=== PATIENT | female | born 1955 | race Asian ===

== ENCOUNTER → 2024-04-26 | Outpatient (CLI) | payer MEDICARE, MEDICAID, SELFPAY ==
--- NOTE | 2024-04-26 14:00 | ECHO_ITS ---
Transthoracic Echo Report Ht (in): 57 Wt (lb): 200 Exam Location: Echo Lab Status: [employer] Compliance Director: Sunshine Garcia Indications: Procedure Performed: BP: / HR: Rhythm: Sinus Technical Quality: Fair MEASUREMENTS (Male / Female) Normal Values 2D ECHO LV Diastolic Diameter PLAX 4.5 cm 4.2 - 5.9 / 3.9 - 5.3 cm LV Systolic Diameter PLAX 3.2 cm IVS Diastolic Thickness 1.2 cm 0.6 - 1.0 / 0.6 - 0.9 cm LVPW Diastolic Thickness 1.2 cm 0.6 - 1.0 / 0.6 - 0.9 cm LV Relative Wall Thickness 0.5 LVOT Diameter 1.9 cm LA Volume Index 25.9 cm?/m? 16 - 28 cm?/m? Ascending Aorta Diameter 3.4 cm M-MODE Aortic Root Diameter MM 3.0 cm LA Systolic Diameter MM 3.6 cm LA Ao Ratio MM 1.2 AV Cusp Separation MM 2.1 cm DOPPLER AV Peak Velocity 183.7 cm/s AV Peak Gradient 13.5 mmHg AV Mean Gradient 7.3 mmHg AV Velocity Time Integral 32.7 cm AI Peak Velocity 349.0 cm/s AI Peak Gradient 48.7 mmHg AI Pressure Half Time 506.0 ms LVOT Peak Velocity 134.0 cm/s LVOT Peak Gradient 7.2 mmHg LVOT Velocity Time Integral 22.3 cm AV Area Cont Eq vti 1.9 cm? AV Area Cont Eq pk 2.1 cm? MV Peak Velocity 189.0 cm/s MV Peak Gradient 14.3 mmHg MV Mean Velocity 114.7 cm/s MV Mean Gradient 6.3 mmHg MV Area PHT 3.5 cm? MR Peak Velocity 458.0 cm/s MR Peak Gradient 83.9 mmHg Mitral E Point Velocity 107.0 cm/s Mitral A Point Velocity 152.0 cm/s Mitral E to A Ratio 0.7 LV E' Lateral Velocity 3.7 cm/s Mitral E to LV E' Lateral Ratio 28.9 LV E' Septal Velocity 4.6 cm/s Mitral E to LV E' Septal Ratio 23.4 TR Peak Velocity 222.5 cm/s TR Peak Gradient 19.8 mmHg FINDINGS Left Ventricle Normal left ventricular size, systolic function with no obvious regional wall motion abnormalities. Mild LVH. The ejection fraction is visually estimated at 60-65%. Right Ventricle The right ventricle is normal in size and systolic function. The estimated right ventricular systoli c pressure, 29mmHg. RAP 5. Left Atrium The left atrium is normal by two-dimensional, color flow and Doppler imaging with no structural abnormalities, no thrombus formation present. Right Atrium The right atrium is normal by two-dimensional imaging, color flow and Doppler imaging with no struct ural abnormalities, no thrombus formation present. Atrial Septum The interatrial septum appears normal with no evidence of a shunt. Aorta The aorta is normal by two-dimensional, color flow and Doppler interrogation. Mitral Valve The mitral valve is moderately MAC. Mild to moderate stenosis, mean gradient 8mmHg. There is mild mi tral valve regurgitation. Aortic Valve The aortic valve is trileaflet. Mild sclerosis without stenosis. There is mild aortic valve regurgit ation. Tricuspid Valve The tricuspid valve is normal by two-dimensional, color flow and Doppler interrogation. There is mil d tricuspid valve regurgitation. Pulmonic Valve There is no significant pulmonic valve regurgitation. Vessels The pulmonary artery appears normal. The inferior vena cava pulmonary and hepatic veins appear rehana l. Pericardium The pericardium is normal by two-dimensional imaging. There is no significant pericardial effusion. CONCLUSIONS Normal LV size and function. Mild LVH. Estimated EF 60-65% Normal RV size and function. Mild to moderate mitral valve stenosis, mean gradient 8mmHg. Moderate MAC. Mild AI, MR, TR. Mild AV sclerosis without stenosis. Bonifacio Bocanegra (Electronically Signed) Final Date: 30 April 2024 10:12
== END | disposition home or self-care (01) ==
LOC: SDIM 05-01 08:37
PROVIDERS: PCP Student in an Organized Health Care Education/Training Program; Referring Provider Student in an Organized Health Care Education/Training Program; Visit Provider Student in an Organized Health Care Education/Training Program
DX: I08.3 Combined rheumatic disorders of mitral, aortic and tricuspid valves (principal)
CPT/HCPCS: 93306

== ENCOUNTER 2024-05-13 04:23 | Inpatient (IN) | payer MEDICARE, MEDICAID, SELFPAY ==
--- NOTE | 2019-06-20 00:02 | XR_ITS ---
Examination: Video esophagram Modified barium swallow 73 spot fluoroscopic soft tissue films of the neck Exam date and time: June 20, 2024 1345 hours INDICATIONS: Coughing with eating, difficulty eating this month TECHNIQUE AND FINDINGS: Barium mixture is administered, thin barium, pudding, cracker barium Reduced oral control Premature transfer Pooling in the vallecular region No pharyngeal penetration or aspiration IMPRESSION: No pharyngeal penetration or aspiration Fluoroscopy 0.1 minute radiation dose 34.04 milligray, 73 spot fluoroscopic films soft tissue lateral of the neck [facility]
[2024-05-13] VITALS (20 sets, daily range): BP systolic 65–150; BP diastolic 38–97; PULSE 67–115; RESP 14–33; TEMP 36.1–37.2; O2SAT 90–100; BMI 33.4
--- NOTE | 2024-05-13 | XR_ITS ---
Examinations: MRI Brain without intravenous contrast. MRA brain without intravenous contrast. MRA carotids without intravenous contrast 3-D vascular reconstructions Date and time of exam: May 13, 2024 1341 hrs. Indication: Patient found unresponsive at 3:00 AM this morning Technique: Multiple axial and sagittal images of the brain have been obtained MRA brain carotid images without contrast obtained, including 3-D postprocessing, vascular maximum intensity projection images Findings: [place] is not enlarged. The optic chiasm and infundibular stalk are not remarkable. Prepontine and interpeduncular cisterns are not enlarged. No localized enlargement of the medulla or jaylin. Fourth ventricle and cerebellar tonsils normal in position. Subacute hemorrhage is not seen. Fourth ventricle is midline. Mass in the cerebellopontine angle region is not evident. 7th and 8th nerve complexes exhibits symmetry. Globes are symmetrical with no retro-orbital mass. Increased white matter signal prominent Diffusion-weighted images demonstrate subtle increased signal in the medulla, axial image 3 although no obvious signal deficit on the corresponding ADC map Mass-effect upon the ventricular system is not identified. MRA carotid images degraded by patient motion. MRA brain images significant stenoses P1 and P2 right posterior cerebral artery segments Impression: Negative for acute hemorrhage mass effect or midline shift Equivocal restricted diffusion brain stem medullary level, diffusion image 3, recommend neurology consultation and correlation with clinical findings Significant stenoses right P1 and P2 segments posterior cerebral artery
--- NOTE | 2024-05-13 04:29 | EKG_ITS ---
[facility] Test Date: 2024-05-13 Pat Name: SALEEM SIMON Department: Room: - Gender: Female [facility]: : 1955 Requested By: Arabella Urban Order Number: [id number] Reading MD: Arabella Urban Measurements Intervals [place] Rate: 102 P: 90 VT: 170 QRS: -29 QRSD: 90 T: 121 QT: 327 QTc: 427 Interpretive Statements SINUS TACHYCARDIA BORDERLINE LEFT AXIS DEVIATION [QRS AXIS < -20] LEFT VENTRICULAR HYPERTROPHY AND ST-T CHANGE [VOLTAGE CRITERIA PLUS ST/T ABNORMALITY] Compared to ECG 11/16/2023 15:12:38 Atrial flutter no longer present ST (T wave) deviation still present /store/S0/[id number].pdf
--- NOTE | 2024-05-13 05:10 | XR_ITS ---
Examination: AP chest single view Technique one AP portable upright chest single view Exam date and time: May 13, 2024 0535 hrs. Indications: Chest pain chills today Findings: Mild enlargement cardiac contour Mild vascular congestion. Suspicious for early pneumonia right base Impression: Suspicious for early pneumonia right base
--- NOTE | 2024-05-13 05:11 | EDNOTE_ITS ---
ED Syncope RME/HPI General Chief Complaint: General Adult/Misc Complain Stated Complaint: GENERAL WEAKNESS Time Seen by Provider: 05/13/24 05:09 Arrival date/time: 05/13/24 04:23 RME / HPI RME / HPI narrative: 69-year-old female patient found by her daughter on the ground to the side of her bed, unable to get up. Daughter called EMS. Son is at bedside. He states the patient has a history of ulcers Related Data Previous Rx's ?Medication ?Instructions ?Recorded amiodarone 200 mg tablet 200 mg PO BID 30 days #60 tabs 06/08/24 apixaban 5 mg tablet (Eliquis) 5 mg PO BID 30 days #60 tabs 06/08/24 dronabinol 5 mg capsule 5 mg PO BID 30 days #60 caps 06/08/24 fluconazole 200 mg tablet 400 mg (2 x 200 mg) PO QDAY 3 days 06/08/24 #6 tabs hydrocodone 5 mg-acetaminophen 325 1 tab PO Q8H PRN pain #14 tabs 06/08/24 mg tablet insulin glargine-yfgn 100 unit/mL 12 unit (0.12 mL) subcut QDAY #15 06/08/24 (3 mL) subcutaneous pen mL midodrine 5 mg tablet 5 mg PO TID 30 days #90 tabs 06/08/24 pantoprazole 40 mg tablet,delayed 40 mg PO BID #60 tabs 06/08/24 release (Protonix) pen needle, diabetic 29 gauge x #100 ea 06/08/24 1/2 (1st Tier Unifine Pentips) Allergies Allergy/AdvReac Type Severity Reaction Status Date / Time No Known Allergies Allergy Verified 05/28/24 22:16 ED Exam Narrative Physical exam: Gen: appears mildly somnolent and confused HEENT: NCAT, PERRL, EOMI CV: s1s1 RRR LUNGS: tachypnea, mild rhonci ABD: soft NT no guarding : deferred EXT: atraumatic, no edema SKIN: normal color, dry NEURO: CN II-XII grossly intact, no focal deficits Course Quality Measures none Orders Category Date Time Status Bedside COVID-19 Antigen Test NOW Care 05/13/24 06:32 Completed Bedside Influenza A&B Antigen Test NOW Care 05/13/24 06:32 Completed COVID-19 Screening Questionnaire NOW Care 05/13/24 10:[address] Screening NOW Care 05/13/24 05:[address] Screening NOW Care 05/13/24 06:31 Completed Pusher Runner NOW Care 05/13/24 05:10 Completed Decision to Admit X1 Care 05/13/24 10:14 Completed EKG (ED ONLY) *Do not use* NOW Care 05/13/24 04:29 Completed Saline [Insert IV] QSHIFT Care 05/13/24 06:30 Active Straight [In and Out Catheter] X1 Care 05/13/24 06:30 Completed Referral Speech Therapy Routine Cons 05/13/24 11:[address] abdomen pelvis w con Stat Exams 05/13/24 06:[address] angio chest Stat Exams 05/13/24 06:[address] cervical spine wo con Stat Exams 05/13/24 06:[address] facial bones wo con Stat Exams 05/13/24 06:[address] head/brain wo con Stat Exams 05/13/24 05:[address] lumbar spine wo con Stat Exams 05/13/24 06:[address] thoracic spine wo con Stat Exams 05/13/24 06:31 Completed EKG (ED Only) Stat Exams 05/13/24 04:29 Draft XR chest 1V portable Stat Exams 05/13/24 05:10 Completed ABG [Arterial Blood Gas] Stat Lab 05/13/24 08:29 Completed Amylase Stat Lab 05/13/24 06:42 Completed B-Type Natriuretic Peptide Stat Lab 05/13/24 05:15 Completed Blood Culture (Lab) Stat Lab 05/13/24 05:15 Completed CBC Stat Lab 05/13/24 05:15 Completed Comprehensive Metabolic Panel Stat Lab 05/13/24 05:15 Completed D-Dimer Stat Lab 05/13/24 06:42 Completed Lactate (Lactic Acid) Stat Lab 05/13/24 06:42 Completed Lactic Acid, 3 HR Stat Lab 05/13/24 10:26 Completed Lipase Stat Lab 05/13/24 05:15 Completed Lipase Stat Lab 05/13/24 06:42 Completed Magnesium Stat Lab 05/13/24 05:15 Completed Partial Thromboplastin Time Stat Lab 05/13/24 05:15 Completed Procalcitonin Stat Lab 05/13/24 05:15 Completed Prothrombin Time with INR Stat Lab 05/13/24 05:15 Completed RSV [Respiratory Syncytial Virus Ag] Stat Lab 05/13/24 08:48 Completed Troponin I Stat Lab 05/13/24 05:15 Completed Type and Screen Stat Lab 05/13/24 05:15 Completed Urinalysis Stat Lab 05/13/24 07:52 Completed Urine Culture Stat Lab 05/13/24 08:47 Completed Azithromycin Inj [Zithromax Inj] 500 mg Med 05/13/24 05:54 Discontinued Sodium Chloride 0.9% 250 ml [Ns] 250 ml IV X1 Insulin Regular Med 05/13/24 07:07 Discontinued 5 unit IV X1 ONE Sodium Chloride 0.9% 1000 ml [Ns] 1,000 ml Med 05/13/24 05:11 Discontinued IV 999 mls/hr cefTRIAXone [Rocephin] 1,000 mg Med 05/13/24 05:54 Discontinued Sodium Chloride 0.9% (P) [Ns 0.9% (P)] 50 ml IV X1 Vital Signs Vital signs: Vital Signs Temperature 97.3 F 05/13/24 04:35 Pulse Rate 104 H 05/13/24 04:35 Respiratory Rate 25 H 05/13/24 04:35 Blood Pressure 87/61 L 05/13/24 04:35 Pulse Oximetry (%) 92 L 05/13/24 04:35 Oxygen Delivery Method Nasal Cannula 05/13/24 04:35 Oxygen Flow Rate 5 05/13/24 04:35 Procedures -ED Phlebotomy Reason for Blood Draw by MD: RN/lab unable and MD to place line Obtained Bloods via: peripheral vein stick Additional Comments: Peripheral line 20g placed in left AC using ultrasound guidance. Tolerated well. No complications. Syncope Patient data External records reviewed:: [facility] previous records Clinical information provided by:: family Social determinants that could affect healthcare access:: none Patient has the following chronic illnesses:: HTN, CKD How is presenting disease/condition affected by chronic disease/condition?: uneffected by Evaluation data The following diagnostics were reviewed and interpreted by me:: lab results, radiology exam(s) and EKG tracing(s) Lab and/or radiology exams considered but not ordered:: none Interpretation Summary: as above Medications / Prescriptions Medications or Prescriptions considered but not ordered:: none Medication administrations:: Medication Administration History Acetaminophen (Acetaminophen 325 Mg Tablet) 650 mg PO Q6HR PRN PRN Reason: Fever >101 and pain 1-3 Stop: 07/09/24 14:10 Hydrocodone Bitart/Acetaminophen (Hydrocodone/Apap 5/325 Tablet) 1 tab PO Q4HR PRN PRN Reason: PAIN SCALE 4-10(Mod-Sev Stop: 06/14/24 14:10 Albuterol/Ipratropium (Albuterol/Ipratropium (Duoneb) Rt Jimena 3 Ml Nebu) 3 ml INH Q2HR PRN PRN Reason: SHORTNESS OF BREATH OR WHEEZE Stop: 06/26/24 18:07 Last Admin: 06/05/24 07:27 Dose: 3 ml Documented By: Admin: 06/05/24 04:32 Dose: 3 ml Documented By: Admin: 06/04/24 00:53 Dose: 3 ml Documented By: Admin: 06/04/24 00:52 Dose: 3 ml Documented By: Admin: 06/03/24 10:08 Dose: 3 ml Documented By: Admin: 06/01/24 21:43 Dose: 3 ml Documented By: Admin: 05/31/24 23:15 Dose: 3 ml Documented By: Admin: 05/31/24 02:02 Dose: 3 ml Documented By: Admin: 05/30/24 20:25 Dose: 3 ml Documented By: Admin: 05/29/24 21:09 Dose: 3 ml Documented By: Admin: 05/29/24 12:08 Dose: 3 ml Documented By: Admin: 05/28/24 09:40 Dose: 3 ml Documented By: OSWALDO Amiodarone HCl (Amiodarone Hcl 200 Mg Tablet) 200 mg PO BID ANGELICA Stop: 06/28/24 14:59 Last Admin: 06/09/24 08:47 Dose: 200 mg Documented By: Admin: 06/08/24 20:48 Dose: 200 mg Documented By: Admin: 06/08/24 11:48 Dose: Not Given Documented By: MICHEAL Non-Admin Reason: at dialysis Admin: 06/07/24 20:45 Dose: 200 mg Documented By: Admin: 06/07/24 09:37 Dose: 200 mg Documented By: Admin: 06/06/24 21:18 Dose: 200 mg Documented By: Admin: 06/06/24 11:54 Dose: 200 mg Documented By: Admin: 06/05/24 21:17 Dose: 200 mg Documented By: Admin: 06/05/24 09:22 Dose: 200 mg Documented By: Admin: 06/04/24 20:34 Dose: 200 mg Documented By: Admin: 06/04/24 09:15 Dose: 200 mg Documented By: Admin: 06/03/24 20:34 Dose: 200 mg Documented By: Admin: 06/03/24 08:59 Dose: Not Given Documented By: VRS Non-Admin Reason: NPO Admin: 06/02/24 20:23 Dose: 200 mg Documented By: Admin: 06/02/24 08:15 Dose: Not Given Documented By: MGD Non-Admin Reason: NPO Admin: 06/01/24 21:27 Dose: 200 mg Documented By: Admin: 06/01/24 12:41 Dose: 200 mg Documented By: Admin: 05/31/24 20:13 Dose: 200 mg Documented By: Admin: 05/31/24 08:49 Dose: 200 mg Documented By: Admin: 05/30/24 20:15 Dose: 200 mg Documented By: Admin: 05/30/24 07:56 Dose: 200 mg Documented By: Admin: 05/29/24 15:47 Dose: Not Given Documented By: DEMETRI Non-Admin Reason: Unable to Swallow Comments: pt lethargic Apixaban (Apixaban 2.5 Mg Tablet) 5 mg PO BID ANGELICA Stop: 07/07/24 08:59 Last Admin: 06/09/24 10:31 Dose: Not Given Documented By: MICHEAL Non-Admin Reason: Held for Procedure Admin: 06/08/24 20:48 Dose: 5 mg Documented By: Admin: 06/08/24 11:49 Dose: Not Given Documented By: MICHEAL Non-Admin Reason: at dialysis Admin: 06/07/24 20:46 Dose: 5 mg Documented By: Admin: 06/07/24 09:36 Dose: 5 mg Documented By: MYLES Benzocaine (Benzocaine/Menthol 1 Lozenge) 1 lozenge PO Q4HR PRN PRN Reason: Sore throat Stop: 06/30/24 11:52 Last Admin: 05/31/24 12:54 Dose: 1 lozenge Documented By: LAURY Dextrose (Dextrose 50%-Water Inj 50 Ml Syringe) 25 ml IV Q15MIN PRN PRN Reason: BG 50-70 responsive npo pt Stop: 06/23/24 15:42 Dextrose (Dextrose 50%-Water Inj 50 Ml Syringe) 50 ml IV Q15MIN PRN PRN Reason: BG <50 OR BG <70 & pt unresponsive Stop: 06/23/24 15:42 Dronabinol (Dronabinol 2.5 Mg Capsule) 5 mg PO BIDAC REPLACED BY [facility] Stop: 07/07/24 10:39 Last Admin: 06/09/24 07:54 Dose: 5 mg Documented By: Admin: 06/08/24 17:06 Dose: 5 mg Documented By: Admin: 06/08/24 11:45 Dose: Not Given Documented By: MICHEAL Non-Admin Reason: went to dialysis Admin: 06/07/24 17:00 Dose: Not Given Documented By: EDNA Non-Admin Reason: Not In Room Admin: 06/07/24 10:49 Dose: 5 mg Documented By: EDNA Fluconazole (Fluconazole 100 Mg Tablet) 200 mg PO QDAY REPLACED BY [facility] Stop: 06/15/24 08:59 Last Admin: 06/09/24 08:47 Dose: 200 mg Documented By: Admin: 06/08/24 12:35 Dose: 200 mg Documented By: MICHEAL Comments: given late,was at dialysis Furosemide (Furosemide Inj 10 Mg/Ml 4ml Vial) 40 mg IVP QDAY REPLACED BY [facility] Stop: 07/09/24 10:14 Last Admin: 06/09/24 11:33 Dose: 40 mg Documented By: MICHEAL Glucagon (Glucagon Inj 1 Mg Vial) 1 mg IM Q15MIN PRN PRN Reason: BG <70, and no IV access Guaifenesin (Guaifenesin Syrup 200 Mg/10 Ml Udc) 200 mg PO QID PRN; Protocol PRN Reason: COUGH OR CONGESTION Stop: 07/08/24 13:50 Last Admin: 06/09/24 05:36 Dose: 200 mg Documented By: Admin: 06/08/24 16:10 Dose: 200 mg Documented By: MICHEAL Heparin Sodium (Porcine) (Heparin Sod Inj 1000 Unit/Ml Vial 10 Ml) 3,500 unit INDWELLCAT PRN PRN PRN Reason: DIALYSIS Stop: 06/21/24 18:05 Last Admin: 06/08/24 12:07 Dose: 3,500 unit Documented By: YOSSI Co-signed By: CS Admin: 06/07/24 18:15 Dose: 3,500 unit Documented By: YOSSI(2) Co-signed By: NENA Albumin Human (Albuminar-25 Ivpb) 25 gm in 100 mls @ 100 mls/hr IV PRN PRN PRN Reason: DIALYSIS Last Admin: 06/08/24 09:04 Dose: 100 mls/hr Documented By: Infusion: 06/07/24 16:18 Dose: Infused Documented By: Admin: 06/07/24 15:18 Dose: 100 mls/hr Documented By: YOSSI(2) Insulin Glargine (Insulin Glargine (Lantus) 5 Unit/0.05 Ml (Per 5 Units)) 12 unit SC QDAY ANGELICA Stop: 06/24/24 08:59 Last Admin: 06/09/24 09:38 Dose: Not Given Documented By: MICHEAL Non-Admin Reason: NPO Admin: 06/08/24 11:48 Dose: Not Given Documented By: MICHEAL Non-Admin Reason: at dialysis Admin: 06/07/24 09:36 Dose: Not Given Documented By: MYLES Non-Admin Reason: Per Protocol Admin: 06/06/24 11:58 Dose: Not Given Documented By: EDNA Non-Admin Reason: low glucose Admin: 06/05/24 09:21 Dose: 12 unit Documented By: MELVI Co-signed By: MARKIE Admin: 06/04/24 09:16 Dose: 12 unit Documented By: SAMUEL Co-signed By: MICHEAL Admin: 06/03/24 09:02 Dose: Not Given Documented By: SAMUEL Non-Admin Reason: NPO Admin: 06/02/24 08:16 Dose: Not Given Documented By: ARIEL Non-Admin Reason: NPO Admin: 06/01/24 12:40 Dose: 12 unit Documented By: ARIEL Co-signed By: DEMETRI Admin: 05/31/24 08:49 Dose: 12 unit Documented By: LAURY Co-signed By: MARKIE Admin: 05/30/24 07:56 Dose: 12 unit Documented By: EDNA Co-signed By: ALLEN Admin: 05/29/24 11:43 Dose: Not Given Documented By: DEMETRI Non-Admin Reason: Held for Procedure Admin: 05/28/24 08:09 Dose: 12 unit Documented By: MALLORY Co-signed By: BRIAN Admin: 05/27/24 08:57 Dose: 12 unit Documented By: DEMETRI Co-signed By: RENNY Admin: 05/26/24 08:59 Dose: 12 unit Documented By: Co-signed By: EMILEE Admin: 05/25/24 11:40 Dose: 12 unit Documented By: HR Co-signed By: kristie Insulin Human Lispro (Insulin Lispro (Admelog) 1 Unit/0.01 Ml Unit) 0 unit SC Q6HR REPLACED BY [facility]; Protocol Stop: 06/23/24 17:59 Last Admin: 06/09/24 14:26 Dose: Not Given Documented By: JRR Non-Admin Reason: Medication Not Available Admin: 06/09/24 05:30 Dose: Not Given Documented By: RC Non-Admin Reason: Per Protocol Admin: 06/09/24 00:26 Dose: Not Given Documented By: RC Non-Admin Reason: Per Protocol Admin: 06/08/24 17:22 Dose: Not Given Documented By: JRR Non-Admin Reason: Per Protocol Admin: 06/08/24 12:29 Dose: Not Given Documented By: JRR Non-Admin Reason: Per Protocol Admin: 06/08/24 05:38 Dose: Not Given Documented By: RC Non-Admin Reason: Per Protocol Admin: 06/08/24 00:02 Dose: Not Given Documented By: RC Non-Admin Reason: Per Protocol Admin: 06/07/24 18:36 Dose: Not Given Documented By: WG Non-Admin Reason: Per Protocol Admin: 06/07/24 11:42 Dose: Not Given Documented By: WG Non-Admin Reason: Per Protocol Admin: 06/07/24 05:19 Dose: Not Given Documented By: WB Non-Admin Reason: Per Protocol Admin: 06/06/24 23:47 Dose: Not Given Documented By: WB Non-Admin Reason: Per Protocol Admin: 06/06/24 21:31 Dose: Not Given Documented By: WB Non-Admin Reason: not documented by day nurse. Admin: 06/06/24 11:57 Dose: Not Given Documented By: WG Non-Admin Reason: low glucose Admin: 06/06/24 05:20 Dose: Not Given Documented By: WB Non-Admin Reason: Per Protocol Admin: 06/05/24 23:56 Dose: Not Given Documented By: WB Non-Admin Reason: Per Protocol Admin: 06/05/24 17:18 Dose: Not Given Documented By: VT Non-Admin Reason: patient not eating Admin: 06/05/24 12:16 Dose: Not Given Documented By: VT Non-Admin Reason: patient no appetite Admin: 06/05/24 05:51 Dose: 2 unit Documented By: CMC Co-signed By: SATISH Admin: 06/04/24 23:29 Dose: Not Given Documented By: CCT Non-Admin Reason: Per Protocol Admin: 06/04/24 17:28 Dose: Not Given Documented By: VRS Non-Admin Reason: Per Protocol Admin: 06/04/24 12:14 Dose: 2 unit Documented By: VRS Co-signed By: ALLEN Admin: 06/04/24 05:44 Dose: 2 unit Documented By: SAMUEL(2) Co-signed By: SATISH Admin: 06/04/24 00:30 Dose: 2 unit Documented By: CP Co-signed By: TANNER Admin: 06/03/24 18:30 Dose: Not Given Documented By: VRS Non-Admin Reason: Per Protocol Admin: 06/03/24 12:12 Dose: 2 unit Documented By: MAGYS Co-signed By: ALLEN Admin: 06/03/24 05:55 Dose: Not Given Documented By: CASPER Non-Admin Reason: Per Protocol Comments: BS 117 Admin: 06/03/24 00:55 Dose: 2 unit Documented By: CASPER Co-signed By: AM Admin: 06/02/24 17:34 Dose: 2 unit Documented By: MGTereso Co-signed By: YENI(2) Admin: 06/02/24 13:53 Dose: Not Given Documented By: MGD Non-Admin Reason: REFUSED TO EAT Admin: 06/02/24 05:43 Dose: Not Given Documented By: WB Non-Admin Reason: Per Protocol Admin: 06/02/24 00:06 Dose: 2 unit Documented By: WB Co-signed By: SS Admin: 06/01/24 17:17 Dose: 2 unit Documented By: MGD Co-signed By: BALAJI Admin: 06/01/24 12:34 Dose: Not Given Documented By: MGD Non-Admin Reason: Per Protocol Admin: 06/01/24 05:22 Dose: 2 unit Documented By: WB Co-signed By: SHINE Admin: 06/01/24 00:26 Dose: Not Given Documented By: WB Non-Admin Reason: Per Protocol Admin: 05/31/24 18:07 Dose: Not Given Documented By: TC Non-Admin Reason: No insulin coverage required. Admin: 05/31/24 11:46 Dose: 2 unit Documented By: TC Co-signed By: SP Admin: 05/31/24 05:58 Dose: 2 unit Documented By: CMC Co-signed By: NL Admin: 05/30/24 23:25 Dose: 2 unit Documented By: DELVIN Co-signed By: TANNER Admin: 05/30/24 16:40 Dose: Not Given Documented By: WG Non-Admin Reason: Per Protocol Admin: 05/30/24 12:02 Dose: Not Given Documented By: WG Non-Admin Reason: poor po intake Admin: 05/30/24 06:30 Dose: Not Given Documented By: CCT Non-Admin Reason: Per Protocol Admin: 05/29/24 23:31 Dose: 2 unit Documented By: CCT Co-signed By: CASPER Admin: 05/29/24 17:22 Dose: Not Given Documented By: DA Non-Admin Reason: Per Protocol Admin: 05/29/24 11:42 Dose: Not Given Documented By: DA Non-Admin Reason: Per Protocol Admin: 05/29/24 06:24 Dose: Not Given Documented By: CTF Non-Admin Reason: Per Protocol Admin: 05/28/24 23:22 Dose: Not Given Documented By: CTF Non-Admin Reason: Per Protocol Admin: 05/28/24 17:17 Dose: Not Given Documented By: MALLORY Non-Admin Reason: Per Protocol Admin: 05/28/24 12:10 Dose: 2 unit Documented By: MALLORY Co-signed By: BF Admin: 05/28/24 05:27 Dose: 2 unit Documented By: PAM Co-signed By: AM Admin: 05/28/24 00:09 Dose: 2 unit Documented By: CG Co-signed By: JESSICA Admin: 05/27/24 18:36 Dose: 2 unit Documented By: MYLES Co-signed By: MICHEAL Admin: 05/27/24 11:45 Dose: 4 unit Documented By: DEMETRI Co-signed By: RENNY Admin: 05/27/24 05:31 Dose: 2 unit Documented By: GALI Co-signed By: BETHANY Admin: 05/26/24 23:53 Dose: 2 unit Documented By: GALI Co-signed By: BETHANY Admin: 05/26/24 17:51 Dose: 4 unit Documented By: Co-signed By: EMILEE Admin: 05/26/24 12:11 Dose: 4 unit Documented By: Co-signed By: KAITLYN Admin: 05/26/24 06:20 Dose: 2 unit Documented By: JAYCEE Co-signed By: RAMU Admin: 05/26/24 00:11 Dose: 4 unit Documented By: JAYCEE Co-signed By: CORBY Admin: 05/25/24 17:46 Dose: Not Given Documented By: Non-Admin Reason: Per Protocol Admin: 05/25/24 11:37 Dose: Not Given Documented By: Non-Admin Reason: Per Protocol Admin: 05/25/24 05:37 Dose: Not Given Documented By: JAYCEE Non-Admin Reason: Per Protocol Admin: 05/25/24 00:50 Dose: Not Given Documented By: JAYCEE Non-Admin Reason: Per Protocol Admin: 05/24/24 18:40 Dose: 4 unit Documented By: ARIEL Co-signed By: NOLBERTO Lidocaine (Lidocaine 5% 1 Patch) 1 patch TOP DAILY PRN PRN Reason: BACK PAIN Stop: 06/29/24 09:15 Last Admin: 06/01/24 19:01 Dose: 1 patch Documented By: ARIEL Midodrine (Midodrine 5 Mg Tablet) 10 mg PO BID REPLACED BY [facility] Stop: 07/07/24 20:59 Last Admin: 06/09/24 08:48 Dose: 10 mg Documented By: Admin: 06/08/24 20:48 Dose: 10 mg Documented By: Admin: 06/08/24 11:49 Dose: Not Given Documented By: MICHEAL Non-Admin Reason: at dialysis Admin: 06/07/24 20:42 Dose: 10 mg Documented By: SATISH Mirtazapine (Mirtazapine 15 Mg Tablet) 15 mg PO QDAY REPLACED BY [facility] Stop: 07/09/24 08:59 Last Admin: 06/09/24 08:48 Dose: 15 mg Documented By: MICHEAL Ondansetron HCl (Ondansetron Inj 2 Mg/Ml Inj 2 Ml) 4 mg IV Q6H PRN; Protocol PRN Reason: NAUSEA OR VOMITING Stop: 06/12/24 11:57 Last Admin: 05/14/24 12:31 Dose: 4 mg Documented By: Admin: 05/14/24 00:02 Dose: 4 mg Documented By: CORBY(2) Pantoprazole Sodium (Pantoprazole Inj 40 Mg Vial) 40 mg IVP BID ANGELICA Stop: 06/14/24 20:59 Last Admin: 06/09/24 08:47 Dose: 40 mg Documented By: Admin: 06/08/24 20:48 Dose: 40 mg Documented By: Admin: 06/08/24 11:49 Dose: Not Given Documented By: MICHEAL Non-Admin Reason: at dialysis Admin: 06/07/24 20:46 Dose: 40 mg Documented By: Admin: 06/07/24 09:37 Dose: 40 mg Documented By: Admin: 06/06/24 21:19 Dose: 40 mg Documented By: Admin: 06/06/24 11:53 Dose: 40 mg Documented By: Admin: 06/05/24 21:18 Dose: 40 mg Documented By: Admin: 06/05/24 09:21 Dose: 40 mg Documented By: Admin: 06/04/24 20:34 Dose: 40 mg Documented By: Admin: 06/04/24 09:15 Dose: 40 mg Documented By: Admin: 06/03/24 20:35 Dose: 40 mg Documented By: Admin: 06/03/24 08:58 Dose: 40 mg Documented By: Admin: 06/02/24 20:23 Dose: 40 mg Documented By: Admin: 06/02/24 08:22 Dose: 40 mg Documented By: Admin: 06/01/24 21:28 Dose: 40 mg Documented By: Admin: 06/01/24 12:42 Dose: 40 mg Documented By: Admin: 05/31/24 20:14 Dose: 40 mg Documented By: Admin: 05/31/24 08:50 Dose: 40 mg Documented By: Admin: 05/30/24 20:16 Dose: 40 mg Documented By: KADa Admin: 05/30/24 08:30 Dose: 40 mg Documented By: Admin: 05/29/24 20:25 Dose: 40 mg Documented By: Admin: 05/29/24 11:53 Dose: 40 mg Documented By: Admin: 05/28/24 22:00 Dose: 40 mg Documented By: Admin: 05/28/24 08:08 Dose: 40 mg Documented By: Admin: 05/27/24 21:17 Dose: 40 mg Documented By: Admin: 05/27/24 08:49 Dose: 40 mg Documented By: Admin: 05/26/24 20:08 Dose: 40 mg Documented By: Admin: 05/26/24 08:53 Dose: 40 mg Documented By: Admin: 05/25/24 21:03 Dose: 40 mg Documented By: Admin: 05/25/24 11:40 Dose: 40 mg Documented By: Admin: 05/24/24 21:32 Dose: 40 mg Documented By: Admin: 05/24/24 08:17 Dose: 40 mg Documented By: Admin: 05/23/24 20:11 Dose: 40 mg Documented By: Admin: 05/23/24 09:17 Dose: 40 mg Documented By: Admin: 05/22/24 20:08 Dose: 40 mg Documented By: Admin: 05/22/24 08:42 Dose: 40 mg Documented By: Admin: 05/21/24 20:48 Dose: 40 mg Documented By: Admin: 05/21/24 08:18 Dose: 40 mg Documented By: Admin: 05/20/24 21:04 Dose: 40 mg Documented By: Admin: 05/20/24 08:20 Dose: 40 mg Documented By: Admin: 05/19/24 20:45 Dose: 40 mg Documented By: Admin: 05/19/24 12:20 Dose: 40 mg Documented By: Comments: Med late due to Pt in HD Admin: 05/18/24 20:23 Dose: 40 mg Documented By: Admin: 05/18/24 08:11 Dose: 40 mg Documented By: Admin: 05/17/24 21:02 Dose: 40 mg Documented By: Admin: 05/17/24 08:22 Dose: 40 mg Documented By: Admin: 05/16/24 21:24 Dose: 40 mg Documented By: Admin: 05/16/24 08:06 Dose: 40 mg Documented By: Admin: 05/15/24 20:17 Dose: 40 mg Documented By: Pharmacy Consult (Pharmacy Renal Dose Adjustment 1 Ea) 1 each XX PRN PRN PRN Reason: CONSULT Stop: 06/15/24 10:26 Polyethylene Glycol (Polyethylene Glycol 17 Gm Packet) 17 gm PO BID ANGELICA Stop: 07/09/24 10:44 Sennosides (Senna Tablet) 1 tab PO QDAY ANGELICA; Protocol Stop: 07/09/24 10:44 Sodium Chloride (Sodium Chloride Rt Jimena 0.9% 3 Ml Nebu) 3 ml INH PRN PRN PRN Reason: SOLN Stop: 06/23/24 18:59 Timolol Maleate (Timolol Op Jimena 0.5% 5 Ml Btl) 1 drop BOTH EYES DAILY ANGELICA Stop: 06/27/24 18:14 Last Admin: 06/09/24 08:48 Dose: 1 drop Documented By: Admin: 06/08/24 12:36 Dose: 1 drop Documented By: MICHEAL Comments: given late,was at dialysis Admin: 06/07/24 09:49 Dose: 1 drop Documented By: Admin: 06/06/24 12:06 Dose: 1 drop Documented By: Admin: 06/05/24 09:22 Dose: 1 drop Documented By: Admin: 06/04/24 09:18 Dose: 1 drop Documented By: Admin: 06/03/24 08:42 Dose: 1 drop Documented By: SAMUEL Comments: BILAT EYES Admin: 06/02/24 08:23 Dose: 1 drop Documented By: Admin: 06/01/24 10:00 Dose: 1 drop Documented By: Admin: 05/31/24 08:50 Dose: 1 drop Documented By: Admin: 05/30/24 10:41 Dose: 1 drop Documented By: Admin: 05/29/24 12:42 Dose: 1 drop Documented By: Admin: 05/28/24 22:10 Dose: Not Given Documented By: CTF Non-Admin Reason: Medication Not Available Comments: received a dose tonight with own med eye drops bottle. Discontinued Medications Acetaminophen (Acetaminophen 325 Mg Tablet) 650 mg PO Q6H PRN PRN Reason: Fever >101.5 Stop: 06/12/24 11:57 Acetaminophen (Acetaminophen 325 Mg Tablet) 650 mg PO Q6H PRN PRN Reason: PAIN SCALE 1-3 (mild Stop: 06/12/24 11:57 Last Admin: 05/13/24 17:59 Dose: 650 mg Documented By: ALEKSANDRA Hydrocodone Bitart/Acetaminophen (Hydrocodone/Apap 5/325 Tablet) 1 tab PO X1 ONE Stop: 05/18/24 15:43 Last Admin: 05/18/24 15:57 Dose: 1 tab Documented By: NOLBERTO Hydrocodone Bitart/Acetaminophen (Hydrocodone/Apap 10/325 Tab) 1 tab PO Q4HR PRN PRN Reason: Pain 4-7 Stop: 05/23/24 18:01 Last Admin: 05/18/24 23:40 Dose: 1 tab Documented By: Admin: 05/18/24 19:35 Dose: 1 tab Documented By: GALI Hydrocodone Bitart/Acetaminophen (Hydrocodone/Apap 5/325 Tablet) 1 tab PO Q4HR PRN PRN Reason: PAIN SCALE 1-3 (mild Stop: 05/24/24 14:43 Last Admin: 05/20/24 04:27 Dose: 1 tab Documented By: Admin: 05/19/24 23:46 Dose: 1 tab Documented By: ALON Hydrocodone Bitart/Acetaminophen (Hydrocodone/Apap 5/325 Tablet) 1 tab PO Q6HR ANGELICA Stop: 06/08/24 11:59 Last Admin: 06/08/24 05:32 Dose: 1 tab Documented By: Admin: 06/07/24 23:59 Dose: 1 tab Documented By: Admin: 06/07/24 18:31 Dose: 1 tab Documented By: Admin: 06/07/24 11:34 Dose: 1 tab Documented By: Admin: 06/07/24 05:19 Dose: 1 tab Documented By: Admin: 06/06/24 23:47 Dose: 1 tab Documented By: Admin: 06/06/24 17:00 Dose: 1 tab Documented By: Admin: 06/06/24 12:04 Dose: Not Given Documented By: EDNA Non-Admin Reason: pt is lethargic at this time. Admin: 06/06/24 05:19 Dose: 1 tab Documented By: Admin: 06/05/24 23:56 Dose: Not Given Documented By: BETHANY Non-Admin Reason: Patient Asleep Comments: family states not give at present. patient resting, no signs of pain. Admin: 06/05/24 17:17 Dose: 1 tab Documented By: Admin: 06/05/24 12:17 Dose: 1 tab Documented By: Admin: 06/05/24 05:52 Dose: 1 tab Documented By: Admin: 06/04/24 23:33 Dose: 1 tab Documented By: Admin: 06/04/24 17:35 Dose: 1 tab Documented By: Admin: 06/04/24 12:15 Dose: 1 tab Documented By: Admin: 06/04/24 05:32 Dose: 1 tab Documented By: SAMUEL(2) Admin: 06/04/24 00:27 Dose: 1 tab Documented By: Admin: 06/03/24 18:38 Dose: 1 tab Documented By: Admin: 06/03/24 12:12 Dose: 1 tab Documented By: SAMUEL Hydrocodone Bitart/Acetaminophen (Hydrocodone/Apap 5/325 Tablet) 1 tab PO X1 ONE Stop: 06/08/24 11:49 Last Admin: 06/08/24 11:55 Dose: 1 tab Documented By: MM Hydrocodone Bitart/Acetaminophen (Hydrocodone/Apap 5/325 Tablet) 1 tab PO X1 ONE Stop: 06/09/24 05:40 Last Admin: 06/09/24 06:07 Dose: 1 tab Documented By: SATISH Albuterol/Ipratropium (Albuterol/Ipratropium (Duoneb) Rt Jimena 3 Ml Nebu) 3 ml INH Q6HRRT PRN PRN Reason: SOB or Wheeze Stop: 06/19/24 12:59 Last Admin: 05/24/24 18:55 Dose: 3 ml Documented By: Admin: 05/24/24 15:04 Dose: 3 ml Documented By: Admin: 05/24/24 08:41 Dose: 3 ml Documented By: Admin: 05/23/24 18:55 Dose: 3 ml Documented By: Admin: 05/22/24 22:35 Dose: 3 ml Documented By: Admin: 05/22/24 08:03 Dose: 3 ml Documented By: Admin: 05/21/24 18:55 Dose: 3 ml Documented By: Admin: 05/20/24 21:14 Dose: 3 ml Documented By: CORINNA Amiodarone HCl (Amiodarone Hcl 200 Mg Tablet) 200 mg PO BID ANGELICA Stop: 06/15/24 11:59 Last Admin: 05/19/24 20:44 Dose: 200 mg Documented By: Admin: 05/19/24 12:18 Dose: 200 mg Documented By: HR Comments: Given late, pt at HD. Admin: 05/18/24 20:24 Dose: 200 mg Documented By: Admin: 05/18/24 08:11 Dose: 200 mg Documented By: Admin: 05/17/24 21:02 Dose: 200 mg Documented By: Admin: 05/17/24 08:33 Dose: Not Given Documented By: AG Non-Admin Reason: HELD PER MD Admin: 05/16/24 21:23 Dose: 200 mg Documented By: Admin: 05/16/24 12:39 Dose: 200 mg Documented By: RENNY Azithromycin (Azithromycin 250 Mg Tablet) 500 mg PO QDAY REPLACED BY [facility] Stop: 05/21/24 08:59 Bumetanide (Bumetanide Inj 0.25 Mg/Ml Vial 4 Ml) 1 mg IVP X1 ONE Stop: 05/13/24 13:11 Last Admin: 05/13/24 15:00 Dose: 1 mg Documented By: CB Alteplase, Recombinant 4 mg/ (Sterile Water 4.4 ml) 0 mg INDWELLCAT X1 ONE Stop: 06/01/24 09:16 Last Admin: 06/01/24 11:23 Dose: 4 each Documented By: MM Dextrose (Dextrose 50%-Water Inj 50 Ml Syringe) 50 ml IV X1 ONE Stop: 05/19/24 08:33 Last Admin: 05/19/24 08:37 Dose: 50 ml Documented By: HR Dextrose (Dextrose 50%-Water Inj 50 Ml Syringe) Confirm Administered Dose 50 ml IV .STK-MED ONE Stop: 05/19/24 08:28 Last Admin: 05/19/24 08:37 Dose: Not Given Documented By: HR Non-Admin Reason: Override Medication Dextrose (Dextrose 50%-Water Inj 50 Ml Syringe) 25 ml IV Q15MIN PRN PRN Reason: BG 50-70 responsive npo pt Stop: 06/22/24 12:13 Dextrose (Dextrose 50%-Water Inj 50 Ml Syringe) 50 ml IV Q15MIN PRN PRN Reason: BG <50 OR BG <70 & pt unresponsive Stop: 06/22/24 12:13 Diphenhydramine HCl (Diphenhydramine Inj 50 Mg/Ml Vial) 12.5 mg IVP X1 ONE Stop: 05/28/24 03:35 Last Admin: 05/28/24 03:43 Dose: 12.5 mg Documented By: CG Epoetin Chang (Epoetin Chang-Epbx Inj 10,000 Unit/Ml Vial (Esrd)) 10,000 unit SC X1 ONE Stop: 05/22/24 09:01 Last Admin: 05/22/24 08:36 Dose: 10,000 unit Documented By: MM(2) Epoetin Chang (Epoetin Chang-Epbx Inj 10,000 Unit/Ml Vial (Esrd)) 10,000 unit SC X1 ONE Stop: 05/29/24 18:01 Epoetin Chang (Epoetin Chang-Epbx Inj 10,000 Unit/Ml Vial (Esrd)) 10,000 unit SC X1 ONE Stop: 05/29/24 11:16 Last Admin: 05/29/24 11:24 Dose: 10,000 unit Documented By: YOSSI(2) Epoetin Chang (Epoetin Chang-Epbx Inj 10,000 Unit/Ml Vial (Non-Esrd)) 10,000 unit SC X1 ONE Stop: 06/01/24 07:35 Last Admin: 06/01/24 11:22 Dose: 10,000 unit Documented By: YOSSI Epoetin Chang (Epoetin Chang-Epbx Inj 10,000 Unit/Ml Vial (Esrd)) 10,000 unit SC X1 ONE Stop: 06/03/24 12:01 Last Admin: 06/03/24 12:49 Dose: 10,000 unit Documented By: SAMUEL Epoetin Chang (Epoetin Chang-Epbx Inj 10,000 Unit/Ml Vial (Esrd)) 10,000 unit SC X1 ONE Stop: 06/08/24 08:48 Last Admin: 06/08/24 11:19 Dose: 10,000 unit Documented By: YOSSI Fentanyl (Fentanyl 25 Mcg Transdermal Patch) 25 mcg TOP X1 ONE; Protocol Stop: 05/26/24 13:21 Last Admin: 05/26/24 13:55 Dose: 25 mcg Documented By: HR Fentanyl Citrate (Fentanyl Cit Inj 50 Mcg/Ml Amp 2ml) Confirm Administered Dose 100 mcg .ROUTE .STK-MED ONE Stop: 05/15/24 07:29 Fentanyl Citrate (Fentanyl Cit Inj 50 Mcg/Ml Amp 2ml) 25 mcg IVP X1 ONE Stop: 05/16/24 11:16 Last Admin: 05/16/24 11:18 Dose: 25 mcg Documented By: RENNY Fentanyl Citrate (Fentanyl Cit Inj 50 Mcg/Ml Amp 2ml) Confirm Administered Dose 100 mcg .ROUTE .STK-MED ONE Stop: 05/16/24 11:11 Last Admin: 05/16/24 11:38 Dose: Not Given Documented By: RENNY Non-Admin Reason: Override Medication Fentanyl Citrate (Fentanyl Cit Inj 50 Mcg/Ml Amp 2ml) 50 mcg IVP X1 ONE Stop: 05/16/24 11:52 Last Admin: 05/16/24 12:04 Dose: Not Given Documented By: RENNY Non-Admin Reason: Cancelled by Provider Fentanyl Citrate (Fentanyl Cit Inj 50 Mcg/Ml Amp 2ml) Confirm Administered Dose 100 mcg .ROUTE .STK-MED ONE Stop: 05/16/24 11:49 Last Admin: 05/16/24 12:04 Dose: Not Given Documented By: RENNY Non-Admin Reason: Cancelled by Provider Fentanyl Citrate (Fentanyl Cit Inj 50 Mcg/Ml Amp 2ml) Confirm Administered Dose 100 mcg .ROUTE .STK-MED ONE Stop: 05/25/24 14:13 Last Admin: 05/25/24 15:30 Dose: Not Given Documented By: ONOFRE Non-Admin Reason: Duplicate Medication on eMAR Fentanyl Citrate (Fentanyl Cit Inj 50 Mcg/Ml Amp 2ml) 50 mcg IVP Q2M PRN PRN Reason: PAIN Stop: 05/25/24 16:40 Last Admin: 05/25/24 14:40 Dose: 50 mcg Documented By: EC Fentanyl Citrate (Fentanyl Cit Inj 50 Mcg/Ml Amp 2ml) 25 mcg IVP Q2HR PRN PRN Reason: Pain 7-10 Stop: 05/31/24 13:59 Last Admin: 05/28/24 08:07 Dose: 25 mcg Documented By: Admin: 05/27/24 21:48 Dose: 25 mcg Documented By: Admin: 05/27/24 09:46 Dose: 25 mcg Documented By: Admin: 05/27/24 07:20 Dose: 25 mcg Documented By: Admin: 05/27/24 00:27 Dose: 25 mcg Documented By: Admin: 05/26/24 21:50 Dose: 25 mcg Documented By: Admin: 05/26/24 18:35 Dose: 25 mcg Documented By: HR Fentanyl Citrate (Fentanyl Cit Inj 50 Mcg/Ml Amp 2ml) 30 mcg IVP Q2HR PRN PRN Reason: Pain 7-10 Stop: 06/05/24 11:53 Last Admin: 06/02/24 21:38 Dose: 30 mcg Documented By: Admin: 06/02/24 08:22 Dose: 30 mcg Documented By: Admin: 06/02/24 04:48 Dose: 30 mcg Documented By: Admin: 06/01/24 14:41 Dose: 30 mcg Documented By: Admin: 06/01/24 05:31 Dose: 30 mcg Documented By: Admin: 06/01/24 03:27 Dose: 30 mcg Documented By: Admin: 05/31/24 22:05 Dose: 30 mcg Documented By: Admin: 05/31/24 09:42 Dose: 30 mcg Documented By: Admin: 05/31/24 04:34 Dose: 30 mcg Documented By: Admin: 05/31/24 01:57 Dose: 30 mcg Documented By: KADa Admin: 05/30/24 20:16 Dose: 30 mcg Documented By: Admin: 05/30/24 16:31 Dose: 30 mcg Documented By: Admin: 05/30/24 14:36 Dose: 30 mcg Documented By: MM(2) Admin: 05/30/24 10:37 Dose: 30 mcg Documented By: Admin: 05/30/24 04:16 Dose: 30 mcg Documented By: Admin: 05/29/24 23:19 Dose: 30 mcg Documented By: Admin: 05/28/24 11:12 Dose: 30 mcg Documented By: [facility] Fentanyl Citrate (Fentanyl Cit Inj 50 Mcg/Ml Amp 2ml) Confirm Administered Dose 100 mcg .ROUTE .STK-MED ONE Stop: 06/02/24 09:42 Last Admin: 06/02/24 12:30 Dose: Not Given Documented By: EC Non-Admin Reason: Duplicate Medication on eMAR Fentanyl Citrate (Fentanyl Cit Inj 50 Mcg/Ml Amp 2ml) 25 mcg IVP Q2M PRN PRN Reason: PAIN Stop: 06/02/24 13:57 Last Admin: 06/02/24 11:57 Dose: 25 mcg Documented By: EC Fentanyl Citrate (Fentanyl Cit Inj 50 Mcg/Ml Amp 2ml) 40 mcg IVP Q2HR PRN PRN Reason: Pain 7-10 Stop: 06/05/24 11:53 Last Admin: 06/03/24 06:28 Dose: 40 mcg Documented By: Admin: 06/03/24 04:11 Dose: 40 mcg Documented By: Admin: 06/03/24 01:38 Dose: 40 mcg Documented By: Admin: 06/02/24 23:38 Dose: 40 mcg Documented By: CASPER Fentanyl Citrate (Fentanyl Cit Inj 50 Mcg/Ml Amp 2ml) 25 mcg IVP Q6H PRN PRN Reason: Pain 7-10 Stop: 06/07/24 23:21 Last Admin: 06/04/24 16:00 Dose: 25 mcg Documented By: Admin: 06/04/24 03:07 Dose: 25 mcg Documented By: Admin: 06/03/24 20:33 Dose: 25 mcg Documented By: Admin: 06/03/24 12:57 Dose: 25 mcg Documented By: VRS Fentanyl Citrate (Fentanyl Cit Inj 50 Mcg/Ml Amp 2ml) Confirm Administered Dose 200 mcg .ROUTE .STK-MED ONE Stop: 06/09/24 13:19 Fluconazole (Fluconazole 100 Mg Tablet) 400 mg PO QDAY ANGELICA Stop: 06/09/24 08:59 Last Admin: 06/07/24 09:36 Dose: 400 mg Documented By: Admin: 06/06/24 11:54 Dose: 400 mg Documented By: EDNA Comments: Patient was in dialysis Admin: 06/05/24 09:22 Dose: 400 mg Documented By: Admin: 06/04/24 09:16 Dose: 400 mg Documented By: Admin: 06/03/24 08:59 Dose: Not Given Documented By: VRS Non-Admin Reason: NPO Admin: 06/02/24 08:15 Dose: Not Given Documented By: MGD Non-Admin Reason: NPO Flumazenil (Flumazenil Inj 0.1 Mg/Ml Vial 10 Ml) Confirm Administered Dose 1 mg .ROUTE .STK-MED ONE Stop: 06/02/24 09:42 Last Admin: 06/02/24 12:30 Dose: Not Given Documented By: EC Non-Admin Reason: Duplicate Medication on eMAR Furosemide (Furosemide Inj 10 Mg/Ml 4ml Vial) 40 mg IVP X1 ONE Stop: 05/15/24 04:56 Last Admin: 05/15/24 07:20 Dose: Not Given Documented By: CORBY(2) Non-Admin Reason: Discontinued Comments: Per MD to discontinue medication, will not administer lasix. Glucagon (Glucagon Inj 1 Mg Vial) 1 mg IM Q15MIN PRN PRN Reason: BG <70, and no IV access Heparin Sodium (Beef Lung) (Heparin Sod Lock Syr 100 Unit/Ml) Confirm Administered Dose 500 unit .ROUTE .STK-MED ONE Stop: 05/22/24 14:15 Last Admin: 05/22/24 15:09 Dose: Not Given Documented By: CU Non-Admin Reason: Override Medication Heparin Sodium (Beef Lung) (Heparin Sod Lock Syr 100 Unit/Ml) 500 unit STFIELD X1 ONE Stop: 05/22/24 14:27 Last Admin: 05/22/24 14:27 Dose: 500 unit Documented By: CU Comments: to sterile field Heparin Sodium (Beef Lung) (Heparin Sod Lock Syr 100 Unit/Ml) Confirm Administered Dose 1,000 unit .ROUTE .STK-MED ONE Stop: 06/02/24 11:41 Last Admin: 06/02/24 12:30 Dose: Not Given Documented By: EC Non-Admin Reason: Duplicate Medication on eMAR Heparin Sodium (Beef Lung) (Heparin Sod Lock Syr 100 Unit/Ml) 500 unit INTRACATH X1 ONE Stop: 06/02/24 11:31 Last Admin: 06/02/24 11:30 Dose: 500 unit Documented By: EC Comments: placed on sterile field Heparin Sodium (Beef Lung) (Heparin Sod Lock Syr 100 Unit/Ml) Confirm Administered Dose 500 unit .ROUTE .STK-MED ONE Stop: 06/09/24 13:50 Heparin Sodium (Porcine) (Heparin Sod Inj 5000 Unit/Ml Vial) 5,000 unit SC Q8HR ANGELICA Stop: 05/27/24 13:59 Last Admin: 05/13/24 21:12 Dose: 5,000 unit Documented By: CORBY(2) Co-signed By: IRAJ Admin: 05/13/24 15:01 Dose: 5,000 unit Documented By: ALEKSANDRA Co-signed By: JALEN Heparin Sodium (Porcine) (Heparin Sod Inj 5000 Unit/Ml Vial) 5,000 unit SC Q8HR ANGELICA Stop: 05/30/24 13:59 Last Admin: 05/23/24 05:49 Dose: 5,000 unit Documented By: ALON Co-signed By: GALI Admin: 05/22/24 22:08 Dose: 5,000 unit Documented By: ALON Co-signed By: GALI Admin: 05/21/24 21:31 Dose: 5,000 unit Documented By: Co-signed By: JAYCEE Admin: 05/21/24 15:16 Dose: 5,000 unit Documented By: MICHEAL Co-signed By: SY Admin: 05/21/24 05:00 Dose: 5,000 unit Documented By: Co-signed By: KELLY Admin: 05/20/24 21:05 Dose: 5,000 unit Documented By: Co-signed By: KELLY Admin: 05/20/24 14:55 Dose: 5,000 unit Documented By: EMILEE Co-signed By: KISHOR Admin: 05/20/24 06:17 Dose: 5,000 unit Documented By: ALON Co-signed By: Admin: 05/19/24 21:31 Dose: 5,000 unit Documented By: ALON Co-signed By: SHINE Admin: 05/19/24 15:16 Dose: 5,000 unit Documented By: Co-signed By: KELLY Admin: 05/19/24 05:01 Dose: 5,000 unit Documented By: GALI Co-signed By: CORBY Admin: 05/18/24 21:12 Dose: 5,000 unit Documented By: GALI Co-signed By: CORBY Admin: 05/18/24 14:38 Dose: 5,000 unit Documented By: GE Co-signed By: ER Admin: 05/18/24 05:02 Dose: 5,000 unit Documented By: GALI Co-signed By: RAMU Admin: 05/17/24 21:02 Dose: 5,000 unit Documented By: GALI Co-signed By: RAMU Admin: 05/17/24 14:42 Dose: Not Given Documented By: AG Non-Admin Reason: Held for Dialysis Admin: 05/17/24 05:46 Dose: 5,000 unit Documented By: RILEY Co-signed By: RAMU Admin: 05/16/24 21:24 Dose: 5,000 unit Documented By: KISHOR Co-signed By: JAYCEE Admin: 05/16/24 13:47 Dose: 5,000 unit Documented By: RENNY Co-signed By: SY Comments: Clarified With MD Ewing about Hgb, Ok to give Heparin Sodium (Porcine) (Heparin Sod Inj 1000 Unit/Ml Vial 10 Ml) 2,500 unit INDWELLCAT PRN PRN PRN Reason: DIALYSIS Stop: 05/31/24 15:51 Last Admin: 05/30/24 16:24 Dose: 2,500 unit Documented By: YOSSI(2) Co-signed By: WG Admin: 05/29/24 11:35 Dose: 2,500 unit Documented By: MM(2) Co-signed By: MYLES Admin: 05/26/24 18:33 Dose: 2,500 unit Documented By: MM(2) Co-signed By: SY Admin: 05/25/24 12:17 Dose: 2,500 unit Documented By: ED Co-signed By: HR Admin: 05/23/24 11:17 Dose: 2,500 unit Documented By: YOSSI Co-signed By: MICHEAL Admin: 05/22/24 11:46 Dose: 2,500 unit Documented By: MM(2) Co-signed By: RENNY Admin: 05/21/24 13:33 Dose: 2,500 unit Documented By: IZZY Co-signed By: MICHEAL Admin: 05/19/24 11:16 Dose: 2,500 unit Documented By: ED Co-signed By: MR Admin: 05/18/24 11:05 Dose: 2,500 unit Documented By: YOSSI Co-signed By: YOSSI(2) Admin: 05/17/24 17:03 Dose: 2,500 unit Documented By: YOSSI Co-signed By: MICHEAL Heparin Sodium (Porcine) (Heparin Sod Inj 5000 Unit/Ml Vial) 2,000 unit IV X1 ONE; Protocol Stop: 05/23/24 18:13 Last Admin: 05/23/24 20:08 Dose: 2,000 unit Documented By: ALON Co-signed By: RH Heparin Sodium (Porcine) (Heparin Sod Inj 5000 Unit/Ml Vial) 2,000 unit IVP X1 ONE Stop: 05/24/24 17:33 Last Admin: 05/24/24 17:41 Dose: 2,000 unit Documented By: ARIEL Co-signed By: AG Heparin Sodium (Porcine) (Heparin Sod Inj 5000 Unit/Ml Vial) 2,400 unit 30 unit/kg (2400 unit) IV X1 ONE; Protocol Stop: 05/30/24 15:26 Last Admin: 05/30/24 16:37 Dose: 2,400 unit Documented By: WG Co-signed By: ALLEN Heparin Sodium (Porcine) (Heparin Sod Inj 1000 Unit/Ml Vial) Confirm Administered Dose 4,000 unit .ROUTE .STK-MED ONE Stop: 06/02/24 11:40 Last Admin: 06/02/24 12:30 Dose: Not Given Documented By: EC Non-Admin Reason: Duplicate Medication on eMAR Heparin Sodium (Porcine) (Heparin Sod Inj 5000 Unit/Ml Vial 10 Ml) 5,000 unit INTRACATH X1 ONE Stop: 06/02/24 11:31 Last Admin: 06/02/24 12:50 Dose: 3,500 unit Documented By: EC Co-signed By: HILARY Comments: 1.8mls in Blue port 1.7mls in Red port Heparin Sodium (Porcine) (Heparin Sod Inj 1000 Unit/Ml Vial 10 Ml) 3,500 unit INDWELLCAT X1 PRN PRN Reason: DIALYSIS Stop: 06/17/24 15:23 Last Admin: 06/06/24 11:13 Dose: 3,500 unit Documented By: MM Co-signed By: LH Admin: 06/03/24 17:59 Dose: 3,500 unit Documented By: ED Co-signed By: JALEEL Heparin Sodium (Porcine) (Heparin Sod Inj 1000 Unit/Ml Vial) Confirm Administered Dose 4,000 unit .ROUTE .STK-MED ONE Stop: 06/09/24 13:50 Hydromorphone HCl (Hydromorphone Inj 2 Mg/Ml Vial) 0.25 mg IVP X1 ONE Stop: 05/14/24 12:46 Last Admin: 05/14/24 13:41 Dose: 0.25 mg Documented By: FABBY Hydromorphone HCl (Hydromorphone Inj 2 Mg/Ml Vial) 0.5 mg IVP Q6HR PRN PRN Reason: PAIN SCALE 7-10 (Severe Stop: 05/19/24 15:34 Last Admin: 05/18/24 14:53 Dose: 0.5 mg Documented By: Admin: 05/15/24 05:10 Dose: 0.5 mg Documented By: CMN(2) Admin: 05/14/24 23:16 Dose: 0.5 mg Documented By: CORBY(2) Admin: 05/14/24 16:00 Dose: 0.5 mg Documented By: FABBY Hydromorphone HCl (Hydromorphone Inj 2 Mg/Ml Vial) 1 mg IVP Q6H PRN PRN Reason: pain 8-10 Stop: 05/23/24 18:01 Last Admin: 05/19/24 02:38 Dose: 1 mg Documented By: Admin: 05/18/24 18:20 Dose: 1 mg Documented By: NOLBERTO Hydromorphone HCl (Hydromorphone Inj 2 Mg/Ml Vial) 0.25 mg IVP Q4HR PRN PRN Reason: PAIN SCALE 4-6 (Moderate Stop: 05/24/24 14:37 Last Admin: 05/19/24 22:11 Dose: 0.25 mg Documented By: ALON Hydromorphone HCl (Hydromorphone Inj 2 Mg/Ml Vial) 0.5 mg IVP Q6H PRN PRN Reason: PAIN SCALE 7-10 (Severe Stop: 05/24/24 14:37 Last Admin: 05/20/24 22:59 Dose: 0.5 mg Documented By: Admin: 05/20/24 02:03 Dose: 0.5 mg Documented By: Admin: 05/19/24 16:57 Dose: 0.5 mg Documented By: DEMETRI Hydromorphone HCl (Hydromorphone Inj 2 Mg/Ml Vial) 0.25 mg IVP Q6H PRN PRN Reason: PAIN SCALE 4-10(Mod-Sev Stop: 05/24/24 14:37 Hydromorphone HCl (Hydromorphone Inj 2 Mg/Ml Vial) 0.25 mg IVP Q6H PRN PRN Reason: PAIN SCALE 4-6 (Moderate Stop: 05/24/24 14:37 Last Admin: 05/24/24 10:37 Dose: 0.25 mg Documented By: ARIEL Hydromorphone HCl (Hydromorphone Inj 2 Mg/Ml Vial) 1 mg IVP Q6H PRN PRN Reason: Pain 4-10 Stop: 05/29/24 15:31 Hydromorphone HCl (Hydromorphone Inj 2 Mg/Ml Vial) 0.25 mg IVP Q6H PRN PRN Reason: Pain 4-10 Stop: 05/29/24 15:31 Last Admin: 05/25/24 18:15 Dose: 0.25 mg Documented By: Admin: 05/25/24 08:04 Dose: 0.25 mg Documented By: HR Hydromorphone HCl (Hydromorphone Inj 2 Mg/Ml Vial) 0.25 mg IVP X1 ONE Stop: 05/27/24 22:37 Last Admin: 05/27/24 22:44 Dose: 0.25 mg Documented By: PAM Hydroxyzine HCl (Hydroxyzine Hcl 25 Mg Tablet) 25 mg PO X1 ONE Stop: 05/15/24 05:38 Last Admin: 05/15/24 06:01 Dose: 25 mg Documented By: CORBY(2) Sodium Chloride (Ns) 1,000 mls @ 999 mls/hr IV .Q1H1M ONE Stop: 05/13/24 06:11 Last Infusion: 05/13/24 06:20 Dose: Infused Documented By: Admin: 05/13/24 05:19 Dose: 999 mls/hr Documented By: Ceftriaxone Sodium 1,000 mg/ (Sodium Chloride) 50 mls @ 100 mls/hr IV X1 ONE Stop: 05/13/24 06:23 Last Infusion: 05/13/24 07:05 Dose: Infused Documented By: Admin: 05/13/24 06:30 Dose: 100 mls/hr Documented By: BELA Azithromycin 500 mg/ Sodium (Chloride) 250 mls @ 250 mls/hr IV X1 ONE Stop: 05/13/24 06:53 Last Infusion: 05/13/24 07:35 Dose: Infused Documented By: Admin: 05/13/24 06:29 Dose: 250 mls/hr Documented By: BELA Ceftriaxone Sodium/Dextrose (Rocephin/D5w 1gm Iv Premix) 50 mls @ 100 mls/hr IV QDAY REPLACED BY [facility] Stop: 05/20/24 12:03 Last Admin: 05/13/24 12:20 Dose: Not Given Documented By: CASSIE Non-Admin Reason: Cancelled by Provider Azithromycin 500 mg/ Sodium (Chloride) 250 mls @ 250 mls/hr IV QDAY ANGELICA Stop: 05/20/24 12:03 Last Admin: 05/13/24 12:20 Dose: Not Given Documented By: CASSIE Non-Admin Reason: Cancelled by Provider Ceftriaxone Sodium/Dextrose (Rocephin/D5w 1gm Iv Premix) 50 mls @ 100 mls/hr IV QDAY ANGELICA Stop: 05/21/24 08:59 Sodium Chloride (Ns) 1,000 mls @ 999 mls/hr IV .Q1H1M ONE Stop: 05/13/24 13:47 Last Infusion: 05/13/24 13:55 Dose: Infused Documented By: Admin: 05/13/24 12:56 Dose: 999 mls/hr Documented By: CASSIE Ceftriaxone Sodium/Dextrose (Rocephin/D5w 1gm Iv Premix) 50 mls @ 100 mls/hr IV QDAY ANGELICA Stop: 05/21/24 08:59 Last Admin: 05/14/24 08:37 Dose: 100 mls/hr Documented By: FABBY Azithromycin 500 mg/ Sodium (Chloride) 250 mls @ 250 mls/hr IV QDAY ANGELICA; Protocol Stop: 05/21/24 08:59 Last Infusion: 05/20/24 10:03 Dose: Infused Documented By: Admin: 05/20/24 08:35 Dose: 250 mls/hr Documented By: Infusion: 05/19/24 13:19 Dose: Infused Documented By: Admin: 05/19/24 12:19 Dose: 250 mls/hr Documented By: Infusion: 05/18/24 09:12 Dose: Infused Documented By: Admin: 05/18/24 08:12 Dose: 250 mls/hr Documented By: Infusion: 05/17/24 09:34 Dose: Infused Documented By: Admin: 05/17/24 08:22 Dose: 250 mls/hr Documented By: Infusion: 05/16/24 21:50 Dose: Infused Documented By: Admin: 05/16/24 08:24 Dose: 250 mls/hr Documented By: Infusion: 05/15/24 14:09 Dose: Infused Documented By: Admin: 05/15/24 13:09 Dose: 250 mls/hr Documented By: kristie Infusion: 05/14/24 11:04 Dose: Infused Documented By: kristie Admin: 05/14/24 10:04 Dose: 250 mls/hr Documented By: FABBY Azithromycin 500 mg/ Sodium (Chloride) 250 mls @ 250 mls/hr IV X1 ONE; Protocol Stop: 05/13/24 14:14 Pantoprazole Sodium (Protonix/Ns 80mg Iv Premix) 80 mg in 100 mls @ 10 mls/hr IV Q10H REPLACED BY [facility] Stop: 05/17/24 06:03 Last Admin: 05/15/24 20:22 Dose: 10 mls/hr Documented By: Infusion: 05/15/24 15:42 Dose: Infused Documented By: Admin: 05/15/24 05:42 Dose: 10 mls/hr Documented By: CORBY(2) Infusion: 05/15/24 03:11 Dose: Infused Documented By: CORBY(2) Admin: 05/14/24 17:11 Dose: 10 mls/hr Documented By: Infusion: 05/14/24 17:11 Dose: Infused Documented By: Admin: 05/14/24 08:37 Dose: 10 mls/hr Documented By: FABBY Potassium Chloride (Kcl Ivpb) 10 meq in 100 mls @ 100 mls/hr IV Q1H REPLACED BY [facility] Stop: 05/14/24 12:46 Last Admin: 05/14/24 11:48 Dose: Not Given Documented By: ALEKSANDRA Non-Admin Reason: Cancelled by Provider Admin: 05/14/24 11:47 Dose: Not Given Documented By: ALEKSANDRA Non-Admin Reason: Cancelled by Provider Admin: 05/14/24 11:47 Dose: Not Given Documented By: ALEKSANDRA Non-Admin Reason: Cancelled by Provider Sodium Chloride (Ns) 500 mls @ 999 mls/hr IV .Q31M ONE Stop: 05/15/24 00:57 Last Infusion: 05/15/24 12:00 Dose: Infused Documented By: kristie Admin: 05/15/24 00:33 Dose: 999 mls/hr Documented By: CORBY(2) Sodium Chloride (Ns) 500 mls @ 999 mls/hr IV .Q31M ONE Stop: 05/15/24 01:49 Last Admin: 05/15/24 01:32 Dose: 999 mls/hr Documented By: CORBY(2) Albumin Human (Albuminar-25 Ivpb) 12.5 gm in 50 mls @ 50 mls/hr IV X1 ONE Stop: 05/15/24 05:56 Last Admin: 05/17/24 02:10 Dose: Not Given Documented By: RILEY Non-Admin Reason: Discontinued Albumin Human (Albuminar-25 Ivpb) 25 gm in 100 mls @ 100 mls/hr IV X1 ONE Stop: 05/15/24 05:59 Last Admin: 05/15/24 07:27 Dose: 100 mls/hr Documented By: CORBY(2) Piperacillin/Tazobactam/Dextrose (Zosyn) 50 mls @ 12.5 mls/hr IV Q8HR ANGELICA; Protocol Stop: 05/22/24 05:59 Last Infusion: 05/16/24 21:00 Dose: Infused Documented By: Admin: 05/16/24 13:46 Dose: 12.5 mls/hr Documented By: Infusion: 05/16/24 09:00 Dose: Infused Documented By: Admin: 05/16/24 05:00 Dose: 12.5 mls/hr Documented By: Infusion: 05/16/24 01:33 Dose: Infused Documented By: Admin: 05/15/24 21:33 Dose: 12.5 mls/hr Documented By: Infusion: 05/15/24 19:47 Dose: Infused Documented By: Admin: 05/15/24 15:47 Dose: 12.5 mls/hr Documented By: kristie Infusion: 05/15/24 10:49 Dose: Infused Documented By: kristie Admin: 05/15/24 06:49 Dose: 12.5 mls/hr Documented By: CORBY(2) Sodium Chloride (Ns) 500 mls @ 999 mls/hr IV .Q31M ONE Stop: 05/15/24 08:12 Last Admin: 05/15/24 07:43 Dose: 999 mls/hr Documented By: CORBY(2) Sodium Chloride (Ns) 1,000 mls @ 999 mls/hr IV .Q1H1M ONE Stop: 05/15/24 08:53 Last Admin: 05/15/24 15:50 Dose: Not Given Documented By: kristie Non-Admin Reason: not given per MS. taken to OR Lactated Ringer's (Lactated Ringers) 1,000 mls @ 999 mls/hr IV .Q1H1M ONE Stop: 05/15/24 11:22 Last Infusion: 05/15/24 11:37 Dose: Infused Documented By: kristie Admin: 05/15/24 10:33 Dose: 999 mls/hr Documented By: kristie Propofol (Diprivan Ivpb) 1,000 mg in 100 mls @ 2.466 mls/hr IV .Q24H PRN; Protocol PRN Reason: PER PROTOCOL Stop: 06/14/24 10:27 Last Titration: 05/18/24 12:00 Dose: 0 mcg/kg/min, 0 mls/hr Documented By: Titration: 05/18/24 11:00 Dose: 5 mcg/kg/min, 2.466 mls/hr Documented By: Titration: 05/18/24 10:00 Dose: 5 mcg/kg/min, 2.466 mls/hr Documented By: Titration: 05/18/24 09:00 Dose: 5 mcg/kg/min, 2.466 mls/hr Documented By: Titration: 05/18/24 08:00 Dose: 5 mcg/kg/min, 2.466 mls/hr Documented By: Titration: 05/18/24 07:30 Dose: 0 mcg/kg/min, 0 mls/hr Documented By: Titration: 05/18/24 07:00 Dose: 5 mcg/kg/min, 2.466 mls/hr Documented By: Titration: 05/18/24 06:00 Dose: 5 mcg/kg/min, 2.466 mls/hr Documented By: SloaneP Admin: 05/18/24 05:00 Dose: 5 mcg/kg/min, 2.466 mls/hr Documented By: GALI Co-signed By: CLT Titration: 05/18/24 05:00 Dose: Infused Documented By: GALI Co-signed By: CLT Titration: 05/18/24 04:00 Dose: 5 mcg/kg/min, 2.466 mls/hr Documented By: Titration: 05/18/24 03:00 Dose: 5 mcg/kg/min, 2.466 mls/hr Documented By: Titration: 05/18/24 02:00 Dose: 5 mcg/kg/min, 2.466 mls/hr Documented By: Titration: 05/18/24 01:00 Dose: 5 mcg/kg/min, 2.466 mls/hr Documented By: Titration: 05/18/24 00:00 Dose: 5 mcg/kg/min, 2.466 mls/hr Documented By: Titration: 05/17/24 23:00 Dose: 5 mcg/kg/min, 2.466 mls/hr Documented By: Titration: 05/17/24 22:00 Dose: 5 mcg/kg/min, 2.466 mls/hr Documented By: Titration: 05/17/24 21:00 Dose: 5 mcg/kg/min, 2.466 mls/hr Documented By: Titration: 05/17/24 20:00 Dose: 5 mcg/kg/min, 2.466 mls/hr Documented By: Titration: 05/17/24 19:00 Dose: 5 mcg/kg/min, 2.466 mls/hr Documented By: Titration: 05/17/24 18:00 Dose: 5 mcg/kg/min, 2.466 mls/hr Documented By: Titration: 05/17/24 17:00 Dose: 5 mcg/kg/min, 2.466 mls/hr Documented By: Titration: 05/17/24 16:00 Dose: 5 mcg/kg/min, 2.466 mls/hr Documented By: Titration: 05/17/24 15:00 Dose: 5 mcg/kg/min, 2.466 mls/hr Documented By: Titration: 05/17/24 14:00 Dose: 5 mcg/kg/min, 2.466 mls/hr Documented By: Titration: 05/17/24 13:00 Dose: 5 mcg/kg/min, 2.466 mls/hr Documented By: Titration: 05/17/24 12:00 Dose: 5 mcg/kg/min, 2.466 mls/hr Documented By: Titration: 05/17/24 11:00 Dose: 5 mcg/kg/min, 2.466 mls/hr Documented By: Titration: 05/17/24 10:31 Dose: 5 mcg/kg/min, 2.466 mls/hr Documented By: Titration: 05/17/24 10:00 Dose: 10 mcg/kg/min, 4.931 mls/hr Documented By: Titration: 05/17/24 09:00 Dose: 10 mcg/kg/min, 4.931 mls/hr Documented By: Titration: 05/17/24 08:00 Dose: 10 mcg/kg/min, 4.931 mls/hr Documented By: Titration: 05/17/24 07:32 Dose: 10 mcg/kg/min, 4.931 mls/hr Documented By: Titration: 05/17/24 07:00 Dose: 15 mcg/kg/min, 7.397 mls/hr Documented By: Titration: 05/17/24 06:00 Dose: 15 mcg/kg/min, 7.397 mls/hr Documented By: Titration: 05/17/24 05:47 Dose: 15 mcg/kg/min, 7.397 mls/hr Documented By: Titration: 05/17/24 05:30 Dose: 10 mcg/kg/min, 4.931 mls/hr Documented By: Titration: 05/17/24 05:00 Dose: 5 mcg/kg/min, 2.466 mls/hr Documented By: Titration: 05/17/24 04:00 Dose: 5 mcg/kg/min, 2.466 mls/hr Documented By: Admin: 05/17/24 03:01 Dose: 5 mcg/kg/min, 2.466 mls/hr Documented By: AT Co-signed By: CLT Titration: 05/17/24 03:01 Dose: Infused Documented By: AT Co-signed By: CLT Titration: 05/16/24 10:27 Dose: 0 mcg/kg/min, 0 mls/hr Documented By: Titration: 05/16/24 10:00 Dose: 10 mcg/kg/min, 4.931 mls/hr Documented By: Titration: 05/16/24 09:00 Dose: 10 mcg/kg/min, 4.931 mls/hr Documented By: Titration: 05/16/24 08:00 Dose: 10 mcg/kg/min, 4.931 mls/hr Documented By: Titration: 05/16/24 07:00 Dose: 10 mcg/kg/min, 4.931 mls/hr Documented By: Admin: 05/16/24 06:13 Dose: 10 mcg/kg/min, 4.931 mls/hr Documented By: Co-signed By: CLT Titration: 05/16/24 06:13 Dose: Infused Documented By: Co-signed By: CLT Titration: 05/16/24 06:00 Dose: 15 mcg/kg/min, 7.397 mls/hr Documented By: Titration: 05/16/24 05:00 Dose: 15 mcg/kg/min, 7.397 mls/hr Documented By: Titration: 05/16/24 04:00 Dose: 15 mcg/kg/min, 7.397 mls/hr Documented By: Titration: 05/16/24 03:00 Dose: 15 mcg/kg/min, 7.397 mls/hr Documented By: Titration: 05/16/24 02:00 Dose: 15 mcg/kg/min, 7.397 mls/hr Documented By: Titration: 05/16/24 01:00 Dose: 15 mcg/kg/min, 7.397 mls/hr Documented By: Titration: 05/16/24 00:00 Dose: 15 mcg/kg/min, 7.397 mls/hr Documented By: Titration: 05/15/24 23:30 Dose: 15 mcg/kg/min, 7.397 mls/hr Documented By: Titration: 05/15/24 23:00 Dose: 10 mcg/kg/min, 4.931 mls/hr Documented By: Titration: 05/15/24 22:00 Dose: 10 mcg/kg/min, 4.931 mls/hr Documented By: Titration: 05/15/24 21:00 Dose: 10 mcg/kg/min, 4.931 mls/hr Documented By: Titration: 05/15/24 20:00 Dose: 10 mcg/kg/min, 4.931 mls/hr Documented By: Titration: 05/15/24 19:00 Dose: 10 mcg/kg/min, 4.931 mls/hr Documented By: Titration: 05/15/24 18:35 Dose: 10 mcg/kg/min, 4.931 mls/hr Documented By: kristie Titration: 05/15/24 18:30 Dose: 5 mcg/kg/min, 2.466 mls/hr Documented By: kristie Titration: 05/15/24 17:30 Dose: 0 mcg/kg/min, 0 mls/hr Documented By: kristie Titration: 05/15/24 17:00 Dose: 5 mcg/kg/min, 2.466 mls/hr Documented By: kristie Admin: 05/15/24 16:43 Dose: 5 mcg/kg/min, 2.466 mls/hr Documented By: kristie Co-signed By: AG Fentanyl Citrate (Sublimaze Inj 2,500 Mcg/250 Ml Bag) 2,500 mcg in 250 mls @ 2.5 mls/hr IV .Q24H PRN; Protocol PRN Reason: PER PROTOCOL Stop: 05/20/24 10:27 Last Titration: 05/18/24 12:29 Dose: 0 mcg/hr, 0 mls/hr Documented By: Titration: 05/18/24 12:00 Dose: 25 mcg/hr, 2.5 mls/hr Documented By: Titration: 05/18/24 11:00 Dose: 25 mcg/hr, 2.5 mls/hr Documented By: Titration: 05/18/24 10:00 Dose: 25 mcg/hr, 2.5 mls/hr Documented By: Titration: 05/18/24 09:00 Dose: 25 mcg/hr, 2.5 mls/hr Documented By: Titration: 05/18/24 08:00 Dose: 25 mcg/hr, 2.5 mls/hr Documented By: Titration: 05/18/24 07:00 Dose: 25 mcg/hr, 2.5 mls/hr Documented By: Titration: 05/18/24 06:00 Dose: 25 mcg/hr, 2.5 mls/hr Documented By: Titration: 05/18/24 05:00 Dose: 25 mcg/hr, 2.5 mls/hr Documented By: Titration: 05/18/24 04:00 Dose: 25 mcg/hr, 2.5 mls/hr Documented By: Titration: 05/18/24 03:00 Dose: 25 mcg/hr, 2.5 mls/hr Documented By: Titration: 05/18/24 02:00 Dose: 25 mcg/hr, 2.5 mls/hr Documented By: Titration: 05/18/24 01:00 Dose: 25 mcg/hr, 2.5 mls/hr Documented By: Titration: 05/18/24 00:00 Dose: 25 mcg/hr, 2.5 mls/hr Documented By: Titration: 05/17/24 23:00 Dose: 25 mcg/hr, 2.5 mls/hr Documented By: Titration: 05/17/24 22:00 Dose: 25 mcg/hr, 2.5 mls/hr Documented By: Titration: 05/17/24 21:00 Dose: 25 mcg/hr, 2.5 mls/hr Documented By: Titration: 05/17/24 20:00 Dose: 25 mcg/hr, 2.5 mls/hr Documented By: Titration: 05/17/24 19:00 Dose: 25 mcg/hr, 2.5 mls/hr Documented By: Titration: 05/17/24 18:00 Dose: 25 mcg/hr, 2.5 mls/hr Documented By: Titration: 05/17/24 17:00 Dose: 25 mcg/hr, 2.5 mls/hr Documented By: Titration: 05/17/24 16:00 Dose: 25 mcg/hr, 2.5 mls/hr Documented By: Titration: 05/17/24 15:00 Dose: 25 mcg/hr, 2.5 mls/hr Documented By: Titration: 05/17/24 14:00 Dose: 25 mcg/hr, 2.5 mls/hr Documented By: Titration: 05/17/24 13:00 Dose: 25 mcg/hr, 2.5 mls/hr Documented By: Titration: 05/17/24 12:00 Dose: 25 mcg/hr, 2.5 mls/hr Documented By: Titration: 05/17/24 11:06 Dose: 25 mcg/hr, 2.5 mls/hr Documented By: Titration: 05/17/24 11:00 Dose: 75 mcg/hr, 7.5 mls/hr Documented By: Titration: 05/17/24 10:31 Dose: 75 mcg/hr, 7.5 mls/hr Documented By: Titration: 05/17/24 10:00 Dose: 125 mcg/hr, 12.5 mls/hr Documented By: Titration: 05/17/24 09:34 Dose: 125 mcg/hr, 12.5 mls/hr Documented By: Titration: 05/17/24 09:00 Dose: 175 mcg/hr, 17.5 mls/hr Documented By: Titration: 05/17/24 08:21 Dose: 175 mcg/hr, 17.5 mls/hr Documented By: Titration: 05/17/24 08:00 Dose: 225 mcg/hr, 22.5 mls/hr Documented By: Titration: 05/17/24 07:32 Dose: 225 mcg/hr, 22.5 mls/hr Documented By: Titration: 05/17/24 07:00 Dose: 275 mcg/hr, 27.5 mls/hr Documented By: Titration: 05/17/24 06:00 Dose: 275 mcg/hr, 27.5 mls/hr Documented By: Titration: 05/17/24 05:00 Dose: 275 mcg/hr, 27.5 mls/hr Documented By: Admin: 05/17/24 04:23 Dose: 275 mcg/hr, 27.5 mls/hr Documented By: CLT Co-signed By: JAYCEE Titration: 05/17/24 04:23 Dose: Infused Documented By: CLT Co-signed By: JAYCEE Titration: 05/17/24 04:00 Dose: 275 mcg/hr, 27.5 mls/hr Documented By: CLT Co-signed By: JAYCEE Titration: 05/17/24 03:00 Dose: 275 mcg/hr, 27.5 mls/hr Documented By: Titration: 05/17/24 02:36 Dose: 275 mcg/hr, 27.5 mls/hr Documented By: Titration: 05/17/24 02:00 Dose: 225 mcg/hr, 22.5 mls/hr Documented By: Titration: 05/17/24 01:00 Dose: 225 mcg/hr, 22.5 mls/hr Documented By: Titration: 05/17/24 00:00 Dose: 225 mcg/hr, 22.5 mls/hr Documented By: Titration: 05/16/24 23:00 Dose: 225 mcg/hr, 22.5 mls/hr Documented By: Titration: 05/16/24 22:00 Dose: 225 mcg/hr, 22.5 mls/hr Documented By: Titration: 05/16/24 21:00 Dose: 225 mcg/hr, 22.5 mls/hr Documented By: Titration: 05/16/24 20:00 Dose: 225 mcg/hr, 22.5 mls/hr Documented By: Titration: 05/16/24 19:00 Dose: 225 mcg/hr, 22.5 mls/hr Documented By: Admin: 05/16/24 18:00 Dose: 225 mcg/hr, 22.5 mls/hr Documented By: KR Co-signed By: JRR Titration: 05/16/24 18:00 Dose: Infused Documented By: RENNY Co-signed By: JRR Titration: 05/16/24 17:00 Dose: 225 mcg/hr, 22.5 mls/hr Documented By: Titration: 05/16/24 16:00 Dose: 225 mcg/hr, 22.5 mls/hr Documented By: Titration: 05/16/24 15:00 Dose: 225 mcg/hr, 22.5 mls/hr Documented By: Titration: 05/16/24 14:00 Dose: 225 mcg/hr, 22.5 mls/hr Documented By: Titration: 05/16/24 13:00 Dose: 125 mcg/hr, 12.5 mls/hr Documented By: Titration: 05/16/24 12:00 Dose: 75 mcg/hr, 7.5 mls/hr Documented By: Titration: 05/16/24 11:18 Dose: 25 mcg/hr, 2.5 mls/hr Documented By: Titration: 05/16/24 11:00 Dose: 75 mcg/hr, 7.5 mls/hr Documented By: Titration: 05/16/24 10:00 Dose: 75 mcg/hr, 7.5 mls/hr Documented By: Titration: 05/16/24 09:00 Dose: 75 mcg/hr, 7.5 mls/hr Documented By: Titration: 05/16/24 08:00 Dose: 75 mcg/hr, 7.5 mls/hr Documented By: Titration: 05/16/24 07:00 Dose: 75 mcg/hr, 7.5 mls/hr Documented By: Titration: 05/16/24 06:00 Dose: 75 mcg/hr, 7.5 mls/hr Documented By: Titration: 05/16/24 05:00 Dose: 75 mcg/hr, 7.5 mls/hr Documented By: Titration: 05/16/24 04:00 Dose: 75 mcg/hr, 7.5 mls/hr Documented By: Titration: 05/16/24 03:00 Dose: 75 mcg/hr, 7.5 mls/hr Documented By: Titration: 05/16/24 02:00 Dose: 75 mcg/hr, 7.5 mls/hr Documented By: Titration: 05/16/24 01:00 Dose: 75 mcg/hr, 7.5 mls/hr Documented By: Titration: 05/16/24 00:00 Dose: 75 mcg/hr, 7.5 mls/hr Documented By: Titration: 05/15/24 23:00 Dose: 75 mcg/hr, 7.5 mls/hr Documented By: Titration: 05/15/24 22:00 Dose: 75 mcg/hr, 7.5 mls/hr Documented By: Titration: 05/15/24 21:00 Dose: 75 mcg/hr, 7.5 mls/hr Documented By: Titration: 05/15/24 20:20 Dose: 75 mcg/hr, 7.5 mls/hr Documented By: Titration: 05/15/24 20:00 Dose: 25 mcg/hr, 2.5 mls/hr Documented By: Titration: 05/15/24 19:00 Dose: 25 mcg/hr, 2.5 mls/hr Documented By: Titration: 05/15/24 18:26 Dose: 25 mcg/hr, 2.5 mls/hr Documented By: kristie Titration: 05/15/24 18:00 Dose: 0 mcg/hr, 0 mls/hr Documented By: kristie Titration: 05/15/24 17:30 Dose: 25 mcg/hr, 2.5 mls/hr Documented By: kristie Titration: 05/15/24 17:00 Dose: 75 mcg/hr, 7.5 mls/hr Documented By: kristie Titration: 05/15/24 16:59 Dose: 75 mcg/hr, 7.5 mls/hr Documented By: kristie Admin: 05/15/24 16:43 Dose: 25 mcg/hr, 2.5 mls/hr Documented By: kristie Co-signed By: EMILEE Norepinephrine Bitartrate (Levophed In Ns 16mg/250ml) 16 mg in 250 mls @ 3.853 mls/hr IV .Q24H PRN; Protocol PRN Reason: PER protocol Stop: 06/14/24 10:28 Last Titration: 05/18/24 06:00 Dose: 0 mcg/kg/min, 0 mls/hr Documented By: Titration: 05/18/24 05:00 Dose: 0.01 mcg/kg/min, 0.771 mls/hr Documented By: Titration: 05/18/24 04:00 Dose: 0.03 mcg/kg/min, 2.312 mls/hr Documented By: Titration: 05/18/24 03:00 Dose: 0.03 mcg/kg/min, 2.312 mls/hr Documented By: Titration: 05/18/24 02:30 Dose: 0.03 mcg/kg/min, 2.312 mls/hr Documented By: Titration: 05/18/24 02:00 Dose: 0.05 mcg/kg/min, 3.853 mls/hr Documented By: Titration: 05/18/24 01:45 Dose: 0.07 mcg/kg/min, 5.394 mls/hr Documented By: Admin: 05/18/24 01:40 Dose: 0.05 mcg/kg/min, 3.853 mls/hr Documented By: Titration: 05/18/24 01:40 Dose: Infused Documented By: Titration: 05/17/24 21:00 Dose: 0 mcg/kg/min, 0 mls/hr Documented By: Titration: 05/17/24 20:00 Dose: 0.02 mcg/kg/min, 1.541 mls/hr Documented By: Titration: 05/17/24 19:00 Dose: 0.02 mcg/kg/min, 1.541 mls/hr Documented By: Titration: 05/17/24 18:00 Dose: 0.02 mcg/kg/min, 1.541 mls/hr Documented By: Titration: 05/17/24 17:25 Dose: 0.02 mcg/kg/min, 1.541 mls/hr Documented By: Titration: 05/17/24 17:00 Dose: 0.04 mcg/kg/min, 3.082 mls/hr Documented By: Titration: 05/17/24 16:00 Dose: 0.04 mcg/kg/min, 3.082 mls/hr Documented By: Titration: 05/17/24 15:00 Dose: 0.04 mcg/kg/min, 3.082 mls/hr Documented By: Titration: 05/17/24 14:00 Dose: 0.04 mcg/kg/min, 3.082 mls/hr Documented By: Titration: 05/17/24 13:58 Dose: 0.04 mcg/kg/min, 3.082 mls/hr Documented By: Titration: 05/17/24 13:00 Dose: 0.06 mcg/kg/min, 4.623 mls/hr Documented By: Titration: 05/17/24 12:00 Dose: 0.06 mcg/kg/min, 4.623 mls/hr Documented By: Titration: 05/17/24 11:18 Dose: 0.06 mcg/kg/min, 4.623 mls/hr Documented By: Titration: 05/17/24 11:00 Dose: 0.08 mcg/kg/min, 6.164 mls/hr Documented By: Titration: 05/17/24 10:00 Dose: 0.08 mcg/kg/min, 6.164 mls/hr Documented By: Titration: 05/17/24 09:00 Dose: 0.08 mcg/kg/min, 6.164 mls/hr Documented By: Titration: 05/17/24 08:00 Dose: 0.08 mcg/kg/min, 6.164 mls/hr Documented By: Titration: 05/17/24 07:00 Dose: 0.06 mcg/kg/min, 4.623 mls/hr Documented By: Titration: 05/17/24 06:23 Dose: 0.06 mcg/kg/min, 4.623 mls/hr Documented By: Titration: 05/17/24 06:00 Dose: 0.08 mcg/kg/min, 6.164 mls/hr Documented By: Titration: 05/17/24 05:30 Dose: 0.08 mcg/kg/min, 6.164 mls/hr Documented By: Titration: 05/17/24 05:00 Dose: 0.1 mcg/kg/min, 7.705 mls/hr Documented By: Titration: 05/17/24 04:00 Dose: 0.1 mcg/kg/min, 7.705 mls/hr Documented By: Titration: 05/17/24 03:26 Dose: 0.1 mcg/kg/min, 7.705 mls/hr Documented By: Titration: 05/17/24 03:00 Dose: 0.08 mcg/kg/min, 6.164 mls/hr Documented By: Titration: 05/17/24 02:56 Dose: 0.08 mcg/kg/min, 6.164 mls/hr Documented By: Titration: 05/17/24 02:36 Dose: 0.1 mcg/kg/min, 7.705 mls/hr Documented By: Titration: 05/17/24 02:00 Dose: 0.12 mcg/kg/min, 9.246 mls/hr Documented By: Titration: 05/17/24 01:52 Dose: 0.12 mcg/kg/min, 9.246 mls/hr Documented By: Titration: 05/17/24 01:00 Dose: 0.14 mcg/kg/min, 10.788 mls/hr Documented By: Titration: 05/17/24 00:00 Dose: 0.14 mcg/kg/min, 10.788 mls/hr Documented By: Titration: 05/16/24 23:30 Dose: 0.14 mcg/kg/min, 10.788 mls/hr Documented By: Titration: 05/16/24 23:00 Dose: 0.16 mcg/kg/min, 12.329 mls/hr Documented By: Titration: 05/16/24 22:00 Dose: 0.18 mcg/kg/min, 13.87 mls/hr Documented By: Titration: 05/16/24 21:24 Dose: 0.18 mcg/kg/min, 13.87 mls/hr Documented By: Titration: 05/16/24 21:00 Dose: 0.2 mcg/kg/min, 15.411 mls/hr Documented By: Titration: 05/16/24 20:20 Dose: 0.2 mcg/kg/min, 15.411 mls/hr Documented By: Titration: 05/16/24 20:00 Dose: 0.22 mcg/kg/min, 16.952 mls/hr Documented By: Titration: 05/16/24 19:40 Dose: 0.22 mcg/kg/min, 16.952 mls/hr Documented By: Titration: 05/16/24 19:00 Dose: 0.24 mcg/kg/min, 18.493 mls/hr Documented By: Admin: 05/16/24 18:00 Dose: 0.26 mcg/kg/min, 20.034 mls/hr Documented By: Titration: 05/16/24 17:00 Dose: Infused Documented By: Titration: 05/16/24 16:00 Dose: Infused Documented By: Titration: 05/16/24 15:00 Dose: 0.28 mcg/kg/min, 21.575 mls/hr Documented By: Titration: 05/16/24 14:00 Dose: 0.3 mcg/kg/min, 23.116 mls/hr Documented By: Titration: 05/16/24 13:00 Dose: 0.3 mcg/kg/min, 23.116 mls/hr Documented By: Titration: 05/16/24 12:00 Dose: 0.3 mcg/kg/min, 23.116 mls/hr Documented By: Titration: 05/16/24 11:31 Dose: 0.3 mcg/kg/min, 23.116 mls/hr Documented By: Titration: 05/16/24 11:16 Dose: 0.24 mcg/kg/min, 18.493 mls/hr Documented By: Titration: 05/16/24 11:00 Dose: 0.16 mcg/kg/min, 12.329 mls/hr Documented By: Titration: 05/16/24 10:15 Dose: 0.16 mcg/kg/min, 12.329 mls/hr Documented By: Titration: 05/16/24 10:00 Dose: 0.18 mcg/kg/min, 13.87 mls/hr Documented By: Titration: 05/16/24 09:00 Dose: 0.18 mcg/kg/min, 13.87 mls/hr Documented By: Titration: 05/16/24 08:30 Dose: 0.18 mcg/kg/min, 13.87 mls/hr Documented By: Titration: 05/16/24 08:00 Dose: 0.16 mcg/kg/min, 12.329 mls/hr Documented By: Titration: 05/16/24 07:45 Dose: 0.18 mcg/kg/min, 13.87 mls/hr Documented By: Titration: 05/16/24 07:15 Dose: 0.2 mcg/kg/min, 15.411 mls/hr Documented By: Titration: 05/16/24 07:00 Dose: 0.22 mcg/kg/min, 16.952 mls/hr Documented By: Titration: 05/16/24 06:00 Dose: 0.22 mcg/kg/min, 16.952 mls/hr Documented By: Titration: 05/16/24 05:00 Dose: 0.24 mcg/kg/min, 18.493 mls/hr Documented By: Titration: 05/16/24 04:48 Dose: 0.24 mcg/kg/min, 18.493 mls/hr Documented By: Titration: 05/16/24 04:36 Dose: 0.26 mcg/kg/min, 20.034 mls/hr Documented By: Titration: 05/16/24 04:21 Dose: 0.28 mcg/kg/min, 21.575 mls/hr Documented By: Titration: 05/16/24 04:00 Dose: 0.3 mcg/kg/min, 23.116 mls/hr Documented By: Titration: 05/16/24 03:20 Dose: 0.3 mcg/kg/min, 23.116 mls/hr Documented By: Titration: 05/16/24 03:00 Dose: 0.32 mcg/kg/min, 24.657 mls/hr Documented By: Admin: 05/16/24 02:42 Dose: 0.32 mcg/kg/min, 24.657 mls/hr Documented By: Titration: 05/16/24 02:42 Dose: Infused Documented By: Titration: 05/16/24 02:00 Dose: 0.32 mcg/kg/min, 24.657 mls/hr Documented By: Titration: 05/16/24 01:00 Dose: 0.3 mcg/kg/min, 23.116 mls/hr Documented By: Titration: 05/16/24 00:00 Dose: 0.3 mcg/kg/min, 23.116 mls/hr Documented By: Titration: 05/15/24 23:00 Dose: 0.3 mcg/kg/min, 23.116 mls/hr Documented By: Titration: 05/15/24 22:00 Dose: 0.3 mcg/kg/min, 23.116 mls/hr Documented By: Titration: 05/15/24 21:00 Dose: 0.3 mcg/kg/min, 23.116 mls/hr Documented By: Titration: 05/15/24 20:00 Dose: 0.3 mcg/kg/min, 23.116 mls/hr Documented By: Titration: 05/15/24 19:30 Dose: 0.3 mcg/kg/min, 23.116 mls/hr Documented By: Titration: 05/15/24 19:00 Dose: 0.28 mcg/kg/min, 21.575 mls/hr Documented By: Titration: 05/15/24 18:26 Dose: 0.28 mcg/kg/min, 21.575 mls/hr Documented By: kristie Titration: 05/15/24 18:07 Dose: 0.3 mcg/kg/min, 23.116 mls/hr Documented By: kristie Titration: 05/15/24 18:06 Dose: 0.25 mcg/kg/min, 19.264 mls/hr Documented By: kristie Titration: 05/15/24 18:00 Dose: 0.21 mcg/kg/min, 16.181 mls/hr Documented By: kristie Titration: 05/15/24 17:55 Dose: 0.21 mcg/kg/min, 16.181 mls/hr Documented By: kristie Titration: 05/15/24 17:45 Dose: 0.19 mcg/kg/min, 14.64 mls/hr Documented By: kristie Titration: 05/15/24 17:40 Dose: 0.17 mcg/kg/min, 13.099 mls/hr Documented By: kristie Titration: 05/15/24 17:30 Dose: 0.15 mcg/kg/min, 11.558 mls/hr Documented By: kristie Titration: 05/15/24 17:12 Dose: 0.13 mcg/kg/min, 10.017 mls/hr Documented By: kristie Titration: 05/15/24 17:00 Dose: 0.11 mcg/kg/min, 8.476 mls/hr Documented By: kristie Titration: 05/15/24 16:52 Dose: 0.11 mcg/kg/min, 8.476 mls/hr Documented By: kristie Titration: 05/15/24 16:17 Dose: 0.09 mcg/kg/min, 6.935 mls/hr Documented By: kristie Titration: 05/15/24 16:00 Dose: 0.07 mcg/kg/min, 5.394 mls/hr Documented By: kristie Titration: 05/15/24 15:00 Dose: 0.07 mcg/kg/min, 5.394 mls/hr Documented By: kristie Titration: 05/15/24 14:15 Dose: 0.07 mcg/kg/min, 5.394 mls/hr Documented By: kristie Titration: 05/15/24 14:00 Dose: 0.05 mcg/kg/min, 3.853 mls/hr Documented By: kristie Titration: 05/15/24 13:00 Dose: 0.03 mcg/kg/min, 2.312 mls/hr Documented By: kristie Titration: 05/15/24 12:51 Dose: 0.03 mcg/kg/min, 2.312 mls/hr Documented By: kristie Titration: 05/15/24 12:00 Dose: 0.05 mcg/kg/min, 3.853 mls/hr Documented By: kristie Titration: 05/15/24 11:32 Dose: 0.07 mcg/kg/min, 5.394 mls/hr Documented By: kristie Admin: 05/15/24 11:09 Dose: 0.05 mcg/kg/min, 3.853 mls/hr Documented By: kristie Vasopressin/Sodium Chloride (Vasostrict/Ns Ivpb) 20 unit in 100 mls @ 9 mls/hr IV .Q11H7M PRN; Protocol PRN Reason: PER PROTOCOL Stop: 06/14/24 17:55 Last Titration: 05/17/24 22:30 Dose: 0 unit/min, 0 mls/hr Documented By: Titration: 05/17/24 22:00 Dose: 0.01 unit/min, 3 mls/hr Documented By: Titration: 05/17/24 21:30 Dose: 0.02 unit/min, 6 mls/hr Documented By: Admin: 05/17/24 14:59 Dose: 0.03 unit/min, 9 mls/hr Documented By: Titration: 05/17/24 14:52 Dose: Infused Documented By: Admin: 05/17/24 03:45 Dose: 0.03 unit/min, 9 mls/hr Documented By: Titration: 05/17/24 03:45 Dose: Infused Documented By: Admin: 05/16/24 16:05 Dose: 0.03 unit/min, 9 mls/hr Documented By: Titration: 05/16/24 13:43 Dose: Infused Documented By: Admin: 05/16/24 02:36 Dose: 0.03 unit/min, 9 mls/hr Documented By: Titration: 05/16/24 02:36 Dose: Infused Documented By: Admin: 05/15/24 18:10 Dose: 0.03 unit/min, 9 mls/hr Documented By: kristie Vasopressin/Sodium Chloride (Vasostrict/Ns Ivpb) Confirm Administered Dose 20 unit in 100 mls @ ud IV .STK-MED ONE Stop: 05/15/24 18:04 Last Admin: 05/15/24 18:22 Dose: Not Given Documented By: kristie Non-Admin Reason: Duplicate Medication on eMAR Magnesium Sulfate (Magnesium Sulfate Ivpb) 2 gm in 50 mls @ 25 mls/hr IV X1 ONE Stop: 05/16/24 13:25 Last Infusion: 05/16/24 21:50 Dose: Infused Documented By: Admin: 05/16/24 12:17 Dose: 25 mls/hr Documented By: RENNY Amiodarone HCl/Dextrose (Nexterone Ivpb) 150 mg in 100 mls @ 600 mls/hr IV .Q10M ONE Stop: 05/16/24 11:37 Last Infusion: 05/17/24 07:32 Dose: Infused Documented By: Admin: 05/16/24 11:35 Dose: 600 mls/hr Documented By: RENNY Amiodarone HCl/Dextrose (Nexterone Ivpb) 360 mg in 200 mls @ 33.333 mls/hr IV .Q6H ONE Stop: 05/16/24 17:26 Last Infusion: 05/16/24 21:50 Dose: Infused Documented By: Admin: 05/16/24 11:44 Dose: 33.333 mls/hr Documented By: RENNY Amiodarone HCl/Dextrose (Nexterone Ivpb) 360 mg in 200 mls @ 16.667 mls/hr IV .Q12H ANGELICA Stop: 05/17/24 17:25 Last Infusion: 05/17/24 18:05 Dose: Infused Documented By: Admin: 05/17/24 05:47 Dose: 16.667 mls/hr Documented By: Infusion: 05/17/24 05:47 Dose: Infused Documented By: Admin: 05/16/24 17:47 Dose: 16.667 mls/hr Documented By: RENNY Amiodarone HCl/Dextrose (Nexterone Ivpb) Confirm Administered Dose 150 mg in 100 mls @ ud IV .STK-MED ONE Stop: 05/16/24 11:27 Last Admin: 05/16/24 11:39 Dose: Not Given Documented By: RENNY Non-Admin Reason: Override Medication Piperacillin Sod/Tazobactam (Sod 4.5 gm/ Sodium Chloride) 100 mls @ 200 mls/hr IV Q12HR ANGELICA Stop: 05/23/24 21:59 Last Admin: 05/18/24 19:18 Dose: Not Given Documented By: GALI Non-Admin Reason: Discontinued Infusion: 05/17/24 21:35 Dose: Infused Documented By: Admin: 05/17/24 21:03 Dose: 200 mls/hr Documented By: Infusion: 05/17/24 09:07 Dose: Infused Documented By: Admin: 05/17/24 08:23 Dose: 200 mls/hr Documented By: Infusion: 05/17/24 07:00 Dose: Infused Documented By: Admin: 05/16/24 21:24 Dose: 200 mls/hr Documented By: AT Albumin Human (Albuminar-25 Ivpb) 25 gm in 100 mls @ 100 mls/min IV PRN PRN PRN Reason: DIALYSIS Stop: 05/20/24 15:51 Last Infusion: 05/20/24 08:50 Dose: Infused Documented By: Admin: 05/19/24 09:18 Dose: 100 mls/min Documented By: Infusion: 05/19/24 08:49 Dose: Infused Documented By: Admin: 05/19/24 08:48 Dose: 100 mls/min Documented By: ED Piperacillin Sod/Tazobactam (Sod 4.5 gm/ Sodium Chloride) 100 mls @ 200 mls/hr IV Q12HR ANGELICA Stop: 05/25/24 14:14 Piperacillin Sod/Tazobactam (Sod 4.5 gm/ Sodium Chloride) 100 mls @ 200 mls/hr IV Q12HR ANGELICA Stop: 05/25/24 14:29 Last Infusion: 05/20/24 10:03 Dose: Infused Documented By: Admin: 05/20/24 08:20 Dose: 200 mls/hr Documented By: Infusion: 05/19/24 21:15 Dose: Infused Documented By: Admin: 05/19/24 20:45 Dose: 200 mls/hr Documented By: Infusion: 05/19/24 12:49 Dose: Infused Documented By: Admin: 05/19/24 12:19 Dose: 200 mls/hr Documented By: Infusion: 05/18/24 20:53 Dose: Infused Documented By: Admin: 05/18/24 20:23 Dose: 200 mls/hr Documented By: Infusion: 05/18/24 15:08 Dose: Infused Documented By: Admin: 05/18/24 14:38 Dose: 200 mls/hr Documented By: NOLBERTO Norepinephrine/Dextrose (Levophed In D5w 8mg/250ml) 8 mg in 250 mls @ 7.866 mls/hr IV .Q24H PRN; Protocol PRN Reason: PER PROTOCOL Stop: 06/18/24 09:31 Last Titration: 05/20/24 09:00 Dose: Infused Documented By: Titration: 05/19/24 13:02 Dose: 0.01 mcg/kg/min, 1.573 mls/hr Documented By: Titration: 05/19/24 12:48 Dose: 0.03 mcg/kg/min, 4.719 mls/hr Documented By: Titration: 05/19/24 11:46 Dose: 0.05 mcg/kg/min, 7.866 mls/hr Documented By: Titration: 05/19/24 10:16 Dose: 0.07 mcg/kg/min, 11.012 mls/hr Documented By: Admin: 05/19/24 09:35 Dose: 0.05 mcg/kg/min, 7.866 mls/hr Documented By: HR Norepinephrine/Dextrose (Levophed In D5w 8mg/250ml) Confirm Administered Dose 8 mg in 250 mls @ ud IV .STK-MED ONE Stop: 05/19/24 09:27 Last Admin: 05/19/24 12:20 Dose: Not Given Documented By: HR Non-Admin Reason: Override Medication Acetaminophen (Ofirmev Inj) 1,000 mg in 100 mls @ 250 mls/hr IV Q6HR REPLACED BY [facility] Stop: 05/20/24 12:23 Last Admin: 05/19/24 15:15 Dose: Not Given Documented By: MR Non-Admin Reason: Discontinued Amiodarone HCl/Dextrose (Nexterone Ivpb) 150 mg in 100 mls @ 600 mls/hr IV .Q10M ONE Stop: 05/20/24 05:46 Last Infusion: 05/20/24 07:04 Dose: Infused Documented By: Admin: 05/20/24 05:40 Dose: 600 mls/hr Documented By: ALON Amiodarone HCl/Dextrose (Nexterone Ivpb) 360 mg in 200 mls @ 33.333 mls/hr IV .Q6H ONE Stop: 05/20/24 11:36 Last Admin: 05/20/24 07:04 Dose: Not Given Documented By: AG Non-Admin Reason: Discontinued Amiodarone HCl/Dextrose (Nexterone Ivpb) 360 mg in 200 mls @ 16.667 mls/hr IV .Q12H ANGELICA Stop: 05/21/24 05:36 Last Admin: 05/20/24 07:04 Dose: Not Given Documented By: EMILEE Non-Admin Reason: Discontinued Sodium Chloride (Ns) 1,000 mls @ 999 mls/hr IV .Q1H1M ONE Stop: 05/20/24 06:38 Last Infusion: 05/20/24 06:28 Dose: 0 mls/hr Documented By: Admin: 05/20/24 06:13 Dose: 999 mls/hr Documented By: ALON Amiodarone HCl/Dextrose (Nexterone Ivpb) Confirm Administered Dose 150 mg in 100 mls @ ud IV .STK-MED ONE Stop: 05/20/24 05:34 Last Admin: 05/20/24 06:28 Dose: Not Given Documented By: ALON Non-Admin Reason: Duplicate Medication on eMAR Amiodarone HCl/Dextrose (Nexterone Ivpb) 360 mg in 200 mls @ 33.333 mls/hr IV .Q6H ONE Stop: 05/20/24 11:59 Last Infusion: 05/20/24 11:57 Dose: Infused Documented By: Infusion: 05/20/24 11:50 Dose: 33.333 mls/hr Documented By: Admin: 05/20/24 05:50 Dose: 33.333 mls/hr Documented By: ALON Norepinephrine/Dextrose (Levophed In D5w 8mg/250ml) Confirm Administered Dose 8 mg in 250 mls @ ud IV .STK-MED ONE Stop: 05/20/24 05:51 Last Admin: 05/20/24 06:35 Dose: Not Given Documented By: Non-Admin Reason: stock med Amiodarone HCl/Dextrose (Nexterone Ivpb) 360 mg in 200 mls @ 16.667 mls/hr IV .Q12H ANGELICA Stop: 05/21/24 11:59 Last Admin: 05/21/24 00:09 Dose: 16.667 mls/hr Documented By: Infusion: 05/21/24 00:02 Dose: Infused Documented By: Admin: 05/20/24 12:02 Dose: 16.667 mls/hr Documented By: EMILEE Norepinephrine/Dextrose (Levophed In D5w 8mg/250ml) 8 mg in 250 mls @ 33.586 mls/hr IV .Q7H27M PRN; Protocol PRN Reason: PER PROTOCOL Stop: 06/19/24 06:33 Last Titration: 05/20/24 08:35 Dose: 0 mcg/kg/min, 0 mls/hr Documented By: Admin: 05/20/24 06:15 Dose: 0.03 mcg/kg/min, 20.151 mls/hr Documented By: Norepinephrine/Dextrose (Levophed In D5w 8mg/250ml) 8 mg in 250 mls @ 7.35 mls/hr IV .Q24H PRN; Protocol PRN Reason: PER PROTOCOL Stop: 06/19/24 06:55 Last Titration: 05/20/24 18:00 Dose: 0.07 mcg/kg/min, 10.29 mls/hr Documented By: Titration: 05/20/24 17:00 Dose: 0.07 mcg/kg/min, 10.29 mls/hr Documented By: Titration: 05/20/24 16:00 Dose: 0.07 mcg/kg/min, 10.29 mls/hr Documented By: Titration: 05/20/24 15:39 Dose: 0.05 mcg/kg/min, 7.35 mls/hr Documented By: Titration: 05/20/24 15:00 Dose: 0.03 mcg/kg/min, 4.41 mls/hr Documented By: Titration: 05/20/24 14:00 Dose: 0.03 mcg/kg/min, 4.41 mls/hr Documented By: Titration: 05/20/24 13:00 Dose: 0.03 mcg/kg/min, 4.41 mls/hr Documented By: Titration: 05/20/24 12:00 Dose: 0.03 mcg/kg/min, 4.41 mls/hr Documented By: Titration: 05/20/24 11:00 Dose: 0.03 mcg/kg/min, 4.41 mls/hr Documented By: Titration: 05/20/24 10:00 Dose: 0.05 mcg/kg/min, 7.35 mls/hr Documented By: Titration: 05/20/24 09:00 Dose: 0.05 mcg/kg/min, 7.35 mls/hr Documented By: Titration: 05/20/24 08:00 Dose: 0.05 mcg/kg/min, 7.35 mls/hr Documented By: Titration: 05/20/24 07:00 Dose: 0.05 mcg/kg/min, 7.35 mls/hr Documented By: Titration: 05/20/24 06:45 Dose: 0.05 mcg/kg/min, 7.35 mls/hr Documented By: Admin: 05/20/24 06:15 Dose: 0.03 mcg/kg/min, 4.41 mls/hr Documented By: Piperacillin/Tazobactam/Dextrose (Zosyn) 50 mls @ 12.5 mls/hr IV Q8HR ANGELICA Stop: 05/27/24 13:59 Last Admin: 05/25/24 09:39 Dose: Not Given Documented By: HR Non-Admin Reason: Discontinued Admin: 05/21/24 05:00 Dose: 12.5 mls/hr Documented By: Infusion: 05/21/24 01:04 Dose: Infused Documented By: Admin: 05/20/24 21:04 Dose: 12.5 mls/hr Documented By: Infusion: 05/20/24 19:03 Dose: Infused Documented By: Admin: 05/20/24 14:55 Dose: 12.5 mls/hr Documented By: EMILEE Fluconazole (Diflucan/Ns Ivpb) 100 mls @ 100 mls/hr IV QDAY@1400 ANGELICA Stop: 06/03/24 13:59 Last Admin: 05/28/24 14:05 Dose: 100 mls/hr Documented By: Infusion: 05/27/24 15:20 Dose: Infused Documented By: Admin: 05/27/24 14:20 Dose: 100 mls/hr Documented By: Infusion: 05/26/24 14:55 Dose: Infused Documented By: Admin: 05/26/24 13:55 Dose: 100 mls/hr Documented By: Infusion: 05/25/24 17:15 Dose: Infused Documented By: Admin: 05/25/24 16:15 Dose: 100 mls/hr Documented By: Infusion: 05/24/24 15:04 Dose: Infused Documented By: Admin: 05/24/24 14:04 Dose: 100 mls/hr Documented By: Infusion: 05/23/24 14:39 Dose: Infused Documented By: Admin: 05/23/24 13:39 Dose: 100 mls/hr Documented By: Infusion: 05/22/24 16:12 Dose: Infused Documented By: Admin: 05/22/24 15:12 Dose: 100 mls/hr Documented By: Infusion: 05/21/24 16:16 Dose: Infused Documented By: Admin: 05/21/24 15:16 Dose: 100 mls/hr Documented By: MICHEAL Fluconazole (Diflucan/Ns Ivpb) 400 mg in 200 mls @ 100 mls/hr IV X1 ONE Stop: 05/20/24 17:44 Last Infusion: 05/20/24 18:14 Dose: Infused Documented By: Admin: 05/20/24 16:07 Dose: 100 mls/hr Documented By: EMILEE Norepinephrine/Dextrose (Levophed In D5w 8mg/250ml) 8 mg in 250 mls @ 7.35 mls/hr IV .Q24H PRN; Protocol PRN Reason: PER PROTOCOL Stop: 06/19/24 06:55 Last Titration: 05/24/24 12:39 Dose: 0 mcg/kg/min, 0 mls/hr Documented By: Titration: 05/24/24 12:32 Dose: 0.01 mcg/kg/min, 1.47 mls/hr Documented By: Titration: 05/24/24 12:18 Dose: 0.03 mcg/kg/min, 4.41 mls/hr Documented By: Titration: 05/24/24 11:49 Dose: 0.05 mcg/kg/min, 7.35 mls/hr Documented By: Titration: 05/24/24 11:22 Dose: 0.07 mcg/kg/min, 10.29 mls/hr Documented By: Titration: 05/24/24 10:51 Dose: 0.05 mcg/kg/min, 7.35 mls/hr Documented By: Titration: 05/23/24 20:26 Dose: 0 mcg/kg/min, 0 mls/hr Documented By: Titration: 05/23/24 20:00 Dose: 0.01 mcg/kg/min, 1.47 mls/hr Documented By: Titration: 05/23/24 19:00 Dose: 0.03 mcg/kg/min, 4.41 mls/hr Documented By: Titration: 05/23/24 18:56 Dose: 0.03 mcg/kg/min, 4.41 mls/hr Documented By: Titration: 05/23/24 18:00 Dose: 0.03 mcg/kg/min, 4.41 mls/hr Documented By: Titration: 05/23/24 17:00 Dose: 0.03 mcg/kg/min, 4.41 mls/hr Documented By: Titration: 05/23/24 16:00 Dose: 0.03 mcg/kg/min, 4.41 mls/hr Documented By: Titration: 05/23/24 15:00 Dose: 0.03 mcg/kg/min, 4.41 mls/hr Documented By: Titration: 05/23/24 14:00 Dose: 0.03 mcg/kg/min, 4.41 mls/hr Documented By: Titration: 05/23/24 13:49 Dose: 0.03 mcg/kg/min, 4.41 mls/hr Documented By: Titration: 05/23/24 13:23 Dose: 0.05 mcg/kg/min, 7.35 mls/hr Documented By: Titration: 05/23/24 13:00 Dose: 0.07 mcg/kg/min, 10.29 mls/hr Documented By: Titration: 05/23/24 12:53 Dose: 0.07 mcg/kg/min, 10.29 mls/hr Documented By: Titration: 05/23/24 12:00 Dose: 0.09 mcg/kg/min, 13.23 mls/hr Documented By: Titration: 05/23/24 11:00 Dose: 0.09 mcg/kg/min, 13.23 mls/hr Documented By: Titration: 05/23/24 10:37 Dose: 0.09 mcg/kg/min, 13.23 mls/hr Documented By: Titration: 05/23/24 10:34 Dose: 0.09 mcg/kg/min, 13.23 mls/hr Documented By: Titration: 05/23/24 10:00 Dose: 0.07 mcg/kg/min, 10.29 mls/hr Documented By: Titration: 05/23/24 09:56 Dose: 0.07 mcg/kg/min, 10.29 mls/hr Documented By: Titration: 05/23/24 09:16 Dose: 0.07 mcg/kg/min, 10.29 mls/hr Documented By: Titration: 05/23/24 09:00 Dose: 0.05 mcg/kg/min, 7.35 mls/hr Documented By: Admin: 05/23/24 08:10 Dose: 0.05 mcg/kg/min, 7.35 mls/hr Documented By: Titration: 05/23/24 08:10 Dose: Infused Documented By: Titration: 05/22/24 13:24 Dose: 0 mcg/kg/min, 0 mls/hr Documented By: Titration: 05/22/24 13:12 Dose: 0.01 mcg/kg/min, 1.47 mls/hr Documented By: Titration: 05/22/24 12:31 Dose: 0.03 mcg/kg/min, 4.41 mls/hr Documented By: Titration: 05/22/24 12:00 Dose: 0.05 mcg/kg/min, 7.35 mls/hr Documented By: Titration: 05/22/24 11:00 Dose: 0.05 mcg/kg/min, 7.35 mls/hr Documented By: Titration: 05/22/24 10:00 Dose: 0.05 mcg/kg/min, 7.35 mls/hr Documented By: Titration: 05/22/24 09:47 Dose: 0.05 mcg/kg/min, 7.35 mls/hr Documented By: Titration: 05/22/24 09:00 Dose: 0.05 mcg/kg/min, 7.35 mls/hr Documented By: Admin: 05/22/24 08:58 Dose: 0.05 mcg/kg/min, 7.35 mls/hr Documented By: Titration: 05/22/24 08:58 Dose: Infused Documented By: Titration: 05/20/24 20:15 Dose: 0 mcg/kg/min, 0 mls/hr Documented By: Titration: 05/20/24 20:00 Dose: 0.01 mcg/kg/min, 1.47 mls/hr Documented By: Titration: 05/20/24 19:31 Dose: 0.01 mcg/kg/min, 1.47 mls/hr Documented By: Titration: 05/20/24 19:19 Dose: 0.03 mcg/kg/min, 4.41 mls/hr Documented By: Admin: 05/20/24 19:00 Dose: 0.05 mcg/kg/min, 7.35 mls/hr Documented By: Albumin Human (Albuminar-25 Ivpb) 25 gm in 100 mls @ 100 mls/min IV PRN PRN PRN Reason: DIALYSIS Last Admin: 05/25/24 09:23 Dose: 100 mls/min Documented By: Infusion: 05/23/24 08:53 Dose: Infused Documented By: Admin: 05/23/24 08:52 Dose: 100 mls/min Documented By: Infusion: 05/22/24 08:33 Dose: Infused Documented By: Admin: 05/22/24 08:32 Dose: 100 mls/min Documented By: MM(2) Piperacillin/Tazobactam/Dextrose (Zosyn) 50 mls @ 12.5 mls/hr IV Q12HR ANGELICA Stop: 05/27/24 13:59 Last Admin: 05/25/24 10:52 Dose: Not Given Documented By: HR Non-Admin Reason: Discontinued Admin: 05/24/24 21:32 Dose: 12.5 mls/hr Documented By: Infusion: 05/24/24 12:17 Dose: Infused Documented By: Admin: 05/24/24 08:17 Dose: 12.5 mls/hr Documented By: Infusion: 05/24/24 00:12 Dose: Infused Documented By: Admin: 05/23/24 20:12 Dose: 12.5 mls/hr Documented By: Infusion: 05/23/24 16:32 Dose: Infused Documented By: Admin: 05/23/24 12:32 Dose: 12.5 mls/hr Documented By: JRStephanie Infusion: 05/23/24 00:09 Dose: Infused Documented By: Admin: 05/22/24 20:09 Dose: 12.5 mls/hr Documented By: Infusion: 05/22/24 16:14 Dose: Infused Documented By: Admin: 05/22/24 12:14 Dose: 12.5 mls/hr Documented By: MGTereso Infusion: 05/22/24 00:50 Dose: Infused Documented By: Admin: 05/21/24 20:48 Dose: 12.5 mls/hr Documented By: Dextrose (D10w 1000 Ml) 1,000 mls @ 25 mls/hr IV .Q24H ANGELICA Stop: 05/22/24 12:59 Last Admin: 05/21/24 15:31 Dose: 25 mls/hr Documented By: MICHEAL Amiodarone HCl/Dextrose (Nexterone Ivpb) 360 mg in 200 mls @ 16.667 mls/hr IV .Q12H ANGELICA Stop: 05/22/24 16:14 Last Admin: 05/22/24 04:14 Dose: 16.667 mls/hr Documented By: Infusion: 05/22/24 04:14 Dose: Infused Documented By: Admin: 05/21/24 16:30 Dose: 16.667 mls/hr Documented By: MICHEAL Amiodarone HCl/Dextrose (Nexterone Ivpb) 150 mg in 100 mls @ 600 mls/hr IV .Q10M ONE Stop: 05/22/24 09:09 Last Admin: 05/22/24 09:47 Dose: 600 mls/hr Documented By: ARIEL Fat Emulsion-[place] Oil/Soybean Oil (Clinopid 20% Iv) 500 mls @ 32 mls/hr IV MoWeFr ANGELICA Stop: 06/21/24 17:59 Last Infusion: 05/24/24 20:00 Dose: 0 mls/hr Documented By: Admin: 05/24/24 18:27 Dose: 32 mls/hr Documented By: Infusion: 05/23/24 09:33 Dose: Infused Documented By: Admin: 05/22/24 17:55 Dose: 32 mls/hr Documented By: MGTereso Thiamine HCl 100 mg/ Amino (Acids) 1,001 mls @ 30 mls/hr IV X1 ONE Stop: 05/23/24 17:59 Last Admin: 05/22/24 15:05 Dose: 30 mls/hr Documented By: MGD Acetaminophen (Ofirmev Inj) 1,000 mg in 100 mls @ 250 mls/hr IV Q6H ANGELICA Stop: 05/23/24 11:39 Last Admin: 05/23/24 10:46 Dose: 250 mls/hr Documented By: Infusion: 05/23/24 06:13 Dose: Infused Documented By: Admin: 05/23/24 05:49 Dose: 250 mls/hr Documented By: Infusion: 05/22/24 22:44 Dose: Infused Documented By: Admin: 05/22/24 22:20 Dose: 250 mls/hr Documented By: Infusion: 05/22/24 18:00 Dose: Infused Documented By: Admin: 05/22/24 17:36 Dose: 250 mls/hr Documented By: MGD Amiodarone HCl/Dextrose (Nexterone Ivpb) 360 mg in 200 mls @ 16.667 mls/hr IV .Q12H ANGELICA Stop: 05/23/24 17:35 Last Admin: 05/23/24 07:00 Dose: 16.667 mls/hr Documented By: Infusion: 05/23/24 05:48 Dose: Infused Documented By: Admin: 05/22/24 17:48 Dose: 16.667 mls/hr Documented By: MGD Thiamine HCl 100 mg/ Potassium (Chloride 20 meq/ Amino Acids) 2,011 mls @ 50 mls/hr IV QDAY@1800 ANGELICA Stop: 05/24/24 17:59 Last Infusion: 05/24/24 20:00 Dose: 0 mls/hr Documented By: Admin: 05/23/24 18:37 Dose: 50 mls/hr Documented By: MICHEAL Heparin Sodium/Dextrose (Heparin In D5w Ivpb) 25,000 unit in 250 mls @ 10.212 mls/hr IV .Q24H ANGELICA; Protocol Stop: 06/06/24 18:14 Last Titration: 06/02/24 00:00 Dose: 0 units/kg/hr, 0 mls/hr Documented By: BETHANY Co-signed By: Titration: 06/01/24 23:00 Dose: 12 units/kg/hr, 10.212 mls/hr Documented By: WB Co-signed By: SA Admin: 06/01/24 21:27 Dose: 12 units/kg/hr, 10.212 mls/hr Documented By: WB Co-signed By: SS Titration: 06/01/24 21:27 Dose: Infused Documented By: WB Co-signed By: SS Titration: 06/01/24 15:56 Dose: 12 units/kg/hr, 10.212 mls/hr Documented By: MGD Co-signed By: BR Titration: 06/01/24 07:36 Dose: 12 units/kg/hr, 10.212 mls/hr Documented By: MGD Co-signed By: BALAJI Titration: 06/01/24 07:34 Dose: 12 units/kg/hr, 10.212 mls/hr Documented By: MGD Co-signed By: BALAJI Admin: 05/31/24 19:56 Dose: 12 units/kg/hr, 10.212 mls/hr Documented By: WB Co-signed By: (2) Titration: 05/31/24 19:56 Dose: Infused Documented By: WB Co-signed By: SA(2) Titration: 05/31/24 13:26 Dose: 12 units/kg/hr, 10.212 mls/hr Documented By: TC Co-signed By: AG Titration: 05/31/24 06:35 Dose: 12 units/kg/hr, 10.212 mls/hr Documented By: CMC Co-signed By: NL Titration: 05/30/24 23:58 Dose: 12 units/kg/hr, 10.212 mls/hr Documented By: DELVIN Co-signed By: NL Admin: 05/30/24 16:39 Dose: 11.99 units/kg/hr, 10.2 mls/hr Documented By: EDNA Co-signed By: BM Titration: 05/30/24 16:39 Dose: Infused Documented By: EDNA Co-signed By: BM Titration: 05/28/24 18:28 Dose: 0 units/kg/hr, 0 mls/hr Documented By: MALLORY Co-signed By: MGD Admin: 05/28/24 08:30 Dose: 12 units/kg/hr, 10.212 mls/hr Documented By: SLNaa Co-signed By: MGD Titration: 05/28/24 03:36 Dose: Infused Documented By: SLH Co-signed By: MGD Titration: 05/27/24 07:44 Dose: 12 units/kg/hr, 10.212 mls/hr Documented By: DEMETRI Co-signed By: MGD Admin: 05/27/24 03:07 Dose: 12 units/kg/hr, 10.212 mls/hr Documented By: GALI Co-signed By: GG Titration: 05/27/24 03:07 Dose: Infused Documented By: ZP Co-signed By: GG Titration: 05/26/24 08:00 Dose: 12 units/kg/hr, 10.212 mls/hr Documented By: HR Co-signed By: AG Admin: 05/26/24 02:10 Dose: 12 units/kg/hr, 10.212 mls/hr Documented By: JAYCEE Co-signed By: CMN Titration: 05/25/24 23:34 Dose: Infused Documented By: JAYCEE Co-signed By: CMN Titration: 05/25/24 17:30 Dose: 12 units/kg/hr, 10.212 mls/hr Documented By: HR Co-signed By: kristie Titration: 05/25/24 12:00 Dose: 0 units/kg/hr, 0 mls/hr Documented By: HR Co-signed By: GE Titration: 05/25/24 08:00 Dose: 12 units/kg/hr, 10.212 mls/hr Documented By: HR Co-signed By: GE Titration: 05/25/24 00:40 Dose: 12 units/kg/hr, 10.212 mls/hr Documented By: JAYCEE Co-signed By: AD Admin: 05/24/24 18:35 Dose: 14 units/kg/hr, 11.914 mls/hr Documented By: MGD Co-signed By: AG Titration: 05/24/24 18:35 Dose: Infused Documented By: MGD Co-signed By: AG Titration: 05/24/24 17:34 Dose: 14 units/kg/hr, 11.914 mls/hr Documented By: MGD Co-signed By: kristie Titration: 05/24/24 09:43 Dose: 12 units/kg/hr, 10.212 mls/hr Documented By: MGD Co-signed By: AG Admin: 05/23/24 20:11 Dose: 12 units/kg/hr, 10.212 mls/hr Documented By: ALON Co-signed By: RH Amiodarone HCl/Dextrose (Nexterone Ivpb) 360 mg in 200 mls @ 33.333 mls/hr IV .Q6H ONE Stop: 05/24/24 16:20 Last Admin: 05/24/24 10:41 Dose: 33.333 mls/hr Documented By: MGD Amiodarone HCl/Dextrose (Nexterone Ivpb) 360 mg in 200 mls @ 16.667 mls/hr IV .Q12H ANGELICA Stop: 05/25/24 16:19 Amiodarone HCl/Dextrose (Nexterone Ivpb) 150 mg in 100 mls @ 600 mls/hr IV .Q10M ONE Stop: 05/24/24 11:01 Last Admin: 05/24/24 11:00 Dose: 600 mls/hr Documented By: MGD Phenylephrine HCl 40 mg/ (Sodium Chloride) 100 mls @ 6.128 mls/hr IV .Q28M69N PRN; Protocol PRN Reason: Per Sepsis Protocol Stop: 06/23/24 10:52 Last Titration: 05/27/24 05:00 Dose: 0 mcg/kg/min, 0 mls/hr Documented By: Titration: 05/27/24 04:00 Dose: 0.05 mcg/kg/min, 0.613 mls/hr Documented By: Titration: 05/27/24 03:00 Dose: 0.05 mcg/kg/min, 0.613 mls/hr Documented By: Titration: 05/27/24 02:00 Dose: 0.05 mcg/kg/min, 0.613 mls/hr Documented By: Titration: 05/27/24 01:00 Dose: 0.05 mcg/kg/min, 0.613 mls/hr Documented By: Titration: 05/27/24 00:00 Dose: 0.05 mcg/kg/min, 0.613 mls/hr Documented By: Titration: 05/26/24 23:15 Dose: 0.1 mcg/kg/min, 1.226 mls/hr Documented By: Titration: 05/26/24 23:00 Dose: 0.15 mcg/kg/min, 1.838 mls/hr Documented By: Titration: 05/26/24 22:00 Dose: 0.15 mcg/kg/min, 1.838 mls/hr Documented By: Titration: 05/26/24 21:00 Dose: 0.15 mcg/kg/min, 1.838 mls/hr Documented By: Titration: 05/26/24 20:00 Dose: 0.15 mcg/kg/min, 1.838 mls/hr Documented By: Titration: 05/26/24 19:00 Dose: 0.15 mcg/kg/min, 1.838 mls/hr Documented By: Titration: 05/26/24 18:34 Dose: 0.15 mcg/kg/min, 1.838 mls/hr Documented By: Titration: 05/26/24 18:00 Dose: 0.2 mcg/kg/min, 2.451 mls/hr Documented By: Titration: 05/26/24 17:00 Dose: 0.2 mcg/kg/min, 2.451 mls/hr Documented By: Titration: 05/26/24 16:00 Dose: 0.2 mcg/kg/min, 2.451 mls/hr Documented By: Titration: 05/26/24 15:48 Dose: 0.2 mcg/kg/min, 2.451 mls/hr Documented By: Titration: 05/26/24 15:00 Dose: 0.15 mcg/kg/min, 1.838 mls/hr Documented By: Titration: 05/26/24 14:00 Dose: 0.15 mcg/kg/min, 1.838 mls/hr Documented By: Titration: 05/26/24 13:00 Dose: 0.15 mcg/kg/min, 1.838 mls/hr Documented By: Titration: 05/26/24 12:32 Dose: 0.15 mcg/kg/min, 1.838 mls/hr Documented By: Titration: 05/26/24 12:00 Dose: 0.2 mcg/kg/min, 2.451 mls/hr Documented By: Titration: 05/26/24 11:13 Dose: 0.2 mcg/kg/min, 2.451 mls/hr Documented By: Titration: 05/26/24 11:00 Dose: 0.25 mcg/kg/min, 3.064 mls/hr Documented By: Titration: 05/26/24 10:00 Dose: 0.25 mcg/kg/min, 3.064 mls/hr Documented By: Titration: 05/26/24 09:46 Dose: 0.3 mcg/kg/min, 3.677 mls/hr Documented By: Admin: 05/26/24 09:31 Dose: 0.35 mcg/kg/min, 4.289 mls/hr Documented By: Titration: 05/26/24 09:31 Dose: Infused Documented By: Titration: 05/26/24 09:17 Dose: 0.4 mcg/kg/min, 4.902 mls/hr Documented By: Titration: 05/26/24 09:00 Dose: 0.45 mcg/kg/min, 5.515 mls/hr Documented By: Titration: 05/26/24 08:00 Dose: 0.45 mcg/kg/min, 5.515 mls/hr Documented By: Titration: 05/26/24 07:00 Dose: 0.45 mcg/kg/min, 5.515 mls/hr Documented By: Titration: 05/26/24 06:00 Dose: 0.45 mcg/kg/min, 5.515 mls/hr Documented By: Titration: 05/26/24 05:00 Dose: 0.45 mcg/kg/min, 5.515 mls/hr Documented By: Titration: 05/26/24 04:00 Dose: 0.45 mcg/kg/min, 5.515 mls/hr Documented By: Titration: 05/26/24 03:00 Dose: 0.45 mcg/kg/min, 5.515 mls/hr Documented By: Titration: 05/26/24 02:00 Dose: 0.45 mcg/kg/min, 5.515 mls/hr Documented By: Titration: 05/26/24 01:00 Dose: 0.45 mcg/kg/min, 5.515 mls/hr Documented By: Titration: 05/26/24 00:00 Dose: 0.45 mcg/kg/min, 5.515 mls/hr Documented By: Titration: 05/25/24 23:00 Dose: 0.45 mcg/kg/min, 5.515 mls/hr Documented By: Titration: 05/25/24 22:00 Dose: 0.45 mcg/kg/min, 5.515 mls/hr Documented By: Titration: 05/25/24 21:35 Dose: 0.45 mcg/kg/min, 5.515 mls/hr Documented By: Titration: 05/25/24 21:00 Dose: 0.4 mcg/kg/min, 4.902 mls/hr Documented By: Titration: 05/25/24 20:00 Dose: 0.4 mcg/kg/min, 4.902 mls/hr Documented By: Titration: 05/25/24 19:00 Dose: 0.4 mcg/kg/min, 4.902 mls/hr Documented By: Titration: 05/25/24 18:17 Dose: 0.4 mcg/kg/min, 4.902 mls/hr Documented By: Titration: 05/25/24 18:00 Dose: 0.45 mcg/kg/min, 5.515 mls/hr Documented By: Titration: 05/25/24 17:50 Dose: 0.45 mcg/kg/min, 5.515 mls/hr Documented By: Titration: 05/25/24 17:00 Dose: 0.5 mcg/kg/min, 6.128 mls/hr Documented By: Admin: 05/25/24 16:45 Dose: 0.5 mcg/kg/min, 6.128 mls/hr Documented By: Titration: 05/25/24 16:15 Dose: Infused Documented By: Titration: 05/25/24 16:00 Dose: Infused Documented By: Titration: 05/25/24 15:00 Dose: 0.55 mcg/kg/min, 6.74 mls/hr Documented By: Titration: 05/25/24 14:00 Dose: 0.55 mcg/kg/min, 6.74 mls/hr Documented By: Titration: 05/25/24 13:30 Dose: 0.55 mcg/kg/min, 6.74 mls/hr Documented By: Titration: 05/25/24 13:00 Dose: 0.6 mcg/kg/min, 7.353 mls/hr Documented By: Titration: 05/25/24 12:00 Dose: 0.65 mcg/kg/min, 7.966 mls/hr Documented By: Titration: 05/25/24 11:00 Dose: 0.65 mcg/kg/min, 7.966 mls/hr Documented By: Titration: 05/25/24 10:32 Dose: 0.65 mcg/kg/min, 7.966 mls/hr Documented By: Titration: 05/25/24 10:18 Dose: 0.6 mcg/kg/min, 7.353 mls/hr Documented By: Titration: 05/25/24 10:00 Dose: 0.55 mcg/kg/min, 6.74 mls/hr Documented By: Titration: 05/25/24 09:40 Dose: 0.55 mcg/kg/min, 6.74 mls/hr Documented By: Titration: 05/25/24 09:00 Dose: 0.5 mcg/kg/min, 6.128 mls/hr Documented By: Titration: 05/25/24 08:00 Dose: 0.45 mcg/kg/min, 5.515 mls/hr Documented By: Titration: 05/25/24 07:56 Dose: 0.45 mcg/kg/min, 5.515 mls/hr Documented By: Titration: 05/25/24 07:00 Dose: 0.5 mcg/kg/min, 6.128 mls/hr Documented By: Titration: 05/25/24 06:00 Dose: 0.5 mcg/kg/min, 6.128 mls/hr Documented By: Titration: 05/25/24 05:00 Dose: 0.5 mcg/kg/min, 6.128 mls/hr Documented By: Titration: 05/25/24 04:00 Dose: 0.5 mcg/kg/min, 6.128 mls/hr Documented By: Titration: 05/25/24 03:00 Dose: 0.5 mcg/kg/min, 6.128 mls/hr Documented By: Titration: 05/25/24 02:00 Dose: 0.5 mcg/kg/min, 6.128 mls/hr Documented By: Titration: 05/25/24 01:00 Dose: 0.5 mcg/kg/min, 6.128 mls/hr Documented By: Admin: 05/25/24 00:05 Dose: 0.5 mcg/kg/min, 6.128 mls/hr Documented By: Titration: 05/25/24 00:05 Dose: Infused Documented By: Titration: 05/25/24 00:00 Dose: 0.5 mcg/kg/min, 6.128 mls/hr Documented By: Titration: 05/24/24 23:00 Dose: 0.5 mcg/kg/min, 6.128 mls/hr Documented By: Titration: 05/24/24 22:00 Dose: 0.5 mcg/kg/min, 6.128 mls/hr Documented By: Titration: 05/24/24 21:00 Dose: 0.5 mcg/kg/min, 6.128 mls/hr Documented By: Titration: 05/24/24 20:00 Dose: 0.5 mcg/kg/min, 6.128 mls/hr Documented By: Titration: 05/24/24 19:37 Dose: 0.5 mcg/kg/min, 6.128 mls/hr Documented By: Titration: 05/24/24 19:00 Dose: 0.5 mcg/kg/min, 6.128 mls/hr Documented By: Titration: 05/24/24 18:35 Dose: 0.5 mcg/kg/min, 6.128 mls/hr Documented By: Titration: 05/24/24 18:35 Dose: 0.5 mcg/kg/min, 6.128 mls/hr Documented By: Titration: 05/24/24 18:27 Dose: 0.5 mcg/kg/min, 6.128 mls/hr Documented By: Titration: 05/24/24 18:22 Dose: 0.5 mcg/kg/min, 6.128 mls/hr Documented By: Titration: 05/24/24 18:00 Dose: 0.5 mcg/kg/min, 6.128 mls/hr Documented By: Titration: 05/24/24 17:34 Dose: 0.5 mcg/kg/min, 6.128 mls/hr Documented By: Titration: 05/24/24 17:00 Dose: 0.5 mcg/kg/min, 6.128 mls/hr Documented By: Titration: 05/24/24 16:38 Dose: 0.5 mcg/kg/min, 6.128 mls/hr Documented By: Titration: 05/24/24 16:00 Dose: 0.5 mcg/kg/min, 6.128 mls/hr Documented By: Titration: 05/24/24 15:00 Dose: 0.5 mcg/kg/min, 6.128 mls/hr Documented By: Titration: 05/24/24 14:01 Dose: 0.5 mcg/kg/min, 6.128 mls/hr Documented By: Titration: 05/24/24 13:00 Dose: 0.5 mcg/kg/min, 6.128 mls/hr Documented By: Titration: 05/24/24 12:39 Dose: 0.5 mcg/kg/min, 6.128 mls/hr Documented By: Titration: 05/24/24 12:32 Dose: 0.5 mcg/kg/min, 6.128 mls/hr Documented By: Titration: 05/24/24 12:27 Dose: 0.5 mcg/kg/min, 6.128 mls/hr Documented By: Titration: 05/24/24 12:18 Dose: 0.5 mcg/kg/min, 6.128 mls/hr Documented By: Titration: 05/24/24 12:00 Dose: 0.5 mcg/kg/min, 6.128 mls/hr Documented By: Admin: 05/24/24 11:21 Dose: 0.5 mcg/kg/min, 6.128 mls/hr Documented By: MGD Potassium Chloride (Kcl Ivpb) 20 meq in 100 mls @ 50 mls/hr IV X1 ONE Stop: 05/24/24 12:55 Last Admin: 05/24/24 12:27 Dose: 50 mls/hr Documented By: MGD Amiodarone HCl/Dextrose (Nexterone Ivpb) 360 mg in 200 mls @ 16.667 mls/hr IV .Q12H ANGELICA Stop: 05/28/24 13:31 Last Admin: 05/28/24 03:00 Dose: 16.667 mls/hr Documented By: Infusion: 05/28/24 02:15 Dose: Infused Documented By: Admin: 05/27/24 14:15 Dose: 16.667 mls/hr Documented By: Infusion: 05/27/24 14:05 Dose: Infused Documented By: Admin: 05/27/24 02:05 Dose: 16.667 mls/hr Documented By: Infusion: 05/27/24 02:05 Dose: Infused Documented By: Admin: 05/26/24 15:08 Dose: 16.667 mls/hr Documented By: Infusion: 05/26/24 15:08 Dose: Infused Documented By: Admin: 05/26/24 03:48 Dose: 16.667 mls/hr Documented By: Infusion: 05/26/24 03:48 Dose: Infused Documented By: Admin: 05/25/24 16:09 Dose: 16.667 mls/hr Documented By: Infusion: 05/25/24 16:09 Dose: Infused Documented By: Admin: 05/25/24 05:12 Dose: 16.667 mls/hr Documented By: Infusion: 05/25/24 04:38 Dose: Infused Documented By: Admin: 05/24/24 16:38 Dose: 16.667 mls/hr Documented By: MGD Thiamine HCl 100 mg/ Amino (Acids) 2,001 mls @ 50 mls/hr IV QDAY@1800 ANGELICA Stop: 06/23/24 17:59 Last Admin: 05/24/24 18:22 Dose: 50 mls/hr Documented By: MGD Albumin Human (Albuminar-25 Ivpb) 25 gm in 100 mls @ 100 mls/min IV PRN PRN PRN Reason: DIALYSIS Last Admin: 06/06/24 08:22 Dose: 100 mls/min Documented By: Infusion: 05/30/24 19:13 Dose: Infused Documented By: Admin: 05/30/24 13:25 Dose: 100 mls/min Documented By: MM(2) Infusion: 05/29/24 08:47 Dose: Infused Documented By: MM(2) Admin: 05/29/24 08:46 Dose: 100 mls/min Documented By: MM(2) Infusion: 05/26/24 15:33 Dose: Infused Documented By: MM(2) Admin: 05/26/24 15:32 Dose: 100 mls/min Documented By: MM(2) Meropenem 500 mg/ Sodium (Chloride) 50 mls @ 100 mls/hr IV QDAY ANGELICA Stop: 06/01/24 10:59 Last Infusion: 05/27/24 09:19 Dose: Infused Documented By: Admin: 05/27/24 08:49 Dose: 100 mls/hr Documented By: Infusion: 05/26/24 09:33 Dose: Infused Documented By: Admin: 05/26/24 09:03 Dose: 100 mls/hr Documented By: Infusion: 05/25/24 13:15 Dose: Infused Documented By: Admin: 05/25/24 12:45 Dose: 100 mls/hr Documented By: GE Amino Acids (Clinimix 5/20) 1,000 mls @ 40 mls/hr IV QDAY@1800 ANGELICA Stop: 05/26/24 17:59 Last Admin: 05/25/24 17:51 Dose: 40 mls/hr Documented By: HR Fat Emulsion-[place] Oil/Soybean Oil (Clinopid 20% Iv) 500 mls @ 32 mls/hr IV T uSa@1800 ANGELICA Stop: 06/26/24 17:59 Last Admin: 06/03/24 18:38 Dose: 32 mls/hr Documented By: Infusion: 05/31/24 08:58 Dose: Infused Documented By: Admin: 05/30/24 17:20 Dose: 32 mls/hr Documented By: Infusion: 05/28/24 18:04 Dose: Infused Documented By: [facility] Admin: 05/27/24 18:43 Dose: 32 mls/hr Documented By: LW Sodium Chloride (Ns) 100 mls @ 20 mls/hr IV .Q5H ANGELICA Stop: 05/25/24 19:34 Last Admin: 05/25/24 14:35 Dose: 20 mls/hr Documented By: EC Acetaminophen (Ofirmev Inj) 1,000 mg in 100 mls @ 250 mls/hr IV Q6HR PRN PRN Reason: abdominal pain Stop: 05/26/24 12:23 Last Admin: 05/26/24 04:20 Dose: 250 mls/hr Documented By: Infusion: 05/25/24 22:33 Dose: Infused Documented By: Admin: 05/25/24 22:09 Dose: 250 mls/hr Documented By: CHAMPION Potassium Chloride (Kcl Ivpb) 10 meq in 100 mls @ 100 mls/hr IV Q1H ANGELICA Stop: 05/26/24 11:08 Last Admin: 05/26/24 11:10 Dose: Not Given Documented By: HR Non-Admin Reason: Discontinued Admin: 05/26/24 11:10 Dose: Not Given Documented By: HR Non-Admin Reason: Discontinued Potassium Chloride (Kcl Ivpb) 20 meq in 100 mls @ 50 mls/hr IV X1 ONE Stop: 05/26/24 10:13 Last Infusion: 05/26/24 11:10 Dose: Infused Documented By: Admin: 05/26/24 08:53 Dose: 50 mls/hr Documented By: HR Potassium Chloride (Kcl Ivpb) 20 meq in 100 mls @ 50 mls/hr IV Q2H ANGELICA Stop: 05/26/24 14:13 Last Admin: 05/26/24 11:12 Dose: 50 mls/hr Documented By: HR Amino Acids (Clinimix 5/20) 1,000 mls @ 40 mls/hr IV QDAY@1800 ANGELICA Stop: 05/27/24 17:59 Amino Acids (Clinimix 5/20) 2,000 mls @ 40 mls/hr IV QDAY@1800 ANGELICA Stop: 05/27/24 17:59 Last Admin: 05/26/24 18:35 Dose: 40 mls/hr Documented By: HR Acetaminophen (Ofirmev Inj) 1,000 mg in 100 mls @ 250 mls/hr IV Q6HR PRN PRN Reason: abdominal pain Stop: 05/27/24 06:23 Potassium Chloride (Kcl Ivpb) 10 meq in 100 mls @ 100 mls/hr IV Q1H ANGELICA Stop: 05/27/24 11:15 Last Infusion: 05/27/24 11:42 Dose: Infused Documented By: Admin: 05/27/24 10:42 Dose: 100 mls/hr Documented By: Infusion: 05/27/24 10:40 Dose: Infused Documented By: Admin: 05/27/24 09:40 Dose: 100 mls/hr Documented By: Infusion: 05/27/24 09:40 Dose: Infused Documented By: Admin: 05/27/24 08:48 Dose: 100 mls/hr Documented By: Infusion: 05/27/24 08:25 Dose: Infused Documented By: Admin: 05/27/24 07:25 Dose: 100 mls/hr Documented By: DEMETRI Magnesium Sulfate 1 gm/ Sodium (Chloride 30 meq/ Amino Acids) 2,009.5 mls @ 40.01 mls/hr IV QDAY@1800 ANGELICA Stop: 05/28/24 17:59 Last Admin: 05/27/24 18:15 Dose: 40.01 mls/hr Documented By: MYLES Cefepime HCl 1 gm/ Sodium (Chloride) 50 mls @ 100 mls/hr IV X1 ONE Stop: 05/27/24 11:28 Last Infusion: 05/27/24 11:47 Dose: Infused Documented By: Admin: 05/27/24 11:17 Dose: 100 mls/hr Documented By: DEMETRI Metronidazole (Flagyl 500 Mg Iv) 500 mg in 100 mls @ 100 mls/hr IV BID ANGELICA Stop: 06/03/24 11:14 Last Admin: 05/28/24 08:08 Dose: 100 mls/hr Documented By: Infusion: 05/27/24 22:18 Dose: Infused Documented By: [facility] Admin: 05/27/24 21:18 Dose: 100 mls/hr Documented By: Infusion: 05/27/24 12:42 Dose: Infused Documented By: Admin: 05/27/24 11:42 Dose: 100 mls/hr Documented By: DEMETRI Potassium Chloride (Kcl Ivpb) 20 meq in 100 mls @ 50 mls/hr IV Q2H ANGELICA Stop: 05/27/24 19:59 Potassium Chloride (Kcl Ivpb) 20 meq in 100 mls @ 50 mls/hr IV Q2H ANGEILCA Stop: 05/27/24 16:43 Last Infusion: 05/27/24 16:57 Dose: Infused Documented By: Admin: 05/27/24 14:57 Dose: 50 mls/hr Documented By: Infusion: 05/27/24 14:52 Dose: Infused Documented By: Admin: 05/27/24 12:52 Dose: 50 mls/hr Documented By: DEMETRI Magnesium Sulfate 1 gm/ Sodium (Chloride 120 meq/ Amino Acids) 2,032 mls @ 20 mls/hr IV QDAY@1800 ANGELICA Stop: 05/29/24 17:59 Last Infusion: 05/29/24 17:44 Dose: 0 mls/hr Documented By: Admin: 05/28/24 18:21 Dose: 20 mls/hr Documented By: MALLORY Meropenem 500 mg/ Sodium (Chloride) 50 mls @ 100 mls/hr IV QDAY ANGELICA Stop: 06/04/24 10:44 Last Admin: 05/28/24 11:09 Dose: 100 mls/hr Documented By: MALLORY Comments: 500mg given Amino Acids (Clinimix 10/17) 2,000 mls @ 20 mls/hr IV QDAY@1800 ANGELICA Stop: 05/30/24 17:59 Last Admin: 05/29/24 17:41 Dose: 20 mls/hr Documented By: DEMETRI Potassium Chloride 20 meq/Sodium Acetate 20 meq/ Amino Acids 2,020 mls @ 20 mls/hr IV QDAY@1800 ANGELICA Stop: 05/31/24 17:59 Last Admin: 05/30/24 18:02 Dose: 20 mls/hr Documented By: EDNA Sodium Acetate 20 meq/Magnesium Sulfate 2 gm/ Amino Acids 2,014 mls @ 20 mls/hr IV QDAY@1800 ANGELICA Stop: 06/01/24 17:59 Last Admin: 05/31/24 18:18 Dose: 20 mls/hr Documented By: LAURY Sodium Chloride 20 meq/Potassium Chloride 20 meq/Magnesium Sulfate 1 gm/ Amino Acids 2,017 mls @ 20 mls/hr IV QDAY@1800 ANGELICA Stop: 06/02/24 17:59 Last Admin: 06/01/24 18:06 Dose: 20 mls/hr Documented By: ARIEL Fluconazole (Diflucan/Ns Ivpb) 200 mg in 100 mls @ 100 mls/hr IV QDAY@2100 ANGELICA Stop: 06/08/24 20:27 Last Admin: 06/01/24 21:29 Dose: 100 mls/hr Documented By: BETHANY Sodium Chloride 20 meq/Potassium Chloride 30 meq/Magnesium Sulfate 1 gm/ Amino Acids 2,022 mls @ 20 mls/hr IV QDAY@1800 ANGELICA Stop: 06/03/24 17:59 Last Admin: 06/02/24 17:44 Dose: 20 mls/hr Documented By: MGD Heparin Sodium/Dextrose (Heparin In D5w Ivpb) 25,000 unit in 250 mls @ 9.384 mls/hr IV .Q24H REPLACED BY [facility]; Protocol Stop: 06/06/24 18:14 Last Titration: 06/06/24 18:18 Dose: 0 units/kg/hr, 0 mls/hr Documented By: EDNA Co-signed By: BERKLEY Admin: 06/06/24 16:47 Dose: 12 units/kg/hr, 9.384 mls/hr Documented By: EDNA Co-signed By: MYLES Comments: refilled empty bag, continuous drip Titration: 06/06/24 10:43 Dose: Infused Documented By: EDNA Co-signed By: MYLES Titration: 06/06/24 07:16 Dose: 12 units/kg/hr, 9.384 mls/hr Documented By: EDNA Co-signed By: BETHANY Admin: 06/05/24 23:55 Dose: Not Given Documented By: BETHANY Non-Admin Reason: Wrong Time Admin: 06/05/24 08:04 Dose: 12 units/kg/hr, 9.384 mls/hr Documented By: VT Co-signed By: BERKLEY Titration: 06/05/24 04:17 Dose: Infused Documented By: VT Co-signed By: BERKLEY Titration: 06/04/24 06:42 Dose: 12 units/kg/hr, 9.384 mls/hr Documented By: CP Co-signed By: SATISH Admin: 06/04/24 01:38 Dose: 12 units/kg/hr, 9.384 mls/hr Documented By: CP Co-signed By: CMC Titration: 06/03/24 22:36 Dose: Infused Documented By: CP Co-signed By: CMC Titration: 06/03/24 16:39 Dose: 12 units/kg/hr, 9.384 mls/hr Documented By: SAMUEL Co-signed By: MICHEAL Titration: 06/03/24 09:50 Dose: 12 units/kg/hr, 9.384 mls/hr Documented By: VRS Co-signed By: MICHEAL Admin: 06/02/24 19:37 Dose: 12 units/kg/hr, 9.384 mls/hr Documented By: CASPER Co-signed By: KECIA Sodium Chloride 20 meq/ Amino (Acids) 2,005 mls @ 19.832 mls/hr IV QDAY@1800 ANGELICA Stop: 06/04/24 17:59 Last Admin: 06/03/24 18:38 Dose: 19.832 mls/hr Documented By: VRS Sodium Chloride 20 meq/Potassium Acetate 20 meq/Amino Acids 2,015 mls @ 19.931 mls/hr IV QDAY@1800 ANGELICA Stop: 06/05/24 17:59 Sodium Chloride 20 meq/Potassium Chloride 20 meq/Amino Acids 2,015 mls @ 19.931 mls/hr IV QDAY@1800 REPLACED BY [facility] Stop: 06/05/24 17:59 Last Admin: 06/04/24 17:35 Dose: 19.931 mls/hr Documented By: SAMUEL Magnesium Sulfate (Magnesium Sulfate Ivpb) 4 gm in 50 mls @ 12.5 mls/hr IV X1 ONE Stop: 06/05/24 19:26 Last Admin: 06/05/24 16:26 Dose: 12.5 mls/hr Documented By: VT Insulin Glargine (Insulin Glargine (Lantus) 5 Unit/0.05 Ml (Per 5 Units)) 8 unit SC QDAY REPLACED BY [facility] Stop: 06/23/24 13:29 Last Admin: 05/24/24 14:05 Dose: 8 unit Documented By: MGTereso Co-signed By: EMILEE Insulin Human Regular (Insulin Hum Regular 1 Unit/0.01 Ml (Per Unit)) 5 unit IV X1 ONE Stop: 05/13/24 07:08 Last Admin: 05/13/24 09:42 Dose: Not Given Documented By: GM Non-Admin Reason: Contraindicated Insulin Human Regular (Insulin Hum Regular 1 Unit/0.01 Ml (Per Unit)) 0 unit SC ACHS REPLACED BY [facility]; Protocol Stop: 06/22/24 16:59 Insulin Human Regular (Insulin Hum Regular 1 Unit/0.01 Ml (Per Unit)) 0 unit SC Q6H REPLACED BY [facility]; Protocol Stop: 06/22/24 12:29 Last Admin: 05/24/24 12:50 Dose: 6 unit Documented By: MGTereso Co-signed By: GE Admin: 05/24/24 06:12 Dose: 4 unit Documented By: ALON Co-signed By: CORBY Admin: 05/24/24 01:15 Dose: 4 unit Documented By: ALON Co-signed By: CORBY(3) Admin: 05/23/24 18:50 Dose: 4 unit Documented By: MICHEAL Co-signed By: ALON Admin: 05/23/24 12:33 Dose: 4 unit Documented By: MICHEAL Co-signed By: KAITLYN Levalbuterol HCl (Levalbuterol Rt 1.25 Mg/0.5 Ml Nebu) 5 mg INH X1 ONE Stop: 05/24/24 19:01 Last Admin: 05/24/24 19:17 Dose: 5 mg Documented By: CAMI Lidocaine (Lidocaine 5% 1 Patch) 1 patch TOP X1 ONE Stop: 05/14/24 03:21 Last Admin: 05/14/24 03:28 Dose: 1 patch Documented By: CORBY(2) Lidocaine (Lidocaine 5% 1 Patch) 1 patch TOP X1 ONE Stop: 05/26/24 00:20 Last Admin: 05/26/24 02:52 Dose: 1 patch Documented By: JAYCEE Lidocaine HCl (Lidocaine Inj Pf 1% 30 Ml Vial) Confirm Administered Dose 30 ml .ROUTE .STK-MED ONE Stop: 05/22/24 14:15 Last Admin: 05/22/24 15:09 Dose: Not Given Documented By: CU Non-Admin Reason: Override Medication Lidocaine HCl (Lidocaine Inj Pf 1% 30 Ml Vial) 4 ml INFL X1 ONE Stop: 05/22/24 14:27 Last Admin: 05/22/24 14:27 Dose: 4 ml Documented By: TYESHA Comments: to sterile field administered by dr nguyen Lidocaine HCl (Lidocaine Inj Pf 1% 30 Ml Vial) Confirm Administered Dose 30 ml .ROUTE .STK-MED ONE Stop: 05/25/24 14:14 Last Admin: 05/25/24 15:30 Dose: Not Given Documented By: EC Non-Admin Reason: Duplicate Medication on eMAR Lidocaine HCl (Lidocaine Inj Pf 1% 5 Ml Vial) 30 ml INFL X1 PRN PRN Reason: LOCAL ANESTHESIA Stop: 05/25/24 17:24 Last Admin: 05/25/24 14:55 Dose: 30 ml Documented By: EC Comments: placed on sterile field Lidocaine HCl (Lidocaine Inj Pf 1% 30 Ml Vial) Confirm Administered Dose 30 ml .ROUTE .STK-MED ONE Stop: 06/02/24 11:05 Last Admin: 06/02/24 12:30 Dose: Not Given Documented By: EC Non-Admin Reason: Duplicate Medication on eMAR Lidocaine HCl (Lidocaine Inj Pf 1% 30 Ml Vial) Confirm Administered Dose 30 ml .ROUTE .STK-MED ONE Stop: 06/02/24 11:41 Last Admin: 06/02/24 12:30 Dose: Not Given Documented By: EC Non-Admin Reason: Duplicate Medication on eMAR Lidocaine HCl (Lidocaine Inj Pf 1% 5 Ml Vial) 20 ml IM X1 PRN PRN Reason: LOCAL ANESTHESIA Lidocaine HCl (Lidocaine Inj Pf 1% 5 Ml Vial) 20 ml INFL X1 PRN PRN Reason: LOCAL ANESTHESIA Stop: 06/02/24 14:33 Lidocaine HCl (Lidocaine Inj Pf 1% 5 Ml Vial) 20 ml INFL X1 PRN PRN Reason: LOCAL ANESTHESIA Stop: 06/02/24 12:25 Last Admin: 06/02/24 11:30 Dose: 20 ml Documented By: EC Lidocaine HCl (Lidocaine Inj Pf 1% 30 Ml Vial) 20 ml INFL X1 PRN PRN Reason: LOCAL ANESTHESIA Stop: 06/02/24 14:42 Last Admin: 06/02/24 10:30 Dose: 20 ml Documented By: EC Lidocaine HCl (Lidocaine Inj Pf 1% 30 Ml Vial) Confirm Administered Dose 30 ml .ROUTE .STK-MED ONE Stop: 06/09/24 13:19 Lorazepam (Lorazepam 2 Mg/Ml Vial) 0.5 mg IVP X1 ONE Stop: 05/23/24 02:52 Last Admin: 05/23/24 03:01 Dose: 0.5 mg Documented By: GG Lorazepam (Lorazepam 2 Mg/Ml Vial) 0.5 mg IVP X1 ONE Stop: 05/23/24 22:16 Last Admin: 05/23/24 22:23 Dose: 0.5 mg Documented By: GG Lorazepam (Lorazepam 2 Mg/Ml Vial) 0.25 mg IVP X1 ONE Stop: 05/28/24 22:31 Last Admin: 05/28/24 23:14 Dose: 0.25 mg Documented By: CTF Methylene Blue (Methylene Blue Inj 0.5% 5 Mg/Ml Vial 10ml) Confirm Administered Dose 50 mg .ROUTE .STK-MED ONE Stop: 05/15/24 09:01 Metoprolol Succinate (Metoprolol Succinate Xl 25 Mg Tabcr) 100 mg PO X1 ONE Stop: 06/08/24 21:01 Last Admin: 06/08/24 20:51 Dose: 100 mg Documented By: SATISH Metronidazole (Metronidazole 250 Mg Tablet) 500 mg PO BID REPLACED BY [facility] Stop: 06/03/24 10:59 Last Admin: 05/27/24 11:12 Dose: Not Given Documented By: DA Non-Admin Reason: Discontinued Midazolam HCl (Midazolam Inj 1 Mg/Ml Vial 2 Ml) Confirm Administered Dose 2 mg .ROUTE .STK-MED ONE Stop: 06/02/24 09:41 Last Admin: 06/02/24 12:30 Dose: Not Given Documented By: EC Non-Admin Reason: Duplicate Medication on eMAR Midodrine (Midodrine 5 Mg Tablet) 10 mg PO TID REPLACED BY [facility] Stop: 06/29/24 07:24 Last Admin: 05/30/24 07:59 Dose: 10 mg Documented By: EDNA Midodrine (Midodrine 5 Mg Tablet) 10 mg PO QID REPLACED BY [facility] Stop: 06/29/24 11:59 Last Admin: 06/01/24 17:16 Dose: Not Given Documented By: MGD Non-Admin Reason: Vital Signs Admin: 06/01/24 12:42 Dose: 10 mg Documented By: Admin: 06/01/24 05:23 Dose: Not Given Documented By: WB Non-Admin Reason: Vital Signs Admin: 05/31/24 20:14 Dose: Not Given Documented By: WB Non-Admin Reason: Other, see note Comments: BP high Admin: 05/31/24 18:06 Dose: Not Given Documented By: TC Non-Admin Reason: Other, see note Admin: 05/31/24 11:44 Dose: Not Given Documented By: TC Non-Admin Reason: Held, SBP >130 Admin: 05/31/24 05:58 Dose: 10 mg Documented By: Admin: 05/30/24 20:15 Dose: 10 mg Documented By: Admin: 05/30/24 17:08 Dose: 10 mg Documented By: Admin: 05/30/24 12:01 Dose: 10 mg Documented By: EDNA Midodrine (Midodrine 5 Mg Tablet) 10 mg PO QID REPLACED BY [facility] Stop: 06/29/24 11:59 Last Admin: 06/07/24 05:19 Dose: Not Given Documented By: WB Non-Admin Reason: Per Protocol Admin: 06/06/24 21:18 Dose: Not Given Documented By: WB Non-Admin Reason: Per Protocol Admin: 06/06/24 16:58 Dose: Not Given Documented By: WG Non-Admin Reason: vitals Admin: 06/06/24 12:08 Dose: 10 mg Documented By: Admin: 06/06/24 05:20 Dose: Not Given Documented By: WB Non-Admin Reason: Per Protocol Admin: 06/05/24 21:18 Dose: Not Given Documented By: WB Non-Admin Reason: Per Protocol Admin: 06/05/24 16:27 Dose: 10 mg Documented By: Admin: 06/05/24 12:17 Dose: 10 mg Documented By: Admin: 06/05/24 05:52 Dose: Not Given Documented By: CMC Non-Admin Reason: Per Protocol Admin: 06/04/24 20:29 Dose: Not Given Documented By: CCT Non-Admin Reason: Per Protocol Admin: 06/04/24 17:35 Dose: 10 mg Documented By: Admin: 06/04/24 12:10 Dose: Not Given Documented By: VRS Non-Admin Reason: Vital Signs Admin: 06/04/24 05:29 Dose: Not Given Documented By: VRS(2) Non-Admin Reason: not appropriate Admin: 06/03/24 20:34 Dose: Not Given Documented By: CP Non-Admin Reason: Held per parameters. Admin: 06/03/24 18:25 Dose: Not Given Documented By: VRS Non-Admin Reason: Vital Signs Admin: 06/03/24 12:17 Dose: Not Given Documented By: VRS Non-Admin Reason: Vital Signs Admin: 06/03/24 05:32 Dose: Not Given Documented By: MA Non-Admin Reason: Per Protocol Admin: 06/02/24 20:21 Dose: Not Given Documented By: MA Non-Admin Reason: Per Protocol Admin: 06/02/24 17:33 Dose: Not Given Documented By: MGD Non-Admin Reason: HOLD Admin: 06/02/24 13:49 Dose: Not Given Documented By: MGD Non-Admin Reason: Vital Signs Admin: 06/02/24 05:43 Dose: 10 mg Documented By: Admin: 06/01/24 21:26 Dose: 10 mg Documented By: BETHANY Mirtazapine (Mirtazapine 15 Mg Tablet) 15 mg PO QDAY REPLACED BY [facility] Stop: 07/06/24 14:29 Last Admin: 06/07/24 09:36 Dose: 15 mg Documented By: Admin: 06/06/24 14:30 Dose: 15 mg Documented By: EDNA Naloxone HCl (Naloxone Inj 0.4 Mg/Ml Vial) Confirm Administered Dose 0.4 mg .ROUTE .STK-MED ONE Stop: 05/25/24 14:13 Last Admin: 05/25/24 15:30 Dose: Not Given Documented By: EC Non-Admin Reason: Duplicate Medication on eMAR Naloxone HCl (Naloxone Inj 0.4 Mg/Ml Vial) Confirm Administered Dose 0.4 mg .ROUTE .STK-MED ONE Stop: 06/02/24 09:42 Last Admin: 06/02/24 12:30 Dose: Not Given Documented By: EC Non-Admin Reason: Duplicate Medication on eMAR Naloxone HCl (Naloxone Inj 0.4 Mg/Ml Vial) Confirm Administered Dose 0.4 mg .ROUTE .STK-MED ONE Stop: 06/09/24 13:19 Ondansetron HCl (Ondansetron Inj 2 Mg/Ml Inj 2 Ml) Confirm Administered Dose 4 mg .ROUTE .STK-MED ONE Stop: 05/25/24 14:13 Last Admin: 05/25/24 15:30 Dose: Not Given Documented By: EC Non-Admin Reason: Duplicate Medication on eMAR Ondansetron HCl (Ondansetron Inj 2 Mg/Ml Inj 2 Ml) Confirm Administered Dose 4 mg .ROUTE .STK-MED ONE Stop: 06/02/24 09:42 Last Admin: 06/02/24 12:30 Dose: Not Given Documented By: EC Non-Admin Reason: Duplicate Medication on eMAR Ondansetron HCl (Ondansetron Inj 2 Mg/Ml Inj 2 Ml) Confirm Administered Dose 4 mg .ROUTE .STK-MED ONE Stop: 06/09/24 13:20 Pantoprazole Sodium (Pantoprazole Inj 40 Mg Vial) 40 mg IVP Q12HR REPLACED BY [facility] Stop: 06/12/24 20:59 Pantoprazole Sodium (Pantoprazole 40 Mg Tablet) 40 mg PO QDAY REPLACED BY [facility] Stop: 06/13/24 08:59 Pantoprazole Sodium (Pantoprazole Inj 40 Mg Vial) 80 mg IV X1 ONE Stop: 05/14/24 08:03 Last Admin: 05/14/24 08:37 Dose: 80 mg Documented By: KD Phenylephrine HCl (Phenylephrine Inj In Ns 100 Mcg/Ml 10 Ml Syringe) Confirm Administered Dose 1,000 mcg .ROUTE .STK-MED ONE Stop: 05/15/24 08:22 Phenylephrine HCl (Phenylephrine Inj 10 Mg/Ml Vial) Confirm Administered Dose 10 mg .ROUTE .STK-MED ONE Stop: 05/15/24 08:28 Potassium Chloride (Potassium Chloride 20 Meq Tabcr) 40 meq PO X1 ONE Stop: 05/14/24 11:40 Last Admin: 05/14/24 12:18 Dose: 40 meq Documented By: KD Potassium Chloride (Potassium Chloride 10% 20 Meq/15 Ml Udc) 40 meq GT X1 ONE Stop: 05/18/24 07:20 Last Admin: 05/18/24 19:18 Dose: Not Given Documented By: ZP Non-Admin Reason: Discontinued Potassium Chloride (Potassium Chloride 10% 20 Meq/15 Ml Udc) 40 meq NG X1 ONE Stop: 05/18/24 07:20 Last Admin: 05/18/24 08:11 Dose: 40 meq Documented By: GE Potassium Chloride (Potassium Chloride 10% 20 Meq/15 Ml Udc) 40 meq GT X1 ONE Stop: 05/26/24 07:09 Last Admin: 05/26/24 11:09 Dose: Not Given Documented By: HR Non-Admin Reason: Discontinued Potassium Chloride (Potassium Chloride 10% 20 Meq/15 Ml Udc) 40 meq PO X1 ONE Stop: 05/31/24 07:26 Last Admin: 05/31/24 08:48 Dose: 40 meq Documented By: TC Potassium Phos/Sodium Phos (Naph,[facility] 1 Packet (1.5 Gm)) 1 packet PO X1 ONE Stop: 05/31/24 09:10 Last Admin: 05/31/24 09:36 Dose: 1 packet Documented By: TC Propofol (Propofol Inj 10 Mg/Ml Vial 20 Ml) Confirm Administered Dose 200 mg IV .STK-MED ONE Stop: 05/15/24 07:29 Rocuronium [place] (Rocuronium Inj 10 Mg/Ml Vial 10 Ml) Confirm Administered Dose 100 mg .ROUTE .STK-MED ONE Stop: 05/15/24 07:29 Sennosides (Senna Tablet) 1 tab PO QDAY PRN; Protocol PRN Reason: constipation Stop: 06/12/24 11:57 Sodium Bicarbonate (Sodium Bicarb Inj 8.4% 1 Meq/Ml Vial 50 Ml) 50 meq IV X1 ONE Stop: 05/16/24 16:01 Last Admin: 05/16/24 16:45 Dose: Not Given Documented By: RENNY Non-Admin Reason: Cancelled by Provider Sodium Bicarbonate (Sodium Bicarb Inj 8.4% Syr 50 Ml Syringe) 50 ml IV X1 ONE Stop: 05/16/24 16:23 Last Admin: 05/16/24 16:32 Dose: 50 ml Documented By: RENNY Sucralfate (Sucralfate Susp 1 Gm/10 Ml Udc) 1 gm PO QID ANGELICA Stop: 06/12/24 16:59 Last Admin: 05/15/24 13:40 Dose: Not Given Documented By: kristie Non-Admin Reason: Cancelled by Provider Comments: hold per MD Robles due to post op. Admin: 05/15/24 06:49 Dose: Not Given Documented By: CORBY(2) Non-Admin Reason: Patient Refused Admin: 05/14/24 20:24 Dose: 1 gm Documented By: CORBY(2) Admin: 05/14/24 16:44 Dose: 1 gm Documented By: Admin: 05/14/24 11:28 Dose: 1 gm Documented By: Admin: 05/14/24 05:23 Dose: Not Given Documented By: CORBY(2) Non-Admin Reason: NPO Admin: 05/13/24 21:12 Dose: 1 gm Documented By: CORBY(2) Admin: 05/13/24 17:59 Dose: 1 gm Documented By: ALEKSANDRA Tuberculin PPD (Tuberculin Ppd Inj 5 Unit/0.1 Ml Dose) 5 unit ID X1 ONE Stop: 05/28/24 18:24 Last Admin: 05/28/24 19:51 Dose: 5 unit Documented By: CTF Tuberculin PPD (Tuberculin Ppd Inj 5 Unit/0.1 Ml Dose) 5 unit ID X1 ONE Stop: 05/31/24 10:42 Last Admin: 05/31/24 11:59 Dose: Not Given Documented By: LAURY Non-Admin Reason: Duplicate Medication on eMAR per ED date Consultations Consultation(s) initiated? (list below): No Diagnosis Syncope Differential Diagnosis: syncope due to orthostatic hypotension, vasovagal syncope, subarachnoid hemorrhage, dehydration and other (sepsis) Most likely diagnosis given after review of the tests above:: sepsis Admission Indicated Admission indicated?: indicated Admission Request Was there a request for admission?: Yes Admission Attestation Admission request attestation: Discussed case with [] from Hospitalist service regarding admission. Discussed patients ED course, exam findings, labs, and radiology results. The Hospitalist [agrees,declines] to accept the patient for admission. Disposition Plan Disposition Plan: Admit Discharge Plan Plan Patient Disposition: Admit Acute Care w/in Hospital Problem List Clinical Impression: AMS (altered mental status), Sepsis, Acute respiratory failure with hypoxia, Pneumonia, Elevated troponin, Elevated brain natriuretic peptide (BNP) level
[2024-05-13] MEDS: SODIUM CHLORIDE 0.9% 1000 ML 1,000 ML 999 ML IV ×2 (05:19→12:56)
--- NOTE | 2024-05-13 05:53 | XR_ITS ---
Examination: CT brain head without contrast. 2-D sagittal coronal reconstructions Date and time of exam:May 13, 2024 0705 hrs. Comparison April 21, 2014 Indications: Altered mental status beginning 3 days ago, patient fell with injury to the head, head pain CTDI: vol (mGy):51.5 DLP: (mGycm):1010 Technique: Multiple CT axial sections of the brain have been obtained, 5 mm slice thickness. Contrast has not been administered. 2-D sagittal, coronal reconstructions have been obtained Low dose protocols were performed. One or more of the following dose reduction techniques were used; automated exposure control, adjustment of the mA and/or KV according to patient size, use of iterative reconstruction technique. Findings: No significant ventricular enlargement. 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 No mass effect or midline shift Basal cisterns are not remarkable. Fourth ventricle is midline. Cranial vault intact. Impression: Negative for acute hemorrhage, mass effect or midline shift As clinically warranted, brain MRI follow-up would best assess for acute ischemic change
--- NOTE | 2024-05-13 06:06 | PC.NURSE ---
upon arrival, pt received aaliyah care and new brief
--- NOTE | 2024-05-13 06:10 | PC.NURSE ---
when asked, pt states generalized abd pain (8) on 0-10. Appears distended., Pt does feel like abd is distended. pt color still pale. pt feels better laying supine.
[2024-05-13 06:27] LABS: Basophils # (Auto) 0.1 Thou/mm3 (0.0-0.2); Basophils % (Auto) 0 % (0-2.5); Eosinophils % (Auto) 0 % (0-10); Hematocrit 25.6 % (36.0-46.0); Immature Granulocytes % (Auto) 5 % (0-0); Immature Granulocytes Auto 1.19 Thou/mm3 (0.00-0.00); Lymphocytes # (Auto) 3.2 Thou/mm3 (1.0-4.8); Lymphocytes % (Auto) 13 % (10-50); Mean Corpuscular HGB Conc 31.3 g/dl (31.0-37.0); Mean Corpuscular Hemoglobin 26.4 pg (25.0-35.0); Mean Corpuscular Volume 85 fL (80-100); Monocytes % (Auto) 4 % (0-12); Neutrophils # (Auto) 18.8 Thou/mm3 (1.8-7.7); Neutrophils % (Auto) 78 % (37-80); Nucleated Red Blood Cell # 0.18 Thou/mm3 (0.00-0.00); Nucleated Red Blood Cell % 1 /100 WBC (0); Platelet Count 334 Thou/mm3 (140-440); RDW Standard Deviation 44.9 fL (36.4-46.3); Red Blood Count 3.03 Miln/mm3 (4.00-5.20); White Blood Count 24.3 Thou/mm3 (3.6-11.0)
[2024-05-13] MEDS: AZITHROMYCIN INJ 500 MG in SODIUM CHLORIDE 0.9% 250 ML 250 ML 250 MG IV (06:29)
[2024-05-13] MEDS: cefTRIAXone 1,000 MG in SODIUM CHLORIDE 0.9% (P) 50 ML 100 MG IV (06:30)
--- NOTE | 2024-05-13 06:31 | XR_ITS ---
Examination: CT thoracic spine, without contrast. 2-D sagittal reconstructions. 2-D coronal reconstructions. 3-D reconstructions. Date and time of exam:May 13, 2024 0711 hrs. Indications: Patient fell 3 days ago with injury to the upper back, upper back pain CTDI: vol (mGy):42.1 DLP: (mGycm):1535 Technique: Multiple 1.25 mm axial sections of the thoracic spine without intravenous contrast have been obtained. 2-D sagittal and coronal reconstructions have been obtained. 3-D reconstructions have been obtained. Low dose protocols were performed. One or more of the following dose reduction techniques were used; automated exposure control, adjustment of the mA and/or KV according to patient size, use of iterative reconstruction technique. Findings: Moderate osteopenia Thoracic dextroscoliosis 15 degrees No thoracic vertebral body compression fracture Mild to moderate thoracic spondylosis Thoracic pedicles laminated transverse and posterior spinous processes intact Mild to moderate thoracic spondylosis Impression: No acute thoracic fracture
--- NOTE | 2024-05-13 06:31 | XR_ITS ---
Examination: CT abdomen with intravenous contrast CT pelvis with intravenous contrast 2-D coronal reconstructions 2-D sagittal reconstructions Date and time of exam:May 13, 2024 0717 hrs. Comparison November 16, 2023 Indications: Sepsis, abdominal pain, generalized weakness, patient fell today. CTDI: vol (mGy) 23.7 DLP: (mGycm) 1121 Technique: Multiple axial sections of the abdomen and pelvis have been obtained. 64 slice high-resolution scanner used. 3 mm axial sections have been obtained, post intravenous injection 100 cc Isovue-370 2-D sagittal, coronal reconstructions obtained. Low dose protocols were performed. One or more of the following dose reduction techniques were used; automated exposure control, adjustment of the mA and/or KV according to patient size, use of iterative reconstruction technique. Findings: Liver is mildly irregular in contour No focal liver splenic or renal laceration, no perinephric hematoma No gallstones No pancreatic mass Abdominal aortic calcification no aneurysmal dilatation Abdominal aorta intact, no free blood in the abdomen 5.7 cm left renal cyst Negative for pneumoperitoneum Normal appendix No bowel obstruction No diverticulitis Urinary bladder intact Advanced degenerative disc disease L3-L4 Grade 1 anterolisthesis L4 on L5 Sacral segments and bones of the pelvis including acetabular regions anterior rami intact Hips appear intact Impression: Suspect primary hepatocellular disease No abdominal parenchymal laceration, no perinephric hematoma Abdominal aorta intact, no free blood in the abdomen or pelvis Normal appendix No abdominal or pelvic abscess Colonic diverticulosis, no diverticulitis
--- NOTE | 2024-05-13 06:31 | XR_ITS ---
Examination: CT maxillofacial, without intravenous contrast. 2-D sagittal reconstructions. 3-D reconstructions. Date and time of exam:May 13, 2024 0705 hrs. Indications: Ground-level fall 3 days ago with injury to the face, facial pain CTDI: vol (mGy):34.7 DLP: (mGycm):615 Technique: Multiple axial images of maxillofacial region, 3.0 mm slice thickness. 2-D sagittal and coronal reconstructions. 3-D reconstructions. Low dose protocols were performed. One or more of the following dose reduction techniques were used; automated exposure control, adjustment of the mA and/or KV according to patient size, use of iterative reconstruction technique. Findings: Frontal bone frontal sinuses intact Orbital rims intact No nasal bone fracture No depression zygomatic arches Pterygoid plates maxilla and the mandible intact The optic globes exhibit symmetry with no retro-orbital hematoma. The right mandibular condyle is translated anteriorly but not dislocated, sagittal image 99, clinical correlation advised Impression: No acute facial fracture
--- NOTE | 2024-05-13 06:31 | XR_ITS ---
Examination: CTA chest with intravenous contrast 2-D reconstructions 3-D reconstructions, vascular Date and time of exam: May 13, 2024 0717 hrs. Indications: Patient fell 3 days ago, sepsis today, shortness of breath chest pain CTDI: vol (mGy) 15.6 DLP: (mGycm) 508 Technique: Multiple axial sections of the thorax have been obtained. 3 mm slice thickness, from below the hemidiaphragms to above the apices of the lungs. Mediastinal and lung density settings have been obtained. 2-D sagittal and coronal reconstructions. 3-D angiographic renderings, 3-D volume renderings, 3D post processing, vascular maximum intensity projections obtained. Contrast administered is 100 cc Isovue-370 intravenous. Low dose protocols were performed. One or more of the following dose reduction techniques were used; automated exposure control, adjustment of the mA and/or KV according to patient size, use of iterative reconstruction technique. Findings: Aneurysmal dilatation ascending thoracic aorta, AP dimension 4.3 cm Enlarged right and left main pulmonary artery segments, no pulmonary artery emboli Mild enlargement left atrium left ventricle Moderate vascular congestion No pneumothorax No hemothorax Sternum thoracic vertebral bodies intact Rib detail is obscured partly by significant patient motion Impression: Mild aneurysmal dilatation ascending thoracic aorta, AP dimension 4.3 cm Pulmonary artery hypertension, negative for pulmonary artery emboli Moderate vascular congestion No pneumothorax or hemothorax No pneumonia or pulmonary contusion
--- NOTE | 2024-05-13 06:31 | XR_ITS ---
Examination: CT lumbar spine, without contrast. 2-D sagittal reconstructions. 2-D coronal reconstructions. 3-D reconstructions. Date and time of exam:May 13, 2024 0711 hrs. Indications: Ground-level fall with injury to the lower back region days ago, lower back pain CTDI: vol (mGy): 38 DLP: (mGycm):1107 Technique: Multiple 1.25 mm axial sections of the lumbar spine without intravenous contrast have been obtained. 2-D sagittal and coronal reconstructions have been obtained. 3-D reconstructions have been obtained. Low dose protocols were performed. One or more of the following dose reduction techniques were used; automated exposure control, adjustment of the mA and/or KV according to patient size, use of iterative reconstruction technique. Findings: Grade 1 anterolisthesis L4 on L3 and L5 Advanced degenerative disc disease L3-L4 No lumbar vertebral body compression fracture Lumbar pedicles, laminae transverse and posterior spinous processes intact L4-L5 severe acquired spinal stenosis, secondary to the grade 1 anterolisthesis L4 on L5 as well as facet arthropathy and thickening of ligamentum flavum circumferentially narrowing the thecal sac, axial image 80 including significant bilateral L4 ganglionic compression Impression: No acute lumbar fracture Severe acquired spinal stenosis L4-L5
--- NOTE | 2024-05-13 06:31 | XR_ITS ---
Examination: CT cervical spine without contrast 2-D sagittal reconstructions 2-D coronal reconstructions 3-D reconstructions. Exam date and time:May 13, 2024 at 0705 hrs. Indications: Ground-level fall 3 days ago with injury to the neck, neck pain CTDI:vol (mGy) 15.9 DLP: (mGycm) 320 Technique: Multiple 2 mm axial sections of the cervical spine have been obtained. The coronal and sagittal reconstructions have been obtained. 3-D reconstructions have been obtained. Low dose protocols were performed. One or more of the following dose reduction techniques were used; automated exposure control, adjustment of the mA and/or KV according to patient size, use of iterative reconstruction technique. Findings: Axial sections demonstrate intact base of the skull. C1 exhibit satisfactory relationship to the odontoid. No acute cervical vertebral body fracture seen. Alignment posterior spinous processes satisfactory. 3 mm radiolucency in the C3 vertebral body, axial image 47 sagittal image 60 Impression: No acute cervical fracture. 3 mm radiolucency in the C3 vertebral body as above, recommend 3 month follow-up PA lateral cervical spine plain films follow-up
[2024-05-13 06:38] LABS: INR 1.2 (0.9-1.3); Partial Thromboplastin Time 20.4 Seconds (22.0-36.0); Prothrombin Time 12.5 Seconds (9.0-12.2)
[2024-05-13 06:44] LABS: B-Type Natriuretic Peptide 304 pg/mL (0-100)
--- NOTE | 2024-05-13 06:45 | PC.NURSE ---
0643, called sepsis alert per CLARE hernandez.
[2024-05-13 06:51] LABS: Alanine Aminotransferase 16 U/L (10-49); Albumin, Serum 3.2 gm/dL (3.4-4.8); Albumin/Globulin Ratio 1.4 (1.2-2.2); Alkaline Phosphatase 71 U/L (46-116); Anion Gap 12 (7-16); Aspartate Amino Transferase 16 U/L (0-34); BUN/Creatinine Ratio 72 Ratio (12-20); Bilirubin,Total 0.2 mg/dL (0.3-1.2); Blood Urea Nitrogen 93 mg/dL (9-23); Calcium 8.8 mg/dL (8.3-10.6); Calcium (Corrected) 9.4 mg/dL (8.5-10.1); Carbon Dioxide 19.6 mMol/L (20.0-31.0); Chloride 108 mMol/L (98-107); Creatinine (Component) 1.3 mg/dL (0.6-1.3); Globulin 2.3 gm/dL (2.3-3.5); Glucose 259 mg/dL (74-106); Lipase 47 U/L (12-53); Osmolality,Calculated 317 (275-295); Procalcitonin 0.19 ng/ml (0.0-0.49); Sodium 140 mMol/L (136-145); Total Protein 5.5 gm/dL (5.7-8.2); eGFR 45 See Note
[2024-05-13 06:56] LABS: Lactate (Lactic Acid) 2.2 mMol/L (0.4-2.0)
--- NOTE | 2024-05-13 07:31 | PC.NURSE ---
accompanied pt to DT. pt tolerated and is stable. pt now returned to ER report given to Day RN
[2024-05-13 07:32] LABS: Amylase 84 U/L (30-118); Lipase 47 U/L (12-53)
[2024-05-13 07:33] LABS: D-Dimer < 250 ng/mL (<600)
[2024-05-13 08:34] LABS: Base Excess -5 (-3-3); HCO3 19 mEq/L (20-26); Inspired Oxygen, FIO2 21 %; O2 Saturation 96 % (91-98); PCO2 31 mmHg (32.0-48.0); PO2 78 mmHg (83-108); pH, Arterial 7.39 (7.35-7.45)
[2024-05-13 08:37] LABS: Allen Test Performed/OK; Puncture Site Left Radial
[2024-05-13 09:39] LABS: Collection Type, Urine Clean Catch
[2024-05-13 09:53] LABS: Reflex Lactate? Y
[2024-05-13 09:58] LABS: Bacteria,Urine Rare; Bilirubin,Urine Negative (Negative); Blood,Urine Negative (Negative); Clarity,Urine Clear (Clear/Hazy); Color,Urine Lt-Yellow (Lt Yel-Yel); Glucose, Urine Negative (Negative); Hyaline Casts,Urine < 1 /hpf (0-1); Ketones,Urine Negative (Negative); Leukocyte Esterase,Urine Negative (Negative); Nitrite,Urine Negative (Negative); Protein,Urine Negative (Neg - Trace); RBC,Urine 1 /hpf (0-3); Specific Gravity,Urine 1.028 (1.001-1.035); Squamous Epithelial Cell,Urine < 1 /hpf (0-5); Urobilinogen,Urine Negative mg/dL (0.0-1.0); WBC,Urine 3 /hpf (0-5)
[2024-05-13 10:12] LABS: Respiratory Syncytial Virus Ag Negative (Negative)
[2024-05-13 10:49] LABS: Lactic Acid, 3 HR 1.7 mMol/L (0.4-2.0)
--- NOTE | 2024-05-13 11:25 | PC.NURSE ---
Dr. Quiñonez made aware at this time that pt failed Nurse's Swallow Screen; per Dr. Quiñonez, keep pt NPO for now; will put in order for Swallow/Speech pathologist. Dr. Bedoya also at bedside at this time and made aware. Per Dr. Bedoya, I will put the order in for speech pathologist to come see pt.
--- NOTE | 2024-05-13 12:06 | ESHP_ITS ---
<Statement entered by Michel See MD - 05/30/24 14:21> I reviewed above note and agree with findings and plans. I have also personally examined the patient with medicine team and went over assessment and plan with medical team including hospital intern and resident physician. Documentation for date of: 05/13/24 HPI History of Present Illness Chief complaint: altered mental status History of present illness: 69-year-old female with past medical history of prediabetes, CKD stage III A, hypertension, history of ulcers who was brought to the ED after being found unconscious on the floor. According to the son, patient daughter found the patient at 3 AM passed out on the floor and unresponsive. Family is unaware along the patient was on the floor. 2 days ago patient started to develop abdominal pain and weakness all over her body associated with some diarrhea and shortness of breath. Patient's abdominal pain comes and goes from right side to left side of the abdomen. Patient denies fevers, chills, headache, blurry vision, chest pain, nausea, vomiting. Patient will be admitted for sepsis secondary to pneumonia and altered mental status. ED course: Vitals significant for hypotension 87/61, tachycardia 104 bpm, tachypnea respiratory rate of 25, oxygen saturation 92% on 5 L nasal cannula. Labs significant for WBCs 24.3, bicarb 19.6, glucose 259, lactic acid 2.2, BNP 304, troponin 0.09. EKG showed sinus tachycardia, chest x-ray showed early right-sided pneumonia, head CT was negative, CT abdomen pelvis shows Suspect primary hepatocellular disease, No abdominal parenchymal laceration, no perinephric hematoma, Abdominal aorta intact, no free blood in the abdomen or pelvis, Normal appendix, No abdominal or pelvic abscess, Colonic diverticulosis, no diverticulitis, cervical spine CT showed No acute cervical fracture. 3 mm radiolucency in the C3 vertebral body as above, recommend 3 month follow-up. PA lateral cervical spine plain films follow-up, chest CTA showed Mild aneurysmal dilatation ascending thoracic aorta, AP dimension 4.3 cm, Pulmonary artery hypertension, negative for pulmonary artery emboli, Moderate vascular congestion, No pneumothorax or hemothorax, No pneumonia or pulmonary contusion, face CT showed no acute fracture, lumbar spine CT showed No acute lumbar fracture Severe acquired spinal stenosis L4-L5, thoracic CT negative. In the ED did give 1 L normal saline, ceftriaxone, azithromycin, PMHx: Prediabetes, CKD history IIIA, hypertension, history of ulcers SX Hx: None Social Hx: None FHx: Unknown Review of Systems Review of Systems Narrative Review of Systems: Narrative ROS GENERAL: Denies fevers/chills or diaphoresis. HEENT: Denies headache or visual/hearing changes. Denies nasal discharge. NEURO: Positive weakness CARDIO: Denies chest pain or palpitations. PULM: Positive SOB GI: Positive abdominal pain, denies N/V/C/D/reflux/gas, bright red blood per rectum or melena. Reports having BMs. URO: Denies burning/itching/pain/urinary changes. MSK/EXT/SKIN: Denies joint/skeletal/muscle pain, issues/changes in upper or lower extremities, itchiness, or superficial pain. PSYCH: Cooperative, pleasant mood & affect. The rest of the review of systems is otherwise negative. Exam Vital Signs Temp Pulse Resp BP Pulse Ox O2 Del Method O2 Flow Rate 98.9 F 112 H 24 H 128/70 99 Room Air 5 05/13/24 11:29 05/13/24 11:29 05/13/24 11:29 05/13/24 11:29 05/13/24 11:29 05/13/24 11:29 05/13/24 06:03 Narrative Exam Physical Exam GENERAL: NAD, AAO X3, pale, obese, generalized weakness HEENT: Moist mucosa. Eyes open, symmetrical, & clear CARDIO: No chest pain on palpation. Heart RRR, murmur heard on LUSB and mitral area PULM: States no shortness of breath. Lungs decreased lung sounds on the right GI: Abdomen soft, nondistended, pain on palpation from right to left. BSx4 SKIN/MSK/EXT: Bilateral lower extremity edema +1, no pain on palpation. Pedal pulses present B/L Neuro: AAO X3, no focal neurodeficits, able to move all 4 extremities Results: Labs 05/14/24 07:13 05/13/24 05:15 Labs: Short CBC 05/13/24 Range/Units 05:15 WBC 24.3 H (3.6-11.0) Thou/mm3 Hgb 8.0 L (12.0-16.0) g/dL Hct 25.6 L (36.0-46.0) % Plt Count 334 (140-440) Thou/mm3 BMP 05/13/24 05:15 Sodium 140 Potassium 4.0 Chloride 108 H Carbon Dioxide 19.6 L BUN 93 H Creatinine 1.3 Glucose 259 H Calcium 8.8 Cardiac Enzymes 05/13/24 Range/Units 05:15 Troponin I 0.090 H* (0.0-0.045) ng/mL Liver Function 05/13/24 Range/Units 05:15 Total Bilirubin 0.2 L (0.3-1.2) mg/dL AST 16 (0-34) U/L ALT 16 (10-49) U/L Alkaline Phosphatase 71 (46-116) U/L Albumin 3.2 L (3.4-4.8) gm/dL Urine 05/13/24 Range/Units 07:52 Urine Color Lt-Yellow (Lt Yel-Yel) Urine Clarity Clear (Clear/Hazy) Urine pH 5.0 (5.0-7.0) Ur Specific Hendricks 1.028 (1.001-1.035) Urine Protein Negative (Neg - Trace) Urine Glucose (UA) Negative (Negative) ABG Interpretation ABG results: 05/13/24 08:29 ABG pH 7.39 ABG pCO2 31 L ABG pO2 78 L ABG HCO3 19 L ABG O2 Saturation 96 ABG Base Excess -5 L Quality Measures Quality Measures VTE prophylaxis Advance care planning discussed with:: patient and child Medications Home Medications and Allergies Home Medications ?Medication ?Instructions ?Recorded ?Confirmed ?Type amlodipine 10 mg tablet 10 mg PO QDAY 11/16/23 05/13/24 History atorvastatin 80 mg tablet 80 mg PO QPM 11/16/23 05/13/24 History ergocalciferol (vitamin D2) 1,250 1,250 mcg PO QWEEK 11/16/23 05/13/24 History mcg (50,000 unit) capsule (Vitamin D2) glipizide 2.5 mg tablet 2.5 mg PO QDAY 11/16/23 05/13/24 History sitagliptin phosphate 100 mg 100 mg PO QDAY 11/16/23 05/13/24 History tablet (Januvia) folic acid 1 mg tablet 1 mg PO QDAY 05/13/24 05/13/24 History Allergies Allergy/AdvReac Type Severity Reaction Status Date / Time No Known Allergies Allergy Verified 11/19/23 18:02 Visit Medications Acetaminophen (Acetaminophen 325 Mg Tablet) 650 mg PO Q6H PRN PRN Reason: Fever >101.5 Stop: 06/12/24 11:57 Acetaminophen (Acetaminophen 325 Mg Tablet) 650 mg PO Q6H PRN PRN Reason: PAIN SCALE 1-3 (mild Stop: 06/12/24 11:57 Heparin Sodium (Porcine) (Heparin Sod Inj 5000 Unit/Ml Vial) 5,000 unit SC Q8HR ANGELICA Stop: 05/27/24 13:59 Ceftriaxone Sodium/Dextrose (Rocephin/D5w 1gm Iv Premix) 50 mls @ 100 mls/hr IV QDAY ANGELICA Stop: 05/20/24 12:03 Azithromycin 500 mg/ Sodium (Chloride) 250 mls @ 250 mls/hr IV QDAY ANGELICA Stop: 05/20/24 12:03 Ondansetron HCl (Ondansetron Inj 2 Mg/Ml Inj 2 Ml) 4 mg IV Q6H PRN; Protocol PRN Reason: NAUSEA OR VOMITING Stop: 06/12/24 11:57 Pantoprazole Sodium (Pantoprazole Inj 40 Mg Vial) 40 mg IVP Q12HR ANGELICA Stop: 06/12/24 20:59 Sennosides (Senna Tablet) 1 tab PO QDAY PRN; Protocol PRN Reason: constipation Stop: 06/12/24 11:57 Discontinued Medications Sodium Chloride (Ns) 1,000 mls @ 999 mls/hr IV .Q1H1M ONE Stop: 05/13/24 06:11 Last Infusion: 05/13/24 06:20 Dose: Infused Ceftriaxone Sodium 1,000 mg/ (Sodium Chloride) 50 mls @ 100 mls/hr IV X1 ONE Stop: 05/13/24 06:23 Last Infusion: 05/13/24 07:05 Dose: Infused Azithromycin 500 mg/ Sodium (Chloride) 250 mls @ 250 mls/hr IV X1 ONE Stop: 05/13/24 06:53 Last Infusion: 05/13/24 07:35 Dose: Infused Insulin Human Regular (Insulin Hum Regular 1 Unit/0.01 Ml (Per Unit)) 5 unit IV X1 ONE Stop: 05/13/24 07:08 Last Admin: 05/13/24 09:42 Dose: Not Given Assessment & Plan Plan 69-year-old female with past medical history of CKD stage III, prediabetes, hypertension who was found unconscious in her room. As well as diarrhea and shortness of breath. Admitted for sepsis secondary to pneumonia and acute metabolic encephalopathy. #Sepsis secondary to pneumonia On admission patient was found SIRS 4/4 tachycardic, tachypneic, WBCs 24.3, lactic acid of 2.2, with organ dysfunction namely altered mental status and right base pneumonia on chest x-ray Chest CTA does not show pneumonia In the ED was given 1 L NS, azithromycin and ceftriaxone Patient with shortness of breath and bilateral lower extremity edema, will hold on fluids at this time Lactic acid normalized -On ceftriaxone 1 g daily -On azithromycin 500mg q day -Blood cultures pending -Urine culture pending #Acute hypoxic respiratory failure secondary to #Acute decompensated heart failure #HFpEF 60-65% On admission patient tachycardic, tachypneic and hypoxic Chest x-ray with vascular congestion, and physical exam patient has bilateral lower extremity pitting edema Patient is currently short of breath while on 5 L nasal cannula, tachypneic BNP 304 Echo 03/2024 showed Normal LV size and function. Mild LVH. Estimated EF 60-65% Normal RV size and function. Mild to moderate mitral valve stenosis, mean gradient 8mmHg. Moderate MAC. Mild AI, MR, TR. Mild AV sclerosis without stenosis. -Bumex 1mg IV qday x1 -strict I&Os -daily weights -fluid restriction 1500ml #Acute metabolic encephalopathy #Recent fall #? Syncope #Generalized weakness Patient was found unconscious in his a.m. nonresponsive Head CT was negative EKG showed sinus tachycardia Patient failed bedside swallow eval -Brain MRI ordered -Orthostatic vitals ordered -speech eval pending -monitor telemetry #Troponinemia likely secondary to sepsis vs CHF elevated at 0.09 - no need to trend troponins #CKD stage III A Patient with bilateral lower extremity edema Creatinine 1.3, GFR of 45 #Normocytic anemia patient on admission with Hg of 8, MCV 95 - iron panel ordered - type and screen ordered #Hypertension will hold off BP meds at this time #Hx of ulcers on PPI prophylaxis Case discussed with my senior Dr. Quiñonez PGY-[address] Esa Soria MD PGY-1 Disposition: Tele Fluids: None Feeding: NPO, pending swallow eval Thrombo prophylaxis: Heparin Gastric Ulcer prophylaxis: Pantoprazole CODE STATUS: Full code Senior resident attestation: Patient evaluated and examined at the bedside, plan of care discussed with rest of the team including my attending physician, except as noted. 69-year-old female past medical history of peptic ulcer disease, prediabetes, CKD and hypertension brought into the ER after he was found unresponsive on the floor, accompanied by her son. At the time of evaluation patient was alert and oriented x 3, but feeling weak, reported generalized weakness, able to move all 4 extremities unable to turn herself in the bed, but overall power is decreased. #Sepsis, secondary to pneumonia: Met sepsis criteria, continue IV antibiotics, follow microbiology results #Altered mental status: Acute toxic encephalopathy likely secondary to sepsis and pneumonia, altered mental status now resolved. #Stroke rule out: CT imaging of the head did not show any acute hemorrhage, MRI brain shows equivocal restricted diffusion brainstem midodrine level recommend neurology consultation, significant stenosis P1 P2 segment of LAG SCREWER. Neurology consult ordered. #Acute CHF rule out: Noted 2+ pitting edema bilaterally, also complaining of shortness of breath while laying down, was very uncomfortable when patient was laying flat during our evaluation. Dunbar better on propping up, patient has a past medical history of CKD also could be a cause of fluid overload, get an echocardiogram to rule out CHF, BNP elevated #CKD stage III: #Acute anemia, concern for GI bleed, acute drop in hemoglobin, Hb 6.4, 1 PRBC ordered by night team, repeat Hb 7.1, #Peptic ulcer disease: Protonix loading dose 80 mg and followed by Protonix drip for GI bleed, get GI consult placed. Khang PGY2
--- NOTE | 2024-05-13 12:40 | PC.NURSE ---
Dr. Quiñonez at bedside and made aware that RN only able to perform supine and sitting VS for orthostatics VS but unable to perform standing VS due to pt's weakness and being unable to stand at this time. Per Dr. Quiñonez, that is ok.
--- NOTE | 2024-05-13 13:10 | PD.EDADDENDU ---
Emergency Room Addendum Addendum Narrative: I took over the care from Dr. Fernandez at 6 AM on 05/13/2024, see her notes for complete H&P. I reviewed all diagnostic test results. My interpretation of the EKG is sinus rhythm with nonspecific ST?T changes. My interpretation of the chest x-ray is infiltrates. My review of the CT reports is pneumonia. Blood tests and urine tests WBC 24.3, negative D-dimer, GLU 259, troponin 0.090, LA 2.2, and BNP 304. At this point, diagnoses include: AMS, sepsis, pneumonia, acute respiratory failure with hypoxia, elevated troponin, and elevated BNP. Treatment here included IV fluid and Rocephin and Zithromax and oxygen. Significant improvement not noted. I discussed the case with our hospitalist. About the presentation and exam and diagnostics and treatments here. And need of further care in the hospital. Will accept the patient. Ishan Ivey MD
[2024-05-13 14:14] LABS: Iron 105 mcg/dL (50-170); Percent Iron Saturation 32 % (20-55); Total Iron Binding Capacity 319 mcg/dL (250-425); Unsaturated Iron Binding 214 (225-295)
[2024-05-13] MEDS: BUMETANIDE INJ 0.25 MG/ML VIAL 4 ML 1 MG IVP (15:00)
[2024-05-13] MEDS: HEPARIN SOD INJ 5000 UNIT/ML VIAL SC ×2 (15:01→21:12)
[2024-05-13 16:33] LABS: Troponin I 0.189 ng/mL (0.0-0.045)
[2024-05-13] MEDS: SUCRALFATE SUSP 1 GM/10 ML UDC PO ×2 (17:59→21:12)
[2024-05-13] MEDS: ACETAMINOPHEN 325 MG TABLET 650 MG PO (17:59)
[2024-05-13 22:17] LABS: Troponin I 0.239 ng/mL (0.0-0.045)
[2024-05-13 23:34] LABS: OBS Card Lot # 22002; OBS Developer Lot # 23002; OBS Performed By martc6; OBS QC OK? Yes; Occult Blood, Stool Positive (Negative)
[2024-05-14] VITALS (10 sets, daily range): BP systolic 95–123; BP diastolic 52–79; PULSE 56–114; RESP 14–20; TEMP 36.2–36.9; O2SAT 91–100; BMI 37.8
[2024-05-14] MEDS: ONDANSETRON INJ 2 MG/ML INJ 2 ML 4 MG IV ×2 (00:02→12:31)
--- NOTE | 2024-05-14 00:35 | PC.NURSE ---
Dr. Coker in to see patient, ordered h/h and will monitor, if emesis continues will place NGT.
[2024-05-14 00:48] LABS: Hematocrit 20.7 % (36.0-46.0)
[2024-05-14 00:52] LABS: Hemoglobin 6.4 g/dL (12.0-16.0)
[2024-05-14] MEDS: LIDOCAINE 5% 1 PATCH TOP (03:28)
[2024-05-14 04:20] LABS: Troponin I 0.186 ng/mL (0.0-0.045)
[2024-05-14 08:01] LABS: Basophils % (Auto) 0 % (0-2.5); Eosinophils # (Auto) 0.1 Thou/mm3 (0.0-0.5); Eosinophils % (Auto) 0 % (0-10); Hematocrit 22.7 % (36.0-46.0); Immature Granulocytes % (Auto) 1 % (0-0); Immature Granulocytes Auto 0.19 Thou/mm3 (0.00-0.00); Lymphocytes # (Auto) 2.7 Thou/mm3 (1.0-4.8); Lymphocytes % (Auto) 18 % (10-50); Mean Corpuscular HGB Conc 32.2 g/dl (31.0-37.0); Mean Corpuscular Hemoglobin 27.2 pg (25.0-35.0); Mean Corpuscular Volume 85 fL (80-100); Monocytes # (Auto) 0.7 Thou/mm3 (0.0-0.8); Monocytes % (Auto) 5 % (0-12); Neutrophils # (Auto) 11.2 Thou/mm3 (1.8-7.7); Neutrophils % (Auto) 75 % (37-80); Nucleated Red Blood Cell # 0.11 Thou/mm3 (0.00-0.00); Nucleated Red Blood Cell % 1 /100 WBC (0); Platelet Count 217 Thou/mm3 (140-440); RDW Standard Deviation 45.3 fL (36.4-46.3); Red Blood Count 2.68 Miln/mm3 (4.00-5.20); White Blood Count 14.9 Thou/mm3 (3.6-11.0)
[2024-05-14 08:03] LABS: Hemoglobin 7.3 g/dL (12.0-16.0)
[2024-05-14 08:31] LABS: Alanine Aminotransferase 12 U/L (10-49); Albumin, Serum 2.8 gm/dL (3.4-4.8); Albumin/Globulin Ratio 1.4 (1.2-2.2); Alkaline Phosphatase 51 U/L (46-116); Anion Gap 10 (7-16); Aspartate Amino Transferase 10 U/L (0-34); BUN/Creatinine Ratio 54 Ratio (12-20); Bilirubin,Total 0.3 mg/dL (0.3-1.2); Blood Urea Nitrogen 43 mg/dL (9-23); Calcium 8.2 mg/dL (8.3-10.6); Calcium (Corrected) 9.2 mg/dL (8.5-10.1); Carbon Dioxide 21.4 mMol/L (20.0-31.0); Chloride 115 mMol/L (98-107); Creatinine (Component) 0.8 mg/dL (0.6-1.3); Glucose 173 mg/dL (74-106); Magnesium 1.9 mg/dL (1.6-2.6); Osmolality,Calculated 305 (275-295); Phosphorous 3.3 mg/dL (2.4-5.1); Potassium 3.3 mMol/L (3.4-5.1); Sodium 146 mMol/L (136-145); Thyroid Stimulating Hormone 0.92 uIU/mL (0.55-4.78); Total Protein 4.8 gm/dL (5.7-8.2); eGFR > 60 See Note
[2024-05-14] MEDS: PANTOPRAZOLE INJ 40 MG VIAL 80 MG IV (08:37)
[2024-05-14] MEDS: PANTOPRAZOLE/NS 80MG IV PREMIX 80 MG/100 ML BAG 10 MG IV ×2 (08:37→17:11)
[2024-05-14] MEDS: cefTRIAXone/D5w 1gm IV premix 50 ML IV (08:37)
[2024-05-14 08:48] LABS: Glucose Estimated Average 146 mg/dL (80-131); Hemoglobin A1C 6.7 % Hgb (4.8-6.0)
--- NOTE | 2024-05-14 09:30 | PC.SS ---
SS attempted to meet with pt at bs to discuss DC planning, pt was resting. Will attempt at a later time.
[2024-05-14] MEDS: AZITHROMYCIN INJ 500 MG in SODIUM CHLORIDE 0.9% 250 ML 250 ML 250 MG IV (10:04)
[2024-05-14] MEDS: SUCRALFATE SUSP 1 GM/10 ML UDC PO ×3 (11:28→20:24)
--- NOTE | 2024-05-14 11:46 | ESCONSULT_ITS ---
HPI Data of Consult Requesting Physician: Michel See MD Admitting Provider: Michel See MD Attending Provider: Michel See MD Primary Care Provider: Gagan Catherine Consult Narrative Reason for consult: Elevated troponins History of present illness: 69 y/o female with PMH of essential hypertension, gastric ulcers, hyperlipidemia, and DM2 was admitted to the hospital on 05/13/2024 due to acute encephalopathy likely secondary to sepsis secondary to CAP. In ED patient came in after being found unconscious on the floor at home by daughter. Initially was tachypneic, tachycardic, hypotensive, afebrile and hypoxic. Initial labs showed WBC 24.3, Hgb 8 (downtrended to 6.4 requiring 1 PRBC), Na 140, K+ 4, chloride 108, bicarb 19.6, BUN 93, Cr 1.3, glucose 259, lactic acid 2.2, troponins 0.09 (uptrended to 0.239 and downtrended), BNP 304, UA positive for bacteria, and fecal occult blood positive. 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 EKG showed sinus tachycardia with left ventricle hypertrophy with strain pattern. Echo from 04/26/2024 had the follwoing findings: Normal LV size and function. Mild LVH. Estimated EF 60-65% Normal RV size and function. Mild to moderate mitral valve stenosis, mean gradient 8mmHg. Moderate MAC. Mild AI, MR, TR. Mild AV sclerosis without stenosis During my assessment patient was drowsy, but able to answer AO questions and was AOx2 (not to time). She did not complaint of any chest pain or palpitations. Patient was able to localize her pain which was in the lower back. Per daughter at bedside patient has been having black stools since prior to admission. On chart review patient has had elevated troponins from previous admissions with most recent on 11/17/2023 of 0.097 and prior to this on 12/28/2021 was 0.065. EKG on this admission showed LVH with strain pattern and sinus tachycardia which is similiar to prior EKG on 11/22/2023. Patient does not seem fluid overloaded and is not complaining of any cardiac symptom at this time. Cardiology was consulted due to elevated troponins. PMH: essential hypertension, gastric ulcers, hyperlipidemia, and DM2 Social: Denies smoking, alcohol, or drugs cc:: cc: Michel See MD Review of Systems Review of Systems Narrative Review of Systems: Constitutional: Denies sweats, Denies weight loss/gain, Denies fever, Denies chills. HEENT: Denies hearing loss, Denies ear pain, Denies postnasal drip, Denies double vision, Denies blurry vision. Respiratory: Denies shortness of breath, Denies cough, Denies wheezing. Cardiovascular: Denies chest pain, Denies palpitations, Admits sudden loss of consciousness. GI: Denies blood in stool, Admits black stools, Denies constipation, Denies abdominal pain, Denies difficulty swallowing, Denies nausea or vomit. : Denies urinary incontinence, Denies pain while urinating, Denies increased urinary frequency. MSK: Admits joint pain, Denies joint swelling, Denies numbness. Skin: Denies rash, Denies itching, Denies easy bruising. Neuro: Denies headaches, Denies dizziness, Denies seizures. Past Medical History Past Medical History Comments PMH COMMENT: PMH: essential hypertension, gastric ulcers, hyperlipidemia, and DM2 Social: Denies smoking, alcohol, or drugs Exam Vital Signs Temp Pulse Resp BP Pulse Ox O2 Del Method O2 Flow Rate 97.1 F 56 L 19 121/54 L 100 Room Air 1 05/14/24 08:00 05/14/24 08:00 05/14/24 08:00 05/14/24 08:00 05/14/24 08:00 05/14/24 08:00 05/14/24 04:50 Narrative Exam General: A/O x2 (not to time), no acute distress, obese Eyes: PERRL, EOMI. Anicteric, vision grossly intact. Ears: No ear pain, no ear discharge, Hearing grossly intact. Nose: No nasal discharge. Mouth/Throat: Dry mucous membranes, no redness, no lesions. Neck: Short neck , non-tender, no cervical lymphadenopathy. Lungs: Clear FERNANDO to auscultation and percussion, No accessory muscle use. Cardio: Normal S1/S2, regular rhythm, systolic murmurs, no JVD Abdomen: Soft, non-tender, no palpable masses, peristalsis present, no guarding or rebound. Extremities: Symmetrical, no significant deformities, trace peripheral edema , non-tender, peripheral pulses presents. Skin: No rashes, no lesions, warm to touch. Neuro: No focal neurological deficits. motor and sensory intact Psych: Cooperative, appropriate mood and effect. Results Labs 05/14/24 15:55 05/14/24 07:13 Labs: Short CBC 05/13/24 05/14/24 Range/Units 21:10 07:13 WBC 14.9 H D (3.6-11.0) Thou/mm3 Hgb 6.4 L* 7.3 L (12.0-16.0) g/dL Hct 20.7 L* 22.7 L (36.0-46.0) % Plt Count 217 D (140-440) Thou/mm3 BMP 05/14/24 07:13 Sodium 146 H Potassium 3.3 L D Chloride 115 H Carbon Dioxide 21.4 BUN 43 H Creatinine 0.8 D Glucose 173 H D Calcium 8.2 L Cardiac Enzymes 05/13/24 05/13/24 05/14/24 Range/Units 15:37 21:10 03:00 Troponin I 0.189 H* 0.239 H* 0.186 H* (0.0-0.045) ng/mL Liver Function 05/14/24 Range/Units 07:13 Total Bilirubin 0.3 (0.3-1.2) mg/dL AST 10 (0-34) U/L ALT 12 (10-49) U/L Alkaline Phosphatase 51 D (46-116) U/L Albumin 2.8 L (3.4-4.8) gm/dL ABG Interpretation ABG results: 05/13/24 08:29 ABG pH 7.39 ABG pCO2 31 L ABG pO2 78 L ABG HCO3 19 L ABG O2 Saturation 96 ABG Base Excess -5 L Quality Measures Quality Measures VTE prophylaxis Advance care planning discussed with:: patient and child Medications Home Medications and Allergies Home Medications ?Medication ?Instructions ?Recorded ?Confirmed ?Type amlodipine 10 mg tablet 10 mg PO QDAY 11/16/23 05/13/24 History atorvastatin 80 mg tablet 80 mg PO QPM 11/16/23 05/13/24 History ergocalciferol (vitamin D2) 1,250 1,250 mcg PO QWEEK 11/16/23 05/13/24 History mcg (50,000 unit) capsule (Vitamin D2) glipizide 2.5 mg tablet 2.5 mg PO QDAY 11/16/23 05/13/24 History sitagliptin phosphate 100 mg 100 mg PO QDAY 11/16/23 05/13/24 History tablet (Januvia) folic acid 1 mg tablet 1 mg PO QDAY 05/13/24 05/13/24 History Allergies Allergy/AdvReac Type Severity Reaction Status Date / Time No Known Allergies Allergy Verified 11/19/23 18:02 Visit Medications Acetaminophen (Acetaminophen 325 Mg Tablet) 650 mg PO Q6H PRN PRN Reason: Fever >101.5 Stop: 06/12/24 11:57 Acetaminophen (Acetaminophen 325 Mg Tablet) 650 mg PO Q6H PRN PRN Reason: PAIN SCALE 1-3 (mild Stop: 06/12/24 11:57 Last Admin: 05/13/24 17:59 Dose: 650 mg Ceftriaxone Sodium/Dextrose (Rocephin/D5w 1gm Iv Premix) 50 mls @ 100 mls/hr IV QDAY [facility] Stop: 05/21/24 08:59 Last Admin: 05/14/24 08:37 Dose: 100 mls/hr Azithromycin 500 mg/ Sodium (Chloride) 250 mls @ 250 mls/hr IV QDAY [facility]; Protocol Stop: 05/21/24 08:59 Last Admin: 05/14/24 10:04 Dose: 250 mls/hr Pantoprazole Sodium (Protonix/Ns 80mg Iv Premix) 80 mg in 100 mls @ 10 mls/hr IV Q10H [facility] Stop: 05/17/24 06:03 Last Admin: 05/14/24 08:37 Dose: 10 mls/hr Ondansetron HCl (Ondansetron Inj 2 Mg/Ml Inj 2 Ml) 4 mg IV Q6H PRN; Protocol PRN Reason: NAUSEA OR VOMITING Stop: 06/12/24 11:57 Last Admin: 05/14/24 00:02 Dose: 4 mg Sennosides (Senna Tablet) 1 tab PO QDAY PRN; Protocol PRN Reason: constipation Stop: 06/12/24 11:57 Sucralfate (Sucralfate Susp 1 Gm/10 Ml Udc) 1 gm PO QID ANGELICA Stop: 06/12/24 16:59 Last Admin: 05/14/24 11:28 Dose: 1 gm Discontinued Medications Azithromycin (Azithromycin 250 Mg Tablet) 500 mg PO QDAY ANGELICA Stop: 05/21/24 08:59 Bumetanide (Bumetanide Inj 0.25 Mg/Ml Vial 4 Ml) 1 mg IVP X1 ONE Stop: 05/13/24 13:11 Last Admin: 05/13/24 15:00 Dose: 1 mg Heparin Sodium (Porcine) (Heparin Sod Inj 5000 Unit/Ml Vial) 5,000 unit SC Q8HR ANGELICA Stop: 05/27/24 13:59 Last Admin: 05/13/24 21:12 Dose: 5,000 unit Sodium Chloride (Ns) 1,000 mls @ 999 mls/hr IV .Q1H1M ONE Stop: 05/13/24 06:11 Last Infusion: 05/13/24 06:20 Dose: Infused Ceftriaxone Sodium 1,000 mg/ (Sodium Chloride) 50 mls @ 100 mls/hr IV X1 ONE Stop: 05/13/24 06:23 Last Infusion: 05/13/24 07:05 Dose: Infused Azithromycin 500 mg/ Sodium (Chloride) 250 mls @ 250 mls/hr IV X1 ONE Stop: 05/13/24 06:53 Last Infusion: 05/13/24 07:35 Dose: Infused Ceftriaxone Sodium/Dextrose (Rocephin/D5w 1gm Iv Premix) 50 mls @ 100 mls/hr IV QDAY [facility] Stop: 05/20/24 12:03 Last Admin: 05/13/24 12:20 Dose: Not Given Azithromycin 500 mg/ Sodium (Chloride) 250 mls @ 250 mls/hr IV QDAY [facility] Stop: 05/20/24 12:03 Last Admin: 05/13/24 12:20 Dose: Not Given Ceftriaxone Sodium/Dextrose (Rocephin/D5w 1gm Iv Premix) 50 mls @ 100 mls/hr IV QDAY ANGELICA Stop: 05/21/24 08:59 Sodium Chloride (Ns) 1,000 mls @ 999 mls/hr IV .Q1H1M ONE Stop: 05/13/24 13:47 Last Infusion: 05/13/24 13:55 Dose: Infused Azithromycin 500 mg/ Sodium (Chloride) 250 mls @ 250 mls/hr IV X1 ONE; Protocol Stop: 05/13/24 14:14 Potassium Chloride (Kcl Ivpb) 10 meq in 100 mls @ 100 mls/hr IV Q1H ANGELICA Stop: 05/14/24 12:46 Insulin Human Regular (Insulin Hum Regular 1 Unit/0.01 Ml (Per Unit)) 5 unit IV X1 ONE Stop: 05/13/24 07:08 Last Admin: 05/13/24 09:42 Dose: Not Given Lidocaine (Lidocaine 5% 1 Patch) 1 patch TOP X1 ONE Stop: 05/14/24 03:21 Last Admin: 05/14/24 03:28 Dose: 1 patch Pantoprazole Sodium (Pantoprazole Inj 40 Mg Vial) 40 mg IVP Q12HR ANGELICA Stop: 06/12/24 20:59 Pantoprazole Sodium (Pantoprazole 40 Mg Tablet) 40 mg PO QDAY ANGELICA Stop: 06/13/24 08:59 Pantoprazole Sodium (Pantoprazole Inj 40 Mg Vial) 80 mg IV X1 ONE Stop: 05/14/24 08:03 Last Admin: 05/14/24 08:37 Dose: 80 mg Potassium Chloride (Potassium Chloride 20 Meq Tabcr) 40 meq PO X1 ONE Stop: 05/14/24 11:40 Assessment & Plan Plan 69 y/o female with PMH of essential hypertension, gastric ulcers, hyperlipidemia, and DM2 was admitted to the hospital on 05/13/2024 due to acute encephalopathy likely secondary to sepsis secondary to CAP. 1. NSTEMI Type II -Patient has had elevated troponins from previous admissions with most recent on 11/17/2023 of 0.097 and prior to this on 12/28/2021 was 0.065 -On this admission intial troponins 0.09, uptrended to 0.239 and downtrended. -NSTEMI type II most likley in the setting of sepsis as patient has no chest pain. -EKG on this admission showed LVH with strain pattern and sinus tachycardia which is similiar to prior EKG on 11/22/2023 -CLARY ACS score of 115 points, 7% probability of Plan: -No heparin drip at this time given the sevre anemia and possible GI bleed -No need for further troponins -Recommend to place patient on high intensity statin and aspirin if GI is okay with starting aspirin and there are no other contraindications. 2. Acute decompensated heart failure (EF 60-65%) 3.Essential Hypertension -Patient has some SOB, trace edema and initial BNP was 309 -CXR did show some vascular congestion -Echo from 04/26/2024 had the following findings: Normal LV size and function. Mild LVH. Estimated EF 60-65% Normal RV size and function. Mild to moderate mitral valve stenosis, mean gradient 8mmHg. Moderate MAC. Mild AI, MR, TR. Mild AV sclerosis without stenosis Plan: -No need for new echo -Hold diuresis in the setting of sepsis and soft BP -Strict CACHORRO's -Fluid restrictions -Low sodium diet -Daily weights -Recommend to potassium and magnessium above 4 and 2 respectively to avoid any arrhythmias. 4. Severe anemia - mosly sec to acute blood loss anemia 4. Sepsis 2/2 community aciquired pneumonia 5. Community acquired pneumonia 6.Acute Encephalopathy -Continue current management as per primary care team 7. Hx Gastric ulcers 8. Acute blood loss anemia 9. GI bleed -Patient received 1 PRBC -Continue current management as per primary care team 10.DM2 11. Hyperlipidemia -Continue current management as per primary care team Continue rest of management as per primary team. We are grateful to be able to participate in Mrs. Castellanos's care. Thank you for the consult Plan of care discussed with attending [place], Dr. Susan Spears MD PGY-1 Attending Provider Attestation/Addendum I have personally seen and examined the patient separately on the above date of service and discussed the plan of care with the resident. I reviewed the resident Dr. Merino consultation progress note and agree with the resident findings and plan in the note above and have also edited the documentation to reflect my findings and plan. 63-year-old female with a past medical history of morbid obesity, presented hypertension, hyperlipidemia, type 2 diabetes mellitus, history of Significant history of GI bleed few months ago as per the daughter presenting for further evaluation of patient was found unconscious on the at home by the daughter. Cardiology was consulted for further evaluation of elevated troponins. Patient troponin peaked at 0.239. Nontender. NT proBNP on admission was 304. Patient EKG showed normal sinus rhythm with LVH with strain pattern but no other acute ST-T changes history of ischemia. Patient did have an echocardiogram on April 26, 2024 recently which showed normal LV and RV function with an EF of 60 to 65%. Mild LVH and mild to moderate mitral stenosis, moderate MAC mild AI MR and TR and mild aortic valve sclerosis without stenosis. A chest CT was done which showed ascending thoracic aneurysm at 4.3 with pulmonary hypertension along with moderate vascular congestion. Patient had núñez CT including abdominal pelvis CT along with a lumbar spine CT which showed spinal stenosis. Patient encephalopathy and a brain MRI/MRA showed equivocal history today for perfuse GEN and brainstem medical elevators and significant stenosis of right P1 and P2 segments of the posterior cerebral artery. Chest x-ray shows questionable pneumonia at the right base. Labs showed patient's hemoglobin was as low as 6.4 and BUN was 93 and creatinine was 1.3 rest of the labs were close to the normal range. 1. Elevated troponins-NSTEMI type II in the setting of supply/demand mismatch with severe anemia as well as questionable sepsis from community-acquired pneumonia. As noted clinical EKG without any acute ST-T changes and only showed elevated strain pattern. Echo also notable with normal RV function but grade 1 diastolic dysfunction. Recommend no heparin drip in view of possible GI bleed globin 6.2 and BUN of 90 and upper GI bleed while the creatinine is one 1.3. Recommend no heparin drip at the present point of time because of the patient's history of gastric ulcers and now has severe anemia. 2. Severe acute anemia with hemoglobin of 6.2 requiring transfusions History of gastric ulcers Patient does have a history of gastric ulcer and recommend GI consult for further evaluation is a BUN of 93 and creatinine was 1.3 on admission which is mostly secondary to possible upper GI bleed. Transfuse as needed and keep the hemoglobin between 8 and 9. 3. Diastolic congestive heart failure: Patient does not appear to be volume overloaded and is actually well and depleted secondary to GI bleed. Strict improvement, daily weights and no need of any Lasix or diuresis at the present point even though there is some edema along with some vascular congestion on the x-ray.. Continue to monitor renal function closely. Strict input output, daily 4. Valvular heart disease: On examination patient does have almost both in the aortic as well as in the mitral area and keep taking subjectively of mitral and aortic valve disease. Echo only showed mild to moderate mitral valve stenosis with a mean gradient of 8 mmHg along with aortic valve sclerosis. Patient also has moderate to severe MAC. Recommend to follow-up with cardiology regularly as outpatient. Management of rest of the medical conditions as per primary team and other consultants. Thank you for the consult and allowing me to participate in the care of the patient. Cardiology will continue to follow. Jalen Davis M.D. Interventional Cardiology Jalen Davis M.D. Interventional Cardiology
[2024-05-14] MEDS: POTASSIUM CHLORIDE 20 mEq TABCR 40 MEQ PO (12:18)
[2024-05-14] MEDS: HYDROmorphone INJ 2 MG/ML VIAL 0.25 MG IVP (13:41)
--- NOTE | 2024-05-14 13:52 | ESPR_ITS ---
<Statement entered by Michel See MD - 05/30/24 14:21> I reviewed above note and agree with findings and plans. I have also personally examined the patient with medicine team and went over assessment and plan with medical team including consultants intern and resident physician. Documentation for date of: 05/14/24 Subjective Subjective Interval history: Patient examined at bedside today. Overnight events included an episode of hematemesis and bloody stool. Patient reports she is having abdominal pain at this time. Also reports she is also having some back pain that has been going on for some time. Family present at bedside. No complaints this time Exam Vital Signs Temp Pulse Resp BP Pulse Ox O2 Del Method O2 Flow Rate 97.6 F 95 19 112/52 L 91 L Room Air 1 05/14/24 12:05/14/24 12:05/14/24 12:05/14/24 12:05/14/24 12:05/14/24 12:05/14/24 04:50 Narrative Exam General: AAOx3, NAD, pleasant obese female, does not speak fluent indonesian HEENT: Dry mucous membranes, pale conjunctiva, EOMI, PERRLA, Cardiovascular: S1, S2, murmur appreciated, radial pulses +2 bilat, RRR Pulmonary: CTAB bilat no cough, no wheezing GI: No tenderness to light or deep palpitation, no guarding, rigidity, rebound tenderness or distension Extremities: No presence of trace or pitting edema in lower extremities bilaterally, dorsalis pedis pulses +2 bilaterally Back: Paraspinal tenderness bilat in mid thoracic spine Neuro: AAOx3, no focal motor or sensory deficits in the UE or LE bilat Psych: Cooperative. Objective Labs 05/15/24 05:27 05/15/24 05:27 Labs: Laboratory Results - last 24 hr 05/13/24 05/13/24 05/13/24 05:15 06:42 15:37 WBC RBC Hgb Hct MCV MCH MCHC RDW Std Deviation Plt Count Neut % (Auto) Lymph % (Auto) [place] % (Auto) Eos % (Auto) Baso % (Auto) Neut # (Auto) Lymph # (Auto) [place] # (Auto) Eos # (Auto) Baso # (Auto) Immature Gran # (Auto) Absolute Nucleated RBC Immature Gran % Nucleated RBC % Sodium Potassium Chloride Carbon Dioxide Anion Gap BUN Creatinine Estim Creat Clear Calc eGFR BUN/Creatinine Ratio Glucose Estimated Ave Glu mg/dL Hemoglobin A1c Calculated Osmolality Calcium Corrected Calcium Phosphorus Magnesium Iron 105 TIBC 319 Iron Saturation 32 Unsat Iron Binding 214 L Total Bilirubin AST ALT Alkaline Phosphatase Troponin I 0.189 H* Total Protein Albumin Globulin Albumin/Globulin Ratio TSH Stool Occult Blood Blood Type O Positive Antibody Screen NEGATIVE Crossmatch See Detail Blood Bank Wristband ID Yes 05/13/24 05/13/24 05/14/24 21:10 23:34 03:00 WBC RBC Hgb 6.4 L* Hct 20.7 L* MCV MCH MCHC RDW Std Deviation Plt Count Neut % (Auto) Lymph % (Auto) [place] % (Auto) Eos % (Auto) Baso % (Auto) Neut # (Auto) Lymph # (Auto) [place] # (Auto) Eos # (Auto) Baso # (Auto) Immature Gran # (Auto) Absolute Nucleated RBC Immature Gran % Nucleated RBC % Sodium Potassium Chloride Carbon Dioxide Anion Gap BUN Creatinine Estim Creat Clear Calc eGFR BUN/Creatinine Ratio Glucose Estimated Ave Glu mg/dL Hemoglobin A1c Calculated Osmolality Calcium Corrected Calcium Phosphorus Magnesium Iron TIBC Iron Saturation Unsat Iron Binding Total Bilirubin AST ALT Alkaline Phosphatase Troponin I 0.239 H* 0.186 H* Total Protein Albumin Globulin Albumin/Globulin Ratio TSH Stool Occult Blood Positive A Blood Type Antibody Screen Crossmatch Blood Bank Wristband ID 05/14/24 07:13 WBC 14.9 H D RBC 2.68 L Hgb 7.3 L Hct 22.7 L MCV 85 MCH 27.2 MCHC 32.2 RDW Std Deviation 45.3 Plt Count 217 D Neut % (Auto) 75 Lymph % (Auto) 18 [place] % (Auto) 5 Eos % (Auto) 0 Baso % (Auto) 0 Neut # (Auto) 11.2 H Lymph # (Auto) 2.7 [place] # (Auto) 0.7 Eos # (Auto) 0.1 Baso # (Auto) 0.0 Immature Gran # (Auto) 0.19 H Absolute Nucleated RBC 0.11 H Immature Gran % 1 H Nucleated RBC % 1 H Sodium 146 H Potassium 3.3 L D Chloride 115 H Carbon Dioxide 21.4 Anion Gap 10 BUN 43 H Creatinine 0.8 D Estim Creat Clear Calc 61.0 eGFR > 60 BUN/Creatinine Ratio 54 H Glucose [address] Glu mg/dL 146 H Hemoglobin A1c 6.7 H Calculated Osmolality 305 H Calcium 8.2 L Corrected Calcium 9.2 Phosphorus 3.3 Magnesium 1.9 Iron TIBC Iron Saturation Unsat Iron Binding Total Bilirubin 0.3 AST 10 ALT 12 Alkaline Phosphatase 51 D Troponin I Total Protein 4.8 L Albumin 2.8 L Globulin 2.0 L Albumin/Globulin Ratio 1.4 TSH 0.92 Stool Occult Blood Blood Type Antibody Screen Crossmatch Blood Bank Wristband ID ABG Interpretation ABG results: 05/13/24 08:29 ABG pH 7.39 ABG pCO2 31 L ABG pO2 78 L ABG HCO3 19 L ABG O2 Saturation 96 ABG Base Excess -5 L Quality Measures Quality Measures VTE prophylaxis Advance care planning discussed with:: patient Assessment & Plan Assessment Current Active Medications: Generic Name Dose Route Start Last Admin Trade Name Freq PRN Reason Stop Dose Admin Acetaminophen 650 mg 05/13/24 11:58 Acetaminophen 325 Mg Tablet PO 06/12/24 11:57 Q6H PRN Fever >101.5 Acetaminophen 650 mg 05/13/24 11:58 05/13/24 17:59 Acetaminophen 325 Mg Tablet PO 06/12/24 11:57 650 mg Q6H PRN Administration PAIN SCALE 1-3 (mild Ceftriaxone Sodium/Dextrose 50 mls @ 100 mls/hr 05/14/24 09:00 05/14/24 08:37 Rocephin/D5w 1gm Iv Premix IV 05/21/24 08:59 100 mls/hr QDAY ANGELICA Administration Azithromycin 500 mg/ Sodium 250 mls @ 250 mls/hr 05/14/24 09:00 05/14/24 10:04 Chloride IV 05/21/24 08:59 250 mls/hr QDAY ANGELICA Administration Protocol Pantoprazole Sodium 80 mg in 100 mls @ 10 mls/hr 05/14/24 08:04 05/14/24 08:37 Protonix/Ns 80mg Iv Premix IV 05/17/24 06:03 10 mls/hr Q10H ANGELICA Administration Ondansetron HCl 4 mg 05/13/24 11:58 05/14/24 12:31 Ondansetron Inj 2 Mg/Ml Inj 2 Ml IV 06/12/24 11:57 4 mg Q6H PRN Administration NAUSEA OR VOMITING Protocol Sennosides 1 tab 05/13/24 11:58 Senna Tablet PO 06/12/24 11:57 QDAY PRN constipation Protocol Sucralfate 1 gm 05/13/24 17:00 05/14/24 11:28 Sucralfate Susp 1 Gm/10 Ml Udc PO 06/12/24 16:59 1 gm QID ANGELICA Administration Plan Assessment 69-year-old female with past medical history of CKD stage III, prediabetes, hypertension who was found unconscious in her room. As well as diarrhea and shortness of breath. Admitted for sepsis secondary to pneumonia and acute metabolic encephalopathy. #GI bleed #Symptomatic anemia #Acute blood loss anemia #History of peptic ulcer disease Likely upper GI bleed, related to peptic ulcer disease Patient had 1 episode of hematemesis and blood in stool last night Patient was FOBT positive Patient has had previous EGD which showed ulcers Hemoglobin overnight was ~6.7 Status post 1 PRBC, repeat H&H shows hemoglobin of 7.3 Patient has blood pressure that is holding for now, we will hold off on fluids at this time since patient does have CKD and heart failure Plan: ?GI consulted, appreciate recs ?H&H at 1600 ?Transfusion protocol below 7 hemoglobin ?Protonix loading dose, Protonix drip ?Carafate suspension 4 times daily ?Trend CBC #Sepsis secondary to pneumonia, improving On admission patient was found SIRS 4/4 tachycardic, tachypneic, WBCs 24.3, lactic acid of 2.2, with organ dysfunction namely altered mental status and right base pneumonia on chest x-ray Chest CTA does not show pneumonia In the ED was given 1 L NS, azithromycin and ceftriaxone Patient with shortness of breath and bilateral lower extremity edema, will hold on fluids at this time Lactic acid normalized, will not trend anymore Have to limit fluids due to patient's renal and heart disease Day 2 antibiotics Blood cultures no growth after 1 day Plan: -On ceftriaxone 1 g daily -On azithromycin 500mg q day -Follow-up urine culture #Acute hypoxic respiratory failure secondary to #Acute decompensated heart failure #HFpEF 60-65% On admission patient tachycardic, tachypneic and hypoxic Chest x-ray with vascular congestion, and physical exam patient has bilateral lower extremity pitting edema Patient is currently short of breath while on 5 L nasal cannula, tachypneic BNP 304 Echo 03/2024 showed Normal LV size and function. Mild LVH. Estimated EF 60-65% Normal RV size and function. Mild to moderate mitral valve stenosis, mean gradient 8mmHg. Moderate MAC. Mild AI, MR, TR. Mild AV sclerosis without stenosis. Bumex 1 mg status post yesterday Will not diurese at this time due to patient having GI bleed and soft blood pressure Plan: -strict I&Os -daily weights -fluid restriction 1500ml #Acute metabolic encephalopathy #Recent fall #? Syncope #Generalized weakness Patient was found unconscious in his a.m. nonresponsive Head CT was negative EKG showed sinus tachycardia Patient failed bedside swallow eval Brain MRI with MRA shows significant stenoses in posterior cerebral artery Patient does have significant spinal stenosis at L4-L5 Scans show no acute fractures Encephalopathy could be related to symptomatic anemia Plan: ?Neurology consulted, appreciate recs -Brain MRI ordered -Orthostatic vitals ordered -speech eval pending -monitor telemetry #Troponinemia, resolved #NSTEMI, type II related to demand ischemia, resolved Likely secondary to sepsis and GI bleed Peaked at 0.239 Plan: ?Will not trend troponins at this #CKD stage III A Patient with bilateral lower extremity edema Creatinine 1.3, GFR of 45 Plan: ?Avoid nephrotoxic agents ?Renally dose medicines #hx of Hypertension Plan: -Will hold off BP meds at this time due to blood pressure being soft #Health Maintenance Disposition: Telemetry DVT prophylaxis: Heparin subcu GI prophylaxis: Protonix Diet: N.p.o., pending swallow eval CODE STATUS: Full Patient seen and care discussed with my senior resident, Dr. Quiñonez , and my attending physician, Dr. Esa Mathews, PGY-1 Senior resident attestation: Patient evaluated and examined at the bedside, plan of care discussed with rest of the team including my attending physician, except as noted. 69-year-old female past medical history of peptic ulcer disease, prediabetes, CKD and hypertension brought into the ER after he was found unresponsive on the floor, accompanied by her son. At the time of evaluation patient was alert and oriented x 3, but feeling weak, reported generalized weakness, able to move all 4 extremities unable to turn herself in the bed, but overall power is decreased. #Sepsis, secondary to pneumonia: Met sepsis criteria, continue IV antibiotics, follow microbiology results #Altered mental status: Acute toxic encephalopathy likely secondary to sepsis and pneumonia, altered mental status now resolved. #Stroke rule out: CT imaging of the head did not show any acute hemorrhage, MRI brain shows equivocal restricted diffusion brainstem midodrine level recommend neurology consultation, significant stenosis P1 P2 segment of SASH FINISHER. Neurology consult ordered. #Acute CHF rule out: Noted 2+ pitting edema bilaterally, also complaining of shortness of breath while laying down, was very uncomfortable when patient was laying flat during our evaluation. [place] better on propping up, patient has a past medical history of CKD also could be a cause of fluid overload, get an echocardiogram to rule out CHF, BNP elevated #CKD stage III: #Acute anemia, concern for GI bleed, acute drop in hemoglobin, Hb 6.4, 1 PRBC ordered by night team, repeat Hb 7.1, #Peptic ulcer disease: Protonix loading dose 80 mg and followed by Protonix drip for GI bleed, get GI consult placed. On physical exam this a.m., abdomen is tender in the epigastrium, but soft and nondistended. Gastroenterology was consulted, plan for EGD tomorrow morning. Quresh PGY2
--- NOTE | 2024-05-14 15:17 | PD.IMCONS ---
HPI Data of Consult Requesting Physician: Michel See MD Primary Care Provider: Gagan Catherine Consult Narrative Reason for consult: H/H 6.4/20.7 History of present illness: 69 years old female admitted to the hospital after she was found on the floor by her daughter She has a history of gastric ulcers on an endoscopy done on 11/17/2023 Showing gastric ulcers 1 ulcer was 1 cm segment was 3 cm no visible blood vessel she did very well conservatively Failure presenting hemoglobin hematocrit of 8.0 and 25.6 and a right base pneumonia with sepsis hypotension Patient does have a history of CKD stage III essential hypertension cc:: cc: Michel See MD Review of Systems Review of Systems ROS Unobtainable: unobtainable due to medical condition Past Medical History Surgical History OTHER SURGICAL HX: As in the history of present illness Meds Home Medications and Allergies Home Medications ?Medication ?Instructions ?Recorded ?Confirmed ?Type amlodipine 10 mg tablet 10 mg PO QDAY 11/16/23 05/13/24 History atorvastatin 80 mg tablet 80 mg PO QPM 11/16/23 05/13/24 History ergocalciferol (vitamin D2) 1,250 1,250 mcg PO QWEEK 11/16/23 05/13/24 History mcg (50,000 unit) capsule (Vitamin D2) glipizide 2.5 mg tablet 2.5 mg PO QDAY 11/16/23 05/13/24 History sitagliptin phosphate 100 mg 100 mg PO QDAY 11/16/23 05/13/24 History tablet (Januvia) folic acid 1 mg tablet 1 mg PO QDAY 05/13/24 05/13/24 History Allergies Allergy/AdvReac Type Severity Reaction Status Date / Time No Known Allergies Allergy Verified 11/19/23 18:02 Exam Vital Signs Temp Pulse Resp BP Pulse Ox O2 Del Method O2 Flow Rate 97.6 F 95 19 112/52 L 91 L Room Air 1 05/14/24 12:00 05/14/24 12:00 05/14/24 12:00 05/14/24 12:00 05/14/24 12:00 05/14/24 12:00 05/14/24 04:50 Constitutional Comments: Chronically ill-appearing Routine Respiratory Exam Comments: Scattered rhonchi Routine Abdominal Exam Comments: Soft nontender Results Labs 05/14/24 07:13 05/14/24 07:13 Labs: Short CBC 05/13/24 05/14/24 Range/Units 21:10 07:13 WBC 14.9 H D (3.6-11.0) Thou/mm3 Hgb 6.4 L* 7.3 L (12.0-16.0) g/dL Hct 20.7 L* 22.7 L (36.0-46.0) % Plt Count 217 D (140-440) Thou/mm3 BMP 05/14/24 07:13 Sodium 146 H Potassium 3.3 L D Chloride 115 H Carbon Dioxide 21.4 BUN 43 H Creatinine 0.8 D Glucose 173 H D Calcium 8.2 L Cardiac Enzymes 05/13/24 05/13/24 05/14/24 Range/Units 15:37 21:10 03:00 Troponin I 0.189 H* 0.239 H* 0.186 H* (0.0-0.045) ng/mL Liver Function 05/14/24 Range/Units 07:13 Total Bilirubin 0.3 (0.3-1.2) mg/dL AST 10 (0-34) U/L ALT 12 (10-49) U/L Alkaline Phosphatase 51 D (46-116) U/L Albumin 2.8 L (3.4-4.8) gm/dL ABG Interpretation ABG results: 05/13/24 08:29 ABG pH 7.39 ABG pCO2 31 L ABG pO2 78 L ABG HCO3 19 L ABG O2 Saturation 96 ABG Base Excess -5 L Assessment and Plan Additional Assessment & Plan Additional Plan: # Acute posthemorrhagic anemia most likely due to the bleeding gastric ulcer Clear liquid diet IV Protonix N.p.o. midnight tonight for a upper endoscopy tomorrow consent will be obtained Serial CBC And transfuse as necessary for hemoglobin of below 7.0 # Altered mental status hepatic/metabolic encephalopathy # Right basilar pneumonia # Acute hypoxic respiratory failure # Hypertension # CKD stage III Thank you very much for the opportunity to participate in the care of this patient
--- NOTE | 2024-05-14 15:58 | PC.SS ---
Rounding: Pending echo, cardio reccs, GI for EGD
[2024-05-14] MEDS: HYDROmorphone INJ 2 MG/ML VIAL 0.5 MG IVP ×2 (16:00→23:16)
[2024-05-14 16:18] LABS: Hematocrit 25.4 % (36.0-46.0)
[2024-05-14 16:24] LABS: Hemoglobin 8.2 g/dL (12.0-16.0)
--- NOTE | 2024-05-14 20:44 | PD.VCONSULT1 ---
Telemedicine visit statement This visit was conducted with the use of interactive audio and video telecommunications system that permits real time communication between the patient and the provider. Patient's verbal consent for virtual visit was obtained on 05/14/24 at 2044. Meds Home Medications and Allergies Home Medications ?Medication ?Instructions ?Recorded ?Confirmed ?Type amlodipine 10 mg tablet 10 mg PO QDAY 11/16/23 05/13/24 History atorvastatin 80 mg tablet 80 mg PO QPM 11/16/23 05/13/24 History ergocalciferol (vitamin D2) 1,250 1,250 mcg PO QWEEK 11/16/23 05/13/24 History mcg (50,000 unit) capsule (Vitamin D2) glipizide 2.5 mg tablet 2.5 mg PO QDAY 11/16/23 05/13/24 History sitagliptin phosphate 100 mg 100 mg PO QDAY 11/16/23 05/13/24 History tablet (Januvia) folic acid 1 mg tablet 1 mg PO QDAY 05/13/24 05/13/24 History Allergies Allergy/AdvReac Type Severity Reaction Status Date / Time No Known Allergies Allergy Verified 11/19/23 18:02 Virtual exam Vital Signs Temp Pulse Resp BP Pulse Ox O2 Del Method O2 Flow Rate 97.3 F 114 H 14 99/70 96 Nasal Cannula 1 05/14/24 20:00 05/14/24 20:00 05/14/24 20:00 05/14/24 20:00 05/14/24 20:00 05/14/24 20:00 05/14/24 20:00 Results Labs 05/14/24 15:55 05/14/24 07:13 Labs: Short CBC 05/13/24 05/14/24 05/14/24 Range/Units 21:10 07:13 15:55 WBC 14.9 H D (3.6-11.0) Thou/mm3 Hgb 6.4 L* 7.3 L 8.2 L (12.0-16.0) g/dL Hct 20.7 L* 22.7 L 25.4 L (36.0-46.0) % Plt Count 217 D (140-440) Thou/mm3 BMP 05/14/24 07:13 Sodium 146 H Potassium 3.3 L D Chloride 115 H Carbon Dioxide 21.4 BUN 43 H Creatinine 0.8 D Glucose 173 H D Calcium 8.2 L Cardiac Enzymes 05/13/24 05/14/24 Range/Units 21:10 03:00 Troponin I 0.239 H* 0.186 H* (0.0-0.045) ng/mL Liver Function 05/14/24 Range/Units 07:13 Total Bilirubin 0.3 (0.3-1.2) mg/dL AST 10 (0-34) U/L ALT 12 (10-49) U/L Alkaline Phosphatase 51 D (46-116) U/L Albumin 2.8 L (3.4-4.8) gm/dL ABG Interpretation ABG results: 05/13/24 08:29 ABG pH 7.39 ABG pCO2 31 L ABG pO2 78 L ABG HCO3 19 L ABG O2 Saturation 96 ABG Base Excess -5 L
[2024-05-15] VITALS (72 sets, daily range): BP systolic 63–124; BP diastolic 35–85; PULSE 90–125; RESP 13–31; TEMP 35.7–36.8; O2SAT 89–100; BMI 37.8
--- NOTE | 2024-05-15 00:23 | PC.NURSE ---
Called [facility] regarding patient's bp 85/63, HR 112, ordered 500mls NS bolus, rechecked bp after bolus and continue to be low, MD ordered a second 500mls NS bolus, at 0122 rechecked bp 73/58, HR 119, MD ordered stat h/h and 1 unit PRBC.
[2024-05-15] MEDS: SODIUM CHLORIDE 0.9% 500 ML 500 ML 999 ML IV ×3 (00:33→07:43)
[2024-05-15 02:24] LABS: Hematocrit 23.6 % (36.0-46.0)
[2024-05-15 02:26] LABS: Hemoglobin 7.5 g/dL (12.0-16.0)
--- NOTE | 2024-05-15 04:53 | PC.NURSE ---
MANAGER NEWS called patient was receiving 1unit prbc, started at 0435, 15mins in and patient started c/o chest pain, abdominal pain, diaphoretic, and more shortness of breath. Stopped the blood transfusion and doctored stat labs, ekg, CTA abdomen chest.
--- NOTE | 2024-05-15 04:55 | XR_ITS ---
Examination: AP chest single view Technique one AP portable semiupright chest single view Exam date and time: May 15, 2024 0503 hrs. Comparison May 13, 2024 Indications: Chest pain shortness of breath today. Findings: Early heart failure Mild to moderate enlargement cardiac contour Prominent vascular congestion with early perihilar edema Prominent thoracic dextroscoliosis Impression: Early heart failure
--- NOTE | 2024-05-15 04:58 | EKG_ITS ---
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
[2024-05-15] MEDS: HYDROmorphone INJ 2 MG/ML VIAL 0.5 MG IVP (05:10)
--- NOTE | 2024-05-15 05:20 | XR_ITS ---
Examination: CTA chest, with intravenous contrast. CTA abdomen, with intravenous contrast. CTA pelvis, with intravenous contrast. 2-D sagittal and coronal reconstructions. 3-D reconstructions. Date and time of exam: May 15, 2024 at 0623 hrs. Indications: Chest pain abdominal pain sepsis today, clinical diagnosis pulmonary embolus mesenteric ischemia CTDI vol (mgy) 40.44 DLP (MGycm) 1295 Technique: Multiple CTA images, 2.0 mm slice thickness, obtained chest, abdomen, pelvis, with the high-resolution 64 slice scanner. 100 cc are 670 is administered intravenously. Sagittal and coronal 2-D reconstructions are obtained. 3-D reconstructions, angiographic images are obtained. 3-D postprocessing, including vascular maximum intensity projections. Low dose protocols were performed. One or more of the following dose reduction techniques were used; automated exposure control, adjustment of the mA and/or KV according to patient size, use of iterative reconstruction technique. Findings: AP dimension ascending thoracic aorta 4 cm No thoracic or dissection No pulmonary artery emboli Mild to moderate enlargement cardiac contour with prominent vascular congestion and early septal edema in the lung art with small bilateral pleural effusions Cirrhosis, liver irregular in contour with mild ascites Pneumoperitoneum, with air droplets adjacent to the wall of the stomach and duodenum Spleen is not enlarged Hyperdense gallbladder No pancreatic or adrenal mass No hydronephrosis Lower pole 5.5 cm left renal cyst Colonic diverticulosis Urinary bladder contracted around a Guajardo catheter Atrophic anteverted uterus Advanced degenerative disc disease L3-L4 with prominent osteopenia Impression: Negative for pulmonary artery emboli Mild heart failure Cirrhosis Mild ascites Pneumoperitoneum, multiple air droplets adjacent to and within the wall of the stomach, favor gastric perforation,. Recommend surgical consultation
[2024-05-15 05:42] LABS: Basophils # (Auto) 0.1 Thou/mm3 (0.0-0.2); Basophils % (Auto) 0 % (0-2.5); Eosinophils % (Auto) 0 % (0-10); Hematocrit 26.2 % (36.0-46.0); Immature Granulocytes % (Auto) 1 % (0-0); Immature Granulocytes Auto 0.33 Thou/mm3 (0.00-0.00); Lymphocytes # (Auto) 1.9 Thou/mm3 (1.0-4.8); Lymphocytes % (Auto) 6 % (10-50); Mean Corpuscular HGB Conc 31.3 g/dl (31.0-37.0); Mean Corpuscular Hemoglobin 27.4 pg (25.0-35.0); Mean Corpuscular Volume 88 fL (80-100); Monocytes # (Auto) 0.7 Thou/mm3 (0.0-0.8); Monocytes % (Auto) 2 % (0-12); Neutrophils # (Auto) 28.5 Thou/mm3 (1.8-7.7); Neutrophils % (Auto) 90 % (37-80); Nucleated Red Blood Cell # 0.26 Thou/mm3 (0.00-0.00); Nucleated Red Blood Cell % 1 /100 WBC (0); Platelet Count 245 Thou/mm3 (140-440); RDW Standard Deviation 49.2 fL (36.4-46.3); Red Blood Count 2.99 Miln/mm3 (4.00-5.20); White Blood Count 31.5 Thou/mm3 (3.6-11.0)
[2024-05-15] MEDS: PANTOPRAZOLE/NS 80MG IV PREMIX 80 MG/100 ML BAG 10 MG IV ×2 (05:42→20:22)
[2024-05-15 05:43] LABS: Hemoglobin 8.2 g/dL (12.0-16.0)
[2024-05-15] MEDS: hydrOXYzine HCL 25 MG TABLET PO (06:01)
[2024-05-15 06:06] LABS: Alanine Aminotransferase 11 U/L (10-49); Albumin, Serum 2.9 gm/dL (3.4-4.8); Albumin/Globulin Ratio 1.3 (1.2-2.2); Alkaline Phosphatase 49 U/L (46-116); Anion Gap 11 (7-16); Aspartate Amino Transferase 17 U/L (0-34); BUN/Creatinine Ratio 20 Ratio (12-20); Bilirubin,Total 0.8 mg/dL (0.3-1.2); Blood Urea Nitrogen 49 mg/dL (9-23); Calcium 8.6 mg/dL (8.3-10.6); Calcium (Corrected) 9.5 mg/dL (8.5-10.1); Carbon Dioxide 16.3 mMol/L (20.0-31.0); Chloride 116 mMol/L (98-107); Creatinine (Component) 2.4 mg/dL (0.6-1.3); Estimated Creatinine Clearance 20.3 mL/min (>60); Globulin 2.2 gm/dL (2.3-3.5); Glucose 176 mg/dL (74-106); Magnesium 1.7 mg/dL (1.6-2.6); Osmolality,Calculated 301 (275-295); Phosphorous 4.6 mg/dL (2.4-5.1); Potassium 4.9 mMol/L (3.4-5.1); Sodium 143 mMol/L (136-145); Total Protein 5.1 gm/dL (5.7-8.2); eGFR 21 See Note
[2024-05-15 06:11] LABS: Troponin I 0.402 ng/mL (0.0-0.045)
--- NOTE | 2024-05-15 06:13 | PD.RESEVENT ---
Documentation for date of: 05/15/24 Event Note Event Note: Around 5 AM on 05/15 rapid response called for patient in 359 for acute and worsening chest pain. Patient's vitals were trended throughout the rapid and fluctuated; blood pressure readings on arms showed MAPs consistently within the 70s and MAPs of right leg in the 80s, heart rate was elevated at around 110s, respiratory rate was in the high 20s and SpO2 ranged in the mid 90s on 1 L nasal cannula. Patient's airway, breathing, circulation were assessed and the patient was able to protect her airway and respond to questions. On palpation, patient's epigastric and right upper quadrant were extremely tender but the abdomen was not tense. Patient was in severe pain and had diaphoresis secondary to the pain. Stat labs including troponin, BNP, EKG and chest x-ray were ordered. Patient did appear volume overloaded with +1 pitting edema bilateral lower extremities and chest x-ray showing some vascular congestion. This is likely secondary to x2 500 cc bolus along with transfusion which were completed throughout the night due to patient having soft blood pressure and suspicion for ongoing GI bleed. Troponin is slightly elevated at 0.4 and we will continue to trend. There is suspicion for possible perforated peptic ulcer vs. mesenteric ischemia secondary to GI bleed. Decision was made to acquire a CT angiogram of chest/abdomen and pelvis. Miguel Ángel Coker, PGY-1
--- NOTE | 2024-05-15 06:15 | PC.NURSE ---
Transferred patient to CT, arrived back to floor at 0630.
[2024-05-15] MEDS: PIPER/TAZO 3.375 GM 50 ML IV ×3 (06:49→21:33)
[2024-05-15] MEDS: ALBUMIN HUMAN 25% IVPB 25 GM/100 ML BTL IV (07:27)
--- NOTE | 2024-05-15 07:30 | ESCONSULT_ITS ---
HPI Consult details History of present illness: 69F with HTN, CKDIII, pre DM and known gastric ulcers who was admitted 05/13 after being found down at home. Pt was admitted for encephalopathy and pneumonia, developed anemia for which EGD was planned today however this am had an ACCESS CONTROL OFFICER for tachycardia, hypotension and acute pain; she underwent CT AP showing pneumoperitoneum with air droplets adjacent to the stomach PMH: HTN, CKDIII, preDM, known gastric ulcers on EGD 10/2023 PSHx: None Meds: No antiplt or anticoagulation Allergies: NKDA Review of Systems Review of Systems ROS Unobtainable: unobtainable due to mental status Meds Home Medications and Allergies Home Medications ?Medication ?Instructions ?Recorded ?Confirmed ?Type amlodipine 10 mg tablet 10 mg PO QDAY 11/16/23 05/13/24 History atorvastatin 80 mg tablet 80 mg PO QPM 11/16/23 05/13/24 History ergocalciferol (vitamin D2) 1,250 1,250 mcg PO QWEEK 11/16/23 05/13/24 History mcg (50,000 unit) capsule (Vitamin D2) glipizide 2.5 mg tablet 2.5 mg PO QDAY 11/16/23 05/13/24 History sitagliptin phosphate 100 mg 100 mg PO QDAY 11/16/23 05/13/24 History tablet (Januvia) folic acid 1 mg tablet 1 mg PO QDAY 05/13/24 05/13/24 History Allergies Allergy/AdvReac Type Severity Reaction Status Date / Time No Known Allergies Allergy Verified 11/19/23 18:02 Exam Vital Signs Temp Pulse Resp BP Pulse Ox O2 Del Method O2 Flow Rate 98 F 105 H 20 98/66 98 Nasal Cannula 1 05/15/24 04:50 05/15/24 04:50 05/15/24 04:50 05/15/24 04:50 05/15/24 04:50 05/15/24 04:00 05/15/24 04:50 Constitutional Constitutional: mild distress Routine Respiratory Exam Respiratory: Present no resp distress Routine Abdominal Exam Abdominal: Present tenderness, distended and firm Results Results: Laboratory Laboratory results: results reviewed Results: Imaging Chest x-ray: image reviewed CT scan - abdomen: report reviewed and image reviewed Assessment & Plan Plan 69F with HTN, CKDIII, pre DM and known gastric ulcers who was admitted 05/13 after being found down at home, who developed pneumoperitoneum this am concerning for gastric perforation. I attempted to speak to pt using a [employer] director of online merchandising but due to her condition she is not fully oriented; I spoke to her three children, one in person and two on the phone and explained risks/benefits of laparotomy and gastric repair. Using ACS NSQIP risk calculator I informed that pt has a 44% risk of serious complication, 54% risk of any complication and approximately 25% risk of . I also explained that she will likely need to remain intubated after surgery and will require intensive care. All questions were answered and family provided consent to proceed OR emergently for laparotomy, repair of gastric perforation
[2024-05-15 08:04] LABS: B-Type Natriuretic Peptide 1110 pg/mL (0-100)
--- NOTE | 2024-05-15 09:22 | PC.NURSE ---
RN gave report to SUPERVISOR SHOP @ 9:22 am 05/15/24
--- NOTE | 2024-05-15 09:52 | ESOP_ITS ---
Date of Procedure 05/15/24 Pre Op Diagnosis Perforated gastric ulcer Post Op Diagnosis Same Procedure Exploratory laparotomy, repair of perforated gastric ulcer Findings 5 x 5 mm perforation at the anterior distal body of the stomach, with clean edges, no palpable mass Procedure Description After discussion of risks and benefits with patient's family, patient was brought to the operating room emergently, SCDs were placed and general anesthesia was induced. She was prepped and draped in usual sterile fashion. After timeout an upper midline incision was made with a #10 blade and the tissues were dissected with electrocautery. When the peritoneum was reached it was elevated with tonsil clamps and incised with Metzenbaum scissors. Upon entering the abdomen there was thick seropurulent fluid which was irrigated. Exposure was obtained with a Mercer retractor and an NG was placed by anesthesia which was palpated in the body of the stomach. Inspection of the stomach revealed a 5 x 5 mm perforation at the anterior distal body, which had clean edges. The perforation was first closed primarily, with interrupted 3-0 silk sutures. At this point I asked the anesthesiologist to instill methylene blue via the NG to assess for any other sites of perforation and to assess this repair. He instilled 40 cc of methylene blue followed by saline and the abdomen was thoroughly inspected. There were no signs of extravasation of methylene blue in any quadrant. I then performed an omental patch of the repair using a tongue of omentum that has been with an Enseal device. The omental patch was sutured over the perforation using interrupted 3-0 silk sutures. Again the abdomen was irrigated and there were no signs of bleeding and no methylene blue identified. A 15 Serbian BALAJI was placed adjacent to the stomach exiting the abdomen at the left periumbilical region. It was sutured using a 2- 0 nylon. Midline incision was closed with 0 PDS and the wound was irrigated. The skin was closed with aixa and covered with Telfa, gauze and Tegaderm. Given patient's overall critical illness she will be brought to ICU remaining intubated Pathology / specimen None Estimated Blood Loss 25 Surgeon Emily Santana MD Surgical Staff Operation Date: 05/15/24 15:15 Case Staff HAT BLOCK BENCH HAND: Lonnie Rodrigues RNsales representative girls' apparel: Corinne Costa
[2024-05-15] MEDS: RINGERS LACTATED 1000 ML 1,000 ML 999 ML IV (10:33)
[2024-05-15] MEDS: Norepinephrine/NS 16mg/250ml 16 MG/250 ML BAG 3.853 MG IV (11:09)
--- NOTE | 2024-05-15 11:13 | ESPR_ITS ---
Documentation for date of: 05/15/24 Subjective Subjective Interval history: Patient seen in the ICU this morning. Overnight patient had a rapid response called due to chest pain and troponins were ordered which showed increased to 0.494 at this time a chest/abdomen/pelvis CT a was also ordered which showed pneumoperitoneum and general surgery was consulted. General surgery did an ex lap and patient was found to have a perforated gastric ulcer. Patient remained intubated postop in the ICU postsurgery. Anemia mostly secondary to the gastric ulcer bleeding and perforation which he did with acute kidney injury Patient's BNP today was also 1110 compared to 304 from admission. Will need some diuresis when blood pressure stable Recommend no further troponins as elevated troponins most likely secondary to sepsis from type II NSTEMI. Exam Vital Signs Temp Pulse Resp BP Pulse Ox O2 Del Method O2 Flow Rate 98.0 F 112 H 17 91/49 L 96 Nasal Cannula 1 05/15/24 08:00 05/15/24 11:09 05/15/24 08:00 05/15/24 11:09 05/15/24 10:31 05/15/24 08:00 05/15/24 08:00 FiO2 70 05/15/24 10:31 Narrative Exam General: Sedated and intubated Eyes: Pupils reactive to light Ears: No visible ear discharge Nose: No visible nasal discharge Mouth/Throat: Dry mucous membranes, no redness, no lesions. Neck: Short neck , non-tender, no cervical lymphadenopathy. Lungs: Mechanically ventilated, bronchial breath sounds Cardio: Normal S1/S2, regular rhythm, systolic murmurs, no JVD Abdomen: Soft, non-tender, no palpable masses, peristalsis present, no guarding or rebound. Surgical scar covered with clean dressing. Extremities: Symmetrical, no significant deformities, trace peripheral edema , non-tender, peripheral pulses presents. Skin: No rashes, no lesions, warm to touch. Neuro: Patient is currently sedated Objective Labs 05/16/24 00:40 05/15/24 05:27 Labs: Laboratory Results - last 24 hr 05/13/24 05/14/24 05/15/24 05:15 15:55 02:01 WBC RBC Hgb 8.2 L 7.5 L Hct 25.4 L 23.6 L MCV MCH MCHC RDW Std Deviation Plt Count Neut % (Auto) Lymph % (Auto) Swisher % (Auto) Eos % (Auto) Baso % (Auto) Neut # (Auto) Lymph # (Auto) Swisher # (Auto) Eos # (Auto) Baso # (Auto) Immature Gran # (Auto) Absolute Nucleated RBC Immature Gran % Nucleated RBC % Sodium Potassium Chloride Carbon Dioxide Anion Gap BUN Creatinine Estim Creat Clear Calc eGFR BUN/Creatinine Ratio Glucose Calculated Osmolality Calcium Corrected Calcium Phosphorus Magnesium Total Bilirubin AST ALT Alkaline Phosphatase Troponin I B-Natriuretic Peptide Total Protein Albumin Globulin Albumin/Globulin Ratio Blood Type O Positive Antibody Screen NEGATIVE Crossmatch See Detail Blood Bank Wristband ID Yes 05/15/24 05:27 WBC 31.5 H D RBC 2.99 L Hgb 8.2 L Hct 26.2 L MCV 88 MCH 27.4 MCHC 31.3 RDW Std Deviation 49.2 H Plt Count 245 Neut % (Auto) 90 H Lymph % (Auto) 6 L Swisher % (Auto) 2 Eos % (Auto) 0 Baso % (Auto) 0 Neut # (Auto) 28.5 H Lymph # (Auto) 1.9 Swisher # (Auto) 0.7 Eos # (Auto) 0.0 Baso # (Auto) 0.1 Immature Gran # (Auto) 0.33 H Absolute Nucleated RBC 0.26 H Immature Gran % 1 H Nucleated RBC % 1 H Sodium 143 Potassium 4.9 D Chloride 116 H Carbon Dioxide 16.3 L Anion Gap 11 BUN 49 H Creatinine 2.4 H D Estim Creat Clear Calc 20.3 L eGFR 21 L BUN/Creatinine Ratio 20 Glucose 176 H Calculated Osmolality 301 H Calcium 8.6 Corrected Calcium 9.5 Phosphorus 4.6 Magnesium 1.7 Total Bilirubin 0.8 D AST 17 ALT 11 Alkaline Phosphatase 49 Troponin I 0.402 H* D B-Natriuretic Peptide 1110 H* Total Protein 5.1 L Albumin 2.9 L Globulin 2.2 L Albumin/Globulin Ratio 1.3 Blood Type Antibody Screen Crossmatch Blood Bank Wristband ID ABG Interpretation ABG results: 05/13/24 08:29 ABG pH 7.39 ABG pCO2 31 L ABG pO2 78 L ABG HCO3 19 L ABG O2 Saturation 96 ABG Base Excess -5 L Quality Measures Quality Measures VTE prophylaxis Advance care planning discussed with:: patient Assessment & Plan Assessment Current Active Medications: Generic Name Dose Route Start Last Admin Trade Name Freq PRN Reason Stop Dose Admin Hydromorphone HCl 0.5 mg 12/15/24 15:35 05/15/24 05:10 Hydromorphone Inj 2 Mg/Ml Vial IVP 05/19/24 15:34 0.5 mg Q6HR PRN Administration PAIN SCALE 7-10 (Severe Azithromycin 500 mg/ Sodium 250 mls @ 250 mls/hr 05/14/24 09:00 05/14/24 10:04 Chloride IV 05/21/24 08:59 250 mls/hr QDAY ANGELICA Administration Protocol Pantoprazole Sodium 80 mg in 100 mls @ 10 mls/hr 05/14/24 08:04 05/15/24 05:42 Protonix/Ns 80mg Iv Premix IV 05/17/24 06:03 10 mls/hr Q10H ANGELICA Administration Piperacillin/Tazobactam/Dextrose 50 mls @ 12.5 mls/hr 05/15/24 06:00 05/15/24 06:49 Zosyn IV 05/22/24 05:59 12.5 mls/hr Q8HR ANGELICA Administration Protocol Lactated Ringer's 1,000 mls @ 999 mls/hr 05/15/24 10:22 05/15/24 10:33 Lactated Ringers IV 05/15/24 11:22 999 mls/hr .Q1H1M ONE Administration Propofol 1,000 mg in 100 mls @ 2.466 mls/hr 05/15/24 10:28 Diprivan Ivpb IV 06/14/24 10:27 .Q24H PRN PER PROTOCOL Protocol 5 MCG/KG/MIN Fentanyl Citrate 2,500 mcg in 250 mls @ 2.5 mls/hr 05/15/24 10:28 Sublimaze Inj 2,500 Mcg/250 Ml Bag IV 05/20/24 10:27 .Q24H PRN PER PROTOCOL Protocol 25 MCG/HR Norepinephrine Bitartrate 16 mg in 250 mls @ 3.853 mls/hr 05/15/24 10:29 05/15/24 11:09 Levophed In Ns 16mg/250ml IV 06/14/24 10:28 0.05 mcg/kg/min .Q24H PRN 3.853 mls/hr PER protocol Administration Protocol 0.05 MCG/KG/MIN Ondansetron HCl 4 mg 05/13/24 11:58 05/14/24 12:31 Ondansetron Inj 2 Mg/Ml Inj 2 Ml IV 06/12/24 11:57 4 mg Q6H PRN Administration NAUSEA OR VOMITING Protocol Sucralfate 1 gm 05/13/24 17:00 05/15/24 06:49 Sucralfate Susp 1 Gm/10 Ml Udc PO 06/12/24 16:59 Not Given QID ANGELICA Plan 69 y/o female with PMH of essential hypertension, gastric ulcers, hyperlipidemia, and DM2 was admitted to the hospital on 05/13/2024 due to acute encephalopathy likely secondary to sepsis secondary to CAP. 1. NSTEMI Type II -Patient has had elevated troponins from previous admissions with most recent on 11/17/2023 of 0.097 and prior to this on 12/28/2021 was 0.065 -On this admission intial troponins 0.09, uptrended to 0.239 and downtrended. -NSTEMI type II most likley in the setting of sepsis as patient has no chest pain. -EKG on this admission showed LVH with strain pattern and sinus tachycardia which is similiar to prior EKG on 11/22/2023 -CLARY ACS score of 115 points, 7% probability of Plan: -No heparin drip at this time given the severe anemia and perforated gastric ulcer -No need for further troponins -Recommend to place patient on high intensity statin and aspirin if GI and general surgery are okay with starting aspirin and there are no other contraindications Overnight patient had a rapid response called due to chest pain and troponins were ordered which showed increased to 0.494 at this time a chest/abdomen/pelvis CT a was also ordered which showed pneumoperitoneum and general surgery was consulted. General surgery did an ex lap and patient was found to have a perforated gastric ulcer. Patient remained intubated postop in the ICU postsurgery. Anemia mostly secondary to the gastric ulcer bleeding and perforation which he did with acute kidney injury Patient's BNP today was also 1110 compared to 304 from admission. Will need some diuresis when blood pressure stable Recommend no further troponins as elevated troponins most likely secondary to sepsis from type II NSTEMI. 2. Acute decompensated heart failure (EF 60-65%) 3.Essential Hypertension -Patient has some SOB, trace edema and initial BNP was 309 -CXR did show some vascular congestion -Echo from 04/26/2024 had the following findings: Normal LV size and function. Mild LVH. Estimated EF 60-65% Normal RV size and function. Mild to moderate mitral valve stenosis, mean gradient 8mmHg. Moderate MAC. Mild AI, MR, TR. Mild AV sclerosis without stenosis Plan: -No need for new echo as patient does not appear volume overloaded -Hold diuresis in the setting of sepsis and soft BP -Strict CACHORRO's -Fluid restrictions -Low sodium diet -Daily weights -Recommend to potassium and magnessium above 4 and 2 respectively to avoid any arrhythmias. 4. Sepsis 2/2 perforated gastric ulcer 5. Community acquired pneumonia 6.Acute Encephalopathy 7. perforated gastric ulcer 8. Acute blood loss anemia 9. GI bleed -Continue current management as per primary care team 10.DM2 11. Hyperlipidemia -Continue current management as per primary care team Continue rest of management as per primary team. We are grateful to be able to participate in Mrs. Castellanos's care. Thank you for the consult Plan of care discussed with attending Engineer Technical Staff, Dr. Susan Spears MD PGY-1 There is a high probability of sudden, clinically significant or life threatening deterioration in the patient condition which required the highest level of physician preparedness to intervene urgently. I have personally spent 35 minutes of critical care time, exclusive of time spent on any procedures, in evaluation and management of this critically ill patient. Attending Provider Attestation/Addendum I have personally seen and examined the patient separately on the above date of service and discussed the plan of care with the resident. I reviewed the resident Dr. Merino consultation progress note and agree with the resident findings and plan in the note above and have also edited the documentation to reflect my findings and plan. Jalen Davis M.D. Interventional Cardiology
[2024-05-15 11:42] LABS: Troponin I 0.494 ng/mL (0.0-0.045)
--- NOTE | 2024-05-15 12:01 | ESPR_ITS ---
Documentation for date of: 05/15/24 Subjective Subjective Interval history: Rapid response called this morningfor acute and worsening chest pain, patient's epigastric and right upper quadrant were tender, CT abdomen showed pnuemoperitoneum likely perforated ulcer, patient went emergently to [facility]. Now intubated and sedated in ICU. Neurology was consulted yesterday due to acute encephalopathy. Exam Vital Signs Temp Pulse Resp BP Pulse Ox O2 Del Method O2 Flow Rate 96.3 F L 112 H 16 92/60 97 Mechanical Ventilation 1 05/15/24 11:15 05/15/24 11:15 05/15/24 11:15 05/15/24 11:15 05/15/24 11:15 05/15/24 11:15 05/15/24 08:00 FiO2 70 05/15/24 11:20 Routine Respiratory Exam Comments: Mechanically ventilated with assist-control Routine Abdominal Exam Comments: No bowel sounds Objective Labs 05/16/24 06:03 05/16/24 12:19 Labs: Laboratory Results - last 24 hr 05/13/24 05/14/24 05/15/24 05:15 15:55 02:01 WBC RBC Hgb 8.2 L 7.5 L Hct 25.4 L 23.6 L MCV MCH MCHC RDW Std Deviation Plt Count Neut % (Auto) Lymph % (Auto) Sierra % (Auto) Eos % (Auto) Baso % (Auto) Neut # (Auto) Lymph # (Auto) [place] # (Auto) Eos # (Auto) Baso # (Auto) Immature Gran # (Auto) Absolute Nucleated RBC Immature Gran % Nucleated RBC % Sodium Potassium Chloride Carbon Dioxide Anion Gap BUN Creatinine Estim Creat Clear Calc eGFR BUN/Creatinine Ratio Glucose Calculated Osmolality Calcium Corrected Calcium Phosphorus Magnesium Total Bilirubin AST ALT Alkaline Phosphatase Troponin I B-Natriuretic Peptide Total Protein Albumin Globulin Albumin/Globulin Ratio Blood Type O Positive Antibody Screen NEGATIVE Crossmatch See Detail Blood Bank Wristband ID Yes 05/15/24 05/15/24 05:27 10:45 WBC 31.5 H D RBC 2.99 L Hgb 8.2 L Hct 26.2 L MCV 88 MCH 27.4 MCHC 31.3 RDW Std Deviation 49.2 H Plt Count 245 Neut % (Auto) 90 H Lymph % (Auto) 6 L Sierra % (Auto) 2 Eos % (Auto) 0 Baso % (Auto) 0 Neut # (Auto) 28.5 H Lymph # (Auto) 1.9 Sierra # (Auto) 0.7 Eos # (Auto) 0.0 Baso # (Auto) 0.1 Immature Gran # (Auto) 0.33 H Absolute Nucleated RBC 0.26 H Immature Gran % 1 H Nucleated RBC % 1 H Sodium 143 Potassium 4.9 D Chloride 116 H Carbon Dioxide 16.3 L Anion Gap 11 BUN 49 H Creatinine 2.4 H D Estim Creat Clear Calc 20.3 L eGFR 21 L BUN/Creatinine Ratio 20 Glucose 176 H Calculated Osmolality 301 H Calcium 8.6 Corrected Calcium 9.5 Phosphorus 4.6 Magnesium 1.7 Total Bilirubin 0.8 D AST 17 ALT 11 Alkaline Phosphatase 49 Troponin I 0.402 H* D 0.494 H* B-Natriuretic Peptide 1110 H* Total Protein 5.1 L Albumin 2.9 L Globulin 2.2 L Albumin/Globulin Ratio 1.3 Blood Type Antibody Screen Crossmatch Blood Bank Wristband ID ABG Interpretation ABG results: 05/13/24 08:29 ABG pH 7.39 ABG pCO2 31 L ABG pO2 78 L ABG HCO3 19 L ABG O2 Saturation 96 ABG Base Excess -5 L Quality Measures Quality Measures VTE prophylaxis Advance care planning discussed with:: patient Assessment & Plan Assessment Current Active Medications: Generic Name Dose Route Start Last Admin Trade Name Freq PRN Reason Stop Dose Admin Hydromorphone HCl 0.5 mg 05/14/24 15:35 05/15/24 05:10 Hydromorphone Inj 2 Mg/Ml Vial IVP 05/19/24 15:34 0.5 mg Q6HR PRN Administration PAIN SCALE 7-10 (Severe Azithromycin 500 mg/ Sodium 250 mls @ 250 mls/hr 05/14/24 09:00 05/14/24 10:04 Chloride IV 05/21/24 08:59 250 mls/hr QDAY ANGELICA Administration Protocol Pantoprazole Sodium 80 mg in 100 mls @ 10 mls/hr 05/14/24 08:04 05/15/24 05:42 Protonix/Ns 80mg Iv Premix IV 05/17/24 06:03 10 mls/hr Q10H ANGELICA Administration Piperacillin/Tazobactam/Dextrose 50 mls @ 12.5 mls/hr 05/15/24 06:00 05/15/24 06:49 Zosyn IV 05/22/24 05:59 12.5 mls/hr Q8HR ANGELICA Administration Protocol Propofol 1,000 mg in 100 mls @ 2.466 mls/hr 05/15/24 10:28 Diprivan Ivpb IV 06/14/24 10:27 .Q24H PRN PER PROTOCOL Protocol 5 MCG/KG/MIN Fentanyl Citrate 2,500 mcg in 250 mls @ 2.5 mls/hr 05/15/24 10:28 Sublimaze Inj 2,500 Mcg/250 Ml Bag IV 05/20/24 10:27 .Q24H PRN PER PROTOCOL Protocol 25 MCG/HR Norepinephrine Bitartrate 16 mg in 250 mls @ 3.853 mls/hr 05/15/24 10:29 05/15/24 11:32 Levophed In Ns 16mg/250ml IV 06/14/24 10:28 0.07 mcg/kg/min .Q24H PRN 5.394 mls/hr PER protocol Titration Protocol 0.05 MCG/KG/MIN Ondansetron HCl 4 mg 05/13/24 11:58 05/14/24 12:31 Ondansetron Inj 2 Mg/Ml Inj 2 Ml IV 06/12/24 11:57 4 mg Q6H PRN Administration NAUSEA OR VOMITING Protocol Sucralfate 1 gm 05/13/24 17:00 05/15/24 06:49 Sucralfate Susp 1 Gm/10 Ml Udc PO 06/12/24 16:59 Not Given QID ANGELICA Plan 69-year-old female with past medical history of CKD stage III, prediabetes, hypertension who was found unconscious in her room. As well as diarrhea and shortness of breath. Admitted for sepsis secondary to pneumonia and acute metabolic encephalopathy #Acute metabolic encephalopathy #Generalized weakness -Patient was found to be nonresponsive at home -Intitial Head CT was negative -Patient failed bedside swallow eval -Brain MRI with MRA shows significant stenoses in posterior cerebral artery -Encephalopathy most likely related to acute critical illness, we will re- evaluate once off sedation Patient's care discussed with attending physician, Dr Talisha Sidhu MD PGY3 Attending Provider Attestation/Addendum I personally have seen and examined the patient at the bedside and I agree with resident's findings, assessment and plan of care. Continue with the current management, if encephalopathy does not improve, will order EEG for prognosis
--- NOTE | 2024-05-15 12:04 | ESPR_ITS ---
<Statement entered by Michel See MD - 05/30/24 14:21> I reviewed above note and agree with findings and plans. I have also personally examined the patient with medicine team and went over assessment and plan with medical team including internet sales representative and resident physician. Documentation for date of: 05/15/24 Subjective Subjective Interval history: Senior resident attestation: Patient evaluated and examined at the bedside, plan of care discussed with rest of the team including my attending physician, except as noted. Patient had rapid responses overnight due to epigastric pain, chest x-ray and CTA was ordered. On evaluation this a.m., patient was found to be drowsy, as well as tense tender abdomen, rigidity in the epigastrium, chest x-ray showed elevation of hemidiaphragm, CT abdomen showed pneumoperitoneum, concern for perforated viscus, general surgeon Dr. Silva was consulted for emergency laparotomy and possible repair of perforated gastric ulcer. Patient was given IV fluid boluses, IV albumin 1 PRBC was ordered, ICU team was consulted, patient was taken to the OR emergently, and then transferred to ICU for postop care. Patient was pending an EGD this a.m. and was on Protonix drip for peptic ulcer and possible GI bleed, Dr. Christianson was updated of the new events, agreed with the plan. Quresh pgy 2 Exam Vital Signs Temp Pulse Resp BP Pulse Ox O2 Del Method O2 Flow Rate 96.3 F L 112 H 16 92/60 97 Mechanical Ventilation 1 05/15/24 11:15 05/15/24 11:15 05/15/24 11:15 05/15/24 11:15 05/15/24 11:15 05/15/24 11:15 05/15/24 08:00 FiO2 70 05/15/24 11:20 Narrative Exam General: Patient is found to be somnolent, arousable on verbal stimuli, in moderate distress HEENT: Dry mucous membranes, pale conjunctiva, EOMI, PERRLA, Cardiovascular: S1, S2, systolic murmur appreciated, radial pulses +2 bilat, RRR Pulmonary: CTAB bilat no cough, no wheezing GI: Noted tense and tender abdomen more in the epigastrium. Bowel sounds not audible. Rebound tenderness positive. Extremities: No presence of trace or pitting edema in lower extremities bilaterally, dorsalis pedis pulses +2 bilaterally Back: Paraspinal tenderness bilat in mid thoracic spine Neuro: Unable to completely assess and patient is not cooperative and acute distress due to pain Psych: Cooperative. Objective Labs 05/15/24 12:26 05/15/24 05:27 Labs: Laboratory Results - last 24 hr 05/13/24 05/14/24 05/15/24 05:15 15:55 02:01 WBC RBC Hgb 8.2 L 7.5 L Hct 25.4 L 23.6 L MCV MCH MCHC RDW Std Deviation Plt Count Neut % (Auto) Lymph % (Auto) [place] % (Auto) Eos % (Auto) Baso % (Auto) Neut # (Auto) Lymph # (Auto) [place] # (Auto) Eos # (Auto) Baso # (Auto) Immature Gran # (Auto) Absolute Nucleated RBC Immature Gran % Nucleated RBC % Sodium Potassium Chloride Carbon Dioxide Anion Gap BUN Creatinine Estim Creat Clear Calc eGFR BUN/Creatinine Ratio Glucose Calculated Osmolality Calcium Corrected Calcium Phosphorus Magnesium Total Bilirubin AST ALT Alkaline Phosphatase Troponin I B-Natriuretic Peptide Total Protein Albumin Globulin Albumin/Globulin Ratio Blood Type O Positive Antibody Screen NEGATIVE Crossmatch See Detail Blood Bank Wristband ID Yes 05/15/24 05/15/24 05:27 10:45 WBC 31.5 H D RBC 2.99 L Hgb 8.2 L Hct 26.2 L MCV 88 MCH 27.4 MCHC 31.3 RDW Std Deviation 49.2 H Plt Count 245 Neut % (Auto) 90 H Lymph % (Auto) 6 L [place] % (Auto) 2 Eos % (Auto) 0 Baso % (Auto) 0 Neut # (Auto) 28.5 H Lymph # (Auto) 1.9 [place] # (Auto) 0.7 Eos # (Auto) 0.0 Baso # (Auto) 0.1 Immature Gran # (Auto) 0.33 H Absolute Nucleated RBC 0.26 H Immature Gran % 1 H Nucleated RBC % 1 H Sodium 143 Potassium 4.9 D Chloride 116 H Carbon Dioxide 16.3 L Anion Gap 11 BUN 49 H Creatinine 2.4 H D Estim Creat Clear Calc 20.3 L eGFR 21 L BUN/Creatinine Ratio 20 Glucose 176 H Calculated Osmolality 301 H Calcium 8.6 Corrected Calcium 9.5 Phosphorus 4.6 Magnesium 1.7 Total Bilirubin 0.8 D AST 17 ALT 11 Alkaline Phosphatase 49 Troponin I 0.402 H* D 0.494 H* B-Natriuretic Peptide 1110 H* Total Protein 5.1 L Albumin 2.9 L Globulin 2.2 L Albumin/Globulin Ratio 1.3 Blood Type Antibody Screen Crossmatch Blood Bank Wristband ID ABG Interpretation ABG results: 05/13/24 08:29 ABG pH 7.39 ABG pCO2 31 L ABG pO2 78 L ABG HCO3 19 L ABG O2 Saturation 96 ABG Base Excess -5 L Quality Measures Quality Measures VTE prophylaxis Advance care planning discussed with:: patient Assessment & Plan Assessment Current Active Medications: Generic Name Dose Route Start Last Admin Trade Name Freq PRN Reason Stop Dose Admin Hydromorphone HCl 0.5 mg 05/14/24 15:35 05/15/24 05:10 Hydromorphone Inj 2 Mg/Ml Vial IVP 05/19/24 15:34 0.5 mg Q6HR PRN Administration PAIN SCALE 7-10 (Severe Azithromycin 500 mg/ Sodium 250 mls @ 250 mls/hr 05/14/24 09:00 05/14/24 10:04 Chloride IV 05/21/24 08:59 250 mls/hr QDAY ANGELICA Administration Protocol Pantoprazole Sodium 80 mg in 100 mls @ 10 mls/hr 05/14/24 08:04 05/15/24 05:42 Protonix/Ns 80mg Iv Premix IV 05/17/24 06:03 10 mls/hr Q10H ANGELICA Administration Piperacillin/Tazobactam/Dextrose 50 mls @ 12.5 mls/hr 05/15/24 06:00 05/15/24 06:49 Zosyn IV 05/22/24 05:59 12.5 mls/hr Q8HR ANGELICA Administration Protocol Propofol 1,000 mg in 100 mls @ 2.466 mls/hr 05/15/24 10:28 Diprivan Ivpb IV 06/14/24 10:27 .Q24H PRN PER PROTOCOL Protocol 5 MCG/KG/MIN Fentanyl Citrate 2,500 mcg in 250 mls @ 2.5 mls/hr 05/15/24 10:28 Sublimaze Inj 2,500 Mcg/250 Ml Bag IV 05/20/24 10:27 .Q24H PRN PER PROTOCOL Protocol 25 MCG/HR Norepinephrine Bitartrate 16 mg in 250 mls @ 3.853 mls/hr 05/15/24 10:29 05/15/24 11:32 Levophed In Ns 16mg/250ml IV 06/14/24 10:28 0.07 mcg/kg/min .Q24H PRN 5.394 mls/hr PER protocol Titration Protocol 0.05 MCG/KG/MIN Ondansetron HCl 4 mg 05/13/24 11:58 05/14/24 12:31 Ondansetron Inj 2 Mg/Ml Inj 2 Ml IV 06/12/24 11:57 4 mg Q6H PRN Administration NAUSEA OR VOMITING Protocol Sucralfate 1 gm 05/13/24 17:00 05/15/24 06:49 Sucralfate Susp 1 Gm/10 Ml Udc PO 06/12/24 16:59 Not Given QID ANGELICA Plan Assessment 69-year-old female past medical history of peptic ulcer disease, prediabetes, CKD and hypertension brought into the ER after he was found unresponsive on the floor, accompanied by her son. At the time of evaluation patient was alert and oriented x 3, but feeling weak, reported generalized weakness, able to move all 4 extremities unable to turn herself in the bed, but overall power is decreased. #Pneumoperitoneum #Peritonitis secondary to perforated gastric ulcer Patient had rapid responses overnight due to epigastric pain, chest x-ray and CTA was ordered. On evaluation this a.m., patient was found to be drowsy, as well as tense tender abdomen, rigidity in the epigastrium, chest x-ray showed elevation of hemidiaphragm, CT abdomen showed pneumoperitoneum, concern for perforated viscus, general surgeon Dr. Silva was consulted for emergency laparotomy and possible repair of perforated gastric ulcer. ?Patient was given IV fluid boluses, IV albumin 1 PRBC was ordered, ICU team was consulted, patient was taken to the OR emergently, and then transferred to ICU for postop care. ?Antibiotic coverage was broadened to Zosyn to cover for anaerobic and enteric pathogens. #Sepsis, secondary to pneumonia: ?Met sepsis criteria, continue IV antibiotics, follow microbiology results #Altered mental status: ?Acute toxic encephalopathy likely secondary to sepsis and pneumonia, altered mental status now resolved. #Stroke rule out: ?CT imaging of the head did not show any acute hemorrhage, MRI brain shows equivocal restricted diffusion brainstem midodrine level recommend neurology consultation, significant stenosis P1 P2 segment of [employer]. Neurology consult ordered. #Acute CHF rule out: ?Noted 2+ pitting edema bilaterally, also complaining of shortness of breath while laying down, was very uncomfortable when patient was laying flat during our evaluation. War better on propping up, patient has a past medical history of CKD also could be a cause of fluid overload, get an echocardiogram to rule out CHF, BNP elevated #CKD stage III: ?Currently stable, continue home #Acute anemia, ?Concern for GI bleed, acute drop in hemoglobin, Hb 6.4, 1 PRBC ordered by night team, repeat Hb 7.1, ?In the setting of gastric perforation, 1 PRBC ordered on 05/15 #Peptic ulcer disease: ?Protonix loading dose 80 mg and followed by Protonix drip for GI bleed, get GI consult placed. On physical exam this a.m., abdomen is tender in the epigastrium, but soft and nondistended. Gastroenterology was consulted, plan for EGD tomorrow morning. Plan of care discussed with my attending, Dr. Esa Quiñonez PGY2
--- NOTE | 2024-05-15 12:34 | PC.SS ---
Follow up note: Pt is on IV antibiotic and IV fluids. Pt will be going to ICU.
[2024-05-15 12:50] LABS: Hematocrit 23.8 % (36.0-46.0)
[2024-05-15] MEDS: AZITHROMYCIN INJ 500 MG in SODIUM CHLORIDE 0.9% 250 ML 250 ML 250 MG IV (13:09)
--- NOTE | 2024-05-15 13:11 | PC.PT ---
Patient will be dc from PT services secondary to patient is transferred to ICU.
[2024-05-15 13:32] LABS: Hemoglobin 7.2 g/dL (12.0-16.0)
[2024-05-15 15:37] LABS: Base Excess -12 (-3-3); HCO3 18 mEq/L (20-26); Inspired Oxygen, FIO2 50 %; PCO2 63 mmHg (32.0-48.0)
[2024-05-15 15:41] LABS: Allen Test Performed/OK; O2 Saturation 59 % (91-98); PO2 38 mmHg (83-108); Puncture Site Right Radial; pH, Arterial 7.05 (7.35-7.45)
[2024-05-15 16:17] LABS: Base Excess -11 (-3-3); HCO3 16 mEq/L (20-26); Inspired Oxygen, FIO2 40 %; O2 Saturation 96 % (91-98); PCO2 45 mmHg (32.0-48.0); PO2 84 mmHg (83-108)
[2024-05-15 16:19] LABS: pH, Arterial 7.17 (7.35-7.45)
[2024-05-15 16:20] LABS: Allen Test Performed/OK; Puncture Site Right Radial
[2024-05-15 16:29] LABS: Lactate (Lactic Acid) 4.2 mMol/L (0.4-2.0)
[2024-05-15] MEDS: PROPOFOL 1,000 MG IVPB 1,000 MG/100 ML VIAL 2.466 MG IV (16:43)
[2024-05-15] MEDS: fentaNYL 2,500 MCG/250 ML BAG 2,500 MCG/250 ML BAG IV (16:43)
--- NOTE | 2024-05-15 17:04 | XR_ITS ---
Examination: AP chest single view Technique one AP portable supine chest single view Exam date and time: May 15, 2024 1724 hrs. Comparison May 15, 2024 0503 hrs. Indications: Hypoxic respiratory failure postintubation post central line placement Findings: [id number] heart failure Mild to moderate enlargement cardiac contour with prominent vascular congestion and perihilar basilar edema Endotracheal tube tip 3.4 cm above celeste Orogastric tube in the stomach, the tip is below the level of the film Right internal jugular central line tip right atrium no pneumothorax Impression: [id number] heart failure
--- NOTE | 2024-05-15 17:40 | PD.IMPROG ---
Documentation for date of: 05/15/24 Subjective Subjective Interval history: Patient status post repair of the gastric perforation with suturing as well as placement of a omental patch It was a clean perforation Patient currently mechanically ventilated acidotic Exam Vital Signs Temp Pulse Resp BP Pulse Ox O2 Del Method O2 Flow Rate 97 F 115 H 16 86/60 L 97 Mechanical Ventilation 1 05/15/24 15:00 05/15/24 15:44 05/15/24 15:00 05/15/24 15:44 05/15/24 15:44 05/15/24 14:50 05/15/24 08:00 FiO2 40 05/15/24 16:22 Routine Respiratory Exam Comments: Mechanically ventilated Routine Abdominal Exam Comments: No bowel sounds Objective Labs 05/15/24 12:26 05/15/24 05:27 Labs: Laboratory Results - last 24 hr 05/13/24 05/15/24 05/15/24 05:15 02:01 05:27 WBC 31.5 H D RBC 2.99 L Hgb 7.5 L 8.2 L Hct 23.6 L 26.2 L MCV 88 MCH 27.4 MCHC 31.3 RDW Std Deviation 49.2 H Plt Count 245 Neut % (Auto) 90 H Lymph % (Auto) 6 L [place] % (Auto) 2 Eos % (Auto) 0 Baso % (Auto) 0 Neut # (Auto) 28.5 H Lymph # (Auto) 1.9 [place] # (Auto) 0.7 Eos # (Auto) 0.0 Baso # (Auto) 0.1 Immature Gran # (Auto) 0.33 H Absolute Nucleated RBC 0.26 H Immature Gran % 1 H Nucleated RBC % 1 H Puncture Site ABG pH ABG pCO2 ABG pO2 ABG HCO3 ABG O2 Saturation ABG Base Excess FiO2 Sodium 143 Potassium 4.9 D Chloride 116 H Carbon Dioxide 16.3 L Anion Gap 11 BUN 49 H Creatinine 2.4 H D Estim Creat Clear Calc 20.3 L eGFR 21 L BUN/Creatinine Ratio 20 Glucose 176 H Calculated Osmolality 301 H Lactic Acid Calcium 8.6 Corrected Calcium 9.5 Phosphorus 4.6 Magnesium 1.7 Total Bilirubin 0.8 D AST 17 ALT 11 Alkaline Phosphatase 49 Troponin I 0.402 H* D B-Natriuretic Peptide 1110 H* Total Protein 5.1 L Albumin 2.9 L Globulin 2.2 L Albumin/Globulin Ratio 1.3 Blood Type O Positive Antibody Screen NEGATIVE Crossmatch See Detail Blood Bank Wristband ID Yes 05/15/24 05/15/24 05/15/24 10:45 12:26 15:28 WBC RBC Hgb 7.2 L Hct 23.8 L MCV MCH MCHC RDW Std Deviation Plt Count Neut % (Auto) Lymph % (Auto) [place] % (Auto) Eos % (Auto) Baso % (Auto) Neut # (Auto) Lymph # (Auto) [place] # (Auto) Eos # (Auto) Baso # (Auto) Immature Gran # (Auto) Absolute Nucleated RBC Immature Gran % Nucleated RBC % Puncture Site Right Radial ABG pH 7.05 L* D ABG pCO2 63 H D ABG pO2 38 L* D ABG HCO3 18 L ABG O2 Saturation 59 L ABG Base Excess -12 L FiO2 50 Sodium Potassium Chloride Carbon Dioxide Anion Gap BUN Creatinine Estim Creat Clear Calc eGFR BUN/Creatinine Ratio Glucose Calculated Osmolality Lactic Acid Calcium Corrected Calcium Phosphorus Magnesium Total Bilirubin AST ALT Alkaline Phosphatase Troponin I 0.494 H* B-Natriuretic Peptide Total Protein Albumin Globulin Albumin/Globulin Ratio Blood Type Antibody Screen Crossmatch Blood Bank Wristband ID 05/15/24 05/15/24 16:03 16:19 WBC RBC Hgb Hct MCV MCH MCHC RDW Std Deviation Plt Count Neut % (Auto) Lymph % (Auto) [place] % (Auto) Eos % (Auto) Baso % (Auto) Neut # (Auto) Lymph # (Auto) [place] # (Auto) Eos # (Auto) Baso # (Auto) Immature Gran # (Auto) Absolute Nucleated RBC Immature Gran % Nucleated RBC % Puncture Site Right Radial ABG pH 7.17 L* D ABG pCO2 45 D ABG pO2 84 D ABG HCO3 16 L ABG O2 Saturation 96 ABG Base Excess -11 L FiO2 40 Sodium Potassium Chloride Carbon Dioxide Anion Gap BUN Creatinine Estim Creat Clear Calc eGFR BUN/Creatinine Ratio Glucose Calculated Osmolality Lactic Acid 4.2 H* Calcium Corrected Calcium Phosphorus Magnesium Total Bilirubin AST ALT Alkaline Phosphatase Troponin I B-Natriuretic Peptide Total Protein Albumin Globulin Albumin/Globulin Ratio Blood Type Antibody Screen Crossmatch Blood Bank Wristband ID Impressions Impression: # Status post repair of the gastric perforation with suturing as well as omental patch # Endotracheal intubation and mechanically ventilated # Metabolic acidosis ABG Interpretation ABG results: 05/13/24 05/15/24 05/15/24 08:29 15:28 16:03 ABG pH 7.39 7.05 L* D 7.17 L* D ABG pCO2 31 L 63 H D 45 D ABG pO2 78 L 38 L* D 84 D ABG HCO3 19 L 18 L 16 L ABG O2 Saturation 96 59 L 96 ABG Base Excess -5 L -12 L -11 L Assessment & Plan A&P Narrative # Acute posthemorrhagic anemia most likely due to the bleeding gastric ulcer Clear liquid diet IV Protonix N.p.o. midnight tonight for a upper endoscopy tomorrow consent will be obtained Serial CBC And transfuse as necessary for hemoglobin of below 7.0 # Altered mental status hepatic/metabolic encephalopathy # Right basilar pneumonia # Acute hypoxic respiratory failure # Hypertension # CKD stage III Thank you very much for the opportunity to participate in the care of this patient Time Spent With Patient Time: Total time spent is greater than 50% in coordination of care (as documented) at patient's floor/unit and/or counseling patient:
[2024-05-15] MEDS: VASOPRESSIN IN NS IVPB 20 UNIT/100 ML BAG 9 UNIT IV (18:10)
--- NOTE | 2024-05-15 18:40 | PD.RESPRO ---
Documentation for date of: 05/15/24 Subjective Subjective Interval history: On 05/15 rapid response was called for severe chest pain however patient maintained a MAP above 65 and vital signs were stable except mildly tachycardic. During the rapid checks x-ray showed vascular congestion and patient appeared to be volume overloaded with 1+ pitting edema bilaterally on lower extremities. Patient underwent CT of the abdomen and pelvis showing pneumoperitoneum and general surgery was consulted. This morning patient underwent ex lap surgery for perforated gastric ulcer. Patient remained intubated postop and is upgraded to the ICU. In the ICU Pt. was unable to wake up from sedation, and became hypotensive with MAP <65 Pt. is started on Levophed and continued to maintain MAP below 65 and pt. required vassopressin. Exam Vital Signs Temp Pulse Resp BP Pulse Ox O2 Del Method O2 Flow Rate 97 F 115 H 16 86/60 L 97 Mechanical Ventilation 1 05/15/24 15:00 05/15/24 15:44 05/15/24 15:00 05/15/24 15:44 05/15/24 15:44 05/15/24 14:50 05/15/24 08:00 FiO2 40 05/15/24 16:22 Objective Labs 05/15/24 18:19 05/15/24 05:27 Labs: Laboratory Results - last 24 hr 05/13/24 05/15/24 05/15/24 05:15 02:01 05:27 WBC 31.5 H D RBC 2.99 L Hgb 7.5 L 8.2 L Hct 23.6 L 26.2 L MCV 88 MCH 27.4 MCHC 31.3 RDW Std Deviation 49.2 H Plt Count 245 Neut % (Auto) 90 H Lymph % (Auto) 6 L [place] % (Auto) 2 Eos % (Auto) 0 Baso % (Auto) 0 Neut # (Auto) 28.5 H Lymph # (Auto) 1.9 [place] # (Auto) 0.7 Eos # (Auto) 0.0 Baso # (Auto) 0.1 Immature Gran # (Auto) 0.33 H Absolute Nucleated RBC 0.26 H Immature Gran % 1 H Nucleated RBC % 1 H Puncture Site ABG pH ABG pCO2 ABG pO2 ABG HCO3 ABG O2 Saturation ABG Base Excess FiO2 Sodium 143 Potassium 4.9 D Chloride 116 H Carbon Dioxide 16.3 L Anion Gap 11 BUN 49 H Creatinine 2.4 H D Estim Creat Clear Calc 20.3 L eGFR 21 L BUN/Creatinine Ratio 20 Glucose 176 H Calculated Osmolality 301 H Lactic Acid Calcium 8.6 Corrected Calcium 9.5 Phosphorus 4.6 Magnesium 1.7 Total Bilirubin 0.8 D AST 17 ALT 11 Alkaline Phosphatase 49 Troponin I 0.402 H* D B-Natriuretic Peptide 1110 H* Total Protein 5.1 L Albumin 2.9 L Globulin 2.2 L Albumin/Globulin Ratio 1.3 Blood Type O Positive Antibody Screen NEGATIVE Crossmatch See Detail Blood Bank Wristband ID Yes 05/15/24 05/15/24 05/15/24 10:45 12:26 15:28 WBC RBC Hgb 7.2 L Hct 23.8 L MCV MCH MCHC RDW Std Deviation Plt Count Neut % (Auto) Lymph % (Auto) [place] % (Auto) Eos % (Auto) Baso % (Auto) Neut # (Auto) Lymph # (Auto) [place] # (Auto) Eos # (Auto) Baso # (Auto) Immature Gran # (Auto) Absolute Nucleated RBC Immature Gran % Nucleated RBC % Puncture Site Right Radial ABG pH 7.05 L* D ABG pCO2 63 H D ABG pO2 38 L* D ABG HCO3 18 L ABG O2 Saturation 59 L ABG Base Excess -12 L FiO2 50 Sodium Potassium Chloride Carbon Dioxide Anion Gap BUN Creatinine Estim Creat Clear Calc eGFR BUN/Creatinine Ratio Glucose Calculated Osmolality Lactic Acid Calcium Corrected Calcium Phosphorus Magnesium Total Bilirubin AST ALT Alkaline Phosphatase Troponin I 0.494 H* B-Natriuretic Peptide Total Protein Albumin Globulin Albumin/Globulin Ratio Blood Type Antibody Screen Crossmatch Blood Bank Wristband ID 05/15/24 05/15/24 16:03 16:19 WBC RBC Hgb Hct MCV MCH MCHC RDW Std Deviation Plt Count Neut % (Auto) Lymph % (Auto) [place] % (Auto) Eos % (Auto) Baso % (Auto) Neut # (Auto) Lymph # (Auto) [place] # (Auto) Eos # (Auto) Baso # (Auto) Immature Gran # (Auto) Absolute Nucleated RBC Immature Gran % Nucleated RBC % Puncture Site Right Radial ABG pH 7.17 L* D ABG pCO2 45 D ABG pO2 84 D ABG HCO3 16 L ABG O2 Saturation 96 ABG Base Excess -11 L FiO2 40 Sodium Potassium Chloride Carbon Dioxide Anion Gap BUN Creatinine Estim Creat Clear Calc eGFR BUN/Creatinine Ratio Glucose Calculated Osmolality Lactic Acid 4.2 H* Calcium Corrected Calcium Phosphorus Magnesium Total Bilirubin AST ALT Alkaline Phosphatase Troponin I B-Natriuretic Peptide Total Protein Albumin Globulin Albumin/Globulin Ratio Blood Type Antibody Screen Crossmatch Blood Bank Wristband ID ABG Interpretation ABG results: 05/13/24 05/15/24 05/15/24 08:29 15:28 16:03 ABG pH 7.39 7.05 L* D 7.17 L* D ABG pCO2 31 L 63 H D 45 D ABG pO2 78 L 38 L* D 84 D ABG HCO3 19 L 18 L 16 L ABG O2 Saturation 96 59 L 96 ABG Base Excess -5 L -12 L -11 L Quality Measures Quality Measures VTE prophylaxis Assessment & Plan Assessment Current Active Medications: Generic Name Dose Route Start Last Admin Trade Name Freq PRN Reason Stop Dose Admin Hydromorphone HCl 0.5 mg 05/14/24 15:35 05/15/24 05:10 Hydromorphone Inj 2 Mg/Ml Vial IVP 05/19/24 15:34 0.5 mg Q6HR PRN Administration PAIN SCALE 7-10 (Severe Azithromycin 500 mg/ Sodium 250 mls @ 250 mls/hr 05/14/24 09:00 05/15/24 13:09 Chloride IV 05/21/24 08:59 250 mls/hr QDAY ANGELICA Administration Protocol Piperacillin/Tazobactam/Dextrose 50 mls @ 12.5 mls/hr 05/15/24 06:00 05/15/24 15:47 Zosyn IV 05/22/24 05:59 12.5 mls/hr Q8HR ANGELICA Administration Protocol Propofol 1,000 mg in 100 mls @ 2.466 mls/hr 05/15/24 10:28 05/15/24 18:35 Diprivan Ivpb IV 06/14/24 10:27 10 mcg/kg/min .Q24H PRN 4.931 mls/hr PER PROTOCOL Titration Protocol 5 MCG/KG/MIN Fentanyl Citrate 2,500 mcg in 250 mls @ 2.5 mls/hr 05/15/24 10:28 05/15/24 16:59 Sublimaze Inj 2,500 Mcg/250 Ml Bag IV 05/20/24 10:27 75 mcg/hr .Q24H PRN 7.5 mls/hr PER PROTOCOL Titration Protocol 25 MCG/HR Norepinephrine Bitartrate 16 mg in 250 mls @ 3.853 mls/hr 05/15/24 10:29 05/15/24 17:12 Levophed In Ns 16mg/250ml IV 06/14/24 10:28 0.13 mcg/kg/min .Q24H PRN 10.017 mls/hr PER protocol Titration Protocol 0.05 MCG/KG/MIN Vasopressin/Sodium Chloride 20 unit in 100 mls @ 9 mls/hr 05/15/24 17:56 05/15/24 18:10 Vasostrict/Ns Ivpb IV 06/14/24 17:55 0.03 unit/min .Q11H7M PRN 9 mls/hr PER PROTOCOL Administration Protocol 0.03 UNIT/MIN Ondansetron HCl 4 mg 05/13/24 11:58 05/14/24 12:31 Ondansetron Inj 2 Mg/Ml Inj 2 Ml IV 06/12/24 11:57 4 mg Q6H PRN Administration NAUSEA OR VOMITING Protocol Pantoprazole Sodium 40 mg 05/15/24 21:00 Pantoprazole Inj 40 Mg Vial IVP 06/14/24 20:59 BID ANGELICA Sucralfate 1 gm 05/13/24 17:00 05/15/24 13:40 Sucralfate Susp 1 Gm/10 Ml Udc PO 06/12/24 16:59 Not Given QID ANGELICA Plan Mr. Castellanos is a 69-year-old female with past medical history significant for hypertension, CKD stage III, and history of gastric ulcers who presented to the ED on 05/13/2024 after she was found unconscious on the floor. Per chart reviewing prior to this unconsciousness patient was having abdominal pain and generalized weakness with diarrhea and shortness of breath for 2 days. Patient was admitted to the hospital for treatment and management of sepsis secondary to pneumonia. Patient was given 1 L normal saline and started on ceftriaxone and azithromycin. patient underwent ex lap surgery for perforated gastric ulcer. Patient remained intubated postop and is upgraded to the ICU.
[2024-05-15 19:16] LABS: Hematocrit 22.6 % (36.0-46.0)
[2024-05-15 19:24] LABS: Reflex Lactate? Y
--- NOTE | 2024-05-15 19:26 | ESOP_ITS ---
<Statement entered by Sinan Robles MD - 05/16/24 11:37> I was present for the critical and donnelly portions of the procedure and was immediately available to provide assistance. Procedures Procedure Date / Time 05/15/24 1700 Procedural Time Out Time out performed: Yes Central Line Placement Right IJ: Indication(s): shock Informed consent obtained: obtained from surrogate decision maker Time out done, and the following verified: correct patient, side and site, procedure, patient position and implants and/or equipment Patient placed on monitor/pulse ox: Yes Hand Hygiene: scrub, soap & water and alcohol-based hand rub Max Sterile Barrier Techniques used: cap, mask, sterile gown, sterile gloves, sterile full body drape and other Central line prep: Povidone-Iodine 1%, Chlorhexidine scrub and sterile drapes applied Local anesthesia used: lidocaine 1% Amount of anesthesia used (mL): 2 Ultrasound used for placement: Yes Sterile Technique if Ultrasound used, including sterile gel: yes Central line lumen inserted: triple Post procedure: sutured in place, good blood return, all ports aspirated, flushed, capped and sterile dressing applied Post procedure x-ray: tip of catheter in good position and no pneumothorax seen Patient tolerated procedure: well and no complications EBL(ml): 3 Complications: none Procedure comment: The patient's management plan was discussed with my attending physician MD Sameer Lara MD, PGY2
[2024-05-15] MEDS: PANTOPRAZOLE INJ 40 MG VIAL IVP (20:17)
[2024-05-15 20:23] LABS: Lactic Acid, 3 HR 3.4 mMol/L (0.4-2.0)
--- NOTE | 2024-05-15 21:30 | ESCONSULT_ITS ---
<Statement entered by Sinan Robles MD - 05/16/24 11:46> TOTAL CC TIME:45 MIN I saw and evaluated the patient. I reviewed the resident?s note and agree with findings and plan as documented in the resident?s note. Upon my evaluation, this patient had a high probability of imminent or life- threatening deterioration due to septic shock which required my direct attention, intervention, and personal management. This time is exclusive of time spent on procedures, which are documented separately if performed. Gastric ulcer perforation with pneumoperitoneum and septic shock. Status post primary repair Patient received 1 L of IV fluids in the operating room and an additional 1 L bolus of LR was given when she arrived in the intensive care unit. Subsequent POCUS exam identified normal caliber IVC without evidence of volume depletion. Patient is acidemic and mechanical ventilation was adjusted to compensate for this. Trend lactic acids Continue Zosyn HPI Data of Consult Requesting Physician: Michel See MD Admitting Provider: Michel See MD Attending Provider: Michel See MD Primary Care Provider: Gagan Catherine Consult Narrative History of present illness: Ms. Castellanos is a 69-year-old female with past medical history significant for hypertension, diabetes, CKD stage III, and history of gastric ulcers who presented to the ED on 05/13/2024 after she was found unconscious on the floor.Patient was admitted to the hospital for treatment and management of sepsis secondary to pneumonia. On 05/15 rapid response was called for severe chest pain however patient maintained a MAP above 65 and vital signs were stable except mildly tachycardic. During the rapid checks x-ray showed vascular congestion and patient appeared to be volume overloaded with 1+ pitting edema bilaterally on lower extremities. Patient underwent CT of the abdomen and pelvis showing pneumoperitoneum and general surgery was consulted. This morning patient underwent ex lap surgery for perforated gastric ulcer. Patient remained intubated postop and is upgraded to the ICU. In the ICU Pt. was unable to wake up from sedation, and became hypotensive with MAP <65 Pt. is started on Levophed and continued to maintain MAP below 65 and pt. required vassopressin. cc:: cc: Michel See MD Review of Systems Review of Systems Systems Reviewed: All systems reviewed, normal except as documented Exam Vital Signs Temp Pulse Resp BP Pulse Ox O2 Del Method O2 Flow Rate 97.3 F 106 H 26 H 100/55 L 99 Mechanical Ventilation 1 05/15/24 20:00 05/15/24 20:30 05/15/24 20:30 05/15/24 20:30 05/15/24 20:30 05/15/24 20:00 05/15/24 08:00 FiO2 35 05/15/24 20:00 Narrative Exam GENERAL: sedated and on michanical ventilation NEURO: unable to obtain due to patient being intubated and on mechanical ventilation HEENT: Atraumatic, Normocephalic. mucous membranes moist. HEART: Normal Heart Sounds LUNGS: Clear to auscultation with no wheezing or crackles. ABDOMEN: surgical scar is clean SKIN: No Rash or ecchymoses EXTREMITIES: non pitting edema in upper and lower extremities, no tenderness, pedal pulses palpated Results Labs 05/16/24 06:03 05/15/24 05:27 Labs: Short CBC 05/15/24 05/15/24 05/15/24 Range/Units 02:01 05:27 12:26 WBC 31.5 H D (3.6-11.0) Thou/mm3 Hgb 7.5 L 8.2 L 7.2 L (12.0-16.0) g/dL Hct 23.6 L 26.2 L 23.8 L (36.0-46.0) % Plt Count 245 (140-440) Thou/mm3 05/15/24 Range/Units 18:19 WBC (3.6-11.0) Thou/mm3 Hgb 7.0 L (12.0-16.0) g/dL Hct 22.6 L (36.0-46.0) % Plt Count (140-440) Thou/mm3 [facility] 05/15/24 05:27 Sodium 143 Potassium 4.9 D Chloride 116 H Carbon Dioxide 16.3 L BUN 49 H Creatinine 2.4 H D Glucose 176 H Calcium 8.6 Cardiac Enzymes 05/15/24 05/15/24 Range/Units 05:27 10:45 Troponin I 0.402 H* D 0.494 H* (0.0-0.045) ng/mL Liver Function 05/15/24 Range/Units 05:27 Total Bilirubin 0.8 D (0.3-1.2) mg/dL AST 17 (0-34) U/L ALT 11 (10-49) U/L Alkaline Phosphatase 49 (46-116) U/L Albumin 2.9 L (3.4-4.8) gm/dL ABG Interpretation ABG results: 05/13/24 05/15/24 05/15/24 08:29 15:28 16:03 ABG pH 7.39 7.05 L* D 7.17 L* D ABG pCO2 31 L 63 H D 45 D ABG pO2 78 L 38 L* D 84 D ABG HCO3 19 L 18 L 16 L ABG O2 Saturation 96 59 L 96 ABG Base Excess -5 L -12 L -11 L Quality Measures Quality Measures VTE prophylaxis Advance care planning discussed with:: spouse Medications Home Medications and Allergies Home Medications ?Medication ?Instructions ?Recorded ?Confirmed ?Type amlodipine 10 mg tablet 10 mg PO QDAY 11/16/23 05/13/24 History atorvastatin 80 mg tablet 80 mg PO QPM 11/16/23 05/13/24 History ergocalciferol (vitamin D2) 1,250 1,250 mcg PO QWEEK 11/16/23 05/13/24 History mcg (50,000 unit) capsule (Vitamin D2) glipizide 2.5 mg tablet 2.5 mg PO QDAY 11/16/23 05/13/24 History sitagliptin phosphate 100 mg 100 mg PO QDAY 11/16/23 05/13/24 History tablet (Januvia) folic acid 1 mg tablet 1 mg PO QDAY 05/13/24 05/13/24 History Allergies Allergy/AdvReac Type Severity Reaction Status Date / Time No Known Allergies Allergy Verified 11/19/23 18:02 Visit Medications Hydromorphone HCl (Hydromorphone Inj 2 Mg/Ml Vial) 0.5 mg IVP Q6HR PRN PRN Reason: PAIN SCALE 7-10 (Severe Stop: 05/19/24 15:34 Last Admin: 05/15/24 05:10 Dose: 0.5 mg Azithromycin 500 mg/ Sodium (Chloride) 250 mls @ 250 mls/hr IV QDAY ANGELICA; Protocol Stop: 05/21/24 08:59 Last Admin: 05/15/24 13:09 Dose: 250 mls/hr Piperacillin/Tazobactam/Dextrose (Zosyn) 50 mls @ 12.5 mls/hr IV Q8HR ANGELICA; Protocol Stop: 05/22/24 05:59 Last Admin: 05/15/24 15:47 Dose: 12.5 mls/hr Propofol (Diprivan Ivpb) 1,000 mg in 100 mls @ 2.466 mls/hr IV .Q24H PRN; Protocol PRN Reason: PER PROTOCOL Stop: 06/14/24 10:27 Last Titration: 05/15/24 20:00 Dose: 10 mcg/kg/min, 4.931 mls/hr Fentanyl Citrate (Sublimaze Inj 2,500 Mcg/250 Ml Bag) 2,500 mcg in 250 mls @ 2.5 mls/hr IV .Q24H PRN; Protocol PRN Reason: PER PROTOCOL Stop: 05/20/24 10:27 Last Titration: 05/15/24 20:20 Dose: 75 mcg/hr, 7.5 mls/hr Norepinephrine Bitartrate (Levophed In Ns 16mg/250ml) 16 mg in 250 mls @ 3.853 mls/hr IV .Q24H PRN; Protocol PRN Reason: PER protocol Stop: 06/14/24 10:28 Last Titration: 05/15/24 20:00 Dose: 0.3 mcg/kg/min, 23.116 mls/hr Vasopressin/Sodium Chloride (Vasostrict/Ns Ivpb) 20 unit in 100 mls @ 9 mls/hr IV .Q11H7M PRN; Protocol PRN Reason: PER PROTOCOL Stop: 06/14/24 17:55 Last Admin: 05/15/24 18:10 Dose: 0.03 unit/min, 9 mls/hr Ondansetron HCl (Ondansetron Inj 2 Mg/Ml Inj 2 Ml) 4 mg IV Q6H PRN; Protocol PRN Reason: NAUSEA OR VOMITING Stop: 06/12/24 11:57 Last Admin: 05/14/24 12:31 Dose: 4 mg Pantoprazole Sodium (Pantoprazole Inj 40 Mg Vial) 40 mg IVP BID [facility] Stop: 06/14/24 20:59 Last Admin: 05/15/24 20:17 Dose: 40 mg Discontinued Medications Acetaminophen (Acetaminophen 325 Mg Tablet) 650 mg PO Q6H PRN PRN Reason: Fever >101.5 Stop: 06/12/24 11:57 Acetaminophen (Acetaminophen 325 Mg Tablet) 650 mg PO Q6H PRN PRN Reason: PAIN SCALE 1-3 (mild Stop: 06/12/24 11:57 Last Admin: 05/13/24 17:59 Dose: 650 mg Azithromycin (Azithromycin 250 Mg Tablet) 500 mg PO QDAY [facility] Stop: 05/21/24 08:59 Bumetanide (Bumetanide Inj 0.25 Mg/Ml Vial 4 Ml) 1 mg IVP X1 ONE Stop: 05/13/24 13:11 Last Admin: 05/13/24 15:00 Dose: 1 mg Furosemide (Furosemide Inj 10 Mg/Ml 4ml Vial) 40 mg IVP X1 ONE Stop: 05/15/24 04:56 Last Admin: 05/15/24 07:20 Dose: Not Given Heparin Sodium (Porcine) (Heparin Sod Inj 5000 Unit/Ml Vial) 5,000 unit SC Q8HR [facility] Stop: 05/27/24 13:59 Last Admin: 05/13/24 21:12 Dose: 5,000 unit Hydromorphone HCl (Hydromorphone Inj 2 Mg/Ml Vial) 0.25 mg IVP X1 ONE Stop: 05/14/24 12:46 Last Admin: 05/14/24 13:41 Dose: 0.25 mg Hydroxyzine HCl (Hydroxyzine Hcl 25 Mg Tablet) 25 mg PO X1 ONE Stop: 05/15/24 05:38 Last Admin: 05/15/24 06:01 Dose: 25 mg Sodium Chloride (Ns) 1,000 mls @ 999 mls/hr IV .Q1H1M ONE Stop: 05/13/24 06:11 Last Infusion: 05/13/24 06:20 Dose: Infused Ceftriaxone Sodium 1,000 mg/ (Sodium Chloride) 50 mls @ 100 mls/hr IV X1 ONE Stop: 05/13/24 06:23 Last Infusion: 05/13/24 07:05 Dose: Infused Azithromycin 500 mg/ Sodium (Chloride) 250 mls @ 250 mls/hr IV X1 ONE Stop: 05/13/24 06:53 Last Infusion: 05/13/24 07:35 Dose: Infused Ceftriaxone Sodium/Dextrose (Rocephin/D5w 1gm Iv Premix) 50 mls @ 100 mls/hr IV QDAY ANGELICA Stop: 05/20/24 12:03 Last Admin: 05/13/24 12:20 Dose: Not Given Azithromycin 500 mg/ Sodium (Chloride) 250 mls @ 250 mls/hr IV QDAY ANGELICA Stop: 05/20/24 12:03 Last Admin: 05/13/24 12:20 Dose: Not Given Ceftriaxone Sodium/Dextrose (Rocephin/D5w 1gm Iv Premix) 50 mls @ 100 mls/hr IV QDAY ANGELICA Stop: 05/21/24 08:59 Sodium Chloride (Ns) 1,000 mls @ 999 mls/hr IV .Q1H1M ONE Stop: 05/13/24 13:47 Last Infusion: 05/13/24 13:55 Dose: Infused Ceftriaxone Sodium/Dextrose (Rocephin/D5w 1gm Iv Premix) 50 mls @ 100 mls/hr IV QDAY ANGELICA Stop: 05/21/24 08:59 Last Admin: 05/14/24 08:37 Dose: 100 mls/hr Azithromycin 500 mg/ Sodium (Chloride) 250 mls @ 250 mls/hr IV X1 ONE; Protocol Stop: 05/13/24 14:14 Pantoprazole Sodium (Protonix/Ns 80mg Iv Premix) 80 mg in 100 mls @ 10 mls/hr IV Q10H ANGELICA Stop: 05/17/24 06:03 Last Admin: 05/15/24 20:22 Dose: 10 mls/hr Potassium Chloride (Kcl Ivpb) 10 meq in 100 mls @ 100 mls/hr IV Q1H ANGELICA Stop: 05/14/24 12:46 Last Admin: 05/14/24 11:48 Dose: Not Given Sodium Chloride (Ns) 500 mls @ 999 mls/hr IV .Q31M ONE Stop: 05/15/24 00:57 Last Infusion: 05/15/24 12:00 Dose: Infused Sodium Chloride (Ns) 500 mls @ 999 mls/hr IV .Q31M ONE Stop: 05/15/24 01:49 Last Admin: 05/15/24 01:32 Dose: 999 mls/hr Albumin Human (Albuminar-25 Ivpb) 12.5 gm in 50 mls @ 50 mls/hr IV X1 ONE Stop: 05/15/24 05:56 Albumin Human (Albuminar-25 Ivpb) 25 gm in 100 mls @ 100 mls/hr IV X1 ONE Stop: 05/15/24 05:59 Last Admin: 05/15/24 07:27 Dose: 100 mls/hr Sodium Chloride (Ns) 500 mls @ 999 mls/hr IV .Q31M ONE Stop: 05/15/24 08:12 Last Admin: 05/15/24 07:43 Dose: 999 mls/hr Sodium Chloride (Ns) 1,000 mls @ 999 mls/hr IV .Q1H1M ONE Stop: 05/15/24 08:53 Last Admin: 05/15/24 15:50 Dose: Not Given Lactated Ringer's (Lactated Ringers) 1,000 mls @ 999 mls/hr IV .Q1H1M ONE Stop: 05/15/24 11:22 Last Infusion: 05/15/24 11:37 Dose: Infused Insulin Human Regular (Insulin Hum Regular 1 Unit/0.01 Ml (Per Unit)) 5 unit IV X1 ONE Stop: 05/13/24 07:08 Last Admin: 05/13/24 09:42 Dose: Not Given Lidocaine (Lidocaine 5% 1 Patch) 1 patch TOP X1 ONE Stop: 05/14/24 03:21 Last Admin: 05/14/24 03:28 Dose: 1 patch Pantoprazole Sodium (Pantoprazole Inj 40 Mg Vial) 40 mg IVP Q12HR [facility] Stop: 06/12/24 20:59 Pantoprazole Sodium (Pantoprazole 40 Mg Tablet) 40 mg PO QDAY ANGELICA Stop: 06/13/24 08:59 Pantoprazole Sodium (Pantoprazole Inj 40 Mg Vial) 80 mg IV X1 ONE Stop: 05/14/24 08:03 Last Admin: 05/14/24 08:37 Dose: 80 mg Potassium Chloride (Potassium Chloride 20 Meq Tabcr) 40 meq PO X1 ONE Stop: 05/14/24 11:40 Last Admin: 05/14/24 12:18 Dose: 40 meq Sennosides (Senna Tablet) 1 tab PO QDAY PRN; Protocol PRN Reason: constipation Stop: 06/12/24 11:57 Sucralfate (Sucralfate Susp 1 Gm/10 Ml Udc) 1 gm PO QID ANGELICA Stop: 06/12/24 16:59 Last Admin: 05/15/24 13:40 Dose: Not Given Assessment & Plan Plan Ms. Castellanos is a 69-year-old female with past medical history significant for hypertension, diabetes, CKD stage III, and history of gastric ulcers who presented to the ED on 05/13/2024 after she was found unconscious on the floor. Per chart reviewing prior to this unconsciousness patient was having abdominal pain and generalized weakness with diarrhea and shortness of breath for 2 days. Patient was admitted to the hospital for treatment and management of sepsis secondary to pneumonia. Patient was given 1 L normal saline and started on ceftriaxone and azithromycin. patient underwent ex lap surgery for perforated gastric ulcer. Patient remained intubated postop and is upgraded to the ICU. Neuro: #Acute Encephaopathy - Likely multifactorial 2/2 to infectious plus metabolic - Now on sedation with propofol and fentanyl - Brain MRI with MRA shows significant stenoses in posterior cerebral artery - Plan: sedation vacation in am and non pharm measures to prevent delirium Cardiovasc: #distributive shock DDx: more likely Septic shock vs. hemorrhagic shock vs hypovolemic -S/P aggressive fluid resuscitation, continue to monitor and will give additional fluids as needed - Plan: start levophed and vasopression to maintain MAP >65, wean as tolerated. Albumin ordered. Continue iv antibiotics and additional fluids as needed #Acute decompensated HF -Pt presented with SOB and 1+ edema in LE -CXR showed some vascular congestion and Echo from 04/16 show EF 60-65% and mild to moderate mitral valve stenosis and moderate MAC -elevated BNP from 304 --> 1110 -holding guideline directed medical therapy due to shock, will resume when able #Elevated Troponin most likely secondary to demand ischemia in setting of shock Plan: Troponin increased to 0.494 and continue to monitor until down-trend. #Hyperlipidemia -Plan: Hold home atorvastatin as patient is npo. Will reinstate as tolerated #Primary Hypertension -Plan: Hole home norvasc in setting of shock Pulm: #Acute Hypoxic Respiratory failure - 2/2 to pneumoperitoneum +/- CHF +/- sedation - CXR: [id number] heart failure -ABG: pH 7.17, pC02 45, p02 84, HCO3 16 - Plan: intubated 05/15/24 on volume control. repeat cxr and abg in am. Spontaneous breathing trail tomorrow Renal: #Acute Kidney Injury - 2/2 secondary to prerenal azootemia in setting of septic - Baseline Cr appears to be 0.7 - Renally dose medications and avoid nephrotoxic agents - Plan: Cr increased to 2.4, s/p aggressive fluid resuscitation. Guajardo catheter in place and monitor urine output closely. repeat renal panel in am #Metabolic acidosis #Lactic Acidosis - likely 2/2 to Type A lactic acidosis from shock. -Continue pressors and fluids, f/u repeat lactic acid GI: #Pneumoperitoneum #Peritonitis secondary to perforated gastric ulcer Patient found to have tender abdomen, rigidity in the epigastrium, chest x-ray showed elevation of hemidiaphragm, CT abdomen showed pneumoperitoneum, concern for perforated viscus, general surgeon Dr. Silva was consulted for emergency laparotomy and possible repair of perforated gastric ulcer. ?Patient was given IV fluid boluses, IV albumin 1 PRBC was ordered ?Antibiotic coverage was broadened to Zosyn to cover for anaerobic and enteric pathogens. - Plan: s/p Exploratory laparotomy & repair of perforated gastric ulcer - 05/15. -Surgery following and on pain management with fentanyl gtt. #Acute Upper GI bleed - most likely secondary to perforated gastric ulcer - Plan: Continue iv Protonix. -GI consulted with plans for upper endoscopy. -Hold chemical anticoagulation #GI ppx - pantoprazole #Diet - NPO Endo: #Diabetes Mellitus type II - A1C 6.7 % - Hold home glipizide and januvia - Plan: Continue to monitor blood sugars, patient currently NPO and will hold starting sliding scale as blood sugars are well controlled Heme/Onc: #Acute anemia, ?Concern for GI bleed, acute drop in hemoglobin, ?In the setting of gastric perforation, 1 PRBC ordered on 05/15 - Plan: Continue to monitor H & H. transfuse for hemoglobin less than 7. Infxs: #Septic Shock - most likely secondary to GI source from perforated gastric ulcer - S/P sepsis fluid resuscitation - Evidence of end organ damage with encephalopathy and ADILSON - 05/13/24 blood cultures preliminarly show no growth at 48 hours - Plan: Severe leukocytosis present. Continue IV Zosyn, follow-up final culture results and repeat hematology panel in am (Skin:) #Pressure Ulcer Prevention Disposition: ICU for AHRF & septic shock requiring mechanical ventilation and pressor support DVT Prophylaxis: Hold chemical anticoagulation in setting of possible GI bleed GI Prophylaxis: Pantoprozol-40 IV Diet: NPO Lines: central line R. IJ Code status: Full Assessment and plan discussed with attending physician Dr. Travis Rivera (PGY-1)- Internal medicine resident
[2024-05-16] VITALS (112 sets, daily range): BP systolic 65–159; BP diastolic 35–89; PULSE 65–161; RESP 17–34; TEMP 36.2–37.2; O2SAT 92–99; BMI 37.0; BMI 37.2
[2024-05-16 01:00] LABS: Lactate (Lactic Acid) 1.9 mMol/L (0.4-2.0)
[2024-05-16 01:03] LABS: Hematocrit 21.3 % (36.0-46.0); Hemoglobin 6.7 g/dL (12.0-16.0)
[2024-05-16] MEDS: VASOPRESSIN IN NS IVPB 20 UNIT/100 ML BAG 9 UNIT IV ×2 (02:36→16:05)
[2024-05-16] MEDS: Norepinephrine/NS 16mg/250ml 16 MG/250 ML BAG 24.657 MG IV (02:42)
[2024-05-16 04:59] LABS: Base Excess -10 (-3-3); HCO3 16 mEq/L (20-26); Inspired Oxygen, FIO2 35 %; O2 Saturation 98 % (91-98); PCO2 34 mmHg (32.0-48.0); PO2 96 mmHg (83-108); pH, Arterial 7.28 (7.35-7.45)
[2024-05-16] MEDS: PIPER/TAZO 3.375 GM 50 ML IV ×2 (05:00→13:46)
[2024-05-16 05:09] LABS: Allen Test Performed/OK; Puncture Site Left Radial
[2024-05-16] MEDS: PROPOFOL 1,000 MG IVPB 1,000 MG/100 ML VIAL 4.931 MG IV (06:13)
[2024-05-16 06:23] LABS: Lactate (Lactic Acid) 1.6 mMol/L (0.4-2.0)
[2024-05-16 06:33] LABS: Basophils # (Auto) 0.1 Thou/mm3 (0.0-0.2); Basophils % (Auto) 0 % (0-2.5); Eosinophils # (Auto) 0.3 Thou/mm3 (0.0-0.5); Eosinophils % (Auto) 1 % (0-10); Hematocrit 24.9 % (36.0-46.0); Immature Granulocytes % (Auto) 2 % (0-0); Immature Granulocytes Auto 0.63 Thou/mm3 (0.00-0.00); Lymphocytes # (Auto) 1.3 Thou/mm3 (1.0-4.8); Lymphocytes % (Auto) 4 % (10-50); Mean Corpuscular HGB Conc 32.1 g/dl (31.0-37.0); Mean Corpuscular Hemoglobin 27.9 pg (25.0-35.0); Mean Corpuscular Volume 87 fL (80-100); Monocytes % (Auto) 3 % (0-12); Neutrophils # (Auto) 31.5 Thou/mm3 (1.8-7.7); Neutrophils % (Auto) 91 % (37-80); Nucleated Red Blood Cell # 0.89 Thou/mm3 (0.00-0.00); Nucleated Red Blood Cell % 3 /100 WBC (0); Platelet Count 252 Thou/mm3 (140-440); RDW Standard Deviation 47.8 fL (36.4-46.3); Red Blood Count 2.87 Miln/mm3 (4.00-5.20)
[2024-05-16 06:34] LABS: White Blood Count 34.7 Thou/mm3 (3.6-11.0)
[2024-05-16 07:30] LABS: Alanine Aminotransferase 121 U/L (10-49); Albumin, Serum 2.9 gm/dL (3.4-4.8); Albumin/Globulin Ratio 1.5 (1.2-2.2); Alkaline Phosphatase 61 U/L (46-116); Anion Gap 11 (7-16); Aspartate Amino Transferase 170 U/L (0-34); BUN/Creatinine Ratio 20 Ratio (12-20); Bilirubin,Total 1.2 mg/dL (0.3-1.2); Blood Urea Nitrogen 55 mg/dL (9-23); Calcium 8.8 mg/dL (8.3-10.6); Calcium (Corrected) 9.7 mg/dL (8.5-10.1); Carbon Dioxide 16.3 mMol/L (20.0-31.0); Chloride 115 mMol/L (98-107); Creatinine (Component) 2.8 mg/dL (0.6-1.3); Estimated Creatinine Clearance 17.2 mL/min (>60); Glucose 164 mg/dL (74-106); Magnesium 1.9 mg/dL (1.6-2.6); Osmolality,Calculated 302 (275-295); Phosphorous 5.2 mg/dL (2.4-5.1); Potassium 4.7 mMol/L (3.4-5.1); Sodium 142 mMol/L (136-145); Total Protein 4.9 gm/dL (5.7-8.2); eGFR 18 See Note
[2024-05-16] MEDS: PANTOPRAZOLE INJ 40 MG VIAL IVP ×2 (08:06→21:24)
[2024-05-16] MEDS: AZITHROMYCIN INJ 500 MG in SODIUM CHLORIDE 0.9% 250 ML 250 ML 250 MG IV (08:24)
--- NOTE | 2024-05-16 09:44 | ESPR_ITS ---
Documentation for date of: 05/16/24 Subjective Subjective Brief History: 69F with HTN, CKDIII, pre DM and known gastric ulcers who was admitted 05/13 after being found down at home. Pt was admitted for encephalopathy and pneumonia, developed anemia for which EGD was planned today however this am had an [employer] for tachycardia, hypotension and acute pain; she underwent CT AP showing pneumoperitoneum with air droplets adjacent to the stomach PMH: HTN, CKDIII, preDM, known gastric ulcers on EGD 10/2023 PSHx: None Meds: No antiplt or anticoagulation Allergies: NKDA Narrative: Requiring levophed and vasopressin, Tmax 99, NG had 25cc overnight, BALAJI 40cc since surgery, WBC in 34 from 31 Exam Vital Signs Temp Pulse Resp BP Pulse Ox O2 Del Method O2 Flow Rate 98.7 F 88 26 H 98/45 L 97 Mechanical Ventilation 1 05/16/24 07:00 05/16/24 08:30 05/16/24 08:30 05/16/24 08:30 05/16/24 08:30 05/16/24 04:01 05/15/24 08:00 FiO2 35 05/16/24 06:41 Constitutional Constitutional: no acute distress Routine Respiratory Exam Respiratory: Present no resp distress and patient mechanically ventilated Routine Abdominal Exam Abdominal: Present soft, distended, wound (midline wound with dressing c/d/i) and drain (BALAJI with serosanguinous output) Results Results: Laboratory Laboratory results: results reviewed Assessment & Plan Plan 69F with HTN, CKDIII, pre DM and known gastric ulcers who was admitted 05/13 after being found down at home, who developed pneumoperitoneum 05/15 now s/p emergent ex lap, repair of gastric perforation, remaining critically ill NG to LIS Monitor BALAJI output Wean pressor support as tolerated Continue abx Procedures Procedures Exploratory laparotomy, repair of perforated gastric ulcer
--- NOTE | 2024-05-16 10:01 | ESPR_ITS ---
Documentation for date of: 05/16/24 Subjective Subjective Interval history: Patient seen in the ICU this morning. No overnight events. Patient continues to be mechanically ventilated and sedated Patient continues to be on pressor support Patient in this afternoon developed A-Fib with RVR with ST depressions in anterolateral leads which are mostly rate related ST depressions Echo ordered to rule out post operative MO and to evaluate for any new regional wall motion abnormalities and to reevaluate bradycardia contraction Recommend to start Amio drip and Amio 200mg P.O. BID. No heparin drip as patient has perforated ulcer. No further troponins recommended. Potassium 4.7 magnesium 1.9, recommend to replete potassium and magnesium to keep above 4 and 2 respectively to avoid any further arrhythmias. Exam Vital Signs Temp Pulse Resp BP Pulse Ox O2 Del Method O2 Flow Rate 98.7 F 88 26 H 98/45 L 97 Mechanical Ventilation 1 05/16/24 07:00 05/16/24 08:30 05/16/24 08:30 05/16/24 08:30 05/16/24 08:30 05/16/24 04:01 05/15/24 08:00 FiO2 35 05/16/24 06:41 Narrative Exam General: Sedated and intubated Eyes: Pupils reactive to light Ears: No visible ear discharge Nose: No visible nasal discharge Mouth/Throat: Dry mucous membranes, no redness, no lesions. Neck: Short neck , non-tender, no cervical lymphadenopathy. Lungs: Mechanically ventilated, bronchial breath sounds Cardio: Normal S1/S2, regular rhythm, systolic murmurs, no JVD Abdomen: Soft, non-tender, no palpable masses, peristalsis present, no guarding or rebound. Surgical scar covered with clean dressing. Extremities: Symmetrical, no significant deformities, trace peripheral edema , non-tender, peripheral pulses presents. Skin: No rashes, no lesions, warm to touch. Neuro: Patient is currently sedated Objective Labs 05/16/24 06:03 05/16/24 12:19 Labs: Laboratory Results - last 24 hr 05/13/24 05/15/24 05/15/24 05:15 10:45 12:26 WBC RBC Hgb 7.2 L Hct 23.8 L MCV MCH MCHC RDW Std Deviation Plt Count Neut % (Auto) Lymph % (Auto) [place] % (Auto) Eos % (Auto) Baso % (Auto) Neut # (Auto) Lymph # (Auto) [place] # (Auto) Eos # (Auto) Baso # (Auto) Immature Gran # (Auto) Absolute Nucleated RBC Immature Gran % Nucleated RBC % Puncture Site ABG pH ABG pCO2 ABG pO2 ABG HCO3 ABG O2 Saturation ABG Base Excess FiO2 Sodium Potassium Chloride Carbon Dioxide Anion Gap BUN Creatinine Estim Creat Clear Calc eGFR BUN/Creatinine Ratio Glucose Calculated Osmolality Lactic Acid Calcium Corrected Calcium Phosphorus Magnesium Total Bilirubin AST ALT Alkaline Phosphatase Troponin I 0.494 H* Total Protein Albumin Globulin Albumin/Globulin Ratio Blood Type O Positive Antibody Screen NEGATIVE Crossmatch See Detail Blood Bank Wristband ID Yes 05/15/24 05/15/24 05/15/24 15:28 16:03 16:19 WBC RBC Hgb Hct MCV MCH MCHC RDW Std Deviation Plt Count Neut % (Auto) Lymph % (Auto) [place] % (Auto) Eos % (Auto) Baso % (Auto) Neut # (Auto) Lymph # (Auto) [place] # (Auto) Eos # (Auto) Baso # (Auto) Immature Gran # (Auto) Absolute Nucleated RBC Immature Gran % Nucleated RBC % Puncture Site Right Radial Right Radial ABG pH 7.05 L* D 7.17 L* D ABG pCO2 63 H D 45 D ABG pO2 38 L* D 84 D ABG HCO3 18 L 16 L ABG O2 Saturation 59 L 96 ABG Base Excess -12 L -11 L FiO2 50 40 Sodium Potassium Chloride Carbon Dioxide Anion Gap BUN Creatinine Estim Creat Clear Calc eGFR BUN/Creatinine Ratio Glucose Calculated Osmolality Lactic Acid 4.2 H* Calcium Corrected Calcium Phosphorus Magnesium Total Bilirubin AST ALT Alkaline Phosphatase Troponin I Total Protein Albumin Globulin Albumin/Globulin Ratio Blood Type Antibody Screen Crossmatch Blood Bank Wristband ID 05/15/24 05/15/24 05/16/24 18:19 20:02 00:40 WBC RBC Hgb 7.0 L 6.7 L* Hct 22.6 L 21.3 L* MCV MCH MCHC RDW Std Deviation Plt Count Neut % (Auto) Lymph % (Auto) [place] % (Auto) Eos % (Auto) Baso % (Auto) Neut # (Auto) Lymph # (Auto) [place] # (Auto) Eos # (Auto) Baso # (Auto) Immature Gran # (Auto) Absolute Nucleated RBC Immature Gran % Nucleated RBC % Puncture Site ABG pH ABG pCO2 ABG pO2 ABG HCO3 ABG O2 Saturation ABG Base Excess FiO2 Sodium Potassium Chloride Carbon Dioxide Anion Gap BUN Creatinine Estim Creat Clear Calc eGFR BUN/Creatinine Ratio Glucose Calculated Osmolality Lactic Acid 3.4 H 1.9 Calcium Corrected Calcium Phosphorus Magnesium Total Bilirubin AST ALT Alkaline Phosphatase Troponin I Total Protein Albumin Globulin Albumin/Globulin Ratio Blood Type Antibody Screen Crossmatch Blood Bank Wristband ID 05/16/24 05/16/24 05/16/24 01:21 04:38 06:03 WBC 34.7 H RBC 2.87 L Hgb 8.0 L Hct 24.9 L MCV 87 MCH 27.9 MCHC 32.1 RDW Std Deviation 47.8 H Plt Count 252 Neut % (Auto) 91 H Lymph % (Auto) 4 L [place] % (Auto) 3 Eos % (Auto) 1 Baso % (Auto) 0 Neut # (Auto) 31.5 H Lymph # (Auto) 1.3 [place] # (Auto) 1.0 H Eos # (Auto) 0.3 Baso # (Auto) 0.1 Immature Gran # (Auto) 0.63 H Absolute Nucleated RBC 0.89 H Immature Gran % 2 H Nucleated RBC % 3 H Puncture Site Left Radial ABG pH 7.28 L D ABG pCO2 34 D ABG pO2 96 ABG HCO3 16 L ABG O2 Saturation 98 ABG Base Excess -10 L FiO2 35 Sodium 142 Potassium 4.7 Chloride 115 H Carbon Dioxide 16.3 L Anion Gap 11 BUN 55 H Creatinine 2.8 H Estim Creat Clear Calc 17.2 L eGFR 18 L BUN/Creatinine Ratio 20 Glucose 164 H Calculated Osmolality 302 H Lactic Acid 1.6 Calcium 8.8 Corrected Calcium 9.7 Phosphorus 5.2 H Magnesium 1.9 Total Bilirubin 1.2 AST 170 H ALT 121 H Alkaline Phosphatase 61 D Troponin I Total Protein 4.9 L Albumin 2.9 L Globulin 2.0 L Albumin/Globulin Ratio 1.5 Blood Type O Positive Antibody Screen NEGATIVE Crossmatch See Detail Blood Bank Wristband ID Yes ABG Interpretation ABG results: 05/13/24 05/15/24 05/15/24 08:29 15:28 16:03 ABG pH 7.39 7.05 L* D 7.17 L* D ABG pCO2 31 L 63 H D 45 D ABG pO2 78 L 38 L* D 84 D ABG HCO3 19 L 18 L 16 L ABG O2 Saturation 96 59 L 96 ABG Base Excess -5 L -12 L -11 L 05/16/24 04:38 ABG pH 7.28 L D ABG pCO2 34 D ABG pO2 96 ABG HCO3 16 L ABG O2 Saturation 98 ABG Base Excess -10 L Quality Measures Quality Measures VTE prophylaxis Advance care planning discussed with:: patient Assessment & Plan Assessment Current Active Medications: Generic Name Dose Route Start Last Admin Trade Name Freq PRN Reason Stop Dose Admin Hydromorphone HCl 0.5 mg 05/14/24 15:35 05/15/24 05:10 Hydromorphone Inj 2 Mg/Ml Vial IVP 05/19/24 15:34 0.5 mg Q6HR PRN Administration PAIN SCALE 7-10 (Severe Azithromycin 500 mg/ Sodium 250 mls @ 250 mls/hr 05/14/24 09:00 05/16/24 08:24 Chloride IV 05/21/24 08:59 250 mls/hr QDAY NAGELICA Administration Protocol Piperacillin/Tazobactam/Dextrose 50 mls @ 12.5 mls/hr 05/15/24 06:00 05/16/24 05:00 Zosyn IV 05/22/24 05:59 12.5 mls/hr Q8HR ANGELICA Administration Protocol Propofol 1,000 mg in 100 mls @ 2.466 mls/hr 05/15/24 10:28 05/16/24 09:00 Diprivan Ivpb IV 06/14/24 10:27 10 mcg/kg/min .Q24H PRN 4.931 mls/hr PER PROTOCOL Titration Protocol 5 MCG/KG/MIN Fentanyl Citrate 2,500 mcg in 250 mls @ 2.5 mls/hr 05/15/24 10:28 05/16/24 09:00 Sublimaze Inj 2,500 Mcg/250 Ml Bag IV 05/20/24 10:27 75 mcg/hr .Q24H PRN 7.5 mls/hr PER PROTOCOL Titration Protocol 25 MCG/HR Norepinephrine Bitartrate 16 mg in 250 mls @ 3.853 mls/hr 05/15/24 10:29 05/16/24 09:00 Levophed In Ns 16mg/250ml IV 06/14/24 10:28 0.18 mcg/kg/min .Q24H PRN 13.87 mls/hr PER protocol Titration Protocol 0.05 MCG/KG/MIN Vasopressin/Sodium Chloride 20 unit in 100 mls @ 9 mls/hr 05/15/24 17:56 05/16/24 02:36 Vasostrict/Ns Ivpb IV 06/14/24 17:55 0.03 unit/min .Q11H7M PRN 9 mls/hr PER PROTOCOL Administration Protocol 0.03 UNIT/MIN Ondansetron HCl 4 mg 05/13/24 11:58 05/14/24 12:31 Ondansetron Inj 2 Mg/Ml Inj 2 Ml IV 06/12/24 11:57 4 mg Q6H PRN Administration NAUSEA OR VOMITING Protocol Pantoprazole Sodium 40 mg 05/15/24 21:00 05/16/24 08:06 Pantoprazole Inj 40 Mg Vial IVP 06/14/24 20:59 40 mg BID ANGELICA Administration Plan 69 y/o female with PMH of essential hypertension, gastric ulcers, hyperlipidemia, and DM2 was admitted to the hospital on 05/13/2024 due to acute encephalopathy likely secondary to sepsis secondary to CAP. 1. NSTEMI Type II 2. A-Fib with RVR, New onset -Patient has had elevated troponins from previous admissions with most recent on 11/17/2023 of 0.097 and prior to this on 12/28/2021 was 0.065 -On this admission intial troponins 0.09, uptrended to 0.239 and downtrended. -NSTEMI type II most likley in the setting of sepsis as patient has no chest pain. -EKG on this admission showed LVH with strain pattern and sinus tachycardia which is similiar to prior EKG on 11/22/2023 -CLARY ACS score of 115 points, 7% probability of -Patient in this afternoon developed A-Fib with RVR with ST depressions in anterolateral leads which are mostly rate related ST depressions -Echo ordered to rule out post operative MO and to evaluate for any new regional wall motion abnormalities and to reevaluate bradycardia contraction Plan: -No heparin drip at this time given the severe anemia and perforated gastric ulcer -Recommend to start Amio drip and Amio 200mg P.O. BID. -No anticoagulation given perforated ulcer -Recommend to place patient on high intensity statin and aspirin if GI and general surgery are okay with starting aspirin and there are no other contraindications -Recommend no further troponins as elevated troponins most likely secondary to sepsis from type II NSTEMI. -Patient will need further ischemic evaluation which can be done when she is more stable and can be pursued as outpatient 3. Acute decompensated heart failure (EF 60-65%) 4.Essential Hypertension -Patient has some SOB, trace edema and initial BNP was 309 -CXR did show some vascular congestion -Echo from 04/26/2024 had the following findings: Normal LV size and function. Mild LVH. Estimated EF 60-65% Normal RV size and function. Mild to moderate mitral valve stenosis, mean gradient 8mmHg. Moderate MAC. Mild AI, MR, TR. Mild AV sclerosis without stenosis Plan: -Hold diuresis in the setting of sepsis and soft BP, but if BP stabilizes will need diuresis -Strict CACHORRO's -Fluid restrictions -Low sodium diet -Daily weights -Recommend to potassium and magnessium above 4 and 2 respectively to avoid any arrhythmias. 5. Sepsis 2/2 perforated gastric ulcer 6. Community acquired pneumonia 7.Acute Encephalopathy 8. perforated gastric ulcer 9. Acute blood loss anemia 10. GI bleed -Continue current management as per primary care team 11.DM2 12. Hyperlipidemia -Continue current management as per primary care team Continue rest of management as per primary team. We are grateful to be able to participate in Mrs. Castellanos's care. Thank you for the consult Plan of care discussed with attending Hand Binder Stripper, Dr. Susan Spears MD PGY-1 There is a high probability of sudden, clinically significant or life threatening deterioration in the patient condition which required the highest level of physician preparedness to intervene urgently. I have personally spent 35 minutes of critical care time, exclusive of time spent on any procedures, in evaluation and management of this critically ill patient. Attending Provider Attestation/Addendum I have personally seen and examined the patient separately on the above date of service and discussed the plan of care with the resident. I reviewed the resident Dr. Merino consultation progress note and agree with the resident findings and plan in the note above and have also edited the documentation to reflect my findings and plan. Jalen Davis M.D. Interventional Cardiology
--- NOTE | 2024-05-16 10:30 | ESPR_ITS ---
Documentation for date of: 05/16/24 Subjective Subjective Interval history: Patient examined bedside this morning, she is still intubated and mechanically ventilated on pressor support and sedation Exam Vital Signs Temp Pulse Resp BP Pulse Ox O2 Del Method O2 Flow Rate 98.7 F 83 26 H 93/58 L 98 Mechanical Ventilation 1 05/16/24 07:00 05/16/24 10:00 05/16/24 10:00 05/16/24 10:00 05/16/24 10:00 05/16/24 04:01 05/15/24 08:00 FiO2 35 05/16/24 06:41 Narrative Exam General: intubated and MV HEENT: Dry mucous membranes, pale conjunctiva, EOMI, PERRLA, Cardiovascular: S1, S2, systolic murmur appreciated, radial pulses +2 bilat, RRR Pulmonary: CTAB bilat no cough, no wheezing GI: Present soft, distended, wound (midline wound with dressing c/d/i) and drain (BALAJI with serosanguinous output) Extremities: No presence of trace or pitting edema in lower extremities bilaterally, dorsalis pedis pulses +2 bilaterally Neuro: intubated and MV Objective Labs 05/16/24 06:03 05/16/24 12:19 Labs: Laboratory Results - last 24 hr 05/13/24 05/15/24 05/15/24 05:15 10:45 12:26 WBC RBC Hgb 7.2 L Hct 23.8 L MCV MCH MCHC RDW Std Deviation Plt Count Neut % (Auto) Lymph % (Auto) [place] % (Auto) Eos % (Auto) Baso % (Auto) Neut # (Auto) Lymph # (Auto) [place] # (Auto) Eos # (Auto) Baso # (Auto) Immature Gran # (Auto) Absolute Nucleated RBC Immature Gran % Nucleated RBC % Puncture Site ABG pH ABG pCO2 ABG pO2 ABG HCO3 ABG O2 Saturation ABG Base Excess FiO2 Sodium Potassium Chloride Carbon Dioxide Anion Gap BUN Creatinine Estim Creat Clear Calc eGFR BUN/Creatinine Ratio Glucose Calculated Osmolality Lactic Acid Calcium Corrected Calcium Phosphorus Magnesium Total Bilirubin AST ALT Alkaline Phosphatase Troponin I 0.494 H* Total Protein Albumin Globulin Albumin/Globulin Ratio Blood Type O Positive Antibody Screen NEGATIVE Crossmatch See Detail Blood Bank Wristband ID Yes 05/15/24 05/15/24 05/15/24 15:28 16:03 16:19 WBC RBC Hgb Hct MCV MCH MCHC RDW Std Deviation Plt Count Neut % (Auto) Lymph % (Auto) [place] % (Auto) Eos % (Auto) Baso % (Auto) Neut # (Auto) Lymph # (Auto) [place] # (Auto) Eos # (Auto) Baso # (Auto) Immature Gran # (Auto) Absolute Nucleated RBC Immature Gran % Nucleated RBC % Puncture Site Right Radial Right Radial ABG pH 7.05 L* D 7.17 L* D ABG pCO2 63 H D 45 D ABG pO2 38 L* D 84 D ABG HCO3 18 L 16 L ABG O2 Saturation 59 L 96 ABG Base Excess -12 L -11 L FiO2 50 40 Sodium Potassium Chloride Carbon Dioxide Anion Gap BUN Creatinine Estim Creat Clear Calc eGFR BUN/Creatinine Ratio Glucose Calculated Osmolality Lactic Acid 4.2 H* Calcium Corrected Calcium Phosphorus Magnesium Total Bilirubin AST ALT Alkaline Phosphatase Troponin I Total Protein Albumin Globulin Albumin/Globulin Ratio Blood Type Antibody Screen [place] Blood Bank Wristband ID 05/15/24 05/15/24 05/16/24 18:19 20:02 00:40 WBC RBC Hgb 7.0 L 6.7 L* Hct 22.6 L 21.3 L* MCV MCH MCHC RDW Std Deviation Plt Count Neut % (Auto) Lymph % (Auto) [place] % (Auto) Eos % (Auto) Baso % (Auto) Neut # (Auto) Lymph # (Auto) [place] # (Auto) Eos # (Auto) Baso # (Auto) Immature Gran # (Auto) Absolute Nucleated RBC Immature Gran % Nucleated RBC % Puncture Site ABG pH ABG pCO2 ABG pO2 ABG HCO3 ABG O2 Saturation ABG Base Excess FiO2 Sodium Potassium Chloride Carbon Dioxide Anion Gap BUN Creatinine Estim Creat Clear Calc eGFR BUN/Creatinine Ratio Glucose Calculated Osmolality Lactic Acid 3.4 H 1.9 Calcium Corrected Calcium Phosphorus Magnesium Total Bilirubin AST ALT Alkaline Phosphatase Troponin I Total Protein Albumin Globulin Albumin/Globulin Ratio Blood Type Antibody Screen Crossmatch Blood Bank Wristband ID 05/16/24 05/16/24 05/16/24 01:21 04:38 06:03 WBC 34.7 H RBC 2.87 L Hgb 8.0 L Hct 24.9 L MCV 87 MCH 27.9 MCHC 32.1 RDW Std Deviation 47.8 H Plt Count 252 Neut % (Auto) 91 H Lymph % (Auto) 4 L [place] % (Auto) 3 Eos % (Auto) 1 Baso % (Auto) 0 Neut # (Auto) 31.5 H Lymph # (Auto) 1.3 [place] # (Auto) 1.0 H Eos # (Auto) 0.3 Baso # (Auto) 0.1 Immature Gran # (Auto) 0.63 H Absolute Nucleated RBC 0.89 H Immature Gran % 2 H Nucleated RBC % 3 H Puncture Site Left Radial ABG pH 7.28 L D ABG pCO2 34 D ABG pO2 96 ABG HCO3 16 L ABG O2 Saturation 98 ABG Base Excess -10 L FiO2 35 Sodium 142 Potassium 4.7 Chloride 115 H Carbon Dioxide 16.3 L Anion Gap 11 BUN 55 H Creatinine 2.8 H Estim Creat Clear Calc 17.2 L eGFR 18 L BUN/Creatinine Ratio 20 Glucose 164 H Calculated Osmolality 302 H Lactic Acid 1.6 Calcium 8.8 Corrected Calcium 9.7 Phosphorus 5.2 H Magnesium 1.9 Total Bilirubin 1.2 AST 170 H ALT 121 H Alkaline Phosphatase 61 D Troponin I Total Protein 4.9 L Albumin 2.9 L Globulin 2.0 L Albumin/Globulin Ratio 1.5 Blood Type O Positive Antibody Screen NEGATIVE Crossmatch See Detail Blood Bank Wristband ID Yes ABG Interpretation ABG results: 05/13/24 05/15/24 05/15/24 08:29 15:28 16:03 ABG pH 7.39 7.05 L* D 7.17 L* D ABG pCO2 31 L 63 H D 45 D ABG pO2 78 L 38 L* D 84 D ABG HCO3 19 L 18 L 16 L ABG O2 Saturation 96 59 L 96 ABG Base Excess -5 L -12 L -11 L 05/16/24 04:38 ABG pH 7.28 L D ABG pCO2 34 D ABG pO2 96 ABG HCO3 16 L ABG O2 Saturation 98 ABG Base Excess -10 L Quality Measures Quality Measures VTE prophylaxis Advance care planning discussed with:: patient Assessment & Plan Assessment Current Active Medications: Generic Name Dose Route Start Last Admin Trade Name Freq PRN Reason Stop Dose Admin Hydromorphone HCl 0.5 mg 05/14/24 15:35 05/15/24 05:10 Hydromorphone Inj 2 Mg/Ml Vial IVP 05/19/24 15:34 0.5 mg Q6HR PRN Administration PAIN SCALE 7-10 (Severe Azithromycin 500 mg/ Sodium 250 mls @ 250 mls/hr 05/14/24 09:00 05/16/24 08:24 Chloride IV 05/21/24 08:59 250 mls/hr QDAY ANGELICA Administration Protocol Piperacillin/Tazobactam/Dextrose 50 mls @ 12.5 mls/hr 05/15/24 06:00 05/16/24 05:00 Zosyn IV 05/22/24 05:59 12.5 mls/hr Q8HR ANGELICA Administration Protocol Propofol 1,000 mg in 100 mls @ 2.466 mls/hr 05/15/24 10:28 05/16/24 09:00 Diprivan Ivpb IV 06/14/24 10:27 10 mcg/kg/min .Q24H PRN 4.931 mls/hr PER PROTOCOL Titration Protocol 5 MCG/KG/MIN Fentanyl Citrate 2,500 mcg in 250 mls @ 2.5 mls/hr 05/15/24 10:28 05/16/24 09:00 Sublimaze Inj 2,500 Mcg/250 Ml Bag IV 05/20/24 10:27 75 mcg/hr .Q24H PRN 7.5 mls/hr PER PROTOCOL Titration Protocol 25 MCG/HR Norepinephrine Bitartrate 16 mg in 250 mls @ 3.853 mls/hr 05/15/24 10:29 05/16/24 09:00 Levophed In Ns 16mg/250ml IV 06/14/24 10:28 0.18 mcg/kg/min .Q24H PRN 13.87 mls/hr PER protocol Titration Protocol 0.05 MCG/KG/MIN Vasopressin/Sodium Chloride 20 unit in 100 mls @ 9 mls/hr 05/15/24 17:56 05/16/24 02:36 Vasostrict/Ns Ivpb IV 06/14/24 17:55 0.03 unit/min .Q11H7M PRN 9 mls/hr PER PROTOCOL Administration Protocol 0.03 UNIT/MIN Ondansetron HCl 4 mg 05/13/24 11:58 05/14/24 12:31 Ondansetron Inj 2 Mg/Ml Inj 2 Ml IV 06/12/24 11:57 4 mg Q6H PRN Administration NAUSEA OR VOMITING Protocol Pantoprazole Sodium 40 mg 05/15/24 21:00 05/16/24 08:06 Pantoprazole Inj 40 Mg Vial IVP 06/14/24 20:59 40 mg BID ANGELICA Administration Pharmacy Consult 1 each 05/16/24 10:27 Pharmacy Renal Dose Adjustment 1 Ea XX 06/15/24 10:26 PRN PRN CONSULT Plan 69-year-old female with past medical history of CKD stage III, prediabetes, hypertension who was found unconscious in her room. As well as diarrhea and shortness of breath. Admitted for sepsis secondary to pneumonia and acute metabolic encephalopathy #Acute metabolic encephalopathy- currently Intubated and MV #Generalized weakness -Patient was found to be nonresponsive at home -Intitial Head CT was negative -Patient failed bedside swallow eval -Brain MRI with MRA shows significant stenoses in posterior cerebral artery -Encephalopathy most likely related to acute critical illness, we will re- evaluate once off sedation Patient's care discussed with attending physician, Dr Talisha Taylor MD PGY3 Attending Provider Attestation/Addendum I independently reviewed the patient chart and I agree with resident's findings, assessment and plan of care. Will continue with the current management as per primary team, will consider doing EEG if there is no improvement in mental status.
[2024-05-16 10:48] LABS: Band Neutrophils (Manual) 32 % (0-6); Lymphocytes (Manual) 2 % (20-44); Metamyelocytes (Manual) 1 % (0-0); Monocytes (Manual) 1 % (2-9); Neutrophils (Manual) 64 % (50-70)
[2024-05-16 10:59] LABS: Path Review Blood Smear Sent to Pathologist
--- NOTE | 2024-05-16 11:16 | EKG_ITS ---
[facility] Test Date: 2024-05-16 Pat Name: SALEEM SIMON Department: Room: S259A Gender: Female Head Of Advertising: VINCENZO : 1955 Requested By: Karol Rivera Order Number: [id number] Reading MD: Karol Rivera Measurements Intervals [place] Rate: 145 P: [place]: QRS: -34 QRSD: 90 T: 129 QT: 282 QTc: 438 Interpretive Statements ATRIAL FIBRILLATION WITH RAPID VENTRICULAR RESPONSE MARKED LEFT AXIS DEVIATION PATTERN CONSISTENT WITH PULMONARY DISEASE ST DEVIATION AND MODERATE T-WAVE ABNORMALITY, CONSIDER LATERAL ISCHEMIA Compared to ECG 05/15/2024 05:01:27 Possible ischemia now present Sinus tachycardia no longer present T-wave abnormality still present /[id number]/[id number]
[2024-05-16] MEDS: fentaNYL CIT INJ 50 mCg/ML AMP 2ML 25 MCG IVP (11:18)
--- NOTE | 2024-05-16 11:27 | ECHO_ITS ---
Transthoracic Echo Report Ht (in): 58 Wt (lb): 177 Exam Location: Echo Lab Status: Inpatient Electrical Continuity Inspector: Debby Metzger Indications: Procedure Performed: BP: 80 / 94 HR: 113 Technical Quality: Technically difficult study MEASUREMENTS (Male / Female) Normal Values 2D ECHO LV Diastolic Diameter PLAX 4.0 cm 4.2 - 5.9 / 3.9 - 5.3 cm LV Systolic Diameter PLAX 2.9 cm IVS Diastolic Thickness 1.5 cm 0.6 - 1.0 / 0.6 - 0.9 cm LVPW Diastolic Thickness 1.3 cm 0.6 - 1.0 / 0.6 - 0.9 cm LV Relative Wall Thickness 0.7 LVOT Diameter 1.7 cm Ascending Aorta Diameter 3.4 cm M-MODE Aortic Root Diameter MM 2.2 cm LA Systolic Diameter MM 3.3 cm LA Ao Ratio MM 1.5 AV Cusp Separation MM 1.6 cm DOPPLER AV Peak Velocity 154.0 cm/s AV Peak Gradient 9.5 mmHg AV Mean Gradient 5.0 mmHg AV Velocity Time Integral 33.8 cm LVOT Peak Velocity 140.0 cm/s LVOT Peak Gradient 7.8 mmHg LVOT Velocity Time Integral 25.2 cm LVOT Cardiac Index 3480.8 cm?/min?m? AV Area Cont Eq vti 1.7 cm? AV Area Cont Eq pk 2.1 cm? MV Peak Velocity 142.0 cm/s MV Peak Gradient 8.1 mmHg MV Mean Velocity 92.6 cm/s MV Mean Gradient 4.0 mmHg MV Area PHT 2.0 cm? Mitral E Point Velocity 103.0 cm/s Mitral A Point Velocity 130.0 cm/s Mitral E to A Ratio 0.8 LV E' Lateral Velocity 3.5 cm/s Mitral E to LV E' Lateral Ratio 29.6 LV E' Septal Velocity 4.9 cm/s Mitral E to LV E' Septal Ratio 21.0 TR Peak Velocity 237.0 cm/s TR Peak Gradient 22.5 mmHg PV Peak Velocity 100.0 cm/s PV Peak Gradient 4.0 mmHg FINDINGS Left Ventricle Normal left ventricular size, wall thickness, systolic function with no obvious regional wall motion abnormalities. Normal left ventricular diastolic filling pattern for age. The ejection fraction is v isually estimated at 55-60%. Right Ventricle The right ventricle not well visualized. Left Atrium The left atrium is normal by two-dimensional, color flow and Doppler imaging with no structural abnormalities, no thrombus formation present. Right Atrium The right atrium is normal by two-dimensional imaging, color flow and Doppler imaging with no struct ural abnormalities, no thrombus formation present. Atrial Septum The interatrial septum appears normal with no evidence of a shunt. Aorta The aorta is normal by two-dimensional, color flow and Doppler interrogation. Mitral Valve The mitral valve is normal by two-dimensional, color flow and Doppler interrogation. There is no sig nificant mitral valve regurgitation, stenosis or prolapse. Aortic Valve The aortic valve is trileaflet and normal by two-dimensional, color flow and Doppler interrogation. There is no significant aortic valve regurgitation. Tricuspid Valve The tricuspid valve is normal by two-dimensional, color flow and Doppler interrogation. There is no significant tricuspid valve regurgitation. Pulmonic Valve The pulmonic valve is not well visualized. There is no significant pulmonic valve regurgitation. Vessels The pulmonary artery appears normal. The inferior vena cava pulmonary and hepatic veins appear rehana l. Pericardium The pericardium is normal by two-dimensional imaging. There is no significant pericardial effusion. CONCLUSIONS Indication: A Fib Normal LV size and function with an estimated EF of 55 to 60%. Mild LVH. Stage I diastolic dysfunc tion. RV not visualized appears to have normal size and function. 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 Mild AV Sclerosis without stenosis. Jalen Davis (Electronically Signed) Final Date: 16 May 2024 21:09
[2024-05-16] MEDS: AMIODARONE 150 MG IVPB 150 MG/100 ML BAG 600 MG IV (11:35)
[2024-05-16] MEDS: AMIODARONE 360 MG IVPB 360 MG/200 ML BAG 33.333 MG IV (11:44)
--- NOTE | 2024-05-16 12:04 | ESPR_ITS ---
<Statement entered by Sinan Robles MD - 05/17/24 08:46> TOTAL CC TIME: 45 MIN I saw and evaluated the patient. I reviewed the resident?s note and agree with findings and plan as documented in the resident?s note. Upon my evaluation, this patient had a high probability of imminent or life- threatening deterioration due to septic shock which required my direct attention, intervention, and personal management. This time is exclusive of time spent on procedures, which are documented separately if performed. Septic shock due to gastric ulcer perforation requiring vasopressin and Levophed. Fluid status is appropriately resuscitated but patient remains vasodilated. A-fib RVR improved with amiodarone Echocardiogram ordered Wean sedation and trial pressure support ventilation as tolerated Documentation for date of: 05/16/24 Subjective Subjective Interval history: 05/16: Late in the evening, pt's MAP was dropping below 60 and required vasopressin in addition to levophed. Patient had a trial of pressure support which she did not tolerate and was overworking the vent therefore changed the setting back to assist-control. Patient sedation medication today, she became agitated and restless therefore increased the fentanyl to RASS goal of -3 and DC'd the propofol. Later in the afternoon patient had a new onset of A-fib and was started on amiodarone drip, ordered EKG, and echo. Exam Vital Signs Temp Pulse Resp BP Pulse Ox O2 Del Method O2 Flow Rate 98.7 F 125 H 26 H 116/56 L 95 Mechanical Ventilation 1 05/16/24 07:00 05/16/24 11:44 05/16/24 10:00 05/16/24 11:44 05/16/24 10:55 05/16/24 04:01 05/15/24 08:00 FiO2 35 05/16/24 10:55 Narrative Exam GENERAL: sedated and on michanical ventilation NEURO: unable to obtain due to patient being intubated and on mechanical ventilation HEENT: Atraumatic, Normocephalic. mucous membranes moist. HEART: Normal Heart Sounds LUNGS: Clear to auscultation with no wheezing or crackles. ABDOMEN: surgical scar is clean with BALAJI drain in place with minimal output SKIN: No Rash or ecchymoses EXTREMITIES: non pitting edema in upper and lower extremities, pedal pulses palpated Objective Labs 05/16/24 06:03 05/16/24 12:19 Labs: Laboratory Results - last 24 hr 05/13/24 05/15/24 05/15/24 05:15 12:26 15:28 WBC RBC Hgb 7.2 L Hct 23.8 L MCV MCH MCHC RDW Std Deviation Plt Count Neut % (Auto) Lymph % (Auto) Barber % (Auto) Eos % (Auto) Baso % (Auto) Neut # (Auto) Lymph # (Auto) Barber # (Auto) Eos # (Auto) Baso # (Auto) Immature Gran # (Auto) Absolute Nucleated RBC Immature Gran % Neutrophils % (Manual) Monocytes % (Manual) Metamyelocytes % Nucleated RBC % Band Neutrophils Lymphocytes (Manual) Differential Comment Smear Path Review Puncture Site Right Radial ABG pH 7.05 L* D ABG pCO2 63 H D ABG pO2 38 L* D ABG HCO3 18 L ABG O2 Saturation 59 L ABG Base Excess -12 L FiO2 50 Sodium Potassium Chloride Carbon Dioxide Anion Gap BUN Creatinine Estim Creat Clear Calc eGFR BUN/Creatinine Ratio Glucose Calculated Osmolality Lactic Acid Calcium Corrected Calcium Phosphorus Magnesium Total Bilirubin AST ALT Alkaline Phosphatase Total Protein Albumin Globulin Albumin/Globulin Ratio Blood Type O Positive Antibody Screen NEGATIVE Crossmatch See Detail Blood Bank Wristband ID Yes 05/15/24 05/15/24 05/15/24 16:03 16:19 18:19 WBC RBC Hgb 7.0 L Hct 22.6 L MCV MCH MCHC RDW Std Deviation Plt Count Neut % (Auto) Lymph % (Auto) Barber % (Auto) Eos % (Auto) Baso % (Auto) Neut # (Auto) Lymph # (Auto) Barber # (Auto) Eos # (Auto) Baso # (Auto) Immature Gran # (Auto) Absolute Nucleated RBC Immature Gran % Neutrophils % (Manual) Monocytes % (Manual) Metamyelocytes % Nucleated RBC % Band Neutrophils Lymphocytes (Manual) Differential Comment Smear Path Review Puncture Site Right Radial ABG pH 7.17 L* D ABG pCO2 45 D ABG pO2 84 D ABG HCO3 16 L ABG O2 Saturation 96 ABG Base Excess -11 L FiO2 40 Sodium Potassium Chloride Carbon Dioxide Anion Gap BUN Creatinine Estim Creat Clear Calc eGFR BUN/Creatinine Ratio Glucose Calculated Osmolality Lactic Acid 4.2 H* Calcium Corrected Calcium Phosphorus Magnesium Total Bilirubin AST ALT Alkaline Phosphatase Total Protein Albumin Globulin Albumin/Globulin Ratio Blood Type Antibody Screen Crossmatch Blood Bank Wristband ID 05/15/24 05/16/24 05/16/24 20:02 00:40 01:21 WBC RBC Hgb 6.7 L* Hct 21.3 L* MCV MCH MCHC RDW Std Deviation Plt Count Neut % (Auto) Lymph % (Auto) Barber % (Auto) Eos % (Auto) Baso % (Auto) Neut # (Auto) Lymph # (Auto) Barber # (Auto) Eos # (Auto) Baso # (Auto) Immature Gran # (Auto) Absolute Nucleated RBC Immature Gran % Neutrophils % (Manual) Monocytes % (Manual) Metamyelocytes % Nucleated RBC % Band Neutrophils Lymphocytes (Manual) Differential Comment Smear Path Review Puncture Site ABG pH ABG pCO2 ABG pO2 ABG HCO3 ABG O2 Saturation ABG Base Excess FiO2 Sodium Potassium Chloride Carbon Dioxide Anion Gap BUN Creatinine Estim Creat Clear Calc eGFR BUN/Creatinine Ratio Glucose Calculated Osmolality Lactic Acid 3.4 H 1.9 Calcium Corrected Calcium Phosphorus Magnesium Total Bilirubin AST ALT Alkaline Phosphatase Total Protein Albumin Globulin Albumin/Globulin Ratio Blood Type O Positive Antibody Screen NEGATIVE Crossmatch See Detail Blood Bank Wristband ID Yes 05/16/24 05/16/24 04:38 06:03 WBC 34.7 H RBC 2.87 L Hgb 8.0 L Hct 24.9 L MCV 87 MCH 27.9 MCHC 32.1 RDW Std Deviation 47.8 H Plt Count 252 Neut % (Auto) 91 H Lymph % (Auto) 4 L Barber % (Auto) 3 Eos % (Auto) 1 Baso % (Auto) 0 Neut # (Auto) 31.5 H Lymph # (Auto) 1.3 Barber # (Auto) 1.0 H Eos # (Auto) 0.3 Baso # (Auto) 0.1 Immature Gran # (Auto) 0.63 H Absolute Nucleated RBC 0.89 H Immature Gran % 2 H Neutrophils % (Manual) 64 Monocytes % (Manual) 1 L Metamyelocytes % 1 H Nucleated RBC % 3 H Band Neutrophils 32 H Lymphocytes (Manual) 2 L Differential Comment Smear Path Review Sent to Pathologist Puncture Site Left Radial ABG pH 7.28 L D ABG pCO2 34 D ABG pO2 96 ABG HCO3 16 L ABG O2 Saturation 98 ABG Base Excess -10 L FiO2 35 Sodium 142 Potassium 4.7 Chloride 115 H Carbon Dioxide 16.3 L Anion Gap 11 BUN 55 H Creatinine 2.8 H Estim Creat Clear Calc 17.2 L eGFR 18 L BUN/Creatinine Ratio 20 Glucose 164 H Calculated Osmolality 302 H Lactic Acid 1.6 Calcium 8.8 Corrected Calcium 9.7 Phosphorus 5.2 H Magnesium 1.9 Total Bilirubin 1.2 AST 170 H ALT 121 H Alkaline Phosphatase 61 D Total Protein 4.9 L Albumin 2.9 L Globulin 2.0 L Albumin/Globulin Ratio 1.5 Blood Type Antibody Screen Crossmatch Blood Bank Wristband ID ABG Interpretation ABG results: 05/13/24 05/15/24 05/15/24 08:29 15:28 16:03 ABG pH 7.39 7.05 L* D 7.17 L* D ABG pCO2 31 L 63 H D 45 D ABG pO2 78 L 38 L* D 84 D ABG HCO3 19 L 18 L 16 L ABG O2 Saturation 96 59 L 96 ABG Base Excess -5 L -12 L -11 L 05/16/24 04:38 ABG pH 7.28 L D ABG pCO2 34 D ABG pO2 96 ABG HCO3 16 L ABG O2 Saturation 98 ABG Base Excess -10 L Quality Measures Quality Measures VTE prophylaxis Advance care planning discussed with:: spouse and child Assessment & Plan Assessment Current Active Medications: Generic Name Dose Route Start Last Admin Trade Name Freq PRN Reason Stop Dose Admin Amiodarone HCl 200 mg 05/16/24 12:00 Amiodarone Hcl 200 Mg Tablet PO 06/15/24 11:59 BID ANGELICA Hydromorphone HCl 0.5 mg 05/14/24 15:35 05/15/24 05:10 Hydromorphone Inj 2 Mg/Ml Vial IVP 05/19/24 15:34 0.5 mg Q6HR PRN Administration PAIN SCALE 7-10 (Severe Azithromycin 500 mg/ Sodium 250 mls @ 250 mls/hr 05/14/24 09:00 05/16/24 08:24 Chloride IV 05/21/24 08:59 250 mls/hr QDAY ANGELICA Administration Protocol Piperacillin/Tazobactam/Dextrose 50 mls @ 12.5 mls/hr 05/15/24 06:00 05/16/24 05:00 Zosyn IV 05/22/24 05:59 12.5 mls/hr Q8HR ANGELICA Administration Protocol Propofol 1,000 mg in 100 mls @ 2.466 mls/hr 05/15/24 10:28 05/16/24 09:00 Diprivan Ivpb IV 06/14/24 10:27 10 mcg/kg/min .Q24H PRN 4.931 mls/hr PER PROTOCOL Titration Protocol 5 MCG/KG/MIN Fentanyl Citrate 2,500 mcg in 250 mls @ 2.5 mls/hr 05/15/24 10:28 05/16/24 09:00 Sublimaze Inj 2,500 Mcg/250 Ml Bag IV 05/20/24 10:27 75 mcg/hr .Q24H PRN 7.5 mls/hr PER PROTOCOL Titration Protocol 25 MCG/HR Norepinephrine Bitartrate 16 mg in 250 mls @ 3.853 mls/hr 05/15/24 10:29 05/16/24 09:00 Levophed In Ns 16mg/250ml IV 06/14/24 10:28 0.18 mcg/kg/min .Q24H PRN 13.87 mls/hr PER protocol Titration Protocol 0.05 MCG/KG/MIN Vasopressin/Sodium Chloride 20 unit in 100 mls @ 9 mls/hr 05/15/24 17:56 05/16/24 02:36 Vasostrict/Ns Ivpb IV 06/14/24 17:55 0.03 unit/min .Q11H7M PRN 9 mls/hr PER PROTOCOL Administration Protocol 0.03 UNIT/MIN Magnesium Sulfate 2 gm in 50 mls @ 25 mls/hr 05/16/24 11:26 Magnesium Sulfate Ivpb IV 05/16/24 13:25 X1 ONE Amiodarone HCl/Dextrose 360 mg in 200 mls @ 33.333 mls/hr 05/16/24 11:27 05/16/24 11:44 Nexterone Ivpb IV 05/16/24 17:26 33.333 mls/hr .Q6H ONE Administration Amiodarone HCl/Dextrose 360 mg in 200 mls @ 16.667 mls/hr 05/16/24 17:26 Nexterone Ivpb IV 05/17/24 17:25 .Q12H ANGELICA Ondansetron HCl 4 mg 05/13/24 11:58 05/14/24 12:31 Ondansetron Inj 2 Mg/Ml Inj 2 Ml IV 06/12/24 11:57 4 mg Q6H PRN Administration NAUSEA OR VOMITING Protocol Pantoprazole Sodium 40 mg 05/15/24 21:00 05/16/24 08:06 Pantoprazole Inj 40 Mg Vial IVP 06/14/24 20:59 40 mg BID ANGELICA Administration Pharmacy Consult 1 each 05/16/24 10:27 Pharmacy Renal Dose Adjustment 1 Ea XX 06/15/24 10:26 PRN PRN CONSULT Plan Ms. Castellanos is a 69-year-old female with past medical history significant for hypertension, diabetes, CKD stage III, and history of gastric ulcers who presented to the ED on 05/13/2024 after she was found unconscious on the floor. Per chart reviewing prior to this unconsciousness patient was having abdominal pain and generalized weakness with diarrhea and shortness of breath for 2 days. Patient was admitted to the hospital for treatment and management of sepsis secondary to pneumonia. Patient was given 1 L normal saline and started on ceftriaxone and azithromycin. patient underwent ex lap surgery for perforated gastric ulcer. Patient remained intubated postop and is upgraded to the ICU. Neuro: #Acute Encephaopathy - Likely multifactorial 2/2 to infectious plus metabolic - Now on sedation with fentanyl - Brain MRI with MRA shows significant stenosis in posterior cerebral artery - Plan: sedation vacation in am and non pharm measures to prevent delirium Cardiovasc: #shock DDx: more likely Septic shock vs. hemorrhagic shock likely contributed by sedation -S/P aggressive fluid resuscitation, continue to monitor and will give additional fluids as needed -Plan: start levophed (05/15) and vasopression (05/15)to maintain MAP >65, wean as tolerated. -Status post 1 unit PRBC given 05/15/2024 for hemoglobin below 7 -Continue iv antibiotics and additional fluids as needed and treat underlying cause # New onset A-fib -Likely secondary to shock in the setting of abdominal surgery -EKG findings consistent with A-fib -Echo ordered-pending -Amiodarone drip started, additional p.o. amiodarone ordered -Cardiology consulted #Acute decompensated HF -Pt presented with SOB and 1+ edema in LE -CXR showed some vascular congestion and Echo from 04/16 show EF 60-65% and mild to moderate mitral valve stenosis and moderate MAC -elevated BNP from 304 --> 1110 -holding guideline directed medical therapy due to shock, will resume when able #Elevated Troponin most likely secondary to demand ischemia in setting of shock Plan: Troponin increased to 0.494 and continue to monitor until down-trend. #Hyperlipidemia -Plan: Hold home atorvastatin as patient is npo. Will reinstate as tolerated #Primary Hypertension -Plan: Hole home norvasc in setting of shock Pulm: #Acute Hypoxic Respiratory failure - 2/2 to pneumoperitoneum +/- CHF +/- sedation - CXR: [id number] heart failure -ABG: pH 7.28, CO2 34, O2 96, HCO3 16 - Plan: intubated 05/15/24 on volume control - Spontaneous breathing trail tomorrow, spontaneous breathing trial failed today as patient became agitated when sedation's were lowered Renal: #Acute tubular necrosis - 2/2 secondary to prerenal azootemia in setting of septic - Baseline Cr appears to be 0.7 --> 2.8 - Renally dose medications and avoid nephrotoxic agents - Plan: Cr increased to 2.8 and GFR 18 s/p aggressive fluid resuscitation. Guajardo catheter in place and monitor urine output closely. -repeat labs in am -Consulted nephrology for possible dialysis tomorrow #Metabolic acidosis? #Lactic Acidosis - likely 2/2 to Type A lactic acidosis from shock. -Continue pressors and fluids, f/u repeat lactic acid GI: #Pneumoperitoneum #Peritonitis secondary to perforated gastric ulcer Patient found to have tender abdomen, rigidity in the epigastrium, chest x-ray showed elevation of hemidiaphragm, CT abdomen showed pneumoperitoneum, concern for perforated viscus, general surgeon Dr. Silva was consulted for emergency laparotomy and possible repair of perforated gastric ulcer. ?Patient was given IV fluid boluses, IV albumin 1 PRBC was ordered ?Antibiotic coverage was broadened to Zosyn to cover for anaerobic and enteric pathogens. - Plan: s/p Exploratory laparotomy & repair of perforated gastric ulcer - 05/15. -Surgery following and on pain management with fentanyl gtt. #Acute Upper GI bleed - most likely secondary to perforated gastric ulcer - Plan: Continue iv Protonix. -GI consulted with plans for upper endoscopy -Hold chemical anticoagulation #GI ppx - pantoprazole #Diet - NPO Endo: #Diabetes Mellitus type II - A1C 6.7 % - Hold home glipizide and januvia - Plan: Continue to monitor blood sugars, patient currently NPO and will hold starting sliding scale as blood sugars are well controlled Heme/Onc: #Acute anemia, ?Concern for GI bleed, acute drop in hemoglobin, ?In the setting of gastric perforation, 1 PRBC ordered on 05/15 - Plan: Continue to monitor H & H. transfuse for hemoglobin less than 7. Infxs: #Septic Shock - most likely secondary to GI source from perforated gastric ulcer - S/P sepsis fluid resuscitation - Evidence of end organ damage with encephalopathy and ADILSON - 05/13/24 blood cultures preliminarly show no growth at 48 hours - Plan: Severe leukocytosis present. Continue IV Zosyn, follow-up final culture results and repeat hematology panel in am (Skin:) #Pressure Ulcer Prevention Disposition: ICU for AHRF & septic shock requiring mechanical ventilation and pressor support DVT Prophylaxis: Hold chemical anticoagulation in setting of possible GI bleed GI Prophylaxis: Pantoprozol-40 IV Diet: NPO Lines: central line R. IJ Code status: Full Assessment and plan discussed with attending physician Dr. Travis Rivera (PGY-1)- Internal medicine resident
[2024-05-16] MEDS: Magnesium Sulfate 2 GM Ivpb 2 GM/50 ML BAG IV (12:17)
--- NOTE | 2024-05-16 12:38 | PC.SS ---
DIAL BRUSHER conducted bedside contact with the patient. Present at patient?s bedside was Roberto amato Cha . Patient admitted to ICU and currently intubated. Patient resides at home with sonRoberto Cha. Patient utilizes a walker to assist with ambulation. Patient does not utilize home oxygen. Patient requires assistance with completion of ADL?s. Patient is aligned with [facility]. Patient?s medical surrogate decision maker is Roberto amato Cha. Patient?s PCP is Dr. Dowd, [facility]. Dr. Cardenas is the patient?s director telehealth. Patient does not participate with dialysis. Patient?s slide maker is Chris Pickett. Patient does not participated with dialysis. Patient is pre-diabetic. Patient utilizes [facility] for medication services. Patient?s family requesting following forms of DME upon discharge home: wheelchair and bedside commode. If patient requires home oxygen referral will be submitted. No preferred vendor identified. If SNF is recommended at the time of discharge, no preference identified. Patient does possess transport coverage via [employer]. No further intervention required at this time, social insurance analyst will be available to address any further concerns. Next of Kin: Roberto Castellanos D/C Plan: Pending
[2024-05-16] MEDS: AMIODARONE HCL 200 MG TABLET PO ×2 (12:39→21:23)
[2024-05-16 12:54] LABS: Albumin, Serum 2.8 gm/dL (3.4-4.8); Anion Gap 12 (7-16); BUN/Creatinine Ratio 20 Ratio (12-20); Blood Urea Nitrogen 60 mg/dL (9-23); Calcium 8.6 mg/dL (8.3-10.6); Calcium (Corrected) 9.6 mg/dL (8.5-10.1); Carbon Dioxide 17.1 mMol/L (20.0-31.0); Chloride 115 mMol/L (98-107); Estimated Creatinine Clearance 16.1 mL/min (>60); Glucose 182 mg/dL (74-106); Osmolality,Calculated 308 (275-295); Phosphorous 5.3 mg/dL (2.4-5.1); Potassium 4.6 mMol/L (3.4-5.1); Sodium 144 mMol/L (136-145); eGFR 16 See Note
--- NOTE | 2024-05-16 13:05 | ESCONSULT_ITS ---
HPI Data of Consult Patient: new to practice Consult date: 05/16/24 Requesting Physician: Michel See MD Admitting Provider: Michel See MD Attending Provider: Michel See MD Primary Care Provider: Gagan Catherine Consult Narrative Reason for consult: ADILSON History of present illness: Mr. Castellanos is a [id number] with past medical history of prediabetes, CKD, hypertension, history of ulcers who was admitted to [facility] for sepsis secondary to pneumonia and acute metabolic encephalopathy. Patient was BIBA to the ED after being found unconscious on the floor. According to the son on admission patient's daughter found the patient at 3 AM passed out on the floor and unresponsive. Family is unaware along the patient was on the floor. 2 days ago patient started to develop abdominal pain and weakness all over her body associated with some diarrhea and shortness of breath. Patient's abdominal pain comes and goes from right side to left side of the abdomen. ED course patient was hypertensive tachycardic tachypneic and was saturating 92% on 5 L nasal cannula ED labs significant for WBCs 24.3, bicarb 19.6, glucose 259, lactic acid 2.2, BNP 304, troponin 0.09. 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, colonic diverticulosis, Cervical spine CT showed 3 mm radiolucency in C3 vertebral body Chest CTA showed mild aneurysmal dilatation ascending thoracic aorta AP dimension 4.3 cm and pulmonary artery hypertension with moderate vascular congestion Face CT shows no acute facial fracture, Lumbar spine CT shows no acute lumbar fracture severe acquired spinal stenosis L4-L5, Thoracic spine CT showed no acute fracture Brain MRI with MRA showed equally focal restricted diffusion brainstem medullary level significant stenosis of right P1 P2 segment posterior cerebral artery Postadmission, cardiology was consulted on admission because of elevated troponins, suspicion of NSTEMI type II, patient has acute decompensated heart failure per cardiology evaluation, neurology consulted because of patient's acute metabolic encephalopathy and GI was consulted for suspicion of GI bleed. Eventually on 05/15 rapid response was called for worsening chest pain, patient's map was consistently in 70s, was tachycardic tachypneic. CT angiogram showed pneumoperitoneum multiple air droplets adjacent to and within wall of stomach with suspicion of gastric perforation. General surgery was consulted for emergency surgery and patient had exploratory laparotomy with repair of perforated gastric ulcer with an omental patch. Patient was upgraded to ICU postop for further management patient currently on Levophed and vasopressor due to distributive shock, currently sedated and intubated on mechanical ventilation. Nephrology consulted due to concern of ADILSON. 05/16/24: Patient seen at bedside, patient's daughter present at bedside labs reviewed patient's creatinine 3.0, GFR 16 and BUN 60. Patient's baseline GFR more than 60, does report history of chronic kidney disease. Patient's urine output yesterday 820 mL, there is suspicion of acute kidney injury due to patient's underlying distributive shock versus hypovolemic shock, will continue to monitor patient's urine output and renal panel in a.m., plan of care discussed with patient's family at bedside they want to proceed with dialysis if needed. Will continue to monitor patient. cc:: cc: Michel See MD Review of Systems Review of Systems ROS Unobtainable: unobtainable due to mental status and unobtainable due to medical condition Past Medical History Past Medical History NEUROLOGIC: Negative Seizures CARDIAC: Positive Cardiac Disorders, Hypercholesterolemia and Hypertension; Negative Congestive Heart Failure RESPIRATORY: Negative Respiratory Disorders, Chronic Obstructive Pulmonary Disease (COPD) or Asthma GASTROINTESTINAL: Positive Ulcer GENITOURINARY: Positive Renal Disease ENDOCRINE: Positive Diabetes Mellitus Type 2; Negative Diabetes Mellitus Type 1 HEMATOLOGIC: Negative Sickle Cell Disease OTHER HISTORY: Negative Blood Transfusions, Blood Transfusion Reaction, Anesthesia Reactions or Cancer Surgical History OTHER SURGICAL HX: As in the history of present illness Social History SMOKING STATUS: Never smoker SUBSTANCE USE: does not use Past Medical History Comments PMH COMMENT: PMH: essential hypertension, gastric ulcers, hyperlipidemia, and DM2 Social: Denies smoking, alcohol, or drugs Exam Vital Signs Temp Pulse Resp BP Pulse Ox O2 Del Method O2 Flow Rate 98.2 F 109 H 26 H 104/59 L 96 Mechanical Ventilation 1 05/16/24 12:01 05/16/24 12:39 05/16/24 12:16 05/16/24 12:39 05/16/24 12:16 05/16/24 04:01 05/15/24 08:00 FiO2 35 05/16/24 12:00 Narrative Exam General: Sedated and intubated Eyes: Pupils reactive to light Ears: No visible ear discharge Nose: No visible nasal discharge Mouth/Throat: Dry mucous membranes, no redness, no lesions. Neck: Short neck , non-tender, no cervical lymphadenopathy. Lungs: Mechanically ventilated, bronchial breath sounds Cardio: Normal S1/S2, regular rhythm, systolic murmurs, no JVD Abdomen: Soft, non-tender, no palpable masses, peristalsis present, no guarding or rebound. Surgical scar covered with clean dressing. Extremities: Symmetrical, no significant deformities, trace peripheral edema , non-tender, peripheral pulses presents. Skin: No rashes, no lesions, warm to touch. Neuro: Patient is currently sedated Results Labs 05/16/24 06:03 05/16/24 12:19 Labs: Short CBC 05/15/24 05/15/24 05/16/24 Range/Units 12:26 18:19 00:40 WBC (3.6-11.0) Thou/mm3 Hgb 7.2 L 7.0 L 6.7 L* (12.0-16.0) g/dL Hct 23.8 L 22.6 L 21.3 L* (36.0-46.0) % Plt Count (140-440) Thou/mm3 05/16/24 Range/Units 06:03 WBC 34.7 H (3.6-11.0) Thou/mm3 Hgb 8.0 L (12.0-16.0) g/dL Hct 24.9 L (36.0-46.0) % Plt Count 252 (140-440) Thou/mm3 [facility] 05/16/24 05/16/24 06:03 12:19 Sodium 142 144 Potassium 4.7 4.6 Chloride 115 H 115 H Carbon Dioxide 16.3 L 17.1 L BUN 55 H 60 H Creatinine 2.8 H 3.0 H Glucose 164 H 182 H Calcium 8.8 8.6 Liver Function 05/16/24 05/16/24 Range/Units 06:03 12:19 Total Bilirubin 1.2 (0.3-1.2) mg/dL AST 170 H (0-34) U/L ALT 121 H (10-49) U/L Alkaline Phosphatase 61 D (46-116) U/L Albumin 2.9 L 2.8 L (3.4-4.8) gm/dL ABG Interpretation ABG results: 05/13/24 05/15/24 05/15/24 08:29 15:28 16:03 ABG pH 7.39 7.05 L* D 7.17 L* D ABG pCO2 31 L 63 H D 45 D ABG pO2 78 L 38 L* D 84 D ABG HCO3 19 L 18 L 16 L ABG O2 Saturation 96 59 L 96 ABG Base Excess -5 L -12 L -11 L 05/16/24 04:38 ABG pH 7.28 L D ABG pCO2 34 D ABG pO2 96 ABG HCO3 16 L ABG O2 Saturation 98 ABG Base Excess -10 L Quality Measures Quality Measures VTE prophylaxis Advance care planning discussed with:: patient Medications Home Medications and Allergies Home Medications ?Medication ?Instructions ?Recorded ?Confirmed ?Type amlodipine 10 mg tablet 10 mg PO QDAY 11/16/23 05/13/24 History atorvastatin 80 mg tablet 80 mg PO QPM 11/16/23 05/13/24 History ergocalciferol (vitamin D2) 1,250 1,250 mcg PO QWEEK 11/16/23 05/13/24 History mcg (50,000 unit) capsule (Vitamin D2) glipizide 2.5 mg tablet 2.5 mg PO QDAY 11/16/23 05/13/24 History sitagliptin phosphate 100 mg 100 mg PO QDAY 11/16/23 05/13/24 History tablet (Januvia) folic acid 1 mg tablet 1 mg PO QDAY 05/13/24 05/13/24 History Allergies Allergy/AdvReac Type Severity Reaction Status Date / Time No Known Allergies Allergy Verified 11/19/23 18:02 Visit Medications Amiodarone HCl (Amiodarone Hcl 200 Mg Tablet) 200 mg PO BID ANGELICA Stop: 06/15/24 11:59 Last Admin: 05/16/24 12:39 Dose: 200 mg Heparin Sodium (Porcine) (Heparin Sod Inj 5000 Unit/Ml Vial) 5,000 unit SC Q8HR ANGELICA Stop: 05/30/24 13:59 Hydromorphone HCl (Hydromorphone Inj 2 Mg/Ml Vial) 0.5 mg IVP Q6HR PRN PRN Reason: PAIN SCALE 7-10 (Severe Stop: 05/19/24 15:34 Last Admin: 05/15/24 05:10 Dose: 0.5 mg Azithromycin 500 mg/ Sodium (Chloride) 250 mls @ 250 mls/hr IV QDAY ANGELICA; Protocol Stop: 05/21/24 08:59 Last Admin: 05/16/24 08:24 Dose: 250 mls/hr Piperacillin/Tazobactam/Dextrose (Zosyn) 50 mls @ 12.5 mls/hr IV Q8HR ANGELICA; Protocol Stop: 05/22/24 05:59 Last Admin: 05/16/24 05:00 Dose: 12.5 mls/hr Propofol (Diprivan Ivpb) 1,000 mg in 100 mls @ 2.466 mls/hr IV .Q24H PRN; Protocol PRN Reason: PER PROTOCOL Stop: 06/14/24 10:27 Last Titration: 05/16/24 10:27 Dose: 0 mcg/kg/min, 0 mls/hr Fentanyl Citrate (Sublimaze Inj 2,500 Mcg/250 Ml Bag) 2,500 mcg in 250 mls @ 2.5 mls/hr IV .Q24H PRN; Protocol PRN Reason: PER PROTOCOL Stop: 05/20/24 10:27 Last Titration: 05/16/24 11:18 Dose: 25 mcg/hr, 2.5 mls/hr Norepinephrine Bitartrate (Levophed In Ns 16mg/250ml) 16 mg in 250 mls @ 3.853 mls/hr IV .Q24H PRN; Protocol PRN Reason: PER protocol Stop: 06/14/24 10:28 Last Titration: 05/16/24 12:00 Dose: 0.3 mcg/kg/min, 23.116 mls/hr Vasopressin/Sodium Chloride (Vasostrict/Ns Ivpb) 20 unit in 100 mls @ 9 mls/hr IV .Q11H7M PRN; Protocol PRN Reason: PER PROTOCOL Stop: 06/14/24 17:55 Last Admin: 05/16/24 02:36 Dose: 0.03 unit/min, 9 mls/hr Magnesium Sulfate (Magnesium Sulfate Ivpb) 2 gm in 50 mls @ 25 mls/hr IV X1 ONE Stop: 05/16/24 13:25 Last Admin: 05/16/24 12:17 Dose: 25 mls/hr Amiodarone HCl/Dextrose (Nexterone Ivpb) 360 mg in 200 mls @ 33.333 mls/hr IV .Q6H ONE Stop: 05/16/24 17:26 Last Admin: 05/16/24 11:44 Dose: 33.333 mls/hr Amiodarone HCl/Dextrose (Nexterone Ivpb) 360 mg in 200 mls @ 16.667 mls/hr IV .Q12H [facility] Stop: 05/17/24 17:25 Ondansetron HCl (Ondansetron Inj 2 Mg/Ml Inj 2 Ml) 4 mg IV Q6H PRN; Protocol PRN Reason: NAUSEA OR VOMITING Stop: 06/12/24 11:57 Last Admin: 05/14/24 12:31 Dose: 4 mg Pantoprazole Sodium (Pantoprazole Inj 40 Mg Vial) 40 mg IVP BID [facility] Stop: 06/14/24 20:59 Last Admin: 05/16/24 08:06 Dose: 40 mg Pharmacy Consult (Pharmacy Renal Dose Adjustment 1 Ea) 1 each XX PRN PRN PRN Reason: CONSULT Stop: 06/15/24 10:26 Discontinued Medications Acetaminophen (Acetaminophen 325 Mg Tablet) 650 mg PO Q6H PRN PRN Reason: Fever >101.5 Stop: 06/12/24 11:57 Acetaminophen (Acetaminophen 325 Mg Tablet) 650 mg PO Q6H PRN PRN Reason: PAIN SCALE 1-3 (mild Stop: 06/12/24 11:57 Last Admin: 05/13/24 17:59 Dose: 650 mg Azithromycin (Azithromycin 250 Mg Tablet) 500 mg PO QDAY [facility] Stop: 05/21/24 08:59 Bumetanide (Bumetanide Inj 0.25 Mg/Ml Vial 4 Ml) 1 mg IVP X1 ONE Stop: 05/13/24 13:11 Last Admin: 05/13/24 15:00 Dose: 1 mg Fentanyl Citrate (Fentanyl Cit Inj 50 Mcg/Ml Amp 2ml) 25 mcg IVP X1 ONE Stop: 05/16/24 11:16 Last Admin: 05/16/24 11:18 Dose: 25 mcg Fentanyl Citrate (Fentanyl Cit Inj 50 Mcg/Ml Amp 2ml) 50 mcg IVP X1 ONE Stop: 05/16/24 11:52 Last Admin: 05/16/24 12:04 Dose: Not Given Furosemide (Furosemide Inj 10 Mg/Ml 4ml Vial) 40 mg IVP X1 ONE Stop: 05/15/24 04:56 Last Admin: 05/15/24 07:20 Dose: Not Given Heparin Sodium (Porcine) (Heparin Sod Inj 5000 Unit/Ml Vial) 5,000 unit SC Q8HR ANGELICA Stop: 05/27/24 13:59 Last Admin: 05/13/24 21:12 Dose: 5,000 unit Hydromorphone HCl (Hydromorphone Inj 2 Mg/Ml Vial) 0.25 mg IVP X1 ONE Stop: 05/14/24 12:46 Last Admin: 05/14/24 13:41 Dose: 0.25 mg Hydroxyzine HCl (Hydroxyzine Hcl 25 Mg Tablet) 25 mg PO X1 ONE Stop: 05/15/24 05:38 Last Admin: 05/15/24 06:01 Dose: 25 mg Sodium Chloride (Ns) 1,000 mls @ 999 mls/hr IV .Q1H1M ONE Stop: 05/13/24 06:11 Last Infusion: 05/13/24 06:20 Dose: Infused Ceftriaxone Sodium 1,000 mg/ (Sodium Chloride) 50 mls @ 100 mls/hr IV X1 ONE Stop: 05/13/24 06:23 Last Infusion: 05/13/24 07:05 Dose: Infused Azithromycin 500 mg/ Sodium (Chloride) 250 mls @ 250 mls/hr IV X1 ONE Stop: 05/13/24 06:53 Last Infusion: 05/13/24 07:35 Dose: Infused Ceftriaxone Sodium/Dextrose (Rocephin/D5w 1gm Iv Premix) 50 mls @ 100 mls/hr IV QDAY ANGELICA Stop: 05/20/24 12:03 Last Admin: 05/13/24 12:20 Dose: Not Given Azithromycin 500 mg/ Sodium (Chloride) 250 mls @ 250 mls/hr IV QDAY ANGELICA Stop: 05/20/24 12:03 Last Admin: 05/13/24 12:20 Dose: Not Given Ceftriaxone Sodium/Dextrose (Rocephin/D5w 1gm Iv Premix) 50 mls @ 100 mls/hr IV QDAY ANGELICA Stop: 05/21/24 08:59 Sodium Chloride (Ns) 1,000 mls @ 999 mls/hr IV .Q1H1M ONE Stop: 05/13/24 13:47 Last Infusion: 05/13/24 13:55 Dose: Infused Ceftriaxone Sodium/Dextrose (Rocephin/D5w 1gm Iv Premix) 50 mls @ 100 mls/hr IV QDAY ANGELICA Stop: 05/21/24 08:59 Last Admin: 05/14/24 08:37 Dose: 100 mls/hr Azithromycin 500 mg/ Sodium (Chloride) 250 mls @ 250 mls/hr IV X1 ONE; Protocol Stop: 05/13/24 14:14 Pantoprazole Sodium (Protonix/Ns 80mg Iv Premix) 80 mg in 100 mls @ 10 mls/hr IV Q10H ANGELICA Stop: 05/17/24 06:03 Last Admin: 05/15/24 20:22 Dose: 10 mls/hr Potassium Chloride (Kcl Ivpb) 10 meq in 100 mls @ 100 mls/hr IV Q1H [facility] Stop: 05/14/24 12:46 Last Admin: 05/14/24 11:48 Dose: Not Given Sodium Chloride (Ns) 500 mls @ 999 mls/hr IV .Q31M ONE Stop: 05/15/24 00:57 Last Infusion: 05/15/24 12:00 Dose: Infused Sodium Chloride (Ns) 500 mls @ 999 mls/hr IV .Q31M ONE Stop: 05/15/24 01:49 Last Admin: 05/15/24 01:32 Dose: 999 mls/hr Albumin Human (Albuminar-25 Ivpb) 12.5 gm in 50 mls @ 50 mls/hr IV X1 ONE Stop: 05/15/24 05:56 Albumin Human (Albuminar-25 Ivpb) 25 gm in 100 mls @ 100 mls/hr IV X1 ONE Stop: 05/15/24 05:59 Last Admin: 05/15/24 07:27 Dose: 100 mls/hr Sodium Chloride (Ns) 500 mls @ 999 mls/hr IV .Q31M ONE Stop: 05/15/24 08:12 Last Admin: 05/15/24 07:43 Dose: 999 mls/hr Sodium Chloride (Ns) 1,000 mls @ 999 mls/hr IV .Q1H1M ONE Stop: 05/15/24 08:53 Last Admin: 05/15/24 15:50 Dose: Not Given Lactated Ringer's (Lactated Ringers) 1,000 mls @ 999 mls/hr IV .Q1H1M ONE Stop: 05/15/24 11:22 Last Infusion: 05/15/24 11:37 Dose: Infused Amiodarone HCl/Dextrose (Nexterone Ivpb) 150 mg in 100 mls @ 600 mls/hr IV .Q10M ONE Stop: 05/16/24 11:37 Last Admin: 05/16/24 11:35 Dose: 600 mls/hr Insulin Human Regular (Insulin Hum Regular 1 Unit/0.01 Ml (Per Unit)) 5 unit IV X1 ONE Stop: 05/13/24 07:08 Last Admin: 05/13/24 09:42 Dose: Not Given Lidocaine (Lidocaine 5% 1 Patch) 1 patch TOP X1 ONE Stop: 05/14/24 03:21 Last Admin: 05/14/24 03:28 Dose: 1 patch Pantoprazole Sodium (Pantoprazole Inj 40 Mg Vial) 40 mg IVP Q12HR ANGELICA Stop: 06/12/24 20:59 Pantoprazole Sodium (Pantoprazole 40 Mg Tablet) 40 mg PO QDAY ANGELICA Stop: 06/13/24 08:59 Pantoprazole Sodium (Pantoprazole Inj 40 Mg Vial) 80 mg IV X1 ONE Stop: 05/14/24 08:03 Last Admin: 05/14/24 08:37 Dose: 80 mg Potassium Chloride (Potassium Chloride 20 Meq Tabcr) 40 meq PO X1 ONE Stop: 05/14/24 11:40 Last Admin: 05/14/24 12:18 Dose: 40 meq Sennosides (Senna Tablet) 1 tab PO QDAY PRN; Protocol PRN Reason: constipation Stop: 06/12/24 11:57 Sucralfate (Sucralfate Susp 1 Gm/10 Ml Udc) 1 gm PO QID ANGELICA Stop: 06/12/24 16:59 Last Admin: 05/15/24 13:40 Dose: Not Given Assessment & Plan Plan Summary: Mr. Castellanos is a [id number] with past medical history of prediabetes, CKD, hypertension, history of ulcers who was admitted to [facility] for sepsis secondary to pneumonia and acute metabolic encephalopathy. Patient is currently sedated intubated in ICU status post exploratory laparotomy with repair of perforated gastric ulcer with an omental patch. Nephrology consulted for acute kidney injury. #Acute kidney injury Patient does report history of chronic kidney disease secondary to hypertension, baseline GFR noted to be more than 60, patient presented with GFR 45, improved initially to more than 60. Patient did have ADILSON on 05/15 with creatinine 2.4 since then creatinine worsened to 3.0 and nephrology was consulted. BUN 60, creatinine 3.0, GFR 16 today, patient's urine output 820 mL. Patient is currently on vasopressors maintaining MAP of more than 60. Plan: Monitor urine output closely Monitor renal panel in a.m. Follow UA and urine sodium If renal function continues to decline will consider dialysis Family at bedside informed of care plan, agrees with dialysis intervention if needed Renally dose medications Avoid nephrotoxic agents #Metabolic acidosis #Lactic Acidosis pH 7.28, bicarb 16, in setting of shock -Patient was given 1 amp of bicarb -Monitor bicarb in a.m. #Acute Encephalopathy #Distributive shock #Acute decompensated HF #Elevated Troponin #Hyperlipidemia #Primary Hypertension #Acute Hypoxic Respiratory failure #Pneumoperitoneum #Peritonitis secondary to perforated gastric ulcer #Acute Upper GI bleed #Diabetes Mellitus type II #Acute anemia Management as per primary team. Case discussed with Attending Dr. August. Geovani Mahmood PGY1 Attending Provider Attestation/Addendum Patient seen and examined with resident physician Dr. Mahmood. Note reviewed, agree with findings and recommendations. Patient currently seen in ICU. Family at bedside. Currently on the ventilator. Patient with sepsis, peritonitis secondary to perforated gastric ulcer which was repaired. Currently on pressors. Urine output trending down. BUN and creatinine are significantly elevated. Suspect patient going towards ATN. Will monitor closely urine output and azotemia. Family requesting all aggressive measures including dialysis if indicated. No need for emergency dialysis. 1 amp of bicarbonate given. If no improvement in azotemia/decreasing urine output-will plan for renal replacement therapy in the next [address] Robles for allowing me to participate in the care of Ms. Castellanos
--- NOTE | 2024-05-16 13:05 | CHAP ---
09:30 AM Visited by spiritual care volunteer Provided prayer for Patient.
[2024-05-16] MEDS: HEPARIN SOD INJ 5000 UNIT/ML VIAL SC ×2 (13:47→21:24)
--- NOTE | 2024-05-16 15:18 | PC.DIETICIAN ---
Nutrition prescription If EN is indicated, consider: Vital 1.2 at 20 ml/hr via NG tube by pump. Advance 10 ml every 8 hrs to goal rate of 50 ml/hr x 24 hrs. If no IV fluids, water flushes of 25 ml/hr (or per MD).
--- NOTE | 2024-05-16 15:24 | PC.NURSE ---
Late entry: @1107 Pt went into A.fib RVR with heart rate 167. MD Robles made aware. EKG ordered. Amiodarone drip started
[2024-05-16] MEDS: Sodium Bicarb Inj 8.4% SYR 50 ML SYRINGE IV (16:32)
[2024-05-16] MEDS: AMIODARONE 360 MG IVPB 360 MG/200 ML BAG 16.667 MG IV (17:47)
[2024-05-16] MEDS: Norepinephrine/NS 16mg/250ml 16 MG/250 ML BAG 20.034 MG IV (18:00)
[2024-05-16] MEDS: fentaNYL 2,500 MCG/250 ML BAG 2,500 MCG/250 ML BAG 22.5 MCG IV (18:00)
[2024-05-16 21:16] LABS: Collection Type, Urine Catheter; Squamous Epithelial Cell,Urine 0 /hpf (0-5)
--- NOTE | 2024-05-16 21:16 | ESPR_ITS ---
Documentation for date of: 05/16/24 Subjective Subjective Interval history: Complicated postoperative course with renal failure and new onset atrial fibrillation on amiodarone drip Hypotension requiring Levophed and vasopressin Ventilatory dependent Worsening renal function with a BUN/creatinine of sixteen 3.8 Exam Vital Signs Temp Pulse Resp BP Pulse Ox O2 Del Method O2 Flow Rate 98.4 F 67 26 H 125/56 L 98 Mechanical Ventilation 1 05/16/24 16:00 05/16/24 18:39 05/16/24 18:00 05/16/24 18:39 05/16/24 18:39 05/16/24 04:01 05/15/24 08:00 FiO2 35 05/16/24 18:39 Routine Respiratory Exam Comments: Mechanically ventilated with assist-control Routine Abdominal Exam Comments: No bowel sounds Objective Labs 05/16/24 06:03 05/16/24 12:19 Labs: Laboratory Results - last 24 hr 05/13/24 05/16/24 05/16/24 05:15 00:40 01:21 WBC RBC Hgb 6.7 L* Hct 21.3 L* MCV MCH MCHC RDW Std Deviation Plt Count Neut % (Auto) Lymph % (Auto) [place] % (Auto) Eos % (Auto) Baso % (Auto) Neut # (Auto) Lymph # (Auto) [place] # (Auto) Eos # (Auto) Baso # (Auto) Immature Gran # (Auto) Absolute Nucleated RBC Immature Gran % Neutrophils % (Manual) Monocytes % (Manual) Metamyelocytes % Nucleated RBC % Band Neutrophils Lymphocytes (Manual) Differential Comment Smear Path Review Puncture Site ABG pH ABG pCO2 ABG pO2 ABG HCO3 ABG O2 Saturation ABG Base Excess FiO2 Sodium Potassium Chloride Carbon Dioxide Anion Gap BUN Creatinine Estim Creat Clear Calc eGFR BUN/Creatinine Ratio Glucose Calculated Osmolality Lactic Acid 1.9 Calcium Corrected Calcium Phosphorus Magnesium Total Bilirubin AST ALT Alkaline Phosphatase Total Protein Albumin Globulin Albumin/Globulin Ratio Blood Type O Positive O Positive Antibody Screen NEGATIVE NEGATIVE Crossmatch See Detail See Detail Blood Bank Wristband ID Yes Yes 05/16/24 05/16/24 05/16/24 04:38 06:03 12:19 WBC 34.7 H RBC 2.87 L Hgb 8.0 L Hct 24.9 L MCV 87 MCH 27.9 MCHC 32.1 RDW Std Deviation 47.8 H Plt Count 252 Neut % (Auto) 91 H Lymph % (Auto) 4 L [place] % (Auto) 3 Eos % (Auto) 1 Baso % (Auto) 0 Neut # (Auto) 31.5 H Lymph # (Auto) 1.3 [place] # (Auto) 1.0 H Eos # (Auto) 0.3 Baso # (Auto) 0.1 Immature Gran # (Auto) 0.63 H Absolute Nucleated RBC 0.89 H Immature Gran % 2 H Neutrophils % (Manual) 64 Monocytes % (Manual) 1 L Metamyelocytes % 1 H Nucleated RBC % 3 H Band Neutrophils 32 H Lymphocytes (Manual) 2 L Differential Comment Smear Path Review Sent to Pathologist Puncture Site Left Radial ABG pH 7.28 L D ABG pCO2 34 D ABG pO2 96 ABG HCO3 16 L ABG O2 Saturation 98 ABG Base Excess -10 L FiO2 35 Sodium 142 144 Potassium 4.7 4.6 Chloride 115 H 115 H Carbon Dioxide 16.3 L 17.1 L Anion Gap 11 12 BUN 55 H 60 H Creatinine 2.8 H 3.0 H Estim Creat Clear Calc 17.2 L 16.1 L eGFR 18 L 16 L BUN/Creatinine Ratio 20 20 Glucose 164 H 182 H Calculated Osmolality 302 H 308 H Lactic Acid 1.6 Calcium 8.8 8.6 Corrected Calcium 9.7 9.6 Phosphorus 5.2 H 5.3 H Magnesium 1.9 2.0 Total Bilirubin 1.2 AST 170 H ALT 121 H Alkaline Phosphatase 61 D Total Protein 4.9 L Albumin 2.9 L 2.8 L Globulin 2.0 L Albumin/Globulin Ratio 1.5 Blood Type Antibody Screen Crossmatch Blood Bank Wristband ID Impressions Impression: # Status post exploratory laparotomy for perforated gastric ulcer requiring suturing and omentoplasty # Hypotension on pressor support # Worsening renal function # New onset atrial fibrillation patient on amiodarone drip Continue current management Prognosis very guarded ABG Interpretation ABG results: 05/13/24 05/15/24 05/15/24 08:29 15:28 16:03 ABG pH 7.39 7.05 L* D 7.17 L* D ABG pCO2 31 L 63 H D 45 D ABG pO2 78 L 38 L* D 84 D ABG HCO3 19 L 18 L 16 L ABG O2 Saturation 96 59 L 96 ABG Base Excess -5 L -12 L -11 L 12/17/24 04:38 ABG pH 7.28 L D ABG pCO2 34 D ABG pO2 96 ABG HCO3 16 L ABG O2 Saturation 98 ABG Base Excess -10 L Assessment & Plan A&P Narrative # Acute posthemorrhagic anemia most likely due to the bleeding gastric ulcer Clear liquid diet IV Protonix N.p.o. midnight tonight for a upper endoscopy tomorrow consent will be obtained Serial CBC And transfuse as necessary for hemoglobin of below 7.0 # Altered mental status hepatic/metabolic encephalopathy # Right basilar pneumonia # Acute hypoxic respiratory failure # Hypertension # CKD stage III Thank you very much for the opportunity to participate in the care of this patient Time Spent With Patient Time: Total time spent is greater than 50% in coordination of care (as documented) at patient's floor/unit and/or counseling patient:
[2024-05-16] MEDS: PIPER/TAZO INJ 4.5 GM in SODIUM CHLORIDE 0.9% (P) 100 ML IV (21:24)
[2024-05-16 21:35] LABS: Bacteria,Urine Rare; Bilirubin,Urine Negative (Negative); Blood,Urine Trace (Negative); Budding Yeast,Urine Present; Clarity,Urine Turbid (Clear/Hazy); Color,Urine Yellow (Lt Yel-Yel); Glucose, Urine Negative (Negative); Ketones,Urine Negative (Negative); Leukocyte Esterase,Urine Negative (Negative); Nitrite,Urine Negative (Negative); PH,Urine 5.5 (5.0-7.0); Protein,Urine 1+ (Neg - Trace); RBC,Urine 37 /hpf (0-3); Specific Gravity,Urine 1.048 (1.001-1.035); Uric Acid Crystals,Urine 4+; Urobilinogen,Urine Negative mg/dL (0.0-1.0); WBC,Urine 9 /hpf (0-5)
[2024-05-16 21:52] LABS: Creatinine,Random Urine 117 mg/dL (30-125); Sodium,Urine Random < 10.0 mMol/L (20.0-110.0)
[2024-05-17] VITALS (113 sets, daily range): BP systolic 84–156; BP diastolic 41–81; PULSE 59–91; RESP 19–34; TEMP 36.6–38.3; O2SAT 90–100
[2024-05-17] MEDS: PROPOFOL 1,000 MG IVPB 1,000 MG/100 ML VIAL 2.466 MG IV (03:01)
[2024-05-17] MEDS: VASOPRESSIN IN NS IVPB 20 UNIT/100 ML BAG 9 UNIT IV ×2 (03:45→14:59)
[2024-05-17] MEDS: fentaNYL 2,500 MCG/250 ML BAG 2,500 MCG/250 ML BAG 27.5 MCG IV (04:23)
[2024-05-17 04:24] LABS: Base Excess -8 (-3-3); HCO3 17 mEq/L (20-26); Inspired Oxygen, FIO2 30 %; O2 Saturation 97 % (91-98); PCO2 28 mmHg (32.0-48.0); PO2 85 mmHg (83-108); pH, Arterial 7.38 (7.35-7.45)
[2024-05-17 04:30] LABS: Allen Test Performed/OK; Puncture Site Right Radial
[2024-05-17] MEDS: HEPARIN SOD INJ 5000 UNIT/ML VIAL SC ×2 (05:46→21:02)
[2024-05-17] MEDS: AMIODARONE 360 MG IVPB 360 MG/200 ML BAG 16.667 MG IV (05:47)
[2024-05-17 06:06] LABS: Basophils # (Auto) 0.1 Thou/mm3 (0.0-0.2); Basophils % (Auto) 0 % (0-2.5); Eosinophils % (Auto) 0 % (0-10); Hematocrit 23.7 % (36.0-46.0); Immature Granulocytes % (Auto) 2 % (0-0); Immature Granulocytes Auto 0.38 Thou/mm3 (0.00-0.00); Lymphocytes # (Auto) 1.1 Thou/mm3 (1.0-4.8); Lymphocytes % (Auto) 4 % (10-50); Mean Corpuscular HGB Conc 33.3 g/dl (31.0-37.0); Mean Corpuscular Hemoglobin 27.5 pg (25.0-35.0); Mean Corpuscular Volume 83 fL (80-100); Monocytes # (Auto) 0.9 Thou/mm3 (0.0-0.8); Monocytes % (Auto) 3 % (0-12); Neutrophils # (Auto) 22.7 Thou/mm3 (1.8-7.7); Neutrophils % (Auto) 91 % (37-80); Nucleated Red Blood Cell # 0.39 Thou/mm3 (0.00-0.00); Nucleated Red Blood Cell % 2 /100 WBC (0); Platelet Count 206 Thou/mm3 (140-440); Red Blood Count 2.87 Miln/mm3 (4.00-5.20)
[2024-05-17 06:13] LABS: Hemoglobin 7.9 g/dL (12.0-16.0); White Blood Count 25.1 Thou/mm3 (3.6-11.0)
[2024-05-17 06:35] LABS: Alanine Aminotransferase 142 U/L (10-49); Albumin, Serum 2.7 gm/dL (3.4-4.8); Albumin/Globulin Ratio 1.3 (1.2-2.2); Alkaline Phosphatase 66 U/L (46-116); Anion Gap 13 (7-16); Aspartate Amino Transferase 140 U/L (0-34); BUN/Creatinine Ratio 22 Ratio (12-20); Bilirubin,Total 0.7 mg/dL (0.3-1.2); Blood Urea Nitrogen 76 mg/dL (9-23); Calcium 8.5 mg/dL (8.3-10.6); Calcium (Corrected) 9.5 mg/dL (8.5-10.1); Carbon Dioxide 18.3 mMol/L (20.0-31.0); Chloride 114 mMol/L (98-107); Creatinine (Component) 3.5 mg/dL (0.6-1.3); Globulin 2.1 gm/dL (2.3-3.5); Glucose 187 mg/dL (74-106); Magnesium 2.6 mg/dL (1.6-2.6); Osmolality,Calculated 316 (275-295); Phosphorous 4.9 mg/dL (2.4-5.1); Potassium 4.1 mMol/L (3.4-5.1); Sodium 145 mMol/L (136-145); Total Protein 4.8 gm/dL (5.7-8.2); eGFR 14 See Note
[2024-05-17] MEDS: AZITHROMYCIN INJ 500 MG in SODIUM CHLORIDE 0.9% 250 ML 250 ML 250 MG IV (08:22)
[2024-05-17] MEDS: PANTOPRAZOLE INJ 40 MG VIAL IVP ×2 (08:22→21:02)
[2024-05-17] MEDS: PIPER/TAZO INJ 4.5 GM in SODIUM CHLORIDE 0.9% (P) 100 ML IV ×2 (08:23→21:03)
--- NOTE | 2024-05-17 10:42 | CHAP ---
Patient unconscious, but family present. We prayed at the foot of her bed. The family expressed their thanks to me.
--- NOTE | 2024-05-17 10:46 | PD.SURPROG ---
Documentation for date of: 05/17/24 Subjective Subjective Brief History: 69F with HTN, CKDIII, pre DM and known gastric ulcers who was admitted 05/13 after being found down at home. Pt was admitted for encephalopathy and pneumonia, developed anemia for which EGD was planned today however this am had an [employer] TECH[employer]IC[employer]ER for tachycardia, hypotension and acute pain; she underwent CT AP showing pneumoperitoneum with air droplets adjacent to the stomach PMH: HTN, CKDIII, preDM, known gastric ulcers on EGD 10/2023 PSHx: None Meds: No antiplt or anticoagulation Allergies: NKDA Narrative: No fever overnight, remains on low-dose pressor support while on WC 25 from 34 sedation,, BALAJI with 20 cc overnight, no BM as of yet, plan for dialysis today Exam Vital Signs Temp Pulse Resp BP Pulse Ox O2 Del Method O2 Flow Rate 98.9 F 59 L 26 H 94/58 L 99 Mechanical Ventilation 1 05/17/24 08:00 05/17/24 10:17 05/17/24 09:00 05/17/24 10:17 05/17/24 10:17 05/17/24 09:00 05/15/24 08:00 FiO2 30 05/17/24 10:17 Constitutional Constitutional: no acute distress Routine Respiratory Exam Respiratory: Present patient mechanically ventilated Routine Abdominal Exam Abdominal: Present soft, distended (Mild distention), wound (Midline wound with aixa intact, no erythema or drainage) and drain (Left upper quadrant drain with serosanguineous drainage); Absent tenderness Results Results: Laboratory Laboratory results: results reviewed Assessment & Plan Plan 69F with HTN, CKDIII, pre DM and known gastric ulcers who was admitted 05/13 after being found down at home, who developed pneumoperitoneum 05/15 now s/p emergent ex lap, repair of gastric perforation, remaining critically ill NG to LIS Monitor BALAJI output Wean pressor support as tolerated Continue abx Procedures Procedures Exploratory laparotomy, repair of perforated gastric ulcer
--- NOTE | 2024-05-17 11:34 | PC.RT ---
PER DR MAYO PATIENT WAS FIRST PUT ON SBT @1045 PS 05/07 THEN INCREASED TO 12/01 THEN INCREASED ONCE MORE TO 14/03. PATIENT FAILED SBT.
--- NOTE | 2024-05-17 11:39 | PC.RT ---
PER DR MAYO PATIENT WAS PUT ON SBT @1050 ON PS 05/04 & PATIENT FAILED.
--- NOTE | 2024-05-17 12:36 | XR_ITS ---
Examination: AP chest single view Technique one AP portable semiupright chest single view Exam date and time: May 17, 2024 1255 hours Comparison May 15, 2024 INDICATIONS: Hypoxic respiratory failure, postintubation, post central line and dialysis catheter placement FINDINGS: Mild enlargement cardiac contour Prominent vascular congestion Bibasilar edema and/or pneumonia Endotracheal tube tip 3.2 cm above celeste Orogastric tube in the stomach, the tip is below the level film Left internal jugular temporary dialysis catheter tip SVC Right internal jugular central line tip SVC No pneumothorax IMPRESSION: [id number] heart failure Bibasilar edema and/or pneumonia, clinical correlation advised Endotracheal tube, left temporary dialysis catheter in right internal jugular central line satisfactory position
--- NOTE | 2024-05-17 12:47 | PD.INTPROC ---
Procedures Procedure Date / Time 05/17/24 1247 Central Line Placement Left IJ: Indication(s): other (HEMODIALYSIS FOR ATN) Informed consent obtained: obtained from surrogate decision maker (SON - risks / benefits and alternatives discussed. he agreed and consented ) Time out done, and the following verified: correct patient, side and site, procedure, patient position and implants and/or equipment Patient placed on monitor/pulse ox: Yes Hand Hygiene: alcohol-based hand rub Max Sterile Barrier Techniques used: cap, mask, sterile gown, sterile gloves and sterile full body drape Central line prep: Chlorhexidine scrub Local anesthesia used: lidocaine 1% Amount of anesthesia used (mL): 5 Ultrasound used for placement: Yes Sterile Technique if Ultrasound used, including sterile gel: yes Central line lumen inserted: triple Post procedure: sutured in place, good blood return, all ports aspirated, flushed, capped and sterile dressing applied Post procedure x-ray: other (ORDERED AND PENDING) Patient tolerated procedure: well and no complications EBL(ml): 5 Complications: none
--- NOTE | 2024-05-17 13:35 | ESOP_ITS ---
<Statement entered by Sinan Robles MD - 05/18/24 14:18> I was present for the critical and donnelly portions of the procedure and was immediately available to provide assistance. Procedures Procedure Date / Time 05/17/24 1335 Central Line Placement Left IJ: Indication(s): other (Hemodialysis) Informed consent obtained: other (Pt's son) Time out done, and the following verified: correct patient, side and site, procedure, patient position and implants and/or equipment Patient placed on monitor/pulse ox: Yes Hand Hygiene: scrub and alcohol-based hand rub Max Sterile Barrier Techniques used: cap, mask, sterile gown, sterile gloves and sterile full body drape Central line prep: Chlorhexidine scrub Local anesthesia used: lidocaine 1% Amount of anesthesia used (mL): 5 Ultrasound used for placement: Yes Sterile Technique if Ultrasound used, including sterile gel: yes Central line lumen inserted: triple Post procedure: sutured in place, good blood return, all ports aspirated, flushed, capped and sterile dressing applied Post procedure x-ray: tip of catheter in good position Patient tolerated procedure: well and no complications EBL(ml): 5 Complications: none
--- NOTE | 2024-05-17 13:41 | ESPR_ITS ---
<Statement entered by Sinan Robles MD - 05/18/24 15:42> TOTAL CC TIME: 45 MIN I saw and evaluated the patient. I reviewed the resident?s note and agree with findings and plan as documented in the resident?s note. Upon my evaluation, this patient had a high probability of imminent or life- threatening deterioration due to septic shock which required my direct attention, intervention, and personal management. This time is exclusive of time spent on procedures, which are documented separately if performed. Vasopressor doses are slowly being weaned patient remains encephalopathic despite sedation weaning, continue to monitor and continue to wean sedation further as tolerated. Transition to pressure support ventilation when able to tolerate. Multiple attempts were made throughout the day and the patient persistently develops recurrent apneas due to sedation. Documentation for date of: 05/17/24 Subjective Subjective Interval history: 05/16: Late in the evening, pt's MAP was dropping below 60 and required vasopressin in addition to levophed. Patient had a trial of pressure support which she did not tolerate and was overworking the vent therefore changed the setting back to assist-control. Patient sedation medication today, she became agitated and restless therefore increased the fentanyl to RASS goal of -3 and DC'd the propofol. Later in the afternoon patient had a new onset of A-fib and was started on amiodarone drip, ordered EKG, and echo. 05/17: No acute overnight events. Patient had no urinary output through the night and decreased urine output during the day. Patient continues to be on vasopressin and Levophed to maintain MAP above 65. She is currently sedated on fentanyl and propofol. Today patient got a catheter for hemodialysis as patient requires a session today with creatinine of 3.4 and GFR 14. Patient's kidney function continues to decline. Patient also failed spontaneous breathing trial so we will continue intubation today and will retry tomorrow. Echo findings are consistent with ejection fraction of 55 to 60% . Patient is transition from amiodarone drip to p.o. amiodarone. Exam Vital Signs Temp Pulse Resp BP Pulse Ox O2 Del Method O2 Flow Rate 98.4 F 68 26 H 128/55 L 90 L Mechanical Ventilation 1 05/17/24 12:00 05/17/24 12:31 05/17/24 12:05/17/24 12:05/17/24 12:05/17/24 12:00 05/15/24 08:00 FiO2 30 05/17/24 12:00 Narrative Exam GENERAL: sedated and on michanical ventilation NEURO: unable to obtain due to patient being intubated and on mechanical ventilation HEENT: Atraumatic, Normocephalic. mucous membranes moist. HEART: Normal Heart Sounds LUNGS: Clear to auscultation with no wheezing or crackles. ABDOMEN: surgical scar is clean with BALAJI drain in place with minimal output SKIN: No Rash or ecchymoses EXTREMITIES: non pitting edema in upper and lower extremities, pedal pulses palpated Objective Labs 05/17/24 05:41 05/17/24 05:41 Labs: Laboratory Results - last 24 hr 05/16/24 05/17/24 05/17/24 20:49 04:03 05:41 WBC 25.1 H D RBC 2.87 L Hgb 7.9 L Hct 23.7 L MCV 83 MCH 27.5 MCHC 33.3 RDW Std Deviation 47.0 H Plt Count 206 D Neut % (Auto) 91 H Lymph % (Auto) 4 L [place] % (Auto) 3 Eos % (Auto) 0 Baso % (Auto) 0 Neut # (Auto) 22.7 H Lymph # (Auto) 1.1 [place] # (Auto) 0.9 H Eos # (Auto) 0.0 Baso # (Auto) 0.1 Immature Gran # (Auto) 0.38 H Absolute Nucleated RBC 0.39 H Immature Gran % 2 H Nucleated RBC % 2 H Puncture Site Right Radial ABG pH 7.38 D ABG pCO2 28 L ABG pO2 85 ABG HCO3 17 L ABG O2 Saturation 97 ABG Base Excess -8 L FiO2 30 Sodium 145 Potassium 4.1 D Chloride 114 H Carbon Dioxide 18.3 L Anion Gap 13 BUN 76 H Creatinine 3.5 H D Estim Creat Clear Calc 14.0 L eGFR 14 L* BUN/Creatinine Ratio 22 H Glucose 187 H Calculated Osmolality 316 H Calcium 8.5 Corrected Calcium 9.5 Phosphorus 4.9 Magnesium 2.6 Total Bilirubin 0.7 D AST 140 H ALT 142 H Alkaline Phosphatase 66 Total Protein 4.8 L Albumin 2.7 L Globulin 2.1 L Albumin/Globulin Ratio 1.3 Ur Collection Type Catheter Urine Color Yellow Urine Clarity Turbid A Urine pH 5.5 Ur Specific [place] 1.048 H Urine Protein 1+ A Urine Glucose (UA) Negative Urine Ketones Negative Urine Blood Trace Urine Nitrite Negative Urine Bilirubin Negative Urine Urobilinogen (Auto) Negative Ur Leukocyte Esterase Negative Urine RBC 37 H Urine WBC 9 H Ur Squamous Epith Cells 0 Uric Acid Crystals 4+ A Urine Bacteria Rare Urine Yeast (Budding) Present A Ur Random Creatinine 117 Ur Random Sodium < 10.0 L ABG Interpretation ABG results: 05/13/24 05/15/24 05/15/24 08:29 15:28 16:03 ABG pH 7.39 7.05 L* D 7.17 L* D ABG pCO2 31 L 63 H D 45 D ABG pO2 78 L 38 L* D 84 D ABG HCO3 19 L 18 L 16 L ABG O2 Saturation 96 59 L 96 ABG Base Excess -5 L -12 L -11 L 05/16/24 05/17/24 04:38 04:03 ABG pH 7.28 L D 7.38 D ABG pCO2 34 D 28 L ABG pO2 96 85 ABG HCO3 16 L 17 L ABG O2 Saturation 98 97 ABG Base Excess -10 L -8 L Quality Measures Quality Measures VTE prophylaxis Advance care planning discussed with:: child Assessment & Plan Assessment Current Active Medications: Generic Name Dose Route Start Last Admin Trade Name Freq PRN Reason Stop Dose Admin Amiodarone HCl 200 mg 05/16/24 12:00 05/17/24 08:33 Amiodarone Hcl 200 Mg Tablet PO 06/15/24 11:59 Not Given BID ANGELICA Heparin Sodium (Porcine) 5,000 unit 05/16/24 14:00 05/17/24 05:46 Heparin Sod Inj 5000 Unit/Ml Vial SC 05/30/24 13:59 5,000 unit Q8HR ANGELICA Administration Hydromorphone HCl 0.5 mg 05/14/24 15:35 05/15/24 05:10 Hydromorphone Inj 2 Mg/Ml Vial IVP 05/19/24 15:34 0.5 mg Q6HR PRN Administration PAIN SCALE 7-10 (Severe Azithromycin 500 mg/ Sodium 250 mls @ 250 mls/hr 05/14/24 09:00 05/17/24 09:34 Chloride IV 05/21/24 08:59 Infused QDAY [facility] Infusion Protocol Propofol 1,000 mg in 100 mls @ 2.466 mls/hr 05/15/24 10:28 05/17/24 11:00 Diprivan Ivpb IV 06/14/24 10:27 5 mcg/kg/min .Q24H PRN 2.466 mls/hr PER PROTOCOL Titration Protocol 5 MCG/KG/MIN Fentanyl Citrate 2,500 mcg in 250 mls @ 2.5 mls/hr 05/15/24 10:28 05/17/24 11:06 Sublimaze Inj 2,500 Mcg/250 Ml Bag IV 05/20/24 10:27 25 mcg/hr .Q24H PRN 2.5 mls/hr PER PROTOCOL Titration Protocol 25 MCG/HR Norepinephrine Bitartrate 16 mg in 250 mls @ 3.853 mls/hr 05/15/24 10:29 05/17/24 11:18 Levophed In Ns 16mg/250ml IV 06/14/24 10:28 0.06 mcg/kg/min .Q24H PRN 4.623 mls/hr PER protocol Titration Protocol 0.05 MCG/KG/MIN Vasopressin/Sodium Chloride 20 unit in 100 mls @ 9 mls/hr 05/15/24 17:56 05/17/24 03:45 Vasostrict/Ns Ivpb IV 06/14/24 17:55 0.03 unit/min .Q11H7M PRN 9 mls/hr PER PROTOCOL Administration Protocol 0.03 UNIT/MIN Amiodarone HCl/Dextrose 360 mg in 200 mls @ 16.667 mls/hr 05/16/24 17:26 05/17/24 05:47 Nexterone Ivpb IV 05/17/24 17:25 16.667 mls/hr .Q12H ANGELICA Administration Piperacillin Sod/Tazobactam 100 mls @ 200 mls/hr 05/16/24 22:00 05/17/24 09:07 Sod 4.5 gm/ Sodium Chloride IV 05/23/24 21:59 Infused Q12HR ANGELICA Infusion Ondansetron HCl 4 mg 05/13/24 11:58 05/14/24 12:31 Ondansetron Inj 2 Mg/Ml Inj 2 Ml IV 06/12/24 11:57 4 mg Q6H PRN Administration NAUSEA OR VOMITING Protocol Pantoprazole Sodium 40 mg 05/15/24 21:00 05/17/24 08:22 Pantoprazole Inj 40 Mg Vial IVP 06/14/24 20:59 40 mg BID ANGELICA Administration Pharmacy Consult 1 each 05/16/24 10:27 Pharmacy Renal Dose Adjustment 1 Ea XX 06/15/24 10:26 PRN PRN CONSULT Plan Ms. Castellanos is a 69-year-old female with past medical history significant for hypertension, diabetes, CKD stage III, and history of gastric ulcers who presented to the ED on 05/13/2024 after she was found unconscious on the floor. Per chart reviewing prior to this unconsciousness patient was having abdominal pain and generalized weakness with diarrhea and shortness of breath for 2 days. Patient was admitted to the hospital for treatment and management of sepsis secondary to pneumonia. Patient was given 1 L normal saline and started on ceftriaxone and azithromycin. patient underwent ex lap surgery for perforated gastric ulcer. Patient remained intubated postop and is upgraded to the ICU. Neuro: #Acute Encephaopathy - Likely multifactorial 2/2 to infectious plus metabolic - Now on sedation with fentanyl - Brain MRI with MRA shows significant stenosis in posterior cerebral artery - Plan: sedation vacation in am and non pharm measures to prevent delirium Cardiovasc: #shock DDx: more likely Septic shock due to vasodilation -S/P aggressive fluid resuscitation, continue to monitor and will give additional fluids as needed -Plan: start levophed (05/15) and vasopression (05/15)to maintain MAP >65, wean as tolerated. -Status post 1 unit PRBC given 05/15/2024 for hemoglobin below 7 -Continue iv antibiotics and additional fluids as needed and treat underlying cause # New onset A-fib -Likely secondary to shock in the setting of abdominal surgery -EKG findings consistent with A-fib -Amiodarone drip started, additional p.o. amiodarone ordered -Cardiology consulted #Acute exacerbation of HFpEF- resolved #Hx. of CHF -echo 05/16 -estimated EF of 55 to 60%, stage I diastolic dysfunction noted, Moderate to severe posterior MAC -Pt presented with SOB and 2+ edema in LE -elevated BNP from 304 --> 1110 -holding guideline directed medical therapy due to shock, will resume when able #Elevated Troponin most likely secondary to demand ischemia in setting of shock Plan: Troponin increased to 0.494 and continue to monitor until down-trend. #Hyperlipidemia -Plan: Hold home atorvastatin as patient is npo. Will reinstate as tolerated #Primary Hypertension -Plan: Hold home amlodipine in setting of shock Pulm: #Acute Hypoxic Respiratory failure -2/2 to pulmonary edema in the setting of volume overload 2/2 ATN due to shock leading to oligoanuria -Further complicated by bilateral lung atelectasis in the setting of recent abdominal surgery and sedatives use -Patient is intubated and on mechanical ventilation (05/15): AC RR26 PEEP5 TV 350 FiO2 30 - Spontaneous breathing trail tomorrow, spontaneous breathing trial failed today as patient became agitated when sedation's were lowered Renal: #Acute tubular necrosis - 2/2 secondary to prerenal azootemia in setting of septic - Baseline Cr appears to be 0.7 - Renally dose medications and avoid nephrotoxic agents - Plan: Cr increased to 3.5 and GFR 114 --patient will be getting dialysis today - Guajardo catheter in place and monitor urine output closely. -repeat labs in am -Nephrology following GI: #Pneumoperitoneum #Peritonitis secondary to perforated gastric ulcer Patient found to have tender abdomen, rigidity in the epigastrium, chest x-ray showed elevation of hemidiaphragm, CT abdomen showed pneumoperitoneum, concern for perforated viscus, general surgeon Dr. Silva was consulted for emergency laparotomy and possible repair of perforated gastric ulcer. ?Patient was given IV fluid boluses, IV albumin 1 PRBC was ordered ?Antibiotic coverage was broadened to Zosyn to cover for anaerobic and enteric pathogens. - Plan: s/p Exploratory laparotomy & repair of perforated gastric ulcer - 05/15. -Surgery following and on pain management with fentanyl gtt. #Acute Upper GI bleed - stable - most likely secondary to perforated gastric ulcer - Plan: Continue iv Protonix. -GI consulted with plans for upper endoscopy -Hold chemical anticoagulation #GI ppx - pantoprazole #Diet -trickle feeds through NG tube Endo: #Diabetes Mellitus type II - A1C 6.7 % - Hold home glipizide and januvia - Plan: Continue to monitor blood sugars -Blood glucose is above 180 we will start the patient on medium insulin sliding scale Heme/Onc: #Acute anemia, ?Concern for GI bleed, acute drop in hemoglobin, ?In the setting of gastric perforation, 1 pRBC ordered on 05/15 - Plan: Continue to monitor H & H. transfuse for hemoglobin less than 7. Infxs: #Septic Shock - most likely secondary to GI source from perforated gastric ulcer - S/P sepsis fluid resuscitation - Evidence of end organ damage with encephalopathy and ADILSON - 05/13/24 blood cultures preliminarly show no growth at 48 hours - Plan: Severe leukocytosis present. Continue IV Zosyn, follow-up final culture results and repeat hematology panel in am (Skin:) #Pressure Ulcer Prevention Disposition: ICU for AHRF & septic shock requiring mechanical ventilation and pressor support DVT Prophylaxis: Hold chemical anticoagulation in setting of possible GI bleed GI Prophylaxis: Pantoprozol-40 IV Diet: Trickle feeds through NG tube Lines: central line R. IJ, left IJ for dialysis Code status: Full Assessment and plan discussed with attending physician Dr. Travis Rivera (PGY-1)- Internal medicine resident
--- NOTE | 2024-05-17 14:23 | ESPR_ITS ---
Documentation for date of: 05/17/24 Subjective Subjective Interval history: Mr. Castellanos is a [id number] with past medical history of prediabetes, CKD, hypertension, history of ulcers who was admitted to [facility] for sepsis secondary to pneumonia and acute metabolic encephalopathy. Patient was BIBA to the ED after being found unconscious on the floor. According to the son on admission patient's daughter found the patient at 3 AM passed out on the floor and unresponsive. Family is unaware along the patient was on the floor. 2 days ago patient started to develop abdominal pain and weakness all over her body associated with some diarrhea and shortness of breath. Patient's abdominal pain comes and goes from right side to left side of the abdomen. ED course patient was hypertensive tachycardic tachypneic and was saturating 92% on 5 L nasal cannula ED labs significant for WBCs 24.3, bicarb 19.6, glucose 259, lactic acid 2.2, BNP 304, troponin 0.09. 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, colonic diverticulosis, Cervical spine CT showed 3 mm radiolucency in C3 vertebral body Chest CTA showed mild aneurysmal dilatation ascending thoracic aorta AP dimension 4.3 cm and pulmonary artery hypertension with moderate vascular congestion Face CT shows no acute facial fracture, Lumbar spine CT shows no acute lumbar fracture severe acquired spinal stenosis L4-L5, Thoracic spine CT showed no acute fracture Brain MRI with MRA showed equally focal restricted diffusion brainstem medullary level significant stenosis of right P1 P2 segment posterior cerebral artery Postadmission, cardiology was consulted on admission because of elevated troponins, suspicion of NSTEMI type II, patient has acute decompensated heart failure per cardiology evaluation, neurology consulted because of patient's acute metabolic encephalopathy and GI was consulted for suspicion of GI bleed. Eventually on 05/15 rapid response was called for worsening chest pain, patient's map was consistently in 70s, was tachycardic tachypneic. CT angiogram showed pneumoperitoneum multiple air droplets adjacent to and within wall of stomach with suspicion of gastric perforation. General surgery was consulted for emergency surgery and patient had exploratory laparotomy with repair of perforated gastric ulcer with an omental patch. Patient was upgraded to ICU postop for further management patient currently on Levophed and vasopressor due to distributive shock, currently sedated and intubated on mechanical ventilation. Nephrology consulted due to concern of ADILSON. 05/16/24: Patient seen at bedside, patient's daughter present at bedside labs reviewed patient's creatinine 3.0, GFR 16 and BUN 60. Patient's baseline GFR more than 60, does report history of chronic kidney disease. Patient's urine output yesterday 820 mL, there is suspicion of acute kidney injury due to patient's underlying distributive shock versus hypovolemic shock, will continue to monitor patient's urine output and renal panel in a.m., plan of care discussed with patient's family at bedside they want to proceed with dialysis if needed. Will continue to monitor patient. 05/17/24: Patient seen at bedside, patient continues to remain sedated and is on pressors currently, patient's BUN 76, creatinine 3.5, GFR 14. Renal function has continued to decline, patient has minimal urine output only 320 mL in the last 24 hours, patient will be started on dialysis treatment today, will start dialysis post catheter placement. Will monitor labs in a.m., will continue to monitor patient. Exam Vital Signs Temp Pulse Resp BP Pulse Ox O2 Del Method O2 Flow Rate 98.6 F 67 26 H 130/67 95 Mechanical Ventilation 1 05/17/24 13:43 05/17/24 13:46 05/17/24 13:46 05/17/24 13:46 05/17/24 13:46 05/17/24 13:00 05/15/24 08:00 FiO2 30 05/17/24 13:43 Narrative Exam General: Sedated and intubated Eyes: Pupils reactive to light Ears: No visible ear discharge Nose: No visible nasal discharge Mouth/Throat: Dry mucous membranes, no redness, no lesions. Neck: Short neck , non-tender, no cervical lymphadenopathy. Lungs: Mechanically ventilated, bronchial breath sounds Cardio: Normal S1/S2, regular rhythm, systolic murmurs, no JVD Abdomen: Soft, non-tender, no palpable masses, peristalsis present, no guarding or rebound. Surgical scar covered with clean dressing. Extremities: Symmetrical, no significant deformities, 2+ peripheral edema , non- tender, peripheral pulses presents. Skin: No rashes, no lesions, warm to touch. Neuro: Patient is currently sedated Objective Labs 05/19/24 05:27 05/19/24 05:27 Labs: Laboratory Results - last 24 hr 05/16/24 05/17/24 05/17/24 20:49 04:03 05:41 WBC 25.1 H D RBC 2.87 L Hgb 7.9 L Hct 23.7 L MCV 83 MCH 27.5 MCHC 33.3 RDW Std Deviation 47.0 H Plt Count 206 D Neut % (Auto) 91 H Lymph % (Auto) 4 L [place] % (Auto) 3 Eos % (Auto) 0 Baso % (Auto) 0 Neut # (Auto) 22.7 H Lymph # (Auto) 1.1 [place] # (Auto) 0.9 H Eos # (Auto) 0.0 Baso # (Auto) 0.1 Immature Gran # (Auto) 0.38 H Absolute Nucleated RBC 0.39 H Immature Gran % 2 H Nucleated RBC % 2 H Puncture Site Right Radial ABG pH 7.38 D ABG pCO2 28 L ABG pO2 85 ABG HCO3 17 L ABG O2 Saturation 97 ABG Base Excess -8 L FiO2 30 Sodium 145 Potassium 4.1 D Chloride 114 H Carbon Dioxide 18.3 L Anion Gap 13 BUN 76 H Creatinine 3.5 H D Estim Creat Clear Calc 14.0 L eGFR 14 L* BUN/Creatinine Ratio 22 H Glucose 187 H Calculated Osmolality 316 H Calcium 8.5 Corrected Calcium 9.5 Phosphorus 4.9 Magnesium 2.6 Total Bilirubin 0.7 D AST 140 H ALT 142 H Alkaline Phosphatase 66 Total Protein 4.8 L Albumin 2.7 L Globulin 2.1 L Albumin/Globulin Ratio 1.3 Ur Collection Type Catheter Urine Color Yellow Urine Clarity Turbid A Urine pH 5.5 Ur Specific [place] 1.048 H Urine Protein 1+ A Urine Glucose (UA) Negative Urine Ketones Negative Urine Blood Trace Urine Nitrite Negative Urine Bilirubin Negative Urine Urobilinogen (Auto) Negative Ur Leukocyte Esterase Negative Urine RBC 37 H Urine WBC 9 H Ur Squamous Epith Cells 0 Uric Acid Crystals 4+ A Urine Bacteria Rare Urine Yeast (Budding) Present A Ur Random Creatinine 117 Ur Random Sodium < 10.0 L ABG Interpretation ABG results: 05/13/24 05/15/24 05/15/24 08:29 15:28 16:03 ABG pH 7.39 7.05 L* D 7.17 L* D ABG pCO2 31 L 63 H D 45 D ABG pO2 78 L 38 L* D 84 D ABG HCO3 19 L 18 L 16 L ABG O2 Saturation 96 59 L 96 ABG Base Excess -5 L -12 L -11 L 05/16/24 05/17/24 04:38 04:03 ABG pH 7.28 L D 7.38 D ABG pCO2 34 D 28 L ABG pO2 96 85 ABG HCO3 16 L 17 L ABG O2 Saturation 98 97 ABG Base Excess -10 L -8 L Quality Measures Quality Measures VTE prophylaxis Advance care planning discussed with:: patient Assessment & Plan Assessment Current Active Medications: Generic Name Dose Route Start Last Admin Trade Name Freq PRN Reason Stop Dose Admin Amiodarone HCl 200 mg 05/16/24 12:00 05/17/24 08:33 Amiodarone Hcl 200 Mg Tablet PO 06/15/24 11:59 Not Given BID [facility] Heparin Sodium (Porcine) 5,000 unit 05/16/24 14:00 05/17/24 05:46 Heparin Sod Inj 5000 Unit/Ml Vial SC 05/30/24 13:59 5,000 unit Q8HR ANGELICA Administration Hydromorphone HCl 0.5 mg 05/14/24 15:35 05/15/24 05:10 Hydromorphone Inj 2 Mg/Ml Vial IVP 05/19/24 15:34 0.5 mg Q6HR PRN Administration PAIN SCALE 7-10 (Severe Azithromycin 500 mg/ Sodium 250 mls @ 250 mls/hr 05/14/24 09:00 05/17/24 09:34 Chloride IV 05/21/24 08:59 Infused QDAY ANGELICA Infusion Protocol Propofol 1,000 mg in 100 mls @ 2.466 mls/hr 05/15/24 10:28 05/17/24 14:00 Diprivan Ivpb IV 06/14/24 10:27 5 mcg/kg/min .Q24H PRN 2.466 mls/hr PER PROTOCOL Titration Protocol 5 MCG/KG/MIN Fentanyl Citrate 2,500 mcg in 250 mls @ 2.5 mls/hr 05/15/24 10:28 05/17/24 14:00 Sublimaze Inj 2,500 Mcg/250 Ml Bag IV 05/20/24 10:27 25 mcg/hr .Q24H PRN 2.5 mls/hr PER PROTOCOL Titration Protocol 25 MCG/HR Norepinephrine Bitartrate 16 mg in 250 mls @ 3.853 mls/hr 05/15/24 10:29 05/17/24 14:00 Levophed In Ns 16mg/250ml IV 06/14/24 10:28 0.04 mcg/kg/min .Q24H PRN 3.082 mls/hr PER protocol Titration Protocol 0.05 MCG/KG/MIN Vasopressin/Sodium Chloride 20 unit in 100 mls @ 9 mls/hr 05/15/24 17:56 05/17/24 03:45 Vasostrict/Ns Ivpb IV 06/14/24 17:55 0.03 unit/min .Q11H7M PRN 9 mls/hr PER PROTOCOL Administration Protocol 0.03 UNIT/MIN Amiodarone HCl/Dextrose 360 mg in 200 mls @ 16.667 mls/hr 05/16/24 17:26 05/17/24 05:47 Nexterone Ivpb IV 05/17/24 17:25 16.667 mls/hr .Q12H ANGELICA Administration Piperacillin Sod/Tazobactam 100 mls @ 200 mls/hr 05/16/24 22:00 05/17/24 09:07 Sod 4.5 gm/ Sodium Chloride IV 05/23/24 21:59 Infused Q12HR ANGELICA Infusion Ondansetron HCl 4 mg 05/13/24 11:58 05/14/24 12:31 Ondansetron Inj 2 Mg/Ml Inj 2 Ml IV 06/12/24 11:57 4 mg Q6H PRN Administration NAUSEA OR VOMITING Protocol Pantoprazole Sodium 40 mg 05/15/24 21:00 05/17/24 08:22 Pantoprazole Inj 40 Mg Vial IVP 06/14/24 20:59 40 mg BID ANGELICA Administration Pharmacy Consult 1 each 05/16/24 10:27 Pharmacy Renal Dose Adjustment 1 Ea XX 06/15/24 10:26 PRN PRN CONSULT Plan Summary: Mr. Castellanos is a [id number] with past medical history of prediabetes, CKD, hypertension, history of ulcers who was admitted to [facility] for sepsis secondary to pneumonia and acute metabolic encephalopathy. Patient is currently sedated intubated in ICU status post exploratory laparotomy with repair of perforated gastric ulcer with an omental patch. Nephrology consulted for acute kidney injury. #Acute kidney injury #Acute Tubular Necrosis 2/2 shock Patient does report history of chronic kidney disease secondary to hypertension, baseline GFR noted to be more than 60, patient presented with GFR 45, improved initially to more than 60. Patient did have ADILSON on 05/15 with creatinine 2.4 since then creatinine worsened to 3.0 and nephrology was consulted. BUN 60, creatinine 3.0, GFR 16 today, patient's urine output 820 mL. Patient is currently on vasopressors maintaining MAP of more than 60. Urine analysis significant for protein 1+, specific gravity 1.048, RBC 37, WBC 9, uric acid crystals 4+, yeast present, urine random sodium less than 10. FENa 0.2 etiology prerenal. Family at bedside informed of care plan, agrees with dialysis intervention if needed Plan: -Will start patient on dialysis post catheter placement -Renally dose medications -Avoid nephrotoxic agents #Metabolic acidosis #Lactic Acidosis 05/16-pH 7.28, bicarb 16, in setting of shock 05/17-pH 7.38, bicarb 17 -Hemodialysis treatment today #Acute Encephalopathy #Distributive shock #Acute decompensated HF #Elevated Troponin #Hyperlipidemia #Primary Hypertension #Acute Hypoxic Respiratory failure #Pneumoperitoneum #Peritonitis secondary to perforated gastric ulcer #Acute Upper GI bleed #Diabetes Mellitus type II #Acute anemia Management as per primary team. Case discussed with Attending Dr. August. Geovani Mahmood PGY1 Attending Provider Attestation/Addendum Patient seen and examined with resident physician Dr. Mahmood. Note reviewed, agree with findings and recommendations. Patient currently seen in ICU. Family at bedside. Currently on the ventilator. Patient with sepsis, peritonitis secondary to perforated gastric ulcer which was repaired. Currently on pressors. Urine output trending down. BUN and creatinine are significantly elevated. Suspect patient going towards ATN. Will monitor closely urine output and azotemia. Family requesting all aggressive measures including dialysis if indicated. No need for emergency dialysis. 1 amp of bicarbonate given. If no improvement in azotemia/decreasing urine output-will plan for renal replacement therapy in the next 24 hours. 05/17 patient remains in ICU on ventilator. Urine output very minimal. Azotemia worsened. Decided to proceed with dialysis. Vas-Cath placed by ICU team Ordered dialysis. Patient currently on pressors Hemodialysis for 2.5 hours, blood flow 200, 2K, ultrafiltration 0 L, Epogen 6000, no heparin ordered. Plan of care discussed with the dialysis nurse. Please see dialysis flowsheet for further details. Plan of care discussed with ICU team. Thank you Dr. Robles for allowing me to participate in the care of Ms. Castellanos
--- NOTE | 2024-05-17 15:02 | PC.SS ---
Update: Patient receiving dialysis session today. Patient's 1st session. Cardiology consulting.
[2024-05-17] MEDS: HEPARIN SOD INJ 1000 UNIT/ML VIAL 10 ML 2500 UNIT INDWELLCAT (17:03)
--- NOTE | 2024-05-17 17:09 | PC.RT ---
PER DR MAYO PATIENT PUT BACK ON SBT @1515 PS 01/02 FIO@30%, PATIENT PASSED SBT AND EXTUBATED @1530
--- NOTE | 2024-05-17 17:54 | PD.RESPRO ---
Documentation for date of: 05/17/24 Exam Vital Signs Temp Pulse Resp BP Pulse Ox O2 Del Method O2 Flow Rate 97.9 F 70 26 H 131/61 H 97 Mechanical Ventilation 1 05/17/24 16:22 05/17/24 17:15 05/17/24 17:15 05/17/24 17:15 05/17/24 17:15 05/17/24 17:00 05/15/24 08:00 FiO2 30 05/17/24 17:00 Objective Labs 05/17/24 05:41 05/17/24 05:41 Labs: Laboratory Results - last 24 hr 05/16/24 05/17/24 05/17/24 20:49 04:03 05:41 WBC 25.1 H D RBC 2.87 L Hgb 7.9 L Hct 23.7 L MCV 83 MCH 27.5 MCHC 33.3 RDW Std Deviation 47.0 H Plt Count 206 D Neut % (Auto) 91 H Lymph % (Auto) 4 L [place] % (Auto) 3 Eos % (Auto) 0 Baso % (Auto) 0 Neut # (Auto) 22.7 H Lymph # (Auto) 1.1 [place] # (Auto) 0.9 H Eos # (Auto) 0.0 Baso # (Auto) 0.1 Immature Gran # (Auto) 0.38 H Absolute Nucleated RBC 0.39 H Immature Gran % 2 H Nucleated RBC % 2 H Puncture Site Right Radial ABG pH 7.38 D ABG pCO2 28 L ABG pO2 85 ABG HCO3 17 L ABG O2 Saturation 97 ABG Base Excess -8 L FiO2 30 Sodium 145 Potassium 4.1 D Chloride 114 H Carbon Dioxide 18.3 L Anion Gap 13 BUN 76 H Creatinine 3.5 H D Estim Creat Clear Calc 14.0 L eGFR 14 L* BUN/Creatinine Ratio 22 H Glucose 187 H Calculated Osmolality 316 H Calcium 8.5 Corrected Calcium 9.5 Phosphorus 4.9 Magnesium 2.6 Total Bilirubin 0.7 D AST 140 H ALT 142 H Alkaline Phosphatase 66 Total Protein 4.8 L Albumin 2.7 L Globulin 2.1 L Albumin/Globulin Ratio 1.3 Ur Collection Type Catheter Urine Color Yellow Urine Clarity Turbid A Urine pH 5.5 Ur Specific [place] 1.048 H Urine Protein 1+ A Urine Glucose (UA) Negative Urine Ketones Negative Urine Blood Trace Urine Nitrite Negative Urine Bilirubin Negative Urine Urobilinogen (Auto) Negative Ur Leukocyte Esterase Negative Urine RBC 37 H Urine WBC 9 H Ur Squamous Epith Cells 0 Uric Acid Crystals 4+ A Urine Bacteria Rare Urine Yeast (Budding) Present A Ur Random Creatinine 117 Ur Random Sodium < 10.0 L ABG Interpretation ABG results: 05/13/24 05/15/24 05/15/24 08:29 15:28 16:03 ABG pH 7.39 7.05 L* D 7.17 L* D ABG pCO2 31 L 63 H D 45 D ABG pO2 78 L 38 L* D 84 D ABG HCO3 19 L 18 L 16 L ABG O2 Saturation 96 59 L 96 ABG Base Excess -5 L -12 L -11 L 05/16/24 05/17/24 04:38 04:03 ABG pH 7.28 L D 7.38 D ABG pCO2 34 D 28 L ABG pO2 96 85 ABG HCO3 16 L 17 L ABG O2 Saturation 98 97 ABG Base Excess -10 L -8 L Quality Measures Quality Measures VTE prophylaxis Assessment & Plan Assessment Current Active Medications: Generic Name Dose Route Start Last Admin Trade Name Freq PRN Reason Stop Dose Admin Amiodarone HCl 200 mg 05/16/24 12:00 05/17/24 08:33 Amiodarone Hcl 200 Mg Tablet PO 06/15/24 11:59 Not Given BID [facility] Heparin Sodium (Porcine) 5,000 unit 05/16/24 14:00 05/17/24 14:42 Heparin Sod Inj 5000 Unit/Ml Vial SC 05/30/24 13:59 Not Given Q8HR [facility] Heparin Sodium (Porcine) 2,500 unit 05/17/24 15:52 05/17/24 17:03 Heparin Sod Inj 1000 Unit/Ml Vial 10 Ml INDWELLCAT 05/31/24 15:51 2,500 unit PRN PRN Administration DIALYSIS Hydromorphone HCl 0.5 mg 05/14/24 15:35 05/15/24 05:10 Hydromorphone Inj 2 Mg/Ml Vial IVP 05/19/24 15:34 0.5 mg Q6HR PRN Administration PAIN SCALE 7-10 (Severe Azithromycin 500 mg/ Sodium 250 mls @ 250 mls/hr 05/14/24 09:00 05/17/24 09:34 Chloride IV 05/21/24 08:59 Infused QDAY ANGELICA Infusion Protocol Propofol 1,000 mg in 100 mls @ 2.466 mls/hr 05/15/24 10:28 05/17/24 17:00 Diprivan Ivpb IV 06/14/24 10:27 5 mcg/kg/min .Q24H PRN 2.466 mls/hr PER PROTOCOL Titration Protocol 5 MCG/KG/MIN Fentanyl Citrate 2,500 mcg in 250 mls @ 2.5 mls/hr 05/15/24 10:28 05/17/24 17:00 Sublimaze Inj 2,500 Mcg/250 Ml Bag IV 05/20/24 10:27 25 mcg/hr .Q24H PRN 2.5 mls/hr PER PROTOCOL Titration Protocol 25 MCG/HR Norepinephrine Bitartrate 16 mg in 250 mls @ 3.853 mls/hr 05/15/24 10:29 05/17/24 17:25 Levophed In Ns 16mg/250ml IV 06/14/24 10:28 0.02 mcg/kg/min .Q24H PRN 1.541 mls/hr PER protocol Titration Protocol 0.05 MCG/KG/MIN Vasopressin/Sodium Chloride 20 unit in 100 mls @ 9 mls/hr 05/15/24 17:56 05/17/24 14:59 Vasostrict/Ns Ivpb IV 06/14/24 17:55 0.03 unit/min .Q11H7M PRN 9 mls/hr PER PROTOCOL Administration Protocol 0.03 UNIT/MIN Piperacillin Sod/Tazobactam 100 mls @ 200 mls/hr 05/16/24 22:00 05/17/24 09:07 Sod 4.5 gm/ Sodium Chloride IV 05/23/24 21:59 Infused Q12HR ANGELICA Infusion Albumin Human 25 gm in 100 mls @ 100 mls/min 05/17/24 15:52 Albuminar-25 Ivpb IV 05/20/24 15:51 PRN PRN DIALYSIS Ondansetron HCl 4 mg 05/13/24 11:58 05/14/24 12:31 Ondansetron Inj 2 Mg/Ml Inj 2 Ml IV 06/12/24 11:57 4 mg Q6H PRN Administration NAUSEA OR VOMITING Protocol Pantoprazole Sodium 40 mg 05/15/24 21:00 05/17/24 08:22 Pantoprazole Inj 40 Mg Vial IVP 06/14/24 20:59 40 mg BID ANGELICA Administration Pharmacy Consult 1 each 05/16/24 10:27 Pharmacy Renal Dose Adjustment 1 Ea XX 06/15/24 10:26 PRN PRN CONSULT
--- NOTE | 2024-05-17 20:25 | PD.IMPROG ---
Documentation for date of: 05/17/24 Subjective Subjective Interval history: Patient seen in the ICU this morning. No overnight events. Patient continues to be mechanically ventilated and sedated Patient continues to be on pressor support Patient was in atrial fibrillation on 1217 noted on WANG [address] depressions in anterolateral leads which are mostly rate related ST depressions. Echo ordered to rule out postoperative AR and showed no regional wall motion abnormalities and EF is 55 to 60% again and see detailed echo report below. Patient now converted to normal sinus rhythm after the amiodarone drip and patient is already started on amiodarone 200 mg p.o. twice daily. Recommend to check EKG to document the normal sinus rhythm and also to check the QTc as the patient is on amiodarone. No heparin drip as patient has perforated ulcer. Discussed with GI and surgery went to start anticoagulation with heparin drip initially and then later on Eliquis 5 mg twice daily No further troponins recommended. Mild troponin elevation is mostly secondary to NSTEMI type II in the setting of supply/demand mismatch. Patient will need further ischemic evaluation but can be done as outpatient when she improves from the present medical conditions recommend to replete potassium and magnesium to keep above 4 and 2 respectively to avoid any further arrhythmias. Normal LV size and function with an estimated EF of 55 to 60%. Mild LVH. Stage I diastolic dysfunction. RV not visualized appears to have normal size and function. 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 Mild AV Sclerosis without stenosis. Exam Vital Signs Temp Pulse Resp BP Pulse Ox O2 Del Method O2 Flow Rate 98.8 F 70 23 H 126/73 97 Mechanical Ventilation 1 05/17/24 19:00 05/17/24 20:15 05/17/24 20:15 05/17/24 20:15 05/17/24 20:15 05/17/24 18:01 05/15/24 08:00 FiO2 30 05/17/24 18:01 Narrative Exam General: Sedated and intubated Eyes: Pupils reactive to light Ears: No visible ear discharge Nose: No visible nasal discharge Mouth/Throat: Dry mucous membranes, no redness, no lesions. Neck: Short neck , non-tender, no cervical lymphadenopathy. Lungs: Mechanically ventilated, bronchial breath sounds Cardio: Normal S1/S2, regular rhythm, systolic murmurs, no JVD Abdomen: Soft, non-tender, no palpable masses, peristalsis present, no guarding or rebound. Surgical scar covered with clean dressing. Extremities: Symmetrical, no significant deformities, trace peripheral edema , non-tender, peripheral pulses presents. Skin: No rashes, no lesions, warm to touch. Neuro: Patient is currently sedated Objective Labs 05/18/24 05:25 05/18/24 05:25 Labs: Laboratory Results - last 24 hr 05/16/24 05/17/24 05/17/24 20:49 04:03 05:41 WBC 25.1 H D RBC 2.87 L Hgb 7.9 L Hct 23.7 L MCV 83 MCH 27.5 MCHC 33.3 RDW Std Deviation 47.0 H Plt Count 206 D Neut % (Auto) 91 H Lymph % (Auto) 4 L [place] % (Auto) 3 Eos % (Auto) 0 Baso % (Auto) 0 Neut # (Auto) 22.7 H Lymph # (Auto) 1.1 [place] # (Auto) 0.9 H Eos # (Auto) 0.0 Baso # (Auto) 0.1 Immature Gran # (Auto) 0.38 H Absolute Nucleated RBC 0.39 H Immature Gran % 2 H Nucleated RBC % 2 H Puncture Site Right Radial ABG pH 7.38 D ABG pCO2 28 L ABG pO2 85 ABG HCO3 17 L ABG O2 Saturation 97 ABG Base Excess -8 L FiO2 30 Sodium 145 Potassium 4.1 D Chloride 114 H Carbon Dioxide 18.3 L Anion Gap 13 BUN 76 H Creatinine 3.5 H D Estim Creat Clear Calc 14.0 L eGFR 14 L* BUN/Creatinine Ratio 22 H Glucose 187 H Calculated Osmolality 316 H Calcium 8.5 Corrected Calcium 9.5 Phosphorus 4.9 Magnesium 2.6 Total Bilirubin 0.7 D AST 140 H ALT 142 H Alkaline Phosphatase 66 Total Protein 4.8 L Albumin 2.7 L Globulin 2.1 L Albumin/Globulin Ratio 1.3 Ur Collection Type Catheter Urine Color Yellow Urine Clarity Turbid A Urine pH 5.5 Ur Specific [place] 1.048 H Urine Protein 1+ A Urine Glucose (UA) Negative Urine Ketones Negative Urine Blood Trace Urine Nitrite Negative Urine Bilirubin Negative Urine Urobilinogen (Auto) Negative Ur Leukocyte Esterase Negative Urine RBC 37 H Urine WBC 9 H Ur Squamous Epith Cells 0 Uric Acid Crystals 4+ A Urine Bacteria Rare Urine Yeast (Budding) Present A Ur Random Creatinine 117 Ur Random Sodium < 10.0 L ABG Interpretation ABG results: 05/13/24 05/15/24 05/15/24 08:29 15:28 16:03 ABG pH 7.39 7.05 L* D 7.17 L* D ABG pCO2 31 L 63 H D 45 D ABG pO2 78 L 38 L* D 84 D ABG HCO3 19 L 18 L 16 L ABG O2 Saturation 96 59 L 96 ABG Base Excess -5 L -12 L -11 L 05/16/24 05/17/24 04:38 04:03 ABG pH 7.28 L D 7.38 D ABG pCO2 34 D 28 L ABG pO2 96 85 ABG HCO3 16 L 17 L ABG O2 Saturation 98 97 ABG Base Excess -10 L -8 L Assessment & Plan A&P Narrative 69 y/o female with PMH of essential hypertension, gastric ulcers, hyperlipidemia, and DM2 was admitted to the hospital on 05/13/2024 due to acute encephalopathy likely secondary to sepsis secondary to CAP. 1. NSTEMI Type II 2. A-Fib with RVR, New onset -Patient has had elevated troponins from previous admissions with most recent on 11/17/2023 of 0.097 and prior to this on 12/28/2021 was 0.065 -On this admission intial troponins 0.09, uptrended to 0.239 and downtrended. -NSTEMI type II most likley in the setting of sepsis as patient has no chest pain. -EKG on this admission showed LVH with strain pattern and sinus tachycardia which is similiar to prior EKG on 11/22/2023 -CLARY ACS score of 115 points, 7% probability of -Patient in this afternoon developed A-Fib with RVR with ST depressions in anterolateral leads which are mostly rate related ST depressions -Echo ordered to rule out post operative AR and to evaluate for any new regional wall motion abnormalities and to reevaluate bradycardia contraction Plan: -No heparin drip at this time given the severe anemia and perforated gastric ulcer -Recommend to start Amio drip and Amio 200mg P.O. BID. -No anticoagulation given perforated ulcer -Recommend to place patient on high intensity statin and aspirin if GI and general surgery are okay with starting aspirin and there are no other contraindications -Recommend no further troponins as elevated troponins most likely secondary to sepsis from type II NSTEMI. -Patient will need further ischemic evaluation which can be done when she is more stable and can be pursued as outpatient 05/18/2024: Patient continues to be mechanically ventilated and sedated Patient continues to be on pressor support Patient was in atrial fibrillation on 1217 noted on WANG [address] depressions in anterolateral leads which are mostly rate related ST depressions. Echo ordered to rule out postoperative AR and showed no regional wall motion abnormalities and EF is 55 to 60% again and see detailed echo report below. Patient now converted to normal sinus rhythm after the amiodarone drip and patient is already started on amiodarone 200 mg p.o. twice daily. Recommend to check EKG to document the normal sinus rhythm and also to check the QTc as the patient is on amiodarone. No heparin drip as patient has perforated ulcer. Discussed with GI and surgery went to start anticoagulation with heparin drip initially and then later on Eliquis 5 mg twice daily No further troponins recommended. Mild troponin elevation is mostly secondary to NSTEMI type II in the setting of supply/demand mismatch. Patient will need further ischemic evaluation but can be done as outpatient when she improves from the present medical conditions recommend to replete potassium and magnesium to keep above 4 and 2 respectively to avoid any further arrhythmias. Normal LV size and function with an estimated EF of 55 to 60%. Mild LVH. Stage I diastolic dysfunction. RV not visualized appears to have normal size and function. 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 Mild AV Sclerosis without stenosis. 3. Acute decompensated heart failure (EF 60-65%) 4.Essential Hypertension -Patient has some SOB, trace edema and initial BNP was 309 -CXR did show some vascular congestion -Echo from 04/26/2024 had the following findings: Normal LV size and function. Mild LVH. Estimated EF 60-65% Normal RV size and function. Mild to moderate mitral valve stenosis, mean gradient 8mmHg. Moderate MAC. Mild AI, MR, TR. Mild AV sclerosis without stenosis Plan: -Hold diuresis in the setting of sepsis and soft BP, but if BP stabilizes will need diuresis -Strict CACHORRO's -Fluid restrictions -Low sodium diet -Daily weights -Recommend to potassium and magnessium above 4 and 2 respectively to avoid any arrhythmias. 5. Sepsis 2/2 perforated gastric ulcer 6. Community acquired pneumonia 7.Acute Encephalopathy 8. perforated gastric ulcer 9. Acute blood loss anemia 10. GI bleed -Continue current management as per primary care team 11.DM2 12. Hyperlipidemia -Continue current management as per primary care team Management of rest of the medical conditions as per primary team and other consultants. Thank you for the consult and allowing me to participate in the care of the patient. Cardiology will continue to follow. Jalen Davis M.D. Interventional Cardiology Time Spent With Patient Time: Total time spent is greater than 50% in coordination of care (as documented) at patient's floor/unit and/or counseling patient:
[2024-05-17] MEDS: AMIODARONE HCL 200 MG TABLET PO (21:02)
[2024-05-18] VITALS (107 sets, daily range): BP systolic 83–154; BP diastolic 43–102; PULSE 76–102; RESP 9–32; TEMP 36.1–37.5; O2SAT 89–99; BMI 39.4
[2024-05-18] MEDS: Norepinephrine/NS 16mg/250ml 16 MG/250 ML BAG 3.853 MG IV (01:40)
[2024-05-18 04:29] LABS: Base Excess 0 (-3-3); HCO3 23 mEq/L (20-26); Inspired Oxygen, FIO2 21 %; O2 Saturation 94 % (91-98); PCO2 30 mmHg (32.0-48.0); PO2 66 mmHg (83-108); pH, Arterial 7.49 (7.35-7.45)
[2024-05-18 04:33] LABS: Allen Test Performed/OK; Puncture Site Right Radial
[2024-05-18] MEDS: PROPOFOL 1,000 MG IVPB 1,000 MG/100 ML VIAL 2.466 MG IV (05:00)
[2024-05-18] MEDS: HEPARIN SOD INJ 5000 UNIT/ML VIAL SC ×3 (05:02→21:12)
[2024-05-18 05:42] LABS: Basophils % (Auto) 0 % (0-2.5); Eosinophils # (Auto) 0.1 Thou/mm3 (0.0-0.5); Eosinophils % (Auto) 1 % (0-10); Immature Granulocytes % (Auto) 1 % (0-0); Immature Granulocytes Auto 0.22 Thou/mm3 (0.00-0.00); Lymphocytes % (Auto) 5 % (10-50); Mean Corpuscular Hemoglobin 27.1 pg (25.0-35.0); Mean Corpuscular Volume 82 fL (80-100); Monocytes # (Auto) 0.7 Thou/mm3 (0.0-0.8); Monocytes % (Auto) 3 % (0-12); Neutrophils # (Auto) 17.9 Thou/mm3 (1.8-7.7); Neutrophils % (Auto) 90 % (37-80); Nucleated Red Blood Cell # 0.27 Thou/mm3 (0.00-0.00); Nucleated Red Blood Cell % 1 /100 WBC (0); Platelet Count 196 Thou/mm3 (140-440); RDW Standard Deviation 46.5 fL (36.4-46.3); White Blood Count 19.9 Thou/mm3 (3.6-11.0)
[2024-05-18 05:49] LABS: Hemoglobin 6.5 g/dL (12.0-16.0)
[2024-05-18 05:50] LABS: Hematocrit 19.7 % (36.0-46.0)
[2024-05-18 06:48] LABS: Alanine Aminotransferase 139 U/L (10-49); Albumin, Serum 2.5 gm/dL (3.4-4.8); Albumin/Globulin Ratio 1.1 (1.2-2.2); Alkaline Phosphatase 78 U/L (46-116); Anion Gap 10 (7-16); Aspartate Amino Transferase 116 U/L (0-34); BUN/Creatinine Ratio 18 Ratio (12-20); Bilirubin,Total 0.9 mg/dL (0.3-1.2); Blood Urea Nitrogen 50 mg/dL (9-23); Calcium 8.5 mg/dL (8.3-10.6); Calcium (Corrected) 9.7 mg/dL (8.5-10.1); Carbon Dioxide 24.8 mMol/L (20.0-31.0); Chloride 109 mMol/L (98-107); Creatinine (Component) 2.8 mg/dL (0.6-1.3); Estimated Creatinine Clearance 17.9 mL/min (>60); Globulin 2.2 gm/dL (2.3-3.5); Glucose 118 mg/dL (74-106); Magnesium 2.3 mg/dL (1.6-2.6); Osmolality,Calculated 301 (275-295); Phosphorous 3.2 mg/dL (2.4-5.1); Potassium 3.1 mMol/L (3.4-5.1); Sodium 144 mMol/L (136-145); Total Protein 4.7 gm/dL (5.7-8.2); eGFR 18 See Note
[2024-05-18] MEDS: POTASSIUM CHLORIDE 10% 20 MEQ/15 ML UDC 40 MEQ NG (08:11)
[2024-05-18] MEDS: PANTOPRAZOLE INJ 40 MG VIAL IVP ×2 (08:11→20:23)
[2024-05-18] MEDS: AMIODARONE HCL 200 MG TABLET PO ×2 (08:11→20:24)
[2024-05-18] MEDS: AZITHROMYCIN INJ 500 MG in SODIUM CHLORIDE 0.9% 250 ML 250 ML 250 MG IV (08:12)
--- NOTE | 2024-05-18 08:33 | PC.NURSE ---
1st unit PRBC started by ICU, taken over by dialysis. PRBC infusing without incident.
--- NOTE | 2024-05-18 08:33 | PD.RESPRO ---
Documentation for date of: 05/18/24 Subjective Subjective Interval history: patient was examined bedside this morning , she is still Intubated and mechanically ventillated , receving dialysis Exam Vital Signs Temp Pulse Resp BP Pulse Ox O2 Del Method O2 Flow Rate 99.3 F 92 22 H 123/57 L 96 Mechanical Ventilation 1 05/18/24 08:07 05/18/24 08:30 05/18/24 08:07 05/18/24 08:30 05/18/24 08:07 05/17/24 18:01 05/15/24 08:00 FiO2 35 05/18/24 08:07 Narrative Exam General: intubated and MV HEENT: Dry mucous membranes, pale conjunctiva, EOMI, PERRLA, Cardiovascular: S1, S2, systolic murmur appreciated, radial pulses +2 bilat, RRR Pulmonary: CTAB bilat no cough, no wheezing GI: Present soft, distended, wound (midline wound with dressing c/d/i) and drain (BALAJI with serosanguinous output) Extremities: No presence of trace or pitting edema in lower extremities bilaterally, dorsalis pedis pulses +2 bilaterally Neuro: intubated and MV Objective Labs 05/20/24 04:34 05/20/24 04:34 Labs: Laboratory Results - last 24 hr 05/16/24 05/18/24 05/18/24 01:21 04:20 05:25 WBC 19.9 H D RBC 2.40 L Hgb 6.5 L* Hct 19.7 L* MCV 82 MCH 27.1 MCHC 33.0 RDW Std Deviation 46.5 H Plt Count 196 Neut % (Auto) 90 H Lymph % (Auto) 5 L [place] % (Auto) 3 Eos % (Auto) 1 Baso % (Auto) 0 Neut # (Auto) 17.9 H Lymph # (Auto) 1.0 [place] # (Auto) 0.7 Eos # (Auto) 0.1 Baso # (Auto) 0.0 Immature Gran # (Auto) 0.22 H Absolute Nucleated RBC 0.27 H Immature Gran % 1 H Nucleated RBC % 1 H Puncture Site Right Radial ABG pH 7.49 H D ABG pCO2 30 L ABG pO2 66 L ABG HCO3 23 ABG O2 Saturation 94 ABG Base Excess 0 FiO2 21 Sodium 144 Potassium 3.1 L D Chloride 109 H Carbon Dioxide 24.8 Anion Gap 10 BUN 50 H Creatinine 2.8 H D Estim Creat Clear Calc 17.9 L eGFR 18 L BUN/Creatinine Ratio 18 Glucose 118 H D Calculated Osmolality 301 H Calcium 8.5 Corrected Calcium 9.7 Phosphorus 3.2 Magnesium 2.3 Total Bilirubin 0.9 AST 116 H ALT 139 H Alkaline Phosphatase 78 Total Protein 4.7 L Albumin 2.5 L Globulin 2.2 L Albumin/Globulin Ratio 1.1 L Blood Type O Positive Antibody Screen NEGATIVE Blood Bank Wristband ID Yes Crossmatch See Detail ABG Interpretation ABG results: 05/13/24 05/15/24 05/15/24 08:29 15:28 16:03 ABG pH 7.39 7.05 L* D 7.17 L* D ABG pCO2 31 L 63 H D 45 D ABG pO2 78 L 38 L* D 84 D ABG HCO3 19 L 18 L 16 L ABG O2 Saturation 96 59 L 96 ABG Base Excess -5 L -12 L -11 L 05/16/24 05/17/24 05/18/24 04:38 04:03 04:20 ABG pH 7.28 L D 7.38 D 7.49 H D ABG pCO2 34 D 28 L 30 L ABG pO2 96 85 66 L ABG HCO3 16 L 17 L 23 ABG O2 Saturation 98 97 94 ABG Base Excess -10 L -8 L 0 Quality Measures Quality Measures VTE prophylaxis Advance care planning discussed with:: patient Assessment & Plan Assessment Current Active Medications: Generic Name Dose Route Start Last Admin Trade Name Freq PRN Reason Stop Dose Admin Amiodarone HCl 200 mg 05/16/24 12:00 05/18/24 08:11 Amiodarone Hcl 200 Mg Tablet PO 06/15/24 11:59 200 mg BID ANGELICA Administration Heparin Sodium (Porcine) 5,000 unit 05/16/24 14:00 05/18/24 05:02 Heparin Sod Inj 5000 Unit/Ml Vial SC 05/30/24 13:59 5,000 unit Q8HR ANGELICA Administration Heparin Sodium (Porcine) 2,500 unit 05/17/24 15:52 05/17/24 17:03 Heparin Sod Inj 1000 Unit/Ml Vial 10 Ml INDWELLCAT 05/31/24 15:51 2,500 unit PRN PRN Administration DIALYSIS Hydromorphone HCl 0.5 mg 05/14/24 15:35 05/15/24 05:10 Hydromorphone Inj 2 Mg/Ml Vial IVP 05/19/24 15:34 0.5 mg Q6HR PRN Administration PAIN SCALE 7-10 (Severe Azithromycin 500 mg/ Sodium 250 mls @ 250 mls/hr 05/14/24 09:00 05/18/24 08:12 Chloride IV 05/21/24 08:59 250 mls/hr QDAY ANGELICA Administration Protocol Propofol 1,000 mg in 100 mls @ 2.466 mls/hr 05/15/24 10:28 05/18/24 06:00 Diprivan Ivpb IV 06/14/24 10:27 5 mcg/kg/min .Q24H PRN 2.466 mls/hr PER PROTOCOL Titration Protocol 5 MCG/KG/MIN Fentanyl Citrate 2,500 mcg in 250 mls @ 2.5 mls/hr 05/15/24 10:28 05/18/24 06:00 Sublimaze Inj 2,500 Mcg/250 Ml Bag IV 05/20/24 10:27 25 mcg/hr .Q24H PRN 2.5 mls/hr PER PROTOCOL Titration Protocol 25 MCG/HR Norepinephrine Bitartrate 16 mg in 250 mls @ 3.853 mls/hr 05/15/24 10:29 05/18/24 06:00 Levophed In Ns 16mg/250ml IV 06/14/24 10:28 0 mcg/kg/min .Q24H PRN 0 mls/hr PER protocol Titration Protocol 0.05 MCG/KG/MIN Vasopressin/Sodium Chloride 20 unit in 100 mls @ 9 mls/hr 05/15/24 17:56 05/17/24 22:30 Vasostrict/Ns Ivpb IV 06/14/24 17:55 0 unit/min .Q11H7M PRN 0 mls/hr PER PROTOCOL Titration Protocol 0.03 UNIT/MIN Piperacillin Sod/Tazobactam 100 mls @ 200 mls/hr 05/16/24 22:00 05/17/24 21:35 Sod 4.5 gm/ Sodium Chloride IV 05/23/24 21:59 Infused Q12HR ANGELICA Infusion Albumin Human 25 gm in 100 mls @ 100 mls/min 05/17/24 15:52 Albuminar-25 Ivpb IV 05/20/24 15:51 PRN PRN DIALYSIS Ondansetron HCl 4 mg 05/13/24 11:58 05/14/24 12:31 Ondansetron Inj 2 Mg/Ml Inj 2 Ml IV 06/12/24 11:57 4 mg Q6H PRN Administration NAUSEA OR VOMITING Protocol Pantoprazole Sodium 40 mg 05/15/24 21:00 05/18/24 08:11 Pantoprazole Inj 40 Mg Vial IVP 06/14/24 20:59 40 mg BID ANGELICA Administration Pharmacy Consult 1 each 05/16/24 10:27 Pharmacy Renal Dose Adjustment 1 Ea XX 06/15/24 10:26 PRN PRN CONSULT Plan 69-year-old female with past medical history of CKD stage III, prediabetes, hypertension who was found unconscious in her room. As well as diarrhea and shortness of breath. Admitted for sepsis secondary to pneumonia and acute metabolic encephalopathy #Acute metabolic encephalopathy- currently Intubated and MV #Generalized weakness -Patient was found to be nonresponsive at home -Intitial Head CT was negative -Patient failed bedside swallow eval -Brain MRI with MRA shows significant stenoses in posterior cerebral artery -Encephalopathy most likely related to acute critical illness, we will re-evaluate once off sedation,currently on propofol -Will continue with the current management as per primary team, will consider doing EEG if there is no improvement in mental status. Patient's care discussed with attending physician, Dr Talisha Taylor MD PGY3 Attending Provider Attestation/Addendum I personally have seen and examined the patient at the bedside and agree with resident findings, assessment and plan of care. Continue with the current management, her condition is critical and her prognosis is Guarded.
--- NOTE | 2024-05-18 08:48 | PC.NURSE ---
1st unit PRBC finished. Waiting for second unit.
[2024-05-18 08:56] LABS: Hepatitis A Antibody IgM Non Reactive (Non React); Hepatitis B Core Antibody IgM Non Reactive (Non React); Hepatitis B Surface Ab NonReact(Not Immune) (Immune); Hepatitis B Surface Antigen Non Reactive (Non React); Hepatitis C Antibody Non Reactive (Non React)
--- NOTE | 2024-05-18 09:23 | PC.NURSE ---
2nd unit PRBC started.
--- NOTE | 2024-05-18 09:45 | PD.RESPRO ---
Documentation for date of: 05/18/24 Subjective Subjective Interval history: Patient seen in the ICU this morning. No overnight events. Patient continues to be mechanically ventilated. Patient has been sinus rhythm over night Patient was placed on hemodialysis due to declining kidney function. Recommend to continue Amio 200mg P.O. BID. No heparin drip as patient has perforated ulcer. No further troponins recommended. Potassium 3.1 magnesium 2.3, recommend to replete potassium and magnesium to keep above 4 and 2 respectively to avoid any further arrhythmias. Echo on 05/16/2024 showed the following findings: Normal LV size and function with an estimated EF of 55 to 60%. Mild LVH. Stage I diastolic dysfunction. RV not visualized appears to have normal size and function. 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 Mild AV Sclerosis without stenosis. Exam Vital Signs Temp Pulse Resp BP Pulse Ox O2 Del Method O2 Flow Rate 97.7 F 85 20 91/54 L 98 Mechanical Ventilation 1 05/18/24 09:31 05/18/24 09:31 05/18/24 09:31 05/18/24 09:31 05/18/24 09:31 05/18/24 08:00 05/15/24 08:00 FiO2 35 05/18/24 08:07 Narrative Exam General: intubated Eyes: Pupils reactive to light Ears: No visible ear discharge Nose: No visible nasal discharge Mouth/Throat: Dry mucous membranes, no redness, no lesions. Neck: Short neck , non-tender, no cervical lymphadenopathy. Lungs: Mechanically ventilated, bronchial breath sounds Cardio: Normal S1/S2, regular rhythm, systolic murmurs, no JVD Abdomen: Soft, non-tender, no palpable masses, peristalsis present, no guarding or rebound. Surgical scar covered with clean dressing. Extremities: Symmetrical, no significant deformities, trace peripheral edema , non-tender, peripheral pulses presents. Skin: No rashes, no lesions, warm to touch. Neuro: Patient is currently sedated Objective Labs 05/18/24 19:59 05/18/24 05:25 Labs: Laboratory Results - last 24 hr 05/16/24 05/18/24 05/18/24 01:21 04:20 05:25 WBC 19.9 H D RBC 2.40 L Hgb 6.5 L* Hct 19.7 L* MCV 82 MCH 27.1 MCHC 33.0 RDW Std Deviation 46.5 H Plt Count 196 Neut % (Auto) 90 H Lymph % (Auto) 5 L [place] % (Auto) 3 Eos % (Auto) 1 Baso % (Auto) 0 Neut # (Auto) 17.9 H Lymph # (Auto) 1.0 [place] # (Auto) 0.7 Eos # (Auto) 0.1 Baso # (Auto) 0.0 Immature Gran # (Auto) 0.22 H Absolute Nucleated RBC 0.27 H Immature Gran % 1 H Nucleated RBC % 1 H Puncture Site Right Radial ABG pH 7.49 H D ABG pCO2 30 L ABG pO2 66 L ABG HCO3 23 ABG O2 Saturation 94 ABG Base Excess 0 FiO2 21 Sodium 144 Potassium 3.1 L D Chloride 109 H Carbon Dioxide 24.8 Anion Gap 10 BUN 50 H Creatinine 2.8 H D Estim Creat Clear Calc 17.9 L eGFR 18 L BUN/Creatinine Ratio 18 Glucose 118 H D Calculated Osmolality 301 H Calcium 8.5 Corrected Calcium 9.7 Phosphorus 3.2 Magnesium 2.3 Total Bilirubin 0.9 AST 116 H ALT 139 H Alkaline Phosphatase 78 Total Protein 4.7 L Albumin 2.5 L Globulin 2.2 L Albumin/Globulin Ratio 1.1 L Hepatitis A IgM Ab Non Reactive Hep Bs Antigen Non Reactive Hep Bs Antibody NonReact(Not Immune) L Hep B Core IgM Ab Non Reactive Hepatitis C Antibody Non Reactive Blood Type O Positive Antibody Screen NEGATIVE Crossmatch See Detail Blood Bank Wristband ID Yes ABG Interpretation ABG results: 05/13/24 05/15/24 05/15/24 08:29 15:28 16:03 ABG pH 7.39 7.05 L* D 7.17 L* D ABG pCO2 31 L 63 H D 45 D ABG pO2 78 L 38 L* D 84 D ABG HCO3 19 L 18 L 16 L ABG O2 Saturation 96 59 L 96 ABG Base Excess -5 L -12 L -11 L 05/16/24 05/17/24 05/18/24 04:38 04:03 04:20 ABG pH 7.28 L D 7.38 D 7.49 H D ABG pCO2 34 D 28 L 30 L ABG pO2 96 85 66 L ABG HCO3 16 L 17 L 23 ABG O2 Saturation 98 97 94 ABG Base Excess -10 L -8 L 0 Quality Measures Quality Measures VTE prophylaxis Advance care planning discussed with:: patient Assessment & Plan Assessment Current Active Medications: Generic Name Dose Route Start Last Admin Trade Name Freq PRN Reason Stop Dose Admin Amiodarone HCl 200 mg 05/16/24 12:00 05/18/24 08:11 Amiodarone Hcl 200 Mg Tablet PO 06/15/24 11:59 200 mg BID ANGELICA Administration Heparin Sodium (Porcine) 5,000 unit 05/16/24 14:00 05/18/24 05:02 Heparin Sod Inj 5000 Unit/Ml Vial SC 05/30/24 13:59 5,000 unit Q8HR ANGELICA Administration Heparin Sodium (Porcine) 2,500 unit 05/17/24 15:52 05/17/24 17:03 Heparin Sod Inj 1000 Unit/Ml Vial 10 Ml INDWELLCAT 05/31/24 15:51 2,500 unit PRN PRN Administration DIALYSIS Hydromorphone HCl 0.5 mg 05/14/24 15:35 05/15/24 05:10 Hydromorphone Inj 2 Mg/Ml Vial IVP 05/19/24 15:34 0.5 mg Q6HR PRN Administration PAIN SCALE 7-10 (Severe Azithromycin 500 mg/ Sodium 250 mls @ 250 mls/hr 05/14/24 09:00 05/18/24 08:12 Chloride IV 05/21/24 08:59 250 mls/hr QDAY ANGELICA Administration Protocol Propofol 1,000 mg in 100 mls @ 2.466 mls/hr 05/15/24 10:28 05/18/24 06:00 Diprivan Ivpb IV 06/14/24 10:27 5 mcg/kg/min .Q24H PRN 2.466 mls/hr PER PROTOCOL Titration Protocol 5 MCG/KG/MIN Fentanyl Citrate 2,500 mcg in 250 mls @ 2.5 mls/hr 05/15/24 10:28 05/18/24 06:00 Sublimaze Inj 2,500 Mcg/250 Ml Bag IV 05/20/24 10:27 25 mcg/hr .Q24H PRN 2.5 mls/hr PER PROTOCOL Titration Protocol 25 MCG/HR Norepinephrine Bitartrate 16 mg in 250 mls @ 3.853 mls/hr 05/15/24 10:29 05/18/24 06:00 Levophed In Ns 16mg/250ml IV 06/14/24 10:28 0 mcg/kg/min .Q24H PRN 0 mls/hr PER protocol Titration Protocol 0.05 MCG/KG/MIN Vasopressin/Sodium Chloride 20 unit in 100 mls @ 9 mls/hr 05/15/24 17:56 05/17/24 22:30 Vasostrict/Ns Ivpb IV 06/14/24 17:55 0 unit/min .Q11H7M PRN 0 mls/hr PER PROTOCOL Titration Protocol 0.03 UNIT/MIN Piperacillin Sod/Tazobactam 100 mls @ 200 mls/hr 05/16/24 22:00 05/17/24 21:35 Sod 4.5 gm/ Sodium Chloride IV 05/23/24 21:59 Infused Q12HR ANGELICA Infusion Albumin Human 25 gm in 100 mls @ 100 mls/min 05/17/24 15:52 Albuminar-25 Ivpb IV 05/20/24 15:51 PRN PRN DIALYSIS Ondansetron HCl 4 mg 05/13/24 11:58 05/14/24 12:31 Ondansetron Inj 2 Mg/Ml Inj 2 Ml IV 06/12/24 11:57 4 mg Q6H PRN Administration NAUSEA OR VOMITING Protocol Pantoprazole Sodium 40 mg 05/15/24 21:00 05/18/24 08:11 Pantoprazole Inj 40 Mg Vial IVP 06/14/24 20:59 40 mg BID ANGELICA Administration Pharmacy Consult 1 each 05/16/24 10:27 Pharmacy Renal Dose Adjustment 1 Ea XX 06/15/24 10:26 PRN PRN CONSULT Plan 69 y/o female with PMH of essential hypertension, gastric ulcers, hyperlipidemia, and DM2 was admitted to the hospital on 05/13/2024 due to acute encephalopathy likely secondary to sepsis secondary to CAP. 1. NSTEMI Type II 2. A-Fib with RVR, New onset -Patient has had elevated troponins from previous admissions with most recent on 11/17/2023 of 0.097 and prior to this on 12/28/2021 was 0.065 -On this admission intial troponins 0.09, uptrended to 0.239 and downtrended. -NSTEMI type II most likley in the setting of sepsis as patient has no chest pain. -EKG on this admission showed LVH with strain pattern and sinus tachycardia which is similiar to prior EKG on 11/22/2023 -CLARY ACS score of 115 points, 7% probability of -Patient in this afternoon developed A-Fib with RVR with ST depressions in anterolateral leads which are mostly rate related ST depressions -Echo on 05/16/2024 showed the following findings: Normal LV size and function with an estimated EF of 55 to 60%. Mild LVH. Stage I diastolic dysfunction. RV not visualized appears to have normal size and function. 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 Mild AV Sclerosis without stenosis. Plan: -No heparin drip at this time given the severe anemia and perforated gastric ulcer -Recommend to continue Amio 200mg P.O. BID. -No anticoagulation given perforated ulcer -Recommend to place patient on high intensity statin and aspirin if GI and general surgery are okay with starting aspirin and there are no other contraindications -Recommend no further troponins as elevated troponins most likely secondary to sepsis from type II NSTEMI. -Patient will need further ischemic evaluation which can be done when she is more stable and can be pursued as outpatient 3. Acute decompensated heart failure (EF 55-60%) 4.Essential Hypertension -Patient has some SOB, trace edema and initial BNP was 309 -CXR did show some vascular congestion -Echo from 04/26/2024 had the following findings: Normal LV size and function. Mild LVH. Estimated EF 60-65% Normal RV size and function. Mild to moderate mitral valve stenosis, mean gradient 8mmHg. Moderate MAC. Mild AI, MR, TR. Mild AV sclerosis without stenosis -Echo on 05/16/2024 showed the following findings: Normal LV size and function with an estimated EF of 55 to 60%. Mild LVH. Stage I diastolic dysfunction. RV not visualized appears to have normal size and function. 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 Mild AV Sclerosis without stenosis. Plan: -Hold diuresis in the setting of sepsis and soft BP, but if BP stabilizes will need diuresis -Strict CACHORRO's -Fluid restrictions -Low sodium diet -Daily weights -Recommend to potassium and magnessium above 4 and 2 respectively to avoid any arrhythmias. 5. Sepsis 2/2 perforated gastric ulcer 6. Community acquired pneumonia 7.Acute Encephalopathy 8. perforated gastric ulcer 9. Acute blood loss anemia 10. GI bleed -Continue current management as per primary care team 11.DM2 12. Hyperlipidemia -Continue current management as per primary care team Continue rest of management as per primary team. We are grateful to be able to participate in Mrs. Castellanos's care. Thank you for the consult Plan of care discussed with attending Bulldozer Engineer, Dr. Susan Spears MD PGY-1 Attending Provider Attestation/Addendum I have personally seen and examined the patient separately on the above date of service and discussed the plan of care with the resident. I reviewed the resident Dr. Merino consultation progress note and agree with the resident findings and plan in the note above and have also edited the documentation to reflect my findings and plan. Jalen Davis M.D. Interventional Cardiology
[2024-05-18] MEDS: HEPARIN SOD INJ 1000 UNIT/ML VIAL 10 ML 2500 UNIT INDWELLCAT (11:05)
--- NOTE | 2024-05-18 13:36 | PD.RESPRO ---
Documentation for date of: 05/18/24 Subjective Subjective Interval history: Mr. Castellanos is a [id number] with past medical history of prediabetes, CKD, hypertension, history of ulcers who was admitted to [facility] for sepsis secondary to pneumonia and acute metabolic encephalopathy. Patient was BIBA to the ED after being found unconscious on the floor. According to the son on admission patient's daughter found the patient at 3 AM passed out on the floor and unresponsive. Family is unaware along the patient was on the floor. 2 days ago patient started to develop abdominal pain and weakness all over her body associated with some diarrhea and shortness of breath. Patient's abdominal pain comes and goes from right side to left side of the abdomen. ED course patient was hypertensive tachycardic tachypneic and was saturating 92% on 5 L nasal cannula ED labs significant for WBCs 24.3, bicarb 19.6, glucose 259, lactic acid 2.2, BNP 304, troponin 0.09. 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, colonic diverticulosis, Cervical spine CT showed 3 mm radiolucency in C3 vertebral body Chest CTA showed mild aneurysmal dilatation ascending thoracic aorta AP dimension 4.3 cm and pulmonary artery hypertension with moderate vascular congestion Face CT shows no acute facial fracture, Lumbar spine CT shows no acute lumbar fracture severe acquired spinal stenosis L4-L5, Thoracic spine CT showed no acute fracture Brain MRI with MRA showed equally focal restricted diffusion brainstem medullary level significant stenosis of right P1 P2 segment posterior cerebral artery Postadmission, cardiology was consulted on admission because of elevated troponins, suspicion of NSTEMI type II, patient has acute decompensated heart failure per cardiology evaluation, neurology consulted because of patient's acute metabolic encephalopathy and GI was consulted for suspicion of GI bleed. Eventually on 05/15 rapid response was called for worsening chest pain, patient's map was consistently in 70s, was tachycardic tachypneic. CT angiogram showed pneumoperitoneum multiple air droplets adjacent to and within wall of stomach with suspicion of gastric perforation. General surgery was consulted for emergency surgery and patient had exploratory laparotomy with repair of perforated gastric ulcer with an omental patch. Patient was upgraded to ICU postop for further management patient currently on Levophed and vasopressor due to distributive shock, currently sedated and intubated on mechanical ventilation. Nephrology consulted due to concern of ADILOSN. 05/16/24: Patient seen at bedside, patient's daughter present at bedside labs reviewed patient's creatinine 3.0, GFR 16 and BUN 60. Patient's baseline GFR more than 60, does report history of chronic kidney disease. Patient's urine output yesterday 820 mL, there is suspicion of acute kidney injury due to patient's underlying distributive shock versus hypovolemic shock, will continue to monitor patient's urine output and renal panel in a.m., plan of care discussed with patient's family at bedside they want to proceed with dialysis if needed. Will continue to monitor patient. 05/17/24: Patient seen at bedside, patient continues to remain sedated and is on pressors currently, patient's BUN 76, creatinine 3.5, GFR 14. Renal function has continued to decline, patient has minimal urine output only 320 mL in the last 24 hours, patient will be started on dialysis treatment today, will start dialysis post catheter placement. Will monitor labs in a.m., will continue to monitor patient. 05/18/24: Patient seen at bedside, continues to remain sedated and is on pressors currently, patient's hemoglobin was 6.5 in AM, plan to give 2 units of PRBC with dialysis today. Patient did receive hemodialysis yesterday for 2 hours 31 minutes. Today patient will receive another dialysis treatment, patient's urine output continues to remain low, about 200 cc in the last 24 hours, will continue to monitor renal function. Exam Vital Signs Temp Pulse Resp BP Pulse Ox O2 Del Method O2 Flow Rate 98.1 F 92 17 135/70 H 97 Mechanical Ventilation 1 05/18/24 10:17 05/18/24 11:41 05/18/24 10:17 05/18/24 11:41 05/18/24 11:41 05/18/24 08:00 05/15/24 08:00 FiO2 35 05/18/24 11:41 Narrative Exam General: Sedated and intubated Eyes: Pupils reactive to light Ears: No visible ear discharge Nose: No visible nasal discharge Mouth/Throat: Dry mucous membranes, no redness, no lesions. Neck: Short neck , non-tender, no cervical lymphadenopathy. Lungs: Mechanically ventilated, bronchial breath sounds Cardio: Normal S1/S2, regular rhythm, systolic murmurs, no JVD Abdomen: Soft, non-tender, no palpable masses, peristalsis present, no guarding or rebound. Surgical scar covered with clean dressing. Extremities: Symmetrical, no significant deformities, 2+ peripheral edema , non-tender, peripheral pulses presents. Skin: No rashes, no lesions, warm to touch. Neuro: Patient is currently sedated Objective Labs 05/19/24 05:27 05/19/24 05:27 Labs: Laboratory Results - last 24 hr 05/16/24 05/18/24 05/18/24 01:21 04:20 05:25 WBC 19.9 H D RBC 2.40 L Hgb 6.5 L* Hct 19.7 L* MCV 82 MCH 27.1 MCHC 33.0 RDW Std Deviation 46.5 H Plt Count 196 Neut % (Auto) 90 H Lymph % (Auto) 5 L [place] % (Auto) 3 Eos % (Auto) 1 Baso % (Auto) 0 Neut # (Auto) 17.9 H Lymph # (Auto) 1.0 [place] # (Auto) 0.7 Eos # (Auto) 0.1 Baso # (Auto) 0.0 Immature Gran # (Auto) 0.22 H Absolute Nucleated RBC 0.27 H Immature Gran % 1 H Nucleated RBC % 1 H Puncture Site Right Radial ABG pH 7.49 H D ABG pCO2 30 L ABG pO2 66 L ABG HCO3 23 ABG O2 Saturation 94 ABG Base Excess 0 FiO2 21 Sodium 144 Potassium 3.1 L D Chloride 109 H Carbon Dioxide 24.8 Anion Gap 10 BUN 50 H Creatinine 2.8 H D Estim Creat Clear Calc 17.9 L eGFR 18 L BUN/Creatinine Ratio 18 Glucose 118 H D Calculated Osmolality 301 H Calcium 8.5 Corrected Calcium 9.7 Phosphorus 3.2 Magnesium 2.3 Total Bilirubin 0.9 AST 116 H ALT 139 H Alkaline Phosphatase 78 Total Protein 4.7 L Albumin 2.5 L Globulin 2.2 L Albumin/Globulin Ratio 1.1 L Hepatitis A IgM Ab Non Reactive Hep Bs Antigen Non Reactive Hep Bs Antibody NonReact(Not Immune) L Hep B Core IgM Ab Non Reactive Hepatitis C Antibody Non Reactive Blood Type O Positive Antibody Screen NEGATIVE Crossmatch See Detail Blood Bank Wristband ID Yes ABG Interpretation ABG results: 05/13/24 05/15/24 05/15/24 08:29 15:28 16:03 ABG pH 7.39 7.05 L* D 7.17 L* D ABG pCO2 31 L 63 H D 45 D ABG pO2 78 L 38 L* D 84 D ABG HCO3 19 L 18 L 16 L ABG O2 Saturation 96 59 L 96 ABG Base Excess -5 L -12 L -11 L 05/16/24 05/17/24 05/18/24 04:38 04:03 04:20 ABG pH 7.28 L D 7.38 D 7.49 H D ABG pCO2 34 D 28 L 30 L ABG pO2 96 85 66 L ABG HCO3 16 L 17 L 23 ABG O2 Saturation 98 97 94 ABG Base Excess -10 L -8 L 0 Quality Measures Quality Measures VTE prophylaxis Advance care planning discussed with:: patient and child Assessment & Plan Assessment Current Active Medications: Generic Name Dose Route Start Last Admin Trade Name Freq PRN Reason Stop Dose Admin Amiodarone HCl 200 mg 05/16/24 12:00 05/18/24 08:11 Amiodarone Hcl 200 Mg Tablet PO 06/15/24 11:59 200 mg BID ANGELICA Administration Heparin Sodium (Porcine) 5,000 unit 05/16/24 14:00 05/18/24 05:02 Heparin Sod Inj 5000 Unit/Ml Vial SC 05/30/24 13:59 5,000 unit Q8HR ANGELICA Administration Heparin Sodium (Porcine) 2,500 unit 05/17/24 15:52 05/18/24 11:05 Heparin Sod Inj 1000 Unit/Ml Vial 10 Ml INDWELLCAT 05/31/24 15:51 2,500 unit PRN PRN Administration DIALYSIS Hydromorphone HCl 0.5 mg 05/14/24 15:35 05/15/24 05:10 Hydromorphone Inj 2 Mg/Ml Vial IVP 05/19/24 15:34 0.5 mg Q6HR PRN Administration PAIN SCALE 7-10 (Severe Azithromycin 500 mg/ Sodium 250 mls @ 250 mls/hr 05/14/24 09:00 05/18/24 08:12 Chloride IV 05/21/24 08:59 250 mls/hr QDAY ANGELICA Administration Protocol Propofol 1,000 mg in 100 mls @ 2.466 mls/hr 05/15/24 10:28 05/18/24 10:00 Diprivan Ivpb IV 06/14/24 10:27 5 mcg/kg/min .Q24H PRN 2.466 mls/hr PER PROTOCOL Titration Protocol 5 MCG/KG/MIN Fentanyl Citrate 2,500 mcg in 250 mls @ 2.5 mls/hr 05/15/24 10:28 05/18/24 10:00 Sublimaze Inj 2,500 Mcg/250 Ml Bag IV 05/20/24 10:27 25 mcg/hr .Q24H PRN 2.5 mls/hr PER PROTOCOL Titration Protocol 25 MCG/HR Norepinephrine Bitartrate 16 mg in 250 mls @ 3.853 mls/hr 05/15/24 10:29 05/18/24 06:00 Levophed In Ns 16mg/250ml IV 06/14/24 10:28 0 mcg/kg/min .Q24H PRN 0 mls/hr PER protocol Titration Protocol 0.05 MCG/KG/MIN Vasopressin/Sodium Chloride 20 unit in 100 mls @ 9 mls/hr 05/15/24 17:56 05/17/24 22:30 Vasostrict/Ns Ivpb IV 06/14/24 17:55 0 unit/min .Q11H7M PRN 0 mls/hr PER PROTOCOL Titration Protocol 0.03 UNIT/MIN Piperacillin Sod/Tazobactam 100 mls @ 200 mls/hr 05/16/24 22:00 05/17/24 21:35 Sod 4.5 gm/ Sodium Chloride IV 05/23/24 21:59 Infused Q12HR ANGELICA Infusion Albumin Human 25 gm in 100 mls @ 100 mls/min 05/17/24 15:52 Albuminar-25 Ivpb IV 05/20/24 15:51 PRN PRN DIALYSIS Ondansetron HCl 4 mg 05/13/24 11:58 05/14/24 12:31 Ondansetron Inj 2 Mg/Ml Inj 2 Ml IV 06/12/24 11:57 4 mg Q6H PRN Administration NAUSEA OR VOMITING Protocol Pantoprazole Sodium 40 mg 05/15/24 21:00 05/18/24 08:11 Pantoprazole Inj 40 Mg Vial IVP 06/14/24 20:59 40 mg BID ANGELICA Administration Pharmacy Consult 1 each 05/16/24 10:27 Pharmacy Renal Dose Adjustment 1 Ea XX 01/16/25 10:26 PRN PRN CONSULT Plan Summary: Mr. Castellanos is a [id number] with past medical history of prediabetes, CKD, hypertension, history of ulcers who was admitted to [facility] for sepsis secondary to pneumonia and acute metabolic encephalopathy. Patient is currently sedated intubated in ICU status post exploratory laparotomy with repair of perforated gastric ulcer with an omental patch. Nephrology consulted for acute kidney injury. #Acute kidney injury #Acute Tubular Necrosis 2/2 shock Patient does report history of chronic kidney disease secondary to hypertension, baseline GFR noted to be more than 60, patient presented with GFR 45, improved initially to more than 60. Patient did have ADILSON on 05/15 with creatinine 2.4 since then creatinine worsened to 3.0 and nephrology was consulted. Urine analysis significant for protein 1+, specific gravity 1.048, RBC 37, WBC 9, uric acid crystals 4+, yeast present, urine random sodium less than 10. FENa 0.2 etiology prerenal. Patient had temporary Vas-Cath placed yesterday, received 2-hour 30 minutes of dialysis treatment. Patient's urine output continues to remain low, produced about 200 cc in the last 24 hours. Plan: -Patient will receive hemodialysis treatment today -Renally dose medications -Avoid nephrotoxic agents -Monitor urine output, strict I&O's -Follow renal panel in a.m. Plan discussed with ICU team. #Metabolic acidosis, resolved #Lactic Acidosis #Acute Encephalopathy #Distributive shock #Acute decompensated HF #Elevated Troponin #Hyperlipidemia #Primary Hypertension #Acute Hypoxic Respiratory failure #Pneumoperitoneum #Peritonitis secondary to perforated gastric ulcer #Acute Upper GI bleed #Diabetes Mellitus type II #Acute anemia Management as per primary team. Case discussed with Attending Dr. August. Geovani Mahmood PGY1 Attending Provider Attestation/Addendum Patient seen and examined with resident physician Dr. Mahmood. Note reviewed, agree with findings and recommendations. Patient currently seen in ICU. Family at bedside. Currently on the ventilator. Patient with sepsis, peritonitis secondary to perforated gastric ulcer which was repaired. Currently on pressors. Urine output trending down. BUN and creatinine are significantly elevated. Suspect patient going towards ATN. Will monitor closely urine output and azotemia. Family requesting all aggressive measures including dialysis if indicated. No need for emergency dialysis. 1 amp of bicarbonate given. If no improvement in azotemia/decreasing urine output-will plan for renal replacement therapy in the next 24 hours. 05/18/2024 patient remains in ICU on ventilator. Urine output very minimal. Azotemia worsened. Decided to proceed with dialysis. Vas-Cath placed by ICU patient received a shot course of dialysis yesterday. Unfortunately catheter got clotted and could not return the blood. Hemoglobin stable. tPA was instilled overnight. Patient currently on pressors Hemodialysis for 2.5 hours, blood flow 200, 2K, ultrafiltration 1 L, Epogen 6000, no heparin ordered. Plan of care discussed with the dialysis nurse. Please see dialysis flowsheet for further details. Plan of care discussed with ICU team. Thank you Dr. Robles for allowing me to participate in the care of Ms. Castellanos
--- NOTE | 2024-05-18 13:57 | CHAP ---
09:30 AM Visited by spiritual care volunteer Provided prayer for Patient.
[2024-05-18] MEDS: PIPER/TAZO INJ 4.5 GM in SODIUM CHLORIDE 0.9% (P) 100 ML IV ×2 (14:38→20:23)
[2024-05-18] MEDS: HYDROmorphone INJ 2 MG/ML VIAL 0.5 MG IVP (14:53)
--- NOTE | 2024-05-18 15:03 | ESPR_ITS ---
Documentation for date of: 05/18/24 Subjective Subjective Brief History: 69F with HTN, CKDIII, pre DM and known gastric ulcers who was admitted 05/13 after being found down at home. Pt was admitted for encephalopathy and pneumonia, developed anemia for which EGD was planned today however this am had an HOME THEATER SPECIALIST for tachycardia, hypotension and acute pain; she underwent CT AP showing pneumoperitoneum with air droplets adjacent to the stomach PMH: HTN, CKDIII, preDM, known gastric ulcers on EGD 10/2023 PSHx: None Meds: No antiplt or anticoagulation Allergies: NKDA Narrative: Pressor support weaned, underwent HD and extubated today, had BM containing tarry black stool overnight. BALAJI 40cc/24h serosanguinous, WBC downtrending, Hgb 6 received 2u PRBC Exam Vital Signs Temp Pulse Resp BP Pulse Ox O2 Del Method O2 Flow Rate 98.1 F 92 17 135/70 H 97 Mechanical Ventilation 1 05/18/24 10:17 05/18/24 11:41 05/18/24 10:17 05/18/24 11:41 05/18/24 11:41 05/18/24 08:00 05/15/24 08:00 FiO2 35 05/18/24 11:41 Constitutional Constitutional: no acute distress Routine Respiratory Exam Respiratory: Present no resp distress Routine Abdominal Exam Abdominal: Present soft and drain (BALAJI serosanguinous output); Absent tenderness or distended Results Results: Laboratory Laboratory results: results reviewed Assessment & Plan Plan 69F with HTN, CKDIII, pre DM and known gastric ulcers who was admitted 05/13 after being found down at home, who developed pneumoperitoneum 05/15 now s/p emergent ex lap, repair of gastric perforation, gradually improving Advance tube feeds as tolerated Monitor BALAJI output Will follow up Procedures Procedures Exploratory laparotomy, repair of perforated gastric ulcer
--- NOTE | 2024-05-18 15:25 | PC.SS ---
Update: Patient extubated today. Patient received dialysis today. Dr. August neurology epilepsy physician. Decision pending if patient will require outpatient dialysis.
[2024-05-18] MEDS: HYDROcodone/APAP 5/325 TABLET 1 TAB PO (15:57)
--- NOTE | 2024-05-18 18:00 | ESPR_ITS ---
Documentation for date of: 05/18/24 Subjective Subjective Interval history: On amiodarone at the moment Exam Vital Signs Temp Pulse Resp BP Pulse Ox O2 Del Method O2 Flow Rate 97.2 F 85 21 H 125/63 97 Nasal Cannula 4 05/18/24 16:00 05/18/24 16:00 05/18/24 16:00 05/18/24 16:00 05/18/24 16:00 05/18/24 16:00 05/18/24 16:00 FiO2 35 05/18/24 12:00 Constitutional Comments: Chronically ill-appearing Routine Abdominal Exam Comments: Tender hypoactive bowel sounds Objective Labs 05/18/24 05:25 05/18/24 05:25 Labs: Laboratory Results - last 24 hr 05/16/24 05/18/24 05/18/24 01:21 04:20 05:25 WBC 19.9 H D RBC 2.40 L Hgb 6.5 L* Hct 19.7 L* MCV 82 MCH 27.1 MCHC 33.0 RDW Std Deviation 46.5 H Plt Count 196 Neut % (Auto) 90 H Lymph % (Auto) 5 L [place] % (Auto) 3 Eos % (Auto) 1 Baso % (Auto) 0 Neut # (Auto) 17.9 H Lymph # (Auto) 1.0 [place] # (Auto) 0.7 Eos # (Auto) 0.1 Baso # (Auto) 0.0 Immature Gran # (Auto) 0.22 H Absolute Nucleated RBC 0.27 H Immature Gran % 1 H Nucleated RBC % 1 H Puncture Site Right Radial ABG pH 7.49 H D ABG pCO2 30 L ABG pO2 66 L ABG HCO3 23 ABG O2 Saturation 94 ABG Base Excess 0 FiO2 21 Sodium 144 Potassium 3.1 L D Chloride 109 H Carbon Dioxide 24.8 Anion Gap 10 BUN 50 H Creatinine 2.8 H D Estim Creat Clear Calc 17.9 L eGFR 18 L BUN/Creatinine Ratio 18 Glucose 118 H D Calculated Osmolality 301 H Calcium 8.5 Corrected Calcium 9.7 Phosphorus 3.2 Magnesium 2.3 Total Bilirubin 0.9 AST 116 H ALT 139 H Alkaline Phosphatase 78 Total Protein 4.7 L Albumin 2.5 L Globulin 2.2 L Albumin/Globulin Ratio 1.1 L Hepatitis A IgM Ab Non Reactive Hep Bs Antigen Non Reactive Hep Bs Antibody NonReact(Not Immune) L Hep B Core IgM Ab Non Reactive Hepatitis C Antibody Non Reactive Blood Type O Positive Antibody Screen NEGATIVE Crossmatch See Detail Blood Bank Wristband ID Yes Impressions Impression: # Status post exploratory laparotomy and repair of the perforated gastric ulcer with omental patch Continue postoperative care ABG Interpretation ABG results: 05/13/24 05/15/24 05/15/24 08:29 15:28 16:03 ABG pH 7.39 7.05 L* D 7.17 L* D ABG pCO2 31 L 63 H D 45 D ABG pO2 78 L 38 L* D 84 D ABG HCO3 19 L 18 L 16 L ABG O2 Saturation 96 59 L 96 ABG Base Excess -5 L -12 L -11 L 05/16/24 05/17/24 05/18/24 04:38 04:03 04:20 ABG pH 7.28 L D 7.38 D 7.49 H D ABG pCO2 34 D 28 L 30 L ABG pO2 96 85 66 L ABG HCO3 16 L 17 L 23 ABG O2 Saturation 98 97 94 ABG Base Excess -10 L -8 L 0 Assessment & Plan A&P Narrative 69 y/o female with PMH of essential hypertension, gastric ulcers, hyperlipidemia, and DM2 was admitted to the hospital on 05/13/2024 due to acute encephalopathy likely secondary to sepsis secondary to CAP. 1. NSTEMI Type II 2. A-Fib with RVR, New onset -Patient has had elevated troponins from previous admissions with most recent on 11/17/2023 of 0.097 and prior to this on 12/28/2021 was 0.065 -On this admission intial troponins 0.09, uptrended to 0.239 and downtrended. -NSTEMI type II most likley in the setting of sepsis as patient has no chest pain. -EKG on this admission showed LVH with strain pattern and sinus tachycardia which is similiar to prior EKG on 11/22/2023 -CLARY ACS score of 115 points, 7% probability of -Patient in this afternoon developed A-Fib with RVR with ST depressions in anterolateral leads which are mostly rate related ST depressions -Echo ordered to rule out post operative CA and to evaluate for any new regional wall motion abnormalities and to reevaluate bradycardia contraction Plan: -No heparin drip at this time given the severe anemia and perforated gastric ulcer -Recommend to start Amio drip and Amio 200mg P.O. BID. -No anticoagulation given perforated ulcer -Recommend to place patient on high intensity statin and aspirin if GI and general surgery are okay with starting aspirin and there are no other contraindications -Recommend no further troponins as elevated troponins most likely secondary to sepsis from type II NSTEMI. -Patient will need further ischemic evaluation which can be done when she is more stable and can be pursued as outpatient 05/18/2024: Patient continues to be mechanically ventilated and sedated Patient continues to be on pressor support Patient was in atrial fibrillation on 121 noted on WANG [address] depressions in anterolateral leads which are mostly rate related ST depressions. Echo ordered to rule out postoperative CA and showed no regional wall motion abnormalities and EF is 55 to 60% again and see detailed echo report below. Patient now converted to normal sinus rhythm after the amiodarone drip and patient is already started on amiodarone 200 mg p.o. twice daily. Recommend to check EKG to document the normal sinus rhythm and also to check the QTc as the patient is on amiodarone. No heparin drip as patient has perforated ulcer. Discussed with GI and surgery went to start anticoagulation with heparin drip initially and then later on Eliquis 5 mg twice daily No further troponins recommended. Mild troponin elevation is mostly secondary to NSTEMI type II in the setting of supply/demand mismatch. Patient will need further ischemic evaluation but can be done as outpatient when she improves from the present medical conditions recommend to replete potassium and magnesium to keep above 4 and 2 respectively to avoid any further arrhythmias. Normal LV size and function with an estimated EF of 55 to 60%. Mild LVH. Stage I diastolic dysfunction. RV not visualized appears to have normal size and function. 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 Mild AV Sclerosis without stenosis. 3. Acute decompensated heart failure (EF 60-65%) 4.Essential Hypertension -Patient has some SOB, trace edema and initial BNP was 309 -CXR did show some vascular congestion -Echo from 04/26/2024 had the following findings: Normal LV size and function. Mild LVH. Estimated EF 60-65% Normal RV size and function. Mild to moderate mitral valve stenosis, mean gradient 8mmHg. Moderate MAC. Mild AI, MR, TR. Mild AV sclerosis without stenosis Plan: -Hold diuresis in the setting of sepsis and soft BP, but if BP stabilizes will need diuresis -Strict CACHORRO's -Fluid restrictions -Low sodium diet -Daily weights -Recommend to potassium and magnessium above 4 and 2 respectively to avoid any arrhythmias. 5. Sepsis 2/2 perforated gastric ulcer 6. Community acquired pneumonia 7.Acute Encephalopathy 8. perforated gastric ulcer 9. Acute blood loss anemia 10. GI bleed -Continue current management as per primary care team 11.DM2 12. Hyperlipidemia -Continue current management as per primary care team Management of rest of the medical conditions as per primary team and other consultants. Thank you for the consult and allowing me to participate in the care of the patient. Cardiology will continue to follow. Jalen Davis M.D. Interventional Cardiology Time Spent With Patient Time: Total time spent is greater than 50% in coordination of care (as documented) at patient's floor/unit and/or counseling patient:
--- NOTE | 2024-05-18 18:06 | ESPR_ITS ---
<Statement entered by Sinan Robles MD - 05/19/24 13:51> TOTAL TIME: 45MINUTES ON DIRECT MEDICAL CARE, MANAGEMENT - COORDINATION AND COUNSELING > 50% OF TOTAL TIME I saw and evaluated the patient. I reviewed the resident?s note and agree with findings and plan as documented in the resident?s note. Remains extubated, remains off of pressors. Able to follow some questions when family is at bedside speaking with patient Surgery has seen the patient and recommended a trial of trickle feeding if able to tolerate Remains on Zosyn Keep in ICU for now Documentation for date of: 05/18/24 Subjective Subjective Interval history: 05/16: Late in the evening, pt's MAP was dropping below 60 and required vasopressin in addition to levophed. Patient had a trial of pressure support which she did not tolerate and was overworking the vent therefore changed the setting back to assist-control. Patient sedation medication today, she became agitated and restless therefore increased the fentanyl to RASS goal of -3 and DC'd the propofol. Later in the afternoon patient had a new onset of A-fib and was started on amiodarone drip, ordered EKG, and echo. 05/17: No acute overnight events. Patient had no urinary output through the night and decreased urine output during the day. Patient continues to be on vasopressin and Levophed to maintain MAP above 65. She is currently sedated on fentanyl and propofol. Today patient got a catheter for hemodialysis as patient requires a session today with creatinine of 3.4 and GFR 14. Patient's kidney function continues to decline. Patient also failed spontaneous breathing trial so we will continue intubation today and will retry tomorrow. Echo findings are consistent with ejection fraction of 55 to 60% . Patient is transition from amiodarone drip to p.o. amiodarone. 05/18: Overnight patient hemoglobin dropped below 7 and received 2 units of PRBC. Patient is seen and examined at bedside patient continues to have 0 to 10 mL/h urinary output. Patient also had a black tarry bowel movement. Patient underwent HD fluid removal only and removed 2.1 L. Patient is also extubated today. She is doing better, breathing comfortably but complains of abdominal pain which is expected as she is status post abdominal surgery. ABGs are stable. Exam Vital Signs Temp Pulse Resp BP Pulse Ox O2 Del Method O2 Flow Rate 97.2 F 90 21 H 127/61 96 Nasal Cannula 4 05/18/24 16:00 05/18/24 18:00 05/18/24 18:00 05/18/24 18:00 05/18/24 18:00 05/18/24 16:00 05/18/24 16:00 FiO2 35 05/18/24 12:00 Narrative Exam GENERAL: sedated and on michanical ventilation NEURO: unable to obtain due to patient being intubated and on mechanical ventilation HEENT: Atraumatic, Normocephalic. mucous membranes moist, left IJ HEART: Normal Heart Sounds LUNGS: Clear to auscultation with no wheezing or crackles. ABDOMEN: surgical scar is clean with BALAJI drain in place with minimal output SKIN: No Rash or ecchymoses EXTREMITIES: non pitting edema in upper and lower extremities, pedal pulses palpated Objective Labs 05/18/24 05:25 05/18/24 05:25 Labs: Laboratory Results - last 24 hr 05/16/24 05/18/24 05/18/24 01:21 04:20 05:25 WBC 19.9 H D RBC 2.40 L Hgb 6.5 L* Hct 19.7 L* MCV 82 MCH 27.1 MCHC 33.0 RDW Std Deviation 46.5 H Plt Count 196 Neut % (Auto) 90 H Lymph % (Auto) 5 L [place] % (Auto) 3 Eos % (Auto) 1 Baso % (Auto) 0 Neut # (Auto) 17.9 H Lymph # (Auto) 1.0 [place] # (Auto) 0.7 Eos # (Auto) 0.1 Baso # (Auto) 0.0 Immature Gran # (Auto) 0.22 H Absolute Nucleated RBC 0.27 H Immature Gran % 1 H Nucleated RBC % 1 H Puncture Site Right Radial ABG pH 7.49 H D ABG pCO2 30 L ABG pO2 66 L ABG HCO3 23 ABG O2 Saturation 94 ABG Base Excess 0 FiO2 21 Sodium 144 Potassium 3.1 L D Chloride 109 H Carbon Dioxide 24.8 Anion Gap 10 BUN 50 H Creatinine 2.8 H D Estim Creat Clear Calc 17.9 L eGFR 18 L BUN/Creatinine Ratio 18 Glucose 118 H D Calculated Osmolality 301 H Calcium 8.5 Corrected Calcium 9.7 Phosphorus 3.2 Magnesium 2.3 Total Bilirubin 0.9 AST 116 H ALT 139 H Alkaline Phosphatase 78 Total Protein 4.7 L Albumin 2.5 L Globulin 2.2 L Albumin/Globulin Ratio 1.1 L Hepatitis A IgM Ab Non Reactive Hep Bs Antigen Non Reactive Hep Bs Antibody NonReact(Not Immune) L Hep B Core IgM Ab Non Reactive Hepatitis C Antibody Non Reactive Blood Type O Positive Antibody Screen NEGATIVE Crossmatch See Detail Blood Bank Wristband ID Yes ABG Interpretation ABG results: 05/13/24 05/15/24 05/15/24 08:29 15:28 16:03 ABG pH 7.39 7.05 L* D 7.17 L* D ABG pCO2 31 L 63 H D 45 D ABG pO2 78 L 38 L* D 84 D ABG HCO3 19 L 18 L 16 L ABG O2 Saturation 96 59 L 96 ABG Base Excess -5 L -12 L -11 L 05/16/24 05/17/24 05/18/24 04:38 04:03 04:20 ABG pH 7.28 L D 7.38 D 7.49 H D ABG pCO2 34 D 28 L 30 L ABG pO2 96 85 66 L ABG HCO3 16 L 17 L 23 ABG O2 Saturation 98 97 94 ABG Base Excess -10 L -8 L 0 Quality Measures Quality Measures VTE prophylaxis Advance care planning discussed with:: child Assessment & Plan Assessment Current Active Medications: Generic Name Dose Route Start Last Admin Trade Name Freq PRN Reason Stop Dose Admin Hydrocodone Bitart/Acetaminophen 1 tab 05/18/24 18:02 Hydrocodone/Apap 10/325 Tab PO 05/23/24 18:01 Q4HR PRN Pain 4-7 Amiodarone HCl 200 mg 05/16/24 12:00 05/18/24 08:11 Amiodarone Hcl 200 Mg Tablet PO 06/15/24 11:59 200 mg BID ANGELICA Administration Heparin Sodium (Porcine) 5,000 unit 05/16/24 14:00 05/18/24 14:38 Heparin Sod Inj 5000 Unit/Ml Vial SC 05/30/24 13:59 5,000 unit Q8HR ANGELICA Administration Heparin Sodium (Porcine) 2,500 unit 05/17/24 15:52 05/18/24 11:05 Heparin Sod Inj 1000 Unit/Ml Vial 10 Ml INDWELLCAT 05/31/24 15:51 2,500 unit PRN PRN Administration DIALYSIS Hydromorphone HCl 0.5 mg 05/14/24 15:35 05/18/24 14:53 Hydromorphone Inj 2 Mg/Ml Vial IVP 05/19/24 15:34 0.5 mg Q6HR PRN Administration PAIN SCALE 7-10 (Severe Hydromorphone HCl 1 mg 05/18/24 18:02 Hydromorphone Inj 2 Mg/Ml Vial IVP 05/23/24 18:01 Q6H PRN Pain 7-10 Azithromycin 500 mg/ Sodium 250 mls @ 250 mls/hr 05/14/24 09:00 05/18/24 08:12 Chloride IV 05/21/24 08:59 250 mls/hr QDAY ANGELICA Administration Protocol Propofol 1,000 mg in 100 mls @ 2.466 mls/hr 05/15/24 10:28 05/18/24 12:00 Diprivan Ivpb IV 06/14/24 10:27 0 mcg/kg/min .Q24H PRN 0 mls/hr PER PROTOCOL Titration Protocol 5 MCG/KG/MIN Fentanyl Citrate 2,500 mcg in 250 mls @ 2.5 mls/hr 05/15/24 10:28 05/18/24 12:29 Sublimaze Inj 2,500 Mcg/250 Ml Bag IV 05/20/24 10:27 0 mcg/hr .Q24H PRN 0 mls/hr PER PROTOCOL Titration Protocol 25 MCG/HR Norepinephrine Bitartrate 16 mg in 250 mls @ 3.853 mls/hr 05/15/24 10:29 05/18/24 06:00 Levophed In Ns 16mg/250ml IV 06/14/24 10:28 0 mcg/kg/min .Q24H PRN 0 mls/hr PER protocol Titration Protocol 0.05 MCG/KG/MIN Vasopressin/Sodium Chloride 20 unit in 100 mls @ 9 mls/hr 05/15/24 17:56 05/17/24 22:30 Vasostrict/Ns Ivpb IV 06/14/24 17:55 0 unit/min .Q11H7M PRN 0 mls/hr PER PROTOCOL Titration Protocol 0.03 UNIT/MIN Albumin Human 25 gm in 100 mls @ 100 mls/min 05/17/24 15:52 Albuminar-25 Ivpb IV 05/20/24 15:51 PRN PRN DIALYSIS Piperacillin Sod/Tazobactam 100 mls @ 200 mls/hr 05/18/24 14:30 05/18/24 14:38 Sod 4.5 gm/ Sodium Chloride IV 05/25/24 14:29 200 mls/hr Q12HR ANGELICA Administration Ondansetron HCl 4 mg 05/13/24 11:58 05/14/24 12:31 Ondansetron Inj 2 Mg/Ml Inj 2 Ml IV 06/12/24 11:57 4 mg Q6H PRN Administration NAUSEA OR VOMITING Protocol Pantoprazole Sodium 40 mg 05/15/24 21:00 05/18/24 08:11 Pantoprazole Inj 40 Mg Vial IVP 06/14/24 20:59 40 mg BID ANGELICA Administration Pharmacy Consult 1 each 05/16/24 10:27 Pharmacy Renal Dose Adjustment 1 Ea XX 06/15/24 10:26 PRN PRN CONSULT Plan Ms. Castellanos is a 69-year-old female with past medical history significant for hypertension, diabetes, CKD stage III, and history of gastric ulcers who presented to the ED on 05/13/2024 after she was found unconscious on the floor. Per chart reviewing prior to this unconsciousness patient was having abdominal pain and generalized weakness with diarrhea and shortness of breath for 2 days. Patient was admitted to the hospital for treatment and management of sepsis secondary to pneumonia. Patient was given 1 L normal saline and started on ceftriaxone and azithromycin. patient underwent ex lap surgery for perforated gastric ulcer. Patient remained intubated postop and is upgraded to the ICU. Neuro: #stable -Patient is alert oriented and follows commands Cardiovasc: #shock -resolved DDx: more likely Septic shock due to vasodilation -S/P aggressive fluid resuscitation, continue to monitor and will give additional fluids as needed -Plan: start levophed (05/15) and vasopression (05/15)to maintain MAP >65, wean as tolerated. -Status post 1 unit PRBC given 05/15/2024 for hemoglobin below 7 -Continue iv antibiotics and additional fluids as needed and treat underlying cause -Patient is off of all pressor supports 05/18 # New onset A-fib -Likely secondary to shock in the setting of abdominal surgery -EKG findings consistent with A-fib -Amiodarone 200 twice daily -Cardiology consulted #Acute exacerbation of HFpEF- resolved #Hx. of CHF -echo 05/16 -estimated EF of 55 to 60%, stage I diastolic dysfunction noted, Moderate to severe posterior MAC -Pt presented with SOB and 2+ edema in LE -elevated BNP from 304 --> 1110 -holding guideline directed medical therapy due to shock, will resume when able #Hyperlipidemia -Plan: Hold home atorvastatin as patient is npo. Will reinstate as tolerated #Primary Hypertension -Plan: Hold home amlodipine in setting of shock Pulm: #Acute Hypoxic Respiratory failure -2/2 to pulmonary edema in the setting of volume overload 2/2 ATN due to shock leading to oligoanuria -Further complicated by bilateral lung atelectasis in the setting of recent abdominal surgery and sedatives use -Patient is intubated and on mechanical ventilation (05/15): AC RR26 PEEP5 TV 350 FiO2 30 - Spontaneous breathing trail tomorrow, spontaneous breathing trial failed today as patient became agitated when sedation's were lowered Renal: #Acute tubular necrosis - 2/2 septic shock - Baseline Cr appears to be 0.7 - Renally dose medications and avoid nephrotoxic agents - Plan: Patient underwent HD fluid removal only and removed 2.1 L - Guajardo catheter in place and monitor urine output closely. -repeat labs in am -Nephrology following GI: #Pneumoperitoneum #Peritonitis secondary to perforated gastric ulcer Patient found to have tender abdomen, rigidity in the epigastrium, chest x-ray showed elevation of hemidiaphragm, CT abdomen showed pneumoperitoneum, concern for perforated viscus, general surgeon Dr. Silva was consulted for emergency laparotomy and possible repair of perforated gastric ulcer. ?Patient was given IV fluid boluses, IV albumin 1 PRBC was ordered ?Antibiotic coverage was broadened to Zosyn to cover for anaerobic and enteric pathogens. - Plan: s/p Exploratory laparotomy & repair of perforated gastric ulcer - 05/15. -Surgery following and on pain management with Dilaudid and oxycodone as needed #Acute Upper GI bleed - stable - most likely secondary to perforated gastric ulcer -Patient had a single episode of black tarry stool today-likely setting of recent abdominal surgery - Plan: Continue iv Protonix. -Hold chemical anticoagulation -Will monitor for alarm signs of active bleeding with melena or hematochezia #GI ppx - pantoprazole #Diet -trickle feeds through NG tube Endo: #Diabetes Mellitus type II - A1C 6.7 % - Hold home glipizide and januvia - Plan: Continue to monitor blood sugars -Blood glucose is above 180 we will start the patient on medium insulin sliding scale Heme/Onc: #Acute anemia, ?Concern for GI bleed, acute drop in hemoglobin, ?In the setting of gastric perforation, patient received 2 units of PRBC 05/18 - Plan: Continue to monitor H & H. transfuse for hemoglobin less than 7. Infxs: # Leukocytosis -WBC 19.9 - most likely secondary to GI source from perforated gastric ulcer - 05/13/24 blood cultures preliminarly show no growth at 48 hours - Plan: Severe leukocytosis present. Continue IV Zosyn, follow-up final culture results and repeat hematology panel in am (Skin:) #Pressure Ulcer Prevention Disposition: ICU for AHRF & septic shock -on 05/18 patient is off of pressor support and extubated DVT Prophylaxis: Hold chemical anticoagulation in setting of possible GI bleed GI Prophylaxis: Pantoprozol-40 IV Diet: Trickle feeds through NG tube Lines: central line left IJ for dialysis Code status: Full Assessment and plan discussed with attending physician Dr. Travis Rivera (PGY-1)- Internal medicine resident
[2024-05-18] MEDS: HYDROmorphone INJ 2 MG/ML VIAL 1 MG IVP (18:20)
[2024-05-18] MEDS: HYDROcodone/APAP 10/325 TAB PO ×2 (19:35→23:40)
[2024-05-18 20:17] LABS: Hematocrit 33.4 % (36.0-46.0); Hemoglobin 11.3 g/dL (12.0-16.0)
[2024-05-19] VITALS (57 sets, daily range): BP systolic 74–163; BP diastolic 40–84; PULSE 85–102; RESP 8–21; TEMP 36.4–36.7; O2SAT 91–98; BMI 38.6
[2024-05-19] MEDS: HYDROmorphone INJ 2 MG/ML VIAL 1 MG IVP (02:38)
[2024-05-19] MEDS: HEPARIN SOD INJ 5000 UNIT/ML VIAL SC ×3 (05:01→21:31)
[2024-05-19 05:55] LABS: Basophils # (Auto) 0.1 Thou/mm3 (0.0-0.2); Basophils % (Auto) 1 % (0-2.5); Eosinophils % (Auto) 0 % (0-10); Hemoglobin 12.2 g/dL (12.0-16.0); Immature Granulocytes % (Auto) 1 % (0-0); Immature Granulocytes Auto 0.19 Thou/mm3 (0.00-0.00); Lymphocytes # (Auto) 0.6 Thou/mm3 (1.0-4.8); Lymphocytes % (Auto) 4 % (10-50); Mean Corpuscular Hemoglobin 28.2 pg (25.0-35.0); Mean Corpuscular Volume 86 fL (80-100); Monocytes # (Auto) 0.6 Thou/mm3 (0.0-0.8); Monocytes % (Auto) 4 % (0-12); Neutrophils # (Auto) 14.5 Thou/mm3 (1.8-7.7); Neutrophils % (Auto) 91 % (37-80); Nucleated Red Blood Cell # 0.86 Thou/mm3 (0.00-0.00); Nucleated Red Blood Cell % 5 /100 WBC (0); Platelet Count 237 Thou/mm3 (140-440); RDW Standard Deviation 49.7 fL (36.4-46.3); Red Blood Count 4.32 Miln/mm3 (4.00-5.20)
[2024-05-19 06:30] LABS: Alanine Aminotransferase 138 U/L (10-49); Albumin, Serum 3.1 gm/dL (3.4-4.8); Albumin/Globulin Ratio 1.1 (1.2-2.2); Alkaline Phosphatase 102 U/L (46-116); Anion Gap 12 (7-16); Aspartate Amino Transferase 88 U/L (0-34); BUN/Creatinine Ratio 16 Ratio (12-20); Bilirubin,Total 1.4 mg/dL (0.3-1.2); Blood Urea Nitrogen 59 mg/dL (9-23); Calcium 8.8 mg/dL (8.3-10.6); Calcium (Corrected) 9.5 mg/dL (8.5-10.1); Carbon Dioxide 22.5 mMol/L (20.0-31.0); Chloride 109 mMol/L (98-107); Creatinine (Component) 3.8 mg/dL (0.6-1.3); Globulin 2.7 gm/dL (2.3-3.5); Glucose 69 mg/dL (74-106); Magnesium 2.4 mg/dL (1.6-2.6); Osmolality,Calculated 299 (275-295); Phosphorous 6.2 mg/dL (2.4-5.1); Potassium 5.1 mMol/L (3.4-5.1); Sodium 143 mMol/L (136-145); Total Protein 5.8 gm/dL (5.7-8.2); eGFR 12 See Note
--- NOTE | 2024-05-19 08:25 | ESPR_ITS ---
Documentation for date of: 05/19/24 Subjective Subjective Brief History: 69F with HTN, CKDIII, pre DM and known gastric ulcers who was admitted 05/13 after being found down at home. Pt was admitted for encephalopathy and pneumonia, developed anemia for which EGD was planned today however this am had an OPERATIONS VICE PRESIDENT for tachycardia, hypotension and acute pain; she underwent CT AP showing pneumoperitoneum with air droplets adjacent to the stomach PMH: HTN, CKDIII, preDM, known gastric ulcers on EGD 10/2023 PSHx: None Meds: No antiplt or anticoagulation Allergies: NKDA Narrative: Hemoglobin 12 today from 6.5 after 2 units PRBC, no acute changes, BALAJI 13 cc past 24 hours, WBC downtrending Exam Vital Signs Temp Pulse Resp BP Pulse Ox O2 Del Method O2 Flow Rate 97.5 F 102 H 10 L 112/55 L 95 Humidified Nasal Cannula 3 05/19/24 08:13 05/19/24 08:13 05/19/24 08:13 05/19/24 08:13 05/19/24 08:13 05/19/24 07:00 05/19/24 08:13 FiO2 35 05/19/24 08:13 Constitutional Constitutional: no acute distress Routine Respiratory Exam Respiratory: Present no resp distress Routine Abdominal Exam Abdominal: Present soft, wound (Midline wound with aixa intact, no erythema, no fluctuance or drainage) and drain (BALAJI with serosanguineous output); Absent tenderness or distended Results Results: Laboratory Laboratory results: results reviewed Assessment & Plan Plan 69F with HTN, CKDIII, pre DM and known gastric ulcers who was admitted 05/13 after being found down at home, who developed pneumoperitoneum 05/15 now s/p emergent ex lap, repair of gastric perforation, gradually improving Advance tube feeds as tolerated, when safe patient may undergo speech and swallow and initiate p.o. diet accordingly Will leave BALAJI in place until patient is taking in a full diet Procedures Procedures Exploratory laparotomy, repair of perforated gastric ulcer
[2024-05-19] MEDS: DEXTROSE 50%-WATER INJ 50 ML SYRINGE IV (08:37)
[2024-05-19] MEDS: ALBUMIN HUMAN 25% IVPB 25 GM/100 ML BTL IV ×2 (08:48→09:18)
--- NOTE | 2024-05-19 09:04 | PC.NURSE ---
On dialysis at this time. BP trending down. UF off until BP is stable. Albumin 25 gms iv started for low bp support. Will monitor.
[2024-05-19 09:28] LABS: Base Excess, Venous -2 (-3-3); O2 Saturation, Venous 75 % (96-97); PCO2, Venous 50 mmHg (36-56); PO2, Venous 39 mmHg (15-58); pH, Venous 7.31 (7.33-7.66)
--- NOTE | 2024-05-19 09:32 | PC.SS ---
Update: Patient participating with dialysis today.
--- NOTE | 2024-05-19 09:32 | PC.NURSE ---
BP remains low 87/50, HR 92. UF on, UFR at 490. 2nd albumin infusing for low bp support. Ebony SPARKS aware, about to start levo for low bp. Will cont. to monitor
[2024-05-19] MEDS: Norepinephrine/D5W 8mg/250ml 8 MG/250 ML BAG 7.866 MG IV (09:35)
--- NOTE | 2024-05-19 09:47 | PC.NURSE ---
BP better. UFR increased to 990ml/hr. Levo infusing at .05 mcg/kg/min. Pt resting comfortably. Will monitor
--- NOTE | 2024-05-19 10:27 | CHAP ---
Patient was sleping. Said a silent prayer by the door.
--- NOTE | 2024-05-19 11:03 | ESPR_ITS ---
Documentation for date of: 05/19/24 Subjective Subjective Interval history: Patient evaluated Patient has been downgraded to telemetry from ICU Extubated Hemoglobin hematocrit is 12.0 and 37.0 no signs of any active bleeding passing flatus . Positive bowel sounds on abdominal examination Exam Vital Signs Temp Pulse Resp BP Pulse Ox O2 Del Method O2 Flow Rate 97.5 F 85 10 L 96/48 L 95 Humidified Nasal Cannula 3 05/19/24 08:13 05/19/24 10:45 05/19/24 08:13 05/19/24 10:45 05/19/24 08:13 05/19/24 07:00 05/19/24 08:13 FiO2 35 05/19/24 08:13 Objective Labs 05/19/24 05:27 05/19/24 05:27 Labs: Laboratory Results - last 24 hr 05/18/24 05/19/24 05/19/24 19:59 05:27 09:05 WBC 16.0 H RBC 4.32 Hgb 11.3 L D 12.2 Hct 33.4 L D 37.0 MCV 86 MCH 28.2 MCHC 33.0 RDW Std Deviation 49.7 H Plt Count 237 D Neut % (Auto) 91 H Lymph % (Auto) 4 L [place] % (Auto) 4 Eos % (Auto) 0 Baso % (Auto) 1 Neut # (Auto) 14.5 H Lymph # (Auto) 0.6 L [place] # (Auto) 0.6 Eos # (Auto) 0.0 Baso # (Auto) 0.1 Immature Gran # (Auto) 0.19 H Absolute Nucleated RBC 0.86 H Immature Gran % 1 H Nucleated RBC % 5 H VBG pH 7.31 L VBG pCO2 50 VBG pO2 39 VBG O2 Sat (Nirmala) 75 L VBG Base Excess -2 Sodium 143 Potassium 5.1 D Chloride 109 H Carbon Dioxide 22.5 Anion Gap 12 BUN 59 H Creatinine 3.8 H D Estim Creat Clear Calc 13.0 L eGFR 12 L* BUN/Creatinine Ratio 16 Glucose 69 L Calculated Osmolality 299 H Calcium 8.8 Corrected Calcium 9.5 Phosphorus 6.2 H Magnesium 2.4 Total Bilirubin 1.4 H D AST 88 H ALT 138 H Alkaline Phosphatase 102 D Total Protein 5.8 Albumin 3.1 L D Globulin 2.7 Albumin/Globulin Ratio 1.1 L Impressions Impression: # Status post exploratory laparotomy for perforated gastric ulcer Continue postoperative course and follow CBC continue IV Protonix ABG Interpretation ABG results: 05/13/24 05/15/24 05/15/24 08:29 15:28 16:03 ABG pH 7.39 7.05 L* D 7.17 L* D ABG pCO2 31 L 63 H D 45 D ABG pO2 78 L 38 L* D 84 D ABG HCO3 19 L 18 L 16 L ABG O2 Saturation 96 59 L 96 ABG Base Excess -5 L -12 L -11 L VBG pH VBG pCO2 VBG pO2 VBG Base Excess 05/16/24 05/17/24 05/18/24 04:38 04:03 04:20 ABG pH 7.28 L D 7.38 D 7.49 H D ABG pCO2 34 D 28 L 30 L ABG pO2 96 85 66 L ABG HCO3 16 L 17 L 23 ABG O2 Saturation 98 97 94 ABG Base Excess -10 L -8 L 0 VBG pH VBG pCO2 VBG pO2 VBG Base Excess 05/19/24 09:05 ABG pH ABG pCO2 ABG pO2 ABG HCO3 ABG O2 Saturation ABG Base Excess VBG pH 7.31 L VBG pCO2 50 VBG pO2 39 VBG Base Excess -2 Assessment & Plan A&P Narrative 69 y/o female with PMH of essential hypertension, gastric ulcers, hyperlipidemia, and DM2 was admitted to the hospital on 05/13/2024 due to acute encephalopathy likely secondary to sepsis secondary to CAP. 1. NSTEMI Type II 2. A-Fib with RVR, New onset -Patient has had elevated troponins from previous admissions with most recent on 11/17/2023 of 0.097 and prior to this on 12/28/2021 was 0.065 -On this admission intial troponins 0.09, uptrended to 0.239 and downtrended. -NSTEMI type II most likley in the setting of sepsis as patient has no chest pain. -EKG on this admission showed LVH with strain pattern and sinus tachycardia which is similiar to prior EKG on 11/22/2023 -CLARY ACS score of 115 points, 7% probability of -Patient in this afternoon developed A-Fib with RVR with ST depressions in anterolateral leads which are mostly rate related ST depressions -Echo ordered to rule out post operative WV and to evaluate for any new regional wall motion abnormalities and to reevaluate bradycardia contraction Plan: -No heparin drip at this time given the severe anemia and perforated gastric ulcer -Recommend to start Amio drip and Amio 200mg P.O. BID. -No anticoagulation given perforated ulcer -Recommend to place patient on high intensity statin and aspirin if GI and general surgery are okay with starting aspirin and there are no other contraindications -Recommend no further troponins as elevated troponins most likely secondary to sepsis from type II NSTEMI. -Patient will need further ischemic evaluation which can be done when she is more stable and can be pursued as outpatient 05/18/2024: Patient continues to be mechanically ventilated and sedated Patient continues to be on pressor support Patient was in atrial fibrillation on 1217 noted on WANG [address] depressions in anterolateral leads which are mostly rate related ST depressions. Echo ordered to rule out postoperative WV and showed no regional wall motion abnormalities and EF is 55 to 60% again and see detailed echo report below. Patient now converted to normal sinus rhythm after the amiodarone drip and patient is already started on amiodarone 200 mg p.o. twice daily. Recommend to check EKG to document the normal sinus rhythm and also to check the QTc as the patient is on amiodarone. No heparin drip as patient has perforated ulcer. Discussed with GI and surgery went to start anticoagulation with heparin drip initially and then later on Eliquis 5 mg twice daily No further troponins recommended. Mild troponin elevation is mostly secondary to NSTEMI type II in the setting of supply/demand mismatch. Patient will need further ischemic evaluation but can be done as outpatient when she improves from the present medical conditions recommend to replete potassium and magnesium to keep above 4 and 2 respectively to avoid any further arrhythmias. Normal LV size and function with an estimated EF of 55 to 60%. Mild LVH. Stage I diastolic dysfunction. RV not visualized appears to have normal size and function. 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 Mild AV Sclerosis without stenosis. 3. Acute decompensated heart failure (EF 60-65%) 4.Essential Hypertension -Patient has some SOB, trace edema and initial BNP was 309 -CXR did show some vascular congestion -Echo from 04/26/2024 had the following findings: Normal LV size and function. Mild LVH. Estimated EF 60-65% Normal RV size and function. Mild to moderate mitral valve stenosis, mean gradient 8mmHg. Moderate MAC. Mild AI, MR, TR. Mild AV sclerosis without stenosis Plan: -Hold diuresis in the setting of sepsis and soft BP, but if BP stabilizes will need diuresis -Strict CACHORRO's -Fluid restrictions -Low sodium diet -Daily weights -Recommend to potassium and magnessium above 4 and 2 respectively to avoid any arrhythmias. 5. Sepsis 2/2 perforated gastric ulcer 6. Community acquired pneumonia 7.Acute Encephalopathy 8. perforated gastric ulcer 9. Acute blood loss anemia 10. GI bleed -Continue current management as per primary care team 11.DM2 12. Hyperlipidemia -Continue current management as per primary care team Management of rest of the medical conditions as per primary team and other consultants. Thank you for the consult and allowing me to participate in the care of the patient. Cardiology will continue to follow. Jalen Davis M.D. Interventional Cardiology Time Spent With Patient Time: Total time spent is greater than 50% in coordination of care (as documented) at patient's floor/unit and/or counseling patient:
[2024-05-19] MEDS: HEPARIN SOD INJ 1000 UNIT/ML VIAL 10 ML 2500 UNIT INDWELLCAT (11:16)
--- NOTE | 2024-05-19 11:38 | ESPR_ITS ---
Documentation for date of: 05/19/24 Subjective Subjective Interval history: Patient seen in the ICU this morning. No overnight events. Patient has been sinus rhythm over night. Patient was extubated yesterday, awake but today she did not respond well to any questions. Patient was getting hemodialysis Recommend to continue Amio 200mg P.O. BID. Potassium 5.1 magnesium 2.4, recommend to replete potassium and magnesium to keep above 4 and 2 respectively to avoid any further arrhythmias. Echo on 05/16/2024 showed the following findings: Normal LV size and function with an estimated EF of 55 to 60%. Mild LVH. Stage I diastolic dysfunction. RV not visualized appears to have normal size and function. 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 Mild AV Sclerosis without stenosis. Exam Vital Signs Temp Pulse Resp BP Pulse Ox O2 Del Method O2 Flow Rate 97.9 F 93 12 111/60 97 Humidified Nasal Cannula 3 05/19/24 11:09 05/19/24 11:30 05/19/24 11:09 05/19/24 11:30 05/19/24 11:09 05/19/24 07:00 05/19/24 11:09 FiO2 35 05/19/24 11:09 Narrative Exam General: Off sedation and mechanical ventilation. Eyes: Pupils reactive to light, Ears: No visible ear discharge Nose: No visible nasal discharge Mouth/Throat: Dry mucous membranes, no redness, no lesions. Neck: Short neck , non-tender, no cervical lymphadenopathy. Lungs: Clear bilateral Cardio: Normal S1/S2, regular rhythm, systolic murmurs, no JVD Abdomen: Soft, non-tender, no palpable masses, peristalsis present, no guarding or rebound. Surgical scar covered with clean dressing. Extremities: Symmetrical, no significant deformities, trace peripheral edema , non-tender, peripheral pulses presents. Skin: No rashes, no lesions, warm to touch. Neuro: Unable to respond to questions. Objective Labs 05/19/24 05:27 05/19/24 05:27 Labs: Laboratory Results - last 24 hr 05/18/24 05/19/24 05/19/24 19:59 05:27 09:05 WBC 16.0 H RBC 4.32 Hgb 11.3 L D 12.2 Hct 33.4 L D 37.0 MCV 86 MCH 28.2 MCHC 33.0 RDW Std Deviation 49.7 H Plt Count 237 D Neut % (Auto) 91 H Lymph % (Auto) 4 L [place] % (Auto) 4 Eos % (Auto) 0 Baso % (Auto) 1 Neut # (Auto) 14.5 H Lymph # (Auto) 0.6 L [place] # (Auto) 0.6 Eos # (Auto) 0.0 Baso # (Auto) 0.1 Immature Gran # (Auto) 0.19 H Absolute Nucleated RBC 0.86 H Immature Gran % 1 H Nucleated RBC % 5 H VBG pH 7.31 L VBG pCO2 50 VBG pO2 39 VBG O2 Sat (Nirmala) 75 L VBG Base Excess -2 Sodium 143 Potassium 5.1 D Chloride 109 H Carbon Dioxide 22.5 Anion Gap 12 BUN 59 H Creatinine 3.8 H D Estim Creat Clear Calc 13.0 L eGFR 12 L* BUN/Creatinine Ratio 16 Glucose 69 L Calculated Osmolality 299 H Calcium 8.8 Corrected Calcium 9.5 Phosphorus 6.2 H Magnesium 2.4 Total Bilirubin 1.4 H D AST 88 H ALT 138 H Alkaline Phosphatase 102 D Total Protein 5.8 Albumin 3.1 L D Globulin 2.7 Albumin/Globulin Ratio 1.1 L ABG Interpretation ABG results: 05/13/24 05/15/24 05/15/24 08:29 15:28 16:03 ABG pH 7.39 7.05 L* D 7.17 L* D ABG pCO2 31 L 63 H D 45 D ABG pO2 78 L 38 L* D 84 D ABG HCO3 19 L 18 L 16 L ABG O2 Saturation 96 59 L 96 ABG Base Excess -5 L -12 L -11 L VBG pH VBG pCO2 VBG pO2 VBG Base Excess 05/16/24 05/17/24 05/18/24 04:38 04:03 04:20 ABG pH 7.28 L D 7.38 D 7.49 H D ABG pCO2 34 D 28 L 30 L ABG pO2 96 85 66 L ABG HCO3 16 L 17 L 23 ABG O2 Saturation 98 97 94 ABG Base Excess -10 L -8 L 0 VBG pH VBG pCO2 VBG pO2 VBG Base Excess 05/19/24 09:05 ABG pH ABG pCO2 ABG pO2 ABG HCO3 ABG O2 Saturation ABG Base Excess VBG pH 7.31 L VBG pCO2 50 VBG pO2 39 VBG Base Excess -2 Quality Measures Quality Measures VTE prophylaxis Advance care planning discussed with:: patient Assessment & Plan Assessment Current Active Medications: Generic Name Dose Route Start Last Admin Trade Name Freq PRN Reason Stop Dose Admin Hydrocodone Bitart/Acetaminophen 1 tab 05/18/24 18:02 05/18/24 23:40 Hydrocodone/Apap 10/325 Tab PO 05/23/24 18:01 1 tab Q4HR PRN Administration Pain 4-7 Amiodarone HCl 200 mg 05/16/24 12:00 05/18/24 20:24 Amiodarone Hcl 200 Mg Tablet PO 06/15/24 11:59 200 mg BID ANGELICA Administration Heparin Sodium (Porcine) 5,000 unit 05/16/24 14:00 05/19/24 05:01 Heparin Sod Inj 5000 Unit/Ml Vial SC 05/30/24 13:59 5,000 unit Q8HR ANGELICA Administration Heparin Sodium (Porcine) 2,500 unit 05/17/24 15:52 05/19/24 11:16 Heparin Sod Inj 1000 Unit/Ml Vial 10 Ml INDWELLCAT 05/31/24 15:51 2,500 unit PRN PRN Administration DIALYSIS Hydromorphone HCl 0.5 mg 05/14/24 15:35 05/18/24 14:53 Hydromorphone Inj 2 Mg/Ml Vial IVP 05/19/24 15:34 0.5 mg Q6HR PRN Administration PAIN SCALE 7-10 (Severe Azithromycin 500 mg/ Sodium 250 mls @ 250 mls/hr 05/14/24 09:00 05/18/24 08:12 Chloride IV 05/21/24 08:59 250 mls/hr QDAY ANGELICA Administration Protocol Fentanyl Citrate 2,500 mcg in 250 mls @ 2.5 mls/hr 05/15/24 10:28 05/18/24 12:29 Sublimaze Inj 2,500 Mcg/250 Ml Bag IV 05/20/24 10:27 0 mcg/hr .Q24H PRN 0 mls/hr PER PROTOCOL Titration Protocol 25 MCG/HR Albumin Human 25 gm in 100 mls @ 100 mls/min 05/17/24 15:52 05/19/24 09:18 Albuminar-25 Ivpb IV 05/20/24 15:51 100 mls/min PRN PRN Administration DIALYSIS Piperacillin Sod/Tazobactam 100 mls @ 200 mls/hr 05/18/24 14:30 05/18/24 20:23 Sod 4.5 gm/ Sodium Chloride IV 05/25/24 14:29 200 mls/hr Q12HR ANGELICA Administration Norepinephrine/Dextrose 8 mg in 250 mls @ 7.866 mls/hr 05/19/24 09:32 Levophed In D5w 8mg/250ml IV 06/18/24 09:31 .Q24H PRN PER PROTOCOL Protocol 0.05 MCG/KG/MIN Ondansetron HCl 4 mg 05/13/24 11:58 05/14/24 12:31 Ondansetron Inj 2 Mg/Ml Inj 2 Ml IV 06/12/24 11:57 4 mg Q6H PRN Administration NAUSEA OR VOMITING Protocol Pantoprazole Sodium 40 mg 05/15/24 21:00 05/18/24 20:23 Pantoprazole Inj 40 Mg Vial IVP 06/14/24 20:59 40 mg BID ANGELICA Administration Pharmacy Consult 1 each 05/16/24 10:27 Pharmacy Renal Dose Adjustment 1 Ea XX 06/15/24 10:26 PRN PRN CONSULT Plan 69 y/o female with PMH of essential hypertension, gastric ulcers, hyperlipidemia, and DM2 was admitted to the hospital on 05/13/2024 due to acute encephalopathy likely secondary to sepsis secondary to CAP. 1. NSTEMI Type II 2. A-Fib with RVR, New onset -Patient has had elevated troponins from previous admissions with most recent on 11/17/2023 of 0.097 and prior to this on 12/28/2021 was 0.065 -On this admission intial troponins 0.09, uptrended to 0.239 and downtrended. -NSTEMI type II most likley in the setting of sepsis as patient has no chest pain. -EKG on this admission showed LVH with strain pattern and sinus tachycardia which is similiar to prior EKG on 11/22/2023 -CLARY ACS score of 115 points, 7% probability of -Patient in this afternoon developed A-Fib with RVR with ST depressions in anterolateral leads which are mostly rate related ST depressions -Echo on 05/16/2024 showed the following findings: Normal LV size and function with an estimated EF of 55 to 60%. Mild LVH. Stage I diastolic dysfunction. RV not visualized appears to have normal size and function. 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 Mild AV Sclerosis without stenosis. Plan: -No heparin drip at this time given the severe anemia and perforated gastric ulcer -Recommend to continue Amio 200mg P.O. BID. -No anticoagulation given perforated ulcer -Recommend to place patient on high intensity statin and aspirin if GI and general surgery are okay with starting aspirin and there are no other contraindications -Recommend no further troponins as elevated troponins most likely secondary to sepsis from type II NSTEMI. -Patient will need further ischemic evaluation which can be done when she is more stable and can be pursued as outpatient 3. Acute decompensated heart failure (EF 55-60%) 4.Essential Hypertension -Patient has some SOB, trace edema and initial BNP was 309 -CXR did show some vascular congestion -Echo from 04/26/2024 had the following findings: Normal LV size and function. Mild LVH. Estimated EF 60-65% Normal RV size and function. Mild to moderate mitral valve stenosis, mean gradient 8mmHg. Moderate MAC. Mild AI, MR, TR. Mild AV sclerosis without stenosis -Echo on 05/16/2024 showed the following findings: Normal LV size and function with an estimated EF of 55 to 60%. Mild LVH. Stage I diastolic dysfunction. RV not visualized appears to have normal size and function. 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 Mild AV Sclerosis without stenosis. Plan: -Hold diuresis in the setting of sepsis and soft BP, but if BP stabilizes will need diuresis -Strict CACHORRO's -Fluid restrictions -Low sodium diet -Daily weights -Recommend to potassium and magnessium above 4 and 2 respectively to avoid any arrhythmias. 5. Sepsis 2/2 perforated gastric ulcer 6. Community acquired pneumonia 7.Acute Encephalopathy 8. perforated gastric ulcer 9. Acute blood loss anemia 10. GI bleed -Continue current management as per primary care team 11.DM2 12. Hyperlipidemia -Continue current management as per primary care team Continue rest of management as per primary team. We are grateful to be able to participate in Mrs. Castellanos's care. Thank you for the consult Plan of care discussed with attending Fraud Prevention Analyst, Dr. Susan Spears MD PGY-1 Attending Provider Attestation/Addendum I have personally seen and examined the patient separately on the above date of service and discussed the plan of care with the resident. I reviewed the resident Dr. Merino consultation progress note and agree with the resident findings and plan in the note above and have also edited the documentation to reflect my findings and plan. Jalen Davis M.D. Interventional Cardiology
--- NOTE | 2024-05-19 11:42 | PC.NURSE ---
3rd dialysis completed for 3 hrs. Able to removed 1500 ml of fluid net. Post tx VS BP 127/60, HR 95, Temp 97.9. Pt awake, respiration even and unlabored, sating at 95% on O2 at 3L/min via NC. Report given to Dayami SPARKS
[2024-05-19] MEDS: AMIODARONE HCL 200 MG TABLET PO ×2 (12:18→20:44)
[2024-05-19] MEDS: PIPER/TAZO INJ 4.5 GM in SODIUM CHLORIDE 0.9% (P) 100 ML IV ×2 (12:19→20:45)
[2024-05-19] MEDS: AZITHROMYCIN INJ 500 MG in SODIUM CHLORIDE 0.9% 250 ML 250 ML 250 MG IV (12:19)
[2024-05-19] MEDS: PANTOPRAZOLE INJ 40 MG VIAL IVP ×2 (12:20→20:45)
--- NOTE | 2024-05-19 13:06 | PC.SS ---
Update: Patient completed 3rd session of dialysis today. Bedside nurse informed of need for TB test. Dr. August is the logistics assistant following.
--- NOTE | 2024-05-19 14:03 | PCS.ST ---
New Swallow Eval order received s/p extubation. Pt is not able to actively participate in PO trials at this time. ST will follow up in AM.
--- NOTE | 2024-05-19 14:29 | PD.RESPRO ---
Documentation for date of: 05/19/24 Subjective Subjective Interval history: Mr. Castellanos is a [id number] with past medical history of prediabetes, CKD, hypertension, history of ulcers who was admitted to [facility] for sepsis secondary to pneumonia and acute metabolic encephalopathy. Patient was BIBA to the ED after being found unconscious on the floor. According to the son on admission patient's daughter found the patient at 3 AM passed out on the floor and unresponsive. Family is unaware along the patient was on the floor. 2 days ago patient started to develop abdominal pain and weakness all over her body associated with some diarrhea and shortness of breath. Patient's abdominal pain comes and goes from right side to left side of the abdomen. ED course patient was hypertensive tachycardic tachypneic and was saturating 92% on 5 L nasal cannula ED labs significant for WBCs 24.3, bicarb 19.6, glucose 259, lactic acid 2.2, BNP 304, troponin 0.09. 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, colonic diverticulosis, Cervical spine CT showed 3 mm radiolucency in C3 vertebral body Chest CTA showed mild aneurysmal dilatation ascending thoracic aorta AP dimension 4.3 cm and pulmonary artery hypertension with moderate vascular congestion Face CT shows no acute facial fracture, Lumbar spine CT shows no acute lumbar fracture severe acquired spinal stenosis L4-L5, Thoracic spine CT showed no acute fracture Brain MRI with MRA showed equally focal restricted diffusion brainstem medullary level significant stenosis of right P1 P2 segment posterior cerebral artery Postadmission, cardiology was consulted on admission because of elevated troponins, suspicion of NSTEMI type II, patient has acute decompensated heart failure per cardiology evaluation, neurology consulted because of patient's acute metabolic encephalopathy and GI was consulted for suspicion of GI bleed. Eventually on 05/15 rapid response was called for worsening chest pain, patient's map was consistently in 70s, was tachycardic tachypneic. CT angiogram showed pneumoperitoneum multiple air droplets adjacent to and within wall of stomach with suspicion of gastric perforation. General surgery was consulted for emergency surgery and patient had exploratory laparotomy with repair of perforated gastric ulcer with an omental patch. Patient was upgraded to ICU postop for further management patient currently on Levophed and vasopressor due to distributive shock, currently sedated and intubated on mechanical ventilation. Nephrology consulted due to concern of ADILSON. 05/16/24: Patient seen at bedside, patient's daughter present at bedside labs reviewed patient's creatinine 3.0, GFR 16 and BUN 60. Patient's baseline GFR more than 60, does report history of chronic kidney disease. Patient's urine output yesterday 820 mL, there is suspicion of acute kidney injury due to patient's underlying distributive shock versus hypovolemic shock, will continue to monitor patient's urine output and renal panel in a.m., plan of care discussed with patient's family at bedside they want to proceed with dialysis if needed. Will continue to monitor patient. 05/17/24: Patient seen at bedside, patient continues to remain sedated and is on pressors currently, patient's BUN 76, creatinine 3.5, GFR 14. Renal function has continued to decline, patient has minimal urine output only 320 mL in the last 24 hours, patient will be started on dialysis treatment today, will start dialysis post catheter placement. Will monitor labs in a.m., will continue to monitor patient. 05/18/24: Patient seen at bedside, continues to remain sedated and is on pressors currently, patient's hemoglobin was 6.5 in AM, plan to give 2 units of PRBC with dialysis today. Patient did receive hemodialysis yesterday for 2 hours 31 minutes. Today patient will receive another dialysis treatment, patient's urine output continues to remain low, about 200 cc in the last 24 hours, will continue to monitor renal function. 05/19/24: Patient seen at bedside, continues to was extubated yesterday, seen at bedside currently unresponsive. Patient is scheduled for hemodialysis today with goal to remove 2 L fluid, had hemodialysis yesterday and about 3.2 L fluid was removed. Patient's urine output continues to remain low, produced about 100 cc worth of urine in the last 24 hours, renal function shows a creatinine 3.8, BUN 59, EGFR 12, will monitor urine output and renal function. Exam Vital Signs Temp Pulse Resp BP Pulse Ox O2 Del Method O2 Flow Rate 97.9 F 92 13 88/57 L 95 Humidified Nasal Cannula 3 05/19/24 11:30 05/19/24 12:18 05/19/24 11:30 05/19/24 12:18 05/19/24 11:30 05/19/24 07:00 05/19/24 11:30 FiO2 35 05/19/24 11:30 Narrative Exam General: Off sedation, unresponsive, eyes open Eyes: Pupils reactive to light Ears: No visible ear discharge Nose: No visible nasal discharge Mouth/Throat: Dry mucous membranes, no redness, no lesions. Neck: Short neck , non-tender, no cervical lymphadenopathy. Catheter noted. Lungs: Clear bilateral Cardio: Normal S1/S2, regular rhythm, systolic murmurs, no JVD Abdomen: Soft, non-tender, no palpable masses, peristalsis present, no guarding or rebound. Surgical scar covered with clean dressing. Extremities: Symmetrical, no significant deformities, trace peripheral edema , non-tender, peripheral pulses presents. Skin: No rashes, no lesions, warm to touch. Neuro: Unable to respond to questions. Eyes open. Objective Labs 05/19/24 05:27 05/19/24 05:27 Labs: Laboratory Results - last 24 hr 05/18/24 05/19/24 05/19/24 19:59 05:27 09:05 WBC 16.0 H RBC 4.32 Hgb 11.3 L D 12.2 Hct 33.4 L D 37.0 MCV 86 MCH 28.2 MCHC 33.0 RDW Std Deviation 49.7 H Plt Count 237 D Neut % (Auto) 91 H Lymph % (Auto) 4 L Navarro % (Auto) 4 Eos % (Auto) 0 Baso % (Auto) 1 Neut # (Auto) 14.5 H Lymph # (Auto) 0.6 L Navarro # (Auto) 0.6 Eos # (Auto) 0.0 Baso # (Auto) 0.1 Immature Gran # (Auto) 0.19 H Absolute Nucleated RBC 0.86 H Immature Gran % 1 H Nucleated RBC % 5 H VBG pH 7.31 L VBG pCO2 50 VBG pO2 39 VBG O2 Sat (Nirmala) 75 L VBG Base Excess -2 Sodium 143 Potassium 5.1 D Chloride 109 H Carbon Dioxide 22.5 Anion Gap 12 BUN 59 H Creatinine 3.8 H D Estim Creat Clear Calc 13.0 L eGFR 12 L* BUN/Creatinine Ratio 16 Glucose 69 L Calculated Osmolality 299 H Calcium 8.8 Corrected Calcium 9.5 Phosphorus 6.2 H Magnesium 2.4 Total Bilirubin 1.4 H D AST 88 H ALT 138 H Alkaline Phosphatase 102 D Total Protein 5.8 Albumin 3.1 L D Globulin 2.7 Albumin/Globulin Ratio 1.1 L ABG Interpretation ABG results: 05/13/24 05/15/24 05/15/24 08:29 15:28 16:03 ABG pH 7.39 7.05 L* D 7.17 L* D ABG pCO2 31 L 63 H D 45 D ABG pO2 78 L 38 L* D 84 D ABG HCO3 19 L 18 L 16 L ABG O2 Saturation 96 59 L 96 ABG Base Excess -5 L -12 L -11 L VBG pH VBG pCO2 VBG pO2 VBG Base Excess 05/16/24 05/17/24 05/18/24 04:38 04:03 04:20 ABG pH 7.28 L D 7.38 D 7.49 H D ABG pCO2 34 D 28 L 30 L ABG pO2 96 85 66 L ABG HCO3 16 L 17 L 23 ABG O2 Saturation 98 97 94 ABG Base Excess -10 L -8 L 0 VBG pH VBG pCO2 VBG pO2 VBG Base Excess 05/19/24 09:05 ABG pH ABG pCO2 ABG pO2 ABG HCO3 ABG O2 Saturation ABG Base Excess VBG pH 7.31 L VBG pCO2 50 VBG pO2 39 VBG Base Excess -2 Quality Measures Quality Measures VTE prophylaxis Advance care planning discussed with:: patient and child Assessment & Plan Assessment Current Active Medications: Generic Name Dose Route Start Last Admin Trade Name Freq PRN Reason Stop Dose Admin Hydrocodone Bitart/Acetaminophen 1 tab 05/18/24 18:02 05/18/24 23:40 Hydrocodone/Apap 10/325 Tab PO 05/23/24 18:01 1 tab Q4HR PRN Administration Pain 4-7 Amiodarone HCl 200 mg 05/16/24 12:00 05/19/24 12:18 Amiodarone Hcl 200 Mg Tablet PO 06/15/24 11:59 200 mg BID ANGELICA Administration Heparin Sodium (Porcine) 5,000 unit 05/16/24 14:00 05/19/24 05:01 Heparin Sod Inj 5000 Unit/Ml Vial SC 05/30/24 13:59 5,000 unit Q8HR ANGELICA Administration Heparin Sodium (Porcine) 2,500 unit 05/17/24 15:52 05/19/24 11:16 Heparin Sod Inj 1000 Unit/Ml Vial 10 Ml INDWELLCAT 05/31/24 15:51 2,500 unit PRN PRN Administration DIALYSIS Hydromorphone HCl 0.5 mg 05/14/24 15:35 05/18/24 14:53 Hydromorphone Inj 2 Mg/Ml Vial IVP 05/19/24 15:34 0.5 mg Q6HR PRN Administration PAIN SCALE 7-10 (Severe Azithromycin 500 mg/ Sodium 250 mls @ 250 mls/hr 05/14/24 09:00 05/19/24 12:19 Chloride IV 05/21/24 08:59 250 mls/hr QDAY ANGELICA Administration Protocol Fentanyl Citrate 2,500 mcg in 250 mls @ 2.5 mls/hr 05/15/24 10:28 05/18/24 12:29 Sublimaze Inj 2,500 Mcg/250 Ml Bag IV 05/20/24 10:27 0 mcg/hr .Q24H PRN 0 mls/hr PER PROTOCOL Titration Protocol 25 MCG/HR Albumin Human 25 gm in 100 mls @ 100 mls/min 05/17/24 15:52 05/19/24 09:18 Albuminar-25 Ivpb IV 05/20/24 15:51 100 mls/min PRN PRN Administration DIALYSIS Piperacillin Sod/Tazobactam 100 mls @ 200 mls/hr 05/18/24 14:30 05/19/24 12:19 Sod 4.5 gm/ Sodium Chloride IV 05/25/24 14:29 200 mls/hr Q12HR ANGELICA Administration Norepinephrine/Dextrose 8 mg in 250 mls @ 7.866 mls/hr 05/19/24 09:32 05/19/24 13:02 Levophed In D5w 8mg/250ml IV 06/18/24 09:31 0.01 mcg/kg/min .Q24H PRN 1.573 mls/hr PER PROTOCOL Titration Protocol 0.05 MCG/KG/MIN Ondansetron HCl 4 mg 05/13/24 11:58 05/14/24 12:31 Ondansetron Inj 2 Mg/Ml Inj 2 Ml IV 06/12/24 11:57 4 mg Q6H PRN Administration NAUSEA OR VOMITING Protocol Pantoprazole Sodium 40 mg 05/15/24 21:00 05/19/24 12:20 Pantoprazole Inj 40 Mg Vial IVP 06/14/24 20:59 40 mg BID ANGELICA Administration Pharmacy Consult 1 each 05/16/24 10:27 Pharmacy Renal Dose Adjustment 1 Ea XX 06/15/24 10:26 PRN PRN CONSULT Plan Summary: Mr. Castellanos is a [id number] with past medical history of prediabetes, CKD, hypertension, history of ulcers who was admitted to [facility] for sepsis secondary to pneumonia and acute metabolic encephalopathy. Patient is currently sedated intubated in ICU status post exploratory laparotomy with repair of perforated gastric ulcer with an omental patch. Nephrology consulted for acute kidney injury. #Acute kidney injury #Acute Tubular Necrosis 2/2 shock Patient does report history of chronic kidney disease secondary to hypertension, baseline GFR noted to be more than 60, patient presented with GFR 45, improved initially to more than 60. Patient did have ADILSON on 05/15 with creatinine 2.4 since then creatinine worsened to 3.0 and nephrology was consulted. Urine analysis significant for protein 1+, specific gravity 1.048, RBC 37, WBC 9, uric acid crystals 4+, yeast present, urine random sodium less than 10. FENa 0.2 etiology prerenal. Patient had temporary Vas-Cath placed yesterday, received 2-hour 30 minutes of dialysis treatment, patient had 3.2 L removed yesterday. Patient's urine output continues to remain low, produced about 100 cc in the last 24 hours. Patient will receive another hemodialysis treatment today with goal to remove 2 L fluid. Plan: -Patient will receive hemodialysis treatment today with goal to remove 2 L fluid today -Renally dose medications -Avoid nephrotoxic agents -Monitor urine output, strict I&O's -Follow renal panel in a.m. Plan discussed with ICU team. #Metabolic acidosis, resolved #Lactic Acidosis #Acute Encephalopathy #Distributive shock #Acute decompensated HF #Elevated Troponin #Hyperlipidemia #Primary Hypertension #Acute Hypoxic Respiratory failure #Pneumoperitoneum #Peritonitis secondary to perforated gastric ulcer #Acute Upper GI bleed #Diabetes Mellitus type II #Acute anemia Management as per primary team. Case discussed with Attending Dr. August. Geovani Mahmood PGY1 Attending Provider Attestation/Addendum Patient seen and examined with resident physician Dr. Mahmood. Note reviewed, agree with findings and recommendations. Patient currently seen in ICU. Family at bedside. Currently on the ventilator. Patient with sepsis, peritonitis secondary to perforated gastric ulcer which was repaired. Currently on pressors. Urine output trending down. BUN and creatinine are significantly elevated. Suspect patient going towards ATN. Will monitor closely urine output and azotemia. Family requesting all aggressive measures including dialysis if indicated. No need for emergency dialysis. 1 amp of bicarbonate given. If no improvement in azotemia/decreasing urine output-will plan for renal replacement therapy in the next 24 hours. 05/19/2024 patient remains in ICU on ventilator. Urine output very minimal. Azotemia persists. Critical care time spent more than 35 minutes regarding plan of care and disease management Vas-Cath placed by ICU team. Noted to have significant edema. Patient currently off pressors Hemodialysis for 3 hours, blood flow 200, 2K, ultrafiltration 1 L, Epogen 6000, no heparin ordered. Plan of care discussed with the dialysis nurse. Please see dialysis flowsheet for further details. Plan of care discussed with ICU team.
--- NOTE | 2024-05-19 15:03 | ESPR_ITS ---
<Statement entered by Sinan Robles MD - 05/20/24 20:58> TOTAL TIME: 45MINUTES ON DIRECT MEDICAL CARE, MANAGEMENT - COORDINATION AND COUNSELING > 50% OF TOTAL TIME I saw and evaluated the patient. I reviewed the resident?s note and agree with findings and plan as documented in the resident?s note. remains extubated received diluadid overnight and this morning RR was 8-10 - pH was acceptable and narcotics stopped will readjust dosing - keeping in mind pt has ESRD remains on abx encephalopathy improving Documentation for date of: 05/19/24 Subjective Subjective Interval history: 05/16: Late in the evening, pt's MAP was dropping below 60 and required vasopressin in addition to levophed. Patient had a trial of pressure support which she did not tolerate and was overworking the vent therefore changed the setting back to assist-control. Patient sedation medication today, she became agitated and restless therefore increased the fentanyl to RASS goal of -3 and DC'd the propofol. Later in the afternoon patient had a new onset of A-fib and was started on amiodarone drip, ordered EKG, and echo. 05/17: No acute overnight events. Patient had no urinary output through the night and decreased urine output during the day. Patient continues to be on vasopressin and Levophed to maintain MAP above 65. She is currently sedated on fentanyl and propofol. Today patient got a catheter for hemodialysis as patient requires a session today with creatinine of 3.4 and GFR 14. Patient's kidney function continues to decline. Patient also failed spontaneous breathing trial so we will continue intubation today and will retry tomorrow. Echo findings are consistent with ejection fraction of 55 to 60% . Patient is transition from amiodarone drip to p.o. amiodarone. 05/18: Overnight patient hemoglobin dropped below 7 and received 2 units of PRBC. Patient is seen and examined at bedside patient continues to have 0 to 10 mL/h urinary output. Patient also had a black tarry bowel movement. Patient underwent HD fluid removal only and removed 2.1 L. Patient is also extubated today. She is doing better, breathing comfortably but complains of abdominal pain which is expected as she is status post abdominal surgery. ABGs are stable. 05/18: no acute overnight events. Pt continues to complain of abdominal pain and minimal urinary output pt. has another episode of black smeared bowel movement but Hgb is stable therefore will continue to monitor daily CBC. Pt is very sensitive to Dilaudid and morphine and causes her to have a decreased respiratory drive with respirations around 9 and 10. Will have to resort to another type of pain management possibly either Huger or IV Tylenol. Will try 0.25 Dilaudid. Patient underwent HD fluid removal and was able to tolerate removing only 1.5 L and patient became hypotensive and Levophed drip was started for a few hours and DC'd the Levophed at 2 PM. Exam Vital Signs Temp Pulse Resp BP Pulse Ox O2 Del Method O2 Flow Rate 97.9 F 92 13 88/57 L 95 Humidified Nasal Cannula 3 05/19/24 11:30 05/19/24 12:18 05/19/24 11:30 05/19/24 12:18 05/19/24 11:30 05/19/24 07:00 05/19/24 11:30 FiO2 35 05/19/24 11:30 Narrative Exam GENERAL: sedated and on michanical ventilation NEURO: unable to obtain due to patient being intubated and on mechanical ventilation HEENT: Atraumatic, Normocephalic. mucous membranes moist, left IJ HEART: Normal Heart Sounds LUNGS: Clear to auscultation with no wheezing or crackles. ABDOMEN: surgical scar is clean with BALAJI drain in place with minimal output SKIN: No Rash or ecchymoses EXTREMITIES: non pitting edema in upper and lower extremities, pedal pulses palpated Objective Labs 05/19/24 05:27 05/19/24 05:27 Labs: Laboratory Results - last 24 hr 05/18/24 05/19/24 05/19/24 19:59 05:27 09:05 WBC 16.0 H RBC 4.32 Hgb 11.3 L D 12.2 Hct 33.4 L D 37.0 MCV 86 MCH 28.2 MCHC 33.0 RDW Std Deviation 49.7 H Plt Count 237 D Neut % (Auto) 91 H Lymph % (Auto) 4 L Evangeline % (Auto) 4 Eos % (Auto) 0 Baso % (Auto) 1 Neut # (Auto) 14.5 H Lymph # (Auto) 0.6 L Evangeline # (Auto) 0.6 Eos # (Auto) 0.0 Baso # (Auto) 0.1 Immature Gran # (Auto) 0.19 H Absolute Nucleated RBC 0.86 H Immature Gran % 1 H Nucleated RBC % 5 H VBG pH 7.31 L VBG pCO2 50 VBG pO2 39 VBG O2 Sat (Nirmala) 75 L VBG Base Excess -2 Sodium 143 Potassium 5.1 D Chloride 109 H Carbon Dioxide 22.5 Anion Gap 12 BUN 59 H Creatinine 3.8 H D Estim Creat Clear Calc 13.0 L eGFR 12 L* BUN/Creatinine Ratio 16 Glucose 69 L Calculated Osmolality 299 H Calcium 8.8 Corrected Calcium 9.5 Phosphorus 6.2 H Magnesium 2.4 Total Bilirubin 1.4 H D AST 88 H ALT 138 H Alkaline Phosphatase 102 D Total Protein 5.8 Albumin 3.1 L D Globulin 2.7 Albumin/Globulin Ratio 1.1 L ABG Interpretation ABG results: 05/13/24 05/15/24 05/15/24 08:29 15:28 16:03 ABG pH 7.39 7.05 L* D 7.17 L* D ABG pCO2 31 L 63 H D 45 D ABG pO2 78 L 38 L* D 84 D ABG HCO3 19 L 18 L 16 L ABG O2 Saturation 96 59 L 96 ABG Base Excess -5 L -12 L -11 L VBG pH VBG pCO2 VBG pO2 VBG Base Excess 05/16/24 05/17/24 05/18/24 04:38 04:03 04:20 ABG pH 7.28 L D 7.38 D 7.49 H D ABG pCO2 34 D 28 L 30 L ABG pO2 96 85 66 L ABG HCO3 16 L 17 L 23 ABG O2 Saturation 98 97 94 ABG Base Excess -10 L -8 L 0 VBG pH VBG pCO2 VBG pO2 VBG Base Excess 05/19/24 09:05 ABG pH ABG pCO2 ABG pO2 ABG HCO3 ABG O2 Saturation ABG Base Excess VBG pH 7.31 L VBG pCO2 50 VBG pO2 39 VBG Base Excess -2 Quality Measures Quality Measures VTE prophylaxis Advance care planning discussed with:: child Assessment & Plan Assessment Current Active Medications: Generic Name Dose Route Start Last Admin Trade Name Freq PRN Reason Stop Dose Admin Hydrocodone Bitart/Acetaminophen 1 tab 05/19/24 14:44 Hydrocodone/Apap 5/325 Tablet PO 05/24/24 14:43 Q4HR PRN PAIN SCALE 1-3 (mild Amiodarone HCl 200 mg 05/16/24 12:00 05/19/24 12:18 Amiodarone Hcl 200 Mg Tablet PO 06/15/24 11:59 200 mg BID ANGELICA Administration Heparin Sodium (Porcine) 5,000 unit 05/16/24 14:00 05/19/24 05:01 Heparin Sod Inj 5000 Unit/Ml Vial SC 05/30/24 13:59 5,000 unit Q8HR ANGELICA Administration Heparin Sodium (Porcine) 2,500 unit 05/17/24 15:52 05/19/24 11:16 Heparin Sod Inj 1000 Unit/Ml Vial 10 Ml INDWELLCAT 05/31/24 15:51 2,500 unit PRN PRN Administration DIALYSIS Hydromorphone HCl 0.25 mg 05/19/24 14:38 Hydromorphone Inj 2 Mg/Ml Vial IVP 05/24/24 14:37 Q4HR PRN PAIN SCALE 4-6 (Moderate Hydromorphone HCl 0.5 mg 05/19/24 14:38 Hydromorphone Inj 2 Mg/Ml Vial IVP 05/24/24 14:37 Q6H PRN PAIN SCALE 7-10 (Severe Azithromycin 500 mg/ Sodium 250 mls @ 250 mls/hr 05/14/24 09:00 05/19/24 12:19 Chloride IV 05/21/24 08:59 250 mls/hr QDAY ANGELICA Administration Protocol Albumin Human 25 gm in 100 mls @ 100 mls/min 05/17/24 15:52 05/19/24 09:18 Albuminar-25 Ivpb IV 05/20/24 15:51 100 mls/min PRN PRN Administration DIALYSIS Piperacillin Sod/Tazobactam 100 mls @ 200 mls/hr 05/18/24 14:30 05/19/24 12:19 Sod 4.5 gm/ Sodium Chloride IV 05/25/24 14:29 200 mls/hr Q12HR ANGELICA Administration Ondansetron HCl 4 mg 05/13/24 11:58 05/14/24 12:31 Ondansetron Inj 2 Mg/Ml Inj 2 Ml IV 06/12/24 11:57 4 mg Q6H PRN Administration NAUSEA OR VOMITING Protocol Pantoprazole Sodium 40 mg 05/15/24 21:00 05/19/24 12:20 Pantoprazole Inj 40 Mg Vial IVP 06/14/24 20:59 40 mg BID ANGELICA Administration Pharmacy Consult 1 each 05/16/24 10:27 Pharmacy Renal Dose Adjustment 1 Ea XX 06/15/24 10:26 PRN PRN CONSULT Plan Ms. Castellanos is a 69-year-old female with past medical history significant for hypertension, diabetes, CKD stage III, and history of gastric ulcers who presented to the ED on 05/13/2024 after she was found unconscious on the floor. Per chart reviewing prior to this unconsciousness patient was having abdominal pain and generalized weakness with diarrhea and shortness of breath for 2 days. Patient was admitted to the hospital for treatment and management of sepsis secondary to pneumonia. Patient was given 1 L normal saline and started on ceftriaxone and azithromycin. patient underwent ex lap surgery for perforated gastric ulcer. Patient remained intubated postop and is upgraded to the ICU. Neuro: # Acute encephalopath-resolved -Likely multifactorial secondary to sepsis versus metabolic versus neurologic versus medication -This morning patient was not looking at the examiner patient recently has recovered from septic shock and high BUN, patient received Dilaudid overnight which decreased her respiratory drive and less responsive. -Later in the afternoon patient is more responsive and is able to follow commands however she is moaning in pain. Cardiovasc: #shock -resolved DDx: more likely Septic shock due to vasodilation -S/P aggressive fluid resuscitation, continue to monitor and will give additional fluids as needed -Plan: start levophed (05/15) and vasopression (05/15)to maintain MAP >65, wean as tolerated. -Status post 1 unit PRBC given 05/15/2024 for hemoglobin below 7 -Continue iv antibiotics and additional fluids as needed and treat underlying cause -Patient is off of all pressor supports 05/18. -During HD fluid removal pt became hypotensive and levophed was started for a few hours and off by 2 pm # New onset A-fib -Likely secondary to shock in the setting of abdominal surgery -EKG findings consistent with A-fib -Amiodarone 200 twice daily -Cardiology consulted #Acute exacerbation of HFpEF- resolved #Hx. of CHF -echo 05/16 -estimated EF of 55 to 60%, stage I diastolic dysfunction noted, Moderate to severe posterior MAC -Pt presented with SOB and 2+ edema in LE -elevated BNP from 304 --> 1110 -holding guideline directed medical therapy due to shock, will resume when able #Hyperlipidemia -Plan: Hold home atorvastatin as patient is npo. Will reinstate as tolerated #Primary Hypertension -Plan: Hold home amlodipine in setting of shock Pulm: #Acute Hypoxic Respiratory failure -resolved -2/2 to pulmonary edema in the setting of volume overload 2/2 ATN due to shock leading to oligoanuria -Further complicated by bilateral lung atelectasis in the setting of recent abdominal surgery and sedatives use -Patient is intubated and on mechanical ventilation (05/15) and extubated 05/18/2024 Renal: #Acute tubular necrosis - 2/2 septic shock - Baseline Cr appears to be 0.7 - Renally dose medications and avoid nephrotoxic agents - Plan: Patient underwent HD fluid removal and removed 2.1 L on 05/18 and 1.5 L on 05/19 - Guajardo catheter in place and monitor urine output closely. -repeat labs in am -Nephrology following GI: #Pneumoperitoneum #Peritonitis secondary to perforated gastric ulcer Patient found to have tender abdomen, rigidity in the epigastrium, chest x-ray showed elevation of hemidiaphragm, CT abdomen showed pneumoperitoneum, concern for perforated viscus, general surgeon Dr. Silva was consulted for emergency laparotomy and possible repair of perforated gastric ulcer. ?Patient was given IV fluid boluses, IV albumin 1 PRBC was ordered ?Antibiotic coverage was broadened to Zosyn to cover for anaerobic and enteric pathogens. - Plan: s/p Exploratory laparotomy & repair of perforated gastric ulcer - 05/15. -Surgery following and on pain management with Dilaudid 0.25 (hold if RR <14) and oxycodone as needed #Acute Upper GI bleed - stable - most likely secondary to perforated gastric ulcer -Patient had a single episode of black tarry stool today-likely setting of recent abdominal surgery - Plan: Continue iv Protonix. -Hold chemical anticoagulation -Will monitor for alarm signs of active bleeding with melena or hematochezia #GI ppx - pantoprazole #Diet -trickle feeds through NG tube Endo: #hypoglycemia -today Pt. had an episode of hypoglycemia finger stick glucose readings in the low 60's -Pt received D50 x1 #Diabetes Mellitus type II - A1C 6.7 % - Hold home glipizide and januvia - Plan: Continue to monitor blood sugars -Blood glucose is above 180 we will start the patient on medium insulin sliding scale Heme/Onc: #Acute anemia- resolved -Hgb 12.2, Hct 37.0 ?patient received 2 units of PRBC 05/18 due to acutely drop in Hgb below 7. No signs of active bleeding. Pt. had 2 episodes of black stool, due to recent abdominal surgery this maybe normal finding. Will continue to monitor for continous episodes and acutely drop in Hgb. -Plan: Continue to monitor H & H. transfuse for hemoglobin less than 7. Infxs: # Leukocytosis -WBC 16.0 - most likely secondary to GI source from perforated gastric ulcer -blood and urine cultures from 05/13- no growth - Plan: -Severe leukocytosis present. -Continue IV Zosyn, (Skin:) #Pressure Ulcer Prevention Disposition: ICU for AHRF & septic shock -on 05/18 patient is off of pressor support and extubated DVT Prophylaxis: Hold chemical anticoagulation in setting of possible GI bleed GI Prophylaxis: Pantoprozol-40 IV Diet: Trickle feeds through NG tube Lines: central line left IJ for dialysis Code status: Full Assessment and plan discussed with attending physician Dr. Travis Rivera (PGY-1)- Internal medicine resident
--- NOTE | 2024-05-19 15:40 | PD.RESEVENT ---
Documentation for date of: 05/19/24 Event Note Event Note: Ms. Castellanos is a 69-year-old female with past medical history significant for hypertension, diabetes, CKD stage III, and history of gastric ulcers who presented to the ED on 05/13/2024 after she was found unconscious on the floor. Per chart reviewing prior to this unconsciousness patient was having abdominal pain and generalized weakness with diarrhea and shortness of breath for 2 days. Patient was admitted to the hospital for treatment and management of sepsis secondary to pneumonia. Patient was given 1 L normal saline and started on ceftriaxone and azithromycin. patient underwent ex lap surgery for perforated gastric ulcer. Patient remained intubated postop and is upgraded to the ICU. Patient was extubated and weaned off pressors. While in the ICU, vascular catheter was placed and patient has received dialysis as tolerated. Dr. Silva from general surgery and Dr. August, nephrology are following. Patient is mildly hypotensive 113/45 otherwise vital signs are stable. We will assume care starting tomorrow 05/20/2024 at 0700. The patient's plan was discussed with attending Dr. Curry and senior resident Khang Barlow, DO PGY1 Internal Medicine
--- NOTE | 2024-05-19 15:52 | PC.SS ---
Patient has been downgraded to Tele on 05-19-24.
[2024-05-19] MEDS: HYDROmorphone INJ 2 MG/ML VIAL 0.5 MG IVP (16:57)
[2024-05-19] MEDS: HYDROmorphone INJ 2 MG/ML VIAL 0.25 MG IVP (22:11)
[2024-05-19] MEDS: HYDROcodone/APAP 5/325 TABLET 1 TAB PO (23:46)
[2024-05-20] VITALS (71 sets, daily range): BP systolic 69–151; BP diastolic 45–84; PULSE 71–156; RESP 9–32; TEMP 36–37; O2SAT 94–99; BMI 165.0; BMI 36.1
[2024-05-20] MEDS: HYDROmorphone INJ 2 MG/ML VIAL 0.5 MG IVP ×2 (02:03→22:59)
[2024-05-20] MEDS: HYDROcodone/APAP 5/325 TABLET 1 TAB PO (04:27)
--- NOTE | 2024-05-20 05:38 | XR_ITS ---
Examination: Abdomen AP single view Technique: AP portable supine abdomen, single view Exam date and time: May 20, 2024 0550 hrs. Indications: Hypotension rapid response today. Findings: Mild colonic ileus No small bowel obstruction No free air. Orogastric tube distal stomach Moderate osteopenia Impression: Mild colonic ileus
--- NOTE | 2024-05-20 05:38 | XR_ITS ---
Examination: AP chest single view Technique one AP portable upright chest single view Exam date and time: May 20, 2024 0553 hrs. Comparison May 17, 2024 Indications: Rapid response hypertension today. Findings: Mild CHF Moderate enlargement cardiac contour Prominent vascular congestion with early perihilar edema Left internal jugular temporary dialysis catheter tip right atrium No pneumothorax Impression: Mild CHF
[2024-05-20] MEDS: AMIODARONE 150 MG IVPB 150 MG/100 ML BAG 600 MG IV (05:40)
--- NOTE | 2024-05-20 05:45 | XR_ITS ---
Examination: CT brain head without contrast. 2-D sagittal coronal reconstructions Date and time of exam:May 20, 2024 1435 hrs. Indications: Acute encephalopathy today Comparison: May 13, 2024 CTDI: vol (mGy):51 DLP: (mGycm):1039 Technique: Multiple CT axial sections of the brain have been obtained, 5 mm slice thickness. Contrast has not been administered. 2-D sagittal, coronal reconstructions have been obtained Low dose protocols were performed. One or more of the following dose reduction techniques were used; automated exposure control, adjustment of the mA and/or KV according to patient size, use of iterative reconstruction technique. Findings: No significant ventricular enlargement. 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 No mass effect or midline shift Basal cisterns are not remarkable. Fourth ventricle is midline. Cranial vault intact. 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
[2024-05-20 05:47] LABS: Basophils % (Auto) 0 % (0-2.5); Eosinophils # (Auto) 0.1 Thou/mm3 (0.0-0.5); Eosinophils % (Auto) 1 % (0-10); Hematocrit 30.7 % (36.0-46.0); Hemoglobin 10.1 g/dL (12.0-16.0); Immature Granulocytes % (Auto) 1 % (0-0); Immature Granulocytes Auto 0.24 Thou/mm3 (0.00-0.00); Lymphocytes % (Auto) 5 % (10-50); Mean Corpuscular HGB Conc 32.9 g/dl (31.0-37.0); Mean Corpuscular Hemoglobin 28.1 pg (25.0-35.0); Mean Corpuscular Volume 86 fL (80-100); Monocytes # (Auto) 0.7 Thou/mm3 (0.0-0.8); Monocytes % (Auto) 4 % (0-12); Neutrophils # (Auto) 17.9 Thou/mm3 (1.8-7.7); Neutrophils % (Auto) 90 % (37-80); Nucleated Red Blood Cell # 0.41 Thou/mm3 (0.00-0.00); Nucleated Red Blood Cell % 2 /100 WBC (0); Platelet Count 270 Thou/mm3 (140-440); RDW Standard Deviation 50.6 fL (36.4-46.3); Red Blood Count 3.59 Miln/mm3 (4.00-5.20)
[2024-05-20] MEDS: AMIODARONE 360 MG IVPB 360 MG/200 ML BAG 33.333 MG IV (05:50)
[2024-05-20] MEDS: SODIUM CHLORIDE 0.9% 1000 ML 1,000 ML 999 ML IV (06:13)
[2024-05-20 06:14] LABS: Base Excess -3 (-3-3); HCO3 24 mEq/L (20-26); Inspired Oxygen, FIO2 21 %; O2 Saturation 91 % (91-98); PCO2 49 mmHg (32.0-48.0); PO2 63 mmHg (83-108)
[2024-05-20] MEDS: Norepinephrine/D5W 8mg/250ml 8 MG/250 ML BAG 4.41 MG IV (06:15)
[2024-05-20] MEDS: Norepinephrine/D5W 8mg/250ml 8 MG/250 ML BAG 20.151 MG IV (06:15)
[2024-05-20 06:16] LABS: Allen Test Not Performed; Inspired O2, VO2 Liters 3 L/min; Puncture Site Right Radial
[2024-05-20 06:17] LABS: Lactate (Lactic Acid) 1.3 mMol/L (0.4-2.0)
[2024-05-20] MEDS: HEPARIN SOD INJ 5000 UNIT/ML VIAL SC ×3 (06:17→21:05)
--- NOTE | 2024-05-20 06:20 | EVENTNT_ITS ---
Documentation for date of: 05/20/24 Event Note Event Note: Rapid response called sometime around 5:30 AM on 05/20 for patient initially in room 267 for blood pressure with a MAP in the low 50s with a heart rate in the 160s. Patient's airway breathing and circulation were assessed; moreover, patient remaining vitals were stable but she was not responsive to questioning. We started the patient on Amio drip, order chest x-ray and KUB, EKG, lactate, troponin and started initially 1 L normal saline bolus with an ABG. Patient's heart rate improved and 97 once amnio drip was started and MAP improved to 64 but did not go any higher, patient was satting 91 on 3 L with a respiratory rate in the the high 20s. Decision was made to upgrade the patient to ICU as the maps were not increasing rapidly and the patient appeared to be in distress, diaphoretic and agonal breathing. Decision was made to also order a CT without contrast of the head and brain was patient was stabilized. Patient was upgraded to room 255 in the ICU and started on Levophed drip and MAP improved in the 90s; at that time, decision was made to decrease 1 L to 500 cc bolus. Will sign out to morning team to follow-up on the orders during the rapid; however, chest x- ray and KUB initial assessment showed no acute process. Miguel Ángel Coker, PGY-1 Face to face evaluation was performed by me. I have personally seen and examined the patient. I discussed the assessment and plan with the entire medicine team. I reviewed available medical records, imaging studies, laboratory results. I agree with the above subjective data, objective findings, assessment and plan except as corrected by me or noted below Patient hypotensive, tachycardic tachycardic and diaphoretic. Stat imaging studies and labs ordered including KUB chest x-ray EKG. Normal saline bolus to improve hypotension, might need to start Levophed Transfer patient to ICU for close monitoring and impending suspected septic shock Once she is stable CT head without contrast to be done, consider MRI as well for encephalopathy to rule out stroke if labs show lower hemoglobin hold subcu heparin as well
[2024-05-20 06:33] LABS: Alanine Aminotransferase 81 U/L (10-49); Albumin, Serum 3.6 gm/dL (3.4-4.8); Albumin/Globulin Ratio 1.5 (1.2-2.2); Alkaline Phosphatase 80 U/L (46-116); Anion Gap 13 (7-16); Aspartate Amino Transferase 47 U/L (0-34); BUN/Creatinine Ratio 11 Ratio (12-20); Bilirubin,Total 1.5 mg/dL (0.3-1.2); Blood Urea Nitrogen 41 mg/dL (9-23); Calcium 9.2 mg/dL (8.3-10.6); Calcium (Corrected) 9.5 mg/dL (8.5-10.1); Carbon Dioxide 25.4 mMol/L (20.0-31.0); Chloride 104 mMol/L (98-107); Creatinine (Component) 3.6 mg/dL (0.6-1.3); Estimated Creatinine Clearance 39.6 mL/min (>60); Globulin 2.4 gm/dL (2.3-3.5); Glucose 110 mg/dL (74-106); Magnesium 2.4 mg/dL (1.6-2.6); Osmolality,Calculated 294 (275-295); Phosphorous 4.9 mg/dL (2.4-5.1); Potassium 4.1 mMol/L (3.4-5.1); Sodium 142 mMol/L (136-145); eGFR 13 See Note
[2024-05-20 07:12] LABS: Troponin I 0.192 ng/mL (0.0-0.045)
[2024-05-20] MEDS: PIPER/TAZO INJ 4.5 GM in SODIUM CHLORIDE 0.9% (P) 100 ML IV (08:20)
[2024-05-20] MEDS: PANTOPRAZOLE INJ 40 MG VIAL IVP ×2 (08:20→21:04)
[2024-05-20] MEDS: AZITHROMYCIN INJ 500 MG in SODIUM CHLORIDE 0.9% 250 ML 250 ML 250 MG IV (08:35)
--- NOTE | 2024-05-20 09:40 | ESPR_ITS ---
Documentation for date of: 05/20/24 Subjective Subjective Interval history: Mr. Castellanos is a [id number] with past medical history of prediabetes, CKD, hypertension, history of ulcers who was admitted to [facility] for sepsis secondary to pneumonia and acute metabolic encephalopathy. Patient was BIBA to the ED after being found unconscious on the floor. According to the son on admission patient's daughter found the patient at 3 AM passed out on the floor and unresponsive. Family is unaware along the patient was on the floor. 2 days ago patient started to develop abdominal pain and weakness all over her body associated with some diarrhea and shortness of breath. Patient's abdominal pain comes and goes from right side to left side of the abdomen. ED course patient was hypertensive tachycardic tachypneic and was saturating 92% on 5 L nasal cannula ED labs significant for WBCs 24.3, bicarb 19.6, glucose 259, lactic acid 2.2, BNP 304, troponin 0.09. 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, colonic diverticulosis, Cervical spine CT showed 3 mm radiolucency in C3 vertebral body Chest CTA showed mild aneurysmal dilatation ascending thoracic aorta AP dimension 4.3 cm and pulmonary artery hypertension with moderate vascular congestion Face CT shows no acute facial fracture, Lumbar spine CT shows no acute lumbar fracture severe acquired spinal stenosis L4-L5, Thoracic spine CT showed no acute fracture Brain MRI with MRA showed equally focal restricted diffusion brainstem medullary level significant stenosis of right P1 P2 segment posterior cerebral artery Postadmission, cardiology was consulted on admission because of elevated troponins, suspicion of NSTEMI type II, patient has acute decompensated heart failure per cardiology evaluation, neurology consulted because of patient's acute metabolic encephalopathy and GI was consulted for suspicion of GI bleed. Eventually on 05/15 rapid response was called for worsening chest pain, patient's map was consistently in 70s, was tachycardic tachypneic. CT angiogram showed pneumoperitoneum multiple air droplets adjacent to and within wall of stomach with suspicion of gastric perforation. General surgery was consulted for emergency surgery and patient had exploratory laparotomy with repair of perforated gastric ulcer with an omental patch. Patient was upgraded to ICU postop for further management patient currently on Levophed and vasopressor due to distributive shock, currently sedated and intubated on mechanical ventilation. Nephrology consulted due to concern of ADILSON. 05/16/24: Patient seen at bedside, patient's daughter present at bedside labs reviewed patient's creatinine 3.0, GFR 16 and BUN 60. Patient's baseline GFR more than 60, does report history of chronic kidney disease. Patient's urine output yesterday 820 mL, there is suspicion of acute kidney injury due to patient's underlying distributive shock versus hypovolemic shock, will continue to monitor patient's urine output and renal panel in a.m., plan of care discussed with patient's family at bedside they want to proceed with dialysis if needed. Will continue to monitor patient. 05/17/24: Patient seen at bedside, patient continues to remain sedated and is on pressors currently, patient's BUN 76, creatinine 3.5, GFR 14. Renal function has continued to decline, patient has minimal urine output only 320 mL in the last 24 hours, patient will be started on dialysis treatment today, will start dialysis post catheter placement. Will monitor labs in a.m., will continue to monitor patient. 05/18/24: Patient seen at bedside, continues to remain sedated and is on pressors currently, patient's hemoglobin was 6.5 in AM, plan to give 2 units of PRBC with dialysis today. Patient did receive hemodialysis yesterday for 2 hours 31 minutes. Today patient will receive another dialysis treatment, patient's urine output continues to remain low, about 200 cc in the last 24 hours, will continue to monitor renal function. 05/19/24: Patient seen at bedside, continues to was extubated yesterday, seen at bedside currently unresponsive. Patient is scheduled for hemodialysis today with goal to remove 2 L fluid, had hemodialysis yesterday and about 3.2 L fluid was removed. Patient's urine output continues to remain low, produced about 100 cc worth of urine in the last 24 hours, renal function shows a creatinine 3.8, BUN 59, EGFR 12, will monitor urine output and renal function. 05/20/24: Patient seen at bedside, was downgraded to floors yesterday, was hypotensive overnight, was upgraded to ICU, currently on pressors, agonal breathing noted, will hold dialysis today, patient did receive dialysis yesterday, had about 1.5 L fluid removed. Patient's urine output continues to remain low. Will continue to monitor patient closely. Exam Vital Signs Temp Pulse Resp BP Pulse Ox O2 Del Method O2 Flow Rate 98.6 F 88 25 H 122/74 97 Nasal Cannula 3 05/20/24 08:00 05/20/24 09:30 05/20/24 09:30 05/20/24 09:30 05/20/24 09:30 05/20/24 09:00 05/20/24 09:00 FiO2 35 05/19/24 11:30 Narrative Exam General: Off sedation, unresponsive, eyes open Eyes: Pupils reactive to light Ears: No visible ear discharge Nose: No visible nasal discharge Mouth/Throat: Dry mucous membranes, no redness, no lesions. Neck: Short neck , non-tender, no cervical lymphadenopathy. Catheter noted. Lungs: Clear bilateral Cardio: Normal S1/S2, regular rhythm, systolic murmurs, no JVD Abdomen: Soft, non-tender, no palpable masses, peristalsis present, no guarding or rebound. Surgical scar covered with clean dressing. BALAJI drain with serosanguineous fluid. Extremities: Symmetrical, no significant deformities, trace peripheral edema , non-tender, peripheral pulses presents. Skin: No rashes, no lesions, warm to touch. Neuro: Unable to respond to questions. Eyes open. Objective Labs 05/20/24 04:34 05/20/24 04:34 Labs: Laboratory Results - last 24 hr 05/20/24 05/20/24 05/20/24 04:34 06:05 06:25 WBC 20.0 H RBC 3.59 L Hgb 10.1 L D Hct 30.7 L MCV 86 MCH 28.1 MCHC 32.9 RDW Std Deviation 50.6 H Plt Count 270 D Neut % (Auto) 90 H Lymph % (Auto) 5 L [place] % (Auto) 4 Eos % (Auto) 1 Baso % (Auto) 0 Neut # (Auto) 17.9 H Lymph # (Auto) 1.0 [place] # (Auto) 0.7 Eos # (Auto) 0.1 Baso # (Auto) 0.0 Immature Gran # (Auto) 0.24 H Absolute Nucleated RBC 0.41 H Immature Gran % 1 H Nucleated RBC % 2 H Puncture Site Right Radial ABG pH 7.30 L D ABG pCO2 49 H D ABG pO2 63 L ABG HCO3 24 ABG O2 Saturation 91 ABG Base Excess -3 Oxygen Liter Flow 3 FiO2 21 Sodium 142 Potassium 4.1 D Chloride 104 Carbon Dioxide 25.4 Anion Gap 13 BUN 41 H Creatinine 3.6 H Estim Creat Clear Calc 39.6 L eGFR 13 L* BUN/Creatinine Ratio 11 L Glucose 110 H D Calculated Osmolality 294 Lactic Acid 1.3 Calcium 9.2 Corrected Calcium 9.5 Phosphorus 4.9 Magnesium 2.4 Total Bilirubin 1.5 H AST 47 H ALT 81 H Alkaline Phosphatase 80 D Troponin I 0.192 H* Total Protein 6.0 Albumin 3.6 D Globulin 2.4 Albumin/Globulin Ratio 1.5 ABG Interpretation ABG results: 05/13/24 05/15/24 05/15/24 08:29 15:28 16:03 ABG pH 7.39 7.05 L* D 7.17 L* D ABG pCO2 31 L 63 H D 45 D ABG pO2 78 L 38 L* D 84 D ABG HCO3 19 L 18 L 16 L ABG O2 Saturation 96 59 L 96 ABG Base Excess -5 L -12 L -11 L VBG pH VBG pCO2 VBG pO2 VBG Base Excess 05/16/24 05/17/24 05/18/24 04:38 04:03 04:20 ABG pH 7.28 L D 7.38 D 7.49 H D ABG pCO2 34 D 28 L 30 L ABG pO2 96 85 66 L ABG HCO3 16 L 17 L 23 ABG O2 Saturation 98 97 94 ABG Base Excess -10 L -8 L 0 VBG pH VBG pCO2 VBG pO2 VBG Base Excess 05/19/24 05/20/24 09:05 06:05 ABG pH 7.30 L D ABG pCO2 49 H D ABG pO2 63 L ABG HCO3 24 ABG O2 Saturation 91 ABG Base Excess -3 VBG pH 7.31 L VBG pCO2 50 VBG pO2 39 VBG Base Excess -2 Quality Measures Quality Measures VTE prophylaxis Advance care planning discussed with:: patient Assessment & Plan Assessment Current Active Medications: Generic Name Dose Route Start Last Admin Trade Name Freq PRN Reason Stop Dose Admin Hydrocodone Bitart/Acetaminophen 1 tab 05/19/24 14:44 05/20/24 04:27 Hydrocodone/Apap 5/325 Tablet PO 05/24/24 14:43 1 tab Q4HR PRN Administration PAIN SCALE 1-3 (mild Albuterol/Ipratropium 3 ml 05/20/24 09:23 Albuterol/Ipratropium (Duoneb) Rt Jimena 3 Ml Nebu INH 06/19/24 12:59 Q6HRRT PRN SOB or Wheeze Amiodarone HCl 200 mg 05/16/24 12:00 05/19/24 20:44 Amiodarone Hcl 200 Mg Tablet PO 06/15/24 11:59 200 mg BID ANGELICA Administration Heparin Sodium (Porcine) 5,000 unit 05/16/24 14:00 05/20/24 06:17 Heparin Sod Inj 5000 Unit/Ml Vial SC 05/30/24 13:59 5,000 unit Q8HR ANGELICA Administration Heparin Sodium (Porcine) 2,500 unit 05/17/24 15:52 05/19/24 11:16 Heparin Sod Inj 1000 Unit/Ml Vial 10 Ml INDWELLCAT 05/31/24 15:51 2,500 unit PRN PRN Administration DIALYSIS Hydromorphone HCl 0.25 mg 05/19/24 14:38 05/19/24 22:11 Hydromorphone Inj 2 Mg/Ml Vial IVP 05/24/24 14:37 0.25 mg Q4HR PRN Administration PAIN SCALE 4-6 (Moderate Hydromorphone HCl 0.5 mg 05/19/24 14:38 05/20/24 02:03 Hydromorphone Inj 2 Mg/Ml Vial IVP 05/24/24 14:37 0.5 mg Q6H PRN Administration PAIN SCALE 7-10 (Severe Azithromycin 500 mg/ Sodium 250 mls @ 250 mls/hr 05/14/24 09:00 05/20/24 08:35 Chloride IV 05/21/24 08:59 250 mls/hr QDAY ANGELICA Administration Protocol Albumin Human 25 gm in 100 mls @ 100 mls/min 05/17/24 15:52 05/20/24 08:50 Albuminar-25 Ivpb IV 05/20/24 15:51 Infused PRN PRN Infusion DIALYSIS Amiodarone HCl/Dextrose 360 mg in 200 mls @ 33.333 mls/hr 05/20/24 06:00 05/20/24 05:50 Nexterone Ivpb IV 05/20/24 11:59 33.333 mls/hr .Q6H ONE Administration Amiodarone HCl/Dextrose 360 mg in 200 mls @ 16.667 mls/hr 05/20/24 12:00 Nexterone Ivpb IV 05/21/24 11:59 .Q12H ANGELICA Norepinephrine/Dextrose 8 mg in 250 mls @ 7.35 mls/hr 05/20/24 06:56 05/20/24 09:00 Levophed In D5w 8mg/250ml IV 06/19/24 06:55 0.05 mcg/kg/min .Q24H PRN 7.35 mls/hr PER PROTOCOL Titration Protocol 0.05 MCG/KG/MIN Piperacillin/Tazobactam/Dextrose 50 mls @ 12.5 mls/hr 05/20/24 14:00 Zosyn IV 05/27/24 13:59 Q8HR ANGELICA Ondansetron HCl 4 mg 05/13/24 11:58 05/14/24 12:31 Ondansetron Inj 2 Mg/Ml Inj 2 Ml IV 06/12/24 11:57 4 mg Q6H PRN Administration NAUSEA OR VOMITING Protocol Pantoprazole Sodium 40 mg 05/15/24 21:00 05/20/24 08:20 Pantoprazole Inj 40 Mg Vial IVP 06/14/24 20:59 40 mg BID ANGELICA Administration Pharmacy Consult 1 each 05/16/24 10:27 Pharmacy Renal Dose Adjustment 1 Ea XX 06/15/24 10:26 PRN PRN CONSULT Plan Summary: Mr. Castellanos is a [id number] with past medical history of prediabetes, CKD, hypertension, history of ulcers who was admitted to [facility] for sepsis secondary to pneumonia and acute metabolic encephalopathy. Patient is currently sedated intubated in ICU status post exploratory laparotomy with repair of perforated gastric ulcer with an omental patch. Nephrology consulted for acute kidney injury. #Acute kidney injury #Acute Tubular Necrosis 2/2 shock Patient does report history of chronic kidney disease secondary to hypertension, baseline GFR noted to be more than 60, patient presented with GFR 45, improved initially to more than 60. Patient did have ADILSON on 05/15 with creatinine 2.4 since then creatinine worsened to 3.0 and nephrology was consulted. Urine analysis significant for protein 1+, specific gravity 1.048, RBC 37, WBC 9, uric acid crystals 4+, yeast present, urine random sodium less than 10. FENa 0.2 etiology prerenal. Patient had temporary Vas-Cath placed yesterday, received 2-hour 30 minutes of dialysis treatment, patient had 3.2 L removed yesterday. Patient's urine output continues to remain low, produced about 100 cc in the last 24 hours. Patient received dialysis treatment yesterday with 1.5 L fluid removed Plan: -Patient received hemodialysis treatment yesterday, had about 1.5 L fluid removed -Will hold off on dialysis treatment today -Renally dose medications -Avoid nephrotoxic agents -Monitor urine output, strict I&O's -Follow renal panel in a.m. Plan discussed with ICU team. #Metabolic acidosis, resolved #Lactic Acidosis #Acute Encephalopathy #Distributive shock #Acute decompensated HF #Elevated Troponin #Hyperlipidemia #Primary Hypertension #Acute Hypoxic Respiratory failure #Pneumoperitoneum #Peritonitis secondary to perforated gastric ulcer #Acute Upper GI bleed #Diabetes Mellitus type II #Acute anemia Management as per primary team. Case discussed with Attending Dr. August. Geovani Mahmood PGY1 Attending Provider Attestation/Addendum Patient seen and examined with resident physician Dr. Mahmood. Note reviewed, agree with findings and recommendations. Patient currently seen in ICU. Family at bedside. Currently on the ventilator. Patient with sepsis, peritonitis secondary to perforated gastric ulcer which was repaired. Currently on pressors. Urine output trending down. BUN and creatinine are significantly elevated. Suspect patient going towards ATN. Will monitor closely urine output and azotemia. Family requesting all aggressive measures including dialysis if indicated. No need for emergency dialysis. 1 amp of bicarbonate given. If no improvement in azotemia/decreasing urine output-will plan for renal replacement therapy in the next 24 hours. 05/20/2024 patient was brought back to ICU for hypotension and A-fib with RVR. Currently on amiodarone drip and pressors. Blood pressure on the lower side. Did receive 2 dialysis treatments. Will hold dialysis today and reeval tomorrow. Plan of care discussed with ICU team.
[2024-05-20 09:46] LABS: Troponin I 0.172 ng/mL (0.0-0.045)
--- NOTE | 2024-05-20 10:51 | PD.RESPRO ---
Documentation for date of: 05/20/24 Subjective Subjective Interval history: Patient seen in the ICU this morning. No overnight events. Patient has been sinus rhythm over night with some episodes of A-fib and then back to Sinus rhythm. Patient had a rapid response called last evening due to hypotension. Recommend to continue Amio drip as well as amiodarone 200 mg BID. Potassium 4.1 magnesium 2.4, recommend to replete potassium and magnesium to keep above 4 and 2 respectively to avoid any further arrhythmias. Echo on 05/16/2024 showed the following findings: Normal LV size and function with an estimated EF of 55 to 60%. Mild LVH. Stage I diastolic dysfunction. RV not visualized appears to have normal size and function. 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 Mild AV Sclerosis without stenosis. Exam Vital Signs Temp Pulse Resp BP Pulse Ox O2 Del Method O2 Flow Rate 98.6 F 86 20 126/59 L 97 Nasal Cannula 3 05/20/24 08:00 05/20/24 10:45 05/20/24 10:45 05/20/24 10:45 05/20/24 10:45 05/20/24 10:00 05/20/24 10:00 FiO2 35 05/19/24 11:30 Narrative Exam General: Off sedation and mechanical ventilation. Eyes: Pupils reactive to light, Ears: No visible ear discharge Nose: No visible nasal discharge Mouth/Throat: Dry mucous membranes, no redness, no lesions. Neck: Short neck , non-tender, no cervical lymphadenopathy. Lungs: Agonal breathing Cardio: Normal S1/S2, regular rhythm, systolic murmurs, no JVD Abdomen: Soft, non-tender, no palpable masses, peristalsis present, no guarding or rebound. Surgical scar covered with clean dressing. Extremities: Symmetrical, no significant deformities, trace peripheral edema , non-tender, peripheral pulses presents. Skin: No rashes, no lesions, warm to touch. Neuro: Unable to respond to questions. Objective Labs 05/21/24 04:45 05/21/24 04:45 Labs: Laboratory Results - last 24 hr 05/20/24 05/20/24 05/20/24 04:34 06:05 06:25 WBC 20.0 H RBC 3.59 L Hgb 10.1 L D Hct 30.7 L MCV 86 MCH 28.1 MCHC 32.9 RDW Std Deviation 50.6 H Plt Count 270 D Neut % (Auto) 90 H Lymph % (Auto) [address] [place] % (Auto) 4 Eos % (Auto) 1 Baso % (Auto) 0 Neut # (Auto) 17.9 H Lymph # (Auto) 1.0 [place] # (Auto) 0.7 Eos # (Auto) 0.1 Baso # (Auto) 0.0 Immature Gran # (Auto) 0.24 H Absolute Nucleated RBC 0.41 H Immature Gran % 1 H Nucleated RBC % 2 H Puncture Site Right Radial ABG pH 7.30 L D ABG pCO2 49 H D ABG pO2 63 L ABG HCO3 24 ABG O2 Saturation 91 ABG Base Excess -3 Oxygen Liter Flow 3 FiO2 21 Sodium 142 Potassium 4.1 D Chloride 104 Carbon Dioxide 25.4 Anion Gap 13 BUN 41 H Creatinine 3.6 H Estim Creat Clear Calc 39.6 L eGFR 13 L* BUN/Creatinine Ratio 11 L Glucose 110 H D Calculated Osmolality 294 Lactic Acid 1.3 Calcium 9.2 Corrected Calcium 9.5 Phosphorus 4.9 Magnesium 2.4 Total Bilirubin 1.5 H AST 47 H ALT 81 H Alkaline Phosphatase 80 D Troponin I 0.192 H* Total Protein 6.0 Albumin 3.6 D Globulin 2.4 Albumin/Globulin Ratio 1.5 05/20/24 09:05 WBC RBC Hgb Hct MCV MCH MCHC RDW Std Deviation Plt Count Neut % (Auto) Lymph % (Auto) [place] % (Auto) Eos % (Auto) Baso % (Auto) Neut # (Auto) Lymph # (Auto) [place] # (Auto) Eos # (Auto) Baso # (Auto) Immature Gran # (Auto) Absolute Nucleated RBC Immature Gran % Nucleated RBC % Puncture Site ABG pH ABG pCO2 ABG pO2 ABG HCO3 ABG O2 Saturation ABG Base Excess Oxygen Liter Flow FiO2 Sodium Potassium Chloride Carbon Dioxide Anion Gap BUN Creatinine Estim Creat Clear Calc eGFR BUN/Creatinine Ratio Glucose Calculated Osmolality Lactic Acid Calcium Corrected Calcium Phosphorus Magnesium Total Bilirubin AST ALT Alkaline Phosphatase Troponin I 0.172 H* Total Protein Albumin Globulin Albumin/Globulin Ratio ABG Interpretation ABG results: 05/13/24 05/15/24 05/15/24 08:29 15:28 16:03 ABG pH 7.39 7.05 L* D 7.17 L* D ABG pCO2 31 L 63 H D 45 D ABG pO2 78 L 38 L* D 84 D ABG HCO3 19 L 18 L 16 L ABG O2 Saturation 96 59 L 96 ABG Base Excess -5 L -12 L -11 L VBG pH VBG pCO2 VBG pO2 VBG Base Excess 05/16/24 05/17/24 05/18/24 04:38 04:03 04:20 ABG pH 7.28 L D 7.38 D 7.49 H D ABG pCO2 34 D 28 L 30 L ABG pO2 96 85 66 L ABG HCO3 16 L 17 L 23 ABG O2 Saturation 98 97 94 ABG Base Excess -10 L -8 L 0 VBG pH VBG pCO2 VBG pO2 VBG Base Excess 05/19/24 05/20/24 09:05 06:05 ABG pH 7.30 L D ABG pCO2 49 H D ABG pO2 63 L ABG HCO3 24 ABG O2 Saturation 91 ABG Base Excess -3 VBG pH 7.31 L VBG pCO2 50 VBG pO2 39 VBG Base Excess -2 Quality Measures Quality Measures VTE prophylaxis Advance care planning discussed with:: patient Assessment & Plan Assessment Current Active Medications: Generic Name Dose Route Start Last Admin Trade Name Freq PRN Reason Stop Dose Admin Hydrocodone Bitart/Acetaminophen 1 tab 05/19/24 14:44 05/20/24 04:27 Hydrocodone/Apap 5/325 Tablet PO 05/24/24 14:43 1 tab Q4HR PRN Administration PAIN SCALE 1-3 (mild Albuterol/Ipratropium 3 ml 05/20/24 09:23 Albuterol/Ipratropium (Duoneb) Rt Jimena 3 Ml Nebu INH 06/19/24 12:59 Q6HRRT PRN SOB or Wheeze Amiodarone HCl 200 mg 05/16/24 12:00 05/19/24 20:44 Amiodarone Hcl 200 Mg Tablet PO 06/15/24 11:59 200 mg BID ANGELICA Administration Heparin Sodium (Porcine) 5,000 unit 05/16/24 14:00 05/20/24 06:17 Heparin Sod Inj 5000 Unit/Ml Vial SC 05/30/24 13:59 5,000 unit Q8HR ANGELICA Administration Heparin Sodium (Porcine) 2,500 unit 05/17/24 15:52 05/19/24 11:16 Heparin Sod Inj 1000 Unit/Ml Vial 10 Ml INDWELLCAT 05/31/24 15:51 2,500 unit PRN PRN Administration DIALYSIS Hydromorphone HCl 0.25 mg 05/19/24 14:38 05/19/24 22:11 Hydromorphone Inj 2 Mg/Ml Vial IVP 05/24/24 14:37 0.25 mg Q4HR PRN Administration PAIN SCALE 4-6 (Moderate Hydromorphone HCl 0.5 mg 05/19/24 14:38 05/20/24 02:03 Hydromorphone Inj 2 Mg/Ml Vial IVP 05/24/24 14:37 0.5 mg Q6H PRN Administration PAIN SCALE 7-10 (Severe Azithromycin 500 mg/ Sodium 250 mls @ 250 mls/hr 05/14/24 09:00 05/20/24 10:03 Chloride IV 05/21/24 08:59 Infused QDAY ANGELICA Infusion Protocol Albumin Human 25 gm in 100 mls @ 100 mls/min 05/17/24 15:52 05/20/24 08:50 Albuminar-25 Ivpb IV 05/20/24 15:51 Infused PRN PRN Infusion DIALYSIS Amiodarone HCl/Dextrose 360 mg in 200 mls @ 33.333 mls/hr 05/20/24 06:00 05/20/24 05:50 Nexterone Ivpb IV 05/20/24 11:59 33.333 mls/hr .Q6H ONE Administration Amiodarone HCl/Dextrose 360 mg in 200 mls @ 16.667 mls/hr 05/20/24 12:00 Nexterone Ivpb IV 05/21/24 11:59 .Q12H ANGELICA Norepinephrine/Dextrose 8 mg in 250 mls @ 7.35 mls/hr 05/20/24 06:56 05/20/24 10:00 Levophed In D5w 8mg/250ml IV 06/19/24 06:55 0.05 mcg/kg/min .Q24H PRN 7.35 mls/hr PER PROTOCOL Titration Protocol 0.05 MCG/KG/MIN Piperacillin/Tazobactam/Dextrose 50 mls @ 12.5 mls/hr 05/20/24 14:00 Zosyn IV 05/27/24 13:59 Q8HR ANGELICA Ondansetron HCl 4 mg 12/14/24 11:58 05/14/24 12:31 Ondansetron Inj 2 Mg/Ml Inj 2 Ml IV 06/12/24 11:57 4 mg Q6H PRN Administration NAUSEA OR VOMITING Protocol Pantoprazole Sodium 40 mg 05/15/24 21:00 05/20/24 08:20 Pantoprazole Inj 40 Mg Vial IVP 06/14/24 20:59 40 mg BID ANGELICA Administration Pharmacy Consult 1 each 05/16/24 10:27 Pharmacy Renal Dose Adjustment 1 Ea XX 06/15/24 10:26 PRN PRN CONSULT Plan 69 y/o female with PMH of essential hypertension, gastric ulcers, hyperlipidemia, and DM2 was admitted to the hospital on 05/13/2024 due to acute encephalopathy likely secondary to sepsis secondary to CAP. 1. NSTEMI Type II 2. A-Fib with RVR, New onset -Patient has had elevated troponins from previous admissions with most recent on 11/17/2023 of 0.097 and prior to this on 12/28/2021 was 0.065 -On this admission intial troponins 0.09, uptrended to 0.239 and downtrended. -NSTEMI type II most likley in the setting of sepsis as patient has no chest pain. -EKG on this admission showed LVH with strain pattern and sinus tachycardia which is similiar to prior EKG on 11/22/2023 -CLARY ACS score of 115 points, 7% probability of -Patient in this afternoon developed A-Fib with RVR with ST depressions in anterolateral leads which are mostly rate related ST depressions -Echo on 05/16/2024 showed the following findings: Normal LV size and function with an estimated EF of 55 to 60%. Mild LVH. Stage I diastolic dysfunction. RV not visualized appears to have normal size and function. 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 Mild AV Sclerosis without stenosis. Plan: -No heparin drip at this time given the severe anemia and perforated gastric ulcer -Recommend to continue Amio 200mg P.O. BID. -No anticoagulation given perforated ulcer -Recommend to place patient on high intensity statin and aspirin if GI and general surgery are okay with starting aspirin and there are no other contraindications -Recommend no further troponins as elevated troponins most likely secondary to sepsis from type II NSTEMI. -Patient will need further ischemic evaluation which can be done when she is more stable and can be pursued as outpatient 3. Acute decompensated heart failure (EF 55-60%) 4.Essential Hypertension -Patient has some SOB, trace edema and initial BNP was 309 -CXR did show some vascular congestion -Echo from 04/26/2024 had the following findings: Normal LV size and function. Mild LVH. Estimated EF 60-65% Normal RV size and function. Mild to moderate mitral valve stenosis, mean gradient 8mmHg. Moderate MAC. Mild AI, MR, TR. Mild AV sclerosis without stenosis -Echo on 05/16/2024 showed the following findings: Normal LV size and function with an estimated EF of 55 to 60%. Mild LVH. Stage I diastolic dysfunction. RV not visualized appears to have normal size and function. 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 Mild AV Sclerosis without stenosis. Plan: -Hold diuresis in the setting of sepsis and soft BP, but if BP stabilizes will need diuresis -Strict CACHORRO's -Fluid restrictions -Low sodium diet -Daily weights -Recommend to potassium and magnessium above 4 and 2 respectively to avoid any arrhythmias. 5. Sepsis 2/2 perforated gastric ulcer 6. Community acquired pneumonia 7.Acute Encephalopathy 8. perforated gastric ulcer 9. Acute blood loss anemia 10. GI bleed -Continue current management as per primary care team 11.DM2 12. Hyperlipidemia -Continue current management as per primary care team Continue rest of management as per primary team. We are grateful to be able to participate in Mrs. Castellanos's care. Thank you for the consult Plan of care discussed with attending Biology Intern, Dr. Susan Spears MD PGY-1 Attending Provider Attestation/Addendum I have personally seen and examined the patient separately on the above date of service and discussed the plan of care with the resident. I reviewed the resident Dr. Merino consultation progress note and agree with the resident findings and plan in the note above and have also edited the documentation to reflect my findings and plan. Jalen Davis M.D. Interventional Cardiology
[2024-05-20] MEDS: AMIODARONE 360 MG IVPB 360 MG/200 ML BAG 16.667 MG IV (12:02)
[2024-05-20 12:38] LABS: Troponin I 0.172 ng/mL (0.0-0.045)
--- NOTE | 2024-05-20 12:45 | ESPR_ITS ---
Documentation for date of: 05/20/24 Subjective Subjective Interval history: Patient evaluated Slight drop in hemoglobin hematocrit to 10.1 and 30.7 because of the improving renal function which is BUN at the moment 41 and creatinine 3.6 No signs of any active bleeding Exam Vital Signs Temp Pulse Resp BP Pulse Ox O2 Del Method O2 Flow Rate 97.7 F 84 13 112/55 L 97 Nasal Cannula 3 05/20/24 12:00 05/20/24 12:30 05/20/24 12:30 05/20/24 12:30 05/20/24 12:30 05/20/24 12:00 05/20/24 12:00 FiO2 35 05/19/24 11:30 Objective Labs 05/20/24 04:34 05/20/24 04:34 Labs: Laboratory Results - last 24 hr 05/20/24 05/20/24 05/20/24 04:34 06:05 06:25 WBC 20.0 H RBC 3.59 L Hgb 10.1 L D Hct 30.7 L MCV 86 MCH 28.1 MCHC 32.9 RDW Std Deviation 50.6 H Plt Count 270 D Neut % (Auto) 90 H Lymph % (Auto) 5 L [place] % (Auto) 4 Eos % (Auto) 1 Baso % (Auto) 0 Neut # (Auto) 17.9 H Lymph # (Auto) 1.0 [place] # (Auto) 0.7 Eos # (Auto) 0.1 Baso # (Auto) 0.0 Immature Gran # (Auto) 0.24 H Absolute Nucleated RBC 0.41 H Immature Gran % 1 H Nucleated RBC % 2 H Puncture Site Right Radial ABG pH 7.30 L D ABG pCO2 49 H D ABG pO2 63 L ABG HCO3 24 ABG O2 Saturation 91 ABG Base Excess -3 Oxygen Liter Flow 3 FiO2 21 Sodium 142 Potassium 4.1 D Chloride 104 Carbon Dioxide 25.4 Anion Gap 13 BUN 41 H Creatinine 3.6 H Estim Creat Clear Calc 39.6 L eGFR 13 L* BUN/Creatinine Ratio 11 L Glucose 110 H D Calculated Osmolality 294 Lactic Acid 1.3 Calcium 9.2 Corrected Calcium 9.5 Phosphorus 4.9 Magnesium 2.4 Total Bilirubin 1.5 H AST 47 H ALT 81 H Alkaline Phosphatase 80 D Troponin I 0.192 H* Total Protein 6.0 Albumin 3.6 D Globulin 2.4 Albumin/Globulin Ratio 1.5 05/20/24 05/20/24 09:05 12:05 WBC RBC Hgb Hct MCV MCH MCHC RDW Std Deviation Plt Count Neut % (Auto) Lymph % (Auto) [place] % (Auto) Eos % (Auto) Baso % (Auto) Neut # (Auto) Lymph # (Auto) [place] # (Auto) Eos # (Auto) Baso # (Auto) Immature Gran # (Auto) Absolute Nucleated RBC Immature Gran % Nucleated RBC % Puncture Site ABG pH ABG pCO2 ABG pO2 ABG HCO3 ABG O2 Saturation ABG Base Excess Oxygen Liter Flow FiO2 Sodium Potassium Chloride Carbon Dioxide Anion Gap BUN Creatinine Estim Creat Clear Calc eGFR BUN/Creatinine Ratio Glucose Calculated Osmolality Lactic Acid Calcium Corrected Calcium Phosphorus Magnesium Total Bilirubin AST ALT Alkaline Phosphatase Troponin I 0.172 H* 0.172 H* Total Protein Albumin Globulin Albumin/Globulin Ratio Impressions Impression: # Perforated gastric ulcer status post exploratory laparotomy omental patch and suturing of the ulcer Continue to monitor CBC ABG Interpretation ABG results: 05/13/24 05/15/24 05/15/24 08:29 15:28 16:03 ABG pH 7.39 7.05 L* D 7.17 L* D ABG pCO2 31 L 63 H D 45 D ABG pO2 78 L 38 L* D 84 D ABG HCO3 19 L 18 L 16 L ABG O2 Saturation 96 59 L 96 ABG Base Excess -5 L -12 L -11 L VBG pH VBG pCO2 VBG pO2 VBG Base Excess 05/16/24 05/17/24 05/18/24 04:38 04:03 04:20 ABG pH 7.28 L D 7.38 D 7.49 H D ABG pCO2 34 D 28 L 30 L ABG pO2 96 85 66 L ABG HCO3 16 L 17 L 23 ABG O2 Saturation 98 97 94 ABG Base Excess -10 L -8 L 0 VBG pH VBG pCO2 VBG pO2 VBG Base Excess 05/19/24 05/20/24 09:05 06:05 ABG pH 7.30 L D ABG pCO2 49 H D ABG pO2 63 L ABG HCO3 24 ABG O2 Saturation 91 ABG Base Excess -3 VBG pH 7.31 L VBG pCO2 50 VBG pO2 39 VBG Base Excess -2 Assessment & Plan A&P Narrative 69 y/o female with PMH of essential hypertension, gastric ulcers, hyperlipidemia, and DM2 was admitted to the hospital on 05/13/2024 due to acute encephalopathy likely secondary to sepsis secondary to CAP. 1. NSTEMI Type II 2. A-Fib with RVR, New onset -Patient has had elevated troponins from previous admissions with most recent on 11/17/2023 of 0.097 and prior to this on 12/28/2021 was 0.065 -On this admission intial troponins 0.09, uptrended to 0.239 and downtrended. -NSTEMI type II most likley in the setting of sepsis as patient has no chest pain. -EKG on this admission showed LVH with strain pattern and sinus tachycardia which is similiar to prior EKG on 11/22/2023 -CLARY ACS score of 115 points, 7% probability of -Patient in this afternoon developed A-Fib with RVR with ST depressions in anterolateral leads which are mostly rate related ST depressions -Echo ordered to rule out post operative NC and to evaluate for any new regional wall motion abnormalities and to reevaluate bradycardia contraction Plan: -No heparin drip at this time given the severe anemia and perforated gastric ulcer -Recommend to start Amio drip and Amio 200mg P.O. BID. -No anticoagulation given perforated ulcer -Recommend to place patient on high intensity statin and aspirin if GI and general surgery are okay with starting aspirin and there are no other contraindications -Recommend no further troponins as elevated troponins most likely secondary to sepsis from type II NSTEMI. -Patient will need further ischemic evaluation which can be done when she is more stable and can be pursued as outpatient 05/18/2024: Patient continues to be mechanically ventilated and sedated Patient continues to be on pressor support Patient was in atrial fibrillation on 1217 noted on WANG [address] depressions in anterolateral leads which are mostly rate related ST depressions. Echo ordered to rule out postoperative NC and showed no regional wall motion abnormalities and EF is 55 to 60% again and see detailed echo report below. Patient now converted to normal sinus rhythm after the amiodarone drip and patient is already started on amiodarone 200 mg p.o. twice daily. Recommend to check EKG to document the normal sinus rhythm and also to check the QTc as the patient is on amiodarone. No heparin drip as patient has perforated ulcer. Discussed with GI and surgery went to start anticoagulation with heparin drip initially and then later on Eliquis 5 mg twice daily No further troponins recommended. Mild troponin elevation is mostly secondary to NSTEMI type II in the setting of supply/demand mismatch. Patient will need further ischemic evaluation but can be done as outpatient when she improves from the present medical conditions recommend to replete potassium and magnesium to keep above 4 and 2 respectively to avoid any further arrhythmias. Normal LV size and function with an estimated EF of 55 to 60%. Mild LVH. Stage I diastolic dysfunction. RV not visualized appears to have normal size and function. 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 Mild AV Sclerosis without stenosis. 3. Acute decompensated heart failure (EF 60-65%) 4.Essential Hypertension -Patient has some SOB, trace edema and initial BNP was 309 -CXR did show some vascular congestion -Echo from 04/26/2024 had the following findings: Normal LV size and function. Mild LVH. Estimated EF 60-65% Normal RV size and function. Mild to moderate mitral valve stenosis, mean gradient 8mmHg. Moderate MAC. Mild AI, MR, TR. Mild AV sclerosis without stenosis Plan: -Hold diuresis in the setting of sepsis and soft BP, but if BP stabilizes will need diuresis -Strict CACHORRO's -Fluid restrictions -Low sodium diet -Daily weights -Recommend to potassium and magnessium above 4 and 2 respectively to avoid any arrhythmias. 5. Sepsis 2/2 perforated gastric ulcer 6. Community acquired pneumonia 7.Acute Encephalopathy 8. perforated gastric ulcer 9. Acute blood loss anemia 10. GI bleed -Continue current management as per primary care team 11.DM2 12. Hyperlipidemia -Continue current management as per primary care team Management of rest of the medical conditions as per primary team and other consultants. Thank you for the consult and allowing me to participate in the care of the patient. Cardiology will continue to follow. Jalen Davis M.D. Interventional Cardiology Time Spent With Patient Time: Total time spent is greater than 50% in coordination of care (as documented) at patient's floor/unit and/or counseling patient:
--- NOTE | 2024-05-20 12:46 | PCS.ST ---
Family at bedside. SAFETY RISK LEAD attempted swallow eval; however, pt not following commands. SAFETY RISK LEAD will return tomorrow to re-eval pt.
--- NOTE | 2024-05-20 13:00 | PC.NURSE ---
NOTIFIED DR BIGGS PATIENTS BALAJI DRAIN NOTED TO HAVE PURULENT FLUID, WHEN DRAINED FLUID SMELT LIKE TUBE FEEDINGS, PER DR BIGGS HOLD TUBE FEEDINGS AND STAT CT SCAN WILL BE ORDERED.
--- NOTE | 2024-05-20 14:18 | XR_ITS ---
Examination: CT abdomen and pelvis without contrast. Coronal 3-D reconstructions. Sagittal 2-D reconstructions. Date and time of exam:May 20, 2024 1437 hrs. Indications: Sepsis today Comparison: May 13, 2024 CTDI: vol (mGy): 25.6 DLP: (mGycm): 1244 Technique: Axial images of the abdomen have been obtained, 3 mm slice thickness Intravenous contrast material has not been administered. Low dose protocols were performed. One or more of the following dose reduction techniques were used; automated exposure control, adjustment of the mA and/or KV according to patient size, use of iterative reconstruction technique. Findings: Mild to moderate enlargement cardiac contour Significant bibasilar pneumonia Small bilateral pleural effusions Pneumoperitoneum Liver is irregular in contour Hyperdense gallbladder Orogastric tube projects in the stomach Ventricular peritoneal shunt tube There is mild free fluid adjacent to the stomach and anterior to the pancreas in 78 Orogastric tube in the duodenum No hydronephrosis 5 cm left renal cyst Mild free fluid in the abdomen Bowel obstruction Mild free fluid in the pelvis Contracted urinary bladder Impression: Significant bibasilar pneumonia Pneumoperitoneum,, noted on the May 15, 2024 exam, which may be arising from gastric perforation, clinical advised
--- NOTE | 2024-05-20 14:31 | PC.NURSE ---
PATIENT TAKEN TO CT AT THIS TIME.
[2024-05-20] MEDS: PIPER/TAZO 3.375 GM 50 ML IV ×2 (14:55→21:04)
--- NOTE | 2024-05-20 15:04 | PC.NURSE ---
PATIENT BACK FROM CT
[2024-05-20] MEDS: FLUCONAZOLE/NS 400 MG IVPB 400 MG/200 ML BAG 100 MG IV (16:07)
[2024-05-20 16:50] LABS: Troponin I 0.162 ng/mL (0.0-0.045)
--- NOTE | 2024-05-20 17:47 | PD.RESPRO ---
Documentation for date of: 05/20/24 Subjective Subjective Interval history: 05/17: No acute overnight events. Patient had no urinary output through the night and decreased urine output during the day. Patient continues to be on vasopressin and Levophed to maintain MAP above 65. She is currently sedated on fentanyl and propofol. Today patient got a catheter for hemodialysis as patient requires a session today with creatinine of 3.4 and GFR 14. Patient's kidney function continues to decline. Patient also failed spontaneous breathing trial so we will continue intubation today and will retry tomorrow. Echo findings are consistent with ejection fraction of 55 to 60% . Patient is transition from amiodarone drip to p.o. amiodarone. 05/18: Overnight patient hemoglobin dropped below 7 and received 2 units of PRBC. Patient is seen and examined at bedside patient continues to have 0 to 10 mL/h urinary output. Patient also had a black tarry bowel movement. Patient underwent HD fluid removal only and removed 2.1 L. Patient is also extubated today. She is doing better, breathing comfortably but complains of abdominal pain which is expected as she is status post abdominal surgery. ABGs are stable. 05/18: no acute overnight events. Pt continues to complain of abdominal pain and minimal urinary output pt. has another episode of black smeared bowel movement but Hgb is stable therefore will continue to monitor daily CBC. Pt is very sensitive to Dilaudid and morphine and causes her to have a decreased respiratory drive with respirations around 9 and 10. Will have to resort to another type of pain management possibly either [place] or IV Tylenol. Will try 0.25 Dilaudid. Patient underwent HD fluid removal and was able to tolerate removing only 1.5 L and patient became hypotensive and Levophed drip was started for a few hours and DC'd the Levophed at 2 PM. 05/20/2024: The patient was examined at the bedside this morning. She was awake, occasionally moaning in pain. Overnight, the patient was upgraded back to ICU as her MAP dropped less than 65 and was in A-fib with RVR. The patient was started on amiodarone drip, and sepsis workup was done. The patient continues to saturate 96 to 97% on 3 L NC with FiO2 35%. White count trended up to 20.0, hemoglobin 10.1. Physical exam was significant for severe abdominal tenderness, and firm to hard on palpation, and CT abdomen/pelvis was ordered that revealed Pneumoperitoneum, orogastric tube in the stomach, mild free fluid adjacent to the stomach and anterior to the pancreas. GI surgeon Dr. Hernandez was made aware of the situation, and she recommended stopping tube feed and starting slow intermittent suctioning via NG tube. She was also started on Diflucan 400 Mg IV daily for GI perforation prophylaxis. CT head done this morning was significant for family members were updated regarding her recent condition. 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 The patient will be started on aspirin and atorvastatin once he is able to tolerate p.o. diet. The family members were made aware of her situation. Exam Vital Signs Temp Pulse Resp BP Pulse Ox O2 Del Method O2 Flow Rate 97.8 F 80 20 141/65 H 97 Nasal Cannula 3 05/20/24 16:00 05/20/24 17:45 05/20/24 17:45 05/20/24 17:45 05/20/24 17:45 05/20/24 17:00 05/20/24 17:00 FiO2 35 05/19/24 11:30 Narrative Exam GENERAL: awake, occasionally moaning in pain NEURO: unable to obtain due to patient severe weakness HEENT: Atraumatic, Normocephalic. mucous membranes moist, left IJ HEART: Normal Heart Sounds LUNGS: Clear to auscultation with no wheezing or crackles. ABDOMEN: surgical scar is clean with BALAJI drain in place with minimal output and possible abdominal content, Firm to hard on palpation SKIN: No Rash or ecchymoses EXTREMITIES: non pitting edema in upper and lower extremities, pedal pulses palpated Objective Labs 05/29/24 05:45 05/29/24 05:45 Labs: Laboratory Results - last 24 hr 05/20/24 05/20/24 05/20/24 04:34 06:05 06:25 WBC 20.0 H RBC 3.59 L Hgb 10.1 L D Hct 30.7 L MCV 86 MCH 28.1 MCHC 32.9 RDW Std Deviation 50.6 H Plt Count 270 D Neut % (Auto) 90 H Lymph % (Auto) 5 L [place] % (Auto) 4 Eos % (Auto) 1 Baso % (Auto) 0 Neut # (Auto) 17.9 H Lymph # (Auto) 1.0 [place] # (Auto) 0.7 Eos # (Auto) 0.1 Baso # (Auto) 0.0 Immature Gran # (Auto) 0.24 H Absolute Nucleated RBC 0.41 H Immature Gran % 1 H Nucleated RBC % 2 H Puncture Site Right Radial ABG pH 7.30 L D ABG pCO2 49 H D ABG pO2 63 L ABG HCO3 24 ABG O2 Saturation 91 ABG Base Excess -3 Oxygen Liter Flow 3 FiO2 21 Sodium 142 Potassium 4.1 D Chloride 104 Carbon Dioxide 25.4 Anion Gap 13 BUN 41 H Creatinine 3.6 H Estim Creat Clear Calc 39.6 L eGFR 13 L* BUN/Creatinine Ratio 11 L Glucose 110 H D Calculated Osmolality 294 Lactic Acid 1.3 Calcium 9.2 Corrected Calcium 9.5 Phosphorus 4.9 Magnesium 2.4 Total Bilirubin 1.5 H AST 47 H ALT 81 H Alkaline Phosphatase 80 D Troponin I 0.192 H* Total Protein 6.0 Albumin 3.6 D Globulin 2.4 Albumin/Globulin Ratio 1.5 05/20/24 05/20/24 05/20/24 09:05 12:05 16:02 WBC RBC Hgb Hct MCV MCH MCHC RDW Std Deviation Plt Count Neut % (Auto) Lymph % (Auto) [place] % (Auto) Eos % (Auto) Baso % (Auto) Neut # (Auto) Lymph # (Auto) [place] # (Auto) Eos # (Auto) Baso # (Auto) Immature Gran # (Auto) Absolute Nucleated RBC Immature Gran % Nucleated RBC % Puncture Site ABG pH ABG pCO2 ABG pO2 ABG HCO3 ABG O2 Saturation ABG Base Excess Oxygen Liter Flow FiO2 Sodium Potassium Chloride Carbon Dioxide Anion Gap BUN Creatinine Estim Creat Clear Calc eGFR BUN/Creatinine Ratio Glucose Calculated Osmolality Lactic Acid Calcium Corrected Calcium Phosphorus Magnesium Total Bilirubin AST ALT Alkaline Phosphatase Troponin I 0.172 H* 0.172 H* 0.162 H* Total Protein Albumin Globulin Albumin/Globulin Ratio ABG Interpretation ABG results: 05/13/24 05/15/24 05/15/24 08:29 15:28 16:03 ABG pH 7.39 7.05 L* D 7.17 L* D ABG pCO2 31 L 63 H D 45 D ABG pO2 78 L 38 L* D 84 D ABG HCO3 19 L 18 L 16 L ABG O2 Saturation 96 59 L 96 ABG Base Excess -5 L -12 L -11 L VBG pH VBG pCO2 VBG pO2 VBG Base Excess 05/16/24 05/17/24 05/18/24 04:38 04:03 04:20 ABG pH 7.28 L D 7.38 D 7.49 H D ABG pCO2 34 D 28 L 30 L ABG pO2 96 85 66 L ABG HCO3 16 L 17 L 23 ABG O2 Saturation 98 97 94 ABG Base Excess -10 L -8 L 0 VBG pH VBG pCO2 VBG pO2 VBG Base Excess 05/19/24 05/20/24 09:05 06:05 ABG pH 7.30 L D ABG pCO2 49 H D ABG pO2 63 L ABG HCO3 24 ABG O2 Saturation 91 ABG Base Excess -3 VBG pH 7.31 L VBG pCO2 50 VBG pO2 39 VBG Base Excess -2 Quality Measures Quality Measures VTE prophylaxis Advance care planning discussed with:: child Assessment & Plan Assessment Current Active Medications: Generic Name Dose Route Start Last Admin Trade Name Freq PRN Reason Stop Dose Admin Albuterol/Ipratropium 3 ml 05/20/24 09:23 Albuterol/Ipratropium (Duoneb) Rt Jimena 3 Ml Nebu INH 06/19/24 12:59 Q6HRRT PRN SOB or Wheeze Amiodarone HCl 200 mg 05/16/24 12:00 05/19/24 20:44 Amiodarone Hcl 200 Mg Tablet PO 06/15/24 11:59 200 mg BID ANGELICA Administration Heparin Sodium (Porcine) 5,000 unit 05/16/24 14:00 05/20/24 14:55 Heparin Sod Inj 5000 Unit/Ml Vial SC 05/30/24 13:59 5,000 unit Q8HR ANGELICA Administration Heparin Sodium (Porcine) 2,500 unit 05/17/24 15:52 05/19/24 11:16 Heparin Sod Inj 1000 Unit/Ml Vial 10 Ml INDWELLCAT 05/31/24 15:51 2,500 unit PRN PRN Administration DIALYSIS Hydromorphone HCl 0.25 mg 05/19/24 14:38 05/19/24 22:11 Hydromorphone Inj 2 Mg/Ml Vial IVP 05/24/24 14:37 0.25 mg Q4HR PRN Administration PAIN SCALE 4-6 (Moderate Hydromorphone HCl 0.5 mg 05/19/24 14:38 05/20/24 02:03 Hydromorphone Inj 2 Mg/Ml Vial IVP 05/24/24 14:37 0.5 mg Q6H PRN Administration PAIN SCALE 7-10 (Severe Azithromycin 500 mg/ Sodium 250 mls @ 250 mls/hr 05/14/24 09:00 05/20/24 10:03 Chloride IV 05/21/24 08:59 Infused QDAY ANGELICA Infusion Protocol Amiodarone HCl/Dextrose 360 mg in 200 mls @ 16.667 mls/hr 05/20/24 12:00 05/20/24 12:02 Nexterone Ivpb IV 05/21/24 11:59 16.667 mls/hr .Q12H ANGELICA Administration Piperacillin/Tazobactam/Dextrose 50 mls @ 12.5 mls/hr 05/20/24 14:00 05/20/24 14:55 Zosyn IV 05/27/24 13:59 12.5 mls/hr Q8HR ANGELICA Administration Fluconazole 100 mls @ 100 mls/hr 05/21/24 14:00 Diflucan/Ns Ivpb IV 05/28/24 13:59 QDAY@1400 ANGELICA Norepinephrine/Dextrose 8 mg in 250 mls @ 7.35 mls/hr 05/20/24 15:40 Levophed In D5w 8mg/250ml IV 06/19/24 06:55 .Q24H PRN PER PROTOCOL Protocol 0.05 MCG/KG/MIN Ondansetron HCl 4 mg 05/13/24 11:58 05/14/24 12:31 Ondansetron Inj 2 Mg/Ml Inj 2 Ml IV 06/12/24 11:57 4 mg Q6H PRN Administration NAUSEA OR VOMITING Protocol Pantoprazole Sodium 40 mg 05/15/24 21:00 05/20/24 08:20 Pantoprazole Inj 40 Mg Vial IVP 06/14/24 20:59 40 mg BID ANGELICA Administration Pharmacy Consult 1 each 05/16/24 10:27 Pharmacy Renal Dose Adjustment 1 Ea XX 06/15/24 10:26 PRN PRN CONSULT Plan Ms. Castellanos is a 69-year-old female with past medical history significant for hypertension, diabetes, CKD stage III, and history of gastric ulcers who presented to the ED on 05/13/2024 after she was found unconscious on the floor. Per chart reviewing prior to this unconsciousness patient was having abdominal pain and generalized weakness with diarrhea and shortness of breath for 2 days. Patient was admitted to the hospital for treatment and management of sepsis secondary to pneumonia. Patient was given 1 L normal saline and started on ceftriaxone and azithromycin. patient underwent ex lap surgery for perforated gastric ulcer. Patient remained intubated postop and is upgraded to the ICU. 05/20/2024: The patient was examined at the bedside this morning. She was awake, occasionally moaning in pain. Overnight, the patient was upgraded back to ICU as her MAP dropped less than 65 and was in A-fib with RVR. The patient was started on amiodarone drip, and sepsis workup was done. The patient continues to saturate 96 to 97% on 3 L NC with FiO2 35%. White count trended up to 20.0, hemoglobin 10.1. Physical exam was significant for severe abdominal tenderness, and firm to hard on palpation, and CT abdomen/pelvis was ordered that revealed Pneumoperitoneum, orogastric tube in the stomach, mild free fluid adjacent to the stomach and anterior to the pancreas. GI surgeon Dr. Hernandez was made aware of the situation, and she recommended stopping tube feed and starting slow intermittent suctioning via NG tube. She was also started on Diflucan 400 Mg IV daily for GI perforation prophylaxis. CT head done this morning was significant for family members were updated regarding her recent condition. 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 The patient will be started on aspirin and atorvastatin once he is able to tolerate p.o. diet. The family members were made aware of her situation. Neuro: # Acute encephalopath-improving -Likely multifactorial secondary to sepsis versus metabolic versus neurologic versus medication -This morning patient was not looking at the examiner patient recently has recovered from septic shock and high BUN, patient received Dilaudid overnight which decreased her respiratory drive and less responsive. -Patient is responsive and is able to follow commands however she is moaning in pain. Cardiovasc: #shock DDx: more likely cardiogenic 2/2 afib with RVR, complicated by s/p laparotomy state -S/P aggressive fluid resuscitation, continue to monitor and will give additional fluids as needed -On levophed and vasopression to maintain MAP >65, wean as tolerated. -Status post 1 unit PRBC given 05/15/2024 for hemoglobin below 7 -Continue iv antibiotics and additional fluids as needed and treat underlying cause -Treat underlying cause # New onset A-fib -Likely secondary to shock in the setting of abdominal surgery -EKG findings consistent with A-fib -Was on Amiodarone 200 twice daily for new onset Afib, but as she was in AFib with RVR, started on amio drip -Cardiology consulted #Acute exacerbation of HFpEF #Hx. of CHF -echo 05/16 -estimated EF of 55 to 60%, stage I diastolic dysfunction noted, Moderate to severe posterior MAC -Pt presented with SOB and 2+ edema in LE -elevated BNP from 304 --> 1110 -HD in the setting of anuria -holding guideline directed medical therapy due to shock, will resume when able #Hyperlipidemia -Plan: Hold home atorvastatin as patient is npo. Will reinstate as tolerated #Primary Hypertension -Plan: Hold home amlodipine in setting of shock Pulm: #Acute Hypoxic Respiratory failure -2/2 to pulmonary edema in the setting of volume overload 2/2 ATN due to shock leading to oligoanuria -Further complicated by bilateral lung atelectasis in the setting of recent abdominal surgery and sedatives use -Patient was intubated and on mechanical ventilation (05/15) and extubated 05/18/2024, currently saturating 95-97 % on 2-3 L NC GI: #Pneumoperitoneum #Peritonitis secondary to perforated gastric ulcer Patient found to have tender abdomen, rigidity in the epigastrium, chest x-ray showed elevation of hemidiaphragm, CT abdomen showed pneumoperitoneum, concern for perforated viscus, general surgeon Dr. Santana was consulted for emergency laparotomy and possible repair of perforated gastric ulcer. Repeat CT abd/pel on 05/20 revealed Pneumoperitoneum, orogastric tube in the stomach, mild free fluid adjacent to the stomach and anterior to the pancreas. ?Patient was given IV fluid boluses, IV albumin 1 PRBC was ordered ?Antibiotic coverage was broadened to Zosyn to cover for anaerobic and enteric pathogens. - Plan: s/p Exploratory laparotomy & repair of perforated gastric ulcer - 05/15. -Surgery following and on pain management with Dilaudid (hold if RR <15) -GI surgeon Dr. Hernandez was made aware of the situation, and she recommended stopping tube feed and starting slow intermittent suctioning via NG tube. -She was also started on Diflucan 400 Mg IV daily for GI perforation prophylaxis. #Acute Upper GI bleed - stable - most likely secondary to perforated gastric ulcer -Patient had a single episode of black tarry stool today-likely setting of recent abdominal surgery - Plan: Continue iv Protonix. -Hold chemical anticoagulation -Will monitor for alarm signs of active bleeding with melena or hematochezia #GI ppx - pantoprazole #Diet -trickle feeds through NG tube Renal: #Acute tubular necrosis - 2/2 septic shock - Baseline Cr appears to be 0.7 - Renally dose medications and avoid nephrotoxic agents - Plan: Patient underwent HD fluid removal and removed 2.1 L on 05/18 and 1.5 L on 05/19, We will call Dr. August and request for HD after giving albumin on 05/21 - Guajardo catheter in place and monitor urine output closely. -repeat labs in am -Nephrology following Endo: #hypoglycemia, resolved #Diabetes Mellitus type II - A1C 6.7 % - Hold home glipizide and januvia - Plan: Continue to monitor blood sugars -Blood glucose is above 180 we will start the patient on medium insulin sliding scale Heme/Onc: #Acute blood loss anemia 2/2 perforated ulcer- S/P surgical repair -Hb stable ?patient received 2 units of PRBC 05/18 due to acutely drop in Hgb below 7. No signs of active bleeding. Pt. had 2 episodes of black stool, due to recent abdominal surgery this maybe normal finding. Will continue to monitor for continous episodes and acutely drop in Hgb. -Plan: Continue to monitor H & H. transfuse for hemoglobin less than 7. #Leucocytosis: Likely 2/2 bacterial peritonitis -On IV zosyn -On IV Diflucan 400mg IV daily for fungal GI prophylaxis ID -On zosyn for bacterial peritonitis (Skin:) #Pressure Ulcer Prevention Disposition: ICU for AHRF & cardiogenic shock DVT Prophylaxis: Hold chemical anticoagulation in setting of possible GI bleed GI Prophylaxis: Pantoprozol-40 IV Diet: Trickle feeds through NG tube Lines: central line left IJ for dialysis Code status: Full The patient's management plan was discussed with my attending physician MD Sameer Moulton MD, PGY2 Attending Provider Attestation/Addendum Patient seen and examined with above resident, show she MD Nilo. Patient was transferred out of the ICU yesterday stable condition but returned with A-fib with RVR and associated hypotension. Suspected evolving sepsis likely in the setting of intra-abdominal process. Patient notably status post recent [place] patch for peptic ulcer disease with perforation. Drain remains in place. CT of the abdomen/pelvis was done which showed expected pneumoperitoneum and mild free fluid adjacent to stomach and pancreas. Visual inspection of output from BALAJI drain shows suggestion of leaking of tube feeding. This was promptly stopped after discussion with general surgery. Patient was also started on Diflucan along with adequate intraperitoneal coverage. Patient also underwent imaging with suggestion of left cerebellar infarct though this is likely not the etiology of her acute encephalopathy which remains most likely in the setting of both her renal failure as well as underlying severe sepsis. Patient remains on intermittent hemodialysis but will hold off at this time given her instability we will need to reconsider next 24 to 48 hours. Patient's family updated at bedside by myself and nursing staff. Dr. Santana did also update them from a surgical perspective. Total critical care time: I personally spent 40 minutes for review of physiologic parameters, directing plan of care throughout the day, coordination of care with other specialties, and counseling patient's family at bedside. This is exclusive of time spent teaching housestaff or performing any separate billable procedures. Patient continues to require critical care services for septic shock and atrial fibrillation with rapid ventricular response in the setting of perforation of gastric ulcer with intra-abdominal sepsis. Patient continues to be at high risk for increased morbidity and imminent mortality requiring ongoing aggressive care.
[2024-05-20 18:31] LABS: Troponin I 0.159 ng/mL (0.0-0.045)
[2024-05-20] MEDS: Norepinephrine/D5W 8mg/250ml 8 MG/250 ML BAG 7.35 MG IV (19:00)
[2024-05-20] MEDS: ALBUTEROL/IPRATROPIUM (Duoneb) RT SOL 3 ML NEBU INH (21:14)
--- NOTE | 2024-05-20 21:24 | PD.NEUROPROG ---
Documentation for date of: 05/20/24 Subjective Subjective Interval history: Patient was seen in ICU today with her family at the bedside. She was transferred from telemetry to ICU new onset atrial fibrillation with RVR and hypotension needing pressors Exam - Neurology Vital Signs Temp Pulse Resp BP Pulse Ox O2 Del Method O2 Flow Rate 96.8 F 81 21 H 130/64 96 Nasal Cannula 3 05/20/24 20:00 05/20/24 21:00 05/20/24 21:00 05/20/24 21:00 05/20/24 21:00 05/20/24 18:00 05/20/24 19:22 FiO2 35 05/19/24 11:30 Narrative Exam GENERAL APPEARANCE: Well-developed, obese built female in no acute distress. HEENT: Normocephalic, atraumatic, extraocular movements intact. Pupils: Equal reacting to light NECK: Supple, no JVD or bruits. CARDIOVASULAR: Heart: S1, S2 heard, regular without S3-S4 or murmur no rubs or gallops. LUNGS/CHEST: Clear to auscultation bilaterally. No rails, rhonchi, or wheezing. Normal inspection. ABDOMEN: Soft, nontender, with normal bowel sounds. No pulsatile masses. No rebound, rigidity, or guarding. Normal inspection and palpation. EXTREMITIES: Significant edema in both upper and lower extremities. SKIN: Warm and dry without rashes. Normal inspection. MUSCULOSKELETAL: No cervical, thoracic, lumbar or midline bony tenderness. Normal inspection. NEURO: Alert, awake, follows commands inconsistently. Brainstem function: Intact. no signs of meningeal irritation noted. PSYCHIATRIC: Limited Objective Labs 05/20/24 04:34 05/20/24 04:34 Labs: Laboratory Results - last 24 hr 05/20/24 05/20/24 05/20/24 04:34 06:05 06:25 WBC 20.0 H RBC 3.59 L Hgb 10.1 L D Hct 30.7 L MCV 86 MCH 28.1 MCHC 32.9 RDW Std Deviation 50.6 H Plt Count 270 D Neut % (Auto) 90 H Lymph % (Auto) 5 L [place] % (Auto) 4 Eos % (Auto) 1 Baso % (Auto) 0 Neut # (Auto) 17.9 H Lymph # (Auto) 1.0 [place] # (Auto) 0.7 Eos # (Auto) 0.1 Baso # (Auto) 0.0 Immature Gran # (Auto) 0.24 H Absolute Nucleated RBC 0.41 H Immature Gran % 1 H Nucleated RBC % 2 H Puncture Site Right Radial ABG pH 7.30 L D ABG pCO2 49 H D ABG pO2 63 L ABG HCO3 24 ABG O2 Saturation 91 ABG Base Excess -3 Oxygen Liter Flow 3 FiO2 21 Sodium 142 Potassium 4.1 D Chloride 104 Carbon Dioxide 25.4 Anion Gap 13 BUN 41 H Creatinine 3.6 H Estim Creat Clear Calc 39.6 L eGFR 13 L* BUN/Creatinine Ratio 11 L Glucose 110 H D Calculated Osmolality 294 Lactic Acid 1.3 Calcium 9.2 Corrected Calcium 9.5 Phosphorus 4.9 Magnesium 2.4 Total Bilirubin 1.5 H AST 47 H ALT 81 H Alkaline Phosphatase 80 D Troponin I 0.192 H* Total Protein 6.0 Albumin 3.6 D Globulin 2.4 Albumin/Globulin Ratio 1.5 05/20/24 05/20/24 05/20/24 09:05 12:05 16:02 WBC RBC Hgb Hct MCV MCH MCHC RDW Std Deviation Plt Count Neut % (Auto) Lymph % (Auto) [place] % (Auto) Eos % (Auto) Baso % (Auto) Neut # (Auto) Lymph # (Auto) [place] # (Auto) Eos # (Auto) Baso # (Auto) Immature Gran # (Auto) Absolute Nucleated RBC Immature Gran % Nucleated RBC % Puncture Site ABG pH ABG pCO2 ABG pO2 ABG HCO3 ABG O2 Saturation ABG Base Excess Oxygen Liter Flow FiO2 Sodium Potassium Chloride Carbon Dioxide Anion Gap BUN Creatinine Estim Creat Clear Calc eGFR BUN/Creatinine Ratio Glucose Calculated Osmolality Lactic Acid Calcium Corrected Calcium Phosphorus Magnesium Total Bilirubin AST ALT Alkaline Phosphatase Troponin I 0.172 H* 0.172 H* 0.162 H* Total Protein Albumin Globulin Albumin/Globulin Ratio 05/20/24 18:01 WBC RBC Hgb Hct MCV MCH MCHC RDW Std Deviation Plt Count Neut % (Auto) Lymph % (Auto) [place] % (Auto) Eos % (Auto) Baso % (Auto) Neut # (Auto) Lymph # (Auto) [place] # (Auto) Eos # (Auto) Baso # (Auto) Immature Gran # (Auto) Absolute Nucleated RBC Immature Gran % Nucleated RBC % Puncture Site ABG pH ABG pCO2 ABG pO2 ABG HCO3 ABG O2 Saturation ABG Base Excess Oxygen Liter Flow FiO2 Sodium Potassium Chloride Carbon Dioxide Anion Gap BUN Creatinine Estim Creat Clear Calc eGFR BUN/Creatinine Ratio Glucose Calculated Osmolality Lactic Acid Calcium Corrected Calcium Phosphorus Magnesium Total Bilirubin AST ALT Alkaline Phosphatase Troponin I 0.159 H* Total Protein Albumin Globulin Albumin/Globulin Ratio ABG Interpretation ABG results: 05/13/24 05/15/24 05/15/24 08:29 15:28 16:03 ABG pH 7.39 7.05 L* D 7.17 L* D ABG pCO2 31 L 63 H D 45 D ABG pO2 78 L 38 L* D 84 D ABG HCO3 19 L 18 L 16 L ABG O2 Saturation 96 59 L 96 ABG Base Excess -5 L -12 L -11 L VBG pH VBG pCO2 VBG pO2 VBG Base Excess 05/16/24 05/17/24 05/18/24 04:38 04:03 04:20 ABG pH 7.28 L D 7.38 D 7.49 H D ABG pCO2 34 D 28 L 30 L ABG pO2 96 85 66 L ABG HCO3 16 L 17 L 23 ABG O2 Saturation 98 97 94 ABG Base Excess -10 L -8 L 0 VBG pH VBG pCO2 VBG pO2 VBG Base Excess 05/19/24 05/20/24 09:05 06:05 ABG pH 7.30 L D ABG pCO2 49 H D ABG pO2 63 L ABG HCO3 24 ABG O2 Saturation 91 ABG Base Excess -3 VBG pH 7.31 L VBG pCO2 50 VBG pO2 39 VBG Base Excess -2 Assessment & Plan Additional Assessment & Plan Additional Plan: 69-year-old female with past medical history of CKD stage III, prediabetes, hypertension who was found unconscious in her room. As well as diarrhea and shortness of breath. Admitted for sepsis secondary to pneumonia and acute metabolic encephalopathy #Acute metabolic encephalopathy- currently in ICU being closely monitored. #Generalized weakness -Patient was found to be nonresponsive at home -Intitial Head CT was negative -Patient failed bedside swallow eval -Brain MRI with MRA shows significant stenoses in posterior cerebral artery, no acute infarction noted -Will continue with the current management as per primary team, will consider doing EEG if there is no improvement in mental status. Continue with the passive range of motion exercises prevent contracture.
[2024-05-20 21:34] LABS: Troponin I 0.155 ng/mL (0.0-0.045)
[2024-05-21] VITALS (75 sets, daily range): BP systolic 104–170; BP diastolic 52–95; PULSE 72–86; RESP 14–36; TEMP 35.8–36.8; O2SAT 86–99; BMI 34.2
[2024-05-21] MEDS: AMIODARONE 360 MG IVPB 360 MG/200 ML BAG 16.667 MG IV ×2 (00:09→16:30)
[2024-05-21] MEDS: PIPER/TAZO 3.375 GM 50 ML IV ×2 (05:00→20:48)
[2024-05-21] MEDS: HEPARIN SOD INJ 5000 UNIT/ML VIAL SC ×3 (05:00→21:31)
[2024-05-21 06:54] LABS: Alanine Aminotransferase 51 U/L (10-49); Albumin, Serum 3.1 gm/dL (3.4-4.8); Albumin/Globulin Ratio 1.2 (1.2-2.2); Alkaline Phosphatase 92 U/L (46-116); Anion Gap 13 (7-16); Aspartate Amino Transferase 26 U/L (0-34); BUN/Creatinine Ratio 11 Ratio (12-20); Bilirubin,Total 0.9 mg/dL (0.3-1.2); Blood Urea Nitrogen 49 mg/dL (9-23); Calcium 8.8 mg/dL (8.3-10.6); Calcium (Corrected) 9.5 mg/dL (8.5-10.1); Carbon Dioxide 22.9 mMol/L (20.0-31.0); Chloride 106 mMol/L (98-107); Cholesterol 80 mg/dL (132-200); Creatinine (Component) 4.6 mg/dL (0.6-1.3); Globulin 2.5 gm/dL (2.3-3.5); Glucose 78 mg/dL (74-106); HDL Cholesterol < 10 mg/dL (40-60); LDL Cholesterol,Calculated 26 mg/dL (0-130); Magnesium 2.5 mg/dL (1.6-2.6); Osmolality,Calculated 295 (275-295); Phosphorous 5.6 mg/dL (2.4-5.1); Potassium 4.3 mMol/L (3.4-5.1); Sodium 142 mMol/L (136-145); Thyroid Stimulating Hormone 2.09 uIU/mL (0.55-4.78); Total Protein 5.6 gm/dL (5.7-8.2); Triglycerides 218 mg/dL (30-150); eGFR 10 See Note
[2024-05-21 07:02] LABS: Basophils # (Auto) 0.1 Thou/mm3 (0.0-0.2); Basophils % (Auto) 1 % (0-2.5); Eosinophils # (Auto) 0.2 Thou/mm3 (0.0-0.5); Eosinophils % (Auto) 1 % (0-10); Hematocrit 28.3 % (36.0-46.0); Hemoglobin 9.2 g/dL (12.0-16.0); Immature Granulocytes % (Auto) 1 % (0-0); Lymphocytes % (Auto) 4 % (10-50); Mean Corpuscular HGB Conc 32.5 g/dl (31.0-37.0); Mean Corpuscular Hemoglobin 28.1 pg (25.0-35.0); Mean Corpuscular Volume 87 fL (80-100); Monocytes # (Auto) 0.7 Thou/mm3 (0.0-0.8); Monocytes % (Auto) 3 % (0-12); Neutrophils # (Auto) 21.2 Thou/mm3 (1.8-7.7); Neutrophils % (Auto) 90 % (37-80); Nucleated Red Blood Cell # 0.25 Thou/mm3 (0.00-0.00); Nucleated Red Blood Cell % 1 /100 WBC (0); Platelet Count 312 Thou/mm3 (140-440); Red Blood Count 3.27 Miln/mm3 (4.00-5.20); White Blood Count 23.4 Thou/mm3 (3.6-11.0)
[2024-05-21 07:34] LABS: Glucose Estimated Average 134 mg/dL (80-131); Hemoglobin A1C 6.3 % Hgb (4.8-6.0)
[2024-05-21] MEDS: PANTOPRAZOLE INJ 40 MG VIAL IVP ×2 (08:18→20:48)
--- NOTE | 2024-05-21 08:57 | ESPR_ITS ---
<Statement entered by Jalen Davis MD - 05/21/24 22:25> I have personally seen and examined the patient separately on the above date of service and discussed the plan of care with the resident. I reviewed the resident Dr. Merino consultation progress note and agree with the resident findings and plan in the note above and have also edited the documentation to reflect my findings and plan. 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 Patient started on amiodarone bolus and drip and now continues to be in sinus rhythm at the present point of time. Recommend to repeat ECG. Check QTc daily and since the patient is on amiodarone. Patient should be on amiodarone 200 mg twice daily initially and then after 1 month can be changed to amiodarone 200 mg once daily if the QTc is normal. No beta-christian for now and the patient was hypotensive. Patient was not started on any anticoagulation as mentioned above with esophageal perforation and recent surgery. Now given the 16mm acute infarct noted on the CT, recommended the primary team to discuss with both surgery and neurology if okay for anticoagulation as the patient will need to be on anticoagulation given paroxysmal atrial fibrillation. Patient was also hypotensive overnight was not started on Levophed drip and all antihypertensives discontinued and recommend to continue to titrate down the Levophed to keep the MAP greater than 65 mmHg. Jalen Davis M.D. Interventional Cardiology Documentation for date of: 05/21/24 Subjective Subjective Interval history: Patient seen in the ICU this morning. No overnight events. Telemtry monitor showed patient was sinus rhythm overnight. Patient more alert and awake today. Recommend to continue Amio drip as well as amiodarone 200 mg BID. Continue vasopressor support as necessary. Potassium 4.3 magnesium 2.5, recommend to replete potassium and magnesium to keep above 4 and 2 respectively to avoid any further arrhythmias. Head CT done yesterday showed a 16mm infarct in left cerebellar hemisphere which could be acute Given patient has A-fib, will need to be on anticoagulation but will need the okay from both neurology and general surgery to start Eliquis. Echo on 05/16/2024 showed the following findings: Normal LV size and function with an estimated EF of 55 to 60%. Mild LVH. Stage I diastolic dysfunction. RV not visualized appears to have normal size and function. 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 Mild AV Sclerosis without stenosis. Exam Vital Signs Temp Pulse Resp BP Pulse Ox O2 Del Method O2 Flow Rate 97.0 F 78 19 122/62 97 Nasal Cannula 2 05/21/24 04:00 05/21/24 06:17 05/21/24 06:17 05/21/24 06:00 05/21/24 06:17 05/21/24 04:00 05/21/24 06:17 FiO2 35 05/19/24 11:30 Narrative Exam General: more alert and awake today Eyes: Pupils reactive to light, Ears: No visible ear discharge Nose: No visible nasal discharge Mouth/Throat: Dry mucous membranes, no redness, no lesions. Neck: Short neck , non-tender, no cervical lymphadenopathy. Lungs: Clear FERNANDO Cardio: Normal S1/S2, regular rhythm, systolic murmurs, no JVD Abdomen: Soft, non-tender, no palpable masses, peristalsis present, no guarding or rebound. Surgical scar covered with clean dressing. Extremities: Symmetrical, no significant deformities, trace peripheral edema , non-tender, peripheral pulses presents. Skin: No rashes, no lesions, warm to touch. Neuro: Unable to respond to questions. Objective Labs 05/21/24 04:45 05/21/24 04:45 Labs: Laboratory Results - last 24 hr 05/20/24 05/20/24 05/20/24 09:05 12:05 16:02 WBC RBC Hgb Hct MCV MCH MCHC RDW Std Deviation Plt Count Neut % (Auto) Lymph % (Auto) [place] % (Auto) Eos % (Auto) Baso % (Auto) Neut # (Auto) Lymph # (Auto) [place] # (Auto) Eos # (Auto) Baso # (Auto) Immature Gran # (Auto) Absolute Nucleated RBC Immature Gran % Nucleated RBC % Sodium Potassium Chloride Carbon Dioxide Anion Gap BUN Creatinine Estim Creat Clear Calc eGFR BUN/Creatinine Ratio Glucose Estimated Ave Glu mg/dL Hemoglobin A1c Calculated Osmolality Calcium Corrected Calcium Phosphorus Magnesium Total Bilirubin AST ALT Alkaline Phosphatase Troponin I 0.172 H* 0.172 H* 0.162 H* Total Protein Albumin Globulin Albumin/Globulin Ratio Triglycerides Cholesterol LDL Cholesterol, Calc HDL Cholesterol Cholesterol/HDL Ratio TSH 05/20/24 05/20/24 05/21/24 18:01 21:07 04:45 WBC 23.4 H RBC 3.27 L Hgb 9.2 L Hct 28.3 L MCV 87 MCH 28.1 MCHC 32.5 RDW Std Deviation 53.0 H Plt Count 312 D Neut % (Auto) 90 H Lymph % (Auto) 4 L [place] % (Auto) 3 Eos % (Auto) 1 Baso % (Auto) 1 Neut # (Auto) 21.2 H Lymph # (Auto) 1.0 [place] # (Auto) 0.7 Eos # (Auto) 0.2 Baso # (Auto) 0.1 Immature Gran # (Auto) 0.30 H Absolute Nucleated RBC 0.25 H Immature Gran % 1 H Nucleated RBC % 1 H Sodium 142 Potassium 4.3 Chloride 106 Carbon Dioxide 22.9 Anion Gap 13 BUN 49 H Creatinine 4.6 H* D Estim Creat Clear Calc 10.0 L eGFR 10 L* BUN/Creatinine Ratio 11 L Glucose [address] Glu mg/dL 134 H Hemoglobin A1c 6.3 H Calculated Osmolality 295 Calcium 8.8 Corrected Calcium 9.5 Phosphorus 5.6 H Magnesium 2.5 Total Bilirubin 0.9 D AST 26 ALT 51 H Alkaline Phosphatase 92 Troponin I 0.159 H* 0.155 H* Total Protein 5.6 L Albumin 3.1 L D Globulin 2.5 Albumin/Globulin Ratio 1.2 Triglycerides 218 H Cholesterol 80 L LDL Cholesterol, Calc 26 HDL Cholesterol < 10 L Cholesterol/HDL Ratio 8.0 H TSH 2.09 ABG Interpretation ABG results: 05/13/24 05/15/24 05/15/24 08:29 15:28 16:03 ABG pH 7.39 7.05 L* D 7.17 L* D ABG pCO2 31 L 63 H D 45 D ABG pO2 78 L 38 L* D 84 D ABG HCO3 19 L 18 L 16 L ABG O2 Saturation 96 59 L 96 ABG Base Excess -5 L -12 L -11 L VBG pH VBG pCO2 VBG pO2 VBG Base Excess 05/16/24 05/17/24 05/18/24 04:38 04:03 04:20 ABG pH 7.28 L D 7.38 D 7.49 H D ABG pCO2 34 D 28 L 30 L ABG pO2 96 85 66 L ABG HCO3 16 L 17 L 23 ABG O2 Saturation 98 97 94 ABG Base Excess -10 L -8 L 0 VBG pH VBG pCO2 VBG pO2 VBG Base Excess 05/19/24 05/20/24 09:05 06:05 ABG pH 7.30 L D ABG pCO2 49 H D ABG pO2 63 L ABG HCO3 24 ABG O2 Saturation 91 ABG Base Excess -3 VBG pH 7.31 L VBG pCO2 50 VBG pO2 39 VBG Base Excess -2 Quality Measures Quality Measures VTE prophylaxis Advance care planning discussed with:: patient Assessment & Plan Assessment Current Active Medications: Generic Name Dose Route Start Last Admin Trade Name Freq PRN Reason Stop Dose Admin Albuterol/Ipratropium 3 ml 05/20/24 09:23 05/20/24 21:14 Albuterol/Ipratropium (Duoneb) Rt Jimena 3 Ml Nebu INH 06/19/24 12:59 3 ml Q6HRRT PRN Administration SOB or Wheeze Amiodarone HCl 200 mg 05/16/24 12:00 05/19/24 20:44 Amiodarone Hcl 200 Mg Tablet PO 06/15/24 11:59 200 mg BID ANGELICA Administration Heparin Sodium (Porcine) 5,000 unit 05/16/24 14:00 05/21/24 05:00 Heparin Sod Inj 5000 Unit/Ml Vial SC 05/30/24 13:59 5,000 unit Q8HR ANGELICA Administration Heparin Sodium (Porcine) 2,500 unit 05/17/24 15:52 05/19/24 11:16 Heparin Sod Inj 1000 Unit/Ml Vial 10 Ml INDWELLCAT 05/31/24 15:51 2,500 unit PRN PRN Administration DIALYSIS Hydromorphone HCl 0.25 mg 05/19/24 14:38 05/19/24 22:11 Hydromorphone Inj 2 Mg/Ml Vial IVP 05/24/24 14:37 0.25 mg Q4HR PRN Administration PAIN SCALE 4-6 (Moderate Hydromorphone HCl 0.5 mg 05/19/24 14:38 05/20/24 22:59 Hydromorphone Inj 2 Mg/Ml Vial IVP 05/24/24 14:37 0.5 mg Q6H PRN Administration PAIN SCALE 7-10 (Severe Azithromycin 500 mg/ Sodium 250 mls @ 250 mls/hr 05/14/24 09:00 05/20/24 10:03 Chloride IV 05/21/24 08:59 Infused QDAY ANGELICA Infusion Protocol Amiodarone HCl/Dextrose 360 mg in 200 mls @ 16.667 mls/hr 05/20/24 12:00 05/21/24 00:09 Nexterone Ivpb IV 05/21/24 11:59 16.667 mls/hr .Q12H ANGELICA Administration Piperacillin/Tazobactam/Dextrose 50 mls @ 12.5 mls/hr 05/20/24 14:00 05/21/24 05:00 Zosyn IV 05/27/24 13:59 12.5 mls/hr Q8HR ANGELICA Administration Fluconazole 100 mls @ 100 mls/hr 05/21/24 14:00 Diflucan/Ns Ivpb IV 05/28/24 13:59 QDAY@1400 ANGELICA Norepinephrine/Dextrose 8 mg in 250 mls @ 7.35 mls/hr 05/20/24 15:40 05/20/24 20:15 Levophed In D5w 8mg/250ml IV 06/19/24 06:55 0 mcg/kg/min .Q24H PRN 0 mls/hr PER PROTOCOL Titration Protocol 0.05 MCG/KG/MIN Ondansetron HCl 4 mg 05/13/24 11:58 05/14/24 12:31 Ondansetron Inj 2 Mg/Ml Inj 2 Ml IV 06/12/24 11:57 4 mg Q6H PRN Administration NAUSEA OR VOMITING Protocol Pantoprazole Sodium 40 mg 05/15/24 21:00 05/21/24 08:18 Pantoprazole Inj 40 Mg Vial IVP 06/14/24 20:59 40 mg BID ANGELICA Administration Pharmacy Consult 1 each 05/16/24 10:27 Pharmacy Renal Dose Adjustment 1 Ea XX 06/15/24 10:26 PRN PRN CONSULT Plan 69 y/o female with PMH of essential hypertension, gastric ulcers, hyperlipidemia, and DM2 was admitted to the hospital on 05/13/2024 due to acute encephalopathy likely secondary to sepsis secondary to CAP. 1. NSTEMI Type II 2. A-Fib with RVR, New onset -Patient has had elevated troponins from previous admissions with most recent on 11/17/2023 of 0.097 and prior to this on 12/28/2021 was 0.065 -On this admission intial troponins 0.09, uptrended to 0.239 and downtrended. -NSTEMI type II most likley in the setting of sepsis as patient has no chest pain. -EKG on this admission showed LVH with strain pattern and sinus tachycardia which is similiar to prior EKG on 11/22/2023 -CLARY ACS score of 115 points, 7% probability of -Patient in this afternoon developed A-Fib with RVR with ST depressions in anterolateral leads which are mostly rate related ST depressions -Echo on 05/16/2024 showed the following findings: Normal LV size and function with an estimated EF of 55 to 60%. Mild LVH. Stage I diastolic dysfunction. RV not visualized appears to have normal size and function. 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 Mild AV Sclerosis without stenosis. Plan: -No heparin drip at this time given the severe anemia and perforated gastric ulcer -Recommend to continue Amio 200mg P.O. BID and Amio drip. -Given patient has A-fib, will need to be on anticoagulation but will need the okay from both neurology and general surgery to start Eliquis. -Recommend to place patient on high intensity statin and aspirin if GI and general surgery are okay with starting aspirin and there are no other contraindications -Recommend no further troponins as elevated troponins most likely secondary to sepsis from type II NSTEMI. -Patient will need further ischemic evaluation which can be done when she is more stable and can be pursued as outpatient 3. Acute decompensated heart failure (EF 55-60%) 4.Essential Hypertension -Patient has some SOB, trace edema and initial BNP was 309 -CXR did show some vascular congestion -Echo from 04/26/2024 had the following findings: Normal LV size and function. Mild LVH. Estimated EF 60-65% Normal RV size and function. Mild to moderate mitral valve stenosis, mean gradient 8mmHg. Moderate MAC. Mild AI, MR, TR. Mild AV sclerosis without stenosis -Echo on 05/16/2024 showed the following findings: Normal LV size and function with an estimated EF of 55 to 60%. Mild LVH. Stage I diastolic dysfunction. RV not visualized appears to have normal size and function. 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 Mild AV Sclerosis without stenosis. Plan: -Hold diuresis in the setting of sepsis and soft BP, but if BP stabilizes will need diuresis -Strict CACHORRO's -Fluid restrictions -Low sodium diet -Daily weights -Recommend to potassium and magnessium above 4 and 2 respectively to avoid any arrhythmias. 5. Sepsis 2/2 perforated gastric ulcer 6. Community acquired pneumonia 7.Acute Encephalopathy 8. perforated gastric ulcer 9. Acute blood loss anemia 10. GI bleed -Continue current management as per primary care team 11.DM2 12. Hyperlipidemia -Continue current management as per primary care team Continue rest of management as per primary team. We are grateful to be able to participate in Mrs. Castellanos's care. Thank you for the consult Plan of care discussed with attending Tubing Machine Operator, Dr. Susan Spears MD PGY-1
--- NOTE | 2024-05-21 10:59 | PD.RESPRO ---
Documentation for date of: 05/21/24 Subjective Subjective Interval history: Mr. Castellanos is a [id number] with past medical history of prediabetes, CKD, hypertension, history of ulcers who was admitted to [facility] for sepsis secondary to pneumonia and acute metabolic encephalopathy. Patient was BIBA to the ED after being found unconscious on the floor. According to the son on admission patient's daughter found the patient at 3 AM passed out on the floor and unresponsive. Family is unaware along the patient was on the floor. 2 days ago patient started to develop abdominal pain and weakness all over her body associated with some diarrhea and shortness of breath. Patient's abdominal pain comes and goes from right side to left side of the abdomen. ED course patient was hypertensive tachycardic tachypneic and was saturating 92% on 5 L nasal cannula ED labs significant for WBCs 24.3, bicarb 19.6, glucose 259, lactic acid 2.2, BNP 304, troponin 0.09. 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, colonic diverticulosis, Cervical spine CT showed 3 mm radiolucency in C3 vertebral body Chest CTA showed mild aneurysmal dilatation ascending thoracic aorta AP dimension 4.3 cm and pulmonary artery hypertension with moderate vascular congestion Face CT shows no acute facial fracture, Lumbar spine CT shows no acute lumbar fracture severe acquired spinal stenosis L4-L5, Thoracic spine CT showed no acute fracture Brain MRI with MRA showed equally focal restricted diffusion brainstem medullary level significant stenosis of right P1 P2 segment posterior cerebral artery Postadmission, cardiology was consulted on admission because of elevated troponins, suspicion of NSTEMI type II, patient has acute decompensated heart failure per cardiology evaluation, neurology consulted because of patient's acute metabolic encephalopathy and GI was consulted for suspicion of GI bleed. Eventually on 05/15 rapid response was called for worsening chest pain, patient's map was consistently in 70s, was tachycardic tachypneic. CT angiogram showed pneumoperitoneum multiple air droplets adjacent to and within wall of stomach with suspicion of gastric perforation. General surgery was consulted for emergency surgery and patient had exploratory laparotomy with repair of perforated gastric ulcer with an omental patch. Patient was upgraded to ICU postop for further management patient currently on Levophed and vasopressor due to distributive shock, currently sedated and intubated on mechanical ventilation. Nephrology consulted due to concern of ADILSON. 05/16/24: Patient seen at bedside, patient's daughter present at bedside labs reviewed patient's creatinine 3.0, GFR 16 and BUN 60. Patient's baseline GFR more than 60, does report history of chronic kidney disease. Patient's urine output yesterday 820 mL, there is suspicion of acute kidney injury due to patient's underlying distributive shock versus hypovolemic shock, will continue to monitor patient's urine output and renal panel in a.m., plan of care discussed with patient's family at bedside they want to proceed with dialysis if needed. Will continue to monitor patient. 05/17/24: Patient seen at bedside, patient continues to remain sedated and is on pressors currently, patient's BUN 76, creatinine 3.5, GFR 14. Renal function has continued to decline, patient has minimal urine output only 320 mL in the last 24 hours, patient will be started on dialysis treatment today, will start dialysis post catheter placement. Will monitor labs in a.m., will continue to monitor patient. 05/18/24: Patient seen at bedside, continues to remain sedated and is on pressors currently, patient's hemoglobin was 6.5 in AM, plan to give 2 units of PRBC with dialysis today. Patient did receive hemodialysis yesterday for 2 hours 31 minutes. Today patient will receive another dialysis treatment, patient's urine output continues to remain low, about 200 cc in the last 24 hours, will continue to monitor renal function. 05/19/24: Patient seen at bedside, continues to was extubated yesterday, seen at bedside currently unresponsive. Patient is scheduled for hemodialysis today with goal to remove 2 L fluid, had hemodialysis yesterday and about 3.2 L fluid was removed. Patient's urine output continues to remain low, produced about 100 cc worth of urine in the last 24 hours, renal function shows a creatinine 3.8, BUN 59, EGFR 12, will monitor urine output and renal function. 05/20/24: Patient seen at bedside, was downgraded to floors yesterday, was hypotensive overnight, was upgraded to ICU, currently on pressors, agonal breathing noted, will hold dialysis today, patient did receive dialysis yesterday, had about 1.5 L fluid removed. Patient's urine output continues to remain low. Will continue to monitor patient closely. 05/20/24: Patient seen at bedside in the ICU. Saturates well on 2 L NC, blood pressure 134/80, off pressors. Tries to follow commands. On examination has extensive anasarca. Urine output 210 mL. Patient will receive dialysis today with goal to remove 2 L of fluid. Will continue to monitor patient closely. Labs showed sodium 142, potassium 4.3, BUN 49, creatinine 4.6, EGFR 10. Exam Vital Signs Temp Pulse Resp BP Pulse Ox O2 Del Method O2 Flow Rate 98.2 F 77 19 134/80 H 97 Nasal Cannula 2 05/21/24 10:42 05/21/24 10:53 05/21/24 10:42 05/21/24 10:53 05/21/24 10:42 05/21/24 04:00 05/21/24 10:42 FiO2 35 05/21/24 10:42 Narrative Exam Physical Exam General: Awake and in no acute distress. Moderately obtunded. GCS 11. HEENT: Normocephalic, atraumatic, mucous membranes moist. Heart: Regular rate and rhythm, no murmurs. Lungs: Clear to auscultation with no wheezing or crackles. Abdomen: Soft, nondistended, nontender, positive bowel sounds. ?No guarding or rebound tenderness. Neurologic: Alert and oriented x3, no gross neurological deficit, and patient able to move all 4 extremities. Extremities: Lower and upper extremities edema. Anasarca. Skin: No rash or ecchymoses. Objective Labs 05/23/24 05:39 05/23/24 05:39 Labs: Laboratory Results - last 24 hr 05/20/24 05/20/24 05/20/24 12:05 16:02 18:01 WBC RBC Hgb Hct MCV MCH MCHC RDW Std Deviation Plt Count Neut % (Auto) Lymph % (Auto) [place] % (Auto) Eos % (Auto) Baso % (Auto) Neut # (Auto) Lymph # (Auto) [place] # (Auto) Eos # (Auto) Baso # (Auto) Immature Gran # (Auto) Absolute Nucleated RBC Immature Gran % Nucleated RBC % Sodium Potassium Chloride Carbon Dioxide Anion Gap BUN Creatinine Estim Creat Clear Calc eGFR BUN/Creatinine Ratio Glucose Estimated Ave Glu mg/dL Hemoglobin A1c Calculated Osmolality Calcium Corrected Calcium Phosphorus Magnesium Total Bilirubin AST ALT Alkaline Phosphatase Troponin I 0.172 H* 0.162 H* 0.159 H* Total Protein Albumin Globulin Albumin/Globulin Ratio Triglycerides Cholesterol LDL Cholesterol, Calc HDL Cholesterol Cholesterol/HDL Ratio TSH 05/20/24 05/21/24 21:07 04:45 WBC 23.4 H RBC 3.27 L Hgb 9.2 L Hct 28.3 L MCV 87 MCH 28.1 MCHC 32.5 RDW Std Deviation 53.0 H Plt Count 312 D Neut % (Auto) 90 H Lymph % (Auto) 4 L [place] % (Auto) 3 Eos % (Auto) 1 Baso % (Auto) 1 Neut # (Auto) 21.2 H Lymph # (Auto) 1.0 [place] # (Auto) 0.7 Eos # (Auto) 0.2 Baso # (Auto) 0.1 Immature Gran # (Auto) 0.30 H Absolute Nucleated RBC 0.25 H Immature Gran % 1 H Nucleated RBC % 1 H Sodium 142 Potassium 4.3 Chloride 106 Carbon Dioxide 22.9 Anion Gap 13 BUN 49 H Creatinine 4.6 H* D Estim Creat Clear Calc 10.0 L eGFR 10 L* BUN/Creatinine Ratio 11 L Glucose [address] Glu mg/dL 134 H Hemoglobin A1c 6.3 H Calculated Osmolality 295 Calcium 8.8 Corrected Calcium 9.5 Phosphorus 5.6 H Magnesium 2.5 Total Bilirubin 0.9 D AST 26 ALT 51 H Alkaline Phosphatase 92 Troponin I 0.155 H* Total Protein 5.6 L Albumin 3.1 L D Globulin 2.5 Albumin/Globulin Ratio 1.2 Triglycerides 218 H Cholesterol 80 L LDL Cholesterol, Calc 26 HDL Cholesterol < 10 L Cholesterol/HDL Ratio 8.0 H TSH 2.09 ABG Interpretation ABG results: 05/13/24 05/15/24 05/15/24 08:29 15:28 16:03 ABG pH 7.39 7.05 L* D 7.17 L* D ABG pCO2 31 L 63 H D 45 D ABG pO2 78 L 38 L* D 84 D ABG HCO3 19 L 18 L 16 L ABG O2 Saturation 96 59 L 96 ABG Base Excess -5 L -12 L -11 L VBG pH VBG pCO2 VBG pO2 VBG Base Excess 05/16/24 05/17/24 05/18/24 04:38 04:03 04:20 ABG pH 7.28 L D 7.38 D 7.49 H D ABG pCO2 34 D 28 L 30 L ABG pO2 96 85 66 L ABG HCO3 16 L 17 L 23 ABG O2 Saturation 98 97 94 ABG Base Excess -10 L -8 L 0 VBG pH VBG pCO2 VBG pO2 VBG Base Excess 05/19/24 05/20/24 09:05 06:05 ABG pH 7.30 L D ABG pCO2 49 H D ABG pO2 63 L ABG HCO3 24 ABG O2 Saturation 91 ABG Base Excess -3 VBG pH 7.31 L VBG pCO2 50 VBG pO2 39 VBG Base Excess -2 Quality Measures Quality Measures VTE prophylaxis Advance care planning discussed with:: other Assessment & Plan Assessment Current Active Medications: Generic Name Dose Route Start Last Admin Trade Name Freq PRN Reason Stop Dose Admin Albuterol/Ipratropium 3 ml 05/20/24 09:23 05/20/24 21:14 Albuterol/Ipratropium (Duoneb) Rt Jimena 3 Ml Nebu INH 06/19/24 12:59 3 ml Q6HRRT PRN Administration SOB or Wheeze Amiodarone HCl 200 mg 05/16/24 12:00 05/19/24 20:44 Amiodarone Hcl 200 Mg Tablet PO 06/15/24 11:59 200 mg BID ANGELICA Administration Heparin Sodium (Porcine) 5,000 unit 05/16/24 14:00 05/21/24 05:00 Heparin Sod Inj 5000 Unit/Ml Vial SC 05/30/24 13:59 5,000 unit Q8HR ANGELICA Administration Heparin Sodium (Porcine) 2,500 unit 05/17/24 15:52 05/19/24 11:16 Heparin Sod Inj 1000 Unit/Ml Vial 10 Ml INDWELLCAT 05/31/24 15:51 2,500 unit PRN PRN Administration DIALYSIS Hydromorphone HCl 0.25 mg 05/19/24 14:38 05/19/24 22:11 Hydromorphone Inj 2 Mg/Ml Vial IVP 05/24/24 14:37 0.25 mg Q4HR PRN Administration PAIN SCALE 4-6 (Moderate Hydromorphone HCl 0.5 mg 05/19/24 14:38 05/20/24 22:59 Hydromorphone Inj 2 Mg/Ml Vial IVP 05/24/24 14:37 0.5 mg Q6H PRN Administration PAIN SCALE 7-10 (Severe Amiodarone HCl/Dextrose 360 mg in 200 mls @ 16.667 mls/hr 05/20/24 12:00 05/21/24 00:09 Nexterone Ivpb IV 05/21/24 11:59 16.667 mls/hr .Q12H ANGELICA Administration Piperacillin/Tazobactam/Dextrose 50 mls @ 12.5 mls/hr 05/20/24 14:00 05/21/24 05:00 Zosyn IV 05/27/24 13:59 12.5 mls/hr Q8HR ANGELICA Administration Fluconazole 100 mls @ 100 mls/hr 05/21/24 14:00 Diflucan/Ns Ivpb IV 05/28/24 13:59 QDAY@1400 ANGELICA Norepinephrine/Dextrose 8 mg in 250 mls @ 7.35 mls/hr 05/20/24 15:40 05/20/24 20:15 Levophed In D5w 8mg/250ml IV 06/19/24 06:55 0 mcg/kg/min .Q24H PRN 0 mls/hr PER PROTOCOL Titration Protocol 0.05 MCG/KG/MIN Albumin Human 25 gm in 100 mls @ 100 mls/min 05/21/24 10:08 Albuminar-25 Ivpb IV PRN PRN DIALYSIS Ondansetron HCl 4 mg 05/13/24 11:58 05/14/24 12:31 Ondansetron Inj 2 Mg/Ml Inj 2 Ml IV 06/12/24 11:57 4 mg Q6H PRN Administration NAUSEA OR VOMITING Protocol Pantoprazole Sodium 40 mg 05/15/24 21:00 05/21/24 08:18 Pantoprazole Inj 40 Mg Vial IVP 06/14/24 20:59 40 mg BID ANGELICA Administration Pharmacy Consult 1 each 05/16/24 10:27 Pharmacy Renal Dose Adjustment 1 Ea XX 06/15/24 10:26 PRN PRN CONSULT Plan Summary: Mr. Castellanos is a [id number] with past medical history of prediabetes, CKD, hypertension, history of ulcers who was admitted to [facility] for sepsis secondary to pneumonia and acute metabolic encephalopathy. Patient is currently sedated intubated in ICU status post exploratory laparotomy with repair of perforated gastric ulcer with an omental patch. Nephrology consulted for acute kidney injury. #Acute kidney injury #Acute Tubular Necrosis 2/2 shock #Anasarca Patient does report history of chronic kidney disease secondary to hypertension, baseline GFR noted to be more than 60, patient presented with GFR 45, improved initially to more than 60. Patient did have ADILSON on 05/15 with creatinine 2.4 since then creatinine worsened to 3.0 and nephrology was consulted. Urine analysis significant for protein 1+, specific gravity 1.048, RBC 37, WBC 9, uric acid crystals 4+, yeast present, urine random sodium less than 10. FENa 0.2 etiology prerenal. Patient had temporary Vas-Cath placed yesterday, received 2-hour 30 minutes of dialysis treatment, patient had 3.2 L removed yesterday. Patient's urine output continues to remain low, produced about 100 cc in the last 24 hours. Patient received dialysis treatment yesterday with 1.5 L fluid removed Plan: -Dialysis treatment today, goal 2L of fluid to be removed -Renally dose medications -Avoid nephrotoxic agents -Monitor urine output, strict I&O's -Follow renal panel in a.m. Plan discussed with ICU team. #Metabolic acidosis, resolved #Lactic Acidosis #Acute Encephalopathy #Acute ischemic stroke #Distributive shock #Acute decompensated HF #Elevated Troponin #Hyperlipidemia #Primary Hypertension #Acute Hypoxic Respiratory failure #Pneumoperitoneum #Peritonitis secondary to perforated gastric ulcer #Acute Upper GI bleed #Diabetes Mellitus type II #Acute anemia Management as per primary team. Plan of care discussed with attending Dr. August. Altagracia Kim MD, PGY 1. Attending Provider Attestation/Addendum Patient seen and examined with resident physician Dr. Frias. Note reviewed, agree with findings and recommendations. Patient currently seen on dialysis. Currently in ICU. Significant fluid overload noted. Patient might be started on TPN. Hemodialysis for 3 hours, 2K, ultrafiltration 2-3 L, Epogen 6000, no heparin ordered. Plan of care discussed with the dialysis nurse. Please see dialysis flowsheet for further details.
--- NOTE | 2024-05-21 13:02 | ESPR_ITS ---
Documentation for date of: 05/21/24 Subjective Subjective Brief History: 69F with HTN, CKDIII, pre DM and known gastric ulcers who was admitted 05/13 after being found down at home. Pt was admitted for encephalopathy and pneumonia, developed anemia for which EGD was planned today however this am had an [employer] for tachycardia, hypotension and acute pain; she underwent CT AP showing pneumoperitoneum with air droplets adjacent to the stomach PMH: HTN, CKDIII, preDM, known gastric ulcers on EGD 10/2023 PSHx: None Meds: No antiplt or anticoagulation Allergies: NKDA Narrative: Yesterday developed BALAJI drainage which appeared similar to tube feeds, it was 210cc in the previous 24 hours and pt again developed afib prompting return to ICU. CT AP showed pneumoperitoneum and minimal free fluid. She has remained afeb rile, has had 0cc BALAJI output so far today and her NG is to LIS with minimal output. She had a BM this morning which was large volume and did not contain blood or tarry material Exam Vital Signs Temp Pulse Resp BP Pulse Ox O2 Del Method O2 Flow Rate 97.8 F 75 17 123/66 98 Nasal Cannula 2 05/21/24 12:00 05/21/24 12:45 05/21/24 12:45 05/21/24 12:45 05/21/24 12:45 05/21/24 04:00 05/21/24 10:42 FiO2 35 05/21/24 10:42 Constitutional Constitutional: no acute distress Routine Respiratory Exam Respiratory: Present no resp distress Routine Abdominal Exam Abdominal: Present soft, distended (mild distention), wound (midline wound with aixa intact) and drain (BALAJI with scant thick output); Absent tenderness Results Results: Laboratory Laboratory results: results reviewed Results: Imaging CT scan - abdomen: report reviewed and image reviewed Assessment & Plan Plan 69F with HTN, CKDIII, pre DM and known gastric ulcers who was admitted 05/13 after being found down at home, who developed pneumoperitoneum 05/15 now s/p emergent ex lap, repair of gastric perforation, gradually recovering. Yesterday repeat CT showed pneumoperitoneum which could be post surgical, could represent a recurrence of perforation however to repeat laparotomy now would confer greater risk than benefit in the setting of a likely frozen abdomen with dense adhesions. Pt should continue to be managed conservatively with bowel rest and antibiotics Continue NG to LIS and strict NPO for now Strict I&O of BALAJI Continue abx Procedures Procedures Exploratory laparotomy, repair of perforated gastric ulcer
[2024-05-21] MEDS: HEPARIN SOD INJ 1000 UNIT/ML VIAL 10 ML 2500 UNIT INDWELLCAT (13:33)
--- NOTE | 2024-05-21 14:09 | PC.NURSE ---
Dialysis completed for 3 hrs, tolerated well. Able to removed 2000 ml of fluid net. Pt awake. Respiration even and unlabored, sating at 98% on O2 at 2L/min via nc. Post tx BP 134/67, HR 78, Temp 97.5. Report given to Susi SPARKS.
--- NOTE | 2024-05-21 15:04 | PD.RESPRO ---
Documentation for date of: 05/21/24 Subjective Subjective Interval history: 05/16: Late in the evening, pt's MAP was dropping below 60 and required vasopressin in addition to levophed. Patient had a trial of pressure support which she did not tolerate and was overworking the vent therefore changed the setting back to assist-control. Patient sedation medication today, she became agitated and restless therefore increased the fentanyl to RASS goal of -3 and DC'd the propofol. Later in the afternoon patient had a new onset of A-fib and was started on amiodarone drip, ordered EKG, and echo. 05/17: No acute overnight events. Patient had no urinary output through the night and decreased urine output during the day. Patient continues to be on vasopressin and Levophed to maintain MAP above 65. She is currently sedated on fentanyl and propofol. Today patient got a catheter for hemodialysis as patient requires a session today with creatinine of 3.4 and GFR 14. Patient's kidney function continues to decline. Patient also failed spontaneous breathing trial so we will continue intubation today and will retry tomorrow. Echo findings are consistent with ejection fraction of 55 to 60% . Patient is transition from amiodarone drip to p.o. amiodarone. 05/18: Overnight patient hemoglobin dropped below 7 and received 2 units of PRBC. Patient is seen and examined at bedside patient continues to have 0 to 10 mL/h urinary output. Patient also had a black tarry bowel movement. Patient underwent HD fluid removal only and removed 2.1 L. Patient is also extubated today. She is doing better, breathing comfortably but complains of abdominal pain which is expected as she is status post abdominal surgery. ABGs are stable. 05/19: no acute overnight events. Pt continues to complain of abdominal pain and minimal urinary output pt. has another episode of black smeared bowel movement but Hgb is stable therefore will continue to monitor daily CBC. Pt is very sensitive to Dilaudid and morphine and causes her to have a decreased respiratory drive with respirations around 9 and 10. Will have to resort to another type of pain management possibly either [place] or IV Tylenol. Will try 0.25 Dilaudid. Patient underwent HD fluid removal and was able to tolerate removing only 1.5 L and patient became hypotensive and Levophed drip was started for a few hours and DC'd the Levophed at 2 PM. 05/21: No acute overnight events patient is saturating on 3 L of oxygen via nasal cannula. patient is unable to follow commands she is able to track the examiners voice. Patient underwent HD fluid removal and removed 2 L of fluid. Patient is more alert when family is around. Patient is placed on intermittent suctioning and stopped tube feedings due to bowel rest will start TPN tomorrow although patient is fluid overloaded and will have to undergo HD fluid removal tomorrow again. Will order IR to place a PICC line specifically for TPN as well as amiodarone drip since patient cannot take p.o. amiodarone due to bowel rest. Still unable to assess neurological function as patient's mentation seems withdrawn. Exam Vital Signs Temp Pulse Resp BP Pulse Ox O2 Del Method O2 Flow Rate 97.5 F 78 18 134/67 H 98 Nasal Cannula 2 05/21/24 14:02 05/21/24 14:02 05/21/24 14:02 05/21/24 14:02 05/21/24 14:02 05/21/24 04:00 05/21/24 14:02 FiO2 35 05/21/24 14:02 Narrative Exam GENERAL: Patient is awake, alert but is unable to follow commands NEURO: unable to assess because patient is unable to follow commands HEENT: Atraumatic, Normocephalic. mucous membranes moist, left IJ HEART: Normal Heart Sounds LUNGS: Clear to auscultation with no wheezing or crackles. ABDOMEN: surgical scar is clean with BALAJI drain in place with minimal output SKIN: No Rash or ecchymoses EXTREMITIES: 2+ pitting edema in upper and lower extremities, pedal pulses palpated Objective Labs 06/01/24 05:05 06/01/24 05:05 Labs: Laboratory Results - last 24 hr 05/20/24 05/20/24 05/20/24 16:02 18:01 21:07 WBC RBC Hgb Hct MCV MCH MCHC RDW Std Deviation Plt Count Neut % (Auto) Lymph % (Auto) [place] % (Auto) Eos % (Auto) Baso % (Auto) Neut # (Auto) Lymph # (Auto) [place] # (Auto) Eos # (Auto) Baso # (Auto) Immature Gran # (Auto) Absolute Nucleated RBC Immature Gran % Nucleated RBC % Sodium Potassium Chloride Carbon Dioxide Anion Gap BUN Creatinine Estim Creat Clear Calc eGFR BUN/Creatinine Ratio Glucose Estimated Ave Glu mg/dL Hemoglobin A1c Calculated Osmolality Calcium Corrected Calcium Phosphorus Magnesium Total Bilirubin AST ALT Alkaline Phosphatase Troponin I 0.162 H* 0.159 H* 0.155 H* Total Protein Albumin Globulin Albumin/Globulin Ratio Triglycerides Cholesterol LDL Cholesterol, Calc HDL Cholesterol Cholesterol/HDL Ratio TSH 05/21/24 04:45 WBC 23.4 H RBC 3.27 L Hgb 9.2 L Hct 28.3 L MCV 87 MCH 28.1 MCHC 32.5 RDW Std Deviation 53.0 H Plt Count 312 D Neut % (Auto) 90 H Lymph % (Auto) 4 L [place] % (Auto) 3 Eos % (Auto) 1 Baso % (Auto) 1 Neut # (Auto) 21.2 H Lymph # (Auto) 1.0 [place] # (Auto) 0.7 Eos # (Auto) 0.2 Baso # (Auto) 0.1 Immature Gran # (Auto) 0.30 H Absolute Nucleated RBC 0.25 H Immature Gran % 1 H Nucleated RBC % 1 H Sodium 142 Potassium 4.3 Chloride 106 Carbon Dioxide 22.9 Anion Gap 13 BUN 49 H Creatinine 4.6 H* D Estim Creat Clear Calc 10.0 L eGFR 10 L* BUN/Creatinine Ratio 11 L Glucose [address] Glu mg/dL 134 H Hemoglobin A1c 6.3 H Calculated Osmolality 295 Calcium 8.8 Corrected Calcium 9.5 Phosphorus 5.6 H Magnesium 2.5 Total Bilirubin 0.9 D AST 26 ALT 51 H Alkaline Phosphatase 92 Troponin I Total Protein 5.6 L Albumin 3.1 L D Globulin 2.5 Albumin/Globulin Ratio 1.2 Triglycerides 218 H Cholesterol 80 L LDL Cholesterol, Calc 26 HDL Cholesterol < 10 L Cholesterol/HDL Ratio 8.0 H TSH 2.09 ABG Interpretation ABG results: 05/13/24 05/15/24 05/15/24 08:29 15:28 16:03 ABG pH 7.39 7.05 L* D 7.17 L* D ABG pCO2 31 L 63 H D 45 D ABG pO2 78 L 38 L* D 84 D ABG HCO3 19 L 18 L 16 L ABG O2 Saturation 96 59 L 96 ABG Base Excess -5 L -12 L -11 L VBG pH VBG pCO2 VBG pO2 VBG Base Excess 12/05/17/24 05/18/24 04:38 04:03 04:20 ABG pH 7.28 L D 7.38 D 7.49 H D ABG pCO2 34 D 28 L 30 L ABG pO2 96 85 66 L ABG HCO3 16 L 17 L 23 ABG O2 Saturation 98 97 94 ABG Base Excess -10 L -8 L 0 VBG pH VBG pCO2 VBG pO2 VBG Base Excess 05/19/24 05/20/24 09:05 06:05 ABG pH 7.30 L D ABG pCO2 49 H D ABG pO2 63 L ABG HCO3 24 ABG O2 Saturation 91 ABG Base Excess -3 VBG pH 7.31 L VBG pCO2 50 VBG pO2 39 VBG Base Excess -2 Quality Measures Quality Measures VTE prophylaxis Advance care planning discussed with:: child Assessment & Plan Assessment Current Active Medications: Generic Name Dose Route Start Last Admin Trade Name Freq PRN Reason Stop Dose Admin Albuterol/Ipratropium 3 ml 05/20/24 09:23 05/20/24 21:14 Albuterol/Ipratropium (Duoneb) Rt Jimena 3 Ml Nebu INH 06/19/24 12:59 3 ml Q6HRRT PRN Administration SOB or Wheeze Amiodarone HCl 200 mg 05/16/24 12:00 05/19/24 20:44 Amiodarone Hcl 200 Mg Tablet PO 06/15/24 11:59 200 mg BID ANGELICA Administration Heparin Sodium (Porcine) 5,000 unit 05/16/24 14:00 05/21/24 05:00 Heparin Sod Inj 5000 Unit/Ml Vial SC 05/30/24 13:59 5,000 unit Q8HR ANGELICA Administration Heparin Sodium (Porcine) 2,500 unit 05/17/24 15:52 05/21/24 13:33 Heparin Sod Inj 1000 Unit/Ml Vial 10 Ml INDWELLCAT 05/31/24 15:51 2,500 unit PRN PRN Administration DIALYSIS Hydromorphone HCl 0.25 mg 05/19/24 14:38 05/19/24 22:11 Hydromorphone Inj 2 Mg/Ml Vial IVP 05/24/24 14:37 0.25 mg Q4HR PRN Administration PAIN SCALE 4-6 (Moderate Hydromorphone HCl 0.5 mg 05/19/24 14:38 05/20/24 22:59 Hydromorphone Inj 2 Mg/Ml Vial IVP 05/24/24 14:37 0.5 mg Q6H PRN Administration PAIN SCALE 7-10 (Severe Fluconazole 100 mls @ 100 mls/hr 05/21/24 14:00 Diflucan/Ns Ivpb IV 05/28/24 13:59 QDAY@1400 ANGELICA Norepinephrine/Dextrose 8 mg in 250 mls @ 7.35 mls/hr 05/20/24 15:40 05/20/24 20:15 Levophed In D5w 8mg/250ml IV 06/19/24 06:55 0 mcg/kg/min .Q24H PRN 0 mls/hr PER PROTOCOL Titration Protocol 0.05 MCG/KG/MIN Albumin Human 25 gm in 100 mls @ 100 mls/min 05/21/24 10:08 Albuminar-25 Ivpb IV PRN PRN DIALYSIS Piperacillin/Tazobactam/Dextrose 50 mls @ 12.5 mls/hr 05/21/24 21:00 Zosyn IV 05/27/24 13:59 Q12HR AGNELICA Ondansetron HCl 4 mg 05/13/24 11:58 05/14/24 12:31 Ondansetron Inj 2 Mg/Ml Inj 2 Ml IV 06/12/24 11:57 4 mg Q6H PRN Administration NAUSEA OR VOMITING Protocol Pantoprazole Sodium 40 mg 05/15/24 21:00 05/21/24 08:18 Pantoprazole Inj 40 Mg Vial IVP 06/14/24 20:59 40 mg BID ANGELICA Administration Pharmacy Consult 1 each 05/16/24 10:27 Pharmacy Renal Dose Adjustment 1 Ea XX 06/15/24 10:26 PRN PRN CONSULT Plan Ms. Castellanos is a 69-year-old female with past medical history significant for hypertension, diabetes, CKD stage III, and history of gastric ulcers who presented to the ED on 05/13/2024 after she was found unconscious on the floor. Per chart reviewing prior to this unconsciousness patient was having abdominal pain and generalized weakness with diarrhea and shortness of breath for 2 days. Patient was admitted to the hospital for treatment and management of sepsis secondary to pneumonia. Patient was given 1 L normal saline and started on ceftriaxone and azithromycin. patient underwent ex lap surgery for perforated gastric ulcer. Patient remained intubated postop and is upgraded to the ICU. Neuro: # Acute encephalopathy-improving -Likely multifactorial secondary to sepsis versus metabolic versus neurologic versus medication -This morning patient was not looking at the examiner patient recently has recovered from septic shock and high BUN, patient received Dilaudid overnight which decreased her respiratory drive and less responsive. -Patient is less responsive and is unable to follow commands however she is tracking the examiner with her eyes Cardiovasc: #shock - resolved DDx: more likely cardiogenic 2/2 afib with RVR, complicated by s/p laparotomy state -S/P aggressive fluid resuscitation, continue to monitor and will give additional fluids as needed -On levophed and vasopression to maintain MAP >65, wean as tolerated. -Status post 1 unit PRBC given 05/15/2024 for hemoglobin below 7 -Continue iv antibiotics and additional fluids as needed and treat underlying cause -Treat underlying cause # New onset A-fib with RVR -Likely secondary to shock in the setting of abdominal surgery -EKG findings consistent with A-fib -Was on Amiodarone 200 twice daily for new onset Afib, but as she was in AFib with RVR, started on amio drip -Cardiology consulted #Acute exacerbation of HFpEF #Hx. of CHF -echo 05/16 -estimated EF of 55 to 60%, stage I diastolic dysfunction noted, Moderate to severe posterior MAC -Pt presented with SOB and 2+ edema in LE -elevated BNP from 304 --> 1110 -HD in the setting of anuria -holding guideline directed medical therapy due to shock, will resume when able -HD dialysis removing 2 L fluid done today #Hyperlipidemia -Plan: Hold home atorvastatin as patient is npo. Will reinstate as tolerated #Primary Hypertension -Plan: Hold home amlodipine in setting of shock Pulm: #Acute Hypoxic Respiratory failure likely multifactorial -2/2 to pulmonary edema in the setting of volume overload 2/2 ATN due to shock leading to oligoanuria versus bibasilar pneumonia -Further complicated by bilateral lung atelectasis in the setting of recent abdominal surgery and sedatives use -Patient was intubated and on mechanical ventilation (05/15) and extubated 05/18/2024, currently saturating 95-97 % on 2-3 L NC GI: #Pneumoperitoneum #Peritonitis secondary to perforated gastric ulcer Patient found to have tender abdomen, rigidity in the epigastrium, chest x-ray showed elevation of hemidiaphragm, CT abdomen showed pneumoperitoneum, concern for perforated viscus, general surgeon Dr. Santana was consulted for emergency laparotomy and possible repair of perforated gastric ulcer. Repeat CT abd/pel on 05/20 revealed Pneumoperitoneum, orogastric tube in the stomach, mild free fluid adjacent to the stomach and anterior to the pancreas. ?Patient was given IV fluid boluses, IV albumin 1 PRBC was ordered ?Antibiotic coverage was broadened to Zosyn to cover for anaerobic and enteric pathogens. - Plan: s/p Exploratory laparotomy & repair of perforated gastric ulcer - 05/15. -Surgery following and on pain management with Dilaudid (hold if RR <15) -GI surgeon Dr. Hernandez was made aware of the situation, and she recommended stopping tube feed and starting slow intermittent suctioning via NG tube. -She was also started on Diflucan 400 Mg IV daily for fungal prophylaxis. #Acute Upper GI bleed - stable - most likely secondary to perforated gastric ulcer -Patient had a single episode of black tarry stool today-likely setting of recent abdominal surgery - Plan: Continue iv Protonix. -Hold chemical anticoagulation -Will monitor for alarm signs of active bleeding with melena or hematochezia #GI ppx - pantoprazole #Diet -hold all tube feedings due to bowel rest. Will start TPN 05/22/24 Renal: #Acute tubular necrosis - 2/2 septic shock - Baseline Cr appears to be 0.7 - Renally dose medications and avoid nephrotoxic agents - Plan: Patient underwent HD fluid removal and removed 2.1 L on 05/18 and 1.5 L on 05/19, 2L fluid removed 05/[address] August and request for HD - Guajardo catheter in place and monitor urine output closely. -repeat labs in am -Nephrology following Endo: #hypoglycemia, resolved #Diabetes Mellitus type II - A1C 6.3 % , BG 78 - Hold home glipizide and januvia - Plan: Continue to monitor blood sugars -Blood glucose is above 180 we will start the patient on medium insulin sliding scale Heme/Onc: #Acute blood loss anemia 2/2 perforated ulcer- S/P surgical repair -Hgb stable 9.2 Hct 28.3 ?patient received 2 units of PRBC 05/18 due to acutely drop in Hgb below 7. No signs of active bleeding. -Plan: Continue to monitor daily CBC. transfuse for hemoglobin less than 7. #Leucocytosis: Likely 2/2 bacterial peritonitis -On IV zosyn -On IV Diflucan 400mg IV daily for fungal prophylaxis ID -On zosyn for bacterial peritonitis (Skin:) #Pressure Ulcer Prevention Disposition: ICU for AHRF & cardiogenic shock DVT Prophylaxis: Hold chemical anticoagulation in setting of possible GI bleed GI Prophylaxis: Pantoprozol-40 IV Diet: Trickle feeds through NG tube Lines: central line left IJ for dialysis Code status: Full Assessment and plan discussed with my attending physician Dr. Shantal Rivera ([id number])- Internal medicine resident Attending Provider Attestation/Addendum Patient seen and examined with above resident, Karol Rivera MD. I agree with the findings, assessment, and plan of care as documented except for any differences below. Patient's mentation continues to be waxing and waning with issues overnight including with oxygenation. Suspect component of fluid overload in the setting of her renal failure as well as malnutrition. Patient made NPO given suspicion for leak from [place] patch. Patient unable to be transition to p.o. amiodarone and will continue on IV drip for rate control and unlikely to achieve rhythm control in the setting of underlying precipitant from intra-abdominal sepsis. Patient remains on appropriate antibiotic coverage with addition of fluconazole. Complete course of 14 days. Discussed with surgery and we will plan for TPN, will place PICC line dedicated for this use. Will need to coordinate with nephrology for ongoing hemodialysis and ultrafiltration to avoid excessive fluid overload given she has renal failure with no urine output. Patient will remain in ICU if she continues to have intermittent needs for vasopressors and rapidly changing oxygen requirements throughout the day. Patient's family was updated on plan of care at bedside and remain very appreciative of all care given. Total critical care time: I personally spent 40 minutes for review of physiologic parameters, directing plan of care throughout the day, coordination of care with other subspecialists, and counseling patient and family at bedside. This is exclusive of time spent teaching housestaff or performing separate billable procedures. Patient continues to require critical care services for intra-abdominal sepsis status post perforation of gastric ulcer complicated by intraperitoneal leak with atrial fibrillation with RVR and acute renal failure requiring hemodialysis. Patient remains at high risk for further morbidity and mortality requiring close monitoring only available intensive care unit.
--- NOTE | 2024-05-21 15:11 | PD.IMPROG ---
Documentation for date of: 05/21/24 Subjective Subjective Interval history: On 3 L nasal cannula Mental status not very clear On bowel rest Exam Vital Signs Temp Pulse Resp BP Pulse Ox O2 Del Method O2 Flow Rate 97.5 F 78 18 134/67 H 98 Nasal Cannula 2 05/21/24 14:02 05/21/24 14:02 05/21/24 14:02 05/21/24 14:02 05/21/24 14:02 05/21/24 04:00 05/21/24 14:02 FiO2 35 05/21/24 14:02 Objective Labs 05/22/24 05:45 05/22/24 05:45 Labs: Laboratory Results - last 24 hr 05/20/24 05/20/24 05/20/24 16:02 18:01 21:07 WBC RBC Hgb Hct MCV MCH MCHC RDW Std Deviation Plt Count Neut % (Auto) Lymph % (Auto) [place] % (Auto) Eos % (Auto) Baso % (Auto) Neut # (Auto) Lymph # (Auto) [place] # (Auto) Eos # (Auto) Baso # (Auto) Immature Gran # (Auto) Absolute Nucleated RBC Immature Gran % Nucleated RBC % Sodium Potassium Chloride Carbon Dioxide Anion Gap BUN Creatinine Estim Creat Clear Calc eGFR BUN/Creatinine Ratio Glucose Estimated Ave Glu mg/dL Hemoglobin A1c Calculated Osmolality Calcium Corrected Calcium Phosphorus Magnesium Total Bilirubin AST ALT Alkaline Phosphatase Troponin I 0.162 H* 0.159 H* 0.155 H* Total Protein Albumin Globulin Albumin/Globulin Ratio Triglycerides Cholesterol LDL Cholesterol, Calc HDL Cholesterol Cholesterol/HDL Ratio TSH 05/21/24 04:45 WBC 23.4 H RBC 3.27 L Hgb 9.2 L Hct 28.3 L MCV 87 MCH 28.1 MCHC 32.5 RDW Std Deviation 53.0 H Plt Count 312 D Neut % (Auto) 90 H Lymph % (Auto) 4 L Gooding % (Auto) 3 Eos % (Auto) 1 Baso % (Auto) 1 Neut # (Auto) 21.2 H Lymph # (Auto) 1.0 Gooding # (Auto) 0.7 Eos # (Auto) 0.2 Baso # (Auto) 0.1 Immature Gran # (Auto) 0.30 H Absolute Nucleated RBC 0.25 H Immature Gran % 1 H Nucleated RBC % 1 H Sodium 142 Potassium 4.3 Chloride 106 Carbon Dioxide 22.9 Anion Gap 13 BUN 49 H Creatinine 4.6 H* D Estim Creat Clear Calc 10.0 L eGFR 10 L* BUN/Creatinine Ratio 11 L Glucose [address] Glu mg/dL 134 H Hemoglobin A1c 6.3 H Calculated Osmolality 295 Calcium 8.8 Corrected Calcium 9.5 Phosphorus 5.6 H Magnesium 2.5 Total Bilirubin 0.9 D AST 26 ALT 51 H Alkaline Phosphatase 92 Troponin I Total Protein 5.6 L Albumin 3.1 L D Globulin 2.5 Albumin/Globulin Ratio 1.2 Triglycerides 218 H Cholesterol 80 L LDL Cholesterol, Calc 26 HDL Cholesterol < 10 L Cholesterol/HDL Ratio 8.0 H TSH 2.09 Impressions Impression: # Perforated gastric ulcer status post exploratory laparotomy with omental patch and suturing of the ulcer # Renal failure requiring hemodialysis ABG Interpretation ABG results: 05/13/24 05/15/24 05/15/24 08:29 15:28 16:03 ABG pH 7.39 7.05 L* D 7.17 L* D ABG pCO2 31 L 63 H D 45 D ABG pO2 78 L 38 L* D 84 D ABG HCO3 19 L 18 L 16 L ABG O2 Saturation 96 59 L 96 ABG Base Excess -5 L -12 L -11 L VBG pH VBG pCO2 VBG pO2 VBG Base Excess 05/16/24 05/17/24 05/18/24 04:38 04:03 04:20 ABG pH 7.28 L D 7.38 D 7.49 H D ABG pCO2 34 D 28 L 30 L ABG pO2 96 85 66 L ABG HCO3 16 L 17 L 23 ABG O2 Saturation 98 97 94 ABG Base Excess -10 L -8 L 0 VBG pH VBG pCO2 VBG pO2 VBG Base Excess 05/19/24 05/20/24 09:05 06:05 ABG pH 7.30 L D ABG pCO2 49 H D ABG pO2 63 L ABG HCO3 24 ABG O2 Saturation 91 ABG Base Excess -3 VBG pH 7.31 L VBG pCO2 50 VBG pO2 39 VBG Base Excess -2 Assessment & Plan A&P Narrative 69 y/o female with PMH of essential hypertension, gastric ulcers, hyperlipidemia, and DM2 was admitted to the hospital on 05/13/2024 due to acute encephalopathy likely secondary to sepsis secondary to CAP. 1. NSTEMI Type II 2. A-Fib with RVR, New onset -Patient has had elevated troponins from previous admissions with most recent on 11/17/2023 of 0.097 and prior to this on 12/28/2021 was 0.065 -On this admission intial troponins 0.09, uptrended to 0.239 and downtrended. -NSTEMI type II most likley in the setting of sepsis as patient has no chest pain. -EKG on this admission showed LVH with strain pattern and sinus tachycardia which is similiar to prior EKG on 11/22/2023 -CLARY ACS score of 115 points, 7% probability of -Patient in this afternoon developed A-Fib with RVR with ST depressions in anterolateral leads which are mostly rate related ST depressions -Echo ordered to rule out post operative MS and to evaluate for any new regional wall motion abnormalities and to reevaluate bradycardia contraction Plan: -No heparin drip at this time given the severe anemia and perforated gastric ulcer -Recommend to start Amio drip and Amio 200mg P.O. BID. -No anticoagulation given perforated ulcer -Recommend to place patient on high intensity statin and aspirin if GI and general surgery are okay with starting aspirin and there are no other contraindications -Recommend no further troponins as elevated troponins most likely secondary to sepsis from type II NSTEMI. -Patient will need further ischemic evaluation which can be done when she is more stable and can be pursued as outpatient 05/18/2024: Patient continues to be mechanically ventilated and sedated Patient continues to be on pressor support Patient was in atrial fibrillation on 1217 noted on WANG [address] depressions in anterolateral leads which are mostly rate related ST depressions. Echo ordered to rule out postoperative MS and showed no regional wall motion abnormalities and EF is 55 to 60% again and see detailed echo report below. Patient now converted to normal sinus rhythm after the amiodarone drip and patient is already started on amiodarone 200 mg p.o. twice daily. Recommend to check EKG to document the normal sinus rhythm and also to check the QTc as the patient is on amiodarone. No heparin drip as patient has perforated ulcer. Discussed with GI and surgery went to start anticoagulation with heparin drip initially and then later on Eliquis 5 mg twice daily No further troponins recommended. Mild troponin elevation is mostly secondary to NSTEMI type II in the setting of supply/demand mismatch. Patient will need further ischemic evaluation but can be done as outpatient when she improves from the present medical conditions recommend to replete potassium and magnesium to keep above 4 and 2 respectively to avoid any further arrhythmias. Normal LV size and function with an estimated EF of 55 to 60%. Mild LVH. Stage I diastolic dysfunction. RV not visualized appears to have normal size and function. 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 Mild AV Sclerosis without stenosis. 3. Acute decompensated heart failure (EF 60-65%) 4.Essential Hypertension -Patient has some SOB, trace edema and initial BNP was 309 -CXR did show some vascular congestion -Echo from 04/26/2024 had the following findings: Normal LV size and function. Mild LVH. Estimated EF 60-65% Normal RV size and function. Mild to moderate mitral valve stenosis, mean gradient 8mmHg. Moderate MAC. Mild AI, MR, TR. Mild AV sclerosis without stenosis Plan: -Hold diuresis in the setting of sepsis and soft BP, but if BP stabilizes will need diuresis -Strict CACHORRO's -Fluid restrictions -Low sodium diet -Daily weights -Recommend to potassium and magnessium above 4 and 2 respectively to avoid any arrhythmias. 5. Sepsis 2/2 perforated gastric ulcer 6. Community acquired pneumonia 7.Acute Encephalopathy 8. perforated gastric ulcer 9. Acute blood loss anemia 10. GI bleed -Continue current management as per primary care team 11.DM2 12. Hyperlipidemia -Continue current management as per primary care team Management of rest of the medical conditions as per primary team and other consultants. Thank you for the consult and allowing me to participate in the care of the patient. Cardiology will continue to follow. Jalen Davis M.D. Interventional Cardiology Time Spent With Patient Time: Total time spent is greater than 50% in coordination of care (as documented) at patient's floor/unit and/or counseling patient:
[2024-05-21] MEDS: FLUCONAZOLE/NS 200 MG IVPB 100 ML 100 MG IV (15:16)
[2024-05-21] MEDS: DEXTROSE 10%-WATER 1000 ML 1,000 ML 25 ML IV (15:31)
[2024-05-21] MEDS: ALBUTEROL/IPRATROPIUM (Duoneb) RT SOL 3 ML NEBU INH (18:55)
--- NOTE | 2024-05-21 22:18 | XR_ITS ---
Examination: AP chest single view Technique one AP portable semiupright chest single view Exam date and time: May 21, 2024 10:39 PM Comparison May 20, 2024 Indications: Shortness of breath today, CVA history Findings: Mild CHF Mild enlargement cardiac contour Prominent vascular congestion with perihilar edema Left internal jugular dialysis catheter satisfactory position Orogastric tube in the stomach, the tip is below the level of the film Impression: Mild CHF
--- NOTE | 2024-05-21 22:19 | EKG_ITS ---
[facility] Test Date: 2024-05-21 Pat Name: SALEEM SIMON Department: Room: S255A Gender: Female Adolescent Coordinator: CORINNA : 1955 Requested By: Iraida Marin Order Number: [id number] Reading MD: Iraida Marin Measurements Intervals [place] Rate: 81 P: 80 VA: 192 QRS: -30 QRSD: 97 T: 124 QT: 362 QTc: 422 Interpretive Statements SINUS RHYTHM BORDERLINE LEFT AXIS DEVIATION ST DEVIATION AND MODERATE T-WAVE ABNORMALITY, CONSIDER LATERAL ISCHEMIA Compared to ECG 05/16/2024 11:22:21 Atrial fibrillation no longer present T-wave abnormality still present Possible ischemia still present /store/S0/[id number]/[id number].pdf
[2024-05-21 22:46] LABS: Base Excess 2 (-3-3); HCO3 27 mEq/L (20-26); O2 Saturation 93 % (91-98); PCO2 42 mmHg (32.0-48.0); PO2 63 mmHg (83-108); pH, Arterial 7.41 (7.35-7.45)
[2024-05-21 22:48] LABS: Allen Test Performed/OK; Inspired O2, VO2 Liters 15 L/min; Puncture Site Right Radial
--- NOTE | 2024-05-21 22:54 | XR_ITS ---
Examination: CT brain head without contrast. 2-D sagittal coronal reconstructions Date and time of exam:May 22, 2024 12:00 AM Comparison May 20, 2024 Indications: Acute encephalopathy May 20, 2024 CTDI: vol (mGy):50.90 DLP: (mGycm):1 Technique: Multiple CT axial sections of the brain have been obtained, 5 mm slice thickness. Contrast has not been administered. 2-D sagittal, coronal reconstructions have been obtained Low dose protocols were performed. One or more of the following dose reduction techniques were used; automated exposure control, adjustment of the mA and/or KV according to patient size, use of iterative reconstruction technique. Findings: No significant ventricular enlargement. Again noted left cerebellar infarct which may be acute. Old appearing bilateral basal ganglia infarcts but clinical correlation advised Intra-axial or extra-axial hemorrhage density is not seen. No mass effect or midline shift Basal cisterns are not remarkable. Fourth ventricle is midline. Cranial vault intact. Impression: Again noted left cerebellar infarct which may be acute No interval acute hemorrhage, mass effect or midline shift
[2024-05-21 23:15] LABS: D-Dimer > 3820 ng/mL (<600)
[2024-05-21 23:20] LABS: Alanine Aminotransferase 42 U/L (10-49); Albumin/Globulin Ratio 1.1 (1.2-2.2); Alkaline Phosphatase 114 U/L (46-116); Anion Gap 13 (7-16); Aspartate Amino Transferase 30 U/L (0-34); BUN/Creatinine Ratio 9 Ratio (12-20); Bilirubin,Total 0.8 mg/dL (0.3-1.2); Blood Urea Nitrogen 31 mg/dL (9-23); Calcium 9.1 mg/dL (8.3-10.6); Calcium (Corrected) 9.9 mg/dL (8.5-10.1); Carbon Dioxide 25.2 mMol/L (20.0-31.0); Chloride 104 mMol/L (98-107); Creatinine (Component) 3.4 mg/dL (0.6-1.3); Estimated Creatinine Clearance 13.6 mL/min (>60); Globulin 2.8 gm/dL (2.3-3.5); Glucose 112 mg/dL (74-106); Magnesium 2.3 mg/dL (1.6-2.6); Osmolality,Calculated 290 (275-295); Phosphorous 4.4 mg/dL (2.4-5.1); Potassium 3.8 mMol/L (3.4-5.1); Sodium 142 mMol/L (136-145); Total Protein 5.8 gm/dL (5.7-8.2); eGFR 14 See Note
[2024-05-21 23:44] LABS: Troponin I 0.105 ng/mL (0.0-0.045)
[2024-05-22] VITALS (97 sets, daily range): BP systolic 80–162; BP diastolic 52–119; PULSE 71–143; RESP 18–29; TEMP 36–36.9; O2SAT 92–99; BMI 35.7; BMI 35.9
--- NOTE | 2024-05-22 00:04 | PC.RT ---
RN geovany called RT ([email or web address]) to bedside, pt desaturated to 86% on 2L NC W no improvement on 6L NC. Oxymask placed on pt at 15L spo2 slowly increased ABG, CXR done.
[2024-05-22 01:06] LABS: Lactate (Lactic Acid) 1.2 mMol/L (0.4-2.0)
[2024-05-22] MEDS: AMIODARONE 360 MG IVPB 360 MG/200 ML BAG 16.667 MG IV ×2 (04:14→17:48)
[2024-05-22 06:13] LABS: Basophils # (Auto) 0.1 Thou/mm3 (0.0-0.2); Basophils % (Auto) 0 % (0-2.5); Eosinophils # (Auto) 0.2 Thou/mm3 (0.0-0.5); Eosinophils % (Auto) 1 % (0-10); Hematocrit 28.7 % (36.0-46.0); Hemoglobin 9.6 g/dL (12.0-16.0); Immature Granulocytes % (Auto) 1 % (0-0); Immature Granulocytes Auto 0.24 Thou/mm3 (0.00-0.00); Lymphocytes # (Auto) 1.1 Thou/mm3 (1.0-4.8); Lymphocytes % (Auto) 5 % (10-50); Mean Corpuscular HGB Conc 33.4 g/dl (31.0-37.0); Mean Corpuscular Hemoglobin 27.9 pg (25.0-35.0); Mean Corpuscular Volume 83 fL (80-100); Monocytes % (Auto) 4 % (0-12); Neutrophils # (Auto) 20.3 Thou/mm3 (1.8-7.7); Neutrophils % (Auto) 89 % (37-80); Nucleated Red Blood Cell # 0.18 Thou/mm3 (0.00-0.00); Nucleated Red Blood Cell % 1 /100 WBC (0); Platelet Count 338 Thou/mm3 (140-440); Red Blood Count 3.44 Miln/mm3 (4.00-5.20); White Blood Count 22.9 Thou/mm3 (3.6-11.0)
[2024-05-22 06:29] LABS: Alanine Aminotransferase 39 U/L (10-49); Albumin/Globulin Ratio 1.1 (1.2-2.2); Alkaline Phosphatase 110 U/L (46-116); Anion Gap 15 (7-16); Aspartate Amino Transferase 24 U/L (0-34); BUN/Creatinine Ratio 9 Ratio (12-20); Bilirubin,Total 0.8 mg/dL (0.3-1.2); Blood Urea Nitrogen 35 mg/dL (9-23); Calcium 9.2 mg/dL (8.3-10.6); Carbon Dioxide 24.3 mMol/L (20.0-31.0); Chloride 103 mMol/L (98-107); Creatinine (Component) 3.8 mg/dL (0.6-1.3); Estimated Creatinine Clearance 12.4 mL/min (>60); Globulin 2.8 gm/dL (2.3-3.5); Glucose 126 mg/dL (74-106); Magnesium 2.4 mg/dL (1.6-2.6); Osmolality,Calculated 293 (275-295); Phosphorous 4.5 mg/dL (2.4-5.1); Potassium 3.8 mMol/L (3.4-5.1); Sodium 142 mMol/L (136-145); Total Protein 5.8 gm/dL (5.7-8.2); eGFR 12 See Note
[2024-05-22 06:35] LABS: Ammonia < 10 uMol/L (11-32)
--- NOTE | 2024-05-22 07:00 | XR_ITS ---
Examination: Ultrasound-guided needle placement right basilic vein. Dual-lumen central line placement (PICC line). Fluoroscopy AP chest, portable, single view Exam date and time:May 22, 2024 1400 hours INDICATIONS: Need for intravenous TPN A timeout was completed verifying correct patient, procedure, site, positioning Informed consent provided Technique: The patient's site was prepped and draped in sterile fashion. Maximum Sterile Barrier Technique used including cap, mask, sterile gown, sterile gloves, and sterile full body drape. If ultrasound technique used: sterile gel and sterile probe covers. Hand Hygiene performed using proper scrub, soap and water, or alcohol-based hand rub. Site right portable apparatus utilized to confirm patency of the right basilic vein Utilizing ultrasonographic guidance successful 21-gauge needle puncture into the right basilic vein Ultrasound images recorded and stored. 5 cc 1% lidocaine administered for local anesthetic. Successful micropuncture with a 21-gauge needle is performed. 0.18 wire guide is then introduced into the SVC under fluoroscopic guidance. Dual-lumen catheter dilator is then introduced, followed by the catheter in the SVC and proper position under fluoroscopic guidance. Successful aspiration of blood and flushing with heparinized saline is then performed in the 2 venous limbs. The catheter sutured in place. Findings: Under fluoroscopy, the tip of the catheter is in good position in the vena cava. Portable chest x-ray, post line placement is ordered. Estimated blood loss 3 cc The patient tolerated the procedure well and was in stable and satisfactory condition at completion of the procedure Impression: Successful ultrasound-guided needle placement right basilic vein Successful placement of dual lumen central line, percutaneous Fluoroscopy 0.1 minute radiation dose 1.74 milligray 1 spot fluoroscopic chest film. AP chest completion procedure demonstrates satisfactory position central line. May use central line.
[2024-05-22] MEDS: ALBUTEROL/IPRATROPIUM (Duoneb) RT SOL 3 ML NEBU INH ×2 (08:03→22:35)
--- NOTE | 2024-05-22 08:31 | PC.NURSE ---
Addendum entered by Timur Leo RN 05/22/24 08:38: BFR TO 250 D/T CONT'D. TACHYCARDIA, WILL CONT. TO MONITOR Original Note: BP LOW, UF OFF, WILL ADMIN PRN ALBUMIN, PT RECLINED WILL CONT. TO MONITOR
[2024-05-22] MEDS: ALBUMIN HUMAN 25% IVPB 25 GM/100 ML BTL IV (08:32)
[2024-05-22] MEDS: EPOETIN ALFA-EPBX INJ 10,000 UNIT/ML VIAL (ESRD) 10000 UNIT SC (08:36)
--- NOTE | 2024-05-22 08:39 | PC.NURSE ---
BP TRENDING UP, PT REMAINS W/O DISTRESS NOTED. UF GOAL LOWERED TO 2L AND TURNED BACK ON TOLERATED, WILL CONT. TO MONITOR
[2024-05-22] MEDS: PANTOPRAZOLE INJ 40 MG VIAL IVP ×2 (08:42→20:08)
--- NOTE | 2024-05-22 08:45 | PC.NURSE ---
Report received for from Sarah SPARKS for scheduled picc line insertion in IR, patient having dialysis now, will plan on doing picc line procedure when done with dialysis
--- NOTE | 2024-05-22 08:56 | PC.NURSE ---
BP TRENDING DOWN, PT REMAINS W/O DISTRESS NOTED, BEDSIDE NURSE FIONA NOTIFIED W/ ORDER FROM ICU MD TO START PRN BP MEDS AT THIS TIME, WILL CONT. TO MONITOR
[2024-05-22] MEDS: Norepinephrine/D5W 8mg/250ml 8 MG/250 ML BAG 7.35 MG IV (08:58)
--- NOTE | 2024-05-22 09:46 | PC.NURSE ---
PT TOLERATING TX , UF GOAL INCREASED TO 2.1L TOLERATED WILL MONITOR
[2024-05-22] MEDS: AMIODARONE 150 MG IVPB 150 MG/100 ML BAG 600 MG IV (09:47)
--- NOTE | 2024-05-22 09:47 | PC.NURSE ---
Addendum entered by Timur Leo RN 05/22/24 09:48: UF GOAL TO 2.5L TOLERATED GABBY MONITOR Original Note: PT TOLERATING TX, UF GOAL INCREASED TO 2.3L TOLERATED WILL MONITOR
--- NOTE | 2024-05-22 10:42 | PC.DIETICIAN ---
Nutrition prescription (CPN) D20% AA5% at 30 ml/hr (do not advance) with 500 ml 20% lipid 3 times a week (Mon-Wed-Fri). Will consider advancing tomorrow to goal of 50 ml/hr if pt remains stable without significant electrolytes/blood glucose disturbances. At goal: 1200 ml volume, 60 g AA, 240 g dextrose, 1485 total calories, NPC 1245. GIR=2.1 / LIR=0.6
--- NOTE | 2024-05-22 10:48 | PD.NEPHPROG ---
Documentation for date of: 05/22/24 Subjective Subjective Interval history: Interval history: Mr. Castellanos is a [id number] with past medical history of prediabetes, CKD, hypertension, history of ulcers who was admitted to [facility] for sepsis secondary to pneumonia and acute metabolic encephalopathy. Patient was BIBA to the ED after being found unconscious on the floor. According to the son on admission patient's daughter found the patient at 3 AM passed out on the floor and unresponsive. Family is unaware along the patient was on the floor. 2 days ago patient started to develop abdominal pain and weakness all over her body associated with some diarrhea and shortness of breath. Patient's abdominal pain comes and goes from right side to left side of the abdomen. ED course patient was hypertensive tachycardic tachypneic and was saturating 92% on 5 L nasal cannula ED labs significant for WBCs 24.3, bicarb 19.6, glucose 259, lactic acid 2.2, BNP 304, troponin 0.09. 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, colonic diverticulosis, Cervical spine CT showed 3 mm radiolucency in C3 vertebral body Chest CTA showed mild aneurysmal dilatation ascending thoracic aorta AP dimension 4.3 cm and pulmonary artery hypertension with moderate vascular congestion Face CT shows no acute facial fracture, Lumbar spine CT shows no acute lumbar fracture severe acquired spinal stenosis L4-L5, Thoracic spine CT showed no acute fracture Brain MRI with MRA showed equally focal restricted diffusion brainstem medullary level significant stenosis of right P1 P2 segment posterior cerebral artery Postadmission, cardiology was consulted on admission because of elevated troponins, suspicion of NSTEMI type II, patient has acute decompensated heart failure per cardiology evaluation, neurology consulted because of patient's acute metabolic encephalopathy and GI was consulted for suspicion of GI bleed. Eventually on 05/15 rapid response was called for worsening chest pain, patient's map was consistently in 70s, was tachycardic tachypneic. CT angiogram showed pneumoperitoneum multiple air droplets adjacent to and within wall of stomach with suspicion of gastric perforation. General surgery was consulted for emergency surgery and patient had exploratory laparotomy with repair of perforated gastric ulcer with an omental patch. Patient was upgraded to ICU postop for further management patient currently on Levophed and vasopressor due to distributive shock, currently sedated and intubated on mechanical ventilation. Nephrology consulted due to concern of ADILSON. 05/16/24: Patient seen at bedside, patient's daughter present at bedside labs reviewed patient's creatinine 3.0, GFR 16 and BUN 60. Patient's baseline GFR more than 60, does report history of chronic kidney disease. Patient's urine output yesterday 820 mL, there is suspicion of acute kidney injury due to patient's underlying distributive shock versus hypovolemic shock, will continue to monitor patient's urine output and renal panel in a.m., plan of care discussed with patient's family at bedside they want to proceed with dialysis if needed. Will continue to monitor patient. 05/17/24: Patient seen at bedside, patient continues to remain sedated and is on pressors currently, patient's BUN 76, creatinine 3.5, GFR 14. Renal function has continued to decline, patient has minimal urine output only 320 mL in the last 24 hours, patient will be started on dialysis treatment today, will start dialysis post catheter placement. Will monitor labs in a.m., will continue to monitor patient. 05/18/24: Patient seen at bedside, continues to remain sedated and is on pressors currently, patient's hemoglobin was 6.5 in AM, plan to give 2 units of PRBC with dialysis today. Patient did receive hemodialysis yesterday for 2 hours 31 minutes. Today patient will receive another dialysis treatment, patient's urine output continues to remain low, about 200 cc in the last 24 hours, will continue to monitor renal function. 05/19/24: Patient seen at bedside, continues to was extubated yesterday, seen at bedside currently unresponsive. Patient is scheduled for hemodialysis today with goal to remove 2 L fluid, had hemodialysis yesterday and about 3.2 L fluid was removed. Patient's urine output continues to remain low, produced about 100 cc worth of urine in the last 24 hours, renal function shows a creatinine 3.8, BUN 59, EGFR 12, will monitor urine output and renal function. 05/20/24: Patient seen at bedside, was downgraded to floors yesterday, was hypotensive overnight, was upgraded to ICU, currently on pressors, agonal breathing noted, will hold dialysis today, patient did receive dialysis yesterday, had about 1.5 L fluid removed. Patient's urine output continues to remain low. Will continue to monitor patient closely. 05/20/24: Patient seen at bedside in the ICU. Saturates well on 2 L NC, blood pressure 134/80, off pressors. Tries to follow commands. On examination has extensive anasarca. Urine output 210 mL. Patient will receive dialysis today with goal to remove 2 L of fluid. Will continue to monitor patient closely. Labs showed sodium 142, potassium 4.3, BUN 49, creatinine 4.6, EGFR 10. Review of Systems Review of Systems ROS Unobtainable: unobtainable due to mental status and unobtainable due to medical condition Exam Vital Signs Temp Pulse Resp BP Pulse Ox O2 Del Method O2 Flow Rate 36.1 C 114 H 18 117/64 97 Nasal Cannula 4 05/22/24 07:56 05/22/24 10:45 05/22/24 10:30 05/22/24 10:45 05/22/24 10:30 05/22/24 04:01 05/22/24 08:05 FiO2 35 05/21/24 14:02 Narrative Exam Physical Exam General: Awake and in no acute distress. Moderately obtunded. GCS 11. HEENT: Normocephalic, atraumatic, mucous membranes moist. Heart: Regular rate and rhythm, no murmurs. Lungs: Clear to auscultation with no wheezing or crackles. Abdomen: Soft, nondistended, nontender, positive bowel sounds. ?No guarding or rebound tenderness. Neurologic: Alert and oriented x3, no gross neurological deficit, and patient able to move all 4 extremities. Extremities: Lower and upper extremities edema. Anasarca. Skin: No rash or ecchymoses. Objective Labs 05/23/24 05:39 05/23/24 05:39 Labs: Laboratory Results - last 24 hr 05/21/24 05/21/24 05/22/24 22:35 22:45 00:43 WBC RBC Hgb Hct MCV MCH MCHC RDW Std Deviation Plt Count Neut % (Auto) Lymph % (Auto) [place] % (Auto) Eos % (Auto) Baso % (Auto) Neut # (Auto) Lymph # (Auto) [place] # (Auto) Eos # (Auto) Baso # (Auto) Immature Gran # (Auto) Absolute Nucleated RBC Immature Gran % Nucleated RBC % D-Dimer > 3820 H Puncture Site Right Radial ABG pH 7.41 D ABG pCO2 42 ABG pO2 63 L ABG HCO3 27 H ABG O2 Saturation 93 ABG Base Excess 2 Oxygen Liter Flow 15 Sodium 142 Potassium 3.8 D Chloride 104 Carbon Dioxide 25.2 Anion Gap 13 BUN 31 H Creatinine 3.4 H D Estim Creat Clear Calc 13.6 L eGFR 14 L* BUN/Creatinine Ratio 9 L Glucose 112 H Calculated Osmolality 290 Lactic Acid 1.2 Calcium 9.1 Corrected Calcium 9.9 Phosphorus 4.4 Magnesium 2.3 Total Bilirubin 0.8 AST 30 ALT 42 Alkaline Phosphatase 114 D Ammonia Troponin I 0.105 H* Total Protein 5.8 Albumin 3.0 L Globulin 2.8 Albumin/Globulin Ratio 1.1 L 05/22/24 05:45 WBC 22.9 H RBC 3.44 L Hgb 9.6 L Hct 28.7 L MCV 83 MCH 27.9 MCHC 33.4 RDW Std Deviation 51.0 H Plt Count 338 Neut % (Auto) 89 H Lymph % (Auto) 5 L [place] % (Auto) 4 Eos % (Auto) 1 Baso % (Auto) 0 Neut # (Auto) 20.3 H Lymph # (Auto) 1.1 [place] # (Auto) 1.0 H Eos # (Auto) 0.2 Baso # (Auto) 0.1 Immature Gran # (Auto) 0.24 H Absolute Nucleated RBC 0.18 H Immature Gran % 1 H Nucleated RBC % 1 H D-Dimer Puncture Site ABG pH ABG pCO2 ABG pO2 ABG HCO3 ABG O2 Saturation ABG Base Excess Oxygen Liter Flow Sodium 142 Potassium 3.8 Chloride 103 Carbon Dioxide 24.3 Anion Gap 15 BUN 35 H Creatinine 3.8 H Estim Creat Clear Calc 12.4 L eGFR 12 L* BUN/Creatinine Ratio 9 L Glucose 126 H Calculated Osmolality 293 Lactic Acid Calcium 9.2 Corrected Calcium 10.0 Phosphorus 4.5 Magnesium 2.4 Total Bilirubin 0.8 AST 24 ALT 39 Alkaline Phosphatase 110 Ammonia < 10 L Troponin I Total Protein 5.8 Albumin 3.0 L Globulin 2.8 Albumin/Globulin Ratio 1.1 L ABG Interpretation ABG results: 05/13/24 05/15/24 05/15/24 08:29 15:28 16:03 ABG pH 7.39 7.05 L* D 7.17 L* D ABG pCO2 31 L 63 H D 45 D ABG pO2 78 L 38 L* D 84 D ABG HCO3 19 L 18 L 16 L ABG O2 Saturation 96 59 L 96 ABG Base Excess -5 L -12 L -11 L VBG pH VBG pCO2 VBG pO2 VBG Base Excess 05/16/24 05/17/24 05/18/24 04:38 04:03 04:20 ABG pH 7.28 L D 7.38 D 7.49 H D ABG pCO2 34 D 28 L 30 L ABG pO2 96 85 66 L ABG HCO3 16 L 17 L 23 ABG O2 Saturation 98 97 94 ABG Base Excess -10 L -8 L 0 VBG pH VBG pCO2 VBG pO2 VBG Base Excess 05/19/24 05/20/24 05/21/24 09:05 06:05 22:35 ABG pH 7.30 L D 7.41 D ABG pCO2 49 H D 42 ABG pO2 63 L 63 L ABG HCO3 24 27 H ABG O2 Saturation 91 93 ABG Base Excess -3 2 VBG pH 7.31 L VBG pCO2 50 VBG pO2 39 VBG Base Excess -2 Assessment & Plan Additional Assessment & Plan Additional Plan: Mr. Castellanos is a [id number] with past medical history of prediabetes, CKD, hypertension, history of ulcers who was admitted to [facility] for sepsis secondary to pneumonia and acute metabolic encephalopathy. Patient is currently sedated intubated in ICU status post exploratory laparotomy with repair of perforated gastric ulcer with an omental patch. Nephrology consulted for acute kidney injury. #Acute kidney injury #Acute Tubular Necrosis 2/2 shock #Anasarca Patient currently seems to be in ATN probably ischemic from fluctuations in blood pressure and underlying shock- started her on dialysis.. Patient currently seen on dialysis. Tolerating dialysis without any problems. Hemodialysis for 3 hours, 2K, ultrafiltration 2-3 L, Epogen 6000, no heparin ordered. Plan of care discussed with the dialysis nurse. Please see dialysis flowsheet for further details. Patient was started on TPN with significant fluid overload-will do sequential ultrafiltration in a.m. -Renally dose medications -Avoid nephrotoxic agents -Monitor urine output, strict I&O's -Follow renal panel in a.m. Plan discussed with ICU team//Dr. Murguia. #Metabolic acidosis, resolved #Lactic Acidosis #Acute Encephalopathy #Acute ischemic stroke #Distributive shock #Acute decompensated HF #Elevated Troponin #Hyperlipidemia #Primary Hypertension #Acute Hypoxic Respiratory failure #Pneumoperitoneum #Peritonitis secondary to perforated gastric ulcer #Acute Upper GI bleed #Diabetes Mellitus type II #Acute anemia Management as per ICU team. Quality - progress note Quality Measures Quality Measures: VTE prophylaxis Reason for Continued Stay Reason for Continued Stay: further monitoring
--- NOTE | 2024-05-22 11:01 | PC.NURSE ---
bp trending down, bedside nurse notified. Pt remains w/o distress notied will cont. to monitor
--- NOTE | 2024-05-22 11:25 | PCS.ST ---
pt receiving dialysis tx. TEXTILE BAG SEWER will return later today for swallow eval. Per RN., pt is following commands now.
[2024-05-22] MEDS: HEPARIN SOD INJ 1000 UNIT/ML VIAL 10 ML 2500 UNIT INDWELLCAT (11:46)
[2024-05-22] MEDS: PIPER/TAZO 3.375 GM 50 ML IV ×2 (12:14→20:09)
--- NOTE | 2024-05-22 13:37 | PCS.ST ---
pt transferred for picc line procedure. IT ACCOUNT MANAGER will return for swallow eval
[2024-05-22] MEDS: LIDOCAINE INJ PF 1% 30 ML VIAL 4 ML INFL (14:27)
[2024-05-22] MEDS: HEPARIN SOD LOCK SYR 100 UNIT/ML 500 UNIT STFIELD (14:27)
--- NOTE | 2024-05-22 14:52 | PD.RESPRO ---
Documentation for date of: 05/22/24 Subjective Subjective Interval history: 05/18: Overnight patient hemoglobin dropped below 7 and received 2 units of PRBC. Patient is seen and examined at bedside patient continues to have 0 to 10 mL/h urinary output. Patient also had a black tarry bowel movement. Patient underwent HD fluid removal only and removed 2.1 L. Patient is also extubated today. She is doing better, breathing comfortably but complains of abdominal pain which is expected as she is status post abdominal surgery. ABGs are stable. 05/19: no acute overnight events. Pt continues to complain of abdominal pain and minimal urinary output pt. has another episode of black smeared bowel movement but Hgb is stable therefore will continue to monitor daily CBC. Pt is very sensitive to Dilaudid and morphine and causes her to have a decreased respiratory drive with respirations around 9 and 10. Will have to resort to another type of pain management possibly either [place] or IV Tylenol. Will try 0.25 Dilaudid. Patient underwent HD fluid removal and was able to tolerate removing only 1.5 L and patient became hypotensive and Levophed drip was started for a few hours and DC'd the Levophed at 2 PM. 05/21: No acute overnight events patient is saturating on 3 L of oxygen via nasal cannula. patient is unable to follow commands she is able to track the examiners voice. Patient underwent HD fluid removal and removed 2 L of fluid. Patient is more alert when family is around. Patient is placed on intermittent suctioning and stopped tube feedings due to bowel rest will start TPN tomorrow although patient is fluid overloaded and will have to undergo HD fluid removal tomorrow again. Will order IR to place a PICC line specifically for TPN as well as amiodarone drip since patient cannot take p.o. amiodarone due to bowel rest. Still unable to assess neurological function as patient's mentation seems withdrawn. 05/22: Overnight patient was saturating in the low 80s requiring 15 L of oxygen via oxyme mask and then patient improved and continued the rest of the night with 4 L of oxygen via nasal cannula. Patient is seen and examined this morning patient is alert awake and follows commands patient still continues to have weakness in lower extremities. patient still has no urine production and 1 big bowel movement with that melena. Patient received dialysis this morning removing 2.5 L of fluid and during dialysis patient was in A-fib with RVR and amiodarone bolus of 150 was given along with continued amiodarone drip. Patient will be continued to have bowel rest for at least a week therefore nothing through the gut should be given including meds. Patient complained of abdominal pain and IV Tylenol was given which she states it helped. Patient also got a PICC line today for TPN of 1200. BALAJI tube had 50 mL of purulent output through the night and none during the day. Patient's edema is significantly improving. Exam Vital Signs Temp Pulse Resp BP Pulse Ox O2 Del Method O2 Flow Rate 98.5 F 127 H 24 H 106/75 96 Nasal Cannula 4 05/22/24 12:00 05/22/24 14:30 05/22/24 14:30 05/22/24 14:30 05/22/24 14:30 05/22/24 14:30 05/22/24 14:30 FiO2 35 05/21/24 14:02 Narrative Exam GENERAL: Patient is awake, alert but is unable to follow commands NEURO: unable to assess because patient is unable to follow commands HEENT: Atraumatic, Normocephalic. mucous membranes moist, left IJ HEART: Normal Heart Sounds LUNGS: Clear to auscultation with no wheezing or crackles. ABDOMEN: surgical scar is clean with BALAJI drain in place with minimal output SKIN: No Rash or ecchymoses EXTREMITIES: 2+ pitting edema in upper and lower extremities, pedal pulses palpated Objective Labs 06/02/24 04:44 06/02/24 04:44 Labs: Laboratory Results - last 24 hr 05/21/24 05/21/24 05/22/24 22:35 22:45 00:43 WBC RBC Hgb Hct MCV MCH MCHC RDW Std Deviation Plt Count Neut % (Auto) Lymph % (Auto) [place] % (Auto) Eos % (Auto) Baso % (Auto) Neut # (Auto) Lymph # (Auto) [place] # (Auto) Eos # (Auto) Baso # (Auto) Immature Gran # (Auto) Absolute Nucleated RBC Immature Gran % Nucleated RBC % D-Dimer > 3820 H Puncture Site Right Radial ABG pH 7.41 D ABG pCO2 42 ABG pO2 63 L ABG HCO3 27 H ABG O2 Saturation 93 ABG Base Excess 2 Oxygen Liter Flow 15 Sodium 142 Potassium 3.8 D Chloride 104 Carbon Dioxide 25.2 Anion Gap 13 BUN 31 H Creatinine 3.4 H D Estim Creat Clear Calc 13.6 L eGFR 14 L* BUN/Creatinine Ratio 9 L Glucose 112 H Calculated Osmolality 290 Lactic Acid 1.2 Calcium 9.1 Corrected Calcium 9.9 Phosphorus 4.4 Magnesium 2.3 Total Bilirubin 0.8 AST 30 ALT 42 Alkaline Phosphatase 114 D Ammonia Troponin I 0.105 H* Total Protein 5.8 Albumin 3.0 L Globulin 2.8 Albumin/Globulin Ratio 1.1 L 05/22/24 05:45 WBC 22.9 H RBC 3.44 L Hgb 9.6 L Hct 28.7 L MCV 83 MCH 27.9 MCHC 33.4 RDW Std Deviation 51.0 H Plt Count 338 Neut % (Auto) 89 H Lymph % (Auto) 5 L [place] % (Auto) 4 Eos % (Auto) 1 Baso % (Auto) 0 Neut # (Auto) 20.3 H Lymph # (Auto) 1.1 [place] # (Auto) 1.0 H Eos # (Auto) 0.2 Baso # (Auto) 0.1 Immature Gran # (Auto) 0.24 H Absolute Nucleated RBC 0.18 H Immature Gran % 1 H Nucleated RBC % 1 H D-Dimer Puncture Site ABG pH ABG pCO2 ABG pO2 ABG HCO3 ABG O2 Saturation ABG Base Excess Oxygen Liter Flow Sodium 142 Potassium 3.8 Chloride 103 Carbon Dioxide 24.3 Anion Gap 15 BUN 35 H Creatinine 3.8 H Estim Creat Clear Calc 12.4 L eGFR 12 L* BUN/Creatinine Ratio 9 L Glucose 126 H Calculated Osmolality 293 Lactic Acid Calcium 9.2 Corrected Calcium 10.0 Phosphorus 4.5 Magnesium 2.4 Total Bilirubin 0.8 AST 24 ALT 39 Alkaline Phosphatase 110 Ammonia < 10 L Troponin I Total Protein 5.8 Albumin 3.0 L Globulin 2.8 Albumin/Globulin Ratio 1.1 L ABG Interpretation ABG results: 05/13/24 05/15/24 05/15/24 08:29 15:28 16:03 ABG pH 7.39 7.05 L* D 7.17 L* D ABG pCO2 31 L 63 H D 45 D ABG pO2 78 L 38 L* D 84 D ABG HCO3 19 L 18 L 16 L ABG O2 Saturation 96 59 L 96 ABG Base Excess -5 L -12 L -11 L VBG pH VBG pCO2 VBG pO2 VBG Base Excess 05/16/24 05/17/24 05/18/24 04:38 04:03 04:20 ABG pH 7.28 L D 7.38 D 7.49 H D ABG pCO2 34 D 28 L 30 L ABG pO2 96 85 66 L ABG HCO3 16 L 17 L 23 ABG O2 Saturation 98 97 94 ABG Base Excess -10 L -8 L 0 VBG pH VBG pCO2 VBG pO2 VBG Base Excess 05/19/24 05/20/24 05/21/24 09:05 06:05 22:35 ABG pH 7.30 L D 7.41 D ABG pCO2 49 H D 42 ABG pO2 63 L 63 L ABG HCO3 24 27 H ABG O2 Saturation 91 93 ABG Base Excess -3 2 VBG pH 7.31 L VBG pCO2 50 VBG pO2 39 VBG Base Excess -2 Quality Measures Quality Measures VTE prophylaxis Advance care planning discussed with:: child Assessment & Plan Assessment Current Active Medications: Generic Name Dose Route Start Last Admin Trade Name Freq PRN Reason Stop Dose Admin Albuterol/Ipratropium 3 ml 05/20/24 09:23 05/22/24 08:03 Albuterol/Ipratropium (Duoneb) Rt Jimena 3 Ml Nebu INH 06/19/24 12:59 3 ml Q6HRRT PRN Administration SOB or Wheeze Heparin Sodium (Porcine) 5,000 unit 05/16/24 14:00 05/21/24 21:31 Heparin Sod Inj 5000 Unit/Ml Vial SC 05/30/24 13:59 5,000 unit Q8HR ANGELICA Administration Heparin Sodium (Porcine) 2,500 unit 05/17/24 15:52 05/22/24 11:46 Heparin Sod Inj 1000 Unit/Ml Vial 10 Ml INDWELLCAT 05/31/24 15:51 2,500 unit PRN PRN Administration DIALYSIS Hydromorphone HCl 0.25 mg 05/19/24 14:38 05/19/24 22:11 Hydromorphone Inj 2 Mg/Ml Vial IVP 05/24/24 14:37 0.25 mg Q4HR PRN Administration PAIN SCALE 4-6 (Moderate Hydromorphone HCl 0.5 mg 05/19/24 14:38 05/20/24 22:59 Hydromorphone Inj 2 Mg/Ml Vial IVP 05/24/24 14:37 0.5 mg Q6H PRN Administration PAIN SCALE 7-10 (Severe Fluconazole 100 mls @ 100 mls/hr 05/21/24 14:00 05/21/24 15:16 Diflucan/Ns Ivpb IV 05/28/24 13:59 100 mls/hr QDAY@1400 ANGELICA Administration Norepinephrine/Dextrose 8 mg in 250 mls @ 7.35 mls/hr 05/20/24 15:40 05/22/24 13:24 Levophed In D5w 8mg/250ml IV 06/19/24 06:55 0 mcg/kg/min .Q24H PRN 0 mls/hr PER PROTOCOL Titration Protocol 0.05 MCG/KG/MIN Albumin Human 25 gm in 100 mls @ 100 mls/min 05/21/24 10:08 05/22/24 08:32 Albuminar-25 Ivpb IV 100 mls/min PRN PRN Administration DIALYSIS Piperacillin/Tazobactam/Dextrose 50 mls @ 12.5 mls/hr 05/21/24 21:00 05/22/24 12:14 Zosyn IV 05/27/24 13:59 12.5 mls/hr Q12HR ANGELICA Administration Amiodarone HCl/Dextrose 360 mg in 200 mls @ 16.667 mls/hr 05/21/24 16:15 05/22/24 04:14 Nexterone Ivpb IV 05/22/24 16:14 16.667 mls/hr .Q12H ANGELICA Administration Fat Emulsion-[place] Oil/Soybean Oil 500 mls @ 32 mls/hr 05/22/24 18:00 Clinopid 20% Iv IV 06/21/24 17:59 MoWeFr ANGELICA Thiamine HCl 100 mg/ Amino 1,001 mls @ 30 mls/hr 05/22/24 13:00 Acids IV 05/23/24 22:21 X1 ONE Ondansetron HCl 4 mg 05/13/24 11:58 05/14/24 12:31 Ondansetron Inj 2 Mg/Ml Inj 2 Ml IV 06/12/24 11:57 4 mg Q6H PRN Administration NAUSEA OR VOMITING Protocol Pantoprazole Sodium 40 mg 05/15/24 21:00 12/23/24 08:42 Pantoprazole Inj 40 Mg Vial IVP 06/14/24 20:59 40 mg BID ANGELICA Administration Pharmacy Consult 1 each 05/16/24 10:27 Pharmacy Renal Dose Adjustment 1 Ea XX 06/15/24 10:26 PRN PRN CONSULT Plan Ms. Castellanos is a 69-year-old female with past medical history significant for hypertension, diabetes, CKD stage III, and history of gastric ulcers who presented to the ED on 05/13/2024 after she was found unconscious on the floor. Per chart reviewing prior to this unconsciousness patient was having abdominal pain and generalized weakness with diarrhea and shortness of breath for 2 days. Patient was admitted to the hospital for treatment and management of sepsis secondary to pneumonia. Patient was given 1 L normal saline and started on ceftriaxone and azithromycin. patient underwent ex lap surgery for perforated gastric ulcer. Patient remained intubated postop and is upgraded to the ICU. Neuro: # Acute encephalopathy-improving -Likely multifactorial secondary to sepsis versus metabolic versus neurologic versus medication -Patient is awake and alert and follows some commands. Patient is able to respond to yes or no questions verbally Cardiovasc: #shock - resolved DDx: more likely cardiogenic 2/2 afib with RVR, complicated by s/p laparotomy state -S/P aggressive fluid resuscitation, continue to monitor and will give additional fluids as needed -On levophed and vasopression to maintain MAP >65, wean as tolerated. -Status post 1 unit PRBC given 05/15/2024 for hemoglobin below 7 -Continue iv antibiotics and additional fluids as needed and treat underlying cause -Treat underlying cause # New onset A-fib with RVR -Likely secondary to shock in the setting of abdominal surgery -EKG findings consistent with A-fib -Was on Amiodarone 200 twice daily for new onset Afib, but as she was in AFib with RVR, started on amio drip -Cardiology consulted #Acute exacerbation of HFpEF #Hx. of CHF -echo 05/16 -estimated EF of 55 to 60%, stage I diastolic dysfunction noted, Moderate to severe posterior MAC -Pt presented with SOB and 2+ edema in LE -elevated BNP from 304 --> 1110 -HD in the setting of anuria -holding guideline directed medical therapy due to shock, will resume when able -HD dialysis removing 2 L fluid done today #Hyperlipidemia -Plan: Hold home atorvastatin as patient is npo. Will reinstate as tolerated #Primary Hypertension -Plan: Hold home amlodipine in setting of shock Pulm: #Acute Hypoxic Respiratory failure likely multifactorial -2/2 to pulmonary edema in the setting of volume overload 2/2 ATN due to shock leading to oligoanuria versus bibasilar pneumonia -Further complicated by bilateral lung atelectasis in the setting of recent abdominal surgery and sedatives use -Patient was intubated and on mechanical ventilation (05/15) and extubated 05/18/2024, currently saturating 95-97 % on 2-3 L NC GI: #Pneumoperitoneum #Peritonitis secondary to perforated gastric ulcer Patient found to have tender abdomen, rigidity in the epigastrium, chest x-ray showed elevation of hemidiaphragm, CT abdomen showed pneumoperitoneum, concern for perforated viscus, general surgeon Dr. Santana was consulted for emergency laparotomy and possible repair of perforated gastric ulcer. Repeat CT abd/pel on 05/20 revealed Pneumoperitoneum, orogastric tube in the stomach, mild free fluid adjacent to the stomach and anterior to the pancreas. ?Patient was given IV fluid boluses, IV albumin 1 PRBC was ordered ?Antibiotic coverage was broadened to Zosyn to cover for anaerobic and enteric pathogens. - Plan: s/p Exploratory laparotomy & repair of perforated gastric ulcer - 05/15. -Surgery following and on pain management with Dilaudid (hold if RR <15) -GI surgeon Dr. Hernandez was made aware of the situation, and she recommended stopping tube feed and starting slow intermittent suctioning via NG tube. -She was also started on Diflucan 400 Mg IV daily for fungal prophylaxis. #Acute Upper GI bleed - stable - most likely secondary to perforated gastric ulcer -Patient had a single episode of black tarry stool today-likely setting of recent abdominal surgery - Plan: Continue iv Protonix. -Hold chemical anticoagulation -Will monitor for alarm signs of active bleeding with melena or hematochezia #GI ppx - pantoprazole #Diet -hold all tube feedings due to bowel rest. Will start TPN 1200 cc/Qday (started 05/22/24) Renal: #Acute tubular necrosis #Anuria - 2/2 septic shock -Patient has 0 urine production - Baseline Cr appears to be 0.7 - Plan: Patient underwent HD fluid removal and removed 2.1 L on 05/18 and 1.5 L on 05/19, 2L fluid removed 05/21, 2.5 L fluid removed on 05/22 - Guajardo catheter in place and monitor urine output closely. - Renally dose medications and avoid nephrotoxic agents -repeat labs in am -Nephrology following Endo: #hypoglycemia, resolved #Diabetes Mellitus type II - A1C 6.3 % , BG 78 - Hold home glipizide and januvia - Plan: Continue to monitor blood sugars -Blood glucose is above 180 we will start the patient on medium insulin sliding scale Heme/Onc: #Acute blood loss anemia 2/2 perforated ulcer- S/P surgical repair -Hgb stable 9.6 Hct 28.7 ?patient received 2 units of PRBC 05/18 due to acutely drop in Hgb below 7. No signs of active bleeding. -Plan: Continue to monitor daily CBC. transfuse for hemoglobin less than 7. #Leucocytosi-downtrending Likely 2/2 bacterial peritonitis -On IV zosyn -On IV Diflucan 400mg IV daily for fungal prophylaxis ID -On zosyn for bacterial peritonitis (Skin:) #Pressure Ulcer Prevention Disposition: ICU for AHRF & cardiogenic shock DVT Prophylaxis: Hold chemical anticoagulation in setting of recent abdominal surgery, will ask Dr. Silva when to resume GI Prophylaxis: Pantoprozol-40 IV Diet: Nothing p.o. due to bowel rest Lines: central line left IJ for dialysis, right PICC line Code status: Full Assessment and plan discussed with my attending physician Dr. Shantal Rivera (PGY-1)- Internal medicine resident Attending Provider Attestation/Addendum Patient seen and examined with above resident, Karol Rivera MD. I agree with the findings, assessment, and plan of care as documented except for any differences below. Patient with recurrent hypoxia overnight, may have component of OHS/obstructive sleep apnea but likely related to ongoing acute pathology from intraperitoneal sepsis. She continues to have A-fib with RVR requiring additional bolus of amiodarone continue drip today after fluid removal during dialysis. Intermittent requirements for vasopressor support have been coming and going in the consider transition to phenylephrine alternatively to Levophed as Levophed is likely playing a role in her tachyarrhythmia. Patient given IV Tylenol for pain control remained afebrile. Given concern for leak, the GI tract remains in disuse. Will plan for TPN via new PICC line today. BALAJI drain continues to have purulent output but volume is reduced. Patient continues to be significantly volume overloaded with plan for large-volume TPN infusion every 24 hours, we have discussed this with dietitian as well as nephrology to ensure both avoidance of refeeding syndrome as well as worsening volume overload in the setting of her CHF and acute renal failure. Patient remains on appropriate antibiotic coverage with addition of fluconazole. Patient and family updated at bedside. Total critical care time: I personally spent 25 minutes for review of physiologic parameters, directing plan of care throughout the day, coordination of care with other specialties, and counseling patient/family at bedside. This is exclusive of time spent teaching housestaff or performing any separate billable procedures. Patient continues to require critical care services for acute hypoxic respiratory failure and septic versus cardiogenic shock with atrial fibrillation with rapid ventricular response patient remains at risk for increased morbidity and mortality warranting ongoing management and care only available in the ICU setting.
[2024-05-22] MEDS: AMINO ACID IV (15:05)
[2024-05-22] MEDS: THIAMINE IV (15:05)
[2024-05-22] MEDS: [UNRECOGNIZED DRUG - OTHER] IV (15:05)
--- NOTE | 2024-05-22 15:08 | PD.IMPROG ---
Documentation for date of: 05/22/24 Subjective Subjective Interval history: Patient seen in the ICU this morning. No overnight events. Telemtry monitor showed patient was sinus rhythm overnight. Patient more alert and awake today. Recommend to continue Amio drip as well as amiodarone 200 mg BID. Continue vasopressor support as necessary. Replete potassium and magnesium to keep above 4 and 2 respectively to avoid any further arrhythmias. Head CT done yesterday showed a 16mm infarct in left cerebellar hemisphere which could be acute Given patient has A-fib, will need to be on anticoagulation but will need the okay from both neurology and general surgery to start Eliquis. Nephrology following for hemodialysis. Echo on 05/16/2024 showed the following findings: Normal LV size and function with an estimated EF of 55 to 60%. Mild LVH. Stage I diastolic dysfunction. RV not visualized appears to have normal size and function. 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 Mild AV Sclerosis without stenosis. Exam Vital Signs Temp Pulse Resp BP Pulse Ox O2 Del Method O2 Flow Rate 98.5 F 129 H 26 H 117/81 96 Nasal Cannula 4 05/22/24 12:00 05/22/24 14:35 05/22/24 14:35 05/22/24 14:35 05/22/24 14:35 05/22/24 14:35 05/22/24 14:35 FiO2 35 05/21/24 14:02 Narrative Exam General: more alert and awake today Eyes: Pupils reactive to light, Ears: No visible ear discharge Nose: No visible nasal discharge Mouth/Throat: Dry mucous membranes, no redness, no lesions. Neck: Short neck , non-tender, no cervical lymphadenopathy. Lungs: Clear FERNANDO Cardio: Normal S1/S2, regular rhythm, systolic murmurs, no JVD Abdomen: Soft, non-tender, no palpable masses, peristalsis present, no guarding or rebound. Surgical scar covered with clean dressing. Extremities: Symmetrical, no significant deformities, trace peripheral edema , non-tender, peripheral pulses presents. Skin: No rashes, no lesions, warm to touch. Neuro: Unable to respond to questions. Objective Labs 05/23/24 05:39 05/23/24 05:39 Labs: Laboratory Results - last 24 hr 05/21/24 05/21/24 05/22/24 22:35 22:45 00:43 WBC RBC Hgb Hct MCV MCH MCHC RDW Std Deviation Plt Count Neut % (Auto) Lymph % (Auto) [place] % (Auto) Eos % (Auto) Baso % (Auto) Neut # (Auto) Lymph # (Auto) [place] # (Auto) Eos # (Auto) Baso # (Auto) Immature Gran # (Auto) Absolute Nucleated RBC Immature Gran % Nucleated RBC % D-Dimer > 3820 H Puncture Site Right Radial ABG pH 7.41 D ABG pCO2 42 ABG pO2 63 L ABG HCO3 27 H ABG O2 Saturation 93 ABG Base Excess 2 Oxygen Liter Flow 15 Sodium 142 Potassium 3.8 D Chloride 104 Carbon Dioxide 25.2 Anion Gap 13 BUN 31 H Creatinine 3.4 H D Estim Creat Clear Calc 13.6 L eGFR 14 L* BUN/Creatinine Ratio 9 L Glucose 112 H Calculated Osmolality 290 Lactic Acid 1.2 Calcium 9.1 Corrected Calcium 9.9 Phosphorus 4.4 Magnesium 2.3 Total Bilirubin 0.8 AST 30 ALT 42 Alkaline Phosphatase 114 D Ammonia Troponin I 0.105 H* Total Protein 5.8 Albumin 3.0 L Globulin 2.8 Albumin/Globulin Ratio 1.1 L 05/22/24 05:45 WBC 22.9 H RBC 3.44 L Hgb 9.6 L Hct 28.7 L MCV 83 MCH 27.9 MCHC 33.4 RDW Std Deviation 51.0 H Plt Count 338 Neut % (Auto) 89 H Lymph % (Auto) 5 L [place] % (Auto) 4 Eos % (Auto) 1 Baso % (Auto) 0 Neut # (Auto) 20.3 H Lymph # (Auto) 1.1 [place] # (Auto) 1.0 H Eos # (Auto) 0.2 Baso # (Auto) 0.1 Immature Gran # (Auto) 0.24 H Absolute Nucleated RBC 0.18 H Immature Gran % 1 H Nucleated RBC % 1 H D-Dimer Puncture Site ABG pH ABG pCO2 ABG pO2 ABG HCO3 ABG O2 Saturation ABG Base Excess Oxygen Liter Flow Sodium 142 Potassium 3.8 Chloride 103 Carbon Dioxide 24.3 Anion Gap 15 BUN 35 H Creatinine 3.8 H Estim Creat Clear Calc 12.4 L eGFR 12 L* BUN/Creatinine Ratio 9 L Glucose 126 H Calculated Osmolality 293 Lactic Acid Calcium 9.2 Corrected Calcium 10.0 Phosphorus 4.5 Magnesium 2.4 Total Bilirubin 0.8 AST 24 ALT 39 Alkaline Phosphatase 110 Ammonia < 10 L Troponin I Total Protein 5.8 Albumin 3.0 L Globulin 2.8 Albumin/Globulin Ratio 1.1 L ABG Interpretation ABG results: 05/13/24 05/15/24 05/15/24 08:29 15:28 16:03 ABG pH 7.39 7.05 L* D 7.17 L* D ABG pCO2 31 L 63 H D 45 D ABG pO2 78 L 38 L* D 84 D ABG HCO3 19 L 18 L 16 L ABG O2 Saturation 96 59 L 96 ABG Base Excess -5 L -12 L -11 L VBG pH VBG pCO2 VBG pO2 VBG Base Excess 05/16/24 05/17/24 05/18/24 04:38 04:03 04:20 ABG pH 7.28 L D 7.38 D 7.49 H D ABG pCO2 34 D 28 L 30 L ABG pO2 96 85 66 L ABG HCO3 16 L 17 L 23 ABG O2 Saturation 98 97 94 ABG Base Excess -10 L -8 L 0 VBG pH VBG pCO2 VBG pO2 VBG Base Excess 05/19/24 05/20/24 05/21/24 09:05 06:05 22:35 ABG pH 7.30 L D 7.41 D ABG pCO2 49 H D 42 ABG pO2 63 L 63 L ABG HCO3 24 27 H ABG O2 Saturation 91 93 ABG Base Excess -3 2 VBG pH 7.31 L VBG pCO2 50 VBG pO2 39 VBG Base Excess -2 Assessment & Plan A&P Narrative 69 y/o female with PMH of essential hypertension, gastric ulcers, hyperlipidemia, and DM2 was admitted to the hospital on 05/13/2024 due to acute encephalopathy likely secondary to sepsis secondary to CAP. 1. NSTEMI Type II 2. A-Fib with RVR, New onset -Patient has had elevated troponins from previous admissions with most recent on 11/17/2023 of 0.097 and prior to this on 12/28/2021 was 0.065 -On this admission intial troponins 0.09, uptrended to 0.239 and downtrended. -NSTEMI type II most likley in the setting of sepsis as patient has no chest pain. -EKG on this admission showed LVH with strain pattern and sinus tachycardia which is similiar to prior EKG on 11/22/2023 -CLARY ACS score of 115 points, 7% probability of -Patient in this afternoon developed A-Fib with RVR with ST depressions in anterolateral leads which are mostly rate related ST depressions -Echo ordered to rule out post operative [place] and to evaluate for any new regional wall motion abnormalities and to reevaluate bradycardia contraction Plan: -No heparin drip at this time given the severe anemia and perforated gastric ulcer -Recommend to start Amio drip and Amio 200mg P.O. BID. -No anticoagulation given perforated ulcer -Recommend to place patient on high intensity statin and aspirin if GI and general surgery are okay with starting aspirin and there are no other contraindications -Recommend no further troponins as elevated troponins most likely secondary to sepsis from type II NSTEMI. -Patient will need further ischemic evaluation which can be done when she is more stable and can be pursued as outpatient 05/22/2024 Telemtry monitor showed patient was sinus rhythm overnight. Patient more alert and awake today. Recommend to continue Amio drip as well as amiodarone 200 mg BID. Continue vasopressor support as necessary. Replete potassium and magnesium to keep above 4 and 2 respectively to avoid any further arrhythmias. Head CT done yesterday showed a 16mm infarct in left cerebellar hemisphere which could be acute Given patient has A-fib, will need to be on anticoagulation but will need the okay from both neurology and general surgery to start Eliquis. Nephrology following for hemodialysis. Normal LV size and function with an estimated EF of 55 to 60%. Mild LVH. Stage I diastolic dysfunction. RV not visualized appears to have normal size and function. 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 Mild AV Sclerosis without stenosis. 3. Acute decompensated heart failure (EF 60-65%) 4.Essential Hypertension -Patient has some SOB, trace edema and initial BNP was 309 -CXR did show some vascular congestion -Echo from 04/26/2024 had the following findings: Normal LV size and function. Mild LVH. Estimated EF 60-65% Normal RV size and function. Mild to moderate mitral valve stenosis, mean gradient 8mmHg. Moderate MAC. Mild AI, MR, TR. Mild AV sclerosis without stenosis Plan: -Hold diuresis in the setting of sepsis and soft BP, but if BP stabilizes will need diuresis -Strict CACHORRO's -Fluid restrictions -Low sodium diet -Daily weights -Recommend to potassium and magnessium above 4 and 2 respectively to avoid any arrhythmias. 5. Sepsis 2/2 perforated gastric ulcer 6. Community acquired pneumonia 7.Acute Encephalopathy 8. perforated gastric ulcer 9. Acute blood loss anemia 10. GI bleed 11.DM2 12. Hyperlipidemia Management of rest of the medical conditions as per primary team and other consultants. Thank you for the consult and allowing me to participate in the care of the patient. Cardiology will continue to follow. Jalen Davis M.D. Interventional Cardiology Time Spent With Patient Time: Total time spent is greater than 50% in coordination of care (as documented) at patient's floor/unit and/or counseling patient:
[2024-05-22] MEDS: FLUCONAZOLE/NS 200 MG IVPB 100 ML 100 MG IV (15:12)
--- NOTE | 2024-05-22 15:12 | PC.NURSE ---
1440 patient had picc line insertion to right arm, dermabond and dressing applied, report given to Sarah SPARKS,patient transferred to ICU room 255. May use picc line per
--- NOTE | 2024-05-22 15:43 | PC.SS ---
Update: PICC line has been obtained. Patient participated with dialysis today. Dr. August architecture internship.
[2024-05-22] MEDS: ACETAMINOPHEN IVPB 1,000 MG/100 ML VIAL 250 MG IV ×2 (17:36→22:20)
[2024-05-22] MEDS: FAT EMUL/OLIVE/SOY/PHOS 20% IV 500 ML 32 ML IV (17:55)
--- NOTE | 2024-05-22 19:30 | ESPR_ITS ---
Documentation for date of: 05/22/24 Subjective Subjective Interval history: Patient evaluated On 3 L nasal cannula Internal medicine team thinking about a PICC line for IV amiodarone as well as TPN as patient is on bowel rest Exam Vital Signs Temp Pulse Resp BP Pulse Ox O2 Del Method O2 Flow Rate 97.6 F 109 H 29 H 118/82 96 Nasal Cannula 3 05/22/24 16:01 05/22/24 19:00 05/22/24 19:00 05/22/24 19:00 05/22/24 19:00 05/22/24 14:35 05/22/24 18:30 FiO2 35 05/21/24 14:02 Objective Labs 05/22/24 05:45 05/22/24 05:45 Labs: Laboratory Results - last 24 hr 05/21/24 05/21/24 05/22/24 22:35 22:45 00:43 WBC RBC Hgb Hct MCV MCH MCHC RDW Std Deviation Plt Count Neut % (Auto) Lymph % (Auto) [place] % (Auto) Eos % (Auto) Baso % (Auto) Neut # (Auto) Lymph # (Auto) [place] # (Auto) Eos # (Auto) Baso # (Auto) Immature Gran # (Auto) Absolute Nucleated RBC Immature Gran % Nucleated RBC % D-Dimer > 3820 H Puncture Site Right Radial ABG pH 7.41 D ABG pCO2 42 ABG pO2 63 L ABG HCO3 27 H ABG O2 Saturation 93 ABG Base Excess 2 Oxygen Liter Flow 15 Sodium 142 Potassium 3.8 D Chloride 104 Carbon Dioxide 25.2 Anion Gap 13 BUN 31 H Creatinine 3.4 H D Estim Creat Clear Calc 13.6 L eGFR 14 L* BUN/Creatinine Ratio 9 L Glucose 112 H Calculated Osmolality 290 Lactic Acid 1.2 Calcium 9.1 Corrected Calcium 9.9 Phosphorus 4.4 Magnesium 2.3 Total Bilirubin 0.8 AST 30 ALT 42 Alkaline Phosphatase 114 D Ammonia Troponin I 0.105 H* Total Protein 5.8 Albumin 3.0 L Globulin 2.8 Albumin/Globulin Ratio 1.1 L 05/22/24 05:45 WBC 22.9 H RBC 3.44 L Hgb 9.6 L Hct 28.7 L MCV 83 MCH 27.9 MCHC 33.4 RDW Std Deviation 51.0 H Plt Count 338 Neut % (Auto) 89 H Lymph % (Auto) 5 L [place] % (Auto) 4 Eos % (Auto) 1 Baso % (Auto) 0 Neut # (Auto) 20.3 H Lymph # (Auto) 1.1 [place] # (Auto) 1.0 H Eos # (Auto) 0.2 Baso # (Auto) 0.1 Immature Gran # (Auto) 0.24 H Absolute Nucleated RBC 0.18 H Immature Gran % 1 H Nucleated RBC % 1 H D-Dimer Puncture Site ABG pH ABG pCO2 ABG pO2 ABG HCO3 ABG O2 Saturation ABG Base Excess Oxygen Liter Flow Sodium 142 Potassium 3.8 Chloride 103 Carbon Dioxide 24.3 Anion Gap 15 BUN 35 H Creatinine 3.8 H Estim Creat Clear Calc 12.4 L eGFR 12 L* BUN/Creatinine Ratio 9 L Glucose 126 H Calculated Osmolality 293 Lactic Acid Calcium 9.2 Corrected Calcium 10.0 Phosphorus 4.5 Magnesium 2.4 Total Bilirubin 0.8 AST 24 ALT 39 Alkaline Phosphatase 110 Ammonia < 10 L Troponin I Total Protein 5.8 Albumin 3.0 L Globulin 2.8 Albumin/Globulin Ratio 1.1 L Impressions Impression: # Pneumoperitoneum due to perforated gastric ulcer requiring surgical exploration and omental patch and suturing of the ulcer # Renal failure on hemodialysis ABG Interpretation ABG results: 05/13/24 05/15/24 05/15/24 08:29 15:28 16:03 ABG pH 7.39 7.05 L* D 7.17 L* D ABG pCO2 31 L 63 H D 45 D ABG pO2 78 L 38 L* D 84 D ABG HCO3 19 L 18 L 16 L ABG O2 Saturation 96 59 L 96 ABG Base Excess -5 L -12 L -11 L VBG pH VBG pCO2 VBG pO2 VBG Base Excess 05/16/24 05/17/24 05/18/24 04:38 04:03 04:20 ABG pH 7.28 L D 7.38 D 7.49 H D ABG pCO2 34 D 28 L 30 L ABG pO2 96 85 66 L ABG HCO3 16 L 17 L 23 ABG O2 Saturation 98 97 94 ABG Base Excess -10 L -8 L 0 VBG pH VBG pCO2 VBG pO2 VBG Base Excess 05/19/24 05/20/24 05/21/24 09:05 06:05 22:35 ABG pH 7.30 L D 7.41 D ABG pCO2 49 H D 42 ABG pO2 63 L 63 L ABG HCO3 24 27 H ABG O2 Saturation 91 93 ABG Base Excess -3 2 VBG pH 7.31 L VBG pCO2 50 VBG pO2 39 VBG Base Excess -2 Assessment & Plan A&P Narrative 69 y/o female with PMH of essential hypertension, gastric ulcers, hyperlipidemia, and DM2 was admitted to the hospital on 05/13/2024 due to acute encephalopathy likely secondary to sepsis secondary to CAP. 1. NSTEMI Type II 2. A-Fib with RVR, New onset -Patient has had elevated troponins from previous admissions with most recent on 11/17/2023 of 0.097 and prior to this on 12/28/2021 was 0.065 -On this admission intial troponins 0.09, uptrended to 0.239 and downtrended. -NSTEMI type II most likley in the setting of sepsis as patient has no chest pain. -EKG on this admission showed LVH with strain pattern and sinus tachycardia which is similiar to prior EKG on 11/22/2023 -CLARY ACS score of 115 points, 7% probability of -Patient in this afternoon developed A-Fib with RVR with ST depressions in anterolateral leads which are mostly rate related ST depressions -Echo ordered to rule out post operative [place] and to evaluate for any new regional wall motion abnormalities and to reevaluate bradycardia contraction Plan: -No heparin drip at this time given the severe anemia and perforated gastric ulcer -Recommend to start Amio drip and Amio 200mg P.O. BID. -No anticoagulation given perforated ulcer -Recommend to place patient on high intensity statin and aspirin if GI and general surgery are okay with starting aspirin and there are no other contraindications -Recommend no further troponins as elevated troponins most likely secondary to sepsis from type II NSTEMI. -Patient will need further ischemic evaluation which can be done when she is more stable and can be pursued as outpatient 05/18/2024: Patient continues to be mechanically ventilated and sedated Patient continues to be on pressor support Patient was in atrial fibrillation on 1217 noted on WANG [address] depressions in anterolateral leads which are mostly rate related ST depressions. Echo ordered to rule out postoperative [place] and showed no regional wall motion abnormalities and EF is 55 to 60% again and see detailed echo report below. Patient now converted to normal sinus rhythm after the amiodarone drip and patient is already started on amiodarone 200 mg p.o. twice daily. Recommend to check EKG to document the normal sinus rhythm and also to check the QTc as the patient is on amiodarone. No heparin drip as patient has perforated ulcer. Discussed with GI and surgery went to start anticoagulation with heparin drip initially and then later on Eliquis 5 mg twice daily No further troponins recommended. Mild troponin elevation is mostly secondary to NSTEMI type II in the setting of supply/demand mismatch. Patient will need further ischemic evaluation but can be done as outpatient when she improves from the present medical conditions recommend to replete potassium and magnesium to keep above 4 and 2 respectively to avoid any further arrhythmias. Normal LV size and function with an estimated EF of 55 to 60%. Mild LVH. Stage I diastolic dysfunction. RV not visualized appears to have normal size and function. 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 Mild AV Sclerosis without stenosis. 3. Acute decompensated heart failure (EF 60-65%) 4.Essential Hypertension -Patient has some SOB, trace edema and initial BNP was 309 -CXR did show some vascular congestion -Echo from 04/26/2024 had the following findings: Normal LV size and function. Mild LVH. Estimated EF 60-65% Normal RV size and function. Mild to moderate mitral valve stenosis, mean gradient 8mmHg. Moderate MAC. Mild AI, MR, TR. Mild AV sclerosis without stenosis Plan: -Hold diuresis in the setting of sepsis and soft BP, but if BP stabilizes will need diuresis -Strict CACHORRO's -Fluid restrictions -Low sodium diet -Daily weights -Recommend to potassium and magnessium above 4 and 2 respectively to avoid any arrhythmias. 5. Sepsis 2/2 perforated gastric ulcer 6. Community acquired pneumonia 7.Acute Encephalopathy 8. perforated gastric ulcer 9. Acute blood loss anemia 10. GI bleed 11.DM2 12. Hyperlipidemia Management of rest of the medical conditions as per primary team and other consultants. Thank you for the consult and allowing me to participate in the care of the patient. Cardiology will continue to follow. Jalen Davis M.D. Interventional Cardiology Time Spent With Patient Time: Total time spent is greater than 50% in coordination of care (as documented) at patient's floor/unit and/or counseling patient:
[2024-05-22] MEDS: HEPARIN SOD INJ 5000 UNIT/ML VIAL SC (22:08)
--- NOTE | 2024-05-22 23:21 | ESPR_ITS ---
Documentation for date of: 05/22/24 Subjective Subjective Interval history: Patient was seen in ICU today with her family at the bedside. She is off of pressors, making significant improvement in her mental status and response to commands. Exam - Neurology Vital Signs Temp Pulse Resp BP Pulse Ox O2 Del Method O2 Flow Rate 96.8 F 106 H 19 85/56 L 97 Nasal Cannula 3 05/22/24 20:00 05/22/24 23:01 05/22/24 23:01 05/22/24 23:01 05/22/24 23:01 05/22/24 14:35 05/22/24 22:36 FiO2 35 05/21/24 14:02 Narrative Exam GENERAL APPEARANCE: Well-developed, obese built female in some distress secondary to position/hypoxemia HEENT: Normocephalic, atraumatic, extraocular movements intact. Pupils: Equal reacting to light NECK: Supple, no JVD or bruits. CARDIOVASULAR: Heart: S1, S2 heard, irregular without S3-S4 or murmur no rubs or gallops. LUNGS/CHEST: Clear to auscultation bilaterally. No rails, rhonchi, or wheezing. Normal inspection. ABDOMEN: Soft, nontender, with normal bowel sounds. No pulsatile masses. No rebound, rigidity, or guarding. Normal inspection and palpation. EXTREMITIES: Significant edema in both upper and lower extremities. SKIN: Warm and dry without rashes. Normal inspection. MUSCULOSKELETAL: No cervical, thoracic, lumbar or midline bony tenderness. Normal inspection. NEURO: Alert, awake, follows commands consistently. Brainstem function: Intact. Moves all 4 extremities but significantly weak all over, no signs of meningeal irritation noted. PSYCHIATRIC: Limited Objective Labs 05/23/24 05:39 05/22/24 05:45 Labs: Laboratory Results - last 24 hr 05/21/24 05/22/24 05/22/24 22:45 00:43 05:45 WBC 22.9 H RBC 3.44 L Hgb 9.6 L Hct 28.7 L MCV 83 MCH 27.9 MCHC 33.4 RDW Std Deviation 51.0 H Plt Count 338 Neut % (Auto) 89 H Lymph % (Auto) 5 L [place] % (Auto) 4 Eos % (Auto) 1 Baso % (Auto) 0 Neut # (Auto) 20.3 H Lymph # (Auto) 1.1 [place] # (Auto) 1.0 H Eos # (Auto) 0.2 Baso # (Auto) 0.1 Immature Gran # (Auto) 0.24 H Absolute Nucleated RBC 0.18 H Immature Gran % 1 H Nucleated RBC % 1 H Sodium 142 142 Potassium 3.8 D 3.8 Chloride 104 103 Carbon Dioxide 25.2 24.3 Anion Gap 13 15 BUN 31 H 35 H Creatinine 3.4 H D 3.8 H Estim Creat Clear Calc 13.6 L 12.4 L eGFR 14 L* 12 L* BUN/Creatinine Ratio 9 L 9 L Glucose 112 H 126 H Calculated Osmolality 290 293 Lactic Acid 1.2 Calcium 9.1 9.2 Corrected Calcium 9.9 10.0 Phosphorus 4.4 4.5 Magnesium 2.3 2.4 Total Bilirubin 0.8 0.8 AST 30 24 ALT 42 39 Alkaline Phosphatase 114 D 110 Ammonia < 10 L Troponin I 0.105 H* Total Protein 5.8 5.8 Albumin 3.0 L 3.0 L Globulin 2.8 2.8 Albumin/Globulin Ratio 1.1 L 1.1 L ABG Interpretation ABG results: 05/13/24 05/15/24 05/15/24 08:29 15:28 16:03 ABG pH 7.39 7.05 L* D 7.17 L* D ABG pCO2 31 L 63 H D 45 D ABG pO2 78 L 38 L* D 84 D ABG HCO3 19 L 18 L 16 L ABG O2 Saturation 96 59 L 96 ABG Base Excess -5 L -12 L -11 L VBG pH VBG pCO2 VBG pO2 VBG Base Excess 05/16/24 05/17/24 05/18/24 04:38 04:03 04:20 ABG pH 7.28 L D 7.38 D 7.49 H D ABG pCO2 34 D 28 L 30 L ABG pO2 96 85 66 L ABG HCO3 16 L 17 L 23 ABG O2 Saturation 98 97 94 ABG Base Excess -10 L -8 L 0 VBG pH VBG pCO2 VBG pO2 VBG Base Excess 05/19/24 05/20/24 05/21/24 09:05 06:05 22:35 ABG pH 7.30 L D 7.41 D ABG pCO2 49 H D 42 ABG pO2 63 L 63 L ABG HCO3 24 27 H ABG O2 Saturation 91 93 ABG Base Excess -3 2 VBG pH 7.31 L VBG pCO2 50 VBG pO2 39 VBG Base Excess -2 Assessment & Plan Additional Assessment & Plan Additional Plan: 69-year-old female with past medical history of CKD stage III, prediabetes, hypertension who was found unconscious in her room. As well as diarrhea and shortness of breath. Admitted for sepsis secondary to pneumonia and acute metabolic encephalopathy #Acute metabolic encephalopathy- currently in ICU being closely monitored. #Generalized weakness -Patient was found to be nonresponsive at home -Intitial Head CT was negative -Patient failed bedside swallow eval -Brain MRI with MRA shows significant stenoses in posterior cerebral artery, no acute infarction noted -Will continue with the current management as per primary team, will hold off on doing EEG as there is significant improvement in mental status. Continue with the passive range of motion exercises prevent contracture, attempt physical therapy as she is more awake
[2024-05-23] VITALS (113 sets, daily range): BP systolic 76–157; BP diastolic 36–107; PULSE 87–131; RESP 17–51; TEMP 36–36.7; O2SAT 91–100
[2024-05-23] MEDS: LORazepam 2 MG/ML VIAL 0.5 MG IVP ×2 (03:01→22:23)
[2024-05-23] MEDS: HEPARIN SOD INJ 5000 UNIT/ML VIAL SC (05:49)
[2024-05-23] MEDS: ACETAMINOPHEN IVPB 1,000 MG/100 ML VIAL 250 MG IV ×2 (05:49→10:46)
[2024-05-23 06:14] LABS: Basophils # (Auto) 0.1 Thou/mm3 (0.0-0.2); Basophils % (Auto) 0 % (0-2.5); Eosinophils # (Auto) 0.2 Thou/mm3 (0.0-0.5); Eosinophils % (Auto) 1 % (0-10); Hematocrit 29.9 % (36.0-46.0); Hemoglobin 10.4 g/dL (12.0-16.0); Immature Granulocytes % (Auto) 2 % (0-0); Immature Granulocytes Auto 0.28 Thou/mm3 (0.00-0.00); Lymphocytes # (Auto) 0.9 Thou/mm3 (1.0-4.8); Lymphocytes % (Auto) 6 % (10-50); Mean Corpuscular HGB Conc 34.8 g/dl (31.0-37.0); Mean Corpuscular Hemoglobin 28.7 pg (25.0-35.0); Mean Corpuscular Volume 82 fL (80-100); Monocytes # (Auto) 0.8 Thou/mm3 (0.0-0.8); Monocytes % (Auto) 5 % (0-12); Neutrophils # (Auto) 14.4 Thou/mm3 (1.8-7.7); Neutrophils % (Auto) 87 % (37-80); Nucleated Red Blood Cell # 0.27 Thou/mm3 (0.00-0.00); Nucleated Red Blood Cell % 2 /100 WBC (0); Platelet Count 400 Thou/mm3 (140-440); RDW Standard Deviation 51.8 fL (36.4-46.3); Red Blood Count 3.63 Miln/mm3 (4.00-5.20); White Blood Count 16.6 Thou/mm3 (3.6-11.0)
[2024-05-23 06:50] LABS: Alanine Aminotransferase 30 U/L (10-49); Albumin, Serum 3.5 gm/dL (3.4-4.8); Albumin/Globulin Ratio 1.2 (1.2-2.2); Alkaline Phosphatase 113 U/L (46-116); Anion Gap 16 (7-16); Aspartate Amino Transferase 20 U/L (0-34); BUN/Creatinine Ratio 10 Ratio (12-20); Bilirubin,Total 0.7 mg/dL (0.3-1.2); Blood Urea Nitrogen 45 mg/dL (9-23); Calcium 9.1 mg/dL (8.3-10.6); Calcium (Corrected) 9.5 mg/dL (8.5-10.1); Chloride 97 mMol/L (98-107); Creatinine (Component) 4.7 mg/dL (0.6-1.3); Estimated Creatinine Clearance 10.3 mL/min (>60); Globulin 2.9 gm/dL (2.3-3.5); Glucose 232 mg/dL (74-106); Magnesium 2.3 mg/dL (1.6-2.6); Osmolality,Calculated 290 (275-295); Phosphorous 3.8 mg/dL (2.4-5.1); Potassium 3.1 mMol/L (3.4-5.1); Sodium 136 mMol/L (136-145); Total Protein 6.4 gm/dL (5.7-8.2); eGFR 10 See Note
[2024-05-23] MEDS: AMIODARONE 360 MG IVPB 360 MG/200 ML BAG 16.667 MG IV (07:00)
--- NOTE | 2024-05-23 08:00 | ESPR_ITS ---
Documentation for date of: 05/23/24 Subjective Subjective Interval history: Interval history: Mr. Castellanos is a [id number] with past medical history of prediabetes, CKD, hypertension, history of ulcers who was admitted to [facility] (Formerly [facility]) for sepsis secondary to pneumonia and acute metabolic encephalopathy. Patient was BIBA to the ED after being found unconscious on the floor. According to the son on admission patient's daughter found the patient at 3 AM passed out on the floor and unresponsive. Family is unaware along the patient was on the floor. 2 days ago patient started to develop abdominal pain and weakness all over her body associated with some diarrhea and shortness of breath. Patient's abdominal pain comes and goes from right side to left side of the abdomen. ED course patient was hypertensive tachycardic tachypneic and was saturating 92% on 5 L nasal cannula ED labs significant for WBCs 24.3, bicarb 19.6, glucose 259, lactic acid 2.2, BNP 304, troponin 0.09. 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, colonic diverticulosis, Cervical spine CT showed 3 mm radiolucency in C3 vertebral body Chest CTA showed mild aneurysmal dilatation ascending thoracic aorta AP dimension 4.3 cm and pulmonary artery hypertension with moderate vascular congestion Face CT shows no acute facial fracture, Lumbar spine CT shows no acute lumbar fracture severe acquired spinal stenosis L4-L5, Thoracic spine CT showed no acute fracture Brain MRI with MRA showed equally focal restricted diffusion brainstem medullary level significant stenosis of right P1 P2 segment posterior cerebral artery Postadmission, cardiology was consulted on admission because of elevated troponins, suspicion of NSTEMI type II, patient has acute decompensated heart failure per cardiology evaluation, neurology consulted because of patient's acute metabolic encephalopathy and GI was consulted for suspicion of GI bleed. Eventually on 05/15 rapid response was called for worsening chest pain, patient's map was consistently in 70s, was tachycardic tachypneic. CT angiogram showed pneumoperitoneum multiple air droplets adjacent to and within wall of stomach with suspicion of gastric perforation. General surgery was consulted for emergency surgery and patient had exploratory laparotomy with repair of perforated gastric ulcer with an omental patch. Patient was upgraded to ICU postop for further management patient currently on Levophed and vasopressor due to distributive shock, currently sedated and intubated on mechanical ventilation. Nephrology consulted due to concern of ADILSON. 05/16/24: Patient seen at bedside, patient's daughter present at bedside labs reviewed patient's creatinine 3.0, GFR 16 and BUN 60. Patient's baseline GFR more than 60, does report history of chronic kidney disease. Patient's urine output yesterday 820 mL, there is suspicion of acute kidney injury due to patient's underlying distributive shock versus hypovolemic shock, will continue to monitor patient's urine output and renal panel in a.m., plan of care discussed with patient's family at bedside they want to proceed with dialysis if needed. Will continue to monitor patient. 05/20/24: Patient seen at bedside, was downgraded to floors yesterday, was hypotensive overnight, was upgraded to ICU, currently on pressors, agonal breathing noted, will hold dialysis today, patient did receive dialysis yesterday, had about 1.5 L fluid removed. Patient's urine output continues to remain low. Will continue to monitor patient closely. 05/22/24: Patient seen at bedside in the ICU. Saturates well on 2 L NC, blood pressure 134/80, off pressors. Tries to follow commands. On examination has extensive anasarca. Urine output 210 mL. Patient will receive dialysis today with goal to remove 2 L of fluid. Will continue to monitor patient closely. Labs showed sodium 142, potassium 4.3, BUN 49, creatinine 4.6, EGFR 10. 05/23/2024 patient currently seen in ICU. On dialysis. More alert and awake. Family at bedside. Urine output still very minimal. Currently on TPN. Spoke to Dr. Murguia. Ultrafiltration 2 L in progress. Review of Systems Review of Systems Narrative Review of Systems: Limited due to her mental status although more alert and awake today Exam Vital Signs Temp Pulse Resp BP Pulse Ox O2 Del Method O2 Flow Rate 36.0 C 101 H 18 102/63 99 Nasal Cannula 2 05/23/24 07:34 05/23/24 07:34 05/23/24 07:34 05/23/24 07:34 05/23/24 07:34 05/22/24 14:35 05/23/24 07:34 FiO2 35 05/21/24 14:02 Narrative Exam Physical Exam General: Awake and in no acute distress. Currently on dialysis HEENT: Normocephalic, atraumatic, mucous membranes moist. Heart: Regular rate and rhythm, no murmurs. Lungs: Clear to auscultation with no wheezing or crackles. Abdomen: Soft, nondistended, nontender, positive bowel sounds. ?No guarding or rebound tenderness. drain ++ Neurologic: Alert and oriented x3, no gross neurological deficit, and patient able to move all 4 extremities. Extremities: Lower and upper extremities edema. Anasarca- better Objective Labs 05/24/24 02:54 05/23/24 05:39 Labs: Laboratory Results - last 24 hr 05/23/24 05:39 WBC 16.6 H D RBC 3.63 L Hgb 10.4 L Hct 29.9 L MCV 82 MCH 28.7 MCHC 34.8 RDW Std Deviation 51.8 H Plt Count 400 D Neut % (Auto) 87 H Lymph % (Auto) 6 L [place] % (Auto) 5 Eos % (Auto) 1 Baso % (Auto) 0 Neut # (Auto) 14.4 H Lymph # (Auto) 0.9 L [place] # (Auto) 0.8 Eos # (Auto) 0.2 Baso # (Auto) 0.1 Immature Gran # (Auto) 0.28 H Absolute Nucleated RBC 0.27 H Immature Gran % 2 H Nucleated RBC % 2 H Sodium 136 Potassium 3.1 L D Chloride 97 L Carbon Dioxide 23.0 Anion Gap 16 BUN 45 H Creatinine 4.7 H* D Estim Creat Clear Calc 10.3 L eGFR 10 L* BUN/Creatinine Ratio 10 L Glucose 232 H D Calculated Osmolality 290 Calcium 9.1 Corrected Calcium 9.5 Phosphorus 3.8 Magnesium 2.3 Total Bilirubin 0.7 AST 20 ALT 30 Alkaline Phosphatase 113 Total Protein 6.4 Albumin 3.5 D Globulin 2.9 Albumin/Globulin Ratio 1.2 ABG Interpretation ABG results: 05/13/24 05/15/24 05/15/24 08:29 15:28 16:03 ABG pH 7.39 7.05 L* D 7.17 L* D ABG pCO2 31 L 63 H D 45 D ABG pO2 78 L 38 L* D 84 D ABG HCO3 19 L 18 L 16 L ABG O2 Saturation 96 59 L 96 ABG Base Excess -5 L -12 L -11 L VBG pH VBG pCO2 VBG pO2 VBG Base Excess 05/16/24 05/17/24 05/18/24 04:38 04:03 04:20 ABG pH 7.28 L D 7.38 D 7.49 H D ABG pCO2 34 D 28 L 30 L ABG pO2 96 85 66 L ABG HCO3 16 L 17 L 23 ABG O2 Saturation 98 97 94 ABG Base Excess -10 L -8 L 0 VBG pH VBG pCO2 VBG pO2 VBG Base Excess 05/19/24 05/20/24 05/21/24 09:05 06:05 22:35 ABG pH 7.30 L D 7.41 D ABG pCO2 49 H D 42 ABG pO2 63 L 63 L ABG HCO3 24 27 H ABG O2 Saturation 91 93 ABG Base Excess -3 2 VBG pH 7.31 L VBG pCO2 50 VBG pO2 39 VBG Base Excess -2 Assessment & Plan Additional Assessment & Plan Additional Plan: Mr. Castellanos is a [id number] with past medical history of prediabetes, CKD, hypertension, history of ulcers who was admitted to [facility] (Former[facility]) for sepsis secondary to pneumonia and acute metabolic encephalopathy. Patient is currently sedated intubated in ICU status post exploratory laparotomy with repair of perforated gastric ulcer with an omental patch. Nephrology consulted for acute kidney injury. #Acute kidney injury #Acute Tubular Necrosis 2/2 shock #Anasarca Patient currently seems to be in ATN probably ischemic from fluctuations in blood pressure and underlying shock- started her on dialysis.. Patient currently seen on dialysis. Tolerating dialysis without any problems. Hemodialysis for 3 hours, 2K, ultrafiltration 2-3 L, Epogen 6000, no heparin ordered. Plan of care discussed with the dialysis nurse. Please see dialysis flowsheet for further details. Patient was started on TPN with significant fluid overload-next dialysis scheduled for . -Renally dose medications -Avoid nephrotoxic agents -Monitor urine output, strict I&O's -Follow renal panel in a.m. Plan discussed with ICU team//Dr. Murguia. #Metabolic acidosis, resolved #Lactic Acidosis #Acute Encephalopathy #Acute ischemic stroke #Distributive shock #Acute decompensated HF #Elevated Troponin #Hyperlipidemia #Primary Hypertension #Acute Hypoxic Respiratory failure #Pneumoperitoneum #Peritonitis secondary to perforated gastric ulcer #Acute Upper GI bleed #Diabetes Mellitus type II #Acute anemia Management as per ICU team.
[2024-05-23] MEDS: Norepinephrine/D5W 8mg/250ml 8 MG/250 ML BAG 7.35 MG IV (08:10)
--- NOTE | 2024-05-23 08:38 | PC.NURSE ---
Addendum entered by Anne Wray RN 05/23/24 08:41: O2 sat dropped to 87, oxymask put on pt and O2 increased to 15 L min/mask, Sat at 95%. Original Note: Dr August wanted to do regular HD on pt., so pt now on regular HD.
--- NOTE | 2024-05-23 08:50 | PC.NURSE ---
BP dropped, albumin 25% given IVP. Goal decreased to 2 L.
[2024-05-23] MEDS: ALBUMIN HUMAN 25% IVPB 25 GM/100 ML BTL IV (08:52)
--- NOTE | 2024-05-23 09:10 | PD.IMPROG ---
Documentation for date of: 05/23/24 Subjective Subjective Interval history: Patient seen and examined at the bedside today. No major overnight events She continues to be short of breath and is on oxygen via Ventimask. Nephrology on board and continuing dialysis and removing additional 2.5 L of fluid today. Speech therapy also following the patient to evaluate her swallowing Telemtry monitor showed patient was sinus rhythm overnight. Patient more alert and awake today. Recommend to continue Amio drip as well as amiodarone 200 mg BID. Continue vasopressor support as necessary. Replete potassium and magnesium to keep above 4 and 2 respectively to avoid any further arrhythmias. Head CT done yesterday showed a 16mm infarct in left cerebellar hemisphere which could be acute Given patient has A-fib, will need to be on anticoagulation but will need the okay from both neurology and general surgery to start Eliquis. Exam Vital Signs Temp Pulse Resp BP Pulse Ox O2 Del Method O2 Flow Rate 96.8 F 95 18 91/52 L 99 Nasal Cannula 2 05/23/24 07:34 05/23/24 09:00 05/23/24 07:34 05/23/24 09:00 05/23/24 07:34 05/22/24 14:35 05/23/24 07:34 FiO2 35 05/21/24 14:02 Narrative Exam General: more alert and awake today Eyes: Pupils reactive to light, Ears: No visible ear discharge Nose: No visible nasal discharge Mouth/Throat: Dry mucous membranes, no redness, no lesions. Neck: Short neck , non-tender, no cervical lymphadenopathy. Lungs: Clear FERNANDO Cardio: Normal S1/S2, regular rhythm, systolic murmurs, no JVD Abdomen: Soft, non-tender, no palpable masses, peristalsis present, no guarding or rebound. Surgical scar covered with clean dressing. Extremities: Symmetrical, no significant deformities, trace peripheral edema , non-tender, peripheral pulses presents. Skin: No rashes, no lesions, warm to touch. Neuro: Unable to respond to questions. Objective Labs 05/23/24 05:39 05/23/24 05:39 Labs: Laboratory Results - last 24 hr 05/23/24 05:39 WBC 16.6 H D RBC 3.63 L Hgb 10.4 L Hct 29.9 L MCV 82 MCH 28.7 MCHC 34.8 RDW Std Deviation 51.8 H Plt Count 400 D Neut % (Auto) 87 H Lymph % (Auto) 6 L [place] % (Auto) 5 Eos % (Auto) 1 Baso % (Auto) 0 Neut # (Auto) 14.4 H Lymph # (Auto) 0.9 L [place] # (Auto) 0.8 Eos # (Auto) 0.2 Baso # (Auto) 0.1 Immature Gran # (Auto) 0.28 H Absolute Nucleated RBC 0.27 H Immature Gran % 2 H Nucleated RBC % 2 H Sodium 136 Potassium 3.1 L D Chloride 97 L Carbon Dioxide 23.0 Anion Gap 16 BUN 45 H Creatinine 4.7 H* D Estim Creat Clear Calc 10.3 L eGFR 10 L* BUN/Creatinine Ratio 10 L Glucose 232 H D Calculated Osmolality 290 Calcium 9.1 Corrected Calcium 9.5 Phosphorus 3.8 Magnesium 2.3 Total Bilirubin 0.7 AST 20 ALT 30 Alkaline Phosphatase 113 Total Protein 6.4 Albumin 3.5 D Globulin 2.9 Albumin/Globulin Ratio 1.2 ABG Interpretation ABG results: 05/13/24 05/15/24 05/15/24 08:29 15:28 16:03 ABG pH 7.39 7.05 L* D 7.17 L* D ABG pCO2 31 L 63 H D 45 D ABG pO2 78 L 38 L* D 84 D ABG HCO3 19 L 18 L 16 L ABG O2 Saturation 96 59 L 96 ABG Base Excess -5 L -12 L -11 L VBG pH VBG pCO2 VBG pO2 VBG Base Excess 05/16/24 05/17/24 05/18/24 04:38 04:03 04:20 ABG pH 7.28 L D 7.38 D 7.49 H D ABG pCO2 34 D 28 L 30 L ABG pO2 96 85 66 L ABG HCO3 16 L 17 L 23 ABG O2 Saturation 98 97 94 ABG Base Excess -10 L -8 L 0 VBG pH VBG pCO2 VBG pO2 VBG Base Excess 05/19/24 05/20/24 05/21/24 09:05 06:05 22:35 ABG pH 7.30 L D 7.41 D ABG pCO2 49 H D 42 ABG pO2 63 L 63 L ABG HCO3 24 27 H ABG O2 Saturation 91 93 ABG Base Excess -3 2 VBG pH 7.31 L VBG pCO2 50 VBG pO2 39 VBG Base Excess -2 Assessment & Plan A&P Narrative 69 y/o female with PMH of essential hypertension, gastric ulcers, hyperlipidemia, and DM2 was admitted to the hospital on 05/13/2024 due to acute encephalopathy likely secondary to sepsis secondary to CAP. 1. NSTEMI Type II 2. A-Fib with RVR, New onset -Patient has had elevated troponins from previous admissions with most recent on 11/17/2023 of 0.097 and prior to this on 12/28/2021 was 0.065 -On this admission intial troponins 0.09, uptrended to 0.239 and downtrended. -NSTEMI type II most likley in the setting of sepsis as patient has no chest pain. -EKG on this admission showed LVH with strain pattern and sinus tachycardia which is similiar to prior EKG on 11/22/2023 -CLARY ACS score of 115 points, 7% probability of -Patient in this afternoon developed A-Fib with RVR with ST depressions in anterolateral leads which are mostly rate related ST depressions -Echo ordered to rule out post operative CT and to evaluate for any new regional wall motion abnormalities and to reevaluate bradycardia contraction Plan: -No heparin drip at this time given the severe anemia and perforated gastric ulcer -Recommend to start Amio drip and Amio 200mg P.O. BID. -No anticoagulation given perforated ulcer -Recommend to place patient on high intensity statin and aspirin if GI and general surgery are okay with starting aspirin and there are no other contraindications -Recommend no further troponins as elevated troponins most likely secondary to sepsis from type II NSTEMI. -Patient will need further ischemic evaluation which can be done when she is more stable and can be pursued as outpatient 05/22/2024 Telemtry monitor showed patient was sinus rhythm overnight. Patient more alert and awake today. Recommend to continue Amio drip as well as amiodarone 200 mg BID. Continue vasopressor support as necessary. Replete potassium and magnesium to keep above 4 and 2 respectively to avoid any further arrhythmias. Head CT done yesterday showed a 16mm infarct in left cerebellar hemisphere which could be acute Given patient has A-fib, will need to be on anticoagulation but will need the okay from both neurology and general surgery to start Eliquis. Nephrology following for hemodialysis. Normal LV size and function with an estimated EF of 55 to 60%. Mild LVH. Stage I diastolic dysfunction. RV not visualized appears to have normal size and function. 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 Mild AV Sclerosis without stenosis. 3. Acute decompensated heart failure (EF 60-65%) 4.Essential Hypertension -Patient has some SOB, trace edema and initial BNP was 309 -CXR did show some vascular congestion -Echo from 04/26/2024 had the following findings: Normal LV size and function. Mild LVH. Estimated EF 60-65% Normal RV size and function. Mild to moderate mitral valve stenosis, mean gradient 8mmHg. Moderate MAC. Mild AI, MR, TR. Mild AV sclerosis without stenosis Plan: -Hold diuresis in the setting of sepsis and soft BP, but if BP stabilizes will need diuresis -Strict CACHORRO's -Fluid restrictions -Low sodium diet -Daily weights -Recommend to potassium and magnessium above 4 and 2 respectively to avoid any arrhythmias. 5. Sepsis 2/2 perforated gastric ulcer 6. Community acquired pneumonia 7.Acute Encephalopathy 8. perforated gastric ulcer 9. Acute blood loss anemia 10. GI bleed 11.DM2 12. Hyperlipidemia Management of rest of the medical conditions as per primary team and other consultants. Thank you for the consult and allowing me to participate in the care of the patient. Cardiology will continue to follow. Jalen Davis M.D. Interventional Cardiology Time Spent With Patient Time: Total time spent is greater than 50% in coordination of care (as documented) at patient's floor/unit and/or counseling patient:
--- NOTE | 2024-05-23 09:16 | PC.NURSE ---
CLARE Moody increased the Levophed.
[2024-05-23] MEDS: PANTOPRAZOLE INJ 40 MG VIAL IVP ×2 (09:17→20:11)
--- NOTE | 2024-05-23 09:22 | PCS.ST ---
pt receiving dialysis tx. GENERAL PRACTITIONER will return later today for swallow eval. Per RN, pt is following commands now. Mentation has improved
--- NOTE | 2024-05-23 10:22 | PC.NURSE ---
BP low, ask ICU to increase Levophed.
--- NOTE | 2024-05-23 10:33 | PC.NURSE ---
Susi SPARKS icreasing levophed.
[2024-05-23 11:13] LABS: INR 1.3 (0.9-1.3); Partial Thromboplastin Time 56.5 Seconds (22.0-36.0); Prothrombin Time 13.5 Seconds (9.0-12.2)
[2024-05-23] MEDS: HEPARIN SOD INJ 1000 UNIT/ML VIAL 10 ML 2500 UNIT INDWELLCAT (11:17)
[2024-05-23] MEDS: PIPER/TAZO 3.375 GM 50 ML IV ×2 (12:32→20:12)
[2024-05-23] MEDS: INSULIN HUM REGULAR 1 UNIT/0.01 ML (PER UNIT) SC ×2 (12:33→18:50)
[2024-05-23] MEDS: FLUCONAZOLE/NS 200 MG IVPB 100 ML 100 MG IV (13:39)
--- NOTE | 2024-05-23 13:41 | PD.IMPROG ---
Documentation for date of: 05/23/24 Subjective Subjective Interval history: Patient evaluated WBC count down to 16.6 Hemoglobin hematocrit 10.4 and 29.9 Exam Vital Signs Temp Pulse Resp BP Pulse Ox O2 Del Method O2 Flow Rate 97.1 F 100 20 90/64 99 Nasal Cannula 3 05/23/24 12:00 05/23/24 12:00 05/23/24 12:00 05/23/24 12:00 05/23/24 12:00 05/22/24 14:35 05/23/24 12:00 FiO2 35 05/21/24 14:02 Objective Labs 05/23/24 05:39 05/23/24 05:39 Labs: Laboratory Results - last 24 hr 05/23/24 05/23/24 05:39 09:48 WBC 16.6 H D RBC 3.63 L Hgb 10.4 L Hct 29.9 L MCV 82 MCH 28.7 MCHC 34.8 RDW Std Deviation 51.8 H Plt Count 400 D Neut % (Auto) 87 H Lymph % (Auto) 6 L [place] % (Auto) 5 Eos % (Auto) 1 Baso % (Auto) 0 Neut # (Auto) 14.4 H Lymph # (Auto) 0.9 L [place] # (Auto) 0.8 Eos # (Auto) 0.2 Baso # (Auto) 0.1 Immature Gran # (Auto) 0.28 H Absolute Nucleated RBC 0.27 H Immature Gran % 2 H Nucleated RBC % 2 H PT 13.5 H INR 1.3 APTT 56.5 H D Sodium 136 Potassium 3.1 L D Chloride 97 L Carbon Dioxide 23.0 Anion Gap 16 BUN 45 H Creatinine 4.7 H* D Estim Creat Clear Calc 10.3 L eGFR 10 L* BUN/Creatinine Ratio 10 L Glucose 232 H D Calculated Osmolality 290 Calcium 9.1 Corrected Calcium 9.5 Phosphorus 3.8 Magnesium 2.3 Total Bilirubin 0.7 AST 20 ALT 30 Alkaline Phosphatase 113 Total Protein 6.4 Albumin 3.5 D Globulin 2.9 Albumin/Globulin Ratio 1.2 Impressions Impression: # Status post exploratory brought me for perforated gastric ulcer pneumoperitoneum requiring omental patch # Improving leukocytosis # Stable hemoglobin hematocrit Continue current management ABG Interpretation ABG results: 05/13/24 05/15/24 05/15/24 08:29 15:28 16:03 ABG pH 7.39 7.05 L* D 7.17 L* D ABG pCO2 31 L 63 H D 45 D ABG pO2 78 L 38 L* D 84 D ABG HCO3 19 L 18 L 16 L ABG O2 Saturation 96 59 L 96 ABG Base Excess -5 L -12 L -11 L VBG pH VBG pCO2 VBG pO2 VBG Base Excess 05/16/24 05/17/24 05/18/24 04:38 04:03 04:20 ABG pH 7.28 L D 7.38 D 7.49 H D ABG pCO2 34 D 28 L 30 L ABG pO2 96 85 66 L ABG HCO3 16 L 17 L 23 ABG O2 Saturation 98 97 94 ABG Base Excess -10 L -8 L 0 VBG pH VBG pCO2 VBG pO2 VBG Base Excess 05/19/24 05/20/24 05/21/24 09:05 06:05 22:35 ABG pH 7.30 L D 7.41 D ABG pCO2 49 H D 42 ABG pO2 63 L 63 L ABG HCO3 24 27 H ABG O2 Saturation 91 93 ABG Base Excess -3 2 VBG pH 7.31 L VBG pCO2 50 VBG pO2 39 VBG Base Excess -2 Assessment & Plan A&P Narrative 69 y/o female with PMH of essential hypertension, gastric ulcers, hyperlipidemia, and DM2 was admitted to the hospital on 05/13/2024 due to acute encephalopathy likely secondary to sepsis secondary to CAP. 1. NSTEMI Type II 2. A-Fib with RVR, New onset -Patient has had elevated troponins from previous admissions with most recent on 11/17/2023 of 0.097 and prior to this on 12/28/2021 was 0.065 -On this admission intial troponins 0.09, uptrended to 0.239 and downtrended. -NSTEMI type II most likley in the setting of sepsis as patient has no chest pain. -EKG on this admission showed LVH with strain pattern and sinus tachycardia which is similiar to prior EKG on 11/22/2023 -CLARY ACS score of 115 points, 7% probability of -Patient in this afternoon developed A-Fib with RVR with ST depressions in anterolateral leads which are mostly rate related ST depressions -Echo ordered to rule out post operative SD and to evaluate for any new regional wall motion abnormalities and to reevaluate bradycardia contraction Plan: -No heparin drip at this time given the severe anemia and perforated gastric ulcer -Recommend to start Amio drip and Amio 200mg P.O. BID. -No anticoagulation given perforated ulcer -Recommend to place patient on high intensity statin and aspirin if GI and general surgery are okay with starting aspirin and there are no other contraindications -Recommend no further troponins as elevated troponins most likely secondary to sepsis from type II NSTEMI. -Patient will need further ischemic evaluation which can be done when she is more stable and can be pursued as outpatient 05/22/2024 Telemtry monitor showed patient was sinus rhythm overnight. Patient more alert and awake today. Recommend to continue Amio drip as well as amiodarone 200 mg BID. Continue vasopressor support as necessary. Replete potassium and magnesium to keep above 4 and 2 respectively to avoid any further arrhythmias. Head CT done yesterday showed a 16mm infarct in left cerebellar hemisphere which could be acute Given patient has A-fib, will need to be on anticoagulation but will need the okay from both neurology and general surgery to start Eliquis. Nephrology following for hemodialysis. Normal LV size and function with an estimated EF of 55 to 60%. Mild LVH. Stage I diastolic dysfunction. RV not visualized appears to have normal size and function. 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 Mild AV Sclerosis without stenosis. 3. Acute decompensated heart failure (EF 60-65%) 4.Essential Hypertension -Patient has some SOB, trace edema and initial BNP was 309 -CXR did show some vascular congestion -Echo from 04/26/2024 had the following findings: Normal LV size and function. Mild LVH. Estimated EF 60-65% Normal RV size and function. Mild to moderate mitral valve stenosis, mean gradient 8mmHg. Moderate MAC. Mild AI, MR, TR. Mild AV sclerosis without stenosis Plan: -Hold diuresis in the setting of sepsis and soft BP, but if BP stabilizes will need diuresis -Strict CACHORRO's -Fluid restrictions -Low sodium diet -Daily weights -Recommend to potassium and magnessium above 4 and 2 respectively to avoid any arrhythmias. 5. Sepsis 2/2 perforated gastric ulcer 6. Community acquired pneumonia 7.Acute Encephalopathy 8. perforated gastric ulcer 9. Acute blood loss anemia 10. GI bleed 11.DM2 12. Hyperlipidemia Management of rest of the medical conditions as per primary team and other consultants. Thank you for the consult and allowing me to participate in the care of the patient. Cardiology will continue to follow. Jalen Davis M.D. Interventional Cardiology Time Spent With Patient Time: Total time spent is greater than 50% in coordination of care (as documented) at patient's floor/unit and/or counseling patient:
--- NOTE | 2024-05-23 14:00 | CHAP ---
09:30 AM Visited by spiritual care volunteer Provided prayer for Patient.
--- NOTE | 2024-05-23 15:17 | PCS.ST ---
pt seen for swallow eval. DRAFTSPERSON recommends D1/THIN. Small sips from spoon only! 1:1 feeder. NO STRAW. discontinue feeding if increase of WOB. see report for additional details
--- NOTE | 2024-05-23 18:03 | PD.RESPRO ---
Documentation for date of: 05/23/24 Subjective Subjective Interval history: 05/18: Overnight patient hemoglobin dropped below 7 and received 2 units of PRBC. Patient is seen and examined at bedside patient continues to have 0 to 10 mL/h urinary output. Patient also had a black tarry bowel movement. Patient underwent HD fluid removal only and removed 2.1 L. Patient is also extubated today. She is doing better, breathing comfortably but complains of abdominal pain which is expected as she is status post abdominal surgery. ABGs are stable. 05/19: no acute overnight events. Pt continues to complain of abdominal pain and minimal urinary output pt. has another episode of black smeared bowel movement but Hgb is stable therefore will continue to monitor daily CBC. Pt is very sensitive to Dilaudid and morphine and causes her to have a decreased respiratory drive with respirations around 9 and 10. Will have to resort to another type of pain management possibly either [place] or IV Tylenol. Will try 0.25 Dilaudid. Patient underwent HD fluid removal and was able to tolerate removing only 1.5 L and patient became hypotensive and Levophed drip was started for a few hours and DC'd the Levophed at 2 PM. 05/21: No acute overnight events patient is saturating on 3 L of oxygen via nasal cannula. patient is unable to follow commands she is able to track the examiners voice. Patient underwent HD fluid removal and removed 2 L of fluid. Patient is more alert when family is around. Patient is placed on intermittent suctioning and stopped tube feedings due to bowel rest will start TPN tomorrow although patient is fluid overloaded and will have to undergo HD fluid removal tomorrow again. Will order IR to place a PICC line specifically for TPN as well as amiodarone drip since patient cannot take p.o. amiodarone due to bowel rest. Still unable to assess neurological function as patient's mentation seems withdrawn. 05/22: Overnight patient was saturating in the low 80s requiring 15 L of oxygen via oxyme mask and then patient improved and continued the rest of the night with 4 L of oxygen via nasal cannula. Patient is seen and examined this morning patient is alert awake and follows commands patient still continues to have weakness in lower extremities. patient still has no urine production and 1 big bowel movement with that melena. Patient received dialysis this morning removing 2.5 L of fluid and during dialysis patient was in A-fib with RVR and amiodarone bolus of 150 was given along with continued amiodarone drip. Patient will be continued to have bowel rest for at least a week therefore nothing through the gut should be given including meds. Patient complained of abdominal pain and IV Tylenol was given which she states it helped. Patient also got a PICC line today for TPN of 1200. BALAJI tube had 50 mL of purulent output through the night and none during the day. Patient's edema is significantly improving. 05/23: overnight pt. had no urine output, remained afebrile and BALAJI drainage had 5 mL of greenish thick output. NG tube had 300 cc of output. Patient is saturating well on 3L of oxygen via nasal. Patient underwent HD for fluid removal dialysis this morning and removed 3 L of fluid. Patient is alert, awake, follows commands and can answer yes or no questions. Patient denies any pain and did not receive any Tylenol overnight or during the day today. Per surgery's recommendation Dr. Silva was okay with starting anticoagulation for A-fib therefore patient was started on heparin drip. Leukocytosis is downtrending CBC is stable and potassium is repleted. Exam Vital Signs Temp Pulse Resp BP Pulse Ox O2 Del Method O2 Flow Rate 97.1 F 101 H 24 H 125/70 98 Nasal Cannula 3 05/23/24 12:00 05/23/24 16:00 05/23/24 16:00 05/23/24 16:00 05/23/24 16:00 05/22/24 14:35 05/23/24 13:00 FiO2 35 05/21/24 14:02 Narrative Exam GENERAL: Patient is awake, alert but is unable to follow commands NEURO: unable to assess because patient is unable to follow commands HEENT: Atraumatic, Normocephalic. mucous membranes moist, left IJ HEART: Normal Heart Sounds LUNGS: Clear to auscultation with no wheezing or crackles. ABDOMEN: surgical scar is clean with BALAJI drain in place with minimal output SKIN: No Rash or ecchymoses EXTREMITIES: 2+ pitting edema in upper and lower extremities, pedal pulses palpated Objective Labs 06/02/24 04:44 06/02/24 04:44 Labs: Laboratory Results - last 24 hr 05/23/24 05/23/24 05:39 09:48 WBC 16.6 H D RBC 3.63 L Hgb 10.4 L Hct 29.9 L MCV 82 MCH 28.7 MCHC 34.8 RDW Std Deviation 51.8 H Plt Count 400 D Neut % (Auto) 87 H Lymph % (Auto) 6 L [place] % (Auto) 5 Eos % (Auto) 1 Baso % (Auto) 0 Neut # (Auto) 14.4 H Lymph # (Auto) 0.9 L [place] # (Auto) 0.8 Eos # (Auto) 0.2 Baso # (Auto) 0.1 Immature Gran # (Auto) 0.28 H Absolute Nucleated RBC 0.27 H Immature Gran % 2 H Nucleated RBC % 2 H PT 13.5 H INR 1.3 APTT 56.5 H D Sodium 136 Potassium 3.1 L D Chloride 97 L Carbon Dioxide 23.0 Anion Gap 16 BUN 45 H Creatinine 4.7 H* D Estim Creat Clear Calc 10.3 L eGFR 10 L* BUN/Creatinine Ratio 10 L Glucose 232 H D Calculated Osmolality 290 Calcium 9.1 Corrected Calcium 9.5 Phosphorus 3.8 Magnesium 2.3 Total Bilirubin 0.7 AST 20 ALT 30 Alkaline Phosphatase 113 Total Protein 6.4 Albumin 3.5 D Globulin 2.9 Albumin/Globulin Ratio 1.2 ABG Interpretation ABG results: 05/13/24 05/15/24 05/15/24 08:29 15:28 16:03 ABG pH 7.39 7.05 L* D 7.17 L* D ABG pCO2 31 L 63 H D 45 D ABG pO2 78 L 38 L* D 84 D ABG HCO3 19 L 18 L 16 L ABG O2 Saturation 96 59 L 96 ABG Base Excess -5 L -12 L -11 L VBG pH VBG pCO2 VBG pO2 VBG Base Excess 05/16/24 05/17/24 05/18/24 04:38 04:03 04:20 ABG pH 7.28 L D 7.38 D 7.49 H D ABG pCO2 34 D 28 L 30 L ABG pO2 96 85 66 L ABG HCO3 16 L 17 L 23 ABG O2 Saturation 98 97 94 ABG Base Excess -10 L -8 L 0 VBG pH VBG pCO2 VBG pO2 VBG Base Excess 05/19/24 05/20/24 05/21/24 09:05 06:05 22:35 ABG pH 7.30 L D 7.41 D ABG pCO2 49 H D 42 ABG pO2 63 L 63 L ABG HCO3 24 27 H ABG O2 Saturation 91 93 ABG Base Excess -3 2 VBG pH 7.31 L VBG pCO2 50 VBG pO2 39 VBG Base Excess -2 Quality Measures Quality Measures VTE prophylaxis Advance care planning discussed with:: child Assessment & Plan Assessment Current Active Medications: Generic Name Dose Route Start Last Admin Trade Name Freq PRN Reason Stop Dose Admin Albuterol/Ipratropium 3 ml 05/20/24 09:23 05/22/24 22:35 Albuterol/Ipratropium (Duoneb) Rt Jimena 3 Ml Nebu INH 06/19/24 12:59 3 ml Q6HRRT PRN Administration SOB or Wheeze Dextrose 25 ml 05/23/24 12:14 Dextrose 50%-Water Inj 50 Ml Syringe IV 06/22/24 12:13 Q15MIN PRN BG 50-70 responsive npo pt Dextrose 50 ml 05/23/24 12:14 Dextrose 50%-Water Inj 50 Ml Syringe IV 06/22/24 12:13 Q15MIN PRN BG <50 OR BG <70 & pt unresponsive Glucagon 1 mg 05/23/24 12:14 Glucagon Inj 1 Mg Vial IM Q15MIN PRN BG <70, and no IV access Heparin Sodium (Porcine) 2,500 unit 05/17/24 15:52 05/23/24 11:17 Heparin Sod Inj 1000 Unit/Ml Vial 10 Ml INDWELLCAT 05/31/24 15:51 2,500 unit PRN PRN Administration DIALYSIS Hydromorphone HCl 0.25 mg 05/19/24 14:38 05/19/24 22:11 Hydromorphone Inj 2 Mg/Ml Vial IVP 05/24/24 14:37 0.25 mg Q4HR PRN Administration PAIN SCALE 4-6 (Moderate Hydromorphone HCl 0.5 mg 05/19/24 14:38 05/20/24 22:59 Hydromorphone Inj 2 Mg/Ml Vial IVP 05/24/24 14:37 0.5 mg Q6H PRN Administration PAIN SCALE 7-10 (Severe Fluconazole 100 mls @ 100 mls/hr 05/21/24 14:00 05/23/24 13:39 Diflucan/Ns Ivpb IV 05/28/24 13:59 100 mls/hr QDAY@1400 ANGELICA Administration Norepinephrine/Dextrose 8 mg in 250 mls @ 7.35 mls/hr 05/20/24 15:40 05/23/24 13:49 Levophed In D5w 8mg/250ml IV 06/19/24 06:55 0.03 mcg/kg/min .Q24H PRN 4.41 mls/hr PER PROTOCOL Titration Protocol 0.05 MCG/KG/MIN Albumin Human 25 gm in 100 mls @ 100 mls/min 05/21/24 10:08 05/23/24 08:52 Albuminar-25 Ivpb IV 100 mls/min PRN PRN Administration DIALYSIS Piperacillin/Tazobactam/Dextrose 50 mls @ 12.5 mls/hr 05/21/24 21:00 05/23/24 12:32 Zosyn IV 05/27/24 13:59 12.5 mls/hr Q12HR ANGELICA Administration Fat Emulsion-Hoffman Oil/Soybean Oil 500 mls @ 32 mls/hr 05/22/24 18:00 05/22/24 17:55 Clinopid 20% Iv IV 06/21/24 17:59 32 mls/hr MoWeFr ANGELICA Administration Thiamine HCl 100 mg/ Potassium 2,011 mls @ 50 mls/hr 05/23/24 18:00 Chloride 20 meq/ Amino Acids IV 05/24/24 17:59 QDAY@1800 ANGELICA Insulin Human Regular 0 unit 05/23/24 12:30 05/23/24 12:33 Insulin Hum Regular 1 Unit/0.01 Ml (Per Unit) SC 06/22/24 12:29 4 unit Q6H ANGELICA Administration Protocol Ondansetron HCl 4 mg 05/13/24 11:58 05/14/24 12:31 Ondansetron Inj 2 Mg/Ml Inj 2 Ml IV 06/12/24 11:57 4 mg Q6H PRN Administration NAUSEA OR VOMITING Protocol Pantoprazole Sodium 40 mg 05/15/24 21:00 05/23/24 09:17 Pantoprazole Inj 40 Mg Vial IVP 06/14/24 20:59 40 mg BID ANGELICA Administration Pharmacy Consult 1 each 05/16/24 10:27 Pharmacy Renal Dose Adjustment 1 Ea XX 06/15/24 10:26 PRN PRN CONSULT Plan Ms. Castellanos is a 69-year-old female with past medical history significant for hypertension, diabetes, CKD stage III, and history of gastric ulcers who presented to the ED on 05/13/2024 after she was found unconscious on the floor. Per chart reviewing prior to this unconsciousness patient was having abdominal pain and generalized weakness with diarrhea and shortness of breath for 2 days. Patient was admitted to the hospital for treatment and management of sepsis secondary to pneumonia. Patient was given 1 L normal saline and started on ceftriaxone and azithromycin. patient underwent ex lap surgery for perforated gastric ulcer. Patient remained intubated postop and is upgraded to the ICU. Neuro: # Acute encephalopathy-improving -Likely multifactorial secondary to sepsis versus metabolic versus neurologic versus medication -Patient is awake and alert and follows some commands. Patient is able to respond to yes or no questions verbally Cardiovasc: #shock - resolved DDx: more likely cardiogenic 2/2 afib with RVR, complicated by s/p laparotomy state -S/P aggressive fluid resuscitation, continue to monitor and will give additional fluids as needed -On levophed and vasopression to maintain MAP >65, wean as tolerated. -Status post 1 unit PRBC given 05/15/2024 for hemoglobin below 7 -Continue iv antibiotics and additional fluids as needed and treat underlying cause -Treat underlying cause # New onset A-fib with RVR -Likely secondary to shock in the setting of abdominal surgery -EKG findings consistent with A-fib -Was on Amiodarone 200 twice daily for new onset Afib, but as she was in AFib with RVR, started on amio drip -Heparin drip started (05/23) for anticoagulation -Cardiology consulted #Acute exacerbation of HFpEF #Hx. of CHF -echo 05/16 -estimated EF of 55 to 60%, stage I diastolic dysfunction noted, Moderate to severe posterior MAC -Pt presented with SOB and 2+ edema in LE -elevated BNP from 304 --> 1110 -HD in the setting of anuria -holding guideline directed medical therapy due to shock, will resume when able -HD dialysis removing 3L fluid done today #Hyperlipidemia -Plan: Hold home atorvastatin as patient is npo. Will reinstate as tolerated #Primary Hypertension -Plan: Hold home amlodipine in setting of shock Pulm: #Acute Hypoxic Respiratory failure likely multifactorial -2/2 to pulmonary edema in the setting of volume overload 2/2 ATN due to shock leading to oligoanuria versus bibasilar pneumonia -Further complicated by bilateral lung atelectasis in the setting of recent abdominal surgery and sedatives use -Patient was intubated and on mechanical ventilation (05/15) and extubated 05/18/2024, currently saturating 95-97 % on 2-3 L NC GI: #Pneumoperitoneum #Peritonitis secondary to perforated gastric ulcer Patient found to have tender abdomen, rigidity in the epigastrium, chest x-ray showed elevation of hemidiaphragm, CT abdomen showed pneumoperitoneum, concern for perforated viscus, general surgeon Dr. Santana was consulted for emergency laparotomy and possible repair of perforated gastric ulcer. Repeat CT abd/pel on 05/20 revealed Pneumoperitoneum, orogastric tube in the stomach, mild free fluid adjacent to the stomach and anterior to the pancreas. ?Patient was given IV fluid boluses, IV albumin 1 PRBC was ordered ?Antibiotic coverage was broadened to Zosyn to cover for anaerobic and enteric pathogens. - Plan: s/p Exploratory laparotomy & repair of perforated gastric ulcer - 05/15. -Surgery following and on pain management with Dilaudid (hold if RR <15) -GI surgeon Dr. Hernandez was made aware of the situation, and she recommended stopping tube feed and starting slow intermittent suctioning via NG tube. -She was also started on Diflucan 400 Mg IV daily for fungal prophylaxis. #Acute Upper GI bleed - stable - most likely secondary to perforated gastric ulcer -Patient had a single episode of black tarry stool today-likely setting of recent abdominal surgery - Plan: Continue iv Protonix. -Will monitor for alarm signs of active bleeding with melena or hematochezia #GI ppx - pantoprazole #Diet -hold all tube feedings due to bowel rest. Will start TPN 1200 cc/Qday (started 05/22/24) Renal: #Acute tubular necrosis #Anuria - 2/2 septic shock -Patient has 0 urine production - Baseline Cr appears to be 0.7 - Plan: Patient underwent HD fluid removal and removed 2.1 L on 05/18 and 1.5 L on 05/19, 2L fluid removed 05/21, 2.5 L fluid removed on 05/22 , 3L fluid removed on 05/23 - Guajardo catheter in place and monitor urine output closely. - Renally dose medications and avoid nephrotoxic agents -repeat labs in am -Nephrology following Endo: #hypoglycemia, resolved #Diabetes Mellitus type II - A1C 6.3 % , BG 232 - Hold home glipizide and januvia - Plan: Continue to monitor blood sugars -insulin sliding scale ordered Heme/Onc: #Acute blood loss anemia- stable - 2/2 perforated ulcer- S/P surgical repair -Hgb stable 10.4 Hct 29.9 ?patient received 2 units of PRBC 05/18 due to acutely drop in Hgb below 7. No signs of active bleeding. -Plan: Continue to monitor daily CBC. transfuse for hemoglobin less than 7. #Leucocytosi-downtrending Likely 2/2 bacterial peritonitis -On IV zosyn -On IV Diflucan 400mg IV daily for fungal prophylaxis ID -On zosyn for bacterial peritonitis (Skin:) #Pressure Ulcer Prevention Disposition: ICU for AHRF & cardiogenic shock DVT Prophylaxis: Heparin drip for coagulation for A-fib GI Prophylaxis: Pantoprozol-40 IV Diet: Nothing p.o. due to bowel rest Lines: central line left IJ for dialysis, right PICC line Code status: Full Assessment and plan discussed with my attending physician Dr. Shantal Rivera (PGY-1)- Internal medicine resident Attending Provider Attestation/Addendum Patient seen and examined with above resident, Karol Rivera MD. I agree with the findings, assessment, and plan of care as documented except for any differences below. Patient continues to have significant abdominal discomfort and fluctuating oxygen requirement. Additionally remains in A-fib with requirement for amiodarone for rate control. Will not discontinue this until intra-abdominal process continues to show improvement. Patient remains on appropriate broad-spectrum antibiotics and antifungals for coverage for peritonitis from upper GI source. GI tract is getting complete bowel rest after concern for leak from site of surgical intervention. Patient receiving ultrafiltration down to ensure avoidance of additional fluid overload from ongoing TPN. Mentation continues to be stable though she is not back to her baseline and continues to appear in distress. BALAJI drain output remains limited but although I still remain concerned for possible development of intra-abdominal abscess and will consider imaging if she fails to show improvement in the next 24 to 48 hours. Will clarify ability to resume anticoagulation with heparin drip with surgery today. Patient and family updated on plan of care at bedside. Total critical care time: I personally spent 35 minutes for review of physiologic parameters, directing plan of care throughout the day, coordination of care with other specialists, and counseling patient's family at bedside. This is exclusive of time spent teaching housestaff or performing any separate billable procedures. Patient continues to require critical care services for intra-abdominal sepsis from gastric perforation status post [place] patch, course complicated by atrial fibrillation with RVR and acute renal failure with volume overload requiring ultrafiltration/hemodialysis while on TPN. Patient remains at high risk for further morbidity and mortality warranting ongoing management and care only available in the intensive care unit.
[2024-05-23] MEDS: THIAMINE IV (18:37)
[2024-05-23] MEDS: POT CHL ADDITIVE IV (18:37)
[2024-05-23] MEDS: AMINO ACID IV (18:37)
[2024-05-23] MEDS: [UNRECOGNIZED DRUG - OTHER] IV (18:37)
[2024-05-23] MEDS: ALBUTEROL/IPRATROPIUM (Duoneb) RT SOL 3 ML NEBU INH (18:55)
[2024-05-23] MEDS: HEPARIN SOD INJ 5000 UNIT/ML VIAL 2000 UNIT IV (20:08)
[2024-05-23] MEDS: Heparin/D5w 25K 250 ML Ivpb 25,000 UNIT/250 ML BAG 10.212 UNIT IV (20:11)
--- NOTE | 2024-05-23 23:59 | VVPN_ITS ---
Telemedicine visit statement This visit was conducted with the use of interactive audio and video telecommunications system that permits real time communication between the patient and the provider. Patient's verbal consent for virtual visit was obtained on 05/23/24 at 2359. Documentation for date of: 05/23/24 Virtual exam Vital Signs Temp Pulse Resp BP Pulse Ox O2 Del Method O2 Flow Rate 98.1 F 111 H 34 H 100/62 97 Nasal Cannula 3 05/23/24 20:00 05/23/24 23:30 05/23/24 23:30 05/23/24 23:30 05/23/24 23:30 05/22/24 14:35 05/23/24 18:55 FiO2 35 05/21/24 14:02 Objective Labs 05/23/24 05:39 05/23/24 05:39 Labs: Laboratory Results - last 24 hr 05/23/24 05/23/24 05:39 09:48 WBC 16.6 H D RBC 3.63 L Hgb 10.4 L Hct 29.9 L MCV 82 MCH 28.7 MCHC 34.8 RDW Std Deviation 51.8 H Plt Count 400 D Neut % (Auto) 87 H Lymph % (Auto) 6 L [place] % (Auto) 5 Eos % (Auto) 1 Baso % (Auto) 0 Neut # (Auto) 14.4 H Lymph # (Auto) 0.9 L [place] # (Auto) 0.8 Eos # (Auto) 0.2 Baso # (Auto) 0.1 Immature Gran # (Auto) 0.28 H Absolute Nucleated RBC 0.27 H Immature Gran % 2 H Nucleated RBC % 2 H PT 13.5 H INR 1.3 APTT 56.5 H D Sodium 136 Potassium 3.1 L D Chloride 97 L Carbon Dioxide 23.0 Anion Gap 16 BUN 45 H Creatinine 4.7 H* D Estim Creat Clear Calc 10.3 L eGFR 10 L* BUN/Creatinine Ratio 10 L Glucose 232 H D Calculated Osmolality 290 Calcium 9.1 Corrected Calcium 9.5 Phosphorus 3.8 Magnesium 2.3 Total Bilirubin 0.7 AST 20 ALT 30 Alkaline Phosphatase 113 Total Protein 6.4 Albumin 3.5 D Globulin 2.9 Albumin/Globulin Ratio 1.2 ABG Interpretation ABG results: 05/13/24 05/15/24 05/15/24 08:29 15:28 16:03 ABG pH 7.39 7.05 L* D 7.17 L* D ABG pCO2 31 L 63 H D 45 D ABG pO2 78 L 38 L* D 84 D ABG HCO3 19 L 18 L 16 L ABG O2 Saturation 96 59 L 96 ABG Base Excess -5 L -12 L -11 L VBG pH VBG pCO2 VBG pO2 VBG Base Excess 05/16/24 05/17/24 05/18/24 04:38 04:03 04:20 ABG pH 7.28 L D 7.38 D 7.49 H D ABG pCO2 34 D 28 L 30 L ABG pO2 96 85 66 L ABG HCO3 16 L 17 L 23 ABG O2 Saturation 98 97 94 ABG Base Excess -10 L -8 L 0 VBG pH VBG pCO2 VBG pO2 VBG Base Excess 05/19/24 05/20/24 05/21/24 09:05 06:05 22:35 ABG pH 7.30 L D 7.41 D ABG pCO2 49 H D 42 ABG pO2 63 L 63 L ABG HCO3 24 27 H ABG O2 Saturation 91 93 ABG Base Excess -3 2 VBG pH 7.31 L VBG pCO2 50 VBG pO2 39 VBG Base Excess -2
[2024-05-24] VITALS (107 sets, daily range): BP systolic 60–153; BP diastolic 45–106; PULSE 92–140; RESP 16–46; TEMP 36.4–37.3; O2SAT 91–99
[2024-05-24] MEDS: INSULIN HUM REGULAR 1 UNIT/0.01 ML (PER UNIT) SC ×3 (01:15→12:50)
[2024-05-24 03:42] LABS: Partial Thromboplastin Time 53.2 Seconds (22.0-36.0)
[2024-05-24 07:13] LABS: Basophils # (Auto) 0.1 Thou/mm3 (0.0-0.2); Basophils % (Auto) 1 % (0-2.5); Eosinophils # (Auto) 0.2 Thou/mm3 (0.0-0.5); Eosinophils % (Auto) 1 % (0-10); Hematocrit 30.7 % (36.0-46.0); Hemoglobin 10.5 g/dL (12.0-16.0); Immature Granulocytes % (Auto) 3 % (0-0); Immature Granulocytes Auto 0.45 Thou/mm3 (0.00-0.00); Lymphocytes # (Auto) 1.2 Thou/mm3 (1.0-4.8); Lymphocytes % (Auto) 7 % (10-50); Mean Corpuscular HGB Conc 34.2 g/dl (31.0-37.0); Mean Corpuscular Volume 82 fL (80-100); Monocytes # (Auto) 0.8 Thou/mm3 (0.0-0.8); Monocytes % (Auto) 5 % (0-12); Neutrophils # (Auto) 13.9 Thou/mm3 (1.8-7.7); Neutrophils % (Auto) 84 % (37-80); Nucleated Red Blood Cell # 0.18 Thou/mm3 (0.00-0.00); Nucleated Red Blood Cell % 1 /100 WBC (0); Platelet Count 425 Thou/mm3 (140-440); RDW Standard Deviation 51.4 fL (36.4-46.3); Red Blood Count 3.75 Miln/mm3 (4.00-5.20); White Blood Count 16.5 Thou/mm3 (3.6-11.0)
[2024-05-24] MEDS: PIPER/TAZO 3.375 GM 50 ML IV ×2 (08:17→21:32)
[2024-05-24] MEDS: PANTOPRAZOLE INJ 40 MG VIAL IVP ×2 (08:17→21:32)
[2024-05-24] MEDS: ALBUTEROL/IPRATROPIUM (Duoneb) RT SOL 3 ML NEBU INH ×3 (08:41→18:55)
--- NOTE | 2024-05-24 08:44 | PD.NEPHPROG ---
Documentation for date of: 05/24/24 Subjective Subjective Interval history: Interval history: Mr. Castellanos is a [id number] with past medical history of prediabetes, CKD, hypertension, history of ulcers who was admitted to [facility] for sepsis secondary to pneumonia and acute metabolic encephalopathy. Patient was BIBA to the ED after being found unconscious on the floor. According to the son on admission patient's daughter found the patient at 3 AM passed out on the floor and unresponsive. Family is unaware along the patient was on the floor. 2 days ago patient started to develop abdominal pain and weakness all over her body associated with some diarrhea and shortness of breath. Patient's abdominal pain comes and goes from right side to left side of the abdomen. ED course patient was hypertensive tachycardic tachypneic and was saturating 92% on 5 L nasal cannula ED labs significant for WBCs 24.3, bicarb 19.6, glucose 259, lactic acid 2.2, BNP 304, troponin 0.09. 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, colonic diverticulosis, Cervical spine CT showed 3 mm radiolucency in C3 vertebral body Chest CTA showed mild aneurysmal dilatation ascending thoracic aorta AP dimension 4.3 cm and pulmonary artery hypertension with moderate vascular congestion Face CT shows no acute facial fracture, Lumbar spine CT shows no acute lumbar fracture severe acquired spinal stenosis L4-L5, Thoracic spine CT showed no acute fracture Brain MRI with MRA showed equally focal restricted diffusion brainstem medullary level significant stenosis of right P1 P2 segment posterior cerebral artery Postadmission, cardiology was consulted on admission because of elevated troponins, suspicion of NSTEMI type II, patient has acute decompensated heart failure per cardiology evaluation, neurology consulted because of patient's acute metabolic encephalopathy and GI was consulted for suspicion of GI bleed. Eventually on 05/15 rapid response was called for worsening chest pain, patient's map was consistently in 70s, was tachycardic tachypneic. CT angiogram showed pneumoperitoneum multiple air droplets adjacent to and within wall of stomach with suspicion of gastric perforation. General surgery was consulted for emergency surgery and patient had exploratory laparotomy with repair of perforated gastric ulcer with an omental patch. Patient was upgraded to ICU postop for further management patient currently on Levophed and vasopressor due to distributive shock, currently sedated and intubated on mechanical ventilation. Nephrology consulted due to concern of ADILSON. 05/16/24: Patient seen at bedside, patient's daughter present at bedside labs reviewed patient's creatinine 3.0, GFR 16 and BUN 60. Patient's baseline GFR more than 60, does report history of chronic kidney disease. Patient's urine output yesterday 820 mL, there is suspicion of acute kidney injury due to patient's underlying distributive shock versus hypovolemic shock, will continue to monitor patient's urine output and renal panel in a.m., plan of care discussed with patient's family at bedside they want to proceed with dialysis if needed. Will continue to monitor patient. 05/20/24: Patient seen at bedside, was downgraded to floors yesterday, was hypotensive overnight, was upgraded to ICU, currently on pressors, agonal breathing noted, will hold dialysis today, patient did receive dialysis yesterday, had about 1.5 L fluid removed. Patient's urine output continues to remain low. Will continue to monitor patient closely. 05/22/24: Patient seen at bedside in the ICU. Saturates well on 2 L NC, blood pressure 134/80, off pressors. Tries to follow commands. On examination has extensive anasarca. Urine output 210 mL. Patient will receive dialysis today with goal to remove 2 L of fluid. Will continue to monitor patient closely. Labs showed sodium 142, potassium 4.3, BUN 49, creatinine 4.6, EGFR 10. 05/23/2024 patient currently seen in ICU. On dialysis. More alert and awake. Family at bedside. Urine output still very minimal. Currently on TPN. Spoke to Dr. Murguia. Ultrafiltration 2 L in progress. 05/24/2024 patient currently seen in ICU. Remains on TPN. On nasal cannula. Urine output still low. Did receive 3 days in a row dialysis. I am going to hold dialysis today. Will reeval tomorrow. Still with edema. Review of Systems Review of Systems ROS Unobtainable: unobtainable due to medical condition and due to endotracheal tube Exam Vital Signs Temp Pulse Resp BP Pulse Ox O2 Del Method O2 Flow Rate 36.7 C 120 H 25 H 115/72 94 L Nasal Cannula 2 05/24/24 04:01 05/24/24 07:15 05/24/24 07:15 05/24/24 07:15 05/24/24 07:15 05/22/24 14:35 05/24/24 06:39 FiO2 35 05/21/24 14:02 Narrative Exam Physical Exam General: Awake and in no acute distress. HEENT: Normocephalic, atraumatic, mucous membranes moist. Heart: Regular rate and rhythm, no murmurs. Lungs: Clear to auscultation with no wheezing or crackles. Abdomen: Soft, nondistended, nontender, positive bowel sounds. ?No guarding or rebound tenderness. drain ++ Neurologic: Alert and oriented x3, no gross neurological deficit, and patient able to move all 4 extremities. Extremities: Lower and upper extremities edema. Anasarca- better Objective Labs 05/25/24 06:58 05/25/24 06:58 Labs: Laboratory Results - last 24 hr 05/23/24 05/24/24 09:48 02:54 WBC 16.5 H RBC 3.75 L Hgb 10.5 L Hct 30.7 L MCV 82 MCH 28.0 MCHC 34.2 RDW Std Deviation 51.4 H Plt Count 425 Neut % (Auto) 84 H Lymph % (Auto) 7 L [place] % (Auto) 5 Eos % (Auto) 1 Baso % (Auto) 1 Neut # (Auto) 13.9 H Lymph # (Auto) 1.2 [place] # (Auto) 0.8 Eos # (Auto) 0.2 Baso # (Auto) 0.1 Immature Gran # (Auto) 0.45 H Absolute Nucleated RBC 0.18 H Immature Gran % 3 H Nucleated RBC % 1 H PT 13.5 H INR 1.3 APTT 56.5 H D 53.2 H ABG Interpretation ABG results: 05/13/24 05/15/24 05/15/24 08:29 15:28 16:03 ABG pH 7.39 7.05 L* D 7.17 L* D ABG pCO2 31 L 63 H D 45 D ABG pO2 78 L 38 L* D 84 D ABG HCO3 19 L 18 L 16 L ABG O2 Saturation 96 59 L 96 ABG Base Excess -5 L -12 L -11 L VBG pH VBG pCO2 VBG pO2 VBG Base Excess 05/16/24 05/17/24 05/18/24 04:38 04:03 04:20 ABG pH 7.28 L D 7.38 D 7.49 H D ABG pCO2 34 D 28 L 30 L ABG pO2 96 85 66 L ABG HCO3 16 L 17 L 23 ABG O2 Saturation 98 97 94 ABG Base Excess -10 L -8 L 0 VBG pH VBG pCO2 VBG pO2 VBG Base Excess 05/19/24 05/20/24 05/21/24 09:05 06:05 22:35 ABG pH 7.30 L D 7.41 D ABG pCO2 49 H D 42 ABG pO2 63 L 63 L ABG HCO3 24 27 H ABG O2 Saturation 91 93 ABG Base Excess -3 2 VBG pH 7.31 L VBG pCO2 50 VBG pO2 39 VBG Base Excess -2 Assessment & Plan Additional Assessment & Plan Additional Plan: Mr. Castellanos is a [id number] with past medical history of prediabetes, CKD, hypertension, history of ulcers who was admitted to [facility] for sepsis secondary to pneumonia and acute metabolic encephalopathy. Patient is currently sedated intubated in ICU status post exploratory laparotomy with repair of perforated gastric ulcer with an omental patch. Nephrology consulted for acute kidney injury. #Acute kidney injury #Acute Tubular Necrosis 2/2 shock #Anasarca Patient currently seems to be in ATN probably ischemic from fluctuations in blood pressure and underlying shock- started her on dialysis.. Patient was started on TPN with significant fluid overload-next dialysis scheduled for am -Renally dose medications -Avoid nephrotoxic agents -Monitor urine output, strict I&O's -Follow renal panel in a.m. Plan discussed with ICU team//Dr. Murguia. #Metabolic acidosis, resolved #Lactic Acidosis #Acute Encephalopathy #Acute ischemic stroke #Distributive shock #Acute decompensated HF #Elevated Troponin #Hyperlipidemia #Primary Hypertension #Acute Hypoxic Respiratory failure #Pneumoperitoneum #Peritonitis secondary to perforated gastric ulcer #Acute Upper GI bleed #Diabetes Mellitus type II #Acute anemia Management as per ICU team.
[2024-05-24 09:31] LABS: Alanine Aminotransferase 23 U/L (10-49); Albumin, Serum 3.4 gm/dL (3.4-4.8); Albumin/Globulin Ratio 1.1 (1.2-2.2); Alkaline Phosphatase 114 U/L (46-116); Anion Gap 15 (7-16); Aspartate Amino Transferase 24 U/L (0-34); BUN/Creatinine Ratio 10 Ratio (12-20); Bilirubin,Total 0.6 mg/dL (0.3-1.2); Blood Urea Nitrogen 42 mg/dL (9-23); Calcium (Corrected) 9.5 mg/dL (8.5-10.1); Chloride 98 mMol/L (98-107); Creatinine (Component) 4.2 mg/dL (0.6-1.3); Estimated Creatinine Clearance 11.3 mL/min (>60); Globulin 3.2 gm/dL (2.3-3.5); Glucose 177 mg/dL (74-106); Osmolality,Calculated 282 (275-295); Potassium 3.1 mMol/L (3.4-5.1); Sodium 134 mMol/L (136-145); Total Protein 6.6 gm/dL (5.7-8.2); eGFR 11 See Note
[2024-05-24 09:40] LABS: Partial Thromboplastin Time 60.2 Seconds (22.0-36.0)
[2024-05-24] MEDS: HYDROmorphone INJ 2 MG/ML VIAL 0.25 MG IVP (10:37)
[2024-05-24] MEDS: AMIODARONE 360 MG IVPB 360 MG/200 ML BAG 33.333 MG IV (10:41)
[2024-05-24] MEDS: AMIODARONE 150 MG IVPB 150 MG/100 ML BAG 600 MG IV (11:00)
[2024-05-24] MEDS: PHENYLEPHRINE HCL 40 MG in SODIUM CHLORIDE 0.9% 96 ML 6.128 MG IV (11:21)
[2024-05-24] MEDS: POTASSIUM CHL 20 mEq IVPB 20 MEQ/100 ML BAG 50 MEQ IV (12:27)
--- NOTE | 2024-05-24 13:20 | PC.SS ---
Update: Patient on 1L oxygen. Patient receiving pressor support. NG tube feedings in place. Dialysis planned for tomorrow.
--- NOTE | 2024-05-24 14:02 | ESPR_ITS ---
Documentation for date of: 05/24/24 Subjective Subjective Interval history: Patient evaluated More alert On TPN NGT in place for bowel rest WBC count stable at 16.5 Hemoglobin hematocrit 10.5 and 30.7 Exam Vital Signs Temp Pulse Resp BP Pulse Ox O2 Del Method O2 Flow Rate 98.6 F 113 H 21 H 83/45 L 93 L Nasal Cannula 2 05/24/24 08:01 05/24/24 11:21 05/24/24 11:00 05/24/24 11:21 05/24/24 11:00 05/22/24 14:35 05/24/24 08:51 FiO2 35 05/21/24 14:02 Constitutional Comments: Chronically ill-appearing Routine Respiratory Exam Comments: Decreased breath sounds at the bases Routine Abdominal Exam Comments: Soft not distended Objective Labs 05/24/24 02:54 05/24/24 08:28 Labs: Laboratory Results - last 24 hr 05/24/24 05/24/24 02:54 08:28 WBC 16.5 H RBC 3.75 L Hgb 10.5 L Hct 30.7 L MCV 82 MCH 28.0 MCHC 34.2 RDW Std Deviation 51.4 H Plt Count 425 Neut % (Auto) 84 H Lymph % (Auto) 7 L [place] % (Auto) 5 Eos % (Auto) 1 Baso % (Auto) 1 Neut # (Auto) 13.9 H Lymph # (Auto) 1.2 [place] # (Auto) 0.8 Eos # (Auto) 0.2 Baso # (Auto) 0.1 Immature Gran # (Auto) 0.45 H Absolute Nucleated RBC 0.18 H Immature Gran % 3 H Nucleated RBC % 1 H APTT 53.2 H 60.2 H Sodium 134 L Potassium 3.1 L Chloride 98 Carbon Dioxide 21.0 Anion Gap 15 BUN 42 H Creatinine 4.2 H* D Estim Creat Clear Calc 11.3 L eGFR 11 L* BUN/Creatinine Ratio 10 L Glucose 177 H D Calculated Osmolality 282 Calcium 9.0 Corrected Calcium 9.5 Total Bilirubin 0.6 AST 24 ALT 23 Alkaline Phosphatase 114 Total Protein 6.6 Albumin 3.4 Globulin 3.2 Albumin/Globulin Ratio 1.1 L Impressions Impression: # Perforated gastric ulcer requiring surgical intervention # Renal failure on hemodialysis Continue current management ABG Interpretation ABG results: 05/13/24 05/15/24 05/15/24 08:29 15:28 16:03 ABG pH 7.39 7.05 L* D 7.17 L* D ABG pCO2 31 L 63 H D 45 D ABG pO2 78 L 38 L* D 84 D ABG HCO3 19 L 18 L 16 L ABG O2 Saturation 96 59 L 96 ABG Base Excess -5 L -12 L -11 L VBG pH VBG pCO2 VBG pO2 VBG Base Excess 05/16/24 05/17/24 05/18/24 04:38 04:03 04:20 ABG pH 7.28 L D 7.38 D 7.49 H D ABG pCO2 34 D 28 L 30 L ABG pO2 96 85 66 L ABG HCO3 16 L 17 L 23 ABG O2 Saturation 98 97 94 ABG Base Excess -10 L -8 L 0 VBG pH VBG pCO2 VBG pO2 VBG Base Excess 05/19/24 05/20/24 05/21/24 09:05 06:05 22:35 ABG pH 7.30 L D 7.41 D ABG pCO2 49 H D 42 ABG pO2 63 L 63 L ABG HCO3 24 27 H ABG O2 Saturation 91 93 ABG Base Excess -3 2 VBG pH 7.31 L VBG pCO2 50 VBG pO2 39 VBG Base Excess -2 Assessment & Plan A&P Narrative 69 y/o female with PMH of essential hypertension, gastric ulcers, hyperlipidemia, and DM2 was admitted to the hospital on 05/13/2024 due to acute encephalopathy likely secondary to sepsis secondary to CAP. 1. NSTEMI Type II 2. A-Fib with RVR, New onset -Patient has had elevated troponins from previous admissions with most recent on 11/17/2023 of 0.097 and prior to this on 12/28/2021 was 0.065 -On this admission intial troponins 0.09, uptrended to 0.239 and downtrended. -NSTEMI type II most likley in the setting of sepsis as patient has no chest pain. -EKG on this admission showed LVH with strain pattern and sinus tachycardia which is similiar to prior EKG on 11/22/2023 -CLARY ACS score of 115 points, 7% probability of -Patient in this afternoon developed A-Fib with RVR with ST depressions in anterolateral leads which are mostly rate related ST depressions -Echo ordered to rule out post operative WA and to evaluate for any new regional wall motion abnormalities and to reevaluate bradycardia contraction Plan: -No heparin drip at this time given the severe anemia and perforated gastric ulcer -Recommend to start Amio drip and Amio 200mg P.O. BID. -No anticoagulation given perforated ulcer -Recommend to place patient on high intensity statin and aspirin if GI and general surgery are okay with starting aspirin and there are no other contraindications -Recommend no further troponins as elevated troponins most likely secondary to sepsis from type II NSTEMI. -Patient will need further ischemic evaluation which can be done when she is more stable and can be pursued as outpatient 05/22/2024 Telemtry monitor showed patient was sinus rhythm overnight. Patient more alert and awake today. Recommend to continue Amio drip as well as amiodarone 200 mg BID. Continue vasopressor support as necessary. Replete potassium and magnesium to keep above 4 and 2 respectively to avoid any further arrhythmias. Head CT done yesterday showed a 16mm infarct in left cerebellar hemisphere which could be acute Given patient has A-fib, will need to be on anticoagulation but will need the okay from both neurology and general surgery to start Eliquis. Nephrology following for hemodialysis. Normal LV size and function with an estimated EF of 55 to 60%. Mild LVH. Stage I diastolic dysfunction. RV not visualized appears to have normal size and function. 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 Mild AV Sclerosis without stenosis. 3. Acute decompensated heart failure (EF 60-65%) 4.Essential Hypertension -Patient has some SOB, trace edema and initial BNP was 309 -CXR did show some vascular congestion -Echo from 04/26/2024 had the following findings: Normal LV size and function. Mild LVH. Estimated EF 60-65% Normal RV size and function. Mild to moderate mitral valve stenosis, mean gradient 8mmHg. Moderate MAC. Mild AI, MR, TR. Mild AV sclerosis without stenosis Plan: -Hold diuresis in the setting of sepsis and soft BP, but if BP stabilizes will need diuresis -Strict CACHORRO's -Fluid restrictions -Low sodium diet -Daily weights -Recommend to potassium and magnessium above 4 and 2 respectively to avoid any arrhythmias. 5. Sepsis 2/2 perforated gastric ulcer 6. Community acquired pneumonia 7.Acute Encephalopathy 8. perforated gastric ulcer 9. Acute blood loss anemia 10. GI bleed 11.DM2 12. Hyperlipidemia Management of rest of the medical conditions as per primary team and other consultants. Thank you for the consult and allowing me to participate in the care of the patient. Cardiology will continue to follow. Jalen Davis M.D. Interventional Cardiology Time Spent With Patient Time: Total time spent is greater than 50% in coordination of care (as documented) at patient's floor/unit and/or counseling patient:
[2024-05-24] MEDS: FLUCONAZOLE/NS 200 MG IVPB 100 ML 100 MG IV (14:04)
[2024-05-24] MEDS: INSULIN GLARGINE (Lantus) 5 UNIT/0.05 ML (PER 5 UNITS) 8 UNIT SC (14:05)
[2024-05-24 14:24] LABS: Anion Gap 15 (7-16); BUN/Creatinine Ratio 10 Ratio (12-20); Blood Urea Nitrogen 44 mg/dL (9-23); Calcium 8.9 mg/dL (8.3-10.6); Carbon Dioxide 20.4 mMol/L (20.0-31.0); Chloride 96 mMol/L (98-107); Creatinine (Component) 4.4 mg/dL (0.6-1.3); Estimated Creatinine Clearance 10.8 mL/min (>60); Glucose 270 mg/dL (74-106); Osmolality,Calculated 283 (275-295); Phosphorous 3.4 mg/dL (2.4-5.1); Potassium 3.8 mMol/L (3.4-5.1); Sodium 131 mMol/L (136-145); eGFR 10 See Note
[2024-05-24 16:01] LABS: Partial Thromboplastin Time 44.6 Seconds (22.0-36.0)
[2024-05-24] MEDS: AMIODARONE 360 MG IVPB 360 MG/200 ML BAG 16.667 MG IV (16:38)
--- NOTE | 2024-05-24 16:44 | XR_ITS ---
Examination: AP chest single view Technique one AP portable semiupright chest single view Exam date and time: May 24, 2024 1715 hrs. Comparison May 21, 2024 Indications: Sepsis Of cough nonresponsive ICU patient Findings: Mild enlargement left ventricle No pneumonia left base obscuring detail left hemidiaphragm Pneumonia right upper lobe Left internal jugular temporary dialysis catheter tip right atrium Dual lumen right arm PICC line tip at junction right subclavian vein and superior vena cava Impression: Significant pneumonia left base and right upper lobe
[2024-05-24] MEDS: HEPARIN SOD INJ 5000 UNIT/ML VIAL 2000 UNIT IVP (17:41)
[2024-05-24] MEDS: [UNRECOGNIZED DRUG - OTHER] IV (18:22)
[2024-05-24] MEDS: AMINO ACID IV (18:22)
[2024-05-24] MEDS: THIAMINE IV (18:22)
[2024-05-24] MEDS: FAT EMUL/OLIVE/SOY/PHOS 20% IV 500 ML 32 ML IV (18:27)
--- NOTE | 2024-05-24 18:30 | ESPR_ITS ---
Documentation for date of: 05/24/24 Subjective Subjective Interval history: 05/18: Overnight patient hemoglobin dropped below 7 and received 2 units of PRBC. Patient is seen and examined at bedside patient continues to have 0 to 10 mL/h urinary output. Patient also had a black tarry bowel movement. Patient underwent HD fluid removal only and removed 2.1 L. Patient is also extubated today. She is doing better, breathing comfortably but complains of abdominal pain which is expected as she is status post abdominal surgery. ABGs are stable. 05/19: no acute overnight events. Pt continues to complain of abdominal pain and minimal urinary output pt. has another episode of black smeared bowel movement but Hgb is stable therefore will continue to monitor daily CBC. Pt is very sensitive to Dilaudid and morphine and causes her to have a decreased respiratory drive with respirations around 9 and 10. Will have to resort to another type of pain management possibly either [place] or IV Tylenol. Will try 0.25 Dilaudid. Patient underwent HD fluid removal and was able to tolerate removing only 1.5 L and patient became hypotensive and Levophed drip was started for a few hours and DC'd the Levophed at 2 PM. 05/21: No acute overnight events patient is saturating on 3 L of oxygen via nasal cannula. patient is unable to follow commands she is able to track the examiners voice. Patient underwent HD fluid removal and removed 2 L of fluid. Patient is more alert when family is around. Patient is placed on intermittent suctioning and stopped tube feedings due to bowel rest will start TPN tomorrow although patient is fluid overloaded and will have to undergo HD fluid removal tomorrow again. Will order IR to place a PICC line specifically for TPN as well as amiodarone drip since patient cannot take p.o. amiodarone due to bowel rest. Still unable to assess neurological function as patient's mentation seems withdrawn. 05/22: Overnight patient was saturating in the low 80s requiring 15 L of oxygen via oxyme mask and then patient improved and continued the rest of the night with 4 L of oxygen via nasal cannula. Patient is seen and examined this morning patient is alert awake and follows commands patient still continues to have weakness in lower extremities. patient still has no urine production and 1 big bowel movement with that melena. Patient received dialysis this morning removing 2.5 L of fluid and during dialysis patient was in A-fib with RVR and amiodarone bolus of 150 was given along with continued amiodarone drip. Patient will be continued to have bowel rest for at least a week therefore nothing through the gut should be given including meds. Patient complained of abdominal pain and IV Tylenol was given which she states it helped. Patient also got a PICC line today for TPN of 1200. BALAJI tube had 50 mL of purulent output through the night and none during the day. Patient's edema is significantly improving. 05/23: overnight pt. had no urine output, remained afebrile and BALAJI drainage had 5 mL of greenish thick output. NG tube had 300 cc of output. Patient is saturating well on 3L of oxygen via nasal. Patient underwent HD for fluid removal dialysis this morning and removed 3 L of fluid. Patient is alert, awake, follows commands and can answer yes or no questions. Patient denies any pain and did not receive any Tylenol overnight or during the day today. Per surgery's recommendation Dr. Silva was okay with starting anticoagulation for A- fib therefore patient was started on heparin drip. Leukocytosis is downtrending CBC is stable and potassium is repleted. 05/24: no overnight events. Pt has no urine output, 1 bowel movement without melena or hematochezia, BALAJI drain has 15ml og greenish thick output and NG has 150cc output on LIS. Pt. remained afebrile and denies pain. Pt is seen and examine at bedside. The edema is has resolved. Pt did not have dialysis today but will have a session tomorrow. Pt is on continued amiodarone drip and anticoagulated with heparin drip. Pt. was off of amio drip overnight therefor this morning bolus amio with phenylephrine was given. Pts. electrolytes are closely monitored and repleted to maintain potassium above 4 and magnesium above 2. If pt. has continued leukocytes, will consider CT scan tomorrow to check of abscess that may need to be drained before the weekend. Exam Vital Signs Temp Pulse Resp BP Pulse Ox O2 Del Method O2 Flow Rate 98.2 F 110 H 20 124/61 97 Nasal Cannula 2 05/24/24 16:01 05/24/24 17:45 05/24/24 17:45 05/24/24 17:45 05/24/24 17:45 05/22/24 14:35 05/24/24 15:05 FiO2 35 05/21/24 14:02 Narrative Exam GENERAL: Patient is awake, alert and follows commands NEURO: unable to assess because patient is unable to follow commands HEENT: Atraumatic, Normocephalic. mucous membranes moist, left IJ HEART: Normal Heart Sounds LUNGS: Clear to auscultation with no wheezing or crackles. ABDOMEN: surgical scar is clean with BALAJI drain in place with minimal output SKIN: No Rash or ecchymoses EXTREMITIES: tace non pitting edema in upper and lower extremities, pedal pulses palpated Objective Labs 06/08/24 06:00 06/07/24 08:25 Labs: Laboratory Results - last 24 hr 05/24/24 05/24/24 05/24/24 02:54 08:28 13:47 WBC 16.5 H RBC 3.75 L Hgb 10.5 L Hct 30.7 L MCV 82 MCH 28.0 MCHC 34.2 RDW Std Deviation 51.4 H Plt Count 425 Neut % (Auto) 84 H Lymph % (Auto) 7 L [place] % (Auto) 5 Eos % (Auto) 1 Baso % (Auto) 1 Neut # (Auto) 13.9 H Lymph # (Auto) 1.2 [place] # (Auto) 0.8 Eos # (Auto) 0.2 Baso # (Auto) 0.1 Immature Gran # (Auto) 0.45 H Absolute Nucleated RBC 0.18 H Immature Gran % 3 H Nucleated RBC % 1 H APTT 53.2 H 60.2 H Sodium 134 L 131 L Potassium 3.1 L 3.8 D Chloride 98 96 L Carbon Dioxide 21.0 20.4 Anion Gap 15 15 BUN 42 H 44 H Creatinine 4.2 H* D 4.4 H* Estim Creat Clear Calc 11.3 L 10.8 L eGFR 11 L* 10 L* BUN/Creatinine Ratio 10 L 10 L Glucose 177 H D 270 H D Calculated Osmolality 282 283 Calcium 9.0 8.9 Corrected Calcium 9.5 Phosphorus 3.4 Magnesium 2.0 Total Bilirubin 0.6 AST 24 ALT 23 Alkaline Phosphatase 114 Total Protein 6.6 Albumin 3.4 Globulin 3.2 Albumin/Globulin Ratio 1.1 L 05/24/24 15:37 WBC RBC Hgb Hct MCV MCH MCHC RDW Std Deviation Plt Count Neut % (Auto) Lymph % (Auto) [place] % (Auto) Eos % (Auto) Baso % (Auto) Neut # (Auto) Lymph # (Auto) [place] # (Auto) Eos # (Auto) Baso # (Auto) Immature Gran # (Auto) Absolute Nucleated RBC Immature Gran % Nucleated RBC % APTT 44.6 H D Sodium Potassium Chloride Carbon Dioxide Anion Gap BUN Creatinine Estim Creat Clear Calc eGFR BUN/Creatinine Ratio Glucose Calculated Osmolality Calcium Corrected Calcium Phosphorus Magnesium Total Bilirubin AST ALT Alkaline Phosphatase Total Protein Albumin Globulin Albumin/Globulin Ratio ABG Interpretation ABG results: 05/13/24 05/15/24 05/15/24 08:29 15:28 16:03 ABG pH 7.39 7.05 L* D 7.17 L* D ABG pCO2 31 L 63 H D 45 D ABG pO2 78 L 38 L* D 84 D ABG HCO3 19 L 18 L 16 L ABG O2 Saturation 96 59 L 96 ABG Base Excess -5 L -12 L -11 L VBG pH VBG pCO2 VBG pO2 VBG Base Excess 05/16/24 05/17/24 05/18/24 04:38 04:03 04:20 ABG pH 7.28 L D 7.38 D 7.49 H D ABG pCO2 34 D 28 L 30 L ABG pO2 96 85 66 L ABG HCO3 16 L 17 L 23 ABG O2 Saturation 98 97 94 ABG Base Excess -10 L -8 L 0 VBG pH VBG pCO2 VBG pO2 VBG Base Excess 05/19/24 05/20/24 05/21/24 09:05 06:05 22:35 ABG pH 7.30 L D 7.41 D ABG pCO2 49 H D 42 ABG pO2 63 L 63 L ABG HCO3 24 27 H ABG O2 Saturation 91 93 ABG Base Excess -3 2 VBG pH 7.31 L VBG pCO2 50 VBG pO2 39 VBG Base Excess -2 Quality Measures Quality Measures VTE prophylaxis Advance care planning discussed with:: child Assessment & Plan Assessment Current Active Medications: Generic Name Dose Route Start Last Admin Trade Name Freq PRN Reason Stop Dose Admin Albuterol/Ipratropium 3 ml 05/20/24 09:23 05/24/24 15:04 Albuterol/Ipratropium (Duoneb) Rt Jimena 3 Ml Nebu INH 06/19/24 12:59 3 ml Q6HRRT PRN Administration SOB or Wheeze Dextrose 25 ml 05/24/24 15:43 Dextrose 50%-Water Inj 50 Ml Syringe IV 06/23/24 15:42 Q15MIN PRN BG 50-70 responsive npo pt Dextrose 50 ml 05/24/24 15:43 Dextrose 50%-Water Inj 50 Ml Syringe IV 06/23/24 15:42 Q15MIN PRN BG <50 OR BG <70 & pt unresponsive Glucagon 1 mg 05/24/24 15:43 Glucagon Inj 1 Mg Vial IM Q15MIN PRN BG <70, and no IV access Heparin Sodium (Porcine) 2,500 unit 05/17/24 15:52 05/23/24 11:17 Heparin Sod Inj 1000 Unit/Ml Vial 10 Ml INDWELLCAT 05/31/24 15:51 2,500 unit PRN PRN Administration DIALYSIS Hydromorphone HCl 0.25 mg 05/24/24 15:40 Hydromorphone Inj 2 Mg/Ml Vial IVP 05/29/24 15:31 Q6H PRN Pain 4-10 Fluconazole 100 mls @ 100 mls/hr 05/21/24 14:00 05/24/24 14:04 Diflucan/Ns Ivpb IV 05/28/24 13:59 100 mls/hr QDAY@1400 ANGELICA Administration Norepinephrine/Dextrose 8 mg in 250 mls @ 7.35 mls/hr 05/20/24 15:40 05/24/24 12:39 Levophed In D5w 8mg/250ml IV 06/19/24 06:55 0 mcg/kg/min .Q24H PRN 0 mls/hr PER PROTOCOL Titration Protocol 0.05 MCG/KG/MIN Albumin Human 25 gm in 100 mls @ 100 mls/min 05/21/24 10:08 05/23/24 08:52 Albuminar-25 Ivpb IV 100 mls/min PRN PRN Administration DIALYSIS Piperacillin/Tazobactam/Dextrose 50 mls @ 12.5 mls/hr 05/21/24 21:00 05/24/24 08:17 Zosyn IV 05/27/24 13:59 12.5 mls/hr Q12HR ANGELICA Administration Fat Emulsion-[place] Oil/Soybean Oil 500 mls @ 32 mls/hr 05/22/24 18:00 05/24/24 18:27 Clinopid 20% Iv IV 06/21/24 17:59 32 mls/hr MoWeFr ANGELICA Administration Heparin Sodium/Dextrose 25,000 unit in 250 mls @ 10.212 mls/hr 05/23/24 18:15 05/24/24 17:34 Heparin In D5w Ivpb IV 06/06/24 18:14 14 units/kg/hr .Q24H ANGELICA 11.914 mls/hr Titration Protocol 12 UNITS/KG/HR Phenylephrine HCl 40 mg/ 100 mls @ 6.128 mls/hr 05/24/24 10:53 05/24/24 14:01 Sodium Chloride IV 06/23/24 10:52 0.5 mcg/kg/min .[id number] PRN 6.128 mls/hr Per Sepsis Protocol Titration Protocol 0.5 MCG/KG/MIN Amiodarone HCl/Dextrose 360 mg in 200 mls @ 16.667 mls/hr 05/24/24 13:32 05/24/24 16:38 Nexterone Ivpb IV 05/28/24 13:31 16.667 mls/hr .Q12H ANGELICA Administration Thiamine HCl 100 mg/ Amino 2,001 mls @ 50 mls/hr 05/24/24 18:00 05/24/24 18:22 Acids IV 05/25/24 17:59 50 mls/hr QDAY@1800 ANGELICA Administration Insulin Glargine 12 unit 05/25/24 09:00 Insulin Glargine (Lantus) 5 Unit/0.05 Ml (Per 5 Units) SC 06/24/24 08:59 QDAY ANGELICA Insulin Human Lispro 0 unit 05/24/24 18:00 Insulin Lispro (Admelog) 1 Unit/0.01 Ml Unit SC 06/23/24 17:59 Q6HR ANGELICA Protocol Ondansetron HCl 4 mg 05/13/24 11:58 05/14/24 12:31 Ondansetron Inj 2 Mg/Ml Inj 2 Ml IV 06/12/24 11:57 4 mg Q6H PRN Administration NAUSEA OR VOMITING Protocol Pantoprazole Sodium 40 mg 05/15/24 21:00 05/24/24 08:17 Pantoprazole Inj 40 Mg Vial IVP 06/14/24 20:59 40 mg BID ANGELICA Administration Pharmacy Consult 1 each 05/16/24 10:27 Pharmacy Renal Dose Adjustment 1 Ea XX 06/15/24 10:26 PRN PRN CONSULT Plan Ms. Castellanos is a 69-year-old female with past medical history significant for hypertension, diabetes, CKD stage III, and history of gastric ulcers who presented to the ED on 05/13/2024 after she was found unconscious on the floor. Per chart reviewing prior to this unconsciousness patient was having abdominal pain and generalized weakness with diarrhea and shortness of breath for 2 days. Patient was admitted to the hospital for treatment and management of sepsis secondary to pneumonia. Patient was given 1 L normal saline and started on ceftriaxone and azithromycin. patient underwent ex lap surgery for perforated gastric ulcer. Patient remained intubated postop and is upgraded to the ICU. Neuro: # Acute encephalopathy-improved -Likely multifactorial secondary to sepsis versus metabolic versus neurologic versus medication -Patient is awake and alert and follows commands. Patient is able to respond to yes or no questions verbally Cardiovasc: #shock - resolved DDx: more likely cardiogenic 2/2 afib with RVR, complicated by s/p laparotomy state -S/P aggressive fluid resuscitation, continue to monitor and will give additional fluids as needed -On levophed and vasopression to maintain MAP >65, wean as tolerated. -Status post 1 unit PRBC given 05/15/2024 for hemoglobin below 7 -Continue iv antibiotics and additional fluids as needed and treat underlying cause -Treat underlying cause # New onset A-fib with RVR -Likely secondary to shock in the setting of abdominal surgery -EKG findings consistent with A-fib -Was on Amiodarone 200 twice daily for new onset Afib, but as she was in AFib with RVR, started on amio drip (will continue amio drip while bowel rest) -Heparin drip started (05/23) for anticoagulation -Cardiology consulted #Acute exacerbation of HFpEF #Hx. of CHF -echo 05/16 -estimated EF of 55 to 60%, stage I diastolic dysfunction noted, Moderate to severe posterior MAC -Pt presented with SOB and 2+ edema in LE -elevated BNP from 304 --> 1110 -HD in the setting of anuria -holding guideline directed medical therapy due to shock, will resume when able #Hyperlipidemia -Plan: Hold home atorvastatin as patient is npo. Will reinstate as tolerated #Primary Hypertension -Plan: Hold home amlodipine in setting of shock Pulm: #Acute Hypoxic Respiratory failure likely multifactorial -2/2 to pulmonary edema in the setting of volume overload 2/2 ATN due to shock leading to oligoanuria versus bibasilar pneumonia -Further complicated by bilateral lung atelectasis in the setting of recent abdominal surgery and sedatives use -Patient was intubated and on mechanical ventilation (05/15) and extubated 05/18/2024, currently saturating 95-97 % on 2-3 L NC GI: #Pneumoperitoneum #Peritonitis secondary to perforated gastric ulcer Patient found to have tender abdomen, rigidity in the epigastrium, chest x-ray showed elevation of hemidiaphragm, CT abdomen showed pneumoperitoneum, concern for perforated viscus, general surgeon Dr. Santana was consulted for emergency laparotomy and possible repair of perforated gastric ulcer. Repeat CT abd/pel on 05/20 revealed Pneumoperitoneum, orogastric tube in the stomach, mild free fluid adjacent to the stomach and anterior to the pancreas. ?Patient was given IV fluid boluses, IV albumin 1 PRBC was ordered ?Antibiotic coverage was broadened to Zosyn to cover for anaerobic and enteric pathogens. - Plan: s/p Exploratory laparotomy & repair of perforated gastric ulcer - 05/15. -Surgery following and on pain management with Dilaudid (hold if RR <15) -GI surgeon Dr. Hernandez was made aware of the situation, and she recommended stopping tube feed and starting slow intermittent suctioning via NG tube. -She was also started on Diflucan 400 Mg IV daily for fungal prophylaxis. #Acute Upper GI bleed - stable - most likely secondary to perforated gastric ulcer -Patient had a single episode of black tarry stool today-likely setting of recent abdominal surgery - Plan: Continue iv Protonix. -Will monitor for alarm signs of active bleeding with melena or hematochezia #GI ppx - pantoprazole #Diet -hold all tube feedings due to bowel rest. Will start TPN 1200 cc/Qday (started 05/22/24) Renal: #Acute tubular necrosis #Anuria - 2/2 septic shock -Patient has 0 urine production - Baseline Cr appears to be 0.7 - Plan: Patient underwent HD fluid removal and removed 2.1 L on 05/18 and 1.5 L on 05/19, 2L fluid removed 05/21, 2.5 L fluid removed on 05/22 , 3L fluid removed on 05/23 - Guajardo catheter in place and monitor urine output closely. - Renally dose medications and avoid nephrotoxic agents -repeat labs in am -Nephrology following Endo: #hypoglycemia, resolved #Diabetes Mellitus type II - A1C 6.3 % , BG 232 - Hold home glipizide and januvia - Plan: Continue to monitor blood sugars -insulin sliding scale ordered with lantus 12 units Heme/Onc: #Acute blood loss anemia- stable - 2/2 perforated ulcer- S/P surgical repair -Hgb stable 10.4 Hct 29.9 ?patient received 2 units of PRBC 05/18 due to acutely drop in Hgb below 7. No signs of active bleeding. -Plan: Continue to monitor daily CBC. transfuse for hemoglobin less than 7. #Leucocytosi-downtrending Likely 2/2 bacterial peritonitis -On IV zosyn -On IV Diflucan 400mg IV daily for fungal prophylaxis -will consider repeat CT scan to check for abcess before the weekend ID -On zosyn for bacterial peritonitis (Skin:) #Pressure Ulcer Prevention Disposition: ICU for AHRF & cardiogenic shock DVT Prophylaxis: Heparin drip for coagulation for A-fib GI Prophylaxis: Pantoprozol-40 IV Diet: Nothing p.o. due to bowel rest Lines: central line left IJ for dialysis, right PICC line Code status: Full Assessment and plan discussed with my attending physician Dr. Shantal Rivera (PGY-1)- Internal medicine resident Attending Provider Attestation/Addendum Patient seen and examined with above resident, Karol Rivera MD. I agree with the findings, assessment, and plan of care as documented except for any differences below. Patient with continued slow improvement though she remains in A-fib as well as septic shock requiring phenylephrine. Patient underwent hemodialysis since yesterday and will take a break today, peripheral edema continues to slowly improve. She continues to have output but minimal from BALAJI drain. NG tube remains on low intermittent suction with minimal output. Bowel rest is ongoing. She remains afebrile but with elevated WBC. Given constellation of cardiac and vascular dysfunction as well as noted output from BALAJI drain suggestive of leak, I have high suspicion of inadequate source control. Will plan for CT scan tomorrow after additional round of antibiotics and removal of confounding agent of fluid removal during hemodialysis today. Should an abscess be present, patient will require drain placement prior to IR services available. Patient and family updated at bedside on plan of care and remained agreeable. Total critical care time: I personally spent 40 minutes for review of physiologic parameters, directing plan of care throughout the day, coordination of care with other specialties, and counseling patient/her family extensively at bedside. This is exclusive of time spent teaching housestaff or performing any separate billable procedures. Patient continues to require critical care services for septic shock secondary to intra-abdominal sepsis from gastric perforation. Patient remains at risk for further morbidity and mortality warranting ongoing management and care will be available in the intensive care unit.
[2024-05-24] MEDS: Heparin/D5w 25K 250 ML Ivpb 25,000 UNIT/250 ML BAG 11.914 UNIT IV (18:35)
[2024-05-24] MEDS: INSULIN LISPRO (AdmeLOG) 1 UNIT/0.01 ML UNIT SC (18:40)
[2024-05-24] MEDS: LEVALBUTEROL RT 1.25 MG/0.5 ML NEBU 5 MG INH (19:17)
--- NOTE | 2024-05-24 22:43 | ESPR_ITS ---
Documentation for date of: 05/24/24 Subjective Subjective Interval history: Patient was seen in ICU today with her family at the bedside. She is off of pressors, making significant improvement in her mental status and response to commands. Exam - Neurology Vital Signs Temp Pulse Resp BP Pulse Ox O2 Del Method O2 Flow Rate 98.2 F 117 H 22 H 111/75 99 Nasal Cannula 4 05/24/24 16:01 05/24/24 19:30 05/24/24 19:30 05/24/24 19:30 05/24/24 19:30 05/22/24 14:35 05/24/24 19:22 FiO2 35 05/21/24 14:02 Objective Labs 05/24/24 02:54 05/24/24 13:47 Labs: Laboratory Results - last 24 hr 05/24/24 05/24/24 05/24/24 02:54 08:28 13:47 WBC 16.5 H RBC 3.75 L Hgb 10.5 L Hct 30.7 L MCV 82 MCH 28.0 MCHC 34.2 RDW Std Deviation 51.4 H Plt Count 425 Neut % (Auto) 84 H Lymph % (Auto) 7 L [place] % (Auto) 5 Eos % (Auto) 1 Baso % (Auto) 1 Neut # (Auto) 13.9 H Lymph # (Auto) 1.2 [place] # (Auto) 0.8 Eos # (Auto) 0.2 Baso # (Auto) 0.1 Immature Gran # (Auto) 0.45 H Absolute Nucleated RBC 0.18 H Immature Gran % 3 H Nucleated RBC % 1 H APTT 53.2 H 60.2 H Sodium 134 L 131 L Potassium 3.1 L 3.8 D Chloride 98 96 L Carbon Dioxide 21.0 20.4 Anion Gap 15 15 BUN 42 H 44 H Creatinine 4.2 H* D 4.4 H* Estim Creat Clear Calc 11.3 L 10.8 L eGFR 11 L* 10 L* BUN/Creatinine Ratio 10 L 10 L Glucose 177 H D 270 H D Calculated Osmolality 282 283 Calcium 9.0 8.9 Corrected Calcium 9.5 Phosphorus 3.4 Magnesium 2.0 Total Bilirubin 0.6 AST 24 ALT 23 Alkaline Phosphatase 114 Total Protein 6.6 Albumin 3.4 Globulin 3.2 Albumin/Globulin Ratio 1.1 L 05/24/24 15:37 WBC RBC Hgb Hct MCV MCH MCHC RDW Std Deviation Plt Count Neut % (Auto) Lymph % (Auto) [place] % (Auto) Eos % (Auto) Baso % (Auto) Neut # (Auto) Lymph # (Auto) [place] # (Auto) Eos # (Auto) Baso # (Auto) Immature Gran # (Auto) Absolute Nucleated RBC Immature Gran % Nucleated RBC % APTT 44.6 H D Sodium Potassium Chloride Carbon Dioxide Anion Gap BUN Creatinine Estim Creat Clear Calc eGFR BUN/Creatinine Ratio Glucose Calculated Osmolality Calcium Corrected Calcium Phosphorus Magnesium Total Bilirubin AST ALT Alkaline Phosphatase Total Protein Albumin Globulin Albumin/Globulin Ratio ABG Interpretation ABG results: 05/13/24 05/15/24 05/15/24 08:29 15:28 16:03 ABG pH 7.39 7.05 L* D 7.17 L* D ABG pCO2 31 L 63 H D 45 D ABG pO2 78 L 38 L* D 84 D ABG HCO3 19 L 18 L 16 L ABG O2 Saturation 96 59 L 96 ABG Base Excess -5 L -12 L -11 L VBG pH VBG pCO2 VBG pO2 VBG Base Excess 05/16/24 05/17/24 05/18/24 04:38 04:03 04:20 ABG pH 7.28 L D 7.38 D 7.49 H D ABG pCO2 34 D 28 L 30 L ABG pO2 96 85 66 L ABG HCO3 16 L 17 L 23 ABG O2 Saturation 98 97 94 ABG Base Excess -10 L -8 L 0 VBG pH VBG pCO2 VBG pO2 VBG Base Excess 05/19/24 05/20/24 05/21/24 09:05 06:05 22:35 ABG pH 7.30 L D 7.41 D ABG pCO2 49 H D 42 ABG pO2 63 L 63 L ABG HCO3 24 27 H ABG O2 Saturation 91 93 ABG Base Excess -3 2 VBG pH 7.31 L VBG pCO2 50 VBG pO2 39 VBG Base Excess -2 Assessment & Plan Additional Assessment & Plan Additional Plan: 69-year-old female with past medical history of CKD stage III, prediabetes, hypertension who was found unconscious in her room. As well as diarrhea and shortness of breath. Admitted for sepsis secondary to pneumonia and acute metabolic encephalopathy #Acute metabolic encephalopathy- currently in ICU being closely monitored. #Generalized weakness -Patient was found to be nonresponsive at home -Intitial Head CT was negative -Patient failed bedside swallow eval -Brain MRI with MRA shows significant stenoses in posterior cerebral artery, no acute infarction noted -Will continue with the current management as per primary team, will hold off on doing EEG as there is significant improvement in mental status. Continue with the passive range of motion exercises prevent contracture, attempt physical therapy as she is more awake
[2024-05-25] VITALS (115 sets, daily range): BP systolic 70–159; BP diastolic 40–129; PULSE 87–145; RESP 13–43; TEMP 36.6–37.5; O2SAT 91–100; BMI 38.2
[2024-05-25] MEDS: PHENYLEPHRINE HCL 40 MG in SODIUM CHLORIDE 0.9% 96 ML 6.128 MG IV ×2 (00:05→16:45)
[2024-05-25] MEDS: AMIODARONE 360 MG IVPB 360 MG/200 ML BAG 16.667 MG IV ×2 (05:12→16:09)
--- NOTE | 2024-05-25 07:00 | XR_ITS ---
Examination: CT abdomen and pelvis without contrast. Coronal 3-D reconstructions. Sagittal 2-D reconstructions. Date and time of exam:May 25, 2024 0832 hours Comparison May 20, 2024 INDICATIONS: Abdominal pain, history pneumoperitoneum on CT study May 20, 2024 CTDI: vol (mGy): 12.5 DLP: (mGycm): 722 Technique: Axial images of the abdomen have been obtained, 3 mm slice thickness Intravenous contrast material has not been administered. Low dose protocols were performed. One or more of the following dose reduction techniques were used; automated exposure control, adjustment of the mA and/or KV according to patient size, use of iterative reconstruction technique. Findings: Significant left base pneumonia Fatty liver Orogastric tube in stomach Minimal pneumoperitoneum Hyperdense gallbladder Left anterior abdomen tube Loculated fluid collections posterior to the stomach 5 cm, 6 cm consider pancreatic pseudocysts No hydronephrosis 5 cm lower pole left renal cyst Mild ascites No pelvic mass Contracted urinary bladder IMPRESSION: Loculated fluid collections posterior to the stomach, 5 cm, 6 cm consider pancreatic pseudocyst Mild ascites Minimal pneumoperitoneum Left base pneumonia
[2024-05-25 07:43] LABS: INR 1.3 (0.9-1.3); Partial Thromboplastin Time 57.2 Seconds (22.0-36.0); Prothrombin Time 13.8 Seconds (9.0-12.2)
[2024-05-25 07:45] LABS: Alanine Aminotransferase 20 U/L (10-49); Albumin, Serum 3.4 gm/dL (3.4-4.8); Alkaline Phosphatase 142 U/L (46-116); Anion Gap 18 (7-16); Aspartate Amino Transferase 32 U/L (0-34); BUN/Creatinine Ratio 11 Ratio (12-20); Bilirubin,Total 0.5 mg/dL (0.3-1.2); Blood Urea Nitrogen 56 mg/dL (9-23); Calcium (Corrected) 10.5 mg/dL (8.5-10.1); Chloride 95 mMol/L (98-107); Estimated Creatinine Clearance 9.5 mL/min (>60); Globulin 3.4 gm/dL (2.3-3.5); Glucose 105 mg/dL (74-106); Osmolality,Calculated 280 (275-295); Potassium 4.5 mMol/L (3.4-5.1); Sodium 132 mMol/L (136-145); Total Protein 6.8 gm/dL (5.7-8.2); eGFR 9 See Note
[2024-05-25] MEDS: HYDROmorphone INJ 2 MG/ML VIAL 0.25 MG IVP ×2 (08:04→18:15)
[2024-05-25 09:00] LABS: Basophils # (Auto) 0.1 Thou/mm3 (0.0-0.2); Basophils % (Auto) 1 % (0-2.5); Eosinophils # (Auto) 0.2 Thou/mm3 (0.0-0.5); Eosinophils % (Auto) 1 % (0-10); Hematocrit 30.9 % (36.0-46.0); Hemoglobin 10.7 g/dL (12.0-16.0); Immature Granulocytes % (Auto) 6 % (0-0); Immature Granulocytes Auto 1.29 Thou/mm3 (0.00-0.00); Lymphocytes # (Auto) 2.2 Thou/mm3 (1.0-4.8); Lymphocytes % (Auto) 10 % (10-50); Mean Corpuscular HGB Conc 34.6 g/dl (31.0-37.0); Mean Corpuscular Hemoglobin 27.6 pg (25.0-35.0); Mean Corpuscular Volume 80 fL (80-100); Monocytes # (Auto) 1.1 Thou/mm3 (0.0-0.8); Monocytes % (Auto) 5 % (0-12); Neutrophils # (Auto) 17.6 Thou/mm3 (1.8-7.7); Neutrophils % (Auto) 78 % (37-80); Nucleated Red Blood Cell # 0.25 Thou/mm3 (0.00-0.00); Nucleated Red Blood Cell % 1 /100 WBC (0); Platelet Count 568 Thou/mm3 (140-440); RDW Standard Deviation 50.6 fL (36.4-46.3); Red Blood Count 3.87 Miln/mm3 (4.00-5.20); White Blood Count 22.5 Thou/mm3 (3.6-11.0)
[2024-05-25 09:04] LABS: Phosphorous 4.5 mg/dL (2.4-5.1)
[2024-05-25] MEDS: ALBUMIN HUMAN 25% IVPB 25 GM/100 ML BTL IV (09:23)
--- NOTE | 2024-05-25 09:32 | PC.NURSE ---
On dialysis. BP low 78/43, HR 126. UF off, albumin started for low BP support. Will ask RN to start levo. Will monitor
--- NOTE | 2024-05-25 10:38 | PC.SS ---
Update: Patient participating with dialysis today.
--- NOTE | 2024-05-25 11:29 | XR_ITS ---
Examination: CT-guided percutaneous placement abscess drainage catheter fluid collection posterior to the stomach CT abdomen without intravenous contrast Date and time of procedure: May 25, 2024 1417 hours INDICATIONS: Bilobed cystic mass posterior to the stomach on CT abdomen pelvis May 25, 2024 0832 hours Informed consent provided. A timeout was completed verifying correct patient, procedure, site and positioning. Technique: Axial 3 mm sections were obtained for localization of the cystic mass posterior to the stomach Appropriate area is marked. The patient's site was prepped and draped in sterile fashion Maximal sterile barrier technique utilized, including hand hygiene Local anesthesia was obtained with 1% lidocaine. Low dose protocols were performed. One or more of the following dose reduction techniques were used; automated exposure control, adjustment of the mA and/or KV according to patient size, use of iterative reconstruction technique. Utilizing CT fluoroscopic guidance 5 Panamanian catheter placed in the cystic mass posterior to the stomach 0.35 wire guide placed through the 5 Panamanian catheter followed by dilator is then an 8 Panamanian abscess drainage catheter in position under fluoroscopic guidance, drainage of 100 cc of fluid Estimated blood loss 3 cc Patient appears in stable condition during this procedure. At completion of the procedure, the patient is in satisfactory condition. Complete culture and sensitivity report to follow Impression: Successful CT-guided percutaneous placement drainage catheter in cystic mass retroareolar gastric, 100 cc turbid fluid in the drainage bag at completion of the procedure, fluid still draining through the catheter
--- NOTE | 2024-05-25 11:39 | ESPR_ITS ---
Documentation for date of: 05/25/24 Subjective Subjective Interval history: 05/18: Overnight patient hemoglobin dropped below 7 and received 2 units of PRBC. Patient is seen and examined at bedside patient continues to have 0 to 10 mL/h urinary output. Patient also had a black tarry bowel movement. Patient underwent HD fluid removal only and removed 2.1 L. Patient is also extubated today. She is doing better, breathing comfortably but complains of abdominal pain which is expected as she is status post abdominal surgery. ABGs are stable. 05/19: no acute overnight events. Pt continues to complain of abdominal pain and minimal urinary output pt. has another episode of black smeared bowel movement but Hgb is stable therefore will continue to monitor daily CBC. Pt is very sensitive to Dilaudid and morphine and causes her to have a decreased respiratory drive with respirations around 9 and 10. Will have to resort to another type of pain management possibly either [place] or IV Tylenol. Will try 0.25 Dilaudid. Patient underwent HD fluid removal and was able to tolerate removing only 1.5 L and patient became hypotensive and Levophed drip was started for a few hours and DC'd the Levophed at 2 PM. 05/21: No acute overnight events patient is saturating on 3 L of oxygen via nasal cannula. patient is unable to follow commands she is able to track the examiners voice. Patient underwent HD fluid removal and removed 2 L of fluid. Patient is more alert when family is around. Patient is placed on intermittent suctioning and stopped tube feedings due to bowel rest will start TPN tomorrow although patient is fluid overloaded and will have to undergo HD fluid removal tomorrow again. Will order IR to place a PICC line specifically for TPN as well as amiodarone drip since patient cannot take p.o. amiodarone due to bowel rest. Still unable to assess neurological function as patient's mentation seems withdrawn. 05/22: Overnight patient was saturating in the low 80s requiring 15 L of oxygen via oxyme mask and then patient improved and continued the rest of the night with 4 L of oxygen via nasal cannula. Patient is seen and examined this morning patient is alert awake and follows commands patient still continues to have weakness in lower extremities. patient still has no urine production and 1 big bowel movement with that melena. Patient received dialysis this morning removing 2.5 L of fluid and during dialysis patient was in A-fib with RVR and amiodarone bolus of 150 was given along with continued amiodarone drip. Patient will be continued to have bowel rest for at least a week therefore nothing through the gut should be given including meds. Patient complained of abdominal pain and IV Tylenol was given which she states it helped. Patient also got a PICC line today for TPN of 1200. BALAJI tube had 50 mL of purulent output through the night and none during the day. Patient's edema is significantly improving. 05/23: overnight pt. had no urine output, remained afebrile and BALAJI drainage had 5 mL of greenish thick output. NG tube had 300 cc of output. Patient is saturating well on 3L of oxygen via nasal. Patient underwent HD for fluid removal dialysis this morning and removed 3 L of fluid. Patient is alert, awake, follows commands and can answer yes or no questions. Patient denies any pain and did not receive any Tylenol overnight or during the day today. Per surgery's recommendation Dr. Silva was okay with starting anticoagulation for A- fib therefore patient was started on heparin drip. Leukocytosis is downtrending CBC is stable and potassium is repleted. 05/24: no overnight events. Pt has no urine output, 1 bowel movement without melena or hematochezia, BALAJI drain has 15ml og greenish thick output and NG has 150cc output on LIS. Pt. remained afebrile and denies pain. Pt is seen and examine at bedside. The edema is has resolved. Pt did not have dialysis today but will have a session tomorrow. Pt is on continued amiodarone drip and anticoagulated with heparin drip. Pt. was off of amio drip overnight therefor this morning bolus amio with phenylephrine was given. Pts. electrolytes are closely monitored and repleted to maintain potassium above 4 and magnesium above 2. If pt. has continued leukocytes, will consider CT scan tomorrow to check of abscess that may need to be drained before the weekend. 05/25: overnight patient had no urine output, and had 1 bowel movement without melena or hematochezia, TPN was also held overnight due to patient was very volume overloaded and in respiratory distress. BALAJI drain had less than 5 mL greenish output. Patient is having dialysis today goal is to remove 2 to 3 L of fluid. Patient continues to require pressor support during dialysis as her blood pressure drops. patient was very tachypneic and tachycardic throughout the evening and overnight and remained tachypneic and tachycardic this morning, patient also had a low-grade fever. Decision was made to repeat CT scan of the abdomen, which found Loculated fluid collections posterior to the stomach, IR was consulted and percutaneous drainage was placed and approximately 150 cc of pus was removed. Will continue to monitor the drainage. Exam Vital Signs Temp Pulse Resp BP Pulse Ox O2 Del Method O2 Flow Rate 98.5 F 119 H 29 H 105/49 L 99 Oxy Mask 4 05/25/24 09:08 05/25/24 11:30 05/25/24 10:16 05/25/24 11:30 05/25/24 10:16 05/25/24 10:00 05/25/24 10:00 FiO2 35 05/25/24 09:08 Narrative Exam GENERAL: Patient is awake, alert and follows commands NEURO: No neurological deficits noted HEENT: Atraumatic, Normocephalic. mucous membranes moist, left IJ HEART: Normal Heart Sounds LUNGS: Clear to auscultation with no wheezing or crackles. ABDOMEN: surgical scar is clean with BALAJI drain in place with minimal output , percutaneous drain catheter palced SKIN: No Rash or ecchymoses EXTREMITIES: trace non pitting edema in upper and lower extremities, pedal pulses palpated Objective Labs 06/08/24 06:00 06/08/24 06:00 Labs: Laboratory Results - last 24 hr 05/24/24 05/24/24 05/24/24 13:47 15:37 23:15 WBC RBC Hgb Hct MCV MCH MCHC RDW Std Deviation Plt Count Neut % (Auto) Lymph % (Auto) Colbert % (Auto) Eos % (Auto) Baso % (Auto) Neut # (Auto) Lymph # (Auto) Colbert # (Auto) Eos # (Auto) Baso # (Auto) Immature Gran # (Auto) Absolute Nucleated RBC Immature Gran % Nucleated RBC % PT INR APTT 44.6 H D 98.0 H D Sodium 131 L Potassium 3.8 D Chloride 96 L Carbon Dioxide 20.4 Anion Gap 15 BUN 44 H Creatinine 4.4 H* Estim Creat Clear Calc 10.8 L eGFR 10 L* BUN/Creatinine Ratio 10 L Glucose 270 H D Calculated Osmolality 283 Calcium 8.9 Corrected Calcium Phosphorus 3.4 Magnesium 2.0 Total Bilirubin AST ALT Alkaline Phosphatase Total Protein Albumin Globulin Albumin/Globulin Ratio 05/25/24 06:58 WBC 22.5 H D RBC 3.87 L Hgb 10.7 L Hct 30.9 L MCV 80 MCH 27.6 MCHC 34.6 RDW Std Deviation 50.6 H Plt Count 568 H D Neut % (Auto) 78 Lymph % (Auto) 10 Colbert % (Auto) 5 Eos % (Auto) 1 Baso % (Auto) 1 Neut # (Auto) 17.6 H Lymph # (Auto) 2.2 Colbert # (Auto) 1.1 H Eos # (Auto) 0.2 Baso # (Auto) 0.1 Immature Gran # (Auto) 1.29 H Absolute Nucleated RBC 0.25 H Immature Gran % 6 H Nucleated RBC % 1 H PT 13.8 H INR 1.3 APTT 57.2 H D Sodium 132 L Potassium 4.5 D Chloride 95 L Carbon Dioxide 19.0 L Anion Gap 18 H BUN 56 H Creatinine 5.0 H* D Estim Creat Clear Calc 9.5 L eGFR 9 L* BUN/Creatinine Ratio 11 L Glucose 105 D Calculated Osmolality 280 Calcium 10.0 Corrected Calcium 10.5 H Phosphorus 4.5 Magnesium 2.0 Total Bilirubin 0.5 AST 32 ALT 20 Alkaline Phosphatase 142 H D Total Protein 6.8 Albumin 3.4 Globulin 3.4 Albumin/Globulin Ratio 1.0 L ABG Interpretation ABG results: 05/13/24 05/15/24 05/15/24 08:29 15:28 16:03 ABG pH 7.39 7.05 L* D 7.17 L* D ABG pCO2 31 L 63 H D 45 D ABG pO2 78 L 38 L* D 84 D ABG HCO3 19 L 18 L 16 L ABG O2 Saturation 96 59 L 96 ABG Base Excess -5 L -12 L -11 L VBG pH VBG pCO2 VBG pO2 VBG Base Excess 05/16/24 05/17/24 05/18/24 04:38 04:03 04:20 ABG pH 7.28 L D 7.38 D 7.49 H D ABG pCO2 34 D 28 L 30 L ABG pO2 96 85 66 L ABG HCO3 16 L 17 L 23 ABG O2 Saturation 98 97 94 ABG Base Excess -10 L -8 L 0 VBG pH VBG pCO2 VBG pO2 VBG Base Excess 05/19/24 05/20/24 05/21/24 09:05 06:05 22:35 ABG pH 7.30 L D 7.41 D ABG pCO2 49 H D 42 ABG pO2 63 L 63 L ABG HCO3 24 27 H ABG O2 Saturation 91 93 ABG Base Excess -3 2 VBG pH 7.31 L VBG pCO2 50 VBG pO2 39 VBG Base Excess -2 Quality Measures Quality Measures VTE prophylaxis Advance care planning discussed with:: child Assessment & Plan Assessment Current Active Medications: Generic Name Dose Route Start Last Admin Trade Name Freq PRN Reason Stop Dose Admin Albuterol/Ipratropium 3 ml 05/20/24 09:23 05/24/24 18:55 Albuterol/Ipratropium (Duoneb) Rt Jimena 3 Ml Nebu INH 06/19/24 12:59 3 ml Q6HRRT PRN Administration SOB or Wheeze Dextrose 25 ml 05/24/24 15:43 Dextrose 50%-Water Inj 50 Ml Syringe IV 06/23/24 15:42 Q15MIN PRN BG 50-70 responsive npo pt Dextrose 50 ml 05/24/24 15:43 Dextrose 50%-Water Inj 50 Ml Syringe IV 06/23/24 15:42 Q15MIN PRN BG <50 OR BG <70 & pt unresponsive Glucagon 1 mg 05/24/24 15:43 Glucagon Inj 1 Mg Vial IM Q15MIN PRN BG <70, and no IV access Heparin Sodium (Porcine) 2,500 unit 05/17/24 15:52 05/23/24 11:17 Heparin Sod Inj 1000 Unit/Ml Vial 10 Ml INDWELLCAT 05/31/24 15:51 2,500 unit PRN PRN Administration DIALYSIS Hydromorphone HCl 0.25 mg 05/24/24 15:40 05/25/24 08:04 Hydromorphone Inj 2 Mg/Ml Vial IVP 05/29/24 15:31 0.25 mg Q6H PRN Administration Pain 4-10 Fluconazole 100 mls @ 100 mls/hr 05/21/24 14:00 05/24/24 14:04 Diflucan/Ns Ivpb IV 05/28/24 13:59 100 mls/hr QDAY@1400 ANGELICA Administration Norepinephrine/Dextrose 8 mg in 250 mls @ 7.35 mls/hr 05/20/24 15:40 05/24/24 12:39 Levophed In D5w 8mg/250ml IV 06/19/24 06:55 0 mcg/kg/min .Q24H PRN 0 mls/hr PER PROTOCOL Titration Protocol 0.05 MCG/KG/MIN Fat Emulsion-[place] Oil/Soybean Oil 500 mls @ 32 mls/hr 05/22/24 18:00 05/24/24 20:00 Clinopid 20% Iv IV 06/21/24 17:59 0 mls/hr MoWeFr ANGELICA Infusion Heparin Sodium/Dextrose 25,000 unit in 250 mls @ 10.212 mls/hr 05/23/24 18:15 05/25/24 08:00 Heparin In D5w Ivpb IV 06/06/24 18:14 12 units/kg/hr .Q24H ANGELICA 10.212 mls/hr Titration Protocol 12 UNITS/KG/HR Phenylephrine HCl 40 mg/ 100 mls @ 6.128 mls/hr 05/24/24 10:53 05/25/24 10:32 Sodium Chloride IV 06/23/24 10:52 0.65 mcg/kg/min .[id number] PRN 7.966 mls/hr Per Sepsis Protocol Titration Protocol 0.5 MCG/KG/MIN Amiodarone HCl/Dextrose 360 mg in 200 mls @ 16.667 mls/hr 05/24/24 13:32 05/25/24 05:12 Nexterone Ivpb IV 05/28/24 13:31 16.667 mls/hr .Q12H ANGELICA Administration Thiamine HCl 100 mg/ Amino 2,001 mls @ 50 mls/hr 05/24/24 18:00 05/24/24 18:22 Acids IV 06/23/24 17:59 50 mls/hr QDAY@1800 ANGELICA Administration Albumin Human 25 gm in 100 mls @ 100 mls/min 05/25/24 10:07 Albuminar-25 Ivpb IV PRN PRN DIALYSIS Meropenem 500 mg/ Sodium 50 mls @ 100 mls/hr 05/25/24 11:00 Chloride IV 06/01/24 10:59 QDAY ANGELICA Insulin Glargine 12 unit 05/25/24 09:00 Insulin Glargine (Lantus) 5 Unit/0.05 Ml (Per 5 Units) SC 06/24/24 08:59 QDAY [facility] Insulin Human Lispro 0 unit 05/24/24 18:00 05/25/24 11:37 Insulin Lispro (Admelog) 1 Unit/0.01 Ml Unit SC 06/23/24 17:59 Not Given Q6HR [facility] Protocol Ondansetron HCl 4 mg 05/13/24 11:58 05/14/24 12:31 Ondansetron Inj 2 Mg/Ml Inj 2 Ml IV 06/12/24 11:57 4 mg Q6H PRN Administration NAUSEA OR VOMITING Protocol Pantoprazole Sodium 40 mg 05/15/24 21:00 05/24/24 21:32 Pantoprazole Inj 40 Mg Vial IVP 06/14/24 20:59 40 mg BID ANGELICA Administration Pharmacy Consult 1 each 05/16/24 10:27 Pharmacy Renal Dose Adjustment 1 Ea XX 06/15/24 10:26 PRN PRN CONSULT Sodium Chloride 3 ml 05/24/24 19:00 Sodium Chloride Rt Jimena 0.9% 3 Ml Nebu INH 06/23/24 18:59 PRN PRN SOLN Plan Ms. Castellanos is a 69-year-old female with past medical history significant for hypertension, diabetes, CKD stage III, and history of gastric ulcers who presented to the ED on 05/13/2024 after she was found unconscious on the floor. Per chart reviewing prior to this unconsciousness patient was having abdominal pain and generalized weakness with diarrhea and shortness of breath for 2 days. Patient was admitted to the hospital for treatment and management of sepsis secondary to pneumonia. Patient was given 1 L normal saline and started on ceftriaxone and azithromycin. patient underwent ex lap surgery for perforated gastric ulcer. Patient remained intubated postop and is upgraded to the ICU. Neuro: # Acute encephalopathy-improved -Likely multifactorial secondary to sepsis versus metabolic versus neurologic versus medication -Patient is awake and alert and follows commands. Patient is able to respond to yes or no questions verbally Cardiovasc: #shock - resolved DDx: more likely cardiogenic 2/2 afib with RVR, complicated by s/p laparotomy state -S/P aggressive fluid resuscitation, continue to monitor and will give additional fluids as needed -On levophed and vasopression to maintain MAP >65, wean as tolerated. -Status post 1 unit PRBC given 05/15/2024 for hemoglobin below 7 -Continue iv antibiotics and additional fluids as needed and treat underlying cause -Treat underlying cause # New onset A-fib with RVR -Likely secondary to shock in the setting of abdominal surgery -EKG findings consistent with A-fib -Was on Amiodarone 200 twice daily for new onset Afib, but as she was in AFib with RVR, started on amio drip (will continue amio drip while bowel rest) -Heparin drip started (05/23) for anticoagulation -Cardiology consulted #Acute exacerbation of HFpEF #Hx. of CHF -echo 05/16 -estimated EF of 55 to 60%, stage I diastolic dysfunction noted, Moderate to severe posterior MAC -Pt presented with SOB and 2+ edema in LE -elevated BNP from 304 --> 1110 -HD in the setting of anuria -holding guideline directed medical therapy due to shock, will resume when able #Hyperlipidemia -Plan: Hold home atorvastatin as patient is npo. Will reinstate as tolerated #Primary Hypertension -Plan: Hold home amlodipine in setting of shock Pulm: #Acute Hypoxic Respiratory failure likely multifactorial -2/2 to pulmonary edema in the setting of volume overload 2/2 ATN due to shock leading to oligoanuria versus bibasilar pneumonia -Further complicated by bilateral lung atelectasis in the setting of recent abdominal surgery and sedatives use -Patient was intubated and on mechanical ventilation (05/15) and extubated 05/18/2024, currently saturating 95-97 % on 2-3 L NC GI: #Pneumoperitoneum #Peritonitis secondary to perforated gastric ulcer Patient found to have tender abdomen, rigidity in the epigastrium, chest x-ray showed elevation of hemidiaphragm, CT abdomen showed pneumoperitoneum, concern for perforated viscus, general surgeon Dr. Santana was consulted for emergency laparotomy and possible repair of perforated gastric ulcer. Repeat CT abd/pel on 05/20 revealed Pneumoperitoneum, orogastric tube in the stomach, mild free fluid adjacent to the stomach and anterior to the pancreas. ?Patient was given IV fluid boluses, IV albumin 1 PRBC was ordered ?Antibiotic coverage was broadened to Zosyn to cover for anaerobic and enteric pathogens. - Plan: s/p Exploratory laparotomy & repair of perforated gastric ulcer - 05/15. -Surgery following and on pain management with Dilaudid (hold if RR <15) -GI surgeon Dr. Hernandez was made aware of the situation, and she recommended stopping tube feed and starting slow intermittent suctioning via NG tube. -She was also started on Diflucan 400 Mg IV daily for fungal prophylaxis. #Acute Upper GI bleed - stable - most likely secondary to perforated gastric ulcer -Patient had a single episode of black tarry stool today-likely setting of recent abdominal surgery - Plan: Continue iv Protonix. -Will monitor for alarm signs of active bleeding with melena or hematochezia #GI ppx - pantoprazole #Diet -hold all tube feedings due to bowel rest. Will start TPN 1200 cc/Qday (started 05/22/24) Renal: #Acute tubular necrosis #Anuria - 2/2 septic shock -Patient has 0 urine production - Baseline Cr appears to be 0.7 - Plan: Patient underwent HD fluid removal and removed 2.1 L on 05/18 and 1.5 L on 05/19, 2L fluid removed 05/21, 2.5 L fluid removed on 05/22 , 3L fluid removed on 05/23 - Guajardo catheter in place and monitor urine output closely. - Renally dose medications and avoid nephrotoxic agents -repeat labs in am -Nephrology following Endo: #hypoglycemia, resolved #Diabetes Mellitus type II - A1C 6.3 % , BG 232 - Hold home glipizide and januvia - Plan: Continue to monitor blood sugars -insulin sliding scale ordered with lantus 12 units Heme/Onc: #Acute blood loss anemia- stable - 2/2 perforated ulcer- S/P surgical repair -Hgb stable 10.7 Hct 30.9 ?patient received 2 units of PRBC 05/18 due to acutely drop in Hgb below 7. No signs of active bleeding. -Plan: Continue to monitor daily CBC. transfuse for hemoglobin less than 7. # Abscess #Leucocytosis -CT scan shows -Loculated 5-6cm fluid collection posterior to the stomach -On IV zosyn -On IV Diflucan 400mg IV daily for fungal prophylaxis -Percutaneous drain catheter in place-150 cc of pus ID -On zosyn for bacterial peritonitis (Skin:) #Pressure Ulcer Prevention Disposition: ICU for AHRF & cardiogenic shock DVT Prophylaxis: Heparin drip for coagulation for A-fib GI Prophylaxis: Pantoprozol-40 IV Diet: Nothing p.o. due to bowel rest Lines: central line left IJ for dialysis, right PICC line, percutaneous drain catheter in place Code status: Full Assessment and plan discussed with my attending physician Dr. Shantal Rivera (PGY-1)- Internal medicine resident Attending Provider Attestation/Addendum Patient seen and examined with above resident, Karol Rivera MD. I agree with the findings, assessment, and plan of care as documented except for any differences below. Patient having return of bowel function and remains on bowel rest with only TPN for nutrition. Patient had minimal greenish output from BALAJI drain her overall status continues to show atrial fibrillation with RVR and higher pressor requirements despite withholding dialysis. Patient increasingly tachypneic and tachycardic suggesting further evolving sepsis and lack of source control. CT scan was done this morning showing loculated fluid collection posterior to the stomach. We promptly did reach out to IR to avoid inability to get adequate percutaneous drain placement and time to avoid worsening of her respiratory status or other precipitants of multiorgan failure. Appreciate IR promptly. Continue with large volume of pus immediately out and prompt improvement in her hemodynamics. Patient remains on broad-spectrum antibiotics with transition from Zosyn to meropenem given potential delay in placement of tube and prevention of translocation of bacteria as well as presence of Pseudomonas likely septated fluid collection intra-abdominal. Patient and family updated on plan of care throughout the day and appreciative of prompt recognition and preventative catheter placement prior to upcoming holiday weekend. Total critical care time: I personally spent 40 minutes for review of physiologic parameters, directing plan of care throughout the day, coordination of care with other specialists, and counseling patient and her family extensively at bedside. This is exclusive of time spent teaching housestaff or performing any separate billable procedures. Patient remains at high risk for further morbidity and mortality warranting ongoing monitoring and close care only available in the intensive care unit. She is requiring critical care services for septic shock secondary to intra-abdominal abscess post gastric perforation with Ramsey patch.
[2024-05-25] MEDS: INSULIN GLARGINE (Lantus) 5 UNIT/0.05 ML (PER 5 UNITS) 12 UNIT SC (11:40)
[2024-05-25] MEDS: PANTOPRAZOLE INJ 40 MG VIAL IVP ×2 (11:40→21:03)
[2024-05-25] MEDS: HEPARIN SOD INJ 1000 UNIT/ML VIAL 10 ML 2500 UNIT INDWELLCAT (12:17)
--- NOTE | 2024-05-25 12:34 | PD.NEPHPROG ---
Documentation for date of: 05/25/24 Subjective Subjective Interval history: Interval history: Mr. Castellanos is a [id number] with past medical history of prediabetes, CKD, hypertension, history of ulcers who was admitted to [facility] for sepsis secondary to pneumonia and acute metabolic encephalopathy. Patient was BIBA to the ED after being found unconscious on the floor. According to the son on admission patient's daughter found the patient at 3 AM passed out on the floor and unresponsive. Family is unaware along the patient was on the floor. 2 days ago patient started to develop abdominal pain and weakness all over her body associated with some diarrhea and shortness of breath. Patient's abdominal pain comes and goes from right side to left side of the abdomen. ED course patient was hypertensive tachycardic tachypneic and was saturating 92% on 5 L nasal cannula ED labs significant for WBCs 24.3, bicarb 19.6, glucose 259, lactic acid 2.2, BNP 304, troponin 0.09. 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, colonic diverticulosis, Cervical spine CT showed 3 mm radiolucency in C3 vertebral body Chest CTA showed mild aneurysmal dilatation ascending thoracic aorta AP dimension 4.3 cm and pulmonary artery hypertension with moderate vascular congestion Face CT shows no acute facial fracture, Lumbar spine CT shows no acute lumbar fracture severe acquired spinal stenosis L4-L5, Thoracic spine CT showed no acute fracture Brain MRI with MRA showed equally focal restricted diffusion brainstem medullary level significant stenosis of right P1 P2 segment posterior cerebral artery Postadmission, cardiology was consulted on admission because of elevated troponins, suspicion of NSTEMI type II, patient has acute decompensated heart failure per cardiology evaluation, neurology consulted because of patient's acute metabolic encephalopathy and GI was consulted for suspicion of GI bleed. Eventually on 05/15 rapid response was called for worsening chest pain, patient's map was consistently in 70s, was tachycardic tachypneic. CT angiogram showed pneumoperitoneum multiple air droplets adjacent to and within wall of stomach with suspicion of gastric perforation. General surgery was consulted for emergency surgery and patient had exploratory laparotomy with repair of perforated gastric ulcer with an omental patch. Patient was upgraded to ICU postop for further management patient currently on Levophed and vasopressor due to distributive shock, currently sedated and intubated on mechanical ventilation. Nephrology consulted due to concern of ADILSON. 05/16/24: Patient seen at bedside, patient's daughter present at bedside labs reviewed patient's creatinine 3.0, GFR 16 and BUN 60. Patient's baseline GFR more than 60, does report history of chronic kidney disease. Patient's urine output yesterday 820 mL, there is suspicion of acute kidney injury due to patient's underlying distributive shock versus hypovolemic shock, will continue to monitor patient's urine output and renal panel in a.m., plan of care discussed with patient's family at bedside they want to proceed with dialysis if needed. Will continue to monitor patient. 05/20/24: Patient seen at bedside, was downgraded to floors yesterday, was hypotensive overnight, was upgraded to ICU, currently on pressors, agonal breathing noted, will hold dialysis today, patient did receive dialysis yesterday, had about 1.5 L fluid removed. Patient's urine output continues to remain low. Will continue to monitor patient closely. 05/22/24: Patient seen at bedside in the ICU. Saturates well on 2 L NC, blood pressure 134/80, off pressors. Tries to follow commands. On examination has extensive anasarca. Urine output 210 mL. Patient will receive dialysis today with goal to remove 2 L of fluid. Will continue to monitor patient closely. Labs showed sodium 142, potassium 4.3, BUN 49, creatinine 4.6, EGFR 10. 05/25/2024 patient currently seen in ICU. On dialysis. More alert and awake. Family at bedside. Urine output still very minimal. Currently on TPN. Spoke to Dr. Murguia. Ultrafiltration 2 L in progress. Edema tad better. On low-dose pressors. Review of Systems Review of Systems ROS Unobtainable: unobtainable due to mental status and unobtainable due to medical condition Exam Vital Signs Temp Pulse Resp BP Pulse Ox O2 Del Method O2 Flow Rate 36.6 C 107 H 24 H 87/58 L 98 Nasal Cannula 4 05/25/24 16:01 05/25/24 17:00 05/25/24 17:00 05/25/24 17:00 05/25/24 17:00 05/25/24 17:00 05/25/24 17:00 FiO2 35 05/25/24 12:31 Narrative Exam Physical Exam General: Awake and in no acute distress. Currently on dialysis HEENT: Normocephalic, atraumatic, mucous membranes moist. Heart: Regular rate and rhythm, no murmurs. Lungs: Clear to auscultation with no wheezing or crackles. Abdomen: Soft, nondistended, nontender, positive bowel sounds. ?No guarding or rebound tenderness. drain ++ Neurologic: Patient awake, no gross neurological deficit, and patient able to move all 4 extremities. Extremities: Lower and upper extremities edema. Anasarca- better Objective Labs 05/25/24 06:58 05/25/24 06:58 Labs: Laboratory Results - last 24 hr 05/24/24 05/25/24 23:15 06:58 WBC 22.5 H D RBC 3.87 L Hgb 10.7 L Hct 30.9 L MCV 80 MCH 27.6 MCHC 34.6 RDW Std Deviation 50.6 H Plt Count 568 H D Neut % (Auto) 78 Lymph % (Auto) 10 [place] % (Auto) 5 Eos % (Auto) 1 Baso % (Auto) 1 Neut # (Auto) 17.6 H Lymph # (Auto) 2.2 [place] # (Auto) 1.1 H Eos # (Auto) 0.2 Baso # (Auto) 0.1 Immature Gran # (Auto) 1.29 H Absolute Nucleated RBC 0.25 H Immature Gran % 6 H Nucleated RBC % 1 H PT 13.8 H INR 1.3 APTT 98.0 H D 57.2 H D Sodium 132 L Potassium 4.5 D Chloride 95 L Carbon Dioxide 19.0 L Anion Gap 18 H BUN 56 H Creatinine 5.0 H* D Estim Creat Clear Calc 9.5 L eGFR 9 L* BUN/Creatinine Ratio 11 L Glucose 105 D Calculated Osmolality 280 Calcium 10.0 Corrected Calcium 10.5 H Phosphorus 4.5 Magnesium 2.0 Total Bilirubin 0.5 AST 32 ALT 20 Alkaline Phosphatase 142 H D Total Protein 6.8 Albumin 3.4 Globulin 3.4 Albumin/Globulin Ratio 1.0 L ABG Interpretation ABG results: 05/13/24 05/15/24 05/15/24 08:29 15:28 16:03 ABG pH 7.39 7.05 L* D 7.17 L* D ABG pCO2 31 L 63 H D 45 D ABG pO2 78 L 38 L* D 84 D ABG HCO3 19 L 18 L 16 L ABG O2 Saturation 96 59 L 96 ABG Base Excess -5 L -12 L -11 L VBG pH VBG pCO2 VBG pO2 VBG Base Excess 05/16/24 05/17/24 05/18/24 04:38 04:03 04:20 ABG pH 7.28 L D 7.38 D 7.49 H D ABG pCO2 34 D 28 L 30 L ABG pO2 96 85 66 L ABG HCO3 16 L 17 L 23 ABG O2 Saturation 98 97 94 ABG Base Excess -10 L -8 L 0 VBG pH VBG pCO2 VBG pO2 VBG Base Excess 05/19/24 05/20/24 05/21/24 09:05 06:05 22:35 ABG pH 7.30 L D 7.41 D ABG pCO2 49 H D 42 ABG pO2 63 L 63 L ABG HCO3 24 27 H ABG O2 Saturation 91 93 ABG Base Excess -3 2 VBG pH 7.31 L VBG pCO2 50 VBG pO2 39 VBG Base Excess -2 Assessment & Plan Additional Assessment & Plan Additional Plan: Mr. Castellanos is a [id number] with past medical history of prediabetes, CKD, hypertension, history of ulcers who was admitted to [facility] for sepsis secondary to pneumonia and acute metabolic encephalopathy. Patient is currently sedated intubated in ICU status post exploratory laparotomy with repair of perforated gastric ulcer with an omental patch. Nephrology consulted for acute kidney injury. #Acute kidney injury #Acute Tubular Necrosis 2/2 shock #Anasarca Patient currently seems to be in ATN probably ischemic from fluctuations in blood pressure and underlying shock- started her on dialysis. Patient currently seen on dialysis. Tolerating dialysis without any problems. Hemodialysis for 3 hours, 2K, ultrafiltration 2-3 L, Epogen 6000, no heparin ordered. Plan of care discussed with the dialysis nurse. Please see dialysis flowsheet for further details. Patient was started on TPN with significant fluid overload-next dialysis scheduled for am -Renally dose medications -Avoid nephrotoxic agents -Monitor urine output, strict I&O's -Follow renal panel in a.m. Plan discussed with ICU team//Dr. Murguia. #Metabolic acidosis, resolved #Lactic Acidosis #Acute Encephalopathy #Acute ischemic stroke #Distributive shock #Acute decompensated HF #Elevated Troponin #Hyperlipidemia #Primary Hypertension #Acute Hypoxic Respiratory failure #Pneumoperitoneum #Peritonitis secondary to perforated gastric ulcer #Acute Upper GI bleed #Diabetes Mellitus type II #Acute anemia Management as per ICU team.
[2024-05-25] MEDS: MEROPENEM INJ 500 MG in SODIUM CHLORIDE 0.9% (P) 50 ML 100 MG IV (12:45)
--- NOTE | 2024-05-25 13:00 | PC.NURSE ---
notified angela nova of placing procedure on hold for tomorrow morning per md nguyen order due to aPTT and PT values elevated. recommends holding heparin drip and am coag labs.
[2024-05-25] MEDS: fentaNYL CIT INJ 50 mCg/ML AMP 2ML IVP (14:40)
[2024-05-25] MEDS: LIDOCAINE INJ PF 1% 5 ML VIAL 30 ML INFL (14:55)
[2024-05-25] MEDS: FLUCONAZOLE/NS 200 MG IVPB 100 ML 100 MG IV (16:15)
--- NOTE | 2024-05-25 16:54 | PD.IMPROG ---
Documentation for date of: 05/25/24 Subjective Subjective Interval history: Remains in the ICU Currently on hemodialysis with a BUN/creatinine of 56 and 5.0 Elevation of the WBC count to 22.5 with a hemoglobin hematocrit at 10.7 and 30.9 and a platelet count of 568,000 Exam Vital Signs Temp Pulse Resp BP Pulse Ox O2 Del Method O2 Flow Rate 97.8 F 115 H 24 H 85/72 L 98 Nasal Cannula 4 05/25/24 16:01 05/25/24 16:45 05/25/24 16:45 05/25/24 16:45 05/25/24 16:45 05/25/24 16:31 05/25/24 16:31 FiO2 35 05/25/24 12:31 Routine Respiratory Exam Comments: Basal Rales Objective Labs 05/25/24 06:58 05/25/24 06:58 Labs: Laboratory Results - last 24 hr 05/24/24 05/25/24 23:15 06:58 WBC 22.5 H D RBC 3.87 L Hgb 10.7 L Hct 30.9 L MCV 80 MCH 27.6 MCHC 34.6 RDW Std Deviation 50.6 H Plt Count 568 H D Neut % (Auto) 78 Lymph % (Auto) 10 [place] % (Auto) 5 Eos % (Auto) 1 Baso % (Auto) 1 Neut # (Auto) 17.6 H Lymph # (Auto) 2.2 [place] # (Auto) 1.1 H Eos # (Auto) 0.2 Baso # (Auto) 0.1 Immature Gran # (Auto) 1.29 H Absolute Nucleated RBC 0.25 H Immature Gran % 6 H Nucleated RBC % 1 H PT 13.8 H INR 1.3 APTT 98.0 H D 57.2 H D Sodium 132 L Potassium 4.5 D Chloride 95 L Carbon Dioxide 19.0 L Anion Gap 18 H BUN 56 H Creatinine 5.0 H* D Estim Creat Clear Calc 9.5 L eGFR 9 L* BUN/Creatinine Ratio 11 L Glucose 105 D Calculated Osmolality 280 Calcium 10.0 Corrected Calcium 10.5 H Phosphorus 4.5 Magnesium 2.0 Total Bilirubin 0.5 AST 32 ALT 20 Alkaline Phosphatase 142 H D Total Protein 6.8 Albumin 3.4 Globulin 3.4 Albumin/Globulin Ratio 1.0 L Impressions Impression: # Status post exploratory laparotomy for perforated gastric ulcer with omental patch and suturing the perforation # Renal failure on hemodialysis Continue current management ABG Interpretation ABG results: 05/13/24 05/15/24 05/15/24 08:29 15:28 16:03 ABG pH 7.39 7.05 L* D 7.17 L* D ABG pCO2 31 L 63 H D 45 D ABG pO2 78 L 38 L* D 84 D ABG HCO3 19 L 18 L 16 L ABG O2 Saturation 96 59 L 96 ABG Base Excess -5 L -12 L -11 L VBG pH VBG pCO2 VBG pO2 VBG Base Excess 05/16/24 05/17/24 05/18/24 04:38 04:03 04:20 ABG pH 7.28 L D 7.38 D 7.49 H D ABG pCO2 34 D 28 L 30 L ABG pO2 96 85 66 L ABG HCO3 16 L 17 L 23 ABG O2 Saturation 98 97 94 ABG Base Excess -10 L -8 L 0 VBG pH VBG pCO2 VBG pO2 VBG Base Excess 05/19/24 05/20/24 05/21/24 09:05 06:05 22:35 ABG pH 7.30 L D 7.41 D ABG pCO2 49 H D 42 ABG pO2 63 L 63 L ABG HCO3 24 27 H ABG O2 Saturation 91 93 ABG Base Excess -3 2 VBG pH 7.31 L VBG pCO2 50 VBG pO2 39 VBG Base Excess -2 Assessment & Plan A&P Narrative 69 y/o female with PMH of essential hypertension, gastric ulcers, hyperlipidemia, and DM2 was admitted to the hospital on 05/13/2024 due to acute encephalopathy likely secondary to sepsis secondary to CAP. 1. NSTEMI Type II 2. A-Fib with RVR, New onset -Patient has had elevated troponins from previous admissions with most recent on 11/17/2023 of 0.097 and prior to this on 12/28/2021 was 0.065 -On this admission intial troponins 0.09, uptrended to 0.239 and downtrended. -NSTEMI type II most likley in the setting of sepsis as patient has no chest pain. -EKG on this admission showed LVH with strain pattern and sinus tachycardia which is similiar to prior EKG on 11/22/2023 -CLARY ACS score of 115 points, 7% probability of -Patient in this afternoon developed A-Fib with RVR with ST depressions in anterolateral leads which are mostly rate related ST depressions -Echo ordered to rule out post operative VT and to evaluate for any new regional wall motion abnormalities and to reevaluate bradycardia contraction Plan: -No heparin drip at this time given the severe anemia and perforated gastric ulcer -Recommend to start Amio drip and Amio 200mg P.O. BID. -No anticoagulation given perforated ulcer -Recommend to place patient on high intensity statin and aspirin if GI and general surgery are okay with starting aspirin and there are no other contraindications -Recommend no further troponins as elevated troponins most likely secondary to sepsis from type II NSTEMI. -Patient will need further ischemic evaluation which can be done when she is more stable and can be pursued as outpatient 05/22/2024 Telemtry monitor showed patient was sinus rhythm overnight. Patient more alert and awake today. Recommend to continue Amio drip as well as amiodarone 200 mg BID. Continue vasopressor support as necessary. Replete potassium and magnesium to keep above 4 and 2 respectively to avoid any further arrhythmias. Head CT done yesterday showed a 16mm infarct in left cerebellar hemisphere which could be acute Given patient has A-fib, will need to be on anticoagulation but will need the okay from both neurology and general surgery to start Eliquis. Nephrology following for hemodialysis. Normal LV size and function with an estimated EF of 55 to 60%. Mild LVH. Stage I diastolic dysfunction. RV not visualized appears to have normal size and function. 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 Mild AV Sclerosis without stenosis. 3. Acute decompensated heart failure (EF 60-65%) 4.Essential Hypertension -Patient has some SOB, trace edema and initial BNP was 309 -CXR did show some vascular congestion -Echo from 04/26/2024 had the following findings: Normal LV size and function. Mild LVH. Estimated EF 60-65% Normal RV size and function. Mild to moderate mitral valve stenosis, mean gradient 8mmHg. Moderate MAC. Mild AI, MR, TR. Mild AV sclerosis without stenosis Plan: -Hold diuresis in the setting of sepsis and soft BP, but if BP stabilizes will need diuresis -Strict CACHORRO's -Fluid restrictions -Low sodium diet -Daily weights -Recommend to potassium and magnessium above 4 and 2 respectively to avoid any arrhythmias. 5. Sepsis 2/2 perforated gastric ulcer 6. Community acquired pneumonia 7.Acute Encephalopathy 8. perforated gastric ulcer 9. Acute blood loss anemia 10. GI bleed 11.DM2 12. Hyperlipidemia Management of rest of the medical conditions as per primary team and other consultants. Thank you for the consult and allowing me to participate in the care of the patient. Cardiology will continue to follow. Jalen Davis M.D. Interventional Cardiology Time Spent With Patient Time: Total time spent is greater than 50% in coordination of care (as documented) at patient's floor/unit and/or counseling patient:
[2024-05-25] MEDS: AMINO ACID IV (17:51)
[2024-05-25] MEDS: [UNRECOGNIZED DRUG - OTHER] IV (17:51)
[2024-05-25] MEDS: ACETAMINOPHEN IVPB 1,000 MG/100 ML VIAL 250 MG IV (22:09)
[2024-05-26] VITALS (118 sets, daily range): BP systolic 77–161; BP diastolic 46–102; PULSE 67–105; RESP 14–33; TEMP 36.2–36.7; O2SAT 87–100
[2024-05-26] MEDS: INSULIN LISPRO (AdmeLOG) 1 UNIT/0.01 ML UNIT SC ×5 (00:11→23:53)
[2024-05-26] MEDS: Heparin/D5w 25K 250 ML Ivpb 25,000 UNIT/250 ML BAG 10.212 UNIT IV (02:10)
[2024-05-26] MEDS: LIDOCAINE 5% 1 PATCH TOP (02:52)
[2024-05-26] MEDS: AMIODARONE 360 MG IVPB 360 MG/200 ML BAG 16.667 MG IV ×2 (03:48→15:08)
[2024-05-26] MEDS: ACETAMINOPHEN IVPB 1,000 MG/100 ML VIAL 250 MG IV (04:20)
[2024-05-26 04:38] LABS: Base Excess 0 (-3-3); HCO3 25 mEq/L (20-26); Inspired Oxygen, FIO2 21 %; O2 Saturation 97 % (91-98); PCO2 42 mmHg (32.0-48.0); PO2 81 mmHg (83-108); pH, Arterial 7.38 (7.35-7.45)
[2024-05-26 04:41] LABS: Allen Test Not Performed; Puncture Site Left Radial
[2024-05-26 04:42] LABS: Inspired O2, VO2 Liters 5 L/min
[2024-05-26 06:40] LABS: Alanine Aminotransferase 14 U/L (10-49); Albumin, Serum 3.5 gm/dL (3.4-4.8); Albumin/Globulin Ratio 1.1 (1.2-2.2); Alkaline Phosphatase 129 U/L (46-116); Anion Gap 14 (7-16); Aspartate Amino Transferase 15 U/L (0-34); BUN/Creatinine Ratio 10 Ratio (12-20); Bilirubin,Total 0.5 mg/dL (0.3-1.2); Blood Urea Nitrogen 40 mg/dL (9-23); Calcium 9.3 mg/dL (8.3-10.6); Calcium (Corrected) 9.7 mg/dL (8.5-10.1); Carbon Dioxide 23.9 mMol/L (20.0-31.0); Chloride 95 mMol/L (98-107); Creatinine (Component) 4.2 mg/dL (0.6-1.3); Estimated Creatinine Clearance 11.4 mL/min (>60); Globulin 3.2 gm/dL (2.3-3.5); Glucose 179 mg/dL (74-106); Osmolality,Calculated 280 (275-295); Sodium 133 mMol/L (136-145); Total Protein 6.7 gm/dL (5.7-8.2); eGFR 11 See Note
[2024-05-26 06:42] LABS: Partial Thromboplastin Time 62.9 Seconds (22.0-36.0)
[2024-05-26 06:44] LABS: Potassium 2.7 mMol/L (3.4-5.1)
[2024-05-26 07:23] LABS: Basophils # (Auto) 0.1 Thou/mm3 (0.0-0.2); Basophils % (Auto) 1 % (0-2.5); Eosinophils # (Auto) 0.2 Thou/mm3 (0.0-0.5); Eosinophils % (Auto) 1 % (0-10); Hematocrit 28.3 % (36.0-46.0); Hemoglobin 9.6 g/dL (12.0-16.0); Immature Granulocytes % (Auto) 6 % (0-0); Immature Granulocytes Auto 1.07 Thou/mm3 (0.00-0.00); Lymphocytes # (Auto) 1.5 Thou/mm3 (1.0-4.8); Lymphocytes % (Auto) 8 % (10-50); Mean Corpuscular HGB Conc 33.9 g/dl (31.0-37.0); Mean Corpuscular Hemoglobin 27.3 pg (25.0-35.0); Mean Corpuscular Volume 80 fL (80-100); Monocytes # (Auto) 0.8 Thou/mm3 (0.0-0.8); Monocytes % (Auto) 4 % (0-12); Neutrophils # (Auto) 14.8 Thou/mm3 (1.8-7.7); Neutrophils % (Auto) 81 % (37-80); Nucleated Red Blood Cell # 0.19 Thou/mm3 (0.00-0.00); Nucleated Red Blood Cell % 1 /100 WBC (0); Platelet Count 549 Thou/mm3 (140-440); RDW Standard Deviation 50.4 fL (36.4-46.3); Red Blood Count 3.52 Miln/mm3 (4.00-5.20); White Blood Count 18.3 Thou/mm3 (3.6-11.0)
--- NOTE | 2024-05-26 08:11 | ESPR_ITS ---
Documentation for date of: 05/26/24 Subjective Subjective Interval history: Ms. Castellanos is a [id number] with past medical history of prediabetes, CKD, hypertension, history of ulcers who was admitted to [facility] for sepsis secondary to pneumonia and acute metabolic encephalopathy. Patient was BIBA to the ED after being found unconscious on the floor. According to the son on admission patient's daughter found the patient at 3 AM passed out on the floor and unresponsive. Family is unaware along the patient was on the floor. 2 days ago patient started to develop abdominal pain and weakness all over her body associated with some diarrhea and shortness of breath. Patient's abdominal pain comes and goes from right side to left side of the abdomen. ED course patient was hypertensive tachycardic tachypneic and was saturating 92% on 5 L nasal cannula ED labs significant for WBCs 24.3, bicarb 19.6, glucose 259, lactic acid 2.2, BNP 304, troponin 0.09. 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, colonic diverticulosis, Cervical spine CT showed 3 mm radiolucency in C3 vertebral body Chest CTA showed mild aneurysmal dilatation ascending thoracic aorta AP dimension 4.3 cm and pulmonary artery hypertension with moderate vascular congestion Face CT shows no acute facial fracture, Lumbar spine CT shows no acute lumbar fracture severe acquired spinal stenosis L4-L5, Thoracic spine CT showed no acute fracture Brain MRI with MRA showed equally focal restricted diffusion brainstem medullary level significant stenosis of right P1 P2 segment posterior cerebral artery Postadmission, cardiology was consulted on admission because of elevated troponins, suspicion of NSTEMI type II, patient has acute decompensated heart failure per cardiology evaluation, neurology consulted because of patient's acute metabolic encephalopathy and GI was consulted for suspicion of GI bleed. Eventually on 05/15 rapid response was called for worsening chest pain, patient's map was consistently in 70s, was tachycardic tachypneic. CT angiogram showed pneumoperitoneum multiple air droplets adjacent to and within wall of stomach with suspicion of gastric perforation. General surgery was consulted for emergency surgery and patient had exploratory laparotomy with repair of perforated gastric ulcer with an omental patch. Patient was upgraded to ICU postop for further management patient currently on Levophed and vasopressor due to distributive shock, currently sedated and intubated on mechanical ventilation. Nephrology consulted due to concern of ADILSON. 05/16/24: Patient seen at bedside, patient's daughter present at bedside labs reviewed patient's creatinine 3.0, GFR 16 and BUN 60. Patient's baseline GFR more than 60, does report history of chronic kidney disease. Patient's urine output yesterday 820 mL, there is suspicion of acute kidney injury due to patient's underlying distributive shock versus hypovolemic shock, will continue to monitor patient's urine output and renal panel in a.m., plan of care discussed with patient's family at bedside they want to proceed with dialysis if needed. Will continue to monitor patient. 05/20/24: Patient seen at bedside, was downgraded to floors yesterday, was hypotensive overnight, was upgraded to ICU, currently on pressors, agonal breathing noted, will hold dialysis today, patient did receive dialysis yesterday, had about 1.5 L fluid removed. Patient's urine output continues to remain low. Will continue to monitor patient closely. 05/22/24: Patient seen at bedside in the ICU. Saturates well on 2 L NC, blood pressure 134/80, off pressors. Tries to follow commands. On examination has extensive anasarca. Urine output 210 mL. Patient will receive dialysis today with goal to remove 2 L of fluid. Will continue to monitor patient closely. Labs showed sodium 142, potassium 4.3, BUN 49, creatinine 4.6, EGFR 10. 05/25/2024 Patient currently seen in ICU. On dialysis. More alert and awake. Family at bedside. Urine output still very minimal. Currently on TPN. Spoke to Dr. Murguia. Ultrafiltration 2 L in progress. Edema tad better. On low-dose pressors. 05/26/2024: Patient seen in ICU status post percutaneous drainage by IR, patient continues to need vasopressors during dialysis, patient did receive hemodialysis treatment yesterday, patient has no urine output, scheduled for another hemodialysis session today with goal to remove 2 to 3 L. Will continue to monitor patient. Exam Vital Signs Temp Pulse Resp BP Pulse Ox O2 Del Method O2 Flow Rate 97.8 F 85 22 H 136/57 H 100 Oxy Mask 2 05/26/24 04:00 05/26/24 06:58 05/26/24 06:58 05/26/24 06:30 05/26/24 06:58 05/26/24 04:00 05/26/24 06:58 FiO2 35 05/25/24 12:31 Narrative Exam Physical Exam General: Awake and in no acute distress. HEENT: Normocephalic, atraumatic, mucous membranes moist. Heart: Regular rate and rhythm, no murmurs. Lungs: Clear to auscultation with no wheezing or crackles. Abdomen: Soft, nondistended, nontender, positive bowel sounds. ?No guarding or rebound tenderness. drain ++ Neurologic: Patient awake, no gross neurological deficit, and patient able to move all 4 extremities. Extremities: Lower and upper extremities edema. Anasarca- better Objective Labs 05/28/24 05:13 05/28/24 16:37 Labs: Laboratory Results - last 24 hr 05/25/24 05/26/24 05/26/24 06:58 04:17 05:30 WBC 22.5 H D 18.3 H RBC 3.87 L 3.52 L Hgb 10.7 L 9.6 L Hct 30.9 L 28.3 L MCV 80 80 MCH 27.6 27.3 MCHC 34.6 33.9 RDW Std Deviation 50.6 H 50.4 H Plt Count 568 H D 549 H Neut % (Auto) 78 81 H Lymph % (Auto) 10 8 L [place] % (Auto) 5 4 Eos % (Auto) 1 1 Baso % (Auto) 1 1 Neut # (Auto) 17.6 H 14.8 H Lymph # (Auto) 2.2 1.5 [place] # (Auto) 1.1 H 0.8 Eos # (Auto) 0.2 0.2 Baso # (Auto) 0.1 0.1 Immature Gran # (Auto) 1.29 H 1.07 H Absolute Nucleated RBC 0.25 H 0.19 H Immature Gran % 6 H 6 H Nucleated RBC % 1 H 1 H APTT 62.9 H Puncture Site Left Radial ABG pH 7.38 ABG pCO2 42 ABG pO2 81 L ABG HCO3 25 ABG O2 Saturation 97 ABG Base Excess 0 Oxygen Liter Flow 5 FiO2 21 Sodium 133 L Potassium 2.7 L* D Chloride 95 L Carbon Dioxide 23.9 Anion Gap 14 BUN 40 H Creatinine 4.2 H* D Estim Creat Clear Calc 11.4 L eGFR 11 L* BUN/Creatinine Ratio 10 L Glucose 179 H D Calculated Osmolality 280 Calcium 9.3 Corrected Calcium 9.7 Phosphorus 4.5 Magnesium 2.0 Total Bilirubin 0.5 AST 15 ALT 14 Alkaline Phosphatase 129 H Total Protein 6.7 Albumin 3.5 Globulin 3.2 Albumin/Globulin Ratio 1.1 L ABG Interpretation ABG results: 05/13/24 05/15/24 05/15/24 08:29 15:28 16:03 ABG pH 7.39 7.05 L* D 7.17 L* D ABG pCO2 31 L 63 H D 45 D ABG pO2 78 L 38 L* D 84 D ABG HCO3 19 L 18 L 16 L ABG O2 Saturation 96 59 L 96 ABG Base Excess -5 L -12 L -11 L VBG pH VBG pCO2 VBG pO2 VBG Base Excess 05/16/24 05/17/24 05/18/24 04:38 04:03 04:20 ABG pH 7.28 L D 7.38 D 7.49 H D ABG pCO2 34 D 28 L 30 L ABG pO2 96 85 66 L ABG HCO3 16 L 17 L 23 ABG O2 Saturation 98 97 94 ABG Base Excess -10 L -8 L 0 VBG pH VBG pCO2 VBG pO2 VBG Base Excess 05/19/24 05/20/24 05/21/24 09:05 06:05 22:35 ABG pH 7.30 L D 7.41 D ABG pCO2 49 H D 42 ABG pO2 63 L 63 L ABG HCO3 24 27 H ABG O2 Saturation 91 93 ABG Base Excess -3 2 VBG pH 7.31 L VBG pCO2 50 VBG pO2 39 VBG Base Excess -2 05/26/24 04:17 ABG pH 7.38 ABG pCO2 42 ABG pO2 81 L ABG HCO3 25 ABG O2 Saturation 97 ABG Base Excess 0 VBG pH VBG pCO2 VBG pO2 VBG Base Excess Quality Measures Quality Measures VTE prophylaxis Advance care planning discussed with:: patient Assessment & Plan Assessment Current Active Medications: Generic Name Dose Route Start Last Admin Trade Name Freq PRN Reason Stop Dose Admin Albuterol/Ipratropium 3 ml 05/20/24 09:23 05/24/24 18:55 Albuterol/Ipratropium (Duoneb) Rt Jimena 3 Ml Nebu INH 06/19/24 12:59 3 ml Q6HRRT PRN Administration SOB or Wheeze Dextrose 25 ml 05/24/24 15:43 Dextrose 50%-Water Inj 50 Ml Syringe IV 06/23/24 15:42 Q15MIN PRN BG 50-70 responsive npo pt Dextrose 50 ml 05/24/24 15:43 Dextrose 50%-Water Inj 50 Ml Syringe IV 06/23/24 15:42 Q15MIN PRN BG <50 OR BG <70 & pt unresponsive Glucagon 1 mg 05/24/24 15:43 Glucagon Inj 1 Mg Vial IM Q15MIN PRN BG <70, and no IV access Heparin Sodium (Porcine) 2,500 unit 05/17/24 15:52 05/25/24 12:17 Heparin Sod Inj 1000 Unit/Ml Vial 10 Ml INDWELLCAT 05/31/24 15:51 2,500 unit PRN PRN Administration DIALYSIS Hydromorphone HCl 0.25 mg 05/24/24 15:40 05/25/24 18:15 Hydromorphone Inj 2 Mg/Ml Vial IVP 05/29/24 15:31 0.25 mg Q6H PRN Administration Pain 4-10 Fluconazole 100 mls @ 100 mls/hr 05/21/24 14:00 05/25/24 16:15 Diflucan/Ns Ivpb IV 05/28/24 13:59 100 mls/hr QDAY@1400 ANGELICA Administration Norepinephrine/Dextrose 8 mg in 250 mls @ 7.35 mls/hr 05/20/24 15:40 05/24/24 12:39 Levophed In D5w 8mg/250ml IV 06/19/24 06:55 0 mcg/kg/min .Q24H PRN 0 mls/hr PER PROTOCOL Titration Protocol 0.05 MCG/KG/MIN Heparin Sodium/Dextrose 25,000 unit in 250 mls @ 10.212 mls/hr 05/23/24 18:15 05/26/24 02:10 Heparin In D5w Ivpb IV 06/06/24 18:14 12 units/kg/hr .Q24H ANGELICA 10.212 mls/hr Administration Protocol 12 UNITS/KG/HR Phenylephrine HCl 40 mg/ 100 mls @ 6.128 mls/hr 05/24/24 10:53 05/26/24 06:00 Sodium Chloride IV 06/23/24 10:52 0.45 mcg/kg/min .[id number] PRN 5.515 mls/hr Per Sepsis Protocol Titration Protocol 0.5 MCG/KG/MIN Amiodarone HCl/Dextrose 360 mg in 200 mls @ 16.667 mls/hr 05/24/24 13:32 05/26/24 03:48 Nexterone Ivpb IV 05/28/24 13:31 16.667 mls/hr .Q12H ANGELICA Administration Albumin Human 25 gm in 100 mls @ 100 mls/min 05/25/24 10:07 Albuminar-25 Ivpb IV PRN PRN DIALYSIS Meropenem 500 mg/ Sodium 50 mls @ 100 mls/hr 05/25/24 11:00 05/25/24 12:45 Chloride IV 06/01/24 10:59 100 mls/hr QDAY ANGELICA Administration Amino Acids 1,000 mls @ 40 mls/hr 05/25/24 18:00 05/25/24 17:51 Clinimix 5/20 IV 05/26/24 17:59 40 mls/hr QDAY@1800 ANGELICA Administration Fat Emulsion-[place] Oil/Soybean Oil 500 mls @ 32 mls/hr 05/27/24 18:00 Clinopid 20% Iv IV 06/26/24 17:59 TuSa@1800 ANGELICA Acetaminophen 1,000 mg in 100 mls @ 250 mls/hr 05/25/24 19:25 05/26/24 04:20 Ofirmev Inj IV 05/26/24 12:23 250 mls/hr Q6HR PRN Administration abdominal pain Potassium Chloride 10 meq in 100 mls @ 100 mls/hr 05/26/24 07:09 Kcl Ivpb IV 05/26/24 11:08 Q1H ANGELICA Insulin Glargine 12 unit 05/25/24 09:00 05/25/24 11:40 Insulin Glargine (Lantus) 5 Unit/0.05 Ml (Per 5 Units) SC 06/24/24 08:59 12 unit QDAY ANGELICA Administration Insulin Human Lispro 0 unit 05/24/24 18:00 05/26/24 06:20 Insulin Lispro (Admelog) 1 Unit/0.01 Ml Unit SC 06/23/24 17:59 2 unit Q6HR ANGELICA Administration Protocol Ondansetron HCl 4 mg 05/13/24 11:58 05/14/24 12:31 Ondansetron Inj 2 Mg/Ml Inj 2 Ml IV 06/12/24 11:57 4 mg Q6H PRN Administration NAUSEA OR VOMITING Protocol Pantoprazole Sodium 40 mg 05/15/24 21:00 05/25/24 21:03 Pantoprazole Inj 40 Mg Vial IVP 06/14/24 20:59 40 mg BID ANGELICA Administration Pharmacy Consult 1 each 05/16/24 10:27 Pharmacy Renal Dose Adjustment 1 Ea XX 06/15/24 10:26 PRN PRN CONSULT Sodium Chloride 3 ml 05/24/24 19:00 Sodium Chloride Rt Jimena 0.9% 3 Ml Nebu INH 06/23/24 18:59 PRN PRN SOLN Plan Summary: Ms. Castellanos is a 81-[id number]-[id number] with past medical history of prediabetes, CKD, hypertension, history of ulcers who was admitted to [facility] for sepsis secondary to pneumonia and acute metabolic encephalopathy. Patient is currently sedated intubated in ICU status post exploratory laparotomy with repair of perforated gastric ulcer with an omental patch. Nephrology consulted for acute kidney injury. #Acute kidney injury #Acute Tubular Necrosis 2/2 shock #Anasarca Patient currently seems to be in ATN probably ischemic from fluctuations in blood pressure and underlying shock- started her on dialysis. Patient currently seen on dialysis. Tolerating dialysis without any problems. Received dialysis treatment yesterday, requires increased pressor support during dialysis. Hemodialysis for 3 hours, 2K, ultrafiltration 2-3 L, Epogen 6000, no heparin ordered. Plan of care discussed with the dialysis nurse. Please see dialysis flowsheet for further details. Patient was started on TPN with significant fluid overload-next dialysis scheduled for am -Renally dose medications -Avoid nephrotoxic agents -Monitor urine output, strict I&O's -Follow renal panel in a.m. Plan discussed with ICU team//Dr. Murguia. #Metabolic acidosis, resolved #Lactic Acidosis #Acute Encephalopathy #Acute ischemic stroke #Distributive shock #Acute decompensated HF #Elevated Troponin #Hyperlipidemia #Primary Hypertension #Acute Hypoxic Respiratory failure #Pneumoperitoneum #Peritonitis secondary to perforated gastric ulcer #Acute Upper GI bleed #Diabetes Mellitus type II #Acute anemia Management as per ICU team. Case discussed with Attending Dr. August. Geovani Mahmood PGY1 Attending Provider Attestation/Addendum Patient seen and examined with resident physician Dr. Mahmood. Note reviewed, agree with findings and recommendations. Patient on dialysis. Tolerating dialysis without any problems. Sequential ultrafiltration for 3 hours. UF 2-3 L, Epogen 6000, no heparin ordered. Plan of care discussed with the dialysis nurse. Please see dialysis flowsheet for further details. Will plan for additional dialysis tomorrow if needed. Plan of care discussed with Dr. Murguia.
[2024-05-26] MEDS: POTASSIUM CHL 20 mEq IVPB 20 MEQ/100 ML BAG 50 MEQ IV ×2 (08:53→11:12)
[2024-05-26] MEDS: PANTOPRAZOLE INJ 40 MG VIAL IVP ×2 (08:53→20:08)
[2024-05-26] MEDS: INSULIN GLARGINE (Lantus) 5 UNIT/0.05 ML (PER 5 UNITS) 12 UNIT SC (08:59)
[2024-05-26] MEDS: MEROPENEM INJ 500 MG in SODIUM CHLORIDE 0.9% (P) 50 ML 100 MG IV (09:03)
[2024-05-26] MEDS: PHENYLEPHRINE HCL 40 MG in SODIUM CHLORIDE 0.9% 96 ML 4.289 MG IV (09:31)
--- NOTE | 2024-05-26 09:54 | CHAP ---
Patient and family expressed gratitude for visit and prayer.
--- NOTE | 2024-05-26 11:50 | PD.IDPROG ---
Subjective Subjective Interval history: here since 05/13. on merrem for 24h. possibly due to wbc as no new pos micro. pt in icu. Exam Vital Signs Temp Pulse Resp BP Pulse Ox O2 Del Method O2 Flow Rate 98.0 F 80 15 133/73 H 100 Nasal Cannula 4 05/26/24 08:00 05/26/24 09:31 05/26/24 09:00 05/26/24 09:31 05/26/24 09:00 05/26/24 09:00 05/26/24 09:00 FiO2 35 05/25/24 12:31 Narrative Exam not on vent. old rt ij site ok. line out abd benign. has new drain in collection noted with neg gram stain. Objective - Internal Medicine Labs 05/26/24 05:30 05/26/24 05:30 Labs: Laboratory Results - last 24 hr 05/26/24 05/26/24 04:17 05:30 WBC 18.3 H RBC 3.52 L Hgb 9.6 L Hct 28.3 L MCV 80 MCH 27.3 MCHC 33.9 RDW Std Deviation 50.4 H Plt Count 549 H Neut % (Auto) 81 H Lymph % (Auto) 8 L [place] % (Auto) 4 Eos % (Auto) 1 Baso % (Auto) 1 Neut # (Auto) 14.8 H Lymph # (Auto) 1.5 [place] # (Auto) 0.8 Eos # (Auto) 0.2 Baso # (Auto) 0.1 Immature Gran # (Auto) 1.07 H Absolute Nucleated RBC 0.19 H Immature Gran % 6 H Nucleated RBC % 1 H APTT 62.9 H Puncture Site Left Radial ABG pH 7.38 ABG pCO2 42 ABG pO2 81 L ABG HCO3 25 ABG O2 Saturation 97 ABG Base Excess 0 Oxygen Liter Flow 5 FiO2 21 Sodium 133 L Potassium 2.7 L* D Chloride 95 L Carbon Dioxide 23.9 Anion Gap 14 BUN 40 H Creatinine 4.2 H* D Estim Creat Clear Calc 11.4 L eGFR 11 L* BUN/Creatinine Ratio 10 L Glucose 179 H D Calculated Osmolality 280 Calcium 9.3 Corrected Calcium 9.7 Total Bilirubin 0.5 AST 15 ALT 14 Alkaline Phosphatase 129 H Total Protein 6.7 Albumin 3.5 Globulin 3.2 Albumin/Globulin Ratio 1.1 L ABG Interpretation ABG results: 12/05/15/24 05/15/24 08:29 15:28 16:03 ABG pH 7.39 7.05 L* D 7.17 L* D ABG pCO2 31 L 63 H D 45 D ABG pO2 78 L 38 L* D 84 D ABG HCO3 19 L 18 L 16 L ABG O2 Saturation 96 59 L 96 ABG Base Excess -5 L -12 L -11 L VBG pH VBG pCO2 VBG pO2 VBG Base Excess 05/16/24 05/17/24 05/18/24 04:38 04:03 04:20 ABG pH 7.28 L D 7.38 D 7.49 H D ABG pCO2 34 D 28 L 30 L ABG pO2 96 85 66 L ABG HCO3 16 L 17 L 23 ABG O2 Saturation 98 97 94 ABG Base Excess -10 L -8 L 0 VBG pH VBG pCO2 VBG pO2 VBG Base Excess 05/19/24 05/20/24 05/21/24 09:05 06:05 22:35 ABG pH 7.30 L D 7.41 D ABG pCO2 49 H D 42 ABG pO2 63 L 63 L ABG HCO3 24 27 H ABG O2 Saturation 91 93 ABG Base Excess -3 2 VBG pH 7.31 L VBG pCO2 50 VBG pO2 39 VBG Base Excess -2 05/26/24 04:17 ABG pH 7.38 ABG pCO2 42 ABG pO2 81 L ABG HCO3 25 ABG O2 Saturation 97 ABG Base Excess 0 VBG pH VBG pCO2 VBG pO2 VBG Base Excess Assessment & Plan A&P Narrative here since 05/13. so on rx a long time now. usual rx for most things is 7d. will leave on merrem thru weekend but unless collection in abd grows a likely pathogen, may look at cessation on Wednesday Time Spent With Patient Time: Total time spent is greater than 50% in coordination of care (as documented) at patient's floor/unit and/or counseling patient:
--- NOTE | 2024-05-26 11:57 | ESPR_ITS ---
Subjective Subjective Interval history: seen. limited interaction. recenly extubated per staff Exam Vital Signs Temp Pulse Resp BP Pulse Ox O2 Del Method O2 Flow Rate 98.0 F 80 15 133/73 H 100 Nasal Cannula 4 05/26/24 08:00 05/26/24 09:31 05/26/24 09:00 05/26/24 09:31 05/26/24 09:00 05/26/24 09:00 05/26/24 09:00 FiO2 35 05/25/24 12:31 Narrative Exam somnolent. abd benign though Objective - Internal Medicine Labs 05/26/24 05:30 05/26/24 05:30 Labs: Laboratory Results - last 24 hr 05/26/24 05/26/24 04:17 05:30 WBC 18.3 H RBC 3.52 L Hgb 9.6 L Hct 28.3 L MCV 80 MCH 27.3 MCHC 33.9 RDW Std Deviation 50.4 H Plt Count 549 H Neut % (Auto) 81 H Lymph % (Auto) 8 L [place] % (Auto) 4 Eos % (Auto) 1 Baso % (Auto) 1 Neut # (Auto) 14.8 H Lymph # (Auto) 1.5 [place] # (Auto) 0.8 Eos # (Auto) 0.2 Baso # (Auto) 0.1 Immature Gran # (Auto) 1.07 H Absolute Nucleated RBC 0.19 H Immature Gran % 6 H Nucleated RBC % 1 H APTT 62.9 H Puncture Site Left Radial ABG pH 7.38 ABG pCO2 42 ABG pO2 81 L ABG HCO3 25 ABG O2 Saturation 97 ABG Base Excess 0 Oxygen Liter Flow 5 FiO2 21 Sodium 133 L Potassium 2.7 L* D Chloride 95 L Carbon Dioxide 23.9 Anion Gap 14 BUN 40 H Creatinine 4.2 H* D Estim Creat Clear Calc 11.4 L eGFR 11 L* BUN/Creatinine Ratio 10 L Glucose 179 H D Calculated Osmolality 280 Calcium 9.3 Corrected Calcium 9.7 Total Bilirubin 0.5 AST 15 ALT 14 Alkaline Phosphatase 129 H Total Protein 6.7 Albumin 3.5 Globulin 3.2 Albumin/Globulin Ratio 1.1 L ABG Interpretation ABG results: 05/13/24 05/15/24 05/15/24 08:29 15:28 16:03 ABG pH 7.39 7.05 L* D 7.17 L* D ABG pCO2 31 L 63 H D 45 D ABG pO2 78 L 38 L* D 84 D ABG HCO3 19 L 18 L 16 L ABG O2 Saturation 96 59 L 96 ABG Base Excess -5 L -12 L -11 L VBG pH VBG pCO2 VBG pO2 VBG Base Excess 05/16/24 05/17/24 05/18/24 04:38 04:03 04:20 ABG pH 7.28 L D 7.38 D 7.49 H D ABG pCO2 34 D 28 L 30 L ABG pO2 96 85 66 L ABG HCO3 16 L 17 L 23 ABG O2 Saturation 98 97 94 ABG Base Excess -10 L -8 L 0 VBG pH VBG pCO2 VBG pO2 VBG Base Excess 05/19/24 05/20/24 05/21/24 09:05 06:05 22:35 ABG pH 7.30 L D 7.41 D ABG pCO2 49 H D 42 ABG pO2 63 L 63 L ABG HCO3 24 27 H ABG O2 Saturation 91 93 ABG Base Excess -3 2 VBG pH 7.31 L VBG pCO2 50 VBG pO2 39 VBG Base Excess -2 05/26/24 04:17 ABG pH 7.38 ABG pCO2 42 ABG pO2 81 L ABG HCO3 25 ABG O2 Saturation 97 ABG Base Excess 0 VBG pH VBG pCO2 VBG pO2 VBG Base Excess Assessment & Plan A&P Narrative here since 05/13. so on rx a long time now. usual rx for most things is 7d. will leave on merrem thru weekend but unless collection in [facility] grows a likely pathogen, may look at cessation on Wednesday Time Spent With Patient Time: Total time spent is greater than 50% in coordination of care (as documented) at patient's floor/unit and/or counseling patient:
[2024-05-26] MEDS: FLUCONAZOLE/NS 200 MG IVPB 100 ML 100 MG IV (13:55)
[2024-05-26] MEDS: fentaNYL 25 mCg TRANSDERMAL PATCH TOP (13:55)
--- NOTE | 2024-05-26 15:17 | ESCONSULT_ITS ---
RE: SALEEM SIMON : 1955 DATE OF CONSULTATION: 05/26/2024 REFERRING PHYSICIAN: Michel See MD and ICU REASON FOR CONSULTATION: positive culture . HISTORY OF PRESENT ILLNESS: The patient is unfortunately a 69-year-old woman. She is in ICU and was on a ventilator for a while and is off now and seems to be doing better. She recently had abdominal drain placed where purulent material was removed from the abdomen, but was negative Gram stain. She was changed from Zosyn to Merrem per ICU, but cultures have been negative. There are no other cultures are noted. something was removed from the right neck. I do not know how the date on that one. Her abdomen is benign. Extremities are unremarkable. Neurologic exam was unremarkable. The patient is not very interactive though and so this limits the ability to get any new history. PAST MEDICAL HISTORY: As noted. She is noted to have borderline diabetes, acute kidney injury, chronic kidney disease, hypertension, and is noted to be diabetic with an A1c of 6.3 on arrival. She has hypertension and some other problems as well. SURGICAL HISTORY: As noted. She has had some procedures since admission. ALLERGIES: NONE NOTED. IMMUNIZATIONS: Unavailable. FAMILY HISTORY: Noncontributory. SOCIAL HISTORY: Noncontributory. PHYSICAL EXAMINATION: generally benign but hx limited. ASSESSMENT: 1. Abdominal abscess. 2. History of gastric ulcers. 3. Acute kidney injury on chronic kidney disease. 4. Diabetes, A1c 6.3. 5. Hypertension. 6. Other problems as noted. RECOMMENDATIONS: I am going to leave her on IV Merrem and IV fluconazole for now. I will probably check back on her Wednesday. I may stop both on Wednesday unless something has grown from the culture. Gram stain looks to be pretty nonspecific and suggested more of a fluid collection that may account for the white count by itself. DT: 12:01:24 TT: 13:56:00 Ref: [id number] - TID: [id number] MTDD
--- NOTE | 2024-05-26 15:28 | PC.SS ---
Update: Patient participating with dialysis today.
--- NOTE | 2024-05-26 15:31 | PC.NURSE ---
bp trending down will admin PRN Albumin per MD orders and cont. to monitor
[2024-05-26] MEDS: ALBUMIN HUMAN 25% IVPB 25 GM/100 ML BTL IV (15:32)
--- NOTE | 2024-05-26 15:41 | ESCONSULT_ITS ---
<Statement entered by Lonnie Horn MD - 05/28/24 17:23> pt seen with resident. all findings confirmed HPI Data of Consult Requesting Physician: Alexsander Murguia MD Admitting Provider: Michel See MD Attending Provider: Alexsander Murguia MD Primary Care Provider: Gagan Catherine Consult Narrative Reason for consult: Abdominal abscess, on merem History of present illness: Patient is a 69-year-old female with history of hypertension, diabetes, CKD stage III, and gastric ulcers who presented to the ED after being found unconscious on the floor, was admitted for management of sepsis secondary to pneumonia, was started on azithromycin and Rocephin antibiotics at the time. During hospital course, rapid response was called for worsening chest pain, CT angiogram was completed revealing pneumoperitoneum with multiple air droplets adjacent to it within wall of stomach, raising suspicion for gastric perforation. General surgery was consulted and completed exploratory laparotomy with repair of perforated gastric ulcer, postoperatively patient was maintained on mechanical ventilation and upgrade to the ICU where patient required vasopressor support for distributive/septic shock. Additionally, patient was started on IV zosyn at this time. On 05/25, abdominal/pelvis CT was completed revealing loculated fluid collections posterior to the stomach, 5 cm, 6 cm raising suspicion for pancreatic pseudocyst. That same day, CT guided percutaneous placement drainage catheter into the cystic mass retroareolar gastric region was completed, with 100 cc turbid fluid in drainage bag at completion of the procedure. Given concerns of abdominal abscess and fluid collection, patient was started on Merrem and infectious disease was consulted at that time. Past medical history: As noted above Family history: Noncontributory Social history: Noncontributory Vaccination history: Unavailable cc:: cc: Alexsander Murguia MD Exam Vital Signs Temp Pulse Resp BP Pulse Ox O2 Del Method O2 Flow Rate 97.6 F 85 18 95/60 98 Nasal Cannula 2 05/26/24 14:48 05/26/24 15:38 05/26/24 14:48 05/26/24 15:38 05/26/24 14:48 05/26/24 09:00 05/26/24 14:48 FiO2 35 05/25/24 12:31 Narrative Exam General: Awake and alert, not answering questions however HEENT: Atraumatic/normocephalic, TRELL Heart: RRR, S1 and S2 without clicks or murmurs Lungs: Clear on auscultation bilaterally, no difficulty breathing Abdomen: Soft, nontender. Skin: Intact, no cyanosis or edema noted Neuro: No focal neurological deficits noted on appearance however cranial nerves not individually tested Results Labs 05/26/24 05:30 05/26/24 05:30 Labs: Short CBC 05/26/24 Range/Units 05:30 WBC 18.3 H (3.6-11.0) Thou/mm3 Hgb 9.6 L (12.0-16.0) g/dL Hct 28.3 L (36.0-46.0) % Plt Count 549 H (140-440) Thou/mm3 BMP 05/26/24 05:30 Sodium 133 L Potassium 2.7 L* D Chloride 95 L Carbon Dioxide 23.9 BUN 40 H Creatinine 4.2 H* D Glucose 179 H D Calcium 9.3 Liver Function 05/26/24 Range/Units 05:30 Total Bilirubin 0.5 (0.3-1.2) mg/dL AST 15 (0-34) U/L ALT 14 (10-49) U/L Alkaline Phosphatase 129 H (46-116) U/L Albumin 3.5 (3.4-4.8) gm/dL ABG Interpretation ABG results: 05/13/24 05/15/24 05/15/24 08:29 15:28 16:03 ABG pH 7.39 7.05 L* D 7.17 L* D ABG pCO2 31 L 63 H D 45 D ABG pO2 78 L 38 L* D 84 D ABG HCO3 19 L 18 L 16 L ABG O2 Saturation 96 59 L 96 ABG Base Excess -5 L -12 L -11 L VBG pH VBG pCO2 VBG pO2 VBG Base Excess 05/16/24 05/17/24 05/18/24 04:38 04:03 04:20 ABG pH 7.28 L D 7.38 D 7.49 H D ABG pCO2 34 D 28 L 30 L ABG pO2 96 85 66 L ABG HCO3 16 L 17 L 23 ABG O2 Saturation 98 97 94 ABG Base Excess -10 L -8 L 0 VBG pH VBG pCO2 VBG pO2 VBG Base Excess 05/19/24 05/20/2405/21/24 09:05 06:05 22:35 ABG pH 7.30 L D 7.41 D ABG pCO2 49 H D 42 ABG pO2 63 L 63 L ABG HCO3 24 27 H ABG O2 Saturation 91 93 ABG Base Excess -3 2 VBG pH 7.31 L VBG pCO2 50 VBG pO2 39 VBG Base Excess -2 05/26/24 04:17 ABG pH 7.38 ABG pCO2 42 ABG pO2 81 L ABG HCO3 25 ABG O2 Saturation 97 ABG Base Excess 0 VBG pH VBG pCO2 VBG pO2 VBG Base Excess Quality Measures Quality Measures VTE prophylaxis (Heparin) Advance care planning discussed with:: other Medications Home Medications and Allergies Home Medications ?Medication ?Instructions ?Recorded ?Confirmed ?Type amlodipine 10 mg tablet 10 mg PO QDAY 11/16/23 05/13/24 History atorvastatin 80 mg tablet 80 mg PO QPM 11/16/23 05/13/24 History ergocalciferol (vitamin D2) 1,250 1,250 mcg PO QWEEK 11/16/23 05/13/24 History mcg (50,000 unit) capsule (Vitamin D2) glipizide 2.5 mg tablet 2.5 mg PO QDAY 11/16/23 05/13/24 History sitagliptin phosphate 100 mg 100 mg PO QDAY 11/16/23 05/13/24 History tablet (Januvia) folic acid 1 mg tablet 1 mg PO QDAY 05/13/24 05/13/24 History Allergies Allergy/AdvReac Type Severity Reaction Status Date / Time No Known Allergies Allergy Verified 11/19/23 18:02 Visit Medications Albuterol/Ipratropium (Albuterol/Ipratropium (Duoneb) Rt Jimena 3 Ml Nebu) 3 ml INH Q6HRRT PRN PRN Reason: SOB or Wheeze Stop: 06/19/24 12:59 Last Admin: 05/24/24 18:55 Dose: 3 ml Dextrose (Dextrose 50%-Water Inj 50 Ml Syringe) 25 ml IV Q15MIN PRN PRN Reason: BG 50-70 responsive npo pt Stop: 06/23/24 15:42 Dextrose (Dextrose 50%-Water Inj 50 Ml Syringe) 50 ml IV Q15MIN PRN PRN Reason: BG <50 OR BG <70 & pt unresponsive Stop: 06/23/24 15:42 Fentanyl Citrate (Fentanyl Cit Inj 50 Mcg/Ml Amp 2ml) 25 mcg IVP Q2HR PRN PRN Reason: Pain 7-10 Stop: 05/31/24 13:59 Glucagon (Glucagon Inj 1 Mg Vial) 1 mg IM Q15MIN PRN PRN Reason: BG <70, and no IV access Heparin Sodium (Porcine) (Heparin Sod Inj 1000 Unit/Ml Vial 10 Ml) 2,500 unit INDWELLCAT PRN PRN PRN Reason: DIALYSIS Stop: 05/31/24 15:51 Last Admin: 05/25/24 12:17 Dose: 2,500 unit Hydromorphone HCl (Hydromorphone Inj 2 Mg/Ml Vial) 0.25 mg IVP Q6H PRN PRN Reason: Pain 4-10 Stop: 05/29/24 15:31 Last Admin: 05/25/24 18:15 Dose: 0.25 mg Fluconazole (Diflucan/Ns Ivpb) 100 mls @ 100 mls/hr IV QDAY@1400 ANGELICA Stop: 05/28/24 13:59 Last Admin: 05/26/24 13:55 Dose: 100 mls/hr Norepinephrine/Dextrose (Levophed In D5w 8mg/250ml) 8 mg in 250 mls @ 7.35 mls/hr IV .Q24H PRN; Protocol PRN Reason: PER PROTOCOL Stop: 06/19/24 06:55 Last Titration: 05/24/24 12:39 Dose: 0 mcg/kg/min, 0 mls/hr Heparin Sodium/Dextrose (Heparin In D5w Ivpb) 25,000 unit in 250 mls @ 10.212 mls/hr IV .Q24H ANGELICA; Protocol Stop: 06/06/24 18:14 Last Admin: 05/26/24 02:10 Dose: 12 units/kg/hr, 10.212 mls/hr Phenylephrine HCl 40 mg/ (Sodium Chloride) 100 mls @ 6.128 mls/hr IV .[id number] PRN; Protocol PRN Reason: Per Sepsis Protocol Stop: 06/23/24 10:52 Last Titration: 05/26/24 12:32 Dose: 0.15 mcg/kg/min, 1.838 mls/hr Amiodarone HCl/Dextrose (Nexterone Ivpb) 360 mg in 200 mls @ 16.667 mls/hr IV .Q12H [facility] Stop: 05/28/24 13:31 Last Admin: 05/26/24 15:08 Dose: 16.667 mls/hr Albumin Human (Albuminar-25 Ivpb) 25 gm in 100 mls @ 100 mls/min IV PRN PRN PRN Reason: DIALYSIS Last Admin: 05/26/24 15:32 Dose: 100 mls/min Meropenem 500 mg/ Sodium (Chloride) 50 mls @ 100 mls/hr IV QDAY [facility] Stop: 06/01/24 10:59 Last Admin: 05/26/24 09:03 Dose: 100 mls/hr Amino Acids (Clinimix 5/20) 1,000 mls @ 40 mls/hr IV QDAY@1800 ANGELICA Stop: 05/26/24 17:59 Last Admin: 05/25/24 17:51 Dose: 40 mls/hr Fat Emulsion-[place] Oil/Soybean Oil (Clinopid 20% Iv) 500 mls @ 32 mls/hr IV TuSa@1800 ANGELICA Stop: 06/26/24 17:59 Amino Acids (Clinimix 5/20) 2,000 mls @ 40 mls/hr IV QDAY@1800 ANGELICA Stop: 05/27/24 17:59 Acetaminophen (Ofirmev Inj) 1,000 mg in 100 mls @ 250 mls/hr IV Q6HR PRN PRN Reason: abdominal pain Stop: 05/27/24 06:23 Insulin Glargine (Insulin Glargine (Lantus) 5 Unit/0.05 Ml (Per 5 Units)) 12 unit SC QDAY [facility] Stop: 06/24/24 08:59 Last Admin: 05/26/24 08:59 Dose: 12 unit Insulin Human Lispro (Insulin Lispro (Admelog) 1 Unit/0.01 Ml Unit) 0 unit SC Q6HR [facility]; Protocol Stop: 06/23/24 17:59 Last Admin: 05/26/24 12:11 Dose: 4 unit Ondansetron HCl (Ondansetron Inj 2 Mg/Ml Inj 2 Ml) 4 mg IV Q6H PRN; Protocol PRN Reason: NAUSEA OR VOMITING Stop: 06/12/24 11:57 Last Admin: 05/14/24 12:31 Dose: 4 mg Pantoprazole Sodium (Pantoprazole Inj 40 Mg Vial) 40 mg IVP BID ANGELICA Stop: 06/14/24 20:59 Last Admin: 05/26/24 08:53 Dose: 40 mg Pharmacy Consult (Pharmacy Renal Dose Adjustment 1 Ea) 1 each XX PRN PRN PRN Reason: CONSULT Stop: 06/15/24 10:26 Sodium Chloride (Sodium Chloride Rt Jimena 0.9% 3 Ml Nebu) 3 ml INH PRN PRN PRN Reason: SOLN Stop: 06/23/24 18:59 Discontinued Medications Acetaminophen (Acetaminophen 325 Mg Tablet) 650 mg PO Q6H PRN PRN Reason: Fever >101.5 Stop: 06/12/24 11:57 Acetaminophen (Acetaminophen 325 Mg Tablet) 650 mg PO Q6H PRN PRN Reason: PAIN SCALE 1-3 (mild Stop: 06/12/24 11:57 Last Admin: 05/13/24 17:59 Dose: 650 mg Hydrocodone Bitart/Acetaminophen (Hydrocodone/Apap 5/325 Tablet) 1 tab PO X1 ONE Stop: 05/18/24 15:43 Last Admin: 05/18/24 15:57 Dose: 1 tab Hydrocodone Bitart/Acetaminophen (Hydrocodone/Apap 10/325 Tab) 1 tab PO Q4HR PRN PRN Reason: Pain 4-7 Stop: 05/23/24 18:01 Last Admin: 05/18/24 23:40 Dose: 1 tab Hydrocodone Bitart/Acetaminophen (Hydrocodone/Apap 5/325 Tablet) 1 tab PO Q4HR PRN PRN Reason: PAIN SCALE 1-3 (mild Stop: 05/24/24 14:43 Last Admin: 05/20/24 04:27 Dose: 1 tab Amiodarone HCl (Amiodarone Hcl 200 Mg Tablet) 200 mg PO BID [facility] Stop: 06/15/24 11:59 Last Admin: 05/19/24 20:44 Dose: 200 mg Azithromycin (Azithromycin 250 Mg Tablet) 500 mg PO QDAY [facility] Stop: 05/21/24 08:59 Bumetanide (Bumetanide Inj 0.25 Mg/Ml Vial 4 Ml) 1 mg IVP X1 ONE Stop: 05/13/24 13:11 Last Admin: 05/13/24 15:00 Dose: 1 mg Dextrose (Dextrose 50%-Water Inj 50 Ml Syringe) 50 ml IV X1 ONE Stop: 05/19/24 08:33 Last Admin: 05/19/24 08:37 Dose: 50 ml Dextrose (Dextrose 50%-Water Inj 50 Ml Syringe) 25 ml IV Q15MIN PRN PRN Reason: BG 50-70 responsive npo pt Stop: 06/22/24 12:13 Dextrose (Dextrose 50%-Water Inj 50 Ml Syringe) 50 ml IV Q15MIN PRN PRN Reason: BG <50 OR BG <70 & pt unresponsive Stop: 06/22/24 12:13 Epoetin Chang (Epoetin Chang-Epbx Inj 10,000 Unit/Ml Vial (Esrd)) 10,000 unit SC X1 ONE Stop: 05/22/24 09:01 Last Admin: 05/22/24 08:36 Dose: 10,000 unit Fentanyl (Fentanyl 25 Mcg Transdermal Patch) 25 mcg TOP X1 ONE; Protocol Stop: 05/26/24 13:21 Last Admin: 05/26/24 13:55 Dose: 25 mcg Fentanyl Citrate (Fentanyl Cit Inj 50 Mcg/Ml Amp 2ml) 25 mcg IVP X1 ONE Stop: 05/16/24 11:16 Last Admin: 05/16/24 11:18 Dose: 25 mcg Fentanyl Citrate (Fentanyl Cit Inj 50 Mcg/Ml Amp 2ml) 50 mcg IVP X1 ONE Stop: 05/16/24 11:52 Last Admin: 05/16/24 12:04 Dose: Not Given Fentanyl Citrate (Fentanyl Cit Inj 50 Mcg/Ml Amp 2ml) 50 mcg IVP Q2M PRN PRN Reason: PAIN Stop: 05/25/24 16:40 Last Admin: 05/25/24 14:40 Dose: 50 mcg Furosemide (Furosemide Inj 10 Mg/Ml 4ml Vial) 40 mg IVP X1 ONE Stop: 05/15/24 04:56 Last Admin: 05/15/24 07:20 Dose: Not Given Glucagon (Glucagon Inj 1 Mg Vial) 1 mg IM Q15MIN PRN PRN Reason: BG <70, and no IV access Heparin Sodium (Beef Lung) (Heparin Sod Lock Syr 100 Unit/Ml) 500 unit STFIELD X1 ONE Stop: 05/22/24 14:27 Last Admin: 05/22/24 14:27 Dose: 500 unit Heparin Sodium (Porcine) (Heparin Sod Inj 5000 Unit/Ml Vial) 5,000 unit SC Q8HR ANGELICA Stop: 05/27/24 13:59 Last Admin: 05/13/24 21:12 Dose: 5,000 unit Heparin Sodium (Porcine) (Heparin Sod Inj 5000 Unit/Ml Vial) 5,000 unit SC Q8HR ANGELICA Stop: 05/30/24 13:59 Last Admin: 05/23/24 05:49 Dose: 5,000 unit Heparin Sodium (Porcine) (Heparin Sod Inj 5000 Unit/Ml Vial) 2,000 unit IV X1 ONE; Protocol Stop: 05/23/24 18:13 Last Admin: 05/23/24 20:08 Dose: 2,000 unit Heparin Sodium (Porcine) (Heparin Sod Inj 5000 Unit/Ml Vial) 2,000 unit IVP X1 ONE Stop: 05/24/24 17:33 Last Admin: 05/24/24 17:41 Dose: 2,000 unit Hydromorphone HCl (Hydromorphone Inj 2 Mg/Ml Vial) 0.25 mg IVP X1 ONE Stop: 05/14/24 12:46 Last Admin: 05/14/24 13:41 Dose: 0.25 mg Hydromorphone HCl (Hydromorphone Inj 2 Mg/Ml Vial) 0.5 mg IVP Q6HR PRN PRN Reason: PAIN SCALE 7-10 (Severe Stop: 05/19/24 15:34 Last Admin: 05/18/24 14:53 Dose: 0.5 mg Hydromorphone HCl (Hydromorphone Inj 2 Mg/Ml Vial) 1 mg IVP Q6H PRN PRN Reason: pain 8-10 Stop: 05/23/24 18:01 Last Admin: 05/19/24 02:38 Dose: 1 mg Hydromorphone HCl (Hydromorphone Inj 2 Mg/Ml Vial) 0.25 mg IVP Q4HR PRN PRN Reason: PAIN SCALE 4-6 (Moderate Stop: 05/24/24 14:37 Last Admin: 05/19/24 22:11 Dose: 0.25 mg Hydromorphone HCl (Hydromorphone Inj 2 Mg/Ml Vial) 0.5 mg IVP Q6H PRN PRN Reason: PAIN SCALE 7-10 (Severe Stop: 05/24/24 14:37 Last Admin: 05/20/24 22:59 Dose: 0.5 mg Hydromorphone HCl (Hydromorphone Inj 2 Mg/Ml Vial) 0.25 mg IVP Q6H PRN PRN Reason: PAIN SCALE 4-10(Mod-Sev Stop: 05/24/24 14:37 Hydromorphone HCl (Hydromorphone Inj 2 Mg/Ml Vial) 0.25 mg IVP Q6H PRN PRN Reason: PAIN SCALE 4-6 (Moderate Stop: 05/24/24 14:37 Last Admin: 05/24/24 10:37 Dose: 0.25 mg Hydromorphone HCl (Hydromorphone Inj 2 Mg/Ml Vial) 1 mg IVP Q6H PRN PRN Reason: Pain 4-10 Stop: 05/29/24 15:31 Hydroxyzine HCl (Hydroxyzine Hcl 25 Mg Tablet) 25 mg PO X1 ONE Stop: 05/15/24 05:38 Last Admin: 05/15/24 06:01 Dose: 25 mg Sodium Chloride (Ns) 1,000 mls @ 999 mls/hr IV .Q1H1M ONE Stop: 05/13/24 06:11 Last Infusion: 05/13/24 06:20 Dose: Infused Ceftriaxone Sodium 1,000 mg/ (Sodium Chloride) 50 mls @ 100 mls/hr IV X1 ONE Stop: 05/13/24 06:23 Last Infusion: 05/13/24 07:05 Dose: Infused Azithromycin 500 mg/ Sodium (Chloride) 250 mls @ 250 mls/hr IV X1 ONE Stop: 05/13/24 06:53 Last Infusion: 05/13/24 07:35 Dose: Infused Ceftriaxone Sodium/Dextrose (Rocephin/D5w 1gm Iv Premix) 50 mls @ 100 mls/hr IV QDAY [facility] Stop: 05/20/24 12:03 Last Admin: 05/13/24 12:20 Dose: Not Given Azithromycin 500 mg/ Sodium (Chloride) 250 mls @ 250 mls/hr IV QDAY [facility] Stop: 05/20/24 12:03 Last Admin: 05/13/24 12:20 Dose: Not Given Ceftriaxone Sodium/Dextrose (Rocephin/D5w 1gm Iv Premix) 50 mls @ 100 mls/hr IV QDAY [facility] Stop: 05/21/24 08:59 Sodium Chloride (Ns) 1,000 mls @ 999 mls/hr IV .Q1H1M ONE Stop: 05/13/24 13:47 Last Infusion: 05/13/24 13:55 Dose: Infused Ceftriaxone Sodium/Dextrose (Rocephin/D5w 1gm Iv Premix) 50 mls @ 100 mls/hr IV QDAY ANGELICA Stop: 05/21/24 08:59 Last Admin: 05/14/24 08:37 Dose: 100 mls/hr Azithromycin 500 mg/ Sodium (Chloride) 250 mls @ 250 mls/hr IV QDAY ANGELICA; Protocol Stop: 05/21/24 08:59 Last Infusion: 05/20/24 10:03 Dose: Infused Azithromycin 500 mg/ Sodium (Chloride) 250 mls @ 250 mls/hr IV X1 ONE; Protocol Stop: 05/13/24 14:14 Pantoprazole Sodium (Protonix/Ns 80mg Iv Premix) 80 mg in 100 mls @ 10 mls/hr IV Q10H ANGELICA Stop: 05/17/24 06:03 Last Admin: 05/15/24 20:22 Dose: 10 mls/hr Potassium Chloride (Kcl Ivpb) 10 meq in 100 mls @ 100 mls/hr IV Q1H ANGELICA Stop: 05/14/24 12:46 Last Admin: 05/14/24 11:48 Dose: Not Given Sodium Chloride (Ns) 500 mls @ 999 mls/hr IV .Q31M ONE Stop: 05/15/24 00:57 Last Infusion: 05/15/24 12:00 Dose: Infused Sodium Chloride (Ns) 500 mls @ 999 mls/hr IV .Q31M ONE Stop: 05/15/24 01:49 Last Admin: 05/15/24 01:32 Dose: 999 mls/hr Albumin Human (Albuminar-25 Ivpb) 12.5 gm in 50 mls @ 50 mls/hr IV X1 ONE Stop: 05/15/24 05:56 Last Admin: 05/17/24 02:10 Dose: Not Given Albumin Human (Albuminar-25 Ivpb) 25 gm in 100 mls @ 100 mls/hr IV X1 ONE Stop: 05/15/24 05:59 Last Admin: 05/15/24 07:27 Dose: 100 mls/hr Piperacillin/Tazobactam/Dextrose (Zosyn) 50 mls @ 12.5 mls/hr IV Q8HR ANGELICA; Protocol Stop: 05/22/24 05:59 Last Infusion: 05/16/24 21:00 Dose: Infused Sodium Chloride (Ns) 500 mls @ 999 mls/hr IV .Q31M ONE Stop: 05/15/24 08:12 Last Admin: 05/15/24 07:43 Dose: 999 mls/hr Sodium Chloride (Ns) 1,000 mls @ 999 mls/hr IV .Q1H1M ONE Stop: 05/15/24 08:53 Last Admin: 05/15/24 15:50 Dose: Not Given Lactated Ringer's (Lactated Ringers) 1,000 mls @ 999 mls/hr IV .Q1H1M ONE Stop: 05/15/24 11:22 Last Infusion: 05/15/24 11:37 Dose: Infused Propofol (Diprivan Ivpb) 1,000 mg in 100 mls @ 2.466 mls/hr IV .Q24H PRN; Protocol PRN Reason: PER PROTOCOL Stop: 06/14/24 10:27 Last Titration: 05/18/24 12:00 Dose: 0 mcg/kg/min, 0 mls/hr Fentanyl Citrate (Sublimaze Inj 2,500 Mcg/250 Ml Bag) 2,500 mcg in 250 mls @ 2.5 mls/hr IV .Q24H PRN; Protocol PRN Reason: PER PROTOCOL Stop: 05/20/24 10:27 Last Titration: 05/18/24 12:29 Dose: 0 mcg/hr, 0 mls/hr Norepinephrine Bitartrate (Levophed In Ns 16mg/250ml) 16 mg in 250 mls @ 3.853 mls/hr IV .Q24H PRN; Protocol PRN Reason: PER protocol Stop: 06/14/24 10:28 Last Titration: 05/18/24 06:00 Dose: 0 mcg/kg/min, 0 mls/hr Vasopressin/Sodium Chloride (Vasostrict/Ns Ivpb) 20 unit in 100 mls @ 9 mls/hr IV .Q11H7M PRN; Protocol PRN Reason: PER PROTOCOL Stop: 06/14/24 17:55 Last Titration: 05/17/24 22:30 Dose: 0 unit/min, 0 mls/hr Magnesium Sulfate (Magnesium Sulfate Ivpb) 2 gm in 50 mls @ 25 mls/hr IV X1 ONE Stop: 05/16/24 13:25 Last Infusion: 05/16/24 21:50 Dose: Infused Amiodarone HCl/Dextrose (Nexterone Ivpb) 150 mg in 100 mls @ 600 mls/hr IV .Q10M ONE Stop: 05/16/24 11:37 Last Infusion: 05/17/24 07:32 Dose: Infused Amiodarone HCl/Dextrose (Nexterone Ivpb) 360 mg in 200 mls @ 33.333 mls/hr IV .Q6H ONE Stop: 05/16/24 17:26 Last Infusion: 05/16/24 21:50 Dose: Infused Amiodarone HCl/Dextrose (Nexterone Ivpb) 360 mg in 200 mls @ 16.667 mls/hr IV .Q12H [facility] Stop: 05/17/24 17:25 Last Infusion: 05/17/24 18:05 Dose: Infused Piperacillin Sod/Tazobactam (Sod 4.5 gm/ Sodium Chloride) 100 mls @ 200 mls/hr IV Q12HR [facility] Stop: 05/23/24 21:59 Last Admin: 05/18/24 19:18 Dose: Not Given Albumin Human (Albuminar-25 Ivpb) 25 gm in 100 mls @ 100 mls/min IV PRN PRN PRN Reason: DIALYSIS Stop: 05/20/24 15:51 Last Infusion: 05/20/24 08:50 Dose: Infused Piperacillin Sod/Tazobactam (Sod 4.5 gm/ Sodium Chloride) 100 mls @ 200 mls/hr IV Q12HR ANGELICA Stop: 05/25/24 14:14 Piperacillin Sod/Tazobactam (Sod 4.5 gm/ Sodium Chloride) 100 mls @ 200 mls/hr IV Q12HR ANGELICA Stop: 05/25/24 14:29 Last Infusion: 05/20/24 10:03 Dose: Infused Norepinephrine/Dextrose (Levophed In D5w 8mg/250ml) 8 mg in 250 mls @ 7.866 mls/hr IV .Q24H PRN; Protocol PRN Reason: PER PROTOCOL Stop: 06/18/24 09:31 Last Titration: 05/20/24 09:00 Dose: Infused Acetaminophen (Ofirmev Inj) 1,000 mg in 100 mls @ 250 mls/hr IV Q6HR ANGELICA Stop: 05/20/24 12:23 Last Admin: 05/19/24 15:15 Dose: Not Given Amiodarone HCl/Dextrose (Nexterone Ivpb) 150 mg in 100 mls @ 600 mls/hr IV .Q10M ONE Stop: 05/20/24 05:46 Last Infusion: 05/20/24 07:04 Dose: Infused Amiodarone HCl/Dextrose (Nexterone Ivpb) 360 mg in 200 mls @ 33.333 mls/hr IV .Q6H ONE Stop: 05/20/24 11:36 Last Admin: 05/20/24 07:04 Dose: Not Given Amiodarone HCl/Dextrose (Nexterone Ivpb) 360 mg in 200 mls @ 16.667 mls/hr IV .Q12H ANGELICA Stop: 05/21/24 05:36 Last Admin: 05/20/24 07:04 Dose: Not Given Sodium Chloride (Ns) 1,000 mls @ 999 mls/hr IV .Q1H1M ONE Stop: 05/20/24 06:38 Last Infusion: 05/20/24 06:28 Dose: 0 mls/hr Amiodarone HCl/Dextrose (Nexterone Ivpb) 360 mg in 200 mls @ 33.333 mls/hr IV .Q6H ONE Stop: 05/20/24 11:59 Last Infusion: 05/20/24 11:57 Dose: Infused Amiodarone HCl/Dextrose (Nexterone Ivpb) 360 mg in 200 mls @ 16.667 mls/hr IV .Q12H ANGELICA Stop: 05/21/24 11:59 Last Admin: 05/21/24 00:09 Dose: 16.667 mls/hr Norepinephrine/Dextrose (Levophed In D5w 8mg/250ml) 8 mg in 250 mls @ 33.586 mls/hr IV .Q7H27M PRN; Protocol PRN Reason: PER PROTOCOL Stop: 06/19/24 06:33 Last Titration: 05/20/24 08:35 Dose: 0 mcg/kg/min, 0 mls/hr Norepinephrine/Dextrose (Levophed In D5w 8mg/250ml) 8 mg in 250 mls @ 7.35 mls/hr IV .Q24H PRN; Protocol PRN Reason: PER PROTOCOL Stop: 06/19/24 06:55 Last Titration: 05/20/24 18:00 Dose: 0.07 mcg/kg/min, 10.29 mls/hr Piperacillin/Tazobactam/Dextrose (Zosyn) 50 mls @ 12.5 mls/hr IV Q8HR ANGELICA Stop: 05/27/24 13:59 Last Admin: 05/25/24 09:39 Dose: Not Given Fluconazole (Diflucan/Ns Ivpb) 400 mg in 200 mls @ 100 mls/hr IV X1 ONE Stop: 05/20/24 17:44 Last Infusion: 05/20/24 18:14 Dose: Infused Albumin Human (Albuminar-25 Ivpb) 25 gm in 100 mls @ 100 mls/min IV PRN PRN PRN Reason: DIALYSIS Last Admin: 05/25/24 09:23 Dose: 100 mls/min Piperacillin/Tazobactam/Dextrose (Zosyn) 50 mls @ 12.5 mls/hr IV Q12HR ANGELICA Stop: 05/27/24 13:59 Last Admin: 05/25/24 10:52 Dose: Not Given Dextrose (D10w 1000 Ml) 1,000 mls @ 25 mls/hr IV .Q24H ANGELICA Stop: 05/22/24 12:59 Last Admin: 05/21/24 15:31 Dose: 25 mls/hr Amiodarone HCl/Dextrose (Nexterone Ivpb) 360 mg in 200 mls @ 16.667 mls/hr IV .Q12H ANGELICA Stop: 05/22/24 16:14 Last Admin: 05/22/24 04:14 Dose: 16.667 mls/hr Amiodarone HCl/Dextrose (Nexterone Ivpb) 150 mg in 100 mls @ 600 mls/hr IV .Q10M ONE Stop: 05/22/24 09:09 Last Admin: 05/22/24 09:47 Dose: 600 mls/hr Fat Emulsion-[place] Oil/Soybean Oil (Clinopid 20% Iv) 500 mls @ 32 mls/hr IV MoWeFr ANGELICA Stop: 06/21/24 17:59 Last Infusion: 05/24/24 20:00 Dose: 0 mls/hr Thiamine HCl 100 mg/ Amino (Acids) 1,001 mls @ 30 mls/hr IV X1 ONE Stop: 05/23/24 17:59 Last Admin: 05/22/24 15:05 Dose: 30 mls/hr Acetaminophen (Ofirmev Inj) 1,000 mg in 100 mls @ 250 mls/hr IV Q6H [facility]GELICA Stop: 05/23/24 11:39 Last Admin: 05/23/24 10:46 Dose: 250 mls/hr Amiodarone HCl/Dextrose (Nexterone Ivpb) 360 mg in 200 mls @ 16.667 mls/hr IV .Q12H [facility] Stop: 05/23/24 17:35 Last Admin: 05/23/24 07:00 Dose: 16.667 mls/hr Thiamine HCl 100 mg/ Potassium (Chloride 20 meq/ Amino Acids) 2,011 mls @ 50 mls/hr IV QDAY@1800 [facility]ICA Stop: 05/24/24 17:59 Last Infusion: 05/24/24 20:00 Dose: 0 mls/hr Amiodarone HCl/Dextrose (Nexterone Ivpb) 360 mg in 200 mls @ 33.333 mls/hr IV .Q6H ONE Stop: 05/24/24 16:20 Last Admin: 05/24/24 10:41 Dose: 33.333 mls/hr Amiodarone HCl/Dextrose (Nexterone Ivpb) 360 mg in 200 mls @ 16.667 mls/hr IV .Q12H [facility] Stop: 05/25/24 16:19 Amiodarone HCl/Dextrose (Nexterone Ivpb) 150 mg in 100 mls @ 600 mls/hr IV .Q10M ONE Stop: 05/24/24 11:01 Last Admin: 05/24/24 11:00 Dose: 600 mls/hr Potassium Chloride (Kcl Ivpb) 20 meq in 100 mls @ 50 mls/hr IV X1 ONE Stop: 05/24/24 12:55 Last Admin: 05/24/24 12:27 Dose: 50 mls/hr Thiamine HCl 100 mg/ Amino (Acids) 2,001 mls @ 50 mls/hr IV QDAY@1800 [facility] Stop: 06/23/24 17:59 Last Admin: 05/24/24 18:22 Dose: 50 mls/hr Sodium Chloride (Ns) 100 mls @ 20 mls/hr IV .Q5H [facility] Stop: 05/25/24 19:34 Last Admin: 05/25/24 14:35 Dose: 20 mls/hr Acetaminophen (Ofirmev Inj) 1,000 mg in 100 mls @ 250 mls/hr IV Q6HR PRN PRN Reason: abdominal pain Stop: 05/26/24 12:23 Last Admin: 05/26/24 04:20 Dose: 250 mls/hr Potassium Chloride (Kcl Ivpb) 10 meq in 100 mls @ 100 mls/hr IV Q1H [facility] Stop: 05/26/24 11:08 Last Admin: 05/26/24 11:10 Dose: Not Given Potassium Chloride (Kcl Ivpb) 20 meq in 100 mls @ 50 mls/hr IV X1 ONE Stop: 05/26/24 10:13 Last Infusion: 05/26/24 11:10 Dose: Infused Potassium Chloride (Kcl Ivpb) 20 meq in 100 mls @ 50 mls/hr IV Q2H [facility] Stop: 05/26/24 14:13 Last Admin: 05/26/24 11:12 Dose: 50 mls/hr Amino Acids (Clinimix 5/20) 1,000 mls @ 40 mls/hr IV QDAY@1800 [facility] Stop: 05/27/24 17:59 Insulin Glargine (Insulin Glargine (Lantus) 5 Unit/0.05 Ml (Per 5 Units)) 8 unit SC QDAY [facility] Stop: 06/23/24 13:29 Last Admin: 05/24/24 14:05 Dose: 8 unit Insulin Human Regular (Insulin Hum Regular 1 Unit/0.01 Ml (Per Unit)) 5 unit IV X1 ONE Stop: 05/13/24 07:08 Last Admin: 05/13/24 09:42 Dose: Not Given Insulin Human Regular (Insulin Hum Regular 1 Unit/0.01 Ml (Per Unit)) 0 unit SC ACHS [facility]; Protocol Stop: 06/22/24 16:59 Insulin Human Regular (Insulin Hum Regular 1 Unit/0.01 Ml (Per Unit)) 0 unit SC Q6H [facility]; Protocol Stop: 06/22/24 12:29 Last Admin: 05/24/24 12:50 Dose: 6 unit Levalbuterol HCl (Levalbuterol Rt 1.25 Mg/0.5 Ml Nebu) 5 mg INH X1 ONE Stop: 05/24/24 19:01 Last Admin: 05/24/24 19:17 Dose: 5 mg Lidocaine (Lidocaine 5% 1 Patch) 1 patch TOP X1 ONE Stop: 05/14/24 03:21 Last Admin: 05/14/24 03:28 Dose: 1 patch Lidocaine (Lidocaine 5% 1 Patch) 1 patch TOP X1 ONE Stop: 05/26/24 00:20 Last Admin: 05/26/24 02:52 Dose: 1 patch Lidocaine HCl (Lidocaine Inj Pf 1% 30 Ml Vial) 4 ml INFL X1 ONE Stop: 05/22/24 14:27 Last Admin: 05/22/24 14:27 Dose: 4 ml Lidocaine HCl (Lidocaine Inj Pf 1% 5 Ml Vial) 30 ml INFL X1 PRN PRN Reason: LOCAL ANESTHESIA Stop: 05/25/24 17:24 Last Admin: 05/25/24 14:55 Dose: 30 ml Lorazepam (Lorazepam 2 Mg/Ml Vial) 0.5 mg IVP X1 ONE Stop: 05/23/24 02:52 Last Admin: 05/23/24 03:01 Dose: 0.5 mg Lorazepam (Lorazepam 2 Mg/Ml Vial) 0.5 mg IVP X1 ONE Stop: 05/23/24 22:16 Last Admin: 05/23/24 22:23 Dose: 0.5 mg Pantoprazole Sodium (Pantoprazole Inj 40 Mg Vial) 40 mg IVP Q12HR [facility] Stop: 06/12/24 20:59 Pantoprazole Sodium (Pantoprazole 40 Mg Tablet) 40 mg PO QDAY [facility] Stop: 06/13/24 08:59 Pantoprazole Sodium (Pantoprazole Inj 40 Mg Vial) 80 mg IV X1 ONE Stop: 05/14/24 08:03 Last Admin: 05/14/24 08:37 Dose: 80 mg Potassium Chloride (Potassium Chloride 20 Meq Tabcr) 40 meq PO X1 ONE Stop: 05/14/24 11:40 Last Admin: 05/14/24 12:18 Dose: 40 meq Potassium Chloride (Potassium Chloride 10% 20 Meq/15 Ml Udc) 40 meq GT X1 ONE Stop: 05/18/24 07:20 Last Admin: 05/18/24 19:18 Dose: Not Given Potassium Chloride (Potassium Chloride 10% 20 Meq/15 Ml Udc) 40 meq NG X1 ONE Stop: 05/18/24 07:20 Last Admin: 05/18/24 08:11 Dose: 40 meq Potassium Chloride (Potassium Chloride 10% 20 Meq/15 Ml Udc) 40 meq GT X1 ONE Stop: 05/26/24 07:09 Last Admin: 05/26/24 11:09 Dose: Not Given Sennosides (Senna Tablet) 1 tab PO QDAY PRN; Protocol PRN Reason: constipation Stop: 06/12/24 11:57 Sodium Bicarbonate (Sodium Bicarb Inj 8.4% 1 Meq/Ml Vial 50 Ml) 50 meq IV X1 ONE Stop: 05/16/24 16:01 Last Admin: 05/16/24 16:45 Dose: Not Given Sodium Bicarbonate (Sodium Bicarb Inj 8.4% Syr 50 Ml Syringe) 50 ml IV X1 ONE Stop: 05/16/24 16:23 Last Admin: 05/16/24 16:32 Dose: 50 ml Sucralfate (Sucralfate Susp 1 Gm/10 Ml Udc) 1 gm PO QID ANGELICA Stop: 06/12/24 16:59 Last Admin: 05/15/24 13:40 Dose: Not Given Assessment & Plan Plan Patient is a 69-year-old female with history of hypertension, diabetes, CKD stage III, and gastric ulcers who presented to the ED after being found unconscious on the floor, was admitted for management of sepsis secondary to pneumonia, was started on azithromycin and Rocephin antibiotics at the time. During hospital course, rapid response was called for worsening chest pain, CT angiogram was completed revealing pneumoperitoneum with multiple air droplets adjacent to it within wall of stomach, raising suspicion for gastric perforation. General surgery was consulted and completed exploratory laparotomy with repair of perforated gastric ulcer, postoperatively patient was maintained on mechanical ventilation and upgrade to the ICU where patient required vasopressor support for distributive/septic shock. Additionally, patient was started on IV zosyn at this time. On 05/25, abdominal/pelvis CT was completed revealing loculated fluid collections posterior to the stomach, 5 cm, 6 cm raising suspicion for pancreatic pseudocyst. That same day, CT guided percutaneous placement drainage catheter into the cystic mass retroareolar gastric region was completed, with 100 cc turbid fluid in drainage bag at completion of the procedure. Given concerns of abdominal abscess and fluid collection, patient was started on Merrem and infectious disease was consulted at that time. #Abdominal abscess ? Abdominal pelvis CT 05/25: Loculated fluid collections posterior to the stomach, 5 cm, 6 cm ? On 05/25 CT-guided percutaneous placement drainage catheter and cystic mass retroareolar gastric with 100 cc turbid fluid drained at time of completion ? Blood cultures from 05/13 negative ? Has received azithromycin, Rocephin, and Zosyn during hospital course ? IV fluconazole 200 mg daily (05/21?present) ? IV Merrem 500 mg daily (05/25?present) ? WBC noted to uptrend from 16.5-22.5 on 05/25, improved to 18.3 on 05/26 Plan ? Continue IV Merrem and IV fluconazole ? Cultures from CT-guided percutaneous abdominal drainage pending, antibiotic regimen may be tailored pending culture results ? Infectious disease team will continue to follow #Acute encephalopathy #Distributive/septic shock #Atrial fibrillation with RVR #Acute exacerbation of HFpEF #Hyperlipidemia #Primary hypertension #Perforated gastric ulcer s/p ex lap #Acute tubular necrosis #Anuria #Diabetes mellitus type 2 ? Management per primary team Patient case discussed with attending physician Dr. Kory Sheth, DO PGY-3
--- NOTE | 2024-05-26 15:48 | PC.NURSE ---
BP TRENDING DOWN PT REMAINS W/O DISTRESS NOTED, UF OFF. BEDSIDE NURSE REPORTS SHE WILL NOW INCREASE BP MEDS TO ADDRESS WILL CONT.TO MONITOR
--- NOTE | 2024-05-26 15:53 | PC.NURSE ---
BP TRENDING BACK UP, PT REMAINS RECLINED. UF RESUMED WILL CONT. TO MONITOR
--- NOTE | 2024-05-26 18:13 | PD.IMPROG ---
Documentation for date of: 05/26/24 Subjective Subjective Interval history: Tolerated the dialysis well Patient is off the pressors White blood cell coming down to 18.3 Hemoglobin hematocrit 9.6 [address] Exam Vital Signs Temp Pulse Resp BP Pulse Ox O2 Del Method O2 Flow Rate 97.8 F 79 18 97/63 99 Nasal Cannula 2 05/26/24 17:52 05/26/24 18:00 05/26/24 17:52 05/26/24 18:00 05/26/24 17:52 05/26/24 17:01 05/26/24 17:52 FiO2 35 05/25/24 12:31 Constitutional Comments: Chronically ill Routine Respiratory Exam Comments: Normal to auscultation Routine Abdominal Exam Comments: Soft nontender positive bowel sounds Objective Labs 05/26/24 05:30 05/26/24 05:30 Labs: Laboratory Results - last 24 hr 05/26/24 05/26/24 04:17 05:30 WBC 18.3 H RBC 3.52 L Hgb 9.6 L Hct 28.3 L MCV 80 MCH 27.3 MCHC 33.9 RDW Std Deviation 50.4 H Plt Count 549 H Neut % (Auto) 81 H Lymph % (Auto) 8 L [place] % (Auto) 4 Eos % (Auto) 1 Baso % (Auto) 1 Neut # (Auto) 14.8 H Lymph # (Auto) 1.5 [place] # (Auto) 0.8 Eos # (Auto) 0.2 Baso # (Auto) 0.1 Immature Gran # (Auto) 1.07 H Absolute Nucleated RBC 0.19 H Immature Gran % 6 H Nucleated RBC % 1 H APTT 62.9 H Puncture Site Left Radial ABG pH 7.38 ABG pCO2 42 ABG pO2 81 L ABG HCO3 25 ABG O2 Saturation 97 ABG Base Excess 0 Oxygen Liter Flow 5 FiO2 21 Sodium 133 L Potassium 2.7 L* D Chloride 95 L Carbon Dioxide 23.9 Anion Gap 14 BUN 40 H Creatinine 4.2 H* D Estim Creat Clear Calc 11.4 L eGFR 11 L* BUN/Creatinine Ratio 10 L Glucose 179 H D Calculated Osmolality 280 Calcium 9.3 Corrected Calcium 9.7 Total Bilirubin 0.5 AST 15 ALT 14 Alkaline Phosphatase 129 H Total Protein 6.7 Albumin 3.5 Globulin 3.2 Albumin/Globulin Ratio 1.1 L Impressions Impression: # Gastric perforation status post exploratory laparotomy with suturing of the ulcer and omental patch # Improving leukocytosis # Renal failure on hemodialysis Continue current management ABG Interpretation ABG results: 05/13/24 05/15/24 05/15/24 08:29 15:28 16:03 ABG pH 7.39 7.05 L* D 7.17 L* D ABG pCO2 31 L 63 H D 45 D ABG pO2 78 L 38 L* D 84 D ABG HCO3 19 L 18 L 16 L ABG O2 Saturation 96 59 L 96 ABG Base Excess -5 L -12 L -11 L VBG pH VBG pCO2 VBG pO2 VBG Base Excess 05/16/24 05/17/24 05/18/24 04:38 04:03 04:20 ABG pH 7.28 L D 7.38 D 7.49 H D ABG pCO2 34 D 28 L 30 L ABG pO2 96 85 66 L ABG HCO3 16 L 17 L 23 ABG O2 Saturation 98 97 94 ABG Base Excess -10 L -8 L 0 VBG pH VBG pCO2 VBG pO2 VBG Base Excess 05/19/24 05/20/24 05/21/24 09:05 06:05 22:35 ABG pH 7.30 L D 7.41 D ABG pCO2 49 H D 42 ABG pO2 63 L 63 L ABG HCO3 24 27 H ABG O2 Saturation 91 93 ABG Base Excess -3 2 VBG pH 7.31 L VBG pCO2 50 VBG pO2 39 VBG Base Excess -2 05/26/24 04:17 ABG pH 7.38 ABG pCO2 42 ABG pO2 81 L ABG HCO3 25 ABG O2 Saturation 97 ABG Base Excess 0 VBG pH VBG pCO2 VBG pO2 VBG Base Excess Assessment & Plan A&P Narrative here since 05/13. so on rx a long time now. usual rx for most things is 7d. will leave on merrem thru weekend but unless collection in abd grows a likely pathogen, may look at cessation on Wednesday Time Spent With Patient Time: Total time spent is greater than 50% in coordination of care (as documented) at patient's floor/unit and/or counseling patient:
--- NOTE | 2024-05-26 18:20 | ESPR_ITS ---
Documentation for date of: 05/26/24 Subjective Subjective Interval history: No overnight events, patient seen and examined in ICU today, significant improvement in mental status, patient is able to respond and follow commands. Exam Vital Signs Temp Pulse Resp BP Pulse Ox O2 Del Method O2 Flow Rate 97.8 F 79 18 105/54 L 99 Nasal Cannula 2 05/26/24 17:52 05/26/24 18:15 05/26/24 17:52 05/26/24 18:15 05/26/24 17:52 05/26/24 17:01 05/26/24 17:52 FiO2 35 05/25/24 12:31 Narrative Exam GENERAL: obese built, female in not much distress NEURO: lethargic but arousable, seems very weak, HEENT: Atraumatic, Normocephalic. mucous membranes moist. Eyes open, symmetrical, & clear HEART: Normal Heart Sounds LUNGS: mildly wheezing bilaterally ABDOMEN: soft, non-distended, non-tender, bowel sounds heard, no guarding or rebound tenderness, incision side is clean. Sadi and accordion drains in place SKIN: No Rash or ecchymoses EXTREMITIES: able to move all 4 extremities, pedal pulses palpated Objective Labs 05/27/24 06:28 05/27/24 06:28 Labs: Laboratory Results - last 24 hr 05/26/24 05/26/24 04:17 05:30 WBC 18.3 H RBC 3.52 L Hgb 9.6 L Hct 28.3 L MCV 80 MCH 27.3 MCHC 33.9 RDW Std Deviation 50.4 H Plt Count 549 H Neut % (Auto) 81 H Lymph % (Auto) 8 L [place] % (Auto) 4 Eos % (Auto) 1 Baso % (Auto) 1 Neut # (Auto) 14.8 H Lymph # (Auto) 1.5 [place] # (Auto) 0.8 Eos # (Auto) 0.2 Baso # (Auto) 0.1 Immature Gran # (Auto) 1.07 H Absolute Nucleated RBC 0.19 H Immature Gran % 6 H Nucleated RBC % 1 H APTT 62.9 H Puncture Site Left Radial ABG pH 7.38 ABG pCO2 42 ABG pO2 81 L ABG HCO3 25 ABG O2 Saturation 97 ABG Base Excess 0 Oxygen Liter Flow 5 FiO2 21 Sodium 133 L Potassium 2.7 L* D Chloride 95 L Carbon Dioxide 23.9 Anion Gap 14 BUN 40 H Creatinine 4.2 H* D Estim Creat Clear Calc 11.4 L eGFR 11 L* BUN/Creatinine Ratio 10 L Glucose 179 H D Calculated Osmolality 280 Calcium 9.3 Corrected Calcium 9.7 Total Bilirubin 0.5 AST 15 ALT 14 Alkaline Phosphatase 129 H Total Protein 6.7 Albumin 3.5 Globulin 3.2 Albumin/Globulin Ratio 1.1 L ABG Interpretation ABG results: 05/13/24 05/15/24 05/15/24 08:29 15:28 16:03 ABG pH 7.39 7.05 L* D 7.17 L* D ABG pCO2 31 L 63 H D 45 D ABG pO2 78 L 38 L* D 84 D ABG HCO3 19 L 18 L 16 L ABG O2 Saturation 96 59 L 96 ABG Base Excess -5 L -12 L -11 L VBG pH VBG pCO2 VBG pO2 VBG Base Excess 05/16/24 05/17/24 05/18/24 04:38 04:03 04:20 ABG pH 7.28 L D 7.38 D 7.49 H D ABG pCO2 34 D 28 L 30 L ABG pO2 96 85 66 L ABG HCO3 16 L 17 L 23 ABG O2 Saturation 98 97 94 ABG Base Excess -10 L -8 L 0 VBG pH VBG pCO2 VBG pO2 VBG Base Excess 05/19/24 05/20/24 05/21/24 09:05 06:05 22:35 ABG pH 7.30 L D 7.41 D ABG pCO2 49 H D 42 ABG pO2 63 L 63 L ABG HCO3 24 27 H ABG O2 Saturation 91 93 ABG Base Excess -3 2 VBG pH 7.31 L VBG pCO2 50 VBG pO2 39 VBG Base Excess -2 05/26/24 04:17 ABG pH 7.38 ABG pCO2 42 ABG pO2 81 L ABG HCO3 25 ABG O2 Saturation 97 ABG Base Excess 0 VBG pH VBG pCO2 VBG pO2 VBG Base Excess Quality Measures Quality Measures VTE prophylaxis (Heparin) Advance care planning discussed with:: patient Assessment & Plan Assessment Current Active Medications: Generic Name Dose Route Start Last Admin Trade Name Freq PRN Reason Stop Dose Admin Albuterol/Ipratropium 3 ml 05/20/24 09:23 05/24/24 18:55 Albuterol/Ipratropium (Duoneb) Rt Jimena 3 Ml Nebu INH 06/19/24 12:59 3 ml Q6HRRT PRN Administration SOB or Wheeze Dextrose 25 ml 05/24/24 15:43 Dextrose 50%-Water Inj 50 Ml Syringe IV 06/23/24 15:42 Q15MIN PRN BG 50-70 responsive npo pt Dextrose 50 ml 05/24/24 15:43 Dextrose 50%-Water Inj 50 Ml Syringe IV 06/23/24 15:42 Q15MIN PRN BG <50 OR BG <70 & pt unresponsive Fentanyl Citrate 25 mcg 05/26/24 13:20 Fentanyl Cit Inj 50 Mcg/Ml Amp 2ml IVP 05/31/24 13:59 Q2HR PRN Pain 7-10 Glucagon 1 mg 05/24/24 15:43 Glucagon Inj 1 Mg Vial IM Q15MIN PRN BG <70, and no IV access Heparin Sodium (Porcine) 2,500 unit 05/17/24 15:52 05/25/24 12:17 Heparin Sod Inj 1000 Unit/Ml Vial 10 Ml INDWELLCAT 05/31/24 15:51 2,500 unit PRN PRN Administration DIALYSIS Hydromorphone HCl 0.25 mg 05/24/24 15:40 05/25/24 18:15 Hydromorphone Inj 2 Mg/Ml Vial IVP 05/29/24 15:31 0.25 mg Q6H PRN Administration Pain 4-10 Fluconazole 100 mls @ 100 mls/hr 05/21/24 14:00 05/26/24 13:55 Diflucan/Ns Ivpb IV 05/28/24 13:59 100 mls/hr QDAY@1400 ANGELICA Administration Norepinephrine/Dextrose 8 mg in 250 mls @ 7.35 mls/hr 05/20/24 15:40 05/24/24 12:39 Levophed In D5w 8mg/250ml IV 06/19/24 06:55 0 mcg/kg/min .Q24H PRN 0 mls/hr PER PROTOCOL Titration Protocol 0.05 MCG/KG/MIN Heparin Sodium/Dextrose 25,000 unit in 250 mls @ 10.212 mls/hr 05/23/24 18:15 05/26/24 08:00 Heparin In D5w Ivpb IV 06/06/24 18:14 12 units/kg/hr .Q24H ANGELICA 10.212 mls/hr Titration Protocol 12 UNITS/KG/HR Phenylephrine HCl 40 mg/ 100 mls @ 6.128 mls/hr 05/24/24 10:53 05/26/24 16:00 Sodium Chloride IV 06/23/24 10:52 0.2 mcg/kg/min .[id number] PRN 2.451 mls/hr Per Sepsis Protocol Titration Protocol 0.5 MCG/KG/MIN Amiodarone HCl/Dextrose 360 mg in 200 mls @ 16.667 mls/hr 05/24/24 13:32 05/26/24 15:08 Nexterone Ivpb IV 05/28/24 13:31 16.667 mls/hr .Q12H ANGELICA Administration Albumin Human 25 gm in 100 mls @ 100 mls/min 05/25/24 10:07 05/26/24 15:32 Albuminar-25 Ivpb IV 100 mls/min PRN PRN Administration DIALYSIS Meropenem 500 mg/ Sodium 50 mls @ 100 mls/hr 05/25/24 11:00 05/26/24 09:03 Chloride IV 06/01/24 10:59 100 mls/hr QDAY ANGELICA Administration Fat Emulsion-[place] Oil/Soybean Oil 500 mls @ 32 mls/hr 05/27/24 18:00 Clinopid 20% Iv IV 06/26/24 17:59 TuSa@1800 ANGELICA Amino Acids 2,000 mls @ 40 mls/hr 05/26/24 18:00 Clinimix 5/20 IV 05/27/24 17:59 QDAY@1800 ANGELICA Acetaminophen 1,000 mg in 100 mls @ 250 mls/hr 05/26/24 13:35 Ofirmev Inj IV 05/27/24 06:23 Q6HR PRN abdominal pain Insulin Glargine 12 unit 05/25/24 09:00 05/26/24 08:59 Insulin Glargine (Lantus) 5 Unit/0.05 Ml (Per 5 Units) SC 06/24/24 08:59 12 unit QDAY ANGELICA Administration Insulin Human Lispro 0 unit 05/24/24 18:00 05/26/24 17:51 Insulin Lispro (Admelog) 1 Unit/0.01 Ml Unit SC 06/23/24 17:59 4 unit Q6HR ANGELICA Administration Protocol Ondansetron HCl 4 mg 05/13/24 11:58 05/14/24 12:31 Ondansetron Inj 2 Mg/Ml Inj 2 Ml IV 06/12/24 11:57 4 mg Q6H PRN Administration NAUSEA OR VOMITING Protocol Pantoprazole Sodium 40 mg 05/15/24 21:00 05/26/24 08:53 Pantoprazole Inj 40 Mg Vial IVP 06/14/24 20:59 40 mg BID ANGELICA Administration Pharmacy Consult 1 each 05/16/24 10:27 Pharmacy Renal Dose Adjustment 1 Ea XX 06/15/24 10:26 PRN PRN CONSULT Sodium Chloride 3 ml 05/24/24 19:00 Sodium Chloride Rt Jim[place] 0.9% 3 Ml Nebu INH 06/23/24 18:59 PRN PRN SOLN Plan 69-year-old female with past medical history of CKD stage III, prediabetes, hypertension who was found unconscious in her room. As well as diarrhea and shortness of breath. Admitted for sepsis secondary to pneumonia and acute metabolic encephalopathy #Acute metabolic encephalopathy, improving -Patient was found to be nonresponsive at home -Intitial Head CT was negative -Brain MRI with MRA shows significant stenoses in posterior cerebral artery, no acute infarction noted -Will continue with the current management as per primary team, will hold off on doing EEG as there is significant improvement in mental status. -Continue with the passive range of motion exercises prevent contracture, attempt physical therapy as she is more awake Patient's care discussed with attending physician, Dr Talisha Sidhu MD PGY3 Attending Provider Attestation/Addendum Patient was seen and examined at the bedside and agreed with resident's findings, assessment and plan of care.
[2024-05-26] MEDS: HEPARIN SOD INJ 1000 UNIT/ML VIAL 10 ML 2500 UNIT INDWELLCAT (18:33)
[2024-05-26] MEDS: [UNRECOGNIZED DRUG - OTHER] IV (18:35)
[2024-05-26] MEDS: AMINO ACID IV (18:35)
[2024-05-26] MEDS: fentaNYL CIT INJ 50 mCg/ML AMP 2ML 25 MCG IVP ×2 (18:35→21:50)
--- NOTE | 2024-05-26 19:09 | ESPR_ITS ---
Documentation for date of: 05/26/24 Subjective Subjective Interval history: 05/19: no acute overnight events. Pt continues to complain of abdominal pain and minimal urinary output pt. has another episode of black smeared bowel movement but Hgb is stable therefore will continue to monitor daily CBC. Pt is very sensitive to Dilaudid and morphine and causes her to have a decreased respiratory drive with respirations around 9 and 10. Will have to resort to another type of pain management possibly either [place] or IV Tylenol. Will try 0.25 Dilaudid. Patient underwent HD fluid removal and was able to tolerate removing only 1.5 L and patient became hypotensive and Levophed drip was started for a few hours and DC'd the Levophed at 2 PM. 05/21: No acute overnight events patient is saturating on 3 L of oxygen via nasal cannula. patient is unable to follow commands she is able to track the examiners voice. Patient underwent HD fluid removal and removed 2 L of fluid. Patient is more alert when family is around. Patient is placed on intermittent suctioning and stopped tube feedings due to bowel rest will start TPN tomorrow although patient is fluid overloaded and will have to undergo HD fluid removal tomorrow again. Will order IR to place a PICC line specifically for TPN as well as amiodarone drip since patient cannot take p.o. amiodarone due to bowel rest. Still unable to assess neurological function as patient's mentation seems withdrawn. 05/22: Overnight patient was saturating in the low 80s requiring 15 L of oxygen via oxyme mask and then patient improved and continued the rest of the night with 4 L of oxygen via nasal cannula. Patient is seen and examined this morning patient is alert awake and follows commands patient still continues to have weakness in lower extremities. patient still has no urine production and 1 big bowel movement with that melena. Patient received dialysis this morning removing 2.5 L of fluid and during dialysis patient was in A-fib with RVR and amiodarone bolus of 150 was given along with continued amiodarone drip. Patient will be continued to have bowel rest for at least a week therefore nothing through the gut should be given including meds. Patient complained of abdominal pain and IV Tylenol was given which she states it helped. Patient also got a PICC line today for TPN of 1200. BALAJI tube had 50 mL of purulent output through the night and none during the day. Patient's edema is significantly improving. 05/23: overnight pt. had no urine output, remained afebrile and BALAJI drainage had 5 mL of greenish thick output. NG tube had 300 cc of output. Patient is saturating well on 3L of oxygen via nasal. Patient underwent HD for fluid removal dialysis this morning and removed 3 L of fluid. Patient is alert, awake, follows commands and can answer yes or no questions. Patient denies any pain and did not receive any Tylenol overnight or during the day today. Per surgery's recommendation Dr. Silva was okay with starting anticoagulation for A- fib therefore patient was started on heparin drip. Leukocytosis is downtrending CBC is stable and potassium is repleted. 05/24: no overnight events. Pt has no urine output, 1 bowel movement without melena or hematochezia, BALAJI drain has 15ml og greenish thick output and NG has 150cc output on LIS. Pt. remained afebrile and denies pain. Pt is seen and examine at bedside. The edema is has resolved. Pt did not have dialysis today but will have a session tomorrow. Pt is on continued amiodarone drip and anticoagulated with heparin drip. Pt. was off of amio drip overnight therefor this morning bolus amio with phenylephrine was given. Pts. electrolytes are closely monitored and repleted to maintain potassium above 4 and magnesium above 2. If pt. has continued leukocytes, will consider CT scan tomorrow to check of abscess that may need to be drained before the weekend. 05/25: overnight patient had no urine output, and had 1 bowel movement without melena or hematochezia, TPN was also held overnight due to patient was very volume overloaded and in respiratory distress. BALAJI drain had less than 5 mL greenish output. Patient is having dialysis today goal is to remove 2 to 3 L of fluid. Patient continues to require pressor support during dialysis as her blood pressure drops. patient was very tachypneic and tachycardic throughout the evening and overnight and remained tachypneic and tachycardic this morning, patient also had a low-grade fever. Decision was made to repeat CT scan of the abdomen, which found Loculated fluid collections posterior to the stomach, IR was consulted and percutaneous drainage was placed and approximately 150 cc of pus was removed. Will continue to monitor the drainage. 05/26: no acute overnight events. Pt had no urine output and 1 bowel movement over night. overnight the percutaneous drainage had 250cc of pus collected and BALAJI drain had less than 5cc of fluid removed. Pt is seen and examined at bedside , she is complaining of abdominal pain, percutaneous drain this morning have approx 20cc of bloody output. Dr. Santana wants the surgical aixa to be removed 2 weeks after surgery (surgery was 05/15) and for the patient to remain NPO through wednesday. for now TPN to be continued through PICC line. Pt. has ultra filtration dialysis and removed 2L of fluid. Pt is saturating at 87% on 2L of O2 via NC. Exam Vital Signs Temp Pulse Resp BP Pulse Ox O2 Del Method O2 Flow Rate 97.8 F 83 21 H 116/53 L 100 Nasal Cannula 2 05/26/24 18:30 05/26/24 18:54 05/26/24 18:54 05/26/24 18:30 05/26/24 18:54 05/26/24 18:01 05/26/24 18:54 FiO2 35 05/25/24 12:31 Objective Labs 06/02/24 04:44 06/02/24 04:44 Labs: Laboratory Results - last 24 hr 05/26/24 05/26/24 04:17 05:30 WBC 18.3 H RBC 3.52 L Hgb 9.6 L Hct 28.3 L MCV 80 MCH 27.3 MCHC 33.9 RDW Std Deviation 50.4 H Plt Count 549 H Neut % (Auto) 81 H Lymph % (Auto) 8 L Harper % (Auto) 4 Eos % (Auto) 1 Baso % (Auto) 1 Neut # (Auto) 14.8 H Lymph # (Auto) 1.5 Harper # (Auto) 0.8 Eos # (Auto) 0.2 Baso # (Auto) 0.1 Immature Gran # (Auto) 1.07 H Absolute Nucleated RBC 0.19 H Immature Gran % 6 H Nucleated RBC % 1 H APTT 62.9 H Puncture Site Left Radial ABG pH 7.38 ABG pCO2 42 ABG pO2 81 L ABG HCO3 25 ABG O2 Saturation 97 ABG Base Excess 0 Oxygen Liter Flow 5 FiO2 21 Sodium 133 L Potassium 2.7 L* D Chloride 95 L Carbon Dioxide 23.9 Anion Gap 14 BUN 40 H Creatinine 4.2 H* D Estim Creat Clear Calc 11.4 L eGFR 11 L* BUN/Creatinine Ratio 10 L Glucose 179 H D Calculated Osmolality 280 Calcium 9.3 Corrected Calcium 9.7 Total Bilirubin 0.5 AST 15 ALT 14 Alkaline Phosphatase 129 H Total Protein 6.7 Albumin 3.5 Globulin 3.2 Albumin/Globulin Ratio 1.1 L ABG Interpretation ABG results: 05/13/24 05/15/24 05/15/24 08:29 15:28 16:03 ABG pH 7.39 7.05 L* D 7.17 L* D ABG pCO2 31 L 63 H D 45 D ABG pO2 78 L 38 L* D 84 D ABG HCO3 19 L 18 L 16 L ABG O2 Saturation 96 59 L 96 ABG Base Excess -5 L -12 L -11 L VBG pH VBG pCO2 VBG pO2 VBG Base Excess 05/16/24 05/17/24 05/18/24 04:38 04:03 04:20 ABG pH 7.28 L D 7.38 D 7.49 H D ABG pCO2 34 D 28 L 30 L ABG pO2 96 85 66 L ABG HCO3 16 L 17 L 23 ABG O2 Saturation 98 97 94 ABG Base Excess -10 L -8 L 0 VBG pH VBG pCO2 VBG pO2 VBG Base Excess 05/19/24 05/20/24 05/21/24 09:05 06:05 22:35 ABG pH 7.30 L D 7.41 D ABG pCO2 49 H D 42 ABG pO2 63 L 63 L ABG HCO3 24 27 H ABG O2 Saturation 91 93 ABG Base Excess -3 2 VBG pH 7.31 L VBG pCO2 50 VBG pO2 39 VBG Base Excess -2 05/26/24 04:17 ABG pH 7.38 ABG pCO2 42 ABG pO2 81 L ABG HCO3 25 ABG O2 Saturation 97 ABG Base Excess 0 VBG pH VBG pCO2 VBG pO2 VBG Base Excess Quality Measures Quality Measures VTE prophylaxis (Heparin) Advance care planning discussed with:: child Assessment & Plan Assessment Current Active Medications: Generic Name Dose Route Start Last Admin Trade Name Freq PRN Reason Stop Dose Admin Albuterol/Ipratropium 3 ml 05/20/24 09:23 12/25/24 18:55 Albuterol/Ipratropium (Duoneb) Rt Jimena 3 Ml Nebu INH 06/19/24 12:59 3 ml Q6HRRT PRN Administration SOB or Wheeze Dextrose 25 ml 05/24/24 15:43 Dextrose 50%-Water Inj 50 Ml Syringe IV 06/23/24 15:42 Q15MIN PRN BG 50-70 responsive npo pt Dextrose 50 ml 05/24/24 15:43 Dextrose 50%-Water Inj 50 Ml Syringe IV 06/23/24 15:42 Q15MIN PRN BG <50 OR BG <70 & pt unresponsive Fentanyl Citrate 25 mcg 05/26/24 13:20 05/26/24 18:35 Fentanyl Cit Inj 50 Mcg/Ml Amp 2ml IVP 05/31/24 13:59 25 mcg Q2HR PRN Administration Pain 7-10 Glucagon 1 mg 05/24/24 15:43 Glucagon Inj 1 Mg Vial IM Q15MIN PRN BG <70, and no IV access Heparin Sodium (Porcine) 2,500 unit 05/17/24 15:52 05/26/24 18:33 Heparin Sod Inj 1000 Unit/Ml Vial 10 Ml INDWELLCAT 05/31/24 15:51 2,500 unit PRN PRN Administration DIALYSIS Hydromorphone HCl 0.25 mg 05/24/24 15:40 05/25/24 18:15 Hydromorphone Inj 2 Mg/Ml Vial IVP 05/29/24 15:31 0.25 mg Q6H PRN Administration Pain 4-10 Fluconazole 100 mls @ 100 mls/hr 05/21/24 14:00 05/26/24 13:55 Diflucan/Ns Ivpb IV 05/28/24 13:59 100 mls/hr QDAY@1400 ANGELICA Administration Norepinephrine/Dextrose 8 mg in 250 mls @ 7.35 mls/hr 05/20/24 15:40 05/24/24 12:39 Levophed In D5w 8mg/250ml IV 06/19/24 06:55 0 mcg/kg/min .Q24H PRN 0 mls/hr PER PROTOCOL Titration Protocol 0.05 MCG/KG/MIN Heparin Sodium/Dextrose 25,000 unit in 250 mls @ 10.212 mls/hr 05/23/24 18:15 05/26/24 08:00 Heparin In D5w Ivpb IV 06/06/24 18:14 12 units/kg/hr .Q24H ANGELICA 10.212 mls/hr Titration Protocol 12 UNITS/KG/HR Phenylephrine HCl 40 mg/ 100 mls @ 6.128 mls/hr 05/24/24 10:53 05/26/24 18:34 Sodium Chloride IV 06/23/24 10:52 0.15 mcg/kg/min .[id number] PRN 1.838 mls/hr Per Sepsis Protocol Titration Protocol 0.5 MCG/KG/MIN Amiodarone HCl/Dextrose 360 mg in 200 mls @ 16.667 mls/hr 05/24/24 13:32 05/26/24 15:08 Nexterone Ivpb IV 05/28/24 13:31 16.667 mls/hr .Q12H ANGELICA Administration Albumin Human 25 gm in 100 mls @ 100 mls/min 05/25/24 10:07 05/26/24 15:32 Albuminar-25 Ivpb IV 100 mls/min PRN PRN Administration DIALYSIS Meropenem 500 mg/ Sodium 50 mls @ 100 mls/hr 05/25/24 11:00 05/26/24 09:03 Chloride IV 06/01/24 10:59 100 mls/hr QDAY ANGELICA Administration Fat Emulsion-[place] Oil/Soybean Oil 500 mls @ 32 mls/hr 05/27/24 18:00 Clinopid 20% Iv IV 06/26/24 17:59 TuSa@1800 ANGELICA Amino Acids 2,000 mls @ 40 mls/hr 05/26/24 18:00 05/26/24 18:35 Clinimix 5/20 IV 05/27/24 17:59 40 mls/hr QDAY@1800 ANGELICA Administration Acetaminophen 1,000 mg in 100 mls @ 250 mls/hr 05/26/24 13:35 Ofirmev Inj IV 05/27/24 06:23 Q6HR PRN abdominal pain Insulin Glargine 12 unit 05/25/24 09:00 05/26/24 08:59 Insulin Glargine (Lantus) 5 Unit/0.05 Ml (Per 5 Units) SC 06/24/24 08:59 12 unit QDAY ANGELICA Administration Insulin Human Lispro 0 unit 05/24/24 18:00 05/26/24 17:51 Insulin Lispro (Admelog) 1 Unit/0.01 Ml Unit SC 06/23/24 17:59 4 unit Q6HR ANGELICA Administration Protocol Ondansetron HCl 4 mg 05/13/24 11:58 05/14/24 12:31 Ondansetron Inj 2 Mg/Ml Inj 2 Ml IV 06/12/24 11:57 4 mg Q6H PRN Administration NAUSEA OR VOMITING Protocol Pantoprazole Sodium 40 mg 05/15/24 21:00 05/26/24 08:53 Pantoprazole Inj 40 Mg Vial IVP 06/14/24 20:59 40 mg BID ANGELICA Administration Pharmacy Consult 1 each 05/16/24 10:27 Pharmacy Renal Dose Adjustment 1 Ea XX 06/15/24 10:26 PRN PRN CONSULT Sodium Chloride 3 ml 05/24/24 19:00 Sodium Chloride Rt Jimena 0.9% 3 Ml Nebu INH 06/23/24 18:59 PRN PRN SOLN Plan Ms. Castellanos is a 69-year-old female with past medical history significant for hypertension, diabetes, CKD stage III, and history of gastric ulcers who presented to the ED on 05/13/2024 after she was found unconscious on the floor. Per chart reviewing prior to this unconsciousness patient was having abdominal pain and generalized weakness with diarrhea and shortness of breath for 2 days. Patient was admitted to the hospital for treatment and management of sepsis secondary to pneumonia. Patient was given 1 L normal saline and started on ceftriaxone and azithromycin. patient underwent ex lap surgery for perforated gastric ulcer. Patient remained intubated postop and is upgraded to the ICU. Neuro: # Acute encephalopathy-improved -Likely multifactorial secondary to sepsis versus metabolic versus neurologic versus medication -Patient is awake and alert and follows commands. Patient is able to respond to yes or no questions verbally Cardiovasc: #shock - resolved DDx: more likely cardiogenic 2/2 afib with RVR, complicated by s/p laparotomy state -S/P aggressive fluid resuscitation, continue to monitor and will give additional fluids as needed -On levophed and vasopression to maintain MAP >65, wean as tolerated. -Status post 1 unit PRBC given 05/15/2024 for hemoglobin below 7 -Continue iv antibiotics and additional fluids as needed and treat underlying cause -Treat underlying cause -during dialysis pt. becomes hypotensive and phenyephrine drip is started to maintain MAP above 65 # New onset A-fib with RVR -Likely secondary to shock in the setting of abdominal surgery -EKG findings consistent with A-fib -Was on Amiodarone 200 twice daily for new onset Afib, but as she was in AFib with RVR, started on amio drip (will continue amio drip while bowel rest) -Heparin drip started (05/23) for anticoagulation -Cardiology consulted #Acute exacerbation of HFpEF #Hx. of CHF -echo 05/16 -estimated EF of 55 to 60%, stage I diastolic dysfunction noted, Moderate to severe posterior MAC -Pt presented with SOB and 2+ edema in LE -elevated BNP from 304 --> 1110 -HD in the setting of anuria -holding guideline directed medical therapy due to shock, will resume when able #Hyperlipidemia -Plan: Hold home atorvastatin as patient is npo. Will reinstate as tolerated #Primary Hypertension -Plan: Hold home amlodipine in setting of shock Pulm: #Acute Hypoxic Respiratory failure likely multifactorial -2/2 to pulmonary edema in the setting of volume overload 2/2 ATN due to shock leading to oligoanuria versus bibasilar pneumonia -Further complicated by bilateral lung atelectasis in the setting of recent abdominal surgery and sedatives use -Patient was intubated and on mechanical ventilation (05/15) and extubated 05/18/2024, currently saturating 95-97 % on 2-3 L NC GI: #Pneumoperitoneum #Peritonitis secondary to perforated gastric ulcer Patient found to have tender abdomen, rigidity in the epigastrium, chest x-ray showed elevation of hemidiaphragm, CT abdomen showed pneumoperitoneum, concern for perforated viscus, general surgeon Dr. Santana was consulted for emergency laparotomy and possible repair of perforated gastric ulcer. Repeat CT abd/pel on 05/20 revealed Pneumoperitoneum, orogastric tube in the stomach, mild free fluid adjacent to the stomach and anterior to the pancreas. ?Patient was given IV fluid boluses, IV albumin 1 PRBC was ordered ?Antibiotic coverage was broadened to Zosyn to cover for anaerobic and enteric pathogens- completed the course - Plan: s/p Exploratory laparotomy & repair of perforated gastric ulcer - 05/15. -Surgery following and on pain management with Dilaudid (hold if RR <15) -GI surgeon Dr. Hernandez was made aware of the situation, and she recommended stopping tube feed and starting slow intermittent suctioning via NG tube. -She was also started on Diflucan 400 Mg IV daily for fungal prophylaxis (started 05/21-) --Miropenem to be D/c'd after the abcess cultures come back negative (started 05/25-) #Acute Upper GI bleed - stable - most likely secondary to perforated gastric ulcer -Patient had a single episode of black tarry stool today-likely setting of recent abdominal surgery - Plan: Continue iv Protonix. -Will monitor for alarm signs of active bleeding with melena or hematochezia #GI ppx - pantoprazole #Diet -hold all tube feedings due to bowel rest. TPN 1000 cc/Qday (started 05/22/24) Renal: #Acute tubular necrosis #Anuria - 2/2 septic shock -Patient has 0 urine production - Baseline Cr appears to be 0.7 - Plan: Patient underwent HD fluid removal and removed 2.1 L on 05/18 and 1.5 L on 05/19, 2L fluid removed 05/21, 2.5 L fluid removed on 05/22 , 3L fluid removed on 05/23, 3L fluid removed 05/25, 2L removed 05/26 - Guajardo catheter in place and monitor urine output closely. - Renally dose medications and avoid nephrotoxic agents -repeat labs in am -Nephrology following Endo: #hypoglycemia, resolved #Diabetes Mellitus type II - A1C 6.3 % , BG 232 - Hold home glipizide and januvia - Plan: Continue to monitor blood sugars -insulin sliding scale ordered with lantus 12 units Heme/Onc: #Acute blood loss anemia- stable - 2/2 perforated ulcer- S/P surgical repair -Hgb stable 9.6 Hct 28.3 ?patient received 2 units of PRBC 05/18 due to acutely drop in Hgb below 7. No signs of active bleeding. -Plan: Continue to monitor daily CBC. transfuse for hemoglobin less than 7. # Abscess #Leucocytosis -CT scan shows -Loculated 5-6cm fluid collection posterior to the stomach -On IV zosyn -On IV Diflucan 400mg IV daily for fungal prophylaxis for 14 days total -Miropenem to be D/c'd after the abcess cultures come back negative -Percutaneous drain catheter in place-250 cc of pus overnight and 20cc bloody fluid during the day ID -On zosyn for bacterial peritonitis (Skin:) #Pressure Ulcer Prevention Disposition: ICU for AHRF & cardiogenic shock DVT Prophylaxis: Heparin drip for coagulation for A-fib GI Prophylaxis: Pantoprozol-40 IV Diet: Nothing p.o. due to bowel rest Lines: central line left IJ for dialysis, right PICC line, percutaneous drain catheter in place Code status: Full Assessment and plan discussed with my attending physician Dr. Shantal Rivera (PGY-1)- Internal medicine resident Attending Provider Attestation/Addendum Patient seen and examined with above resident, Karol Rivera MD. I agree with the findings, assessment, and plan of care as documented except for any differences below. Patient doing better after placement of second drain for intraperitoneal abscess. Remains on broad-spectrum antibiotics appropriately while we await culture data, consider return back to Zosyn from meropenem now that we have source control. Diflucan will be continued as well. BALAJI drain continues to have limited output. Output of the accordion drain is now s/p failed more serosanguineous. Patient abdominal exam remains benign and she does have some discomfort. Patient will continue to be placed on strict n.p.o. status with PICC line being used in isolation for TPN to minimize risk of further infection. Patient remains on amiodarone, will continue to have to be IV given lack of access to the GI tract for rest. Patient's respiratory status also continues to be stable with limited requirement for nasal cannula and mentation continues to show improvement. Dialysis is ongoing with intermittent ultrafiltration as per nephrology to maintain even fluid status given large volume from TPN administration daily. She is on appropriate anticoagulation with heparin drip for atrial fibrillation with no evidence of bleeding, was resumed promptly after procedure as per IR guidance. Patient's family was updated at bedside. Total critical care time: I personally spent 40 minutes for review of physiologic parameters, directing plan of care throughout the day, coordination of care with other specialties, and counseling patient's family at bedside. This is exclusive of time spent teaching housestaff or performing any separate billable procedures. Patient continues require critical care services for severe sepsis and atrial fibrillation with RVR secondary to intraperitoneal abscess formation post Ramsey patch for perforated peptic ulcer. Patient's course further complicated by need for hemodialysis in the setting of ADILSON and inability to maintain adequate fluid balance. Patient remains at high risk for increased morbidity and mortality warranting close monitoring only available in the intensive care unit.
[2024-05-27] VITALS (48 sets, daily range): BP systolic 89–142; BP diastolic 48–75; PULSE 74–105; RESP 13–52; TEMP 35.9–36.8; O2SAT 97–100
[2024-05-27] MEDS: fentaNYL CIT INJ 50 mCg/ML AMP 2ML 25 MCG IVP ×4 (00:27→21:48)
[2024-05-27] MEDS: AMIODARONE 360 MG IVPB 360 MG/200 ML BAG 16.667 MG IV ×2 (02:05→14:15)
[2024-05-27] MEDS: Heparin/D5w 25K 250 ML Ivpb 25,000 UNIT/250 ML BAG 10.212 UNIT IV (03:07)
[2024-05-27] MEDS: INSULIN LISPRO (AdmeLOG) 1 UNIT/0.01 ML UNIT SC ×3 (05:31→18:36)
[2024-05-27 06:42] LABS: Basophils # (Auto) 0.1 Thou/mm3 (0.0-0.2); Basophils % (Auto) 0 % (0-2.5); Eosinophils # (Auto) 0.2 Thou/mm3 (0.0-0.5); Eosinophils % (Auto) 1 % (0-10); Hematocrit 28.1 % (36.0-46.0); Hemoglobin 9.6 g/dL (12.0-16.0); Immature Granulocytes % (Auto) 7 % (0-0); Immature Granulocytes Auto 1.28 Thou/mm3 (0.00-0.00); Lymphocytes # (Auto) 1.6 Thou/mm3 (1.0-4.8); Lymphocytes % (Auto) 9 % (10-50); Mean Corpuscular HGB Conc 34.2 g/dl (31.0-37.0); Mean Corpuscular Hemoglobin 27.3 pg (25.0-35.0); Mean Corpuscular Volume 80 fL (80-100); Monocytes # (Auto) 0.8 Thou/mm3 (0.0-0.8); Monocytes % (Auto) 4 % (0-12); Neutrophils # (Auto) 13.7 Thou/mm3 (1.8-7.7); Neutrophils % (Auto) 78 % (37-80); Nucleated Red Blood Cell # 0.14 Thou/mm3 (0.00-0.00); Nucleated Red Blood Cell % 1 /100 WBC (0); Platelet Count 493 Thou/mm3 (140-440); RDW Standard Deviation 50.7 fL (36.4-46.3); Red Blood Count 3.52 Miln/mm3 (4.00-5.20); White Blood Count 17.6 Thou/mm3 (3.6-11.0)
[2024-05-27 07:03] LABS: Alanine Aminotransferase 12 U/L (10-49); Albumin, Serum 3.7 gm/dL (3.4-4.8); Albumin/Globulin Ratio 1.2 (1.2-2.2); Alkaline Phosphatase 123 U/L (46-116); Anion Gap 12 (7-16); Aspartate Amino Transferase 11 U/L (0-34); BUN/Creatinine Ratio 11 Ratio (12-20); Bilirubin,Total 0.4 mg/dL (0.3-1.2); Blood Urea Nitrogen 57 mg/dL (9-23); Calcium 9.7 mg/dL (8.3-10.6); Calcium (Corrected) 9.9 mg/dL (8.5-10.1); Carbon Dioxide 22.6 mMol/L (20.0-31.0); Chloride 94 mMol/L (98-107); Estimated Creatinine Clearance 9.2 mL/min (>60); Globulin 3.1 gm/dL (2.3-3.5); Glucose 163 mg/dL (74-106); Magnesium 1.8 mg/dL (1.6-2.6); Osmolality,Calculated 278 (275-295); Phosphorous 3.2 mg/dL (2.4-5.1); Sodium 129 mMol/L (136-145); Total Protein 6.8 gm/dL (5.7-8.2); eGFR 9 See Note
[2024-05-27 07:09] LABS: Partial Thromboplastin Time 78.3 Seconds (22.0-36.0)
[2024-05-27 07:10] LABS: Potassium 2.6 mMol/L (3.4-5.1)
[2024-05-27] MEDS: POTASSIUM CHL 10 mEq IVPB 10 MEQ/100 ML BAG 100 MEQ IV ×4 (07:25→10:42)
[2024-05-27] MEDS: PANTOPRAZOLE INJ 40 MG VIAL IVP ×2 (08:49→21:17)
[2024-05-27] MEDS: MEROPENEM INJ 500 MG in SODIUM CHLORIDE 0.9% (P) 50 ML 100 MG IV (08:49)
[2024-05-27] MEDS: INSULIN GLARGINE (Lantus) 5 UNIT/0.05 ML (PER 5 UNITS) 12 UNIT SC (08:57)
--- NOTE | 2024-05-27 09:13 | ESPR_ITS ---
Documentation for date of: 05/27/24 Subjective Subjective Interval history: Ms. Castellanos is a [id number] with past medical history of prediabetes, CKD, hypertension, history of ulcers who was admitted to [facility] for sepsis secondary to pneumonia and acute metabolic encephalopathy. Patient was BIBA to the ED after being found unconscious on the floor. According to the son on admission patient's daughter found the patient at 3 AM passed out on the floor and unresponsive. Family is unaware along the patient was on the floor. 2 days ago patient started to develop abdominal pain and weakness all over her body associated with some diarrhea and shortness of breath. Patient's abdominal pain comes and goes from right side to left side of the abdomen. ED course patient was hypertensive tachycardic tachypneic and was saturating 92% on 5 L nasal cannula ED labs significant for WBCs 24.3, bicarb 19.6, glucose 259, lactic acid 2.2, BNP 304, troponin 0.09. 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, colonic diverticulosis, Cervical spine CT showed 3 mm radiolucency in C3 vertebral body Chest CTA showed mild aneurysmal dilatation ascending thoracic aorta AP dimension 4.3 cm and pulmonary artery hypertension with moderate vascular congestion Face CT shows no acute facial fracture, Lumbar spine CT shows no acute lumbar fracture severe acquired spinal stenosis L4-L5, Thoracic spine CT showed no acute fracture Brain MRI with MRA showed equally focal restricted diffusion brainstem medullary level significant stenosis of right P1 P2 segment posterior cerebral artery Postadmission, cardiology was consulted on admission because of elevated troponins, suspicion of NSTEMI type II, patient has acute decompensated heart failure per cardiology evaluation, neurology consulted because of patient's acute metabolic encephalopathy and GI was consulted for suspicion of GI bleed. Eventually on 05/15 rapid response was called for worsening chest pain, patient's map was consistently in 70s, was tachycardic tachypneic. CT angiogram showed pneumoperitoneum multiple air droplets adjacent to and within wall of stomach with suspicion of gastric perforation. General surgery was consulted for emergency surgery and patient had exploratory laparotomy with repair of perforated gastric ulcer with an omental patch. Patient was upgraded to ICU postop for further management patient currently on Levophed and vasopressor due to distributive shock, currently sedated and intubated on mechanical ventilation. Nephrology consulted due to concern of ADILSON. 05/16/24: Patient seen at bedside, patient's daughter present at bedside labs reviewed patient's creatinine 3.0, GFR 16 and BUN 60. Patient's baseline GFR more than 60, does report history of chronic kidney disease. Patient's urine output yesterday 820 mL, there is suspicion of acute kidney injury due to patient's underlying distributive shock versus hypovolemic shock, will continue to monitor patient's urine output and renal panel in a.m., plan of care discussed with patient's family at bedside they want to proceed with dialysis if needed. Will continue to monitor patient. 05/20/24: Patient seen at bedside, was downgraded to floors yesterday, was hypotensive overnight, was upgraded to ICU, currently on pressors, agonal breathing noted, will hold dialysis today, patient did receive dialysis yesterday, had about 1.5 L fluid removed. Patient's urine output continues to remain low. Will continue to monitor patient closely. 05/22/24: Patient seen at bedside in the ICU. Saturates well on 2 L NC, blood pressure 134/80, off pressors. Tries to follow commands. On examination has extensive anasarca. Urine output 210 mL. Patient will receive dialysis today with goal to remove 2 L of fluid. Will continue to monitor patient closely. Labs showed sodium 142, potassium 4.3, BUN 49, creatinine 4.6, EGFR 10. 05/25/2024 Patient currently seen in ICU. On dialysis. More alert and awake. Family at bedside. Urine output still very minimal. Currently on TPN. Spoke to Dr. Murguia. Ultrafiltration 2 L in progress. Edema tad better. On low-dose pressors. 05/26/2024: Patient seen in ICU status post percutaneous drainage by IR, patient continues to need vasopressors during dialysis, patient did receive hemodialysis treatment yesterday, patient has no urine output, scheduled for another hemodialysis session today with goal to remove 2 to 3 L. Will continue to monitor patient. 05/27/2024: Patient seen in ICU, patient did receive dialysis treatment yesterday, had about 2 L worth of fluid removed, overall patient looks significantly improved, has no urine output in the last 24 hours, does have a BALAJI drain and a percutaneous drain placed by IR, with significant drainage.Per ICU plan is to wean patient off pressors and downgraded to telemetry in a.m. Exam Vital Signs Temp Pulse Resp BP Pulse Ox O2 Del Method O2 Flow Rate 97.7 F 90 19 89/48 L 98 Nasal Cannula 2 05/27/24 07:15 05/27/24 07:45 05/27/24 07:45 05/27/24 07:45 05/27/24 07:45 05/27/24 07:15 05/27/24 07:15 FiO2 35 05/25/24 12:31 Narrative Exam Physical Exam General: Awake and in no acute distress. Tracks with eyes, is able to nod to answer questions. HEENT: Normocephalic, atraumatic, mucous membranes moist. Heart: Regular rate and rhythm, no murmurs. Lungs: Clear to auscultation with no wheezing or crackles. Abdomen: Soft, nondistended, nontender, positive bowel sounds. ?No guarding or rebound tenderness. drains ++ Neurologic: Patient awake, no gross neurological deficit, and patient able to move all 4 extremities. Extremities: Lower and upper extremities edema. Anasarca has improved significantly Objective Labs 05/28/24 05:13 05/28/24 16:37 Labs: Laboratory Results - last 24 hr 05/27/24 06:28 WBC 17.6 H RBC 3.52 L Hgb 9.6 L Hct 28.1 L MCV 80 MCH 27.3 MCHC 34.2 RDW Std Deviation 50.7 H Plt Count 493 H D Neut % (Auto) 78 Lymph % (Auto) 9 L [place] % (Auto) 4 Eos % (Auto) 1 Baso % (Auto) 0 Neut # (Auto) 13.7 H Lymph # (Auto) 1.6 [place] # (Auto) 0.8 Eos # (Auto) 0.2 Baso # (Auto) 0.1 Immature Gran # (Auto) 1.28 H Absolute Nucleated RBC 0.14 H Immature Gran % 7 H Nucleated RBC % 1 H APTT 78.3 H D Sodium 129 L Potassium 2.6 L* Chloride 94 L Carbon Dioxide 22.6 Anion Gap 12 BUN 57 H Creatinine 5.0 H* D Estim Creat Clear Calc 9.2 L eGFR 9 L* BUN/Creatinine Ratio 11 L Glucose 163 H Calculated Osmolality 278 Calcium 9.7 Corrected Calcium 9.9 Phosphorus 3.2 Magnesium 1.8 Total Bilirubin 0.4 AST 11 ALT 12 Alkaline Phosphatase 123 H Total Protein 6.8 Albumin 3.7 Globulin 3.1 Albumin/Globulin Ratio 1.2 ABG Interpretation ABG results: 05/13/24 05/15/24 05/15/24 08:29 15:28 16:03 ABG pH 7.39 7.05 L* D 7.17 L* D ABG pCO2 31 L 63 H D 45 D ABG pO2 78 L 38 L* D 84 D ABG HCO3 19 L 18 L 16 L ABG O2 Saturation 96 59 L 96 ABG Base Excess -5 L -12 L -11 L VBG pH VBG pCO2 VBG pO2 VBG Base Excess 05/16/24 05/17/24 05/18/24 04:38 04:03 04:20 ABG pH 7.28 L D 7.38 D 7.49 H D ABG pCO2 34 D 28 L 30 L ABG pO2 96 85 66 L ABG HCO3 16 L 17 L 23 ABG O2 Saturation 98 97 94 ABG Base Excess -10 L -8 L 0 VBG pH VBG pCO2 VBG pO2 VBG Base Excess 05/19/24 05/20/24 05/21/24 09:05 06:05 22:35 ABG pH 7.30 L D 7.41 D ABG pCO2 49 H D 42 ABG pO2 63 L 63 L ABG HCO3 24 27 H ABG O2 Saturation 91 93 ABG Base Excess -3 2 VBG pH 7.31 L VBG pCO2 50 VBG pO2 39 VBG Base Excess -2 05/26/24 04:17 ABG pH 7.38 ABG pCO2 42 ABG pO2 81 L ABG HCO3 25 ABG O2 Saturation 97 ABG Base Excess 0 VBG pH VBG pCO2 VBG pO2 VBG Base Excess Quality Measures Quality Measures VTE prophylaxis (Heparin) Advance care planning discussed with:: patient Assessment & Plan Assessment Current Active Medications: Generic Name Dose Route Start Last Admin Trade Name Freq PRN Reason Stop Dose Admin Albuterol/Ipratropium 3 ml 05/20/24 09:23 05/24/24 18:55 Albuterol/Ipratropium (Duoneb) Rt Jimena 3 Ml Nebu INH 06/19/24 12:59 3 ml Q6HRRT PRN Administration SOB or Wheeze Dextrose 25 ml 05/24/24 15:43 Dextrose 50%-Water Inj 50 Ml Syringe IV 06/23/24 15:42 Q15MIN PRN BG 50-70 responsive npo pt Dextrose 50 ml 05/24/24 15:43 Dextrose 50%-Water Inj 50 Ml Syringe IV 06/23/24 15:42 Q15MIN PRN BG <50 OR BG <70 & pt unresponsive Fentanyl Citrate 25 mcg 05/26/24 13:20 05/27/24 07:20 Fentanyl Cit Inj 50 Mcg/Ml Amp 2ml IVP 05/31/24 13:59 25 mcg Q2HR PRN Administration Pain 7-10 Glucagon 1 mg 05/24/24 15:43 Glucagon Inj 1 Mg Vial IM Q15MIN PRN BG <70, and no IV access Heparin Sodium (Porcine) 2,500 unit 05/17/24 15:52 05/26/24 18:33 Heparin Sod Inj 1000 Unit/Ml Vial 10 Ml INDWELLCAT 05/31/24 15:51 2,500 unit PRN PRN Administration DIALYSIS Hydromorphone HCl 0.25 mg 05/24/24 15:40 05/25/24 18:15 Hydromorphone Inj 2 Mg/Ml Vial IVP 05/29/24 15:31 0.25 mg Q6H PRN Administration Pain 4-10 Fluconazole 100 mls @ 100 mls/hr 05/21/24 14:00 05/26/24 13:55 Diflucan/Ns Ivpb IV 06/03/24 13:59 100 mls/hr QDAY@1400 ANGELICA Administration Norepinephrine/Dextrose 8 mg in 250 mls @ 7.35 mls/hr 05/20/24 15:40 05/24/24 12:39 Levophed In D5w 8mg/250ml IV 06/19/24 06:55 0 mcg/kg/min .Q24H PRN 0 mls/hr PER PROTOCOL Titration Protocol 0.05 MCG/KG/MIN Heparin Sodium/Dextrose 25,000 unit in 250 mls @ 10.212 mls/hr 05/23/24 18:15 05/27/24 07:44 Heparin In D5w Ivpb IV 06/06/24 18:14 12 units/kg/hr .Q24H ANGELICA 10.212 mls/hr Titration Protocol 12 UNITS/KG/HR Phenylephrine HCl 40 mg/ 100 mls @ 6.128 mls/hr 05/24/24 10:53 05/27/24 05:00 Sodium Chloride IV 06/23/24 10:52 0 mcg/kg/min .[id number] PRN 0 mls/hr Per Sepsis Protocol Titration Protocol 0.5 MCG/KG/MIN Amiodarone HCl/Dextrose 360 mg in 200 mls @ 16.667 mls/hr 05/24/24 13:32 05/27/24 02:05 Nexterone Ivpb IV 05/28/24 13:31 16.667 mls/hr .Q12H ANGELICA Administration Albumin Human 25 gm in 100 mls @ 100 mls/min 05/25/24 10:07 05/26/24 15:32 Albuminar-25 Ivpb IV 100 mls/min PRN PRN Administration DIALYSIS Meropenem 500 mg/ Sodium 50 mls @ 100 mls/hr 05/25/24 11:00 05/27/24 08:49 Chloride IV 06/01/24 10:59 100 mls/hr QDAY ANGELICA Administration Fat Emulsion-Lewis Oil/Soybean Oil 500 mls @ 32 mls/hr 05/27/24 18:00 Clinopid 20% Iv IV 06/26/24 17:59 TuSa@1800 ANGELICA Amino Acids 2,000 mls @ 40 mls/hr 05/26/24 18:00 05/26/24 18:35 Clinimix 5/20 IV 05/27/24 17:59 40 mls/hr QDAY@1800 ANGELICA Administration Potassium Chloride 10 meq in 100 mls @ 100 mls/hr 05/27/24 07:16 05/27/24 08:48 Kcl Ivpb IV 05/27/24 11:15 100 mls/hr Q1H ANGELICA Administration Magnesium Sulfate 2 gm/ Sodium 2,009 mls @ 40 mls/hr 05/27/24 18:00 Chloride 20 meq/ Amino Acids IV 05/28/24 17:59 QDAY@1800 ANGELICA Insulin Glargine 12 unit 05/25/24 09:00 05/27/24 08:57 Insulin Glargine (Lantus) 5 Unit/0.05 Ml (Per 5 Units) SC 06/24/24 08:59 12 unit QDAY ANGELICA Administration Insulin Human Lispro 0 unit 05/24/24 18:00 05/27/24 05:31 Insulin Lispro (Admelog) 1 Unit/0.01 Ml Unit SC 06/23/24 17:59 2 unit Q6HR ANGELICA Administration Protocol Ondansetron HCl 4 mg 05/13/24 11:58 05/14/24 12:31 Ondansetron Inj 2 Mg/Ml Inj 2 Ml IV 06/12/24 11:57 4 mg Q6H PRN Administration NAUSEA OR VOMITING Protocol Pantoprazole Sodium 40 mg 05/15/24 21:00 05/27/24 08:49 Pantoprazole Inj 40 Mg Vial IVP 06/14/24 20:59 40 mg BID ANGELICA Administration Pharmacy Consult 1 each 05/16/24 10:27 Pharmacy Renal Dose Adjustment 1 Ea XX 06/15/24 10:26 PRN PRN CONSULT Sodium Chloride 3 ml 05/24/24 19:00 Sodium Chloride Rt Jimena 0.9% 3 Ml Nebu INH 06/23/24 18:59 PRN PRN SOLN Plan Summary: Ms. Castellanos is a [id number] with past medical history of prediabetes, CKD, hypertension, history of ulcers who was admitted to [facility] for sepsis secondary to pneumonia and acute metabolic encephalopathy. Patient is currently sedated intubated in ICU status post exploratory laparotomy with repair of perforated gastric ulcer with an omental patch. Nephrology consulted for acute kidney injury. #Acute kidney injury #Acute Tubular Necrosis 2/2 shock #Anasarca, improving Patient currently seems to be in ATN probably ischemic from fluctuations in blood pressure and underlying shock- started her on dialysis. Patient currently seen on dialysis. Tolerating dialysis without any problems. Received dialysis treatment yesterday, had about 2 L worth of fluid removed yesterday.. Plan of care discussed with the dialysis nurse. Please see dialysis flowsheet for further details. Patient continues to have no urine output, 0 mL urine produced in the last 24 hours Plan -No dialysis treatment today, patient received dialysis yesterday had 2 L fluid removed -Renally dose medications -Avoid nephrotoxic agents -Monitor urine output, strict I&O's -Follow renal panel in a.m. Plan discussed with ICU team//Dr. Murguia. #Metabolic acidosis, resolved #Lactic Acidosis #Acute Encephalopathy #Acute ischemic stroke #Distributive shock #Acute decompensated HF #Elevated Troponin #Hyperlipidemia #Primary Hypertension #Acute Hypoxic Respiratory failure #Pneumoperitoneum #Peritonitis secondary to perforated gastric ulcer #Acute Upper GI bleed #Diabetes Mellitus type II #Acute anemia Management as per ICU team. Case discussed with Attending Dr. August. Geovani Mahmood PGY1 Attending Provider Attestation/Addendum Patient seen and examined with resident physician Dr. Mahmood. Note reviewed, agree with findings and recommendations. Patient currently seen on dialysis. Tolerating dialysis without any problems. Hemodialysis for 3 hours, 2K, ultrafiltration 2-3 L, Epogen 6000, no heparin ordered. Plan of care discussed with the dialysis nurse. Please see dialysis flowsheet for further details. Plan of care discussed with Dr. Murguia.
--- NOTE | 2024-05-27 10:55 | PD.IMPROG ---
Documentation for date of: 05/27/24 Subjective Subjective Interval history: No further bleeding Hemoglobin hematocrit at 9.6 and 28.1 Elevated white count of 17.6 Exam Vital Signs Temp Pulse Resp BP Pulse Ox O2 Del Method O2 Flow Rate 97.7 F 83 16 109/55 L 98 Nasal Cannula 2 05/27/24 07:15 05/27/24 09:01 05/27/24 09:01 05/27/24 09:01 05/27/24 09:01 05/27/24 09:01 05/27/24 09:01 FiO2 35 05/25/24 12:31 Objective Labs 05/28/24 05:13 05/28/24 14:08 Labs: Laboratory Results - last 24 hr 05/27/24 06:28 WBC 17.6 H RBC 3.52 L Hgb 9.6 L Hct 28.1 L MCV 80 MCH 27.3 MCHC 34.2 RDW Std Deviation 50.7 H Plt Count 493 H D Neut % (Auto) 78 Lymph % (Auto) 9 L [place] % (Auto) 4 Eos % (Auto) 1 Baso % (Auto) 0 Neut # (Auto) 13.7 H Lymph # (Auto) 1.6 [place] # (Auto) 0.8 Eos # (Auto) 0.2 Baso # (Auto) 0.1 Immature Gran # (Auto) 1.28 H Absolute Nucleated RBC 0.14 H Immature Gran % 7 H Nucleated RBC % 1 H APTT 78.3 H D Sodium 129 L Potassium 2.6 L* Chloride 94 L Carbon Dioxide 22.6 Anion Gap 12 BUN 57 H Creatinine 5.0 H* D Estim Creat Clear Calc 9.2 L eGFR 9 L* BUN/Creatinine Ratio 11 L Glucose 163 H Calculated Osmolality 278 Calcium 9.7 Corrected Calcium 9.9 Phosphorus 3.2 Magnesium 1.8 Total Bilirubin 0.4 AST 11 ALT 12 Alkaline Phosphatase 123 H Total Protein 6.8 Albumin 3.7 Globulin 3.1 Albumin/Globulin Ratio 1.2 Impressions Impression: # Posthemorrhagic anemia # Perforated gastric ulcer requiring exploratory laparotomy as well as omental patch and suturing of the gastric ulcer # Renal failure on hemodialysis ABG Interpretation ABG results: 05/13/24 05/15/24 05/15/24 08:29 15:28 16:03 ABG pH 7.39 7.05 L* D 7.17 L* D ABG pCO2 31 L 63 H D 45 D ABG pO2 78 L 38 L* D 84 D ABG HCO3 19 L 18 L 16 L ABG O2 Saturation 96 59 L 96 ABG Base Excess -5 L -12 L -11 L VBG pH VBG pCO2 VBG pO2 VBG Base Excess 05/16/24 05/17/24 05/18/24 04:38 04:03 04:20 ABG pH 7.28 L D 7.38 D 7.49 H D ABG pCO2 34 D 28 L 30 L ABG pO2 96 85 66 L ABG HCO3 16 L 17 L 23 ABG O2 Saturation 98 97 94 ABG Base Excess -10 L -8 L 0 VBG pH VBG pCO2 VBG pO2 VBG Base Excess 05/19/24 05/20/24 05/21/24 09:05 06:05 22:35 ABG pH 7.30 L D 7.41 D ABG pCO2 49 H D 42 ABG pO2 63 L 63 L ABG HCO3 24 27 H ABG O2 Saturation 91 93 ABG Base Excess -3 2 VBG pH 7.31 L VBG pCO2 50 VBG pO2 39 VBG Base Excess -2 05/26/24 04:17 ABG pH 7.38 ABG pCO2 42 ABG pO2 81 L ABG HCO3 25 ABG O2 Saturation 97 ABG Base Excess 0 VBG pH VBG pCO2 VBG pO2 VBG Base Excess Assessment & Plan A&P Narrative here since 05/13. so on rx a long time now. usual rx for most things is 7d. will leave on merrem thru weekend but unless collection in [facility] grows a likely pathogen, may look at cessation on Wednesday Time Spent With Patient Time: Total time spent is greater than 50% in coordination of care (as documented) at patient's floor/unit and/or counseling patient:
[2024-05-27] MEDS: CEFEPIME INJ 1 GM in SODIUM CHLORIDE 0.9% (P) 50 ML IV (11:17)
[2024-05-27] MEDS: metroNIDAZOLE/NS 500 MG IVPB 500 MG/100 ML BAG 100 MG IV ×2 (11:42→21:18)
--- NOTE | 2024-05-27 12:40 | PD.RESPRO ---
Documentation for date of: 05/27/24 Subjective Subjective Interval history: 05/23: overnight pt. had no urine output, remained afebrile and SADI drainage had 5 mL of greenish thick output. NG tube had 300 cc of output. Patient is saturating well on 3L of oxygen via nasal. Patient underwent HD for fluid removal dialysis this morning and removed 3 L of fluid. Patient is alert, awake, follows commands and can answer yes or no questions. Patient denies any pain and did not receive any Tylenol overnight or during the day today. Per surgery's recommendation Dr. Silva was okay with starting anticoagulation for A-fib therefore patient was started on heparin drip. Leukocytosis is downtrending CBC is stable and potassium is repleted. 05/24: no overnight events. Pt has no urine output, 1 bowel movement without melena or hematochezia, SADI drain has 15ml og greenish thick output and NG has 150cc output on LIS. Pt. remained afebrile and denies pain. Pt is seen and examine at bedside. The edema is has resolved. Pt did not have dialysis today but will have a session tomorrow. Pt is on continued amiodarone drip and anticoagulated with heparin drip. Pt. was off of amio drip overnight therefor this morning bolus amio with phenylephrine was given. Pts. electrolytes are closely monitored and repleted to maintain potassium above 4 and magnesium above 2. If pt. has continued leukocytes, will consider CT scan tomorrow to check of abscess that may need to be drained before the weekend. 05/25: overnight patient had no urine output, and had 1 bowel movement without melena or hematochezia, TPN was also held overnight due to patient was very volume overloaded and in respiratory distress. SADI drain had less than 5 mL greenish output. Patient is having dialysis today goal is to remove 2 to 3 L of fluid. Patient continues to require pressor support during dialysis as her blood pressure drops. patient was very tachypneic and tachycardic throughout the evening and overnight and remained tachypneic and tachycardic this morning, patient also had a low-grade fever. Decision was made to repeat CT scan of the abdomen, which found Loculated fluid collections posterior to the stomach, IR was consulted and percutaneous drainage was placed and approximately 150 cc of pus was removed. Will continue to monitor the drainage. 05/26: no acute overnight events. Pt had no urine output and 1 bowel movement over night. overnight the percutaneous drainage had 250cc of pus collected and SADI drain had less than 5cc of fluid removed. Pt is seen and examined at bedside , she is complaining of abdominal pain, percutaneous drain this morning have approx 20cc of bloody output. Dr. Santana wants the surgical aixa to be removed 2 weeks after surgery (surgery was 05/15) and for the patient to remain NPO through wednesday. for now TPN to be continued through PICC line. Pt. has ultra filtration dialysis and removed 2L of fluid. Pt is saturating at 87% on 2L of O2 via NC. 05/27: no acute overnight events. Pt continues to have no urinary output. Overnight accordian drain had approximately 5cc of output and SADI drain had 10 cc of output. Pt had 1 BM without melena or hematochezia. Pt this morning appears comfortable, saturating in the high 90's on 2L of O2 via NC. Pt is responding verbally and SOB has significantly improved. Pt does complain of some abdominal pain. Pt did not have dialysis today, she appears to be less fluid overloaded. pt is off of all pressor support and maintaining MAP above 70. Pt will continue Amiodarone drip until she is able to transition to PO meds. Pt is to be NPO through wednesday. Per Dr. Santana aixa maybe removed 2 weeks after surgery. Pt no longer requires ICU, therefore is downgraded to tele and hospitalist team will resume care from 05/28. Sign out is given. Exam Vital Signs Temp Pulse Resp BP Pulse Ox O2 Del Method O2 Flow Rate 97.7 F 91 16 109/55 L 98 Nasal Cannula 2 05/27/24 07:15 05/27/24 12:00 05/27/24 09:01 05/27/24 09:01 05/27/24 09:01 05/27/24 09:01 05/27/24 09:01 FiO2 35 05/25/24 12:31 Narrative Exam GENERAL: A&Ox3 . Awake, Not in acute distress NEURO: no focal neurological deficits HEENT: Atraumatic, Normocephalic. mucous membranes moist. Eyes open, symmetrical, & clear HEART: Normal Heart Sounds LUNGS: mildly wheezing bilaterally ABDOMEN: soft, non-distended, non-tender, bowel sounds heard, no guarding or rebound tenderness, incision side is clean. Sadi and accordion drains in place SKIN: No Rash or ecchymoses EXTREMITIES: No edema, tenderness, able to move all 4 extremities, pedal pulses palpated Objective Labs 05/29/24 05:45 05/29/24 05:45 Labs: Laboratory Results - last 24 hr 05/27/24 06:28 WBC 17.6 H RBC 3.52 L Hgb 9.6 L Hct 28.1 L MCV 80 MCH 27.3 MCHC 34.2 RDW Std Deviation 50.7 H Plt Count 493 H D Neut % (Auto) 78 Lymph % (Auto) 9 L [place] % (Auto) 4 Eos % (Auto) 1 Baso % (Auto) 0 Neut # (Auto) 13.7 H Lymph # (Auto) 1.6 [place] # (Auto) 0.8 Eos # (Auto) 0.2 Baso # (Auto) 0.1 Immature Gran # (Auto) 1.28 H Absolute Nucleated RBC 0.14 H Immature Gran % 7 H Nucleated RBC % 1 H APTT 78.3 H D Sodium 129 L Potassium 2.6 L* Chloride 94 L Carbon Dioxide 22.6 Anion Gap 12 BUN 57 H Creatinine 5.0 H* D Estim Creat Clear Calc 9.2 L eGFR 9 L* BUN/Creatinine Ratio 11 L Glucose 163 H Calculated Osmolality 278 Calcium 9.7 Corrected Calcium 9.9 Phosphorus 3.2 Magnesium 1.8 Total Bilirubin 0.4 AST 11 ALT 12 Alkaline Phosphatase 123 H Total Protein 6.8 Albumin 3.7 Globulin 3.1 Albumin/Globulin Ratio 1.2 ABG Interpretation ABG results: 05/13/24 05/15/24 05/15/24 08:29 15:28 16:03 ABG pH 7.39 7.05 L* D 7.17 L* D ABG pCO2 31 L 63 H D 45 D ABG pO2 78 L 38 L* D 84 D ABG HCO3 19 L 18 L 16 L ABG O2 Saturation 96 59 L 96 ABG Base Excess -5 L -12 L -11 L VBG pH VBG pCO2 VBG pO2 VBG Base Excess 05/16/24 05/17/24 05/18/24 04:38 04:03 04:20 ABG pH 7.28 L D 7.38 D 7.49 H D ABG pCO2 34 D 28 L 30 L ABG pO2 96 85 66 L ABG HCO3 16 L 17 L 23 ABG O2 Saturation 98 97 94 ABG Base Excess -10 L -8 L 0 VBG pH VBG pCO2 VBG pO2 VBG Base Excess 05/19/24 05/20/24 05/21/24 09:05 06:05 22:35 ABG pH 7.30 L D 7.41 D ABG pCO2 49 H D 42 ABG pO2 63 L 63 L ABG HCO3 24 27 H ABG O2 Saturation 91 93 ABG Base Excess -3 2 VBG pH 7.31 L VBG pCO2 50 VBG pO2 39 VBG Base Excess -2 05/26/24 04:17 ABG pH 7.38 ABG pCO2 42 ABG pO2 81 L ABG HCO3 25 ABG O2 Saturation 97 ABG Base Excess 0 VBG pH VBG pCO2 VBG pO2 VBG Base Excess Quality Measures Quality Measures VTE prophylaxis (Heparin) Advance care planning discussed with:: child Assessment & Plan Assessment Current Active Medications: Generic Name Dose Route Start Last Admin Trade Name Freq PRN Reason Stop Dose Admin Albuterol/Ipratropium 3 ml 05/20/24 09:23 05/24/24 18:55 Albuterol/Ipratropium (Duoneb) Rt Jimena 3 Ml Nebu INH 06/19/24 12:59 3 ml Q6HRRT PRN Administration SOB or Wheeze Dextrose 25 ml 05/24/24 15:43 Dextrose 50%-Water Inj 50 Ml Syringe IV 06/23/24 15:42 Q15MIN PRN BG 50-70 responsive npo pt Dextrose 50 ml 05/24/24 15:43 Dextrose 50%-Water Inj 50 Ml Syringe IV 06/23/24 15:42 Q15MIN PRN BG <50 OR BG <70 & pt unresponsive Fentanyl Citrate 25 mcg 05/26/24 13:20 05/27/24 09:46 Fentanyl Cit Inj 50 Mcg/Ml Amp 2ml IVP 05/31/24 13:59 25 mcg Q2HR PRN Administration Pain 7-10 Glucagon 1 mg 05/24/24 15:43 Glucagon Inj 1 Mg Vial IM Q15MIN PRN BG <70, and no IV access Heparin Sodium (Porcine) 2,500 unit 05/17/24 15:52 05/26/24 18:33 Heparin Sod Inj 1000 Unit/Ml Vial 10 Ml INDWELLCAT 05/31/24 15:51 2,500 unit PRN PRN Administration DIALYSIS Hydromorphone HCl 0.25 mg 05/24/24 15:40 05/25/24 18:15 Hydromorphone Inj 2 Mg/Ml Vial IVP 05/29/24 15:31 0.25 mg Q6H PRN Administration Pain 4-10 Fluconazole 100 mls @ 100 mls/hr 05/21/24 14:00 05/26/24 13:55 Diflucan/Ns Ivpb IV 06/03/24 13:59 100 mls/hr QDAY@1400 ANGELICA Administration Norepinephrine/Dextrose 8 mg in 250 mls @ 7.35 mls/hr 05/20/24 15:40 05/24/24 12:39 Levophed In D5w 8mg/250ml IV 06/19/24 06:55 0 mcg/kg/min .Q24H PRN 0 mls/hr PER PROTOCOL Titration Protocol 0.05 MCG/KG/MIN Heparin Sodium/Dextrose 25,000 unit in 250 mls @ 10.212 mls/hr 05/23/24 18:15 05/27/24 07:44 Heparin In D5w Ivpb IV 06/06/24 18:14 12 units/kg/hr .Q24H ANGELICA 10.212 mls/hr Titration Protocol 12 UNITS/KG/HR Amiodarone HCl/Dextrose 360 mg in 200 mls @ 16.667 mls/hr 05/24/24 13:32 05/27/24 02:05 Nexterone Ivpb IV 05/28/24 13:31 16.667 mls/hr .Q12H ANGELICA Administration Albumin Human 25 gm in 100 mls @ 100 mls/min 05/25/24 10:07 05/26/24 15:32 Albuminar-25 Ivpb IV 100 mls/min PRN PRN Administration DIALYSIS Fat Emulsion-Arnett Oil/Soybean Oil 500 mls @ 32 mls/hr 05/27/24 18:00 Clinopid 20% Iv IV 06/26/24 17:59 TuSa@1800 ANGELICA Amino Acids 2,000 mls @ 40 mls/hr 05/26/24 18:00 05/26/24 18:35 Clinimix 5/20 IV 05/27/24 17:59 40 mls/hr QDAY@1800 ANGELICA Administration Magnesium Sulfate 1 gm/ Sodium 2,009.5 mls @ 40.01 mls/hr 05/27/24 18:00 Chloride 30 meq/ Amino Acids IV 05/28/24 17:59 QDAY@1800 ANGELICA Metronidazole 500 mg in 100 mls @ 100 mls/hr 05/27/24 11:15 05/27/24 11:42 Flagyl 500 Mg Iv IV 06/03/24 11:14 100 mls/hr BID ANGELICA Administration Potassium Chloride 20 meq in 100 mls @ 50 mls/hr 05/27/24 16:00 Kcl Ivpb IV 05/27/24 19:59 Q2H ANGELICA Insulin Glargine 12 unit 05/25/24 09:00 05/27/24 08:57 Insulin Glargine (Lantus) 5 Unit/0.05 Ml (Per 5 Units) SC 06/24/24 08:59 12 unit QDAY ANGELICA Administration Insulin Human Lispro 0 unit 05/24/24 18:00 05/27/24 11:45 Insulin Lispro (Admelog) 1 Unit/0.01 Ml Unit SC 06/23/24 17:59 4 unit Q6HR ANGELICA Administration Protocol Ondansetron HCl 4 mg 05/13/24 11:58 05/14/24 12:31 Ondansetron Inj 2 Mg/Ml Inj 2 Ml IV 06/12/24 11:57 4 mg Q6H PRN Administration NAUSEA OR VOMITING Protocol Pantoprazole Sodium 40 mg 05/15/24 21:00 05/27/24 08:49 Pantoprazole Inj 40 Mg Vial IVP 06/14/24 20:59 40 mg BID ANGELICA Administration Pharmacy Consult 1 each 05/16/24 10:27 Pharmacy Renal Dose Adjustment 1 Ea XX 06/15/24 10:26 PRN PRN CONSULT Sodium Chloride 3 ml 05/24/24 19:00 Sodium Chloride Rt Jimena 0.9% 3 Ml Nebu INH 06/23/24 18:59 PRN PRN SOLN Plan Ms. Castellanos is a 69-year-old female with past medical history significant for hypertension, diabetes, CKD stage III, and history of gastric ulcers who presented to the ED on 05/13/2024 after she was found unconscious on the floor. Per chart reviewing prior to this unconsciousness patient was having abdominal pain and generalized weakness with diarrhea and shortness of breath for 2 days. Patient was admitted to the hospital for treatment and management of sepsis secondary to pneumonia. Patient was given 1 L normal saline and started on ceftriaxone and azithromycin. patient underwent ex lap surgery for perforated gastric ulcer. Patient remained intubated postop and is upgraded to the ICU. Neuro: # Acute encephalopathy-improved -Likely multifactorial secondary to sepsis versus metabolic versus neurologic versus medication -Patient is awake and alert and follows commands. Patient is able to respond to yes or no questions verbally Cardiovasc: #shock - resolved DDx: more likely cardiogenic 2/2 afib with RVR, complicated by s/p laparotomy state -S/P aggressive fluid resuscitation, continue to monitor and will give additional fluids as needed -On levophed and vasopression to maintain MAP >65, wean as tolerated. -Status post 1 unit PRBC given 05/15/2024 for hemoglobin below 7 -Continue iv antibiotics and additional fluids as needed and treat underlying cause -Treat underlying cause -during dialysis pt. becomes hypotensive and phenyephrine drip is started to maintain MAP above 65 # New onset A-fib with RVR -Likely secondary to shock in the setting of abdominal surgery -EKG findings consistent with A-fib -Was on Amiodarone 200 twice daily for new onset Afib, but as she was in AFib with RVR, started on amio drip (will continue amio drip while bowel rest) -Heparin drip started (05/23) for anticoagulation -Cardiology consulted #Acute exacerbation of HFpEF #Hx. of CHF -echo 05/16 -estimated EF of 55 to 60%, stage I diastolic dysfunction noted, Moderate to severe posterior MAC -Pt presented with SOB and 2+ edema in LE -elevated BNP from 304 --> 1110 -HD in the setting of anuria -holding guideline directed medical therapy due to shock, will resume when able #Hyperlipidemia -Plan: Hold home atorvastatin as patient is npo. Will reinstate as tolerated #Primary Hypertension -Plan: Hold home amlodipine in setting of shock Pulm: #Acute Hypoxic Respiratory failure likely multifactorial -2/2 to pulmonary edema in the setting of volume overload 2/2 ATN due to shock leading to oligoanuria versus bibasilar pneumonia -Further complicated by bilateral lung atelectasis in the setting of recent abdominal surgery and sedatives use -Patient was intubated and on mechanical ventilation (05/15) and extubated 05/18/2024, currently saturating 95-97 % on 2-3 L NC -Karine prn GI: #Pneumoperitoneum #Peritonitis secondary to perforated gastric ulcer Patient found to have tender abdomen, rigidity in the epigastrium, chest x-ray showed elevation of hemidiaphragm, CT abdomen showed pneumoperitoneum, concern for perforated viscus, general surgeon Dr. Santana was consulted for emergency laparotomy and possible repair of perforated gastric ulcer. Repeat CT abd/pel on 05/20 revealed Pneumoperitoneum, orogastric tube in the stomach, mild free fluid adjacent to the stomach and anterior to the pancreas. ?Patient was given IV fluid boluses, IV albumin 1 PRBC was ordered ?Antibiotic coverage was broadened to Zosyn to cover for anaerobic and enteric pathogens- completed the course - Plan: s/p Exploratory laparotomy & repair of perforated gastric ulcer - 05/15. -Surgery following and on pain management with Dilaudid (hold if RR <15) -GI surgeon Dr. Hernandez was made aware of the situation, and she recommended stopping tube feed and starting slow intermittent suctioning via NG tube. -She was also started on Diflucan 400 Mg IV daily for fungal prophylaxis (started 05/21-) --Miropenem to be D/c'd after the abcess cultures come back negative (started 05/25-05/27) -metronidazole 05/27- -Cefipime x1 given on 05/27 #Acute Upper GI bleed - stable - most likely secondary to perforated gastric ulcer -Patient had a single episode of black tarry stool today-likely setting of recent abdominal surgery - Plan: Continue iv Protonix. -Will monitor for alarm signs of active bleeding with melena or hematochezia #GI ppx - pantoprazole #Diet -hold all tube feedings due to bowel rest. TPN 1000 cc/Qday (started 05/22/24) Renal: #Acute tubular necrosis #Anuria - 2/2 septic shock -Patient has 0 urine production - Baseline Cr appears to be 0.7 - Plan: Patient underwent HD fluid removal and removed 2.1 L on 05/18 and 1.5 L on 05/19, 2L fluid removed 05/21, 2.5 L fluid removed on 05/22 , 3L fluid removed on 05/23, 3L fluid removed 05/25, 2L removed 05/26 - Guajardo catheter in place and monitor urine output closely. - Renally dose medications and avoid nephrotoxic agents -repeat labs in am -Nephrology following Endo: #hypoglycemia, resolved #Diabetes Mellitus type II - A1C 6.3 % 05/21/2024 - Hold home glipizide and januvia - Plan: Continue to monitor blood sugars -insulin sliding scale ordered with lantus 12 units Heme/Onc: #Acute blood loss anemia- stable - 2/2 perforated ulcer- S/P surgical repair -Hgb stable 9.6 Hct 28.3 ?patient received 2 units of PRBC 05/18 due to acutely drop in Hgb below 7. No signs of active bleeding. -Plan: Continue to monitor daily CBC. transfuse for hemoglobin less than 7. ID # abdominal Abscess #Leucocytosis -CT scan shows -Loculated 5-6cm fluid collection posterior to the stomach -completed 10 day course of IV zosyn -On IV Diflucan 400mg IV daily for fungal prophylaxis for 14 days total -Miropenem to be D/c'd after the abscess cultures come back negative- D/c'd on 05/27 -Percutaneous drain catheter in place-250 cc of pus overnight and 20cc bloody fluid during the day (Skin:) #Pressure Ulcer Prevention Disposition: ICU for AHRF & cardiogenic shock DVT Prophylaxis: Heparin drip for coagulation for A-fib GI Prophylaxis: Pantoprozol-40 IV Diet: Nothing p.o. due to bowel rest Lines: central line left IJ for dialysis, right PICC line, accordion drain catheter and SADI drain in place, Guajardo catheter Code status: Full Assessment and plan discussed with my attending physician Dr. Shantal Rivera (PGY-1)- Internal medicine resident Attending Provider Attestation/Addendum Patient seen and examined with above resident, Karol Rivera MD. I agree with the findings, assessment, and plan of care as documented except for any differences below. Patient significantly improved overnight with adequate control of heart rate, she can maintain on amiodarone drip due to inability to utilize GI tract for transition to p.o. regimen. Patient's respiratory status also improved with significant fluid removal in the previous days with ongoing hemodialysis/ultrafiltration. Patient tolerated additional fluid removal today to compensate for her ongoing large volumes secondary to parenteral nutrition. Patient continues to be n.p.o. She has [address], initial surgical drain shows minimal output and secondary accordion placed into peritoneal abscess has reduced drainage and pus has now started to turn into dark bloody mixed fluid that is greenish in appearance. We will await further cultures. Continue on empiric antibiotics with escalation to meropenem prior to tube placement for adequate source control. Complete course of Diflucan for upper GI perforation. Patient has now been maintained off of vasopressors for greater than 24 hours and tolerated hemodialysis without additional support, plan to transfer to telemetry for ongoing management prior to hopeful discharge in the coming days to week. Patient's family was updated at bedside by myself and housestaff. Total critical care time: I personally spent 35 minutes for review of physiologic parameters, directing plan of care throughout the day, coordination of care with other specialist, and counseling patient's family at bedside. This is exclusive of time spent teaching housestaff or performing any separate billable procedures. Patient continues to require critical care services for septic shock secondary to gastric ulcer perforation complicated by acute renal failure on hemodialysis and atrial fibrillation with RVR. Course also complicated by intraperitoneal abscess now status post drain placement.
[2024-05-27] MEDS: POTASSIUM CHL 20 mEq IVPB 20 MEQ/100 ML BAG 50 MEQ IV ×2 (12:52→14:57)
[2024-05-27] MEDS: FLUCONAZOLE/NS 200 MG IVPB 100 ML 100 MG IV (14:20)
--- NOTE | 2024-05-27 16:12 | PD.RESEVENT ---
Documentation for date of: 05/27/24 Event Note Event Note: Signout received at 05/27/2024 69-year-old female with past medical history of prediabetes, CKD stage III A, hypertension, history of ulcers who was brought to the ED after being found unconscious on the floor. Patient was admitted to the floors, however patient developed perforation of gastric ulcer which required surgical intervention. Dr. Santana, general surgery consulted and patient had exploratory laparotomy, repair of perforated gastric ulcer. Postoperatively was transferred to the ICU. During ICU stay patient required pressor support to maintain MAP>65. Patient was later found to have a leak in surgical site which required placement of a percutaneous drainage by IR. Patient was only making minimal urine, Nephrology, Dr. August was consulted and patient underwent hemodialysis. Patient also developed atrial fibrillation with RVR is currently on amiodarone drip, heparin drip. Patient has to be on bowel rest until Wednesday should not get any medications nor any oral intake until Wednesday after staple removal. Patient is on fentanyl patch for pain control. Patient is currently on TPN via PICC line. Patient was successfully weaned off pressors and downgraded to the floors. Hospitalist team will resume care 05/28/2024. Case discussed with my attending Dr. Antoinette Soria MD PGY-1
[2024-05-27] MEDS: MAGNESIUM SULF IV (18:15)
[2024-05-27] MEDS: SODIUM CHLOR ADDITIVE IV (18:15)
[2024-05-27] MEDS: [UNRECOGNIZED DRUG - OTHER] IV (18:15)
[2024-05-27] MEDS: FAT EMUL/OLIVE/SOY/PHOS 20% IV 500 ML 32 ML IV (18:43)
--- NOTE | 2024-05-27 22:36 | PC.NURSE ---
MD Mahmood made aware that pt still in pain after the administration of Fentanyl 25mcg IVP at 2148, BP 101/55 at this time, per MD will put order in.
[2024-05-27] MEDS: HYDROmorphone INJ 2 MG/ML VIAL 0.25 MG IVP (22:44)
--- NOTE | 2024-05-27 23:41 | PC.NURSE ---
Noted a bloody leakage on the upper incision, applied 4x4 dressing and medipore tape, MD Mahmood made aware per MD he will come and see the pt.
--- NOTE | 2024-05-27 23:45 | PC.NURSE ---
MD Mahmood came and examined the pt, per the leakage is from pts coughing, will put order for cough meds.
[2024-05-28] VITALS (11 sets, daily range): BP systolic 103–157; BP diastolic 60–83; PULSE 79–103; RESP 14–24; TEMP 35.9–36.2; O2SAT 97–100; BMI 36.1
[2024-05-28] MEDS: INSULIN LISPRO (AdmeLOG) 1 UNIT/0.01 ML UNIT SC ×3 (00:09→12:10)
[2024-05-28] MEDS: AMIODARONE 360 MG IVPB 360 MG/200 ML BAG 16.667 MG IV (03:00)
[2024-05-28] MEDS: DiphenhydrAMINE INJ 50 MG/ML VIAL 12.5 MG IVP (03:43)
[2024-05-28 05:56] LABS: Basophils # (Auto) 0.1 Thou/mm3 (0.0-0.2); Basophils % (Auto) 1 % (0-2.5); Eosinophils # (Auto) 0.2 Thou/mm3 (0.0-0.5); Eosinophils % (Auto) 1 % (0-10); Hematocrit 27.7 % (36.0-46.0); Hemoglobin 9.3 g/dL (12.0-16.0); Immature Granulocytes % (Auto) 11 % (0-0); Immature Granulocytes Auto 2.24 Thou/mm3 (0.00-0.00); Lymphocytes # (Auto) 1.8 Thou/mm3 (1.0-4.8); Lymphocytes % (Auto) 9 % (10-50); Mean Corpuscular HGB Conc 33.6 g/dl (31.0-37.0); Mean Corpuscular Hemoglobin 27.4 pg (25.0-35.0); Mean Corpuscular Volume 82 fL (80-100); Monocytes # (Auto) 0.9 Thou/mm3 (0.0-0.8); Monocytes % (Auto) 4 % (0-12); Neutrophils # (Auto) 14.4 Thou/mm3 (1.8-7.7); Neutrophils % (Auto) 73 % (37-80); Nucleated Red Blood Cell # 0.19 Thou/mm3 (0.00-0.00); Nucleated Red Blood Cell % 1 /100 WBC (0); Platelet Count 507 Thou/mm3 (140-440); RDW Standard Deviation 52.4 fL (36.4-46.3); Red Blood Count 3.39 Miln/mm3 (4.00-5.20); White Blood Count 19.7 Thou/mm3 (3.6-11.0)
[2024-05-28 06:19] LABS: Alanine Aminotransferase 10 U/L (10-49); Albumin, Serum 3.5 gm/dL (3.4-4.8); Albumin/Globulin Ratio 1.1 (1.2-2.2); Alkaline Phosphatase 138 U/L (46-116); Anion Gap 15 (7-16); Aspartate Amino Transferase 11 U/L (0-34); BUN/Creatinine Ratio 13 Ratio (12-20); Bilirubin,Total 0.3 mg/dL (0.3-1.2); Blood Urea Nitrogen 68 mg/dL (9-23); Calcium 9.5 mg/dL (8.3-10.6); Calcium (Corrected) 9.9 mg/dL (8.5-10.1); Chloride 92 mMol/L (98-107); Creatinine (Component) 5.4 mg/dL (0.6-1.3); Estimated Creatinine Clearance 8.6 mL/min (>60); Globulin 3.1 gm/dL (2.3-3.5); Glucose 114 mg/dL (74-106); Magnesium 1.7 mg/dL (1.6-2.6); Osmolality,Calculated 272 (275-295); Phosphorous 2.7 mg/dL (2.4-5.1); Potassium 3.7 mMol/L (3.4-5.1); Sodium 125 mMol/L (136-145); Total Protein 6.6 gm/dL (5.7-8.2); eGFR 8 See Note
[2024-05-28 06:20] LABS: Partial Thromboplastin Time 77.8 Seconds (22.0-36.0)
[2024-05-28] MEDS: fentaNYL CIT INJ 50 mCg/ML AMP 2ML 25 MCG IVP (08:07)
[2024-05-28] MEDS: metroNIDAZOLE/NS 500 MG IVPB 500 MG/100 ML BAG 100 MG IV (08:08)
[2024-05-28] MEDS: PANTOPRAZOLE INJ 40 MG VIAL IVP ×2 (08:08→22:00)
[2024-05-28] MEDS: INSULIN GLARGINE (Lantus) 5 UNIT/0.05 ML (PER 5 UNITS) 12 UNIT SC (08:09)
[2024-05-28] MEDS: Heparin/D5w 25K 250 ML Ivpb 25,000 UNIT/250 ML BAG 10.212 UNIT IV (08:30)
[2024-05-28] MEDS: ALBUTEROL/IPRATROPIUM (Duoneb) RT SOL 3 ML NEBU INH (09:40)
--- NOTE | 2024-05-28 10:51 | ESPR_ITS ---
Documentation for date of: 05/28/24 Subjective Subjective Interval history: Ms. Castellanos is a [id number] with past medical history of prediabetes, CKD, hypertension, history of ulcers who was admitted to [facility] for sepsis secondary to pneumonia and acute metabolic encephalopathy. Patient was BIBA to the ED after being found unconscious on the floor. According to the son on admission patient's daughter found the patient at 3 AM passed out on the floor and unresponsive. Family is unaware along the patient was on the floor. 2 days ago patient started to develop abdominal pain and weakness all over her body associated with some diarrhea and shortness of breath. Patient's abdominal pain comes and goes from right side to left side of the abdomen. ED course patient was hypertensive tachycardic tachypneic and was saturating 92% on 5 L nasal cannula ED labs significant for WBCs 24.3, bicarb 19.6, glucose 259, lactic acid 2.2, BNP 304, troponin 0.09. 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, colonic diverticulosis, Cervical spine CT showed 3 mm radiolucency in C3 vertebral body Chest CTA showed mild aneurysmal dilatation ascending thoracic aorta AP dimension 4.3 cm and pulmonary artery hypertension with moderate vascular congestion Face CT shows no acute facial fracture, Lumbar spine CT shows no acute lumbar fracture severe acquired spinal stenosis L4-L5, Thoracic spine CT showed no acute fracture Brain MRI with MRA showed equally focal restricted diffusion brainstem medullary level significant stenosis of right P1 P2 segment posterior cerebral artery Postadmission, cardiology was consulted on admission because of elevated troponins, suspicion of NSTEMI type II, patient has acute decompensated heart failure per cardiology evaluation, neurology consulted because of patient's acute metabolic encephalopathy and GI was consulted for suspicion of GI bleed. Eventually on 05/15 rapid response was called for worsening chest pain, patient's map was consistently in 70s, was tachycardic tachypneic. CT angiogram showed pneumoperitoneum multiple air droplets adjacent to and within wall of stomach with suspicion of gastric perforation. General surgery was consulted for emergency surgery and patient had exploratory laparotomy with repair of perforated gastric ulcer with an omental patch. Patient was upgraded to ICU postop for further management patient currently on Levophed and vasopressor due to distributive shock, currently sedated and intubated on mechanical ventilation. Nephrology consulted due to concern of ADILSON. 05/16/24: Patient seen at bedside, patient's daughter present at bedside labs reviewed patient's creatinine 3.0, GFR 16 and BUN 60. Patient's baseline GFR more than 60, does report history of chronic kidney disease. Patient's urine output yesterday 820 mL, there is suspicion of acute kidney injury due to patient's underlying distributive shock versus hypovolemic shock, will continue to monitor patient's urine output and renal panel in a.m., plan of care discussed with patient's family at bedside they want to proceed with dialysis if needed. Will continue to monitor patient. 05/20/24: Patient seen at bedside, was downgraded to floors yesterday, was hypotensive overnight, was upgraded to ICU, currently on pressors, agonal breathing noted, will hold dialysis today, patient did receive dialysis yesterday, had about 1.5 L fluid removed. Patient's urine output continues to remain low. Will continue to monitor patient closely. 05/22/24: Patient seen at bedside in the ICU. Saturates well on 2 L NC, blood pressure 134/80, off pressors. Tries to follow commands. On examination has extensive anasarca. Urine output 210 mL. Patient will receive dialysis today with goal to remove 2 L of fluid. Will continue to monitor patient closely. Labs showed sodium 142, potassium 4.3, BUN 49, creatinine 4.6, EGFR 10. 05/25/2024 Patient currently seen in ICU. On dialysis. More alert and awake. Family at bedside. Urine output still very minimal. Currently on TPN. Spoke to Dr. Murguia. Ultrafiltration 2 L in progress. Edema tad better. On low-dose pressors. 05/26/2024: Patient seen in ICU status post percutaneous drainage by IR, patient continues to need vasopressors during dialysis, patient did receive hemodialysis treatment yesterday, patient has no urine output, scheduled for another hemodialysis session today with goal to remove 2 to 3 L. Will continue to monitor patient. 05/27/2024: Patient seen in ICU, patient did receive dialysis treatment yesterday, had about 2 L worth of fluid removed, overall patient looks significantly improved, has no urine output in the last 24 hours, does have a BALAJI drain and a percutaneous drain placed by IR, with significant drainage.Per ICU plan is to wean patient off pressors and downgraded to telemetry in a.m. 05/28/24: Patient was seen and examined by the bedside in telemetry. No acute overnight events. Patient had a dialysis session yesterday, no need for emergent dialysis, will proceed with dialysis as scheduled on Wednesday. Patient continues to be anuric, gained 1 kg of weight in 1 day. Labs showed sodium 125, potassium 3.7, BUN 68, creatinine 5.4. Will proceed with scheduled dialysis on Wednesday. Exam Vital Signs Temp Pulse Resp BP Pulse Ox O2 Del Method O2 Flow Rate 97.1 F 92 17 103/72 100 Nasal Cannula 1 05/28/24 08:00 05/28/24 09:43 05/28/24 09:43 05/28/24 08:00 05/28/24 09:43 05/28/24 08:00 05/28/24 09:43 FiO2 35 05/25/24 12:31 Narrative Exam Physical Exam General: Awake and in no acute distress. Tracks with eyes, is able to nod to answer questions. HEENT: Normocephalic, atraumatic, mucous membranes moist. Heart: Regular rate and rhythm, no murmurs. Lungs: Clear to auscultation with no wheezing or crackles. Abdomen: Soft, nondistended, nontender, positive bowel sounds. ?No guarding or rebound tenderness. drains ++ Neurologic: Patient awake, no gross neurological deficit, and patient able to move all 4 extremities. Extremities: Lower and upper extremities mild edema. Objective Labs 05/28/24 05:13 05/28/24 16:37 Labs: Laboratory Results - last 24 hr 05/28/24 05:13 WBC 19.7 H RBC 3.39 L Hgb 9.3 L Hct 27.7 L MCV 82 MCH 27.4 MCHC 33.6 RDW Std Deviation 52.4 H Plt Count 507 H Neut % (Auto) 73 Lymph % (Auto) 9 L [place] % (Auto) 4 Eos % (Auto) 1 Baso % (Auto) 1 Neut # (Auto) 14.4 H Lymph # (Auto) 1.8 [place] # (Auto) 0.9 H Eos # (Auto) 0.2 Baso # (Auto) 0.1 Immature Gran # (Auto) 2.24 H Absolute Nucleated RBC 0.19 H Immature Gran % 11 H Nucleated RBC % 1 H APTT 77.8 H Sodium 125 L Potassium 3.7 D Chloride 92 L Carbon Dioxide 18.0 L Anion Gap 15 BUN 68 H Creatinine 5.4 H* Estim Creat Clear Calc 8.6 L eGFR 8 L* BUN/Creatinine Ratio 13 Glucose 114 H Calculated Osmolality 272 L Calcium 9.5 Corrected Calcium 9.9 Phosphorus 2.7 Magnesium 1.7 Total Bilirubin 0.3 AST 11 ALT 10 Alkaline Phosphatase 138 H Total Protein 6.6 Albumin 3.5 Globulin 3.1 Albumin/Globulin Ratio 1.1 L ABG Interpretation ABG results: 05/13/24 05/15/24 05/15/24 08:29 15:28 16:03 ABG pH 7.39 7.05 L* D 7.17 L* D ABG pCO2 31 L 63 H D 45 D ABG pO2 78 L 38 L* D 84 D ABG HCO3 19 L 18 L 16 L ABG O2 Saturation 96 59 L 96 ABG Base Excess -5 L -12 L -11 L VBG pH VBG pCO2 VBG pO2 VBG Base Excess 05/16/24 05/17/24 05/18/24 04:38 04:03 04:20 ABG pH 7.28 L D 7.38 D 7.49 H D ABG pCO2 34 D 28 L 30 L ABG pO2 96 85 66 L ABG HCO3 16 L 17 L 23 ABG O2 Saturation 98 97 94 ABG Base Excess -10 L -8 L 0 VBG pH VBG pCO2 VBG pO2 VBG Base Excess 05/19/24 05/20/24 05/21/24 09:05 06:05 22:35 ABG pH 7.30 L D 7.41 D ABG pCO2 49 H D 42 ABG pO2 63 L 63 L ABG HCO3 24 27 H ABG O2 Saturation 91 93 ABG Base Excess -3 2 VBG pH 7.31 L VBG pCO2 50 VBG pO2 39 VBG Base Excess -2 05/26/24 04:17 ABG pH 7.38 ABG pCO2 42 ABG pO2 81 L ABG HCO3 25 ABG O2 Saturation 97 ABG Base Excess 0 VBG pH VBG pCO2 VBG pO2 VBG Base Excess Quality Measures Quality Measures VTE prophylaxis (Heparin) Advance care planning discussed with:: other Assessment & Plan Assessment Current Active Medications: Generic Name Dose Route Start Last Admin Trade Name Freq PRN Reason Stop Dose Admin Albuterol/Ipratropium 3 ml 05/27/24 18:08 05/28/24 09:40 Albuterol/Ipratropium (Duoneb) Rt Jimena 3 Ml Nebu INH 06/26/24 18:07 3 ml Q2HR PRN Administration SHORTNESS OF BREATH OR WHEEZE Dextrose 25 ml 05/24/24 15:43 Dextrose 50%-Water Inj 50 Ml Syringe IV 06/23/24 15:42 Q15MIN PRN BG 50-70 responsive npo pt Dextrose 50 ml 05/24/24 15:43 Dextrose 50%-Water Inj 50 Ml Syringe IV 06/23/24 15:42 Q15MIN PRN BG <50 OR BG <70 & pt unresponsive Fentanyl Citrate 25 mcg 05/26/24 13:20 05/28/24 08:07 Fentanyl Cit Inj 50 Mcg/Ml Amp 2ml IVP 05/31/24 13:59 25 mcg Q2HR PRN Administration Pain 7-10 Glucagon 1 mg 05/24/24 15:43 Glucagon Inj 1 Mg Vial IM Q15MIN PRN BG <70, and no IV access Heparin Sodium (Porcine) 2,500 unit 05/17/24 15:52 05/26/24 18:33 Heparin Sod Inj 1000 Unit/Ml Vial 10 Ml INDWELLCAT 05/31/24 15:51 2,500 unit PRN PRN Administration DIALYSIS Hydromorphone HCl 0.25 mg 05/24/24 15:40 05/25/24 18:15 Hydromorphone Inj 2 Mg/Ml Vial IVP 05/29/24 15:31 0.25 mg Q6H PRN Administration Pain 4-10 Fluconazole 100 mls @ 100 mls/hr 05/21/24 14:00 05/27/24 15:20 Diflucan/Ns Ivpb IV 06/03/24 13:59 Infused QDAY@1400 ANGELICA Infusion Heparin Sodium/Dextrose 25,000 unit in 250 mls @ 10.212 mls/hr 05/23/24 18:15 05/28/24 08:30 Heparin In D5w Ivpb IV 06/06/24 18:14 12 units/kg/hr .Q24H ANGELICA 10.212 mls/hr Administration Protocol 12 UNITS/KG/HR Amiodarone HCl/Dextrose 360 mg in 200 mls @ 16.667 mls/hr 05/24/24 13:32 05/28/24 03:00 Nexterone Ivpb IV 05/28/24 13:31 16.667 mls/hr .Q12H ANGELICA Administration Albumin Human 25 gm in 100 mls @ 100 mls/min 05/25/24 10:07 05/26/24 15:32 Albuminar-25 Ivpb IV 100 mls/min PRN PRN Administration DIALYSIS Fat Emulsion-[place] Oil/Soybean Oil 500 mls @ 32 mls/hr 05/27/24 18:00 05/27/24 18:43 Clinopid 20% Iv IV 06/26/24 17:59 32 mls/hr TuSa@1800 ANGELICA Administration Magnesium Sulfate 1 gm/ Sodium 2,009.5 mls @ 40.01 mls/hr 05/27/24 18:00 05/27/24 18:15 Chloride 30 meq/ Amino Acids IV 05/28/24 17:59 40.01 mls/hr QDAY@1800 ANGELICA Administration Magnesium Sulfate 1 gm/ Sodium 2,017 mls @ 40 mls/hr 05/28/24 18:00 Chloride 60 meq/ Amino Acids IV 05/29/24 17:59 QDAY@1800 ANGELICA Meropenem 500 mg/ Sodium 50 mls @ 100 mls/hr 05/28/24 10:45 Chloride IV 06/04/24 10:44 QDAY ANGELICA Insulin Glargine 12 unit 05/25/24 09:00 05/28/24 08:09 Insulin Glargine (Lantus) 5 Unit/0.05 Ml (Per 5 Units) SC 06/24/24 08:59 12 unit QDAY ANGELICA Administration Insulin Human Lispro 0 unit 05/24/24 18:00 05/28/24 05:27 Insulin Lispro (Admelog) 1 Unit/0.01 Ml Unit SC 06/23/24 17:59 2 unit Q6HR ANGELICA Administration Protocol Ondansetron HCl 4 mg 05/13/24 11:58 05/14/24 12:31 Ondansetron Inj 2 Mg/Ml Inj 2 Ml IV 06/12/24 11:57 4 mg Q6H PRN Administration NAUSEA OR VOMITING Protocol Pantoprazole Sodium 40 mg 05/15/24 21:00 05/28/24 08:08 Pantoprazole Inj 40 Mg Vial IVP 06/14/24 20:59 40 mg BID ANGELICA Administration Pharmacy Consult 1 each 05/16/24 10:27 Pharmacy Renal Dose Adjustment 1 Ea XX 06/15/24 10:26 PRN PRN CONSULT Sodium Chloride 3 ml 05/24/24 19:00 Sodium Chloride Rt Jimena 0.9% 3 Ml Nebu INH 06/23/24 18:59 PRN PRN SOLN Plan Summary: Ms. Castellanos is a [id number] with past medical history of prediabetes, CKD, hypertension, history of ulcers who was admitted to [facility] for sepsis secondary to pneumonia and acute metabolic encephalopathy. Patient is currently sedated intubated in ICU status post exploratory laparotomy with repair of perforated gastric ulcer with an omental patch. Nephrology consulted for acute kidney injury. #Acute kidney injury #Acute Tubular Necrosis 2/2 shock #Anasarca, improving #Hyponatremia Patient currently seems to be in ATN probably ischemic from fluctuations in blood pressure and underlying shock- started her on dialysis. Patient currently seen on dialysis. Tolerating dialysis without any problems. Received dialysis treatment yesterday, had about 2 L worth of fluid removed yesterday.. Plan of care discussed with the dialysis nurse. Please see dialysis flowsheet for further details. Patient continues to have no urine output, 0 mL urine produced in the last 24 hours Plan -Dialysis on Wednesday -Renally dose medications -Avoid nephrotoxic agents -Monitor urine output, strict I&O's -Follow renal panel in a.m. - continue with fluid restriction Plan discussed with hospitalist team. #Metabolic acidosis, resolved #Lactic Acidosis #Acute Encephalopathy #Acute ischemic stroke #Distributive shock #Acute decompensated HF #Elevated Troponin #Hyperlipidemia #Primary Hypertension #Acute Hypoxic Respiratory failure #Pneumoperitoneum #Peritonitis secondary to perforated gastric ulcer #Acute Upper GI bleed #Diabetes Mellitus type II #Acute anemia Management as per primary team, Plan of care discussed with attending Dr. August. Altagracia Kim MD, PGY 1. Attending Provider Attestation/Addendum Patient seen and examined with resident physician Dr. Frias. Note reviewed, agree with findings and recommendations. Patient moved to telemetry. Alert and awake. Will need outpatient dialysis arrangements. Needs PermCath. Noted hyponatremia-will cut down on the TPN to 20 mL/h. Hep panel/PPD ordered.
[2024-05-28] MEDS: MEROPENEM INJ 500 MG in SODIUM CHLORIDE 0.9% (P) 50 ML 100 MG IV (11:09)
[2024-05-28] MEDS: fentaNYL CIT INJ 50 mCg/ML AMP 2ML 30 MCG IVP (11:12)
[2024-05-28] MEDS: FLUCONAZOLE/NS 200 MG IVPB 100 ML 100 MG IV (14:05)
[2024-05-28 14:19] LABS: Lactate (Lactic Acid) 1.4 mMol/L (0.4-2.0)
[2024-05-28 14:31] LABS: Sodium 120 mMol/L (136-145)
--- NOTE | 2024-05-28 15:26 | ESPR_ITS ---
<Statement entered by Oralia Sifuentes MD - 05/28/24 16:15> Patient was seen and examined at bedside. Patient was downgraded from ICU yesterday. At this time patient seems to be less restless, she reported that she feels feverish however but the temperature was within normal limits, oxygen saturation 100% on room air. At this time she reported good pain control. We noticed today that her sodium level downtrending from 1 29-1 25 with serum osmolality of 272. For that reason we repeated sodium level and it came back 120 we consulted a hook up driver and she recommended to go down on the TPN to 20 mL/h. She believes that her hyponatremia is iatrogenic. Will also order for the patient sodium checks every 4 hours. Both drains continue to have purulent grayish discharge. WBC also increased from 17-19.7. For that reason we will keep the patient on bowel rest and on TPN. Pending general surgery recommendations Dr. Silva. We also started the patient on meropenem, will continue fluconazole and we DC'd Flagyl. Overnight, patient reported that she was in mild pain we increased her fentanyl patch dose to 30 mcg. For her A-fib with RVR patient was started on amiodarone drip by the cardiology team. Because the patient cannot tolerate feeding at this time. Amiodarone has been completed, Dr. Bates recommended to give metoprolol pushes in case of an incidence of A-fib with RVR. Regarding her anuria patient has followed by Dr. August at this time she is getting dialysis as needed. Next session of dialysis can to be done tomorrow. Patient may require outpatient dialysis on discharge. Her pneumonia seems to be improving however the daughter reported that the patient still produce some phlegm for that reason we ordered for the patient incentive spirometry. - Patient's plan and care discussed with my attending, Dr. Antoinette Sifuentes MD Internal Medicine PGY-2 Documentation for date of: 05/28/24 Subjective Subjective Interval history: Patient examined at bedside today. Was given Benadryl x 1 overnight. Patient reports she feels hot in her body, and reports that she has been having generalized pain as well. Daughter present at bedside. No other complaints at this time Exam Vital Signs Temp Pulse Resp BP Pulse Ox O2 Del Method O2 Flow Rate 96.9 F 93 24 H 139/80 H 97 Room Air 1 05/28/24 12:00 05/28/24 12:00 05/28/24 12:00 05/28/24 12:00 05/28/24 12:00 05/28/24 12:00 05/28/24 09:43 FiO2 35 05/25/24 12:31 Narrative Exam General: AAOx3, appears to be in some distress HEENT: Moist mucous membranes, conjunctiva clear, EOMI, PERRLA, Cardiovascular: S1, S2, radial pulses +2 bilat, Irregularly irregular rhythm Pulmonary: CTAB bilat no cough, no wheezing GI: Ese present s/p Ex lap, Sadi and accordion drains present, draining greyish purulent fluid Extremities: No presence of trace or pitting edema in lower extremities bilaterally, dorsalis pedis pulses +2 bilaterally, feet cold to touch bilat Skin: Delayed cap refill Neuro: AAOx3, no focal motor or sensory deficits in the UE or LE bilat Psych: Cooperative Objective Labs 05/29/24 05:45 05/29/24 05:45 Labs: Laboratory Results - last 24 hr 05/28/24 05/28/24 05:13 14:08 WBC 19.7 H RBC 3.39 L Hgb 9.3 L Hct 27.7 L MCV 82 MCH 27.4 MCHC 33.6 RDW Std Deviation 52.4 H Plt Count 507 H Neut % (Auto) 73 Lymph % (Auto) 9 L [place] % (Auto) 4 Eos % (Auto) 1 Baso % (Auto) 1 Neut # (Auto) 14.4 H Lymph # (Auto) 1.8 [place] # (Auto) 0.9 H Eos # (Auto) 0.2 Baso # (Auto) 0.1 Immature Gran # (Auto) 2.24 H Absolute Nucleated RBC 0.19 H Immature Gran % 11 H Nucleated RBC % 1 H APTT 77.8 H Sodium 125 L 120 L Potassium 3.7 D Chloride 92 L Carbon Dioxide 18.0 L Anion Gap 15 BUN 68 H Creatinine 5.4 H* Estim Creat Clear Calc 8.6 L eGFR 8 L* BUN/Creatinine Ratio 13 Glucose 114 H Calculated Osmolality 272 L Lactic Acid 1.4 Calcium 9.5 Corrected Calcium 9.9 Phosphorus 2.7 Magnesium 1.7 Total Bilirubin 0.3 AST 11 ALT 10 Alkaline Phosphatase 138 H Total Protein 6.6 Albumin 3.5 Globulin 3.1 Albumin/Globulin Ratio 1.1 L ABG Interpretation ABG results: 05/13/24 05/15/24 05/15/24 08:29 15:28 16:03 ABG pH 7.39 7.05 L* D 7.17 L* D ABG pCO2 31 L 63 H D 45 D ABG pO2 78 L 38 L* D 84 D ABG HCO3 19 L 18 L 16 L ABG O2 Saturation 96 59 L 96 ABG Base Excess -5 L -12 L -11 L VBG pH VBG pCO2 VBG pO2 VBG Base Excess 05/16/24 05/17/24 05/18/24 04:38 04:03 04:20 ABG pH 7.28 L D 7.38 D 7.49 H D ABG pCO2 34 D 28 L 30 L ABG pO2 96 85 66 L ABG HCO3 16 L 17 L 23 ABG O2 Saturation 98 97 94 ABG Base Excess -10 L -8 L 0 VBG pH VBG pCO2 VBG pO2 VBG Base Excess 05/19/24 05/20/24 05/21/24 09:05 06:05 22:35 ABG pH 7.30 L D 7.41 D ABG pCO2 49 H D 42 ABG pO2 63 L 63 L ABG HCO3 24 27 H ABG O2 Saturation 91 93 ABG Base Excess -3 2 VBG pH 7.31 L VBG pCO2 50 VBG pO2 39 VBG Base Excess -2 05/26/24 04:17 ABG pH 7.38 ABG pCO2 42 ABG pO2 81 L ABG HCO3 25 ABG O2 Saturation 97 ABG Base Excess 0 VBG pH VBG pCO2 VBG pO2 VBG Base Excess Quality Measures Quality Measures VTE prophylaxis (Heparin) Advance care planning discussed with:: patient Assessment & Plan Assessment Current Active Medications: Generic Name Dose Route Start Last Admin Trade Name Freq PRN Reason Stop Dose Admin Albuterol/Ipratropium 3 ml 05/27/24 18:08 05/28/24 09:40 Albuterol/Ipratropium (Duoneb) Rt Jimena 3 Ml Nebu INH 06/26/24 18:07 3 ml Q2HR PRN Administration SHORTNESS OF BREATH OR WHEEZE Dextrose 25 ml 05/24/24 15:43 Dextrose 50%-Water Inj 50 Ml Syringe IV 06/23/24 15:42 Q15MIN PRN BG 50-70 responsive npo pt Dextrose 50 ml 05/24/24 15:43 Dextrose 50%-Water Inj 50 Ml Syringe IV 06/23/24 15:42 Q15MIN PRN BG <50 OR BG <70 & pt unresponsive Fentanyl Citrate 30 mcg 05/28/24 10:53 05/28/24 11:12 Fentanyl Cit Inj 50 Mcg/Ml Amp 2ml IVP 05/31/24 13:59 30 mcg Q2HR PRN Administration Pain 7-10 Glucagon 1 mg 05/24/24 15:43 Glucagon Inj 1 Mg Vial IM Q15MIN PRN BG <70, and no IV access Heparin Sodium (Porcine) 2,500 unit 05/17/24 15:52 05/26/24 18:33 Heparin Sod Inj 1000 Unit/Ml Vial 10 Ml INDWELLCAT 05/31/24 15:51 2,500 unit PRN PRN Administration DIALYSIS Hydromorphone HCl 0.25 mg 05/24/24 15:40 05/25/24 18:15 Hydromorphone Inj 2 Mg/Ml Vial IVP 05/29/24 15:31 0.25 mg Q6H PRN Administration Pain 4-10 Fluconazole 100 mls @ 100 mls/hr 05/21/24 14:00 05/28/24 14:05 Diflucan/Ns Ivpb IV 06/03/24 13:59 100 mls/hr QDAY@1400 ANGELICA Administration Heparin Sodium/Dextrose 25,000 unit in 250 mls @ 10.212 mls/hr 05/23/24 18:15 05/28/24 08:30 Heparin In D5w Ivpb IV 06/06/24 18:14 12 units/kg/hr .Q24H ANGELICA 10.212 mls/hr Administration Protocol 12 UNITS/KG/HR Albumin Human 25 gm in 100 mls @ 100 mls/min 05/25/24 10:07 05/26/24 15:32 Albuminar-25 Ivpb IV 100 mls/min PRN PRN Administration DIALYSIS Fat Emulsion-Linn Oil/Soybean Oil 500 mls @ 32 mls/hr 05/27/24 18:00 05/27/24 18:43 Clinopid 20% Iv IV 06/26/24 17:59 32 mls/hr TuSa@1800 ANGELICA Administration Magnesium Sulfate 1 gm/ Sodium 2,009.5 mls @ 40.01 mls/hr 05/27/24 18:00 05/27/24 18:15 Chloride 30 meq/ Amino Acids IV 05/28/24 17:59 40.01 mls/hr QDAY@1800 ANGELICA Administration Magnesium Sulfate 1 gm/ Sodium 2,032 mls @ 20 mls/hr 05/28/24 18:00 Chloride 120 meq/ Amino Acids IV 05/29/24 17:59 QDAY@1800 ANGELICA Meropenem 500 mg/ Sodium 50 mls @ 100 mls/hr 05/28/24 10:45 05/28/24 11:09 Chloride IV 06/04/24 10:44 100 mls/hr QDAY ANGELICA Administration Insulin Glargine 12 unit 05/25/24 09:00 05/28/24 08:09 Insulin Glargine (Lantus) 5 Unit/0.05 Ml (Per 5 Units) SC 06/24/24 08:59 12 unit QDAY ANGELICA Administration Insulin Human Lispro 0 unit 05/24/24 18:00 05/28/24 12:10 Insulin Lispro (Admelog) 1 Unit/0.01 Ml Unit SC 06/23/24 17:59 2 unit Q6HR ANGELICA Administration Protocol Ondansetron HCl 4 mg 05/13/24 11:58 05/14/24 12:31 Ondansetron Inj 2 Mg/Ml Inj 2 Ml IV 06/12/24 11:57 4 mg Q6H PRN Administration NAUSEA OR VOMITING Protocol Pantoprazole Sodium 40 mg 05/15/24 21:00 05/28/24 08:08 Pantoprazole Inj 40 Mg Vial IVP 06/14/24 20:59 40 mg BID ANGELICA Administration Pharmacy Consult 1 each 05/16/24 10:27 Pharmacy Renal Dose Adjustment 1 Ea XX 06/15/24 10:26 PRN PRN CONSULT Sodium Chloride 3 ml 05/24/24 19:00 Sodium Chloride Rt Jimena 0.9% 3 Ml Nebu INH 06/23/24 18:59 PRN PRN SOLN Plan Assessment: Ms. Castellanos is a 69-year-old female with past medical history significant for hypertension, diabetes, CKD stage III, and history of gastric ulcers who presented to the ED on 05/13/2024 after she was found unconscious on the floor. Per chart reviewing prior to this unconsciousness patient was having abdominal pain and generalized weakness with diarrhea and shortness of breath for 2 days. Patient was admitted to the hospital for treatment and management of sepsis secondary to pneumonia. Patient was given 1 L normal saline and started on ceftriaxone and azithromycin. patient underwent ex lap surgery for perforated gastric ulcer. Patient remained intubated postop and is upgraded to the ICU. #Pneumoperitoneum #Peritonitis secondary to perforated gastric ulcer #Abdominal Abscess, status post percutaneous drainage #Leukocytosis Patient found to have tender abdomen, rigidity in the epigastrium, chest x-ray showed elevation of hemidiaphragm, CT abdomen showed pneumoperitoneum, concern for perforated viscus, general surgeon Dr. Santana was consulted for emergency laparotomy and possible repair of perforated gastric ulcer. Repeat CT abd/pel on 05/20 revealed Pneumoperitoneum, orogastric tube in the stomach, mild free fluid adjacent to the stomach and anterior to the pancreas. s/p Exploratory laparotomy & repair of perforated gastric ulcer - 05/15. -Surgery following and on pain management with Dilaudid (hold if RR <15) -GI surgeon Dr. Hernandez was made aware of the situation, and she recommended stopping tube feed and starting slow intermittent suctioning via NG tube. -She was also started on Diflucan 400 Mg IV daily for fungal prophylaxis (started 05/21-) Plan: ?Continuing meropenem and Diflucan at this time ?Follow-up with abscess culture ?Pain control Fentanyl 30 mcg every 2 hours as needed ?Continue with TPN #New onset A-fib with RVR -Likely secondary to shock in the setting of abdominal surgery -EKG findings consistent with A-fib -Was on Amiodarone 200 twice daily for new onset Afib, but as she was in AFib with RVR, Plan: ?Cardiology consulted, appreciate recs ?Continue with heparin drip and amio drip #Hypoosmolar Hyponatremia, worsening Likely secondary due to fluid overload Patient is getting TPN, sodium has been going down, was 125 today repeat showed 120 Spoke with nephrology, recommend to decrease TPN rate to 20 mL/hr Plan: ?TPN 20 cc/hour ?Sodium checks every 4 hours #Acute tubular necrosis #Anuria - 2/2 septic shock -Patient has 0 urine production - Baseline Cr appears to be 0.7 Plan: ?Patient underwent HD fluid removal and removed 2.1 L on 05/18 and 1.5 L on 05/19, 2L fluid removed 05/21, 2.5 L fluid removed on 05/22 , 3L fluid removed on 05/23, 3L fluid removed 05/25, 2L removed 05/26 - Guajardo catheter in place and monitor urine output closely. - Renally dose medications and avoid nephrotoxic agents -repeat labs in am -Nephrology following ?Dialysis tomorrow #Acute Hypoxic Respiratory failure likely multifactorial -2/2 to pulmonary edema in the setting of volume overload 2/2 ATN due to shock leading to oligoanuria versus bibasilar pneumonia -Further complicated by bilateral lung atelectasis in the setting of recent abdominal surgery and sedatives use -Patient was intubated and on mechanical ventilation (05/15) and extubated 05/18/2024, currently saturating 95-97 % on 2-3 L NC -Duonebs prn #Acute Upper GI bleed - stable - most likely secondary to perforated gastric ulcer -Patient had a single episode of black tarry stool today-likely setting of recent abdominal surgery - Plan: Continue iv Protonix. -Will monitor for alarm signs of active bleeding with melena or hematochezia #Hx of Diabetes Mellitus type II - A1C 6.3 % 05/21/2024 - Hold home glipizide and januvia - Plan: Continue to monitor blood sugars -insulin sliding scale ordered with lantus 12 units #Hyperlipidemia Plan: -Hold home atorvastatin as patient is npo. Will reinstate as tolerated #Primary Hypertension Plan: Holding on resuming home blood pressure medicines at this time #Acute exacerbation of HFpEF -echo 05/16 -estimated EF of 55 to 60%, stage I diastolic dysfunction noted, Moderate to severe posterior MAC -Pt presented with SOB and 2+ edema in LE -elevated BNP from 304 --> 1110 -HD in the setting of anuria -holding guideline directed medical therapy due to shock, will resume when able #Acute blood loss anemia, stable 2/2 perforated ulcer- S/P surgical repair Hgb stable 9.6 Hct 28.3 patient received 2 units of PRBC 05/18 due to acutely drop in Hgb below 7. No signs of active bleeding. Plan: -Continue to monitor daily CBC. transfuse for hemoglobin less than 7. # Acute encephalopathy-improved -Likely multifactorial secondary to sepsis versus metabolic versus neurologic versus medication -Patient is awake and alert and follows commands. Patient is able to respond to yes or no questions verbally #shock - resolved DDx: more likely cardiogenic 2/2 afib with RVR, complicated by s/p laparotomy state -S/P aggressive fluid resuscitation, continue to monitor and will give additional fluids as needed -On levophed and vasopression to maintain MAP >65, wean as tolerated. -Status post 1 unit PRBC given 05/15/2024 for hemoglobin below 7 -Continue iv antibiotics and additional fluids as needed and treat underlying cause -Treat underlying cause -during dialysis pt. becomes hypotensive and phenyephrine drip is started to maintain MAP above 65 #Health Maintenance Disposition: Telemetry DVT prophylaxis: Heparin drip GI prophylaxis:Protonix 40 BID Diet: NPO Lines: Accordion drain, SADI drain, Guajardo CODE STATUS: Full Patient seen and care discussed with my senior resident, Dr. Sifuentes, and my attending physician, Dr. Antoinette Mathews, PGY-1 Attending Provider Attestation/Addendum I have examined the patient, reviewed labs and imaging findings, discussed the case with the resident(s), and reviewed entered orders. I agree with the plan of care as outlined in this note, with these additional summaries/recommendations: Patient seen at bedside. Patient downgraded from the ICU overnight. Patient was admitted to ICU for distributive shock in the setting of perforated gastric ulcer and intra-abdominal abscesses. Patient currently has 2 intra-abdominal drains in place draining grayish/purulent material. General surgery following. Patient continued on bowel rest and TPN. Continue meropenem and fluconazole. Infectious disease following and recommendations appreciated. 05/23 blood cultures show no growth and intra-abdominal culture pending with gram stain showing 4+ WBC with no organisms, Patient reported increased pain and fentanyl increased to 30 mcg every 2 hours as needed. Patient developed acute renal failure and nephrology. Patient receiving hemodialysis and will arrange outpatient chair time with case management. Continue to avoid nephrotoxic agents and renally dose medications. Patient developed new onset atrial fibrillation with rapid ventricular response in the ICU. Continue amiodarone and heparin gtt. aPTT currently at goal and 77.8 seconds today. Patient developed worsening hyponatremia with repeat check 120 which is possibly related to TPN. Medical team discussed case with nephrology and we will decrease TPN to 20 cc/h. Continue to trend sodium and may need to discontinue TPN if sodium downtrends again. Continue basal and bolus insulin for diabetes mellitus type 2. A1C 6.3%. Patient and daughter updated at bedside. All questions answered to satisfaction. Repeat hematology and chemistry panel in AM. Dr. Curry
--- NOTE | 2024-05-28 15:34 | ESPR_ITS ---
Documentation for date of: 05/28/24 Subjective Subjective Interval history: Downward trending hemoglobin hematocrit at 9.6 and 27.7 No evidence of any acute GI bleed Exam Vital Signs Temp Pulse Resp BP Pulse Ox O2 Del Method O2 Flow Rate 96.9 F 93 24 H 139/80 H 97 Room Air 1 05/28/24 12:00 05/28/24 12:00 05/28/24 12:00 05/28/24 12:00 05/28/24 12:00 05/28/24 12:00 05/28/24 09:43 FiO2 35 05/25/24 12:31 Objective Labs 05/28/24 05:13 05/28/24 14:08 Labs: Laboratory Results - last 24 hr 05/28/24 05/28/24 05:13 14:08 WBC 19.7 H RBC 3.39 L Hgb 9.3 L Hct 27.7 L MCV 82 MCH 27.4 MCHC 33.6 RDW Std Deviation 52.4 H Plt Count 507 H Neut % (Auto) 73 Lymph % (Auto) 9 L [place] % (Auto) 4 Eos % (Auto) 1 Baso % (Auto) 1 Neut # (Auto) 14.4 H Lymph # (Auto) 1.8 [place] # (Auto) 0.9 H Eos # (Auto) 0.2 Baso # (Auto) 0.1 Immature Gran # (Auto) 2.24 H Absolute Nucleated RBC 0.19 H Immature Gran % 11 H Nucleated RBC % 1 H APTT 77.8 H Sodium 125 L 120 L Potassium 3.7 D Chloride 92 L Carbon Dioxide 18.0 L Anion Gap 15 BUN 68 H Creatinine 5.4 H* Estim Creat Clear Calc 8.6 L eGFR 8 L* BUN/Creatinine Ratio 13 Glucose 114 H Calculated Osmolality 272 L Lactic Acid 1.4 Calcium 9.5 Corrected Calcium 9.9 Phosphorus 2.7 Magnesium 1.7 Total Bilirubin 0.3 AST 11 ALT 10 Alkaline Phosphatase 138 H Total Protein 6.6 Albumin 3.5 Globulin 3.1 Albumin/Globulin Ratio 1.1 L Impressions Impression: # Acute posthemorrhagic anemia # perforated gastric ulcer requiring surgical intervention continue current management ABG Interpretation ABG results: 05/13/24 05/15/24 05/15/24 08:29 15:28 16:03 ABG pH 7.39 7.05 L* D 7.17 L* D ABG pCO2 31 L 63 H D 45 D ABG pO2 78 L 38 L* D 84 D ABG HCO3 19 L 18 L 16 L ABG O2 Saturation 96 59 L 96 ABG Base Excess -5 L -12 L -11 L VBG pH VBG pCO2 VBG pO2 VBG Base Excess 05/16/24 05/17/24 05/18/24 04:38 04:03 04:20 ABG pH 7.28 L D 7.38 D 7.49 H D ABG pCO2 34 D 28 L 30 L ABG pO2 96 85 66 L ABG HCO3 16 L 17 L 23 ABG O2 Saturation 98 97 94 ABG Base Excess -10 L -8 L 0 VBG pH VBG pCO2 VBG pO2 VBG Base Excess 05/19/24 05/20/24 05/21/24 09:05 06:05 22:35 ABG pH 7.30 L D 7.41 D ABG pCO2 49 H D 42 ABG pO2 63 L 63 L ABG HCO3 24 27 H ABG O2 Saturation 91 93 ABG Base Excess -3 2 VBG pH 7.31 L VBG pCO2 50 VBG pO2 39 VBG Base Excess -2 05/26/24 04:17 ABG pH 7.38 ABG pCO2 42 ABG pO2 81 L ABG HCO3 25 ABG O2 Saturation 97 ABG Base Excess 0 VBG pH VBG pCO2 VBG pO2 VBG Base Excess Assessment & Plan A&P Narrative here since 05/13. so on rx a long time now. usual rx for most things is 7d. will leave on merrem thru weekend but unless collection in abd grows a likely pathogen, may look at cessation on Wednesday Time Spent With Patient Time: Total time spent is greater than 50% in coordination of care (as documented) at patient's floor/unit and/or counseling patient:
[2024-05-28 17:12] LABS: Sodium 121 mMol/L (136-145)
[2024-05-28] MEDS: SODIUM CHLOR ADDITIVE IV (18:21)
[2024-05-28] MEDS: MAGNESIUM SULF IV (18:21)
[2024-05-28] MEDS: [UNRECOGNIZED DRUG - OTHER] IV (18:21)
[2024-05-28] MEDS: TUBERCULIN PPD INJ 5 UNIT/0.1 ML DOSE ID (19:51)
[2024-05-28 21:25] LABS: Sodium 124 mMol/L (136-145)
[2024-05-28] MEDS: LORazepam 2 MG/ML VIAL 0.25 MG IVP (23:14)
[2024-05-29] VITALS (27 sets, daily range): BP systolic 87–133; BP diastolic 45–79; PULSE 63–100; RESP 13–95; TEMP 35.6–36.1; O2SAT 94–100
[2024-05-29 01:49] LABS: Sodium 125 mMol/L (136-145)
[2024-05-29 06:13] LABS: Basophils # (Auto) 0.2 Thou/mm3 (0.0-0.2); Basophils % (Auto) 1 % (0-2.5); Eosinophils # (Auto) 0.3 Thou/mm3 (0.0-0.5); Eosinophils % (Auto) 1 % (0-10); Hematocrit 27.5 % (36.0-46.0); Immature Granulocytes % (Auto) 12 % (0-0); Immature Granulocytes Auto 2.49 Thou/mm3 (0.00-0.00); Lymphocytes # (Auto) 1.7 Thou/mm3 (1.0-4.8); Lymphocytes % (Auto) 8 % (10-50); Mean Corpuscular HGB Conc 32.7 g/dl (31.0-37.0); Mean Corpuscular Hemoglobin 26.6 pg (25.0-35.0); Mean Corpuscular Volume 81 fL (80-100); Monocytes # (Auto) 1.1 Thou/mm3 (0.0-0.8); Monocytes % (Auto) 5 % (0-12); Neutrophils # (Auto) 15.3 Thou/mm3 (1.8-7.7); Neutrophils % (Auto) 73 % (37-80); Nucleated Red Blood Cell # 0.17 Thou/mm3 (0.00-0.00); Nucleated Red Blood Cell % 1 /100 WBC (0); Platelet Count 473 Thou/mm3 (140-440); Red Blood Count 3.38 Miln/mm3 (4.00-5.20)
[2024-05-29 06:38] LABS: Syphilis Nonreactive (Nonreactive)
[2024-05-29 06:39] LABS: Partial Thromboplastin Time 43.9 Seconds (22.0-36.0)
[2024-05-29 06:41] LABS: Alanine Aminotransferase < 7 U/L (10-49); Albumin, Serum 3.2 gm/dL (3.4-4.8); Alkaline Phosphatase 130 U/L (46-116); Ammonia < 10 uMol/L (11-32); Anion Gap 13 (7-16); Aspartate Amino Transferase < 8 U/L (0-34); BUN/Creatinine Ratio 13 Ratio (12-20); Bilirubin,Total 0.3 mg/dL (0.3-1.2); Blood Urea Nitrogen 79 mg/dL (9-23); Calcium 9.5 mg/dL (8.3-10.6); Calcium (Corrected) 10.1 mg/dL (8.5-10.1); Carbon Dioxide 16.8 mMol/L (20.0-31.0); Chloride 93 mMol/L (98-107); Creatinine (Component) 6.3 mg/dL (0.6-1.3); Estimated Creatinine Clearance 7.4 mL/min (>60); Globulin 3.2 gm/dL (2.3-3.5); Glucose 99 mg/dL (74-106); Magnesium 1.8 mg/dL (1.6-2.6); Osmolality,Calculated 271 (275-295); Potassium 3.8 mMol/L (3.4-5.1); Sodium 123 mMol/L (136-145); Thyroid Stimulating Hormone 8.42 uIU/mL (0.55-4.78); Total Protein 6.4 gm/dL (5.7-8.2); eGFR 7 See Note
[2024-05-29 06:53] LABS: Folate 7.56 ng/mL (>5.38); Vitamin B12 1288 pg/mL (211-911)
--- NOTE | 2024-05-29 08:09 | PC.NURSE ---
BFR TO 250 D/T INCREASED DUSTER TENDER DESPITE ALL INTERVENTIONS, WILL CONT. TO MONITOR
--- NOTE | 2024-05-29 08:31 | PC.NURSE ---
bp trending down uf goal lowered to 2lL as tolerated will cont. to monitor
[2024-05-29] MEDS: ALBUMIN HUMAN 25% IVPB 25 GM/100 ML BTL IV (08:46)
--- NOTE | 2024-05-29 08:49 | PC.NURSE ---
Bp cont's. to trend down, pt remains w/o distress noted. Pt remains reclined, uf turned off, PRN Albumin 25/100ml administered will cont. to monitor
--- NOTE | 2024-05-29 08:54 | PD.IDPROG ---
Subjective Subjective Interval history: cx neg. here a long time. wbc high and creat up. so will stop rx as planned and f/u later this week Exam Vital Signs Temp Pulse Resp BP Pulse Ox O2 Del Method O2 Flow Rate 96.2 F L 76 19 87/52 L 97 Room Air 1 05/29/24 08:00 05/29/24 08:45 05/29/24 08:00 05/29/24 08:45 05/29/24 08:00 05/29/24 08:00 05/28/24 09:43 FiO2 35 05/25/24 12:31 Narrative Exam limited visit. had a benign exam last week Objective - Internal Medicine Labs 05/29/24 05:45 05/29/24 05:45 Labs: Laboratory Results - last 24 hr 05/28/24 05/28/24 05/28/24 14:08 16:37 20:52 WBC RBC Hgb Hct MCV MCH MCHC RDW Std Deviation Plt Count Neut % (Auto) Lymph % (Auto) [place] % (Auto) Eos % (Auto) Baso % (Auto) Neut # (Auto) Lymph # (Auto) [place] # (Auto) Eos # (Auto) Baso # (Auto) Immature Gran # (Auto) Absolute Nucleated RBC Immature Gran % Nucleated RBC % APTT Sodium 120 L 121 L 124 L Potassium Chloride Carbon Dioxide Anion Gap BUN Creatinine Estim Creat Clear Calc eGFR BUN/Creatinine Ratio Glucose Calculated Osmolality Lactic Acid 1.4 Calcium Corrected Calcium Phosphorus Magnesium Total Bilirubin AST ALT Alkaline Phosphatase Ammonia Total Protein Albumin Globulin Albumin/Globulin Ratio Vitamin B12 Folate TSH Free T4 Syphilis Serology 05/29/24 05/29/24 01:25 05:45 WBC 21.0 H RBC 3.38 L Hgb 9.0 L Hct 27.5 L MCV 81 MCH 26.6 MCHC 32.7 RDW Std Deviation 56.0 H Plt Count 473 H D Neut % (Auto) 73 Lymph % (Auto) 8 L [place] % (Auto) 5 Eos % (Auto) 1 Baso % (Auto) 1 Neut # (Auto) 15.3 H Lymph # (Auto) 1.7 [place] # (Auto) 1.1 H Eos # (Auto) 0.3 Baso # (Auto) 0.2 Immature Gran # (Auto) 2.49 H Absolute Nucleated RBC 0.17 H Immature Gran % 12 H Nucleated RBC % 1 H APTT 43.9 H D Sodium 125 L 123 L Potassium 3.8 Chloride 93 L Carbon Dioxide 16.8 L Anion Gap 13 BUN 79 H Creatinine 6.3 H* D Estim Creat Clear Calc 7.4 L eGFR 7 L* BUN/Creatinine Ratio 13 Glucose 99 Calculated Osmolality 271 L Lactic Acid Calcium 9.5 Corrected Calcium 10.1 Phosphorus 5.0 Magnesium 1.8 Total Bilirubin 0.3 AST < 8 ALT < 7 L Alkaline Phosphatase 130 H Ammonia < 10 L Total Protein 6.4 Albumin 3.2 L Globulin 3.2 Albumin/Globulin Ratio 1.0 L Vitamin B12 1288 H Folate 7.56 TSH 8.42 H D Free T4 1.30 Syphilis Serology Nonreactive ABG Interpretation ABG results: 05/13/24 05/15/24 05/15/24 08:29 15:28 16:03 ABG pH 7.39 7.05 L* D 7.17 L* D ABG pCO2 31 L 63 H D 45 D ABG pO2 78 L 38 L* D 84 D ABG HCO3 19 L 18 L 16 L ABG O2 Saturation 96 59 L 96 ABG Base Excess -5 L -12 L -11 L VBG pH VBG pCO2 VBG pO2 VBG Base Excess 05/16/24 05/17/24 05/18/24 04:38 04:03 04:20 ABG pH 7.28 L D 7.38 D 7.49 H D ABG pCO2 34 D 28 L 30 L ABG pO2 96 85 66 L ABG HCO3 16 L 17 L 23 ABG O2 Saturation 98 97 94 ABG Base Excess -10 L -8 L 0 VBG pH VBG pCO2 VBG pO2 VBG Base Excess 05/19/24 05/20/24 05/21/24 09:05 06:05 22:35 ABG pH 7.30 L D 7.41 D ABG pCO2 49 H D 42 ABG pO2 63 L 63 L ABG HCO3 24 27 H ABG O2 Saturation 91 93 ABG Base Excess -3 2 VBG pH 7.31 L VBG pCO2 50 VBG pO2 39 VBG Base Excess -2 05/26/24 04:17 ABG pH 7.38 ABG pCO2 42 ABG pO2 81 L ABG HCO3 25 ABG O2 Saturation 97 ABG Base Excess 0 VBG pH VBG pCO2 VBG pO2 VBG Base Excess Assessment & Plan A&P Narrative abd abscess, cx neg here since 05/13. so on rx a long time now. usual rx for most things is 7d. left on merrem thru weekend but collection in abd did not grow a likely pathogen, so stopped abx Time Spent With Patient Time: Total time spent is greater than 50% in coordination of care (as documented) at patient's floor/unit and/or counseling patient:
--- NOTE | 2024-05-29 08:55 | PC.NURSE ---
bp trending back up, uf goal lowered to 1.5L and resumed as tolerated will cont. to monitor
--- NOTE | 2024-05-29 09:00 | PC.NURSE ---
bp cont's. to drop, UF goal lowered to 1L as tolerated will cont. to monitor
[2024-05-29 09:32] LABS: INR 1.3 (0.9-1.3); Prothrombin Time 13.7 Seconds (9.0-12.2)
--- NOTE | 2024-05-29 09:41 | PC.SS ---
Addendum entered by Yolande Montes 05/29/24 13:36: Pt is new dialysis with Dr. August at [facility]. SS spoke to Monie at Dialysis who is aware and she has access to patient's information. Monie is aware pt is new dialysis and is requiring dialysis chair time. Original Note: Follow up note: White count is up. Pt is on IV antibiotic. Pt has BALAJI drain. Pending surgery recommendations.
[2024-05-29] MEDS: EPOETIN ALFA-EPBX INJ 10,000 UNIT/ML VIAL (ESRD) 10000 UNIT SC (11:24)
[2024-05-29] MEDS: HEPARIN SOD INJ 1000 UNIT/ML VIAL 10 ML 2500 UNIT INDWELLCAT (11:35)
[2024-05-29] MEDS: PANTOPRAZOLE INJ 40 MG VIAL IVP ×2 (11:53→20:25)
--- NOTE | 2024-05-29 12:03 | XR_ITS ---
Examination: AP chest single view Technique one AP portable semiupright chest single view Exam date and time: May 29, 2024 1220 hours Comparison May 24, 2024 INDICATIONS: Shortness of breath today. FINDINGS: Mild CHF Mild enlargement cardiac contour Prominent vascular congestion with perihilar basilar edema Left internal jugular temporary dialysis catheter tip right atrium Right arm dual-lumen central PICC line tip SVC IMPRESSION: Mild heart failure
[2024-05-29] MEDS: ALBUTEROL/IPRATROPIUM (Duoneb) RT SOL 3 ML NEBU INH ×2 (12:08→21:09)
--- NOTE | 2024-05-29 12:10 | ESPR_ITS ---
Documentation for date of: 05/29/24 Subjective Subjective Interval history: Patient evaluated Hemoglobin hematocrit 9.0 and 27.5 No signs of any active bleeding Exam Vital Signs Temp Pulse Resp BP Pulse Ox O2 Del Method O2 Flow Rate 96.9 F 86 18 125/53 L 99 Room Air 1 05/29/24 11:11 05/29/24 11:11 05/29/24 11:11 05/29/24 11:11 05/29/24 11:11 05/29/24 08:00 05/28/24 09:43 FiO2 35 05/25/24 12:31 Routine Respiratory Exam Comments: Basal Rales Routine Abdominal Exam Comments: Soft nontender hypoactive bowel sounds Objective Labs 05/29/24 05:45 05/29/24 05:45 Labs: Laboratory Results - last 24 hr 05/28/24 05/28/24 05/28/24 14:08 16:37 20:52 WBC RBC Hgb Hct MCV MCH MCHC RDW Std Deviation Plt Count Neut % (Auto) Lymph % (Auto) [place] % (Auto) Eos % (Auto) Baso % (Auto) Neut # (Auto) Lymph # (Auto) [place] # (Auto) Eos # (Auto) Baso # (Auto) Immature Gran # (Auto) Absolute Nucleated RBC Immature Gran % Nucleated RBC % PT INR APTT Sodium 120 L 121 L 124 L Potassium Chloride Carbon Dioxide Anion Gap BUN Creatinine Estim Creat Clear Calc eGFR BUN/Creatinine Ratio Glucose Calculated Osmolality Lactic Acid 1.4 Calcium Corrected Calcium Phosphorus Magnesium Total Bilirubin AST ALT Alkaline Phosphatase Ammonia Total Protein Albumin Globulin Albumin/Globulin Ratio Vitamin B12 Folate TSH Free T4 Syphilis Serology 05/29/24 05/29/24 01:25 05:45 WBC 21.0 H RBC 3.38 L Hgb 9.0 L Hct 27.5 L MCV 81 MCH 26.6 MCHC 32.7 RDW Std Deviation 56.0 H Plt Count 473 H D Neut % (Auto) 73 Lymph % (Auto) 8 L [place] % (Auto) 5 Eos % (Auto) 1 Baso % (Auto) 1 Neut # (Auto) 15.3 H Lymph # (Auto) 1.7 [place] # (Auto) 1.1 H Eos # (Auto) 0.3 Baso # (Auto) 0.2 Immature Gran # (Auto) 2.49 H Absolute Nucleated RBC 0.17 H Immature Gran % 12 H Nucleated RBC % 1 H PT 13.7 H INR 1.3 APTT 43.9 H D Sodium 125 L 123 L Potassium 3.8 Chloride 93 L Carbon Dioxide 16.8 L Anion Gap 13 BUN 79 H Creatinine 6.3 H* D Estim Creat Clear Calc 7.4 L eGFR 7 L* BUN/Creatinine Ratio 13 Glucose 99 Calculated Osmolality 271 L Lactic Acid Calcium 9.5 Corrected Calcium 10.1 Phosphorus 5.0 Magnesium 1.8 Total Bilirubin 0.3 AST < 8 ALT < 7 L Alkaline Phosphatase 130 H Ammonia < 10 L Total Protein 6.4 Albumin 3.2 L Globulin 3.2 Albumin/Globulin Ratio 1.0 L Vitamin B12 1288 H Folate 7.56 TSH 8.42 H D Free T4 1.30 Syphilis Serology Nonreactive Impressions Impression: # Perforated gastric ulcer status post exploratory bloating with suturing of the ulcer as well as omental patch # Renal failure on hemodialysis Continue current management ABG Interpretation ABG results: 05/13/24 05/15/24 05/15/24 08:29 15:28 16:03 ABG pH 7.39 7.05 L* D 7.17 L* D ABG pCO2 31 L 63 H D 45 D ABG pO2 78 L 38 L* D 84 D ABG HCO3 19 L 18 L 16 L ABG O2 Saturation 96 59 L 96 ABG Base Excess -5 L -12 L -11 L VBG pH VBG pCO2 VBG pO2 VBG Base Excess 05/16/24 05/17/24 05/18/24 04:38 04:03 04:20 ABG pH 7.28 L D 7.38 D 7.49 H D ABG pCO2 34 D 28 L 30 L ABG pO2 96 85 66 L ABG HCO3 16 L 17 L 23 ABG O2 Saturation 98 97 94 ABG Base Excess -10 L -8 L 0 VBG pH VBG pCO2 VBG pO2 VBG Base Excess 05/19/24 05/20/24 05/21/24 09:05 06:05 22:35 ABG pH 7.30 L D 7.41 D ABG pCO2 49 H D 42 ABG pO2 63 L 63 L ABG HCO3 24 27 H ABG O2 Saturation 91 93 ABG Base Excess -3 2 VBG pH 7.31 L VBG pCO2 50 VBG pO2 39 VBG Base Excess -2 05/26/24 04:17 ABG pH 7.38 ABG pCO2 42 ABG pO2 81 L ABG HCO3 25 ABG O2 Saturation 97 ABG Base Excess 0 VBG pH VBG pCO2 VBG pO2 VBG Base Excess Assessment & Plan A&P Narrative abd abscess, cx neg here since 05/13. so on rx a long time now. usual rx for most things is 7d. left on merrem thru weekend but collection in abd did not grow a likely pathogen, so stopped abx Time Spent With Patient Time: Total time spent is greater than 50% in coordination of care (as documented) at patient's floor/unit and/or counseling patient:
--- NOTE | 2024-05-29 12:16 | ESPR_ITS ---
Documentation for date of: 05/29/24 Subjective Subjective Interval history: Patient seen and and examined at bedside. Currently on bowel rest. Patient was unable to tolerate 2 L fluid and dialysis treatment, about 1 L was removed, patient's blood pressure dropped during dialysis, was not able to tolerated despite IV albumin. Discussed with nephrology, will schedule for dialysis again tomorrow. Patient looks dyspnic, chest x-ray shows mild heart failure, ABG unremarkable. Patient will be assessed by general surgery today. Infectious disease following case, discontinued antibiotics, cultures unremarkable. Will continue to monitor patient. Exam Vital Signs Temp Pulse Resp BP Pulse Ox O2 Del Method O2 Flow Rate 96.9 F 96 24 H 125/53 L 100 Room Air 1 05/29/24 11:11 05/29/24 12:10 05/29/24 12:10 05/29/24 11:11 05/29/24 12:10 05/29/24 08:00 05/28/24 09:43 FiO2 35 05/25/24 12:31 Narrative Exam General: AAOx3, appears to be in some distress HEENT: Moist mucous membranes, conjunctiva clear, EOMI, PERRLA, Cardiovascular: S1, S2, radial pulses +2 bilat, Irregularly irregular rhythm Pulmonary: CTAB bilat no cough, no wheezing GI: [place] present s/p Ex lap, Sadi and accordion drains present, draining greyish purulent fluid. Extremities: 1+ pitting edema in lower extremities bilaterally, dorsalis pedis pulses +2 bilaterally, feet cold to touch bilat. Skin: Delayed cap refill Neuro: AAOx3, no focal motor or sensory deficits in the UE or LE bilat Psych: Cooperative Objective Labs 05/29/24 05:45 05/29/24 13:04 Labs: Laboratory Results - last 24 hr 05/28/24 05/28/24 05/28/24 14:08 16:37 20:52 WBC RBC Hgb Hct MCV MCH MCHC RDW Std Deviation Plt Count Neut % (Auto) Lymph % (Auto) [place] % (Auto) Eos % (Auto) Baso % (Auto) Neut # (Auto) Lymph # (Auto) [place] # (Auto) Eos # (Auto) Baso # (Auto) Immature Gran # (Auto) Absolute Nucleated RBC Immature Gran % Nucleated RBC % PT INR APTT Sodium 120 L 121 L 124 L Potassium Chloride Carbon Dioxide Anion Gap BUN Creatinine Estim Creat Clear Calc eGFR BUN/Creatinine Ratio Glucose Calculated Osmolality Lactic Acid 1.4 Calcium Corrected Calcium Phosphorus Magnesium Total Bilirubin AST ALT Alkaline Phosphatase Ammonia Total Protein Albumin Globulin Albumin/Globulin Ratio Vitamin B12 Folate TSH Free T4 Syphilis Serology 05/29/24 05/29/24 01:25 05:45 WBC 21.0 H RBC 3.38 L Hgb 9.0 L Hct 27.5 L MCV 81 MCH 26.6 MCHC 32.7 RDW Std Deviation 56.0 H Plt Count 473 H D Neut % (Auto) 73 Lymph % (Auto) 8 L [place] % (Auto) 5 Eos % (Auto) 1 Baso % (Auto) 1 Neut # (Auto) 15.3 H Lymph # (Auto) 1.7 [place] # (Auto) 1.1 H Eos # (Auto) 0.3 Baso # (Auto) 0.2 Immature Gran # (Auto) 2.49 H Absolute Nucleated RBC 0.17 H Immature Gran % 12 H Nucleated RBC % 1 H PT 13.7 H INR 1.3 APTT 43.9 H D Sodium 125 L 123 L Potassium 3.8 Chloride 93 L Carbon Dioxide 16.8 L Anion Gap 13 BUN 79 H Creatinine 6.3 H* D Estim Creat Clear Calc 7.4 L eGFR 7 L* BUN/Creatinine Ratio 13 Glucose 99 Calculated Osmolality 271 L Lactic Acid Calcium 9.5 Corrected Calcium 10.1 Phosphorus 5.0 Magnesium 1.8 Total Bilirubin 0.3 AST < 8 ALT < 7 L Alkaline Phosphatase 130 H Ammonia < 10 L Total Protein 6.4 Albumin 3.2 L Globulin 3.2 Albumin/Globulin Ratio 1.0 L Vitamin B12 1288 H Folate 7.56 TSH 8.42 H D Free T4 1.30 Syphilis Serology Nonreactive ABG Interpretation ABG results: 05/13/24 05/15/24 05/15/24 08:29 15:28 16:03 ABG pH 7.39 7.05 L* D 7.17 L* D ABG pCO2 31 L 63 H D 45 D ABG pO2 78 L 38 L* D 84 D ABG HCO3 19 L 18 L 16 L ABG O2 Saturation 96 59 L 96 ABG Base Excess -5 L -12 L -11 L VBG pH VBG pCO2 VBG pO2 VBG Base Excess 05/16/24 05/17/24 05/18/24 04:38 04:03 04:20 ABG pH 7.28 L D 7.38 D 7.49 H D ABG pCO2 34 D 28 L 30 L ABG pO2 96 85 66 L ABG HCO3 16 L 17 L 23 ABG O2 Saturation 98 97 94 ABG Base Excess -10 L -8 L 0 VBG pH VBG pCO2 VBG pO2 VBG Base Excess 05/19/24 05/20/24 05/21/24 09:05 06:05 22:35 ABG pH 7.30 L D 7.41 D ABG pCO2 49 H D 42 ABG pO2 63 L 63 L ABG HCO3 24 27 H ABG O2 Saturation 91 93 ABG Base Excess -3 2 VBG pH 7.31 L VBG pCO2 50 VBG pO2 39 VBG Base Excess -2 05/26/24 04:17 ABG pH 7.38 ABG pCO2 42 ABG pO2 81 L ABG HCO3 25 ABG O2 Saturation 97 ABG Base Excess 0 VBG pH VBG pCO2 VBG pO2 VBG Base Excess Quality Measures Quality Measures VTE prophylaxis (Heparin) Advance care planning discussed with:: patient Assessment & Plan Assessment Current Active Medications: Generic Name Dose Route Start Last Admin Trade Name Freq PRN Reason Stop Dose Admin Albuterol/Ipratropium 3 ml 05/27/24 18:08 05/29/24 12:08 Albuterol/Ipratropium (Duoneb) Rt Jimena 3 Ml Nebu INH 06/26/24 18:07 3 ml Q2HR PRN Administration SHORTNESS OF BREATH OR WHEEZE Dextrose 25 ml 05/24/24 15:43 Dextrose 50%-Water Inj 50 Ml Syringe IV 06/23/24 15:42 Q15MIN PRN BG 50-70 responsive npo pt Dextrose 50 ml 05/24/24 15:43 Dextrose 50%-Water Inj 50 Ml Syringe IV 06/23/24 15:42 Q15MIN PRN BG <50 OR BG <70 & pt unresponsive Fentanyl Citrate 30 mcg 05/28/24 10:53 05/28/24 11:12 Fentanyl Cit Inj 50 Mcg/Ml Amp 2ml IVP 05/31/24 13:59 30 mcg Q2HR PRN Administration Pain 7-10 Glucagon 1 mg 05/24/24 15:43 Glucagon Inj 1 Mg Vial IM Q15MIN PRN BG <70, and no IV access Heparin Sodium (Porcine) 2,500 unit 05/17/24 15:52 05/29/24 11:35 Heparin Sod Inj 1000 Unit/Ml Vial 10 Ml INDWELLCAT 05/31/24 15:51 2,500 unit PRN PRN Administration DIALYSIS Heparin Sodium/Dextrose 25,000 unit in 250 mls @ 10.212 mls/hr 05/23/24 18:15 05/28/24 18:28 Heparin In D5w Ivpb IV 06/06/24 18:14 0 units/kg/hr .Q24H ANGELICA 0 mls/hr Titration Protocol 12 UNITS/KG/HR Albumin Human 25 gm in 100 mls @ 100 mls/min 05/25/24 10:07 05/29/24 08:46 Albuminar-25 Ivpb IV 100 mls/min PRN PRN Administration DIALYSIS Fat Emulsion-[place] Oil/Soybean Oil 500 mls @ 32 mls/hr 05/27/24 18:00 05/28/24 18:04 Clinopid 20% Iv IV 06/26/24 17:59 Infused TuSa@1800 ANGELICA Infusion Magnesium Sulfate 1 gm/ Sodium 2,032 mls @ 20 mls/hr 05/28/24 18:00 05/28/24 18:21 Chloride 120 meq/ Amino Acids IV 05/29/24 17:59 20 mls/hr QDAY@1800 ANGELICA Administration Insulin Glargine 12 unit 05/25/24 09:00 05/29/24 11:43 Insulin Glargine (Lantus) 5 Unit/0.05 Ml (Per 5 Units) SC 06/24/24 08:59 Not Given QDAY ANGELICA Insulin Human Lispro 0 unit 05/24/24 18:00 05/29/24 11:42 Insulin Lispro (Admelog) 1 Unit/0.01 Ml Unit SC 06/23/24 17:59 Not Given Q6HR [facility] Protocol Ondansetron HCl 4 mg 05/13/24 11:58 05/14/24 12:31 Ondansetron Inj 2 Mg/Ml Inj 2 Ml IV 06/12/24 11:57 4 mg Q6H PRN Administration NAUSEA OR VOMITING Protocol Pantoprazole Sodium 40 mg 05/15/24 21:00 05/29/24 11:53 Pantoprazole Inj 40 Mg Vial IVP 06/14/24 20:59 40 mg BID ANGELICA Administration Pharmacy Consult 1 each 05/16/24 10:27 Pharmacy Renal Dose Adjustment 1 Ea XX 06/15/24 10:26 PRN PRN CONSULT Sodium Chloride 3 ml 05/24/24 19:00 Sodium Chloride Rt Jimena 0.9% 3 Ml Nebu INH 06/23/24 18:59 PRN PRN SOLN Timolol Maleate 1 drop 05/28/24 18:15 05/28/24 22:10 Timolol Op Jimena 0.5% 5 Ml Btl BOTH EYES 06/27/24 18:14 Not Given DAILY ANGELICA Plan Assessment: Ms. Castellanos is a 69-year-old female with past medical history significant for hypertension, diabetes and history of gastric ulcers who presented to the ED on 05/13/2024 after she was found unconscious on the floor. Per chart reviewing prior to this unconsciousness patient was having abdominal pain and generalized weakness with diarrhea and shortness of breath for 2 days. Patient was admitted to the hospital for treatment and management of sepsis secondary to pneumonia. Patient was given 1 L normal saline and started on ceftriaxone and azithromycin. patient underwent ex lap surgery for perforated gastric ulcer. Patient remained intubated postop and is upgraded to the ICU. #Perforated gastric ulcer #Pneumoperitoneum #Peritonitis secondary to perforated gastric ulcer #Abdominal Abscess, status post percutaneous drainage #Leukocytosis Patient found to have tender abdomen, rigidity in the epigastrium, chest x-ray showed elevation of hemidiaphragm, CT abdomen showed pneumoperitoneum, concern for perforated viscus, general surgeon Dr. Santana was consulted for emergency laparotomy and possible repair of perforated gastric ulcer. Repeat CT abd/pel on 05/20 revealed Pneumoperitoneum, orogastric tube in the stomach, mild free fluid adjacent to the stomach and anterior to the pancreas. s/p Exploratory laparotomy & repair of perforated gastric ulcer - 05/15. Plan: ?Patient completed antibiotic therapy, Meropenem and fluconazole, discontinued per ID Reccomendations -Pending Abscess Culture ?Pain control Fentanyl 30 mcg every 2 hours as needed ?Continue with TPN #New onset A-fib with RVR -Likely secondary to shock in the setting of abdominal surgery -EKG findings consistent with A-fib -Was on Amiodarone 200 twice daily for new onset Afib, but as she was in AFib with RVR. Plan: ?Cardiology consulted, appreciate recs ?Continue with heparin drip and amio drip #Acute tubular necrosis #Anuria -2/2 septic shock -Patient has 0 urine production -Baseline Cr appears to be 0.7 Plan: ?Patient underwent HD fluid removal and removed 2.1 L on 05/18 and 1.5 L on 05/19, 2L fluid removed 05/21, 2.5 L fluid removed on 05/22 , 3L fluid removed on 05/23, 3L fluid removed 05/25, 2L removed 05/26, 1 L removed 05/29 -Unable to tolerate dialysis today, talk to nephrology, possible another dialysis treatment tomorrow. -Guajardo catheter in place and monitor urine output closely. -Renally dose medications and avoid nephrotoxic agents -repeat labs in am -Nephrology following #Hypoosmolar Hyponatremia, improving Likely secondary due to fluid overload Sodium improved to 125 today. Plan: ?TPN 20 cc/hour ?Sodium checks every 6 hours #Acute Hypoxic Respiratory failure likely multifactorial -2/2 to pulmonary edema in the setting of volume overload 2/2 ATN due to shock leading to oligoanuria versus bibasilar pneumonia -Further complicated by bilateral lung atelectasis in the setting of recent abdominal surgery and sedatives use -Patient was intubated and on mechanical ventilation (05/15) and extubated 05/18/2024, currently saturating 95-97 % on 2-3 L NC -Duonebs prn #Acute Upper GI bleed - stable - most likely secondary to perforated gastric ulcer -Patient had a single episode of black tarry stool today-likely setting of recent abdominal surgery -Continue iv Protonix. -Will monitor for alarm signs of active bleeding with melena or hematochezia #Hx of Diabetes Mellitus type II - A1C 6.3 % 05/21/2024 - Hold home glipizide and januvia - Plan: Continue to monitor blood sugars - Insulin sliding scale ordered with lantus 12 units #Hyperlipidemia Plan: -Hold home atorvastatin as patient is npo. Will reinstate as tolerated #Primary Hypertension Holding on resuming home blood pressure medicines at this time #Acute exacerbation of HFpEF -echo 05/16 -estimated EF of 55 to 60%, stage I diastolic dysfunction noted, Moderate to severe posterior MAC -Pt presented with SOB and 2+ edema in LE -elevated BNP from 304 --> 1110 -HD in the setting of anuria -holding guideline directed medical therapy due to shock, will resume when able -Continue dialysis #Acute blood loss anemia, stable 2/2 perforated ulcer- S/P surgical repair Hgb stable 9.6 Hct 28.3 patient received 2 units of PRBC 05/18 due to acutely drop in Hgb below 7. No signs of active bleeding. Plan: -Continue to monitor daily CBC. transfuse for hemoglobin less than 7. # Acute encephalopathy-improving -Likely multifactorial secondary to sepsis versus metabolic versus neurologic versus medication -Patient is awake and alert and follows commands. Patient is able to respond to yes or no questions verbally #shock - resolved #Health Maintenance Disposition: Telemetry DVT prophylaxis: Heparin drip GI prophylaxis:Protonix 40 BID Diet: NPO Lines: Accordion drain, SADI drain, Guajardo CODE STATUS: Full Case discussed with Attending Dr. Curry. Geovani Mahmood PGY1 Attending Provider Attestation/Addendum I have examined the patient, reviewed labs and imaging findings, discussed the case with the resident(s), and reviewed entered orders. I agree with the plan of care as outlined in this note, with these additional summaries/recommendations: Patient seen at bedside. No acute overnight events. Today at bedside patient reports her pain is controlled. Patient appears to be more short of breath today. CXR showed showed vascular congestion with perihilar basilar edema. ABG relatively stable. We will discuss with nephrology for further fluid removal with hemodialysis. Patient was admitted to ICU for distributive shock in the setting of perforated gastric ulcer and intra-abdominal abscesses. Patient currently has 2 intra-abdominal drains in place draining grayish/purulent material. General surgery following. Patient continued on bowel rest and TPN. Infectious disease following and meropenem plus fluconazole discontinued today 05/29 as patient received extended course of abx. 05/23 blood cultures show no growth and intra-abdominal culture pending with gram stain showing 4+ WBC with no organisms, Patient reported increased pain yesterday although controlled today and continue fentanyl 30mcg Q2 hours as needed. Patient developed acute renal failure 2/2 to ATN and nephrology following. Patient receiving hemodialysis and will arrange outpatient chair time with case management. Continue to avoid nephrotoxic agents and renally dose medications. Patient went for HD today 05/29 and had 1L fluid removed although terminated secondary to hypotension. Patient developed new onset atrial fibrillation with rapid ventricular response in the ICU. Continue amiodarone and heparin gtt. aPTT currently at goal and 77.8 seconds today. Patient developed worsening hyponatremia. Medical team discussed case with nephrology and we will decrease TPN to 20 cc/h and continue to trend Na. Continue to trend sodium and may need to discontinue TPN if sodium downtrends again. Continue basal and bolus insulin for diabetes mellitus type 2. A1C 6.3%. Patient and daughter updated at bedside. All questions answered to satisfaction. Repeat hematology and chemistry panel in AM. Dr. Curry
[2024-05-29 12:38] LABS: Base Excess -2 (-3-3); HCO3 23 mEq/L (20-26); Inspired Oxygen, FIO2 21 %; O2 Saturation 95 % (91-98); PCO2 35 mmHg (32.0-48.0); PO2 67 mmHg (83-108); pH, Arterial 7.42 (7.35-7.45)
[2024-05-29 12:39] LABS: Allen Test Performed/OK; Puncture Site Right Radial
[2024-05-29] MEDS: TIMOLOL OP SOL 0.5% 5 ML BTL 1 DROP BOTH EYES (12:42)
[2024-05-29 13:51] LABS: Sodium 132 mMol/L (136-145)
--- NOTE | 2024-05-29 14:35 | ESPR_ITS ---
Documentation for date of: 05/29/24 Subjective Subjective Brief History: 69F with HTN, CKDIII, pre DM and known gastric ulcers who was admitted 05/13 after being found down at home. Pt was admitted for encephalopathy and pneumonia, developed anemia for which EGD was planned today however this am had an [employer] RESIDENT for tachycardia, hypotension and acute pain; she underwent CT AP showing pneumoperitoneum with air droplets adjacent to the stomach PMH: HTN, CKDIII, preDM, known gastric ulcers on EGD 10/2023 PSHx: None Meds: No antiplt or anticoagulation Allergies: NKDA Narrative: Dyspneic today with evidence of heart failure on xray, WBC 21 from 19.7, minimal drainage from BALAJI and percutaneous drain Exam Vital Signs Temp Pulse Resp BP Pulse Ox O2 Del Method O2 Flow Rate 96.4 F L 96 24 H 99/58 L 100 Room Air 1 05/29/24 12:00 05/29/24 12:10 05/29/24 12:10 05/29/24 12:00 05/29/24 12:10 05/29/24 12:00 05/28/24 09:43 FiO2 35 05/25/24 12:31 Constitutional Constitutional: mild distress Routine Respiratory Exam Respiratory: Present wheezes Routine Abdominal Exam Abdominal: Present soft, wound (midline wound aixa removed, superficial dehiscence at superior aspect of wound) and drain (BALAJI and percutaneous drain with minimal output); Absent tenderness or distended Assessment & Plan Plan 69F with HTN, CKDIII, pre DM and known gastric ulcers who was admitted 05/13 after being found down at home, who developed pneumoperitoneum 05/15 s/p emergent ex lap, repair of gastric perforation, with postop abscess requiring percutaneous drain placement and strict NPO, gradually recovering OK to resume PO meds and PO diet as tolerated Will leave drains in place until pt is tolerating full diet Procedures Procedures Exploratory laparotomy, repair of perforated gastric ulcer
--- NOTE | 2024-05-29 15:53 | ESPR_ITS ---
Documentation for date of: 05/29/24 Subjective Subjective Interval history: Interval history: Mr. Castellanos is a [id number] with past medical history of prediabetes, CKD, hypertension, history of ulcers who was admitted to [facility] (Formerly [facility]) for sepsis secondary to pneumonia and acute metabolic encephalopathy. Patient was BIBA to the ED after being found unconscious on the floor. According to the son on admission patient's daughter found the patient at 3 AM passed out on the floor and unresponsive. Family is unaware along the patient was on the floor. 2 days ago patient started to develop abdominal pain and weakness all over her body associated with some diarrhea and shortness of breath. Patient's abdominal pain comes and goes from right side to left side of the abdomen. ED course patient was hypertensive tachycardic tachypneic and was saturating 92% on 5 L nasal cannula ED labs significant for WBCs 24.3, bicarb 19.6, glucose 259, lactic acid 2.2, BNP 304, troponin 0.09. 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, colonic diverticulosis, Cervical spine CT showed 3 mm radiolucency in C3 vertebral body Chest CTA showed mild aneurysmal dilatation ascending thoracic aorta AP dimension 4.3 cm and pulmonary artery hypertension with moderate vascular congestion Face CT shows no acute facial fracture, Lumbar spine CT shows no acute lumbar fracture severe acquired spinal stenosis L4-L5, Thoracic spine CT showed no acute fracture Brain MRI with MRA showed equally focal restricted diffusion brainstem medullary level significant stenosis of right P1 P2 segment posterior cerebral artery Postadmission, cardiology was consulted on admission because of elevated troponins, suspicion of NSTEMI type II, patient has acute decompensated heart failure per cardiology evaluation, neurology consulted because of patient's acute metabolic encephalopathy and GI was consulted for suspicion of GI bleed. Eventually on 05/15 rapid response was called for worsening chest pain, patient's map was consistently in 70s, was tachycardic tachypneic. CT angiogram showed pneumoperitoneum multiple air droplets adjacent to and within wall of stomach with suspicion of gastric perforation. General surgery was consulted for emergency surgery and patient had exploratory laparotomy with repair of perforated gastric ulcer with an omental patch. Patient was upgraded to ICU postop for further management patient currently on Levophed and vasopressor due to distributive shock, currently sedated and intubated on mechanical ventilation. Nephrology consulted due to concern of ADILSON. 05/16/24: Patient seen at bedside, patient's daughter present at bedside labs reviewed patient's creatinine 3.0, GFR 16 and BUN 60. Patient's baseline GFR more than 60, does report history of chronic kidney disease. Patient's urine output yesterday 820 mL, there is suspicion of acute kidney injury due to patient's underlying distributive shock versus hypovolemic shock, will continue to monitor patient's urine output and renal panel in a.m., plan of care discussed with patient's family at bedside they want to proceed with dialysis if needed. Will continue to monitor patient. 05/20/24: Patient seen at bedside, was downgraded to floors yesterday, was hypotensive overnight, was upgraded to ICU, currently on pressors, agonal breathing noted, will hold dialysis today, patient did receive dialysis yesterday, had about 1.5 L fluid removed. Patient's urine output continues to remain low. Will continue to monitor patient closely. 05/22/24: Patient seen at bedside in the ICU. Saturates well on 2 L NC, blood pressure 134/80, off pressors. Tries to follow commands. On examination has extensive anasarca. Urine output 210 mL. Patient will receive dialysis today with goal to remove 2 L of fluid. Will continue to monitor patient closely. Labs showed sodium 142, potassium 4.3, BUN 49, creatinine 4.6, EGFR 10. 05/25/2024 patient currently seen in ICU. On dialysis. More alert and awake. Family at bedside. Urine output still very minimal. Currently on TPN. Spoke to Dr. Murguia. Ultrafiltration 2 L in progress. Edema tad better. On low-dose pressors. 05/29/2024 patient currently seen and dialysis. She seems to be very sleepy. Did receive a Benadryl last night. Daughter at bedside. Unable to remove any fluid due to hypotension. Will plan for sequential ultrafiltration tomorrow. Spoke to primary team-midodrine was added. Labs, medications reviewed. Review of Systems Review of Systems Narrative Review of Systems: Patient sleeping. Denies any chest pain or shortness of breath per family. Exam Vital Signs Temp Pulse Resp BP Pulse Ox O2 Del Method O2 Flow Rate 35.8 C L 96 24 H 99/58 L 100 Room Air 1 05/29/24 12:00 05/29/24 12:10 05/29/24 12:10 05/29/24 12:00 05/29/24 12:10 05/29/24 12:00 05/28/24 09:43 FiO2 35 05/25/24 12:31 Narrative Exam GENERAL APPEARANCE: Patient currently on dialysis NECK: Neck supple, no JVD or bruit CARDIOVASCULAR: Heart regular, no murmurs LUNGS/CHEST: Few rhonchi noted bilaterally ABDOMEN: S/p bowel surgery with the 2 drains. EXTREMITIES: No edema, clubbing or cyanosis. SKIN: IJ PermCath MUSCULOSKELETAL: In bed NEUROLOGICAL : Sleeping Objective Labs 05/30/24 07:49 05/30/24 07:49 Labs: Laboratory Results - last 24 hr 05/28/24 05/28/24 05/29/24 16:37 20:52 01:25 WBC RBC Hgb Hct MCV MCH MCHC RDW Std Deviation Plt Count Neut % (Auto) Lymph % (Auto) Nash % (Auto) Eos % (Auto) Baso % (Auto) Neut # (Auto) Lymph # (Auto) Nash # (Auto) Eos # (Auto) Baso # (Auto) Immature Gran # (Auto) Absolute Nucleated RBC Immature Gran % Nucleated RBC % PT INR APTT Puncture Site ABG pH ABG pCO2 ABG pO2 ABG HCO3 ABG O2 Saturation ABG Base Excess FiO2 Sodium 121 L 124 L 125 L Potassium Chloride Carbon Dioxide Anion Gap BUN Creatinine Estim Creat Clear Calc eGFR BUN/Creatinine Ratio Glucose Calculated Osmolality Calcium Corrected Calcium Phosphorus Magnesium Total Bilirubin AST ALT Alkaline Phosphatase Ammonia Total Protein Albumin Globulin Albumin/Globulin Ratio Vitamin B12 Folate TSH Free T4 Syphilis Serology 05/29/24 05/29/24 05/29/24 05:45 12:28 13:04 WBC 21.0 H RBC 3.38 L Hgb 9.0 L Hct 27.5 L MCV 81 MCH 26.6 MCHC 32.7 RDW Std Deviation 56.0 H Plt Count 473 H D Neut % (Auto) 73 Lymph % (Auto) 8 L Nash % (Auto) 5 Eos % (Auto) 1 Baso % (Auto) 1 Neut # (Auto) 15.3 H Lymph # (Auto) 1.7 Nash # (Auto) 1.1 H Eos # (Auto) 0.3 Baso # (Auto) 0.2 Immature Gran # (Auto) 2.49 H Absolute Nucleated RBC 0.17 H Immature Gran % 12 H Nucleated RBC % 1 H PT 13.7 H INR 1.3 APTT 43.9 H D Puncture Site Right Radial ABG pH 7.42 ABG pCO2 35 ABG pO2 67 L ABG HCO3 23 ABG O2 Saturation 95 ABG Base Excess -2 FiO2 21 Sodium 123 L 132 L Potassium 3.8 Chloride 93 L Carbon Dioxide 16.8 L Anion Gap 13 BUN 79 H Creatinine 6.3 H* D Estim Creat Clear Calc 7.4 L eGFR 7 L* BUN/Creatinine Ratio 13 Glucose 99 Calculated Osmolality 271 L Calcium 9.5 Corrected Calcium 10.1 Phosphorus 5.0 Magnesium 1.8 Total Bilirubin 0.3 AST < 8 ALT < 7 L Alkaline Phosphatase 130 H Ammonia < 10 L Total Protein 6.4 Albumin 3.2 L Globulin 3.2 Albumin/Globulin Ratio 1.0 L Vitamin B12 1288 H Folate 7.56 TSH 8.42 H D Free T4 1.30 Syphilis Serology Nonreactive ABG Interpretation ABG results: 05/13/24 05/15/24 05/15/24 08:29 15:28 16:03 ABG pH 7.39 7.05 L* D 7.17 L* D ABG pCO2 31 L 63 H D 45 D ABG pO2 78 L 38 L* D 84 D ABG HCO3 19 L 18 L 16 L ABG O2 Saturation 96 59 L 96 ABG Base Excess -5 L -12 L -11 L VBG pH VBG pCO2 VBG pO2 VBG Base Excess 05/16/24 05/17/24 05/18/24 04:38 04:03 04:20 ABG pH 7.28 L D 7.38 D 7.49 H D ABG pCO2 34 D 28 L 30 L ABG pO2 96 85 66 L ABG HCO3 16 L 17 L 23 ABG O2 Saturation 98 97 94 ABG Base Excess -10 L -8 L 0 VBG pH VBG pCO2 VBG pO2 VBG Base Excess 05/19/24 05/20/24 05/21/24 09:05 06:05 22:35 ABG pH 7.30 L D 7.41 D ABG pCO2 49 H D 42 ABG pO2 63 L 63 L ABG HCO3 24 27 H ABG O2 Saturation 91 93 ABG Base Excess -3 2 VBG pH 7.31 L VBG pCO2 50 VBG pO2 39 VBG Base Excess -2 05/26/24 05/29/24 04:17 12:28 ABG pH 7.38 7.42 ABG pCO2 42 35 ABG pO2 81 L 67 L ABG HCO3 25 23 ABG O2 Saturation 97 95 ABG Base Excess 0 -2 VBG pH VBG pCO2 VBG pO2 VBG Base Excess Assessment & Plan Additional Assessment & Plan Additional Plan: Mr. Castellanos is a [id number] with past medical history of prediabetes, CKD, hypertension, history of ulcers who was admitted to [facility] (Former[facility]) for sepsis secondary to pneumonia and acute metabolic encephalopathy. Patient is currently sedated intubated in ICU status post exploratory laparotomy with repair of perforated gastric ulcer with an omental patch. Nephrology consulted for acute kidney injury. #Acute kidney injury #Acute Tubular Necrosis 2/2 shock #Anasarca Patient currently seems to be in ATN probably ischemic from fluctuations in blood pressure and underlying shock- started her on dialysis. Patient currently seen on dialysis. Tolerating dialysis without any problems. Hemodialysis for 3 hours, 2K, ultrafiltration 2 L, Epogen 6000, no heparin ordered. Plan of care discussed with the dialysis nurse. Please see dialysis flowsheet for further details. Patient was started on TPN with significant fluid overload-next dialysis scheduled for am-will do sequential ultrafiltration. Hyponatremia will be corrected with dialysis. -Renally dose medications -Avoid nephrotoxic agents -Monitor urine output, strict I&O's -Follow renal panel in a.m. Plan discussed with ICU team//Dr. Murguia. #Metabolic acidosis, resolved #Lactic Acidosis #Acute Encephalopathy #Acute ischemic stroke #Distributive shock #Acute decompensated HF #Elevated Troponin #Hyperlipidemia #Primary Hypertension #Acute Hypoxic Respiratory failure #Pneumoperitoneum #Peritonitis secondary to perforated gastric ulcer #Acute Upper GI bleed #Diabetes Mellitus type II #Acute anemia Management as per ICU team.
[2024-05-29] MEDS: [UNRECOGNIZED DRUG - OTHER] IV (17:41)
[2024-05-29] MEDS: AMINO ACID IV (17:41)
[2024-05-29 18:07] LABS: Sodium 131 mMol/L (136-145)
[2024-05-29] MEDS: fentaNYL CIT INJ 50 mCg/ML AMP 2ML 30 MCG IVP (23:19)
[2024-05-29] MEDS: INSULIN LISPRO (AdmeLOG) 1 UNIT/0.01 ML UNIT SC (23:31)
[2024-05-30] VITALS (33 sets, daily range): BP systolic 87–146; BP diastolic 49–85; PULSE 66–126; RESP 14–34; TEMP 35.9–36.7; O2SAT 94–98; BMI 37.1
[2024-05-30 01:11] LABS: Sodium 131 mMol/L (136-145)
[2024-05-30] MEDS: fentaNYL CIT INJ 50 mCg/ML AMP 2ML 30 MCG IVP ×5 (04:16→20:16)
[2024-05-30] MEDS: AMIODARONE HCL 200 MG TABLET PO ×2 (07:56→20:15)
[2024-05-30] MEDS: INSULIN GLARGINE (Lantus) 5 UNIT/0.05 ML (PER 5 UNITS) 12 UNIT SC (07:56)
--- NOTE | 2024-05-30 07:58 | PC.NURSE ---
Recvd Perm Cath order. Made Desire CLARE aware there is no Radiologist on site today for procedure.
[2024-05-30] MEDS: MIDODRINE 5 MG TABLET 10 MG PO ×4 (07:59→20:15)
[2024-05-30 08:16] LABS: Basophils # (Auto) 0.1 Thou/mm3 (0.0-0.2); Basophils % (Auto) 1 % (0-2.5); Eosinophils # (Auto) 0.2 Thou/mm3 (0.0-0.5); Eosinophils % (Auto) 1 % (0-10); Hematocrit 27.3 % (36.0-46.0); Immature Granulocytes % (Auto) 9 % (0-0); Immature Granulocytes Auto 1.56 Thou/mm3 (0.00-0.00); Lymphocytes # (Auto) 1.2 Thou/mm3 (1.0-4.8); Lymphocytes % (Auto) 7 % (10-50); Mean Corpuscular HGB Conc 32.2 g/dl (31.0-37.0); Mean Corpuscular Hemoglobin 26.8 pg (25.0-35.0); Mean Corpuscular Volume 83 fL (80-100); Monocytes # (Auto) 0.7 Thou/mm3 (0.0-0.8); Monocytes % (Auto) 4 % (0-12); Neutrophils # (Auto) 13.4 Thou/mm3 (1.8-7.7); Neutrophils % (Auto) 79 % (37-80); Nucleated Red Blood Cell # 0.08 Thou/mm3 (0.00-0.00); Nucleated Red Blood Cell % 1 /100 WBC (0); Platelet Count 466 Thou/mm3 (140-440); RDW Standard Deviation 57.1 fL (36.4-46.3); Red Blood Count 3.28 Miln/mm3 (4.00-5.20); White Blood Count 17.1 Thou/mm3 (3.6-11.0)
[2024-05-30 08:22] LABS: Hemoglobin 8.8 g/dL (12.0-16.0)
[2024-05-30] MEDS: PANTOPRAZOLE INJ 40 MG VIAL IVP ×2 (08:30→20:16)
[2024-05-30 09:01] LABS: Alanine Aminotransferase < 7 U/L (10-49); Albumin, Serum 3.4 gm/dL (3.4-4.8); Albumin/Globulin Ratio 1.1 (1.2-2.2); Alkaline Phosphatase 130 U/L (46-116); Anion Gap 10 (7-16); Aspartate Amino Transferase 10 U/L (0-34); BUN/Creatinine Ratio 11 Ratio (12-20); Bilirubin,Total 0.4 mg/dL (0.3-1.2); Blood Urea Nitrogen 50 mg/dL (9-23); Calcium 9.4 mg/dL (8.3-10.6); Calcium (Corrected) 9.9 mg/dL (8.5-10.1); Carbon Dioxide 21.9 mMol/L (20.0-31.0); Chloride 96 mMol/L (98-107); Creatinine (Component) 4.7 mg/dL (0.6-1.3); Globulin 3.2 gm/dL (2.3-3.5); Glucose 273 mg/dL (74-106); Magnesium 1.8 mg/dL (1.6-2.6); Osmolality,Calculated 280 (275-295); Phosphorous 3.6 mg/dL (2.4-5.1); Potassium 3.5 mMol/L (3.4-5.1); Sodium 128 mMol/L (136-145); Total Protein 6.6 gm/dL (5.7-8.2); eGFR 10 See Note
--- NOTE | 2024-05-30 10:16 | ESPR_ITS ---
Documentation for date of: 05/30/24 Subjective Subjective Interval history: Hemoglobin hematocrit 8.8 and 27.9 No signs of any active bleeding Exam Vital Signs Temp Pulse Resp BP Pulse Ox O2 Del Method O2 Flow Rate 97.5 F 72 31 H 99/49 L 98 Nasal Cannula 1 05/30/24 08:00 05/30/24 08:00 05/30/24 08:00 05/30/24 08:00 05/30/24 08:00 05/30/24 08:00 05/30/24 08:00 FiO2 35 05/30/24 04:00 Objective Labs 05/31/24 05:40 05/31/24 05:40 Labs: Laboratory Results - last 24 hr 05/29/24 05/29/24 05/29/24 12:28 13:04 17:36 WBC RBC Hgb Hct MCV MCH MCHC RDW Std Deviation Plt Count Neut % (Auto) Lymph % (Auto) [place] % (Auto) Eos % (Auto) Baso % (Auto) Neut # (Auto) Lymph # (Auto) [place] # (Auto) Eos # (Auto) Baso # (Auto) Immature Gran # (Auto) Absolute Nucleated RBC Immature Gran % Nucleated RBC % Puncture Site Right Radial ABG pH 7.42 ABG pCO2 35 ABG pO2 67 L ABG HCO3 23 ABG O2 Saturation 95 ABG Base Excess -2 FiO2 21 Sodium 132 L 131 L Potassium Chloride Carbon Dioxide Anion Gap BUN Creatinine Estim Creat Clear Calc eGFR BUN/Creatinine Ratio Glucose Calculated Osmolality Calcium Corrected Calcium Phosphorus Magnesium Total Bilirubin AST ALT Alkaline Phosphatase Total Protein Albumin Globulin Albumin/Globulin Ratio 05/30/24 05/30/24 00:40 07:49 WBC 17.1 H RBC 3.28 L Hgb 8.8 L Hct 27.3 L MCV 83 MCH 26.8 MCHC 32.2 RDW Std Deviation 57.1 H Plt Count 466 H Neut % (Auto) 79 Lymph % (Auto) 7 L [place] % (Auto) 4 Eos % (Auto) 1 Baso % (Auto) 1 Neut # (Auto) 13.4 H Lymph # (Auto) 1.2 [place] # (Auto) 0.7 Eos # (Auto) 0.2 Baso # (Auto) 0.1 Immature Gran # (Auto) 1.56 H Absolute Nucleated RBC 0.08 H Immature Gran % 9 H Nucleated RBC % 1 H Puncture Site ABG pH ABG pCO2 ABG pO2 ABG HCO3 ABG O2 Saturation ABG Base Excess FiO2 Sodium 131 L 128 L Potassium 3.5 Chloride 96 L Carbon Dioxide 21.9 Anion Gap 10 BUN 50 H Creatinine 4.7 H* D Estim Creat Clear Calc 10.0 L eGFR 10 L* BUN/Creatinine Ratio 11 L Glucose 273 H D Calculated Osmolality 280 Calcium 9.4 Corrected Calcium 9.9 Phosphorus 3.6 Magnesium 1.8 Total Bilirubin 0.4 AST 10 ALT < 7 L Alkaline Phosphatase 130 H Total Protein 6.6 Albumin 3.4 Globulin 3.2 Albumin/Globulin Ratio 1.1 L Impressions Impression: # Perforated gastric ulcer status post surgical intervention Continue to monitor CBC and continue PPIs ABG Interpretation ABG results: 05/13/24 05/15/24 05/15/24 08:29 15:28 16:03 ABG pH 7.39 7.05 L* D 7.17 L* D ABG pCO2 31 L 63 H D 45 D ABG pO2 78 L 38 L* D 84 D ABG HCO3 19 L 18 L 16 L ABG O2 Saturation 96 59 L 96 ABG Base Excess -5 L -12 L -11 L VBG pH VBG pCO2 VBG pO2 VBG Base Excess 05/16/24 05/17/24 05/18/24 04:38 04:03 04:20 ABG pH 7.28 L D 7.38 D 7.49 H D ABG pCO2 34 D 28 L 30 L ABG pO2 96 85 66 L ABG HCO3 16 L 17 L 23 ABG O2 Saturation 98 97 94 ABG Base Excess -10 L -8 L 0 VBG pH VBG pCO2 VBG pO2 VBG Base Excess 05/19/24 05/20/24 05/21/24 09:05 06:05 22:35 ABG pH 7.30 L D 7.41 D ABG pCO2 49 H D 42 ABG pO2 63 L 63 L ABG HCO3 24 27 H ABG O2 Saturation 91 93 ABG Base Excess -3 2 VBG pH 7.31 L VBG pCO2 50 VBG pO2 39 VBG Base Excess -2 05/26/24 05/29/24 04:17 12:28 ABG pH 7.38 7.42 ABG pCO2 42 35 ABG pO2 81 L 67 L ABG HCO3 25 23 ABG O2 Saturation 97 95 ABG Base Excess 0 -2 VBG pH VBG pCO2 VBG pO2 VBG Base Excess Assessment & Plan A&P Narrative abd abscess, cx neg here since 05/13. so on rx a long time now. usual rx for most things is 7d. left on merrem thru weekend but collection in abd did not grow a likely pathogen, so stopped abx Time Spent With Patient Time: Total time spent is greater than 50% in coordination of care (as documented) at patient's floor/unit and/or counseling patient:
--- NOTE | 2024-05-30 10:36 | ESPR_ITS ---
Documentation for date of: 05/30/24 Subjective Subjective Brief History: 69F with HTN, CKDIII, pre DM and known gastric ulcers who was admitted 05/13 after being found down at home. Pt was admitted for encephalopathy and pneumonia, developed anemia for which EGD was planned today however this am had an [employer] for tachycardia, hypotension and acute pain; she underwent CT AP showing pneumoperitoneum with air droplets adjacent to the stomach PMH: HTN, CKDIII, preDM, known gastric ulcers on EGD 10/2023 PSHx: None Meds: No antiplt or anticoagulation Allergies: NKDA Narrative: Started on CLD and PO meds yesterday, no acute changes, remaining afebrile, WBC 17 from 21 Exam Vital Signs Temp Pulse Resp BP Pulse Ox O2 Del Method O2 Flow Rate 97.5 F 72 31 H 99/49 L 98 Nasal Cannula 1 05/30/24 08:00 05/30/24 08:00 05/30/24 08:00 05/30/24 08:00 05/30/24 08:00 05/30/24 08:00 05/30/24 08:00 FiO2 35 05/30/24 04:00 Constitutional Constitutional: mild distress Routine Respiratory Exam Respiratory: Present wheezes Results Results: Laboratory Laboratory results: results reviewed Assessment & Plan Plan 69F with HTN, CKDIII, pre DM and known gastric ulcers who was admitted 05/13 after being found down at home, who developed pneumoperitoneum 05/15 s/p emergent ex lap, repair of gastric perforation, with postop abscess requiring percutaneous drain placement, gradually recovering Advance diet as tolerated Strict I&O Procedures Procedures Exploratory laparotomy, repair of perforated gastric ulcer
[2024-05-30] MEDS: TIMOLOL OP SOL 0.5% 5 ML BTL 1 DROP BOTH EYES (10:41)
--- NOTE | 2024-05-30 11:46 | PD.NEPHPROG ---
Documentation for date of: 05/30/24 Subjective Subjective Interval history: Interval history: Mr. Castellanos is a [id number] with past medical history of prediabetes, CKD, hypertension, history of ulcers who was admitted to [facility] for sepsis secondary to pneumonia and acute metabolic encephalopathy. Patient was BIBA to the ED after being found unconscious on the floor. According to the son on admission patient's daughter found the patient at 3 AM passed out on the floor and unresponsive. Family is unaware along the patient was on the floor. 2 days ago patient started to develop abdominal pain and weakness all over her body associated with some diarrhea and shortness of breath. Patient's abdominal pain comes and goes from right side to left side of the abdomen. ED course patient was hypertensive tachycardic tachypneic and was saturating 92% on 5 L nasal cannula ED labs significant for WBCs 24.3, bicarb 19.6, glucose 259, lactic acid 2.2, BNP 304, troponin 0.09. 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, colonic diverticulosis, Cervical spine CT showed 3 mm radiolucency in C3 vertebral body Chest CTA showed mild aneurysmal dilatation ascending thoracic aorta AP dimension 4.3 cm and pulmonary artery hypertension with moderate vascular congestion Face CT shows no acute facial fracture, Lumbar spine CT shows no acute lumbar fracture severe acquired spinal stenosis L4-L5, Thoracic spine CT showed no acute fracture Brain MRI with MRA showed equally focal restricted diffusion brainstem medullary level significant stenosis of right P1 P2 segment posterior cerebral artery Postadmission, cardiology was consulted on admission because of elevated troponins, suspicion of NSTEMI type II, patient has acute decompensated heart failure per cardiology evaluation, neurology consulted because of patient's acute metabolic encephalopathy and GI was consulted for suspicion of GI bleed. Eventually on 05/15 rapid response was called for worsening chest pain, patient's map was consistently in 70s, was tachycardic tachypneic. CT angiogram showed pneumoperitoneum multiple air droplets adjacent to and within wall of stomach with suspicion of gastric perforation. General surgery was consulted for emergency surgery and patient had exploratory laparotomy with repair of perforated gastric ulcer with an omental patch. Patient was upgraded to ICU postop for further management patient currently on Levophed and vasopressor due to distributive shock, currently sedated and intubated on mechanical ventilation. Nephrology consulted due to concern of ADILSON. 05/16/24: Patient seen at bedside, patient's daughter present at bedside labs reviewed patient's creatinine 3.0, GFR 16 and BUN 60. Patient's baseline GFR more than 60, does report history of chronic kidney disease. Patient's urine output yesterday 820 mL, there is suspicion of acute kidney injury due to patient's underlying distributive shock versus hypovolemic shock, will continue to monitor patient's urine output and renal panel in a.m., plan of care discussed with patient's family at bedside they want to proceed with dialysis if needed. Will continue to monitor patient. 05/20/24: Patient seen at bedside, was downgraded to floors yesterday, was hypotensive overnight, was upgraded to ICU, currently on pressors, agonal breathing noted, will hold dialysis today, patient did receive dialysis yesterday, had about 1.5 L fluid removed. Patient's urine output continues to remain low. Will continue to monitor patient closely. 05/22/24: Patient seen at bedside in the ICU. Saturates well on 2 L NC, blood pressure 134/80, off pressors. Tries to follow commands. On examination has extensive anasarca. Urine output 210 mL. Patient will receive dialysis today with goal to remove 2 L of fluid. Will continue to monitor patient closely. Labs showed sodium 142, potassium 4.3, BUN 49, creatinine 4.6, EGFR 10. 05/25/2024 patient currently seen in ICU. On dialysis. More alert and awake. Family at bedside. Urine output still very minimal. Currently on TPN. Spoke to Dr. Murguia. Ultrafiltration 2 L in progress. Edema tad better. On low-dose pressors. 05/29/2024 patient currently seen and dialysis. She seems to be very sleepy. Did receive a Benadryl last night. Daughter at bedside. Unable to remove any fluid due to hypotension. Will plan for sequential ultrafiltration tomorrow. Spoke to primary team-midodrine was added. Labs, medications reviewed. 05/30/2024 patient currently seen on dialysis. Unable to remove fluid yesterday due to hypotension. Blood pressure still remains on the lower side. Currently on midodrine 4 times a day. Sodium 128. Will do dialysis to correct the sodium. White count tad elevated. Review of Systems Review of Systems Narrative Review of Systems: Patient more alert and awake today. Denies any chest pain, shortness of breath. Exam Vital Signs Temp Pulse Resp BP Pulse Ox O2 Del Method O2 Flow Rate 36.4 C 72 31 H 99/49 L 98 Nasal Cannula 1 05/30/24 08:00 05/30/24 08:00 05/30/24 08:00 05/30/24 08:00 05/30/24 08:00 05/30/24 08:00 05/30/24 08:00 FiO2 35 05/30/24 04:00 Narrative Exam GENERAL APPEARANCE: Patient currently on dialysis NECK: Neck supple, no JVD or bruit CARDIOVASCULAR: Heart regular, no murmurs LUNGS/CHEST: Few rhonchi noted bilaterally ABDOMEN: S/p bowel surgery with the 2 drains. EXTREMITIES: 1+ edema in the legs SKIN: IJ PermCath MUSCULOSKELETAL: In bed NEUROLOGICAL : More alert and awake Objective Labs 05/31/24 05:40 05/31/24 12:25 Labs: Laboratory Results - last 24 hr 05/29/24 05/29/24 05/29/24 12:28 13:04 17:36 WBC RBC Hgb Hct MCV MCH MCHC RDW Std Deviation Plt Count Neut % (Auto) Lymph % (Auto) Ness % (Auto) Eos % (Auto) Baso % (Auto) Neut # (Auto) Lymph # (Auto) Ness # (Auto) Eos # (Auto) Baso # (Auto) Immature Gran # (Auto) Absolute Nucleated RBC Immature Gran % Nucleated RBC % Puncture Site Right Radial ABG pH 7.42 ABG pCO2 35 ABG pO2 67 L ABG HCO3 23 ABG O2 Saturation 95 ABG Base Excess -2 FiO2 21 Sodium 132 L 131 L Potassium Chloride Carbon Dioxide Anion Gap BUN Creatinine Estim Creat Clear Calc eGFR BUN/Creatinine Ratio Glucose Calculated Osmolality Calcium Corrected Calcium Phosphorus Magnesium Total Bilirubin AST ALT Alkaline Phosphatase Total Protein Albumin Globulin Albumin/Globulin Ratio 05/30/24 05/30/24 00:40 07:49 WBC 17.1 H RBC 3.28 L Hgb 8.8 L Hct 27.3 L MCV 83 MCH 26.8 MCHC 32.2 RDW Std Deviation 57.1 H Plt Count 466 H Neut % (Auto) 79 Lymph % (Auto) 7 L Ness % (Auto) 4 Eos % (Auto) 1 Baso % (Auto) 1 Neut # (Auto) 13.4 H Lymph # (Auto) 1.2 Ness # (Auto) 0.7 Eos # (Auto) 0.2 Baso # (Auto) 0.1 Immature Gran # (Auto) 1.56 H Absolute Nucleated RBC 0.08 H Immature Gran % 9 H Nucleated RBC % 1 H Puncture Site ABG pH ABG pCO2 ABG pO2 ABG HCO3 ABG O2 Saturation ABG Base Excess FiO2 Sodium 131 L 128 L Potassium 3.5 Chloride 96 L Carbon Dioxide 21.9 Anion Gap 10 BUN 50 H Creatinine 4.7 H* D Estim Creat Clear Calc 10.0 L eGFR 10 L* BUN/Creatinine Ratio 11 L Glucose 273 H D Calculated Osmolality 280 Calcium 9.4 Corrected Calcium 9.9 Phosphorus 3.6 Magnesium 1.8 Total Bilirubin 0.4 AST 10 ALT < 7 L Alkaline Phosphatase 130 H Total Protein 6.6 Albumin 3.4 Globulin 3.2 Albumin/Globulin Ratio 1.1 L ABG Interpretation ABG results: 05/13/24 05/15/24 05/15/24 08:29 15:28 16:03 ABG pH 7.39 7.05 L* D 7.17 L* D ABG pCO2 31 L 63 H D 45 D ABG pO2 78 L 38 L* D 84 D ABG HCO3 19 L 18 L 16 L ABG O2 Saturation 96 59 L 96 ABG Base Excess -5 L -12 L -11 L VBG pH VBG pCO2 VBG pO2 VBG Base Excess 05/16/24 05/17/24 05/18/24 04:38 04:03 04:20 ABG pH 7.28 L D 7.38 D 7.49 H D ABG pCO2 34 D 28 L 30 L ABG pO2 96 85 66 L ABG HCO3 16 L 17 L 23 ABG O2 Saturation 98 97 94 ABG Base Excess -10 L -8 L 0 VBG pH VBG pCO2 VBG pO2 VBG Base Excess 05/19/24 05/20/24 05/21/24 09:05 06:05 22:35 ABG pH 7.30 L D 7.41 D ABG pCO2 49 H D 42 ABG pO2 63 L 63 L ABG HCO3 24 27 H ABG O2 Saturation 91 93 ABG Base Excess -3 2 VBG pH 7.31 L VBG pCO2 50 VBG pO2 39 VBG Base Excess -2 05/26/24 05/29/24 04:17 12:28 ABG pH 7.38 7.42 ABG pCO2 42 35 ABG pO2 81 L 67 L ABG HCO3 25 23 ABG O2 Saturation 97 95 ABG Base Excess 0 -2 VBG pH VBG pCO2 VBG pO2 VBG Base Excess Assessment & Plan Additional Assessment & Plan Additional Plan: Mr. Castellanos is a [id number] with past medical history of prediabetes, CKD, hypertension, history of ulcers who was admitted to [facility] for sepsis secondary to pneumonia and acute metabolic encephalopathy. Patient is currently sedated intubated in ICU status post exploratory laparotomy with repair of perforated gastric ulcer with an omental patch. Nephrology consulted for acute kidney injury. #Acute kidney injury #Acute Tubular Necrosis 2/2 shock #Anasarca Patient currently seems to be in ATN probably ischemic from fluctuations in blood pressure and underlying shock- started her on dialysis. Patient currently seen on dialysis. Tolerating dialysis without any problems. Hemodialysis for 3 hours, 2K, ultrafiltration 2 L, Epogen 6000, no heparin ordered. Plan of care discussed with the dialysis nurse. Please see dialysis flowsheet for further details. Patient was started on TPN with significant fluid overload-next dialysis scheduled for Hyponatremia will be corrected with dialysis. -Renally dose medications -Avoid nephrotoxic agents -Monitor urine output, strict I&O's -Follow renal panel in a.m. Plan discussed with primary team #Metabolic acidosis, resolved #Lactic Acidosis #Acute Encephalopathy #Acute ischemic stroke #Distributive shock #Acute decompensated HF #Elevated Troponin #Hyperlipidemia #Primary Hypertension #Acute Hypoxic Respiratory failure #Pneumoperitoneum #Peritonitis secondary to perforated gastric ulcer #Acute Upper GI bleed #Diabetes Mellitus type II #Acute anemia All above problems per primary team. Prognosis remains guarded.
--- NOTE | 2024-05-30 12:03 | PD.RESPRO ---
Documentation for date of: 05/30/24 Subjective Subjective Interval history: Patient seen and and examined at bedside. Patient started on p.o. midodrine, scheduled for hemodialysis today. Patient was evaluated by general surgery, recommended to advance diet. Surgery will evaluate output from both SADI drain and accordion drain once patient tolerates p.o. diet. Infectious disease following case, discontinued antibiotics, cultures unremarkable, WBC count trending down. Ordered physical therapy. Will continue to monitor patient. Exam Vital Signs Temp Pulse Resp BP Pulse Ox O2 Del Method O2 Flow Rate 97.5 F 85 31 H 119/65 98 Nasal Cannula 1 05/30/24 08:00 05/30/24 12:01 05/30/24 08:00 05/30/24 12:01 05/30/24 08:00 05/30/24 08:00 05/30/24 08:00 FiO2 35 05/30/24 04:00 Narrative Exam General: AAOx3, appears to be in some distress HEENT: Moist mucous membranes, conjunctiva clear, EOMI, PERRLA, Cardiovascular: S1, S2, radial pulses +2 bilat, Irregularly irregular rhythm Pulmonary: CTAB bilat no cough, no wheezing mild crackles. GI: [place] present s/p Ex lap, Sadi and accordion drains present, minimal drainage. Extremities: 1+ pitting edema in lower extremities bilaterally, dorsalis pedis pulses +2 bilaterally, feet cold to touch bilat. Skin: No rash Neuro: AAOx3, no focal motor or sensory deficits in the UE or LE bilat Psych: Cooperative Objective Labs 06/06/24 04:46 06/06/24 04:46 Labs: Laboratory Results - last 24 hr 05/29/24 05/29/24 05/29/24 12:28 13:04 17:36 WBC RBC Hgb Hct MCV MCH MCHC RDW Std Deviation Plt Count Neut % (Auto) Lymph % (Auto) Ashley % (Auto) Eos % (Auto) Baso % (Auto) Neut # (Auto) Lymph # (Auto) Ashley # (Auto) Eos # (Auto) Baso # (Auto) Immature Gran # (Auto) Absolute Nucleated RBC Immature Gran % Nucleated RBC % Puncture Site Right Radial ABG pH 7.42 ABG pCO2 35 ABG pO2 67 L ABG HCO3 23 ABG O2 Saturation 95 ABG Base Excess -2 FiO2 21 Sodium 132 L 131 L Potassium Chloride Carbon Dioxide Anion Gap BUN Creatinine Estim Creat Clear Calc eGFR BUN/Creatinine Ratio Glucose Calculated Osmolality Calcium Corrected Calcium Phosphorus Magnesium Total Bilirubin AST ALT Alkaline Phosphatase Total Protein Albumin Globulin Albumin/Globulin Ratio 05/30/24 05/30/24 00:40 07:49 WBC 17.1 H RBC 3.28 L Hgb 8.8 L Hct 27.3 L MCV 83 MCH 26.8 MCHC 32.2 RDW Std Deviation 57.1 H Plt Count 466 H Neut % (Auto) 79 Lymph % (Auto) 7 L Ashley % (Auto) 4 Eos % (Auto) 1 Baso % (Auto) 1 Neut # (Auto) 13.4 H Lymph # (Auto) 1.2 Ashley # (Auto) 0.7 Eos # (Auto) 0.2 Baso # (Auto) 0.1 Immature Gran # (Auto) 1.56 H Absolute Nucleated RBC 0.08 H Immature Gran % 9 H Nucleated RBC % 1 H Puncture Site ABG pH ABG pCO2 ABG pO2 ABG HCO3 ABG O2 Saturation ABG Base Excess FiO2 Sodium 131 L 128 L Potassium 3.5 Chloride 96 L Carbon Dioxide 21.9 Anion Gap 10 BUN 50 H Creatinine 4.7 H* D Estim Creat Clear Calc 10.0 L eGFR 10 L* BUN/Creatinine Ratio 11 L Glucose 273 H D Calculated Osmolality 280 Calcium 9.4 Corrected Calcium 9.9 Phosphorus 3.6 Magnesium 1.8 Total Bilirubin 0.4 AST 10 ALT < 7 L Alkaline Phosphatase 130 H Total Protein 6.6 Albumin 3.4 Globulin 3.2 Albumin/Globulin Ratio 1.1 L ABG Interpretation ABG results: 05/13/24 05/15/24 05/15/24 08:29 15:28 16:03 ABG pH 7.39 7.05 L* D 7.17 L* D ABG pCO2 31 L 63 H D 45 D ABG pO2 78 L 38 L* D 84 D ABG HCO3 19 L 18 L 16 L ABG O2 Saturation 96 59 L 96 ABG Base Excess -5 L -12 L -11 L VBG pH VBG pCO2 VBG pO2 VBG Base Excess 05/16/24 05/17/24 05/18/24 04:38 04:03 04:20 ABG pH 7.28 L D 7.38 D 7.49 H D ABG pCO2 34 D 28 L 30 L ABG pO2 96 85 66 L ABG HCO3 16 L 17 L 23 ABG O2 Saturation 98 97 94 ABG Base Excess -10 L -8 L 0 VBG pH VBG pCO2 VBG pO2 VBG Base Excess 05/19/24 05/20/24 05/21/24 09:05 06:05 22:35 ABG pH 7.30 L D 7.41 D ABG pCO2 49 H D 42 ABG pO2 63 L 63 L ABG HCO3 24 27 H ABG O2 Saturation 91 93 ABG Base Excess -3 2 VBG pH 7.31 L VBG pCO2 50 VBG pO2 39 VBG Base Excess -2 05/26/24 05/29/24 04:17 12:28 ABG pH 7.38 7.42 ABG pCO2 42 35 ABG pO2 81 L 67 L ABG HCO3 25 23 ABG O2 Saturation 97 95 ABG Base Excess 0 -2 VBG pH VBG pCO2 VBG pO2 VBG Base Excess Quality Measures Quality Measures VTE prophylaxis (Heparin) Advance care planning discussed with:: patient Assessment & Plan Assessment Current Active Medications: Generic Name Dose Route Start Last Admin Trade Name Freq PRN Reason Stop Dose Admin Albuterol/Ipratropium 3 ml 05/27/24 18:08 05/29/24 21:09 Albuterol/Ipratropium (Duoneb) Rt Jimena 3 Ml Nebu INH 06/26/24 18:07 3 ml Q2HR PRN Administration SHORTNESS OF BREATH OR WHEEZE Amiodarone HCl 200 mg 05/29/24 15:00 05/30/24 07:56 Amiodarone Hcl 200 Mg Tablet PO 06/28/24 14:59 200 mg BID ANGELICA Administration Dextrose 25 ml 05/24/24 15:43 Dextrose 50%-Water Inj 50 Ml Syringe IV 06/23/24 15:42 Q15MIN PRN BG 50-70 responsive npo pt Dextrose 50 ml 05/24/24 15:43 Dextrose 50%-Water Inj 50 Ml Syringe IV 06/23/24 15:42 Q15MIN PRN BG <50 OR BG <70 & pt unresponsive Fentanyl Citrate 30 mcg 05/28/24 10:53 05/30/24 10:37 Fentanyl Cit Inj 50 Mcg/Ml Amp 2ml IVP 05/31/24 13:59 30 mcg Q2HR PRN Administration Pain 7-10 Glucagon 1 mg 05/24/24 15:43 Glucagon Inj 1 Mg Vial IM Q15MIN PRN BG <70, and no IV access Heparin Sodium (Porcine) 2,500 unit 05/17/24 15:52 05/29/24 11:35 Heparin Sod Inj 1000 Unit/Ml Vial 10 Ml INDWELLCAT 05/31/24 15:51 2,500 unit PRN PRN Administration DIALYSIS Heparin Sodium/Dextrose 25,000 unit in 250 mls @ 10.212 mls/hr 05/23/24 18:15 05/28/24 18:28 Heparin In D5w Ivpb IV 06/06/24 18:14 0 units/kg/hr .Q24H ANGELICA 0 mls/hr Titration Protocol 12 UNITS/KG/HR Albumin Human 25 gm in 100 mls @ 100 mls/min 05/25/24 10:07 05/29/24 08:46 Albuminar-25 Ivpb IV 100 mls/min PRN PRN Administration DIALYSIS Fat Emulsion-Garner Oil/Soybean Oil 500 mls @ 32 mls/hr 05/27/24 18:00 05/28/24 18:04 Clinopid 20% Iv IV 06/26/24 17:59 Infused [email or web address]@1800 ANGELICA Infusion Amino Acids 2,000 mls @ 20 mls/hr 05/29/24 18:00 05/29/24 17:41 Clinimix 5/20 IV 05/30/24 17:59 20 mls/hr [email or web address] ANGELICA Administration Insulin Glargine 12 unit 05/25/24 09:00 05/30/24 07:56 Insulin Glargine (Lantus) 5 Unit/0.05 Ml (Per 5 Units) SC 06/24/24 08:59 12 unit QDAY ANGELICA Administration Insulin Human Lispro 0 unit 05/24/24 18:00 05/30/24 12:02 Insulin Lispro (Admelog) 1 Unit/0.01 Ml Unit SC 06/23/24 17:59 Not Given Q6HR [facility] Protocol Lidocaine 1 patch 05/30/24 09:16 Lidocaine 5% 1 Patch TOP 06/29/24 09:15 DAILY PRN BACK PAIN Midodrine 10 mg 05/30/24 12:00 05/30/24 12:01 Midodrine 5 Mg Tablet PO 06/29/24 11:59 10 mg QID ANGELICA Administration Ondansetron HCl 4 mg 05/13/24 11:58 05/14/24 12:31 Ondansetron Inj 2 Mg/Ml Inj 2 Ml IV 06/12/24 11:57 4 mg Q6H PRN Administration NAUSEA OR VOMITING Protocol Pantoprazole Sodium 40 mg 05/15/24 21:00 05/30/24 08:30 Pantoprazole Inj 40 Mg Vial IVP 06/14/24 20:59 40 mg BID ANGELICA Administration Pharmacy Consult 1 each 05/16/24 10:27 Pharmacy Renal Dose Adjustment 1 Ea XX 06/15/24 10:26 PRN PRN CONSULT Sodium Chloride 3 ml 05/24/24 19:00 Sodium Chloride Rt Jimena 0.9% 3 Ml Nebu INH 06/23/24 18:59 PRN PRN SOLN Timolol Maleate 1 drop 05/28/24 18:15 05/30/24 10:41 Timolol Op Jimena 0.5% 5 Ml Btl BOTH EYES 06/27/24 18:14 1 drop DAILY ANGELICA Administration Plan Assessment: Ms. Castellanos is a 69-year-old female with past medical history significant for hypertension, diabetes and history of gastric ulcers who presented to the ED on 05/13/2024 after she was found unconscious on the floor. Per chart reviewing prior to this unconsciousness patient was having abdominal pain and generalized weakness with diarrhea and shortness of breath for 2 days. Patient was admitted to the hospital for treatment and management of sepsis secondary to pneumonia. Patient was given 1 L normal saline and started on ceftriaxone and azithromycin. patient underwent ex lap surgery for perforated gastric ulcer. Patient remained intubated postop and is upgraded to the ICU. #Perforated gastric ulcer #Pneumoperitoneum #Peritonitis secondary to perforated gastric ulcer #Abdominal Abscess, status post percutaneous drainage #Leukocytosis Patient found to have tender abdomen, rigidity in the epigastrium, chest x-ray showed elevation of hemidiaphragm, CT abdomen showed pneumoperitoneum, concern for perforated viscus, general surgeon Dr. Santana was consulted for emergency laparotomy and possible repair of perforated gastric ulcer. Repeat CT abd/pel on 05/20 revealed Pneumoperitoneum, orogastric tube in the stomach, mild free fluid adjacent to the stomach and anterior to the pancreas. s/p Exploratory laparotomy & repair of perforated gastric ulcer - 05/15. Plan: ?Patient completed antibiotic therapy, Meropenem and fluconazole, discontinued per ID Reccomendations -Pending Abscess Culture ?Pain control Fentanyl 30 mcg every 2 hours as needed ?Continue with TPN -Started on clear liquid diet, will advance as tolerated #New onset A-fib with RVR -Likely secondary to shock in the setting of abdominal surgery -EKG findings consistent with A-fib -Was on Amiodarone 200 twice daily for new onset Afib, but as she was in AFib with RVR. Plan: ?Cardiology consulted, appreciate recs -Currently on oral amiodarone 200mg ?Continue with heparin drip as patient may need surgical intervention #Acute tubular necrosis #Anuria -2/2 septic shock -Patient has 0 urine production -Baseline Cr appears to be 0.7 Plan: ?Patient underwent HD fluid removal and removed 2.1 L on 05/18 and 1.5 L on 05/19, 2L fluid removed 05/21, 2.5 L fluid removed on 05/22 , 3L fluid removed on 05/23, 3L fluid removed 05/25, 2L removed 05/26, 1 L removed 05/29 -Scheduled for hemodialysis today-05/30 -Started on midodrine 10 mg 4 times daily -Unable to tolerate dialysis today, talk to nephrology, possible another dialysis treatment tomorrow. -Guajardo catheter in place and monitor urine output closely. -Renally dose medications and avoid nephrotoxic agents -repeat labs in am -Nephrology following #Acute Hypoxic Respiratory failure likely multifactorial -2/2 to pulmonary edema in the setting of volume overload 2/2 ATN due to shock leading to oligoanuria versus bibasilar pneumonia -Further complicated by bilateral lung atelectasis in the setting of recent abdominal surgery and sedatives use -Patient was intubated and on mechanical ventilation (05/15) and extubated 05/18/2024, currently saturating 95-97 % on 1 L NC -Duonebs prn #Acute Upper GI bleed - stable - most likely secondary to perforated gastric ulcer -Patient had a single episode of black tarry stool today-likely setting of recent abdominal surgery -Continue iv Protonix. -Will monitor for alarm signs of active bleeding with melena or hematochezia #Hx of Diabetes Mellitus type II - A1C 6.3 % 05/21/2024 - Hold home glipizide and januvia - Plan: Continue to monitor blood sugars - Insulin sliding scale ordered with lantus 12 units #Hyperlipidemia Plan: -Hold home atorvastatin as patient is npo. Will reinstate as tolerated #Primary Hypertension Holding on resuming home blood pressure medicines at this time #Acute exacerbation of HFpEF -echo 05/16 -estimated EF of 55 to 60%, stage I diastolic dysfunction noted, Moderate to severe posterior MAC -Pt presented with SOB and 2+ edema in LE -elevated BNP from 304 --> 1110 -HD in the setting of anuria -holding guideline directed medical therapy due to shock, will resume when able -Continue dialysis #Acute blood loss anemia, stable 2/2 perforated ulcer- S/P surgical repair Hgb stable 9.6 Hct 28.3 patient received 2 units of PRBC 05/18 due to acutely drop in Hgb below 7. No signs of active bleeding. Plan: -Continue to monitor daily CBC. transfuse for hemoglobin less than 7. # Acute encephalopathy-improving -Likely multifactorial secondary to sepsis versus metabolic versus neurologic versus medication -Patient is awake and alert and follows commands. Patient is able to respond to yes or no questions verbally #Shock - resolved #Hypoosmolar Hyponatremia, resolved #Health Maintenance Disposition: Telemetry DVT prophylaxis: Heparin drip GI prophylaxis:Protonix 40 BID Diet: NPO Lines: Accordion drain, SADI drain, Guajardo CODE STATUS: Full Case discussed with Attending Dr. See. Geovani Mahmood PGY1 Attending Provider Attestation/Addendum 69-year-old female with multiple comorbidities including hypertension, type 2 diabetes mellitus and previous history of gastric ulcers who presented to the ER on 05/13/2024 after being found unconscious. Subsequently, patient was admitted for sepsis secondary to pneumonia and found to have acute blood loss anemia and subsequently started developing abdominal pain and imaging noted pneumoperitoneum and subsequently underwent emergency exploratory laparotomy and repair of gastric ulcer on 05/15/2024. Throughout the course of hospitalization, patient's course was complicated by intra-abdominal abscesses and cultures positive for Yolie and subsequently underwent drainage and currently on fluconazole. Furthermore, noted to have A-fib with RVR and subsequently transition to amiodarone and anticoagulation. As of now, plan to continue monitoring the patient closely and plan to discontinue drainage when appropriate. Appreciate general surgery input. I reviewed above note and agree with findings and plans. I have also personally examined the patient with medicine team and went over assessment and plan with medical team including programming internship and resident physician.
--- NOTE | 2024-05-30 13:24 | PC.NURSE ---
Addendum entered by Timur Leo RN 05/30/24 13:31: UF GOAL LOWERED TO 1.5L TOLERATED WILL CONT. TO MONITOR Original Note: BP TRENDING DOWN, PT REMAINS W/O DISTRESS NOTED. WILL ADMIN PRN ALBUMIN PER MD ORDERS AND CONT.T O MONITOR
[2024-05-30] MEDS: ALBUMIN HUMAN 25% IVPB 25 GM/100 ML BTL IV (13:25)
--- NOTE | 2024-05-30 13:56 | PCS.ST ---
Recieved order for swallow re-evaluation. Pt is in dialysis and not able to fully participate d/t low BP and unable to sit upright. ST will see pt in AM for complete swallow re-evaluation.
--- NOTE | 2024-05-30 15:02 | PC.NURSE ---
PT TOLERATING TX, UF GOAL INCREASED TO 1.6L TOLERATED WILL CONT. TO MONITOR
[2024-05-30 15:13] LABS: INR 1.3 (0.9-1.3); Partial Thromboplastin Time 39.1 Seconds (22.0-36.0); Prothrombin Time 14.1 Seconds (9.0-12.2)
--- NOTE | 2024-05-30 15:14 | PC.NURSE ---
BP TRENDING DOWN, UF GOAL LOWERED TO 1.5L TOLERATED WILL CONT. TO MONITOR
[2024-05-30] MEDS: HEPARIN SOD INJ 1000 UNIT/ML VIAL 10 ML 2500 UNIT INDWELLCAT (16:24)
[2024-05-30] MEDS: HEPARIN SOD INJ 5000 UNIT/ML VIAL 2400 UNIT IV (16:37)
[2024-05-30] MEDS: Heparin/D5w 25K 250 ML Ivpb 25,000 UNIT/250 ML BAG 10.2 UNIT IV (16:39)
[2024-05-30] MEDS: FAT EMUL/OLIVE/SOY/PHOS 20% IV 500 ML 32 ML IV (17:20)
[2024-05-30] MEDS: POT CHL ADDITIVE IV (18:02)
[2024-05-30] MEDS: [UNRECOGNIZED DRUG - OTHER] IV (18:02)
[2024-05-30] MEDS: SODIUM ACET ADDITIVE IV (18:02)
[2024-05-30] MEDS: AMINO ACID IV (18:02)
[2024-05-30 19:21] LABS: Sodium 129 mMol/L (136-145)
[2024-05-30] MEDS: ALBUTEROL/IPRATROPIUM (Duoneb) RT SOL 3 ML NEBU INH (20:25)
[2024-05-30] MEDS: INSULIN LISPRO (AdmeLOG) 1 UNIT/0.01 ML UNIT SC (23:25)
[2024-05-30 23:54] LABS: Partial Thromboplastin Time 65.2 Seconds (22.0-36.0)
[2024-05-31] VITALS (18 sets, daily range): BP systolic 98–142; BP diastolic 57–87; PULSE 68–117; RESP 15–28; TEMP 36.2–36.5; O2SAT 92–98; BMI 37.0
[2024-05-31 01:00] LABS: Sodium 133 mMol/L (136-145)
[2024-05-31] MEDS: fentaNYL CIT INJ 50 mCg/ML AMP 2ML 30 MCG IVP ×4 (01:57→22:05)
[2024-05-31] MEDS: ALBUTEROL/IPRATROPIUM (Duoneb) RT SOL 3 ML NEBU INH ×2 (02:02→23:15)
[2024-05-31] MEDS: MIDODRINE 5 MG TABLET 10 MG PO (05:58)
[2024-05-31] MEDS: INSULIN LISPRO (AdmeLOG) 1 UNIT/0.01 ML UNIT SC ×2 (05:58→11:46)
[2024-05-31 06:03] LABS: Basophils # (Auto) 0.1 Thou/mm3 (0.0-0.2); Basophils % (Auto) 1 % (0-2.5); Eosinophils # (Auto) 0.1 Thou/mm3 (0.0-0.5); Eosinophils % (Auto) 1 % (0-10); Hematocrit 25.8 % (36.0-46.0); Immature Granulocytes % (Auto) 9 % (0-0); Immature Granulocytes Auto 1.48 Thou/mm3 (0.00-0.00); Lymphocytes # (Auto) 1.3 Thou/mm3 (1.0-4.8); Lymphocytes % (Auto) 8 % (10-50); Mean Corpuscular HGB Conc 32.9 g/dl (31.0-37.0); Mean Corpuscular Hemoglobin 27.4 pg (25.0-35.0); Mean Corpuscular Volume 83 fL (80-100); Monocytes # (Auto) 0.7 Thou/mm3 (0.0-0.8); Monocytes % (Auto) 4 % (0-12); Neutrophils # (Auto) 13.1 Thou/mm3 (1.8-7.7); Neutrophils % (Auto) 78 % (37-80); Nucleated Red Blood Cell # 0.09 Thou/mm3 (0.00-0.00); Nucleated Red Blood Cell % 1 /100 WBC (0); Platelet Count 492 Thou/mm3 (140-440); RDW Standard Deviation 56.9 fL (36.4-46.3); White Blood Count 16.8 Thou/mm3 (3.6-11.0)
[2024-05-31 06:04] LABS: Hemoglobin 8.5 g/dL (12.0-16.0)
[2024-05-31 06:34] LABS: Alanine Aminotransferase < 7 U/L (10-49); Albumin, Serum 3.7 gm/dL (3.4-4.8); Albumin/Globulin Ratio 1.2 (1.2-2.2); Alkaline Phosphatase 132 U/L (46-116); Anion Gap 11 (7-16); Aspartate Amino Transferase 12 U/L (0-34); BUN/Creatinine Ratio 9 Ratio (12-20); Bilirubin,Total 0.5 mg/dL (0.3-1.2); Blood Urea Nitrogen 34 mg/dL (9-23); Calcium 9.4 mg/dL (8.3-10.6); Calcium (Corrected) 9.6 mg/dL (8.5-10.1); Carbon Dioxide 25.1 mMol/L (20.0-31.0); Chloride 94 mMol/L (98-107); Creatinine (Component) 3.6 mg/dL (0.6-1.3); Globulin 3.1 gm/dL (2.3-3.5); Glucose 131 mg/dL (74-106); Magnesium 1.7 mg/dL (1.6-2.6); Osmolality,Calculated 270 (275-295); Potassium 3.1 mMol/L (3.4-5.1); Sodium 130 mMol/L (136-145); Total Protein 6.8 gm/dL (5.7-8.2); eGFR 13 See Note
[2024-05-31] MEDS: POTASSIUM CHLORIDE 10% 20 MEQ/15 ML UDC 40 MEQ PO (08:48)
[2024-05-31] MEDS: AMIODARONE HCL 200 MG TABLET PO ×2 (08:49→20:13)
[2024-05-31] MEDS: INSULIN GLARGINE (Lantus) 5 UNIT/0.05 ML (PER 5 UNITS) 12 UNIT SC (08:49)
[2024-05-31] MEDS: TIMOLOL OP SOL 0.5% 5 ML BTL 1 DROP BOTH EYES (08:50)
[2024-05-31] MEDS: PANTOPRAZOLE INJ 40 MG VIAL IVP ×2 (08:50→20:14)
[2024-05-31] MEDS: NAPH,KPH MBDB 1 PACKET (1.5 GM) PO (09:36)
--- NOTE | 2024-05-31 10:17 | PCS.ST ---
Swallow Re-Evaluation completed. See report for details. Recommend Dysphagia 1/Reg liquids from tsp or cup sip and crush meds. ST will follow
--- NOTE | 2024-05-31 10:29 | PD.IMPROG ---
Documentation for date of: 05/31/24 Subjective Subjective Interval history: Downward trending hemoglobin hematocrit No signs of any active bleeding Exam Vital Signs Temp Pulse Resp BP Pulse Ox O2 Del Method O2 Flow Rate 97.2 F 68 15 140/85 H 98 High Flow Nasal Cannula 10 05/31/24 08:00 05/31/24 10:14 05/31/24 10:14 05/31/24 08:49 05/31/24 10:14 05/31/24 08:00 05/31/24 10:14 FiO2 28 05/31/24 10:14 Constitutional Comments: Chronically ill-appearing Routine Abdominal Exam Comments: Positive bowel sounds with BALAJI drain Objective Labs 05/31/24 05:40 05/31/24 05:40 Labs: Laboratory Results - last 24 hr 05/30/24 05/30/24 05/30/24 14:43 18:35 23:06 WBC RBC Hgb Hct MCV MCH MCHC RDW Std Deviation Plt Count Neut % (Auto) Lymph % (Auto) Carlton % (Auto) Eos % (Auto) Baso % (Auto) Neut # (Auto) Lymph # (Auto) Carlton # (Auto) Eos # (Auto) Baso # (Auto) Immature Gran # (Auto) Absolute Nucleated RBC Immature Gran % Nucleated RBC % PT 14.1 H INR 1.3 APTT 39.1 H 65.2 H D Sodium 129 L 133 L Potassium Chloride Carbon Dioxide Anion Gap BUN Creatinine Estim Creat Clear Calc eGFR BUN/Creatinine Ratio Glucose Calculated Osmolality Calcium Corrected Calcium Phosphorus Magnesium Total Bilirubin AST ALT Alkaline Phosphatase Total Protein Albumin Globulin Albumin/Globulin Ratio 05/31/24 05:40 WBC 16.8 H RBC 3.10 L Hgb 8.5 L Hct 25.8 L MCV 83 MCH 27.4 MCHC 32.9 RDW Std Deviation 56.9 H Plt Count 492 H Neut % (Auto) 78 Lymph % (Auto) 8 L Carlton % (Auto) 4 Eos % (Auto) 1 Baso % (Auto) 1 Neut # (Auto) 13.1 H Lymph # (Auto) 1.3 Carlton # (Auto) 0.7 Eos # (Auto) 0.1 Baso # (Auto) 0.1 Immature Gran # (Auto) 1.48 H Absolute Nucleated RBC 0.09 H Immature Gran % 9 H Nucleated RBC % 1 H PT INR APTT 66.0 H Sodium 130 L Potassium 3.1 L Chloride 94 L Carbon Dioxide 25.1 Anion Gap 11 BUN 34 H Creatinine 3.6 H D Estim Creat Clear Calc 13.0 L eGFR 13 L* BUN/Creatinine Ratio 9 L Glucose 131 H D Calculated Osmolality 270 L Calcium 9.4 Corrected Calcium 9.6 Phosphorus 2.0 L Magnesium 1.7 Total Bilirubin 0.5 AST 12 ALT < 7 L Alkaline Phosphatase 132 H Total Protein 6.8 Albumin 3.7 Globulin 3.1 Albumin/Globulin Ratio 1.2 Impressions Impression: # Slightly downward trending hemoglobin hematocrit without any evidence of active bleed # Leukocytosis improving # Status post repair of the perforated gastric ulcer ABG Interpretation ABG results: 05/13/24 05/15/24 05/15/24 08:29 15:28 16:03 ABG pH 7.39 7.05 L* D 7.17 L* D ABG pCO2 31 L 63 H D 45 D ABG pO2 78 L 38 L* D 84 D ABG HCO3 19 L 18 L 16 L ABG O2 Saturation 96 59 L 96 ABG Base Excess -5 L -12 L -11 L VBG pH VBG pCO2 VBG pO2 VBG Base Excess 05/16/24 05/17/24 05/18/24 04:38 04:03 04:20 ABG pH 7.28 L D 7.38 D 7.49 H D ABG pCO2 34 D 28 L 30 L ABG pO2 96 85 66 L ABG HCO3 16 L 17 L 23 ABG O2 Saturation 98 97 94 ABG Base Excess -10 L -8 L 0 VBG pH VBG pCO2 VBG pO2 VBG Base Excess 05/19/24 05/20/24 05/21/24 09:05 06:05 22:35 ABG pH 7.30 L D 7.41 D ABG pCO2 49 H D 42 ABG pO2 63 L 63 L ABG HCO3 24 27 H ABG O2 Saturation 91 93 ABG Base Excess -3 2 VBG pH 7.31 L VBG pCO2 50 VBG pO2 39 VBG Base Excess -2 05/26/24 05/29/24 04:17 12:28 ABG pH 7.38 7.42 ABG pCO2 42 35 ABG pO2 81 L 67 L ABG HCO3 25 23 ABG O2 Saturation 97 95 ABG Base Excess 0 -2 VBG pH VBG pCO2 VBG pO2 VBG Base Excess Assessment & Plan A&P Narrative abd abscess, cx neg here since 05/13. so on rx a long time now. usual rx for most things is 7d. left on merrem thru weekend but collection in abd did not grow a likely pathogen, so stopped abx Time Spent With Patient Time: Total time spent is greater than 50% in coordination of care (as documented) at patient's floor/unit and/or counseling patient:
--- NOTE | 2024-05-31 11:08 | ESPR_ITS ---
Documentation for date of: 05/31/24 Subjective Subjective Interval history: Patient seen and and examined at bedside. Was started on high flow last night, weaned off in AM. Received hemodialysis yesterday, had 1.5 L removed. Patient was seen by Speech therapy started on Dysphagia 1- Pureed Diet. Surgery will evaluate output from both SADI drain and accordion drain once patient tolerates p.o. diet. Infectious disease following case, discontinued antibiotics, cultures unremarkable, WBC count trending down. Ordered physical therapy. Will continue to monitor patient. Exam Vital Signs Temp Pulse Resp BP Pulse Ox O2 Del Method O2 Flow Rate 97.2 F 68 15 140/85 H 98 High Flow Nasal Cannula 10 05/31/24 08:00 05/31/24 10:14 05/31/24 10:14 05/31/24 08:49 05/31/24 10:14 05/31/24 08:00 05/31/24 10:14 FiO2 28 05/31/24 10:14 Narrative Exam General: AAOx3, appears to be in some distress HEENT: Moist mucous membranes, conjunctiva clear, EOMI, PERRLA, Cardiovascular: S1, S2, radial pulses +2 bilat, Irregularly irregular rhythm Pulmonary: CTAB bilat no cough, no wheezing mild crackles. GI: Ese present s/p Ex lap, Sadi and accordion drains present, minimal drainage. Extremities: 1+ pitting edema in lower extremities bilaterally, dorsalis pedis pulses +2 bilaterally, feet cold to touch bilat. Skin: No rash Neuro: AAOx3, no focal motor or sensory deficits in the UE or LE bilat Psych: Cooperative Objective Labs 06/06/24 04:46 06/06/24 04:46 Labs: Laboratory Results - last 24 hr 05/30/24 05/30/24 05/30/24 14:43 18:35 23:06 WBC RBC Hgb Hct MCV MCH MCHC RDW Std Deviation Plt Count Neut % (Auto) Lymph % (Auto) Bartholomew % (Auto) Eos % (Auto) Baso % (Auto) Neut # (Auto) Lymph # (Auto) Bartholomew # (Auto) Eos # (Auto) Baso # (Auto) Immature Gran # (Auto) Absolute Nucleated RBC Immature Gran % Nucleated RBC % PT 14.1 H INR 1.3 APTT 39.1 H 65.2 H D Sodium 129 L 133 L Potassium Chloride Carbon Dioxide Anion Gap BUN Creatinine Estim Creat Clear Calc eGFR BUN/Creatinine Ratio Glucose Calculated Osmolality Calcium Corrected Calcium Phosphorus Magnesium Total Bilirubin AST ALT Alkaline Phosphatase Total Protein Albumin Globulin Albumin/Globulin Ratio 05/31/24 05:40 WBC 16.8 H RBC 3.10 L Hgb 8.5 L Hct 25.8 L MCV 83 MCH 27.4 MCHC 32.9 RDW Std Deviation 56.9 H Plt Count 492 H Neut % (Auto) 78 Lymph % (Auto) 8 L Bartholomew % (Auto) 4 Eos % (Auto) 1 Baso % (Auto) 1 Neut # (Auto) 13.1 H Lymph # (Auto) 1.3 Bartholomew # (Auto) 0.7 Eos # (Auto) 0.1 Baso # (Auto) 0.1 Immature Gran # (Auto) 1.48 H Absolute Nucleated RBC 0.09 H Immature Gran % 9 H Nucleated RBC % 1 H PT INR APTT 66.0 H Sodium 130 L Potassium 3.1 L Chloride 94 L Carbon Dioxide 25.1 Anion Gap 11 BUN 34 H Creatinine 3.6 H D Estim Creat Clear Calc 13.0 L eGFR 13 L* BUN/Creatinine Ratio 9 L Glucose 131 H D Calculated Osmolality 270 L Calcium 9.4 Corrected Calcium 9.6 Phosphorus 2.0 L Magnesium 1.7 Total Bilirubin 0.5 AST 12 ALT < 7 L Alkaline Phosphatase 132 H Total Protein 6.8 Albumin 3.7 Globulin 3.1 Albumin/Globulin Ratio 1.2 ABG Interpretation ABG results: 05/13/24 05/15/24 05/15/24 08:29 15:28 16:03 ABG pH 7.39 7.05 L* D 7.17 L* D ABG pCO2 31 L 63 H D 45 D ABG pO2 78 L 38 L* D 84 D ABG HCO3 19 L 18 L 16 L ABG O2 Saturation 96 59 L 96 ABG Base Excess -5 L -12 L -11 L VBG pH VBG pCO2 VBG pO2 VBG Base Excess 05/16/24 05/17/24 05/18/24 04:38 04:03 04:20 ABG pH 7.28 L D 7.38 D 7.49 H D ABG pCO2 34 D 28 L 30 L ABG pO2 96 85 66 L ABG HCO3 16 L 17 L 23 ABG O2 Saturation 98 97 94 ABG Base Excess -10 L -8 L 0 VBG pH VBG pCO2 VBG pO2 VBG Base Excess 05/19/24 05/20/24 05/21/24 09:05 06:05 22:35 ABG pH 7.30 L D 7.41 D ABG pCO2 49 H D 42 ABG pO2 63 L 63 L ABG HCO3 24 27 H ABG O2 Saturation 91 93 ABG Base Excess -3 2 VBG pH 7.31 L VBG pCO2 50 VBG pO2 39 VBG Base Excess -2 05/26/24 05/29/24 04:17 12:28 ABG pH 7.38 7.42 ABG pCO2 42 35 ABG pO2 81 L 67 L ABG HCO3 25 23 ABG O2 Saturation 97 95 ABG Base Excess 0 -2 VBG pH VBG pCO2 VBG pO2 VBG Base Excess Quality Measures Quality Measures VTE prophylaxis (Heparin) Advance care planning discussed with:: patient Assessment & Plan Assessment Current Active Medications: Generic Name Dose Route Start Last Admin Trade Name Freq PRN Reason Stop Dose Admin Albuterol/Ipratropium 3 ml 05/27/24 18:08 05/31/24 02:02 Albuterol/Ipratropium (Duoneb) Rt Jimena 3 Ml Nebu INH 06/26/24 18:07 3 ml Q2HR PRN Administration SHORTNESS OF BREATH OR WHEEZE Amiodarone HCl 200 mg 05/29/24 15:00 05/31/24 08:49 Amiodarone Hcl 200 Mg Tablet PO 06/28/24 14:59 200 mg BID ANGELICA Administration Dextrose 25 ml 05/24/24 15:43 Dextrose 50%-Water Inj 50 Ml Syringe IV 06/23/24 15:42 Q15MIN PRN BG 50-70 responsive npo pt Dextrose 50 ml 05/24/24 15:43 Dextrose 50%-Water Inj 50 Ml Syringe IV 06/23/24 15:42 Q15MIN PRN BG <50 OR BG <70 & pt unresponsive Fentanyl Citrate 30 mcg 05/28/24 10:53 05/31/24 09:42 Fentanyl Cit Inj 50 Mcg/Ml Amp 2ml IVP 05/31/24 13:59 30 mcg Q2HR PRN Administration Pain 7-10 Glucagon 1 mg 05/24/24 15:43 Glucagon Inj 1 Mg Vial IM Q15MIN PRN BG <70, and no IV access Heparin Sodium (Porcine) 2,500 unit 05/17/24 15:52 05/30/24 16:24 Heparin Sod Inj 1000 Unit/Ml Vial 10 Ml INDWELLCAT 05/31/24 15:51 2,500 unit PRN PRN Administration DIALYSIS Heparin Sodium/Dextrose 25,000 unit in 250 mls @ 10.212 mls/hr 05/23/24 18:15 05/31/24 06:35 Heparin In D5w Ivpb IV 06/06/24 18:14 12 units/kg/hr .Q24H ANGELICA 10.212 mls/hr Titration Protocol 12 UNITS/KG/HR Albumin Human 25 gm in 100 mls @ 100 mls/min 05/25/24 10:07 05/30/24 19:13 Albuminar-25 Ivpb IV Infused PRN PRN Infusion DIALYSIS Fat Emulsion-Middle [place] Oil/Soybean Oil 500 mls @ 32 mls/hr 05/27/24 18:00 05/30/24 17:20 Clinopid 20% Iv IV 06/26/24 17:59 32 mls/hr [email or web address]@1800 ANGELICA Administration Potassium Chloride 20 meq/ 2,020 mls @ 20 mls/hr 05/30/24 18:00 05/30/24 18:02 Sodium Acetate 20 meq/ Amino IV 05/31/24 17:59 20 mls/hr Acids [email or web address]@1800 ANGELICA Administration Sodium Acetate 20 meq/ 2,014 mls @ 20 mls/hr 05/31/24 18:00 Magnesium Sulfate 2 gm/ Amino IV 06/01/24 17:59 Acids QDAY@1800 ANGELICA Insulin Glargine 12 unit 05/25/24 09:00 05/31/24 08:49 Insulin Glargine (Lantus) 5 Unit/0.05 Ml (Per 5 Units) SC 06/24/24 08:59 12 unit QDAY ANGELICA Administration Insulin Human Lispro 0 unit 05/24/24 18:00 05/31/24 05:58 Insulin Lispro (Admelog) 1 Unit/0.01 Ml Unit SC 06/23/24 17:59 2 unit Q6HR ANGELICA Administration Protocol Lidocaine 1 patch 05/30/24 09:16 Lidocaine 5% 1 Patch TOP 06/29/24 09:15 DAILY PRN BACK PAIN Midodrine 10 mg 05/30/24 12:00 05/31/24 05:58 Midodrine 5 Mg Tablet PO 06/29/24 11:59 10 mg QID ANGELICA Administration Ondansetron HCl 4 mg 05/13/24 11:58 05/14/24 12:31 Ondansetron Inj 2 Mg/Ml Inj 2 Ml IV 06/12/24 11:57 4 mg Q6H PRN Administration NAUSEA OR VOMITING Protocol Pantoprazole Sodium 40 mg 05/15/24 21:00 05/31/24 08:50 Pantoprazole Inj 40 Mg Vial IVP 06/14/24 20:59 40 mg BID ANGELICA Administration Pharmacy Consult 1 each 05/16/24 10:27 Pharmacy Renal Dose Adjustment 1 Ea XX 06/15/24 10:26 PRN PRN CONSULT Sodium Chloride 3 ml 05/24/24 19:00 Sodium Chloride Rt Jimena 0.9% 3 Ml Nebu INH 06/23/24 18:59 PRN PRN SOLN Timolol Maleate 1 drop 05/28/24 18:15 05/31/24 08:50 Timolol Op Jimena 0.5% 5 Ml Btl BOTH EYES 06/27/24 18:14 1 drop DAILY ANGELICA Administration Plan Assessment: Ms. Castellanos is a 69-year-old female with past medical history significant for hypertension, diabetes and history of gastric ulcers who presented to the ED on 05/13/2024 after she was found unconscious on the floor. Per chart reviewing prior to this unconsciousness patient was having abdominal pain and generalized weakness with diarrhea and shortness of breath for 2 days. Patient was admitted to the hospital for treatment and management of sepsis secondary to pneumonia. Patient was given 1 L normal saline and started on ceftriaxone and azithromycin. patient underwent ex lap surgery for perforated gastric ulcer. Patient remained intubated postop and is upgraded to the ICU. #Perforated gastric ulcer #Pneumoperitoneum #Peritonitis secondary to perforated gastric ulcer #Abdominal Abscess, status post percutaneous drainage #Leukocytosis Patient found to have tender abdomen, rigidity in the epigastrium, chest x-ray showed elevation of hemidiaphragm, CT abdomen showed pneumoperitoneum, concern for perforated viscus, general surgeon Dr. Santana was consulted for emergency laparotomy and possible repair of perforated gastric ulcer. Repeat CT abd/pel on 05/20 revealed Pneumoperitoneum, orogastric tube in the stomach, mild free fluid adjacent to the stomach and anterior to the pancreas. s/p Exploratory laparotomy & repair of perforated gastric ulcer - 05/15. Plan: ?Patient completed antibiotic therapy, Meropenem and fluconazole, discontinued per ID Reccomendations -Pending Abscess Culture ?Pain control Fentanyl 30 mcg every 2 hours as needed ?Continue with TPN -Started on pureed diet, will advance as tolerated #New onset A-fib with RVR -Likely secondary to shock in the setting of abdominal surgery -EKG findings consistent with A-fib -Was on Amiodarone 200 twice daily for new onset Afib, but as she was in AFib with RVR. Plan: ?Cardiology consulted, appreciate recs -Currently on oral amiodarone 200mg ?Continue with heparin drip as patient may need surgical intervention #Acute tubular necrosis #Anuria -2/2 septic shock -Patient has 0 urine production -Baseline Cr appears to be 0.7 Plan: ?Patient underwent HD fluid removal and removed 2.1 L on 05/18 and 1.5 L on 05/19, 2L fluid removed 05/21, 2.5 L fluid removed on 05/22 , 3L fluid removed on 05/23, 3L fluid removed 05/25, 2L removed 05/26, 1 L removed 05/29, 1.5 L removed 05/30. -Received HD yesterday -Started on midodrine 10 mg 4 times daily -Unable to tolerate dialysis today, talk to nephrology, possible another dialysis treatment tomorrow. -Guajardo catheter in place and monitor urine output closely. -Renally dose medications and avoid nephrotoxic agents -repeat labs in am -Nephrology following #Acute Hypoxic Respiratory failure likely multifactorial -2/2 to pulmonary edema in the setting of volume overload 2/2 ATN due to shock leading to oligoanuria versus bibasilar pneumonia -Further complicated by bilateral lung atelectasis in the setting of recent abdominal surgery and sedatives use -Patient was intubated and on mechanical ventilation (05/15) and extubated 05/18/2024, currently saturating 95-97 % on 5 L NC -Duonebs prn #Acute Upper GI bleed - stable -Most likely secondary to perforated gastric ulcer -Patient had a single episode of black tarry stool today-likely setting of recent abdominal surgery -Continue iv Protonix. -Will monitor for alarm signs of active bleeding with melena or hematochezia #Hx of Diabetes Mellitus type II - A1C 6.3 % 05/21/2024 - Hold home glipizide and januvia - Plan: Continue to monitor blood sugars - Insulin sliding scale ordered with lantus 12 units #Hyperlipidemia Plan: -Hold home atorvastatin as patient is npo. Will reinstate as tolerated #Primary Hypertension Holding on resuming home blood pressure medicines at this time #Acute exacerbation of HFpEF -echo 05/16 -estimated EF of 55 to 60%, stage I diastolic dysfunction noted, Moderate to severe posterior MAC -Pt presented with SOB and 2+ edema in LE -elevated BNP from 304 --> 1110 -HD in the setting of anuria -holding guideline directed medical therapy due to shock, will resume when able -Continue dialysis #Acute blood loss anemia, stable 2/2 perforated ulcer- S/P surgical repair Hgb stable 9.6 Hct 28.3 patient received 2 units of PRBC 05/18 due to acutely drop in Hgb below 7. No signs of active bleeding. Plan: -Continue to monitor daily CBC. transfuse for hemoglobin less than 7. # Acute encephalopathy-improving -Likely multifactorial secondary to sepsis versus metabolic versus neurologic versus medication -Patient is awake and alert and follows commands. Patient is able to respond to yes or no questions verbally #Shock - resolved #Hypoosmolar Hyponatremia, resolved #Health Maintenance Disposition: Telemetry DVT prophylaxis: Heparin drip GI prophylaxis:Protonix 40 BID Diet: NPO Lines: Accordion drain, SADI drain, Guajardo CODE STATUS: Full Case discussed with Attending Dr. See. Geovani Mahmodo PGY1 Attending Provider Attestation/Addendum 69-year-old female with multiple comorbidities including hypertension, type 2 diabetes mellitus and previous history of gastric ulcers who presented to the ER on 05/13/2024 after being found unconscious. Subsequently, patient was admitted for sepsis secondary to pneumonia and found to have acute blood loss anemia and subsequently started developing abdominal pain and imaging noted pneumoperitoneum and subsequently underwent emergency exploratory laparotomy and repair of gastric ulcer on 05/15/2024. Throughout the course of hospitalization, patient's course was complicated by intra-abdominal abscesses and cultures positive for Yolie and subsequently underwent drainage and currently on fluconazole. Furthermore, noted to have A-fib with RVR and subsequently transition to amiodarone and anticoagulation. As of now, plan to continue monitoring the patient closely and plan to discontinue drainage when appropriate. Appreciate general surgery input. I reviewed above note and agree with findings and plans. I have also personally examined the patient with medicine team and went over assessment and plan with medical team including corporate communications intern and resident physician.
[2024-05-31 12:47] LABS: Sodium 130 mMol/L (136-145)
[2024-05-31] MEDS: BENZOCAINE/MENTHOL 1 LOZENGE PO (12:54)
[2024-05-31 13:10] LABS: Partial Thromboplastin Time 67.3 Seconds (22.0-36.0)
[2024-05-31 14:53] LABS: HIV (1&2) Antibody Rapid Non-Reactive
--- NOTE | 2024-05-31 17:26 | PD.NEPHPROG ---
Documentation for date of: 05/31/24 Subjective Subjective Interval history: Interval history: Mr. Castellanos is a [id number] with past medical history of prediabetes, CKD, hypertension, history of ulcers who was admitted to [facility] for sepsis secondary to pneumonia and acute metabolic encephalopathy. Patient was BIBA to the ED after being found unconscious on the floor. According to the son on admission patient's daughter found the patient at 3 AM passed out on the floor and unresponsive. Family is unaware along the patient was on the floor. 2 days ago patient started to develop abdominal pain and weakness all over her body associated with some diarrhea and shortness of breath. Patient's abdominal pain comes and goes from right side to left side of the abdomen. ED course patient was hypertensive tachycardic tachypneic and was saturating 92% on 5 L nasal cannula ED labs significant for WBCs 24.3, bicarb 19.6, glucose 259, lactic acid 2.2, BNP 304, troponin 0.09. 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, colonic diverticulosis, Cervical spine CT showed 3 mm radiolucency in C3 vertebral body Chest CTA showed mild aneurysmal dilatation ascending thoracic aorta AP dimension 4.3 cm and pulmonary artery hypertension with moderate vascular congestion Face CT shows no acute facial fracture, Lumbar spine CT shows no acute lumbar fracture severe acquired spinal stenosis L4-L5, Thoracic spine CT showed no acute fracture Brain MRI with MRA showed equally focal restricted diffusion brainstem medullary level significant stenosis of right P1 P2 segment posterior cerebral artery Postadmission, cardiology was consulted on admission because of elevated troponins, suspicion of NSTEMI type II, patient has acute decompensated heart failure per cardiology evaluation, neurology consulted because of patient's acute metabolic encephalopathy and GI was consulted for suspicion of GI bleed. Eventually on 05/15 rapid response was called for worsening chest pain, patient's map was consistently in 70s, was tachycardic tachypneic. CT angiogram showed pneumoperitoneum multiple air droplets adjacent to and within wall of stomach with suspicion of gastric perforation. General surgery was consulted for emergency surgery and patient had exploratory laparotomy with repair of perforated gastric ulcer with an omental patch. Patient was upgraded to ICU postop for further management patient currently on Levophed and vasopressor due to distributive shock, currently sedated and intubated on mechanical ventilation. Nephrology consulted due to concern of ADILSON. 05/16/24: Patient seen at bedside, patient's daughter present at bedside labs reviewed patient's creatinine 3.0, GFR 16 and BUN 60. Patient's baseline GFR more than 60, does report history of chronic kidney disease. Patient's urine output yesterday 820 mL, there is suspicion of acute kidney injury due to patient's underlying distributive shock versus hypovolemic shock, will continue to monitor patient's urine output and renal panel in a.m., plan of care discussed with patient's family at bedside they want to proceed with dialysis if needed. Will continue to monitor patient. 05/20/24: Patient seen at bedside, was downgraded to floors yesterday, was hypotensive overnight, was upgraded to ICU, currently on pressors, agonal breathing noted, will hold dialysis today, patient did receive dialysis yesterday, had about 1.5 L fluid removed. Patient's urine output continues to remain low. Will continue to monitor patient closely. 05/29/2024 patient currently seen and dialysis. She seems to be very sleepy. Did receive a Benadryl last night. Daughter at bedside. Unable to remove any fluid due to hypotension. Will plan for sequential ultrafiltration tomorrow. Spoke to primary team-midodrine was added. Labs, medications reviewed. 05/30/2024 patient currently seen on dialysis. Unable to remove fluid yesterday due to hypotension. Blood pressure still remains on the lower side. Currently on midodrine 4 times a day. Sodium 128. Will do dialysis to correct the sodium. White count tad elevated. 05/31/2023 patient currently seen in medical floor. Feels tired. Next dialysis scheduled for tomorrow. Needs permanent dialysis catheter, outpatient dialysis. Family at bedside. Review of Systems Review of Systems Narrative Review of Systems: Patient more alert and awake today. Denies any chest pain, shortness of breath. Exam Vital Signs Temp Pulse Resp BP Pulse Ox O2 Del Method O2 Flow Rate 36.2 C 85 19 98/57 L 96 High Flow Nasal Cannula 8 05/31/24 12:00 05/31/24 16:00 05/31/24 14:56 05/31/24 12:05/31/24 14:56 05/31/24 12:00 05/31/24 14:56 FiO2 25 05/31/24 14:56 Narrative Exam GENERAL APPEARANCE: Patient currently in telemetry NECK: Neck supple, no JVD or bruit CARDIOVASCULAR: Heart regular, no murmurs LUNGS/CHEST: Few rhonchi noted bilaterally ABDOMEN: S/p bowel surgery with the 2 drains. EXTREMITIES: 1+ edema in the legs SKIN: IJ PermCath MUSCULOSKELETAL: In bed NEUROLOGICAL : More alert and awake Objective Labs 06/02/24 04:44 06/02/24 04:44 Labs: Laboratory Results - last 24 hr 05/30/24 05/30/24 05/31/24 18:35 23:06 05:40 WBC 16.8 H RBC 3.10 L Hgb 8.5 L Hct 25.8 L MCV 83 MCH 27.4 MCHC 32.9 RDW Std Deviation 56.9 H Plt Count 492 H Neut % (Auto) 78 Lymph % (Auto) 8 L [place] % (Auto) 4 Eos % (Auto) 1 Baso % (Auto) 1 Neut # (Auto) 13.1 H Lymph # (Auto) 1.3 [place] # (Auto) 0.7 Eos # (Auto) 0.1 Baso # (Auto) 0.1 Immature Gran # (Auto) 1.48 H Absolute Nucleated RBC 0.09 H Immature Gran % 9 H Nucleated RBC % 1 H APTT 65.2 H D 66.0 H Sodium 129 L 133 L 130 L Potassium 3.1 L Chloride 94 L Carbon Dioxide 25.1 Anion Gap 11 BUN 34 H Creatinine 3.6 H D Estim Creat Clear Calc 13.0 L eGFR 13 L* BUN/Creatinine Ratio 9 L Glucose 131 H D Calculated Osmolality 270 L Calcium 9.4 Corrected Calcium 9.6 Phosphorus 2.0 L Magnesium 1.7 Total Bilirubin 0.5 AST 12 ALT < 7 L Alkaline Phosphatase 132 H Total Protein 6.8 Albumin 3.7 Globulin 3.1 Albumin/Globulin Ratio 1.2 HIV 1&2 Antibody Rapid 05/31/24 12:25 WBC RBC Hgb Hct MCV MCH MCHC RDW Std Deviation Plt Count Neut % (Auto) Lymph % (Auto) [place] % (Auto) Eos % (Auto) Baso % (Auto) Neut # (Auto) Lymph # (Auto) [place] # (Auto) Eos # (Auto) Baso # (Auto) Immature Gran # (Auto) Absolute Nucleated RBC Immature Gran % Nucleated RBC % APTT 67.3 H Sodium 130 L Potassium Chloride Carbon Dioxide Anion Gap BUN Creatinine Estim Creat Clear Calc eGFR BUN/Creatinine Ratio Glucose Calculated Osmolality Calcium Corrected Calcium Phosphorus Magnesium Total Bilirubin AST ALT Alkaline Phosphatase Total Protein Albumin Globulin Albumin/Globulin Ratio HIV 1&2 Antibody Rapid Non-Reactive ABG Interpretation ABG results: 05/13/24 05/15/24 05/15/24 08:29 15:28 16:03 ABG pH 7.39 7.05 L* D 7.17 L* D ABG pCO2 31 L 63 H D 45 D ABG pO2 78 L 38 L* D 84 D ABG HCO3 19 L 18 L 16 L ABG O2 Saturation 96 59 L 96 ABG Base Excess -5 L -12 L -11 L VBG pH VBG pCO2 VBG pO2 VBG Base Excess 05/16/24 05/17/24 05/18/24 04:38 04:03 04:20 ABG pH 7.28 L D 7.38 D 7.49 H D ABG pCO2 34 D 28 L 30 L ABG pO2 96 85 66 L ABG HCO3 16 L 17 L 23 ABG O2 Saturation 98 97 94 ABG Base Excess -10 L -8 L 0 VBG pH VBG pCO2 VBG pO2 VBG Base Excess 05/19/24 05/20/24 05/21/24 09:05 06:05 22:35 ABG pH 7.30 L D 7.41 D ABG pCO2 49 H D 42 ABG pO2 63 L 63 L ABG HCO3 24 27 H ABG O2 Saturation 91 93 ABG Base Excess -3 2 VBG pH 7.31 L VBG pCO2 50 VBG pO2 39 VBG Base Excess -2 05/26/24 05/29/24 04:17 12:28 ABG pH 7.38 7.42 ABG pCO2 42 35 ABG pO2 81 L 67 L ABG HCO3 25 23 ABG O2 Saturation 97 95 ABG Base Excess 0 -2 VBG pH VBG pCO2 VBG pO2 VBG Base Excess Assessment & Plan Additional Assessment & Plan Additional Plan: Mr. Castellanos is a [id number] with past medical history of prediabetes, CKD, hypertension, history of ulcers who was admitted to [facility] for sepsis secondary to pneumonia and acute metabolic encephalopathy. Patient is currently sedated intubated in ICU status post exploratory laparotomy with repair of perforated gastric ulcer with an omental patch. Nephrology consulted for acute kidney injury. #Acute kidney injury #Acute Tubular Necrosis 2/2 shock #Anasarca Patient currently seems to be in ATN probably ischemic from fluctuations in blood pressure and underlying shock- started her on dialysis. Patient was started on TPN with significant fluid overload-next dialysis scheduled for Hyponatremia will be corrected with dialysis. -Renally dose medications -Avoid nephrotoxic agents -Monitor urine output, strict I&O's -Follow renal panel in a.m. Plan discussed with primary team #Metabolic acidosis, resolved #Lactic Acidosis #Acute Encephalopathy #Acute ischemic stroke #Distributive shock #Acute decompensated HF #Elevated Troponin #Hyperlipidemia #Primary Hypertension #Acute Hypoxic Respiratory failure #Pneumoperitoneum #Peritonitis secondary to perforated gastric ulcer #Acute Upper GI bleed #Diabetes Mellitus type II #Acute anemia All above problems per primary team. Prognosis remains guarded.
[2024-05-31] MEDS: SODIUM ACET ADDITIVE IV (18:18)
[2024-05-31] MEDS: [UNRECOGNIZED DRUG - OTHER] IV (18:18)
[2024-05-31] MEDS: MAGNESIUM SULF IV (18:18)
[2024-05-31 18:21] LABS: Sodium 129 mMol/L (136-145)
[2024-05-31] MEDS: Heparin/D5w 25K 250 ML Ivpb 25,000 UNIT/250 ML BAG 10.212 UNIT IV (19:56)
[2024-06-01] VITALS (32 sets, daily range): BP systolic 92–156; BP diastolic 47–104; PULSE 53–113; RESP 15–24; TEMP 36–36.6; O2SAT 96–100; BMI 35.8
[2024-06-01] MEDS: fentaNYL CIT INJ 50 mCg/ML AMP 2ML 30 MCG IVP ×3 (03:27→14:41)
--- NOTE | 2024-06-01 04:30 | XR_ITS ---
Examination: Abdomen AP single view Technique: AP portable supine abdomen, single view Exam date and time: June 01, 2024 0538 hrs. Indications: Abdominal pain and wound dehisced since today, CT examination May 25, 2024 bilobed cystic mass posterior to the stomach Findings: Pigtail drainage catheter in the left upper abdomen Surgical drain traverses the upper abdomen entering from the left Nonobstructive bowel gas pattern, mild air and stool throughout the colon No free air Prominent osteopenia Impression: Nonobstructive bowel gas pattern
[2024-06-01 05:14] LABS: Lactate (Lactic Acid) 0.8 mMol/L (0.4-2.0)
[2024-06-01] MEDS: INSULIN LISPRO (AdmeLOG) 1 UNIT/0.01 ML UNIT SC ×2 (05:22→17:17)
[2024-06-01 05:30] LABS: Basophils # (Auto) 0.1 Thou/mm3 (0.0-0.2); Basophils % (Auto) 1 % (0-2.5); Eosinophils # (Auto) 0.2 Thou/mm3 (0.0-0.5); Eosinophils % (Auto) 1 % (0-10); Hematocrit 25.1 % (36.0-46.0); Immature Granulocytes % (Auto) 9 % (0-0); Immature Granulocytes Auto 1.48 Thou/mm3 (0.00-0.00); Lymphocytes # (Auto) 1.8 Thou/mm3 (1.0-4.8); Lymphocytes % (Auto) 11 % (10-50); Mean Corpuscular HGB Conc 33.1 g/dl (31.0-37.0); Mean Corpuscular Volume 82 fL (80-100); Monocytes # (Auto) 0.8 Thou/mm3 (0.0-0.8); Monocytes % (Auto) 5 % (0-12); Neutrophils # (Auto) 12.5 Thou/mm3 (1.8-7.7); Neutrophils % (Auto) 75 % (37-80); Nucleated Red Blood Cell # 0.11 Thou/mm3 (0.00-0.00); Nucleated Red Blood Cell % 1 /100 WBC (0); Platelet Count 493 Thou/mm3 (140-440); RDW Standard Deviation 55.6 fL (36.4-46.3); Red Blood Count 3.07 Miln/mm3 (4.00-5.20); White Blood Count 16.7 Thou/mm3 (3.6-11.0)
[2024-06-01 07:05] LABS: Hemoglobin 8.3 g/dL (12.0-16.0)
[2024-06-01 07:11] LABS: Alanine Aminotransferase < 7 U/L (10-49); Albumin, Serum 3.3 gm/dL (3.4-4.8); Alkaline Phosphatase 131 U/L (46-116); Anion Gap 11 (7-16); Aspartate Amino Transferase 18 U/L (0-34); BUN/Creatinine Ratio 10 Ratio (12-20); Bilirubin,Total 0.5 mg/dL (0.3-1.2); Blood Urea Nitrogen 44 mg/dL (9-23); Calcium 9.3 mg/dL (8.3-10.6); Calcium (Corrected) 9.9 mg/dL (8.5-10.1); Carbon Dioxide 22.6 mMol/L (20.0-31.0); Chloride 94 mMol/L (98-107); Creatinine (Component) 4.5 mg/dL (0.6-1.3); Estimated Creatinine Clearance 10.2 mL/min (>60); Globulin 3.4 gm/dL (2.3-3.5); Glucose 125 mg/dL (74-106); Magnesium 1.7 mg/dL (1.6-2.6); Osmolality,Calculated 269 (275-295); Potassium 3.8 mMol/L (3.4-5.1); Sodium 128 mMol/L (136-145); Total Protein 6.7 gm/dL (5.7-8.2); eGFR 10 See Note
[2024-06-01 07:15] LABS: INR 1.3 (0.9-1.3); Partial Thromboplastin Time 54.1 Seconds (22.0-36.0)
--- NOTE | 2024-06-01 09:35 | PC.SS ---
Addendum entered by Yolande Montes 06/01/24 15:01: SS followed up with Monie at [facility] who explained dialysis perma cath is still pending and dialysis chair time can be provided when pt is closer to d/c. Original Note: Follow up note: New dialysis with Dr. August at [facility]. Pt is on high flow O2, 8 liters. Pt is still on TPN, IV Heprin, and has BALAJI drain. Pt will return home upon d/c with [facility].
--- NOTE | 2024-06-01 09:49 | PC.NURSE ---
BP not taking on left upper arm. Moved it to the right lower arm, as IV is in the anticubital area.
[2024-06-01] MEDS: TIMOLOL OP SOL 0.5% 5 ML BTL 1 DROP BOTH EYES (10:00)
[2024-06-01] MEDS: EPOETIN ALFA-EPBX INJ 10,000 UNIT/ML VIAL (NON-ESRD) 10000 UNIT SC (11:22)
[2024-06-01] MEDS: CATHFLO (ALTEPLASE) INJ 4 MG, Sterile Water 4.4 ML INDWELLCAT (11:23)
--- NOTE | 2024-06-01 12:23 | PD.RESPRO ---
Documentation for date of: 06/01/24 Subjective Subjective Interval history: Patient seen and examined at bedside. Receiving hemodialysis treatment. Overnight there was concern of wound dehiscence. Discussed with general surgeon per surgery superior aspect of the wound was dehisced after removal of aixa. Surgery will consider removal of SADI and accordion drain today. Otherwise patient condition has improved, currently on dysphagia 1 diet. Continues to have 0 urine output. Will continue to monitor patient. Exam Vital Signs Temp Pulse Resp BP Pulse Ox O2 Del Method O2 Flow Rate 97.7 F 78 18 156/63 H 100 High Flow Nasal Cannula 10 06/01/24 11:31 06/01/24 11:31 06/01/24 11:31 06/01/24 11:31 06/01/24 11:06/01/24 08:00 06/01/24 11:31 FiO2 06/01/24 08:00 Narrative Exam General: AAOx3, appears to be in some distress HEENT: Moist mucous membranes, conjunctiva clear, EOMI, PERRLA, Cardiovascular: S1, S2, radial pulses +2 bilat, Irregularly irregular rhythm Pulmonary: CTAB bilat no cough, no wheezing mild crackles. GI: [place] present s/p Ex lap, Sadi and accordion drains present, minimal drainage. Extremities: 1+ pitting edema in lower extremities bilaterally, dorsalis pedis pulses +2 bilaterally, feet cold to touch bilat. Skin: No rash Neuro: AAOx3, no focal motor or sensory deficits in the UE or LE bilat Psych: Cooperative Objective Labs 06/06/24 04:46 06/06/24 04:46 Labs: Laboratory Results - last 24 hr 05/31/24 05/31/24 06/01/24 12:25 17:51 05:05 WBC 16.7 H RBC 3.07 L Hgb 8.3 L Hct 25.1 L MCV 82 MCH 27.0 MCHC 33.1 RDW Std Deviation 55.6 H Plt Count 493 H Neut % (Auto) 75 Lymph % (Auto) 11 [place] % (Auto) 5 Eos % (Auto) 1 Baso % (Auto) 1 Neut # (Auto) 12.5 H Lymph # (Auto) 1.8 [place] # (Auto) 0.8 Eos # (Auto) 0.2 Baso # (Auto) 0.1 Immature Gran # (Auto) 1.48 H Absolute Nucleated RBC 0.11 H Immature Gran % 9 H Nucleated RBC % 1 H PT 13.0 H INR 1.3 APTT 67.3 H 54.1 H D Sodium 130 L 129 L 128 L Potassium 3.8 D Chloride 94 L Carbon Dioxide 22.6 Anion Gap 11 BUN 44 H Creatinine 4.5 H* D Estim Creat Clear Calc 10.2 L eGFR 10 L* BUN/Creatinine Ratio 10 L Glucose 125 H Calculated Osmolality 269 L Lactic Acid 0.8 Calcium 9.3 Corrected Calcium 9.9 Phosphorus 3.0 Magnesium 1.7 Total Bilirubin 0.5 AST 18 ALT < 7 L Alkaline Phosphatase 131 H Total Protein 6.7 Albumin 3.3 L Globulin 3.4 Albumin/Globulin Ratio 1.0 L HIV 1&2 Antibody Rapid Non-Reactive ABG Interpretation ABG results: 05/13/24 05/15/24 05/15/24 08:29 15:28 16:03 ABG pH 7.39 7.05 L* D 7.17 L* D ABG pCO2 31 L 63 H D 45 D ABG pO2 78 L 38 L* D 84 D ABG HCO3 19 L 18 L 16 L ABG O2 Saturation 96 59 L 96 ABG Base Excess -5 L -12 L -11 L VBG pH VBG pCO2 VBG pO2 VBG Base Excess 05/16/24 05/17/24 05/18/24 04:38 04:03 04:20 ABG pH 7.28 L D 7.38 D 7.49 H D ABG pCO2 34 D 28 L 30 L ABG pO2 96 85 66 L ABG HCO3 16 L 17 L 23 ABG O2 Saturation 98 97 94 ABG Base Excess -10 L -8 L 0 VBG pH VBG pCO2 VBG pO2 VBG Base Excess 05/19/24 05/20/24 05/21/24 09:05 06:05 22:35 ABG pH 7.30 L D 7.41 D ABG pCO2 49 H D 42 ABG pO2 63 L 63 L ABG HCO3 24 27 H ABG O2 Saturation 91 93 ABG Base Excess -3 2 VBG pH 7.31 L VBG pCO2 50 VBG pO2 39 VBG Base Excess -2 05/26/24 05/29/24 04:17 12:28 ABG pH 7.38 7.42 ABG pCO2 42 35 ABG pO2 81 L 67 L ABG HCO3 25 23 ABG O2 Saturation 97 95 ABG Base Excess 0 -2 VBG pH VBG pCO2 VBG pO2 VBG Base Excess Quality Measures Quality Measures VTE prophylaxis (Heparin) Advance care planning discussed with:: patient and child Assessment & Plan Assessment Current Active Medications: Generic Name Dose Route Start Last Admin Trade Name Freq PRN Reason Stop Dose Admin Albuterol/Ipratropium 3 ml 05/27/24 18:08 05/31/24 23:15 Albuterol/Ipratropium (Duoneb) Rt Jimena 3 Ml Nebu INH 06/26/24 18:07 3 ml Q2HR PRN Administration SHORTNESS OF BREATH OR WHEEZE Amiodarone HCl 200 mg 05/29/24 15:00 05/31/24 20:13 Amiodarone Hcl 200 Mg Tablet PO 06/28/24 14:59 200 mg BID ANGELICA Administration Benzocaine 1 lozenge 05/31/24 11:53 05/31/24 12:54 Benzocaine/Menthol 1 Lozenge PO 06/30/24 11:52 1 lozenge Q4HR PRN Administration Sore throat Dextrose 25 ml 05/24/24 15:43 Dextrose 50%-Water Inj 50 Ml Syringe IV 06/23/24 15:42 Q15MIN PRN BG 50-70 responsive npo pt Dextrose 50 ml 05/24/24 15:43 Dextrose 50%-Water Inj 50 Ml Syringe IV 06/23/24 15:42 Q15MIN PRN BG <50 OR BG <70 & pt unresponsive Fentanyl Citrate 30 mcg 05/28/24 10:53 06/01/24 05:31 Fentanyl Cit Inj 50 Mcg/Ml Amp 2ml IVP 06/05/24 11:53 30 mcg Q2HR PRN Administration Pain 7-10 Glucagon 1 mg 05/24/24 15:43 Glucagon Inj 1 Mg Vial IM Q15MIN PRN BG <70, and no IV access Heparin Sodium/Dextrose 25,000 unit in 250 mls @ 10.212 mls/hr 05/23/24 18:15 06/01/24 07:36 Heparin In D5w Ivpb IV 06/06/24 18:14 12 units/kg/hr .Q24H ANGELICA 10.212 mls/hr Titration Protocol 12 UNITS/KG/HR Albumin Human 25 gm in 100 mls @ 100 mls/min 05/25/24 10:07 05/30/24 19:13 Albuminar-25 Ivpb IV Infused PRN PRN Infusion DIALYSIS Fat Emulsion-[place] Oil/Soybean Oil 500 mls @ 32 mls/hr 05/27/24 18:00 05/30/24 17:20 Clinopid 20% Iv IV 06/26/24 17:59 32 mls/hr TuSa@1800 ANGELICA Administration Sodium Acetate 20 meq/ 2,014 mls @ 20 mls/hr 05/31/24 18:00 05/31/24 18:18 Magnesium Sulfate 2 gm/ Amino IV 06/01/24 17:59 20 mls/hr Acids QDAY@1800 ANGELICA Administration Insulin Glargine 12 unit 05/25/24 09:00 05/31/24 08:49 Insulin Glargine (Lantus) 5 Unit/0.05 Ml (Per 5 Units) SC 06/24/24 08:59 12 unit QDAY ANGELICA Administration Insulin Human Lispro 0 unit 05/24/24 18:00 06/01/24 05:22 Insulin Lispro (Admelog) 1 Unit/0.01 Ml Unit SC 06/23/24 17:59 2 unit Q6HR ANGELICA Administration Protocol Lidocaine 1 patch 05/30/24 09:16 Lidocaine 5% 1 Patch TOP 06/29/24 09:15 DAILY PRN BACK PAIN Midodrine 10 mg 05/30/24 12:00 06/01/24 05:23 Midodrine 5 Mg Tablet PO 06/29/24 11:59 Not Given QID [facility] Ondansetron HCl 4 mg 05/13/24 11:58 05/14/24 12:31 Ondansetron Inj 2 Mg/Ml Inj 2 Ml IV 06/12/24 11:57 4 mg Q6H PRN Administration NAUSEA OR VOMITING Protocol Pantoprazole Sodium 40 mg 05/15/24 21:00 05/31/24 20:14 Pantoprazole Inj 40 Mg Vial IVP 06/14/24 20:59 40 mg BID ANGELICA Administration Pharmacy Consult 1 each 05/16/24 10:27 Pharmacy Renal Dose Adjustment 1 Ea XX 06/15/24 10:26 PRN PRN CONSULT Sodium Chloride 3 ml 05/24/24 19:00 Sodium Chloride Rt Jimena 0.9% 3 Ml Nebu INH 06/23/24 18:59 PRN PRN SOLN Timolol Maleate 1 drop 05/28/24 18:15 05/31/24 08:50 Timolol Op Jimena 0.5% 5 Ml Btl BOTH EYES 06/27/24 18:14 1 drop DAILY ANGELICA Administration Plan Assessment: Ms. Castellanos is a 69-year-old female with past medical history significant for hypertension, diabetes and history of gastric ulcers who presented to the ED on 05/13/2024 after she was found unconscious on the floor. Per chart reviewing prior to this unconsciousness patient was having abdominal pain and generalized weakness with diarrhea and shortness of breath for 2 days. Patient was admitted to the hospital for treatment and management of sepsis secondary to pneumonia. Patient was given 1 L normal saline and started on ceftriaxone and azithromycin. patient underwent ex lap surgery for perforated gastric ulcer. Patient remained intubated postop and was upgraded to the ICU. Patient continues to be on dialysis after downgrade, has SADI and accordion drain intact, completed bowel rest, was started on dysphagia 1 diet, surgery following case closely, will continue to monitor. #Perforated gastric ulcer #Pneumoperitoneum #Peritonitis secondary to perforated gastric ulcer #Abdominal Abscess, status post percutaneous drainage #Leukocytosis Patient found to have tender abdomen, rigidity in the epigastrium, chest x-ray showed elevation of hemidiaphragm, CT abdomen showed pneumoperitoneum, concern for perforated viscus, general surgeon Dr. Santana was consulted for emergency laparotomy and possible repair of perforated gastric ulcer. Repeat CT abd/pel on 05/20 revealed Pneumoperitoneum, orogastric tube in the stomach, mild free fluid adjacent to the stomach and anterior to the pancreas. s/p Exploratory laparotomy & repair of perforated gastric ulcer - 05/15. 06/01/24: Overnight there was concern of wound dehiscence. Discussed with general surgeon per surgery superior aspect of the wound was dehisced after removal of aixa.Surgery will consider removal of SADI and accordion drain today. Plan: ?Patient completed antibiotic therapy, Meropenem and fluconazole, discontinued per ID Reccomendations -Pending Abscess Culture ?Pain control Fentanyl 30 mcg every 2 hours as needed ?Continue with TPN -Started on pureed diet, will advance as tolerated #New onset A-fib with RVR -Likely secondary to shock in the setting of abdominal surgery -EKG findings consistent with A-fib -Was on Amiodarone 200 twice daily for new onset Afib, but as she was in AFib with RVR. Plan: ?Cardiology consulted, appreciate recs -Currently on oral amiodarone 200mg ?Continue with heparin drip as patient may need surgical intervention #Acute tubular necrosis #Anuria -2/2 septic shock -Patient has 0 urine production -Baseline Cr appears to be 0.7 Plan: ?Patient underwent HD fluid removal and removed 2.1 L on 05/18 and 1.5 L on 05/19, 2L fluid removed 05/21, 2.5 L fluid removed on 05/22 , 3L fluid removed on 05/23, 3L fluid removed 05/25, 2L removed 05/26, 1 L removed 05/29, 1.5 L removed 05/30. -Scheduled for hemodialysis today -Started on midodrine 10 mg 4 times daily as patient has difficulty tolerating dialysis, blood pressure drops. -Continues to be anuric. -Renally dose medications and avoid nephrotoxic agents -repeat labs in am -Nephrology following #Acute exacerbation of HFpEF # HFpEF EF 55 to 60% -echo 05/16 -estimated EF of 55 to 60%, stage I diastolic dysfunction noted, Moderate to severe posterior MAC -Pt presented with SOB and 2+ edema in LE -elevated BNP from 304 --> 1110 -HD in the setting of anuria -holding guideline directed medical therapy due to shock, will resume when able -Continue dialysis #Acute Hypoxic Respiratory failure likely multifactorial -2/2 to pulmonary edema in the setting of volume overload 2/2 ATN due to shock leading to oligoanuria versus bibasilar pneumonia -Further complicated by bilateral lung atelectasis in the setting of recent abdominal surgery and sedatives use -Patient was intubated and on mechanical ventilation (05/15) and extubated 05/18/2024, currently saturating 95-97 % on 5 L NC -Duonebs prn #Acute Upper GI bleed - stable -Most likely secondary to perforated gastric ulcer -Patient had a single episode of black tarry stool today-likely setting of recent abdominal surgery -Continue iv Protonix. -Will monitor for alarm signs of active bleeding with melena or hematochezia #Hx of Diabetes Mellitus type II - A1C 6.3 % 05/21/2024 - Hold home glipizide and januvia - Plan: Continue to monitor blood sugars - Insulin sliding scale ordered with lantus 12 units #Hyperlipidemia Plan: -Hold home atorvastatin as patient is npo. Will reinstate as tolerated #Primary Hypertension Holding on resuming home blood pressure medicines at this time #Acute blood loss anemia, stable 2/2 perforated ulcer- S/P surgical repair Hgb stable 9.6 Hct 28.3 patient received 2 units of PRBC 05/18 due to acutely drop in Hgb below 7. No signs of active bleeding. Plan: -Continue to monitor daily CBC. transfuse for hemoglobin less than 7. # Acute encephalopathy-improving -Likely multifactorial secondary to sepsis versus metabolic versus neurologic versus medication -Patient is awake and alert and follows commands. Patient is able to respond to yes or no questions verbally #Shock - resolved #Hypoosmolar Hyponatremia, resolved #Health Maintenance Disposition: Telemetry DVT prophylaxis: Heparin drip GI prophylaxis:Protonix 40 BID Diet: Dysphagia 1 diet Lines: Accordion drain, SADI drain, [place] CODE STATUS: Full Case discussed with Attending Dr. See. Geovani Mahmood PGY1 Attending Provider Attestation/Addendum 69-year-old female with multiple comorbidities including hypertension, type 2 diabetes mellitus and previous history of gastric ulcers who presented to the ER on 05/13/2024 after being found unconscious. Subsequently, patient was admitted for sepsis secondary to pneumonia and found to have acute blood loss anemia and subsequently started developing abdominal pain and imaging noted pneumoperitoneum and subsequently underwent emergency exploratory laparotomy and repair of gastric ulcer on 05/15/2024. Throughout the course of hospitalization, patient's course was complicated by intra-abdominal abscesses and cultures positive for Yolie and subsequently underwent drainage and currently on fluconazole. Furthermore, noted to have A-fib with RVR and subsequently transition to amiodarone and anticoagulation. Furthermore, patient creatinine function worsening currently on hemodialysis via a TDC. As of now, plan to continue monitoring the patient closely and plan to discontinue drainage when appropriate. Appreciate general surgery input. I reviewed above note and agree with findings and plans. I have also personally examined the patient with medicine team and went over assessment and plan with medical team including information technology internship and resident physician.
[2024-06-01] MEDS: INSULIN GLARGINE (Lantus) 5 UNIT/0.05 ML (PER 5 UNITS) 12 UNIT SC (12:40)
[2024-06-01] MEDS: AMIODARONE HCL 200 MG TABLET PO ×2 (12:41→21:27)
[2024-06-01] MEDS: MIDODRINE 5 MG TABLET 10 MG PO ×2 (12:42→21:26)
[2024-06-01] MEDS: PANTOPRAZOLE INJ 40 MG VIAL IVP ×2 (12:42→21:28)
--- NOTE | 2024-06-01 14:35 | ESPR_ITS ---
Documentation for date of: 06/01/24 Subjective Subjective Brief History: 69F with HTN, CKDIII, pre DM and known gastric ulcers who was admitted 05/13 after being found down at home. Pt was admitted for encephalopathy and pneumonia, developed anemia for which EGD was planned today however this am had an EN[employer] for tachycardia, hypotension and acute pain; she underwent CT AP showing pneumoperitoneum with air droplets adjacent to the stomach PMH: HTN, CKDIII, preDM, known gastric ulcers on EGD 10/2023 PSHx: None Meds: No antiplt or anticoagulation Allergies: NKDA Narrative: Pt tolerating diet though having minimal appetite, WBC stable at 16, drains no output for the past 3 days, before that the percutaneous drain was having slightly more output than the BALAJI Exam Vital Signs Temp Pulse Resp BP Pulse Ox O2 Del Method O2 Flow Rate 97.4 F 78 18 156/63 H 100 Oxy Mask 6 06/01/24 12:00 06/01/24 12:42 06/01/24 12:20 06/01/24 12:42 06/01/24 12:20 06/01/24 12:00 06/01/24 12:20 FiO2 06/01/24 08:00 Constitutional Constitutional: no acute distress Routine Respiratory Exam Respiratory: Present no resp distress Routine Abdominal Exam Abdominal: Present soft and drain (BALAJI with scant output yellow, percutaneous drain with scant brown output); Absent tenderness or distended Results Results: Laboratory Laboratory results: results reviewed Assessment & Plan Plan 69F with HTN, CKDIII, pre DM and known gastric ulcers who was admitted 05/13 after being found down at home, who developed pneumoperitoneum 05/15 s/p emergent ex lap, repair of gastric perforation, with postop abscess requiring percutaneous drain placement, gradually recovering Will remove BALAJI today CT AP before removing percutaneous drain Will follow up Procedures Procedures Exploratory laparotomy, repair of perforated gastric ulcer
[2024-06-01 15:15] LABS: Partial Thromboplastin Time 79.1 Seconds (22.0-36.0)
--- NOTE | 2024-06-01 17:29 | ESPR_ITS ---
Documentation for date of: 06/01/24 Subjective Subjective Interval history: Hemoglobin hematocrit 8.3 and 25.1 Scanty material in the drain tubes BALAJI is going to be removed today And the other drain tube after CT scan of the abdomen pelvis as per surgery Exam Vital Signs Temp Pulse Resp BP Pulse Ox O2 Del Method O2 Flow Rate 97.6 F 87 17 137/71 H 100 Nasal Cannula 5 06/01/24 16:00 06/01/24 17:16 06/01/24 16:00 06/01/24 17:16 06/01/24 16:00 06/01/24 16:00 06/01/24 16:00 FiO2 25 06/01/24 08:00 Objective Labs 06/01/24 05:05 06/01/24 05:05 Labs: Laboratory Results - last 24 hr 05/31/24 06/01/24 06/01/24 17:51 05:05 14:20 WBC 16.7 H RBC 3.07 L Hgb 8.3 L Hct 25.1 L MCV 82 MCH 27.0 MCHC 33.1 RDW Std Deviation 55.6 H Plt Count 493 H Neut % (Auto) 75 Lymph % (Auto) 11 [place] % (Auto) 5 Eos % (Auto) 1 Baso % (Auto) 1 Neut # (Auto) 12.5 H Lymph # (Auto) 1.8 [place] # (Auto) 0.8 Eos # (Auto) 0.2 Baso # (Auto) 0.1 Immature Gran # (Auto) 1.48 H Absolute Nucleated RBC 0.11 H Immature Gran % 9 H Nucleated RBC % 1 H PT 13.0 H INR 1.3 APTT 54.1 H D 79.1 H D Sodium 129 L 128 L Potassium 3.8 D Chloride 94 L Carbon Dioxide 22.6 Anion Gap 11 BUN 44 H Creatinine 4.5 H* D Estim Creat Clear Calc 10.2 L eGFR 10 L* BUN/Creatinine Ratio 10 L Glucose 125 H Calculated Osmolality 269 L Lactic Acid 0.8 Calcium 9.3 Corrected Calcium 9.9 Phosphorus 3.0 Magnesium 1.7 Total Bilirubin 0.5 AST 18 ALT < 7 L Alkaline Phosphatase 131 H Total Protein 6.7 Albumin 3.3 L Globulin 3.4 Albumin/Globulin Ratio 1.0 L Impressions Impression: # Status post exploratory laparotomy for perforated gastric ulcer # Posthemorrhagic anemia # Renal failure on hemodialysis Continue current management ABG Interpretation ABG results: 05/13/24 05/15/24 05/15/24 08:29 15:28 16:03 ABG pH 7.39 7.05 L* D 7.17 L* D ABG pCO2 31 L 63 H D 45 D ABG pO2 78 L 38 L* D 84 D ABG HCO3 19 L 18 L 16 L ABG O2 Saturation 96 59 L 96 ABG Base Excess -5 L -12 L -11 L VBG pH VBG pCO2 VBG pO2 VBG Base Excess 05/16/24 05/17/24 05/18/24 04:38 04:03 04:20 ABG pH 7.28 L D 7.38 D 7.49 H D ABG pCO2 34 D 28 L 30 L ABG pO2 96 85 66 L ABG HCO3 16 L 17 L 23 ABG O2 Saturation 98 97 94 ABG Base Excess -10 L -8 L 0 VBG pH VBG pCO2 VBG pO2 VBG Base Excess 05/19/24 05/20/24 05/21/24 09:05 06:05 22:35 ABG pH 7.30 L D 7.41 D ABG pCO2 49 H D 42 ABG pO2 63 L 63 L ABG HCO3 24 27 H ABG O2 Saturation 91 93 ABG Base Excess -3 2 VBG pH 7.31 L VBG pCO2 50 VBG pO2 39 VBG Base Excess -2 05/26/24 05/29/24 04:17 12:28 ABG pH 7.38 7.42 ABG pCO2 42 35 ABG pO2 81 L 67 L ABG HCO3 25 23 ABG O2 Saturation 97 95 ABG Base Excess 0 -2 VBG pH VBG pCO2 VBG pO2 VBG Base Excess Assessment & Plan A&P Narrative abd abscess, cx neg here since 05/13. so on rx a long time now. usual rx for most things is 7d. left on merrem thru weekend but collection in abd did not grow a likely pathogen, so stopped abx Time Spent With Patient Time: Total time spent is greater than 50% in coordination of care (as documented) at patient's floor/unit and/or counseling patient:
[2024-06-01] MEDS: SODIUM CHLOR ADDITIVE IV (18:06)
[2024-06-01] MEDS: [UNRECOGNIZED DRUG - OTHER] IV (18:06)
[2024-06-01] MEDS: POT CHL ADDITIVE IV (18:06)
[2024-06-01] MEDS: LIDOCAINE 5% 1 PATCH TOP (19:01)
--- NOTE | 2024-06-01 19:14 | XR_ITS ---
Examination: CT abdomen without intravenous contrast. Coronal 2-D reconstructions. Sagittal 2-D reconstructions. Date and time of exam:June 01, 2024 at 2045 hrs. Comparison 05/25/2024 Indications: Tenderness in the abdomen today, loculated fluid collections posterior to the stomach on CT study May 25, 2024 CTDI: vol (mGy): 12.4 DLP: (mGycm): 476 Technique: Axial images of the abdomen have been obtained, 3 mm slice thickness, without intravenous contrast 2-D sagittal coronal reconstructions Low dose protocols were performed. One or more of the following dose reduction techniques were used; automated exposure control, adjustment of the mA and/or KV according to patient size, use of iterative reconstruction technique. Findings: Pericardial effusion measuring up to 12 mm Mild enlargement cardiac contour with mitral valvular calcification Small left pleural effusion Liver is mildly irregular in contour Distended gallbladder with possible gallbladder wall thickening Left percutaneous drainage tube in proper position with marked decrease in cystic mass posterior to the stomach, current residual 29 x 14 mm No bowel obstruction No hydronephrosis Impression: Marked decrease in size of fluid collections posterior to the stomach More pronounced fluid collection in the left abdomen below the spleen, 8.9 x 6.4 cm, free fluid in the abdomen and pelvis Impression: Marked decrease in size of fluid collection posterior to the stomach, currently 29 x 14 mm, drainage tube in satisfactory position Ascites Loculated ascites versus additional abscess collection in the left abdomen below the spleen, 8.9 x 6.4 cm
--- NOTE | 2024-06-01 19:56 | ESPR_ITS ---
Documentation for date of: 06/01/24 Subjective Subjective Interval history: Interval history: Mr. Castellanos is a [id number] with past medical history of prediabetes, CKD, hypertension, history of ulcers who was admitted to [facility], [place] for sepsis secondary to pneumonia and acute metabolic encephalopathy. Patient was BIBA to the ED after being found unconscious on the floor. According to the son on admission patient's daughter found the patient at 3 AM passed out on the floor and unresponsive. Family is unaware along the patient was on the floor. 2 days ago patient started to develop abdominal pain and weakness all over her body associated with some diarrhea and shortness of breath. Patient's abdominal pain comes and goes from right side to left side of the abdomen. ED course patient was hypertensive tachycardic tachypneic and was saturating 92% on 5 L nasal cannula ED labs significant for WBCs 24.3, bicarb 19.6, glucose 259, lactic acid 2.2, BNP 304, troponin 0.09. 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, colonic diverticulosis, Cervical spine CT showed 3 mm radiolucency in C3 vertebral body Chest CTA showed mild aneurysmal dilatation ascending thoracic aorta AP dimension 4.3 cm and pulmonary artery hypertension with moderate vascular congestion Face CT shows no acute facial fracture, Lumbar spine CT shows no acute lumbar fracture severe acquired spinal stenosis L4-L5, Thoracic spine CT showed no acute fracture Brain MRI with MRA showed equally focal restricted diffusion brainstem medullary level significant stenosis of right P1 P2 segment posterior cerebral artery Postadmission, cardiology was consulted on admission because of elevated troponins, suspicion of NSTEMI type II, patient has acute decompensated heart failure per cardiology evaluation, neurology consulted because of patient's acute metabolic encephalopathy and GI was consulted for suspicion of GI bleed. Eventually on 05/15 rapid response was called for worsening chest pain, patient's map was consistently in 70s, was tachycardic tachypneic. CT angiogram showed pneumoperitoneum multiple air droplets adjacent to and within wall of stomach with suspicion of gastric perforation. General surgery was consulted for emergency surgery and patient had exploratory laparotomy with repair of perforated gastric ulcer with an omental patch. Patient was upgraded to ICU postop for further management patient currently on Levophed and vasopressor due to distributive shock, currently sedated and intubated on mechanical ventilation. Nephrology consulted due to concern of ADILSON. 05/29/2024 patient currently seen and dialysis. She seems to be very sleepy. Did receive a Benadryl last night. Daughter at bedside. Unable to remove any fluid due to hypotension. Will plan for sequential ultrafiltration tomorrow. Spoke to primary team-midodrine was added. Labs, medications reviewed. 05/30/2024 patient currently seen on dialysis. Unable to remove fluid yesterday due to hypotension. Blood pressure still remains on the lower side. Currently on midodrine 4 times a day. Sodium 128. Will do dialysis to correct the sodium. White count tad elevated. 06/01/2023 patient currently seen on dialysis.WBC 16.7, hemoglobin 8.3, platelets 493. Sodium 128, potassium 3.8, BUN 44, creatinine 4.5, calcium 9.9, phosphorus 3, magnesium 1.7, LFTs normal, albumin 3.3, urinalysis shows trace blood abdominal CT showed loculated ascites versus abscess collection in the left abdomen Review of Systems Review of Systems Narrative Review of Systems: Patient bit sleepy today. Arousable. Denies any chest pain, shortness of breath. Exam Vital Signs Temp Pulse Resp BP Pulse Ox O2 Del Method O2 Flow Rate 36.4 C 87 17 137/71 H 100 Nasal Cannula 5 06/01/24 16:00 06/01/24 17:16 06/01/24 16:00 06/01/24 17:16 06/01/24 16:00 06/01/24 16:00 06/01/24 16:00 FiO2 06/01/24 08:00 Narrative Exam GENERAL APPEARANCE: Patient currently in dialysis NECK: Neck supple, no JVD or bruit CARDIOVASCULAR: Heart regular, no murmurs LUNGS/CHEST: Few rhonchi noted bilaterally ABDOMEN: S/p bowel surgery with a drain EXTREMITIES: 1+ edema in the legs SKIN: IJ PermCath MUSCULOSKELETAL: In bed NEUROLOGICAL : Sleepy Objective Labs 06/02/24 04:44 06/02/24 04:44 Labs: Laboratory Results - last 24 hr 06/01/24 06/01/24 05:05 14:20 WBC 16.7 H RBC 3.07 L Hgb 8.3 L Hct 25.1 L MCV 82 MCH 27.0 MCHC 33.1 RDW Std Deviation 55.6 H Plt Count 493 H Neut % (Auto) 75 Lymph % (Auto) 11 [place] % (Auto) 5 Eos % (Auto) 1 Baso % (Auto) 1 Neut # (Auto) 12.5 H Lymph # (Auto) 1.8 [place] # (Auto) 0.8 Eos # (Auto) 0.2 Baso # (Auto) 0.1 Immature Gran # (Auto) 1.48 H Absolute Nucleated RBC 0.11 H Immature Gran % 9 H Nucleated RBC % 1 H PT 13.0 H INR 1.3 APTT 54.1 H D 79.1 H D Sodium 128 L Potassium 3.8 D Chloride 94 L Carbon Dioxide 22.6 Anion Gap 11 BUN 44 H Creatinine 4.5 H* D Estim Creat Clear Calc 10.2 L eGFR 10 L* BUN/Creatinine Ratio 10 L Glucose 125 H Calculated Osmolality 269 L Lactic Acid 0.8 Calcium 9.3 Corrected Calcium 9.9 Phosphorus 3.0 Magnesium 1.7 Total Bilirubin 0.5 AST 18 ALT < 7 L Alkaline Phosphatase 131 H Total Protein 6.7 Albumin 3.3 L Globulin 3.4 Albumin/Globulin Ratio 1.0 L ABG Interpretation ABG results: 05/13/24 05/15/24 05/15/24 08:29 15:28 16:03 ABG pH 7.39 7.05 L* D 7.17 L* D ABG pCO2 31 L 63 H D 45 D ABG pO2 78 L 38 L* D 84 D ABG HCO3 19 L 18 L 16 L ABG O2 Saturation 96 59 L 96 ABG Base Excess -5 L -12 L -11 L VBG pH VBG pCO2 VBG pO2 VBG Base Excess 05/16/24 05/17/24 05/18/24 04:38 04:03 04:20 ABG pH 7.28 L D 7.38 D 7.49 H D ABG pCO2 34 D 28 L 30 L ABG pO2 96 85 66 L ABG HCO3 16 L 17 L 23 ABG O2 Saturation 98 97 94 ABG Base Excess -10 L -8 L 0 VBG pH VBG pCO2 VBG pO2 VBG Base Excess 05/19/24 05/20/24 05/21/24 09:05 06:05 22:35 ABG pH 7.30 L D 7.41 D ABG pCO2 49 H D 42 ABG pO2 63 L 63 L ABG HCO3 24 27 H ABG O2 Saturation 91 93 ABG Base Excess -3 2 VBG pH 7.31 L VBG pCO2 50 VBG pO2 39 VBG Base Excess -2 05/26/24 05/29/24 04:17 12:28 ABG pH 7.38 7.42 ABG pCO2 42 35 ABG pO2 81 L 67 L ABG HCO3 25 23 ABG O2 Saturation 97 95 ABG Base Excess 0 -2 VBG pH VBG pCO2 VBG pO2 VBG Base Excess Assessment & Plan Additional Assessment & Plan Additional Plan: Mr. Castellanos is a [id number] with past medical history of prediabetes, CKD, hypertension, history of ulcers who was admitted to [facility], [place] for sepsis secondary to pneumonia and acute metabolic encephalopathy. Patient is currently sedated intubated in ICU status post exploratory laparotomy with repair of perforated gastric ulcer with an omental patch. Nephrology consulted for acute kidney injury. #Acute kidney injury #Acute Tubular Necrosis 2/2 shock #Anasarca Patient currently seems to be in ATN probably ischemic from fluctuations in blood pressure and underlying shock- started her on dialysis. Patient currently seen on dialysis. Tolerating dialysis without any problems. Hemodialysis for 3 hours, 2K, ultrafiltration 2 L, Epogen 6000, no heparin ordered. Plan of care discussed with the dialysis nurse. Please see dialysis flowsheet for further details. Patient was started on TPN with significant fluid overload-next dialysis scheduled for Wednesday. Hyponatremia will be corrected with dialysis. -Renally dose medications -Avoid nephrotoxic agents -Monitor urine output, strict I&O's -Follow renal panel in a.m. Plan discussed with primary team #Metabolic acidosis, resolved #Lactic Acidosis #Acute Encephalopathy #Acute ischemic stroke #Distributive shock #Acute decompensated HF #Elevated Troponin #Hyperlipidemia #Primary Hypertension #Acute Hypoxic Respiratory failure #Pneumoperitoneum #Peritonitis secondary to perforated gastric ulcer #Acute Upper GI bleed #Diabetes Mellitus type II #Acute anemia All above problems per primary team. Prognosis remains guarded.
[2024-06-01] MEDS: Heparin/D5w 25K 250 ML Ivpb 25,000 UNIT/250 ML BAG 10.212 UNIT IV (21:27)
[2024-06-01] MEDS: FLUCONAZOLE/NS 200 MG IVPB 200 MG/100 ML BAG 100 MG IV (21:29)
[2024-06-01] MEDS: ALBUTEROL/IPRATROPIUM (Duoneb) RT SOL 3 ML NEBU INH (21:43)
[2024-06-01 23:15] LABS: Partial Thromboplastin Time 56.6 Seconds (22.0-36.0)
[2024-06-02] VITALS (22 sets, daily range): BP systolic 88–154; BP diastolic 48–84; PULSE 59–98; RESP 10–22; TEMP 35.9–36.2; O2SAT 97–100; BMI 36.1
[2024-06-02] MEDS: INSULIN LISPRO (AdmeLOG) 1 UNIT/0.01 ML UNIT SC ×2 (00:06→17:34)
[2024-06-02] MEDS: fentaNYL CIT INJ 50 mCg/ML AMP 2ML 30 MCG IVP ×3 (04:48→21:38)
[2024-06-02 05:18] LABS: Basophils # (Auto) 0.1 Thou/mm3 (0.0-0.2); Basophils % (Auto) 1 % (0-2.5); Eosinophils # (Auto) 0.1 Thou/mm3 (0.0-0.5); Eosinophils % (Auto) 1 % (0-10); Hematocrit 25.1 % (36.0-46.0); Immature Granulocytes % (Auto) 10 % (0-0); Immature Granulocytes Auto 1.54 Thou/mm3 (0.00-0.00); Lymphocytes # (Auto) 1.5 Thou/mm3 (1.0-4.8); Lymphocytes % (Auto) 10 % (10-50); Mean Corpuscular HGB Conc 32.7 g/dl (31.0-37.0); Mean Corpuscular Hemoglobin 26.7 pg (25.0-35.0); Mean Corpuscular Volume 82 fL (80-100); Monocytes # (Auto) 0.8 Thou/mm3 (0.0-0.8); Monocytes % (Auto) 6 % (0-12); Neutrophils # (Auto) 10.7 Thou/mm3 (1.8-7.7); Neutrophils % (Auto) 72 % (37-80); Nucleated Red Blood Cell # 0.21 Thou/mm3 (0.00-0.00); Nucleated Red Blood Cell % 1 /100 WBC (0); Platelet Count 444 Thou/mm3 (140-440); RDW Standard Deviation 55.9 fL (36.4-46.3); Red Blood Count 3.07 Miln/mm3 (4.00-5.20); White Blood Count 14.8 Thou/mm3 (3.6-11.0)
[2024-06-02 05:19] LABS: Hemoglobin 8.2 g/dL (12.0-16.0)
[2024-06-02 05:30] LABS: Partial Thromboplastin Time 33.9 Seconds (22.0-36.0)
[2024-06-02] MEDS: MIDODRINE 5 MG TABLET 10 MG PO (05:43)
[2024-06-02 06:14] LABS: Alanine Aminotransferase < 7 U/L (10-49); Albumin, Serum 3.5 gm/dL (3.4-4.8); Alkaline Phosphatase 136 U/L (46-116); Anion Gap 11 (7-16); Aspartate Amino Transferase 16 U/L (0-34); BUN/Creatinine Ratio 9 Ratio (12-20); Bilirubin,Total 0.5 mg/dL (0.3-1.2); Blood Urea Nitrogen 34 mg/dL (9-23); Calcium 9.3 mg/dL (8.3-10.6); Calcium (Corrected) 9.7 mg/dL (8.5-10.1); Carbon Dioxide 24.5 mMol/L (20.0-31.0); Chloride 95 mMol/L (98-107); Creatinine (Component) 3.8 mg/dL (0.6-1.3); Estimated Creatinine Clearance 12.2 mL/min (>60); Globulin 3.4 gm/dL (2.3-3.5); Glucose 99 mg/dL (74-106); Magnesium 1.8 mg/dL (1.6-2.6); Osmolality,Calculated 268 (275-295); Phosphorous 2.9 mg/dL (2.4-5.1); Potassium 3.6 mMol/L (3.4-5.1); Sodium 130 mMol/L (136-145); Total Protein 6.9 gm/dL (5.7-8.2); eGFR 12 See Note
[2024-06-02] MEDS: PANTOPRAZOLE INJ 40 MG VIAL IVP ×2 (08:22→20:23)
[2024-06-02] MEDS: TIMOLOL OP SOL 0.5% 5 ML BTL 1 DROP BOTH EYES (08:23)
--- NOTE | 2024-06-02 08:34 | XR_ITS ---
Examination: CT guided percutaneous placement abscess drainage catheter abscess left lower abdomen CT abdomen without intravenous contrast Date and time of procedure: June 02, 2024 1049 hours INDICATIONS: New abscess collection in the left lower abdomen on CT examination today Informed consent provided. A timeout was completed verifying correct patient, procedure, site and positioning. Technique: Axial 3 mm sections were obtained for localization of the left lower abdomen abscess Appropriate area is marked. The patient's site was prepped and draped in sterile fashion Maximal sterile barrier technique utilized, including hand hygiene Local anesthesia was obtained with 1% lidocaine. Low dose protocols were performed. One or more of the following dose reduction techniques were used; automated exposure control, adjustment of the mA and/or KV according to patient size, use of iterative reconstruction technique. Utilizing CT fluoroscopic guidance 5 Turkish catheter placed in the abscess collection in the left lower abdomen 0.35 wire guide placed through the catheter followed by dilator is evident and 8 Turkish abscess drainage catheter in proper position under fluoroscopic guidance Patient appears in stable condition during this procedure. At completion of the procedure, the patient is in satisfactory condition. Estimated blood loss 2 cc Complete culture and sensitivity report to follow. Impression: Successful CT-guided percutaneous placement abscess drainage catheter in the left lateral abdomen abscess
--- NOTE | 2024-06-02 08:44 | XR_ITS ---
Venous access removal temporary left internal jugular dialysis catheter Permanent tunneled dialysis catheter insertion, percutaneous Fluoroscopy AP chest, portable, 2 views Date and time of procedure: June 02, 2024 1032 hours INDICATIONS: Renal failure patient requiring long-term dialysis with permanent tunneled dialysis catheter Informed consent provided Technique: A timeout was completed verifying correct patient, procedure, site, positioning, and special equipment if applicable. The patient was placed in a dependent position appropriate for dialysis catheter placement based on the vein to be cannulated. The patient'sleft neck was prepped and draped in sterile fashion. Maximum Sterile Barrier Technique used including cap, mask, sterile gown, sterile gloves, and sterile full body drape. 0.35 wire guide is introduced through the temporary dialysis catheter into the IVC Subcutaneous tunnel formed in the upper chest. Permanent tunneled dialysis catheter placed in the subcutaneous tunnel. Dilators were introduced over the J-wire guide. Tunneled dialysis catheter is introduced through a dilator with venous sheath into the superior vena cava under fluoroscopic guidance. The catheter is sutured in place to the skin and a sterile dressing applied. Perfusion to the extremity distal to the point of catheter insertion is checked and found to be adequate Attending radiologist was present for the entire procedure Estimated blood loss2 cc. The patient tolerated the procedure well and there were no complications Impression: Successful venous access removal nontunneled temporary dialysis catheter Successful permanent tunneled dialysis catheter insertion, percutaneous Fluoroscopy 0.3 minute radiation dose 2.71 milligray 2 spot fluoroscopic chest films. AP chest performed at completion procedure demonstrates satisfactory position dialysis catheter. May use dialysis catheter.
--- NOTE | 2024-06-02 09:09 | PD.IDPROG ---
Subjective Subjective Interval history: c albicans in abd noted. so on flucon enterally, suggest rx for another week to 10d Exam Vital Signs Temp Pulse Resp BP Pulse Ox O2 Del Method O2 Flow Rate 97.1 F 84 19 105/54 L 99 Nasal Cannula 4 06/02/24 05:00 06/02/24 05:43 06/02/24 05:00 06/02/24 05:43 06/02/24 05:00 06/02/24 05:00 06/02/24 05:00 FiO2 4 06/01/24 21:43 Narrative Exam unable to see as pt is out of the room for hd access placement per staff Objective - Internal Medicine Labs 06/02/24 04:44 06/02/24 04:44 Labs: Laboratory Results - last 24 hr 06/01/24 06/01/24 06/02/24 14:20 22:10 04:44 WBC 14.8 H RBC 3.07 L Hgb 8.2 L Hct 25.1 L MCV 82 MCH 26.7 MCHC 32.7 RDW Std Deviation 55.9 H Plt Count 444 H D Neut % (Auto) 72 Lymph % (Auto) 10 [place] % (Auto) 6 Eos % (Auto) 1 Baso % (Auto) 1 Neut # (Auto) 10.7 H Lymph # (Auto) 1.5 [place] # (Auto) 0.8 Eos # (Auto) 0.1 Baso # (Auto) 0.1 Immature Gran # (Auto) 1.54 H Absolute Nucleated RBC 0.21 H Immature Gran % 10 H Nucleated RBC % 1 H APTT 79.1 H D 56.6 H D 33.9 D Sodium 130 L Potassium 3.6 Chloride 95 L Carbon Dioxide 24.5 Anion Gap 11 BUN 34 H Creatinine 3.8 H D Estim Creat Clear Calc 12.2 L eGFR 12 L* BUN/Creatinine Ratio 9 L Glucose 99 Calculated Osmolality 268 L Calcium 9.3 Corrected Calcium 9.7 Phosphorus 2.9 Magnesium 1.8 Total Bilirubin 0.5 AST 16 ALT < 7 L Alkaline Phosphatase 136 H Total Protein 6.9 Albumin 3.5 Globulin 3.4 Albumin/Globulin Ratio 1.0 L ABG Interpretation ABG results: 05/13/24 05/15/24 05/15/24 08:29 15:28 16:03 ABG pH 7.39 7.05 L* D 7.17 L* D ABG pCO2 31 L 63 H D 45 D ABG pO2 78 L 38 L* D 84 D ABG HCO3 19 L 18 L 16 L ABG O2 Saturation 96 59 L 96 ABG Base Excess -5 L -12 L -11 L VBG pH VBG pCO2 VBG pO2 VBG Base Excess 05/16/24 05/17/24 05/18/24 04:38 04:03 04:20 ABG pH 7.28 L D 7.38 D 7.49 H D ABG pCO2 34 D 28 L 30 L ABG pO2 96 85 66 L ABG HCO3 16 L 17 L 23 ABG O2 Saturation 98 97 94 ABG Base Excess -10 L -8 L 0 VBG pH VBG pCO2 VBG pO2 VBG Base Excess 05/19/24 05/20/24 05/21/24 09:05 06:05 22:35 ABG pH 7.30 L D 7.41 D ABG pCO2 49 H D 42 ABG pO2 63 L 63 L ABG HCO3 24 27 H ABG O2 Saturation 91 93 ABG Base Excess -3 2 VBG pH 7.31 L VBG pCO2 50 VBG pO2 39 VBG Base Excess -2 05/26/24 05/29/24 04:17 12:28 ABG pH 7.38 7.42 ABG pCO2 42 35 ABG pO2 81 L 67 L ABG HCO3 25 23 ABG O2 Saturation 97 95 ABG Base Excess 0 -2 VBG pH VBG pCO2 VBG pO2 VBG Base Excess Assessment & Plan A&P Narrative abd abscess, stain neg. later grew c albicans so on flucon now here since 05/13.usual rx for most things is 7d. left on merrem thru weekend but collection in abd eventually grew a yeast, so ok for another 7d rx will see again prn Time Spent With Patient Time: Total time spent is greater than 50% in coordination of care (as documented) at patient's floor/unit and/or counseling patient:
--- NOTE | 2024-06-02 10:04 | PC.SS ---
Follow up note: Pt is on 4 liters of O2. Pt still on TP and has BALAJI drain. Patient's dialysis chair time is still pending. Pt will return home upon dc.
--- NOTE | 2024-06-02 10:10 | XR_ITS ---
Examination: CT abdomen and pelvis without contrast. Coronal 3-D reconstructions. Sagittal 2-D reconstructions. Date and time of exam:June 02, 1999 2534 hours INDICATIONS: Post surgery abdominal pain, history pseudocyst/abscess posterior to the stomach on CT examination May 20, 2024 CTDI: vol (mGy): 13.4 DLP: (mGycm): 751 Technique: Axial images of the abdomen have been obtained, 3 mm slice thickness Intravenous contrast material has not been administered. Low dose protocols were performed. One or more of the following dose reduction techniques were used; automated exposure control, adjustment of the mA and/or KV according to patient size, use of iterative reconstruction technique. Findings: Mild left pleural disease No focal liver or splenic lesion Distended gallbladder Minimal residual fluid collection posterior to the stomach, 32 mm No hydronephrosis Fluid collection in the left lower abdomen consistent with abscess, 8 x 6.8 cm Mild free fluid in the pelvis Severe osteopenia IMPRESSION: Fluid collection in the left lower abdomen is confirmed, 8 x 6.8 cm, consistent with abscess
[2024-06-02] MEDS: LIDOCAINE INJ PF 1% 30 ML VIAL 20 ML INFL (10:30)
[2024-06-02] MEDS: HEPARIN SOD LOCK SYR 100 UNIT/ML 500 UNIT INTRACATH (11:30)
[2024-06-02] MEDS: LIDOCAINE INJ PF 1% 5 ML VIAL 20 ML INFL (11:30)
[2024-06-02] MEDS: fentaNYL CIT INJ 50 mCg/ML AMP 2ML 25 MCG IVP (11:57)
[2024-06-02] MEDS: HEPARIN SOD INJ 5000 UNIT/ML VIAL 10 ML INTRACATH (12:50)
--- NOTE | 2024-06-02 13:07 | PD.RESPRO ---
Documentation for date of: 06/02/24 Subjective Subjective Interval history: Doris Castellanos is a [id number] with past medical history of prediabetes, CKD, hypertension, history of ulcers who was admitted for sepsis secondary to pneumonia and acute metabolic encephalopathy. BIBA to ED after being found unconscious on floor. According to son, patient's daughter found patient at 3 AM passed out on floor and unresponsive. Family is unaware how long patient was on floor. Developed right-sided abdominal pain 2 days ago with associated generalized weakness, diarrhea, and shortness of breath. In ED, patient was hypertensive, tachycardic, tachypenic, and saturating at 92% on 5 L NC. Labs showed WBCs 24.3, bicarb 19.6, glucose 259, lactic acid 2.2, BNP 304, troponin 0.09. EKG: tachycardia, NSR. 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 Patient has history of acute decompensated heart failure per cardiology evaluation. Neurology consulted because of patient's acute metabolic encephalopathy and GI was consulted for suspicion of GI bleed. On 05/15, rapid response called for worsening chest pain with MAP consistently in 70s, tachycardia, tachypneia. CT angiogram showed pneumoperitoneum, multiple air droplets adjacent to and within wall of stomach with suspicion of gastric perforation. General surgery was consulted for emergency surgery and patient had ex-lap with repair of perforated gastric ulcer with an omental patch. Patient upgraded to ICU postop for further management. Nephrology consulted due to concern of ADILSON. 05/29: Patient currently seen on dialysis with daughter at bedside. She seems to be very sleepy. Did receive a Benadryl last night. Unable to remove any fluid due to hypotension. Will plan for sequential ultrafiltration tomorrow. Spoke to primary team and midodrine was added. Labs, medications reviewed. 05/30: Patient currently seen on dialysis. Unable to remove fluid yesterday due to hypotension. Blood pressure still remains on the lower side. Currently on midodrine 4 times a day. Sodium 128 and will do dialysis for correction. White count mildly elevated. 06/01: Patient currently seen on dialysis. WBC 16.7, hemoglobin 8.3, platelets 493. Sodium 128, potassium 3.8, BUN 44, creatinine 4.5, calcium 9.9, phosphorus 3, magnesium 1.7, LFTs normal, albumin 3.3. Urinalysis shows trace blood. CT abdomen showed loculated ascites versus abscess collection in the left abdomen. 06/02: Patient seen and examined at bedside in telemetry status-post successful removal of nontunneled temporary dialysis catheter and placement of permanent TDC that is ready for use as well as successful CT-guided percutaneous placement abscess drainage catheter left lateral abdomen. Patient was sleepy given that she is post procedure however she appears to have tolerated well. WBC 14.8, hemoglobin 8.2, platelet 444. Na 130, K 3.6, BUN 34, Cr 3.8, serum osm 268, Phos 2.9, Mg 1.8. Exam Vital Signs Temp Pulse Resp BP Pulse Ox O2 Del Method O2 Flow Rate 96.8 F 83 18 139/74 H 100 Nasal Cannula 4 06/02/24 08:00 06/02/24 11:22 06/02/24 11:22 06/02/24 08:00 06/02/24 11:22 06/02/24 08:00 06/02/24 11:22 FiO2 4 06/01/24 21:43 Narrative Exam General: sleepy status post placement of dialysis catheter and abscess drainage HEENT: NC/AT, mucous membranes moist, bilateral sclera anicteric Cardiovascular: regular rate and rhythm, S1/S2 present, no murmurs appreciated Pulmonary: Mild rhonchi noted Abdominal: Status post abdominal surgery with drainage catheter placed Musculoskeletal: 1+ bilateral lower extremity pitting edema Skin: Recently placed dialysis catheter Objective Labs 06/03/24 08:36 06/03/24 08:36 Labs: Laboratory Results - last 24 hr 06/01/24 06/01/24 06/02/24 14:20 22:10 04:44 WBC 14.8 H RBC 3.07 L Hgb 8.2 L Hct 25.1 L MCV 82 MCH 26.7 MCHC 32.7 RDW Std Deviation 55.9 H Plt Count 444 H D Neut % (Auto) 72 Lymph % (Auto) 10 [place] % (Auto) 6 Eos % (Auto) 1 Baso % (Auto) 1 Neut # (Auto) 10.7 H Lymph # (Auto) 1.5 [place] # (Auto) 0.8 Eos # (Auto) 0.1 Baso # (Auto) 0.1 Immature Gran # (Auto) 1.54 H Absolute Nucleated RBC 0.21 H Immature Gran % 10 H Nucleated RBC % 1 H APTT 79.1 H D 56.6 H D 33.9 D Sodium 130 L Potassium 3.6 Chloride 95 L Carbon Dioxide 24.5 Anion Gap 11 BUN 34 H Creatinine 3.8 H D Estim Creat Clear Calc 12.2 L eGFR 12 L* BUN/Creatinine Ratio 9 L Glucose 99 Calculated Osmolality 268 L Calcium 9.3 Corrected Calcium 9.7 Phosphorus 2.9 Magnesium 1.8 Total Bilirubin 0.5 AST 16 ALT < 7 L Alkaline Phosphatase 136 H Total Protein 6.9 Albumin 3.5 Globulin 3.4 Albumin/Globulin Ratio 1.0 L ABG Interpretation ABG results: 05/13/24 05/15/24 05/15/24 08:29 15:28 16:03 ABG pH 7.39 7.05 L* D 7.17 L* D ABG pCO2 31 L 63 H D 45 D ABG pO2 78 L 38 L* D 84 D ABG HCO3 19 L 18 L 16 L ABG O2 Saturation 96 59 L 96 ABG Base Excess -5 L -12 L -11 L VBG pH VBG pCO2 VBG pO2 VBG Base Excess 05/16/24 05/17/24 05/18/24 04:38 04:03 04:20 ABG pH 7.28 L D 7.38 D 7.49 H D ABG pCO2 34 D 28 L 30 L ABG pO2 96 85 66 L ABG HCO3 16 L 17 L 23 ABG O2 Saturation 98 97 94 ABG Base Excess -10 L -8 L 0 VBG pH VBG pCO2 VBG pO2 VBG Base Excess 05/19/24 05/20/24 05/21/24 09:05 06:05 22:35 ABG pH 7.30 L D 7.41 D ABG pCO2 49 H D 42 ABG pO2 63 L 63 L ABG HCO3 24 27 H ABG O2 Saturation 91 93 ABG Base Excess -3 2 VBG pH 7.31 L VBG pCO2 50 VBG pO2 39 VBG Base Excess -2 05/26/24 05/29/24 04:17 12:28 ABG pH 7.38 7.42 ABG pCO2 42 35 ABG pO2 81 L 67 L ABG HCO3 25 23 ABG O2 Saturation 97 95 ABG Base Excess 0 -2 VBG pH VBG pCO2 VBG pO2 VBG Base Excess Quality Measures Quality Measures VTE prophylaxis (Heparin) Advance care planning discussed with:: patient Assessment & Plan Assessment Current Active Medications: Generic Name Dose Route Start Last Admin Trade Name Freq PRN Reason Stop Dose Admin Albuterol/Ipratropium 3 ml 05/27/24 18:08 06/01/24 21:43 Albuterol/Ipratropium (Duoneb) Rt Jimena 3 Ml Nebu INH 06/26/24 18:07 3 ml Q2HR PRN Administration SHORTNESS OF BREATH OR WHEEZE Amiodarone HCl 200 mg 05/29/24 15:00 06/02/24 08:15 Amiodarone Hcl 200 Mg Tablet PO 06/28/24 14:59 Not Given BID ANGELICA Benzocaine 1 lozenge 05/31/24 11:53 05/31/24 12:54 Benzocaine/Menthol 1 Lozenge PO 06/30/24 11:52 1 lozenge Q4HR PRN Administration Sore throat Dextrose 25 ml 05/24/24 15:43 Dextrose 50%-Water Inj 50 Ml Syringe IV 06/23/24 15:42 Q15MIN PRN BG 50-70 responsive npo pt Dextrose 50 ml 05/24/24 15:43 Dextrose 50%-Water Inj 50 Ml Syringe IV 06/23/24 15:42 Q15MIN PRN BG <50 OR BG <70 & pt unresponsive Fentanyl Citrate 30 mcg 05/28/24 10:53 06/02/24 08:22 Fentanyl Cit Inj 50 Mcg/Ml Amp 2ml IVP 06/05/24 11:53 30 mcg Q2HR PRN Administration Pain 7-10 Fluconazole 400 mg 06/02/24 09:00 06/02/24 08:15 Fluconazole 100 Mg Tablet PO 06/09/24 08:59 Not Given QDAY ANGELICA Glucagon 1 mg 05/24/24 15:43 Glucagon Inj 1 Mg Vial IM Q15MIN PRN BG <70, and no IV access Heparin Sodium/Dextrose 25,000 unit in 250 mls @ 10.212 mls/hr 05/23/24 18:15 06/02/24 00:00 Heparin In D5w Ivpb IV 06/06/24 18:14 0 units/kg/hr .Q24H ANGELICA 0 mls/hr Titration Protocol 12 UNITS/KG/HR Albumin Human 25 gm in 100 mls @ 100 mls/min 05/25/24 10:07 05/30/24 19:13 Albuminar-25 Ivpb IV Infused PRN PRN Infusion DIALYSIS Fat Emulsion-[place] Oil/Soybean Oil 500 mls @ 32 mls/hr 05/27/24 18:00 05/30/24 17:20 Clinopid 20% Iv IV 06/26/24 17:59 32 mls/hr TuSa@1800 ANGELICA Administration Sodium Chloride 20 meq/ 2,017 mls @ 20 mls/hr 06/01/24 18:00 06/01/24 18:06 Potassium Chloride 20 meq/ IV 06/02/24 17:59 20 mls/hr Magnesium Sulfate 1 gm/ Amino QDAY@1800 ANGELICA Administration Acids Insulin Glargine 12 unit 05/25/24 09:00 06/02/24 08:16 Insulin Glargine (Lantus) 5 Unit/0.05 Ml (Per 5 Units) SC 06/24/24 08:59 Not Given QDAY ANGELICA Insulin Human Lispro 0 unit 05/24/24 18:00 06/02/24 05:43 Insulin Lispro (Admelog) 1 Unit/0.01 Ml Unit SC 06/23/24 17:59 Not Given Q6HR [facility] Protocol Lidocaine 1 patch 05/30/24 09:16 06/01/24 19:01 Lidocaine 5% 1 Patch TOP 06/29/24 09:15 1 patch DAILY PRN Administration BACK PAIN Midodrine 10 mg 06/01/24 20:21 06/02/24 05:43 Midodrine 5 Mg Tablet PO 06/29/24 11:59 10 mg QID ANGELICA Administration Ondansetron HCl 4 mg 05/13/24 11:58 05/14/24 12:31 Ondansetron Inj 2 Mg/Ml Inj 2 Ml IV 06/12/24 11:57 4 mg Q6H PRN Administration NAUSEA OR VOMITING Protocol Pantoprazole Sodium 40 mg 05/15/24 21:00 06/02/24 08:22 Pantoprazole Inj 40 Mg Vial IVP 06/14/24 20:59 40 mg BID ANGELICA Administration Pharmacy Consult 1 each 05/16/24 10:27 Pharmacy Renal Dose Adjustment 1 Ea XX 06/15/24 10:26 PRN PRN CONSULT Sodium Chloride 3 ml 05/24/24 19:00 Sodium Chloride Rt Jimena 0.9% 3 Ml Nebu INH 06/23/24 18:59 PRN PRN SOLN Timolol Maleate 1 drop 05/28/24 18:15 06/02/24 08:23 Timolol Op Jimena 0.5% 5 Ml Btl BOTH EYES 06/27/24 18:14 1 drop DAILY ANGELICA Administration Plan Doris Castellanos is a [id number] with past medical history of prediabetes, CKD, hypertension, history of ulcers who was admitted for sepsis secondary to pneumonia and acute metabolic encephalopathy. Hospital course complicated by bowel perforation and is status post emergency ex lap with repair of perforated gastric ulcer with omental patch. Nephrology consulted due to concern of ADILSON. #Acute kidney injury #Acute tubular necrosis 2/2 shock #Anasarca Patient currently seems to be in ATN probably ischemic from fluctuations in blood pressure and underlying shock Patient was started on dialysis on 05/17/2024, and is status post placement of permanent TDC that admitted for use on 06/02 Also status post placement of percutaneous abscess drainage catheter on 06/02 Plan of care discussed with the dialysis nurse, please see dialysis flowsheet for further details Started on TPN with significant fluid overload ? Dialysis planned for tomorrow, 06/03 ? Renally dose medications ? Avoid nephrotoxic agents ? Monitor urine output, strict I&O's #Metabolic acidosis, resolved #Lactic acidosis #Acute encephalopathy #Acute ischemic stroke #Distributive shock #Acute decompensated HF #Elevated troponin #Hyperlipidemia #Primary hypertension #Acute hypoxic respiratory failure #Pneumoperitoneum #Peritonitis secondary to perforated gastric ulcer #Acute upper GI bleed #Type 2 diabete mellitus #Acute anemia ? Continue management per primary team ----- Plan discussed with attending physician Dr. Mata Jessica MD PGY-1 Internal Medicine Attending Provider Attestation/Addendum Patient seen and examined with resident physician Dr. Barth. Note reviewed, agree with findings and recommendations. Next dialysis scheduled for tomorrow.
--- NOTE | 2024-06-02 14:02 | PD.RESPRO ---
Documentation for date of: 06/02/24 Subjective Subjective Interval history: 06/02: No acute overnight events. Patient is seen and examined at bedside this morning patient was complaining of abdominal pain. The accordion drain had less than 20 cc of pus and BALAJI drain was removed yesterday. Patient continues to have no urine output and had 1 bowel movement overnight. on 06/[address] was ordered which showed abscess therefore today patient underwent percutaneous abscess drain catheter placed as well as permanent dialysis cath placed. Leukocytosis is downtrending and acute anemia is stable. Per ID recommendation we will continue fluconazole for additional 7 days since patient abscess culture from 1226 grew Edna albicans. New cultures from today's drainage are sent. Exam Vital Signs Temp Pulse Resp BP Pulse Ox O2 Del Method O2 Flow Rate 97.1 F 79 14 130/80 99 Nasal Cannula 3 06/02/24 13:30 06/02/24 13:49 06/02/24 13:30 06/02/24 13:49 06/02/24 13:30 06/02/24 13:30 06/02/24 13:30 FiO2 4 06/01/24 21:43 Narrative Exam GENERAL: A&Ox3 . Awake, moaning in pain NEURO: no focal neurological deficits HEENT: Atraumatic, Normocephalic. mucous membranes moist. Eyes open, symmetrical, & clear HEART: Normal Heart Sounds LUNGS: clear to auscultation bilaterally, no wheezing, rhonci or crackles ABDOMEN: soft, non-distended, non-tender, bowel sounds heard, no guarding or rebound tenderness, incision site is clean. accordion and percutaneous drains in place SKIN: No Rash or ecchymoses EXTREMITIES: No edema, tenderness, able to move all 4 extremities, pedal pulses palpated Objective Labs 06/06/24 04:46 06/06/24 04:46 Labs: Laboratory Results - last 24 hr 06/01/24 06/01/24 06/02/24 14:20 22:10 04:44 WBC 14.8 H RBC 3.07 L Hgb 8.2 L Hct 25.1 L MCV 82 MCH 26.7 MCHC 32.7 RDW Std Deviation 55.9 H Plt Count 444 H D Neut % (Auto) 72 Lymph % (Auto) 10 [place] % (Auto) 6 Eos % (Auto) 1 Baso % (Auto) 1 Neut # (Auto) 10.7 H Lymph # (Auto) 1.5 [place] # (Auto) 0.8 Eos # (Auto) 0.1 Baso # (Auto) 0.1 Immature Gran # (Auto) 1.54 H Absolute Nucleated RBC 0.21 H Immature Gran % 10 H Nucleated RBC % 1 H APTT 79.1 H D 56.6 H D 33.9 D Sodium 130 L Potassium 3.6 Chloride 95 L Carbon Dioxide 24.5 Anion Gap 11 BUN 34 H Creatinine 3.8 H D Estim Creat Clear Calc 12.2 L eGFR 12 L* BUN/Creatinine Ratio 9 L Glucose 99 Calculated Osmolality 268 L Calcium 9.3 Corrected Calcium 9.7 Phosphorus 2.9 Magnesium 1.8 Total Bilirubin 0.5 AST 16 ALT < 7 L Alkaline Phosphatase 136 H Total Protein 6.9 Albumin 3.5 Globulin 3.4 Albumin/Globulin Ratio 1.0 L ABG Interpretation ABG results: 05/13/24 05/15/24 05/15/24 08:29 15:28 16:03 ABG pH 7.39 7.05 L* D 7.17 L* D ABG pCO2 31 L 63 H D 45 D ABG pO2 78 L 38 L* D 84 D ABG HCO3 19 L 18 L 16 L ABG O2 Saturation 96 59 L 96 ABG Base Excess -5 L -12 L -11 L VBG pH VBG pCO2 VBG pO2 VBG Base Excess 05/16/24 05/17/24 05/18/24 04:38 04:03 04:20 ABG pH 7.28 L D 7.38 D 7.49 H D ABG pCO2 34 D 28 L 30 L ABG pO2 96 85 66 L ABG HCO3 16 L 17 L 23 ABG O2 Saturation 98 97 94 ABG Base Excess -10 L -8 L 0 VBG pH VBG pCO2 VBG pO2 VBG Base Excess 05/19/24 05/20/24 05/21/24 09:05 06:05 22:35 ABG pH 7.30 L D 7.41 D ABG pCO2 49 H D 42 ABG pO2 63 L 63 L ABG HCO3 24 27 H ABG O2 Saturation 91 93 ABG Base Excess -3 2 VBG pH 7.31 L VBG pCO2 50 VBG pO2 39 VBG Base Excess -2 05/26/24 05/29/24 04:17 12:28 ABG pH 7.38 7.42 ABG pCO2 42 35 ABG pO2 81 L 67 L ABG HCO3 25 23 ABG O2 Saturation 97 95 ABG Base Excess 0 -2 VBG pH VBG pCO2 VBG pO2 VBG Base Excess Quality Measures Quality Measures VTE prophylaxis (Heparin) Advance care planning discussed with:: child Assessment & Plan Assessment Current Active Medications: Generic Name Dose Route Start Last Admin Trade Name Freq PRN Reason Stop Dose Admin Albuterol/Ipratropium 3 ml 05/27/24 18:08 06/01/24 21:43 Albuterol/Ipratropium (Duoneb) Rt Jimena 3 Ml Nebu INH 06/26/24 18:07 3 ml Q2HR PRN Administration SHORTNESS OF BREATH OR WHEEZE Amiodarone HCl 200 mg 05/29/24 15:00 06/02/24 08:15 Amiodarone Hcl 200 Mg Tablet PO 06/28/24 14:59 Not Given BID ANGELICA Benzocaine 1 lozenge 05/31/24 11:53 05/31/24 12:54 Benzocaine/Menthol 1 Lozenge PO 06/30/24 11:52 1 lozenge Q4HR PRN Administration Sore throat Dextrose 25 ml 05/24/24 15:43 Dextrose 50%-Water Inj 50 Ml Syringe IV 06/23/24 15:42 Q15MIN PRN BG 50-70 responsive npo pt Dextrose 50 ml 05/24/24 15:43 Dextrose 50%-Water Inj 50 Ml Syringe IV 06/23/24 15:42 Q15MIN PRN BG <50 OR BG <70 & pt unresponsive Fentanyl Citrate 30 mcg 05/28/24 10:53 06/02/24 08:22 Fentanyl Cit Inj 50 Mcg/Ml Amp 2ml IVP 06/05/24 11:53 30 mcg Q2HR PRN Administration Pain 7-10 Fluconazole 400 mg 06/02/24 09:00 06/02/24 08:15 Fluconazole 100 Mg Tablet PO 06/09/24 08:59 Not Given QDAY ANGELICA Glucagon 1 mg 05/24/24 15:43 Glucagon Inj 1 Mg Vial IM Q15MIN PRN BG <70, and no IV access Heparin Sodium/Dextrose 25,000 unit in 250 mls @ 10.212 mls/hr 05/23/24 18:15 06/02/24 00:00 Heparin In D5w Ivpb IV 06/06/24 18:14 0 units/kg/hr .Q24H ANGELICA 0 mls/hr Titration Protocol 12 UNITS/KG/HR Albumin Human 25 gm in 100 mls @ 100 mls/min 05/25/24 10:07 05/30/24 19:13 Albuminar-25 Ivpb IV Infused PRN PRN Infusion DIALYSIS Fat Emulsion-[place] Oil/Soybean Oil 500 mls @ 32 mls/hr 05/27/24 18:00 05/30/24 17:20 Clinopid 20% Iv IV 06/26/24 17:59 32 mls/hr TuSa@1800 ANGELICA Administration Sodium Chloride 20 meq/ 2,017 mls @ 20 mls/hr 06/01/24 18:00 06/01/24 18:06 Potassium Chloride 20 meq/ IV 06/02/24 17:59 20 mls/hr Magnesium Sulfate 1 gm/ Amino QDAY@1800 ANGELICA Administration Acids Insulin Glargine 12 unit 05/25/24 09:00 06/02/24 08:16 Insulin Glargine (Lantus) 5 Unit/0.05 Ml (Per 5 Units) SC 06/24/24 08:59 Not Given QDAY [facility] Insulin Human Lispro 0 unit 05/24/24 18:00 06/02/24 13:53 Insulin Lispro (Admelog) 1 Unit/0.01 Ml Unit SC 06/23/24 17:59 Not Given Q6HR [facility] Protocol Lidocaine 1 patch 05/30/24 09:16 06/01/24 19:01 Lidocaine 5% 1 Patch TOP 06/29/24 09:15 1 patch DAILY PRN Administration BACK PAIN Midodrine 10 mg 06/01/24 20:21 06/02/24 13:49 Midodrine 5 Mg Tablet PO 06/29/24 11:59 Not Given QID ANGELICA Ondansetron HCl 4 mg 05/13/24 11:58 05/14/24 12:31 Ondansetron Inj 2 Mg/Ml Inj 2 Ml IV 06/12/24 11:57 4 mg Q6H PRN Administration NAUSEA OR VOMITING Protocol Pantoprazole Sodium 40 mg 05/15/24 21:00 06/02/24 08:22 Pantoprazole Inj 40 Mg Vial IVP 06/14/24 20:59 40 mg BID ANGELICA Administration Pharmacy Consult 1 each 05/16/24 10:27 Pharmacy Renal Dose Adjustment 1 Ea XX 06/15/24 10:26 PRN PRN CONSULT Sodium Chloride 3 ml 05/24/24 19:00 Sodium Chloride Rt Jimena 0.9% 3 Ml Nebu INH 06/23/24 18:59 PRN PRN SOLN Timolol Maleate 1 drop 05/28/24 18:15 06/02/24 08:23 Timolol Op Jimena 0.5% 5 Ml Btl BOTH EYES 06/27/24 18:14 1 drop DAILY ANGELICA Administration Plan Ms. Castellanos is a 69-year-old female with past medical history significant for hypertension, diabetes and history of gastric ulcers who presented to the ED on 05/13/2024 after she was found unconscious on the floor. Per chart reviewing prior to this unconsciousness patient was having abdominal pain and generalized weakness with diarrhea and shortness of breath for 2 days. Patient was admitted to the hospital for treatment and management of sepsis secondary to pneumonia. Patient was given 1 L normal saline and started on ceftriaxone and azithromycin. patient underwent ex lap surgery for perforated gastric ulcer. Patient remained intubated postop and was upgraded to the ICU. Patient continues to be on dialysis after downgrade, has BALAJI and accordion drain intact, completed bowel rest, was started on dysphagia 1 diet, surgery following case closely, will continue to monitor. #Perforated gastric ulcer #Pneumoperitoneum #Peritonitis secondary to perforated gastric ulcer #Abdominal Abscess, s/p percutaneous drainage x2 #Leukocytosis Patient found to have tender abdomen, rigidity in the epigastrium, chest x-ray showed elevation of hemidiaphragm, CT abdomen showed pneumoperitoneum, concern for perforated viscus, general surgeon Dr. Santana was consulted for emergency laparotomy and possible repair of perforated gastric ulcer. Repeat CT abd/pel on 05/20 revealed Pneumoperitoneum, orogastric tube in the stomach, mild free fluid adjacent to the stomach and anterior to the pancreas. s/p Exploratory laparotomy & repair of perforated gastric ulcer - 05/15. 06/01/24: Overnight there was concern of wound dehiscence. Discussed with general surgeon per surgery superior aspect of the wound was dehiscent after removal of aixa.Surgery removal of BALAJI drain on 06/01. Repeat CT on 06/01- More pronounced fluid collection in the left abdomen below the spleen, 8.9 x 6.4cm, free fluid in the abdomen and pelvis, and Ascites -Abcess culture from 05/25 grew edna albicans Plan: ?Patient completed antibiotic therapy, Meropenem, discontinued per ID Recommendations -continue fluconazole for additional 7 days 06/01- -percutaneous abscess drain catheter placed 06/02 -Pending Abscess Culture from drain 06/02 ?Pain control Fentanyl 30 mcg every 2 hours as needed ?Continue with TPN until Pt. is able to consumed atleast 50% of dysphagia 1 diet -Started on pureed diet, will advance as tolerated #New onset A-fib with RVR -Likely secondary to shock in the setting of abdominal surgery -EKG findings consistent with A-fib -Was on Amiodarone 200 twice daily for new onset Afib, but as she was in AFib with RVR. Plan: ?Cardiology consulted, appreciate recs -Currently on oral amiodarone 200mg ?Continue with heparin drip as patient may need surgical intervention #Acute tubular necrosis #Anuria -2/2 septic shock -Patient has 0 urine production -Baseline Cr appears to be 0.7 Plan: ?Patient underwent HD fluid removal and removed 2.1 L on 05/18 and 1.5 L on 05/19, 2L fluid removed 05/21, 2.5 L fluid removed on 05/22 , 3L fluid removed on 05/23, 3L fluid removed 05/25, 2L removed 05/26, 1 L removed 05/29, 1.5 L removed 05/30, 06/01 2L fluid removed. -permanent hemodialysis cath placed on 06/02/24 -Started on midodrine 10 mg 4 times daily as patient has difficulty tolerating dialysis, blood pressure drops. -Renally dose medications and avoid nephrotoxic agents -repeat labs in am -Nephrology following #Acute exacerbation of HFpEF # HFpEF EF 55 to 60% -echo 05/16 -estimated EF of 55 to 60%, stage I diastolic dysfunction noted, Moderate to severe posterior MAC -Pt presented with SOB and 2+ edema in LE -elevated BNP from 304 --> 1110 -HD in the setting of anuria -holding guideline directed medical therapy due to shock, will resume when able -Continue dialysis #Acute Hypoxic Respiratory failure likely multifactorial -2/2 to pulmonary edema in the setting of volume overload 2/2 ATN due to shock leading to oligoanuria versus bibasilar pneumonia -Further complicated by bilateral lung atelectasis in the setting of recent abdominal surgery and sedatives use -Patient was intubated and on mechanical ventilation (05/15) and extubated 05/18/2024, currently saturating 95-97 % on 5 L NC -Duonebs prn #Acute Upper GI bleed - stable -Most likely secondary to perforated gastric ulcer -Patient had a single episode of black tarry stool today-likely setting of recent abdominal surgery -Continue iv Protonix. -Will monitor for alarm signs of active bleeding with melena or hematochezia #Hx of Diabetes Mellitus type II - A1C 6.3 % 05/21/2024 - Hold home glipizide and januvia - Plan: Continue to monitor blood sugars - Insulin sliding scale ordered with lantus 12 units #Hyperlipidemia Plan: -Hold home atorvastatin as patient is npo. Will reinstate as tolerated #Primary Hypertension Holding on resuming home blood pressure medicines at this time #Acute blood loss anemia, stable 2/2 perforated ulcer- S/P surgical repair Hgb stable 9.6 Hct 28.3 patient received 2 units of PRBC 05/18 due to acutely drop in Hgb below 7. No signs of active bleeding. Plan: -Continue to monitor daily CBC. transfuse for hemoglobin less than 7. # Acute encephalopathy-resolved -Likely multifactorial secondary to sepsis versus metabolic versus neurologic versus medication -Patient is awake and alert and follows commands. Patient is able to respond to yes or no questions verbally #Shock - resolved #Hypoosmolar Hyponatremia, resolved #Health Maintenance Disposition: Telemetry DVT prophylaxis: Heparin drip GI prophylaxis:Protonix 40 BID Diet: Dysphagia 1 diet and TPN Lines: Accordion drains in palce, [place] CODE STATUS: Full Assessment and plan discussed with my senior resident Dr. Quiñonez & attending physician Dr. Esa Rivera (PGY-1)- Internal medicine resident Senior resident attestation: Patient evaluated and examined at the bedside, plan of care discussed with rest of the team including my attending physician, except as noted. Mrs. Wyman is a 69-year-old female, past medical history of hypertension, CKD stage III, prediabetes, no history of gastric ulcers, admitted for encephalopathy and pneumonia complicated by acute GI bleed secondary to perforated gastric ulcer, s/p ex lap and repair of perforated gastric ulcer, was in ICU following surgery, now downgraded to medical floor, hospital course complicated by septic shock leading to ADILSON/ATN requiring hemodialysis, postop abscess requiring percutaneous drain placement and wound dehiscence. #Sepsis?secondary to?Peritonitis secondary to perforated gastric ulcer?resolving #Postop intra-abdominal abscess s/p drainage, likely fungal #Pneumonia?resolved ?Already completed antibiotics more than 7 days including meropenem. ? Noted Edna albicans of abdominal abscess culture, infectious especially Dr Horn following the case, recommended fluconazole for another week to complete 10 days of treatment. ? Repeat CT-guided abdominal abscess drainage ordered 06/02/2024, pending culture sensitivity. ? Currently on TPN for nutritional support as well as dysphagia diet. Plan to wean off TPN as patient is able to tolerate meals. ? Fentanyl 30 mcg for pain. #A-fib RVR #NSTEMI type 2 ? Cardiology following the patient, recommending anticoagulation due to high risk of stroke. ? Continue with amiodarone ? Continue with heparin drip #ATN, likely progressing to ESRD ?Angle Shear Set Up Operator Dr. Auugst following the patient, recommended PermCath placement as patient continues to be anuric. Hemodialysis as per schedule. #Acute toxic encephalopathy?in the setting of sepsis?improving #History of diabetes mellitus ? Continue insulin sliding scale #History of gastric ulcer #Acute blood loss anemia secondary to GI bleed ? Gastroenterology following the patient, appreciate recommendations, on Protonix for GI prophylaxis ? Continue monitoring H&H transfuse for hemoglobin less than 7 Quresh PGY2 Attending Provider Attestation/Addendum 69-year-old female with multiple comorbidities including hypertension, type 2 diabetes mellitus and previous history of gastric ulcers who presented to the ER on 05/13/2024 after being found unconscious. Subsequently, patient was admitted for sepsis secondary to pneumonia and found to have acute blood loss anemia and subsequently started developing abdominal pain and imaging noted pneumoperitoneum and subsequently underwent emergency exploratory laparotomy and repair of gastric ulcer on 05/15/2024. Throughout the course of hospitalization, patient's course was complicated by intra-abdominal abscesses and cultures positive for Edna and subsequently underwent drainage and currently on fluconazole. Furthermore, noted to have A-fib with RVR and subsequently transition to amiodarone and anticoagulation. Furthermore, patient creatinine function worsening currently on hemodialysis via a TDC. As of now, plan to continue monitoring the patient closely and plan to discontinue drainage when appropriate. Appreciate general surgery input. I reviewed above note and agree with findings and plans. I have also personally examined the patient with medicine team and went over assessment and plan with medical team including photo intern and resident physician.
--- NOTE | 2024-06-02 14:35 | PC.SS ---
SS has received call from Darío at [facility] requesting patient's information be faxed because they do not have access to our system. SS has sent inquiry to and dialysis perma cath has been placed. Dialysis chair time is still pending.
[2024-06-02] MEDS: SODIUM CHLOR ADDITIVE IV (17:44)
[2024-06-02] MEDS: [UNRECOGNIZED DRUG - OTHER] IV (17:44)
[2024-06-02] MEDS: POT CHL ADDITIVE IV (17:44)
--- NOTE | 2024-06-02 17:58 | PC.NURSE ---
NEW ORDER TO RESTART HEPARIN DRIP, CALLED HOW MANY UNITS WE START OVER AGAIN,DR AMOS ORDER TO DRAW PTT ALL OVER AGAIN AND BASE FROM PTT RESULT.
--- NOTE | 2024-06-02 18:25 | PD.IMPROG ---
Documentation for date of: 06/02/24 Subjective Subjective Interval history: CT scan of the abdomen pelvis showed 8 cm fluid collection mostly abscess in the left lower abdomen requiring IR drainage Hemoglobin hematocrit 8.2 and 25.1 WBC count is trending downwards BALAJI drain was pulled out yesterday Exam Vital Signs Temp Pulse Resp BP Pulse Ox O2 Del Method O2 Flow Rate 96.9 F 95 17 139/65 H 100 Nasal Cannula 3 06/02/24 16:00 06/02/24 17:33 06/02/24 16:00 06/02/24 17:33 06/02/24 16:00 06/02/24 16:00 06/02/24 16:00 FiO2 4 06/01/24 21:43 Routine Abdominal Exam Comments: Positive bowel sounds somewhat tender Objective Labs 06/02/24 04:44 06/02/24 04:44 Labs: Laboratory Results - last 24 hr 06/01/24 06/02/24 22:10 04:44 WBC 14.8 H RBC 3.07 L Hgb 8.2 L Hct 25.1 L MCV 82 MCH 26.7 MCHC 32.7 RDW Std Deviation 55.9 H Plt Count 444 H D Neut % (Auto) 72 Lymph % (Auto) 10 [place] % (Auto) 6 Eos % (Auto) 1 Baso % (Auto) 1 Neut # (Auto) 10.7 H Lymph # (Auto) 1.5 [place] # (Auto) 0.8 Eos # (Auto) 0.1 Baso # (Auto) 0.1 Immature Gran # (Auto) 1.54 H Absolute Nucleated RBC 0.21 H Immature Gran % 10 H Nucleated RBC % 1 H APTT 56.6 H D 33.9 D Sodium 130 L Potassium 3.6 Chloride 95 L Carbon Dioxide 24.5 Anion Gap 11 BUN 34 H Creatinine 3.8 H D Estim Creat Clear Calc 12.2 L eGFR 12 L* BUN/Creatinine Ratio 9 L Glucose 99 Calculated Osmolality 268 L Calcium 9.3 Corrected Calcium 9.7 Phosphorus 2.9 Magnesium 1.8 Total Bilirubin 0.5 AST 16 ALT < 7 L Alkaline Phosphatase 136 H Total Protein 6.9 Albumin 3.5 Globulin 3.4 Albumin/Globulin Ratio 1.0 L Impressions Impression: # Lower abdominal abscess requiring IR drainage # Gastric ulcer status post exploratory laparotomy omental patch and suturing of the ulcer Continue current management ABG Interpretation ABG results: 05/13/24 05/15/24 05/15/24 08:29 15:28 16:03 ABG pH 7.39 7.05 L* D 7.17 L* D ABG pCO2 31 L 63 H D 45 D ABG pO2 78 L 38 L* D 84 D ABG HCO3 19 L 18 L 16 L ABG O2 Saturation 96 59 L 96 ABG Base Excess -5 L -12 L -11 L VBG pH VBG pCO2 VBG pO2 VBG Base Excess 05/16/24 05/17/24 05/18/24 04:38 04:03 04:20 ABG pH 7.28 L D 7.38 D 7.49 H D ABG pCO2 34 D 28 L 30 L ABG pO2 96 85 66 L ABG HCO3 16 L 17 L 23 ABG O2 Saturation 98 97 94 ABG Base Excess -10 L -8 L 0 VBG pH VBG pCO2 VBG pO2 VBG Base Excess 05/19/24 05/20/24 05/21/24 09:05 06:05 22:35 ABG pH 7.30 L D 7.41 D ABG pCO2 49 H D 42 ABG pO2 63 L 63 L ABG HCO3 24 27 H ABG O2 Saturation 91 93 ABG Base Excess -3 2 VBG pH 7.31 L VBG pCO2 50 VBG pO2 39 VBG Base Excess -2 05/26/24 05/29/24 04:17 12:28 ABG pH 7.38 7.42 ABG pCO2 42 35 ABG pO2 81 L 67 L ABG HCO3 25 23 ABG O2 Saturation 97 95 ABG Base Excess 0 -2 VBG pH VBG pCO2 VBG pO2 VBG Base Excess Assessment & Plan A&P Narrative abd abscess, stain neg. later grew c albicans so on flucon now here since 05/13.usual rx for most things is 7d. left on merrem thru weekend but collection in abd eventually grew a yeast, so ok for another 7d rx will see again prn Time Spent With Patient Time: Total time spent is greater than 50% in coordination of care (as documented) at patient's floor/unit and/or counseling patient:
[2024-06-02] MEDS: Heparin/D5w 25K 250 ML Ivpb 25,000 UNIT/250 ML BAG 9.384 UNIT IV (19:37)
--- NOTE | 2024-06-02 19:48 | PC.NURSE ---
heparin drip started at 1936 on 06/02/23. PTT 36.0.
[2024-06-02] MEDS: AMIODARONE HCL 200 MG TABLET PO (20:23)
--- NOTE | 2024-06-02 21:20 | PC.NURSE ---
okay to give fentanyl 30 mcg ivp to pt per dr Barton. at beside assessing pt.
--- NOTE | 2024-06-02 22:22 | PC.NURSE ---
okay to give fentanyl 30 mcg ivp to pt per dr Barton. at beside assessing pt.
--- NOTE | 2024-06-02 23:18 | PC.NURSE ---
Pt complaining of stomach pain on the surgical site radiating to the right upper back. Pt is not passing gas and had a small BM smear Per daughter report. Dr Barton was made aware. at bedside assessing pt. New orders for pt, see MAR.
--- NOTE | 2024-06-02 23:24 | XR_ITS ---
Examination: Abdomen AP single view Technique: AP portable supine abdomen, single view Exam date and time: June 02, 2024 11:41 PM Indications: Abdominal pain and distention this week Findings: Left-sided upper and lower abdomen drainage tubes noted Nonobstructive bowel gas pattern No ileus or air distended bowel No free air Impression: Nonobstructive bowel gas pattern
[2024-06-02] MEDS: fentaNYL CIT INJ 50 mCg/ML AMP 2ML 40 MCG IVP (23:38)
[2024-06-03] VITALS (28 sets, daily range): BP systolic 92–142; BP diastolic 38–119; PULSE 74–120; RESP 18–24; TEMP 36.1–36.5; O2SAT 96–100; BMI 36.6
[2024-06-03] MEDS: INSULIN LISPRO (AdmeLOG) 1 UNIT/0.01 ML UNIT SC ×2 (00:55→12:12)
[2024-06-03] MEDS: fentaNYL CIT INJ 50 mCg/ML AMP 2ML 40 MCG IVP ×3 (01:38→06:28)
[2024-06-03 02:05] LABS: Partial Thromboplastin Time 54.7 Seconds (22.0-36.0)
[2024-06-03] MEDS: TIMOLOL OP SOL 0.5% 5 ML BTL 1 DROP BOTH EYES (08:42)
[2024-06-03 08:58] LABS: Basophils # (Auto) 0.1 Thou/mm3 (0.0-0.2); Basophils % (Auto) 1 % (0-2.5); Eosinophils # (Auto) 0.1 Thou/mm3 (0.0-0.5); Eosinophils % (Auto) 1 % (0-10); Hematocrit 24.3 % (36.0-46.0); Immature Granulocytes % (Auto) 10 % (0-0); Immature Granulocytes Auto 1.28 Thou/mm3 (0.00-0.00); Lymphocytes # (Auto) 1.7 Thou/mm3 (1.0-4.8); Lymphocytes % (Auto) 12 % (10-50); Mean Corpuscular HGB Conc 32.5 g/dl (31.0-37.0); Mean Corpuscular Volume 83 fL (80-100); Monocytes # (Auto) 0.7 Thou/mm3 (0.0-0.8); Monocytes % (Auto) 5 % (0-12); Neutrophils # (Auto) 9.5 Thou/mm3 (1.8-7.7); Neutrophils % (Auto) 71 % (37-80); Nucleated Red Blood Cell % 1 /100 WBC (0); Platelet Count 420 Thou/mm3 (140-440); RDW Standard Deviation 57.1 fL (36.4-46.3); Red Blood Count 2.93 Miln/mm3 (4.00-5.20); White Blood Count 13.3 Thou/mm3 (3.6-11.0)
[2024-06-03] MEDS: PANTOPRAZOLE INJ 40 MG VIAL IVP ×2 (08:58→20:35)
[2024-06-03 09:08] LABS: Hemoglobin 7.9 g/dL (12.0-16.0)
[2024-06-03 09:24] LABS: Alanine Aminotransferase < 7 U/L (10-49); Albumin, Serum 3.4 gm/dL (3.4-4.8); Alkaline Phosphatase 139 U/L (46-116); Anion Gap 10 (7-16); Aspartate Amino Transferase 16 U/L (0-34); BUN/Creatinine Ratio 8 Ratio (12-20); Bilirubin,Total 0.5 mg/dL (0.3-1.2); Blood Urea Nitrogen 43 mg/dL (9-23); Calcium 9.5 mg/dL (8.3-10.6); Carbon Dioxide 21.6 mMol/L (20.0-31.0); Chloride 96 mMol/L (98-107); Creatinine (Component) 5.1 mg/dL (0.6-1.3); Estimated Creatinine Clearance 9.1 mL/min (>60); Globulin 3.4 gm/dL (2.3-3.5); Glucose 124 mg/dL (74-106); Osmolality,Calculated 268 (275-295); Partial Thromboplastin Time 50.6 Seconds (22.0-36.0); Potassium 3.8 mMol/L (3.4-5.1); Sodium 128 mMol/L (136-145); Total Protein 6.8 gm/dL (5.7-8.2); eGFR 9 See Note
[2024-06-03] MEDS: ALBUTEROL/IPRATROPIUM (Duoneb) RT SOL 3 ML NEBU INH (10:08)
--- NOTE | 2024-06-03 10:27 | ESPR_ITS ---
Documentation for date of: 06/03/24 Subjective Subjective Interval history: Interval history: Mr. Castellanos is a [id number] with past medical history of prediabetes, CKD, hypertension, history of ulcers who was admitted to [facility] for sepsis secondary to pneumonia and acute metabolic encephalopathy. Patient was BIBA to the ED after being found unconscious on the floor. According to the son on admission patient's daughter found the patient at 3 AM passed out on the floor and unresponsive. Family is unaware along the patient was on the floor. 2 days ago patient started to develop abdominal pain and weakness all over her body associated with some diarrhea and shortness of breath. Patient's abdominal pain comes and goes from right side to left side of the abdomen. ED course patient was hypertensive tachycardic tachypneic and was saturating 92% on 5 L nasal cannula ED labs significant for WBCs 24.3, bicarb 19.6, glucose 259, lactic acid 2.2, BNP 304, troponin 0.09. 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, colonic diverticulosis, Cervical spine CT showed 3 mm radiolucency in C3 vertebral body Chest CTA showed mild aneurysmal dilatation ascending thoracic aorta AP dimension 4.3 cm and pulmonary artery hypertension with moderate vascular congestion Face CT shows no acute facial fracture, Lumbar spine CT shows no acute lumbar fracture severe acquired spinal stenosis L4-L5, Thoracic spine CT showed no acute fracture Brain MRI with MRA showed equally focal restricted diffusion brainstem medullary level significant stenosis of right P1 P2 segment posterior cerebral artery Postadmission, cardiology was consulted on admission because of elevated troponins, suspicion of NSTEMI type II, patient has acute decompensated heart failure per cardiology evaluation, neurology consulted because of patient's acute metabolic encephalopathy and GI was consulted for suspicion of GI bleed. Eventually on 05/15 rapid response was called for worsening chest pain, patient's map was consistently in 70s, was tachycardic tachypneic. CT angiogram showed pneumoperitoneum multiple air droplets adjacent to and within wall of stomach with suspicion of gastric perforation. General surgery was consulted for emergency surgery and patient had exploratory laparotomy with repair of perforated gastric ulcer with an omental patch. Patient was upgraded to ICU postop for further management patient currently on Levophed and vasopressor due to distributive shock, currently sedated and intubated on mechanical ventilation. Nephrology consulted due to concern of ADILSON. 05/29/2024 patient currently seen and dialysis. She seems to be very sleepy. Did receive a Benadryl last night. Daughter at bedside. Unable to remove any fluid due to hypotension. Will plan for sequential ultrafiltration tomorrow. Spoke to primary team-midodrine was added. Labs, medications reviewed. 05/30/2024 patient currently seen on dialysis. Unable to remove fluid yesterday due to hypotension. Blood pressure still remains on the lower side. Currently on midodrine 4 times a day. Sodium 128. Will do dialysis to correct the sodium. White count tad elevated. 06/01/2023 patient currently seen on dialysis.WBC 16.7, hemoglobin 8.3, platelets 493. Sodium 128, potassium 3.8, BUN 44, creatinine 4.5, calcium 9.9, phosphorus 3, magnesium 1.7, LFTs normal, albumin 3.3, urinalysis shows trace blood abdominal CT showed loculated ascites versus abscess collection in the left abdomen. 06/03/2023 patient currently seen on dialysis. Complaining of abdominal pain. Labs, medications have been reviewed. Her niece at bedside. WBC 13.3, hemoglobin 7.9 sodium 128, BUN 43, creatinine 5.1, glucose 124, LFTs normal, 1 unit of blood transfusion ordered with dialysis. Review of Systems Review of Systems Narrative Review of Systems: Patient denies any chest pain, shortness of breath. Denies any nausea, vomiting. Does have abdominal pain. Exam Vital Signs Temp Pulse Resp BP Pulse Ox O2 Del Method O2 Flow Rate 36.3 C 120 H 24 H 137/82 H 98 Nasal Cannula 2 06/03/24 08:00 06/03/24 10:08 06/03/24 10:08 06/03/24 08:00 06/03/24 10:08 06/03/24 08:00 06/03/24 10:08 FiO2 4 06/01/24 21:43 Narrative Exam GENERAL APPEARANCE: Patient currently in dialysis NECK: Neck supple, no JVD or bruit CARDIOVASCULAR: Heart regular, no murmurs LUNGS/CHEST: Few rhonchi noted bilaterally ABDOMEN: S/p bowel surgery with a drain EXTREMITIES: 1+ edema in the legs SKIN: IJ PermCath MUSCULOSKELETAL: In bed NEUROLOGICAL : [place] Objective Labs 06/03/24 08:36 06/03/24 08:36 Labs: Laboratory Results - last 24 hr 06/02/24 06/03/24 06/03/24 18:05 01: 08:36 WBC 13.3 H RBC 2.93 L Hgb 7.9 L Hct 24.3 L MCV 83 MCH 27.0 MCHC 32.5 RDW Std Deviation 57.1 H Plt Count 420 Neut % (Auto) 71 Lymph % (Auto) 12 [place] % (Auto) 5 Eos % (Auto) 1 Baso % (Auto) 1 Neut # (Auto) 9.5 H Lymph # (Auto) 1.7 [place] # (Auto) 0.7 Eos # (Auto) 0.1 Baso # (Auto) 0.1 Immature Gran # (Auto) 1.28 H Absolute Nucleated RBC 0.10 H Immature Gran % 10 H Nucleated RBC % 1 H APTT 36.0 54.7 H D 50.6 H Sodium 128 L Potassium 3.8 Chloride 96 L Carbon Dioxide 21.6 Anion Gap 10 BUN 43 H Creatinine 5.1 H* D Estim Creat Clear Calc 9.1 L eGFR 9 L* BUN/Creatinine Ratio 8 L Glucose 124 H Calculated Osmolality 268 L Calcium 9.5 Corrected Calcium 10.0 Total Bilirubin 0.5 AST 16 ALT < 7 L Alkaline Phosphatase 139 H Total Protein 6.8 Albumin 3.4 Globulin 3.4 Albumin/Globulin Ratio 1.0 L ABG Interpretation ABG results: 05/13/24 05/15/24 05/15/24 08:29 15:28 16:03 ABG pH 7.39 7.05 L* D 7.17 L* D ABG pCO2 31 L 63 H D 45 D ABG pO2 78 L 38 L* D 84 D ABG HCO3 19 L 18 L 16 L ABG O2 Saturation 96 59 L 96 ABG Base Excess -5 L -12 L -11 L VBG pH VBG pCO2 VBG pO2 VBG Base Excess 05/16/24 05/17/24 05/18/24 04:38 04:03 04:20 ABG pH 7.28 L D 7.38 D 7.49 H D ABG pCO2 34 D 28 L 30 L ABG pO2 96 85 66 L ABG HCO3 16 L 17 L 23 ABG O2 Saturation 98 97 94 ABG Base Excess -10 L -8 L 0 VBG pH VBG pCO2 VBG pO2 VBG Base Excess 05/19/24 05/20/24 05/21/24 09:05 06:05 22:35 ABG pH 7.30 L D 7.41 D ABG pCO2 49 H D 42 ABG pO2 63 L 63 L ABG HCO3 24 27 H ABG O2 Saturation 91 93 ABG Base Excess -3 2 VBG pH 7.31 L VBG pCO2 50 VBG pO2 39 VBG Base Excess -2 05/26/24 05/29/24 04:17 12:28 ABG pH 7.38 7.42 ABG pCO2 42 35 ABG pO2 81 L 67 L ABG HCO3 25 23 ABG O2 Saturation 97 95 ABG Base Excess 0 -2 VBG pH VBG pCO2 VBG pO2 VBG Base Excess Assessment & Plan Additional Assessment & Plan Additional Plan: Mr. Castellanos is a [id number] with past medical history of prediabetes, CKD, hypertension, history of ulcers who was admitted to [facility] for sepsis secondary to pneumonia and acute metabolic encephalopathy. Patient is currently sedated intubated in ICU status post exploratory laparotomy with repair of perforated gastric ulcer with an omental patch. Nephrology consulted for acute kidney injury. #Acute kidney injury #Acute Tubular Necrosis 2/2 shock #Anasarca Patient currently seems to be in ATN probably ischemic from fluctuations in blood pressure and underlying shock- started her on dialysis. Patient currently seen on dialysis. Tolerating dialysis without any problems. Patient has left IJ PermCath Hemodialysis for 3 hours, 3K, ultrafiltration 2 L, Epogen 6000, no heparin ordered. 1 unit PRBC ordered with dialysis Plan of care discussed with the dialysis nurse. Please see dialysis flowsheet for further details. Patient was started on TPN with significant fluid overload-next dialysis scheduled for Wednesday Hyponatremia will be corrected with dialysis. -Renally dose medications -Avoid nephrotoxic agents -Monitor urine output, strict I&O's -Follow renal panel in a.m. Plan discussed with primary team #Metabolic acidosis, resolved #Lactic Acidosis #Acute Encephalopathy #Acute ischemic stroke #Distributive shock #Acute decompensated HF #Elevated Troponin #Hyperlipidemia #Primary Hypertension #Acute Hypoxic Respiratory failure #Pneumoperitoneum #Peritonitis secondary to perforated gastric ulcer #Acute Upper GI bleed #Diabetes Mellitus type II #Acute anemia All above problems per primary team. Prognosis remains guarded.
[2024-06-03] MEDS: HYDROcodone/APAP 5/325 TABLET 1 TAB PO ×2 (12:12→18:38)
[2024-06-03] MEDS: EPOETIN ALFA-EPBX INJ 10,000 UNIT/ML VIAL (ESRD) 10000 UNIT SC (12:49)
[2024-06-03] MEDS: fentaNYL CIT INJ 50 mCg/ML AMP 2ML 25 MCG IVP ×2 (12:57→20:33)
--- NOTE | 2024-06-03 12:59 | ESPR_ITS ---
Documentation for date of: 06/03/24 Subjective Subjective Brief History: 69F with HTN, CKDIII, pre DM and known gastric ulcers who was admitted 05/13 after being found down at home. Pt was admitted for encephalopathy and pneumonia, developed anemia for which EGD was planned today however this am had an PATHOLOGY TECHNOLOGIST for tachycardia, hypotension and acute pain; she underwent CT AP showing pneumoperitoneum with air droplets adjacent to the stomach PMH: HTN, CKDIII, preDM, known gastric ulcers on EGD 10/2023 PSHx: None Meds: No antiplt or anticoagulation Allergies: NKDA Narrative: Yesterday underwent additional percutaneous drain placement; today WBC 13, pt continuing to report abdominal pain but it is improved with medications and she ate lunch. New drain had 60cc output overnight, previously placed drain 10cc Exam Vital Signs Temp Pulse Resp BP Pulse Ox O2 Del Method O2 Flow Rate 97.5 F 94 20 123/60 97 Nasal Cannula 2 06/03/24 12:00 06/03/24 12:17 06/03/24 12:00 06/03/24 12:17 06/03/24 12:00 06/03/24 12:00 06/03/24 12:00 FiO2 4 06/01/24 21:43 Constitutional Constitutional: no acute distress Routine Respiratory Exam Respiratory: Present no resp distress Routine Abdominal Exam Abdominal: Present soft, wound (midline wound with superficial dehiscence superiorly and inferiorly, wounds packed with gauze. No surrounding erythema or fluctuance) and drain (Left lower drain with yellow output, posterior drain with purulent output); Absent tenderness or distended Results Results: Laboratory Laboratory results: results reviewed Results: Imaging CT scan - abdomen: report reviewed and image reviewed Assessment & Plan Plan 69F with HTN, CKDIII, pre DM and known gastric ulcers who was admitted 05/13 after being found down at home, who developed pneumoperitoneum 05/15 s/p emergent ex lap, repair of gastric perforation, with postop abscess requiring percutaneous drain placement x2, gradually improving Repeat CT when drain output <20cc/24h Procedures Procedures Exploratory laparotomy, repair of perforated gastric ulcer
--- NOTE | 2024-06-03 13:29 | ESPR_ITS ---
Documentation for date of: 06/03/24 Subjective Subjective Interval history: Patient seen at bedside today. Still having significant pain from her abdomen. Does not communicate very well due to fatigue and pain from her overall condition. Changed patient's pain regimen to fentanyl 25 mg every 6 hours as needed for breakthrough pain and scheduled [place] 5 mg every 6 hours for pain regimen. White count continues to improve. Will continue on Diflucan for 1 week. Will await further recommendations from general surgery. Exam Vital Signs Temp Pulse Resp BP Pulse Ox O2 Del Method O2 Flow Rate 97.5 F 94 20 123/60 97 Nasal Cannula 2 06/03/24 12:00 06/03/24 12:17 06/03/24 12:00 06/03/24 12:17 06/03/24 12:00 06/03/24 12:00 06/03/24 12:00 FiO2 4 06/01/24 21:43 Narrative Exam GENERAL: A&Ox3 . Awake, moaning in pain NEURO: no focal neurological deficits HEENT: Atraumatic, Normocephalic. mucous membranes moist. Eyes open, symmetrical, & clear HEART: Normal Heart Sounds LUNGS: clear to auscultation bilaterally, no wheezing, rhonci or crackles ABDOMEN: soft, non-distended, non-tender, bowel sounds heard, no guarding or rebound tenderness, incision site is clean. accordion and percutaneous drains in place SKIN: No Rash or ecchymoses EXTREMITIES: No edema, tenderness, able to move all 4 extremities, pedal pulses palpated Objective Labs 06/06/24 04:46 06/06/24 04:46 Labs: Laboratory Results - last 24 hr 06/02/24 06/03/24 06/03/24 18:05 : 08:36 WBC 13.3 H RBC 2.93 L Hgb 7.9 L Hct 24.3 L MCV 83 MCH 27.0 MCHC 32.5 RDW Std Deviation 57.1 H Plt Count 420 Neut % (Auto) 71 Lymph % (Auto) 12 [place] % (Auto) 5 Eos % (Auto) 1 Baso % (Auto) 1 Neut # (Auto) 9.5 H Lymph # (Auto) 1.7 [place] # (Auto) 0.7 Eos # (Auto) 0.1 Baso # (Auto) 0.1 Immature Gran # (Auto) 1.28 H Absolute Nucleated RBC 0.10 H Immature Gran % 10 H Nucleated RBC % 1 H APTT 36.0 54.7 H D 50.6 H Sodium 128 L Potassium 3.8 Chloride 96 L Carbon Dioxide 21.6 Anion Gap 10 BUN 43 H Creatinine 5.1 H* D Estim Creat Clear Calc 9.1 L eGFR 9 L* BUN/Creatinine Ratio 8 L Glucose 124 H Calculated Osmolality 268 L Calcium 9.5 Corrected Calcium 10.0 Total Bilirubin 0.5 AST 16 ALT < 7 L Alkaline Phosphatase 139 H Total Protein 6.8 Albumin 3.4 Globulin 3.4 Albumin/Globulin Ratio 1.0 L Crossmatch Blood Bank Wristband ID 06/03/24 13:00 WBC RBC Hgb Hct MCV MCH MCHC RDW Std Deviation Plt Count Neut % (Auto) Lymph % (Auto) [place] % (Auto) Eos % (Auto) Baso % (Auto) Neut # (Auto) Lymph # (Auto) [place] # (Auto) Eos # (Auto) Baso # (Auto) Immature Gran # (Auto) Absolute Nucleated RBC Immature Gran % Nucleated RBC % APTT Sodium Potassium Chloride Carbon Dioxide Anion Gap BUN Creatinine Estim Creat Clear Calc eGFR BUN/Creatinine Ratio Glucose Calculated Osmolality Calcium Corrected Calcium Total Bilirubin AST ALT Alkaline Phosphatase Total Protein Albumin Globulin Albumin/Globulin Ratio Crossmatch See Detail Blood Bank Wristband ID Yes ABG Interpretation ABG results: 05/13/24 05/15/24 05/15/24 08:29 15:28 16:03 ABG pH 7.39 7.05 L* D 7.17 L* D ABG pCO2 31 L 63 H D 45 D ABG pO2 78 L 38 L* D 84 D ABG HCO3 19 L 18 L 16 L ABG O2 Saturation 96 59 L 96 ABG Base Excess -5 L -12 L -11 L VBG pH VBG pCO2 VBG pO2 VBG Base Excess 05/16/24 05/17/24 05/18/24 04:38 04:03 04:20 ABG pH 7.28 L D 7.38 D 7.49 H D ABG pCO2 34 D 28 L 30 L ABG pO2 96 85 66 L ABG HCO3 16 L 17 L 23 ABG O2 Saturation 98 97 94 ABG Base Excess -10 L -8 L 0 VBG pH VBG pCO2 VBG pO2 VBG Base Excess 05/19/24 05/20/2424 09:05 06:05 22:35 ABG pH 7.30 L D 7.41 D ABG pCO2 49 H D 42 ABG pO2 63 L 63 L ABG HCO3 24 27 H ABG O2 Saturation 91 93 ABG Base Excess -3 2 VBG pH 7.31 L VBG pCO2 50 VBG pO2 39 VBG Base Excess -2 05/26/24 05/29/24 04:17 12:28 ABG pH 7.38 7.42 ABG pCO2 42 35 ABG pO2 81 L 67 L ABG HCO3 25 23 ABG O2 Saturation 97 95 ABG Base Excess 0 -2 VBG pH VBG pCO2 VBG pO2 VBG Base Excess Quality Measures Quality Measures VTE prophylaxis (Heparin) Advance care planning discussed with:: patient and child Assessment & Plan Assessment Current Active Medications: Generic Name Dose Route Start Last Admin Trade Name Freq PRN Reason Stop Dose Admin Hydrocodone Bitart/Acetaminophen 1 tab 06/03/24 12:00 06/03/24 12:12 Hydrocodone/Apap 5/325 Tablet PO 06/08/24 11:59 1 tab Q6HR ANGELICA Administration Albuterol/Ipratropium 3 ml 05/27/24 18:08 06/03/24 10:08 Albuterol/Ipratropium (Duoneb) Rt Jimena 3 Ml Nebu INH 06/26/24 18:07 3 ml Q2HR PRN Administration SHORTNESS OF BREATH OR WHEEZE Amiodarone HCl 200 mg 05/29/24 15:00 06/03/24 08:59 Amiodarone Hcl 200 Mg Tablet PO 06/28/24 14:59 Not Given BID ANGELICA Benzocaine 1 lozenge 05/31/24 11:53 05/31/24 12:54 Benzocaine/Menthol 1 Lozenge PO 06/30/24 11:52 1 lozenge Q4HR PRN Administration Sore throat Dextrose 25 ml 05/24/24 15:43 Dextrose 50%-Water Inj 50 Ml Syringe IV 06/23/24 15:42 Q15MIN PRN BG 50-70 responsive npo pt Dextrose 50 ml 05/24/24 15:43 Dextrose 50%-Water Inj 50 Ml Syringe IV 06/23/24 15:42 Q15MIN PRN BG <50 OR BG <70 & pt unresponsive Fentanyl Citrate 25 mcg 06/03/24 11:22 06/03/24 12:57 Fentanyl Cit Inj 50 Mcg/Ml Amp 2ml IVP 06/07/24 23:21 25 mcg Q6H PRN Administration Pain 7-10 Fluconazole 400 mg 06/02/24 09:00 06/03/24 08:59 Fluconazole 100 Mg Tablet PO 06/09/24 08:59 Not Given QDAY [facility] Glucagon 1 mg 05/24/24 15:43 Glucagon Inj 1 Mg Vial IM Q15MIN PRN BG <70, and no IV access Albumin Human 25 gm in 100 mls @ 100 mls/min 05/25/24 10:07 05/30/24 19:13 Albuminar-25 Ivpb IV Infused PRN PRN Infusion DIALYSIS Fat Emulsion-[place] Oil/Soybean Oil 500 mls @ 32 mls/hr 05/27/24 18:00 05/30/24 17:20 Clinopid 20% Iv IV 06/26/24 17:59 32 mls/hr [email or web address]@1800 ANGELICA Administration Sodium Chloride 20 meq/ 2,022 mls @ 20 mls/hr 06/02/24 18:00 06/02/24 17:44 Potassium Chloride 30 meq/ IV 06/03/24 17:59 20 mls/hr Magnesium Sulfate 1 gm/ Amino QDAY@1800 ANGELICA Administration Acids Heparin Sodium/Dextrose 25,000 unit in 250 mls @ 9.384 mls/hr 06/02/24 19:15 06/03/24 09:50 Heparin In D5w Ivpb IV 06/06/24 18:14 12 units/kg/hr .Q24H ANGELICA 9.384 mls/hr Titration Protocol 12 UNITS/KG/HR Sodium Chloride 20 meq/ Amino 2,005 mls @ 19.832 mls/hr 06/03/24 18:00 Acids IV 06/04/24 17:59 [id number]@1800 ANGELICA Insulin Glargine 12 unit 05/25/24 09:00 06/03/24 09:02 Insulin Glargine (Lantus) 5 Unit/0.05 Ml (Per 5 Units) SC 06/24/24 08:59 Not Given QDAY [facility] Insulin Human Lispro 0 unit 05/24/24 18:00 06/03/24 12:12 Insulin Lispro (Admelog) 1 Unit/0.01 Ml Unit SC 06/23/24 17:59 2 unit Q6HR ANGELICA Administration Protocol Lidocaine 1 patch 05/30/24 09:16 06/01/24 19:01 Lidocaine 5% 1 Patch TOP 06/29/24 09:15 1 patch DAILY PRN Administration BACK PAIN Midodrine 10 mg 06/01/24 20:21 06/03/24 12:17 Midodrine 5 Mg Tablet PO 06/29/24 11:59 Not Given QID ANGELICA Ondansetron HCl 4 mg 05/13/24 11:58 05/14/24 12:31 Ondansetron Inj 2 Mg/Ml Inj 2 Ml IV 06/12/24 11:57 4 mg Q6H PRN Administration NAUSEA OR VOMITING Protocol Pantoprazole Sodium 40 mg 05/15/24 21:00 06/03/24 08:58 Pantoprazole Inj 40 Mg Vial IVP 06/14/24 20:59 40 mg BID ANGELICA Administration Pharmacy Consult 1 each 05/16/24 10:27 Pharmacy Renal Dose Adjustment 1 Ea XX 06/15/24 10:26 PRN PRN CONSULT Sodium Chloride 3 ml 05/24/24 19:00 Sodium Chloride Rt Jimena 0.9% 3 Ml Nebu INH 06/23/24 18:59 PRN PRN SOLN Timolol Maleate 1 drop 05/28/24 18:15 06/03/24 08:42 Timolol Op Jimena 0.5% 5 Ml Btl BOTH EYES 06/27/24 18:14 1 drop DAILY ANGELICA Administration Plan Ms. Castellanos is a 69-year-old female with past medical history significant for hypertension, diabetes and history of gastric ulcers who presented to the ED on 05/13/2024 after she was found unconscious on the floor. Per chart reviewing prior to this unconsciousness patient was having abdominal pain and generalized weakness with diarrhea and shortness of breath for 2 days. Patient was admitted to the hospital for treatment and management of sepsis secondary to pneumonia. Patient was given 1 L normal saline and started on ceftriaxone and azithromycin. patient underwent ex lap surgery for perforated gastric ulcer. Patient remained intubated postop and was upgraded to the ICU. Patient continues to be on dialysis after downgrade, has BALAJI and accordion drain intact, completed bowel rest, was started on dysphagia 1 diet, surgery following case closely, will continue to monitor. #Perforated gastric ulcer #Pneumoperitoneum #Peritonitis secondary to perforated gastric ulcer #Abdominal Abscess, s/p percutaneous drainage x2 #Leukocytosis Patient found to have tender abdomen, rigidity in the epigastrium, chest x-ray showed elevation of hemidiaphragm, CT abdomen showed pneumoperitoneum, concern for perforated viscus, general surgeon Dr. Santana was consulted for emergency laparotomy and possible repair of perforated gastric ulcer. Repeat CT abd/pel on 05/20 revealed Pneumoperitoneum, orogastric tube in the stomach, mild free fluid adjacent to the stomach and anterior to the pancreas. s/p Exploratory laparotomy & repair of perforated gastric ulcer - 05/15. 06/01/24: Overnight there was concern of wound dehiscence. Discussed with general surgeon per surgery superior aspect of the wound was dehiscent after removal of aixa.Surgery removal of BALAJI drain on 06/01. Repeat CT on 06/01- More pronounced fluid collection in the left abdomen below the spleen, 8.9 x 6.4cm, free fluid in the abdomen and pelvis, and Ascites -Abcess culture from 05/25 grew edna albicans Plan: ?Patient completed antibiotic therapy, Meropenem, discontinued per ID Recommendations -continue fluconazole for additional 7 days 06/01- -percutaneous abscess drain catheter placed 06/02 -Pending Abscess Culture from drain 06/02 ?Pain control Fentanyl 25 mcg every 6 hours as needed. And scheduled [place] 5 mg every 6 hours ?Continue with TPN until Pt. is able to consumed atleast 50% of dysphagia 1 diet -Started on pureed diet, will advance as tolerated ?June 03, 2024: Patient was made n.p.o. by overnight team due to abdominal distention but we resumed her diet and p.o. medications. #New onset A-fib with RVR -Likely secondary to shock in the setting of abdominal surgery -EKG findings consistent with A-fib -Was on Amiodarone 200 twice daily for new onset Afib, but as she was in AFib with RVR. Plan: ?Cardiology consulted, appreciate recs -Currently on oral amiodarone 200mg ?Continue with heparin drip as patient may need surgical intervention #Acute tubular necrosis #Anuria -2/2 septic shock -Patient has 0 urine production -Baseline Cr appears to be 0.7 Plan: ?Patient underwent HD fluid removal and removed 2.1 L on 05/18 and 1.5 L on 12/20, 2L fluid removed 05/21, 2.5 L fluid removed on 05/22 , 3L fluid removed on 05/23, 3L fluid removed 05/25, 2L removed 05/26, 1 L removed 05/29, 1.5 L removed 05/30, 06/01 2L fluid removed. -permanent hemodialysis cath placed on 06/02/24 -Started on midodrine 10 mg 4 times daily as patient has difficulty tolerating dialysis, blood pressure drops. -Renally dose medications and avoid nephrotoxic agents -repeat labs in am -Nephrology following #Acute exacerbation of HFpEF # HFpEF EF 55 to 60% -echo 05/16 -estimated EF of 55 to 60%, stage I diastolic dysfunction noted, Moderate to severe posterior MAC -Pt presented with SOB and 2+ edema in LE -elevated BNP from 304 --> 1110 -HD in the setting of anuria -holding guideline directed medical therapy due to shock, will resume when able -Continue dialysis #Acute Hypoxic Respiratory failure likely multifactorial -2/2 to pulmonary edema in the setting of volume overload 2/2 ATN due to shock leading to oligoanuria versus bibasilar pneumonia -Further complicated by bilateral lung atelectasis in the setting of recent abdominal surgery and sedatives use -Patient was intubated and on mechanical ventilation (05/15) and extubated 05/18/2024, currently saturating 95-97 % on 5 L NC -Duonebs prn #Acute Upper GI bleed - stable -Most likely secondary to perforated gastric ulcer -Patient had a single episode of black tarry stool today-likely setting of recent abdominal surgery -Continue iv Protonix. -Will monitor for alarm signs of active bleeding with melena or hematochezia #Hx of Diabetes Mellitus type II - A1C 6.3 % 05/21/2024 - Hold home glipizide and januvia - Plan: Continue to monitor blood sugars - Insulin sliding scale ordered with lantus 12 units #Hyperlipidemia Plan: -Resume patient's medication #Primary Hypertension Holding on resuming home blood pressure medicines at this time #Acute blood loss anemia, stable 2/2 perforated ulcer- S/P surgical repair Hgb stable 9.6 Hct 28.3 patient received 2 units of PRBC 05/18 due to acutely drop in Hgb below 7. No signs of active bleeding. Plan: -Continue to monitor daily CBC. transfuse for hemoglobin less than 7. # Acute encephalopathy-resolved -Likely multifactorial secondary to sepsis versus metabolic versus neurologic versus medication -Patient is awake and alert and follows commands. Patient is able to respond to yes or no questions verbally #Shock - resolved #Hypoosmolar Hyponatremia, resolved #Health Maintenance Disposition: Telemetry DVT prophylaxis: Heparin drip GI prophylaxis:Protonix 40 BID Diet: Dysphagia 1 diet and TPN Lines: Accordion drains in palce, [place] CODE STATUS: Full Assessment and plan discussed with my attending Dr. Esa Siegel M.D. PGY-3 Attending Provider Attestation/Addendum 69-year-old female with multiple comorbidities including hypertension, type 2 diabetes mellitus and previous history of gastric ulcers who presented to the ER on 05/13/2024 after being found unconscious. Subsequently, patient was admitted for sepsis secondary to pneumonia and found to have acute blood loss anemia and subsequently started developing abdominal pain and imaging noted pneumoperitoneum and subsequently underwent emergency exploratory laparotomy and repair of gastric ulcer on 05/15/2024. Throughout the course of hospitalization, patient's course was complicated by intra-abdominal abscesses and cultures positive for Edna and subsequently underwent drainage and currently on fluconazole. Furthermore, noted to have A-fib with RVR and subsequently transition to amiodarone and anticoagulation. Furthermore, patient creatinine function worsening currently on hemodialysis via a TDC. As of now, plan to continue monitoring the patient closely and plan to discontinue drainage when appropriate. Appreciate general surgery input. I reviewed above note and agree with findings and plans. I have also personally examined the patient with medicine team and went over assessment and plan with medical team including director internal communications and resident physician.
--- NOTE | 2024-06-03 14:41 | PC.NURSE ---
PT TAKEN TO HD VIA BED
[2024-06-03 16:35] LABS: Partial Thromboplastin Time 51.8 Seconds (22.0-36.0)
--- NOTE | 2024-06-03 16:53 | ESPR_ITS ---
Documentation for date of: 06/03/24 Subjective Subjective Interval history: 69 years old female evaluated No signs of any active bleeding but downward trending hemoglobin hematocrit at 7.9 and 24.3 WBC count 13.7 Status postplacement of a percutaneous drainage for the lower abdominal abscess by IR Exam Vital Signs Temp Pulse Resp BP Pulse Ox O2 Del Method O2 Flow Rate 97.5 F 81 20 108/55 L 99 Nasal Cannula 2 06/03/24 16:00 06/03/24 16:45 06/03/24 16:00 06/03/24 16:45 06/03/24 16:00 06/03/24 12:00 06/03/24 16:00 FiO2 4 06/03/24 14:45 Objective Labs 06/03/24 08:36 06/03/24 08:36 Labs: Laboratory Results - last 24 hr 06/02/24 06/03/24 06/03/24 18:05 01: 08:36 WBC 13.3 H RBC 2.93 L Hgb 7.9 L Hct 24.3 L MCV 83 MCH 27.0 MCHC 32.5 RDW Std Deviation 57.1 H Plt Count 420 Neut % (Auto) 71 Lymph % (Auto) 12 [place] % (Auto) 5 Eos % (Auto) 1 Baso % (Auto) 1 Neut # (Auto) 9.5 H Lymph # (Auto) 1.7 [place] # (Auto) 0.7 Eos # (Auto) 0.1 Baso # (Auto) 0.1 Immature Gran # (Auto) 1.28 H Absolute Nucleated RBC 0.10 H Immature Gran % 10 H Nucleated RBC % 1 H APTT 36.0 54.7 H D 50.6 H Sodium 128 L Potassium 3.8 Chloride 96 L Carbon Dioxide 21.6 Anion Gap 10 BUN 43 H Creatinine 5.1 H* D Estim Creat Clear Calc 9.1 L eGFR 9 L* BUN/Creatinine Ratio 8 L Glucose 124 H Calculated Osmolality 268 L Calcium 9.5 Corrected Calcium 10.0 Total Bilirubin 0.5 AST 16 ALT < 7 L Alkaline Phosphatase 139 H Total Protein 6.8 Albumin 3.4 Globulin 3.4 Albumin/Globulin Ratio 1.0 L Blood Type Antibody Screen Crossmatch Blood Bank Wristband ID 06/03/24 06/03/24 13:00 15:28 WBC RBC Hgb Hct MCV MCH MCHC RDW Std Deviation Plt Count Neut % (Auto) Lymph % (Auto) [place] % (Auto) Eos % (Auto) Baso % (Auto) Neut # (Auto) Lymph # (Auto) [place] # (Auto) Eos # (Auto) Baso # (Auto) Immature Gran # (Auto) Absolute Nucleated RBC Immature Gran % Nucleated RBC % APTT 51.8 H Sodium Potassium Chloride Carbon Dioxide Anion Gap BUN Creatinine Estim Creat Clear Calc eGFR BUN/Creatinine Ratio Glucose Calculated Osmolality Calcium Corrected Calcium Total Bilirubin AST ALT Alkaline Phosphatase Total Protein Albumin Globulin Albumin/Globulin Ratio Blood Type O Positive Antibody Screen NEGATIVE Crossmatch See Detail Blood Bank Wristband ID Yes Impressions Impression: # Lower abdominal abscess/fluid collection status post IR drainage # Exploratory laparotomy for perforated gastric ulcer # Downward trending hemoglobin but no signs of any active bleeding Continue current management ABG Interpretation ABG results: 05/13/24 05/15/24 05/15/24 08:29 15:28 16:03 ABG pH 7.39 7.05 L* D 7.17 L* D ABG pCO2 31 L 63 H D 45 D ABG pO2 78 L 38 L* D 84 D ABG HCO3 19 L 18 L 16 L ABG O2 Saturation 96 59 L 96 ABG Base Excess -5 L -12 L -11 L VBG pH VBG pCO2 VBG pO2 VBG Base Excess 05/16/24 05/17/24 05/18/24 04:38 04:03 04:20 ABG pH 7.28 L D 7.38 D 7.49 H D ABG pCO2 34 D 28 L 30 L ABG pO2 96 85 66 L ABG HCO3 16 L 17 L 23 ABG O2 Saturation 98 97 94 ABG Base Excess -10 L -8 L 0 VBG pH VBG pCO2 VBG pO2 VBG Base Excess 05/19/24 05/20/24 05/21/24 09:05 06:05 22:35 ABG pH 7.30 L D 7.41 D ABG pCO2 49 H D 42 ABG pO2 63 L 63 L ABG HCO3 24 27 H ABG O2 Saturation 91 93 ABG Base Excess -3 2 VBG pH 7.31 L VBG pCO2 50 VBG pO2 39 VBG Base Excess -2 05/26/24 05/29/24 04:17 12:28 ABG pH 7.38 7.42 ABG pCO2 42 35 ABG pO2 81 L 67 L ABG HCO3 25 23 ABG O2 Saturation 97 95 ABG Base Excess 0 -2 VBG pH VBG pCO2 VBG pO2 VBG Base Excess Assessment & Plan A&P Narrative abd abscess, stain neg. later grew c albicans so on flucon now here since 05/13.usual rx for most things is 7d. left on merrem thru weekend but collection in abd eventually grew a yeast, so ok for another 7d rx will see again prn Time Spent With Patient Time: Total time spent is greater than 50% in coordination of care (as documented) at patient's floor/unit and/or counseling patient:
[2024-06-03] MEDS: HEPARIN SOD INJ 1000 UNIT/ML VIAL 10 ML 3500 UNIT INDWELLCAT (17:59)
--- NOTE | 2024-06-03 18:31 | PC.NURSE ---
Dialysis completed for 3 hrs, tolerated well. Pt no complaints. Respiration even and unlabored. Sating at 99% on O2 at 2L/min via nc. 1 unit prbc given during HD, no s/s of reaction/side effects noted. Able to removed 1850 ml of fluid net. Post tx BP 129/60, HR 96, Temp 97.7. Pt back in her room. Call light within reached. Report given to Pati SPARKS
[2024-06-03] MEDS: AMINO ACID IV (18:38)
[2024-06-03] MEDS: FAT EMUL/OLIVE/SOY/PHOS 20% IV 500 ML 32 ML IV (18:38)
[2024-06-03] MEDS: [UNRECOGNIZED DRUG - OTHER] IV (18:38)
[2024-06-03] MEDS: SODIUM CHLOR ADDITIVE IV (18:38)
[2024-06-03] MEDS: AMIODARONE HCL 200 MG TABLET PO (20:34)
[2024-06-03 22:30] LABS: Partial Thromboplastin Time 53.5 Seconds (22.0-36.0)
[2024-06-04] VITALS (14 sets, daily range): BP systolic 101–154; BP diastolic 61–95; PULSE 82–120; RESP 17–26; TEMP 35.9–36.2; O2SAT 96–100; BMI 37.8
[2024-06-04] MEDS: HYDROcodone/APAP 5/325 TABLET 1 TAB PO ×5 (00:27→23:33)
[2024-06-04] MEDS: INSULIN LISPRO (AdmeLOG) 1 UNIT/0.01 ML UNIT SC ×3 (00:30→12:14)
[2024-06-04] MEDS: ALBUTEROL/IPRATROPIUM (Duoneb) RT SOL 3 ML NEBU INH ×2 (00:52→00:53)
[2024-06-04] MEDS: Heparin/D5w 25K 250 ML Ivpb 25,000 UNIT/250 ML BAG 9.384 UNIT IV (01:38)
[2024-06-04] MEDS: fentaNYL CIT INJ 50 mCg/ML AMP 2ML 25 MCG IVP ×2 (03:07→16:00)
[2024-06-04 05:56] LABS: Basophils # (Auto) 0.1 Thou/mm3 (0.0-0.2); Basophils % (Auto) 1 % (0-2.5); Eosinophils # (Auto) 0.2 Thou/mm3 (0.0-0.5); Eosinophils % (Auto) 1 % (0-10); Hematocrit 27.7 % (36.0-46.0); Immature Granulocytes % (Auto) 10 % (0-0); Immature Granulocytes Auto 1.17 Thou/mm3 (0.00-0.00); Lymphocytes # (Auto) 1.7 Thou/mm3 (1.0-4.8); Lymphocytes % (Auto) 14 % (10-50); Mean Corpuscular HGB Conc 32.5 g/dl (31.0-37.0); Mean Corpuscular Hemoglobin 27.1 pg (25.0-35.0); Mean Corpuscular Volume 83 fL (80-100); Monocytes # (Auto) 0.7 Thou/mm3 (0.0-0.8); Monocytes % (Auto) 6 % (0-12); Neutrophils # (Auto) 8.4 Thou/mm3 (1.8-7.7); Neutrophils % (Auto) 69 % (37-80); Nucleated Red Blood Cell # 0.12 Thou/mm3 (0.00-0.00); Nucleated Red Blood Cell % 1 /100 WBC (0); Platelet Count 322 Thou/mm3 (140-440); RDW Standard Deviation 54.2 fL (36.4-46.3); Red Blood Count 3.32 Miln/mm3 (4.00-5.20); White Blood Count 12.2 Thou/mm3 (3.6-11.0)
[2024-06-04 06:26] LABS: Alanine Aminotransferase < 7 U/L (10-49); Albumin, Serum 3.5 gm/dL (3.4-4.8); Albumin/Globulin Ratio 1.1 (1.2-2.2); Alkaline Phosphatase 145 U/L (46-116); Anion Gap 8 (7-16); Aspartate Amino Transferase 19 U/L (0-34); BUN/Creatinine Ratio 8 Ratio (12-20); Bilirubin,Total 0.6 mg/dL (0.3-1.2); Blood Urea Nitrogen 29 mg/dL (9-23); Calcium 9.1 mg/dL (8.3-10.6); Calcium (Corrected) 9.5 mg/dL (8.5-10.1); Carbon Dioxide 24.9 mMol/L (20.0-31.0); Chloride 98 mMol/L (98-107); Creatinine (Component) 3.6 mg/dL (0.6-1.3); Estimated Creatinine Clearance 13.2 mL/min (>60); Globulin 3.3 gm/dL (2.3-3.5); Glucose 139 mg/dL (74-106); Osmolality,Calculated 270 (275-295); Potassium 3.4 mMol/L (3.4-5.1); Sodium 131 mMol/L (136-145); Total Protein 6.8 gm/dL (5.7-8.2); eGFR 13 See Note
[2024-06-04 06:39] LABS: Partial Thromboplastin Time 53.2 Seconds (22.0-36.0)
--- NOTE | 2024-06-04 07:27 | PC.CC ---
Late Entry 06/03/24 Rounding note: Pt to remain in-house possible further 1 week on IV antibiotics.
--- NOTE | 2024-06-04 08:46 | ESPR_ITS ---
Documentation for date of: 06/04/24 Subjective Subjective Interval history: Interval history: Mr. Castellanos is a 12-dudi-hyipve with past medical history of prediabetes, CKD, hypertension, history of ulcers who was admitted to [facility] for sepsis secondary to pneumonia and acute metabolic encephalopathy. Patient was BIBA to the ED after being found unconscious on the floor. According to the son on admission patient's daughter found the patient at 3 AM passed out on the floor and unresponsive. Family is unaware along the patient was on the floor. 2 days ago patient started to develop abdominal pain and weakness all over her body associated with some diarrhea and shortness of breath. Patient's abdominal pain comes and goes from right side to left side of the abdomen. ED course patient was hypertensive tachycardic tachypneic and was saturating 92% on 5 L nasal cannula ED labs significant for WBCs 24.3, bicarb 19.6, glucose 259, lactic acid 2.2, BNP 304, troponin 0.09. 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, colonic diverticulosis, Cervical spine CT showed 3 mm radiolucency in C3 vertebral body Chest CTA showed mild aneurysmal dilatation ascending thoracic aorta AP dimension 4.3 cm and pulmonary artery hypertension with moderate vascular congestion Face CT shows no acute facial fracture, Lumbar spine CT shows no acute lumbar fracture severe acquired spinal stenosis L4-L5, Thoracic spine CT showed no acute fracture Brain MRI with MRA showed equally focal restricted diffusion brainstem medullary level significant stenosis of right P1 P2 segment posterior cerebral artery Postadmission, cardiology was consulted on admission because of elevated troponins, suspicion of NSTEMI type II, patient has acute decompensated heart failure per cardiology evaluation, neurology consulted because of patient's acute metabolic encephalopathy and GI was consulted for suspicion of GI bleed. Eventually on 05/15 rapid response was called for worsening chest pain, patient's map was consistently in 70s, was tachycardic tachypneic. CT angiogram showed pneumoperitoneum multiple air droplets adjacent to and within wall of stomach with suspicion of gastric perforation. General surgery was consulted for emergency surgery and patient had exploratory laparotomy with repair of perforated gastric ulcer with an omental patch. Patient was upgraded to ICU postop for further management patient currently on Levophed and vasopressor due to distributive shock, currently sedated and intubated on mechanical ventilation. Nephrology consulted due to concern of ADILSON. 06/01/2023 patient currently seen on dialysis.WBC 16.7, hemoglobin 8.3, platelets 493. Sodium 128, potassium 3.8, BUN 44, creatinine 4.5, calcium 9.9, phosphorus 3, magnesium 1.7, LFTs normal, albumin 3.3, urinalysis shows trace blood abdominal CT showed loculated ascites versus abscess collection in the left abdomen. 06/03/2023 patient currently seen on dialysis. Complaining of abdominal pain. Labs, medications have been reviewed. Her niece at bedside. WBC 13.3, hemoglobin 7.9 sodium 128, BUN 43, creatinine 5.1, glucose 124, LFTs normal, 1 unit of blood transfusion ordered with dialysis. 06/04/2023 patient currently seen in medical floor. Going for CAT scan for abdominal pain. Labs and medications have been reviewed. Blood pressure 101/71, heart rate 100. WBC 12.2,, platelets 322. Sodium 131, potassium 3.4, BUN 29, creatinine 3 point, LFTs normal, albumin 3.5. Review of Systems Review of Systems Narrative Review of Systems: Patient denies any chest pain, shortness of breath. Denies any nausea, vomiting. Does have abdominal pain. Exam Vital Signs Temp Pulse Resp BP Pulse Ox O2 Del Method O2 Flow Rate 36.1 C 101 H 25 H 109/61 98 Nasal Cannula 2 06/04/24 08:00 06/04/24 08:00 06/04/24 08:00 06/04/24 08:00 06/04/24 08:00 06/04/24 08:00 06/04/24 08:00 FiO2 4 06/03/24 18:04 Narrative Exam GENERAL APPEARANCE: Patient currently seen in medical floor. NECK: Neck supple, no JVD or bruit CARDIOVASCULAR: Heart regular, no murmurs LUNGS/CHEST: Few rhonchi noted bilaterally ABDOMEN: S/p bowel surgery with 2 drains EXTREMITIES: 1+ edema in the legs SKIN: IJ PermCath MUSCULOSKELETAL: In bed NEUROLOGICAL : Arousable Objective Labs 06/04/24 05:36 06/04/24 05:36 Labs: Laboratory Results - last 24 hr 06/03/24 06/03/24 06/03/24 08:36 13:00 15:28 WBC 13.3 H RBC 2.93 L Hgb 7.9 L Hct 24.3 L MCV 83 MCH 27.0 MCHC 32.5 RDW Std Deviation 57.1 H Plt Count 420 Neut % (Auto) 71 Lymph % (Auto) 12 [place] % (Auto) 5 Eos % (Auto) 1 Baso % (Auto) 1 Neut # (Auto) 9.5 H Lymph # (Auto) 1.7 [place] # (Auto) 0.7 Eos # (Auto) 0.1 Baso # (Auto) 0.1 Immature Gran # (Auto) 1.28 H Absolute Nucleated RBC 0.10 H Immature Gran % 10 H Nucleated RBC % 1 H APTT 50.6 H 51.8 H Sodium 128 L Potassium 3.8 Chloride 96 L Carbon Dioxide 21.6 Anion Gap 10 BUN 43 H Creatinine 5.1 H* D Estim Creat Clear Calc 9.1 L eGFR 9 L* BUN/Creatinine Ratio 8 L Glucose 124 H Calculated Osmolality 268 L Calcium 9.5 Corrected Calcium 10.0 Total Bilirubin 0.5 AST 16 ALT < 7 L Alkaline Phosphatase 139 H Total Protein 6.8 Albumin 3.4 Globulin 3.4 Albumin/Globulin Ratio 1.0 L Blood Type O Positive Antibody Screen NEGATIVE Crossmatch See Detail Blood Bank Wristband ID Yes 06/03/24 06/04/24 21:37 05:36 WBC 12.2 H RBC 3.32 L Hgb 9.0 L Hct 27.7 L MCV 83 MCH 27.1 MCHC 32.5 RDW Std Deviation 54.2 H Plt Count 322 D Neut % (Auto) 69 Lymph % (Auto) 14 [place] % (Auto) 6 Eos % (Auto) 1 Baso % (Auto) 1 Neut # (Auto) 8.4 H Lymph # (Auto) 1.7 [place] # (Auto) 0.7 Eos # (Auto) 0.2 Baso # (Auto) 0.1 Immature Gran # (Auto) 1.17 H Absolute Nucleated RBC 0.12 H Immature Gran % 10 H Nucleated RBC % 1 H APTT 53.5 H 53.2 H Sodium 131 L Potassium 3.4 Chloride 98 Carbon Dioxide 24.9 Anion Gap 8 BUN 29 H Creatinine 3.6 H D Estim Creat Clear Calc 13.2 L eGFR 13 L* BUN/Creatinine Ratio 8 L Glucose 139 H Calculated Osmolality 270 L Calcium 9.1 Corrected Calcium 9.5 Total Bilirubin 0.6 AST 19 ALT < 7 L Alkaline Phosphatase 145 H Total Protein 6.8 Albumin 3.5 Globulin 3.3 Albumin/Globulin Ratio 1.1 L Blood Type Antibody Screen Crossmatch Blood Bank Wristband ID ABG Interpretation ABG results: 05/13/24 05/15/24 05/15/24 08:29 15:28 16:03 ABG pH 7.39 7.05 L* D 7.17 L* D ABG pCO2 31 L 63 H D 45 D ABG pO2 78 L 38 L* D 84 D ABG HCO3 19 L 18 L 16 L ABG O2 Saturation 96 59 L 96 ABG Base Excess -5 L -12 L -11 L VBG pH VBG pCO2 VBG pO2 VBG Base Excess 05/16/24 05/17/24 05/18/24 04:38 04:03 04:20 ABG pH 7.28 L D 7.38 D 7.49 H D ABG pCO2 34 D 28 L 30 L ABG pO2 96 85 66 L ABG HCO3 16 L 17 L 23 ABG O2 Saturation 98 97 94 ABG Base Excess -10 L -8 L 0 VBG pH VBG pCO2 VBG pO2 VBG Base Excess 05/19/24 05/20/24 05/21/24 09:05 06:05 22:35 ABG pH 7.30 L D 7.41 D ABG pCO2 49 H D 42 ABG pO2 63 L 63 L ABG HCO3 24 27 H ABG O2 Saturation 91 93 ABG Base Excess -3 2 VBG pH 7.31 L VBG pCO2 50 VBG pO2 39 VBG Base Excess -2 05/26/24 05/29/24 04:17 12:28 ABG pH 7.38 7.42 ABG pCO2 42 35 ABG pO2 81 L 67 L ABG HCO3 25 23 ABG O2 Saturation 97 95 ABG Base Excess 0 -2 VBG pH VBG pCO2 VBG pO2 VBG Base Excess Assessment & Plan Additional Assessment & Plan Additional Plan: Mr. Castellanos is a 76-uuhm-yswldj with past medical history of prediabetes, CKD, hypertension, history of ulcers who was admitted to [facility] for sepsis secondary to pneumonia and acute metabolic encephalopathy. Patient is currently sedated intubated in ICU status post exploratory laparotomy with repair of perforated gastric ulcer with an omental patch. Nephrology consulted for acute kidney injury. #Acute kidney injury #Acute Tubular Necrosis 2/2 shock #Anasarca Patient currently seems to be in ATN probably ischemic from fluctuations in blood pressure and underlying shock- started her on dialysis. Patient currently seen on dialysis. Tolerating dialysis without any problems. Patient has left IJ PermCath Patient was started on TPN with significant fluid overload-next dialysis scheduled for Wednesday Hyponatremia will be corrected with dialysis. -Renally dose medications -Avoid nephrotoxic agents -Monitor urine output, strict I&O's -Follow renal panel in a.m. Plan discussed with primary team #Metabolic acidosis, resolved #Lactic Acidosis #Acute Encephalopathy #Acute ischemic stroke #Distributive shock #Acute decompensated HF #Elevated Troponin #Hyperlipidemia #Primary Hypertension #Acute Hypoxic Respiratory failure #Pneumoperitoneum #Peritonitis secondary to perforated gastric ulcer #Acute Upper GI bleed #Diabetes Mellitus type II #Acute anemia All above problems per primary team. Prognosis remains guarded.
[2024-06-04] MEDS: PANTOPRAZOLE INJ 40 MG VIAL IVP ×2 (09:15→20:34)
[2024-06-04] MEDS: AMIODARONE HCL 200 MG TABLET PO ×2 (09:15→20:34)
[2024-06-04] MEDS: INSULIN GLARGINE (Lantus) 5 UNIT/0.05 ML (PER 5 UNITS) 12 UNIT SC (09:16)
[2024-06-04] MEDS: FLUCONAZOLE 100 MG TABLET 400 MG PO (09:16)
[2024-06-04] MEDS: TIMOLOL OP SOL 0.5% 5 ML BTL 1 DROP BOTH EYES (09:18)
--- NOTE | 2024-06-04 10:31 | XR_ITS ---
Examination: CT abdomen and pelvis without contrast. Coronal 3-D reconstructions. Sagittal 2-D reconstructions. Date and time of exam:June 04, 2024 1252 hrs. Indications: History right pleural gastric fluid-filled mass post drainage, history left lower abdomen fluid collection post CT-guided catheter drainage June 02, 2024 CTDI: vol (mGy): 14.1 DLP: (mGycm): 753 Technique: Axial images of the abdomen have been obtained, 3 mm slice thickness Intravenous contrast material has not been administered. Low dose protocols were performed. One or more of the following dose reduction techniques were used; automated exposure control, adjustment of the mA and/or KV according to patient size, use of iterative reconstruction technique. Findings: Moderate enlargement cardiac contour Mild left minimal right pleural fluid Atelectasis versus pneumonia left base No focal liver lesions Distended gallbladder no stones Drainage tube projects posterior to the stomach in the left upper abdomen Spleen is not enlarged No hydronephrosis Heavy abdominal aortic calcification The fluid collection in the left lower abdomen has markedly decreased in size compared with June 02, 2024 A drainage catheter is in satisfactory position Mild fluid in the pelvis Atrophic uterus Contracted urinary bladder Impression: The abscess collection in the left lower abdomen has markedly decreased in size compared to June 02, 2024, the drainage catheter is in satisfactory position
--- NOTE | 2024-06-04 12:38 | PC.CC ---
Rounding note: pt to remain on TPN, abd abscess.
--- NOTE | 2024-06-04 14:06 | PCS.ST ---
pt eating 50% of meals. [employer] will continue to follow to advance pt's diet as pt's condition improves.
--- NOTE | 2024-06-04 16:39 | ESPR_ITS ---
Documentation for date of: 06/04/24 Subjective Subjective Interval history: Downtrending WBC count to 12.2 Hemoglobin hematocrit 9.0 27.7 Met with the daughter Patient is able to swallow liquids as well as applesauce not eating very well Exam Vital Signs Temp Pulse Resp BP Pulse Ox O2 Del Method O2 Flow Rate 97.2 F 108 H 20 141/74 H 96 Nasal Cannula 2 06/04/24 12:00 06/04/24 13:15 06/04/24 13:15 06/04/24 12:10 06/04/24 13:15 06/04/24 12:00 06/04/24 13:15 FiO2 4 06/04/24 12:00 Constitutional Comments: More alert and talkative Routine Respiratory Exam Comments: Normal to auscultation Routine Abdominal Exam Comments: Soft nontender Objective Labs 06/04/24 05:36 06/04/24 05:36 Labs: Laboratory Results - last 24 hr 06/03/24 06/04/24 21:37 05:36 WBC 12.2 H RBC 3.32 L Hgb 9.0 L Hct 27.7 L MCV 83 MCH 27.1 MCHC 32.5 RDW Std Deviation 54.2 H Plt Count 322 D Neut % (Auto) 69 Lymph % (Auto) 14 [place] % (Auto) 6 Eos % (Auto) 1 Baso % (Auto) 1 Neut # (Auto) 8.4 H Lymph # (Auto) 1.7 [place] # (Auto) 0.7 Eos # (Auto) 0.2 Baso # (Auto) 0.1 Immature Gran # (Auto) 1.17 H Absolute Nucleated RBC 0.12 H Immature Gran % 10 H Nucleated RBC % 1 H APTT 53.5 H 53.2 H Sodium 131 L Potassium 3.4 Chloride 98 Carbon Dioxide 24.9 Anion Gap 8 BUN 29 H Creatinine 3.6 H D Estim Creat Clear Calc 13.2 L eGFR 13 L* BUN/Creatinine Ratio 8 L Glucose 139 H Calculated Osmolality 270 L Calcium 9.1 Corrected Calcium 9.5 Total Bilirubin 0.6 AST 19 ALT < 7 L Alkaline Phosphatase 145 H Total Protein 6.8 Albumin 3.5 Globulin 3.3 Albumin/Globulin Ratio 1.1 L Impressions Impression: # Perforated gastric ulcer requiring exploratory laparotomy with omental patch and suturing of the gastric ulcer # Posthemorrhagic anemia Continue to monitor CBC ABG Interpretation ABG results: 05/13/24 05/15/24 05/15/24 08:29 15:28 16:03 ABG pH 7.39 7.05 L* D 7.17 L* D ABG pCO2 31 L 63 H D 45 D ABG pO2 78 L 38 L* D 84 D ABG HCO3 19 L 18 L 16 L ABG O2 Saturation 96 59 L 96 ABG Base Excess -5 L -12 L -11 L VBG pH VBG pCO2 VBG pO2 VBG Base Excess 05/16/24 05/17/24 05/18/24 04:38 04:03 04:20 ABG pH 7.28 L D 7.38 D 7.49 H D ABG pCO2 34 D 28 L 30 L ABG pO2 96 85 66 L ABG HCO3 16 L 17 L 23 ABG O2 Saturation 98 97 94 ABG Base Excess -10 L -8 L 0 VBG pH VBG pCO2 VBG pO2 VBG Base Excess 05/19/24 05/20/24 05/21/24 09:05 06:05 22:35 ABG pH 7.30 L D 7.41 D ABG pCO2 49 H D 42 ABG pO2 63 L 63 L ABG HCO3 24 27 H ABG O2 Saturation 91 93 ABG Base Excess -3 2 VBG pH 7.31 L VBG pCO2 50 VBG pO2 39 VBG Base Excess -2 05/26/24 05/29/24 04:17 12:28 ABG pH 7.38 7.42 ABG pCO2 42 35 ABG pO2 81 L 67 L ABG HCO3 25 23 ABG O2 Saturation 97 95 ABG Base Excess 0 -2 VBG pH VBG pCO2 VBG pO2 VBG Base Excess Assessment & Plan A&P Narrative abd abscess, stain neg. later grew c albicans so on flucon now here since 05/13.usual rx for most things is 7d. left on merrem thru weekend but collection in abd eventually grew a yeast, so ok for another 7d rx will see again prn Time Spent With Patient Time: Total time spent is greater than 50% in coordination of care (as documented) at patient's floor/unit and/or counseling patient:
[2024-06-04] MEDS: MIDODRINE 5 MG TABLET 10 MG PO (17:35)
[2024-06-04] MEDS: POT CHL ADDITIVE IV (17:35)
[2024-06-04] MEDS: [UNRECOGNIZED DRUG - OTHER] IV (17:35)
[2024-06-04] MEDS: AMINO ACID IV (17:35)
[2024-06-04] MEDS: SODIUM CHLOR ADDITIVE IV (17:35)
--- NOTE | 2024-06-04 18:53 | PD.RESPRO ---
Documentation for date of: 06/04/24 Subjective Subjective Interval history: 06/04: no acute overnight events. Pt is seen and examined at bedside. Pt continues to complain of significant abdominal pain. accordian drains have less than 20 cc of output and per surgery if recommendations to remove drains if there is less than 20 cc of output. Will order CT of abdomen pelvis to ensure decrease in size of abscess and the drain catherter is in the right place. Pt. is afebrile and still anuric. Pt will under dialysis tomorrow. leukocytosis continues to down trend. No other complains. Exam Vital Signs Temp Pulse Resp BP Pulse Ox O2 Del Method O2 Flow Rate 97.1 F 100 18 101/71 99 Nasal Cannula 2 06/04/24 16:00 06/04/24 17:35 06/04/24 16:00 06/04/24 17:35 06/04/24 16:00 06/04/24 16:00 06/04/24 16:00 FiO2 4 06/04/24 16:00 Narrative Exam GENERAL: A&Ox3 . Awake, moaning in pain NEURO: no focal neurological deficits HEENT: Atraumatic, Normocephalic. mucous membranes moist. Eyes open, symmetrical, & clear HEART: Normal Heart Sounds LUNGS: clear to auscultation bilaterally, no wheezing, rhonci or crackles ABDOMEN: soft, non-distended, non-tender, bowel sounds heard, no guarding or rebound tenderness, incision site is clean. accordion and percutaneous drains in place SKIN: No Rash or ecchymoses EXTREMITIES: No edema, tenderness, able to move all 4 extremities, pedal pulses palpated Objective Labs 06/06/24 04:46 06/06/24 04:46 Labs: Laboratory Results - last 24 hr 06/03/24 06/04/24 21:37 05:36 WBC 12.2 H RBC 3.32 L Hgb 9.0 L Hct 27.7 L MCV 83 MCH 27.1 MCHC 32.5 RDW Std Deviation 54.2 H Plt Count 322 D Neut % (Auto) 69 Lymph % (Auto) 14 [place] % (Auto) 6 Eos % (Auto) 1 Baso % (Auto) 1 Neut # (Auto) 8.4 H Lymph # (Auto) 1.7 [place] # (Auto) 0.7 Eos # (Auto) 0.2 Baso # (Auto) 0.1 Immature Gran # (Auto) 1.17 H Absolute Nucleated RBC 0.12 H Immature Gran % 10 H Nucleated RBC % 1 H APTT 53.5 H 53.2 H Sodium 131 L Potassium 3.4 Chloride 98 Carbon Dioxide 24.9 Anion Gap 8 BUN 29 H Creatinine 3.6 H D Estim Creat Clear Calc 13.2 L eGFR 13 L* BUN/Creatinine Ratio 8 L Glucose 139 H Calculated Osmolality 270 L Calcium 9.1 Corrected Calcium 9.5 Total Bilirubin 0.6 AST 19 ALT < 7 L Alkaline Phosphatase 145 H Total Protein 6.8 Albumin 3.5 Globulin 3.3 Albumin/Globulin Ratio 1.1 L ABG Interpretation ABG results: 05/13/24 05/15/24 05/15/24 08:29 15:28 16:03 ABG pH 7.39 7.05 L* D 7.17 L* D ABG pCO2 31 L 63 H D 45 D ABG pO2 78 L 38 L* D 84 D ABG HCO3 19 L 18 L 16 L ABG O2 Saturation 96 59 L 96 ABG Base Excess -5 L -12 L -11 L VBG pH VBG pCO2 VBG pO2 VBG Base Excess 05/16/24 05/17/24 05/18/24 04:38 04:03 04:20 ABG pH 7.28 L D 7.38 D 7.49 H D ABG pCO2 34 D 28 L 30 L ABG pO2 96 85 66 L ABG HCO3 16 L 17 L 23 ABG O2 Saturation 98 97 94 ABG Base Excess -10 L -8 L 0 VBG pH VBG pCO2 VBG pO2 VBG Base Excess 05/19/24 05/20/24 05/21/24 09:05 06:05 22:35 ABG pH 7.30 L D 7.41 D ABG pCO2 49 H D 42 ABG pO2 63 L 63 L ABG HCO3 24 27 H ABG O2 Saturation 91 93 ABG Base Excess -3 2 VBG pH 7.31 L VBG pCO2 50 VBG pO2 39 VBG Base Excess -2 05/26/24 05/29/24 04:17 12:28 ABG pH 7.38 7.42 ABG pCO2 42 35 ABG pO2 81 L 67 L ABG HCO3 25 23 ABG O2 Saturation 97 95 ABG Base Excess 0 -2 VBG pH VBG pCO2 VBG pO2 VBG Base Excess Quality Measures Quality Measures VTE prophylaxis (Heparin) Advance care planning discussed with:: patient and child Assessment & Plan Assessment Current Active Medications: Generic Name Dose Route Start Last Admin Trade Name Freq PRN Reason Stop Dose Admin Hydrocodone Bitart/Acetaminophen 1 tab 06/03/24 12:00 06/04/24 17:35 Hydrocodone/Apap 5/325 Tablet PO 06/08/24 11:59 1 tab Q6HR ANGELICA Administration Albuterol/Ipratropium 3 ml 05/27/24 18:08 06/04/24 00:53 Albuterol/Ipratropium (Duoneb) Rt Jimena 3 Ml Nebu INH 06/26/24 18:07 3 ml Q2HR PRN Administration SHORTNESS OF BREATH OR WHEEZE Amiodarone HCl 200 mg 05/29/24 15:00 06/04/24 09:15 Amiodarone Hcl 200 Mg Tablet PO 06/28/24 14:59 200 mg BID ANGELICA Administration Benzocaine 1 lozenge 05/31/24 11:53 05/31/24 12:54 Benzocaine/Menthol 1 Lozenge PO 06/30/24 11:52 1 lozenge Q4HR PRN Administration Sore throat Dextrose 25 ml 05/24/24 15:43 Dextrose 50%-Water Inj 50 Ml Syringe IV 06/23/24 15:42 Q15MIN PRN BG 50-70 responsive npo pt Dextrose 50 ml 05/24/24 15:43 Dextrose 50%-Water Inj 50 Ml Syringe IV 06/23/24 15:42 Q15MIN PRN BG <50 OR BG <70 & pt unresponsive Fentanyl Citrate 25 mcg 06/03/24 11:22 06/04/24 16:00 Fentanyl Cit Inj 50 Mcg/Ml Amp 2ml IVP 06/07/24 23:21 25 mcg Q6H PRN Administration Pain 7-10 Fluconazole 400 mg 06/02/24 09:00 06/04/24 09:16 Fluconazole 100 Mg Tablet PO 06/09/24 08:59 400 mg QDAY ANGELICA Administration Glucagon 1 mg 05/24/24 15:43 Glucagon Inj 1 Mg Vial IM Q15MIN PRN BG <70, and no IV access Heparin Sodium (Porcine) 3,500 unit 06/03/24 15:24 06/03/24 17:59 Heparin Sod Inj 1000 Unit/Ml Vial 10 Ml INDWELLCAT 06/17/24 15:23 3,500 unit X1 PRN Administration DIALYSIS Albumin Human 25 gm in 100 mls @ 100 mls/min 05/25/24 10:07 05/30/24 19:13 Albuminar-25 Ivpb IV Infused PRN PRN Infusion DIALYSIS Fat Emulsion-[place] Oil/Soybean Oil 500 mls @ 32 mls/hr 05/27/24 18:00 06/03/24 18:38 Clinopid 20% Iv IV 06/26/24 17:59 32 mls/hr TuSa@1800 ANGELICA Administration Heparin Sodium/Dextrose 25,000 unit in 250 mls @ 9.384 mls/hr 06/02/24 19:15 06/04/24 06:42 Heparin In D5w Ivpb IV 06/06/24 18:14 12 units/kg/hr .Q24H ANGELICA 9.384 mls/hr Titration Protocol 12 UNITS/KG/HR Sodium Chloride 20 meq/ 2,015 mls @ 19.931 mls/hr 06/04/24 18:00 06/04/24 17:35 Potassium Chloride 20 meq/ IV 06/05/24 17:59 19.931 mls/hr Amino Acids QDAY@1800 ANGELICA Administration Insulin Glargine 12 unit 05/25/24 09:00 06/04/24 09:16 Insulin Glargine (Lantus) 5 Unit/0.05 Ml (Per 5 Units) SC 06/24/24 08:59 12 unit QDAY ANGELICA Administration Insulin Human Lispro 0 unit 05/24/24 18:00 06/04/24 17:28 Insulin Lispro (Admelog) 1 Unit/0.01 Ml Unit SC 06/23/24 17:59 Not Given Q6HR [facility] Protocol Lidocaine 1 patch 05/30/24 09:16 06/01/24 19:01 Lidocaine 5% 1 Patch TOP 06/29/24 09:15 1 patch DAILY PRN Administration BACK PAIN Midodrine 10 mg 06/01/24 20:21 06/04/24 17:35 Midodrine 5 Mg Tablet PO 06/29/24 11:59 10 mg QID ANGELICA Administration Ondansetron HCl 4 mg 05/13/24 11:58 05/14/24 12:31 Ondansetron Inj 2 Mg/Ml Inj 2 Ml IV 06/12/24 11:57 4 mg Q6H PRN Administration NAUSEA OR VOMITING Protocol Pantoprazole Sodium 40 mg 05/15/24 21:00 06/04/24 09:15 Pantoprazole Inj 40 Mg Vial IVP 06/14/24 20:59 40 mg BID ANGELICA Administration Pharmacy Consult 1 each 05/16/24 10:27 Pharmacy Renal Dose Adjustment 1 Ea XX 06/15/24 10:26 PRN PRN CONSULT Sodium Chloride 3 ml 05/24/24 19:00 Sodium Chloride Rt Jimena 0.9% 3 Ml Nebu INH 06/23/24 18:59 PRN PRN SOLN Timolol Maleate 1 drop 05/28/24 18:15 06/04/24 09:18 Timolol Op Jimena 0.5% 5 Ml Btl BOTH EYES 06/27/24 18:14 1 drop DAILY ANGELICA Administration Plan Ms. Castellanos is a 69-year-old female with past medical history significant for hypertension, diabetes and history of gastric ulcers who presented to the ED on 05/13/2024 after she was found unconscious on the floor. Per chart reviewing prior to this unconsciousness patient was having abdominal pain and generalized weakness with diarrhea and shortness of breath for 2 days. Patient was admitted to the hospital for treatment and management of sepsis secondary to pneumonia. Patient was given 1 L normal saline and started on ceftriaxone and azithromycin. patient underwent ex lap surgery for perforated gastric ulcer. Patient remained intubated postop and was upgraded to the ICU. Patient continues to be on dialysis after downgrade, has BALAJI and accordion drain intact, completed bowel rest, was started on dysphagia 1 diet, surgery following case closely, will continue to monitor. #Perforated gastric ulcer #Pneumoperitoneum #Peritonitis secondary to perforated gastric ulcer #Abdominal Abscess, s/p percutaneous drainage x2 #Leukocytosis Patient found to have tender abdomen, rigidity in the epigastrium, chest x-ray showed elevation of hemidiaphragm, CT abdomen showed pneumoperitoneum, concern for perforated viscus, general surgeon Dr. Santana was consulted for emergency laparotomy and possible repair of perforated gastric ulcer. Repeat CT abd/pel on 05/20 revealed Pneumoperitoneum, orogastric tube in the stomach, mild free fluid adjacent to the stomach and anterior to the pancreas. s/p Exploratory laparotomy & repair of perforated gastric ulcer - 05/15. 06/01/24: Overnight there was concern of wound dehiscence. Discussed with general surgeon per surgery superior aspect of the wound was dehiscent after removal of aixa.Surgery removal of BALAJI drain on 06/01. Repeat CT on 06/01- More pronounced fluid collection in the left abdomen below the spleen, 8.9 x 6.4cm, free fluid in the abdomen and pelvis, and Ascites -Abcess culture from 05/25 grew edna albicans Plan: ?Patient completed antibiotic therapy, Meropenem, discontinued per ID Recommendations -continue fluconazole for additional 7 days 06/01- -percutaneous abscess drain catheter placed 06/02 -Pending Abscess Culture from drain 06/02 ?Pain control Fentanyl 25 mcg every 6 hours as needed. And scheduled [place] 5 mg every 6 hours ?Continue with TPN until Pt. is able to consumed atleast 50% of dysphagia 1 diet -Started on pureed diet, will advance as tolerated ?June 03, 2024: Patient was made n.p.o. by overnight team due to abdominal distention but we resumed her diet and p.o. medications. #New onset A-fib with RVR -Likely secondary to shock in the setting of abdominal surgery -EKG findings consistent with A-fib -Was on Amiodarone 200 twice daily for new onset Afib, but as she was in AFib with RVR. Plan: ?Cardiology consulted, appreciate recs -Currently on oral amiodarone 200mg ?Continue with heparin drip as patient may need surgical intervention #Acute tubular necrosis #Anuria -2/2 septic shock -Patient has 0 urine production -Baseline Cr appears to be 0.7 Plan: ?Patient underwent HD fluid removal and removed 2.1 L on 05/18 and 1.5 L on 05/19, 2L fluid removed 05/21, 2.5 L fluid removed on 05/22 , 3L fluid removed on 05/23, 3L fluid removed 05/25, 2L removed 05/26, 1 L removed 05/29, 1.5 L removed 05/30, 06/01 2L fluid removed. -permanent hemodialysis cath placed on 06/02/24 -Started on midodrine 10 mg 4 times daily as patient has difficulty tolerating dialysis, blood pressure drops. -Renally dose medications and avoid nephrotoxic agents -repeat labs in am -Nephrology following #Acute exacerbation of HFpEF # HFpEF EF 55 to 60% -echo 05/16 -estimated EF of 55 to 60%, stage I diastolic dysfunction noted, Moderate to severe posterior MAC -Pt presented with SOB and 2+ edema in LE -elevated BNP from 304 --> 1110 -HD in the setting of anuria -holding guideline directed medical therapy due to shock, will resume when able -Continue dialysis #Acute Hypoxic Respiratory failure likely multifactorial -2/2 to pulmonary edema in the setting of volume overload 2/2 ATN due to shock leading to oligoanuria versus bibasilar pneumonia -Further complicated by bilateral lung atelectasis in the setting of recent abdominal surgery and sedatives use -Patient was intubated and on mechanical ventilation (05/15) and extubated 05/18/2024, currently saturating 95-97 % on 5 L NC -Duonebs prn #Acute Upper GI bleed - stable -Most likely secondary to perforated gastric ulcer -Patient had a single episode of black tarry stool today-likely setting of recent abdominal surgery -Continue iv Protonix. -Will monitor for alarm signs of active bleeding with melena or hematochezia #Hx of Diabetes Mellitus type II - A1C 6.3 % 05/21/2024 - Hold home glipizide and januvia - Plan: Continue to monitor blood sugars - Insulin sliding scale ordered with lantus 12 units #Hyperlipidemia Plan: -Resume patient's medication #Primary Hypertension Holding on resuming home blood pressure medicines at this time #Acute blood loss anemia, stable 2/2 perforated ulcer- S/P surgical repair Hgb stable 9.6 Hct 28.3 patient received 2 units of PRBC 05/18 due to acutely drop in Hgb below 7. No signs of active bleeding. Plan: -Continue to monitor daily CBC. transfuse for hemoglobin less than 7. # Acute encephalopathy-resolved -Likely multifactorial secondary to sepsis versus metabolic versus neurologic versus medication -Patient is awake and alert and follows commands. Patient is able to respond to yes or no questions verbally #Shock - resolved #Hypoosmolar Hyponatremia, resolved Disposition: Telemetry DVT prophylaxis: Heparin drip GI prophylaxis:Protonix 40 BID Diet: Dysphagia 1 diet and TPN Lines: Accordion drains in palce, [place] CODE STATUS: Full Assessment and plan discussed with my attending physician Dr. Esa Rivera ([id number])- Internal medicine resident Attending Provider Attestation/Addendum 69-year-old female with multiple comorbidities including hypertension, type 2 diabetes mellitus and previous history of gastric ulcers who presented to the ER on 05/13/2024 after being found unconscious. Subsequently, patient was admitted for sepsis secondary to pneumonia and found to have acute blood loss anemia and subsequently started developing abdominal pain and imaging noted pneumoperitoneum and subsequently underwent emergency exploratory laparotomy and repair of gastric ulcer on 05/15/2024. Throughout the course of hospitalization, patient's course was complicated by intra-abdominal abscesses and cultures positive for Edna and subsequently underwent drainage and currently on fluconazole. Furthermore, noted to have A-fib with RVR and subsequently transition to amiodarone and anticoagulation. Furthermore, patient creatinine function worsening currently on hemodialysis via a TDC. As of now, plan to obtain imaging to evaluate abscess and plan to remove drainage. Continue fluconazole and hemodialysis per nephrology team. Plan to discontinue TPN as patient is eating. I reviewed above note and agree with findings and plans. I have also personally examined the patient with medicine team and went over assessment and plan with medical team including physician internist and resident physician.
[2024-06-05] VITALS (15 sets, daily range): BP systolic 109–144; BP diastolic 48–90; PULSE 76–111; RESP 15–99; TEMP 36–36.1; O2SAT 98–100; BMI 37.5
[2024-06-05] MEDS: ALBUTEROL/IPRATROPIUM (Duoneb) RT SOL 3 ML NEBU INH ×2 (04:32→07:27)
[2024-06-05] MEDS: INSULIN LISPRO (AdmeLOG) 1 UNIT/0.01 ML UNIT SC (05:51)
[2024-06-05] MEDS: HYDROcodone/APAP 5/325 TABLET 1 TAB PO ×3 (05:52→17:17)
[2024-06-05 06:02] LABS: Basophils # (Auto) 0.2 Thou/mm3 (0.0-0.2); Basophils % (Auto) 1 % (0-2.5); Eosinophils # (Auto) 0.4 Thou/mm3 (0.0-0.5); Eosinophils % (Auto) 3 % (0-10); Hematocrit 27.9 % (36.0-46.0); Immature Granulocytes % (Auto) 9 % (0-0); Immature Granulocytes Auto 1.28 Thou/mm3 (0.00-0.00); Lymphocytes # (Auto) 2.5 Thou/mm3 (1.0-4.8); Lymphocytes % (Auto) 17 % (10-50); Mean Corpuscular HGB Conc 32.3 g/dl (31.0-37.0); Mean Corpuscular Hemoglobin 26.5 pg (25.0-35.0); Mean Corpuscular Volume 82 fL (80-100); Monocytes # (Auto) 0.9 Thou/mm3 (0.0-0.8); Monocytes % (Auto) 6 % (0-12); Neutrophils % (Auto) 64 % (37-80); Nucleated Red Blood Cell # 0.07 Thou/mm3 (0.00-0.00); Nucleated Red Blood Cell % 1 /100 WBC (0); Platelet Count 313 Thou/mm3 (140-440); RDW Standard Deviation 55.2 fL (36.4-46.3); Red Blood Count 3.39 Miln/mm3 (4.00-5.20); White Blood Count 14.2 Thou/mm3 (3.6-11.0)
[2024-06-05 06:23] LABS: Alanine Aminotransferase < 7 U/L (10-49); Albumin, Serum 3.4 gm/dL (3.4-4.8); Alkaline Phosphatase 137 U/L (46-116); Anion Gap 10 (7-16); Aspartate Amino Transferase 21 U/L (0-34); BUN/Creatinine Ratio 8 Ratio (12-20); Bilirubin,Total 0.5 mg/dL (0.3-1.2); Blood Urea Nitrogen 38 mg/dL (9-23); Calcium 9.6 mg/dL (8.3-10.6); Calcium (Corrected) 10.1 mg/dL (8.5-10.1); Carbon Dioxide 24.7 mMol/L (20.0-31.0); Chloride 94 mMol/L (98-107); Creatinine (Component) 4.7 mg/dL (0.6-1.3); Estimated Creatinine Clearance 10.1 mL/min (>60); Globulin 3.4 gm/dL (2.3-3.5); Glucose 134 mg/dL (74-106); Magnesium 1.7 mg/dL (1.6-2.6); Osmolality,Calculated 269 (275-295); Phosphorous 3.1 mg/dL (2.4-5.1); Potassium 3.8 mMol/L (3.4-5.1); Sodium 129 mMol/L (136-145); Total Protein 6.8 gm/dL (5.7-8.2); eGFR 10 See Note
[2024-06-05 06:48] LABS: Partial Thromboplastin Time 54.2 Seconds (22.0-36.0)
[2024-06-05] MEDS: Heparin/D5w 25K 250 ML Ivpb 25,000 UNIT/250 ML BAG 9.384 UNIT IV (08:04)
--- NOTE | 2024-06-05 08:32 | ESPR_ITS ---
<Statement entered by Jalen Davis MD - 06/05/24 19:12> I have personally seen and examined the patient separately on the above date of service and discussed the plan of care with the resident. I reviewed the resident Dr. Hernandes consultation progress note and agree with the resident findings and plan in the note above and have also edited the documentation to reflect my findings and plan. Telemetry reviewed and patient still is in atrial fibrillation. Patient does have persistent atrial fibrillation now as it has been more than few weeks. Rate is well-controlled on the present regimen of amiodarone 200 mg twice daily. Last EKG did show a QTc in the normal range. Patient has occasional RVR but lasts only few seconds on the telemetry and essentially heart rate is well- controlled. Beta-christian not on board as the patient is hypotensive and requiring midodrine for dialysis. Magnesium was low at 1.7 recommended to replace 4 g magnesium sulfate IV for now. Keep potassium close to 4 and magnesium greater than 2.0 at all times. Continue to monitor telemetry. Plan to continue to adjust rate control for atrial fibrillation for now and continue anticoagulation with heparin drip which can be eventually changed to Eliquis if no further procedures are performed. Once patient fully recovers from everything then cardioversion can be attempted in a few months as outpatient Patient still continues to be recovering from the recent abdominal surgeries for perforation of the gastric ulcer along with peritonitis and abdominal abscesses requiring drainage. Abdomen still appears to be slightly distended and still has drains in place. Scars covered with dressing but dressing appears to be soaked with possible oozing of blood. Primary and surgical teams are following. Continue to monitor hemoglobin which is around 9.0 patient is also on erythropoietin, iron studies did not show any significant iron deficiency anemia. Multiple other electrolyte abnormalities including hyponatremia and hypochloremia observed. Patient has not been eating because of the abdominal surgeries and has been placed on TPN. Will need adequate replacement of the electrolytes also. Jalen Davis M.D. Interventional Cardiology Documentation for date of: 06/05/24 Subjective Subjective Interval history: Pt examined at bedside today. Some PVCs overnight seen on telemetry but patient is still in A-fib rate controlled 90s-mid 100s. Pt says that she is not experiencing any chest pain or SOB at this time. Says that she still has some abd pain. Does not appear to be fluid overloaded at this time. Reports having a bigger appetite and working with speech therapy. No other complaints at this time. Exam Vital Signs Temp Pulse Resp BP Pulse Ox O2 Del Method O2 Flow Rate 96.8 F 102 H 20 124/72 100 Nasal Cannula 2 06/05/24 04:00 06/05/24 07:27 06/05/24 07:27 06/05/24 05:52 06/05/24 07:27 06/05/24 04:00 06/05/24 07:27 FiO2 4 06/04/24 16:00 Narrative Exam General: AAOx3, obese female, no active distress at this time HEENT: Moist mucous membranes, conjunctiva clear, EOMI, PERRLA, Cardiovascular: S1, S2, radial pulses +2 bilat, irregularly irregular rhythm Pulmonary: CTAB bilat no cough, no wheezing GI: Accordion and percutaneous drains present, bandages present, no ascites, mildly distended Extremities: No presence of trace or pitting edema in lower extremities bilaterally, dorsalis pedis pulses +2 bilaterally Neuro: AAOx3, no focal motor or sensory deficits in the UE or LE bilat Psych: Cooperative Objective Labs 06/05/24 04:49 06/05/24 04:49 Labs: Laboratory Results - last 24 hr 06/05/24 04:49 WBC 14.2 H RBC 3.39 L Hgb 9.0 L Hct 27.9 L MCV 82 MCH 26.5 MCHC 32.3 RDW Std Deviation 55.2 H Plt Count 313 Neut % (Auto) 64 Lymph % (Auto) 17 [place] % (Auto) 6 Eos % (Auto) 3 Baso % (Auto) 1 Neut # (Auto) 9.0 H Lymph # (Auto) 2.5 [place] # (Auto) 0.9 H Eos # (Auto) 0.4 Baso # (Auto) 0.2 Immature Gran # (Auto) 1.28 H Absolute Nucleated RBC 0.07 H Immature Gran % 9 H Nucleated RBC % 1 H APTT 54.2 H Sodium 129 L Potassium 3.8 Chloride 94 L Carbon Dioxide 24.7 Anion Gap 10 BUN 38 H Creatinine 4.7 H* D Estim Creat Clear Calc 10.1 L eGFR 10 L* BUN/Creatinine Ratio 8 L Glucose 134 H Calculated Osmolality 269 L Calcium 9.6 Corrected Calcium 10.1 Phosphorus 3.1 Magnesium 1.7 Total Bilirubin 0.5 AST 21 ALT < 7 L Alkaline Phosphatase 137 H Total Protein 6.8 Albumin 3.4 Globulin 3.4 Albumin/Globulin Ratio 1.0 L ABG Interpretation ABG results: 05/13/24 05/15/24 05/15/24 08:29 15:28 16:03 ABG pH 7.39 7.05 L* D 7.17 L* D ABG pCO2 31 L 63 H D 45 D ABG pO2 78 L 38 L* D 84 D ABG HCO3 19 L 18 L 16 L ABG O2 Saturation 96 59 L 96 ABG Base Excess -5 L -12 L -11 L VBG pH VBG pCO2 VBG pO2 VBG Base Excess 05/16/24 05/17/24 05/18/24 04:38 04:03 04:20 ABG pH 7.28 L D 7.38 D 7.49 H D ABG pCO2 34 D 28 L 30 L ABG pO2 96 85 66 L ABG HCO3 16 L 17 L 23 ABG O2 Saturation 98 97 94 ABG Base Excess -10 L -8 L 0 VBG pH VBG pCO2 VBG pO2 VBG Base Excess 05/19/24 05/20/24 05/21/24 09:05 06:05 22:35 ABG pH 7.30 L D 7.41 D ABG pCO2 49 H D 42 ABG pO2 63 L 63 L ABG HCO3 24 27 H ABG O2 Saturation 91 93 ABG Base Excess -3 2 VBG pH 7.31 L VBG pCO2 50 VBG pO2 39 VBG Base Excess -2 05/26/24 05/29/24 04:17 12:28 ABG pH 7.38 7.42 ABG pCO2 42 35 ABG pO2 81 L 67 L ABG HCO3 25 23 ABG O2 Saturation 97 95 ABG Base Excess 0 -2 VBG pH VBG pCO2 VBG pO2 VBG Base Excess Quality Measures Quality Measures VTE prophylaxis (Heparin) Advance care planning discussed with:: patient Assessment & Plan Assessment Current Active Medications: Generic Name Dose Route Start Last Admin Trade Name Freq PRN Reason Stop Dose Admin Hydrocodone Bitart/Acetaminophen 1 tab 06/03/24 12:00 06/05/24 05:52 Hydrocodone/Apap 5/325 Tablet PO 06/08/24 11:59 1 tab Q6HR ANGELICA Administration Albuterol/Ipratropium 3 ml 05/27/24 18:08 06/05/24 07:27 Albuterol/Ipratropium (Duoneb) Rt Jimena 3 Ml Nebu INH 06/26/24 18:07 3 ml Q2HR PRN Administration SHORTNESS OF BREATH OR WHEEZE Amiodarone HCl 200 mg 05/29/24 15:00 06/04/24 20:34 Amiodarone Hcl 200 Mg Tablet PO 06/28/24 14:59 200 mg BID ANGELICA Administration Benzocaine 1 lozenge 05/31/24 11:53 05/31/24 12:54 Benzocaine/Menthol 1 Lozenge PO 06/30/24 11:52 1 lozenge Q4HR PRN Administration Sore throat Dextrose 25 ml 05/24/24 15:43 Dextrose 50%-Water Inj 50 Ml Syringe IV 06/23/24 15:42 Q15MIN PRN BG 50-70 responsive npo pt Dextrose 50 ml 05/24/24 15:43 Dextrose 50%-Water Inj 50 Ml Syringe IV 06/23/24 15:42 Q15MIN PRN BG <50 OR BG <70 & pt unresponsive Fentanyl Citrate 25 mcg 06/03/24 11:22 06/04/24 16:00 Fentanyl Cit Inj 50 Mcg/Ml Amp 2ml IVP 06/07/24 23:21 25 mcg Q6H PRN Administration Pain 7-10 Fluconazole 400 mg 06/02/24 09:00 06/04/24 09:16 Fluconazole 100 Mg Tablet PO 06/09/24 08:59 400 mg QDAY ANGELICA Administration Glucagon 1 mg 05/24/24 15:43 Glucagon Inj 1 Mg Vial IM Q15MIN PRN BG <70, and no IV access Heparin Sodium (Porcine) 3,500 unit 06/03/24 15:24 06/03/24 17:59 Heparin Sod Inj 1000 Unit/Ml Vial 10 Ml INDWELLCAT 06/17/24 15:23 3,500 unit X1 PRN Administration DIALYSIS Albumin Human 25 gm in 100 mls @ 100 mls/min 05/25/24 10:07 05/30/24 19:13 Albuminar-25 Ivpb IV Infused PRN PRN Infusion DIALYSIS Fat Emulsion-[place] Oil/Soybean Oil 500 mls @ 32 mls/hr 05/27/24 18:00 06/03/24 18:38 Clinopid 20% Iv IV 06/26/24 17:59 32 mls/hr TuSa@1800 [facility] Administration Heparin Sodium/Dextrose 25,000 unit in 250 mls @ 9.384 mls/hr 06/02/24 19:15 06/05/24 08:04 Heparin In D5w Ivpb IV 06/06/24 18:14 12 units/kg/hr .Q24H ANGELICA 9.384 mls/hr Administration Protocol 12 UNITS/KG/HR Sodium Chloride 20 meq/ 2,015 mls @ 19.931 mls/hr 06/04/24 18:00 06/04/24 17:35 Potassium Chloride 20 meq/ IV 06/05/24 17:59 19.931 mls/hr Amino Acids QDAY@1800 [facility] Administration Insulin Glargine 12 unit 05/25/24 09:00 06/04/24 09:16 Insulin Glargine (Lantus) 5 Unit/0.05 Ml (Per 5 Units) SC 06/24/24 08:59 12 unit QDAY [facility] Administration Insulin Human Lispro 0 unit 05/24/24 18:00 06/05/24 05:51 Insulin Lispro (Admelog) 1 Unit/0.01 Ml Unit SC 06/23/24 17:59 2 unit Q6HR [facility] Administration Protocol Lidocaine 1 patch 05/30/24 09:16 06/01/24 19:01 Lidocaine 5% 1 Patch TOP 06/29/24 09:15 1 patch DAILY PRN Administration BACK PAIN Midodrine 10 mg 06/01/24 20:21 06/05/24 05:52 Midodrine 5 Mg Tablet PO 06/29/24 11:59 Not Given QID [facility] Ondansetron HCl 4 mg 05/13/24 11:58 05/14/24 12:31 Ondansetron Inj 2 Mg/Ml Inj 2 Ml IV 06/12/24 11:57 4 mg Q6H PRN Administration NAUSEA OR VOMITING Protocol Pantoprazole Sodium 40 mg 05/15/24 21:00 06/04/24 20:34 Pantoprazole Inj 40 Mg Vial IVP 06/14/24 20:59 40 mg BID [facility] Administration Pharmacy Consult 1 each 05/16/24 10:27 Pharmacy Renal Dose Adjustment 1 Ea XX 06/15/24 10:26 PRN PRN CONSULT Sodium Chloride 3 ml 05/24/24 19:00 Sodium Chloride Rt Jimena 0.9% 3 Ml Nebu INH 06/23/24 18:59 PRN PRN SOLN Timolol Maleate 1 drop 05/28/24 18:15 06/04/24 09:18 Timolol Op Jimena 0.5% 5 Ml Btl BOTH EYES 06/27/24 18:14 1 drop DAILY ANGELICA Administration Plan Assessment Ms. Castellanos is a 69-year-old female with past medical history significant for hypertension, diabetes and history of gastric ulcers who presented to the ED on 05/13/2024 after she was found unconscious on the floor. Per chart reviewing prior to this unconsciousness patient was having abdominal pain and generalized weakness with diarrhea and shortness of breath for 2 days. Patient was admitted to the hospital for treatment and management of sepsis secondary to pneumonia. Patient was given 1 L normal saline and started on ceftriaxone and azithromycin. patient underwent ex lap surgery for perforated gastric ulcer. Patient remained intubated postop and was upgraded to the ICU. Patient continues to be on dialysis after downgrade, has BALAJI and accordion drain intact, completed bowel rest, was started on dysphagia 1 diet, surgery following case closely, will continue to monitor. #New onset A-fib with RVR New onset of Afib, likely related to septic shock requiring pressor support and increased demand from perforated ulcer complicated by abdominal abscesses Pt appears to still be in A-fib, rate controlled, 90s to mid 100s Previous EKG shows a-fib w/RVR CHADVASC: 5 Pts 7.2 % stroke risk per year HAS-BLED score: 3, high risk of major bleeding Plan: -Continue with Oral Amio 200 mg BID -Continue with Heparin drip at this time #Acute exacerbation of HFpEF #HFpEF EF 55 to 60% #History of primary hypertension -Echo 05/16/2024 -estimated EF of 55 to 60%, stage I diastolic dysfunction noted, Moderate to severe posterior MAC Pt has new onset of ESRD requiring HD, requiring midodrine 10 mg QID to tolerate HD Not resuming home amlodipine at this time due to patient being A-fib and blood pressure eventually be controlled with beta-christian Plan: ?Resume GDMT as able ?Fluid restriction ?Daily weights ?Strict ins and outs ?Keep potassium and magnesium above 4 and 2 respectively #Hx of Diabetes Mellitus type II Most recent A1c 05/21/2024: 6.2 Plan: Management by primary team #Perforated gastric ulcer #Pneumoperitoneum #Peritonitis secondary to perforated gastric ulcer #Abdominal Abscess, s/p percutaneous drainage x2 Patient found to have tender abdomen, rigidity in the epigastrium, chest x-ray showed elevation of hemidiaphragm, CT abdomen showed pneumoperitoneum, concern for perforated viscus, general surgeon Dr. Santana was consulted for emergency laparotomy and possible repair of perforated gastric ulcer. Repeat CT abd/pel on 05/20 revealed Pneumoperitoneum, orogastric tube in the stomach, mild free fluid adjacent to the stomach and anterior to the pancreas. s/p Exploratory laparotomy & repair of perforated gastric ulcer - 05/15. 06/01/24: Overnight there was concern of wound dehiscence. Discussed with general surgeon per surgery superior aspect of the wound was dehiscent after removal of aixa.Surgery removal of BALAJI drain on 06/01. Repeat CT on 06/01- More pronounced fluid collection in the left abdomen below the spleen, 8.9 x 6.4cm, free fluid in the abdomen and pelvis, and Ascites -Abscess culture from 05/25 grew edna albicans ?Repeat CT abdomen pelvis shows abscess collection lower left abdomen has markedly decreased in size and the accordion drains have no output this morning Plan: Management by primary hospitalist team #Acute blood loss anemia, stable Likely related to perforated ulcer Hgb stable ~9.0 Iron studies unremarkable (TIBC, Iron), will hold off on giving iron Given Erythropoeitin by Nephrology Plan: Management by primary hospitalist team #Acute tubular necrosis, requiring hemodialysis #Acute Hypoxic Respiratory failure #Acute Upper GI bleed - stable #Hyperlipidemia #Acute blood loss anemia, stable #Acute encephalopathy-resolved #Septic Shock - resolved #Hypoosmolar Hyponatremia, resolved Above managed by primary hospitalist team Patient seen and care discussed with my attending physician, Dr. Susan Mathews, PGY-1
--- NOTE | 2024-06-05 08:57 | PC.SS ---
Addendum entered by Yolande Montes 06/05/24 15:21: SS spoke to Monie at [facility] and informed her pt is possible d/c tomorrow if accordian drains are removed. TPN has been discontinued. SS has faxed perma cath information to upon their request. Dialysis chair time is pending. Monie has confirmed inquiry for dialysis chair time has been received. Original Note: Follow up note: Pt is on TPN, has 2 accordian drains, and is getting dialysis today. Pt is new to dialysis and will be established with [facility]. SS spoke to patient's Roberto amato to discuss options to home or SNF. Physician residents are recommending SNF placement. SonRoberto is aware. Son does not have a preference.
[2024-06-05] MEDS: PANTOPRAZOLE INJ 40 MG VIAL IVP ×2 (09:21→21:18)
[2024-06-05] MEDS: INSULIN GLARGINE (Lantus) 5 UNIT/0.05 ML (PER 5 UNITS) 12 UNIT SC (09:21)
[2024-06-05] MEDS: TIMOLOL OP SOL 0.5% 5 ML BTL 1 DROP BOTH EYES (09:22)
[2024-06-05] MEDS: AMIODARONE HCL 200 MG TABLET PO ×2 (09:22→21:17)
[2024-06-05] MEDS: FLUCONAZOLE 100 MG TABLET 400 MG PO (09:22)
--- NOTE | 2024-06-05 11:13 | PD.IDPROG ---
Subjective Subjective Interval history: remains on flucon, you get the same bang from 200/day of po flucon as 400 in ckd. so keep that in mind. Exam Vital Signs Temp Pulse Resp BP Pulse Ox O2 Del Method O2 Flow Rate 97.0 F 104 H 23 H 139/80 H 98 Nasal Cannula 2 06/05/24 08:00 06/05/24 09:22 06/05/24 08:00 06/05/24 09:22 06/05/24 08:00 06/05/24 08:00 06/05/24 08:00 FiO2 4 06/05/24 08:00 Narrative Exam benign abd, on room air. hd line in L chest noted. on tpn yet. Objective - Internal Medicine Labs 06/05/24 04:49 06/05/24 04:49 Labs: Laboratory Results - last 24 hr 06/05/24 04:49 WBC 14.2 H RBC 3.39 L Hgb 9.0 L Hct 27.9 L MCV 82 MCH 26.5 MCHC 32.3 RDW Std Deviation 55.2 H Plt Count 313 Neut % (Auto) 64 Lymph % (Auto) 17 [place] % (Auto) 6 Eos % (Auto) 3 Baso % (Auto) 1 Neut # (Auto) 9.0 H Lymph # (Auto) 2.5 [place] # (Auto) 0.9 H Eos # (Auto) 0.4 Baso # (Auto) 0.2 Immature Gran # (Auto) 1.28 H Absolute Nucleated RBC 0.07 H Immature Gran % 9 H Nucleated RBC % 1 H APTT 54.2 H Sodium 129 L Potassium 3.8 Chloride 94 L Carbon Dioxide 24.7 Anion Gap 10 BUN 38 H Creatinine 4.7 H* D Estim Creat Clear Calc 10.1 L eGFR 10 L* BUN/Creatinine Ratio 8 L Glucose 134 H Calculated Osmolality 269 L Calcium 9.6 Corrected Calcium 10.1 Phosphorus 3.1 Magnesium 1.7 Total Bilirubin 0.5 AST 21 ALT < 7 L Alkaline Phosphatase 137 H Total Protein 6.8 Albumin 3.4 Globulin 3.4 Albumin/Globulin Ratio 1.0 L ABG Interpretation ABG results: 05/13/24 05/15/24 05/15/24 08:29 15:28 16:03 ABG pH 7.39 7.05 L* D 7.17 L* D ABG pCO2 31 L 63 H D 45 D ABG pO2 78 L 38 L* D 84 D ABG HCO3 19 L 18 L 16 L ABG O2 Saturation 96 59 L 96 ABG Base Excess -5 L -12 L -11 L VBG pH VBG pCO2 VBG pO2 VBG Base Excess 05/16/24 05/17/24 05/18/24 04:38 04:03 04:20 ABG pH 7.28 L D 7.38 D 7.49 H D ABG pCO2 34 D 28 L 30 L ABG pO2 96 85 66 L ABG HCO3 16 L 17 L 23 ABG O2 Saturation 98 97 94 ABG Base Excess -10 L -8 L 0 VBG pH VBG pCO2 VBG pO2 VBG Base Excess 05/19/24 05/20/24 05/21/24 09:05 06:05 22:35 ABG pH 7.30 L D 7.41 D ABG pCO2 49 H D 42 ABG pO2 63 L 63 L ABG HCO3 24 27 H ABG O2 Saturation 91 93 ABG Base Excess -3 2 VBG pH 7.31 L VBG pCO2 50 VBG pO2 39 VBG Base Excess -2 05/26/24 05/29/24 04:17 12:28 ABG pH 7.38 7.42 ABG pCO2 42 35 ABG pO2 81 L 67 L ABG HCO3 25 23 ABG O2 Saturation 97 95 ABG Base Excess 0 -2 VBG pH VBG pCO2 VBG pO2 VBG Base Excess Assessment & Plan A&P Narrative abd abscess, stain neg. later grew c albicans so on flucon now here since 05/13.usual rx for most things is 7d. left on merrem thru weekend but collection in abd eventually grew a yeast, so ok for another 7d rx will see again if requested Time Spent With Patient Time: Total time spent is greater than 50% in coordination of care (as documented) at patient's floor/unit and/or counseling patient:
[2024-06-05] MEDS: MIDODRINE 5 MG TABLET 10 MG PO ×2 (12:17→16:27)
--- NOTE | 2024-06-05 14:58 | PD.RESPRO ---
Documentation for date of: 06/05/24 Subjective Subjective Interval history: 06/04: no acute overnight events. Pt is seen and examined at bedside, Pts SOB has significantly improved. She complains of some abdominal pain but endorses improvement. overnight pt. had 10cc of pus in the accordian drain, 1 bowel movement. She is able to tolerate some oral diet, will consider discontinuing TPN as it maybe the contributory factor to leukocytosis. Repeat CT yesterday showed abscess collection in the left lower abdomen has markedly decreased in size. the accordions drains have no output this morning. Per Dr. Santana, will plan to remove the drains today. Pt. is scheduled to undergo dialysis today. Still waiting for chair for outpatient dialysis. Physical therapy is working on strengthening lower extremities. Patient's family would like to take her home with home health rather than rehab. Pt. has no over complains. Exam Vital Signs Temp Pulse Resp BP Pulse Ox O2 Del Method O2 Flow Rate 97.0 F 86 18 109/67 99 Nasal Cannula 2 06/05/24 12:00 06/05/24 12:17 06/05/24 12:00 06/05/24 12:17 06/05/24 12:00 06/05/24 12:00 06/05/24 12:00 FiO2 4 06/05/24 12:00 Narrative Exam GENERAL: A&Ox3 . Awake, moaning in pain NEURO: no focal neurological deficits HEENT: Atraumatic, Normocephalic. mucous membranes moist. Eyes open, symmetrical, & clear HEART: Normal Heart Sounds LUNGS: clear to auscultation bilaterally, no wheezing, rhonci or crackles ABDOMEN: soft, non-distended, non-tender, bowel sounds heard, no guarding or rebound tenderness, incision site is clean. accordion and percutaneous drains in place SKIN: No Rash or ecchymoses EXTREMITIES: No edema, tenderness, able to move all 4 extremities, pedal pulses palpated Objective Labs 06/06/24 04:46 06/06/24 04:46 Labs: Laboratory Results - last 24 hr 06/05/24 04:49 WBC 14.2 H RBC 3.39 L Hgb 9.0 L Hct 27.9 L MCV 82 MCH 26.5 MCHC 32.3 RDW Std Deviation 55.2 H Plt Count 313 Neut % (Auto) 64 Lymph % (Auto) 17 [place] % (Auto) 6 Eos % (Auto) 3 Baso % (Auto) 1 Neut # (Auto) 9.0 H Lymph # (Auto) 2.5 [place] # (Auto) 0.9 H Eos # (Auto) 0.4 Baso # (Auto) 0.2 Immature Gran # (Auto) 1.28 H Absolute Nucleated RBC 0.07 H Immature Gran % 9 H Nucleated RBC % 1 H APTT 54.2 H Sodium 129 L Potassium 3.8 Chloride 94 L Carbon Dioxide 24.7 Anion Gap 10 BUN 38 H Creatinine 4.7 H* D Estim Creat Clear Calc 10.1 L eGFR 10 L* BUN/Creatinine Ratio 8 L Glucose 134 H Calculated Osmolality 269 L Calcium 9.6 Corrected Calcium 10.1 Phosphorus 3.1 Magnesium 1.7 Total Bilirubin 0.5 AST 21 ALT < 7 L Alkaline Phosphatase 137 H Total Protein 6.8 Albumin 3.4 Globulin 3.4 Albumin/Globulin Ratio 1.0 L ABG Interpretation ABG results: 05/13/24 05/15/24 05/15/24 08:29 15:28 16:03 ABG pH 7.39 7.05 L* D 7.17 L* D ABG pCO2 31 L 63 H D 45 D ABG pO2 78 L 38 L* D 84 D ABG HCO3 19 L 18 L 16 L ABG O2 Saturation 96 59 L 96 ABG Base Excess -5 L -12 L -11 L VBG pH VBG pCO2 VBG pO2 VBG Base Excess 05/16/24 05/17/24 05/18/24 04:38 04:03 04:20 ABG pH 7.28 L D 7.38 D 7.49 H D ABG pCO2 34 D 28 L 30 L ABG pO2 96 85 66 L ABG HCO3 16 L 17 L 23 ABG O2 Saturation 98 97 94 ABG Base Excess -10 L -8 L 0 VBG pH VBG pCO2 VBG pO2 VBG Base Excess 05/19/24 05/20/24 05/21/24 09:05 06:05 22:35 ABG pH 7.30 L D 7.41 D ABG pCO2 49 H D 42 ABG pO2 63 L 63 L ABG HCO3 24 27 H ABG O2 Saturation 91 93 ABG Base Excess -3 2 VBG pH 7.31 L VBG pCO2 50 VBG pO2 39 VBG Base Excess -2 05/26/24 05/29/24 04:17 12:28 ABG pH 7.38 7.42 ABG pCO2 42 35 ABG pO2 81 L 67 L ABG HCO3 25 23 ABG O2 Saturation 97 95 ABG Base Excess 0 -2 VBG pH VBG pCO2 VBG pO2 VBG Base Excess Quality Measures Quality Measures VTE prophylaxis (Heparin) Advance care planning discussed with:: patient and child Assessment & Plan Assessment Current Active Medications: Generic Name Dose Route Start Last Admin Trade Name Freq PRN Reason Stop Dose Admin Hydrocodone Bitart/Acetaminophen 1 tab 06/03/24 12:00 06/05/24 12:17 Hydrocodone/Apap 5/325 Tablet PO 06/08/24 11:59 1 tab Q6HR ANGELICA Administration Albuterol/Ipratropium 3 ml 05/27/24 18:08 06/05/24 07:27 Albuterol/Ipratropium (Duoneb) Rt Jimena 3 Ml Nebu INH 06/26/24 18:07 3 ml Q2HR PRN Administration SHORTNESS OF BREATH OR WHEEZE Amiodarone HCl 200 mg 05/29/24 15:00 06/05/24 09:22 Amiodarone Hcl 200 Mg Tablet PO 06/28/24 14:59 200 mg BID ANGELICA Administration Benzocaine 1 lozenge 05/31/24 11:53 05/31/24 12:54 Benzocaine/Menthol 1 Lozenge PO 06/30/24 11:52 1 lozenge Q4HR PRN Administration Sore throat Dextrose 25 ml 05/24/24 15:43 Dextrose 50%-Water Inj 50 Ml Syringe IV 06/23/24 15:42 Q15MIN PRN BG 50-70 responsive npo pt Dextrose 50 ml 05/24/24 15:43 Dextrose 50%-Water Inj 50 Ml Syringe IV 06/23/24 15:42 Q15MIN PRN BG <50 OR BG <70 & pt unresponsive Fluconazole 400 mg 06/02/24 09:00 06/05/24 09:22 Fluconazole 100 Mg Tablet PO 06/09/24 08:59 400 mg QDAY ANGELICA Administration Glucagon 1 mg 05/24/24 15:43 Glucagon Inj 1 Mg Vial IM Q15MIN PRN BG <70, and no IV access Heparin Sodium (Porcine) 3,500 unit 06/03/24 15:24 06/03/24 17:59 Heparin Sod Inj 1000 Unit/Ml Vial 10 Ml INDWELLCAT 06/17/24 15:23 3,500 unit X1 PRN Administration DIALYSIS Albumin Human 25 gm in 100 mls @ 100 mls/min 05/25/24 10:07 05/30/24 19:13 Albuminar-25 Ivpb IV Infused PRN PRN Infusion DIALYSIS Heparin Sodium/Dextrose 25,000 unit in 250 mls @ 9.384 mls/hr 06/02/24 19:15 06/05/24 08:04 Heparin In D5w Ivpb IV 06/06/24 18:14 12 units/kg/hr .Q24H ANGELICA 9.384 mls/hr Administration Protocol 12 UNITS/KG/HR Insulin Glargine 12 unit 05/25/24 09:00 06/05/24 09:21 Insulin Glargine (Lantus) 5 Unit/0.05 Ml (Per 5 Units) SC 06/24/24 08:59 12 unit QDAY ANGELICA Administration Insulin Human Lispro 0 unit 05/24/24 18:00 06/05/24 12:16 Insulin Lispro (Admelog) 1 Unit/0.01 Ml Unit SC 06/23/24 17:59 Not Given Q6HR [facility] Protocol Lidocaine 1 patch 05/30/24 09:16 06/01/24 19:01 Lidocaine 5% 1 Patch TOP 06/29/24 09:15 1 patch DAILY PRN Administration BACK PAIN Midodrine 10 mg 06/01/24 20:21 06/05/24 12:17 Midodrine 5 Mg Tablet PO 06/29/24 11:59 10 mg QID ANGELICA Administration Ondansetron HCl 4 mg 05/13/24 11:58 05/14/24 12:31 Ondansetron Inj 2 Mg/Ml Inj 2 Ml IV 06/12/24 11:57 4 mg Q6H PRN Administration NAUSEA OR VOMITING Protocol Pantoprazole Sodium 40 mg 05/15/24 21:00 06/05/24 09:21 Pantoprazole Inj 40 Mg Vial IVP 06/14/24 20:59 40 mg BID ANGELICA Administration Pharmacy Consult 1 each 05/16/24 10:27 Pharmacy Renal Dose Adjustment 1 Ea XX 06/15/24 10:26 PRN PRN CONSULT Sodium Chloride 3 ml 05/24/24 19:00 Sodium Chloride Rt Jimena 0.9% 3 Ml Nebu INH 06/23/24 18:59 PRN PRN SOLN Timolol Maleate 1 drop 05/28/24 18:15 06/05/24 09:22 Timolol Op Jimena 0.5% 5 Ml Btl BOTH EYES 06/27/24 18:14 1 drop DAILY ANGELICA Administration Plan Ms. Castellanos is a 69-year-old female with past medical history significant for hypertension, diabetes and history of gastric ulcers who presented to the ED on 05/13/2024 after she was found unconscious on the floor. Per chart reviewing prior to this unconsciousness patient was having abdominal pain and generalized weakness with diarrhea and shortness of breath for 2 days. Patient was admitted to the hospital for treatment and management of sepsis secondary to pneumonia. Patient was given 1 L normal saline and started on ceftriaxone and azithromycin. patient underwent ex lap surgery for perforated gastric ulcer. Patient remained intubated postop and was upgraded to the ICU. Patient continues to be on dialysis after downgrade, has BALAJI and accordion drain intact, completed bowel rest, was started on dysphagia 1 diet, surgery following case closely, will continue to monitor. #Perforated gastric ulcer #Pneumoperitoneum #Peritonitis secondary to perforated gastric ulcer #Abdominal Abscess, s/p percutaneous drainage x2 #Leukocytosis Patient found to have tender abdomen, rigidity in the epigastrium, chest x-ray showed elevation of hemidiaphragm, CT abdomen showed pneumoperitoneum, concern for perforated viscus, general surgeon Dr. Santana was consulted for emergency laparotomy and possible repair of perforated gastric ulcer. Repeat CT abd/pel on 05/20 revealed Pneumoperitoneum, orogastric tube in the stomach, mild free fluid adjacent to the stomach and anterior to the pancreas. s/p Exploratory laparotomy & repair of perforated gastric ulcer - 05/15. 06/01/24: Overnight there was concern of wound dehiscence. Discussed with general surgeon per surgery superior aspect of the wound was dehiscent after removal of aixa.Surgery removal of BALAJI drain on 06/01. Repeat CT on 06/01- More pronounced fluid collection in the left abdomen below the spleen, 8.9 x 6.4cm, free fluid in the abdomen and pelvis, and Ascites -Abscess culture from 05/25 grew edna albicans -Repeat CT A/P 06/05: abscess collection in the left lower abdomen has markedly decreased in size. the accordions drains have no output this morning. Plan: ?Patient completed antibiotic therapy, Meropenem, discontinued per ID Recommendations -continue fluconazole for additional 7 days 06/01- -percutaneous abscess drain catheter placed 06/02 -Pending Abscess Culture from drain 06/02 ?Pain control Fentanyl 25 mcg every 6 hours as needed. And scheduled [place] 5 mg every 6 hours ?disontinue with TPN 06/05 Pt. is able to consumed atleast 50% of dysphagia 1 diet -Started on pureed diet, will advance as tolerated ?June 03, 2024: Patient was made n.p.o. by overnight team due to abdominal distention but we resumed her diet and p.o. medications. -accordian drains have zero output this morning ad 10cc over night- per surgery, will remove the drains today #New onset A-fib with RVR -Likely secondary to shock in the setting of abdominal surgery -EKG findings consistent with A-fib -Was on Amiodarone 200 twice daily for new onset Afib, but as she was in AFib with RVR. Plan: ?Cardiology consulted, appreciate recs -Currently on oral amiodarone 200mg ?Continue with heparin drip as patient may need surgical intervention #Acute tubular necrosis #Anuria -2/2 septic shock -Patient has 0 urine production -Baseline Cr appears to be 0.7 Plan: ?Patient underwent HD fluid removal and removed 2.1 L on 05/18 and 1.5 L on 05/19, 2L fluid removed 05/21, 2.5 L fluid removed on 05/22 , 3L fluid removed on 05/23, 3L fluid removed 05/25, 2L removed 05/26, 1 L removed 05/29, 1.5 L removed 05/30, 06/01 2L fluid removed. -permanent hemodialysis cath placed on 06/02/24 -Started on midodrine 10 mg 4 times daily as patient has difficulty tolerating dialysis, blood pressure drops. -Renally dose medications and avoid nephrotoxic agents -repeat labs in am -Nephrology following #Acute exacerbation of HFpEF # HFpEF EF 55 to 60% -echo 05/16 -estimated EF of 55 to 60%, stage I diastolic dysfunction noted, Moderate to severe posterior MAC -Pt presented with SOB and 2+ edema in LE -elevated BNP from 304 --> 1110 -HD in the setting of anuria -holding guideline directed medical therapy due to shock, will resume when able -Continue dialysis #Acute Hypoxic Respiratory failure likely multifactorial -2/2 to pulmonary edema in the setting of volume overload 2/2 ATN due to shock leading to oligoanuria versus bibasilar pneumonia -Further complicated by bilateral lung atelectasis in the setting of recent abdominal surgery and sedatives use -Patient was intubated and on mechanical ventilation (05/15) and extubated 05/18/2024, currently saturating 95-97 % on 5 L NC -Duonebs prn #Acute Upper GI bleed - stable -Most likely secondary to perforated gastric ulcer -Patient had a single episode of black tarry stool today-likely setting of recent abdominal surgery -Continue iv Protonix. -Will monitor for alarm signs of active bleeding with melena or hematochezia #Hx of Diabetes Mellitus type II - A1C 6.3 % 05/21/2024 - Hold home glipizide and januvia - Plan: Continue to monitor blood sugars - Insulin sliding scale ordered with lantus 12 units #Hyperlipidemia Plan: -Resume patient's medication #Primary Hypertension Holding on resuming home blood pressure medicines at this time #Acute blood loss anemia, stable 2/2 perforated ulcer- S/P surgical repair Hgb stable 9.6 Hct 28.3 patient received 2 units of PRBC 05/18 due to acutely drop in Hgb below 7. No signs of active bleeding. Plan: -Continue to monitor daily CBC. transfuse for hemoglobin less than 7. # Acute encephalopathy-resolved -Likely multifactorial secondary to sepsis versus metabolic versus neurologic versus medication -Patient is awake and alert and follows commands. Patient is able to respond to yes or no questions verbally #Shock - resolved #Hypoosmolar Hyponatremia, resolved Disposition: Telemetry DVT prophylaxis: Heparin drip GI prophylaxis:Protonix 40 BID Diet: Dysphagia 1 diet and TPN Lines: Accordion drains in palce, [place] CODE STATUS: Full Assessment and plan discussed with my attending physician Dr. Esa Rivera (PGY-1)- Internal medicine resident Attending Provider Attestation/Addendum 69-year-old female with multiple comorbidities including hypertension, type 2 diabetes mellitus and previous history of gastric ulcers who presented to the ER on 05/13/2024 after being found unconscious. Subsequently, patient was admitted for sepsis secondary to pneumonia and found to have acute blood loss anemia and subsequently started developing abdominal pain and imaging noted pneumoperitoneum and subsequently underwent emergency exploratory laparotomy and repair of gastric ulcer on 05/15/2024. Throughout the course of hospitalization, patient's course was complicated by intra-abdominal abscesses and cultures positive for Edna and subsequently underwent drainage and currently on fluconazole. Furthermore, noted to have A-fib with RVR and subsequently transition to amiodarone and anticoagulation. Furthermore, patient creatinine function worsening currently on hemodialysis via a TDC. As of now, plan to obtain imaging to evaluate abscess and plan to remove drainage. Continue fluconazole and hemodialysis per nephrology team. Plan to discontinue TPN as patient is eating. I reviewed above note and agree with findings and plans. I have also personally examined the patient with medicine team and went over assessment and plan with medical team including international first officer and resident physician.
--- NOTE | 2024-06-05 15:12 | ESPR_ITS ---
Documentation for date of: 06/05/24 Subjective Subjective Interval history: 06/05/2024 Patient was seen and examined at bedside. No new symptoms at this time. Urine output remain 0, her serum sodium went down from 131-129 we will keep monitoring, serum creatinine today is 4.7, BUN is 138 Albumin 3.4 patient is scheduled for dialysis today. Magnesium noted to be 1.7 will be corrected by the primary team. Exam Vital Signs Temp Pulse Resp BP Pulse Ox O2 Del Method O2 Flow Rate 97.0 F 86 18 109/67 99 Nasal Cannula 2 06/05/24 12:00 06/05/24 12:17 06/05/24 12:00 06/05/24 12:17 06/05/24 12:00 06/05/24 12:00 06/05/24 12:00 FiO2 4 06/05/24 12:00 Narrative Exam PatientGEN: AOx3, seems to be correctable, HEENT: NC/AC, oral mucosa moist, neck supple CVS: RRR, S1-S2 present, no murmurs appreciated RESP: CTAB GI: soft,non distended, non tender, NBS, still has 2 drains seems to be emptied with minimal output. MSK: able to move all 4 limbs, no lower extremity edema SKIN: warm and dry TRAIN STARTER: CN II-XII and Sensation grossly intact. Objective Labs 06/06/24 04:46 06/06/24 04:46 Labs: Laboratory Results - last 24 hr 06/05/24 04:49 WBC 14.2 H RBC 3.39 L Hgb 9.0 L Hct 27.9 L MCV 82 MCH 26.5 MCHC 32.3 RDW Std Deviation 55.2 H Plt Count 313 Neut % (Auto) 64 Lymph % (Auto) 17 [place] % (Auto) 6 Eos % (Auto) 3 Baso % (Auto) 1 Neut # (Auto) 9.0 H Lymph # (Auto) 2.5 [place] # (Auto) 0.9 H Eos # (Auto) 0.4 Baso # (Auto) 0.2 Immature Gran # (Auto) 1.28 H Absolute Nucleated RBC 0.07 H Immature Gran % 9 H Nucleated RBC % 1 H APTT 54.2 H Sodium 129 L Potassium 3.8 Chloride 94 L Carbon Dioxide 24.7 Anion Gap 10 BUN 38 H Creatinine 4.7 H* D Estim Creat Clear Calc 10.1 L eGFR 10 L* BUN/Creatinine Ratio 8 L Glucose 134 H Calculated Osmolality 269 L Calcium 9.6 Corrected Calcium 10.1 Phosphorus 3.1 Magnesium 1.7 Total Bilirubin 0.5 AST 21 ALT < 7 L Alkaline Phosphatase 137 H Total Protein 6.8 Albumin 3.4 Globulin 3.4 Albumin/Globulin Ratio 1.0 L ABG Interpretation ABG results: 05/13/24 05/15/24 05/15/24 08:29 15:28 16:03 ABG pH 7.39 7.05 L* D 7.17 L* D ABG pCO2 31 L 63 H D 45 D ABG pO2 78 L 38 L* D 84 D ABG HCO3 19 L 18 L 16 L ABG O2 Saturation 96 59 L 96 ABG Base Excess -5 L -12 L -11 L VBG pH VBG pCO2 VBG pO2 VBG Base Excess 05/16/24 05/17/24 05/18/24 04:38 04:03 04:20 ABG pH 7.28 L D 7.38 D 7.49 H D ABG pCO2 34 D 28 L 30 L ABG pO2 96 85 66 L ABG HCO3 16 L 17 L 23 ABG O2 Saturation 98 97 94 ABG Base Excess -10 L -8 L 0 VBG pH VBG pCO2 VBG pO2 VBG Base Excess 05/19/24 05/20/24 05/21/24 09:05 06:05 22:35 ABG pH 7.30 L D 7.41 D ABG pCO2 49 H D 42 ABG pO2 63 L 63 L ABG HCO3 24 27 H ABG O2 Saturation 91 93 ABG Base Excess -3 2 VBG pH 7.31 L VBG pCO2 50 VBG pO2 39 VBG Base Excess -2 05/26/24 05/29/24 04:17 12:28 ABG pH 7.38 7.42 ABG pCO2 42 35 ABG pO2 81 L 67 L ABG HCO3 25 23 ABG O2 Saturation 97 95 ABG Base Excess 0 -2 VBG pH VBG pCO2 VBG pO2 VBG Base Excess Quality Measures Quality Measures VTE prophylaxis (Heparin) Advance care planning discussed with:: patient Assessment & Plan Assessment Current Active Medications: Generic Name Dose Route Start Last Admin Trade Name Freq PRN Reason Stop Dose Admin Hydrocodone Bitart/Acetaminophen 1 tab 06/03/24 12:00 06/05/24 12:17 Hydrocodone/Apap 5/325 Tablet PO 06/08/24 11:59 1 tab Q6HR ANGELICA Administration Albuterol/Ipratropium 3 ml 05/27/24 18:08 06/05/24 07:27 Albuterol/Ipratropium (Duoneb) Rt Jimena 3 Ml Nebu INH 06/26/24 18:07 3 ml Q2HR PRN Administration SHORTNESS OF BREATH OR WHEEZE Amiodarone HCl 200 mg 05/29/24 15:00 06/05/24 09:22 Amiodarone Hcl 200 Mg Tablet PO 06/28/24 14:59 200 mg BID ANGELICA Administration Benzocaine 1 lozenge 05/31/24 11:53 05/31/24 12:54 Benzocaine/Menthol 1 Lozenge PO 06/30/24 11:52 1 lozenge Q4HR PRN Administration Sore throat Dextrose 25 ml 05/24/24 15:43 Dextrose 50%-Water Inj 50 Ml Syringe IV 06/23/24 15:42 Q15MIN PRN BG 50-70 responsive npo pt Dextrose 50 ml 05/24/24 15:43 Dextrose 50%-Water Inj 50 Ml Syringe IV 06/23/24 15:42 Q15MIN PRN BG <50 OR BG <70 & pt unresponsive Fluconazole 400 mg 06/02/24 09:00 06/05/24 09:22 Fluconazole 100 Mg Tablet PO 06/09/24 08:59 400 mg QDAY ANGELICA Administration Glucagon 1 mg 05/24/24 15:43 Glucagon Inj 1 Mg Vial IM Q15MIN PRN BG <70, and no IV access Heparin Sodium (Porcine) 3,500 unit 06/03/24 15:24 06/03/24 17:59 Heparin Sod Inj 1000 Unit/Ml Vial 10 Ml INDWELLCAT 06/17/24 15:23 3,500 unit X1 PRN Administration DIALYSIS Albumin Human 25 gm in 100 mls @ 100 mls/min 05/25/24 10:07 05/30/24 19:13 Albuminar-25 Ivpb IV Infused PRN PRN Infusion DIALYSIS Heparin Sodium/Dextrose 25,000 unit in 250 mls @ 9.384 mls/hr 06/02/24 19:15 06/05/24 08:04 Heparin In D5w Ivpb IV 06/06/24 18:14 12 units/kg/hr .Q24H ANGELICA 9.384 mls/hr Administration Protocol 12 UNITS/KG/HR Insulin Glargine 12 unit 05/25/24 09:00 06/05/24 09:21 Insulin Glargine (Lantus) 5 Unit/0.05 Ml (Per 5 Units) SC 06/24/24 08:59 12 unit QDAY ANGELICA Administration Insulin Human Lispro 0 unit 05/24/24 18:00 06/05/24 12:16 Insulin Lispro (Admelog) 1 Unit/0.01 Ml Unit SC 06/23/24 17:59 Not Given Q6HR ANGELICA Protocol Lidocaine 1 patch 05/30/24 09:16 06/01/24 19:01 Lidocaine 5% 1 Patch TOP 06/29/24 09:15 1 patch DAILY PRN Administration BACK PAIN Midodrine 10 mg 06/01/24 20:21 06/05/24 12:17 Midodrine 5 Mg Tablet PO 06/29/24 11:59 10 mg QID ANGELICA Administration Ondansetron HCl 4 mg 05/13/24 11:58 05/14/24 12:31 Ondansetron Inj 2 Mg/Ml Inj 2 Ml IV 06/12/24 11:57 4 mg Q6H PRN Administration NAUSEA OR VOMITING Protocol Pantoprazole Sodium 40 mg 05/15/24 21:00 06/05/24 09:21 Pantoprazole Inj 40 Mg Vial IVP 06/14/24 20:59 40 mg BID ANGELICA Administration Pharmacy Consult 1 each 05/16/24 10:27 Pharmacy Renal Dose Adjustment 1 Ea XX 06/15/24 10:26 PRN PRN CONSULT Sodium Chloride 3 ml 05/24/24 19:00 Sodium Chloride Rt Jimena 0.9% 3 Ml Nebu INH 06/23/24 18:59 PRN PRN SOLN Timolol Maleate 1 drop 05/28/24 18:15 06/05/24 09:22 Timolol Op Jimena 0.5% 5 Ml Btl BOTH EYES 06/27/24 18:14 1 drop DAILY ANGELICA Administration Plan Summary: A 69-year-old female patient with past medical history of CKD, hypertension, prediabetes, was admitted to the hospital due to sepsis secondary to pneumonia, found to have perforated peptic ulcer. Developed septic shock and was admitted to the ICU. Patient was downgraded to telemetry however patient still has ADILSON secondary to acute tubular necrosis and shock. Assessment and plan #Acute kidney injury #Acute tubular necrosis secondary to septic shock #Anasarca Patient developed septic shock which may resulted in acute tubular necrosis. At this time patient is getting dialysis through [facility]. Patient getting TPN as the patient developed abdominal abscess secondary to GI leak most likely. At this time patient still produces 0 urine output. Plan ? Hyponatremia will be corrected with dialysis today ? Dialysis today ? Renally dose medications including fluconazole ? Strict in and out ? Close monitoring for signs and symptoms of fluid overload as the patient is getting TPN. ? Daily renal panel #Peritonitis secondary to perforated gastric ulcer #Acute Upper GI bleed #Intra-abdominal abscess #Candidal abscess. #Metabolic acidosis, resolved #Lactic Acidosis #Acute Encephalopathy #Acute ischemic stroke #Distributive shock #Acute decompensated HF #Elevated Troponin #Hyperlipidemia #Primary Hypertension #Acute Hypoxic Respiratory failure #Pneumoperitoneum #Diabetes Mellitus type II #Acute anemia Plan ? Follow primary team recommendations Thank you for consultation please not hesitate to call will reach out if you have any question or concerns - Patient's plan and care discussed with my attending, Dr. Mata Sifuentes MD Internal Medicine PGY-2 Attending Provider Attestation/Addendum Patient seen and examined with resident physician Dr. Barton. Note reviewed, agree with findings and recommendations. Spoke to primary team-discharge planning pending Outpatient dialysis arranged Dialysis scheduled for tomorrow
--- NOTE | 2024-06-05 15:41 | PC.SS ---
SS has sent inquiry to the local SNF using [facility] and have informed them pt is new dialysis and is requiring transportation to dialysis.
[2024-06-05] MEDS: Magnesium Sulfate 4 GM Ivpb 4 GM/50 ML BAG IV (16:26)
--- NOTE | 2024-06-05 19:32 | ESPR_ITS ---
Documentation for date of: 06/05/24 Subjective Subjective Interval history: Somewhat more improved eating Hemoglobin hematocrit 9.0 and 27.9 Slight elevation of the WBC count at 14.2 More alert Exam Vital Signs Temp Pulse Resp BP Pulse Ox O2 Del Method O2 Flow Rate 96.8 F 90 15 109/48 L 100 Nasal Cannula 2 06/05/24 16:00 06/05/24 16:27 06/05/24 16:00 06/05/24 16:27 06/05/24 16:00 06/05/24 16:00 06/05/24 16:00 FiO2 4 06/05/24 16:00 Routine Respiratory Exam Comments: Basal crepitations Routine Abdominal Exam Comments: Positive bowel sounds Objective Labs 06/05/24 04:49 06/05/24 04:49 Labs: Laboratory Results - last 24 hr 06/05/24 04:49 WBC 14.2 H RBC 3.39 L Hgb 9.0 L Hct 27.9 L MCV 82 MCH 26.5 MCHC 32.3 RDW Std Deviation 55.2 H Plt Count 313 Neut % (Auto) 64 Lymph % (Auto) 17 Desha % (Auto) 6 Eos % (Auto) 3 Baso % (Auto) 1 Neut # (Auto) 9.0 H Lymph # (Auto) 2.5 Desha # (Auto) 0.9 H Eos # (Auto) 0.4 Baso # (Auto) 0.2 Immature Gran # (Auto) 1.28 H Absolute Nucleated RBC 0.07 H Immature Gran % 9 H Nucleated RBC % 1 H APTT 54.2 H Sodium 129 L Potassium 3.8 Chloride 94 L Carbon Dioxide 24.7 Anion Gap 10 BUN 38 H Creatinine 4.7 H* D Estim Creat Clear Calc 10.1 L eGFR 10 L* BUN/Creatinine Ratio 8 L Glucose 134 H Calculated Osmolality 269 L Calcium 9.6 Corrected Calcium 10.1 Phosphorus 3.1 Magnesium 1.7 Total Bilirubin 0.5 AST 21 ALT < 7 L Alkaline Phosphatase 137 H Total Protein 6.8 Albumin 3.4 Globulin 3.4 Albumin/Globulin Ratio 1.0 L Impressions Impression: # Perforated gastric ulcer requiring surgical intervention # Slow postoperative recovery Left lower abdomen abscess requiring catheter drainage by IR# ABG Interpretation ABG results: 05/13/24 05/15/24 05/15/24 08:29 15:28 16:03 ABG pH 7.39 7.05 L* D 7.17 L* D ABG pCO2 31 L 63 H D 45 D ABG pO2 78 L 38 L* D 84 D ABG HCO3 19 L 18 L 16 L ABG O2 Saturation 96 59 L 96 ABG Base Excess -5 L -12 L -11 L VBG pH VBG pCO2 VBG pO2 VBG Base Excess 05/16/24 05/17/24 05/18/24 04:38 04:03 04:20 ABG pH 7.28 L D 7.38 D 7.49 H D ABG pCO2 34 D 28 L 30 L ABG pO2 96 85 66 L ABG HCO3 16 L 17 L 23 ABG O2 Saturation 98 97 94 ABG Base Excess -10 L -8 L 0 VBG pH VBG pCO2 VBG pO2 VBG Base Excess 05/19/24 05/20/24 05/21/24 09:05 06:05 22:35 ABG pH 7.30 L D 7.41 D ABG pCO2 49 H D 42 ABG pO2 63 L 63 L ABG HCO3 24 27 H ABG O2 Saturation 91 93 ABG Base Excess -3 2 VBG pH 7.31 L VBG pCO2 50 VBG pO2 39 VBG Base Excess -2 05/26/24 05/29/24 04:17 12:28 ABG pH 7.38 7.42 ABG pCO2 42 35 ABG pO2 81 L 67 L ABG HCO3 25 23 ABG O2 Saturation 97 95 ABG Base Excess 0 -2 VBG pH VBG pCO2 VBG pO2 VBG Base Excess Assessment & Plan A&P Narrative abd abscess, stain neg. later grew c albicans so on flucon now here since 05/13.usual rx for most things is 7d. left on merrem thru weekend but collection in abd eventually grew a yeast, so ok for another 7d rx will see again if requested Time Spent With Patient Time: Total time spent is greater than 50% in coordination of care (as documented) at patient's floor/unit and/or counseling patient:
[2024-06-06] VITALS (30 sets, daily range): BP systolic 90–151; BP diastolic 47–88; PULSE 58–110; RESP 13–20; TEMP 35.9–36.4; O2SAT 96–100; BMI 37.5; BMI 12.0
[2024-06-06] MEDS: HYDROcodone/APAP 5/325 TABLET 1 TAB PO ×3 (05:19→23:47)
[2024-06-06 05:28] LABS: Basophils # (Auto) 0.2 Thou/mm3 (0.0-0.2); Basophils % (Auto) 1 % (0-2.5); Eosinophils # (Auto) 0.5 Thou/mm3 (0.0-0.5); Eosinophils % (Auto) 4 % (0-10); Hemoglobin 8.9 g/dL (12.0-16.0); Immature Granulocytes % (Auto) 7 % (0-0); Immature Granulocytes Auto 0.98 Thou/mm3 (0.00-0.00); Lymphocytes # (Auto) 2.5 Thou/mm3 (1.0-4.8); Lymphocytes % (Auto) 19 % (10-50); Mean Corpuscular Hemoglobin 27.1 pg (25.0-35.0); Mean Corpuscular Volume 82 fL (80-100); Monocytes % (Auto) 7 % (0-12); Neutrophils # (Auto) 8.2 Thou/mm3 (1.8-7.7); Neutrophils % (Auto) 62 % (37-80); Nucleated Red Blood Cell # 0.05 Thou/mm3 (0.00-0.00); Nucleated Red Blood Cell % 0 /100 WBC (0); Platelet Count 286 Thou/mm3 (140-440); RDW Standard Deviation 56.4 fL (36.4-46.3); Red Blood Count 3.29 Miln/mm3 (4.00-5.20); White Blood Count 13.3 Thou/mm3 (3.6-11.0)
[2024-06-06 06:28] LABS: Alanine Aminotransferase < 7 U/L (10-49); Albumin, Serum 3.4 gm/dL (3.4-4.8); Albumin/Globulin Ratio 0.9 (1.2-2.2); Alkaline Phosphatase 136 U/L (46-116); Anion Gap 12 (7-16); Aspartate Amino Transferase 10 U/L (0-34); BUN/Creatinine Ratio 8 Ratio (12-20); Bilirubin,Total 0.4 mg/dL (0.3-1.2); Blood Urea Nitrogen 47 mg/dL (9-23); Calcium 9.9 mg/dL (8.3-10.6); Calcium (Corrected) 10.4 mg/dL (8.5-10.1); Carbon Dioxide 22.5 mMol/L (20.0-31.0); Chloride 93 mMol/L (98-107); Creatinine (Component) 5.6 mg/dL (0.6-1.3); Estimated Creatinine Clearance 8.4 mL/min (>60); Globulin 3.6 gm/dL (2.3-3.5); Glucose 83 mg/dL (74-106); Osmolality,Calculated 266 (275-295); Potassium 4.4 mMol/L (3.4-5.1); Sodium 127 mMol/L (136-145); eGFR 8 See Note
[2024-06-06 06:41] LABS: Partial Thromboplastin Time 68.8 Seconds (22.0-36.0)
--- NOTE | 2024-06-06 07:55 | ESPR_ITS ---
<Statement entered by Jalen Davis MD - 06/07/24 01:03> I reviewed the resident Dr. Hernandes consultation progress note and agree with the resident findings and plan in the note above and have also edited the documentation to reflect my findings and plan. Patient still continues to be in atrial fibrillation with RVR but the rate is well-controlled on amiodarone 200 mg twice daily which we recommend to continue. Patient blood pressure ranges around 110 to 150 mmHg except for mild hypotension during the dialysis sessions at recommend to decrease midodrine to 10 mg twice daily or 5 mg 3 times daily for now and monitor the blood pressure closely. Jalen Davis M.D. Interventional Cardiology Documentation for date of: 06/06/24 Subjective Subjective Interval history: Pt examined at bedside today. Pt's HR remains to be controlled in 80s-90s however still in afib. She reports having dialysis today, however, feels tired after it. She is not experiencing any further chest pain or shortness of breath, however endorses she is having decreased appetite still at this time. She is experiencing minimal abdominal pain as well. No other complaints at this time. Exam Vital Signs Temp Pulse Resp BP Pulse Ox O2 Del Method O2 Flow Rate 96.9 F 90 16 119/69 96 Nasal Cannula 4 06/06/24 07:42 06/06/24 07:52 06/06/24 07:42 06/06/24 07:52 06/06/24 07:42 06/06/24 04:00 06/06/24 07:42 FiO2 4 06/06/24 07:42 Narrative Exam General: AAOx3, obese female, no active distress at this time, however appears to be more lethargic HEENT: Moist mucous membranes, conjunctiva clear, EOMI, PERRLA, Cardiovascular: S1, S2, radial pulses +2 bilat, irregularly irregular rhythm Pulmonary: CTAB bilat no cough, no wheezing GI: Accordion and percutaneous drains present no output at this time, bandages present, no ascites, mildly distended Extremities: No presence of trace or pitting edema in lower extremities bilaterally, dorsalis pedis pulses +2 bilaterally Neuro: AAOx3, no focal motor or sensory deficits in the UE or LE bilat Psych: Cooperative Objective Labs 06/06/24 04:46 06/06/24 04:46 Labs: Laboratory Results - last 24 hr 06/06/24 04:46 WBC 13.3 H RBC 3.29 L Hgb 8.9 L Hct 27.0 L MCV 82 MCH 27.1 MCHC 33.0 RDW Std Deviation 56.4 H Plt Count 286 Neut % (Auto) 62 Lymph % (Auto) 19 [place] % (Auto) 7 Eos % (Auto) 4 Baso % (Auto) 1 Neut # (Auto) 8.2 H Lymph # (Auto) 2.5 [place] # (Auto) 1.0 H Eos # (Auto) 0.5 Baso # (Auto) 0.2 Immature Gran # (Auto) 0.98 H Absolute Nucleated RBC 0.05 H Immature Gran % 7 H Nucleated RBC % 0 APTT 68.8 H D Sodium 127 L Potassium 4.4 D Chloride 93 L Carbon Dioxide 22.5 Anion Gap 12 BUN 47 H Creatinine 5.6 H* D Estim Creat Clear Calc 8.4 L eGFR 8 L* BUN/Creatinine Ratio 8 L Glucose 83 D Calculated Osmolality 266 L Calcium 9.9 Corrected Calcium 10.4 H Total Bilirubin 0.4 AST 10 ALT < 7 L Alkaline Phosphatase 136 H Total Protein 7.0 Albumin 3.4 Globulin 3.6 H Albumin/Globulin Ratio 0.9 L ABG Interpretation ABG results: 05/13/24 05/15/24 05/15/24 08:29 15:28 16:03 ABG pH 7.39 7.05 L* D 7.17 L* D ABG pCO2 31 L 63 H D 45 D ABG pO2 78 L 38 L* D 84 D ABG HCO3 19 L 18 L 16 L ABG O2 Saturation 96 59 L 96 ABG Base Excess -5 L -12 L -11 L VBG pH VBG pCO2 VBG pO2 VBG Base Excess 05/16/24 05/17/24 05/18/24 04:38 04:03 04:20 ABG pH 7.28 L D 7.38 D 7.49 H D ABG pCO2 34 D 28 L 30 L ABG pO2 96 85 66 L ABG HCO3 16 L 17 L 23 ABG O2 Saturation 98 97 94 ABG Base Excess -10 L -8 L 0 VBG pH VBG pCO2 VBG pO2 VBG Base Excess 05/19/24 05/20/24 05/21/24 09:05 06:05 22:35 ABG pH 7.30 L D 7.41 D ABG pCO2 49 H D 42 ABG pO2 63 L 63 L ABG HCO3 24 27 H ABG O2 Saturation 91 93 ABG Base Excess -3 2 VBG pH 7.31 L VBG pCO2 50 VBG pO2 39 VBG Base Excess -2 05/26/24 05/29/24 04:17 12:28 ABG pH 7.38 7.42 ABG pCO2 42 35 ABG pO2 81 L 67 L ABG HCO3 25 23 ABG O2 Saturation 97 95 ABG Base Excess 0 -2 VBG pH VBG pCO2 VBG pO2 VBG Base Excess Quality Measures Quality Measures VTE prophylaxis (Heparin) Advance care planning discussed with:: patient Assessment & Plan Assessment Current Active Medications: Generic Name Dose Route Start Last Admin Trade Name Freq PRN Reason Stop Dose Admin Hydrocodone Bitart/Acetaminophen 1 tab 06/03/24 12:00 06/06/24 05:19 Hydrocodone/Apap 5/325 Tablet PO 06/08/24 11:59 1 tab Q6HR ANGELICA Administration Albuterol/Ipratropium 3 ml 05/27/24 18:08 06/05/24 07:27 Albuterol/Ipratropium (Duoneb) Rt Jimena 3 Ml Nebu INH 06/26/24 18:07 3 ml Q2HR PRN Administration SHORTNESS OF BREATH OR WHEEZE Amiodarone HCl 200 mg 05/29/24 15:00 06/05/24 21:17 Amiodarone Hcl 200 Mg Tablet PO 06/28/24 14:59 200 mg BID ANGELICA Administration Benzocaine 1 lozenge 05/31/24 11:53 05/31/24 12:54 Benzocaine/Menthol 1 Lozenge PO 06/30/24 11:52 1 lozenge Q4HR PRN Administration Sore throat Dextrose 25 ml 05/24/24 15:43 Dextrose 50%-Water Inj 50 Ml Syringe IV 06/23/24 15:42 Q15MIN PRN BG 50-70 responsive npo pt Dextrose 50 ml 05/24/24 15:43 Dextrose 50%-Water Inj 50 Ml Syringe IV 06/23/24 15:42 Q15MIN PRN BG <50 OR BG <70 & pt unresponsive Fluconazole 400 mg 06/02/24 09:00 06/05/24 09:22 Fluconazole 100 Mg Tablet PO 06/09/24 08:59 400 mg QDAY ANGELICA Administration Glucagon 1 mg 05/24/24 15:43 Glucagon Inj 1 Mg Vial IM Q15MIN PRN BG <70, and no IV access Heparin Sodium (Porcine) 3,500 unit 06/03/24 15:24 06/03/24 17:59 Heparin Sod Inj 1000 Unit/Ml Vial 10 Ml INDWELLCAT 06/17/24 15:23 3,500 unit X1 PRN Administration DIALYSIS Albumin Human 25 gm in 100 mls @ 100 mls/min 05/25/24 10:07 05/30/24 19:13 Albuminar-25 Ivpb IV Infused PRN PRN Infusion DIALYSIS Heparin Sodium/Dextrose 25,000 unit in 250 mls @ 9.384 mls/hr 06/02/24 19:15 06/06/24 07:16 Heparin In D5w Ivpb IV 06/06/24 18:14 12 units/kg/hr .Q24H ANGELICA 9.384 mls/hr Titration Protocol 12 UNITS/KG/HR Insulin Glargine 12 unit 05/25/24 09:00 06/05/24 09:21 Insulin Glargine (Lantus) 5 Unit/0.05 Ml (Per 5 Units) SC 06/24/24 08:59 12 unit QDAY ANGELICA Administration Insulin Human Lispro 0 unit 05/24/24 18:00 06/06/24 05:20 Insulin Lispro (Admelog) 1 Unit/0.01 Ml Unit SC 06/23/24 17:59 Not Given Q6HR [facility] Protocol Lidocaine 1 patch 05/30/24 09:16 06/01/24 19:01 Lidocaine 5% 1 Patch TOP 06/29/24 09:15 1 patch DAILY PRN Administration BACK PAIN Midodrine 10 mg 06/01/24 20:21 06/06/24 05:20 Midodrine 5 Mg Tablet PO 06/29/24 11:59 Not Given QID [facility] Ondansetron HCl 4 mg 05/13/24 11:58 05/14/24 12:31 Ondansetron Inj 2 Mg/Ml Inj 2 Ml IV 06/12/24 11:57 4 mg Q6H PRN Administration NAUSEA OR VOMITING Protocol Pantoprazole Sodium 40 mg 05/15/24 21:00 06/05/24 21:18 Pantoprazole Inj 40 Mg Vial IVP 06/14/24 20:59 40 mg BID ANGELICA Administration Pharmacy Consult 1 each 05/16/24 10:27 Pharmacy Renal Dose Adjustment 1 Ea XX 06/15/24 10:26 PRN PRN CONSULT Sodium Chloride 3 ml 05/24/24 19:00 Sodium Chloride Rt Jimena 0.9% 3 Ml Nebu INH 06/23/24 18:59 PRN PRN SOLN Timolol Maleate 1 drop 05/28/24 18:15 06/05/24 09:22 Timolol Op Jimena 0.5% 5 Ml Btl BOTH EYES 06/27/24 18:14 1 drop DAILY ANGELICA Administration Plan Assessment Ms. Castellanos is a 69-year-old female with past medical history significant for hypertension, diabetes and history of gastric ulcers who presented to the ED on 05/13/2024 after she was found unconscious on the floor. Per chart reviewing prior to this unconsciousness patient was having abdominal pain and generalized weakness with diarrhea and shortness of breath for 2 days. Patient was admitted to the hospital for treatment and management of sepsis secondary to pneumonia. Patient was given 1 L normal saline and started on ceftriaxone and azithromycin. patient underwent ex lap surgery for perforated gastric ulcer. Patient remained intubated postop and was upgraded to the ICU. Patient continues to be on dialysis after downgrade, has BALAJI and accordion drain intact, completed bowel rest, was started on dysphagia 1 diet, surgery following case closely, will continue to monitor. #New onset A-fib with RVR New onset of Afib, likely related to septic shock requiring pressor support and increased demand from perforated ulcer complicated by abdominal abscesses Pt appears to still be in A-fib, rate controlled, 90s to mid 100s Previous EKG shows a-fib w/RVR CHADVASC: 5 Pts 7.2 % stroke risk per year HAS-BLED score: 3, high risk of major bleeding Plan: -Continue with Oral Amio 200 mg BID -Continue with Heparin drip at this time, will need to transition to DOAC at some point #Acute exacerbation of HFpEF #HFpEF EF 55 to 60% #History of primary hypertension -Echo 05/16/2024 -estimated EF of 55 to 60%, stage I diastolic dysfunction noted, Moderate to severe posterior MAC Pt has new onset of ESRD requiring HD, requiring midodrine 10 mg QID to tolerate HD Not resuming home amlodipine at this time due to patient being A-fib and blood pressure eventually be controlled with beta-christian At this point, we recommend to down-titrate midodrine to either 5 mg TID or 10 mg BID, as it sounds pt requires the midodrine during dialysis sessions Plan: ?Resume GDMT as able ?Fluid restriction ?Daily weights ?Strict ins and outs ?Keep potassium and magnesium above 4 and 2 respectively #Hx of Diabetes Mellitus type II Most recent A1c 05/21/2024: 6.2 Plan: Management by primary team #Perforated gastric ulcer #Pneumoperitoneum #Peritonitis secondary to perforated gastric ulcer #Abdominal Abscess, s/p percutaneous drainage x2 Patient found to have tender abdomen, rigidity in the epigastrium, chest x-ray showed elevation of hemidiaphragm, CT abdomen showed pneumoperitoneum, concern for perforated viscus, general surgeon Dr. Santana was consulted for emergency laparotomy and possible repair of perforated gastric ulcer. Repeat CT abd/pel on 05/20 revealed Pneumoperitoneum, orogastric tube in the stomach, mild free fluid adjacent to the stomach and anterior to the pancreas. s/p Exploratory laparotomy & repair of perforated gastric ulcer - 05/15. 06/01/24: Overnight there was concern of wound dehiscence. Discussed with general surgeon per surgery superior aspect of the wound was dehiscent after removal of aixa.Surgery removal of BALAJI drain on 06/01. Repeat CT on 06/01- More pronounced fluid collection in the left abdomen below the spleen, 8.9 x 6.4cm, free fluid in the abdomen and pelvis, and Ascites -Abscess culture from 05/25 grew edna albicans ?Repeat CT abdomen pelvis shows abscess collection lower left abdomen has markedly decreased in size and the accordion drains have no output this morning Plan: Management by primary hospitalist team #Acute blood loss anemia, stable Likely related to perforated ulcer Hgb stable ~9.0 Iron studies unremarkable (TIBC, Iron), will hold off on giving iron Given Erythropoeitin by Nephrology Plan: Management by primary hospitalist team #Acute tubular necrosis, requiring hemodialysis #Acute Hypoxic Respiratory failure #Acute Upper GI bleed - stable #Hyperlipidemia #Acute blood loss anemia, stable #Acute encephalopathy-resolved #Septic Shock - resolved #Hypoosmolar Hyponatremia, resolved Above managed by primary hospitalist team Patient seen and care discussed with my attending physician, Dr. Susan Mathews, PGY-1
[2024-06-06] MEDS: ALBUMIN HUMAN 25% IVPB 25 GM/100 ML BTL IV (08:22)
--- NOTE | 2024-06-06 08:50 | PC.NURSE ---
Dr. August wants sodium to be 140, changed sodium. Multiple arterial alarmsQb decreased to 200.
--- NOTE | 2024-06-06 09:44 | PD.SURPROG ---
Documentation for date of: 06/05/24 Subjective Subjective Brief History: 69F with HTN, CKDIII, pre DM and known gastric ulcers who was admitted 05/13 after being found down at home. Pt was admitted for encephalopathy and pneumonia, developed anemia for which EGD was planned today however this am had an [employer] for tachycardia, hypotension and acute pain; she underwent CT AP showing pneumoperitoneum with air droplets adjacent to the stomach PMH: HTN, CKDIII, preDM, known gastric ulcers on EGD 10/2023 PSHx: None Meds: No antiplt or anticoagulation Allergies: NKDA Narrative: No output from drains and CT AP 06/04 showing marked decrease in abdominal collections compared to previous exam Exam Vital Signs Temp Pulse Resp BP Pulse Ox O2 Del Method O2 Flow Rate 96.7 F L 84 13 94/55 L 97 Nasal Cannula 2 06/06/24 08:00 06/06/24 09:15 06/06/24 08:00 06/06/24 09:15 06/06/24 08:00 06/06/24 08:00 06/06/24 08:00 FiO2 4 06/06/24 07:42 Constitutional Constitutional: no acute distress Routine Respiratory Exam Respiratory: Present no resp distress Routine Abdominal Exam Abdominal: Present soft; Absent tenderness or distended Results Results: Laboratory Laboratory results: results reviewed Results: Imaging CT scan - abdomen: report reviewed and image reviewed Assessment & Plan Plan 69F with HTN, CKDIII, pre DM and known gastric ulcers who was admitted 05/13 after being found down at home, who developed pneumoperitoneum 05/15 s/p emergent ex lap, repair of gastric perforation, with postop abscess requiring percutaneous drain placement x2, both removed today OK for dc from my standpoint Will follow up as outpt Procedures Procedures Exploratory laparotomy, repair of perforated gastric ulcer
--- NOTE | 2024-06-06 09:46 | PC.NURSE ---
Low BP, decreased goal to 1.5 L.
[2024-06-06] MEDS: HEPARIN SOD INJ 1000 UNIT/ML VIAL 10 ML 3500 UNIT INDWELLCAT (11:13)
--- NOTE | 2024-06-06 11:39 | ESPR_ITS ---
<Statement entered by Michel See MD - 06/20/24 12:16> I reviewed above note and agree with findings and plans. I have also personally examined the patient with medicine team and went over assessment and plan with medical team including senior internal auditor and resident physician. Documentation for date of: 06/06/24 Subjective Subjective Interval history: 06/05: no acute overnight events. pt is seen and examined at during dialysis. Pt appears to be very lethargic. Pt denies abdominal pain, physical therapy is working on ambulation as patient is very weak. Both accordian drains were removed yesterday (06/05), per surgery pt is cleared to be discharged to rehab facility. Pt will undergo dialysis today and if she remains hemodynamically stable pt. will be discharge tomorrow. Leukocytosis is down trending and she remains afebrile. Exam Vital Signs Temp Pulse Resp BP Pulse Ox O2 Del Method O2 Flow Rate 97.5 F 87 18 108/54 L 100 Nasal Cannula 2 06/06/24 11:10 06/06/24 11:10 06/06/24 11:10 06/06/24 11:10 06/06/24 11:10 06/06/24 08:00 06/06/24 11:10 FiO2 4 06/06/24 07:42 Narrative Exam GENERAL: A&Ox3 . Awake, moaning in pain NEURO: no focal neurological deficits HEENT: Atraumatic, Normocephalic. mucous membranes moist. Eyes open, symmetrical, & clear HEART: Normal Heart Sounds LUNGS: clear to auscultation bilaterally, no wheezing, rhonci or crackles ABDOMEN: soft, non-distended, non-tender, bowel sounds heard, no guarding or rebound tenderness, incision site is clean. SKIN: No Rash or ecchymoses EXTREMITIES: No edema, tenderness, able to move all 4 extremities, pedal pulses palpated Objective Labs 06/06/24 04:46 06/06/24 04:46 Labs: Laboratory Results - last 24 hr 06/06/24 04:46 WBC 13.3 H RBC 3.29 L Hgb 8.9 L Hct 27.0 L MCV 82 MCH 27.1 MCHC 33.0 RDW Std Deviation 56.4 H Plt Count 286 Neut % (Auto) 62 Lymph % (Auto) 19 [place] % (Auto) 7 Eos % (Auto) 4 Baso % (Auto) 1 Neut # (Auto) 8.2 H Lymph # (Auto) 2.5 [place] # (Auto) 1.0 H Eos # (Auto) 0.5 Baso # (Auto) 0.2 Immature Gran # (Auto) 0.98 H Absolute Nucleated RBC 0.05 H Immature Gran % 7 H Nucleated RBC % 0 APTT 68.8 H D Sodium 127 L Potassium 4.4 D Chloride 93 L Carbon Dioxide 22.5 Anion Gap 12 BUN 47 H Creatinine 5.6 H* D Estim Creat Clear Calc 8.4 L eGFR 8 L* BUN/Creatinine Ratio 8 L Glucose 83 D Calculated Osmolality 266 L Calcium 9.9 Corrected Calcium 10.4 H Phosphorus 5.0 Magnesium 3.0 H Total Bilirubin 0.4 AST 10 ALT < 7 L Alkaline Phosphatase 136 H Total Protein 7.0 Albumin 3.4 Globulin 3.6 H Albumin/Globulin Ratio 0.9 L ABG Interpretation ABG results: 05/13/24 05/15/24 05/15/24 08:29 15:28 16:03 ABG pH 7.39 7.05 L* D 7.17 L* D ABG pCO2 31 L 63 H D 45 D ABG pO2 78 L 38 L* D 84 D ABG HCO3 19 L 18 L 16 L ABG O2 Saturation 96 59 L 96 ABG Base Excess -5 L -12 L -11 L VBG pH VBG pCO2 VBG pO2 VBG Base Excess 05/16/24 05/17/24 05/18/24 04:38 04:03 04:20 ABG pH 7.28 L D 7.38 D 7.49 H D ABG pCO2 34 D 28 L 30 L ABG pO2 96 85 66 L ABG HCO3 16 L 17 L 23 ABG O2 Saturation 98 97 94 ABG Base Excess -10 L -8 L 0 VBG pH VBG pCO2 VBG pO2 VBG Base Excess 05/19/24 05/20/24 05/21/24 09:05 06:05 22:35 ABG pH 7.30 L D 7.41 D ABG pCO2 49 H D 42 ABG pO2 63 L 63 L ABG HCO3 24 27 H ABG O2 Saturation 91 93 ABG Base Excess -3 2 VBG pH 7.31 L VBG pCO2 50 VBG pO2 39 VBG Base Excess -2 05/26/24 05/29/24 04:17 12:28 ABG pH 7.38 7.42 ABG pCO2 42 35 ABG pO2 81 L 67 L ABG HCO3 25 23 ABG O2 Saturation 97 95 ABG Base Excess 0 -2 VBG pH VBG pCO2 VBG pO2 VBG Base Excess Quality Measures Quality Measures VTE prophylaxis (Heparin) Advance care planning discussed with:: patient and child Assessment & Plan Assessment Current Active Medications: Generic Name Dose Route Start Last Admin Trade Name Freq PRN Reason Stop Dose Admin Hydrocodone Bitart/Acetaminophen 1 tab 06/03/24 12:00 06/06/24 05:19 Hydrocodone/Apap 5/325 Tablet PO 06/08/24 11:59 1 tab Q6HR ANGELICA Administration Albuterol/Ipratropium 3 ml 05/27/24 18:08 06/05/24 07:27 Albuterol/Ipratropium (Duoneb) Rt Jimena 3 Ml Nebu INH 06/26/24 18:07 3 ml Q2HR PRN Administration SHORTNESS OF BREATH OR WHEEZE Amiodarone HCl 200 mg 05/29/24 15:00 06/05/24 21:17 Amiodarone Hcl 200 Mg Tablet PO 06/28/24 14:59 200 mg BID ANGELICA Administration Benzocaine 1 lozenge 05/31/24 11:53 05/31/24 12:54 Benzocaine/Menthol 1 Lozenge PO 06/30/24 11:52 1 lozenge Q4HR PRN Administration Sore throat Dextrose 25 ml 05/24/24 15:43 Dextrose 50%-Water Inj 50 Ml Syringe IV 06/23/24 15:42 Q15MIN PRN BG 50-70 responsive npo pt Dextrose 50 ml 05/24/24 15:43 Dextrose 50%-Water Inj 50 Ml Syringe IV 06/23/24 15:42 Q15MIN PRN BG <50 OR BG <70 & pt unresponsive Fluconazole 400 mg 06/02/24 09:00 06/05/24 09:22 Fluconazole 100 Mg Tablet PO 06/09/24 08:59 400 mg QDAY ANGELICA Administration Glucagon 1 mg 05/24/24 15:43 Glucagon Inj 1 Mg Vial IM Q15MIN PRN BG <70, and no IV access Heparin Sodium (Porcine) 3,500 unit 06/03/24 15:24 06/06/24 11:13 Heparin Sod Inj 1000 Unit/Ml Vial 10 Ml INDWELLCAT 06/17/24 15:23 3,500 unit X1 PRN Administration DIALYSIS Heparin Sodium/Dextrose 25,000 unit in 250 mls @ 9.384 mls/hr 06/02/24 19:15 06/06/24 07:16 Heparin In D5w Ivpb IV 06/06/24 18:14 12 units/kg/hr .Q24H ANGELICA 9.384 mls/hr Titration Protocol 12 UNITS/KG/HR Insulin Glargine 12 unit 05/25/24 09:00 06/05/24 09:21 Insulin Glargine (Lantus) 5 Unit/0.05 Ml (Per 5 Units) SC 06/24/24 08:59 12 unit QDAY [facility] Administration Insulin Human Lispro 0 unit 05/24/24 18:00 06/06/24 05:20 Insulin Lispro (Admelog) 1 Unit/0.01 Ml Unit SC 06/23/24 17:59 Not Given Q6HR [facility] Protocol Lidocaine 1 patch 05/30/24 09:16 06/01/24 19:01 Lidocaine 5% 1 Patch TOP 06/29/24 09:15 1 patch DAILY PRN Administration BACK PAIN Midodrine 10 mg 06/01/24 20:21 06/06/24 05:20 Midodrine 5 Mg Tablet PO 06/29/24 11:59 Not Given QID [facility] Ondansetron HCl 4 mg 05/13/24 11:58 05/14/24 12:31 Ondansetron Inj 2 Mg/Ml Inj 2 Ml IV 06/12/24 11:57 4 mg Q6H PRN Administration NAUSEA OR VOMITING Protocol Pantoprazole Sodium 40 mg 05/15/24 21:00 06/05/24 21:18 Pantoprazole Inj 40 Mg Vial IVP 06/14/24 20:59 40 mg BID [facility] Administration Pharmacy Consult 1 each 05/16/24 10:27 Pharmacy Renal Dose Adjustment 1 Ea XX 06/15/24 10:26 PRN PRN CONSULT Sodium Chloride 3 ml 05/24/24 19:00 Sodium Chloride Rt Jimena 0.9% 3 Ml Nebu INH 06/23/24 18:59 PRN PRN SOLN Timolol Maleate 1 drop 05/28/24 18:15 06/05/24 09:22 Timolol Op Jimena 0.5% 5 Ml Btl BOTH EYES 06/27/24 18:14 1 drop DAILY ANGELICA Administration Plan Ms. Castellanos is a 69-year-old female with past medical history significant for hypertension, diabetes and history of gastric ulcers who presented to the ED on 05/13/2024 after she was found unconscious on the floor. Per chart reviewing prior to this unconsciousness patient was having abdominal pain and generalized weakness with diarrhea and shortness of breath for 2 days. Patient was admitted to the hospital for treatment and management of sepsis secondary to pneumonia. Patient was given 1 L normal saline and started on ceftriaxone and azithromycin. patient underwent ex lap surgery for perforated gastric ulcer. Patient remained intubated postop and was upgraded to the ICU. Patient continues to be on dialysis after downgrade, has BALAJI and accordion drain intact, completed bowel rest, was started on dysphagia 1 diet, surgery following case closely, will continue to monitor. #Perforated gastric ulcer #Pneumoperitoneum #Peritonitis secondary to perforated gastric ulcer #Abdominal Abscess, s/p percutaneous drainage x2 #Leukocytosis- improving Patient found to have tender abdomen, rigidity in the epigastrium, chest x-ray showed elevation of hemidiaphragm, CT abdomen showed pneumoperitoneum, concern for perforated viscus, general surgeon Dr. Santana was consulted for emergency laparotomy and possible repair of perforated gastric ulcer. Repeat CT abd/pel on 05/20 revealed Pneumoperitoneum, orogastric tube in the stomach, mild free fluid adjacent to the stomach and anterior to the pancreas. s/p Exploratory laparotomy & repair of perforated gastric ulcer - 05/15. 06/01/24: Overnight there was concern of wound dehiscence. Discussed with general surgeon per surgery superior aspect of the wound was dehiscent after removal of aixa.Surgery removal of BALAJI drain on 06/01. Repeat CT on 06/01- More pronounced fluid collection in the left abdomen below the spleen, 8.9 x 6.4cm, free fluid in the abdomen and pelvis, and Ascites -Abscess culture from 05/25 grew edna albicans -Repeat CT A/P 06/05: abscess collection in the left lower abdomen has markedly decreased in size. the accordions drains have no output this morning. Plan: ?Patient completed antibiotic therapy, Meropenem, discontinued per ID Recommendations -continue fluconazole for additional 7 days 06/01- -percutaneous abscess drain catheter placed 06/02 -Pending Abscess Culture from drain 06/02 ?Pain control Fentanyl 25 mcg every 6 hours as needed. And scheduled [place] 5 mg every 6 hours ?disontinue with TPN 06/05 Pt. is able to consumed atleast 50% of dysphagia 1 diet -Started on pureed diet, will advance as tolerated ?June 03, 2024: Patient was made n.p.o. by overnight team due to abdominal distention but we resumed her diet and p.o. medications. -accordian drains have zero output this morning ad 10cc over night- remove the drains on 06/05 #New onset A-fib with RVR -Likely secondary to shock in the setting of abdominal surgery -EKG findings consistent with A-fib -Was on Amiodarone 200 twice daily for new onset Afib, but as she was in AFib with RVR. Plan: ?Cardiology consulted, appreciate recs -Currently on oral amiodarone 200mg ?Continue with heparin drip as patient may need surgical intervention #Acute tubular necrosis #Anuria -2/2 septic shock -Patient has 0 urine production -Baseline Cr appears to be 0.7 Plan: ?Patient underwent HD fluid removal and removed 2.1 L on 05/18 and 1.5 L on 05/19, 2L fluid removed 05/21, 2.5 L fluid removed on 05/22 , 3L fluid removed on 05/23, 3L fluid removed 05/25, 2L removed 05/26, 1 L removed 05/29, 1.5 L removed 05/30, 06/01 2L fluid removed. -permanent hemodialysis cath placed on 06/02/24 -Started on midodrine 10 mg 4 times daily as patient has difficulty tolerating dialysis, blood pressure drops. -Renally dose medications and avoid nephrotoxic agents -repeat labs in am -Nephrology following #Acute exacerbation of HFpEF # HFpEF EF 55 to 60% -echo 05/16 -estimated EF of 55 to 60%, stage I diastolic dysfunction noted, Moderate to severe posterior MAC -Pt presented with SOB and 2+ edema in LE -elevated BNP from 304 --> 1110 -HD in the setting of anuria -holding guideline directed medical therapy due to shock, will resume when able -Continue dialysis #Acute Hypoxic Respiratory failure likely multifactorial -2/2 to pulmonary edema in the setting of volume overload 2/2 ATN due to shock leading to oligoanuria versus bibasilar pneumonia -Further complicated by bilateral lung atelectasis in the setting of recent abdominal surgery and sedatives use -Patient was intubated and on mechanical ventilation (05/15) and extubated 05/18/2024, currently saturating 95-97 % on 5 L NC -Duonebs prn #Acute Upper GI bleed - stable -Most likely secondary to perforated gastric ulcer -Patient had a single episode of black tarry stool today-likely setting of recent abdominal surgery -Continue iv Protonix. -Will monitor for alarm signs of active bleeding with melena or hematochezia #Hx of Diabetes Mellitus type II - A1C 6.3 % 05/21/2024 - Hold home glipizide and januvia - Plan: Continue to monitor blood sugars - Insulin sliding scale ordered with lantus 12 units #Hyperlipidemia Plan: -Resume patient's medication #Primary Hypertension Holding on resuming home blood pressure medicines at this time #Acute blood loss anemia, stable 2/2 perforated ulcer- S/P surgical repair Hgb stable 9.6 Hct 28.3 patient received 2 units of PRBC 05/18 due to acutely drop in Hgb below 7. No signs of active bleeding. Plan: -Continue to monitor daily CBC. transfuse for hemoglobin less than 7. # Acute encephalopathy-resolved -Likely multifactorial secondary to sepsis versus metabolic versus neurologic versus medication -Patient is awake and alert and follows commands. Patient is able to respond to yes or no questions verbally #Shock - resolved #Hypoosmolar Hyponatremia, resolved Disposition: Telemetry DVT prophylaxis: Heparin drip GI prophylaxis:Protonix 40 BID Diet: Dysphagia 1 diet CODE STATUS: Full Assessment and plan discussed with my senior resident physician Dr. Quiñonez and my attending physician Dr. Esa Rivera (PGY-1)- Internal medicine resident Senior resident attestation: Patient evaluated and examined at the bedside, plan of care discussed with rest of the team including my attending physician, except as noted. Mrs. Wyman is a 69-year-old female, past medical history of hypertension, CKD stage III, prediabetes, no history of gastric ulcers, admitted for encephalopathy and pneumonia complicated by acute GI bleed secondary to perforated gastric ulcer, s/p ex lap and repair of perforated gastric ulcer, was in ICU following surgery, now downgraded to medical floor, hospital course complicated by septic shock leading to ADILSON/ATN requiring hemodialysis, postop abscess requiring percutaneous drain placement and wound dehiscence. #Sepsis?secondary to?Peritonitis secondary to perforated gastric ulcer s/p repair ?resolved #Postop intra-abdominal abscess s/p drainage, likely fungal #Pneumonia?resolved ?Already completed antibiotics more than 7 days including meropenem. ? Noted Edna albicans of abdominal abscess culture, infectious especially Dr Horn following the case, recommended fluconazole for another week to complete 10 days of treatment. ? Repeat CT-guided abdominal abscess drainage ordered 06/02/2024, repeat culture sensitivity grew yeast, patient is currently on antifungal will be continued for 3 more days of discharge. #A-fib RVR #NSTEMI type 2 ? Cardiology following the patient, recommending anticoagulation due to high risk of stroke. ? Continue with amiodarone ? Continue with heparin drip, will switch to Eliquis on discharge #ATN, likely progressed to ESRD ? Escort Vehicle Driver Dr. August following the patient, recommended PermCath placement as patient continues to be anuric. Hemodialysis as per schedule. ? Patient will require outpatient hemodialysis, dialysis chair secured by case management #Acute toxic encephalopathy?in the setting of sepsis?improving #Nutrition ?Patient noted to have poor appetite, is finishing less than 50% of her meals, was initially on TPN which is now discontinued. Will add mirtazapine. #History of diabetes mellitus ? Continue insulin sliding scale #History of gastric ulcer #Acute blood loss anemia secondary to GI bleed ? Gastroenterology following the patient, appreciate recommendations, on Protonix for GI prophylaxis ? Continue monitoring H&H transfuse for hemoglobin less than 7 Quresh PGY2 Attending Provider Attestation/Addendum 69-year-old female with multiple comorbidities including hypertension, type 2 diabetes mellitus and previous history of gastric ulcers who presented to the ER on 05/13/2024 after being found unconscious. Subsequently, patient was admitted for sepsis secondary to pneumonia and found to have acute blood loss anemia and subsequently started developing abdominal pain and imaging noted pneumoperitoneum and subsequently underwent emergency exploratory laparotomy and repair of gastric ulcer on 05/15/2024. Throughout the course of hospitalization, patient's course was complicated by intra-abdominal abscesses and cultures positive for Edna and subsequently underwent drainage and currently on fluconazole. Furthermore, noted to have A-fib with RVR and subsequently transition to amiodarone and anticoagulation. Furthermore, patient creatinine function worsening currently on hemodialysis via a TDC. As of now, plan to obtain imaging to evaluate abscess and plan to remove drainage. Continue fluconazole and hemodialysis per nephrology team. Plan to discontinue TPN as patient is eating. I reviewed above note and agree with findings and plans. I have also personally examined the patient with medicine team and went over assessment and plan with medical team including senior internal auditor and resident physician.
[2024-06-06] MEDS: PANTOPRAZOLE INJ 40 MG VIAL IVP ×2 (11:53→21:19)
[2024-06-06] MEDS: AMIODARONE HCL 200 MG TABLET PO ×2 (11:54→21:18)
[2024-06-06] MEDS: FLUCONAZOLE 100 MG TABLET 400 MG PO (11:54)
[2024-06-06] MEDS: TIMOLOL OP SOL 0.5% 5 ML BTL 1 DROP BOTH EYES (12:06)
[2024-06-06] MEDS: MIDODRINE 5 MG TABLET 10 MG PO (12:08)
--- NOTE | 2024-06-06 12:15 | PC.CC ---
PASSR Level 1 complete and downloaded; Level 2 not required.
[2024-06-06] MEDS: MIRTAZAPINE 15 MG TABLET PO (14:30)
--- NOTE | 2024-06-06 14:31 | PC.SS ---
SS spoke to Monie at [facility] who provided patient's chair time Wednesday and Wednesday at 10:15am. First session pt has to be at [facility] at 9:45am. SS has provided patient's son, Roberto with SNF options to [place], [facility] [[email or web address]], and [facility]. [facility] did not respond and [facility] was considering. Son Roberto's choice is [place]. SS spoke to Ebony at [facility] and provided her with patient's dialysis chair time.
[2024-06-06] MEDS: Heparin/D5w 25K 250 ML Ivpb 25,000 UNIT/250 ML BAG 9.384 UNIT IV (16:47)
--- NOTE | 2024-06-06 17:51 | PD.IMPROG ---
Documentation for date of: 06/06/24 Subjective Subjective Interval history: WBC count dropped down to 13.3 Hemoglobin hematocrit 8.9 and 28.0 No signs of any active bleeding P.o. intake is not adequate Not a candidate for PEG placement because of the recent surgery Exam Vital Signs Temp Pulse Resp BP Pulse Ox O2 Del Method O2 Flow Rate 97.1 F 84 19 151/88 H 100 Nasal Cannula 2 06/06/24 16:00 06/06/24 16:58 06/06/24 16:00 06/06/24 16:58 06/06/24 16:00 06/06/24 16:00 06/06/24 16:00 FiO2 4 06/06/24 07:42 Routine Respiratory Exam Comments: Basal crepitations Routine Abdominal Exam Comments: Positive bowel sounds Objective Labs 06/06/24 04:46 06/06/24 04:46 Labs: Laboratory Results - last 24 hr 06/06/24 04:46 WBC 13.3 H RBC 3.29 L Hgb 8.9 L Hct 27.0 L MCV 82 MCH 27.1 MCHC 33.0 RDW Std Deviation 56.4 H Plt Count 286 Neut % (Auto) 62 Lymph % (Auto) 19 [place] % (Auto) 7 Eos % (Auto) 4 Baso % (Auto) 1 Neut # (Auto) 8.2 H Lymph # (Auto) 2.5 [place] # (Auto) 1.0 H Eos # (Auto) 0.5 Baso # (Auto) 0.2 Immature Gran # (Auto) 0.98 H Absolute Nucleated RBC 0.05 H Immature Gran % 7 H Nucleated RBC % 0 APTT 68.8 H D Sodium 127 L Potassium 4.4 D Chloride 93 L Carbon Dioxide 22.5 Anion Gap 12 BUN 47 H Creatinine 5.6 H* D Estim Creat Clear Calc 8.4 L eGFR 8 L* BUN/Creatinine Ratio 8 L Glucose 83 D Calculated Osmolality 266 L Calcium 9.9 Corrected Calcium 10.4 H Phosphorus 5.0 Magnesium 3.0 H Total Bilirubin 0.4 AST 10 ALT < 7 L Alkaline Phosphatase 136 H Total Protein 7.0 Albumin 3.4 Globulin 3.6 H Albumin/Globulin Ratio 0.9 L Impressions Impression: # Perforated gastric ulcer requiring surgical intervention # Poor p.o. intake encourage p.o. intake ABG Interpretation ABG results: 05/13/24 05/15/2405/15/24 08:29 15:28 16:03 ABG pH 7.39 7.05 L* D 7.17 L* D ABG pCO2 31 L 63 H D 45 D ABG pO2 78 L 38 L* D 84 D ABG HCO3 19 L 18 L 16 L ABG O2 Saturation 96 59 L 96 ABG Base Excess -5 L -12 L -11 L VBG pH VBG pCO2 VBG pO2 VBG Base Excess 05/16/24 05/17/24 05/18/24 04:38 04:03 04:20 ABG pH 7.28 L D 7.38 D 7.49 H D ABG pCO2 34 D 28 L 30 L ABG pO2 96 85 66 L ABG HCO3 16 L 17 L 23 ABG O2 Saturation 98 97 94 ABG Base Excess -10 L -8 L 0 VBG pH VBG pCO2 VBG pO2 VBG Base Excess 05/19/24 05/20/24 05/21/24 09:05 06:05 22:35 ABG pH 7.30 L D 7.41 D ABG pCO2 49 H D 42 ABG pO2 63 L 63 L ABG HCO3 24 27 H ABG O2 Saturation 91 93 ABG Base Excess -3 2 VBG pH 7.31 L VBG pCO2 50 VBG pO2 39 VBG Base Excess -2 05/26/24 05/29/24 04:17 12:28 ABG pH 7.38 7.42 ABG pCO2 42 35 ABG pO2 81 L 67 L ABG HCO3 25 23 ABG O2 Saturation 97 95 ABG Base Excess 0 -2 VBG pH VBG pCO2 VBG pO2 VBG Base Excess Assessment & Plan A&P Narrative abd abscess, stain neg. later grew c albicans so on flucon now here since 05/13.usual rx for most things is 7d. left on merrem thru weekend but collection in abd eventually grew a yeast, so ok for another 7d rx will see again if requested Time Spent With Patient Time: Total time spent is greater than 50% in coordination of care (as documented) at patient's floor/unit and/or counseling patient:
--- NOTE | 2024-06-06 17:56 | PD.RESPRO ---
Documentation for date of: 06/06/24 Subjective Subjective Interval history: Mr. Castellanos is a [id number] with past medical history of prediabetes, CKD, hypertension, history of ulcers who was admitted to [facility] for sepsis secondary to pneumonia and acute metabolic encephalopathy. Patient was BIBA to the ED after being found unconscious on the floor. According to the son on admission patient's daughter found the patient at 3 AM passed out on the floor and unresponsive. Family is unaware along the patient was on the floor. 2 days ago patient started to develop abdominal pain and weakness all over her body associated with some diarrhea and shortness of breath. Patient's abdominal pain comes and goes from right side to left side of the abdomen. ED course patient was hypertensive tachycardic tachypneic and was saturating 92% on 5 L nasal cannula ED labs significant for WBCs 24.3, bicarb 19.6, glucose 259, lactic acid 2.2, BNP 304, troponin 0.09. 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, colonic diverticulosis, Cervical spine CT showed 3 mm radiolucency in C3 vertebral body Chest CTA showed mild aneurysmal dilatation ascending thoracic aorta AP dimension 4.3 cm and pulmonary artery hypertension with moderate vascular congestion Face CT shows no acute facial fracture, Lumbar spine CT shows no acute lumbar fracture severe acquired spinal stenosis L4-L5, Thoracic spine CT showed no acute fracture Brain MRI with MRA showed equally focal restricted diffusion brainstem medullary level significant stenosis of right P1 P2 segment posterior cerebral artery Postadmission, cardiology was consulted on admission because of elevated troponins, suspicion of NSTEMI type II, patient has acute decompensated heart failure per cardiology evaluation, neurology consulted because of patient's acute metabolic encephalopathy and GI was consulted for suspicion of GI bleed. Eventually on 05/15 rapid response was called for worsening chest pain, patient's map was consistently in 70s, was tachycardic tachypneic. CT angiogram showed pneumoperitoneum multiple air droplets adjacent to and within wall of stomach with suspicion of gastric perforation. General surgery was consulted for emergency surgery and patient had exploratory laparotomy with repair of perforated gastric ulcer with an omental patch. Patient was upgraded to ICU postop for further management patient currently on Levophed and vasopressor due to distributive shock, currently sedated and intubated on mechanical ventilation. Nephrology consulted due to concern of ADILSON. 06/01/2024 patient currently seen on dialysis.WBC 16.7, hemoglobin 8.3, platelets 493. Sodium 128, potassium 3.8, BUN 44, creatinine 4.5, calcium 9.9, phosphorus 3, magnesium 1.7, LFTs normal, albumin 3.3, urinalysis shows trace blood abdominal CT showed loculated ascites versus abscess collection in the left abdomen. 06/03/2024 patient currently seen on dialysis. Complaining of abdominal pain. Labs, medications have been reviewed. Her niece at bedside. WBC 13.3, hemoglobin 7.9 sodium 128, BUN 43, creatinine 5.1, glucose 124, LFTs normal, 1 unit of blood transfusion ordered with dialysis. 06/04/2024 patient currently seen in medical floor. Going for CAT scan for abdominal pain. Labs and medications have been reviewed. Blood pressure 101/71, heart rate 100. WBC 12.2,, platelets 322. Sodium 131, potassium 3.4, BUN 29, creatinine 3 point, LFTs normal, albumin 3.5. 06/06/2024 Patient was seen and examined at bedside, was lying in bed comfortably. As per primary team patient has been tolerating oral feeding well and has daily bowel movements. She tolerated 50 to 60% of all of her meals. Hemoglobin today is 8.9 potassium was 4.4 noticed to have sodium level of 127 most likely secondary to decreased oral intake, serum creatinine is 5.6 before dialysis. BUN is 47. Patient was cleared from general surgery for discharge to half-way facility. Patient already has been arranged for dialysis outpatient. Exam Vital Signs Temp Pulse Resp BP Pulse Ox O2 Del Method O2 Flow Rate 97.1 F 84 19 151/88 H 100 Nasal Cannula 2 06/06/24 16:00 06/06/24 16:58 06/06/24 16:00 06/06/24 16:58 06/06/24 16:00 06/06/24 16:00 06/06/24 16:00 FiO2 4 06/06/24 07:42 Narrative Exam PatientGEN: AOx3, seems to be lethargic, HEENT: NC/AC, oral mucosa moist, neck supple CVS: RRR, S1-S2 present, no murmurs appreciated RESP: Mild wheezing bilaterally GI: soft,non distended, non tender, NBS, still has 2 drains with minimal output. MSK: able to move all 4 limbs, no lower extremity edema SKIN: warm and dry [employer]GER: CN II-XII and Sensation grossly intact. Objective Labs 06/06/24 04:46 06/06/24 04:46 Labs: Laboratory Results - last 24 hr 06/06/24 04:46 WBC 13.3 H RBC 3.29 L Hgb 8.9 L Hct 27.0 L MCV 82 MCH 27.1 MCHC 33.0 RDW Std Deviation 56.4 H Plt Count 286 Neut % (Auto) 62 Lymph % (Auto) 19 [place] % (Auto) 7 Eos % (Auto) 4 Baso % (Auto) 1 Neut # (Auto) 8.2 H Lymph # (Auto) 2.5 [place] # (Auto) 1.0 H Eos # (Auto) 0.5 Baso # (Auto) 0.2 Immature Gran # (Auto) 0.98 H Absolute Nucleated RBC 0.05 H Immature Gran % 7 H Nucleated RBC % 0 APTT 68.8 H D Sodium 127 L Potassium 4.4 D Chloride 93 L Carbon Dioxide 22.5 Anion Gap 12 BUN 47 H Creatinine 5.6 H* D Estim Creat Clear Calc 8.4 L eGFR 8 L* BUN/Creatinine Ratio 8 L Glucose 83 D Calculated Osmolality 266 L Calcium 9.9 Corrected Calcium 10.4 H Phosphorus 5.0 Magnesium 3.0 H Total Bilirubin 0.4 AST 10 ALT < 7 L Alkaline Phosphatase 136 H Total Protein 7.0 Albumin 3.4 Globulin 3.6 H Albumin/Globulin Ratio 0.9 L ABG Interpretation ABG results: 05/13/24 05/15/24 05/15/24 08:29 15:28 16:03 ABG pH 7.39 7.05 L* D 7.17 L* D ABG pCO2 31 L 63 H D 45 D ABG pO2 78 L 38 L* D 84 D ABG HCO3 19 L 18 L 16 L ABG O2 Saturation 96 59 L 96 ABG Base Excess -5 L -12 L -11 L VBG pH VBG pCO2 VBG pO2 VBG Base Excess 05/16/24 05/17/24 05/18/24 04:38 04:03 04:20 ABG pH 7.28 L D 7.38 D 7.49 H D ABG pCO2 34 D 28 L 30 L ABG pO2 96 85 66 L ABG HCO3 16 L 17 L 23 ABG O2 Saturation 98 97 94 ABG Base Excess -10 L -8 L 0 VBG pH VBG pCO2 VBG pO2 VBG Base Excess 05/19/24 05/20/24 05/21/24 09:05 06:05 22:35 ABG pH 7.30 L D 7.41 D ABG pCO2 49 H D 42 ABG pO2 63 L 63 L ABG HCO3 24 27 H ABG O2 Saturation 91 93 ABG Base Excess -3 2 VBG pH 7.31 L VBG pCO2 50 VBG pO2 39 VBG Base Excess -2 05/26/24 05/29/24 04:17 12:28 ABG pH 7.38 7.42 ABG pCO2 42 35 ABG pO2 81 L 67 L ABG HCO3 25 23 ABG O2 Saturation 97 95 ABG Base Excess 0 -2 VBG pH VBG pCO2 VBG pO2 VBG Base Excess Quality Measures Quality Measures VTE prophylaxis (Heparin) Advance care planning discussed with:: patient Assessment & Plan Assessment Current Active Medications: Generic Name Dose Route Start Last Admin Trade Name Freq PRN Reason Stop Dose Admin Hydrocodone Bitart/Acetaminophen 1 tab 06/03/24 12:00 06/06/24 17:00 Hydrocodone/Apap 5/325 Tablet PO 06/08/24 11:59 1 tab Q6HR ANGELICA Administration Albuterol/Ipratropium 3 ml 05/27/24 18:08 06/05/24 07:27 Albuterol/Ipratropium (Duoneb) Rt Jimena 3 Ml Nebu INH 06/26/24 18:07 3 ml Q2HR PRN Administration SHORTNESS OF BREATH OR WHEEZE Amiodarone HCl 200 mg 05/29/24 15:00 06/06/24 11:54 Amiodarone Hcl 200 Mg Tablet PO 06/28/24 14:59 200 mg BID ANGELICA Administration Benzocaine 1 lozenge 05/31/24 11:53 05/31/24 12:54 Benzocaine/Menthol 1 Lozenge PO 06/30/24 11:52 1 lozenge Q4HR PRN Administration Sore throat Dextrose 25 ml 05/24/24 15:43 Dextrose 50%-Water Inj 50 Ml Syringe IV 06/23/24 15:42 Q15MIN PRN BG 50-70 responsive npo pt Dextrose 50 ml 05/24/24 15:43 Dextrose 50%-Water Inj 50 Ml Syringe IV 06/23/24 15:42 Q15MIN PRN BG <50 OR BG <70 & pt unresponsive Fluconazole 400 mg 06/02/24 09:00 06/06/24 11:54 Fluconazole 100 Mg Tablet PO 06/09/24 08:59 400 mg QDAY ANGELICA Administration Glucagon 1 mg 05/24/24 15:43 Glucagon Inj 1 Mg Vial IM Q15MIN PRN BG <70, and no IV access Heparin Sodium (Porcine) 3,500 unit 06/03/24 15:24 06/06/24 11:13 Heparin Sod Inj 1000 Unit/Ml Vial 10 Ml INDWELLCAT 06/17/24 15:23 3,500 unit X1 PRN Administration DIALYSIS Heparin Sodium/Dextrose 25,000 unit in 250 mls @ 9.384 mls/hr 06/02/24 19:15 06/06/24 16:47 Heparin In D5w Ivpb IV 06/06/24 18:14 12 units/kg/hr .Q24H ANGELICA 9.384 mls/hr Administration Protocol 12 UNITS/KG/HR Insulin Glargine 12 unit 05/25/24 09:00 06/06/24 11:58 Insulin Glargine (Lantus) 5 Unit/0.05 Ml (Per 5 Units) SC 06/24/24 08:59 Not Given QDAY ANGELICA Insulin Human Lispro 0 unit 05/24/24 18:00 06/06/24 11:57 Insulin Lispro (Admelog) 1 Unit/0.01 Ml Unit SC 06/23/24 17:59 Not Given Q6HR [facility] Protocol Lidocaine 1 patch 05/30/24 09:16 06/01/24 19:01 Lidocaine 5% 1 Patch TOP 06/29/24 09:15 1 patch DAILY PRN Administration BACK PAIN Midodrine 10 mg 06/01/24 20:21 06/06/24 16:58 Midodrine 5 Mg Tablet PO 06/29/24 11:59 Not Given QID ANGELICA Mirtazapine 15 mg 06/06/24 14:30 06/06/24 14:30 Mirtazapine 15 Mg Tablet PO 07/06/24 14:29 15 mg QDAY ANGELICA Administration Ondansetron HCl 4 mg 05/13/24 11:58 05/14/24 12:31 Ondansetron Inj 2 Mg/Ml Inj 2 Ml IV 06/12/24 11:57 4 mg Q6H PRN Administration NAUSEA OR VOMITING Protocol Pantoprazole Sodium 40 mg 05/15/24 21:00 06/06/24 11:53 Pantoprazole Inj 40 Mg Vial IVP 06/14/24 20:59 40 mg BID ANGELICA Administration Pharmacy Consult 1 each 05/16/24 10:27 Pharmacy Renal Dose Adjustment 1 Ea XX 06/15/24 10:26 PRN PRN CONSULT Sodium Chloride 3 ml 05/24/24 19:00 Sodium Chloride Rt Jimena 0.9% 3 Ml Nebu INH 06/23/24 18:59 PRN PRN SOLN Timolol Maleate 1 drop 05/28/24 18:15 06/06/24 12:06 Timolol Op Jimena 0.5% 5 Ml Btl BOTH EYES 06/27/24 18:14 1 drop DAILY ANGELICA Administration Plan Summary: A 69-year-old female patient with past medical history of CKD, hypertension, prediabetes, was admitted to the hospital due to sepsis secondary to pneumonia, found to have perforated peptic ulcer. Developed septic shock and was admitted to the ICU. Patient was downgraded to telemetry however patient still has ADILSON secondary to acute tubular necrosis and shock. Assessment and plan #Acute kidney injury #Acute tubular necrosis secondary to septic shock #Anasarca Patient developed septic shock which may resulted in acute tubular necrosis. At this time patient is getting dialysis through [facility]. Patient getting TPN as the patient developed abdominal abscess secondary to GI leak most likely. At this time patient still produces 0 urine output. Plan ? Patient may be discharged, outpatient with for dialysis already arranged ? Hyponatremia will be corrected with dialysis today ? Dialysis today ? Renally dose medications including fluconazole ? Strict in and out ? Close monitoring for signs and symptoms of fluid overload as the patient is getting TPN. ? Daily renal panel #Peritonitis secondary to perforated gastric ulcer #Acute Upper GI bleed #Intra-abdominal abscess #Candidal abscess. #Metabolic acidosis, resolved #Lactic Acidosis #Acute Encephalopathy #Acute ischemic stroke #Distributive shock #Acute decompensated HF #Elevated Troponin #Hyperlipidemia #Primary Hypertension #Acute Hypoxic Respiratory failure #Pneumoperitoneum #Diabetes Mellitus type II #Acute anemia Plan ? Follow primary team recommendations Thank you for consultation please not hesitate to call will reach out if you have any question or concerns - Patient's plan and care discussed with my attending, Dr. Mata Sifuentes MD Internal Medicine PGY-2 Attending Provider Attestation/Addendum Patient seen and examined with resident physician Dr. Barton. Note reviewed, agree with findings and recommendations. Patient currently seen on dialysis. Tolerating dialysis without any problems. Hemodialysis for 3 hours, 2K, ultrafiltration 2-3 L, Epogen 6000, no heparin ordered. Plan of care discussed with the dialysis nurse. Please see dialysis flowsheet for further details. Outpatient dialysis arranged. Discharge planning per primary team.
[2024-06-07] VITALS (30 sets, daily range): BP systolic 75–166; BP diastolic 46–80; PULSE 19–109; RESP 15–20; TEMP 35.9–36.6; O2SAT 96–100; BMI 37.5
[2024-06-07] MEDS: HYDROcodone/APAP 5/325 TABLET 1 TAB PO ×4 (05:19→23:59)
[2024-06-07 06:18] LABS: Basophils # (Auto) 0.2 Thou/mm3 (0.0-0.2); Basophils % (Auto) 2 % (0-2.5); Eosinophils # (Auto) 0.4 Thou/mm3 (0.0-0.5); Eosinophils % (Auto) 4 % (0-10); Hematocrit 25.9 % (36.0-46.0); Immature Granulocytes % (Auto) 6 % (0-0); Immature Granulocytes Auto 0.56 Thou/mm3 (0.00-0.00); Lymphocytes # (Auto) 2.1 Thou/mm3 (1.0-4.8); Lymphocytes % (Auto) 21 % (10-50); Mean Corpuscular HGB Conc 31.3 g/dl (31.0-37.0); Mean Corpuscular Hemoglobin 26.1 pg (25.0-35.0); Mean Corpuscular Volume 84 fL (80-100); Monocytes # (Auto) 0.9 Thou/mm3 (0.0-0.8); Monocytes % (Auto) 9 % (0-12); Neutrophils # (Auto) 6.1 Thou/mm3 (1.8-7.7); Neutrophils % (Auto) 59 % (37-80); Nucleated Red Blood Cell # 0.06 Thou/mm3 (0.00-0.00); Nucleated Red Blood Cell % 1 /100 WBC (0); Platelet Count 274 Thou/mm3 (140-440); RDW Standard Deviation 57.2 fL (36.4-46.3); White Blood Count 10.2 Thou/mm3 (3.6-11.0)
[2024-06-07 06:34] LABS: Hemoglobin 8.1 g/dL (12.0-16.0)
[2024-06-07 07:10] LABS: Alanine Aminotransferase < 7 U/L (10-49); Albumin, Serum 3.4 gm/dL (3.4-4.8); Albumin/Globulin Ratio 0.9 (1.2-2.2); Alkaline Phosphatase 131 U/L (46-116); Anion Gap 10 (7-16); Aspartate Amino Transferase 13 U/L (0-34); BUN/Creatinine Ratio 8 Ratio (12-20); Bilirubin,Total 0.5 mg/dL (0.3-1.2); Blood Urea Nitrogen 33 mg/dL (9-23); Calcium 9.4 mg/dL (8.3-10.6); Calcium (Corrected) 9.9 mg/dL (8.5-10.1); Carbon Dioxide 26.5 mMol/L (20.0-31.0); Chloride 97 mMol/L (98-107); Creatinine (Component) 4.4 mg/dL (0.6-1.3); Estimated Creatinine Clearance 10.7 mL/min (>60); Globulin 3.6 gm/dL (2.3-3.5); Glucose 82 mg/dL (74-106); Osmolality,Calculated 272 (275-295); Sodium 133 mMol/L (136-145); eGFR 10 See Note
--- NOTE | 2024-06-07 07:45 | ESPR_ITS ---
Documentation for date of: 06/07/24 Subjective Subjective Interval history: Patient examined at bedside today. No acute overnight events. On telemetry she maintained still being A-fib but rate controlled. Patient says she is doing okay. She experiencing minimal abdominal pain at this time no chest pain or shortness of breath. She denies any fever or chills changes in respiratory status. No other complaints at this time Exam Vital Signs Temp Pulse Resp BP Pulse Ox O2 Del Method O2 Flow Rate 97.1 F 88 19 146/49 H 100 Nasal Cannula 2 06/07/24 04:00 06/07/24 05:19 06/07/24 04:00 06/07/24 05:19 06/07/24 04:00 06/07/24 04:00 06/07/24 04:00 FiO2 4 06/07/24 00:00 Narrative Exam General: AAOx3, obese female, no active distress at this time, however appears to be more lethargic HEENT: Moist mucous membranes, conjunctiva clear, EOMI, PERRLA, Cardiovascular: S1, S2, radial pulses +2 bilat, irregularly irregular rhythm Pulmonary: CTAB bilat no cough, no wheezing GI: Accordion and percutaneous drains present no output at this time, bandages present, no ascites, mildly distended Extremities: No presence of trace or pitting edema in lower extremities bilaterally, dorsalis pedis pulses +2 bilaterally Neuro: AAOx3, no focal motor or sensory deficits in the UE or LE bilat Psych: Cooperative Objective Labs 06/07/24 05:20 06/07/24 08:25 Labs: Laboratory Results - last 24 hr 06/06/24 06/07/24 04:46 05:20 WBC 10.2 RBC 3.10 L Hgb 8.1 L Hct 25.9 L MCV 84 MCH 26.1 MCHC 31.3 RDW Std Deviation 57.2 H Plt Count 274 Neut % (Auto) 59 Lymph % (Auto) 21 [place] % (Auto) 9 Eos % (Auto) 4 Baso % (Auto) 2 Neut # (Auto) 6.1 Lymph # (Auto) 2.1 [place] # (Auto) 0.9 H Eos # (Auto) 0.4 Baso # (Auto) 0.2 Immature Gran # (Auto) 0.56 H Absolute Nucleated RBC 0.06 H Immature Gran % 6 H Nucleated RBC % 1 H Sodium 133 L Potassium 4.0 Chloride 97 L Carbon Dioxide 26.5 Anion Gap 10 BUN 33 H Creatinine 4.4 H* D Estim Creat Clear Calc 10.7 L eGFR 10 L* BUN/Creatinine Ratio 8 L Glucose 82 Calculated Osmolality 272 L Calcium 9.4 Corrected Calcium 9.9 Phosphorus 5.0 Magnesium 3.0 H Total Bilirubin 0.5 AST 13 ALT < 7 L Alkaline Phosphatase 131 H Total Protein 7.0 Albumin 3.4 Globulin 3.6 H Albumin/Globulin Ratio 0.9 L ABG Interpretation ABG results: 05/13/24 05/15/24 05/15/24 08:29 15:28 16:03 ABG pH 7.39 7.05 L* D 7.17 L* D ABG pCO2 31 L 63 H D 45 D ABG pO2 78 L 38 L* D 84 D ABG HCO3 19 L 18 L 16 L ABG O2 Saturation 96 59 L 96 ABG Base Excess -5 L -12 L -11 L VBG pH VBG pCO2 VBG pO2 VBG Base Excess 05/16/24 05/17/24 05/18/24 04:38 04:03 04:20 ABG pH 7.28 L D 7.38 D 7.49 H D ABG pCO2 34 D 28 L 30 L ABG pO2 96 85 66 L ABG HCO3 16 L 17 L 23 ABG O2 Saturation 98 97 94 ABG Base Excess -10 L -8 L 0 VBG pH VBG pCO2 VBG pO2 VBG Base Excess 05/19/24 05/20/24 05/21/24 09:05 06:05 22:35 ABG pH 7.30 L D 7.41 D ABG pCO2 49 H D 42 ABG pO2 63 L 63 L ABG HCO3 24 27 H ABG O2 Saturation 91 93 ABG Base Excess -3 2 VBG pH 7.31 L VBG pCO2 50 VBG pO2 39 VBG Base Excess -2 05/26/24 05/29/24 04:17 12:28 ABG pH 7.38 7.42 ABG pCO2 42 35 ABG pO2 81 L 67 L ABG HCO3 25 23 ABG O2 Saturation 97 95 ABG Base Excess 0 -2 VBG pH VBG pCO2 VBG pO2 VBG Base Excess Quality Measures Quality Measures VTE prophylaxis (Heparin) Advance care planning discussed with:: patient Assessment & Plan Assessment Current Active Medications: Generic Name Dose Route Start Last Admin Trade Name Freq PRN Reason Stop Dose Admin Hydrocodone Bitart/Acetaminophen 1 tab 06/03/24 12:00 06/07/24 05:19 Hydrocodone/Apap 5/325 Tablet PO 06/08/24 11:59 1 tab Q6HR ANGELICA Administration Albuterol/Ipratropium 3 ml 05/27/24 18:08 06/05/24 07:27 Albuterol/Ipratropium (Duoneb) Rt Jimena 3 Ml Nebu INH 06/26/24 18:07 3 ml Q2HR PRN Administration SHORTNESS OF BREATH OR WHEEZE Amiodarone HCl 200 mg 05/29/24 15:00 06/06/24 21:18 Amiodarone Hcl 200 Mg Tablet PO 06/28/24 14:59 200 mg BID ANGELICA Administration Benzocaine 1 lozenge 05/31/24 11:53 05/31/24 12:54 Benzocaine/Menthol 1 Lozenge PO 06/30/24 11:52 1 lozenge Q4HR PRN Administration Sore throat Dextrose 25 ml 05/24/24 15:43 Dextrose 50%-Water Inj 50 Ml Syringe IV 06/23/24 15:42 Q15MIN PRN BG 50-70 responsive npo pt Dextrose 50 ml 05/24/24 15:43 Dextrose 50%-Water Inj 50 Ml Syringe IV 06/23/24 15:42 Q15MIN PRN BG <50 OR BG <70 & pt unresponsive Fluconazole 400 mg 06/02/24 09:00 06/06/24 11:54 Fluconazole 100 Mg Tablet PO 06/09/24 08:59 400 mg QDAY ANGELICA Administration Glucagon 1 mg 05/24/24 15:43 Glucagon Inj 1 Mg Vial IM Q15MIN PRN BG <70, and no IV access Heparin Sodium (Porcine) 3,500 unit 06/03/24 15:24 06/06/24 11:13 Heparin Sod Inj 1000 Unit/Ml Vial 10 Ml INDWELLCAT 06/17/24 15:23 3,500 unit X1 PRN Administration DIALYSIS Insulin Glargine 12 unit 05/25/24 09:00 06/06/24 11:58 Insulin Glargine (Lantus) 5 Unit/0.05 Ml (Per 5 Units) SC 06/24/24 08:59 Not Given QDAY ANGELICA Insulin Human Lispro 0 unit 05/24/24 18:00 06/07/24 05:19 Insulin Lispro (Admelog) 1 Unit/0.01 Ml Unit SC 06/23/24 17:59 Not Given Q6HR ANGELICA Protocol Lidocaine 1 patch 05/30/24 09:16 06/01/24 19:01 Lidocaine 5% 1 Patch TOP 06/29/24 09:15 1 patch DAILY PRN Administration BACK PAIN Midodrine 10 mg 06/01/24 20:21 06/07/24 05:19 Midodrine 5 Mg Tablet PO 06/29/24 11:59 Not Given QID ANGELICA Mirtazapine 15 mg 06/06/24 14:30 06/06/24 14:30 Mirtazapine 15 Mg Tablet PO 07/06/24 14:29 15 mg QDAY ANGELICA Administration Ondansetron HCl 4 mg 05/13/24 11:58 05/14/24 12:31 Ondansetron Inj 2 Mg/Ml Inj 2 Ml IV 06/12/24 11:57 4 mg Q6H PRN Administration NAUSEA OR VOMITING Protocol Pantoprazole Sodium 40 mg 05/15/24 21:00 06/06/24 21:19 Pantoprazole Inj 40 Mg Vial IVP 06/14/24 20:59 40 mg BID ANGELICA Administration Pharmacy Consult 1 each 05/16/24 10:27 Pharmacy Renal Dose Adjustment 1 Ea XX 06/15/24 10:26 PRN PRN CONSULT Sodium Chloride 3 ml 05/24/24 19:00 Sodium Chloride Rt Jimena 0.9% 3 Ml Nebu INH 06/23/24 18:59 PRN PRN SOLN Timolol Maleate 1 drop 05/28/24 18:15 06/06/24 12:06 Timolol Op Jimena 0.5% 5 Ml Btl BOTH EYES 06/27/24 18:14 1 drop DAILY ANGELICA Administration Plan Assessment Ms. Castellanos is a 69-year-old female with past medical history significant for hypertension, diabetes and history of gastric ulcers who presented to the ED on 05/13/2024 after she was found unconscious on the floor. Per chart reviewing prior to this unconsciousness patient was having abdominal pain and generalized weakness with diarrhea and shortness of breath for 2 days. Patient was admitted to the hospital for treatment and management of sepsis secondary to pneumonia. Patient was given 1 L normal saline and started on ceftriaxone and azithromycin. patient underwent ex lap surgery for perforated gastric ulcer. Patient remained intubated postop and was upgraded to the ICU. Patient continues to be on dialysis after downgrade, has BALAJI and accordion drain intact, completed bowel rest, was started on dysphagia 1 diet, surgery following case closely, will continue to monitor. #New onset A-fib with RVR, improving New onset of Afib, likely related to septic shock requiring pressor support and increased demand from perforated ulcer complicated by abdominal abscesses Pt appears to still be in A-fib, rate controlled, 90s to mid 100s Previous EKG shows a-fib w/RVR CHADVASC: 5 Pts 7.2 % stroke risk per year HAS-BLED score: 3, high risk of major bleeding Plan: -Continue with Oral Amio 200 mg BID -Eliquis 5 mg twice daily resumed by primary team #Acute exacerbation of HFpEF #HFpEF EF 55 to 60% #History of primary hypertension -Echo 05/16/2024 -estimated EF of 55 to 60%, stage I diastolic dysfunction noted, Moderate to severe posterior MAC Pt has new onset of ESRD requiring HD, requiring midodrine 10 mg QID to tolerate HD Not resuming home amlodipine at this time due to patient being A-fib and blood pressure eventually be controlled with beta-christian At this point, we recommend to down-titrate midodrine to either 5 mg TID or 10 mg BID, as it sounds pt requires the midodrine during dialysis sessions Plan: ?Resume GDMT as able ?Fluid restriction ?Daily weights ?Strict ins and outs ?Keep potassium and magnesium above 4 and 2 respectively #Hx of Diabetes Mellitus type II Most recent A1c 05/21/2024: 6.2 Plan: Management by primary team #Perforated gastric ulcer #Pneumoperitoneum #Peritonitis secondary to perforated gastric ulcer #Abdominal Abscess, s/p percutaneous drainage x2 Patient found to have tender abdomen, rigidity in the epigastrium, chest x-ray showed elevation of hemidiaphragm, CT abdomen showed pneumoperitoneum, concern for perforated viscus, general surgeon Dr. Santana was consulted for emergency laparotomy and possible repair of perforated gastric ulcer. Repeat CT abd/pel on 05/20 revealed Pneumoperitoneum, orogastric tube in the stomach, mild free fluid adjacent to the stomach and anterior to the pancreas. s/p Exploratory laparotomy & repair of perforated gastric ulcer - 05/15. 06/01/24: Overnight there was concern of wound dehiscence. Discussed with general surgeon per surgery superior aspect of the wound was dehiscent after removal of aixa.Surgery removal of BALAJI drain on 06/01. Repeat CT on 06/01- More pronounced fluid collection in the left abdomen below the spleen, 8.9 x 6.4cm, free fluid in the abdomen and pelvis, and Ascites -Abscess culture from 05/25 grew edna albicans ?Repeat CT abdomen pelvis shows abscess collection lower left abdomen has markedly decreased in size and the accordion drains have no output this morning Plan: Management by primary hospitalist team #Acute blood loss anemia, stable Likely related to perforated ulcer Hgb stable ~9.0 Iron studies unremarkable (TIBC, Iron), will hold off on giving iron Given Erythropoeitin by Nephrology Plan: Management by primary hospitalist team #Acute tubular necrosis, requiring hemodialysis #Acute Hypoxic Respiratory failure #Acute Upper GI bleed - stable #Hyperlipidemia #Acute blood loss anemia, stable #Acute encephalopathy-resolved #Septic Shock - resolved #Hypoosmolar Hyponatremia, resolved Above managed by primary hospitalist team Patient seen and care discussed with my attending physician, Dr. Susan Mathews, PGY-1 Attending Provider Attestation/Addendum I have personally seen and examined the patient separately on the above date of service and discussed the plan of care with the resident. I reviewed the resident Dr. Hernandes consultation progress note and agree with the resident findings and plan in the note above and have also edited the documentation to reflect my findings and plan. Jalen Davis M.D. Interventional Cardiology
[2024-06-07 09:24] LABS: Partial Thromboplastin Time 31.5 Seconds (22.0-36.0)
[2024-06-07] MEDS: APIXABAN 2.5 MG TABLET 5 MG PO ×2 (09:36→20:46)
[2024-06-07] MEDS: MIRTAZAPINE 15 MG TABLET PO (09:36)
[2024-06-07] MEDS: FLUCONAZOLE 100 MG TABLET 400 MG PO (09:36)
[2024-06-07] MEDS: PANTOPRAZOLE INJ 40 MG VIAL IVP ×2 (09:37→20:46)
[2024-06-07] MEDS: AMIODARONE HCL 200 MG TABLET PO ×2 (09:37→20:45)
[2024-06-07] MEDS: TIMOLOL OP SOL 0.5% 5 ML BTL 1 DROP BOTH EYES (09:49)
--- NOTE | 2024-06-07 09:54 | PC.SS ---
Follow up note: Pt is possible d/c if she eats. Pt will d/c to [facility]. Pt first session of dialysis is tomorrow at 9:45am at [facility]. Ebony from [facility] is aware.
[2024-06-07 09:57] LABS: Alanine Aminotransferase < 7 U/L (10-49); Albumin, Serum 3.5 gm/dL (3.4-4.8); Alkaline Phosphatase 130 U/L (46-116); Anion Gap 10 (7-16); Aspartate Amino Transferase < 8 U/L (0-34); BUN/Creatinine Ratio 8 Ratio (12-20); Bilirubin,Total 0.6 mg/dL (0.3-1.2); Blood Urea Nitrogen 34 mg/dL (9-23); Calcium 9.6 mg/dL (8.3-10.6); Carbon Dioxide 24.6 mMol/L (20.0-31.0); Chloride 97 mMol/L (98-107); Creatinine (Component) 4.3 mg/dL (0.6-1.3); Globulin 3.5 gm/dL (2.3-3.5); Glucose 80 mg/dL (74-106); Magnesium 2.4 mg/dL (1.6-2.6); Osmolality,Calculated 271 (275-295); Potassium 4.1 mMol/L (3.4-5.1); Sodium 132 mMol/L (136-145); eGFR 11 See Note
--- NOTE | 2024-06-07 10:41 | CHAP ---
Patient was visited by a Spiritual Care Volunteer on 06/07/2024 between 0900 and 1036 and received comfort, encouragement and/or prayer.
[2024-06-07] MEDS: droNABinol 2.5 MG CAPSULE 5 MG PO (10:49)
--- NOTE | 2024-06-07 10:50 | XR_ITS ---
Examination: AP chest single view Technique one AP portable semiupright chest single view Exam date and time: May 2024 1106 hours Comparison May 29, 2024 INDICATIONS: Inpatient with right lung abnormal sounds on auscultation today. FINDINGS: Early bibasilar pneumonia Mild heart failure with cardiomegaly and prominent vascular congestion or early septal edema Left internal jugular dialysis catheter tip right atrium IMPRESSION: Mild heart failure Early bibasilar pneumonia
--- NOTE | 2024-06-07 11:02 | PD.IMPROG ---
Documentation for date of: 06/07/24 Subjective Subjective Interval history: Patient evaluated Hemoglobin hematocrit 8.1 and 25.9 Poor p.o. intake Exam Vital Signs Temp Pulse Resp BP Pulse Ox O2 Del Method O2 Flow Rate 96.6 F L 109 H 18 166/80 H 97 Nasal Cannula 1 06/07/24 08:00 06/07/24 09:37 06/07/24 08:18 06/07/24 09:37 06/07/24 08:18 06/07/24 08:00 06/07/24 08:18 FiO2 4 06/07/24 00:00 Constitutional Comments: Chronically ill-appearing Routine Abdominal Exam Comments: Positive bowel sounds Objective Labs 06/07/24 05:20 06/07/24 08:25 Labs: Laboratory Results - last 24 hr 06/07/24 06/07/24 05:20 08:25 WBC 10.2 RBC 3.10 L Hgb 8.1 L Hct 25.9 L MCV 84 MCH 26.1 MCHC 31.3 RDW Std Deviation 57.2 H Plt Count 274 Neut % (Auto) 59 Lymph % (Auto) 21 [place] % (Auto) 9 Eos % (Auto) 4 Baso % (Auto) 2 Neut # (Auto) 6.1 Lymph # (Auto) 2.1 [place] # (Auto) 0.9 H Eos # (Auto) 0.4 Baso # (Auto) 0.2 Immature Gran # (Auto) 0.56 H Absolute Nucleated RBC 0.06 H Immature Gran % 6 H Nucleated RBC % 1 H APTT 31.5 D Sodium 133 L 132 L Potassium 4.0 4.1 Chloride 97 L 97 L Carbon Dioxide 26.5 24.6 Anion Gap 10 10 BUN 33 H 34 H Creatinine 4.4 H* D 4.3 H* Estim Creat Clear Calc 10.7 L 11.0 L eGFR 10 L* 11 L* BUN/Creatinine Ratio 8 L 8 L Glucose 82 80 Calculated Osmolality 272 L 271 L Calcium 9.4 9.6 Corrected Calcium 9.9 10.0 Magnesium 2.4 Total Bilirubin 0.5 0.6 AST 13 < 8 ALT < 7 L < 7 L Alkaline Phosphatase 131 H 130 H Total Protein 7.0 7.0 Albumin 3.4 3.5 Globulin 3.6 H 3.5 Albumin/Globulin Ratio 0.9 L 1.0 L Impressions Impression: # Perforated gastric ulcer requiring surgical intervention # Poor p.o. intake encouraged p.o. intake spoke with the family ABG Interpretation ABG results: 05/13/24 05/15/24 05/15/24 08:29 15:28 16:03 ABG pH 7.39 7.05 L* D 7.17 L* D ABG pCO2 31 L 63 H D 45 D ABG pO2 78 L 38 L* D 84 D ABG HCO3 19 L 18 L 16 L ABG O2 Saturation 96 59 L 96 ABG Base Excess -5 L -12 L -11 L VBG pH VBG pCO2 VBG pO2 VBG Base Excess 05/16/24 05/17/24 05/18/24 04:38 04:03 04:20 ABG pH 7.28 L D 7.38 D 7.49 H D ABG pCO2 34 D 28 L 30 L ABG pO2 96 85 66 L ABG HCO3 16 L 17 L 23 ABG O2 Saturation 98 97 94 ABG Base Excess -10 L -8 L 0 VBG pH VBG pCO2 VBG pO2 VBG Base Excess 05/19/24 05/20/24 05/21/24 09:05 06:05 22:35 ABG pH 7.30 L D 7.41 D ABG pCO2 49 H D 42 ABG pO2 63 L 63 L ABG HCO3 24 27 H ABG O2 Saturation 91 93 ABG Base Excess -3 2 VBG pH 7.31 L VBG pCO2 50 VBG pO2 39 VBG Base Excess -2 05/26/24 05/29/24 04:17 12:28 ABG pH 7.38 7.42 ABG pCO2 42 35 ABG pO2 81 L 67 L ABG HCO3 25 23 ABG O2 Saturation 97 95 ABG Base Excess 0 -2 VBG pH VBG pCO2 VBG pO2 VBG Base Excess Assessment & Plan A&P Narrative abd abscess, stain neg. later grew c albicans so on flucon now here since 05/13.usual rx for most things is 7d. left on merrem thru weekend but collection in abd eventually grew a yeast, so ok for another 7d rx will see again if requested Time Spent With Patient Time: Total time spent is greater than 50% in coordination of care (as documented) at patient's floor/unit and/or counseling patient:
--- NOTE | 2024-06-07 11:23 | PD.RESPRO ---
Documentation for date of: 06/07/24 Subjective Subjective Interval history: Patient was seen and examined at bedside, seems to be sleepy however she was arousable. Seems to be mildly lethargic Today vitals showed blood pressure of 166/80, pulse rate of 1 , She is on 1 L of oxygen saturating 97% does not seems to be overloaded. Her labs show hemoglobin level of 8.1, sodium 132, potassium 4.1, chloride 97, creatinine 4.3, BUN of 34 calcium is 10. Exam Vital Signs Temp Pulse Resp BP Pulse Ox O2 Del Method O2 Flow Rate 96.6 F L 109 H 18 166/80 H 97 Nasal Cannula 1 06/07/24 08:00 06/07/24 09:37 06/07/24 08:18 06/07/24 09:37 06/07/24 08:18 06/07/24 08:00 06/07/24 08:18 FiO2 4 06/07/24 00:00 Narrative Exam PatientGEN: AOx3, seems to be lethargic, HEENT: NC/AC, oral mucosa moist, neck supple CVS: RRR, S1-S2 present, no murmurs appreciated RESP: Mild wheezing bilaterally GI: soft,non distended, non tender, NBS, MSK: able to move all 4 limbs, no lower extremity edema SKIN: warm and dry [employer]CHITECT: CN II-XII and Sensation grossly intact. Objective Labs 06/07/24 05:20 06/07/24 08:25 Labs: Laboratory Results - last 24 hr 06/07/24 06/07/24 05:20 08:25 WBC 10.2 RBC 3.10 L Hgb 8.1 L Hct 25.9 L MCV 84 MCH 26.1 MCHC 31.3 RDW Std Deviation 57.2 H Plt Count 274 Neut % (Auto) 59 Lymph % (Auto) 21 [place] % (Auto) 9 Eos % (Auto) 4 Baso % (Auto) 2 Neut # (Auto) 6.1 Lymph # (Auto) 2.1 [place] # (Auto) 0.9 H Eos # (Auto) 0.4 Baso # (Auto) 0.2 Immature Gran # (Auto) 0.56 H Absolute Nucleated RBC 0.06 H Immature Gran % 6 H Nucleated RBC % 1 H APTT 31.5 D Sodium 133 L 132 L Potassium 4.0 4.1 Chloride 97 L 97 L Carbon Dioxide 26.5 24.6 Anion Gap 10 10 BUN 33 H 34 H Creatinine 4.4 H* D 4.3 H* Estim Creat Clear Calc 10.7 L 11.0 L eGFR 10 L* 11 L* BUN/Creatinine Ratio 8 L 8 L Glucose 82 80 Calculated Osmolality 272 L 271 L Calcium 9.4 9.6 Corrected Calcium 9.9 10.0 Magnesium 2.4 Total Bilirubin 0.5 0.6 AST 13 < 8 ALT < 7 L < 7 L Alkaline Phosphatase 131 H 130 H Total Protein 7.0 7.0 Albumin 3.4 3.5 Globulin 3.6 H 3.5 Albumin/Globulin Ratio 0.9 L 1.0 L ABG Interpretation ABG results: 05/13/24 05/15/24 05/15/24 08:29 15:28 16:03 ABG pH 7.39 7.05 L* D 7.17 L* D ABG pCO2 31 L 63 H D 45 D ABG pO2 78 L 38 L* D 84 D ABG HCO3 19 L 18 L 16 L ABG O2 Saturation 96 59 L 96 ABG Base Excess -5 L -12 L -11 L VBG pH VBG pCO2 VBG pO2 VBG Base Excess 05/16/24 05/17/24 05/18/24 04:38 04:03 04:20 ABG pH 7.28 L D 7.38 D 7.49 H D ABG pCO2 34 D 28 L 30 L ABG pO2 96 85 66 L ABG HCO3 16 L 17 L 23 ABG O2 Saturation 98 97 94 ABG Base Excess -10 L -8 L 0 VBG pH VBG pCO2 VBG pO2 VBG Base Excess 05/19/24 05/20/24 05/21/24 09:05 06:05 22:35 ABG pH 7.30 L D 7.41 D ABG pCO2 49 H D 42 ABG pO2 63 L 63 L ABG HCO3 24 27 H ABG O2 Saturation 91 93 ABG Base Excess -3 2 VBG pH 7.31 L VBG pCO2 50 VBG pO2 39 VBG Base Excess -2 05/26/24 05/29/24 04:17 12:28 ABG pH 7.38 7.42 ABG pCO2 42 35 ABG pO2 81 L 67 L ABG HCO3 25 23 ABG O2 Saturation 97 95 ABG Base Excess 0 -2 VBG pH VBG pCO2 VBG pO2 VBG Base Excess Quality Measures Quality Measures VTE prophylaxis (Heparin) Advance care planning discussed with:: patient Assessment & Plan Assessment Current Active Medications: Generic Name Dose Route Start Last Admin Trade Name Freq PRN Reason Stop Dose Admin Hydrocodone Bitart/Acetaminophen 1 tab 06/03/24 12:00 06/07/24 05:19 Hydrocodone/Apap 5/325 Tablet PO 06/08/24 11:59 1 tab Q6HR ANGELICA Administration Albuterol/Ipratropium 3 ml 05/27/24 18:08 06/05/24 07:27 Albuterol/Ipratropium (Duoneb) Rt Jimena 3 Ml Nebu INH 06/26/24 18:07 3 ml Q2HR PRN Administration SHORTNESS OF BREATH OR WHEEZE Amiodarone HCl 200 mg 05/29/24 15:00 06/07/24 09:37 Amiodarone Hcl 200 Mg Tablet PO 06/28/24 14:59 200 mg BID ANGELICA Administration Apixaban 5 mg 06/07/24 09:00 06/07/24 09:36 Apixaban 2.5 Mg Tablet PO 07/07/24 08:59 5 mg BID ANGELICA Administration Benzocaine 1 lozenge 05/31/24 11:53 05/31/24 12:54 Benzocaine/Menthol 1 Lozenge PO 06/30/24 11:52 1 lozenge Q4HR PRN Administration Sore throat Dextrose 25 ml 05/24/24 15:43 Dextrose 50%-Water Inj 50 Ml Syringe IV 06/23/24 15:42 Q15MIN PRN BG 50-70 responsive npo pt Dextrose 50 ml 05/24/24 15:43 Dextrose 50%-Water Inj 50 Ml Syringe IV 06/23/24 15:42 Q15MIN PRN BG <50 OR BG <70 & pt unresponsive Dronabinol 5 mg 06/07/24 10:40 06/07/24 10:49 Dronabinol 2.5 Mg Capsule PO 07/07/24 10:39 5 mg BIDAC ANGELICA Administration Fluconazole 200 mg 06/08/24 09:00 Fluconazole 100 Mg Tablet PO 06/15/24 08:59 QDAY ANGELICA Glucagon 1 mg 05/24/24 15:43 Glucagon Inj 1 Mg Vial IM Q15MIN PRN BG <70, and no IV access Insulin Glargine 12 unit 05/25/24 09:00 06/07/24 09:36 Insulin Glargine (Lantus) 5 Unit/0.05 Ml (Per 5 Units) SC 06/24/24 08:59 Not Given QDAY [facility] Insulin Human Lispro 0 unit 05/24/24 18:00 06/07/24 05:19 Insulin Lispro (Admelog) 1 Unit/0.01 Ml Unit SC 06/23/24 17:59 Not Given Q6HR [facility] Protocol Lidocaine 1 patch 05/30/24 09:16 06/01/24 19:01 Lidocaine 5% 1 Patch TOP 06/29/24 09:15 1 patch DAILY PRN Administration BACK PAIN Midodrine 10 mg 06/07/24 21:00 Midodrine 5 Mg Tablet PO 07/07/24 20:59 BID ANGELICA Ondansetron HCl 4 mg 05/13/24 11:58 05/14/24 12:31 Ondansetron Inj 2 Mg/Ml Inj 2 Ml IV 06/12/24 11:57 4 mg Q6H PRN Administration NAUSEA OR VOMITING Protocol Pantoprazole Sodium 40 mg 05/15/24 21:00 06/07/24 09:37 Pantoprazole Inj 40 Mg Vial IVP 06/14/24 20:59 40 mg BID ANGELICA Administration Pharmacy Consult 1 each 05/16/24 10:27 Pharmacy Renal Dose Adjustment 1 Ea XX 06/15/24 10:26 PRN PRN CONSULT Sodium Chloride 3 ml 05/24/24 19:00 Sodium Chloride Rt Jimena 0.9% 3 Ml Nebu INH 06/23/24 18:59 PRN PRN SOLN Timolol Maleate 1 drop 05/28/24 18:15 06/07/24 09:49 Timolol Op Jimena 0.5% 5 Ml Btl BOTH EYES 06/27/24 18:14 1 drop DAILY ANGELICA Administration Plan Summary: A 69-year-old female patient with past medical history of CKD, hypertension, prediabetes, was admitted to the hospital due to sepsis secondary to pneumonia, found to have perforated peptic ulcer. Developed septic shock and was admitted to the ICU. Patient was downgraded to telemetry however patient still has ADILSON secondary to acute tubular necrosis and shock. Assessment and plan #Acute kidney injury #Acute tubular necrosis secondary to septic shock #Anasarca Patient developed septic shock which may resulted in acute tubular necrosis. At this time patient is getting dialysis through [facility]. Patient getting TPN as the patient developed abdominal abscess secondary to GI leak most likely. At this time patient still produces 0 urine output. Plan ? Patient may be discharged, outpatient with for dialysis already arranged ? Sodium level was corrected yesterday and today is 132 ? No dialysis today ? Renally dose medications including fluconazole ? Strict in and out ? Close monitoring for signs and symptoms of fluid overload as the patient is getting TPN. ? Daily renal panel #Peritonitis secondary to perforated gastric ulcer #Acute Upper GI bleed #Intra-abdominal abscess #Candidal abscess. #Metabolic acidosis, resolved #Lactic Acidosis #Acute Encephalopathy #Acute ischemic stroke #Distributive shock #Acute decompensated HF #Elevated Troponin #Hyperlipidemia #Primary Hypertension #Acute Hypoxic Respiratory failure #Pneumoperitoneum #Diabetes Mellitus type II #Acute anemia Plan ? Follow primary team recommendations Thank you for consultation please not hesitate to call will reach out if you have any question or concerns - Patient's plan and care discussed with my attending, Dr. Mata Sifuentes MD Internal Medicine PGY-2 Attending Provider Attestation/Addendum Patient seen and examined with resident physician Dr. Barton. Note reviewed, agree with findings and recommendations. Noted patient still with fluid overload. Will do extra session today. Patient currently seen on dialysis. Tolerating dialysis without any problems. Hemodialysis for 3 hours, sequential ultrafiltration 2-3 L, Epogen 6000, no heparin ordered. Plan of care discussed with the dialysis nurse. Please see dialysis flowsheet for further details. Outpatient dialysis arranged. Discharge planning per primary team.
--- NOTE | 2024-06-07 15:07 | PC.NURSE ---
PT HR LOW PT DENIES ALL C/O CHEST PAIN, PRESSURE, JESUS, SOB OR DISCOMFORT. BFR TO 200 D/T INCREASED AP DESPITE ALL INTERVENTIONS, WILL CONT. TO MONITOR
--- NOTE | 2024-06-07 15:17 | PC.NURSE ---
BP LOW, PT DENIES COMPLAINTS, UF OFF. WILL ADMIN PRN ALBUMIN AND CONT. TO MONITOR
[2024-06-07] MEDS: ALBUMIN HUMAN 25% IVPB 25 GM/100 ML BTL IV (15:18)
--- NOTE | 2024-06-07 15:26 | PC.NURSE ---
BP TRENDING UP, PT CONT'S. TO DENY ALL COMPLAINTS UF GOAL LOWERED TO 1.5l TOLERATED WILL CONT. TO MONITOR
--- NOTE | 2024-06-07 15:33 | PC.NURSE ---
BP TRENDING DOWN, PT DENIES ALL COMPLAINTS. UF GOAL LOWERED TO 1.2L TOLERATED
--- NOTE | 2024-06-07 16:17 | PC.NURSE ---
BP LOW, PT DENIES ALL COMPLAINTS, UF GOAL LOWERED TO 1L TOLERATED WILL CONT. TO MONITOR
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
[2024-06-07] MEDS: HEPARIN SOD INJ 1000 UNIT/ML VIAL 10 ML 3500 UNIT INDWELLCAT (18:15)
[2024-06-07] MEDS: MIDODRINE 5 MG TABLET 10 MG PO (20:42)
--- NOTE | 2024-06-07 23:10 | PD.NEUROPROG ---
Documentation for date of: 06/07/24 Subjective Subjective Interval history: Patient was seen in telemetry today at the bedside when she came back from dialysis. No new symptoms reported. Exam - Neurology Vital Signs Temp Pulse Resp BP Pulse Ox O2 Del Method O2 Flow Rate 96.6 F L 99 15 131/67 H 98 Nasal Cannula 2 06/07/24 20:00 06/07/24 20:45 06/07/24 20:00 06/07/24 20:45 06/07/24 20:00 06/07/24 20:00 06/07/24 20:00 FiO2 4 06/07/24 00:00 Narrative Exam GENERAL APPEARANCE: Well-developed, obese built female in no significant distress HEENT: Normocephalic, atraumatic, extraocular movements intact. Pupils: Equal reacting to light NECK: Supple, no JVD or bruits. CARDIOVASULAR: Heart: S1, S2 heard, irregular without S3-S4 or murmur no rubs or gallops. LUNGS/CHEST: Clear to auscultation bilaterally. No rails, rhonchi, or wheezing. Normal inspection. ABDOMEN: Soft, nontender, with normal bowel sounds. No pulsatile masses. No rebound, rigidity, or guarding. Normal inspection and palpation. EXTREMITIES: Significant edema in both upper and lower extremities. SKIN: Warm and dry without rashes. Normal inspection. MUSCULOSKELETAL: No cervical, thoracic, lumbar or midline bony tenderness. Normal inspection. NEURO: Alert, awake, follows commands consistently. Brainstem function: Intact. Moves all 4 extremities but significantly weak all over, no signs of meningeal irritation noted. PSYCHIATRIC: Mood and affect: Normal Objective Labs 06/07/24 05:20 06/07/24 08:25 Labs: Laboratory Results - last 24 hr 06/07/24 06/07/24 05:20 08:25 WBC 10.2 RBC 3.10 L Hgb 8.1 L Hct 25.9 L MCV 84 MCH 26.1 MCHC 31.3 RDW Std Deviation 57.2 H Plt Count 274 Neut % (Auto) 59 Lymph % (Auto) 21 [place] % (Auto) 9 Eos % (Auto) 4 Baso % (Auto) 2 Neut # (Auto) 6.1 Lymph # (Auto) 2.1 [place] # (Auto) 0.9 H Eos # (Auto) 0.4 Baso # (Auto) 0.2 Immature Gran # (Auto) 0.56 H Absolute Nucleated RBC 0.06 H Immature Gran % 6 H Nucleated RBC % 1 H APTT 31.5 D Sodium 133 L 132 L Potassium 4.0 4.1 Chloride 97 L 97 L Carbon Dioxide 26.5 24.6 Anion Gap 10 10 BUN 33 H 34 H Creatinine 4.4 H* D 4.3 H* Estim Creat Clear Calc 10.7 L 11.0 L eGFR 10 L* 11 L* BUN/Creatinine Ratio 8 L 8 L Glucose 82 80 Calculated Osmolality 272 L 271 L Calcium 9.4 9.6 Corrected Calcium 9.9 10.0 Magnesium 2.4 Total Bilirubin 0.5 0.6 AST 13 < 8 ALT < 7 L < 7 L Alkaline Phosphatase 131 H 130 H Total Protein 7.0 7.0 Albumin 3.4 3.5 Globulin 3.6 H 3.5 Albumin/Globulin Ratio 0.9 L 1.0 L ABG Interpretation ABG results: 05/13/24 05/15/24 05/15/24 08:29 15:28 16:03 ABG pH 7.39 7.05 L* D 7.17 L* D ABG pCO2 31 L 63 H D 45 D ABG pO2 78 L 38 L* D 84 D ABG HCO3 19 L 18 L 16 L ABG O2 Saturation 96 59 L 96 ABG Base Excess -5 L -12 L -11 L VBG pH VBG pCO2 VBG pO2 VBG Base Excess 05/16/24 05/17/24 05/18/24 04:38 04:03 04:20 ABG pH 7.28 L D 7.38 D 7.49 H D ABG pCO2 34 D 28 L 30 L ABG pO2 96 85 66 L ABG HCO3 16 L 17 L 23 ABG O2 Saturation 98 97 94 ABG Base Excess -10 L -8 L 0 VBG pH VBG pCO2 VBG pO2 VBG Base Excess 05/19/24 05/20/24 05/21/24 09:05 06:05 22:35 ABG pH 7.30 L D 7.41 D ABG pCO2 49 H D 42 ABG pO2 63 L 63 L ABG HCO3 24 27 H ABG O2 Saturation 91 93 ABG Base Excess -3 2 VBG pH 7.31 L VBG pCO2 50 VBG pO2 39 VBG Base Excess -2 05/26/24 05/29/24 04:17 12:28 ABG pH 7.38 7.42 ABG pCO2 42 35 ABG pO2 81 L 67 L ABG HCO3 25 23 ABG O2 Saturation 97 95 ABG Base Excess 0 -2 VBG pH VBG pCO2 VBG pO2 VBG Base Excess Assessment & Plan Additional Assessment & Plan Additional Plan: 69-year-old female with past medical history of CKD stage III, prediabetes, hypertension who was found unconscious in her room. As well as diarrhea and shortness of breath. Admitted for sepsis secondary to pneumonia and acute metabolic encephalopathy #Acute metabolic encephalopathy- currently in telemetry, significant improvement noted, close to baseline #Generalized weakness --Brain MRI with MRA shows significant stenoses in posterior cerebral artery, no acute infarction noted -Will continue with the current management as per primary team Continue with the passive range of motion exercises prevent contracture Physical therapy as she tolerates
[2024-06-08] VITALS (28 sets, daily range): BP systolic 74–155; BP diastolic 45–123; PULSE 53–112; RESP 12–20; TEMP 35.8–36.9; O2SAT 94–99; BMI 35.0
[2024-06-08] MEDS: HYDROcodone/APAP 5/325 TABLET 1 TAB PO ×2 (05:32→11:55)
[2024-06-08 06:20] LABS: Basophils # (Auto) 0.1 Thou/mm3 (0.0-0.2); Basophils % (Auto) 1 % (0-2.5); Eosinophils # (Auto) 0.5 Thou/mm3 (0.0-0.5); Eosinophils % (Auto) 5 % (0-10); Hematocrit 26.6 % (36.0-46.0); Immature Granulocytes % (Auto) 4 % (0-0); Immature Granulocytes Auto 0.46 Thou/mm3 (0.00-0.00); Lymphocytes # (Auto) 2.6 Thou/mm3 (1.0-4.8); Lymphocytes % (Auto) 23 % (10-50); Mean Corpuscular HGB Conc 32.7 g/dl (31.0-37.0); Mean Corpuscular Hemoglobin 27.1 pg (25.0-35.0); Mean Corpuscular Volume 83 fL (80-100); Monocytes # (Auto) 0.8 Thou/mm3 (0.0-0.8); Monocytes % (Auto) 8 % (0-12); Neutrophils # (Auto) 6.4 Thou/mm3 (1.8-7.7); Neutrophils % (Auto) 59 % (37-80); Nucleated Red Blood Cell # 0.04 Thou/mm3 (0.00-0.00); Nucleated Red Blood Cell % 0 /100 WBC (0); Platelet Count 253 Thou/mm3 (140-440); RDW Standard Deviation 56.9 fL (36.4-46.3); Red Blood Count 3.21 Miln/mm3 (4.00-5.20); White Blood Count 10.9 Thou/mm3 (3.6-11.0)
[2024-06-08 06:39] LABS: Hemoglobin 8.7 g/dL (12.0-16.0)
[2024-06-08 07:16] LABS: Alanine Aminotransferase < 7 U/L (10-49); Albumin, Serum 3.8 gm/dL (3.4-4.8); Albumin/Globulin Ratio 1.1 (1.2-2.2); Alkaline Phosphatase 126 U/L (46-116); Anion Gap 10 (7-16); Aspartate Amino Transferase 11 U/L (0-34); BUN/Creatinine Ratio 9 Ratio (12-20); Bilirubin,Total 0.6 mg/dL (0.3-1.2); Blood Urea Nitrogen 46 mg/dL (9-23); Calcium 10.3 mg/dL (8.3-10.6); Calcium (Corrected) 10.5 mg/dL (8.5-10.1); Carbon Dioxide 24.9 mMol/L (20.0-31.0); Chloride 96 mMol/L (98-107); Creatinine (Component) 5.4 mg/dL (0.6-1.3); Estimated Creatinine Clearance 8.4 mL/min (>60); Globulin 3.5 gm/dL (2.3-3.5); Glucose 91 mg/dL (74-106); Osmolality,Calculated 274 (275-295); Potassium 4.6 mMol/L (3.4-5.1); Sodium 131 mMol/L (136-145); Total Protein 7.3 gm/dL (5.7-8.2); eGFR 8 See Note
--- NOTE | 2024-06-08 08:02 | ESPR_ITS ---
<Statement entered by Jalen Davis MD - 06/08/24 20:59> I have personally seen and examined the patient separately on the above date of service and discussed the plan of care with the resident. I reviewed the resident Dr. Hernandes consultation progress note and agree with the resident findings and plan in the note above and have also edited the documentation to reflect my findings and plan. Patient appears to be in pain and heart rate around 100 220 bpm but otherwise until this morning patient's heart rate was between 80-100 bpm. Continue amiodarone 200 twice daily. Recommend adequate pain control. Patient blood pressure appears to be low on during the dialysis and patient did not receive her midodrine this morning. Recommend to mandate really give midodrine 10 mg at least 30 minutes before the dialysis session. Agree with decreasing the midodrine to 10 mg twice daily. If the blood pressure is high then patient can be only on midodrine prior to the dialysis and rest of the time it can be discontinued. Jalen Davis M.D. Interventional Cardiology Documentation for date of: 06/08/24 Subjective Subjective Interval history: Patient examined at bedside today. Events on telemetry include patient going up and heart rate to be in the 100s and 110s, peaking at 120. When examined at bedside, patient does not report any chest pain but she expresses some pain in her abdomen. She is not having any shortness of breath that time but says that her pain is not controlled this time. She has not noticed any palpitations at this time. She has no other complaints at this time. Exam Vital Signs Temp Pulse Resp BP Pulse Ox O2 Del Method O2 Flow Rate 96.5 F L 96 20 127/63 99 Nasal Cannula 2 06/08/24 04:00 06/08/24 07:43 06/08/24 07:43 06/08/24 04:00 06/08/24 07:43 06/08/24 04:00 06/08/24 07:43 FiO2 4 06/07/24 00:00 Narrative Exam General: AAOx3, obese female, no active distress at this time, appears to be more awake today HEENT: Moist mucous membranes, conjunctiva clear, EOMI, PERRLA, Cardiovascular: S1, S2, radial pulses +2 bilat, irregularly irregular rhythm Pulmonary: CTAB bilat no cough, no wheezing GI: Accordion and percutaneous drains present no output at this time, bandages present, no ascites, mildly distended Extremities: No presence of trace or pitting edema in lower extremities bilaterally, dorsalis pedis pulses +2 bilaterally Neuro: AAOx3, no focal motor or sensory deficits in the UE or LE bilat Psych: Cooperative. Objective Labs 06/08/24 06:00 06/08/24 06:00 Labs: Laboratory Results - last 24 hr 06/07/24 06/07/24 06/08/24 05:20 08:25 06:00 WBC 10.9 RBC 3.21 L Hgb 8.7 L Hct 26.6 L MCV 83 MCH 27.1 MCHC 32.7 RDW Std Deviation 56.9 H Plt Count 253 Neut % (Auto) 59 Lymph % (Auto) 23 [place] % (Auto) 8 Eos % (Auto) 5 Baso % (Auto) 1 Neut # (Auto) 6.4 Lymph # (Auto) 2.6 [place] # (Auto) 0.8 Eos # (Auto) 0.5 Baso # (Auto) 0.1 Immature Gran # (Auto) 0.46 H Absolute Nucleated RBC 0.04 H Immature Gran % 4 H Nucleated RBC % 0 APTT 31.5 D Sodium 132 L 131 L Potassium 4.1 4.6 D Chloride 97 L 96 L Carbon Dioxide 24.6 24.9 Anion Gap 10 10 BUN 34 H 46 H Creatinine 4.3 H* 5.4 H* D Estim Creat Clear Calc 11.0 L 8.4 L eGFR 11 L* 8 L* BUN/Creatinine Ratio 8 L 9 L Glucose 80 91 Calculated Osmolality 271 L 274 L Calcium 9.6 10.3 Corrected Calcium 10.0 10.5 H Magnesium 2.4 Total Bilirubin 0.6 0.6 AST < 8 11 ALT < 7 L < 7 L Alkaline Phosphatase 130 H 126 H Total Protein 7.0 7.3 Albumin 3.5 3.8 Globulin 3.5 3.5 Albumin/Globulin Ratio 1.0 L 1.1 L ABG Interpretation ABG results: 05/13/24 05/15/24 05/15/24 08:29 15:28 16:03 ABG pH 7.39 7.05 L* D 7.17 L* D ABG pCO2 31 L 63 H D 45 D ABG pO2 78 L 38 L* D 84 D ABG HCO3 19 L 18 L 16 L ABG O2 Saturation 96 59 L 96 ABG Base Excess -5 L -12 L -11 L VBG pH VBG pCO2 VBG pO2 VBG Base Excess 05/16/24 05/17/24 05/18/24 04:38 04:03 04:20 ABG pH 7.28 L D 7.38 D 7.49 H D ABG pCO2 34 D 28 L 30 L ABG pO2 96 85 66 L ABG HCO3 16 L 17 L 23 ABG O2 Saturation 98 97 94 ABG Base Excess -10 L -8 L 0 VBG pH VBG pCO2 VBG pO2 VBG Base Excess 05/19/24 05/20/24 05/21/24 09:05 06:05 22:35 ABG pH 7.30 L D 7.41 D ABG pCO2 49 H D 42 ABG pO2 63 L 63 L ABG HCO3 24 27 H ABG O2 Saturation 91 93 ABG Base Excess -3 2 VBG pH 7.31 L VBG pCO2 50 VBG pO2 39 VBG Base Excess -2 05/26/24 05/29/24 04:17 12:28 ABG pH 7.38 7.42 ABG pCO2 42 35 ABG pO2 81 L 67 L ABG HCO3 25 23 ABG O2 Saturation 97 95 ABG Base Excess 0 -2 VBG pH VBG pCO2 VBG pO2 VBG Base Excess Quality Measures Quality Measures VTE prophylaxis (Heparin) Advance care planning discussed with:: patient Assessment & Plan Assessment Current Active Medications: Generic Name Dose Route Start Last Admin Trade Name Freq PRN Reason Stop Dose Admin Hydrocodone Bitart/Acetaminophen 1 tab 06/03/24 12:00 06/08/24 05:32 Hydrocodone/Apap 5/325 Tablet PO 06/08/24 11:59 1 tab Q6HR ANGELICA Administration Albuterol/Ipratropium 3 ml 05/27/24 18:08 06/05/24 07:27 Albuterol/Ipratropium (Duoneb) Rt Jimena 3 Ml Nebu INH 06/26/24 18:07 3 ml Q2HR PRN Administration SHORTNESS OF BREATH OR WHEEZE Amiodarone HCl 200 mg 05/29/24 15:00 06/07/24 20:45 Amiodarone Hcl 200 Mg Tablet PO 06/28/24 14:59 200 mg BID ANGELICA Administration Apixaban 5 mg 06/07/24 09:00 06/07/24 20:46 Apixaban 2.5 Mg Tablet PO 07/07/24 08:59 5 mg BID ANGELICA Administration Benzocaine 1 lozenge 05/31/24 11:53 05/31/24 12:54 Benzocaine/Menthol 1 Lozenge PO 06/30/24 11:52 1 lozenge Q4HR PRN Administration Sore throat Dextrose 25 ml 05/24/24 15:43 Dextrose 50%-Water Inj 50 Ml Syringe IV 06/23/24 15:42 Q15MIN PRN BG 50-70 responsive npo pt Dextrose 50 ml 05/24/24 15:43 Dextrose 50%-Water Inj 50 Ml Syringe IV 06/23/24 15:42 Q15MIN PRN BG <50 OR BG <70 & pt unresponsive Dronabinol 5 mg 06/07/24 10:40 06/07/24 17:00 Dronabinol 2.5 Mg Capsule PO 07/07/24 10:39 Not Given BIDAC ANGELICA Fluconazole 200 mg 06/08/24 09:00 Fluconazole 100 Mg Tablet PO 06/15/24 08:59 QDAY [facility] Glucagon 1 mg 05/24/24 15:43 Glucagon Inj 1 Mg Vial IM Q15MIN PRN BG <70, and no IV access Heparin Sodium (Porcine) 3,500 unit 06/07/24 18:06 06/07/24 18:15 Heparin Sod Inj 1000 Unit/Ml Vial 10 Ml INDWELLCAT 06/21/24 18:05 3,500 unit PRN PRN Administration DIALYSIS Albumin Human 25 gm in 100 mls @ 100 mls/hr 06/07/24 14:30 06/07/24 15:18 Albuminar-25 Ivpb IV 100 mls/hr PRN PRN Administration DIALYSIS Insulin Glargine 12 unit 05/25/24 09:00 06/07/24 09:36 Insulin Glargine (Lantus) 5 Unit/0.05 Ml (Per 5 Units) SC 06/24/24 08:59 Not Given QDAY [facility] Insulin Human Lispro 0 unit 05/24/24 18:00 06/08/24 05:38 Insulin Lispro (Admelog) 1 Unit/0.01 Ml Unit SC 06/23/24 17:59 Not Given Q6HR [facility] Protocol Lidocaine 1 patch 05/30/24 09:16 06/01/24 19:01 Lidocaine 5% 1 Patch TOP 06/29/24 09:15 1 patch DAILY PRN Administration BACK PAIN Midodrine 10 mg 06/07/24 21:00 06/07/24 20:42 Midodrine 5 Mg Tablet PO 07/07/24 20:59 10 mg BID ANGELICA Administration Ondansetron HCl 4 mg 05/13/24 11:58 05/14/24 12:31 Ondansetron Inj 2 Mg/Ml Inj 2 Ml IV 06/12/24 11:57 4 mg Q6H PRN Administration NAUSEA OR VOMITING Protocol Pantoprazole Sodium 40 mg 05/15/24 21:00 06/07/24 20:46 Pantoprazole Inj 40 Mg Vial IVP 06/14/24 20:59 40 mg BID ANGELICA Administration Pharmacy Consult 1 each 05/16/24 10:27 Pharmacy Renal Dose Adjustment 1 Ea XX 06/15/24 10:26 PRN PRN CONSULT Sodium Chloride 3 ml 05/24/24 19:00 Sodium Chloride Rt Jimena 0.9% 3 Ml Nebu INH 06/23/24 18:59 PRN PRN SOLN Timolol Maleate 1 drop 05/28/24 18:15 06/07/24 09:49 Timolol Op Jimena 0.5% 5 Ml Btl BOTH EYES 06/27/24 18:14 1 drop DAILY ANGELICA Administration Plan Assessment Ms. Castellanos is a 69-year-old female with past medical history significant for hypertension, diabetes and history of gastric ulcers who presented to the ED on 05/13/2024 after she was found unconscious on the floor. Per chart reviewing prior to this unconsciousness patient was having abdominal pain and generalized weakness with diarrhea and shortness of breath for 2 days. Patient was admitted to the hospital for treatment and management of sepsis secondary to pneumonia. Patient was given 1 L normal saline and started on ceftriaxone and azithromycin. patient underwent ex lap surgery for perforated gastric ulcer. Patient remained intubated postop and was upgraded to the ICU. Patient continues to be on dialysis after downgrade, has BALAJI and accordion drain intact, completed bowel rest, was started on dysphagia 1 diet, surgery following case closely, will continue to monitor. #New onset A-fib with RVR, improving New onset of Afib, likely related to septic shock requiring pressor support and increased demand from perforated ulcer complicated by abdominal abscesses Pt appears to still be in A-fib, rate controlled, 90s to mid 100s Previous EKG shows a-fib w/RVR CHADVASC: 5 Pts 7.2 % stroke risk per year HAS-BLED score: 3, high risk of major bleeding Pt's HR elevated in the 110s/120s, might be from not getting adequate pain control Plan: -Continue with Oral Amio 200 mg BID - Will add metoprolol 100 XL x1 tonight, and treat pain with PRN medicines -Eliquis 5 mg twice daily resumed by primary team #Acute exacerbation of HFpEF #HFpEF EF 55 to 60% #History of primary hypertension -Echo 05/16/2024 -estimated EF of 55 to 60%, stage I diastolic dysfunction noted, Moderate to severe posterior MAC Pt has new onset of ESRD requiring HD, requiring midodrine 10 mg QID to tolerate HD Not resuming home amlodipine at this time due to patient being A-fib and blood pressure eventually be controlled with beta-christian At this point, we recommend to down-titrate midodrine to either 5 mg TID or 10 mg BID, as it sounds pt requires the midodrine during dialysis sessions Plan: ?Resume GDMT as able ?Fluid restriction ?Daily weights ?Strict ins and outs ?Keep potassium and magnesium above 4 and 2 respectively #Hx of Diabetes Mellitus type II Most recent A1c 05/21/2024: 6.2 Plan: Management by primary team #Perforated gastric ulcer #Pneumoperitoneum #Peritonitis secondary to perforated gastric ulcer #Abdominal Abscess, s/p percutaneous drainage x2 Patient found to have tender abdomen, rigidity in the epigastrium, chest x-ray showed elevation of hemidiaphragm, CT abdomen showed pneumoperitoneum, concern for perforated viscus, general surgeon Dr. Santana was consulted for emergency laparotomy and possible repair of perforated gastric ulcer. Repeat CT abd/pel on 05/20 revealed Pneumoperitoneum, orogastric tube in the stomach, mild free fluid adjacent to the stomach and anterior to the pancreas. s/p Exploratory laparotomy & repair of perforated gastric ulcer - 05/15. 06/01/24: Overnight there was concern of wound dehiscence. Discussed with general surgeon per surgery superior aspect of the wound was dehiscent after removal of aixa.Surgery removal of BALAJI drain on 06/01. Repeat CT on 06/01- More pronounced fluid collection in the left abdomen below the spleen, 8.9 x 6.4cm, free fluid in the abdomen and pelvis, and Ascites -Abscess culture from 05/25 grew edna albicans ?Repeat CT abdomen pelvis shows abscess collection lower left abdomen has markedly decreased in size and the accordion drains have no output this morning Plan: Management by primary hospitalist team #Acute blood loss anemia, stable Likely related to perforated ulcer Hgb stable ~9.0 Iron studies unremarkable (TIBC, Iron), will hold off on giving iron Given Erythropoeitin by Nephrology Plan: Management by primary hospitalist team #Acute tubular necrosis, requiring hemodialysis #Acute Hypoxic Respiratory failure #Acute Upper GI bleed - stable #Hyperlipidemia #Acute blood loss anemia, stable #Acute encephalopathy-resolved #Septic Shock - resolved #Hypoosmolar Hyponatremia, resolved Above managed by primary hospitalist team Patient seen and care discussed with my attending physician, Dr. Susan Mathews, PGY-1
--- NOTE | 2024-06-08 08:54 | PC.NURSE ---
High arterial pressure. Lines reversed.
[2024-06-08] MEDS: ALBUMIN HUMAN 25% IVPB 25 GM/100 ML BTL IV (09:04)
--- NOTE | 2024-06-08 09:29 | PD.RESPRO ---
Documentation for date of: 06/08/24 Subjective Subjective Interval history: 06/07/2024 Patient was seen and examined at bedside, seems to be sleepy however she was arousable. Seems to be mildly lethargic Today vitals showed blood pressure of 166/80, pulse rate of 1 , She is on 1 L of oxygen saturating 97% does not seems to be overloaded. Her labs show hemoglobin level of 8.1, sodium 132, potassium 4.1, chloride 97, creatinine 4.3, BUN of 34 calcium is 10. 06/08/2024, patient was seen and examined at bedside. Patient is alert with his daughter at bedside. Vitally patient stable saturating 98% on 2 L of oxygen. Patient denied any new symptoms at this time except her generalized fatigability. Yesterday primary team was concerned that the patient might have fluid overload for that reason patient underwent another session of dialysis. Today we will continue her dialysis again her serum creatinine is 5.4, BUN of 46, potassium of 4.6, sodium of 131. On auscultation we noticed that the patient has some wheezing and coarse crepitation for that reason we will order for the patient chest physical therapy and also discussed with the primary team the need of mucolytic's at this time. If the patient started to make urine we will start her on Lasix to decrease the need of dialysis sessions as we cannot discharge the patient on 4 sessions of dialysis. Exam Vital Signs Temp Pulse Resp BP Pulse Ox O2 Del Method O2 Flow Rate 97.5 F 69 18 82/58 L 94 L Nasal Cannula 4 06/08/24 08:32 06/08/24 09:15 06/08/24 08:32 06/08/24 09:15 06/08/24 08:32 06/08/24 08:00 06/08/24 08:32 FiO2 4 06/07/24 00:00 Narrative Exam PatientGEN: AOx3, more awake and alert than yesterday HEENT: NC/AC, oral mucosa moist, neck supple CVS: RRR, S1-S2 present, no murmurs appreciated RESP: Mild wheezing bilaterally, coarse crepitations GI: soft,non distended, non tender, NBS MSK: able to move all 4 limbs, +1 lower extremity edema SKIN: warm and dry [employer]ING [employer]ATE CLERK: CN II-XII and Sensation grossly intact. Objective Labs 06/10/24 05:28 06/10/24 05:28 Labs: Laboratory Results - last 24 hr 06/07/24 06/07/24 06/08/24 05:20 08:25 06:00 WBC 10.9 RBC 3.21 L Hgb 8.7 L Hct 26.6 L MCV 83 MCH 27.1 MCHC 32.7 RDW Std Deviation 56.9 H Plt Count 253 Neut % (Auto) 59 Lymph % (Auto) 23 [place] % (Auto) 8 Eos % (Auto) 5 Baso % (Auto) 1 Neut # (Auto) 6.4 Lymph # (Auto) 2.6 [place] # (Auto) 0.8 Eos # (Auto) 0.5 Baso # (Auto) 0.1 Immature Gran # (Auto) 0.46 H Absolute Nucleated RBC 0.04 H Immature Gran % 4 H Nucleated RBC % 0 APTT 31.5 D Sodium 132 L 131 L Potassium 4.1 4.6 D Chloride 97 L 96 L Carbon Dioxide 24.6 24.9 Anion Gap 10 10 BUN 34 H 46 H Creatinine 4.3 H* 5.4 H* D Estim Creat Clear Calc 11.0 L 8.4 L eGFR 11 L* 8 L* BUN/Creatinine Ratio 8 L 9 L Glucose 80 91 Calculated Osmolality 271 L 274 L Calcium 9.6 10.3 Corrected Calcium 10.0 10.5 H Magnesium 2.4 Total Bilirubin 0.6 0.6 AST < 8 11 ALT < 7 L < 7 L Alkaline Phosphatase 130 H 126 H Total Protein 7.0 7.3 Albumin 3.5 3.8 Globulin 3.5 3.5 Albumin/Globulin Ratio 1.0 L 1.1 L ABG Interpretation ABG results: 05/13/24 05/15/24 05/15/24 08:29 15:28 16:03 ABG pH 7.39 7.05 L* D 7.17 L* D ABG pCO2 31 L 63 H D 45 D ABG pO2 78 L 38 L* D 84 D ABG HCO3 19 L 18 L 16 L ABG O2 Saturation 96 59 L 96 ABG Base Excess -5 L -12 L -11 L VBG pH VBG pCO2 VBG pO2 VBG Base Excess 05/16/24 05/17/24 05/18/24 04:38 04:03 04:20 ABG pH 7.28 L D 7.38 D 7.49 H D ABG pCO2 34 D 28 L 30 L ABG pO2 96 85 66 L ABG HCO3 16 L 17 L 23 ABG O2 Saturation 98 97 94 ABG Base Excess -10 L -8 L 0 VBG pH VBG pCO2 VBG pO2 VBG Base Excess 05/19/24 05/20/24 05/21/24 09:05 06:05 22:35 ABG pH 7.30 L D 7.41 D ABG pCO2 49 H D 42 ABG pO2 63 L 63 L ABG HCO3 24 27 H ABG O2 Saturation 91 93 ABG Base Excess -3 2 VBG pH 7.31 L VBG pCO2 50 VBG pO2 39 VBG Base Excess -2 05/26/24 05/29/24 04:17 12:28 ABG pH 7.38 7.42 ABG pCO2 42 35 ABG pO2 81 L 67 L ABG HCO3 25 23 ABG O2 Saturation 97 95 ABG Base Excess 0 -2 VBG pH VBG pCO2 VBG pO2 VBG Base Excess Quality Measures Quality Measures VTE prophylaxis (Heparin) Advance care planning discussed with:: patient and child Assessment & Plan Assessment Current Active Medications: Generic Name Dose Route Start Last Admin Trade Name Freq PRN Reason Stop Dose Admin Hydrocodone Bitart/Acetaminophen 1 tab 06/03/24 12:00 06/08/24 05:32 Hydrocodone/Apap 5/325 Tablet PO 06/08/24 11:59 1 tab Q6HR ANGELICA Administration Albuterol/Ipratropium 3 ml 05/27/24 18:08 06/05/24 07:27 Albuterol/Ipratropium (Duoneb) Rt Jimena 3 Ml Nebu INH 06/26/24 18:07 3 ml Q2HR PRN Administration SHORTNESS OF BREATH OR WHEEZE Amiodarone HCl 200 mg 05/29/24 15:00 06/07/24 20:45 Amiodarone Hcl 200 Mg Tablet PO 06/28/24 14:59 200 mg BID ANGELICA Administration Apixaban 5 mg 06/07/24 09:00 06/07/24 20:46 Apixaban 2.5 Mg Tablet PO 07/07/24 08:59 5 mg BID ANGELICA Administration Benzocaine 1 lozenge 05/31/24 11:53 05/31/24 12:54 Benzocaine/Menthol 1 Lozenge PO 06/30/24 11:52 1 lozenge Q4HR PRN Administration Sore throat Dextrose 25 ml 05/24/24 15:43 Dextrose 50%-Water Inj 50 Ml Syringe IV 06/23/24 15:42 Q15MIN PRN BG 50-70 responsive npo pt Dextrose 50 ml 05/24/24 15:43 Dextrose 50%-Water Inj 50 Ml Syringe IV 06/23/24 15:42 Q15MIN PRN BG <50 OR BG <70 & pt unresponsive Dronabinol 5 mg 06/07/24 10:40 06/07/24 17:00 Dronabinol 2.5 Mg Capsule PO 07/07/24 10:39 Not Given BIDAC [facility] Fluconazole 200 mg 06/08/24 09:00 Fluconazole 100 Mg Tablet PO 06/15/24 08:59 QDAY [facility] Glucagon 1 mg 05/24/24 15:43 Glucagon Inj 1 Mg Vial IM Q15MIN PRN BG <70, and no IV access Heparin Sodium (Porcine) 3,500 unit 06/07/24 18:06 06/07/24 18:15 Heparin Sod Inj 1000 Unit/Ml Vial 10 Ml INDWELLCAT 06/21/24 18:05 3,500 unit PRN PRN Administration DIALYSIS Albumin Human 25 gm in 100 mls @ 100 mls/hr 06/07/24 14:30 06/08/24 09:04 Albuminar-25 Ivpb IV 100 mls/hr PRN PRN Administration DIALYSIS Insulin Glargine 12 unit 05/25/24 09:00 06/07/24 09:36 Insulin Glargine (Lantus) 5 Unit/0.05 Ml (Per 5 Units) SC 06/24/24 08:59 Not Given QDAY [facility] Insulin Human Lispro 0 unit 05/24/24 18:00 06/08/24 05:38 Insulin Lispro (Admelog) 1 Unit/0.01 Ml Unit SC 06/23/24 17:59 Not Given Q6HR [facility] Protocol Lidocaine 1 patch 05/30/24 09:16 06/01/24 19:01 Lidocaine 5% 1 Patch TOP 06/29/24 09:15 1 patch DAILY PRN Administration BACK PAIN Midodrine 10 mg 06/07/24 21:00 06/07/24 20:42 Midodrine 5 Mg Tablet PO 07/07/24 20:59 10 mg BID ANGELICA Administration Ondansetron HCl 4 mg 05/13/24 11:58 05/14/24 12:31 Ondansetron Inj 2 Mg/Ml Inj 2 Ml IV 06/12/24 11:57 4 mg Q6H PRN Administration NAUSEA OR VOMITING Protocol Pantoprazole Sodium 40 mg 05/15/24 21:00 06/07/24 20:46 Pantoprazole Inj 40 Mg Vial IVP 06/14/24 20:59 40 mg BID ANGELICA Administration Pharmacy Consult 1 each 05/16/24 10:27 Pharmacy Renal Dose Adjustment 1 Ea XX 06/15/24 10:26 PRN PRN CONSULT Sodium Chloride 3 ml 05/24/24 19:00 Sodium Chloride Rt Jimena 0.9% 3 Ml Nebu INH 06/23/24 18:59 PRN PRN SOLN Timolol Maleate 1 drop 05/28/24 18:15 06/07/24 09:49 Timolol Op Jimena 0.5% 5 Ml Btl BOTH EYES 06/27/24 18:14 1 drop DAILY ANGELICA Administration Plan Summary: A 69-year-old female patient with past medical history of CKD, hypertension, prediabetes, was admitted to the hospital due to sepsis secondary to pneumonia, found to have perforated peptic ulcer. Developed septic shock and was admitted to the ICU. Patient was downgraded to telemetry however patient still has ADILSON secondary to acute tubular necrosis and shock. Assessment and plan #Acute kidney injury on dialysis T/TH/S #Acute tubular necrosis secondary to septic shock #Anasarca Patient developed septic shock which may resulted in acute tubular necrosis. At this time patient is getting dialysis through [facility]. Patient getting TPN as the patient developed abdominal abscess secondary to GI leak most likely. At this time patient still produces 0 urine output., However were not sure if this is accurate measurement at the patient mentions that she had urinated twice today. Because the patient had an extra session of dialysis yesterday it will be hard to discharge the patient on 4 sessions of dialysis outpatient. For that reason if the patient is making urine we will consider adding Lasix to her regimen to help decrease the risk of fluid overload. Plan ? Dialysis today ? Sodium level was corrected yesterday and today is 131 ? Renally dose medications including fluconazole ? Strict in and out ? Daily renal panel #Peritonitis secondary to perforated gastric ulcer #Acute Upper GI bleed #Intra-abdominal abscess #Candidal abscess. #Metabolic acidosis, resolved #Lactic Acidosis #Acute Encephalopathy #Acute ischemic stroke #Distributive shock #Acute decompensated HF #Elevated Troponin #Hyperlipidemia #Primary Hypertension #Acute Hypoxic Respiratory failure #Pneumoperitoneum #Diabetes Mellitus type II #Acute anemia Plan ? Follow primary team recommendations Thank you for consultation please not hesitate to call will reach out if you have any question or concerns - Patient's plan and care discussed with my attending, Dr. Mata Sifuentes MD Internal Medicine PGY-2 Attending Provider Attestation/Addendum Patient seen and examined with resident physician Dr. Barton. Note reviewed, agree with findings and recommendations. Catheter did not work yesterday. Requested for a change in the catheter. Patient currently seen on dialysis. Tolerating dialysis without any problems. Hemodialysis for 3 hours, 2K, ultrafiltration 2-3 L, Epogen 6000, no heparin ordered. Plan of care discussed with the dialysis nurse. Please see dialysis flowsheet for further details.
--- NOTE | 2024-06-08 11:01 | PC.NURSE ---
Addendum entered by Anne Wray RN 06/08/24 11:03: Decreased UF time to match with HD time. Goal 1.0 L. Original Note: Increased goal to 1.5 L.
--- NOTE | 2024-06-08 11:15 | PD.RESPRO ---
Documentation for date of: 06/08/24 Subjective Subjective Interval history: 06/08: no acute over night events. Pt is in dialysis, yesterday session was prematurely stop due to hypotension. Pt is saturating well on 2L of O2 via nasal cannula. Pt denies shortness of breath, abdominal pain, incision site looks clean. Pt last bowel movement was on 06/03 therefore will order mineral oil enema. Patient CBC is stable. Patient continues to eat less than 25% of some meals therefore called her son this morning to encouraged to bring home-cooked meals that patient can eat. Patient is encouraged to increase oral diet. Exam Vital Signs Temp Pulse Resp BP Pulse Ox O2 Del Method O2 Flow Rate 97.5 F 93 18 145/95 H 94 L Nasal Cannula 4 06/08/24 08:32 06/08/24 11:00 06/08/24 08:32 06/08/24 11:00 06/08/24 08:32 06/08/24 08:00 06/08/24 08:32 FiO2 4 06/07/24 00:00 Narrative Exam GENERAL: A&Ox3 . Awake and alert NEURO: no focal neurological deficits HEENT: Atraumatic, Normocephalic. mucous membranes moist. Eyes open, symmetrical, & clear HEART: Normal Heart Sounds LUNGS: faint wheezing bilaterally ABDOMEN: soft, non-distended, non-tender, bowel sounds heard, no guarding or rebound tenderness, incision site is clean. SKIN: No Rash or ecchymoses EXTREMITIES: trace edema bilaterally on LE, tenderness, able to move all 4 extremities, pedal pulses palpated Objective Labs 06/08/24 06:00 06/08/24 06:00 Labs: Laboratory Results - last 24 hr 06/08/24 06:00 WBC 10.9 RBC 3.21 L Hgb 8.7 L Hct 26.6 L MCV 83 MCH 27.1 MCHC 32.7 RDW Std Deviation 56.9 H Plt Count 253 Neut % (Auto) 59 Lymph % (Auto) 23 [place] % (Auto) 8 Eos % (Auto) 5 Baso % (Auto) 1 Neut # (Auto) 6.4 Lymph # (Auto) 2.6 [place] # (Auto) 0.8 Eos # (Auto) 0.5 Baso # (Auto) 0.1 Immature Gran # (Auto) 0.46 H Absolute Nucleated RBC 0.04 H Immature Gran % 4 H Nucleated RBC % 0 Sodium 131 L Potassium 4.6 D Chloride 96 L Carbon Dioxide 24.9 Anion Gap 10 BUN 46 H Creatinine 5.4 H* D Estim Creat Clear Calc 8.4 L eGFR 8 L* BUN/Creatinine Ratio 9 L Glucose 91 Calculated Osmolality 274 L Calcium 10.3 Corrected Calcium 10.5 H Total Bilirubin 0.6 AST 11 ALT < 7 L Alkaline Phosphatase 126 H Total Protein 7.3 Albumin 3.8 Globulin 3.5 Albumin/Globulin Ratio 1.1 L ABG Interpretation ABG results: 05/13/24 05/15/24 05/15/24 08:29 15:28 16:03 ABG pH 7.39 7.05 L* D 7.17 L* D ABG pCO2 31 L 63 H D 45 D ABG pO2 78 L 38 L* D 84 D ABG HCO3 19 L 18 L 16 L ABG O2 Saturation 96 59 L 96 ABG Base Excess -5 L -12 L -11 L VBG pH VBG pCO2 VBG pO2 VBG Base Excess 05/16/24 05/17/24 05/18/24 04:38 04:03 04:20 ABG pH 7.28 L D 7.38 D 7.49 H D ABG pCO2 34 D 28 L 30 L ABG pO2 96 85 66 L ABG HCO3 16 L 17 L 23 ABG O2 Saturation 98 97 94 ABG Base Excess -10 L -8 L 0 VBG pH VBG pCO2 VBG pO2 VBG Base Excess 05/19/24 05/20/24 05/21/24 09:05 06:05 22:35 ABG pH 7.30 L D 7.41 D ABG pCO2 49 H D 42 ABG pO2 63 L 63 L ABG HCO3 24 27 H ABG O2 Saturation 91 93 ABG Base Excess -3 2 VBG pH 7.31 L VBG pCO2 50 VBG pO2 39 VBG Base Excess -2 05/26/24 05/29/24 04:17 12:28 ABG pH 7.38 7.42 ABG pCO2 42 35 ABG pO2 81 L 67 L ABG HCO3 25 23 ABG O2 Saturation 97 95 ABG Base Excess 0 -2 VBG pH VBG pCO2 VBG pO2 VBG Base Excess Quality Measures Quality Measures VTE prophylaxis (Heparin) Advance care planning discussed with:: patient and child Assessment & Plan Assessment Current Active Medications: Generic Name Dose Route Start Last Admin Trade Name Freq PRN Reason Stop Dose Admin Hydrocodone Bitart/Acetaminophen 1 tab 06/03/24 12:00 06/08/24 05:32 Hydrocodone/Apap 5/325 Tablet PO 06/08/24 11:59 1 tab Q6HR ANGELICA Administration Albuterol/Ipratropium 3 ml 05/27/24 18:08 06/05/24 07:27 Albuterol/Ipratropium (Duoneb) Rt Jimena 3 Ml Nebu INH 06/26/24 18:07 3 ml Q2HR PRN Administration SHORTNESS OF BREATH OR WHEEZE Amiodarone HCl 200 mg 05/29/24 15:00 06/07/24 20:45 Amiodarone Hcl 200 Mg Tablet PO 06/28/24 14:59 200 mg BID ANGELICA Administration Apixaban 5 mg 06/07/24 09:00 06/07/24 20:46 Apixaban 2.5 Mg Tablet PO 07/07/24 08:59 5 mg BID ANGELICA Administration Benzocaine 1 lozenge 05/31/24 11:53 05/31/24 12:54 Benzocaine/Menthol 1 Lozenge PO 06/30/24 11:52 1 lozenge Q4HR PRN Administration Sore throat Dextrose 25 ml 05/24/24 15:43 Dextrose 50%-Water Inj 50 Ml Syringe IV 06/23/24 15:42 Q15MIN PRN BG 50-70 responsive npo pt Dextrose 50 ml 05/24/24 15:43 Dextrose 50%-Water Inj 50 Ml Syringe IV 06/23/24 15:42 Q15MIN PRN BG <50 OR BG <70 & pt unresponsive Dronabinol 5 mg 06/07/24 10:40 06/07/24 17:00 Dronabinol 2.5 Mg Capsule PO 07/07/24 10:39 Not Given BIDAC ANGELICA Fluconazole 200 mg 06/08/24 09:00 Fluconazole 100 Mg Tablet PO 06/15/24 08:59 QDAY ANGELICA Glucagon 1 mg 05/24/24 15:43 Glucagon Inj 1 Mg Vial IM Q15MIN PRN BG <70, and no IV access Heparin Sodium (Porcine) 3,500 unit 06/07/24 18:06 06/07/24 18:15 Heparin Sod Inj 1000 Unit/Ml Vial 10 Ml INDWELLCAT 06/21/24 18:05 3,500 unit PRN PRN Administration DIALYSIS Albumin Human 25 gm in 100 mls @ 100 mls/hr 06/07/24 14:30 06/08/24 09:04 Albuminar-25 Ivpb IV 100 mls/hr PRN PRN Administration DIALYSIS Insulin Glargine 12 unit 05/25/24 09:00 06/07/24 09:36 Insulin Glargine (Lantus) 5 Unit/0.05 Ml (Per 5 Units) SC 06/24/24 08:59 Not Given QDAY ANGELICA Insulin Human Lispro 0 unit 05/24/24 18:00 06/08/24 05:38 Insulin Lispro (Admelog) 1 Unit/0.01 Ml Unit SC 06/23/24 17:59 Not Given Q6HR ANGELICA Protocol Lidocaine 1 patch 05/30/24 09:16 06/01/24 19:01 Lidocaine 5% 1 Patch TOP 06/29/24 09:15 1 patch DAILY PRN Administration BACK PAIN Midodrine 10 mg 06/07/24 21:00 06/07/24 20:42 Midodrine 5 Mg Tablet PO 07/07/24 20:59 10 mg BID ANGELICA Administration Ondansetron HCl 4 mg 05/13/24 11:58 05/14/24 12:31 Ondansetron Inj 2 Mg/Ml Inj 2 Ml IV 06/12/24 11:57 4 mg Q6H PRN Administration NAUSEA OR VOMITING Protocol Pantoprazole Sodium 40 mg 05/15/24 21:00 06/07/24 20:46 Pantoprazole Inj 40 Mg Vial IVP 06/14/24 20:59 40 mg BID ANGELICA Administration Pharmacy Consult 1 each 05/16/24 10:27 Pharmacy Renal Dose Adjustment 1 Ea XX 06/15/24 10:26 PRN PRN CONSULT Sodium Chloride 3 ml 05/24/24 19:00 Sodium Chloride Rt Jimena 0.9% 3 Ml Nebu INH 06/23/24 18:59 PRN PRN SOLN Timolol Maleate 1 drop 05/28/24 18:15 06/07/24 09:49 Timolol Op Jimena 0.5% 5 Ml Btl BOTH EYES 06/27/24 18:14 1 drop DAILY ANGELICA Administration Plan Ms. Castellanos is a 69-year-old female with past medical history significant for hypertension, diabetes and history of gastric ulcers who presented to the ED on 05/13/2024 after she was found unconscious on the floor. Per chart reviewing prior to this unconsciousness patient was having abdominal pain and generalized weakness with diarrhea and shortness of breath for 2 days. Patient was admitted to the hospital for treatment and management of sepsis secondary to pneumonia. Patient was given 1 L normal saline and started on ceftriaxone and azithromycin. patient underwent ex lap surgery for perforated gastric ulcer. Patient remained intubated postop and was upgraded to the ICU. Patient continues to be on dialysis after downgrade, has BALAJI and accordion drain intact, completed bowel rest, was started on dysphagia 1 diet, surgery following case closely, will continue to monitor. #Perforated gastric ulcer #Hx of gastric ulcers #Pneumoperitoneum #Peritonitis secondary to perforated gastric ulcer - s/p ex lap #Abdominal Abscess, s/p percutaneous drainage x2- removed #Leukocytosis- resolved Patient found to have tender abdomen, rigidity in the epigastrium, chest x-ray showed elevation of hemidiaphragm, CT abdomen showed pneumoperitoneum, concern for perforated viscus, general surgeon Dr. Santana was consulted for emergency laparotomy and possible repair of perforated gastric ulcer. Repeat CT abd/pel on 05/20 revealed Pneumoperitoneum, orogastric tube in the stomach, mild free fluid adjacent to the stomach and anterior to the pancreas. s/p Exploratory laparotomy & repair of perforated gastric ulcer - 05/15. 06/01/24: Overnight there was concern of wound dehiscence. Discussed with general surgeon per surgery superior aspect of the wound was dehiscent after removal of aixa.Surgery removal of BALAJI drain on 06/01. Repeat CT on 06/01- More pronounced fluid collection in the left abdomen below the spleen, 8.9 x 6.4cm, free fluid in the abdomen and pelvis, and Ascites -Abscess culture from 05/25 grew edna albicans -Repeat CT A/P 06/05: abscess collection in the left lower abdomen has markedly decreased in size. the accordions drains have no output this morning. Plan: ?Patient completed antibiotic therapy, Meropenem, discontinued per ID Recommendations -repeat culture sensitivity grew yeast, patient is currently on antifungal will be continued -percutaneous abscess drain catheter placed 06/02 -Pending Abscess Culture from drain 06/02 ?Pain control Fentanyl 25 mcg every 6 hours as needed. And scheduled Edwards 5 mg every 6 hours ?disontinue with TPN 06/05 . Patient's diet is advanced to dysphagia 1 and have encouraged family members to bring home-cooked meals that patient would eat ?Continue dronabinol as appetite stimulator ?June 03, 2024: Patient was made n.p.o. by overnight team due to abdominal distention but we resumed her diet and p.o. medications. -accordian drains removed on 06/05 #New onset A-fib with RVR #NSTEMI type 2 -Likely secondary to shock in the setting of abdominal surgery -EKG findings consistent with A-fib -Was on Amiodarone 200 twice daily for new onset Afib, but as she was in AFib with RVR. Plan: ?Cardiology consulted, appreciate recs -Currently on oral amiodarone 200mg ?started eliquis 5mg BID for anticoagulation #Nutrition ?Patient noted to have poor appetite, is finishing less than 50% of her meals, was initially on TPN which is discontinued. -Added dronabinol as appetite stimulator #Acute tubular necrosis likely progressed to ESRD #Anuria -2/2 septic shock -Patient has 0 urine production -Baseline Cr appears to be 0.7 Plan: ?Patient underwent HD fluid removal and removed 2.1 L on 05/18 and 1.5 L on 05/19, 2L fluid removed 05/21, 2.5 L fluid removed on 05/22 , 3L fluid removed on 05/23, 3L fluid removed 05/25, 2L removed 05/26, 1 L removed 05/29, 1.5 L removed 05/30, 06/01 2L fluid removed. -permanent hemodialysis cath placed on 06/02/24 -Patient will require outpatient hemodialysis, dialysis chair secured by case management - Hemodialysis as per schedule. -Started on midodrine 10 mg 4 times daily as patient has difficulty tolerating dialysis, blood pressure drops. -Renally dose medications and avoid nephrotoxic agents -repeat labs in am -Nephrology following #Acute exacerbation of HFpEF # HFpEF EF 55 to 60% -echo 05/16 -estimated EF of 55 to 60%, stage I diastolic dysfunction noted, Moderate to severe posterior MAC -Pt presented with SOB and 2+ edema in LE -elevated BNP from 304 --> 1110 -HD in the setting of anuria -holding guideline directed medical therapy due to shock, will resume when able -Continue dialysis, as per nephrology recommendations #Acute Hypoxic Respiratory failure likely multifactorial -2/2 to pulmonary edema in the setting of volume overload 2/2 ATN due to shock leading to oligoanuria versus bibasilar pneumonia -Further complicated by bilateral lung atelectasis in the setting of recent abdominal surgery and sedatives use -Patient was intubated and on mechanical ventilation (05/15) and extubated 05/18/2024, currently saturating 95-97 % on 5 L NC -Duonebs prn #Acute Upper GI bleed - stable -Most likely secondary to perforated gastric ulcer -Patient had a single episode of black tarry stool today-likely setting of recent abdominal surgery -Continue iv Protonix. -Will monitor for alarm signs of active bleeding with melena or hematochezia #Hx of Diabetes Mellitus type II - A1C 6.3 % 05/21/2024 - Hold home glipizide and januvia - Plan: Continue to monitor blood sugars - Insulin sliding scale ordered with lantus 12 units #Hyperlipidemia -Unclear if patient takes any medications as a statin is not on list of home meds #Primary Hypertension Holding on resuming home blood pressure medicines at this time #Acute blood loss anemia, stable 2/2 perforated ulcer- S/P surgical repair Hgb stable 9.6 Hct 28.3 patient received 2 units of pRBC 05/18 due to acutely drop in Hgb below 7. No signs of active bleeding. Plan: -Continue to monitor daily CBC. transfuse for hemoglobin less than 7. # Acute encephalopathy-resolved -Likely multifactorial secondary to sepsis versus metabolic versus neurologic versus medication -Patient is awake and alert and follows commands. Patient is able to respond to yes or no questions verbally #Shock - resolved #Hypoosmolar Hyponatremia, resolved Disposition: Telemetry DVT prophylaxis: Eliquis 5 mg twice daily anticoagulation for A-fib GI prophylaxis:Protonix 40 BID Diet: Dysphagia 1 diet CODE STATUS: Full Assessment and plan discussed with my senior resident physician Dr. Quiñonez and my attending physician Dr. Luis Enrique Rivera ([id number])- Internal medicine resident Attending Provider Attestation/Addendum I reviewed labs, imaging, EKG, home medications and prior available records. Face to face evaluation was performed by me. I have personally examined the patient and discussed assessment and plan with the IM team. I reviewed the resident note and agree with the plan with exceptions as below. Perforated gastric ulcer Intra-abdominal abscess status post drain X2 ADILSON reaching hemodialysis point, dialysis dependent Atrial fibrillation with controlled ventricular rhythm Continue p.o. fluconazole given the yeast growth in the abscess fluid Drains were removed by surgery. Okay to discharge from surgery standpoint. Follow-up with surgery as outpatient Continue PPI. Not a candidate for PEG tube placement given her recent surgery Continue hemodialysis per nephrology schedule Continue amiodarone and Eliquis Encourage oral intake as TPN is weaned off. Ordered Marinol for appetite stimulation Discussed with social services designee for SNF placement: Since her first outpatient dialysis will be on Wednesday, that cannot happen as outpatient and she needs to do her first session inside the hospital prior to discharge
[2024-06-08] MEDS: EPOETIN ALFA-EPBX INJ 10,000 UNIT/ML VIAL (ESRD) 10000 UNIT SC (11:19)
--- NOTE | 2024-06-08 11:32 | PC.SS ---
ADELITA followed up with Monie at [facility] who explained she is unsure if they can start a new patients on dialysis Saturdays. ADELITA will follow up tomorrow with PABLO. ADELITA has informed Ebony at [facility] pt is still not ready for d/c due to not being able to eat. Ebony states they can accept pt on weekend.
--- NOTE | 2024-06-08 11:35 | PC.NURSE ---
Hydrocodone 5mg/325 given PO for pain.
[2024-06-08] MEDS: HEPARIN SOD INJ 1000 UNIT/ML VIAL 10 ML 3500 UNIT INDWELLCAT (12:07)
[2024-06-08] MEDS: FLUCONAZOLE 100 MG TABLET 200 MG PO (12:35)
[2024-06-08] MEDS: TIMOLOL OP SOL 0.5% 5 ML BTL 1 DROP BOTH EYES (12:36)
--- NOTE | 2024-06-08 14:35 | PC.NURSE ---
picc line removed at 1420. no resistance, or complications. gauze and tegaderm applied. dressing is clean dry and intact. Susi nova made aware.
--- NOTE | 2024-06-08 15:17 | PC.CC ---
Faxed CGM order form, demographics and clinical notes to [facility].
[2024-06-08] MEDS: guaiFENesin SYRUP 200 MG/10 ML UDC PO (16:10)
[2024-06-08] MEDS: droNABinol 2.5 MG CAPSULE 5 MG PO (17:06)
--- NOTE | 2024-06-08 19:15 | PD.IMPROG ---
Documentation for date of: 06/08/24 Subjective Subjective Interval history: Hemoglobin hematocrit 8.7 and 26.6 Poor p.o. intake only eating about 25% of her diet No signs of any bleeding Exam Vital Signs Temp Pulse Resp BP Pulse Ox O2 Del Method O2 Flow Rate 98.5 F 107 H 20 102/58 L 96 Nasal Cannula 2 06/08/24 16:00 06/08/24 16:00 06/08/24 16:00 06/08/24 16:00 06/08/24 16:00 06/08/24 16:00 06/08/24 16:00 FiO2 4 06/07/24 00:00 Routine Respiratory Exam Comments: Normal to auscultation Routine Abdominal Exam Comments: Positive bowel sounds Objective Labs 06/08/24 06:00 06/08/24 06:00 Labs: Laboratory Results - last 24 hr 06/08/24 06:00 WBC 10.9 RBC 3.21 L Hgb 8.7 L Hct 26.6 L MCV 83 MCH 27.1 MCHC 32.7 RDW Std Deviation 56.9 H Plt Count 253 Neut % (Auto) 59 Lymph % (Auto) 23 [place] % (Auto) 8 Eos % (Auto) 5 Baso % (Auto) 1 Neut # (Auto) 6.4 Lymph # (Auto) 2.6 [place] # (Auto) 0.8 Eos # (Auto) 0.5 Baso # (Auto) 0.1 Immature Gran # (Auto) 0.46 H Absolute Nucleated RBC 0.04 H Immature Gran % 4 H Nucleated RBC % 0 Sodium 131 L Potassium 4.6 D Chloride 96 L Carbon Dioxide 24.9 Anion Gap 10 BUN 46 H Creatinine 5.4 H* D Estim Creat Clear Calc 8.4 L eGFR 8 L* BUN/Creatinine Ratio 9 L Glucose 91 Calculated Osmolality 274 L Calcium 10.3 Corrected Calcium 10.5 H Total Bilirubin 0.6 AST 11 ALT < 7 L Alkaline Phosphatase 126 H Total Protein 7.3 Albumin 3.8 Globulin 3.5 Albumin/Globulin Ratio 1.1 L Impressions Impression: # Anemia blood loss stable # Status post surgery for perforated gastric ulcer # Renal failure on hemodialysis # poor p.o. intake Continue current management ABG Interpretation ABG results: 05/13/24 05/15/24 05/15/24 08:29 15:28 16:03 ABG pH 7.39 7.05 L* D 7.17 L* D ABG pCO2 31 L 63 H D 45 D ABG pO2 78 L 38 L* D 84 D ABG HCO3 19 L 18 L 16 L ABG O2 Saturation 96 59 L 96 ABG Base Excess -5 L -12 L -11 L VBG pH VBG pCO2 VBG pO2 VBG Base Excess 05/16/24 05/17/24 05/18/24 04:38 04:03 04:20 ABG pH 7.28 L D 7.38 D 7.49 H D ABG pCO2 34 D 28 L 30 L ABG pO2 96 85 66 L ABG HCO3 16 L 17 L 23 ABG O2 Saturation 98 97 94 ABG Base Excess -10 L -8 L 0 VBG pH VBG pCO2 VBG pO2 VBG Base Excess 05/19/24 05/20/24 05/21/24 09:05 06:05 22:35 ABG pH 7.30 L D 7.41 D ABG pCO2 49 H D 42 ABG pO2 63 L 63 L ABG HCO3 24 27 H ABG O2 Saturation 91 93 ABG Base Excess -3 2 VBG pH 7.31 L VBG pCO2 50 VBG pO2 39 VBG Base Excess -2 05/26/24 05/29/24 04:17 12:28 ABG pH 7.38 7.42 ABG pCO2 42 35 ABG pO2 81 L 67 L ABG HCO3 25 23 ABG O2 Saturation 97 95 ABG Base Excess 0 -2 VBG pH VBG pCO2 VBG pO2 VBG Base Excess Assessment & Plan A&P Narrative abd abscess, stain neg. later grew c albicans so on flucon now here since 05/13.usual rx for most things is 7d. left on merrem thru weekend but collection in abd eventually grew a yeast, so ok for another 7d rx will see again if requested Time Spent With Patient Time: Total time spent is greater than 50% in coordination of care (as documented) at patient's floor/unit and/or counseling patient:
[2024-06-08] MEDS: MIDODRINE 5 MG TABLET 10 MG PO (20:48)
[2024-06-08] MEDS: APIXABAN 2.5 MG TABLET 5 MG PO (20:48)
[2024-06-08] MEDS: PANTOPRAZOLE INJ 40 MG VIAL IVP (20:48)
[2024-06-08] MEDS: AMIODARONE HCL 200 MG TABLET PO (20:48)
[2024-06-08] MEDS: METOPROLOL SUCCINATE XL 25 MG TABCR 100 MG PO (20:51)
--- NOTE | 2024-06-08 23:53 | PD.NEUROPROG ---
Documentation for date of: 06/08/24 Subjective Subjective Interval history: Patient was seen in telemetry today at the bedside with his son, significant respiratory distress noted likely from fluid overload. Exam - Neurology Vital Signs Temp Pulse Resp BP Pulse Ox O2 Del Method O2 Flow Rate 98.3 F 90 17 104/86 H 99 Nasal Cannula 2 06/08/24 20:00 06/08/24 20:51 06/08/24 20:00 06/08/24 20:51 06/08/24 20:00 06/08/24 20:00 06/08/24 20:00 FiO2 4 06/07/24 00:00 Narrative Exam GENERAL APPEARANCE: Well-developed, obese built female in mild distress HEENT: Normocephalic, atraumatic, extraocular movements intact. Pupils: Equal reacting to light NECK: Supple, no JVD or bruits. CARDIOVASULAR: Heart: S1, S2 heard, irregular without S3-S4 or murmur no rubs or gallops. LUNGS/CHEST: Bilateral Rales and rhonchi heard. ABDOMEN: Soft, nontender, with normal bowel sounds. No pulsatile masses. No rebound, rigidity, or guarding. Normal inspection and palpation. EXTREMITIES: Significant edema in both upper and lower extremities. SKIN: Warm and dry without rashes. Normal inspection. MUSCULOSKELETAL: No cervical, thoracic, lumbar or midline bony tenderness. Normal inspection. NEURO: Alert, awake, follows commands consistently. Brainstem function: Intact. Moves all 4 extremities but significantly weak all over, no signs of meningeal irritation noted. PSYCHIATRIC: Mood and affect: Normal Objective Labs 06/09/24 04:37 06/09/24 04:37 Labs: Laboratory Results - last 24 hr 06/08/24 06:00 WBC 10.9 RBC 3.21 L Hgb 8.7 L Hct 26.6 L MCV 83 MCH 27.1 MCHC 32.7 RDW Std Deviation 56.9 H Plt Count 253 Neut % (Auto) 59 Lymph % (Auto) 23 [place] % (Auto) 8 Eos % (Auto) 5 Baso % (Auto) 1 Neut # (Auto) 6.4 Lymph # (Auto) 2.6 [place] # (Auto) 0.8 Eos # (Auto) 0.5 Baso # (Auto) 0.1 Immature Gran # (Auto) 0.46 H Absolute Nucleated RBC 0.04 H Immature Gran % 4 H Nucleated RBC % 0 Sodium 131 L Potassium 4.6 D Chloride 96 L Carbon Dioxide 24.9 Anion Gap 10 BUN 46 H Creatinine 5.4 H* D Estim Creat Clear Calc 8.4 L eGFR 8 L* BUN/Creatinine Ratio 9 L Glucose 91 Calculated Osmolality 274 L Calcium 10.3 Corrected Calcium 10.5 H Total Bilirubin 0.6 AST 11 ALT < 7 L Alkaline Phosphatase 126 H Total Protein 7.3 Albumin 3.8 Globulin 3.5 Albumin/Globulin Ratio 1.1 L ABG Interpretation ABG results: 05/13/24 05/15/24 05/15/24 08:29 15:28 16:03 ABG pH 7.39 7.05 L* D 7.17 L* D ABG pCO2 31 L 63 H D 45 D ABG pO2 78 L 38 L* D 84 D ABG HCO3 19 L 18 L 16 L ABG O2 Saturation 96 59 L 96 ABG Base Excess -5 L -12 L -11 L VBG pH VBG pCO2 VBG pO2 VBG Base Excess 05/16/24 05/17/24 05/18/24 04:38 04:03 04:20 ABG pH 7.28 L D 7.38 D 7.49 H D ABG pCO2 34 D 28 L 30 L ABG pO2 96 85 66 L ABG HCO3 16 L 17 L 23 ABG O2 Saturation 98 97 94 ABG Base Excess -10 L -8 L 0 VBG pH VBG pCO2 VBG pO2 VBG Base Excess 05/19/24 05/20/24 05/21/24 09:05 06:05 22:35 ABG pH 7.30 L D 7.41 D ABG pCO2 49 H D 42 ABG pO2 63 L 63 L ABG HCO3 24 27 H ABG O2 Saturation 91 93 ABG Base Excess -3 2 VBG pH 7.31 L VBG pCO2 50 VBG pO2 39 VBG Base Excess -2 05/26/24 05/29/24 04:17 12:28 ABG pH 7.38 7.42 ABG pCO2 42 35 ABG pO2 81 L 67 L ABG HCO3 25 23 ABG O2 Saturation 97 95 ABG Base Excess 0 -2 VBG pH VBG pCO2 VBG pO2 VBG Base Excess Assessment & Plan Additional Assessment & Plan Additional Plan: 69-year-old female with past medical history of CKD stage III, prediabetes, hypertension who was found unconscious in her room. As well as diarrhea and shortness of breath. Admitted for sepsis secondary to pneumonia and acute metabolic encephalopathy #Acute metabolic encephalopathy- currently in telemetry, significant improvement noted, close to baseline #Generalized weakness --Brain MRI with MRA shows significant stenoses in posterior cerebral artery, no acute infarction noted -Will continue with the current management as per primary team Continue with the passive range of motion exercises prevent contracture Physical therapy as she tolerates.
[2024-06-09] VITALS (17 sets, daily range): BP systolic 100–133; BP diastolic 55–97; PULSE 60–128; RESP 16–32; TEMP 36.2–37.3; O2SAT 98–100; BMI 35.0; BMI 12.0
--- NOTE | 2024-06-09 | XR_ITS ---
Venous access removal nonfunctioning permanent left internal jugular dialysis catheter Insertion new permanent tunneled dialysis catheter percutaneous Fluoroscopy AP chest, portable, single view. Date and time of procedure: June 09, 2024 1323 hours INDICATIONS: Nonfunctioning current permanent tunneled dialysis catheter Informed consent provided Technique: A timeout was completed verifying correct patient, procedure, site, positioning, and special equipment if applicable. The patient was placed in a dependent position appropriate for dialysis catheter placement based on the vein to be cannulated. The patient'sleft neck was prepped and draped in sterile fashion. Careful dissection around the patient's existing permanent tunneled dialysis catheter Catheter removed after placing 0.35 wire guide into the inferior vena cava 14 [place] 24 cm new split lumen dialysis catheter is introduced over the wire guide into the SVC in satisfactory position The catheter is sutured in place to the skin and a sterile dressing applied. Perfusion to the extremity distal to the point of catheter insertion is checked and found to be adequate Attending radiologist was present for the entire procedure Estimated blood loss2 cc. The patient tolerated the procedure well and there were no complications Impression: Successful venous assess removal permanent tunneled left internal jugular dialysis catheter Successful permanent tunneled dialysis catheter insertion, percutaneous, new Fluoroscopy 0.3 minute radiation dose 3.55 milligray 1 spot fluoroscopic chest film AP chest performed at completion procedure demonstrates satisfactory position dialysis catheter. May use dialysis catheter.
[2024-06-09 05:34] LABS: Basophils # (Auto) 0.2 Thou/mm3 (0.0-0.2); Basophils % (Auto) 1 % (0-2.5); Eosinophils # (Auto) 0.5 Thou/mm3 (0.0-0.5); Eosinophils % (Auto) 4 % (0-10); Hematocrit 26.7 % (36.0-46.0); Immature Granulocytes % (Auto) 3 % (0-0); Immature Granulocytes Auto 0.36 Thou/mm3 (0.00-0.00); Lymphocytes # (Auto) 3.2 Thou/mm3 (1.0-4.8); Lymphocytes % (Auto) 25 % (10-50); Mean Corpuscular HGB Conc 31.1 g/dl (31.0-37.0); Mean Corpuscular Hemoglobin 26.3 pg (25.0-35.0); Mean Corpuscular Volume 85 fL (80-100); Monocytes % (Auto) 8 % (0-12); Neutrophils # (Auto) 7.7 Thou/mm3 (1.8-7.7); Neutrophils % (Auto) 60 % (37-80); Nucleated Red Blood Cell % 1 /100 WBC (0); Platelet Count 223 Thou/mm3 (140-440); RDW Standard Deviation 58.1 fL (36.4-46.3); Red Blood Count 3.16 Miln/mm3 (4.00-5.20)
[2024-06-09] MEDS: guaiFENesin SYRUP 200 MG/10 ML UDC PO (05:36)
[2024-06-09 05:39] LABS: Hemoglobin 8.3 g/dL (12.0-16.0)
[2024-06-09] MEDS: HYDROcodone/APAP 5/325 TABLET 1 TAB PO (06:07)
[2024-06-09 06:24] LABS: Alanine Aminotransferase < 7 U/L (10-49); Albumin, Serum 3.8 gm/dL (3.4-4.8); Alkaline Phosphatase 122 U/L (46-116); Anion Gap 11 (7-16); BUN/Creatinine Ratio 8 Ratio (12-20); Bilirubin,Total 0.7 mg/dL (0.3-1.2); Blood Urea Nitrogen 33 mg/dL (9-23); Calcium 9.9 mg/dL (8.3-10.6); Calcium (Corrected) 10.1 mg/dL (8.5-10.1); Carbon Dioxide 26.2 mMol/L (20.0-31.0); Chloride 96 mMol/L (98-107); Creatinine (Component) 4.1 mg/dL (0.6-1.3); Estimated Creatinine Clearance 11.1 mL/min (>60); Globulin 3.7 gm/dL (2.3-3.5); Glucose 105 mg/dL (74-106); Osmolality,Calculated 273 (275-295); Potassium 4.1 mMol/L (3.4-5.1); Sodium 133 mMol/L (136-145); Total Protein 7.5 gm/dL (5.7-8.2); eGFR 11 See Note
[2024-06-09 06:26] LABS: Aspartate Amino Transferase 19 U/L (0-34)
[2024-06-09] MEDS: droNABinol 2.5 MG CAPSULE 5 MG PO (07:54)
--- NOTE | 2024-06-09 08:15 | ESPR_ITS ---
Documentation for date of: 06/09/24 Subjective Subjective Interval history: Patient examined at bedside today. Overnight events until include patient's heart rate has been in the 110s 120s overnight. Patient reports she is doing well, her pain has been under control. She is not experiencing any shortness of breath or additional chest pain at this time. She has not noticed additional swelling in her legs. She has no other complaints at this time Exam Vital Signs Temp Pulse Resp BP Pulse Ox O2 Del Method O2 Flow Rate 98.4 F 94 32 H 110/64 98 Nasal Cannula 2 06/09/24 04:00 06/09/24 04:00 06/09/24 04:00 06/09/24 04:00 06/09/24 04:00 06/09/24 04:00 06/09/24 04:00 FiO2 4 06/07/24 00:00 Narrative Exam General: AAOx3, obese female, no active distress at this time, sitting up in bed appears to be awake HEENT: Moist mucous membranes, conjunctiva clear, EOMI, PERRLA, Cardiovascular: S1, S2, radial pulses +2 bilat, irregularly irregular rhythm Pulmonary: CTAB bilat no cough, no wheezing GI: Bandages present, no ascites, mildly distended Extremities: No presence of trace or pitting edema in lower extremities bilaterally, dorsalis pedis pulses +2 bilaterally Neuro: AAOx3, no focal motor or sensory deficits in the UE or LE bilat Psych: Cooperative. Objective Labs 06/10/24 05:28 06/10/24 05:28 Labs: Laboratory Results - last 24 hr 06/09/24 04:37 WBC 13.0 H RBC 3.16 L Hgb 8.3 L Hct 26.7 L MCV 85 MCH 26.3 MCHC 31.1 RDW Std Deviation 58.1 H Plt Count 223 D Neut % (Auto) 60 Lymph % (Auto) 25 [place] % (Auto) 8 Eos % (Auto) 4 Baso % (Auto) 1 Neut # (Auto) 7.7 Lymph # (Auto) 3.2 [place] # (Auto) 1.0 H Eos # (Auto) 0.5 Baso # (Auto) 0.2 Immature Gran # (Auto) 0.36 H Absolute Nucleated RBC 0.10 H Immature Gran % 3 H Nucleated RBC % 1 H Sodium 133 L Potassium 4.1 D Chloride 96 L Carbon Dioxide 26.2 Anion Gap 11 BUN 33 H Creatinine 4.1 H* D Estim Creat Clear Calc 11.1 L eGFR 11 L* BUN/Creatinine Ratio 8 L Glucose 105 Calculated Osmolality 273 L Calcium 9.9 Corrected Calcium 10.1 Total Bilirubin 0.7 AST 19 ALT < 7 L Alkaline Phosphatase 122 H Total Protein 7.5 Albumin 3.8 Globulin 3.7 H Albumin/Globulin Ratio 1.0 L ABG Interpretation ABG results: 05/13/24 05/15/24 05/15/24 08:29 15:28 16:03 ABG pH 7.39 7.05 L* D 7.17 L* D ABG pCO2 31 L 63 H D 45 D ABG pO2 78 L 38 L* D 84 D ABG HCO3 19 L 18 L 16 L ABG O2 Saturation 96 59 L 96 ABG Base Excess -5 L -12 L -11 L VBG pH VBG pCO2 VBG pO2 VBG Base Excess 05/16/24 05/17/24 05/18/24 04:38 04:03 04:20 ABG pH 7.28 L D 7.38 D 7.49 H D ABG pCO2 34 D 28 L 30 L ABG pO2 96 85 66 L ABG HCO3 16 L 17 L 23 ABG O2 Saturation 98 97 94 ABG Base Excess -10 L -8 L 0 VBG pH VBG pCO2 VBG pO2 VBG Base Excess 05/19/24 05/20/24 05/21/24 09:05 06:05 22:35 ABG pH 7.30 L D 7.41 D ABG pCO2 49 H D 42 ABG pO2 63 L 63 L ABG HCO3 24 27 H ABG O2 Saturation 91 93 ABG Base Excess -3 2 VBG pH 7.31 L VBG pCO2 50 VBG pO2 39 VBG Base Excess -2 05/26/24 05/29/24 04:17 12:28 ABG pH 7.38 7.42 ABG pCO2 42 35 ABG pO2 81 L 67 L ABG HCO3 25 23 ABG O2 Saturation 97 95 ABG Base Excess 0 -2 VBG pH VBG pCO2 VBG pO2 VBG Base Excess Quality Measures Quality Measures VTE prophylaxis (Heparin) Advance care planning discussed with:: patient Assessment & Plan Assessment Current Active Medications: Generic Name Dose Route Start Last Admin Trade Name Freq PRN Reason Stop Dose Admin Albuterol/Ipratropium 3 ml 05/27/24 18:08 06/05/24 07:27 Albuterol/Ipratropium (Duoneb) Rt Jimena 3 Ml Nebu INH 06/26/24 18:07 3 ml Q2HR PRN Administration SHORTNESS OF BREATH OR WHEEZE Amiodarone HCl 200 mg 05/29/24 15:00 06/08/24 20:48 Amiodarone Hcl 200 Mg Tablet PO 06/28/24 14:59 200 mg BID ANGELICA Administration Apixaban 5 mg 06/07/24 09:00 06/08/24 20:48 Apixaban 2.5 Mg Tablet PO 07/07/24 08:59 5 mg BID ANGELICA Administration Benzocaine 1 lozenge 05/31/24 11:53 05/31/24 12:54 Benzocaine/Menthol 1 Lozenge PO 06/30/24 11:52 1 lozenge Q4HR PRN Administration Sore throat Dextrose 25 ml 05/24/24 15:43 Dextrose 50%-Water Inj 50 Ml Syringe IV 06/23/24 15:42 Q15MIN PRN BG 50-70 responsive npo pt Dextrose 50 ml 05/24/24 15:43 Dextrose 50%-Water Inj 50 Ml Syringe IV 06/23/24 15:42 Q15MIN PRN BG <50 OR BG <70 & pt unresponsive Dronabinol 5 mg 06/07/24 10:40 06/09/24 07:54 Dronabinol 2.5 Mg Capsule PO 07/07/24 10:39 5 mg BIDAC ANGELICA Administration Fluconazole 200 mg 06/08/24 09:00 06/08/24 12:35 Fluconazole 100 Mg Tablet PO 06/15/24 08:59 200 mg QDAY ANGELICA Administration Glucagon 1 mg 05/24/24 15:43 Glucagon Inj 1 Mg Vial IM Q15MIN PRN BG <70, and no IV access Guaifenesin 200 mg 06/08/24 13:51 06/09/24 05:36 Guaifenesin Syrup 200 Mg/10 Ml Udc PO 07/08/24 13:50 200 mg QID PRN Administration COUGH OR CONGESTION Protocol Heparin Sodium (Porcine) 3,500 unit 06/07/24 18:06 06/08/24 12:07 Heparin Sod Inj 1000 Unit/Ml Vial 10 Ml INDWELLCAT 06/21/24 18:05 3,500 unit PRN PRN Administration DIALYSIS Albumin Human 25 gm in 100 mls @ 100 mls/hr 06/07/24 14:30 06/08/24 09:04 Albuminar-25 Ivpb IV 100 mls/hr PRN PRN Administration DIALYSIS Insulin Glargine 12 unit 05/25/24 09:00 06/08/24 11:48 Insulin Glargine (Lantus) 5 Unit/0.05 Ml (Per 5 Units) SC 06/24/24 08:59 Not Given QDAY [facility] Insulin Human Lispro 0 unit 05/24/24 18:00 06/09/24 05:30 Insulin Lispro (Admelog) 1 Unit/0.01 Ml Unit SC 06/23/24 17:59 Not Given Q6HR [facility] Protocol Lidocaine 1 patch 05/30/24 09:16 06/01/24 19:01 Lidocaine 5% 1 Patch TOP 06/29/24 09:15 1 patch DAILY PRN Administration BACK PAIN Midodrine 10 mg 06/07/24 21:00 06/08/24 20:48 Midodrine 5 Mg Tablet PO 07/07/24 20:59 10 mg BID ANGELICA Administration Mirtazapine 15 mg 06/09/24 09:00 Mirtazapine 15 Mg Tablet PO 07/09/24 08:59 QDAY [facility] Ondansetron HCl 4 mg 05/13/24 11:58 05/14/24 12:31 Ondansetron Inj 2 Mg/Ml Inj 2 Ml IV 06/12/24 11:57 4 mg Q6H PRN Administration NAUSEA OR VOMITING Protocol Pantoprazole Sodium 40 mg 05/15/24 21:00 06/08/24 20:48 Pantoprazole Inj 40 Mg Vial IVP 06/14/24 20:59 40 mg BID ANGELICA Administration Pharmacy Consult 1 each 05/16/24 10:27 Pharmacy Renal Dose Adjustment 1 Ea XX 06/15/24 10:26 PRN PRN CONSULT Sodium Chloride 3 ml 05/24/24 19:00 Sodium Chloride Rt Jimena 0.9% 3 Ml Nebu INH 06/23/24 18:59 PRN PRN SOLN Timolol Maleate 1 drop 05/28/24 18:15 06/08/24 12:36 Timolol Op Jimena 0.5% 5 Ml Btl BOTH EYES 06/27/24 18:14 1 drop DAILY ANGELICA Administration Plan Assessment Ms. Castellanos is a 69-year-old female with past medical history significant for hypertension, diabetes and history of gastric ulcers who presented to the ED on 05/13/2024 after she was found unconscious on the floor. Per chart reviewing prior to this unconsciousness patient was having abdominal pain and generalized weakness with diarrhea and shortness of breath for 2 days. Patient was admitted to the hospital for treatment and management of sepsis secondary to pneumonia. Patient was given 1 L normal saline and started on ceftriaxone and azithromycin. patient underwent ex lap surgery for perforated gastric ulcer. Patient remained intubated postop and was upgraded to the ICU. Patient continues to be on dialysis after downgrade, has BALAJI and accordion drain intact, completed bowel rest, was started on dysphagia 1 diet, surgery following case closely, will continue to monitor. #New onset A-fib with RVR, improving New onset of Afib, likely related to septic shock requiring pressor support and increased demand from perforated ulcer complicated by abdominal abscesses Pt appears to still be in A-fib, rate controlled, 90s to mid 100s Previous EKG shows a-fib w/RVR CHADVASC: 5 Pts 7.2 % stroke risk per year HAS-BLED score: 3, high risk of major bleeding Pt's HR elevated in the 110s/120s overnight PE want to continue with metoprolol, however we do not know if patient will tolerate in addition to dialysis We may need to give metoprolol on days without dialysis or later in the day after dialysis, will let primary team decide Will continue with pain management as well as this may be getting her tachycardic Plan: -Continue with Oral Amio 200 mg BID -Eliquis held at this time for procedure with dialysis catheter exchange #Acute exacerbation of HFpEF #HFpEF EF 55 to 60% #History of primary hypertension -Echo 05/16/2024 -estimated EF of 55 to 60%, stage I diastolic dysfunction noted, Moderate to severe posterior MAC Pt has new onset of ESRD requiring HD, requiring midodrine 10 mg QID to tolerate HD Not resuming home amlodipine at this time due to patient being A-fib and blood pressure eventually be controlled with beta-christian We recommend to give midodrine 5 to 10 mg 15 to 30 minutes before dialysis, can give additional 2.5 to 5 mg after dialysis as long as 3 hours after predialysis dose Half-life of midodrine is 9 to 10 hours and patient with CKD something to keep in mind Plan: ?Resume GDMT as able, however concern with hypotension ?Fluid restriction ?Daily weights ?Strict ins and outs ?Keep potassium and magnesium above 4 and 2 respectively #Hx of Diabetes Mellitus type II Most recent A1c 05/21/2024: 6.2 Plan: Management by primary team #Perforated gastric ulcer #Pneumoperitoneum #Peritonitis secondary to perforated gastric ulcer #Abdominal Abscess, s/p percutaneous drainage x2 Patient found to have tender abdomen, rigidity in the epigastrium, chest x-ray showed elevation of hemidiaphragm, CT abdomen showed pneumoperitoneum, concern for perforated viscus, general surgeon Dr. Santana was consulted for emergency laparotomy and possible repair of perforated gastric ulcer. Repeat CT abd/pel on 05/20 revealed Pneumoperitoneum, orogastric tube in the stomach, mild free fluid adjacent to the stomach and anterior to the pancreas. s/p Exploratory laparotomy & repair of perforated gastric ulcer - 05/15. 06/01/24: Overnight there was concern of wound dehiscence. Discussed with general surgeon per surgery superior aspect of the wound was dehiscent after removal of aixa.Surgery removal of BALAJI drain on 06/01. Repeat CT on 06/01- More pronounced fluid collection in the left abdomen below the spleen, 8.9 x 6.4cm, free fluid in the abdomen and pelvis, and Ascites -Abscess culture from 05/25 grew edna albicans ?Repeat CT abdomen pelvis shows abscess collection lower left abdomen has markedly decreased in size and the accordion drains have no output this morning Plan: Management by primary hospitalist team #Acute blood loss anemia, stable Likely related to perforated ulcer Hgb stable ~8.3 Plan: Management by primary hospitalist team #Acute tubular necrosis, requiring hemodialysis #Acute Hypoxic Respiratory failure #Acute Upper GI bleed - stable #Hyperlipidemia #Acute blood loss anemia, stable #Acute encephalopathy-resolved #Septic Shock - resolved #Hypoosmolar Hyponatremia, resolved Above managed by primary hospitalist team Patient seen and care discussed with my attending physician, Dr. Susan Mathews, PGY-1 Attending Provider Attestation/Addendum I have personally seen and examined the patient separately on the above date of service and discussed the plan of care with the resident. I reviewed the resident Dr. Hernandes consultation progress note and agree with the resident findings and plan in the note above and have also edited the documentation to reflect my findings and plan. Jalen Davis M.D. Interventional Cardiology
[2024-06-09] MEDS: FLUCONAZOLE 100 MG TABLET 200 MG PO (08:47)
[2024-06-09] MEDS: PANTOPRAZOLE INJ 40 MG VIAL IVP ×2 (08:47→22:00)
[2024-06-09] MEDS: AMIODARONE HCL 200 MG TABLET PO ×2 (08:47→22:00)
[2024-06-09] MEDS: TIMOLOL OP SOL 0.5% 5 ML BTL 1 DROP BOTH EYES (08:48)
[2024-06-09] MEDS: MIDODRINE 5 MG TABLET 10 MG PO ×2 (08:48→21:59)
[2024-06-09] MEDS: MIRTAZAPINE 15 MG TABLET PO (08:48)
[2024-06-09 08:52] LABS: Magnesium 2.3 mg/dL (1.6-2.6)
--- NOTE | 2024-06-09 10:22 | PC.NURSE ---
came in and changed dressing to abdomen.
--- NOTE | 2024-06-09 10:36 | ESPR_ITS ---
Documentation for date of: 06/09/24 Subjective Subjective Brief History: 69F with HTN, CKDIII, pre DM and known gastric ulcers who was admitted 05/13 after being found down at home. Pt was admitted for encephalopathy and pneumonia, developed anemia for which EGD was planned today however this am had an [employer] for tachycardia, hypotension and acute pain; she underwent CT AP showing pneumoperitoneum with air droplets adjacent to the stomach PMH: HTN, CKDIII, preDM, known gastric ulcers on EGD 10/2023 PSHx: None Meds: No antiplt or anticoagulation Allergies: NKDA Narrative: Minimal appetite, no acute changes Exam Vital Signs Temp Pulse Resp BP Pulse Ox O2 Del Method O2 Flow Rate 97.1 F 101 H 25 H 111/55 L 99 Room Air 2 06/09/24 08:00 06/09/24 08:48 06/09/24 08:00 06/09/24 08:48 06/09/24 08:00 06/09/24 08:00 06/09/24 04:00 FiO2 4 06/07/24 00:00 Constitutional Constitutional: no acute distress Routine Respiratory Exam Respiratory: Present no resp distress Routine Abdominal Exam Abdominal: Present soft and wound (midline wound with superficial dehiscence at superior and inferior aspects, no bleeding, no erythema, no fluctuance or tenderness); Absent tenderness or distended Results Results: Laboratory Laboratory results: results reviewed Assessment & Plan Plan 69F with HTN, CKDIII, pre DM and known gastric ulcers who was admitted 05/13 after being found down at home, who developed pneumoperitoneum 05/15 s/p emergent ex lap, repair of gastric perforation, with postop abscess requiring percutaneous drain placement x2, both removed OK for dc from my standpoint Will follow up as outpt Procedures Procedures Exploratory laparotomy, repair of perforated gastric ulcer
--- NOTE | 2024-06-09 10:40 | PC.SS ---
SS followed up with [facility] who states they are unable to accept new patient's for dialysis on weekend. Pt will start 1st dialysis session on Wednesday06-13-24.
--- NOTE | 2024-06-09 11:00 | CHAP ---
Patient was visited by the Spiritual Care Volunteer who prayed for them. (Volunteer was in the hospital from 09:30-11:00)
[2024-06-09] MEDS: FUROSEMIDE INJ 10 MG/ML 4ML VIAL 40 MG IVP (11:33)
[2024-06-09 12:55] LABS: INR 1.3 (0.9-1.3)
--- NOTE | 2024-06-09 12:55 | PD.RESPRO ---
Documentation for date of: 06/09/24 Subjective Subjective Interval history: 06/07/2024 Patient was seen and examined at bedside, seems to be sleepy however she was arousable. Seems to be mildly lethargic Today vitals showed blood pressure of 166/80, pulse rate of 1 , She is on 1 L of oxygen saturating 97% does not seems to be overloaded. Her labs show hemoglobin level of 8.1, sodium 132, potassium 4.1, chloride 97, creatinine 4.3, BUN of 34 calcium is 10. 06/08/2024, patient was seen and examined at bedside. Patient is alert with his daughter at bedside. Vitally patient stable saturating 98% on 2 L of oxygen. Patient denied any new symptoms at this time except her generalized fatigability. Yesterday primary team was concerned that the patient might have fluid overload for that reason patient underwent another session of dialysis. Today we will continue her dialysis again her serum creatinine is 5.4, BUN of 46, potassium of 4.6, sodium of 131. On auscultation we noticed that the patient has some wheezing and coarse crepitation for that reason we will order for the patient chest physical therapy and also discussed with the primary team the need of mucolytic's at this time. If the patient started to make urine we will start her on Lasix to decrease the need of dialysis sessions as we cannot discharge the patient on 4 sessions of dialysis. 06/09/2024, patient was seen and examined at bedside. Yesterday patient dialysis was discontinued due to catheter malfunction for that reason we replaced the catheter for the patient today and will resume dialysis from tomorrow. We noticed that the patient was incontinent for urine for that reason we ordered for the patient PureWick with continuation of strict in and out monitoring. Because the patient is making urine we will start the patient on Lasix 40 mg daily to decrease the risk of fluid overload. Today her vitals are stable she is saturating well on 2 L of oxygen. Today her potassium is 4.1, calcium is 10.5 most likely secondary to immobilization, her creatinine is 4.1 and her serum BUN is 33. Exam Vital Signs Temp Pulse Resp BP Pulse Ox O2 Del Method O2 Flow Rate 97.1 F 113 H 18 114/63 98 Room Air 1 06/09/24 08:00 06/09/24 12:12 06/09/24 12:12 06/09/24 11:33 06/09/24 12:12 06/09/24 08:00 06/09/24 12:12 FiO2 4 06/07/24 00:00 Narrative Exam PatientGEN: AOx3, flat mood and affect, in semi-sitting position HEENT: NC/AC, oral mucosa moist, neck supple CVS: RRR, S1-S2 present, no murmurs appreciated RESP: Mild wheezing bilaterally, fine ronchi b/l change with coughing GI: soft,non distended, non tender, NBS MSK: able to move all 4 limbs, +1 lower extremity edema SKIN: warm and dry INSECTICIDE MIXER: CN II-XII and Sensation grossly intact. Objective Labs 06/10/24 05:28 06/10/24 05:28 Labs: Laboratory Results - last 24 hr 06/09/24 04:37 WBC 13.0 H RBC 3.16 L Hgb 8.3 L Hct 26.7 L MCV 85 MCH 26.3 MCHC 31.1 RDW Std Deviation 58.1 H Plt Count 223 D Neut % (Auto) 60 Lymph % (Auto) 25 [place] % (Auto) 8 Eos % (Auto) 4 Baso % (Auto) 1 Neut # (Auto) 7.7 Lymph # (Auto) 3.2 [place] # (Auto) 1.0 H Eos # (Auto) 0.5 Baso # (Auto) 0.2 Immature Gran # (Auto) 0.36 H Absolute Nucleated RBC 0.10 H Immature Gran % 3 H Nucleated RBC % 1 H Sodium 133 L Potassium 4.1 D Chloride 96 L Carbon Dioxide 26.2 Anion Gap 11 BUN 33 H Creatinine 4.1 H* D Estim Creat Clear Calc 11.1 L eGFR 11 L* BUN/Creatinine Ratio 8 L Glucose 105 Calculated Osmolality 273 L Calcium 9.9 Corrected Calcium 10.1 Magnesium 2.3 Total Bilirubin 0.7 AST 19 ALT < 7 L Alkaline Phosphatase 122 H Total Protein 7.5 Albumin 3.8 Globulin 3.7 H Albumin/Globulin Ratio 1.0 L ABG Interpretation ABG results: 05/13/24 05/15/24 05/15/24 08:29 15:28 16:03 ABG pH 7.39 7.05 L* D 7.17 L* D ABG pCO2 31 L 63 H D 45 D ABG pO2 78 L 38 L* D 84 D ABG HCO3 19 L 18 L 16 L ABG O2 Saturation 96 59 L 96 ABG Base Excess -5 L -12 L -11 L VBG pH VBG pCO2 VBG pO2 VBG Base Excess 05/16/24 05/17/24 05/18/24 04:38 04:03 04:20 ABG pH 7.28 L D 7.38 D 7.49 H D ABG pCO2 34 D 28 L 30 L ABG pO2 96 85 66 L ABG HCO3 16 L 17 L 23 ABG O2 Saturation 98 97 94 ABG Base Excess -10 L -8 L 0 VBG pH VBG pCO2 VBG pO2 VBG Base Excess 05/19/24 05/20/24 05/21/24 09:05 06:05 22:35 ABG pH 7.30 L D 7.41 D ABG pCO2 49 H D 42 ABG pO2 63 L 63 L ABG HCO3 24 27 H ABG O2 Saturation 91 93 ABG Base Excess -3 2 VBG pH 7.31 L VBG pCO2 50 VBG pO2 39 VBG Base Excess -2 05/26/24 05/29/24 04:17 12:28 ABG pH 7.38 7.42 ABG pCO2 42 35 ABG pO2 81 L 67 L ABG HCO3 25 23 ABG O2 Saturation 97 95 ABG Base Excess 0 -2 VBG pH VBG pCO2 VBG pO2 VBG Base Excess Quality Measures Quality Measures VTE prophylaxis (Heparin) Advance care planning discussed with:: patient and child Assessment & Plan Assessment Current Active Medications: Generic Name Dose Route Start Last Admin Trade Name Freq PRN Reason Stop Dose Admin Albuterol/Ipratropium 3 ml 05/27/24 18:08 06/05/24 07:27 Albuterol/Ipratropium (Duoneb) Rt Jimena 3 Ml Nebu INH 06/26/24 18:07 3 ml Q2HR PRN Administration SHORTNESS OF BREATH OR WHEEZE Amiodarone HCl 200 mg 05/29/24 15:00 06/09/24 08:47 Amiodarone Hcl 200 Mg Tablet PO 06/28/24 14:59 200 mg BID ANGELICA Administration Apixaban 5 mg 06/07/24 09:00 06/09/24 10:31 Apixaban 2.5 Mg Tablet PO 07/07/24 08:59 Not Given BID ANGELICA Benzocaine 1 lozenge 05/31/24 11:53 05/31/24 12:54 Benzocaine/Menthol 1 Lozenge PO 06/30/24 11:52 1 lozenge Q4HR PRN Administration Sore throat Dextrose 25 ml 05/24/24 15:43 Dextrose 50%-Water Inj 50 Ml Syringe IV 06/23/24 15:42 Q15MIN PRN BG 50-70 responsive npo pt Dextrose 50 ml 05/24/24 15:43 Dextrose 50%-Water Inj 50 Ml Syringe IV 06/23/24 15:42 Q15MIN PRN BG <50 OR BG <70 & pt unresponsive Dronabinol 5 mg 06/07/24 10:40 06/09/24 07:54 Dronabinol 2.5 Mg Capsule PO 07/07/24 10:39 5 mg BIDAC ANGELICA Administration Fluconazole 200 mg 06/08/24 09:00 06/09/24 08:47 Fluconazole 100 Mg Tablet PO 06/15/24 08:59 200 mg QDAY ANGELICA Administration Furosemide 40 mg 06/09/24 10:15 06/09/24 11:33 Furosemide Inj 10 Mg/Ml 4ml Vial IVP 07/09/24 10:14 40 mg QDAY ANGELCIA Administration Glucagon 1 mg 05/24/24 15:43 Glucagon Inj 1 Mg Vial IM Q15MIN PRN BG <70, and no IV access Guaifenesin 200 mg 06/08/24 13:51 06/09/24 05:36 Guaifenesin Syrup 200 Mg/10 Ml Udc PO 07/08/24 13:50 200 mg QID PRN Administration COUGH OR CONGESTION Protocol Heparin Sodium (Porcine) 3,500 unit 06/07/24 18:06 06/08/24 12:07 Heparin Sod Inj 1000 Unit/Ml Vial 10 Ml INDWELLCAT 06/21/24 18:05 3,500 unit PRN PRN Administration DIALYSIS Albumin Human 25 gm in 100 mls @ 100 mls/hr 06/07/24 14:30 06/08/24 09:04 Albuminar-25 Ivpb IV 100 mls/hr PRN PRN Administration DIALYSIS Insulin Glargine 12 unit 05/25/24 09:00 06/09/24 09:38 Insulin Glargine (Lantus) 5 Unit/0.05 Ml (Per 5 Units) SC 06/24/24 08:59 Not Given QDAY ANGELICA Insulin Human Lispro 0 unit 05/24/24 18:00 06/09/24 05:30 Insulin Lispro (Admelog) 1 Unit/0.01 Ml Unit SC 06/23/24 17:59 Not Given Q6HR ANGELICA Protocol Lidocaine 1 patch 05/30/24 09:16 06/01/24 19:01 Lidocaine 5% 1 Patch TOP 06/29/24 09:15 1 patch DAILY PRN Administration BACK PAIN Midodrine 10 mg 06/07/24 21:00 06/09/24 08:48 Midodrine 5 Mg Tablet PO 07/07/24 20:59 10 mg BID ANGELICA Administration Mirtazapine 15 mg 06/09/24 09:00 06/09/24 08:48 Mirtazapine 15 Mg Tablet PO 07/09/24 08:59 15 mg QDAY ANGELICA Administration Ondansetron HCl 4 mg 05/13/24 11:58 05/14/24 12:31 Ondansetron Inj 2 Mg/Ml Inj 2 Ml IV 06/12/24 11:57 4 mg Q6H PRN Administration NAUSEA OR VOMITING Protocol Pantoprazole Sodium 40 mg 05/15/24 21:00 06/09/24 08:47 Pantoprazole Inj 40 Mg Vial IVP 06/14/24 20:59 40 mg BID ANGELICA Administration Pharmacy Consult 1 each 05/16/24 10:27 Pharmacy Renal Dose Adjustment 1 Ea XX 06/15/24 10:26 PRN PRN CONSULT Polyethylene Glycol 17 gm 06/09/24 10:45 Polyethylene Glycol 17 Gm Packet PO 07/09/24 10:44 BID ANGELICA Sennosides 1 tab 06/09/24 10:45 Senna Tablet PO 07/09/24 10:44 QDAY ANGELICA Protocol Sodium Chloride 3 ml 05/24/24 19:00 Sodium Chloride Rt Jimena 0.9% 3 Ml Nebu INH 06/23/24 18:59 PRN PRN SOLN Timolol Maleate 1 drop 05/28/24 18:15 06/09/24 08:48 Timolol Op Jimena 0.5% 5 Ml Btl BOTH EYES 06/27/24 18:14 1 drop DAILY ANGELICA Administration Plan Summary: A 69-year-old female patient with past medical history of CKD, hypertension, prediabetes, was admitted to the hospital due to sepsis secondary to pneumonia, found to have perforated peptic ulcer. Developed septic shock and was admitted to the ICU. Patient was downgraded to telemetry however patient still has ADILSON secondary to acute tubular necrosis and shock. Assessment and plan #Acute kidney injury on dialysis T/TH/S #Acute tubular necrosis secondary to septic shock #Anasarca Patient developed septic shock which may resulted in acute tubular necrosis. At this time patient is getting dialysis through [facility]. Patient getting TPN as the patient developed abdominal abscess secondary to GI leak most likely. At this time patient still produces 0 urine output., However were not sure if this is accurate measurement at the patient mentions that she had urinated twice today. Because the patient had an extra session of dialysis yesterday it will be hard to discharge the patient on 4 sessions of dialysis outpatient. For that reason if the patient is making urine we will consider adding Lasix to her regimen to help decrease the risk of fluid overload. 06/08 dialysis catheter malfunction Plan ? Replacement of dialysis catheter today ? Will resume hemodialysis from tomorrow ? PureWick to measure urine output ? Urine continence to be investigated by primary team or in an outpatient settings ? Sodium level was corrected yesterday and today is 131 ? Renally dose medications including fluconazole ? Strict in and out ? Daily renal panel #Peritonitis secondary to perforated gastric ulcer #Acute Upper GI bleed #Intra-abdominal abscess #Candidal abscess. #Metabolic acidosis, resolved #Urine incontinence #Lactic Acidosis #Acute Encephalopathy #Acute ischemic stroke #Distributive shock #Acute decompensated HF #Elevated Troponin #Hyperlipidemia #Primary Hypertension #Acute Hypoxic Respiratory failure #Pneumoperitoneum #Diabetes Mellitus type II #Acute anemia Plan ? Follow primary team recommendations Thank you for consultation please not hesitate to call will reach out if you have any question or concerns - Patient's plan and care discussed with my attending, Dr. Mata Sifuentes MD Internal Medicine PGY-2 Attending Provider Attestation/Addendum Patient seen and examined with resident physician Dr. Barton. Note reviewed, agree with findings and recommendations. Patient could not get dialysis yesterday as catheter was not malfunctioning. Requested for exchanging the catheter. Next dialysis scheduled for tomorrow. Plan of care discussed with the daughter.
--- NOTE | 2024-06-09 13:41 | ESPR_ITS ---
Documentation for date of: 06/09/24 Subjective Subjective Interval history: 06/09: overnight team reported pt. complained of abdominal pain therefore norco x1 was give. this morning pt is seen and examined at bedside. Pt complains of abdominal pain, she is saturating at 98%on 1L of oxygen. Pts daughter is at bedside and reports she at all of her breakfast this morning. pt has started to make urine so will add lasix to remove some fluid. Yesterday ultrafiltration was again prematurely stopped because pt became hypotensive. per cardiology recommends adding midodrine during dialysis sessions. nephrology team also reported that her HD catheter stopped working so will order IR to reposition it today. Pt will undergo dialysis tomorrow while inpatient as [facility] doesnt have availability on wednesday then pt will be discharge to facility. Exam Vital Signs Temp Pulse Resp BP Pulse Ox O2 Del Method O2 Flow Rate 99.1 F 98 21 H 122/69 100 Oxy Mask 3 06/09/24 13:06 06/09/24 13:06 06/09/24 13:06 06/09/24 13:06 06/09/24 13:06 06/09/24 13:06 06/09/24 13:06 FiO2 4 06/07/24 00:00 Narrative Exam GENERAL: A&Ox3 . Awake and alert NEURO: no focal neurological deficits HEENT: Atraumatic, Normocephalic. mucous membranes moist. Eyes open, symmetrical, & clear HEART: Normal Heart Sounds LUNGS: faint wheezing bilaterally ABDOMEN: soft, non-distended, non-tender, bowel sounds heard, no guarding or rebound tenderness, incision site is clean. SKIN: No Rash or ecchymoses EXTREMITIES: trace pitting edema bilaterally on LE, tenderness, able to move all 4 extremities, pedal pulses palpated Objective Labs 06/10/24 05:28 06/10/24 05:28 Labs: Laboratory Results - last 24 hr 06/09/24 06/09/24 04:37 11:05 WBC 13.0 H RBC 3.16 L Hgb 8.3 L Hct 26.7 L MCV 85 MCH 26.3 MCHC 31.1 RDW Std Deviation 58.1 H Plt Count 223 D Neut % (Auto) 60 Lymph % (Auto) 25 [place] % (Auto) 8 Eos % (Auto) 4 Baso % (Auto) 1 Neut # (Auto) 7.7 Lymph # (Auto) 3.2 [place] # (Auto) 1.0 H Eos # (Auto) 0.5 Baso # (Auto) 0.2 Immature Gran # (Auto) 0.36 H Absolute Nucleated RBC 0.10 H Immature Gran % 3 H Nucleated RBC % 1 H PT 14.0 H INR 1.3 Sodium 133 L Potassium 4.1 D Chloride 96 L Carbon Dioxide 26.2 Anion Gap 11 BUN 33 H Creatinine 4.1 H* D Estim Creat Clear Calc 11.1 L eGFR 11 L* BUN/Creatinine Ratio 8 L Glucose 105 Calculated Osmolality 273 L Calcium 9.9 Corrected Calcium 10.1 Magnesium 2.3 Total Bilirubin 0.7 AST 19 ALT < 7 L Alkaline Phosphatase 122 H Total Protein 7.5 Albumin 3.8 Globulin 3.7 H Albumin/Globulin Ratio 1.0 L ABG Interpretation ABG results: 05/13/24 05/15/24 05/15/24 08:29 15:28 16:03 ABG pH 7.39 7.05 L* D 7.17 L* D ABG pCO2 31 L 63 H D 45 D ABG pO2 78 L 38 L* D 84 D ABG HCO3 19 L 18 L 16 L ABG O2 Saturation 96 59 L 96 ABG Base Excess -5 L -12 L -11 L VBG pH VBG pCO2 VBG pO2 VBG Base Excess 05/16/24 05/17/24 05/18/24 04:38 04:03 04:20 ABG pH 7.28 L D 7.38 D 7.49 H D ABG pCO2 34 D 28 L 30 L ABG pO2 96 85 66 L ABG HCO3 16 L 17 L 23 ABG O2 Saturation 98 97 94 ABG Base Excess -10 L -8 L 0 VBG pH VBG pCO2 VBG pO2 VBG Base Excess 05/19/24 05/20/24 05/21/24 09:05 06:05 22:35 ABG pH 7.30 L D 7.41 D ABG pCO2 49 H D 42 ABG pO2 63 L 63 L ABG HCO3 24 27 H ABG O2 Saturation 91 93 ABG Base Excess -3 2 VBG pH 7.31 L VBG pCO2 50 VBG pO2 39 VBG Base Excess -2 05/26/24 05/29/24 04:17 12:28 ABG pH 7.38 7.42 ABG pCO2 42 35 ABG pO2 81 L 67 L ABG HCO3 25 23 ABG O2 Saturation 97 95 ABG Base Excess 0 -2 VBG pH VBG pCO2 VBG pO2 VBG Base Excess Quality Measures Quality Measures VTE prophylaxis (Heparin) Advance care planning discussed with:: patient and child Assessment & Plan Assessment Current Active Medications: Generic Name Dose Route Start Last Admin Trade Name Freq PRN Reason Stop Dose Admin Albuterol/Ipratropium 3 ml 05/27/24 18:08 06/05/24 07:27 Albuterol/Ipratropium (Duoneb) Rt Jimena 3 Ml Nebu INH 06/26/24 18:07 3 ml Q2HR PRN Administration SHORTNESS OF BREATH OR WHEEZE Amiodarone HCl 200 mg 05/29/24 15:00 06/09/24 08:47 Amiodarone Hcl 200 Mg Tablet PO 06/28/24 14:59 200 mg BID ANGELICA Administration Apixaban 5 mg 06/07/24 09:00 06/09/24 10:31 Apixaban 2.5 Mg Tablet PO 07/07/24 08:59 Not Given BID ANGELICA Benzocaine 1 lozenge 05/31/24 11:53 05/31/24 12:54 Benzocaine/Menthol 1 Lozenge PO 06/30/24 11:52 1 lozenge Q4HR PRN Administration Sore throat Dextrose 25 ml 05/24/24 15:43 Dextrose 50%-Water Inj 50 Ml Syringe IV 06/23/24 15:42 Q15MIN PRN BG 50-70 responsive npo pt Dextrose 50 ml 05/24/24 15:43 Dextrose 50%-Water Inj 50 Ml Syringe IV 06/23/24 15:42 Q15MIN PRN BG <50 OR BG <70 & pt unresponsive Dronabinol 5 mg 06/07/24 10:40 06/09/24 07:54 Dronabinol 2.5 Mg Capsule PO 07/07/24 10:39 5 mg BIDAC ANGELICA Administration Fluconazole 200 mg 06/08/24 09:00 06/09/24 08:47 Fluconazole 100 Mg Tablet PO 06/15/24 08:59 200 mg QDAY ANGELICA Administration Furosemide 40 mg 06/09/24 10:15 06/09/24 11:33 Furosemide Inj 10 Mg/Ml 4ml Vial IVP 07/09/24 10:14 40 mg QDAY ANGELICA Administration Glucagon 1 mg 05/24/24 15:43 Glucagon Inj 1 Mg Vial IM Q15MIN PRN BG <70, and no IV access Guaifenesin 200 mg 06/08/24 13:51 06/09/24 05:36 Guaifenesin Syrup 200 Mg/10 Ml Udc PO 07/08/24 13:50 200 mg QID PRN Administration COUGH OR CONGESTION Protocol Heparin Sodium (Porcine) 3,500 unit 06/07/24 18:06 06/08/24 12:07 Heparin Sod Inj 1000 Unit/Ml Vial 10 Ml INDWELLCAT 06/21/24 18:05 3,500 unit PRN PRN Administration DIALYSIS Albumin Human 25 gm in 100 mls @ 100 mls/hr 06/07/24 14:30 06/08/24 09:04 Albuminar-25 Ivpb IV 100 mls/hr PRN PRN Administration DIALYSIS Insulin Glargine 12 unit 05/25/24 09:00 06/09/24 09:38 Insulin Glargine (Lantus) 5 Unit/0.05 Ml (Per 5 Units) SC 06/24/24 08:59 Not Given QDAY ANGELICA Insulin Human Lispro 0 unit 05/24/24 18:00 06/09/24 05:30 Insulin Lispro (Admelog) 1 Unit/0.01 Ml Unit SC 06/23/24 17:59 Not Given Q6HR [facility] Protocol Lidocaine 1 patch 05/30/24 09:16 06/01/24 19:01 Lidocaine 5% 1 Patch TOP 06/29/24 09:15 1 patch DAILY PRN Administration BACK PAIN Midodrine 10 mg 06/07/24 21:00 06/09/24 08:48 Midodrine 5 Mg Tablet PO 07/07/24 20:59 10 mg BID ANGELICA Administration Mirtazapine 15 mg 06/09/24 09:00 06/09/24 08:48 Mirtazapine 15 Mg Tablet PO 07/09/24 08:59 15 mg QDAY ANGELICA Administration Ondansetron HCl 4 mg 05/13/24 11:58 05/14/24 12:31 Ondansetron Inj 2 Mg/Ml Inj 2 Ml IV 06/12/24 11:57 4 mg Q6H PRN Administration NAUSEA OR VOMITING Protocol Pantoprazole Sodium 40 mg 05/15/24 21:00 06/09/24 08:47 Pantoprazole Inj 40 Mg Vial IVP 06/14/24 20:59 40 mg BID ANGELICA Administration Pharmacy Consult 1 each 05/16/24 10:27 Pharmacy Renal Dose Adjustment 1 Ea XX 06/15/24 10:26 PRN PRN CONSULT Polyethylene Glycol 17 gm 06/09/24 10:45 Polyethylene Glycol 17 Gm Packet PO 07/09/24 10:44 BID ANGELICA Sennosides 1 tab 06/09/24 10:45 Senna Tablet PO 07/09/24 10:44 QDAY ANGELICA Protocol Sodium Chloride 3 ml 05/24/24 19:00 Sodium Chloride Rt Jimena 0.9% 3 Ml Nebu INH 06/23/24 18:59 PRN PRN SOLN Timolol Maleate 1 drop 05/28/24 18:15 06/09/24 08:48 Timolol Op Jimena 0.5% 5 Ml Btl BOTH EYES 06/27/24 18:14 1 drop DAILY ANGELICA Administration Plan Ms. Castellanos is a 69-year-old female with past medical history significant for hypertension, diabetes and history of gastric ulcers who presented to the ED on 05/13/2024 after she was found unconscious on the floor. Per chart reviewing prior to this unconsciousness patient was having abdominal pain and generalized weakness with diarrhea and shortness of breath for 2 days. Patient was admitted to the hospital for treatment and management of sepsis secondary to pneumonia. Patient was given 1 L normal saline and started on ceftriaxone and azithromycin. patient underwent ex lap surgery for perforated gastric ulcer. Patient remained intubated postop and was upgraded to the ICU. Patient continues to be on dialysis after downgrade, has BALAJI and accordion drain intact, completed bowel rest, was started on dysphagia 1 diet, surgery following case closely, will continue to monitor. #Perforated gastric ulcer #Hx of gastric ulcers #Pneumoperitoneum #Peritonitis secondary to perforated gastric ulcer - s/p ex lap #Abdominal Abscess, s/p percutaneous drainage x2- removed #Leukocytosis- resolved Patient found to have tender abdomen, rigidity in the epigastrium, chest x-ray showed elevation of hemidiaphragm, CT abdomen showed pneumoperitoneum, concern for perforated viscus, general surgeon Dr. Santana was consulted for emergency laparotomy and possible repair of perforated gastric ulcer. Repeat CT abd/pel on 05/20 revealed Pneumoperitoneum, orogastric tube in the stomach, mild free fluid adjacent to the stomach and anterior to the pancreas. s/p Exploratory laparotomy & repair of perforated gastric ulcer - 05/15. 06/01/24: Overnight there was concern of wound dehiscence. Discussed with general surgeon per surgery superior aspect of the wound was dehiscent after removal of aixa.Surgery removal of BALAJI drain on 06/01. Repeat CT on 06/01- More pronounced fluid collection in the left abdomen below the spleen, 8.9 x 6.4cm, free fluid in the abdomen and pelvis, and Ascites -Abscess culture from 05/25 grew edna albicans -Repeat CT A/P 06/05: abscess collection in the left lower abdomen has markedly decreased in size. the accordions drains have no output this morning. Plan: ?Patient completed antibiotic therapy, Meropenem, discontinued per ID Recommendations -repeat culture sensitivity grew yeast, patient is currently on antifungal will be continued -percutaneous abscess drain catheter placed 06/02 -Pending Abscess Culture from drain 06/02 ?Pain control Fentanyl 25 mcg every 6 hours as needed. And scheduled Plaquemine 5 mg every 6 hours ?disontinue with TPN 06/05 . Patient's diet is advanced to dysphagia 1 and have encouraged family members to bring home-cooked meals that patient would eat ?Continue dronabinol as appetite stimulator ?June 03, 2024: Patient was made n.p.o. by overnight team due to abdominal distention but we resumed her diet and p.o. medications. -accordian drains removed on 06/05 #New onset A-fib with RVR #NSTEMI type 2 -Likely secondary to shock in the setting of abdominal surgery -EKG findings consistent with A-fib -Was on Amiodarone 200 twice daily for new onset Afib, but as she was in AFib with RVR. Plan: ?Cardiology consulted, appreciate recs -Currently on oral amiodarone 200mg ?started eliquis 5mg BID for anticoagulation #Nutrition ?Patient noted to have poor appetite, is finishing less than 50% of her meals, was initially on TPN which is discontinued. -Added dronabinol as appetite stimulator #Acute tubular necrosis likely progressed to ESRD #Anuria -2/2 septic shock -Patient had small amount of urine production on 06/08 however this morning no urine yet -Baseline Cr appears to be 0.7 Plan: ?Patient underwent HD fluid removal and removed 2.1 L on 05/18 and 1.5 L on 05/19, 2L fluid removed 05/21, 2.5 L fluid removed on 05/22 , 3L fluid removed on 05/23, 3L fluid removed 05/25, 2L removed 05/26, 1 L removed 05/29, 1.5 L removed 05/30, 06/01 2L fluid removed. -permanent hemodialysis cath placed on 06/02/24 -Patient will require outpatient hemodialysis, dialysis chair secured by case management - Hemodialysis as per schedule. -Started on midodrine 10 mg BID as patient has difficulty tolerating dialysis, blood pressure drops. -Renally dose medications and avoid nephrotoxic agents -repeat labs in am -lasix 40mg daily -Nephrology following #Acute exacerbation of HFpEF # HFpEF EF 55 to 60% -echo 05/16 -estimated EF of 55 to 60%, stage I diastolic dysfunction noted, Moderate to severe posterior MAC -Pt presented with SOB and 2+ edema in LE -elevated BNP from 304 --> 1110 -HD in the setting of anuria -holding guideline directed medical therapy due to shock, will resume when able -Continue dialysis, as per nephrology recommendations #Acute Hypoxic Respiratory failure #fluid overload in the setting of ATN likely multifactorial -2/2 to pulmonary edema in the setting of volume overload 2/2 ATN due to shock leading to oligoanuria versus bibasilar pneumonia -Further complicated by bilateral lung atelectasis in the setting of recent abdominal surgery and sedatives use -Patient was intubated and on mechanical ventilation (05/15) and extubated 05/18/2024, currently saturating 95-97 % on 5 L NC -Duonebs prn -chest physiotherapy ordered -mucolytics ordered #Acute Upper GI bleed - stable -Most likely secondary to perforated gastric ulcer -Patient had a single episode of black tarry stool today-likely setting of recent abdominal surgery -Continue iv Protonix. -Will monitor for alarm signs of active bleeding with melena or hematochezia #Hx of Diabetes Mellitus type II - A1C 6.3 % 05/21/2024 - Hold home glipizide and januvia - Plan: Continue to monitor blood sugars - Insulin sliding scale ordered with lantus 12 units #Hyperlipidemia -Unclear if patient takes any medications as a statin is not on list of home meds #Primary Hypertension Holding on resuming home blood pressure medicines at this time #Acute blood loss anemia, stable 2/2 perforated ulcer- S/P surgical repair Hgb stable 9.6 Hct 28.3 patient received 2 units of pRBC 05/18 due to acutely drop in Hgb below 7. No signs of active bleeding. Plan: -Continue to monitor daily CBC. transfuse for hemoglobin less than 7. # Acute encephalopathy-resolved -Likely multifactorial secondary to sepsis versus metabolic versus neurologic versus medication -Patient is awake and alert and follows commands. Patient is able to respond to yes or no questions verbally #Shock - resolved #Hypoosmolar Hyponatremia, resolved Disposition: Telemetry DVT prophylaxis: Eliquis 5 mg twice daily anticoagulation for A-fib GI prophylaxis:Protonix 40 BID Diet: Dysphagia 1 diet CODE STATUS: Full Assessment and plan discussed with my senior resident physician Dr. Quiñonez and my attending physician Dr. Luis Enrique Rivera ([id number])- Internal medicine resident Attending Provider Attestation/Addendum I reviewed labs, imaging, EKG, home medications and prior available records. Face to face evaluation was performed by me. I have personally examined the patient and discussed assessment and plan with the IM team. I reviewed the resident note and agree with the plan with exceptions as below. Perforated gastric ulcer Intra-abdominal abscess status post drain X2 ADILSON reaching hemodialysis point, dialysis dependent Atrial fibrillation with controlled ventricular rhythm Continue p.o. fluconazole given the yeast growth in the abscess fluid Drains were removed by surgery. Okay to discharge from surgery standpoint. Follow-up with surgery as outpatient Continue PPI. Not a candidate for PEG tube placement given her recent surgery Continue hemodialysis per nephrology schedule Continue amiodarone and Eliquis Encourage oral intake as TPN is weaned off. Ordered Marinol for appetite stimulation Dialysis catheter was malpositioned. Discussed with IR for repositioning Discussed with social scientist for SNF placement: Since her first outpatient dialysis will be on Wednesday, that cannot happen as outpatient and she needs to do her first session inside the hospital prior to discharge
[2024-06-09] MEDS: HEPARIN SOD LOCK SYR 100 UNIT/ML 500 UNIT STFIELD (13:50)
[2024-06-09] MEDS: LIDOCAINE INJ PF 1% 30 ML VIAL 9 ML INFL (14:18)
[2024-06-09] MEDS: HEPARIN SOD INJ 1000 UNIT/ML VIAL 3300 UNIT INDWELLCAT (14:40)
--- NOTE | 2024-06-09 15:16 | PC.NURSE ---
Patient transferred to Tele via [facility]. Report given to CLARE Smith at bedside. Dressing clean, dry, and intact.
--- NOTE | 2024-06-09 18:39 | PC.NURSE ---
camilo not given this shift,pt,has been NPO,lethargic after procedure.
--- NOTE | 2024-06-09 19:08 | PD.IMPROG ---
Documentation for date of: 06/09/24 Subjective Subjective Interval history: Hemoglobin hematocrit 8.3 and 26.7 No signs of any active bleeding Still poor p.o. intake Exam Vital Signs Temp Pulse Resp BP Pulse Ox O2 Del Method O2 Flow Rate 97.5 F 92 17 131/97 H 100 Nasal Cannula 6 06/09/24 16:00 06/09/24 16:00 06/09/24 16:00 06/09/24 16:00 06/09/24 16:00 06/09/24 16:00 06/09/24 16:00 FiO2 4 06/07/24 00:00 Routine Respiratory Exam Comments: Scattered rhonchi Routine Abdominal Exam Comments: Positive bowel sounds Objective Labs 06/09/24 04:37 06/09/24 04:37 Labs: Laboratory Results - last 24 hr 06/09/24 06/09/24 04:37 11:05 WBC 13.0 H RBC 3.16 L Hgb 8.3 L Hct 26.7 L MCV 85 MCH 26.3 MCHC 31.1 RDW Std Deviation 58.1 H Plt Count 223 D Neut % (Auto) 60 Lymph % (Auto) 25 [place] % (Auto) 8 Eos % (Auto) 4 Baso % (Auto) 1 Neut # (Auto) 7.7 Lymph # (Auto) 3.2 [place] # (Auto) 1.0 H Eos # (Auto) 0.5 Baso # (Auto) 0.2 Immature Gran # (Auto) 0.36 H Absolute Nucleated RBC 0.10 H Immature Gran % 3 H Nucleated RBC % 1 H PT 14.0 H INR 1.3 Sodium 133 L Potassium 4.1 D Chloride 96 L Carbon Dioxide 26.2 Anion Gap 11 BUN 33 H Creatinine 4.1 H* D Estim Creat Clear Calc 11.1 L eGFR 11 L* BUN/Creatinine Ratio 8 L Glucose 105 Calculated Osmolality 273 L Calcium 9.9 Corrected Calcium 10.1 Magnesium 2.3 Total Bilirubin 0.7 AST 19 ALT < 7 L Alkaline Phosphatase 122 H Total Protein 7.5 Albumin 3.8 Globulin 3.7 H Albumin/Globulin Ratio 1.0 L Impressions Impression: # Perforated gastric ulcer status post exploratory laparotomy # Renal failure on hemodialysis # Poor p.o. intake Spoke with the family to bring food from home and maybe she will eat that better ABG Interpretation ABG results: 05/13/24 05/15/2424 08:29 15:28 16:03 ABG pH 7.39 7.05 L* D 7.17 L* D ABG pCO2 31 L 63 H D 45 D ABG pO2 78 L 38 L* D 84 D ABG HCO3 19 L 18 L 16 L ABG O2 Saturation 96 59 L 96 ABG Base Excess -5 L -12 L -11 L VBG pH VBG pCO2 VBG pO2 VBG Base Excess 05/16/24 05/17/24 05/18/24 04:38 04:03 04:20 ABG pH 7.28 L D 7.38 D 7.49 H D ABG pCO2 34 D 28 L 30 L ABG pO2 96 85 66 L ABG HCO3 16 L 17 L 23 ABG O2 Saturation 98 97 94 ABG Base Excess -10 L -8 L 0 VBG pH VBG pCO2 VBG pO2 VBG Base Excess 05/19/24 05/20/24 05/21/24 09:05 06:05 22:35 ABG pH 7.30 L D 7.41 D ABG pCO2 49 H D 42 ABG pO2 63 L 63 L ABG HCO3 24 27 H ABG O2 Saturation 91 93 ABG Base Excess -3 2 VBG pH 7.31 L VBG pCO2 50 VBG pO2 39 VBG Base Excess -2 05/26/24 05/29/24 04:17 12:28 ABG pH 7.38 7.42 ABG pCO2 42 35 ABG pO2 81 L 67 L ABG HCO3 25 23 ABG O2 Saturation 97 95 ABG Base Excess 0 -2 VBG pH VBG pCO2 VBG pO2 VBG Base Excess Assessment & Plan A&P Narrative abd abscess, stain neg. later grew c albicans so on flucon now here since 05/13.usual rx for most things is 7d. left on merrem thru weekend but collection in abd eventually grew a yeast, so ok for another 7d rx will see again if requested Time Spent With Patient Time: Total time spent is greater than 50% in coordination of care (as documented) at patient's floor/unit and/or counseling patient:
[2024-06-09] MEDS: POLYETHYLENE GLYCOL 17 GM PACKET PO (21:59)
[2024-06-09] MEDS: METOPROLOL SUCCINATE XL 25 MG TABCR 50 MG PO (21:59)
[2024-06-09] MEDS: SENNA TABLET 1 TAB PO (22:07)
[2024-06-09] MEDS: BENZOCAINE/MENTHOL 1 LOZENGE PO (23:07)
--- NOTE | 2024-06-09 23:42 | ESPR_ITS ---
Documentation for date of: 06/09/24 Subjective Subjective Interval history: Patient was seen in telemetry today at the bedside, not much respiratory distress noted today. Exam - Neurology Vital Signs Temp Pulse Resp BP Pulse Ox O2 Del Method O2 Flow Rate 98.8 F 128 H 17 103/78 99 Nasal Cannula 4 06/09/24 20:00 06/09/24 22:00 06/09/24 20:00 06/09/24 22:00 06/09/24 20:00 06/09/24 20:00 06/09/24 20:00 FiO2 4 06/07/24 00:00 Narrative Exam GENERAL APPEARANCE: Well-developed, obese built female in mild distress HEENT: Normocephalic, atraumatic, extraocular movements intact. Pupils: Equal reacting to light NECK: Supple, no JVD or bruits. CARDIOVASULAR: Heart: S1, S2 heard, irregular without S3-S4 or murmur no rubs or gallops. LUNGS/CHEST: Bilateral Rales and rhonchi heard. ABDOMEN: Soft, nontender, with normal bowel sounds. No pulsatile masses. No rebound, rigidity, or guarding. Normal inspection and palpation. EXTREMITIES: Significant edema in both upper and lower extremities. SKIN: Warm and dry without rashes. Normal inspection. MUSCULOSKELETAL: No cervical, thoracic, lumbar or midline bony tenderness. Normal inspection. NEURO: Alert, awake, follows commands consistently. Brainstem function: Intact. Moves all 4 extremities but significantly weak all over, no signs of meningeal irritation noted. PSYCHIATRIC: Mood and affect: Normal Objective Labs 06/09/24 04:37 06/09/24 04:37 Labs: Laboratory Results - last 24 hr 06/09/24 06/09/24 04:37 11:05 WBC 13.0 H RBC 3.16 L Hgb 8.3 L Hct 26.7 L MCV 85 MCH 26.3 MCHC 31.1 RDW Std Deviation 58.1 H Plt Count 223 D Neut % (Auto) 60 Lymph % (Auto) 25 [place] % (Auto) 8 Eos % (Auto) 4 Baso % (Auto) 1 Neut # (Auto) 7.7 Lymph # (Auto) 3.2 [place] # (Auto) 1.0 H Eos # (Auto) 0.5 Baso # (Auto) 0.2 Immature Gran # (Auto) 0.36 H Absolute Nucleated RBC 0.10 H Immature Gran % 3 H Nucleated RBC % 1 H PT 14.0 H INR 1.3 Sodium 133 L Potassium 4.1 D Chloride 96 L Carbon Dioxide 26.2 Anion Gap 11 BUN 33 H Creatinine 4.1 H* D Estim Creat Clear Calc 11.1 L eGFR 11 L* BUN/Creatinine Ratio 8 L Glucose 105 Calculated Osmolality 273 L Calcium 9.9 Corrected Calcium 10.1 Magnesium 2.3 Total Bilirubin 0.7 AST 19 ALT < 7 L Alkaline Phosphatase 122 H Total Protein 7.5 Albumin 3.8 Globulin 3.7 H Albumin/Globulin Ratio 1.0 L ABG Interpretation ABG results: 05/13/24 05/15/24 05/15/24 08:29 15:28 16:03 ABG pH 7.39 7.05 L* D 7.17 L* D ABG pCO2 31 L 63 H D 45 D ABG pO2 78 L 38 L* D 84 D ABG HCO3 19 L 18 L 16 L ABG O2 Saturation 96 59 L 96 ABG Base Excess -5 L -12 L -11 L VBG pH VBG pCO2 VBG pO2 VBG Base Excess 05/16/24 05/17/24 05/18/24 04:38 04:03 04:20 ABG pH 7.28 L D 7.38 D 7.49 H D ABG pCO2 34 D 28 L 30 L ABG pO2 96 85 66 L ABG HCO3 16 L 17 L 23 ABG O2 Saturation 98 97 94 ABG Base Excess -10 L -8 L 0 VBG pH VBG pCO2 VBG pO2 VBG Base Excess 05/19/24 05/20/24 05/21/24 09:05 06:05 22:35 ABG pH 7.30 L D 7.41 D ABG pCO2 49 H D 42 ABG pO2 63 L 63 L ABG HCO3 24 27 H ABG O2 Saturation 91 93 ABG Base Excess -3 2 VBG pH 7.31 L VBG pCO2 50 VBG pO2 39 VBG Base Excess -2 05/26/24 05/29/24 04:17 12:28 ABG pH 7.38 7.42 ABG pCO2 42 35 ABG pO2 81 L 67 L ABG HCO3 25 23 ABG O2 Saturation 97 95 ABG Base Excess 0 -2 VBG pH VBG pCO2 VBG pO2 VBG Base Excess Assessment & Plan Additional Assessment & Plan Additional Plan: 69-year-old female with past medical history of CKD stage III, prediabetes, hypertension who was found unconscious in her room. As well as diarrhea and shortness of breath. Admitted for sepsis secondary to pneumonia and acute metabolic encephalopathy #Acute metabolic encephalopathy- currently in telemetry, significant improvement noted, close to baseline #Generalized weakness --Brain MRI with MRA shows significant stenoses in posterior cerebral artery, no acute infarction noted -Will continue with the current management as per primary team Continue with the passive range of motion exercises prevent contracture Physical therapy as she tolerates.
[2024-06-10] VITALS (31 sets, daily range): BP systolic 91–128; BP diastolic 40–89; PULSE 91–132; RESP 16–28; TEMP 36.6–37.4; O2SAT 95–100; BMI 33.5
[2024-06-10] MEDS: ALBUTEROL/IPRATROPIUM (Duoneb) RT SOL 3 ML NEBU INH ×2 (03:36→21:12)
[2024-06-10 05:52] LABS: Basophils # (Auto) 0.2 Thou/mm3 (0.0-0.2); Basophils % (Auto) 1 % (0-2.5); Eosinophils # (Auto) 0.5 Thou/mm3 (0.0-0.5); Eosinophils % (Auto) 2 % (0-10); Hematocrit 26.1 % (36.0-46.0); Immature Granulocytes % (Auto) 1 % (0-0); Immature Granulocytes Auto 0.29 Thou/mm3 (0.00-0.00); Lymphocytes # (Auto) 4.1 Thou/mm3 (1.0-4.8); Lymphocytes % (Auto) 20 % (10-50); Mean Corpuscular HGB Conc 31.4 g/dl (31.0-37.0); Mean Corpuscular Hemoglobin 26.5 pg (25.0-35.0); Mean Corpuscular Volume 84 fL (80-100); Monocytes # (Auto) 1.3 Thou/mm3 (0.0-0.8); Monocytes % (Auto) 6 % (0-12); Neutrophils # (Auto) 14.5 Thou/mm3 (1.8-7.7); Neutrophils % (Auto) 69 % (37-80); Nucleated Red Blood Cell # 0.11 Thou/mm3 (0.00-0.00); Nucleated Red Blood Cell % 1 /100 WBC (0); Platelet Count 246 Thou/mm3 (140-440); RDW Standard Deviation 57.6 fL (36.4-46.3); White Blood Count 20.9 Thou/mm3 (3.6-11.0)
[2024-06-10 05:56] LABS: Hemoglobin 8.2 g/dL (12.0-16.0)
[2024-06-10 06:39] LABS: Alanine Aminotransferase < 7 U/L (10-49); Albumin, Serum 3.8 gm/dL (3.4-4.8); Albumin/Globulin Ratio 1.1 (1.2-2.2); Alkaline Phosphatase 122 U/L (46-116); Anion Gap 14 (7-16); Aspartate Amino Transferase 11 U/L (0-34); BUN/Creatinine Ratio 9 Ratio (12-20); Bilirubin,Total 0.6 mg/dL (0.3-1.2); Blood Urea Nitrogen 51 mg/dL (9-23); Calcium 9.9 mg/dL (8.3-10.6); Calcium (Corrected) 10.1 mg/dL (8.5-10.1); Carbon Dioxide 23.5 mMol/L (20.0-31.0); Chloride 97 mMol/L (98-107); Creatinine (Component) 5.4 mg/dL (0.6-1.3); Estimated Creatinine Clearance 8.2 mL/min (>60); Globulin 3.5 gm/dL (2.3-3.5); Glucose 101 mg/dL (74-106); Osmolality,Calculated 281 (275-295); Potassium 4.8 mMol/L (3.4-5.1); Sodium 134 mMol/L (136-145); Total Protein 7.3 gm/dL (5.7-8.2); eGFR 8 See Note
--- NOTE | 2024-06-10 07:16 | ESPR_ITS ---
Documentation for date of: 06/10/24 Subjective Subjective Interval history: Interval history: Mr. Castellanos is a [id number] with past medical history of prediabetes, CKD, hypertension, history of ulcers who was admitted to [facility] for sepsis secondary to pneumonia and acute metabolic encephalopathy. Patient was BIBA to the ED after being found unconscious on the floor. According to the son on admission patient's daughter found the patient at 3 AM passed out on the floor and unresponsive. Family is unaware along the patient was on the floor. 2 days ago patient started to develop abdominal pain and weakness all over her body associated with some diarrhea and shortness of breath. Patient's abdominal pain comes and goes from right side to left side of the abdomen. ED course patient was hypertensive tachycardic tachypneic and was saturating 92% on 5 L nasal cannula ED labs significant for WBCs 24.3, bicarb 19.6, glucose 259, lactic acid 2.2, BNP 304, troponin 0.09. 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, colonic diverticulosis, Cervical spine CT showed 3 mm radiolucency in C3 vertebral body Chest CTA showed mild aneurysmal dilatation ascending thoracic aorta AP dimension 4.3 cm and pulmonary artery hypertension with moderate vascular congestion Face CT shows no acute facial fracture, Lumbar spine CT shows no acute lumbar fracture severe acquired spinal stenosis L4-L5, Thoracic spine CT showed no acute fracture Brain MRI with MRA showed equally focal restricted diffusion brainstem medullary level significant stenosis of right P1 P2 segment posterior cerebral artery Postadmission, cardiology was consulted on admission because of elevated troponins, suspicion of NSTEMI type II, patient has acute decompensated heart failure per cardiology evaluation, neurology consulted because of patient's acute metabolic encephalopathy and GI was consulted for suspicion of GI bleed. Eventually on 05/15 rapid response was called for worsening chest pain, patient's map was consistently in 70s, was tachycardic tachypneic. CT angiogram showed pneumoperitoneum multiple air droplets adjacent to and within wall of stomach with suspicion of gastric perforation. General surgery was consulted for emergency surgery and patient had exploratory laparotomy with repair of perforated gastric ulcer with an omental patch. Patient was upgraded to ICU postop for further management patient currently on Levophed and vasopressor due to distributive shock, currently sedated and intubated on mechanical ventilation. Nephrology consulted due to concern of ADILSON. 06/10/2024 patient currently seen in telemetry. Patient complaining of abdominal pain. Scheduled for dialysis today. Although did have some trouble with catheter before. tPA was placed. Catheter could not be exchanged yesterday. Will monitor catheter function closely. Unfortunately IR not available until Wednesday. Review of Systems Review of Systems Narrative Review of Systems: Limited due to her mentation. Denies any chest pain. Mild shortness of breath with wheezing. c/o Abdominal pain. Exam Vital Signs Temp Pulse Resp BP Pulse Ox O2 Del Method O2 Flow Rate 37.4 C 103 H 20 110/89 H 100 Nasal Cannula 2 06/10/24 04:00 06/10/24 04:00 06/10/24 04:00 06/10/24 04:00 06/10/24 04:00 06/10/24 04:00 06/10/24 04:00 FiO2 4 06/07/24 00:00 Narrative Exam GEN: AOx2, flat mood and affect, in semi-sitting position HEENT: NC/AC, oral mucosa moist, neck supple CVS: RRR, S1-S2 present, no murmurs appreciated RESP: Significant rhonchi and wheezing bilaterally, with coughing GI: soft,non distended, non tender, NBS MSK: able to move all 4 limbs, +1 lower extremity edema SKIN: warm and dry PROCESS PLANNER: Goes back to sleep quickly. Arousable. Objective Labs 06/10/24 05:28 06/10/24 05:28 Labs: Laboratory Results - last 24 hr 06/09/24 06/09/24 06/10/24 04:37 11:05 05:28 WBC 20.9 H D RBC 3.10 L Hgb 8.2 L Hct 26.1 L MCV 84 MCH 26.5 MCHC 31.4 RDW Std Deviation 57.6 H Plt Count 246 Neut % (Auto) 69 Lymph % (Auto) 20 [place] % (Auto) 6 Eos % (Auto) 2 Baso % (Auto) 1 Neut # (Auto) 14.5 H Lymph # (Auto) 4.1 [place] # (Auto) 1.3 H Eos # (Auto) 0.5 Baso # (Auto) 0.2 Immature Gran # (Auto) 0.29 H Absolute Nucleated RBC 0.11 H Immature Gran % 1 H Nucleated RBC % 1 H PT 14.0 H INR 1.3 Sodium 134 L Potassium 4.8 D Chloride 97 L Carbon Dioxide 23.5 Anion Gap 14 BUN 51 H Creatinine 5.4 H* D Estim Creat Clear Calc 8.2 L eGFR 8 L* BUN/Creatinine Ratio 9 L Glucose 101 Calculated Osmolality 281 Calcium 9.9 Corrected Calcium 10.1 Magnesium 2.3 Total Bilirubin 0.6 AST 11 ALT < 7 L Alkaline Phosphatase 122 H Total Protein 7.3 Albumin 3.8 Globulin 3.5 Albumin/Globulin Ratio 1.1 L ABG Interpretation ABG results: 05/13/24 05/15/24 05/15/24 08:29 15:28 16:03 ABG pH 7.39 7.05 L* D 7.17 L* D ABG pCO2 31 L 63 H D 45 D ABG pO2 78 L 38 L* D 84 D ABG HCO3 19 L 18 L 16 L ABG O2 Saturation 96 59 L 96 ABG Base Excess -5 L -12 L -11 L VBG pH VBG pCO2 VBG pO2 VBG Base Excess 05/16/24 05/17/24 05/18/24 04:38 04:03 04:20 ABG pH 7.28 L D 7.38 D 7.49 H D ABG pCO2 34 D 28 L 30 L ABG pO2 96 85 66 L ABG HCO3 16 L 17 L 23 ABG O2 Saturation 98 97 94 ABG Base Excess -10 L -8 L 0 VBG pH VBG pCO2 VBG pO2 VBG Base Excess 05/19/24 05/20/24 05/21/24 09:05 06:05 22:35 ABG pH 7.30 L D 7.41 D ABG pCO2 49 H D 42 ABG pO2 63 L 63 L ABG HCO3 24 27 H ABG O2 Saturation 91 93 ABG Base Excess -3 2 VBG pH 7.31 L VBG pCO2 50 VBG pO2 39 VBG Base Excess -2 05/26/24 05/29/24 04:17 12:28 ABG pH 7.38 7.42 ABG pCO2 42 35 ABG pO2 81 L 67 L ABG HCO3 25 23 ABG O2 Saturation 97 95 ABG Base Excess 0 -2 VBG pH VBG pCO2 VBG pO2 VBG Base Excess Assessment & Plan Additional Assessment & Plan Additional Plan: Mr. Castellanos is a [id number] with past medical history of prediabetes, CKD, hypertension, history of ulcers who was admitted to [facility] for sepsis secondary to pneumonia and acute metabolic encephalopathy. Patient is currently sedated intubated in ICU status post exploratory laparotomy with repair of perforated gastric ulcer with an omental patch. Nephrology consulted for acute kidney injury. #Acute kidney injury #Acute Tubular Necrosis 2/2 shock #Anasarca Patient currently seems to be in ATN probably ischemic from fluctuations in blood pressure and underlying shock- started her on dialysis. Patient has left IJ PermCath Scheduled for dialysis today. Hopefully catheter will work Hemodialysis for 3 hours, 2K, ultrafiltration 2-3 L, Epogen 6000, no heparin ordered. Plan of care discussed with the dialysis nurse. Please see dialysis flowsheet for further details. Plan discussed with primary team #Acute ischemic stroke #Acute decompensated HF #Hyperlipidemia #Primary Hypertension #Acute Hypoxic Respiratory failure #Peritonitis secondary to perforated gastric ulcer- s/p sx, drains removed #Acute Upper GI bleed #Diabetes Mellitus type II #Acute anemia All above problems per primary team. Prognosis remains guarded.
--- NOTE | 2024-06-10 07:18 | XR_ITS ---
Examination: AP chest single view Technique one AP portable upright chest single view Exam date and time: June 10, 2024 at 0729 hrs. Comparison June 07, 2024 Indications: Coughing congestion today. Findings: Mild CHF Mild enlargement cardiac contour with prominent vascular congestion and perihilar edema Bibasilar opacity consistent with pneumonia Left internal jugular dialysis catheter tip satisfactory position Impression: Significant bibasilar pneumonia Mild heart failure
--- NOTE | 2024-06-10 07:18 | XR_ITS ---
Examination: CT abdomen with intravenous contrast CT pelvis with intravenous contrast 2-D coronal reconstructions 2-D sagittal reconstructions Date and time of exam:June 10, 2024 1001 hrs. Comparison June 04, 2024 Indications: Status post abdominal surgery, history abscess left lower abdomen post catheter drainage, worsening leukocytosis and abdominal pain this week, renal failure diagnosis. CTDI: vol (mGy) 13 DLP: (mGycm) 644 Technique: Multiple axial sections of the abdomen and pelvis have been obtained. 64 slice high-resolution scanner used. 3 mm axial sections have been obtained, post intravenous injection 60 cc [id number] 2-D sagittal, coronal reconstructions obtained. Low dose protocols were performed. One or more of the following dose reduction techniques were used; automated exposure control, adjustment of the mA and/or KV according to patient size, use of iterative reconstruction technique. Findings: Significant vascular congestion Pneumonia left base Small bilateral pleural effusions Mild to moderate enlargement cardiac contour with mitral valvular calcification Liver mildly irregular in contour fatty infiltration Gallbladder wall appears mildly thickened Stable small fluid collection 3 cm posterior to the stomach Gastric mucosa appears thickened Aorta normal size No hydronephrosis 4.5 cm left renal cyst The left lower abdomen drainage catheter is no longer identified The fluid collection in the left lower abdomen is again depicted, AP dimension 4.9 cm mediolateral dimension 2.2 cm Fluid collection in the right lower abdomen axial image 152, measuring 4.4 x 1.2 cm Additional fluid collection in the right pelvis, mediolateral dimension 4.9 cm AP dimension 1.4 cm Contracted urinary bladder Impression: Pneumonia left base Recommend hepatobiliary sonography follow-up to exclude gallbladder wall thickening Multiple abdominal and pelvic abscesses as above
[2024-06-10] MEDS: PANTOPRAZOLE INJ 40 MG VIAL IVP ×2 (08:13→20:57)
[2024-06-10] MEDS: MIDODRINE 5 MG TABLET 10 MG PO (08:13)
[2024-06-10] MEDS: FLUCONAZOLE 100 MG TABLET 200 MG PO (08:14)
[2024-06-10] MEDS: droNABinol 2.5 MG CAPSULE 5 MG PO (08:15)
[2024-06-10] MEDS: AMIODARONE HCL 200 MG TABLET PO (08:28)
[2024-06-10] MEDS: SENNA TABLET 1 TAB PO (08:28)
[2024-06-10] MEDS: METOPROLOL SUCCINATE XL 25 MG TABCR 50 MG PO (08:29)
[2024-06-10] MEDS: MIRTAZAPINE 15 MG TABLET PO (08:29)
[2024-06-10] MEDS: guaiFENesin SYRUP 200 MG/10 ML UDC PO ×2 (09:20→12:55)
[2024-06-10] MEDS: TIMOLOL OP SOL 0.5% 5 ML BTL 1 DROP BOTH EYES (09:21)
[2024-06-10 11:57] LABS: Magnesium 2.4 mg/dL (1.6-2.6)
--- NOTE | 2024-06-10 12:08 | PD.RESPRO ---
Documentation for date of: 06/10/24 Subjective Subjective Interval history: Patient evaluated bedside, Noted heart rate in the 120s, currently in A-fib RVR, patient is drowsy, coughing, crackles on examination. Also complaining of pelvic discomfort, ordered CT abdomen pelvis which showed multiple abdominal abscesses, largest in the pelvis, 4 cm, spoke to Dr. Santana who recommended a CT guided IR drainage of abscess. Unfortunately we will not have IR coverage on the s, the procedure will have to be scheduled for Wednesday. The patient's previous abscess cultures grew Edna, apparently no response to fluconazole, will start the patient on IV micafungin and reach out to infectious disease specialist Dr Horn on Wednesday for persistent mycotic abdominal abscesses. Ordered CT-guided abscess drainage, holding patient's Eliquis, starting on IV heparin to be discontinued 4 AM on Wednesday. Also noticed small blisters around patient's oral mucosa, will add oral care, at this point no intraoral lesions or any other generalized skin rash noted. Exam Vital Signs Temp Pulse Resp BP Pulse Ox O2 Del Method O2 Flow Rate 99.4 F 132 H 19 112/60 96 Nasal Cannula 2 06/10/24 08:00 06/10/24 11:01 06/10/24 11:01 06/10/24 09:17 06/10/24 11:01 06/10/24 08:00 06/10/24 11:01 FiO2 4 06/07/24 00:00 Narrative Exam GENERAL: A&Ox3 . Awake but somnolent, complaining of abdominal discomfort NEURO: no focal neurological deficits HEENT: Atraumatic, Normocephalic. mucous membranes moist. Eyes open, symmetrical, & clear HEART: Normal Heart Sounds LUNGS: Bilateral crackles and rhonchi, excessive secretions. ABDOMEN: soft, non-distended, non-tender, bowel sounds heard, no guarding or rebound tenderness, dressing overlying surgical site is clean and dry. SKIN: Also noticed small blisters around patient's oral mucosa, will add oral care, at this point no intraoral lesions or any other generalized skin rash noted. EXTREMITIES: trace pitting edema bilaterally on LE, tenderness, able to move all 4 extremities, pedal pulses palpated Objective Labs 06/11/24 05:18 06/11/24 05:18 Labs: Laboratory Results - last 24 hr 06/09/24 06/10/24 06/10/24 11:05 05:18 05:28 WBC 20.9 H D RBC 3.10 L Hgb 8.2 L Hct 26.1 L MCV 84 MCH 26.5 MCHC 31.4 RDW Std Deviation 57.6 H Plt Count 246 Neut % (Auto) 69 Lymph % (Auto) 20 [place] % (Auto) 6 Eos % (Auto) 2 Baso % (Auto) 1 Neut # (Auto) 14.5 H Lymph # (Auto) 4.1 [place] # (Auto) 1.3 H Eos # (Auto) 0.5 Baso # (Auto) 0.2 Immature Gran # (Auto) 0.29 H Absolute Nucleated RBC 0.11 H Immature Gran % 1 H Nucleated RBC % 1 H PT 14.0 H INR 1.3 Sodium 134 L Potassium 4.8 D Chloride 97 L Carbon Dioxide 23.5 Anion Gap 14 BUN 51 H Creatinine 5.4 H* D Estim Creat Clear Calc 8.2 L eGFR 8 L* BUN/Creatinine Ratio 9 L Glucose 101 Calculated Osmolality 281 Calcium 9.9 Corrected Calcium 10.1 Magnesium 2.4 Total Bilirubin 0.6 AST 11 ALT < 7 L Alkaline Phosphatase 122 H Total Protein 7.3 Albumin 3.8 Globulin 3.5 Albumin/Globulin Ratio 1.1 L ABG Interpretation ABG results: 05/13/24 05/15/24 05/15/24 08:29 15:28 16:03 ABG pH 7.39 7.05 L* D 7.17 L* D ABG pCO2 31 L 63 H D 45 D ABG pO2 78 L 38 L* D 84 D ABG HCO3 19 L 18 L 16 L ABG O2 Saturation 96 59 L 96 ABG Base Excess -5 L -12 L -11 L VBG pH VBG pCO2 VBG pO2 VBG Base Excess 05/16/24 05/17/24 05/18/24 04:38 04:03 04:20 ABG pH 7.28 L D 7.38 D 7.49 H D ABG pCO2 34 D 28 L 30 L ABG pO2 96 85 66 L ABG HCO3 16 L 17 L 23 ABG O2 Saturation 98 97 94 ABG Base Excess -10 L -8 L 0 VBG pH VBG pCO2 VBG pO2 VBG Base Excess 05/19/24 05/20/24 05/21/24 09:05 06:05 22:35 ABG pH 7.30 L D 7.41 D ABG pCO2 49 H D 42 ABG pO2 63 L 63 L ABG HCO3 24 27 H ABG O2 Saturation 91 93 ABG Base Excess -3 2 VBG pH 7.31 L VBG pCO2 50 VBG pO2 39 VBG Base Excess -2 05/26/24 05/29/24 04:17 12:28 ABG pH 7.38 7.42 ABG pCO2 42 35 ABG pO2 81 L 67 L ABG HCO3 25 23 ABG O2 Saturation 97 95 ABG Base Excess 0 -2 VBG pH VBG pCO2 VBG pO2 VBG Base Excess Quality Measures Quality Measures none Advance care planning discussed with:: patient Assessment & Plan Assessment Current Active Medications: Generic Name Dose Route Start Last Admin Trade Name Freq PRN Reason Stop Dose Admin Acetaminophen 650 mg 06/09/24 14:11 Acetaminophen 325 Mg Tablet PO 07/09/24 14:10 Q6HR PRN Fever >101 and pain 1-3 Hydrocodone Bitart/Acetaminophen 1 tab 06/09/24 14:11 Hydrocodone/Apap 5/325 Tablet PO 06/14/24 14:10 Q4HR PRN PAIN SCALE 4-10(Mod-Sev Albuterol/Ipratropium 3 ml 05/27/24 18:08 06/10/24 03:36 Albuterol/Ipratropium (Duoneb) Rt Jimena 3 Ml Nebu INH 06/26/24 18:07 3 ml Q2HR PRN Administration SHORTNESS OF BREATH OR WHEEZE Amiodarone HCl 200 mg 05/29/24 15:00 06/10/24 08:28 Amiodarone Hcl 200 Mg Tablet PO 06/28/24 14:59 200 mg BID ANGELICA Administration Apixaban 5 mg 06/07/24 09:00 06/09/24 10:31 Apixaban 2.5 Mg Tablet PO 07/07/24 08:59 Not Given BID ANGELICA Benzocaine 1 lozenge 05/31/24 11:53 06/09/24 23:07 Benzocaine/Menthol 1 Lozenge PO 06/30/24 11:52 1 lozenge Q4HR PRN Administration Sore throat Dextrose 25 ml 05/24/24 15:43 Dextrose 50%-Water Inj 50 Ml Syringe IV 06/23/24 15:42 Q15MIN PRN BG 50-70 responsive npo pt Dextrose 50 ml 05/24/24 15:43 Dextrose 50%-Water Inj 50 Ml Syringe IV 06/23/24 15:42 Q15MIN PRN BG <50 OR BG <70 & pt unresponsive Dronabinol 5 mg 06/07/24 10:40 06/10/24 08:15 Dronabinol 2.5 Mg Capsule PO 07/07/24 10:39 5 mg BIDAC ANGELICA Administration Epoetin Chang 10,000 unit 06/10/24 14:00 Epoetin Chang-Epbx Inj 10,000 Unit/Ml Vial (Esrd) SC 06/10/24 14:01 X1 ONE Fluconazole 200 mg 06/08/24 09:00 06/10/24 08:14 Fluconazole 100 Mg Tablet PO 06/15/24 08:59 200 mg QDAY ANGELICA Administration Furosemide 40 mg 06/09/24 10:15 06/10/24 09:17 Furosemide Inj 10 Mg/Ml 4ml Vial IVP 07/09/24 10:14 Not Given QDAY ANGELICA Glucagon 1 mg 05/24/24 15:43 Glucagon Inj 1 Mg Vial IM Q15MIN PRN BG <70, and no IV access Guaifenesin 200 mg 06/10/24 08:30 06/10/24 09:20 Guaifenesin Syrup 200 Mg/10 Ml Udc PO 07/10/24 08:29 200 mg QID ANGELICA Administration Protocol Heparin Sodium (Porcine) 3,500 unit 06/07/24 18:06 06/08/24 12:07 Heparin Sod Inj 1000 Unit/Ml Vial 10 Ml INDWELLCAT 06/21/24 18:05 3,500 unit PRN PRN Administration DIALYSIS Albumin Human 25 gm in 100 mls @ 100 mls/hr 06/07/24 14:30 06/08/24 09:04 Albuminar-25 Ivpb IV 100 mls/hr PRN PRN Administration DIALYSIS Piperacillin/Tazobactam/Dextrose 2.25 gm in 50 mls @ 100 mls/hr 06/10/24 12:10 Zosyn IV 06/17/24 12:09 Q12HR ANGELICA Insulin Glargine 12 unit 05/25/24 09:00 06/10/24 09:17 Insulin Glargine (Lantus) 5 Unit/0.05 Ml (Per 5 Units) SC 06/24/24 08:59 Not Given QDAY ANGELICA Insulin Human Lispro 0 unit 05/24/24 18:00 06/10/24 05:22 Insulin Lispro (Admelog) 1 Unit/0.01 Ml Unit SC 06/23/24 17:59 Not Given Q6HR ANGELICA Protocol Lidocaine 1 patch 05/30/24 09:16 06/01/24 19:01 Lidocaine 5% 1 Patch TOP 06/29/24 09:15 1 patch DAILY PRN Administration BACK PAIN Metoprolol Succinate 50 mg 06/09/24 21:05 06/10/24 08:29 Metoprolol Succinate Xl 25 Mg Tabcr PO 07/09/24 21:04 50 mg QDAY ANGELICA Administration Midodrine 10 mg 06/07/24 21:00 06/10/24 08:13 Midodrine 5 Mg Tablet PO 07/07/24 20:59 10 mg BID ANGELICA Administration Mirtazapine 15 mg 06/09/24 09:00 06/10/24 08:29 Mirtazapine 15 Mg Tablet PO 07/09/24 08:59 15 mg QDAY ANGELICA Administration Ondansetron HCl 4 mg 05/13/24 11:58 05/14/24 12:31 Ondansetron Inj 2 Mg/Ml Inj 2 Ml IV 06/12/24 11:57 4 mg Q6H PRN Administration NAUSEA OR VOMITING Protocol Pantoprazole Sodium 40 mg 05/15/24 21:00 06/10/24 08:13 Pantoprazole Inj 40 Mg Vial IVP 06/14/24 20:59 40 mg BID ANGELICA Administration Pharmacy Consult 1 each 05/16/24 10:27 Pharmacy Renal Dose Adjustment 1 Ea XX 06/15/24 10:26 PRN PRN CONSULT Pharmacy Consult 1 each 06/10/24 12:15 Vancomycin Pharmacy To Dose 1 Each Each IV 07/10/24 12:14 QDAY ANGELICA Polyethylene Glycol 17 gm 06/09/24 10:45 06/10/24 09:18 Polyethylene Glycol 17 Gm Packet PO 07/09/24 10:44 Not Given BID ANGELICA Sennosides 1 tab 06/09/24 10:45 06/10/24 08:28 Senna Tablet PO 07/09/24 10:44 1 tab QDAY ANGELICA Administration Protocol Sodium Chloride 3 ml 05/24/24 19:00 Sodium Chloride Rt Jimena 0.9% 3 Ml Nebu INH 06/23/24 18:59 PRN PRN SOLN Timolol Maleate 1 drop 05/28/24 18:15 06/10/24 09:21 Timolol Op Jimena 0.5% 5 Ml Btl BOTH EYES 06/27/24 18:14 1 drop DAILY ANGELICA Administration Plan Ms. Castellanos is a 69-year-old female with past medical history significant for hypertension, diabetes and history of gastric ulcers who presented to the ED on 05/13/2024 after she was found unconscious on the floor. Per chart reviewing prior to this unconsciousness patient was having abdominal pain and generalized weakness with diarrhea and shortness of breath for 2 days. Patient was admitted to the hospital for treatment and management of sepsis secondary to pneumonia. Patient was given 1 L normal saline and started on ceftriaxone and azithromycin. patient underwent ex lap surgery for perforated gastric ulcer. Patient remained intubated postop and was upgraded to the ICU. Patient continues to be on dialysis after downgrade, has BALAJI and accordion drain intact, completed bowel rest, was started on dysphagia 1 diet, surgery following case closely, will continue to monitor. #Abdominal pelvic abscess?likely Edna ? IV micafungin, in addition to fluconazole, increase fluconazole to 400 mg daily. ? IR CT guided abscess drainage ordered after talking to surgeon Dr. Silva. Likely to be scheduled for Wednesday. ? Ordered abscess culture sensitivity following drainage #Perforated gastric ulcer #Hx of gastric ulcers #Pneumoperitoneum #Peritonitis secondary to perforated gastric ulcer - s/p ex lap #Abdominal Abscess, s/p percutaneous drainage x2- removed #Leukocytosis- resolved Patient found to have tender abdomen, rigidity in the epigastrium, chest x-ray showed elevation of hemidiaphragm, CT abdomen showed pneumoperitoneum, concern for perforated viscus, general surgeon Dr. Santana was consulted for emergency laparotomy and possible repair of perforated gastric ulcer. Repeat CT abd/pel on 05/20 revealed Pneumoperitoneum, orogastric tube in the stomach, mild free fluid adjacent to the stomach and anterior to the pancreas. s/p Exploratory laparotomy & repair of perforated gastric ulcer - 05/15. 06/01/24: Overnight there was concern of wound dehiscence. Discussed with general surgeon per surgery superior aspect of the wound was dehiscent after removal of aixa.Surgery removal of BALAJI drain on 06/01. Repeat CT on 06/01- More pronounced fluid collection in the left abdomen below the spleen, 8.9 x 6.4cm, free fluid in the abdomen and pelvis, and Ascites -Abscess culture from 05/25 grew edna albicans -Repeat CT A/P 06/05: abscess collection in the left lower abdomen has markedly decreased in size. the accordions drains have no output this morning. Plan: ?Patient completed antibiotic therapy, Meropenem, discontinued per ID Recommendations -repeat culture sensitivity grew yeast, patient is currently on antifungal will be continued -percutaneous abscess drain catheter placed 06/02 -Pending Abscess Culture from drain 06/02 ?Pain control Fentanyl 25 mcg every 6 hours as needed. And scheduled Parsons 5 mg every 6 hours ?disontinue with TPN 06/05 . Patient's diet is advanced to dysphagia 1 and have encouraged family members to bring home-cooked meals that patient would eat ?Continue dronabinol as appetite stimulator ?June 03, 2024: Patient was made n.p.o. by overnight team due to abdominal distention but we resumed her diet and p.o. medications. -accordian drains removed on 06/05 #New onset A-fib with RVR #NSTEMI type 2 -Likely secondary to shock in the setting of abdominal surgery -EKG findings consistent with A-fib -Was on Amiodarone 200 twice daily for new onset Afib, but as she was in AFib with RVR. Plan: ?Cardiology consulted, appreciate recs -Currently on oral amiodarone 200mg ? Holding eliquis 5mg BID for anticoagulation, in anticipation of procedure, will start heparin drip #Nutrition ?Patient noted to have poor appetite, is finishing less than 50% of her meals, was initially on TPN which is discontinued. -Added dronabinol as appetite stimulator #Acute tubular necrosis likely progressed to ESRD #Anuria -2/2 septic shock -Patient had small amount of urine production on 06/08 however this morning no urine yet -Baseline Cr appears to be 0.7 Plan: ?Patient underwent HD fluid removal and removed 2.1 L on 05/18 and 1.5 L on 05/19, 2L fluid removed 05/21, 2.5 L fluid removed on 05/22 , 3L fluid removed on 05/23, 3L fluid removed 05/25, 2L removed 05/26, 1 L removed 05/29, 1.5 L removed 05/30, 06/01 2L fluid removed. -permanent hemodialysis cath placed on 06/02/24 -Patient will require outpatient hemodialysis, dialysis chair secured by case management - Hemodialysis as per schedule. -Started on midodrine 10 mg BID as patient has difficulty tolerating dialysis, blood pressure drops. -Renally dose medications and avoid nephrotoxic agents -repeat labs in am -lasix 40mg daily -Nephrology following #Acute exacerbation of HFpEF # HFpEF EF 55 to 60% -echo 05/16 -estimated EF of 55 to 60%, stage I diastolic dysfunction noted, Moderate to severe posterior MAC -Pt presented with SOB and 2+ edema in LE -elevated BNP from 304 --> 1110 -HD in the setting of anuria -holding guideline directed medical therapy due to shock, will resume when able -Continue dialysis, as per nephrology recommendations #Acute Hypoxic Respiratory failure #fluid overload in the setting of ATN likely multifactorial -2/2 to pulmonary edema in the setting of volume overload 2/2 ATN due to shock leading to oligoanuria versus bibasilar pneumonia -Further complicated by bilateral lung atelectasis in the setting of recent abdominal surgery and sedatives use -Patient was intubated and on mechanical ventilation (05/15) and extubated 05/18/2024, currently saturating 95-97 % on 5 L NC -Duonebs prn -chest physiotherapy ordered -mucolytics ordered #Acute Upper GI bleed - stable -Most likely secondary to perforated gastric ulcer -Patient had a single episode of black tarry stool today-likely setting of recent abdominal surgery -Continue iv Protonix. -Will monitor for alarm signs of active bleeding with melena or hematochezia #Hx of Diabetes Mellitus type II - A1C 6.3 % 05/21/2024 - Hold home glipizide and januvia - Plan: Continue to monitor blood sugars - Insulin sliding scale ordered with lantus 12 units #Hyperlipidemia -Unclear if patient takes any medications as a statin is not on list of home meds #Primary Hypertension Holding on resuming home blood pressure medicines at this time #Acute blood loss anemia, stable 2/2 perforated ulcer- S/P surgical repair Hgb stable 9.6 Hct 28.3 patient received 2 units of pRBC 05/18 due to acutely drop in Hgb below 7. No signs of active bleeding. Plan: -Continue to monitor daily CBC. transfuse for hemoglobin less than 7. # Acute encephalopathy-resolved -Likely multifactorial secondary to sepsis versus metabolic versus neurologic versus medication -Patient is awake and alert and follows commands. Patient is able to respond to yes or no questions verbally #Shock - resolved #Hypoosmolar Hyponatremia, resolved Disposition: Telemetry DVT prophylaxis: Eliquis 5 mg twice daily anticoagulation for A-fib GI prophylaxis:Protonix 40 BID Diet: Dysphagia 1 diet CODE STATUS: Full PLan of care discussed with my attending Khang PGY2 Attending Provider Attestation/Addendum I reviewed labs, imaging, EKG, home medications and prior available records. Face to face evaluation was performed by me. I have personally examined the patient and discussed assessment and plan with the IM team. I reviewed the resident note and agree with the plan with exceptions as below. Hospital-acquired pneumonia Sepsis due to pneumonia Perforated gastric ulcer Intra-abdominal abscess status post drain X2 ADILSON reaching hemodialysis point, dialysis dependent Atrial fibrillation with controlled ventricular rhythm WBC is uptrending and patient is tachycardic. Ordered chest x-ray that showed bibasilar pneumonia. Restarted vancomycin/cefepime given the uptrending WBC Change antifungal to micafungin. Appreciate ID recommendations Drains were removed by surgery Discussed with general surgery: Recommended IR guided drainage to rule out recurrence of abdominal abscess. IR consulted Continue PPI. Not a candidate for PEG tube placement given her recent surgery Continue hemodialysis per nephrology schedule Continue amiodarone and Eliquis Encourage oral intake as TPN is weaned off. Ordered Marinol for appetite stimulation
--- NOTE | 2024-06-10 12:51 | ESPR_ITS ---
Documentation for date of: 06/10/24 Subjective Subjective Interval history: Patient examined at bedside. Patient remains to be in A-fib rate in the 120s to 130s on telemetry. Patient examined today and she says she is having left quadrant pain. She says she is in pain and is coughing and does not feel good. She has no other complaints at this time. Exam Vital Signs Temp Pulse Resp BP Pulse Ox O2 Del Method O2 Flow Rate 99.4 F 112 H 19 112/60 96 Nasal Cannula 2 06/10/24 08:00 06/10/24 12:00 06/10/24 11:01 06/10/24 09:17 06/10/24 11:01 06/10/24 08:00 06/10/24 11:01 FiO2 4 06/07/24 00:00 Narrative Exam General: AAOx3, obese female, pt appears to be in some distress at this time, sittingup right HEENT: Moist mucous membranes, conjunctiva clear, EOMI, PERRLA, Cardiovascular: S1, S2, radial pulses +2 bilat, irregularly irregular rhythm, tachycardic Pulmonary: Wheezing heard in lungs bilat, congestion and cough GI: Bandages present, no ascites, mildly distended, tenderness upon palpitation in L quadrant Extremities: SCDs present, pitting edema in LE +2 bilat Neuro: AAOx3, no focal motor or sensory deficits in the UE or LE bilat Psych: Cooperative. Objective Labs 06/11/24 01:07 06/11/24 01:07 Labs: Laboratory Results - last 24 hr 06/09/24 06/10/24 06/10/24 11:05 05:18 05:28 WBC 20.9 H D RBC 3.10 L Hgb 8.2 L Hct 26.1 L MCV 84 MCH 26.5 MCHC 31.4 RDW Std Deviation 57.6 H Plt Count 246 Neut % (Auto) 69 Lymph % (Auto) 20 [place] % (Auto) 6 Eos % (Auto) 2 Baso % (Auto) 1 Neut # (Auto) 14.5 H Lymph # (Auto) 4.1 [place] # (Auto) 1.3 H Eos # (Auto) 0.5 Baso # (Auto) 0.2 Immature Gran # (Auto) 0.29 H Absolute Nucleated RBC 0.11 H Immature Gran % 1 H Nucleated RBC % 1 H PT 14.0 H INR 1.3 Sodium 134 L Potassium 4.8 D Chloride 97 L Carbon Dioxide 23.5 Anion Gap 14 BUN 51 H Creatinine 5.4 H* D Estim Creat Clear Calc 8.2 L eGFR 8 L* BUN/Creatinine Ratio 9 L Glucose 101 Calculated Osmolality 281 Calcium 9.9 Corrected Calcium 10.1 Magnesium 2.4 Total Bilirubin 0.6 AST 11 ALT < 7 L Alkaline Phosphatase 122 H Total Protein 7.3 Albumin 3.8 Globulin 3.5 Albumin/Globulin Ratio 1.1 L ABG Interpretation ABG results: 05/13/24 05/15/24 05/15/24 08:29 15:28 16:03 ABG pH 7.39 7.05 L* D 7.17 L* D ABG pCO2 31 L 63 H D 45 D ABG pO2 78 L 38 L* D 84 D ABG HCO3 19 L 18 L 16 L ABG O2 Saturation 96 59 L 96 ABG Base Excess -5 L -12 L -11 L VBG pH VBG pCO2 VBG pO2 VBG Base Excess 05/16/24 05/17/24 05/18/24 04:38 04:03 04:20 ABG pH 7.28 L D 7.38 D 7.49 H D ABG pCO2 34 D 28 L 30 L ABG pO2 96 85 66 L ABG HCO3 16 L 17 L 23 ABG O2 Saturation 98 97 94 ABG Base Excess -10 L -8 L 0 VBG pH VBG pCO2 VBG pO2 VBG Base Excess 05/19/24 05/20/24 05/21/24 09:05 06:05 22:35 ABG pH 7.30 L D 7.41 D ABG pCO2 49 H D 42 ABG pO2 63 L 63 L ABG HCO3 24 27 H ABG O2 Saturation 91 93 ABG Base Excess -3 2 VBG pH 7.31 L VBG pCO2 50 VBG pO2 39 VBG Base Excess -2 05/26/24 05/29/24 04:17 12:28 ABG pH 7.38 7.42 ABG pCO2 42 35 ABG pO2 81 L 67 L ABG HCO3 25 23 ABG O2 Saturation 97 95 ABG Base Excess 0 -2 VBG pH VBG pCO2 VBG pO2 VBG Base Excess Quality Measures Quality Measures none Advance care planning discussed with:: patient Assessment & Plan Assessment Current Active Medications: Generic Name Dose Route Start Last Admin Trade Name Freq PRN Reason Stop Dose Admin Acetaminophen 650 mg 06/09/24 14:11 Acetaminophen 325 Mg Tablet PO 07/09/24 14:10 Q6HR PRN Fever >101 and pain 1-3 Hydrocodone Bitart/Acetaminophen 1 tab 06/09/24 14:11 Hydrocodone/Apap 5/325 Tablet PO 06/14/24 14:10 Q4HR PRN PAIN SCALE 4-10(Mod-Sev Albuterol/Ipratropium 3 ml 05/27/24 18:08 06/10/24 03:36 Albuterol/Ipratropium (Duoneb) Rt Jimena 3 Ml Nebu INH 06/26/24 18:07 3 ml Q2HR PRN Administration SHORTNESS OF BREATH OR WHEEZE Amiodarone HCl 200 mg 05/29/24 15:00 06/10/24 08:28 Amiodarone Hcl 200 Mg Tablet PO 06/28/24 14:59 200 mg BID ANGELICA Administration Apixaban 5 mg 06/07/24 09:00 06/09/24 10:31 Apixaban 2.5 Mg Tablet PO 07/07/24 08:59 Not Given BID ANGELICA Benzocaine 1 lozenge 05/31/24 11:53 06/09/24 23:07 Benzocaine/Menthol 1 Lozenge PO 06/30/24 11:52 1 lozenge Q4HR PRN Administration Sore throat Dextrose 25 ml 05/24/24 15:43 Dextrose 50%-Water Inj 50 Ml Syringe IV 06/23/24 15:42 Q15MIN PRN BG 50-70 responsive npo pt Dextrose 50 ml 05/24/24 15:43 Dextrose 50%-Water Inj 50 Ml Syringe IV 06/23/24 15:42 Q15MIN PRN BG <50 OR BG <70 & pt unresponsive Dronabinol 5 mg 06/07/24 10:40 06/10/24 08:15 Dronabinol 2.5 Mg Capsule PO 07/07/24 10:39 5 mg BIDAC ANGELICA Administration Epoetin Chang 10,000 unit 06/10/24 14:00 Epoetin Chang-Epbx Inj 10,000 Unit/Ml Vial (Esrd) SC 06/10/24 14:01 X1 ONE Fluconazole 200 mg 06/08/24 09:00 06/10/24 08:14 Fluconazole 100 Mg Tablet PO 06/15/24 08:59 200 mg QDAY ANGELICA Administration Furosemide 40 mg 06/09/24 10:15 06/10/24 09:17 Furosemide Inj 10 Mg/Ml 4ml Vial IVP 07/09/24 10:14 Not Given QDAY ANGELICA Glucagon 1 mg 05/24/24 15:43 Glucagon Inj 1 Mg Vial IM Q15MIN PRN BG <70, and no IV access Guaifenesin 200 mg 06/10/24 08:30 06/10/24 09:20 Guaifenesin Syrup 200 Mg/10 Ml Udc PO 07/10/24 08:29 200 mg QID ANGELICA Administration Protocol Heparin Sodium (Porcine) 3,500 unit 06/07/24 18:06 06/08/24 12:07 Heparin Sod Inj 1000 Unit/Ml Vial 10 Ml INDWELLCAT 06/21/24 18:05 3,500 unit PRN PRN Administration DIALYSIS Albumin Human 25 gm in 100 mls @ 100 mls/hr 06/07/24 14:30 06/08/24 09:04 Albuminar-25 Ivpb IV 100 mls/hr PRN PRN Administration DIALYSIS Piperacillin/Tazobactam/Dextrose 2.25 gm in 50 mls @ 100 mls/hr 06/10/24 12:10 Zosyn IV 06/17/24 12:09 Q8HR ANGELICA Vancomycin/Sodium Chloride 200 mls @ 120 mls/hr 06/10/24 12:15 Vancomycin/Ns 1 Gm Ivpb IV 06/10/24 13:54 X1 ONE Insulin Glargine 12 unit 05/25/24 09:00 06/10/24 09:17 Insulin Glargine (Lantus) 5 Unit/0.05 Ml (Per 5 Units) SC 06/24/24 08:59 Not Given QDAY ANGELICA Insulin Human Lispro 0 unit 05/24/24 18:00 06/10/24 12:30 Insulin Lispro (Admelog) 1 Unit/0.01 Ml Unit SC 06/23/24 17:59 Not Given Q6HR [facility] Protocol Lidocaine 1 patch 05/30/24 09:16 06/01/24 19:01 Lidocaine 5% 1 Patch TOP 06/29/24 09:15 1 patch DAILY PRN Administration BACK PAIN Metoprolol Succinate 50 mg 06/09/24 21:05 06/10/24 08:29 Metoprolol Succinate Xl 25 Mg Tabcr PO 07/09/24 21:04 50 mg QDAY ANGELICA Administration Midodrine 10 mg 06/07/24 21:00 06/10/24 08:13 Midodrine 5 Mg Tablet PO 07/07/24 20:59 10 mg BID ANGELICA Administration Mirtazapine 15 mg 06/09/24 09:00 06/10/24 08:29 Mirtazapine 15 Mg Tablet PO 07/09/24 08:59 15 mg QDAY ANGELICA Administration Ondansetron HCl 4 mg 05/13/24 11:58 05/14/24 12:31 Ondansetron Inj 2 Mg/Ml Inj 2 Ml IV 06/12/24 11:57 4 mg Q6H PRN Administration NAUSEA OR VOMITING Protocol Pantoprazole Sodium 40 mg 05/15/24 21:00 06/10/24 08:13 Pantoprazole Inj 40 Mg Vial IVP 06/14/24 20:59 40 mg BID ANGELICA Administration Pharmacy Consult 1 each 05/16/24 10:27 Pharmacy Renal Dose Adjustment 1 Ea XX 06/15/24 10:26 PRN PRN CONSULT Pharmacy Consult 1 each 06/10/24 12:15 Vancomycin Pharmacy To Dose 1 Each Each IV 07/10/24 12:14 QDAY PRN CONSULT Polyethylene Glycol 17 gm 06/09/24 10:45 06/10/24 09:18 Polyethylene Glycol 17 Gm Packet PO 07/09/24 10:44 Not Given BID ANGELICA Sennosides 1 tab 06/09/24 10:45 06/10/24 08:28 Senna Tablet PO 07/09/24 10:44 1 tab QDAY ANGELICA Administration Protocol Sodium Chloride 3 ml 05/24/24 19:00 Sodium Chloride Rt Jimena 0.9% 3 Ml Nebu INH 06/23/24 18:59 PRN PRN SOLN Timolol Maleate 1 drop 05/28/24 18:15 06/10/24 09:21 Timolol Op Jimena 0.5% 5 Ml Btl BOTH EYES 06/27/24 18:14 1 drop DAILY ANGELICA Administration Plan Assessment Ms. Castellanos is a 69-year-old female with past medical history significant for hypertension, diabetes and history of gastric ulcers who presented to the ED on 05/13/2024 after she was found unconscious on the floor. Per chart reviewing prior to this unconsciousness patient was having abdominal pain and generalized weakness with diarrhea and shortness of breath for 2 days. Patient was admitted to the hospital for treatment and management of sepsis secondary to pneumonia. Patient was given 1 L normal saline and started on ceftriaxone and azithromycin. patient underwent ex lap surgery for perforated gastric ulcer. Patient remained intubated postop and was upgraded to the ICU. Patient continues to be on dialysis after downgrade, has BALAJI and accordion drain intact, completed bowel rest, was started on dysphagia 1 diet, surgery following case closely, will continue to monitor. #New onset A-fib with RVR, improving New onset of Afib, likely related to septic shock requiring pressor support and increased demand from perforated ulcer complicated by abdominal abscesses Pt appears to still be in A-fib, rate controlled, 90s to mid 100s Previous EKG shows a-fib w/RVR CHADVASC: 5 Pts 7.2 % stroke risk per year HAS-BLED score: 3, high risk of major bleeding Pt's HR elevated in the 110s/120s overnight PE want to continue with metoprolol, however we do not know if patient will tolerate in addition to dialysis We may need to give metoprolol on days without dialysis or later in the day after dialysis, will let primary team decide It appears that the patient did not go for dialysis catheter exchange, unsure if she will go again for catheter exchange, patient also to go to dialysis today Will resume heparin drip at this time b/c pt to go abscess drainage on Wednesday Patient still is in the 110s 120s, seems like she is going that way due to uncontrolled pain Plan: ?Continue with Oral Amio 200 mg BID ?Continue with metoprolol XL 50 ?Continue with heparin drip #Acute exacerbation of HFpEF #HFpEF EF 55 to 60% #History of primary hypertension -Echo 05/16/2024 -estimated EF of 55 to 60%, stage I diastolic dysfunction noted, Moderate to severe posterior MAC Pt has new onset of ESRD requiring HD, requiring midodrine 10 mg QID to tolerate HD Not resuming home amlodipine at this time due to patient being A-fib and blood pressure eventually be controlled with beta-christian We recommend to give midodrine 5 to 10 mg 15 to 30 minutes before dialysis, can give additional 2.5 to 5 mg after dialysis as long as 3 hours after predialysis dose Half-life of midodrine is 9 to 10 hours and patient with CKD something to keep in mind Plan: ?Resume GDMT as able, metoprolol on board right now, as above ?Fluid restriction ?Daily weights ?Strict ins and outs ?Keep potassium and magnesium above 4 and 2 respectively #Hx of Diabetes Mellitus type II Most recent A1c 05/21/2024: 6.2 Plan: Management by primary team #Perforated gastric ulcer #Pneumoperitoneum #Peritonitis secondary to perforated gastric ulcer #Abdominal Abscess, s/p percutaneous drainage x3 Patient found to have tender abdomen, rigidity in the epigastrium, chest x-ray showed elevation of hemidiaphragm, CT abdomen showed pneumoperitoneum, concern for perforated viscus, general surgeon Dr. Santana was consulted for emergency laparotomy and possible repair of perforated gastric ulcer. Repeat CT abd/pel on 05/20 revealed Pneumoperitoneum, orogastric tube in the stomach, mild free fluid adjacent to the stomach and anterior to the pancreas. s/p Exploratory laparotomy & repair of perforated gastric ulcer - 05/15. 06/01/24: Overnight there was concern of wound dehiscence. Discussed with general surgeon per surgery superior aspect of the wound was dehiscent after removal of aixa.Surgery removal of BALAJI drain on 06/01. Repeat CT on 06/01- More pronounced fluid collection in the left abdomen below the spleen, 8.9 x 6.4cm, free fluid in the abdomen and pelvis, and Ascites -Abscess culture from 05/25 grew edna albicans ?Repeat CT abdomen pelvis shows abscess collection lower left abdomen has markedly decreased in size and the accordion drains have no output this morning Repeat CT A/P 06/10/2024 show multiple abscess, will need to drain Plan: Management by primary hospitalist team, drainage on wednesday, will stop heparin drip then #Acute blood loss anemia, stable Likely related to perforated ulcer Hgb stable ~10 Plan: Management by primary hospitalist team #Acute tubular necrosis, requiring hemodialysis #Acute Hypoxic Respiratory failure #Acute Upper GI bleed - stable #Hyperlipidemia #Acute blood loss anemia, stable #Acute encephalopathy-resolved #Septic Shock - resolved #Hypoosmolar Hyponatremia, resolved Above managed by primary hospitalist team Patient seen and care discussed with my attending physician, Dr. Susan Mathews, PGY-1 Attending Provider Attestation/Addendum I have personally seen and examined the patient separately on the above date of service and discussed the plan of care with the resident. I reviewed the resident Dr. Hernandes consultation progress note and agree with the resident findings and plan in the note above and have also edited the documentation to reflect my findings and plan. Jalen Davis M.D. Interventional Cardiology
[2024-06-10] MEDS: PIPER/TAZO 2.25 GM 2.25 GM/50 ML BAG IV ×2 (13:07→21:00)
[2024-06-10] MEDS: VANCOMYCIN/NS 1 GM IVPB 200 ML IV (13:33)
--- NOTE | 2024-06-10 14:00 | PD.IMPROG ---
Documentation for date of: 06/10/24 Subjective Subjective Interval history: Spoke with the RN Very poor p.o. intake Placement of a PEG tube is usually contraindicated any recent surgery However I will discuss the case with the attending surgeon May be an attempt should be made for PEG placement so we can supplement her nutrition for her to have adequate calories and protein Exam Vital Signs Temp Pulse Resp BP Pulse Ox O2 Del Method O2 Flow Rate 99.4 F 112 H 19 112/60 96 Nasal Cannula 2 06/10/24 08:00 06/10/24 12:00 06/10/24 11:01 06/10/24 09:17 06/10/24 11:01 06/10/24 08:00 06/10/24 11:01 FiO2 4 06/07/24 00:00 Constitutional Comments: Chronically ill Routine Respiratory Exam Comments: Normal to auscultation Routine Abdominal Exam Comments: Positive bowel sounds Objective Labs 06/10/24 05:28 06/10/24 05:28 Labs: Laboratory Results - last 24 hr 06/10/24 06/10/24 05:18 05:28 WBC 20.9 H D RBC 3.10 L Hgb 8.2 L Hct 26.1 L MCV 84 MCH 26.5 MCHC 31.4 RDW Std Deviation 57.6 H Plt Count 246 Neut % (Auto) 69 Lymph % (Auto) 20 [place] % (Auto) 6 Eos % (Auto) 2 Baso % (Auto) 1 Neut # (Auto) 14.5 H Lymph # (Auto) 4.1 [place] # (Auto) 1.3 H Eos # (Auto) 0.5 Baso # (Auto) 0.2 Immature Gran # (Auto) 0.29 H Absolute Nucleated RBC 0.11 H Immature Gran % 1 H Nucleated RBC % 1 H Sodium 134 L Potassium 4.8 D Chloride 97 L Carbon Dioxide 23.5 Anion Gap 14 BUN 51 H Creatinine 5.4 H* D Estim Creat Clear Calc 8.2 L eGFR 8 L* BUN/Creatinine Ratio 9 L Glucose 101 Calculated Osmolality 281 Calcium 9.9 Corrected Calcium 10.1 Magnesium 2.4 Total Bilirubin 0.6 AST 11 ALT < 7 L Alkaline Phosphatase 122 H Total Protein 7.3 Albumin 3.8 Globulin 3.5 Albumin/Globulin Ratio 1.1 L Impressions Impression: # Poor p.o. intake Will discuss PEG placement with the operating surgeon # Gastric perforation status post exploratory laparotomy # Intra-abdominal abscesses requiring IR drainage # End-stage renal disease on hemodialysis ABG Interpretation ABG results: 05/13/24 05/15/24 05/15/24 08:29 15:28 16:03 ABG pH 7.39 7.05 L* D 7.17 L* D ABG pCO2 31 L 63 H D 45 D ABG pO2 78 L 38 L* D 84 D ABG HCO3 19 L 18 L 16 L ABG O2 Saturation 96 59 L 96 ABG Base Excess -5 L -12 L -11 L VBG pH VBG pCO2 VBG pO2 VBG Base Excess 05/16/24 05/17/24 05/18/24 04:38 04:03 04:20 ABG pH 7.28 L D 7.38 D 7.49 H D ABG pCO2 34 D 28 L 30 L ABG pO2 96 85 66 L ABG HCO3 16 L 17 L 23 ABG O2 Saturation 98 97 94 ABG Base Excess -10 L -8 L 0 VBG pH VBG pCO2 VBG pO2 VBG Base Excess 05/19/24 05/20/24 05/21/24 09:05 06:05 22:35 ABG pH 7.30 L D 7.41 D ABG pCO2 49 H D 42 ABG pO2 63 L 63 L ABG HCO3 24 27 H ABG O2 Saturation 91 93 ABG Base Excess -3 2 VBG pH 7.31 L VBG pCO2 50 VBG pO2 39 VBG Base Excess -2 05/26/24 05/29/24 04:17 12:28 ABG pH 7.38 7.42 ABG pCO2 42 35 ABG pO2 81 L 67 L ABG HCO3 25 23 ABG O2 Saturation 97 95 ABG Base Excess 0 -2 VBG pH VBG pCO2 VBG pO2 VBG Base Excess Assessment & Plan A&P Narrative abd abscess, stain neg. later grew c albicans so on flucon now here since 05/13.usual rx for most things is 7d. left on merrem thru weekend but collection in abd eventually grew a yeast, so ok for another 7d rx will see again if requested Time Spent With Patient Time: Total time spent is greater than 50% in coordination of care (as documented) at patient's floor/unit and/or counseling patient:
[2024-06-10] MEDS: MICAFUNGIN SODIUM INJ 100 MG in SODIUM CHLORIDE 0.9% 100 ML IV (15:42)
[2024-06-10 15:53] LABS: Partial Thromboplastin Time 36.7 Seconds (22.0-36.0)
[2024-06-10] MEDS: HEPARIN SOD INJ 5000 UNIT/ML VIAL 4000 UNIT IV (16:21)
[2024-06-10] MEDS: Heparin/D5w 25K 250 ML Ivpb 25,000 UNIT/250 ML BAG 8.709 UNIT IV (16:22)
[2024-06-10] MEDS: EPOETIN ALFA-EPBX INJ 40,000 UNIT/ML VIAL (ESRD) 10000 UNIT SC (17:06)
--- NOTE | 2024-06-10 17:15 | PC.NURSE ---
bp trending down, will admin PRN Albumin per md orders and cont. to monitor
[2024-06-10] MEDS: ALBUMIN HUMAN 25% IVPB 25 GM/100 ML BTL IV (17:16)
--- NOTE | 2024-06-10 17:32 | PC.NURSE ---
bp cont. to trend low, UF goal lowered to 1L as tolerated will cont. to monitor
--- NOTE | 2024-06-10 18:31 | PC.NURSE ---
pt tolerating tx, UF goal to 1.3L as tolerated, will monitor
--- NOTE | 2024-06-10 19:01 | PC.NURSE ---
pt tolerating tx, UF goal to 1.5L as tolerated will monitor
[2024-06-10] MEDS: HEPARIN SOD INJ 1000 UNIT/ML VIAL 10 ML 3500 UNIT INDWELLCAT (20:38)
[2024-06-10] MEDS: SODIUM CHLORIDE RT 10% 15 ML NEBU 5 ML INH (21:18)
[2024-06-10] MEDS: HYDROmorphone INJ 2 MG/ML VIAL 0.25 MG IVP (21:52)
[2024-06-11] VITALS (13 sets, daily range): BP systolic 91–111; BP diastolic 47–60; PULSE 90–129; RESP 18–25; TEMP 36.2–37.2; O2SAT 93–97; BMI 35.9
--- NOTE | 2024-06-11 | PD.VPROG1 ---
Telemedicine visit statement This visit was conducted with the use of phone visit was obtained on 06/11/24 at 0000. Documentation for date of: 06/11/24 Subjective Subjective Interval history: Patient is in telemetry today, no changes or overnight events noted. Virtual exam Vital Signs Temp Pulse Resp BP Pulse Ox O2 Del Method O2 Flow Rate 98.7 F 111 H 21 H 121/73 95 Nasal Cannula 2 06/10/24 23:55 06/10/24 23:55 06/10/24 23:55 06/10/24 23:55 06/10/24 23:55 06/10/24 23:55 06/10/24 21:13 FiO2 4 06/10/24 16:00 Objective Labs 06/10/24 05:28 06/10/24 05:28 Labs: Laboratory Results - last 24 hr 06/10/24 06/10/24 06/10/24 05:18 05:28 14:49 WBC 20.9 H D RBC 3.10 L Hgb 8.2 L Hct 26.1 L MCV 84 MCH 26.5 MCHC 31.4 RDW Std Deviation 57.6 H Plt Count 246 Neut % (Auto) 69 Lymph % (Auto) 20 [place] % (Auto) 6 Eos % (Auto) 2 Baso % (Auto) 1 Neut # (Auto) 14.5 H Lymph # (Auto) 4.1 [place] # (Auto) 1.3 H Eos # (Auto) 0.5 Baso # (Auto) 0.2 Immature Gran # (Auto) 0.29 H Absolute Nucleated RBC 0.11 H Immature Gran % 1 H Nucleated RBC % 1 H APTT 36.7 H Sodium 134 L Potassium 4.8 D Chloride 97 L Carbon Dioxide 23.5 Anion Gap 14 BUN 51 H Creatinine 5.4 H* D Estim Creat Clear Calc 8.2 L eGFR 8 L* BUN/Creatinine Ratio 9 L Glucose 101 Calculated Osmolality 281 Calcium 9.9 Corrected Calcium 10.1 Magnesium 2.4 Total Bilirubin 0.6 AST 11 ALT < 7 L Alkaline Phosphatase 122 H Total Protein 7.3 Albumin 3.8 Globulin 3.5 Albumin/Globulin Ratio 1.1 L ABG Interpretation ABG results: 05/13/24 05/15/24 05/15/24 08:29 15:28 16:03 ABG pH 7.39 7.05 L* D 7.17 L* D ABG pCO2 31 L 63 H D 45 D ABG pO2 78 L 38 L* D 84 D ABG HCO3 19 L 18 L 16 L ABG O2 Saturation 96 59 L 96 ABG Base Excess -5 L -12 L -11 L VBG pH VBG pCO2 VBG pO2 VBG Base Excess 05/16/24 05/17/24 05/18/24 04:38 04:03 04:20 ABG pH 7.28 L D 7.38 D 7.49 H D ABG pCO2 34 D 28 L 30 L ABG pO2 96 85 66 L ABG HCO3 16 L 17 L 23 ABG O2 Saturation 98 97 94 ABG Base Excess -10 L -8 L 0 VBG pH VBG pCO2 VBG pO2 VBG Base Excess 05/19/24 05/20/24 05/21/24 09:05 06:05 22:35 ABG pH 7.30 L D 7.41 D ABG pCO2 49 H D 42 ABG pO2 63 L 63 L ABG HCO3 24 27 H ABG O2 Saturation 91 93 ABG Base Excess -3 2 VBG pH 7.31 L VBG pCO2 50 VBG pO2 39 VBG Base Excess -2 05/26/24 05/29/24 04:17 12:28 ABG pH 7.38 7.42 ABG pCO2 42 35 ABG pO2 81 L 67 L ABG HCO3 25 23 ABG O2 Saturation 97 95 ABG Base Excess 0 -2 VBG pH VBG pCO2 VBG pO2 VBG Base Excess Assessment & Plan Assessment 69-year-old female with past medical history of CKD stage III, prediabetes, hypertension who was found unconscious in her room. As well as diarrhea and shortness of breath. Admitted for sepsis secondary to pneumonia and acute metabolic encephalopathy #Acute metabolic encephalopathy- currently in telemetry, significant improvement noted, close to baseline #Generalized weakness --Brain MRI with MRA shows significant stenoses in posterior cerebral artery, no acute infarction noted -Will continue with the current management as per primary team Continue with Physical therapy as she tolerates.
[2024-06-11 00:04] LABS: Partial Thromboplastin Time > 139.0 Seconds (22.0-36.0)
[2024-06-11 01:17] LABS: Lactate (Lactic Acid) 1.8 mMol/L (0.4-2.0)
[2024-06-11 01:23] LABS: Basophils # (Auto) 0.2 Thou/mm3 (0.0-0.2); Basophils % (Auto) 1 % (0-2.5); Eosinophils # (Auto) 0.3 Thou/mm3 (0.0-0.5); Eosinophils % (Auto) 1 % (0-10); Hematocrit 24.8 % (36.0-46.0); Immature Granulocytes % (Auto) 1 % (0-0); Immature Granulocytes Auto 0.34 Thou/mm3 (0.00-0.00); Lymphocytes # (Auto) 4.4 Thou/mm3 (1.0-4.8); Lymphocytes % (Auto) 15 % (10-50); Mean Corpuscular HGB Conc 31.9 g/dl (31.0-37.0); Mean Corpuscular Hemoglobin 26.6 pg (25.0-35.0); Mean Corpuscular Volume 84 fL (80-100); Monocytes # (Auto) 1.8 Thou/mm3 (0.0-0.8); Monocytes % (Auto) 6 % (0-12); Neutrophils % (Auto) 76 % (37-80); Nucleated Red Blood Cell # 0.08 Thou/mm3 (0.00-0.00); Nucleated Red Blood Cell % 0 /100 WBC (0); Platelet Count 388 Thou/mm3 (140-440); RDW Standard Deviation 57.4 fL (36.4-46.3); Red Blood Count 2.97 Miln/mm3 (4.00-5.20); White Blood Count 30.1 Thou/mm3 (3.6-11.0)
[2024-06-11 01:37] LABS: Hemoglobin 7.9 g/dL (12.0-16.0)
[2024-06-11 01:44] LABS: Anion Gap 15 (7-16); BUN/Creatinine Ratio 9 Ratio (12-20); Blood Urea Nitrogen 48 mg/dL (9-23); Calcium 9.6 mg/dL (8.3-10.6); Calcium (Corrected) 9.6 mg/dL (8.5-10.1); Chloride 99 mMol/L (98-107); Creatinine (Component) 5.4 mg/dL (0.6-1.3); Estimated Creatinine Clearance 8.2 mL/min (>60); Glucose 112 mg/dL (74-106); Osmolality,Calculated 287 (275-295); Phosphorous 6.5 mg/dL (2.4-5.1); Potassium 4.9 mMol/L (3.4-5.1); Procalcitonin 3.73 ng/ml (0.0-0.49); Sodium 137 mMol/L (136-145); eGFR 8 See Note
[2024-06-11] MEDS: PIPER/TAZO 2.25 GM 2.25 GM/50 ML BAG IV ×3 (05:02→21:06)
[2024-06-11] MEDS: HYDROmorphone INJ 2 MG/ML VIAL 0.25 MG IVP (05:17)
[2024-06-11] MEDS: guaiFENesin SYRUP 200 MG/10 ML UDC PO ×4 (05:17→21:05)
[2024-06-11 05:59] LABS: Basophils # (Auto) 0.2 Thou/mm3 (0.0-0.2); Basophils % (Auto) 1 % (0-2.5); Eosinophils # (Auto) 0.3 Thou/mm3 (0.0-0.5); Eosinophils % (Auto) 1 % (0-10); Immature Granulocytes % (Auto) 1 % (0-0); Immature Granulocytes Auto 0.28 Thou/mm3 (0.00-0.00); Lymphocytes # (Auto) 4.9 Thou/mm3 (1.0-4.8); Lymphocytes % (Auto) 17 % (10-50); Mean Corpuscular HGB Conc 31.2 g/dl (31.0-37.0); Mean Corpuscular Hemoglobin 26.4 pg (25.0-35.0); Mean Corpuscular Volume 85 fL (80-100); Monocytes % (Auto) 7 % (0-12); Neutrophils % (Auto) 73 % (37-80); Nucleated Red Blood Cell # 0.07 Thou/mm3 (0.00-0.00); Nucleated Red Blood Cell % 0 /100 WBC (0); Platelet Count 261 Thou/mm3 (140-440); RDW Standard Deviation 57.3 fL (36.4-46.3); Red Blood Count 2.95 Miln/mm3 (4.00-5.20); White Blood Count 28.7 Thou/mm3 (3.6-11.0)
[2024-06-11 06:08] LABS: Hemoglobin 7.8 g/dL (12.0-16.0)
[2024-06-11 06:21] LABS: Alanine Aminotransferase < 7 U/L (10-49); Albumin/Globulin Ratio 1.1 (1.2-2.2); Alkaline Phosphatase 120 U/L (46-116); Anion Gap 16 (7-16); Aspartate Amino Transferase 12 U/L (0-34); BUN/Creatinine Ratio 9 Ratio (12-20); Blood Urea Nitrogen 53 mg/dL (9-23); Calcium 9.6 mg/dL (8.3-10.6); Calcium (Corrected) 9.6 mg/dL (8.5-10.1); Chloride 96 mMol/L (98-107); Creatinine (Component) 5.6 mg/dL (0.6-1.3); Estimated Creatinine Clearance 8.2 mL/min (>60); Globulin 3.6 gm/dL (2.3-3.5); Glucose 122 mg/dL (74-106); Osmolality,Calculated 283 (275-295); Potassium 4.8 mMol/L (3.4-5.1); Sodium 134 mMol/L (136-145); Total Protein 7.6 gm/dL (5.7-8.2); Vancomycin,Random 15.1 mcg/mL; eGFR 8 See Note
[2024-06-11 08:38] LABS: Partial Thromboplastin Time 67.3 Seconds (22.0-36.0)
--- NOTE | 2024-06-11 09:13 | PC.NURSE ---
Heparin gtt rate remained the same per protocol. Stat PTT ordered for 1302.
[2024-06-11] MEDS: MIDODRINE 5 MG TABLET 10 MG PO ×2 (09:15→21:05)
[2024-06-11] MEDS: droNABinol 2.5 MG CAPSULE 5 MG PO ×2 (09:24→16:22)
--- NOTE | 2024-06-11 09:39 | PC.NURSE ---
Per Dr. Siegel hold 0900 amiodarone dose related to blood pressure of 96/53. Dose held.
[2024-06-11] MEDS: MICAFUNGIN SODIUM INJ 100 MG in SODIUM CHLORIDE 0.9% 100 ML IV (09:45)
[2024-06-11] MEDS: PANTOPRAZOLE INJ 40 MG VIAL IVP ×2 (09:47→21:06)
[2024-06-11] MEDS: TIMOLOL OP SOL 0.5% 5 ML BTL 1 DROP BOTH EYES (09:49)
[2024-06-11] MEDS: MIRTAZAPINE 15 MG TABLET PO (09:52)
[2024-06-11] MEDS: FLUCONAZOLE 100 MG TABLET 400 MG PO (09:52)
[2024-06-11] MEDS: SENNA TABLET 1 TAB PO (09:52)
[2024-06-11] MEDS: POLYETHYLENE GLYCOL 17 GM PACKET PO ×2 (09:52→21:06)
[2024-06-11] MEDS: INSULIN GLARGINE (Lantus) 5 UNIT/0.05 ML (PER 5 UNITS) 12 UNIT SC (10:05)
[2024-06-11 11:10] LABS: Magnesium 2.4 mg/dL (1.6-2.6)
--- NOTE | 2024-06-11 12:41 | PD.RESPRO ---
Documentation for date of: 06/11/24 Subjective Subjective Interval history: 06/11/2024: Patient examined at bedside today. Telemetry reviewed and patient seems to be in 120s and 130s still in A-fib. Patient reports that she still experiencing some pain in her abdomen. Patient is likely going in higher heart rate because of uncontrolled pain, drainage to be done tomorrow. Patient's white count is 29 today, was started on Zosyn and Vanco. Patient's BUN/creatinine 53 and 5.6 respectively, will do dialysis tomorrow, dialysis yesterday at 1.5 L removed. Will continue to to try to control patient's pain and patient will need drainage with a goal of procedure to be tomorrow. Will add metoprolol as needed if patient's heart rate goes to the 150s. Exam Vital Signs Temp Pulse Resp BP Pulse Ox O2 Del Method O2 Flow Rate 97.2 F 97 18 96/53 L 95 Nasal Cannula 1 06/11/24 08:00 06/11/24 09:42 06/11/24 08:00 06/11/24 09:42 06/11/24 08:00 06/11/24 08:00 06/11/24 08:00 FiO2 4 06/10/24 16:00 Narrative Exam General: AAOx3, obese female, pt appears to be in some distress at this time, sittingup right HEENT: Moist mucous membranes, conjunctiva clear, EOMI, PERRLA, Cardiovascular: S1, S2, radial pulses +2 bilat, irregularly irregular rhythm, tachycardic Pulmonary: Wheezing heard in lungs bilat, congestion and cough GI: Bandages present, no ascites, mildly distended, tenderness upon palpitation in L quadrant Extremities: SCDs present, pitting edema in LE +2 bilat Neuro: AAOx3, no focal motor or sensory deficits in the UE or LE bilat Psych: Cooperative. Objective Labs 06/11/24 05:18 06/11/24 05:18 Labs: Laboratory Results - last 24 hr 06/10/24 06/10/24 06/11/24 14:49 22:43 01:07 WBC 30.1 H D RBC 2.97 L Hgb 7.9 L Hct 24.8 L MCV 84 MCH 26.6 MCHC 31.9 RDW Std Deviation 57.4 H Plt Count 388 D Neut % (Auto) 76 Lymph % (Auto) 15 [place] % (Auto) 6 Eos % (Auto) 1 Baso % (Auto) 1 Neut # (Auto) 23.0 H Lymph # (Auto) 4.4 [place] # (Auto) 1.8 H Eos # (Auto) 0.3 Baso # (Auto) 0.2 Immature Gran # (Auto) 0.34 H Absolute Nucleated RBC 0.08 H Immature Gran % 1 H Nucleated RBC % 0 APTT 36.7 H > 139.0 H* D Sodium 137 Potassium 4.9 Chloride 99 Carbon Dioxide 23.0 Anion Gap 15 BUN 48 H Creatinine 5.4 H* Estim Creat Clear Calc 8.2 L eGFR 8 L* BUN/Creatinine Ratio 9 L Glucose 112 H Calculated Osmolality 287 Lactic Acid 1.8 Calcium 9.6 Corrected Calcium 9.6 Phosphorus 6.5 H Magnesium Total Bilirubin AST ALT Alkaline Phosphatase Total Protein Albumin 4.0 Globulin Albumin/Globulin Ratio Procalcitonin 3.73 H Random Vancomycin 06/11/24 06/11/24 05:18 07:20 WBC 28.7 H RBC 2.95 L Hgb 7.8 L Hct 25.0 L MCV 85 MCH 26.4 MCHC 31.2 RDW Std Deviation 57.3 H Plt Count 261 D Neut % (Auto) 73 Lymph % (Auto) 17 [place] % (Auto) 7 Eos % (Auto) 1 Baso % (Auto) 1 Neut # (Auto) 21.0 H Lymph # (Auto) 4.9 H [place] # (Auto) 2.0 H Eos # (Auto) 0.3 Baso # (Auto) 0.2 Immature Gran # (Auto) 0.28 H Absolute Nucleated RBC 0.07 H Immature Gran % 1 H Nucleated RBC % 0 APTT 67.3 H D Sodium 134 L Potassium 4.8 Chloride 96 L Carbon Dioxide 22.0 Anion Gap 16 BUN 53 H Creatinine 5.6 H* Estim Creat Clear Calc 8.2 L eGFR 8 L* BUN/Creatinine Ratio 9 L Glucose 122 H Calculated Osmolality 283 Lactic Acid Calcium 9.6 Corrected Calcium 9.6 Phosphorus Magnesium 2.4 Total Bilirubin 1.0 AST 12 ALT < 7 L Alkaline Phosphatase 120 H Total Protein 7.6 Albumin 4.0 Globulin 3.6 H Albumin/Globulin Ratio 1.1 L Procalcitonin Random Vancomycin 15.1 ABG Interpretation ABG results: 05/13/24 05/15/24 05/15/24 08:29 15:28 16:03 ABG pH 7.39 7.05 L* D 7.17 L* D ABG pCO2 31 L 63 H D 45 D ABG pO2 78 L 38 L* D 84 D ABG HCO3 19 L 18 L 16 L ABG O2 Saturation 96 59 L 96 ABG Base Excess -5 L -12 L -11 L VBG pH VBG pCO2 VBG pO2 VBG Base Excess 05/16/24 05/17/24 05/18/24 04:38 04:03 04:20 ABG pH 7.28 L D 7.38 D 7.49 H D ABG pCO2 34 D 28 L 30 L ABG pO2 96 85 66 L ABG HCO3 16 L 17 L 23 ABG O2 Saturation 98 97 94 ABG Base Excess -10 L -8 L 0 VBG pH VBG pCO2 VBG pO2 VBG Base Excess 05/19/24 05/20/24 05/21/24 09:05 06:05 22:35 ABG pH 7.30 L D 7.41 D ABG pCO2 49 H D 42 ABG pO2 63 L 63 L ABG HCO3 24 27 H ABG O2 Saturation 91 93 ABG Base Excess -3 2 VBG pH 7.31 L VBG pCO2 50 VBG pO2 39 VBG Base Excess -2 05/26/24 05/29/24 04:17 12:28 ABG pH 7.38 7.42 ABG pCO2 42 35 ABG pO2 81 L 67 L ABG HCO3 25 23 ABG O2 Saturation 97 95 ABG Base Excess 0 -2 VBG pH VBG pCO2 VBG pO2 VBG Base Excess Quality Measures Quality Measures none Advance care planning discussed with:: patient Assessment & Plan Assessment Current Active Medications: Generic Name Dose Route Start Last Admin Trade Name Freq PRN Reason Stop Dose Admin Acetaminophen 650 mg 06/09/24 14:11 Acetaminophen 325 Mg Tablet PO 07/09/24 14:10 Q6HR PRN Fever >101 and pain 1-3 Hydrocodone Bitart/Acetaminophen 1 tab 06/09/24 14:11 Hydrocodone/Apap 5/325 Tablet PO 06/14/24 14:10 Q4HR PRN PAIN SCALE 4-10(Mod-Sev Albuterol/Ipratropium 3 ml 05/27/24 18:08 06/10/24 21:12 Albuterol/Ipratropium (Duoneb) Rt Jimena 3 Ml Nebu INH 06/26/24 18:07 3 ml Q2HR PRN Administration SHORTNESS OF BREATH OR WHEEZE Amiodarone HCl 200 mg 05/29/24 15:00 06/11/24 09:39 Amiodarone Hcl 200 Mg Tablet PO 06/28/24 14:59 Not Given BID ANGELICA Apixaban 5 mg 06/07/24 09:00 06/09/24 10:31 Apixaban 2.5 Mg Tablet PO 07/07/24 08:59 Not Given BID ANGELICA Benzocaine 1 lozenge 05/31/24 11:53 06/09/24 23:07 Benzocaine/Menthol 1 Lozenge PO 06/30/24 11:52 1 lozenge Q4HR PRN Administration Sore throat Dextrose 25 ml 05/24/24 15:43 Dextrose 50%-Water Inj 50 Ml Syringe IV 06/23/24 15:42 Q15MIN PRN BG 50-70 responsive npo pt Dextrose 50 ml 05/24/24 15:43 Dextrose 50%-Water Inj 50 Ml Syringe IV 06/23/24 15:42 Q15MIN PRN BG <50 OR BG <70 & pt unresponsive Dronabinol 5 mg 06/07/24 10:40 06/11/24 09:24 Dronabinol 2.5 Mg Capsule PO 07/07/24 10:39 5 mg BIDAC ANGELICA Administration Fluconazole 400 mg 06/11/24 09:00 06/11/24 09:52 Fluconazole 100 Mg Tablet PO 06/18/24 08:59 400 mg QDAY ANGELICA Administration Furosemide 40 mg 06/09/24 10:15 06/11/24 09:42 Furosemide Inj 10 Mg/Ml 4ml Vial IVP 07/09/24 10:14 Not Given QDAY ANGELICA Glucagon 1 mg 05/24/24 15:43 Glucagon Inj 1 Mg Vial IM Q15MIN PRN BG <70, and no IV access Guaifenesin 200 mg 06/10/24 08:30 06/11/24 12:21 Guaifenesin Syrup 200 Mg/10 Ml Udc PO 07/10/24 08:29 200 mg QID ANGELICA Administration Protocol Heparin Sodium (Porcine) 3,500 unit 06/07/24 18:06 06/10/24 20:38 Heparin Sod Inj 1000 Unit/Ml Vial 10 Ml INDWELLCAT 06/21/24 18:05 3,500 unit PRN PRN Administration DIALYSIS Piperacillin/Tazobactam/Dextrose 2.25 gm in 50 mls @ 100 mls/hr 06/10/24 12:10 06/11/24 05:02 Zosyn IV 06/17/24 12:09 100 mls/hr Q8HR ANGELICA Administration Heparin Sodium/Dextrose 25,000 unit in 250 mls @ 8.709 mls/hr 06/10/24 16:15 06/11/24 01:06 Heparin In D5w Ivpb IV 06/12/24 16:14 9 units/kg/hr .Q24H ANGELICA 6.532 mls/hr Titration Protocol 12 UNITS/KG/HR Micafungin Sodium 100 mg/ 100 mls @ 100 mls/hr 06/10/24 13:56 06/11/24 09:45 Sodium Chloride IV 06/25/24 13:55 100 mls/hr QDAY ANGELICA Administration Insulin Glargine 12 unit 05/25/24 09:00 06/11/24 10:05 Insulin Glargine (Lantus) 5 Unit/0.05 Ml (Per 5 Units) SC 06/24/24 08:59 12 unit QDAY ANGELICA Administration Insulin Human Lispro 0 unit 05/24/24 18:00 06/11/24 11:13 Insulin Lispro (Admelog) 1 Unit/0.01 Ml Unit SC 06/23/24 17:59 Not Given Q6HR [facility] Protocol Lidocaine 1 patch 05/30/24 09:16 06/01/24 19:01 Lidocaine 5% 1 Patch TOP 06/29/24 09:15 1 patch DAILY PRN Administration BACK PAIN Metoprolol Succinate 50 mg 06/09/24 21:05 06/11/24 09:32 Metoprolol Succinate Xl 25 Mg Tabcr PO 07/09/24 21:04 Not Given QDAY ANGELICA Midodrine 10 mg 06/07/24 21:00 06/11/24 09:15 Midodrine 5 Mg Tablet PO 07/07/24 20:59 10 mg BID ANGELICA Administration Mirtazapine 15 mg 06/09/24 09:00 06/11/24 09:52 Mirtazapine 15 Mg Tablet PO 07/09/24 08:59 15 mg QDAY ANGELICA Administration Ondansetron HCl 4 mg 05/13/24 11:58 05/14/24 12:31 Ondansetron Inj 2 Mg/Ml Inj 2 Ml IV 06/12/24 11:57 4 mg Q6H PRN Administration NAUSEA OR VOMITING Protocol Pantoprazole Sodium 40 mg 05/15/24 21:00 06/11/24 09:47 Pantoprazole Inj 40 Mg Vial IVP 06/14/24 20:59 40 mg BID ANGELICA Administration Pharmacy Consult 1 each 05/16/24 10:27 Pharmacy Renal Dose Adjustment 1 Ea XX 06/15/24 10:26 PRN PRN CONSULT Pharmacy Consult 1 each 06/10/24 12:15 Vancomycin Pharmacy To Dose 1 Each Each IV 07/10/24 12:14 QDAY PRN CONSULT Polyethylene Glycol 17 gm 06/09/24 10:45 06/11/24 09:52 Polyethylene Glycol 17 Gm Packet PO 07/09/24 10:44 17 gm BID ANGELICA Administration Sennosides 1 tab 06/09/24 10:45 06/11/24 09:52 Senna Tablet PO 07/09/24 10:44 1 tab QDAY ANGELICA Administration Protocol Sodium Chloride 3 ml 05/24/24 19:00 Sodium Chloride Rt Jimena 0.9% 3 Ml Nebu INH 06/23/24 18:59 PRN PRN SOLN Timolol Maleate 1 drop 05/28/24 18:15 06/11/24 09:49 Timolol Op Jimena 0.5% 5 Ml Btl BOTH EYES 06/27/24 18:14 1 drop DAILY ANGELICA Administration Plan Assessment Ms. Castellanos is a 69-year-old female with past medical history significant for hypertension, diabetes and history of gastric ulcers who presented to the ED on 05/13/2024 after she was found unconscious on the floor. Per chart reviewing prior to this unconsciousness patient was having abdominal pain and generalized weakness with diarrhea and shortness of breath for 2 days. Patient was admitted to the hospital for treatment and management of sepsis secondary to pneumonia. Patient was given 1 L normal saline and started on ceftriaxone and azithromycin. patient underwent ex lap surgery for perforated gastric ulcer. Patient remained intubated postop and was upgraded to the ICU. Patient continues to be on dialysis after downgrade, has BALAJI and accordion drain intact, completed bowel rest, was started on dysphagia 1 diet, surgery following case closely, will continue to monitor. #New onset A-fib with RVR, improving New onset of Afib, likely related to septic shock requiring pressor support and increased demand from perforated ulcer complicated by abdominal abscesses Pt appears to still be in A-fib, rate controlled, 90s to mid 100s Previous EKG shows a-fib w/RVR CHADVASC: 5 Pts 7.2 % stroke risk per year HAS-BLED score: 3, high risk of major bleeding Pt's HR elevated in the 110s/120s overnight PE want to continue with metoprolol, however we do not know if patient will tolerate in addition to dialysis We may need to give metoprolol on days without dialysis or later in the day after dialysis, will let primary team decide It appears that the patient did not go for dialysis catheter exchange, unsure if she will go again for catheter exchange, patient also to go to dialysis today Will resume heparin drip at this time b/c pt to go abscess drainage on Wednesday Patient still is in the 110s 120s, seems like she is going that way due to uncontrolled pain and the infection/ spesis which exacerbates the Afib Plan: ?Continue with Oral Amio 200 mg BID ?Continue with metoprolol XL 50 ?Adding metoprolol XL 50 as needed for heart rate above 150 and if BP is permissible. ?Continue with heparin drip #Acute exacerbation of HFpEF #HFpEF EF 55 to 60% #History of primary hypertension -Echo 05/16/2024 -estimated EF of 55 to 60%, stage I diastolic dysfunction noted, Moderate to severe posterior MAC Pt has new onset of ESRD requiring HD, requiring midodrine 10 mg QID to tolerate HD Not resuming home amlodipine at this time due to patient being A-fib and blood pressure eventually be controlled with beta-christian We recommend to give midodrine 5 to 10 mg 15 to 30 minutes before dialysis, can give additional 2.5 to 5 mg after dialysis as long as 3 hours after predialysis dose Half-life of midodrine is 9 to 10 hours and patient with CKD something to keep in mind Plan: ?Resume GDMT as able, metoprolol on board right now, as above ?Fluid restriction ?Daily weights ?Strict ins and outs ?Keep potassium and magnesium above 4 and 2 respectively #Hx of Diabetes Mellitus type II Most recent A1c 05/21/2024: 6.2 Plan: Management by primary team #Perforated gastric ulcer #Pneumoperitoneum #Peritonitis secondary to perforated gastric ulcer #Abdominal Abscess, s/p percutaneous drainage x3 Patient found to have tender abdomen, rigidity in the epigastrium, chest x-ray showed elevation of hemidiaphragm, CT abdomen showed pneumoperitoneum, concern for perforated viscus, general surgeon Dr. Santana was consulted for emergency laparotomy and possible repair of perforated gastric ulcer. Repeat CT abd/pel on 05/20 revealed Pneumoperitoneum, orogastric tube in the stomach, mild free fluid adjacent to the stomach and anterior to the pancreas. s/p Exploratory laparotomy & repair of perforated gastric ulcer - 05/15. 06/01/24: Overnight there was concern of wound dehiscence. Discussed with general surgeon per surgery superior aspect of the wound was dehiscent after removal of aixa.Surgery removal of BALAJI drain on 06/01. Repeat CT on 06/01- More pronounced fluid collection in the left abdomen below the spleen, 8.9 x 6.4cm, free fluid in the abdomen and pelvis, and Ascites -Abscess culture from 05/25 grew edna albicans ?Repeat CT abdomen pelvis shows abscess collection lower left abdomen has markedly decreased in size and the accordion drains have no output this morning Repeat CT A/P 06/10/2024 show multiple abscess, will need to drain Plan: Management by primary hospitalist team, drainage on wednesday, will stop heparin drip then #Acute blood loss anemia, stable Likely related to perforated ulcer Hgb stable ~10 Plan: Management by primary hospitalist team #Acute tubular necrosis, requiring hemodialysis #Acute Hypoxic Respiratory failure #Acute Upper GI bleed - stable #Hyperlipidemia #Acute blood loss anemia, stable #Acute encephalopathy-resolved #Septic Shock - resolved #Hypoosmolar Hyponatremia, resolved Above managed by primary hospitalist team Patient seen and care discussed with my attending physician, Dr. Susan Mathews, PGY-1 Attending Provider Attestation/Addendum I reviewed the resident Dr. Hernandes consultation progress note and agree with the resident findings and plan in the note above and have also edited the documentation to reflect my findings and plan. Jalen Davis M.D. Interventional Cardiology
--- NOTE | 2024-06-11 12:58 | ESPR_ITS ---
Documentation for date of: 06/11/24 Subjective Subjective Interval history: Interval history: Mr. Castellanos is a [id number] with past medical history of prediabetes, CKD, hypertension, history of ulcers who was admitted to [facility] for sepsis secondary to pneumonia and acute metabolic encephalopathy. Patient was BIBA to the ED after being found unconscious on the floor. According to the son on admission patient's daughter found the patient at 3 AM passed out on the floor and unresponsive. Family is unaware along the patient was on the floor. 2 days ago patient started to develop abdominal pain and weakness all over her body associated with some diarrhea and shortness of breath. Patient's abdominal pain comes and goes from right side to left side of the abdomen. ED course patient was hypertensive tachycardic tachypneic and was saturating 92% on 5 L nasal cannula ED labs significant for WBCs 24.3, bicarb 19.6, glucose 259, lactic acid 2.2, BNP 304, troponin 0.09. 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, colonic diverticulosis, Cervical spine CT showed 3 mm radiolucency in C3 vertebral body Chest CTA showed mild aneurysmal dilatation ascending thoracic aorta AP dimension 4.3 cm and pulmonary artery hypertension with moderate vascular congestion Face CT shows no acute facial fracture, Lumbar spine CT shows no acute lumbar fracture severe acquired spinal stenosis L4-L5, Thoracic spine CT showed no acute fracture Brain MRI with MRA showed equally focal restricted diffusion brainstem medullary level significant stenosis of right P1 P2 segment posterior cerebral artery Postadmission, cardiology was consulted on admission because of elevated troponins, suspicion of NSTEMI type II, patient has acute decompensated heart failure per cardiology evaluation, neurology consulted because of patient's acute metabolic encephalopathy and GI was consulted for suspicion of GI bleed. Eventually on 05/15 rapid response was called for worsening chest pain, patient's map was consistently in 70s, was tachycardic tachypneic. CT angiogram showed pneumoperitoneum multiple air droplets adjacent to and within wall of stomach with suspicion of gastric perforation. General surgery was consulted for emergency surgery and patient had exploratory laparotomy with repair of perforated gastric ulcer with an omental patch. Patient was upgraded to ICU postop for further management patient currently on Levophed and vasopressor due to distributive shock, currently sedated and intubated on mechanical ventilation. Nephrology consulted due to concern of ADILSON. 06/10/2024 patient currently seen in telemetry. Patient complaining of abdominal pain. Scheduled for dialysis today. Although did have some trouble with catheter before. tPA was placed. Catheter could not be exchanged yesterday. Will monitor catheter function closely. Unfortunately IR not available until Wednesday. 06/11/2024 patient currently seen in telemetry. Sick looking. Did receive dialysis yesterday. Still having some abdominal discomfort.WBC 28.7, hemoglobin 7.8, platelets 261. Sodium 134, potassium 4.8, BUN 53, creatinine 5.6, magnesium 2.4, LFTs normal, albumin 4.0 chest x-ray showed pneumonia/mild heart failure. CT abdomen repeat showed multiple abdominal and pelvic abscesses. Prognosis remains guarded. Review of Systems Review of Systems Narrative Review of Systems: Limited due to her mentation. Denies any chest pain. ++ Cough, shortness of breath with wheezing. c/o Abdominal pain. Exam Vital Signs Temp Pulse Resp BP Pulse Ox O2 Del Method O2 Flow Rate 36.6 C 90 20 96/60 95 Nasal Cannula 1 06/11/24 16:00 06/11/24 16:00 06/11/24 16:00 06/11/24 16:00 06/11/24 16:00 06/11/24 16:00 06/11/24 16:00 FiO2 4 06/10/24 16:00 Narrative Exam GENERAL APPEARANCE: Patient sick looking-in telemetry NECK: Neck supple, no JVD or bruit CARDIOVASCULAR: Heart regular, no murmurs LUNGS/CHEST: Bilateral rhonchi and wheezing noted ABDOMEN: Distended-tender all over. S/p surgery EXTREMITIES: 2+ edema in the lower extremities SKIN: Abdominal surgery MUSCULOSKELETAL: In bed NEUROLOGICAL : Sleepy, arousable. Objective Labs 06/11/24 05:18 06/11/24 05:18 Labs: Laboratory Results - last 24 hr 06/10/24 06/11/24 06/11/24 22:43 01:07 05:18 WBC 30.1 H D 28.7 H RBC 2.97 L 2.95 L Hgb 7.9 L 7.8 L Hct 24.8 L 25.0 L MCV 84 85 MCH 26.6 26.4 MCHC 31.9 31.2 RDW Std Deviation 57.4 H 57.3 H Plt Count 388 D 261 D Neut % (Auto) 76 73 Lymph % (Auto) 15 17 [place] % (Auto) 6 7 Eos % (Auto) 1 1 Baso % (Auto) 1 1 Neut # (Auto) 23.0 H 21.0 H Lymph # (Auto) 4.4 4.9 H [place] # (Auto) 1.8 H 2.0 H Eos # (Auto) 0.3 0.3 Baso # (Auto) 0.2 0.2 Immature Gran # (Auto) 0.34 H 0.28 H Absolute Nucleated RBC 0.08 H 0.07 H Immature Gran % 1 H 1 H Nucleated RBC % 0 0 APTT > 139.0 H* D Sodium 137 134 L Potassium 4.9 4.8 Chloride 99 96 L Carbon Dioxide 23.0 22.0 Anion Gap 15 16 BUN 48 H 53 H Creatinine 5.4 H* 5.6 H* Estim Creat Clear Calc 8.2 L 8.2 L eGFR 8 L* 8 L* BUN/Creatinine Ratio 9 L 9 L Glucose 112 H 122 H Calculated Osmolality 287 283 Lactic Acid 1.8 Calcium 9.6 9.6 Corrected Calcium 9.6 9.6 Phosphorus 6.5 H Magnesium Total Bilirubin 1.0 AST 12 ALT < 7 L Alkaline Phosphatase 120 H Total Protein 7.6 Albumin 4.0 4.0 Globulin 3.6 H Albumin/Globulin Ratio 1.1 L Procalcitonin 3.73 H Random Vancomycin 15.1 06/11/24 06/11/24 07:20 13:51 WBC RBC Hgb Hct MCV MCH MCHC RDW Std Deviation Plt Count Neut % (Auto) Lymph % (Auto) [place] % (Auto) Eos % (Auto) Baso % (Auto) Neut # (Auto) Lymph # (Auto) [place] # (Auto) Eos # (Auto) Baso # (Auto) Immature Gran # (Auto) Absolute Nucleated RBC Immature Gran % Nucleated RBC % APTT 67.3 H D 44.6 H D Sodium Potassium Chloride Carbon Dioxide Anion Gap BUN Creatinine Estim Creat Clear Calc eGFR BUN/Creatinine Ratio Glucose Calculated Osmolality Lactic Acid Calcium Corrected Calcium Phosphorus Magnesium 2.4 Total Bilirubin AST ALT Alkaline Phosphatase Total Protein Albumin Globulin Albumin/Globulin Ratio Procalcitonin Random Vancomycin ABG Interpretation ABG results: 05/13/24 05/15/24 05/15/24 08:29 15:28 16:03 ABG pH 7.39 7.05 L* D 7.17 L* D ABG pCO2 31 L 63 H D 45 D ABG pO2 78 L 38 L* D 84 D ABG HCO3 19 L 18 L 16 L ABG O2 Saturation 96 59 L 96 ABG Base Excess -5 L -12 L -11 L VBG pH VBG pCO2 VBG pO2 VBG Base Excess 05/16/24 05/17/24 05/18/24 04:38 04:03 04:20 ABG pH 7.28 L D 7.38 D 7.49 H D ABG pCO2 34 D 28 L 30 L ABG pO2 96 85 66 L ABG HCO3 16 L 17 L 23 ABG O2 Saturation 98 97 94 ABG Base Excess -10 L -8 L 0 VBG pH VBG pCO2 VBG pO2 VBG Base Excess 05/19/24 05/20/24 05/21/24 09:05 06:05 22:35 ABG pH 7.30 L D 7.41 D ABG pCO2 49 H D 42 ABG pO2 63 L 63 L ABG HCO3 24 27 H ABG O2 Saturation 91 93 ABG Base Excess -3 2 VBG pH 7.31 L VBG pCO2 50 VBG pO2 39 VBG Base Excess -2 05/26/24 05/29/24 04:17 12:28 ABG pH 7.38 7.42 ABG pCO2 42 35 ABG pO2 81 L 67 L ABG HCO3 25 23 ABG O2 Saturation 97 95 ABG Base Excess 0 -2 VBG pH VBG pCO2 VBG pO2 VBG Base Excess Assessment & Plan Additional Assessment & Plan Additional Plan: Mr. Castellanos is a [id number] with past medical history of prediabetes, CKD, hypertension, history of ulcers who was admitted to [facility] for sepsis secondary to pneumonia and acute metabolic encephalopathy. Patient is currently sedated intubated in ICU status post exploratory laparotomy with repair of perforated gastric ulcer with an omental patch. Nephrology consulted for acute kidney injury. #Acute kidney injury #Acute Tubular Necrosis 2/2 shock #Anasarca Patient currently seems to be in ATN probably ischemic from fluctuations in blood pressure and underlying shock- started her on dialysis. Patient has left IJ PermCath Scheduled for dialysis in a.m. Plan discussed with primary team #Acute ischemic stroke #Acute decompensated HF #Hyperlipidemia #Primary Hypertension #Acute Hypoxic Respiratory failure #Peritonitis secondary to perforated gastric ulcer- s/p sx, drains removed #Acute Upper GI bleed #Diabetes Mellitus type II #Acute anemia All above problems per primary team. Prognosis remains guarded.
--- NOTE | 2024-06-11 13:49 | PD.RESPRO ---
Documentation for date of: 06/11/24 Subjective Subjective Interval history: 06/11: Overnight team reported patient complained of abdominal pain and received Dilaudid x 2. Leukocytosis is likely secondary to multiple abscess found on CT scan yesterday per general surgery patient will likely have a drain placed tomorrow. This morning when patient is seen at bedside she complained of abdominal pain she is on 2 L of oxygen via nasal cannula. Patient still has not made any urine but she did have a bowel movement yesterday and today. Pro-Se is 3.73, patient is also found to have pneumonia on CT and CXR, pt is started on micafungin and will continue vancomycin and zosyn. Exam Vital Signs Temp Pulse Resp BP Pulse Ox O2 Del Method O2 Flow Rate 97.8 F 93 21 H 111/55 L 96 Nasal Cannula 1 06/11/24 12:00 06/11/24 12:00 06/11/24 12:00 06/11/24 12:00 06/11/24 12:00 06/11/24 12:00 06/11/24 12:00 FiO2 4 06/10/24 16:00 Narrative Exam GENERAL: A&Ox3 . Awake and alert NEURO: no focal neurological deficits HEENT: Atraumatic, Normocephalic. mucous membranes moist. Eyes open, symmetrical, & clear HEART: Normal Heart Sounds LUNGS: faint wheezing bilaterally and crackles ABDOMEN: soft, non-distended, non-tender, bowel sounds heard, no guarding or rebound tenderness, incision site is clean. SKIN: No Rash or ecchymoses EXTREMITIES: trace pitting edema bilaterally on LE, tenderness, able to move all 4 extremities, pedal pulses palpated Objective Labs 06/12/24 05:49 06/12/24 05:49 Labs: Laboratory Results - last 24 hr 06/10/24 06/10/24 06/11/24 14:49 22:43 01:07 WBC 30.1 H D RBC 2.97 L Hgb 7.9 L Hct 24.8 L MCV 84 MCH 26.6 MCHC 31.9 RDW Std Deviation 57.4 H Plt Count 388 D Neut % (Auto) 76 Lymph % (Auto) 15 [place] % (Auto) 6 Eos % (Auto) 1 Baso % (Auto) 1 Neut # (Auto) 23.0 H Lymph # (Auto) 4.4 [place] # (Auto) 1.8 H Eos # (Auto) 0.3 Baso # (Auto) 0.2 Immature Gran # (Auto) 0.34 H Absolute Nucleated RBC 0.08 H Immature Gran % 1 H Nucleated RBC % 0 APTT 36.7 H > 139.0 H* D Sodium 137 Potassium 4.9 Chloride 99 Carbon Dioxide 23.0 Anion Gap 15 BUN 48 H Creatinine 5.4 H* Estim Creat Clear Calc 8.2 L eGFR 8 L* BUN/Creatinine Ratio 9 L Glucose 112 H Calculated Osmolality 287 Lactic Acid 1.8 Calcium 9.6 Corrected Calcium 9.6 Phosphorus 6.5 H Magnesium Total Bilirubin AST ALT Alkaline Phosphatase Total Protein Albumin 4.0 Globulin Albumin/Globulin Ratio Procalcitonin 3.73 H Random Vancomycin 06/11/24 06/11/24 05:18 07:20 WBC 28.7 H RBC 2.95 L Hgb 7.8 L Hct 25.0 L MCV 85 MCH 26.4 MCHC 31.2 RDW Std Deviation 57.3 H Plt Count 261 D Neut % (Auto) 73 Lymph % (Auto) 17 [place] % (Auto) 7 Eos % (Auto) 1 Baso % (Auto) 1 Neut # (Auto) 21.0 H Lymph # (Auto) 4.9 H [place] # (Auto) 2.0 H Eos # (Auto) 0.3 Baso # (Auto) 0.2 Immature Gran # (Auto) 0.28 H Absolute Nucleated RBC 0.07 H Immature Gran % 1 H Nucleated RBC % 0 APTT 67.3 H D Sodium 134 L Potassium 4.8 Chloride 96 L Carbon Dioxide 22.0 Anion Gap 16 BUN 53 H Creatinine 5.6 H* Estim Creat Clear Calc 8.2 L eGFR 8 L* BUN/Creatinine Ratio 9 L Glucose 122 H Calculated Osmolality 283 Lactic Acid Calcium 9.6 Corrected Calcium 9.6 Phosphorus Magnesium 2.4 Total Bilirubin 1.0 AST 12 ALT < 7 L Alkaline Phosphatase 120 H Total Protein 7.6 Albumin 4.0 Globulin 3.6 H Albumin/Globulin Ratio 1.1 L Procalcitonin Random Vancomycin 15.1 ABG Interpretation ABG results: 05/13/24 05/15/24 05/15/24 08:29 15:28 16:03 ABG pH 7.39 7.05 L* D 7.17 L* D ABG pCO2 31 L 63 H D 45 D ABG pO2 78 L 38 L* D 84 D ABG HCO3 19 L 18 L 16 L ABG O2 Saturation 96 59 L 96 ABG Base Excess -5 L -12 L -11 L VBG pH VBG pCO2 VBG pO2 VBG Base Excess 05/16/24 05/17/24 05/18/24 04:38 04:03 04:20 ABG pH 7.28 L D 7.38 D 7.49 H D ABG pCO2 34 D 28 L 30 L ABG pO2 96 85 66 L ABG HCO3 16 L 17 L 23 ABG O2 Saturation 98 97 94 ABG Base Excess -10 L -8 L 0 VBG pH VBG pCO2 VBG pO2 VBG Base Excess 05/19/24 05/20/24 05/21/24 09:05 06:05 22:35 ABG pH 7.30 L D 7.41 D ABG pCO2 49 H D 42 ABG pO2 63 L 63 L ABG HCO3 24 27 H ABG O2 Saturation 91 93 ABG Base Excess -3 2 VBG pH 7.31 L VBG pCO2 50 VBG pO2 39 VBG Base Excess -2 05/26/24 05/29/24 04:17 12:28 ABG pH 7.38 7.42 ABG pCO2 42 35 ABG pO2 81 L 67 L ABG HCO3 25 23 ABG O2 Saturation 97 95 ABG Base Excess 0 -2 VBG pH VBG pCO2 VBG pO2 VBG Base Excess Quality Measures Quality Measures none Advance care planning discussed with:: patient and sibling Assessment & Plan Assessment Current Active Medications: Generic Name Dose Route Start Last Admin Trade Name Jooq PRN Reason Stop Dose Admin Acetaminophen 650 mg 06/09/24 14:11 Acetaminophen 325 Mg Tablet PO 07/09/24 14:10 Q6HR PRN Fever >101 and pain 1-3 Hydrocodone Bitart/Acetaminophen 1 tab 06/09/24 14:11 Hydrocodone/Apap 5/325 Tablet PO 06/14/24 14:10 Q4HR PRN PAIN SCALE 4-10(Mod-Sev Albuterol/Ipratropium 3 ml 05/27/24 18:08 06/10/24 21:12 Albuterol/Ipratropium (Duoneb) Rt Jimena 3 Ml Nebu INH 06/26/24 18:07 3 ml Q2HR PRN Administration SHORTNESS OF BREATH OR WHEEZE Amiodarone HCl 200 mg 05/29/24 15:00 06/11/24 09:39 Amiodarone Hcl 200 Mg Tablet PO 06/28/24 14:59 Not Given BID ANGELICA Benzocaine 1 lozenge 05/31/24 11:53 06/09/24 23:07 Benzocaine/Menthol 1 Lozenge PO 06/30/24 11:52 1 lozenge Q4HR PRN Administration Sore throat Dextrose 25 ml 05/24/24 15:43 Dextrose 50%-Water Inj 50 Ml Syringe IV 06/23/24 15:42 Q15MIN PRN BG 50-70 responsive npo pt Dextrose 50 ml 05/24/24 15:43 Dextrose 50%-Water Inj 50 Ml Syringe IV 06/23/24 15:42 Q15MIN PRN BG <50 OR BG <70 & pt unresponsive Dronabinol 5 mg 06/07/24 10:40 06/11/24 09:24 Dronabinol 2.5 Mg Capsule PO 07/07/24 10:39 5 mg BIDAC ANGELICA Administration Fluconazole 400 mg 06/11/24 09:00 06/11/24 09:52 Fluconazole 100 Mg Tablet PO 06/18/24 08:59 400 mg QDAY ANGELICA Administration Furosemide 40 mg 06/09/24 10:15 06/11/24 09:42 Furosemide Inj 10 Mg/Ml 4ml Vial IVP 07/09/24 10:14 Not Given QDAY ANGELICA Glucagon 1 mg 05/24/24 15:43 Glucagon Inj 1 Mg Vial IM Q15MIN PRN BG <70, and no IV access Guaifenesin 200 mg 06/10/24 08:30 06/11/24 12:21 Guaifenesin Syrup 200 Mg/10 Ml Udc PO 07/10/24 08:29 200 mg QID ANGELICA Administration Protocol Heparin Sodium (Porcine) 3,500 unit 06/07/24 18:06 06/10/24 20:38 Heparin Sod Inj 1000 Unit/Ml Vial 10 Ml INDWELLCAT 06/21/24 18:05 3,500 unit PRN PRN Administration DIALYSIS Piperacillin/Tazobactam/Dextrose 2.25 gm in 50 mls @ 100 mls/hr 06/10/24 12:10 06/11/24 05:02 Zosyn IV 06/17/24 12:09 100 mls/hr Q8HR ANGELICA Administration Heparin Sodium/Dextrose 25,000 unit in 250 mls @ 8.709 mls/hr 06/10/24 16:15 06/11/24 01:06 Heparin In D5w Ivpb IV 06/12/24 16:14 9 units/kg/hr .Q24H ANGELICA 6.532 mls/hr Titration Protocol 12 UNITS/KG/HR Micafungin Sodium 100 mg/ 100 mls @ 100 mls/hr 06/10/24 13:56 06/11/24 09:45 Sodium Chloride IV 06/25/24 13:55 100 mls/hr QDAY ANGELICA Administration Insulin Glargine 12 unit 05/25/24 09:00 06/11/24 10:05 Insulin Glargine (Lantus) 5 Unit/0.05 Ml (Per 5 Units) SC 06/24/24 08:59 12 unit QDAY ANGELICA Administration Insulin Human Lispro 0 unit 05/24/24 18:00 06/11/24 11:13 Insulin Lispro (Admelog) 1 Unit/0.01 Ml Unit SC 06/23/24 17:59 Not Given Q6HR ANGELICA Protocol Lidocaine 1 patch 05/30/24 09:16 06/01/24 19:01 Lidocaine 5% 1 Patch TOP 06/29/24 09:15 1 patch DAILY PRN Administration BACK PAIN Metoprolol Succinate 50 mg 06/09/24 21:05 06/11/24 09:32 Metoprolol Succinate Xl 25 Mg Tabcr PO 07/09/24 21:04 Not Given QDAY ANGELICA Midodrine 10 mg 06/07/24 21:00 06/11/24 09:15 Midodrine 5 Mg Tablet PO 07/07/24 20:59 10 mg BID ANGELICA Administration Mirtazapine 15 mg 06/09/24 09:00 06/11/24 09:52 Mirtazapine 15 Mg Tablet PO 07/09/24 08:59 15 mg QDAY ANGELICA Administration Ondansetron HCl 4 mg 05/13/24 11:58 05/14/24 12:31 Ondansetron Inj 2 Mg/Ml Inj 2 Ml IV 06/12/24 11:57 4 mg Q6H PRN Administration NAUSEA OR VOMITING Protocol Pantoprazole Sodium 40 mg 05/15/24 21:00 06/11/24 09:47 Pantoprazole Inj 40 Mg Vial IVP 06/14/24 20:59 40 mg BID ANGELICA Administration Pharmacy Consult 1 each 05/16/24 10:27 Pharmacy Renal Dose Adjustment 1 Ea XX 06/15/24 10:26 PRN PRN CONSULT Pharmacy Consult 1 each 06/10/24 12:15 Vancomycin Pharmacy To Dose 1 Each Each IV 07/10/24 12:14 QDAY PRN CONSULT Polyethylene Glycol 17 gm 06/09/24 10:45 06/11/24 09:52 Polyethylene Glycol 17 Gm Packet PO 07/09/24 10:44 17 gm BID ANGELICA Administration Sennosides 1 tab 06/09/24 10:45 06/11/24 09:52 Senna Tablet PO 07/09/24 10:44 1 tab QDAY ANGELICA Administration Protocol Sodium Chloride 3 ml 05/24/24 19:00 Sodium Chloride Rt Jimena 0.9% 3 Ml Nebu INH 06/23/24 18:59 PRN PRN SOLN Timolol Maleate 1 drop 05/28/24 18:15 06/11/24 09:49 Timolol Op Jim[place] 0.5% 5 Ml Btl BOTH EYES 06/27/24 18:14 1 drop DAILY ANGELICA Administration Plan Ms. Castellanos is a 69-year-old female with past medical history significant for hypertension, diabetes and history of gastric ulcers who presented to the ED on 05/13/2024 after she was found unconscious on the floor. Per chart reviewing prior to this unconsciousness patient was having abdominal pain and generalized weakness with diarrhea and shortness of breath for 2 days. Patient was admitted to the hospital for treatment and management of sepsis secondary to pneumonia. Patient was given 1 L normal saline and started on ceftriaxone and azithromycin. patient underwent ex lap surgery for perforated gastric ulcer. Patient remained intubated postop and was upgraded to the ICU. Patient continues to be on dialysis after downgrade, has BALAJI and accordion drain intact, completed bowel rest, was started on dysphagia 1 diet, surgery following case closely, will continue to monitor. #Abdominal pelvic abscess?likely [place] Repeat CT on 06/10 shows multiple abdominal and pelvic abscesses and pneumonia left base ? IV micafungin, in addition to fluconazole, increase fluconazole to 400 mg daily. ? IR CT guided abscess drainage ordered after talking to surgeon Dr. Santana. Likely to be scheduled for Wednesday. ? Ordered abscess culture sensitivity following drainage #Perforated gastric ulcer #Hx of gastric ulcers #Pneumoperitoneum #Peritonitis secondary to perforated gastric ulcer - s/p ex lap #Abdominal Abscess, s/p percutaneous drainage x2- removed #Leukocytosis- resolved Patient found to have tender abdomen, rigidity in the epigastrium, chest x-ray showed elevation of hemidiaphragm, CT abdomen showed pneumoperitoneum, concern for perforated viscus, general surgeon Dr. Santana was consulted for emergency laparotomy and possible repair of perforated gastric ulcer. Repeat CT abd/pel on 05/20 revealed Pneumoperitoneum, orogastric tube in the stomach, mild free fluid adjacent to the stomach and anterior to the pancreas. s/p Exploratory laparotomy & repair of perforated gastric ulcer - 05/15. 06/01/24: Overnight there was concern of wound dehiscence. Discussed with general surgeon per surgery superior aspect of the wound was dehiscent after removal of aixa.Surgery removal of BALAJI drain on 06/01. Repeat CT on 06/01- More pronounced fluid collection in the left abdomen below the spleen, 8.9 x 6.4cm, free fluid in the abdomen and pelvis, and Ascites -Abscess culture from 05/25 grew [place]na albicans -Repeat CT A/P 06/05: abscess collection in the left lower abdomen has markedly decreased in size. the accordions drains have no output this morning. Plan: ?Patient completed antibiotic therapy, Meropenem, discontinued per ID Recommendations -repeat culture sensitivity grew yeast, patient is currently on antifungal will be continued -percutaneous abscess drain catheter placed 06/02 -Pending Abscess Culture from drain 06/02 ?Pain control Fentanyl 25 mcg every 6 hours as needed. And scheduled [place] 5 mg every 6 hours ?disontinue with TPN 06/05 . Patient's diet is advanced to dysphagia 1 and have encouraged family members to bring home-cooked meals that patient would eat ?Continue dronabinol as appetite stimulator ?June 03, 2024: Patient was made n.p.o. by overnight team due to abdominal distention but we resumed her diet and p.o. medications. -accordian drains removed on 06/05 #New onset A-fib with RVR #NSTEMI type 2 -Likely secondary to shock in the setting of abdominal surgery -EKG findings consistent with A-fib -Was on Amiodarone 200 twice daily for new onset Afib, but as she was in AFib with RVR. Plan: ?Cardiology consulted, appreciate recs -Currently on oral amiodarone 200mg ? Holding eliquis 5mg BID for anticoagulation, in anticipation of procedure, will start heparin drip #Nutrition ?Patient noted to have poor appetite, is finishing less than 50% of her meals, was initially on TPN which is discontinued. -Added dronabinol as appetite stimulator #Acute tubular necrosis likely progressed to ESRD #Anuria -2/2 septic shock -Patient had small amount of urine production on 06/08 however this morning no urine yet -Baseline Cr appears to be 0.7 Plan: ?Patient underwent HD fluid removal and removed 2.1 L on 05/18 and 1.5 L on 05/19, 2L fluid removed 05/21, 2.5 L fluid removed on 05/22 , 3L fluid removed on 05/23, 3L fluid removed 05/25, 2L removed 05/26, 1 L removed 05/29, 1.5 L removed 05/30, 06/01 2L fluid removed. -permanent hemodialysis cath placed on 06/02/24 -Patient will require outpatient hemodialysis, dialysis chair secured by case management - Hemodialysis as per schedule. -Started on midodrine 10 mg BID as patient has difficulty tolerating dialysis, blood pressure drops. -Renally dose medications and avoid nephrotoxic agents -repeat labs in am -lasix 40mg daily -Nephrology following #Acute exacerbation of HFpEF # HFpEF EF 55 to 60% -echo 05/16 -estimated EF of 55 to 60%, stage I diastolic dysfunction noted, Moderate to severe posterior MAC -Pt presented with SOB and 2+ edema in LE -elevated BNP from 304 --> 1110 -HD in the setting of anuria -holding guideline directed medical therapy due to shock, will resume when able -Continue dialysis, as per nephrology recommendations #Acute Hypoxic Respiratory failure #fluid overload in the setting of ATN likely multifactorial -2/2 to pulmonary edema in the setting of volume overload 2/2 ATN due to shock leading to oligoanuria versus bibasilar pneumonia -Further complicated by bilateral lung atelectasis in the setting of recent abdominal surgery and sedatives use -Patient was intubated and on mechanical ventilation (05/15) and extubated 05/18/2024, currently saturating 95-97 % on 5 L NC -Duonebs prn -chest physiotherapy ordered -mucolytics ordered #Acute Upper GI bleed - stable -Most likely secondary to perforated gastric ulcer -Patient had a single episode of black tarry stool today-likely setting of recent abdominal surgery -Continue iv Protonix. -Will monitor for alarm signs of active bleeding with melena or hematochezia #Hx of Diabetes Mellitus type II - A1C 6.3 % 05/21/2024 - Hold home glipizide and januvia - Plan: Continue to monitor blood sugars - Insulin sliding scale ordered with lantus 12 units #Hyperlipidemia -Unclear if patient takes any medications as a statin is not on list of home meds #Primary Hypertension Holding on resuming home blood pressure medicines at this time #Acute blood loss anemia, stable 2/2 perforated ulcer- S/P surgical repair Hgb stable 9.6 Hct 28.3 patient received 2 units of pRBC 05/18 due to acutely drop in Hgb below 7. No signs of active bleeding. Plan: -Continue to monitor daily CBC. transfuse for hemoglobin less than 7. # Acute encephalopathy-resolved -Likely multifactorial secondary to sepsis versus metabolic versus neurologic versus medication -Patient is awake and alert and follows commands. Patient is able to respond to yes or no questions verbally #Shock - resolved #Hypoosmolar Hyponatremia, resolved Disposition: Telemetry DVT prophylaxis: Eliquis 5 mg twice daily anticoagulation for A-fib GI prophylaxis:Protonix 40 BID Diet: Dysphagia 1 diet CODE STATUS: Full Assessment and plan discussed with my attending physician Dr. Luis Enrique Rivera ([id number])- Internal medicine resident Attending Provider Attestation/Addendum I reviewed labs, imaging, EKG, home medications and prior available records. Face to face evaluation was performed by me. I have personally examined the patient and discussed assessment and plan with the IM team. I reviewed the resident note and agree with the plan with exceptions as below. Hospital-acquired pneumonia Sepsis due to pneumonia Perforated gastric ulcer Intra-abdominal abscess status post drain X2 ADILSON reaching hemodialysis point, dialysis dependent Atrial fibrillation with controlled ventricular rhythm WBC is uptrending and patient is tachycardic. Ordered chest x-ray that showed bibasilar pneumonia. Restarted vancomycin/cefepime given the uptrending WBC Changed antifungal to micafungin. Appreciate ID recommendations Discussed with general surgery: Recommended IR guided drainage to rule out recurrence of abdominal abscess. IR consulted Continue PPI. Not a candidate for PEG tube placement given her recent surgery Continue hemodialysis per nephrology schedule Continue amiodarone and Eliquis Encourage oral intake as TPN is weaned off. Ordered Marinol for appetite stimulation
--- NOTE | 2024-06-11 13:52 | ESPR_ITS ---
Documentation for date of: 06/11/24 Subjective Subjective Interval history: Poor p.o. intake remains an issue Exam Vital Signs Temp Pulse Resp BP Pulse Ox O2 Del Method O2 Flow Rate 97.8 F 93 21 H 111/55 L 96 Nasal Cannula 1 06/11/24 12:00 06/11/24 12:00 06/11/24 12:00 06/11/24 12:00 06/11/24 12:00 06/11/24 12:00 06/11/24 12:00 FiO2 4 06/10/24 16:00 Objective Labs 06/12/24 05:49 06/12/24 05:49 Labs: Laboratory Results - last 24 hr 06/10/24 06/10/24 06/11/24 14:49 22:43 01:07 WBC 30.1 H D RBC 2.97 L Hgb 7.9 L Hct 24.8 L MCV 84 MCH 26.6 MCHC 31.9 RDW Std Deviation 57.4 H Plt Count 388 D Neut % (Auto) 76 Lymph % (Auto) 15 [place] % (Auto) 6 Eos % (Auto) 1 Baso % (Auto) 1 Neut # (Auto) 23.0 H Lymph # (Auto) 4.4 [place] # (Auto) 1.8 H Eos # (Auto) 0.3 Baso # (Auto) 0.2 Immature Gran # (Auto) 0.34 H Absolute Nucleated RBC 0.08 H Immature Gran % 1 H Nucleated RBC % 0 APTT 36.7 H > 139.0 H* D Sodium 137 Potassium 4.9 Chloride 99 Carbon Dioxide 23.0 Anion Gap 15 BUN 48 H Creatinine 5.4 H* Estim Creat Clear Calc 8.2 L eGFR 8 L* BUN/Creatinine Ratio 9 L Glucose 112 H Calculated Osmolality 287 Lactic Acid 1.8 Calcium 9.6 Corrected Calcium 9.6 Phosphorus 6.5 H Magnesium Total Bilirubin AST ALT Alkaline Phosphatase Total Protein Albumin 4.0 Globulin Albumin/Globulin Ratio Procalcitonin 3.73 H Random Vancomycin 06/11/24 06/11/24 05:18 07:20 WBC 28.7 H RBC 2.95 L Hgb 7.8 L Hct 25.0 L MCV 85 MCH 26.4 MCHC 31.2 RDW Std Deviation 57.3 H Plt Count 261 D Neut % (Auto) 73 Lymph % (Auto) 17 [place] % (Auto) 7 Eos % (Auto) 1 Baso % (Auto) 1 Neut # (Auto) 21.0 H Lymph # (Auto) 4.[address] [place] # (Auto) 2.0 H Eos # (Auto) 0.3 Baso # (Auto) 0.2 Immature Gran # (Auto) 0.28 H Absolute Nucleated RBC 0.07 H Immature Gran % 1 H Nucleated RBC % 0 APTT 67.3 H D Sodium 134 L Potassium 4.8 Chloride 96 L Carbon Dioxide 22.0 Anion Gap 16 BUN 53 H Creatinine 5.6 H* Estim Creat Clear Calc 8.2 L eGFR 8 L* BUN/Creatinine Ratio 9 L Glucose 122 H Calculated Osmolality 283 Lactic Acid Calcium 9.6 Corrected Calcium 9.6 Phosphorus Magnesium 2.4 Total Bilirubin 1.0 AST 12 ALT < 7 L Alkaline Phosphatase 120 H Total Protein 7.6 Albumin 4.0 Globulin 3.6 H Albumin/Globulin Ratio 1.1 L Procalcitonin Random Vancomycin 15.1 Impressions Impression: # Gastric perforation due to gastric ulcer requiring surgical exploration # Renal failure on hemodialysis # poor p.o. intake Continue to encourage p.o. intake ABG Interpretation ABG results: 05/13/24 05/15/24 05/15/24 08:29 15:28 16:03 ABG pH 7.39 7.05 L* D 7.17 L* D ABG pCO2 31 L 63 H D 45 D ABG pO2 78 L 38 L* D 84 D ABG HCO3 19 L 18 L 16 L ABG O2 Saturation 96 59 L 96 ABG Base Excess -5 L -12 L -11 L VBG pH VBG pCO2 VBG pO2 VBG Base Excess 05/16/24 05/17/24 05/18/24 04:38 04:03 04:20 ABG pH 7.28 L D 7.38 D 7.49 H D ABG pCO2 34 D 28 L 30 L ABG pO2 96 85 66 L ABG HCO3 16 L 17 L 23 ABG O2 Saturation 98 97 94 ABG Base Excess -10 L -8 L 0 VBG pH VBG pCO2 VBG pO2 VBG Base Excess 05/19/24 05/20/24 05/21/24 09:05 06:05 22:35 ABG pH 7.30 L D 7.41 D ABG pCO2 49 H D 42 ABG pO2 63 L 63 L ABG HCO3 24 27 H ABG O2 Saturation 91 93 ABG Base Excess -3 2 VBG pH 7.31 L VBG pCO2 50 VBG pO2 39 VBG Base Excess -2 05/26/24 05/29/24 04:17 12:28 ABG pH 7.38 7.42 ABG pCO2 42 35 ABG pO2 81 L 67 L ABG HCO3 25 23 ABG O2 Saturation 97 95 ABG Base Excess 0 -2 VBG pH VBG pCO2 VBG pO2 VBG Base Excess Assessment & Plan A&P Narrative abd abscess, stain neg. later grew c albicans so on flucon now here since 05/13.usual rx for most things is 7d. left on merrem thru weekend but collection in abd eventually grew a yeast, so ok for another 7d rx will see again if requested Time Spent With Patient Time: Total time spent is greater than 50% in coordination of care (as documented) at patient's floor/unit and/or counseling patient:
[2024-06-11 14:20] LABS: Partial Thromboplastin Time 44.6 Seconds (22.0-36.0)
[2024-06-11] MEDS: HEPARIN SOD INJ 5000 UNIT/ML VIAL 2000 UNIT IV (15:43)
[2024-06-11] MEDS: HYDROcodone/APAP 5/325 TABLET 1 TAB PO (16:32)
[2024-06-11] MEDS: AMIODARONE HCL 200 MG TABLET PO (21:04)
[2024-06-11 22:37] LABS: Partial Thromboplastin Time 69.5 Seconds (22.0-36.0)
--- NOTE | 2024-06-11 23:14 | VVPN_ITS ---
Telemedicine visit statement This visit was conducted with the use of virtual visit was obtained on 06/11/24 at 2314. Documentation for date of: 06/11/24 Subjective Subjective Interval history: Patient is in telemetry today, no changes or overnight events noted. Reportedly more edematous today despite the dialysis yesterday, maintaining o2 saturation well with oxygen through nsaal cannula. Virtual exam Vital Signs Temp Pulse Resp BP Pulse Ox O2 Del Method O2 Flow Rate 97.3 F 94 21 H 91/52 L 97 Nasal Cannula 4 06/11/24 20:00 06/11/24 21:05 06/11/24 20:00 06/11/24 21:05 06/11/24 20:00 06/11/24 20:00 06/11/24 20:00 FiO2 4 06/10/24 16:00 Objective Labs 06/11/24 05:18 06/11/24 05:18 Labs: Laboratory Results - last 24 hr 06/10/24 06/11/24 06/11/24 22:43 01:07 05:18 WBC 30.1 H D 28.7 H RBC 2.97 L 2.95 L Hgb 7.9 L 7.8 L Hct 24.8 L 25.0 L MCV 84 85 MCH 26.6 26.4 MCHC 31.9 31.2 RDW Std Deviation 57.4 H 57.3 H Plt Count 388 D 261 D Neut % (Auto) 76 73 Lymph % (Auto) 15 17 [place] % (Auto) 6 7 Eos % (Auto) 1 1 Baso % (Auto) 1 1 Neut # (Auto) 23.0 H 21.0 H Lymph # (Auto) 4.4 4.9 H [place] # (Auto) 1.8 H 2.0 H Eos # (Auto) 0.3 0.3 Baso # (Auto) 0.2 0.2 Immature Gran # (Auto) 0.34 H 0.28 H Absolute Nucleated RBC 0.08 H 0.07 H Immature Gran % 1 H 1 H Nucleated RBC % 0 0 APTT > 139.0 H* D Sodium 137 134 L Potassium 4.9 4.8 Chloride 99 96 L Carbon Dioxide 23.0 22.0 Anion Gap 15 16 BUN 48 H 53 H Creatinine 5.4 H* 5.6 H* Estim Creat Clear Calc 8.2 L 8.2 L eGFR 8 L* 8 L* BUN/Creatinine Ratio 9 L 9 L Glucose 112 H 122 H Calculated Osmolality 287 283 Lactic Acid 1.8 Calcium 9.6 9.6 Corrected Calcium 9.6 9.6 Phosphorus 6.5 H Magnesium Total Bilirubin 1.0 AST 12 ALT < 7 L Alkaline Phosphatase 120 H Total Protein 7.6 Albumin 4.0 4.0 Globulin 3.6 H Albumin/Globulin Ratio 1.1 L Procalcitonin 3.73 H Random Vancomycin 15.1 06/11/24 06/11/24 06/11/24 07:20 13:51 21:48 WBC RBC Hgb Hct MCV MCH MCHC RDW Std Deviation Plt Count Neut % (Auto) Lymph % (Auto) [place] % (Auto) Eos % (Auto) Baso % (Auto) Neut # (Auto) Lymph # (Auto) [place] # (Auto) Eos # (Auto) Baso # (Auto) Immature Gran # (Auto) Absolute Nucleated RBC Immature Gran % Nucleated RBC % APTT 67.3 H D 44.6 H D 69.5 H D Sodium Potassium Chloride Carbon Dioxide Anion Gap BUN Creatinine Estim Creat Clear Calc eGFR BUN/Creatinine Ratio Glucose Calculated Osmolality Lactic Acid Calcium Corrected Calcium Phosphorus Magnesium 2.4 Total Bilirubin AST ALT Alkaline Phosphatase Total Protein Albumin Globulin Albumin/Globulin Ratio Procalcitonin Random Vancomycin ABG Interpretation ABG results: 05/13/24 05/15/24 05/15/24 08:29 15:28 16:03 ABG pH 7.39 7.05 L* D 7.17 L* D ABG pCO2 31 L 63 H D 45 D ABG pO2 78 L 38 L* D 84 D ABG HCO3 19 L 18 L 16 L ABG O2 Saturation 96 59 L 96 ABG Base Excess -5 L -12 L -11 L VBG pH VBG pCO2 VBG pO2 VBG Base Excess 05/16/24 05/17/24 05/18/24 04:38 04:03 04:20 ABG pH 7.28 L D 7.38 D 7.49 H D ABG pCO2 34 D 28 L 30 L ABG pO2 96 85 66 L ABG HCO3 16 L 17 L 23 ABG O2 Saturation 98 97 94 ABG Base Excess -10 L -8 L 0 VBG pH VBG pCO2 VBG pO2 VBG Base Excess 05/19/24 05/20/24 05/21/24 09:05 06:05 22:35 ABG pH 7.30 L D 7.41 D ABG pCO2 49 H D 42 ABG pO2 63 L 63 L ABG HCO3 24 27 H ABG O2 Saturation 91 93 ABG Base Excess -3 2 VBG pH 7.31 L VBG pCO2 50 VBG pO2 39 VBG Base Excess -2 05/26/24 05/29/24 04:17 12:28 ABG pH 7.38 7.42 ABG pCO2 42 35 ABG pO2 81 L 67 L ABG HCO3 25 23 ABG O2 Saturation 97 95 ABG Base Excess 0 -2 VBG pH VBG pCO2 VBG pO2 VBG Base Excess Assessment & Plan Assessment 69-year-old female with past medical history of CKD stage III, prediabetes, hypertension who was found unconscious in her room. As well as diarrhea and shortness of breath. Admitted for sepsis secondary to pneumonia and acute metabolic encephalopathy #Acute metabolic encephalopathy- currently in telemetry, significant improvement noted, close to baseline #Generalized weakness --Brain MRI with MRA shows significant stenoses in posterior cerebral artery, no acute infarction noted -Will continue with the current management as per primary team Continue with Physical therapy as she tolerates.
[2024-06-12] VITALS (28 sets, daily range): BP systolic 73–129; BP diastolic 31–85; PULSE 90–120; RESP 18–30; TEMP 36.1–36.8; O2SAT 94–99; BMI 35.0; BMI 37.5
--- NOTE | 2024-06-12 01:12 | PC.RT ---
Pt has been given an IS previously
[2024-06-12] MEDS: guaiFENesin SYRUP 200 MG/10 ML UDC PO ×3 (05:39→21:47)
[2024-06-12] MEDS: PIPER/TAZO 2.25 GM 2.25 GM/50 ML BAG IV ×2 (05:39→21:47)
[2024-06-12 06:11] LABS: Basophils # (Auto) 0.1 Thou/mm3 (0.0-0.2); Basophils % (Auto) 1 % (0-2.5); Eosinophils # (Auto) 1.2 Thou/mm3 (0.0-0.5); Eosinophils % (Auto) 5 % (0-10); Hematocrit 25.4 % (36.0-46.0); Immature Granulocytes % (Auto) 1 % (0-0); Immature Granulocytes Auto 0.19 Thou/mm3 (0.00-0.00); Lymphocytes # (Auto) 3.6 Thou/mm3 (1.0-4.8); Lymphocytes % (Auto) 16 % (10-50); Mean Corpuscular HGB Conc 31.9 g/dl (31.0-37.0); Mean Corpuscular Hemoglobin 26.2 pg (25.0-35.0); Mean Corpuscular Volume 82 fL (80-100); Monocytes # (Auto) 1.6 Thou/mm3 (0.0-0.8); Monocytes % (Auto) 7 % (0-12); Neutrophils # (Auto) 16.2 Thou/mm3 (1.8-7.7); Neutrophils % (Auto) 71 % (37-80); Nucleated Red Blood Cell # 0.13 Thou/mm3 (0.00-0.00); Nucleated Red Blood Cell % 1 /100 WBC (0); Platelet Count 297 Thou/mm3 (140-440); RDW Standard Deviation 55.9 fL (36.4-46.3); Red Blood Count 3.09 Miln/mm3 (4.00-5.20); White Blood Count 22.9 Thou/mm3 (3.6-11.0)
[2024-06-12 06:12] LABS: Hemoglobin 8.1 g/dL (12.0-16.0)
[2024-06-12 06:28] LABS: INR 1.4 (0.9-1.3); Partial Thromboplastin Time 38.4 Seconds (22.0-36.0); Prothrombin Time 15.1 Seconds (9.0-12.2)
[2024-06-12 07:02] LABS: Alanine Aminotransferase < 7 U/L (10-49); Albumin, Serum 3.8 gm/dL (3.4-4.8); Alkaline Phosphatase 116 U/L (46-116); Anion Gap 16 (7-16); Aspartate Amino Transferase 12 U/L (0-34); BUN/Creatinine Ratio 11 Ratio (12-20); Bilirubin,Total 0.7 mg/dL (0.3-1.2); Blood Urea Nitrogen 74 mg/dL (9-23); Calcium 9.5 mg/dL (8.3-10.6); Calcium (Corrected) 9.7 mg/dL (8.5-10.1); Carbon Dioxide 21.6 mMol/L (20.0-31.0); Chloride 96 mMol/L (98-107); Estimated Creatinine Clearance 6.5 mL/min (>60); Globulin 3.8 gm/dL (2.3-3.5); Glucose 99 mg/dL (74-106); Osmolality,Calculated 290 (275-295); Potassium 5.1 mMol/L (3.4-5.1); Sodium 134 mMol/L (136-145); Total Protein 7.6 gm/dL (5.7-8.2); Vancomycin,Random 13.6 mcg/mL; eGFR 6 See Note
--- NOTE | 2024-06-12 09:06 | ESPR_ITS ---
Documentation for date of: 06/12/24 Subjective Subjective Interval history: 06/12: No acute overnight events. Patient seen and examined at bedside this morning patient is saturating at 93% on 1 L oxygen via nasal cannula. Patient still has a productive cough and 1+ pitting edema. Patient denies abdominal pain and remains afebrile and leukocytosis is downtrending patient will undergo CT abscess drain catheter placement today for multiple abscess found on CT on 06/09. Patient has no urine production and no bowel movement overnight. Exam Vital Signs Temp Pulse Resp BP Pulse Ox O2 Del Method O2 Flow Rate 97.2 F 98 30 H 110/81 97 Nasal Cannula 2 06/12/24 04:00 06/12/24 06:52 06/12/24 06:52 06/12/24 04:00 06/12/24 06:52 06/12/24 04:00 06/12/24 06:52 FiO2 4 06/10/24 16:00 Narrative Exam GENERAL: A&Ox3 . Awake and alert NEURO: no focal neurological deficits HEENT: Atraumatic, Normocephalic. mucous membranes moist. Eyes open, symmetrical, & clear HEART: Normal Heart Sounds LUNGS: faint wheezing bilaterally and crackles ABDOMEN: soft, non-distended, non-tender, bowel sounds heard, no guarding or rebound tenderness, incision site is clean. SKIN: No Rash or ecchymoses EXTREMITIES: 1+ pitting edema bilaterally on LE, tenderness, able to move all 4 extremities, pedal pulses palpated Objective Labs 06/12/24 05:49 06/12/24 05:49 Labs: Laboratory Results - last 24 hr 06/11/24 06/11/24 06/11/24 07:20 13:51 21:48 WBC RBC Hgb Hct MCV MCH MCHC RDW Std Deviation Plt Count Neut % (Auto) Lymph % (Auto) [place] % (Auto) Eos % (Auto) Baso % (Auto) Neut # (Auto) Lymph # (Auto) [place] # (Auto) Eos # (Auto) Baso # (Auto) Immature Gran # (Auto) Absolute Nucleated RBC Immature Gran % Nucleated RBC % PT INR APTT 44.6 H D 69.5 H D Sodium Potassium Chloride Carbon Dioxide Anion Gap BUN Creatinine Estim Creat Clear Calc eGFR BUN/Creatinine Ratio Glucose Calculated Osmolality Calcium Corrected Calcium Magnesium 2.4 Total Bilirubin AST ALT Alkaline Phosphatase Total Protein Albumin Globulin Albumin/Globulin Ratio Random Vancomycin 06/12/24 05:49 WBC 22.9 H D RBC 3.09 L Hgb 8.1 L Hct 25.4 L MCV 82 MCH 26.2 MCHC 31.9 RDW Std Deviation 55.9 H Plt Count 297 D Neut % (Auto) 71 Lymph % (Auto) 16 [place] % (Auto) 7 Eos % (Auto) 5 Baso % (Auto) 1 Neut # (Auto) 16.2 H Lymph # (Auto) 3.6 [place] # (Auto) 1.6 H Eos # (Auto) 1.2 H Baso # (Auto) 0.1 Immature Gran # (Auto) 0.19 H Absolute Nucleated RBC 0.13 H Immature Gran % 1 H Nucleated RBC % 1 H PT 15.1 H INR 1.4 H APTT 38.4 H D Sodium 134 L Potassium 5.1 Chloride 96 L Carbon Dioxide 21.6 Anion Gap 16 BUN 74 H Creatinine 7.0 H* D Estim Creat Clear Calc 6.5 L eGFR 6 L* BUN/Creatinine Ratio 11 L Glucose 99 Calculated Osmolality 290 Calcium 9.5 Corrected Calcium 9.7 Magnesium Total Bilirubin 0.7 AST 12 ALT < 7 L Alkaline Phosphatase 116 Total Protein 7.6 Albumin 3.8 Globulin 3.8 H Albumin/Globulin Ratio 1.0 L Random Vancomycin 13.6 ABG Interpretation ABG results: 05/13/24 05/15/24 05/15/24 08:29 15:28 16:03 ABG pH 7.39 7.05 L* D 7.17 L* D ABG pCO2 31 L 63 H D 45 D ABG pO2 78 L 38 L* D 84 D ABG HCO3 19 L 18 L 16 L ABG O2 Saturation 96 59 L 96 ABG Base Excess -5 L -12 L -11 L VBG pH VBG pCO2 VBG pO2 VBG Base Excess 05/16/24 05/17/24 05/18/24 04:38 04:03 04:20 ABG pH 7.28 L D 7.38 D 7.49 H D ABG pCO2 34 D 28 L 30 L ABG pO2 96 85 66 L ABG HCO3 16 L 17 L 23 ABG O2 Saturation 98 97 94 ABG Base Excess -10 L -8 L 0 VBG pH VBG pCO2 VBG pO2 VBG Base Excess 1205/20/24 05/21/24 09:05 06:05 22:35 ABG pH 7.30 L D 7.41 D ABG pCO2 49 H D 42 ABG pO2 63 L 63 L ABG HCO3 24 27 H ABG O2 Saturation 91 93 ABG Base Excess -3 2 VBG pH 7.31 L VBG pCO2 50 VBG pO2 39 VBG Base Excess -2 05/26/24 05/29/24 04:17 12:28 ABG pH 7.38 7.42 ABG pCO2 42 35 ABG pO2 81 L 67 L ABG HCO3 25 23 ABG O2 Saturation 97 95 ABG Base Excess 0 -2 VBG pH VBG pCO2 VBG pO2 VBG Base Excess Quality Measures Quality Measures none Advance care planning discussed with:: patient and child Assessment & Plan Assessment Current Active Medications: Generic Name Dose Route Start Last Admin Trade Name Freq PRN Reason Stop Dose Admin Acetaminophen 650 mg 06/09/24 14:11 Acetaminophen 325 Mg Tablet PO 07/09/24 14:10 Q6HR PRN Fever >101 and pain 1-3 Hydrocodone Bitart/Acetaminophen 1 tab 06/09/24 14:11 06/11/24 16:32 Hydrocodone/Apap 5/325 Tablet PO 06/14/24 14:10 1 tab Q4HR PRN Administration PAIN SCALE 4-10(Mod-Sev Albuterol/Ipratropium 3 ml 05/27/24 18:08 06/10/24 21:12 Albuterol/Ipratropium (Duoneb) Rt Jimena 3 Ml Nebu INH 06/26/24 18:07 3 ml Q2HR PRN Administration SHORTNESS OF BREATH OR WHEEZE Amiodarone HCl 200 mg 05/29/24 15:00 06/11/24 21:04 Amiodarone Hcl 200 Mg Tablet PO 06/28/24 14:59 200 mg BID ANGELICA Administration Benzocaine 1 lozenge 05/31/24 11:53 06/09/24 23:07 Benzocaine/Menthol 1 Lozenge PO 06/30/24 11:52 1 lozenge Q4HR PRN Administration Sore throat Dextrose 25 ml 05/24/24 15:43 Dextrose 50%-Water Inj 50 Ml Syringe IV 06/23/24 15:42 Q15MIN PRN BG 50-70 responsive npo pt Dextrose 50 ml 05/24/24 15:43 Dextrose 50%-Water Inj 50 Ml Syringe IV 06/23/24 15:42 Q15MIN PRN BG <50 OR BG <70 & pt unresponsive Dronabinol 5 mg 06/07/24 10:40 06/11/24 16:22 Dronabinol 2.5 Mg Capsule PO 07/07/24 10:39 5 mg BIDAC ANGELICA Administration Fluconazole 400 mg 06/11/24 09:00 06/11/24 09:52 Fluconazole 100 Mg Tablet PO 06/18/24 08:59 400 mg QDAY ANGELICA Administration Furosemide 40 mg 06/09/24 10:15 06/11/24 09:42 Furosemide Inj 10 Mg/Ml 4ml Vial IVP 07/09/24 10:14 Not Given QDAY ANGELICA Glucagon 1 mg 05/24/24 15:43 Glucagon Inj 1 Mg Vial IM Q15MIN PRN BG <70, and no IV access Guaifenesin 200 mg 06/10/24 08:30 06/12/24 05:39 Guaifenesin Syrup 200 Mg/10 Ml Udc PO 07/10/24 08:29 200 mg QID ANGELICA Administration Protocol Heparin Sodium (Porcine) 3,500 unit 06/07/24 18:06 06/10/24 20:38 Heparin Sod Inj 1000 Unit/Ml Vial 10 Ml INDWELLCAT 06/21/24 18:05 3,500 unit PRN PRN Administration DIALYSIS Piperacillin/Tazobactam/Dextrose 2.25 gm in 50 mls @ 100 mls/hr 06/10/24 12:10 06/12/24 05:39 Zosyn IV 06/17/24 12:09 100 mls/hr Q8HR ANGELICA Administration Heparin Sodium/Dextrose 25,000 unit in 250 mls @ 8.709 mls/hr 06/10/24 16:15 06/12/24 04:00 Heparin In D5w Ivpb IV 06/12/24 16:14 0 units/kg/hr .Q24H ANGELICA 0 mls/hr Titration Protocol 12 UNITS/KG/HR Micafungin Sodium 100 mg/ 100 mls @ 100 mls/hr 06/10/24 13:56 06/11/24 09:45 Sodium Chloride IV 06/25/24 13:55 100 mls/hr QDAY ANGELICA Administration Vancomycin/Sodium Chloride 200 mls @ 120 mls/hr 06/12/24 16:00 Vancomycin/Ns 1 Gm Ivpb IV 06/12/24 17:39 X1 ONE Insulin Glargine 12 unit 05/25/24 09:00 06/11/24 10:05 Insulin Glargine (Lantus) 5 Unit/0.05 Ml (Per 5 Units) SC 06/24/24 08:59 12 unit QDAY ANGELICA Administration Insulin Human Lispro 0 unit 05/24/24 18:00 06/12/24 05:24 Insulin Lispro (Admelog) 1 Unit/0.01 Ml Unit SC 06/23/24 17:59 Not Given Q6HR ANGELICA Protocol Lidocaine 1 patch 05/30/24 09:16 06/01/24 19:01 Lidocaine 5% 1 Patch TOP 06/29/24 09:15 1 patch DAILY PRN Administration BACK PAIN Metoprolol Succinate 50 mg 06/09/24 21:05 06/11/24 09:32 Metoprolol Succinate Xl 25 Mg Tabcr PO 07/09/24 21:04 Not Given QDAY ANGELICA Metoprolol Succinate 50 mg 06/11/24 14:03 Metoprolol Succinate Xl 25 Mg Tabcr PO 07/12/24 08:59 QDAY PRN Tachycardia above 150 Midodrine 10 mg 06/07/24 21:00 06/11/24 21:05 Midodrine 5 Mg Tablet PO 07/07/24 20:59 10 mg BID ANGELICA Administration Mirtazapine 15 mg 06/09/24 09:00 06/11/24 09:52 Mirtazapine 15 Mg Tablet PO 07/09/24 08:59 15 mg QDAY ANGELICA Administration Ondansetron HCl 4 mg 05/13/24 11:58 05/14/24 12:31 Ondansetron Inj 2 Mg/Ml Inj 2 Ml IV 06/12/24 11:57 4 mg Q6H PRN Administration NAUSEA OR VOMITING Protocol Pantoprazole Sodium 40 mg 05/15/24 21:00 06/11/24 21:06 Pantoprazole Inj 40 Mg Vial IVP 06/14/24 20:59 40 mg BID ANGELICA Administration Pharmacy Consult 1 each 05/16/24 10:27 Pharmacy Renal Dose Adjustment 1 Ea XX 06/15/24 10:26 PRN PRN CONSULT Pharmacy Consult 1 each 06/10/24 12:15 Vancomycin Pharmacy To Dose 1 Each Each IV 07/10/24 12:14 QDAY PRN CONSULT Polyethylene Glycol 17 gm 06/09/24 10:45 06/11/24 21:06 Polyethylene Glycol 17 Gm Packet PO 07/09/24 10:44 17 gm BID ANGELICA Administration Sennosides 1 tab 06/09/24 10:45 06/11/24 09:52 Senna Tablet PO 07/09/24 10:44 1 tab QDAY ANGELICA Administration Protocol Sodium Chloride 3 ml 05/24/24 19:00 Sodium Chloride Rt Jimena 0.9% 3 Ml Nebu INH 06/23/24 18:59 PRN PRN SOLN Timolol Maleate 1 drop 05/28/24 18:15 06/11/24 09:49 Timolol Op Jimena 0.5% 5 Ml Btl BOTH EYES 06/27/24 18:14 1 drop DAILY ANGELICA Administration Plan Ms. Castellanos is a 69-year-old female with past medical history significant for hypertension, diabetes and history of gastric ulcers who presented to the ED on 05/13/2024 after she was found unconscious on the floor. Per chart reviewing prior to this unconsciousness patient was having abdominal pain and generalized weakness with diarrhea and shortness of breath for 2 days. Patient was admitted to the hospital for treatment and management of sepsis secondary to pneumonia. Patient was given 1 L normal saline and started on ceftriaxone and azithromycin. patient underwent ex lap surgery for perforated gastric ulcer. Patient remained intubated postop and was upgraded to the ICU. Patient continues to be on dialysis after downgrade, has BALAJI and accordion drain intact, completed bowel rest, was started on dysphagia 1 diet, surgery following case closely, will continue to monitor. #Abdominal pelvic abscess?likely [place] Repeat CT on 06/10 shows multiple abdominal and pelvic abscesses and pneumonia left base ? IV micafungin, in addition to fluconazole, increase fluconazole to 400 mg daily. ? IR CT guided abscess drainage ordered after talking to surgeon Dr. Santana. Likely to be scheduled for Wednesday. ? abscess culture on 06/02 is positive for edna albicans- will continue flucanazole -CT guided IR drainage placed today 06/12 #Perforated gastric ulcer #Hx of gastric ulcers #Pneumoperitoneum #Peritonitis secondary to perforated gastric ulcer - s/p ex lap #Abdominal Abscess, s/p percutaneous drainage x2- removed #Leukocytosis- resolved Patient found to have tender abdomen, rigidity in the epigastrium, chest x-ray showed elevation of hemidiaphragm, CT abdomen showed pneumoperitoneum, concern for perforated viscus, general surgeon Dr. Santana was consulted for emergency laparotomy and possible repair of perforated gastric ulcer. Repeat CT abd/pel on 05/20 revealed Pneumoperitoneum, orogastric tube in the stomach, mild free fluid adjacent to the stomach and anterior to the pancreas. s/p Exploratory laparotomy & repair of perforated gastric ulcer - 05/15. 06/01/24: Overnight there was concern of wound dehiscence. Discussed with general surgeon per surgery superior aspect of the wound was dehiscent after removal of aixa.Surgery removal of BALAJI drain on 06/01. Repeat CT on 06/01- More pronounced fluid collection in the left abdomen below the spleen, 8.9 x 6.4cm, free fluid in the abdomen and pelvis, and Ascites -Abscess culture from 05/25 grew edna albicans -Repeat CT A/P 06/05: abscess collection in the left lower abdomen has markedly decreased in size. the accordions drains have no output this morning. Plan: ?Patient completed antibiotic therapy, Meropenem, discontinued per ID Recommendations -repeat culture sensitivity grew yeast, patient is currently on antifungal will be continued -percutaneous abscess drain catheter placed 06/02 -Pending Abscess Culture from drain 06/02 ?Pain control Fentanyl 25 mcg every 6 hours as needed. And scheduled Mercer 5 mg every 6 hours ?disontinue with TPN 06/05 . Patient's diet is advanced to dysphagia 1 and have encouraged family members to bring home-cooked meals that patient would eat ?Continue dronabinol as appetite stimulator ?June 03, 2024: Patient was made n.p.o. by overnight team due to abdominal distention but we resumed her diet and p.o. medications. -accordian drains removed on 06/05 #New onset A-fib with RVR #NSTEMI type 2 -Likely secondary to shock in the setting of abdominal surgery -EKG findings consistent with A-fib -Was on Amiodarone 200 twice daily for new onset Afib, but as she was in AFib with RVR. Plan: ?Cardiology consulted, appreciate recs -Currently on oral amiodarone 200mg ? Holding eliquis 5mg BID for anticoagulation, in anticipation of procedure, will start heparin drip #Nutrition ?Patient noted to have poor appetite, is finishing less than 50% of her meals, was initially on TPN which is discontinued. -Added dronabinol as appetite stimulator #Acute tubular necrosis likely progressed to ESRD #Anuria -2/2 septic shock -Patient had small amount of urine production on 06/08 however this morning no urine yet -Baseline Cr appears to be 0.7 Plan: ?Patient underwent HD fluid removal and removed 2.1 L on 05/18 and 1.5 L on 05/19, 2L fluid removed 05/21, 2.5 L fluid removed on 05/22 , 3L fluid removed on 05/23, 3L fluid removed 05/25, 2L removed 05/26, 1 L removed 05/29, 1.5 L removed 05/30, 06/01 2L fluid removed. -permanent hemodialysis cath placed on 06/02/24 -Patient will require outpatient hemodialysis, dialysis chair secured by case management - Hemodialysis as per schedule. -Started on midodrine 10 mg BID as patient has difficulty tolerating dialysis, blood pressure drops. -Renally dose medications and avoid nephrotoxic agents -repeat labs in am -lasix 40mg daily -Nephrology following #Acute exacerbation of HFpEF # HFpEF EF 55 to 60% -echo 05/16 -estimated EF of 55 to 60%, stage I diastolic dysfunction noted, Moderate to severe posterior MAC -Pt presented with SOB and 2+ edema in LE -elevated BNP from 304 --> 1110 -HD in the setting of anuria -holding guideline directed medical therapy due to shock, will resume when able -Continue dialysis, as per nephrology recommendations #Acute Hypoxic Respiratory failure #fluid overload in the setting of ATN likely multifactorial -2/2 to pulmonary edema in the setting of volume overload 2/2 ATN due to shock leading to oligoanuria versus bibasilar pneumonia -Further complicated by bilateral lung atelectasis in the setting of recent abdominal surgery and sedatives use -Patient was intubated and on mechanical ventilation (05/15) and extubated 05/18/2024, currently saturating 95-97 % on 5 L NC -Duonebs prn -chest physiotherapy ordered -mucolytics ordered #Acute Upper GI bleed - stable -Most likely secondary to perforated gastric ulcer -Patient had a single episode of black tarry stool today-likely setting of recent abdominal surgery -Continue iv Protonix. -Will monitor for alarm signs of active bleeding with melena or hematochezia #Hx of Diabetes Mellitus type II - A1C 6.3 % 05/21/2024 - Hold home glipizide and januvia - Plan: Continue to monitor blood sugars - Insulin sliding scale ordered with lantus 12 units #Hyperlipidemia -Unclear if patient takes any medications as a statin is not on list of home meds #Primary Hypertension Holding on resuming home blood pressure medicines at this time #Acute blood loss anemia, stable 2/2 perforated ulcer- S/P surgical repair Hgb stable 9.6 Hct 28.3 patient received 2 units of pRBC 05/18 due to acutely drop in Hgb below 7. No signs of active bleeding. Plan: -Continue to monitor daily CBC. transfuse for hemoglobin less than 7. # Acute encephalopathy-resolved -Likely multifactorial secondary to sepsis versus metabolic versus neurologic versus medication -Patient is awake and alert and follows commands. Patient is able to respond to yes or no questions verbally #Shock - resolved #Hypoosmolar Hyponatremia, resolved Disposition: Telemetry DVT prophylaxis: Eliquis 5 mg twice daily anticoagulation for A-fib GI prophylaxis:Protonix 40 BID Diet: Dysphagia 1 diet CODE STATUS: Full Assessment and plan discussed with my attending physician Dr. Luis Enrique Rivera ([id number])- Internal medicine resident Attending Provider Attestation/Addendum I reviewed labs, imaging, EKG, home medications and prior available records. Face to face evaluation was performed by me. I have personally examined the patient and discussed assessment and plan with the IM team. I reviewed the resident note and agree with the plan with exceptions as below. Hospital-acquired pneumonia Sepsis due to pneumonia Perforated gastric ulcer Intra-abdominal abscess status post drain X2 ADILSON reaching hemodialysis point, dialysis dependent Atrial fibrillation with controlled ventricular rhythm Acute hypotension WBC is uptrending and patient is tachycardic. Ordered chest x-ray that showed bibasilar pneumonia. Restarted vancomycin/cefepime given the uptrending WBC Changed antifungal to micafungin. Appreciate ID recommendations Discussed with general surgery: Recommended IR guided drainage to rule out recurrence of abdominal abscess. IR consulted to drain the abscess Continue PPI. Not a candidate for PEG tube placement given her recent surgery Continue hemodialysis per nephrology schedule Continue amiodarone and Eliquis Encourage oral intake as TPN is weaned off. Ordered Marinol for appetite stimulation Held antihypertensive treatment given borderline BP
--- NOTE | 2024-06-12 09:14 | ESPR_ITS ---
Documentation for date of: 06/12/24 Subjective Subjective Interval history: 06/11/2024: Patient examined at bedside today. Telemetry reviewed and patient seems to be in 120s and 130s still in A-fib. Patient reports that she still experiencing some pain in her abdomen. Patient is likely going in higher heart rate because of uncontrolled pain, drainage to be done tomorrow. Patient's white count is 29 today, was started on Zosyn and Vanco. Patient's BUN/creatinine 53 and 5.6 respectively, will do dialysis tomorrow, dialysis yesterday at 1.5 L removed. Will continue to to try to control patient's pain and patient will need drainage with a goal of procedure to be tomorrow. Will add metoprolol as needed if patient's heart rate goes to the 150s. 06/12/2024: Pt examined at bedside today. Telemetry reviewed and pt appears to still be in fib, rate controlled in 120s. Pt reports she is still experiencing some abdominal pain, however it has been relatively controlled. I adjusted her positioning in her bed. She is agreeable with continuing abscess drainage. Her WBC count is going down, 23 today. BUN/Cr 74 and 7.0 respectively, potassium 5.1, Mg 2.4, dialysis should be done today, will touch base with nephrology team. Will continue current medicines with Amio, metoprolol, hep drip to be stopped before procedure. Exam Vital Signs Temp Pulse Resp BP Pulse Ox O2 Del Method O2 Flow Rate 97.2 F 98 30 H 110/81 97 Nasal Cannula 2 06/12/24 04:00 06/12/24 06:52 06/12/24 06:52 06/12/24 04:00 06/12/24 06:52 06/12/24 04:00 06/12/24 06:52 FiO2 4 06/10/24 16:00 Narrative Exam General: AAOx3, obese female, pt appears to be in some distress at this time, sitting up right HEENT: Moist mucous membranes, conjunctiva clear, EOMI, PERRLA, Cardiovascular: S1, S2, radial pulses +2 bilat, irregularly irregular rhythm, tachycardic Pulmonary: Wheezing heard in lungs bilat, congestion and cough GI: Bandages present, no ascites, mildly distended, tenderness upon palpitation in L quadrant Extremities: SCDs present, pitting edema in LE +2 bilat Neuro: AAOx3, no focal motor or sensory deficits in the UE or LE bilat Psych: Cooperative. Objective Labs 06/12/24 17:08 06/12/24 05:49 Labs: Laboratory Results - last 24 hr 06/11/24 06/11/24 06/11/24 07:20 13:51 21:48 WBC RBC Hgb Hct MCV MCH MCHC RDW Std Deviation Plt Count Neut % (Auto) Lymph % (Auto) Cascade % (Auto) Eos % (Auto) Baso % (Auto) Neut # (Auto) Lymph # (Auto) Cascade # (Auto) Eos # (Auto) Baso # (Auto) Immature Gran # (Auto) Absolute Nucleated RBC Immature Gran % Nucleated RBC % PT INR APTT 44.6 H D 69.5 H D Sodium Potassium Chloride Carbon Dioxide Anion Gap BUN Creatinine Estim Creat Clear Calc eGFR BUN/Creatinine Ratio Glucose Calculated Osmolality Calcium Corrected Calcium Magnesium 2.4 Total Bilirubin AST ALT Alkaline Phosphatase Total Protein Albumin Globulin Albumin/Globulin Ratio Random Vancomycin 06/12/24 05:49 WBC 22.9 H D RBC 3.09 L Hgb 8.1 L Hct 25.4 L MCV 82 MCH 26.2 MCHC 31.9 RDW Std Deviation 55.9 H Plt Count 297 D Neut % (Auto) 71 Lymph % (Auto) 16 Cascade % (Auto) 7 Eos % (Auto) 5 Baso % (Auto) 1 Neut # (Auto) 16.2 H Lymph # (Auto) 3.6 Cascade # (Auto) 1.6 H Eos # (Auto) 1.2 H Baso # (Auto) 0.1 Immature Gran # (Auto) 0.19 H Absolute Nucleated RBC 0.13 H Immature Gran % 1 H Nucleated RBC % 1 H PT 15.1 H INR 1.4 H APTT 38.4 H D Sodium 134 L Potassium 5.1 Chloride 96 L Carbon Dioxide 21.6 Anion Gap 16 BUN 74 H Creatinine 7.0 H* D Estim Creat Clear Calc 6.5 L eGFR 6 L* BUN/Creatinine Ratio 11 L Glucose 99 Calculated Osmolality 290 Calcium 9.5 Corrected Calcium 9.7 Magnesium Total Bilirubin 0.7 AST 12 ALT < 7 L Alkaline Phosphatase 116 Total Protein 7.6 Albumin 3.8 Globulin 3.8 H Albumin/Globulin Ratio 1.0 L Random Vancomycin 13.6 ABG Interpretation ABG results: 05/13/24 05/15/24 05/15/24 08:29 15:28 16:03 ABG pH 7.39 7.05 L* D 7.17 L* D ABG pCO2 31 L 63 H D 45 D ABG pO2 78 L 38 L* D 84 D ABG HCO3 19 L 18 L 16 L ABG O2 Saturation 96 59 L 96 ABG Base Excess -5 L -12 L -11 L VBG pH VBG pCO2 VBG pO2 VBG Base Excess 05/16/24 05/17/24 05/18/24 04:38 04:03 04:20 ABG pH 7.28 L D 7.38 D 7.49 H D ABG pCO2 34 D 28 L 30 L ABG pO2 96 85 66 L ABG HCO3 16 L 17 L 23 ABG O2 Saturation 98 97 94 ABG Base Excess -10 L -8 L 0 VBG pH VBG pCO2 VBG pO2 VBG Base Excess 05/19/24 05/20/24 05/21/24 09:05 06:05 22:35 ABG pH 7.30 L D 7.41 D ABG pCO2 49 H D 42 ABG pO2 63 L 63 L ABG HCO3 24 27 H ABG O2 Saturation 91 93 ABG Base Excess -3 2 VBG pH 7.31 L VBG pCO2 50 VBG pO2 39 VBG Base Excess -2 05/26/24 05/29/24 04:17 12:28 ABG pH 7.38 7.42 ABG pCO2 42 35 ABG pO2 81 L 67 L ABG HCO3 25 23 ABG O2 Saturation 97 95 ABG Base Excess 0 -2 VBG pH VBG pCO2 VBG pO2 VBG Base Excess Quality Measures Quality Measures none Advance care planning discussed with:: patient Assessment & Plan Assessment Current Active Medications: Generic Name Dose Route Start Last Admin Trade Name Freq PRN Reason Stop Dose Admin Acetaminophen 650 mg 06/09/24 14:11 Acetaminophen 325 Mg Tablet PO 07/09/24 14:10 Q6HR PRN Fever >101 and pain 1-3 Hydrocodone Bitart/Acetaminophen 1 tab 06/09/24 14:11 06/11/24 16:32 Hydrocodone/Apap 5/325 Tablet PO 06/14/24 14:10 1 tab Q4HR PRN Administration PAIN SCALE 4-10(Mod-Sev Albuterol/Ipratropium 3 ml 05/27/24 18:08 06/10/24 21:12 Albuterol/Ipratropium (Duoneb) Rt Jimena 3 Ml Nebu INH 06/26/24 18:07 3 ml Q2HR PRN Administration SHORTNESS OF BREATH OR WHEEZE Amiodarone HCl 200 mg 05/29/24 15:00 06/11/24 21:04 Amiodarone Hcl 200 Mg Tablet PO 06/28/24 14:59 200 mg BID ANGELICA Administration Benzocaine 1 lozenge 05/31/24 11:53 06/09/24 23:07 Benzocaine/Menthol 1 Lozenge PO 06/30/24 11:52 1 lozenge Q4HR PRN Administration Sore throat Dextrose 25 ml 05/24/24 15:43 Dextrose 50%-Water Inj 50 Ml Syringe IV 06/23/24 15:42 Q15MIN PRN BG 50-70 responsive npo pt Dextrose 50 ml 05/24/24 15:43 Dextrose 50%-Water Inj 50 Ml Syringe IV 06/23/24 15:42 Q15MIN PRN BG <50 OR BG <70 & pt unresponsive Dronabinol 5 mg 06/07/24 10:40 06/11/24 16:22 Dronabinol 2.5 Mg Capsule PO 07/07/24 10:39 5 mg BIDAC ANGELICA Administration Fluconazole 400 mg 06/11/24 09:00 06/11/24 09:52 Fluconazole 100 Mg Tablet PO 06/18/24 08:59 400 mg QDAY ANGELICA Administration Furosemide 40 mg 06/09/24 10:15 06/11/24 09:42 Furosemide Inj 10 Mg/Ml 4ml Vial IVP 07/09/24 10:14 Not Given QDAY ANGELICA Glucagon 1 mg 05/24/24 15:43 Glucagon Inj 1 Mg Vial IM Q15MIN PRN BG <70, and no IV access Guaifenesin 200 mg 06/10/24 08:30 06/12/24 05:39 Guaifenesin Syrup 200 Mg/10 Ml Udc PO 07/10/24 08:29 200 mg QID ANGELICA Administration Protocol Heparin Sodium (Porcine) 3,500 unit 06/07/24 18:06 06/10/24 20:38 Heparin Sod Inj 1000 Unit/Ml Vial 10 Ml INDWELLCAT 06/21/24 18:05 3,500 unit PRN PRN Administration DIALYSIS Piperacillin/Tazobactam/Dextrose 2.25 gm in 50 mls @ 100 mls/hr 06/10/24 12:10 06/12/24 05:39 Zosyn IV 06/17/24 12:09 100 mls/hr Q8HR ANGELICA Administration Heparin Sodium/Dextrose 25,000 unit in 250 mls @ 8.709 mls/hr 06/10/24 16:15 06/12/24 04:00 Heparin In D5w Ivpb IV 06/12/24 16:14 0 units/kg/hr .Q24H ANGELICA 0 mls/hr Titration Protocol 12 UNITS/KG/HR Micafungin Sodium 100 mg/ 100 mls @ 100 mls/hr 06/10/24 13:56 06/11/24 09:45 Sodium Chloride IV 06/25/24 13:55 100 mls/hr QDAY ANGELICA Administration Vancomycin/Sodium Chloride 200 mls @ 120 mls/hr 06/12/24 16:00 Vancomycin/Ns 1 Gm Ivpb IV 06/12/24 17:39 X1 ONE Insulin Glargine 12 unit 05/25/24 09:00 06/11/24 10:05 Insulin Glargine (Lantus) 5 Unit/0.05 Ml (Per 5 Units) SC 06/24/24 08:59 12 unit QDAY ANGELICA Administration Insulin Human Lispro 0 unit 05/24/24 18:00 06/12/24 05:24 Insulin Lispro (Admelog) 1 Unit/0.01 Ml Unit SC 06/23/24 17:59 Not Given Q6HR [facility] Protocol Lidocaine 1 patch 05/30/24 09:16 06/01/24 19:01 Lidocaine 5% 1 Patch TOP 06/29/24 09:15 1 patch DAILY PRN Administration BACK PAIN Metoprolol Succinate 50 mg 06/09/24 21:05 06/11/24 09:32 Metoprolol Succinate Xl 25 Mg Tabcr PO 07/09/24 21:04 Not Given QDAY ANGELICA Metoprolol Succinate 50 mg 06/11/24 14:03 Metoprolol Succinate Xl 25 Mg Tabcr PO 07/12/24 08:59 QDAY PRN Tachycardia above 150 Midodrine 10 mg 06/07/24 21:00 06/11/24 21:05 Midodrine 5 Mg Tablet PO 07/07/24 20:59 10 mg BID ANGELICA Administration Mirtazapine 15 mg 06/09/24 09:00 06/11/24 09:52 Mirtazapine 15 Mg Tablet PO 07/09/24 08:59 15 mg QDAY ANGELICA Administration Ondansetron HCl 4 mg 05/13/24 11:58 05/14/24 12:31 Ondansetron Inj 2 Mg/Ml Inj 2 Ml IV 06/12/24 11:57 4 mg Q6H PRN Administration NAUSEA OR VOMITING Protocol Pantoprazole Sodium 40 mg 05/15/24 21:00 06/11/24 21:06 Pantoprazole Inj 40 Mg Vial IVP 06/14/24 20:59 40 mg BID ANGELICA Administration Pharmacy Consult 1 each 05/16/24 10:27 Pharmacy Renal Dose Adjustment 1 Ea XX 06/15/24 10:26 PRN PRN CONSULT Pharmacy Consult 1 each 06/10/24 12:15 Vancomycin Pharmacy To Dose 1 Each Each IV 07/10/24 12:14 QDAY PRN CONSULT Polyethylene Glycol 17 gm 06/09/24 10:45 06/11/24 21:06 Polyethylene Glycol 17 Gm Packet PO 07/09/24 10:44 17 gm BID ANGELICA Administration Sennosides 1 tab 06/09/24 10:45 06/11/24 09:52 Senna Tablet PO 07/09/24 10:44 1 tab QDAY ANGELICA Administration Protocol Sodium Chloride 3 ml 05/24/24 19:00 Sodium Chloride Rt Jimena 0.9% 3 Ml Nebu INH 06/23/24 18:59 PRN PRN SOLN Timolol Maleate 1 drop 05/28/24 18:15 06/11/24 09:49 Timolol Op Jimena 0.5% 5 Ml Btl BOTH EYES 06/27/24 18:14 1 drop DAILY ANGELICA Administration Plan Assessment Ms. Castellanos is a 69-year-old female with past medical history significant for hypertension, diabetes and history of gastric ulcers who presented to the ED on 05/13/2024 after she was found unconscious on the floor. Per chart reviewing prior to this unconsciousness patient was having abdominal pain and generalized weakness with diarrhea and shortness of breath for 2 days. Patient was admitted to the hospital for treatment and management of sepsis secondary to pneumonia. Patient was given 1 L normal saline and started on ceftriaxone and azithromycin. patient underwent ex lap surgery for perforated gastric ulcer. Patient remained intubated postop and was upgraded to the ICU. Patient continues to be on dialysis after downgrade, has BALAJI and accordion drain intact, completed bowel rest, was started on dysphagia 1 diet, surgery following case closely, will continue to monitor. #New onset A-fib with RVR, improving New onset of Afib, likely related to septic shock requiring pressor support and increased demand from perforated ulcer complicated by abdominal abscesses Pt appears to still be in A-fib, rate controlled, 90s to mid 100s Previous EKG shows a-fib w/RVR CHADVASC: 5 Pts 7.2 % stroke risk per year HAS-BLED score: 3, high risk of major bleeding Patient in the 120s today, IR abscess drainage today, this should bring down pt's HR Plan: ?Continue with Oral Amio 200 mg BID ?Continue with metoprolol XL 50 ?Adding metoprolol XL 50 as needed for heart rate above 150 and if BP is permissible. ?Continue with heparin drip #Acute exacerbation of HFpEF #HFpEF EF 55 to 60% #History of primary hypertension -Echo 05/16/2024 -estimated EF of 55 to 60%, stage I diastolic dysfunction noted, Moderate to severe posterior MAC Pt has new onset of ESRD requiring HD, requiring midodrine 10 mg QID to tolerate HD Not resuming home amlodipine at this time due to patient being A-fib and blood pressure eventually be controlled with beta-christian We recommend to give midodrine 5 to 10 mg 15 to 30 minutes before dialysis, can give additional 2.5 to 5 mg after dialysis as long as 3 hours after predialysis dose Half-life of midodrine is 9 to 10 hours and patient with CKD something to keep in mind Plan: ?Resume GDMT as able, metoprolol on board right now, as above ?Fluid restriction ?Daily weights ?Strict ins and outs ?Keep potassium and magnesium above 4 and 2 respectively #Hx of Diabetes Mellitus type II Most recent A1c 05/21/2024: 6.2 Plan: Management by primary team #Perforated gastric ulcer #Pneumoperitoneum #Peritonitis secondary to perforated gastric ulcer #Abdominal Abscess, s/p percutaneous drainage x3 Patient found to have tender abdomen, rigidity in the epigastrium, chest x-ray showed elevation of hemidiaphragm, CT abdomen showed pneumoperitoneum, concern for perforated viscus, general surgeon Dr. Santana was consulted for emergency laparotomy and possible repair of perforated gastric ulcer. Repeat CT abd/pel on 05/20 revealed Pneumoperitoneum, orogastric tube in the stomach, mild free fluid adjacent to the stomach and anterior to the pancreas. s/p Exploratory laparotomy & repair of perforated gastric ulcer - 05/15. 06/01/24: Overnight there was concern of wound dehiscence. Discussed with general surgeon per surgery superior aspect of the wound was dehiscent after removal of aixa.Surgery removal of BALAJI drain on 06/01. Repeat CT on 06/01- More pronounced fluid collection in the left abdomen below the spleen, 8.9 x 6.4cm, free fluid in the abdomen and pelvis, and Ascites -Abscess culture from 05/25 grew edna albicans ?Repeat CT abdomen pelvis shows abscess collection lower left abdomen has markedly decreased in size and the accordion drains have no output this morning Repeat CT A/P 06/10/2024 show multiple abscess, will need to drain Plan: Management by primary hospitalist team, drainage on wednesday, will stop heparin drip then #Acute blood loss anemia, stable Likely related to perforated ulcer Hgb stable ~10 Plan: Management by primary hospitalist team #Acute tubular necrosis, requiring hemodialysis #Acute Hypoxic Respiratory failure #Acute Upper GI bleed - stable #Hyperlipidemia #Acute blood loss anemia, stable #Acute encephalopathy-resolved #Septic Shock - resolved #Hypoosmolar Hyponatremia, resolved Above managed by primary hospitalist team Patient seen and care discussed with my attending physician, Dr. Susan Mathews, PGY-1 Attending Provider Attestation/Addendum I have personally seen and examined the patient separately on the above date of service and discussed the plan of care with the resident. I reviewed the resident Dr. Hernandes consultation progress note and agree with the resident findings and plan in the note above and have also edited the documentation to reflect my findings and plan. Jalen Davis M.D. Interventional Cardiology
[2024-06-12 09:32] LABS: Magnesium 2.4 mg/dL (1.6-2.6); Phosphorous 8.1 mg/dL (2.4-5.1)
[2024-06-12] MEDS: TIMOLOL OP SOL 0.5% 5 ML BTL 1 DROP BOTH EYES (09:32)
[2024-06-12] MEDS: MICAFUNGIN SODIUM INJ 100 MG in SODIUM CHLORIDE 0.9% 100 ML IV (09:33)
[2024-06-12] MEDS: PANTOPRAZOLE INJ 40 MG VIAL IVP ×2 (09:33→21:48)
[2024-06-12] MEDS: MIDODRINE 5 MG TABLET 10 MG PO ×2 (09:33→14:49)
[2024-06-12] MEDS: MIRTAZAPINE 15 MG TABLET PO (09:44)
--- NOTE | 2024-06-12 09:57 | PC.SS ---
Follow up note: Pt developed another abscess and is requiring abscess to be drained. Pt is on IV antibiotic. SS has informed Monie at Dialysis and Ebony from [facility] pt will not be d/c today and possibly will require couple more days at the hospital. SS will contact Dialysis when pt is d/c.
--- NOTE | 2024-06-12 10:24 | ESPR_ITS ---
Documentation for date of: 06/12/24 Subjective Subjective Interval history: Mr. Castellanos is a [id number] with past medical history of prediabetes, CKD, hypertension, history of ulcers who was admitted to [facility] for sepsis secondary to pneumonia and acute metabolic encephalopathy. Patient was BIBA to the ED after being found unconscious on the floor. According to the son on admission patient's daughter found the patient at 3 AM passed out on the floor and unresponsive. Family is unaware along the patient was on the floor. 2 days ago patient started to develop abdominal pain and weakness all over her body associated with some diarrhea and shortness of breath. Patient's abdominal pain comes and goes from right side to left side of the abdomen. ED course patient was hypertensive tachycardic tachypneic and was saturating 92% on 5 L nasal cannula ED labs significant for WBCs 24.3, bicarb 19.6, glucose 259, lactic acid 2.2, BNP 304, troponin 0.09. 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, colonic diverticulosis, Cervical spine CT showed 3 mm radiolucency in C3 vertebral body Chest CTA showed mild aneurysmal dilatation ascending thoracic aorta AP dimension 4.3 cm and pulmonary artery hypertension with moderate vascular congestion Face CT shows no acute facial fracture, Lumbar spine CT shows no acute lumbar fracture severe acquired spinal stenosis L4-L5, Thoracic spine CT showed no acute fracture Brain MRI with MRA showed equally focal restricted diffusion brainstem medullary level significant stenosis of right P1 P2 segment posterior cerebral artery Postadmission, cardiology was consulted on admission because of elevated troponins, suspicion of NSTEMI type II, patient has acute decompensated heart failure per cardiology evaluation, neurology consulted because of patient's acute metabolic encephalopathy and GI was consulted for suspicion of GI bleed. Eventually on 05/15 rapid response was called for worsening chest pain, patient's map was consistently in 70s, was tachycardic tachypneic. CT angiogram showed pneumoperitoneum multiple air droplets adjacent to and within wall of stomach with suspicion of gastric perforation. General surgery was consulted for emergency surgery and patient had exploratory laparotomy with repair of perforated gastric ulcer with an omental patch. Patient was upgraded to ICU postop for further management patient currently on Levophed and vasopressor due to distributive shock, currently sedated and intubated on mechanical ventilation. Nephrology consulted due to concern of ADILSON. 06/10/2024 patient currently seen in telemetry. Patient complaining of abdominal pain. Scheduled for dialysis today. Although did have some trouble with catheter before. tPA was placed. Catheter could not be exchanged yesterday. Will monitor catheter function closely. Unfortunately IR not available until Wednesday. 06/11/2024 patient currently seen in telemetry. Sick looking. Did receive dialysis yesterday. Still having some abdominal discomfort.WBC 28.7, hemoglobin 7.8, platelets 261. Sodium 134, potassium 4.8, BUN 53, creatinine 5.6, magnesium 2.4, LFTs normal, albumin 4.0 chest x-ray showed pneumonia/mild heart failure. CT abdomen repeat showed multiple abdominal and pelvic abscesses. Prognosis remains guarded. 06/12/2024 patient was seen and examined at bedside. Patient appears to be fluid overloaded, saturating 97% on 2 L of oxygen, blood pressure of 93/67, pulse rate of 97. her WBC downtrended from 28.7-22.9, CT scan was repeated on the and it showed multiple intra-abdominal abscesses. Hemoglobin stable at 8.1, serum sodium 134, calcium 5.1, BUN of 74 uptrending, serum creatinine increased from 5.67, glucose 99, calcium 9.5, phosphate 8.1. Urine output documented as 0. Today patient is scheduled for dialysis. Exam Vital Signs Temp Pulse Resp BP Pulse Ox O2 Del Method O2 Flow Rate 97.7 F 97 22 H 93/67 97 Nasal Cannula 2 06/12/24 08:00 06/12/24 09:33 06/12/24 08:00 06/12/24 09:33 06/12/24 08:00 06/12/24 08:00 06/12/24 08:00 FiO2 4 06/10/24 16:00 Narrative Exam PatientGEN: AOx3, flat mood and affect, in semi-sitting position HEENT: NC/AC, oral mucosa moist, neck supple CVS: RRR, S1-S2 present, no murmurs appreciated RESP: Mild wheezing bilaterally, coarse crepitations GI: soft,non distended, non tender, NBS MSK: able to move all 4 limbs however significant generalized weakness, +3 on the right side, lower extremity edema +230 mm of the left side. SKIN: warm and dry REFRIGERATION INSTALLER: CN II-XII and Sensation grossly intact. Objective Labs 06/13/24 04:30 06/13/24 04:30 Labs: Laboratory Results - last 24 hr 06/11/24 06/11/24 06/11/24 07:20 13:51 21:48 WBC RBC Hgb Hct MCV MCH MCHC RDW Std Deviation Plt Count Neut % (Auto) Lymph % (Auto) Sac % (Auto) Eos % (Auto) Baso % (Auto) Neut # (Auto) Lymph # (Auto) Sac # (Auto) Eos # (Auto) Baso # (Auto) Immature Gran # (Auto) Absolute Nucleated RBC Immature Gran % Nucleated RBC % PT INR APTT 44.6 H D 69.5 H D Sodium Potassium Chloride Carbon Dioxide Anion Gap BUN Creatinine Estim Creat Clear Calc eGFR BUN/Creatinine Ratio Glucose Calculated Osmolality Calcium Corrected Calcium Phosphorus Magnesium 2.4 Total Bilirubin AST ALT Alkaline Phosphatase Total Protein Albumin Globulin Albumin/Globulin Ratio Random Vancomycin 06/12/24 05:49 WBC 22.9 H D RBC 3.09 L Hgb 8.1 L Hct 25.4 L MCV 82 MCH 26.2 MCHC 31.9 RDW Std Deviation 55.9 H Plt Count 297 D Neut % (Auto) 71 Lymph % (Auto) 16 Sac % (Auto) 7 Eos % (Auto) 5 Baso % (Auto) 1 Neut # (Auto) 16.2 H Lymph # (Auto) 3.6 Sac # (Auto) 1.6 H Eos # (Auto) 1.2 H Baso # (Auto) 0.1 Immature Gran # (Auto) 0.19 H Absolute Nucleated RBC 0.13 H Immature Gran % 1 H Nucleated RBC % 1 H PT 15.1 H INR 1.4 H APTT 38.4 H D Sodium 134 L Potassium 5.1 Chloride 96 L Carbon Dioxide 21.6 Anion Gap 16 BUN 74 H Creatinine 7.0 H* D Estim Creat Clear Calc 6.5 L eGFR 6 L* BUN/Creatinine Ratio 11 L Glucose 99 Calculated Osmolality 290 Calcium 9.5 Corrected Calcium 9.7 Phosphorus 8.1 H Magnesium 2.4 Total Bilirubin 0.7 AST 12 ALT < 7 L Alkaline Phosphatase 116 Total Protein 7.6 Albumin 3.8 Globulin 3.8 H Albumin/Globulin Ratio 1.0 L Random Vancomycin 13.6 ABG Interpretation ABG results: 05/13/24 05/15/24 05/15/24 08:29 15:28 16:03 ABG pH 7.39 7.05 L* D 7.17 L* D ABG pCO2 31 L 63 H D 45 D ABG pO2 78 L 38 L* D 84 D ABG HCO3 19 L 18 L 16 L ABG O2 Saturation 96 59 L 96 ABG Base Excess -5 L -12 L -11 L VBG pH VBG pCO2 VBG pO2 VBG Base Excess 05/16/24 05/17/24 05/18/24 04:38 04:03 04:20 ABG pH 7.28 L D 7.38 D 7.49 H D ABG pCO2 34 D 28 L 30 L ABG pO2 96 85 66 L ABG HCO3 16 L 17 L 23 ABG O2 Saturation 98 97 94 ABG Base Excess -10 L -8 L 0 VBG pH VBG pCO2 VBG pO2 VBG Base Excess 05/19/24 05/20/24 05/21/24 09:05 06:05 22:35 ABG pH 7.30 L D 7.41 D ABG pCO2 49 H D 42 ABG pO2 63 L 63 L ABG HCO3 24 27 H ABG O2 Saturation 91 93 ABG Base Excess -3 2 VBG pH 7.31 L VBG pCO2 50 VBG pO2 39 VBG Base Excess -2 05/26/24 05/29/24 04:17 12:28 ABG pH 7.38 7.42 ABG pCO2 42 35 ABG pO2 81 L 67 L ABG HCO3 25 23 ABG O2 Saturation 97 95 ABG Base Excess 0 -2 VBG pH VBG pCO2 VBG pO2 VBG Base Excess Quality Measures Quality Measures none Advance care planning discussed with:: patient Assessment & Plan Assessment Current Active Medications: Generic Name Dose Route Start Last Admin Trade Name Freq PRN Reason Stop Dose Admin Acetaminophen 650 mg 06/09/24 14:11 Acetaminophen 325 Mg Tablet PO 07/09/24 14:10 Q6HR PRN Fever >101 and pain 1-3 Hydrocodone Bitart/Acetaminophen 1 tab 06/09/24 14:11 06/11/24 16:32 Hydrocodone/Apap 5/325 Tablet PO 06/14/24 14:10 1 tab Q4HR PRN Administration PAIN SCALE 4-10(Mod-Sev Albuterol/Ipratropium 3 ml 05/27/24 18:08 06/10/24 21:12 Albuterol/Ipratropium (Duoneb) Rt Jimena 3 Ml Nebu INH 06/26/24 18:07 3 ml Q2HR PRN Administration SHORTNESS OF BREATH OR WHEEZE Amiodarone HCl 200 mg 05/29/24 15:00 06/12/24 09:24 Amiodarone Hcl 200 Mg Tablet PO 06/28/24 14:59 Not Given BID ANGELICA Benzocaine 1 lozenge 05/31/24 11:53 06/09/24 23:07 Benzocaine/Menthol 1 Lozenge PO 06/30/24 11:52 1 lozenge Q4HR PRN Administration Sore throat Dextrose 25 ml 05/24/24 15:43 Dextrose 50%-Water Inj 50 Ml Syringe IV 06/23/24 15:42 Q15MIN PRN BG 50-70 responsive npo pt Dextrose 50 ml 05/24/24 15:43 Dextrose 50%-Water Inj 50 Ml Syringe IV 06/23/24 15:42 Q15MIN PRN BG <50 OR BG <70 & pt unresponsive Dronabinol 5 mg 06/07/24 10:40 06/12/24 09:24 Dronabinol 2.5 Mg Capsule PO 07/07/24 10:39 Not Given BIDAC ANGELICA Fluconazole 400 mg 06/11/24 09:00 06/12/24 09:25 Fluconazole 100 Mg Tablet PO 06/18/24 08:59 Not Given QDAY ANGELICA Furosemide 40 mg 06/09/24 10:15 06/12/24 09:25 Furosemide Inj 10 Mg/Ml 4ml Vial IVP 07/09/24 10:14 Not Given QDAY ANGELICA Glucagon 1 mg 05/24/24 15:43 Glucagon Inj 1 Mg Vial IM Q15MIN PRN BG <70, and no IV access Guaifenesin 200 mg 06/10/24 08:30 06/12/24 05:39 Guaifenesin Syrup 200 Mg/10 Ml Udc PO 07/10/24 08:29 200 mg QID ANGELICA Administration Protocol Heparin Sodium (Porcine) 3,500 unit 06/07/24 18:06 06/10/24 20:38 Heparin Sod Inj 1000 Unit/Ml Vial 10 Ml INDWELLCAT 06/21/24 18:05 3,500 unit PRN PRN Administration DIALYSIS Piperacillin/Tazobactam/Dextrose 2.25 gm in 50 mls @ 100 mls/hr 06/10/24 12:10 06/12/24 05:39 Zosyn IV 06/17/24 12:09 100 mls/hr Q8HR ANGELICA Administration Heparin Sodium/Dextrose 25,000 unit in 250 mls @ 8.709 mls/hr 06/10/24 16:15 06/12/24 04:00 Heparin In D5w Ivpb IV 06/12/24 16:14 0 units/kg/hr .Q24H ANGELICA 0 mls/hr Titration Protocol 12 UNITS/KG/HR Micafungin Sodium 100 mg/ 100 mls @ 100 mls/hr 06/10/24 13:56 06/12/24 09:33 Sodium Chloride IV 06/25/24 13:55 100 mls/hr QDAY ANGELICA Administration Vancomycin/Sodium Chloride 200 mls @ 120 mls/hr 06/12/24 16:00 Vancomycin/Ns 1 Gm Ivpb IV 06/12/24 17:39 X1 ONE Insulin Glargine 12 unit 05/25/24 09:00 06/12/24 09:41 Insulin Glargine (Lantus) 5 Unit/0.05 Ml (Per 5 Units) SC 06/24/24 08:59 Not Given QDAY [facility] Insulin Human Lispro 0 unit 05/24/24 18:00 06/12/24 05:24 Insulin Lispro (Admelog) 1 Unit/0.01 Ml Unit SC 06/23/24 17:59 Not Given Q6HR [facility] Protocol Lidocaine 1 patch 05/30/24 09:16 06/01/24 19:01 Lidocaine 5% 1 Patch TOP 06/29/24 09:15 1 patch DAILY PRN Administration BACK PAIN Metoprolol Succinate 50 mg 06/09/24 21:05 06/12/24 09:25 Metoprolol Succinate Xl 25 Mg Tabcr PO 07/09/24 21:04 Not Given QDAY ANGELICA Metoprolol Succinate 50 mg 06/11/24 14:03 Metoprolol Succinate Xl 25 Mg Tabcr PO 07/12/24 08:59 QDAY PRN Tachycardia above 150 Midodrine 10 mg 06/07/24 21:00 06/12/24 09:33 Midodrine 5 Mg Tablet PO 07/07/24 20:59 10 mg BID ANGELICA Administration Mirtazapine 15 mg 06/09/24 09:00 06/12/24 09:44 Mirtazapine 15 Mg Tablet PO 07/09/24 08:59 15 mg QDAY ANGELICA Administration Ondansetron HCl 4 mg 05/13/24 11:58 05/14/24 12:31 Ondansetron Inj 2 Mg/Ml Inj 2 Ml IV 06/12/24 11:57 4 mg Q6H PRN Administration NAUSEA OR VOMITING Protocol Pantoprazole Sodium 40 mg 05/15/24 21:00 06/12/24 09:33 Pantoprazole Inj 40 Mg Vial IVP 06/14/24 20:59 40 mg BID ANGELICA Administration Pharmacy Consult 1 each 05/16/24 10:27 Pharmacy Renal Dose Adjustment 1 Ea XX 06/15/24 10:26 PRN PRN CONSULT Pharmacy Consult 1 each 06/10/24 12:15 Vancomycin Pharmacy To Dose 1 Each Each IV 07/10/24 12:14 QDAY PRN CONSULT Polyethylene Glycol 17 gm 06/09/24 10:45 06/12/24 09:26 Polyethylene Glycol 17 Gm Packet PO 07/09/24 10:44 Not Given BID ANGELICA Sennosides 1 tab 06/09/24 10:45 06/12/24 09:26 Senna Tablet PO 07/09/24 10:44 Not Given QDAY ANGELICA Protocol Sodium Chloride 3 ml 05/24/24 19:00 Sodium Chloride Rt Jimena 0.9% 3 Ml Nebu INH 06/23/24 18:59 PRN PRN SOLN Timolol Maleate 1 drop 05/28/24 18:15 06/12/24 09:32 Timolol Op Jimena 0.5% 5 Ml Btl BOTH EYES 06/27/24 18:14 1 drop DAILY ANGELICA Administration Plan Mr. Castellanos is a [id number] with past medical history of prediabetes, CKD, hypertension, history of ulcers who was admitted to [facility] for sepsis secondary to pneumonia and acute metabolic encephalopathy. Patient is currently sedated intubated in ICU status post exploratory laparotomy with repair of perforated gastric ulcer with an omental patch. Nephrology consulted for acute kidney injury. Assessment and plan #Acute kidney injury on dialysis M/W/F #Acute Tubular Necrosis 2/2 shock # Fluid overload Patient currently seems to be in ATN probably ischemic from fluctuations in blood pressure and underlying shock- started her on dialysis. Plan ?Dialysis today as per schedule ?Pharmacy to dose medications ? Avoid nephrotoxic medications ? Continue strict in and out ? Recommend to monitor fluid that was brought from home as it may contain high salt which may worsen her fluid overload. #Acute ischemic stroke #Acute decompensated HF #Hyperlipidemia #Primary Hypertension #Acute Hypoxic Respiratory failure #Peritonitis secondary to perforated gastric ulcer- s/p sx, drains removed #Acute Upper GI bleed #Diabetes Mellitus type II #Acute anemia Plan ? Follow-up with the primary team recommendations Thank you for your consultation, please do not hesitate to reach out if you have any concerns or questions. All above problems per primary team. Prognosis remains guarded. - Patient's plan and care discussed with my attending, Dr. Mata Sifuentes MD Internal Medicine PGY-2 Attending Provider Attestation/Addendum Patient seen and examined with resident physician Dr. Barton. Note reviewed, agree with findings and recommendations. Patient on dialysis. Tolerating dialysis without any problems. She has left IJ PermCath. Hemodialysis for 3 hours, 2K, ultrafiltration 2-3 L, Epogen 6000, no heparin ordered. Plan of care discussed with the dialysis nurse. Please see dialysis flowsheet for further details.
--- NOTE | 2024-06-12 11:30 | XR_ITS ---
Examination: CT-guided percutaneous catheter drainage left lower abdomen abscess CT abdomen and pelvis without intravenous contrast to assess Date and time of procedure: June 12, 2024 1420 hours INDICATIONS: Left lower abdomen abscess requiring drainage , Abdominal pain and fever Informed consent provided. A timeout was completed verifying correct patient, procedure, site and positioning. Technique: Axial 3 mm sections were obtained for localization of the left lower abdomen abscess Appropriate area is marked. The patient's site was prepped and draped in sterile fashion Maximal sterile barrier technique utilized, including hand hygiene Local anesthesia was obtained with 1% lidocaine. Low dose protocols were performed. One or more of the following dose reduction techniques were used; automated exposure control, adjustment of the mA and/or KV according to patient size, use of iterative reconstruction technique. Utilizing CT fluoroscopic guidance 5 Austrian catheter placed in the abscess in the left lower abdomen 8 cc grossly purulent material removed for culture and sensitivity Patient appears in stable condition during this procedure. At completion of the procedure, the patient is in satisfactory condition. Estimated blood loss 0 cc Complete pathology report to follow. Impression: Successful CT-guided percutaneous catheter drainage left lower abdomen abscess
[2024-06-12] MEDS: FLUCONAZOLE 100 MG TABLET 400 MG PO (11:31)
--- NOTE | 2024-06-12 11:57 | PC.NURSE ---
Patient being transported to lab engineer via sandeep Mock CNA. Patient awake, alert and oriented with no signs of acute distress.
--- NOTE | 2024-06-12 13:59 | XR_ITS ---
Examination: CT abdomen and pelvis without contrast. Coronal 3-D reconstructions. Sagittal 2-D reconstructions. Date and time of exam:June 12, 2024 1401 hours Comparison June 10, 2024 INDICATIONS: History abdominal pelvic abscesses on CT abdomen pelvis June 10, 2024 CTDI: vol (mGy): 20.5 DLP: (mGycm): 1097 Technique: Axial images of the abdomen have been obtained, 3 mm slice thickness Intravenous contrast material has not been administered. Low dose protocols were performed. One or more of the following dose reduction techniques were used; automated exposure control, adjustment of the mA and/or KV according to patient size, use of iterative reconstruction technique. Findings: Pneumonia left base Small bilateral pleural effusions No focal liver or splenic lesion Distended gallbladder Abscess in the left lower abdomen is noted, measuring 4.3 cm in dimension Much smaller pelvic abscess on this study, 24 mm not amenable to catheter placement IMPRESSION: Abscess in the left lower abdomen is amenable to CT-guided catheter drainage
[2024-06-12] MEDS: SODIUM CHLORIDE 0.9% 250 ML 250 ML 999 ML IV (14:14)
--- NOTE | 2024-06-12 15:05 | PC.NURSE ---
Patient returned from cathlab via sandeep Lara RN. Patient awake alert and oriented with a small band aid at site of insertion. Band aid clean, dry and intact.
--- NOTE | 2024-06-12 15:06 | PD.IMPROG ---
Documentation for date of: 06/12/24 Subjective Subjective Interval history: Patient evaluated P.o. intake remains an issue On hemodialysis Exam Vital Signs Temp Pulse Resp BP Pulse Ox O2 Del Method O2 Flow Rate 97.3 F 102 H 20 116/76 96 Nasal Cannula 3 06/12/24 11:36 06/12/24 14:49 06/12/24 14:40 06/12/24 14:49 06/12/24 14:40 06/12/24 14:40 06/12/24 14:40 FiO2 4 06/10/24 16:00 Constitutional Comments: Chronically ill Routine Respiratory Exam Comments: Scattered rhonchi Routine Abdominal Exam Comments: Positive bowel sounds Objective Labs 06/12/24 05:49 06/12/24 05:49 Labs: Laboratory Results - last 24 hr 06/11/24 06/12/24 21:48 05:49 WBC 22.9 H D RBC 3.09 L Hgb 8.1 L Hct 25.4 L MCV 82 MCH 26.2 MCHC 31.9 RDW Std Deviation 55.9 H Plt Count 297 D Neut % (Auto) 71 Lymph % (Auto) 16 [place] % (Auto) 7 Eos % (Auto) 5 Baso % (Auto) 1 Neut # (Auto) 16.2 H Lymph # (Auto) 3.6 [place] # (Auto) 1.6 H Eos # (Auto) 1.2 H Baso # (Auto) 0.1 Immature Gran # (Auto) 0.19 H Absolute Nucleated RBC 0.13 H Immature Gran % 1 H Nucleated RBC % 1 H PT 15.1 H INR 1.4 H APTT 69.5 H D 38.4 H D Sodium 134 L Potassium 5.1 Chloride 96 L Carbon Dioxide 21.6 Anion Gap 16 BUN 74 H Creatinine 7.0 H* D Estim Creat Clear Calc 6.5 L eGFR 6 L* BUN/Creatinine Ratio 11 L Glucose 99 Calculated Osmolality 290 Calcium 9.5 Corrected Calcium 9.7 Phosphorus 8.1 H Magnesium 2.4 Total Bilirubin 0.7 AST 12 ALT < 7 L Alkaline Phosphatase 116 Total Protein 7.6 Albumin 3.8 Globulin 3.8 H Albumin/Globulin Ratio 1.0 L Random Vancomycin 13.6 Impressions Impression: # Gastric perforation requiring exploration # end-stage renal disease with hemodialysis # Poor p.o. intake ABG Interpretation ABG results: 1205/15/24 05/15/24 08:29 15:28 16:03 ABG pH 7.39 7.05 L* D 7.17 L* D ABG pCO2 31 L 63 H D 45 D ABG pO2 78 L 38 L* D 84 D ABG HCO3 19 L 18 L 16 L ABG O2 Saturation 96 59 L 96 ABG Base Excess -5 L -12 L -11 L VBG pH VBG pCO2 VBG pO2 VBG Base Excess 05/16/24 05/17/24 05/18/24 04:38 04:03 04:20 ABG pH 7.28 L D 7.38 D 7.49 H D ABG pCO2 34 D 28 L 30 L ABG pO2 96 85 66 L ABG HCO3 16 L 17 L 23 ABG O2 Saturation 98 97 94 ABG Base Excess -10 L -8 L 0 VBG pH VBG pCO2 VBG pO2 VBG Base Excess 05/19/24 05/20/24 05/21/24 09:05 06:05 22:35 ABG pH 7.30 L D 7.41 D ABG pCO2 49 H D 42 ABG pO2 63 L 63 L ABG HCO3 24 27 H ABG O2 Saturation 91 93 ABG Base Excess -3 2 VBG pH 7.31 L VBG pCO2 50 VBG pO2 39 VBG Base Excess -2 05/26/24 05/29/24 04:17 12:28 ABG pH 7.38 7.42 ABG pCO2 42 35 ABG pO2 81 L 67 L ABG HCO3 25 23 ABG O2 Saturation 97 95 ABG Base Excess 0 -2 VBG pH VBG pCO2 VBG pO2 VBG Base Excess Assessment & Plan A&P Narrative abd abscess, stain neg. later grew c albicans so on flucon now here since 05/13.usual rx for most things is 7d. left on merrem thru weekend but collection in abd eventually grew a yeast, so ok for another 7d rx will see again if requested Time Spent With Patient Time: Total time spent is greater than 50% in coordination of care (as documented) at patient's floor/unit and/or counseling patient:
[2024-06-12 15:18] LABS: Lactate (Lactic Acid) 1.5 mMol/L (0.4-2.0)
--- NOTE | 2024-06-12 15:25 | PC.NURSE ---
Patient transported to dialysis via bed per loss control technician.
[2024-06-12] MEDS: EPOETIN ALFA-EPBX INJ 40,000 UNIT/ML VIAL (ESRD) 10000 UNIT SC (16:02)
[2024-06-12 16:17] LABS: Cult AFB Sendout- Not Sputum* See Sep Rpt
--- NOTE | 2024-06-12 17:03 | PC.NURSE ---
Tx discontinue with 2 hrs left on HD due to extracorporeal circuit clotted. Unable to return blood. Pt lost approximately [address] August made aware ordered H&H and to re-schedule HD tomorrow. Able to remove 200 ml of fluid net. Post tx BP 104/51, HR 107, Temp 97.5, Os sat 97% on O2 at 3L/min via nc. Pt back in her room. Report given to Maricarmen SPARKS.
[2024-06-12 17:31] LABS: Hematocrit 24.7 % (36.0-46.0)
--- NOTE | 2024-06-12 17:35 | PC.NURSE ---
Per Dr. Nilo wilkinson to resume patients diet. Order placed.
[2024-06-12] MEDS: VANCOMYCIN/NS 1 GM IVPB 200 ML IV (17:36)
[2024-06-12 17:41] LABS: Hemoglobin 7.8 g/dL (12.0-16.0)
[2024-06-12] MEDS: droNABinol 2.5 MG CAPSULE 5 MG PO (17:42)
[2024-06-12] MEDS: ACETAMINOPHEN 325 MG TABLET 650 MG PO (17:42)
--- NOTE | 2024-06-12 19:24 | PC.NURSE ---
2118: Per Dr. Irma coronado to restart Hep gtt.
[2024-06-12] MEDS: Heparin/D5w 25K 250 ML Ivpb 25,000 UNIT/250 ML BAG 9.732 UNIT IV (19:55)
[2024-06-12] MEDS: MIDODRINE 5 MG TABLET PO (21:47)
[2024-06-12] MEDS: AMIODARONE HCL 200 MG TABLET PO (21:47)
--- NOTE | 2024-06-12 23:16 | PD.NEUROPROG ---
Documentation for date of: 06/12/24 Subjective Subjective Interval history: Patient was seen in telemetry today at the bedside, not much respiratory distress noted today. Exam - Neurology Vital Signs Temp Pulse Resp BP Pulse Ox O2 Del Method O2 Flow Rate 97.0 F 99 18 99/73 95 Nasal Cannula 2 06/12/24 20:00 06/12/24 21:47 06/12/24 20:00 06/12/24 21:47 06/12/24 20:00 06/12/24 20:00 06/12/24 20:00 FiO2 4 06/12/24 16:46 Narrative Exam GENERAL APPEARANCE: Well-developed, obese built female in mild distress HEENT: Normocephalic, atraumatic, extraocular movements intact. Pupils: Equal reacting to light NECK: Supple, no JVD or bruits. CARDIOVASULAR: Heart: S1, S2 heard, irregular without S3-S4 or murmur no rubs or gallops. LUNGS/CHEST: Bilateral Rales and rhonchi heard. ABDOMEN: Soft, nontender, with normal bowel sounds. No pulsatile masses. No rebound, rigidity, or guarding. Normal inspection and palpation. EXTREMITIES: Significant edema in both upper and lower extremities. SKIN: Warm and dry without rashes. Normal inspection. MUSCULOSKELETAL: No cervical, thoracic, lumbar or midline bony tenderness. Normal inspection. NEURO: Alert, awake, follows commands consistently. Brainstem function: Intact. Moves all 4 extremities but significantly weak all over, no signs of meningeal irritation noted. PSYCHIATRIC: Mood and affect: Normal Objective Labs 06/12/24 17:08 06/12/24 05:49 Labs: Laboratory Results - last 24 hr 06/12/24 06/12/24 06/12/24 05:49 15:10 17:08 WBC 22.9 H D RBC 3.09 L Hgb 8.1 L 7.8 L Hct 25.4 L 24.7 L MCV 82 MCH 26.2 MCHC 31.9 RDW Std Deviation 55.9 H Plt Count 297 D Neut % (Auto) 71 Lymph % (Auto) 16 [place] % (Auto) 7 Eos % (Auto) 5 Baso % (Auto) 1 Neut # (Auto) 16.2 H Lymph # (Auto) 3.6 [place] # (Auto) 1.6 H Eos # (Auto) 1.2 H Baso # (Auto) 0.1 Immature Gran # (Auto) 0.19 H Absolute Nucleated RBC 0.13 H Immature Gran % 1 H Nucleated RBC % 1 H PT 15.1 H INR 1.4 H APTT 38.4 H D Sodium 134 L Potassium 5.1 Chloride 96 L Carbon Dioxide 21.6 Anion Gap 16 BUN 74 H Creatinine 7.0 H* D Estim Creat Clear Calc 6.5 L eGFR 6 L* BUN/Creatinine Ratio 11 L Glucose 99 Calculated Osmolality 290 Lactic Acid 1.5 Calcium 9.5 Corrected Calcium 9.7 Phosphorus 8.1 H Magnesium 2.4 Total Bilirubin 0.7 AST 12 ALT < 7 L Alkaline Phosphatase 116 Total Protein 7.6 Albumin 3.8 Globulin 3.8 H Albumin/Globulin Ratio 1.0 L Random Vancomycin 13.6 ABG Interpretation ABG results: 05/13/24 05/15/24 05/15/24 08:29 15:28 16:03 ABG pH 7.39 7.05 L* D 7.17 L* D ABG pCO2 31 L 63 H D 45 D ABG pO2 78 L 38 L* D 84 D ABG HCO3 19 L 18 L 16 L ABG O2 Saturation 96 59 L 96 ABG Base Excess -5 L -12 L -11 L VBG pH VBG pCO2 VBG pO2 VBG Base Excess 05/16/24 05/17/24 05/18/24 04:38 04:03 04:20 ABG pH 7.28 L D 7.38 D 7.49 H D ABG pCO2 34 D 28 L 30 L ABG pO2 96 85 66 L ABG HCO3 16 L 17 L 23 ABG O2 Saturation 98 97 94 ABG Base Excess -10 L -8 L 0 VBG pH VBG pCO2 VBG pO2 VBG Base Excess 05/19/24 05/20/24 05/21/24 09:05 06:05 22:35 ABG pH 7.30 L D 7.41 D ABG pCO2 49 H D 42 ABG pO2 63 L 63 L ABG HCO3 24 27 H ABG O2 Saturation 91 93 ABG Base Excess -3 2 VBG pH 7.31 L VBG pCO2 50 VBG pO2 39 VBG Base Excess -2 05/26/24 05/29/24 04:17 12:28 ABG pH 7.38 7.42 ABG pCO2 42 35 ABG pO2 81 L 67 L ABG HCO3 25 23 ABG O2 Saturation 97 95 ABG Base Excess 0 -2 VBG pH VBG pCO2 VBG pO2 VBG Base Excess Assessment & Plan Additional Assessment & Plan Additional Plan: 69-year-old female with past medical history of CKD stage III, prediabetes, hypertension who was found unconscious in her room. As well as diarrhea and shortness of breath. Admitted for sepsis secondary to pneumonia and acute metabolic encephalopathy #Acute metabolic encephalopathy- currently in telemetry, significant improvement noted, close to baseline #Generalized weakness --Brain MRI with MRA shows significant stenoses in posterior cerebral artery, no acute infarction noted -Will continue with the current management as per primary team Continue with the passive range of motion exercises prevent contracture Physical therapy as she tolerates.
[2024-06-13] VITALS (13 sets, daily range): BP systolic 94–128; BP diastolic 66–92; PULSE 88–117; RESP 17–27; TEMP 35.9–36.3; O2SAT 97–100; BMI 35.1
[2024-06-13 03:26] LABS: Partial Thromboplastin Time 87.1 Seconds (22.0-36.0)
[2024-06-13] MEDS: MIDODRINE 5 MG TABLET PO (05:21)
[2024-06-13] MEDS: PIPER/TAZO 2.25 GM 2.25 GM/50 ML BAG IV ×3 (05:22→21:11)
[2024-06-13 06:00] LABS: Basophils # (Auto) 0.1 Thou/mm3 (0.0-0.2); Basophils % (Auto) 1 % (0-2.5); Eosinophils # (Auto) 1.1 Thou/mm3 (0.0-0.5); Eosinophils % (Auto) 5 % (0-10); Hematocrit 24.2 % (36.0-46.0); Immature Granulocytes % (Auto) 1 % (0-0); Immature Granulocytes Auto 0.21 Thou/mm3 (0.00-0.00); Lymphocytes # (Auto) 3.9 Thou/mm3 (1.0-4.8); Lymphocytes % (Auto) 18 % (10-50); Mean Corpuscular HGB Conc 31.8 g/dl (31.0-37.0); Mean Corpuscular Hemoglobin 26.4 pg (25.0-35.0); Mean Corpuscular Volume 83 fL (80-100); Monocytes # (Auto) 1.7 Thou/mm3 (0.0-0.8); Monocytes % (Auto) 8 % (0-12); Neutrophils # (Auto) 14.2 Thou/mm3 (1.8-7.7); Neutrophils % (Auto) 67 % (37-80); Nucleated Red Blood Cell % 1 /100 WBC (0); Platelet Count 300 Thou/mm3 (140-440); RDW Standard Deviation 56.5 fL (36.4-46.3); Red Blood Count 2.92 Miln/mm3 (4.00-5.20); White Blood Count 21.3 Thou/mm3 (3.6-11.0)
[2024-06-13 06:22] LABS: Hemoglobin 7.7 g/dL (12.0-16.0)
[2024-06-13 06:33] LABS: Alanine Aminotransferase < 7 U/L (10-49); Albumin, Serum 3.5 gm/dL (3.4-4.8); Albumin/Globulin Ratio 0.9 (1.2-2.2); Alkaline Phosphatase 110 U/L (46-116); Anion Gap 18 (7-16); Aspartate Amino Transferase 13 U/L (0-34); BUN/Creatinine Ratio 11 Ratio (12-20); Bilirubin,Total 0.7 mg/dL (0.3-1.2); Blood Urea Nitrogen 84 mg/dL (9-23); Calcium 9.4 mg/dL (8.3-10.6); Calcium (Corrected) 9.8 mg/dL (8.5-10.1); Chloride 95 mMol/L (98-107); Creatinine (Component) 7.5 mg/dL (0.6-1.3); Estimated Creatinine Clearance 6.1 mL/min (>60); Globulin 3.7 gm/dL (2.3-3.5); Glucose 86 mg/dL (74-106); Osmolality,Calculated 292 (275-295); Potassium 5.2 mMol/L (3.4-5.1); Sodium 134 mMol/L (136-145); Total Protein 7.2 gm/dL (5.7-8.2); Vancomycin,Random 30.1 mcg/mL; eGFR 5 See Note
--- NOTE | 2024-06-13 07:59 | PC.NURSE ---
Per Dr. August, hold dialysis today.
[2024-06-13] MEDS: FLUCONAZOLE 100 MG TABLET 400 MG PO (08:06)
[2024-06-13] MEDS: droNABinol 2.5 MG CAPSULE 5 MG PO (08:06)
[2024-06-13] MEDS: METOPROLOL SUCCINATE XL 25 MG TABCR 50 MG PO (08:07)
[2024-06-13] MEDS: PANTOPRAZOLE INJ 40 MG VIAL IVP ×2 (08:07→21:10)
[2024-06-13] MEDS: AMIODARONE HCL 200 MG TABLET PO ×2 (08:07→21:09)
[2024-06-13] MEDS: FUROSEMIDE INJ 10 MG/ML 4ML VIAL 40 MG IVP (08:08)
[2024-06-13] MEDS: SENNA TABLET 1 TAB PO (08:11)
[2024-06-13] MEDS: TIMOLOL OP SOL 0.5% 5 ML BTL 1 DROP BOTH EYES (08:11)
--- NOTE | 2024-06-13 09:42 | ESPR_ITS ---
Documentation for date of: 06/13/24 Subjective Subjective Interval history: Mr. Castellanos is a [id number] with past medical history of prediabetes, CKD, hypertension, history of ulcers who was admitted to [facility] for sepsis secondary to pneumonia and acute metabolic encephalopathy. Patient was BIBA to the ED after being found unconscious on the floor. According to the son on admission patient's daughter found the patient at 3 AM passed out on the floor and unresponsive. Family is unaware along the patient was on the floor. 2 days ago patient started to develop abdominal pain and weakness all over her body associated with some diarrhea and shortness of breath. Patient's abdominal pain comes and goes from right side to left side of the abdomen. ED course patient was hypertensive tachycardic tachypneic and was saturating 92% on 5 L nasal cannula ED labs significant for WBCs 24.3, bicarb 19.6, glucose 259, lactic acid 2.2, BNP 304, troponin 0.09. 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, colonic diverticulosis, Cervical spine CT showed 3 mm radiolucency in C3 vertebral body Chest CTA showed mild aneurysmal dilatation ascending thoracic aorta AP dimension 4.3 cm and pulmonary artery hypertension with moderate vascular congestion Face CT shows no acute facial fracture, Lumbar spine CT shows no acute lumbar fracture severe acquired spinal stenosis L4-L5, Thoracic spine CT showed no acute fracture Brain MRI with MRA showed equally focal restricted diffusion brainstem medullary level significant stenosis of right P1 P2 segment posterior cerebral artery Postadmission, cardiology was consulted on admission because of elevated troponins, suspicion of NSTEMI type II, patient has acute decompensated heart failure per cardiology evaluation, neurology consulted because of patient's acute metabolic encephalopathy and GI was consulted for suspicion of GI bleed. Eventually on 05/15 rapid response was called for worsening chest pain, patient's map was consistently in 70s, was tachycardic tachypneic. CT angiogram showed pneumoperitoneum multiple air droplets adjacent to and within wall of stomach with suspicion of gastric perforation. General surgery was consulted for emergency surgery and patient had exploratory laparotomy with repair of perforated gastric ulcer with an omental patch. Patient was upgraded to ICU postop for further management patient currently on Levophed and vasopressor due to distributive shock, currently sedated and intubated on mechanical ventilation. Nephrology consulted due to concern of ADILSON. 06/10/2024 patient currently seen in telemetry. Patient complaining of abdominal pain. Scheduled for dialysis today. Although did have some trouble with catheter before. tPA was placed. Catheter could not be exchanged yesterday. Will monitor catheter function closely. Unfortunately IR not available until Wednesday. 06/11/2024 patient currently seen in telemetry. Sick looking. Did receive dialysis yesterday. Still having some abdominal discomfort.WBC 28.7, hemoglobin 7.8, platelets 261. Sodium 134, potassium 4.8, BUN 53, creatinine 5.6, magnesium 2.4, LFTs normal, albumin 4.0 chest x-ray showed pneumonia/mild heart failure. CT abdomen repeat showed multiple abdominal and pelvic abscesses. Prognosis remains guarded. 06/12/2024 patient was seen and examined at bedside. Patient appears to be fluid overloaded, saturating 97% on 2 L of oxygen, blood pressure of 93/67, pulse rate of 97. her WBC downtrended from 28.7-22.9, CT scan was repeated on the and it showed multiple intra-abdominal abscesses. Hemoglobin stable at 8.1, serum sodium 134, calcium 5.1, BUN of 74 uptrending, serum creatinine increased from 5.67, glucose 99, calcium 9.5, phosphate 8.1. Urine output documented as 0. Today patient is scheduled for dialysis. 06/13/2024 Patient was seen and examined at bedside. No overnight incidents patient saturating 94 on 2 L of oxygen. Patient still require daily dialysis. Treatment team repeated CT scan showed multiple abscesses that believe that most likely secondary to fungal infection, there are pending Dr Horn's recommendations to escalate treatment. Today her WBCs 21.3 yesterday it was 22.9, hemoglobin stable at 7.7, sodium 134, potassium 5.2, chloride 95, serum BUN is 83 and creatinine 7.5. Patient seems to be overloaded next dialysis is going to be tomorrow as per her schedule. Exam Vital Signs Temp Pulse Resp BP Pulse Ox O2 Del Method O2 Flow Rate 97.3 F 88 24 H 116/66 97 Nasal Cannula 2 06/13/24 08:00 06/13/24 08:08 06/13/24 08:07 06/13/24 08:08 06/13/24 08:07 06/13/24 08:00 06/13/24 08:07 FiO2 4 06/12/24 16:46 Narrative Exam PatientGEN: AOx3, flat mood and affect, in semi-sitting position HEENT: NC/AC, oral mucosa moist, neck supple CVS: RRR, S1-S2 present, no murmurs appreciated RESP: faint wheezing bilaterally, diffuse coarse crepitations GI: soft, non distended, non tender, NBS MSK: able to move all 4 limbs however significant generalized weakness, +3 on the right side, lower extremity edema +2 of the left side. SKIN: warm and dry [employer]: CN II-XII and Sensation grossly intact. Objective Labs 06/13/24 04:30 06/13/24 04:30 Labs: Laboratory Results - last 24 hr 06/12/24 06/12/24 06/13/24 15:10 17:08 02:15 WBC RBC Hgb 7.8 L Hct 24.7 L MCV MCH MCHC RDW Std Deviation Plt Count Neut % (Auto) Lymph % (Auto) [place] % (Auto) Eos % (Auto) Baso % (Auto) Neut # (Auto) Lymph # (Auto) [place] # (Auto) Eos # (Auto) Baso # (Auto) Immature Gran # (Auto) Absolute Nucleated RBC Immature Gran % Nucleated RBC % APTT 87.1 H D Sodium Potassium Chloride Carbon Dioxide Anion Gap BUN Creatinine Estim Creat Clear Calc eGFR BUN/Creatinine Ratio Glucose Calculated Osmolality Lactic Acid 1.5 Calcium Corrected Calcium Total Bilirubin AST ALT Alkaline Phosphatase Total Protein Albumin Globulin Albumin/Globulin Ratio Random Vancomycin 06/13/24 04:30 WBC 21.3 H RBC 2.92 L Hgb 7.7 L Hct 24.2 L MCV 83 MCH 26.4 MCHC 31.8 RDW Std Deviation 56.5 H Plt Count 300 Neut % (Auto) 67 Lymph % (Auto) 18 [place] % (Auto) 8 Eos % (Auto) 5 Baso % (Auto) 1 Neut # (Auto) 14.2 H Lymph # (Auto) 3.9 [place] # (Auto) 1.7 H Eos # (Auto) 1.1 H Baso # (Auto) 0.1 Immature Gran # (Auto) 0.21 H Absolute Nucleated RBC 0.20 H Immature Gran % 1 H Nucleated RBC % 1 H APTT Sodium 134 L Potassium 5.2 H Chloride 95 L Carbon Dioxide 21.0 Anion Gap 18 H BUN 84 H Creatinine 7.5 H* D Estim Creat Clear Calc 6.1 L eGFR 5 L* BUN/Creatinine Ratio 11 L Glucose 86 Calculated Osmolality 292 Lactic Acid Calcium 9.4 Corrected Calcium 9.8 Total Bilirubin 0.7 AST 13 ALT < 7 L Alkaline Phosphatase 110 Total Protein 7.2 Albumin 3.5 Globulin 3.7 H Albumin/Globulin Ratio 0.9 L Random Vancomycin 30.1 ABG Interpretation ABG results: 05/13/24 05/15/24 05/15/24 08:29 15:28 16:03 ABG pH 7.39 7.05 L* D 7.17 L* D ABG pCO2 31 L 63 H D 45 D ABG pO2 78 L 38 L* D 84 D ABG HCO3 19 L 18 L 16 L ABG O2 Saturation 96 59 L 96 ABG Base Excess -5 L -12 L -11 L VBG pH VBG pCO2 VBG pO2 VBG Base Excess 05/16/24 05/17/24 05/18/24 04:38 04:03 04:20 ABG pH 7.28 L D 7.38 D 7.49 H D ABG pCO2 34 D 28 L 30 L ABG pO2 96 85 66 L ABG HCO3 16 L 17 L 23 ABG O2 Saturation 98 97 94 ABG Base Excess -10 L -8 L 0 VBG pH VBG pCO2 VBG pO2 VBG Base Excess 05/19/24 05/20/24 05/21/24 09:05 06:05 22:35 ABG pH 7.30 L D 7.41 D ABG pCO2 49 H D 42 ABG pO2 63 L 63 L ABG HCO3 24 27 H ABG O2 Saturation 91 93 ABG Base Excess -3 2 VBG pH 7.31 L VBG pCO2 50 VBG pO2 39 VBG Base Excess -2 05/26/24 05/29/24 04:17 12:28 ABG pH 7.38 7.42 ABG pCO2 42 35 ABG pO2 81 L 67 L ABG HCO3 25 23 ABG O2 Saturation 97 95 ABG Base Excess 0 -2 VBG pH VBG pCO2 VBG pO2 VBG Base Excess Quality Measures Quality Measures none Advance care planning discussed with:: patient Assessment & Plan Assessment Current Active Medications: Generic Name Dose Route Start Last Admin Trade Name Jooq PRN Reason Stop Dose Admin Acetaminophen 650 mg 06/09/24 14:11 06/12/24 17:42 Acetaminophen 325 Mg Tablet PO 07/09/24 14:10 650 mg Q6HR PRN Administration Fever >101 and pain 1-3 Hydrocodone Bitart/Acetaminophen 1 tab 06/09/24 14:11 06/11/24 16:32 Hydrocodone/Apap 5/325 Tablet PO 06/14/24 14:10 1 tab Q4HR PRN Administration PAIN SCALE 4-10(Mod-Sev Albuterol/Ipratropium 3 ml 05/27/24 18:08 06/10/24 21:12 Albuterol/Ipratropium (Duoneb) Rt Jimena 3 Ml Nebu INH 06/26/24 18:07 3 ml Q2HR PRN Administration SHORTNESS OF BREATH OR WHEEZE Amiodarone HCl 200 mg 05/29/24 15:00 06/13/24 08:07 Amiodarone Hcl 200 Mg Tablet PO 06/28/24 14:59 200 mg BID ANGELICA Administration Benzocaine 1 lozenge 05/31/24 11:53 06/09/24 23:07 Benzocaine/Menthol 1 Lozenge PO 06/30/24 11:52 1 lozenge Q4HR PRN Administration Sore throat Dextrose 25 ml 05/24/24 15:43 Dextrose 50%-Water Inj 50 Ml Syringe IV 06/23/24 15:42 Q15MIN PRN BG 50-70 responsive npo pt Dextrose 50 ml 05/24/24 15:43 Dextrose 50%-Water Inj 50 Ml Syringe IV 06/23/24 15:42 Q15MIN PRN BG <50 OR BG <70 & pt unresponsive Dronabinol 5 mg 06/07/24 10:40 06/13/24 08:06 Dronabinol 2.5 Mg Capsule PO 07/07/24 10:39 5 mg BIDAC ANGELICA Administration Fluconazole 400 mg 06/11/24 09:00 06/13/24 08:06 Fluconazole 100 Mg Tablet PO 06/18/24 08:59 400 mg QDAY ANGELICA Administration Furosemide 40 mg 06/09/24 10:15 06/13/24 08:08 Furosemide Inj 10 Mg/Ml 4ml Vial IVP 07/09/24 10:14 40 mg QDAY ANGELIAC Administration Glucagon 1 mg 05/24/24 15:43 Glucagon Inj 1 Mg Vial IM Q15MIN PRN BG <70, and no IV access Guaifenesin 200 mg 06/10/24 08:30 06/13/24 05:19 Guaifenesin Syrup 200 Mg/10 Ml Udc PO 07/10/24 08:29 Not Given QID [facility] Protocol Heparin Sodium (Porcine) 3,500 unit 06/07/24 18:06 06/10/24 20:38 Heparin Sod Inj 1000 Unit/Ml Vial 10 Ml INDWELLCAT 06/21/24 18:05 3,500 unit PRN PRN Administration DIALYSIS Piperacillin/Tazobactam/Dextrose 2.25 gm in 50 mls @ 100 mls/hr 06/10/24 12:10 06/13/24 05:22 Zosyn IV 06/17/24 12:09 100 mls/hr Q8HR ANGELICA Administration Micafungin Sodium 100 mg/ 100 mls @ 100 mls/hr 06/10/24 13:56 06/12/24 09:33 Sodium Chloride IV 06/25/24 13:55 100 mls/hr QDAY ANGELICA Administration Albumin Human 25 gm in 100 mls @ 100 mls/hr 06/12/24 16:40 Albuminar-25 Ivpb IV PRN PRN DIALYSIS Heparin Sodium/Dextrose 25,000 unit in 250 mls @ 9.732 mls/hr 06/12/24 19:30 06/13/24 03:38 Heparin In D5w Ivpb IV 06/26/24 19:29 10 units/kg/hr .Q24H ANGELICA 8.11 mls/hr Titration Protocol 12 UNITS/KG/HR Insulin Glargine 12 unit 05/25/24 09:00 06/13/24 08:25 Insulin Glargine (Lantus) 5 Unit/0.05 Ml (Per 5 Units) SC 06/24/24 08:59 Not Given QDAY ANGELICA Insulin Human Lispro 0 unit 05/24/24 18:00 06/13/24 05:33 Insulin Lispro (Admelog) 1 Unit/0.01 Ml Unit SC 06/23/24 17:59 Not Given Q6HR [facility] Protocol Lidocaine 1 patch 05/30/24 09:16 06/01/24 19:01 Lidocaine 5% 1 Patch TOP 06/29/24 09:15 1 patch DAILY PRN Administration BACK PAIN Metoprolol Succinate 50 mg 06/11/24 14:03 Metoprolol Succinate Xl 25 Mg Tabcr PO 07/12/24 08:59 QDAY PRN Tachycardia above 150 Metoprolol Succinate 50 mg 06/12/24 15:36 06/13/24 08:07 Metoprolol Succinate Xl 25 Mg Tabcr PO 07/09/24 21:04 50 mg QDAY ANGELICA Administration Midodrine 5 mg 06/12/24 22:00 06/13/24 05:21 Midodrine 5 Mg Tablet PO 07/12/24 21:59 5 mg TID ANGELICA Administration Mirtazapine 15 mg 06/13/24 21:00 Mirtazapine 15 Mg Tablet PO 07/13/24 20:59 HS ANGELICA Pantoprazole Sodium 40 mg 05/15/24 21:00 06/13/24 08:07 Pantoprazole Inj 40 Mg Vial IVP 06/14/24 20:59 40 mg BID ANGELICA Administration Pharmacy Consult 1 each 05/16/24 10:27 Pharmacy Renal Dose Adjustment 1 Ea XX 06/15/24 10:26 PRN PRN CONSULT Pharmacy Consult 1 each 06/10/24 12:15 Vancomycin Pharmacy To Dose 1 Each Each IV 07/10/24 12:14 QDAY PRN CONSULT Polyethylene Glycol 17 gm 06/12/24 15:36 Polyethylene Glycol 17 Gm Packet PO 07/09/24 10:44 BID PRN constipation Protocol Sennosides 1 tab 06/09/24 10:45 06/13/24 08:11 Senna Tablet PO 07/09/24 10:44 1 tab QDAY ANGELICA Administration Protocol Sodium Chloride 3 ml 05/24/24 19:00 Sodium Chloride Rt Jimena 0.9% 3 Ml Nebu INH 06/23/24 18:59 PRN PRN SOLN Timolol Maleate 1 drop 05/28/24 18:15 06/13/24 08:11 Timolol Op Jimena 0.5% 5 Ml Btl BOTH EYES 06/27/24 18:14 1 drop DAILY ANGELICA Administration Plan Mr. Castellanos is a [id number] with past medical history of prediabetes, CKD, hypertension, history of ulcers who was admitted to [facility] for sepsis secondary to pneumonia and acute metabolic encephalopathy. Patient is currently sedated intubated in ICU status post exploratory laparotomy with repair of perforated gastric ulcer with an omental patch. Nephrology consulted for acute kidney injury. Assessment and plan #Acute kidney injury on dialysis M/W/F #Acute Tubular Necrosis 2/2 shock # Fluid overload Patient currently seems to be in ATN probably ischemic from fluctuations in blood pressure and underlying shock- started her on dialysis. Plan ?Dialysis tomorrow as per schedule ?Pharmacy to dose medications ? Avoid nephrotoxic medications ? Continue strict in and out ? Recommend to monitor fluid that was brought from home as it may contain high salt which may worsen her fluid overload. #Acute ischemic stroke #Acute decompensated HF #Hyperlipidemia #Primary Hypertension #Acute Hypoxic Respiratory failure #Peritonitis secondary to perforated gastric ulcer- s/p sx, drains removed #Acute Upper GI bleed #Diabetes Mellitus type II #Acute anemia Plan ? Follow-up with the primary team recommendations Thank you for your consultation, please do not hesitate to reach out if you have any concerns or questions. All above problems per primary team. Prognosis remains guarded. - Patient's plan and care discussed with my attending, Dr. Mata Sifuentes MD Internal Medicine PGY-2 Attending Provider Attestation/Addendum Seen and examined with resident physician Dr. Barton. Note reviewed, agree with findings and recommendations. Next dialysis scheduled for tomorrow
[2024-06-13] MEDS: MICAFUNGIN SODIUM INJ 100 MG in SODIUM CHLORIDE 0.9% 100 ML IV (09:45)
[2024-06-13 09:58] LABS: Magnesium 2.5 mg/dL (1.6-2.6); Phosphorous 8.3 mg/dL (2.4-5.1)
[2024-06-13] MEDS: guaiFENesin SYRUP 200 MG/10 ML UDC PO ×3 (11:23→21:10)
[2024-06-13 11:27] LABS: Partial Thromboplastin Time 52.7 Seconds (22.0-36.0)
--- NOTE | 2024-06-13 12:10 | ESPR_ITS ---
Documentation for date of: 06/13/24 Subjective Subjective Brief History: 69F with HTN, CKDIII, pre DM and known gastric ulcers who was admitted 05/13 after being found down at home. Pt was admitted for encephalopathy and pneumonia, developed anemia for which EGD was planned today however this am had an [employer] for tachycardia, hypotension and acute pain; she underwent CT AP showing pneumoperitoneum with air droplets adjacent to the stomach PMH: HTN, CKDIII, preDM, known gastric ulcers on EGD 10/2023 PSHx: None Meds: No antiplt or anticoagulation Allergies: NKDA Narrative: Underwent aspiration of left abdominal abscess yesterday, pelvic abscess too small to drain. Remaining afebrile, WBC 21 from 22.9 Exam Vital Signs Temp Pulse Resp BP Pulse Ox O2 Del Method O2 Flow Rate 97.3 F 88 24 H 116/66 97 Nasal Cannula 2 06/13/24 08:00 06/13/24 08:08 06/13/24 08:07 06/13/24 08:08 06/13/24 08:07 06/13/24 08:00 06/13/24 08:07 FiO2 4 06/12/24 16:46 Constitutional Constitutional: no acute distress Routine Respiratory Exam Respiratory: Present no resp distress Routine Abdominal Exam Abdominal: Present soft; Absent tenderness or distended Results Results: Laboratory Laboratory results: results reviewed Assessment & Plan Plan 69F with HTN, CKDIII, pre DM and known gastric ulcers who was admitted 05/13 after being found down at home, who developed pneumoperitoneum 05/15 s/p emergent ex lap, repair of gastric perforation, with postop abscess requiring percutaneous drain placement previously, again 06/12, gradually recovering Trend WBC, continue abx Diet as tolerated Procedures Procedures Exploratory laparotomy, repair of perforated gastric ulcer
--- NOTE | 2024-06-13 13:26 | PD.RESPRO ---
Documentation for date of: 06/13/24 Subjective Subjective Interval history: 06/11/2024: Patient examined at bedside today. Telemetry reviewed and patient seems to be in 120s and 130s still in A-fib. Patient reports that she still experiencing some pain in her abdomen. Patient is likely going in higher heart rate because of uncontrolled pain, drainage to be done tomorrow. Patient's white count is 29 today, was started on Zosyn and Vanco. Patient's BUN/creatinine 53 and 5.6 respectively, will do dialysis tomorrow, dialysis yesterday at 1.5 L removed. Will continue to to try to control patient's pain and patient will need drainage with a goal of procedure to be tomorrow. Will add metoprolol as needed if patient's heart rate goes to the 150s. 06/12/2024: Pt examined at bedside today. Telemetry reviewed and pt appears to still be in fib, rate controlled in 120s. Pt reports she is still experiencing some abdominal pain, however it has been relatively controlled. I adjusted her positioning in her bed. She is agreeable with continuing abscess drainage. Her WBC count is going down, 23 today. BUN/Cr 74 and 7.0 respectively, potassium 5.1, Mg 2.4, dialysis should be done today, will touch base with nephrology team. Will continue current medicines with Amio, metoprolol, hep drip to be stopped before procedure. 06/13/2024: Patient examined bedside today. Telemetry reviewed and patient still appears to be in A-fib, rate in the 90s to 100. Patient says she is doing okay today, she is not experiencing any abdominal pain at this time. Hemoglobin around 8 today, BUN/creatinine of 84 and 7.5 respectively. Will continue with Amio and metoprolol 50 XL. Blood pressure little soft today 94/74. Patient still on heparin drip, will transition to Eliquis at some point. Exam Vital Signs Temp Pulse Resp BP Pulse Ox O2 Del Method O2 Flow Rate 97.0 F 100 19 127/92 H 97 Nasal Cannula 1 06/13/24 12:00 06/13/24 12:00 06/13/24 12:00 06/13/24 12:00 06/13/24 12:00 06/13/24 12:06/13/24 12:00 FiO2 4 06/12/24 16:46 Narrative Exam General: AAOx3, obese female, patient appears to be comfortable sitting up right HEENT: Moist mucous membranes, conjunctiva clear, EOMI, PERRLA, Cardiovascular: S1, S2, radial pulses +2 bilat, irregularly irregular rhythm, tachycardic Pulmonary: Wheezing heard in lungs bilat, congestion and cough GI: Bandages present, no ascites, mildly distended, tenderness upon palpitation in L quadrant Extremities: SCDs present, pitting edema in LE +1 bilat Neuro: AAOx3, no focal motor or sensory deficits in the UE or LE bilat Psych: Cooperative. Objective Labs 06/13/24 04:30 06/13/24 04:30 Labs: Laboratory Results - last 24 hr 06/12/24 06/12/24 06/13/24 15:10 17:08 02:15 WBC RBC Hgb 7.8 L Hct 24.7 L MCV MCH MCHC RDW Std Deviation Plt Count Neut % (Auto) Lymph % (Auto) [place] % (Auto) Eos % (Auto) Baso % (Auto) Neut # (Auto) Lymph # (Auto) [place] # (Auto) Eos # (Auto) Baso # (Auto) Immature Gran # (Auto) Absolute Nucleated RBC Immature Gran % Nucleated RBC % APTT 87.1 H D Sodium Potassium Chloride Carbon Dioxide Anion Gap BUN Creatinine Estim Creat Clear Calc eGFR BUN/Creatinine Ratio Glucose Calculated Osmolality Lactic Acid 1.5 Calcium Corrected Calcium Phosphorus Magnesium Total Bilirubin AST ALT Alkaline Phosphatase Total Protein Albumin Globulin Albumin/Globulin Ratio Random Vancomycin 06/13/24 06/13/24 04:30 10:15 WBC 21.3 H RBC 2.92 L Hgb 7.7 L Hct 24.2 L MCV 83 MCH 26.4 MCHC 31.8 RDW Std Deviation 56.5 H Plt Count 300 Neut % (Auto) 67 Lymph % (Auto) 18 [place] % (Auto) 8 Eos % (Auto) 5 Baso % (Auto) 1 Neut # (Auto) 14.2 H Lymph # (Auto) 3.9 [place] # (Auto) 1.7 H Eos # (Auto) 1.1 H Baso # (Auto) 0.1 Immature Gran # (Auto) 0.21 H Absolute Nucleated RBC 0.20 H Immature Gran % 1 H Nucleated RBC % 1 H APTT 52.7 H D Sodium 134 L Potassium 5.2 H Chloride 95 L Carbon Dioxide 21.0 Anion Gap 18 H BUN 84 H Creatinine 7.5 H* D Estim Creat Clear Calc 6.1 L eGFR 5 L* BUN/Creatinine Ratio 11 L Glucose 86 Calculated Osmolality 292 Lactic Acid Calcium 9.4 Corrected Calcium 9.8 Phosphorus 8.3 H Magnesium 2.5 Total Bilirubin 0.7 AST 13 ALT < 7 L Alkaline Phosphatase 110 Total Protein 7.2 Albumin 3.5 Globulin 3.7 H Albumin/Globulin Ratio 0.9 L Random Vancomycin 30.1 ABG Interpretation ABG results: 05/13/24 05/15/24 05/15/24 08:29 15:28 16:03 ABG pH 7.39 7.05 L* D 7.17 L* D ABG pCO2 31 L 63 H D 45 D ABG pO2 78 L 38 L* D 84 D ABG HCO3 19 L 18 L 16 L ABG O2 Saturation 96 59 L 96 ABG Base Excess -5 L -12 L -11 L VBG pH VBG pCO2 VBG pO2 VBG Base Excess 05/16/24 05/17/24 05/18/24 04:38 04:03 04:20 ABG pH 7.28 L D 7.38 D 7.49 H D ABG pCO2 34 D 28 L 30 L ABG pO2 96 85 66 L ABG HCO3 16 L 17 L 23 ABG O2 Saturation 98 97 94 ABG Base Excess -10 L -8 L 0 VBG pH VBG pCO2 VBG pO2 VBG Base Excess 05/19/24 05/20/24 05/21/24 09:05 06:05 22:35 ABG pH 7.30 L D 7.41 D ABG pCO2 49 H D 42 ABG pO2 63 L 63 L ABG HCO3 24 27 H ABG O2 Saturation 91 93 ABG Base Excess -3 2 VBG pH 7.31 L VBG pCO2 50 VBG pO2 39 VBG Base Excess -2 05/26/24 05/29/24 04:17 12:28 ABG pH 7.38 7.42 ABG pCO2 42 35 ABG pO2 81 L 67 L ABG HCO3 25 23 ABG O2 Saturation 97 95 ABG Base Excess 0 -2 VBG pH VBG pCO2 VBG pO2 VBG Base Excess Quality Measures Quality Measures none Advance care planning discussed with:: patient Assessment & Plan Assessment Current Active Medications: Generic Name Dose Route Start Last Admin Trade Name Marko PRN Reason Stop Dose Admin Acetaminophen 650 mg 06/09/24 14:11 06/12/24 17:42 Acetaminophen 325 Mg Tablet PO 07/09/24 14:10 650 mg Q6HR PRN Administration Fever >101 and pain 1-3 Hydrocodone Bitart/Acetaminophen 1 tab 06/09/24 14:11 06/11/24 16:32 Hydrocodone/Apap 5/325 Tablet PO 06/14/24 14:10 1 tab Q4HR PRN Administration PAIN SCALE 4-10(Mod-Sev Albuterol/Ipratropium 3 ml 05/27/24 18:08 06/10/24 21:12 Albuterol/Ipratropium (Duoneb) Rt Jimena 3 Ml Nebu INH 06/26/24 18:07 3 ml Q2HR PRN Administration SHORTNESS OF BREATH OR WHEEZE Amiodarone HCl 200 mg 05/29/24 15:00 06/13/24 08:07 Amiodarone Hcl 200 Mg Tablet PO 06/28/24 14:59 200 mg BID ANGELICA Administration Benzocaine 1 lozenge 05/31/24 11:53 06/09/24 23:07 Benzocaine/Menthol 1 Lozenge PO 06/30/24 11:52 1 lozenge Q4HR PRN Administration Sore throat Dextrose 25 ml 05/24/24 15:43 Dextrose 50%-Water Inj 50 Ml Syringe IV 06/23/24 15:42 Q15MIN PRN BG 50-70 responsive npo pt Dextrose 50 ml 05/24/24 15:43 Dextrose 50%-Water Inj 50 Ml Syringe IV 06/23/24 15:42 Q15MIN PRN BG <50 OR BG <70 & pt unresponsive Dronabinol 5 mg 06/07/24 10:40 06/13/24 08:06 Dronabinol 2.5 Mg Capsule PO 07/07/24 10:39 5 mg BIDAC ANGELICA Administration Furosemide 40 mg 06/09/24 10:15 06/13/24 08:08 Furosemide Inj 10 Mg/Ml 4ml Vial IVP 07/09/24 10:14 40 mg QDAY ANGELICA Administration Glucagon 1 mg 05/24/24 15:43 Glucagon Inj 1 Mg Vial IM Q15MIN PRN BG <70, and no IV access Guaifenesin 200 mg 06/10/24 08:30 06/13/24 11:23 Guaifenesin Syrup 200 Mg/10 Ml Udc PO 07/10/24 08:29 200 mg QID ANGELICA Administration Protocol Heparin Sodium (Porcine) 3,500 unit 06/07/24 18:06 06/10/24 20:38 Heparin Sod Inj 1000 Unit/Ml Vial 10 Ml INDWELLCAT 06/21/24 18:05 3,500 unit PRN PRN Administration DIALYSIS Piperacillin/Tazobactam/Dextrose 2.25 gm in 50 mls @ 100 mls/hr 06/10/24 12:10 06/13/24 05:22 Zosyn IV 06/17/24 12:09 100 mls/hr Q8HR ANGELICA Administration Micafungin Sodium 100 mg/ 100 mls @ 100 mls/hr 06/10/24 13:56 06/13/24 09:45 Sodium Chloride IV 06/25/24 13:55 100 mls/hr QDAY ANGELICA Administration Albumin Human 25 gm in 100 mls @ 100 mls/hr 06/12/24 16:40 Albuminar-25 Ivpb IV PRN PRN DIALYSIS Heparin Sodium/Dextrose 25,000 unit in 250 mls @ 9.732 mls/hr 06/12/24 19:30 06/13/24 11:58 Heparin In D5w Ivpb IV 06/26/24 19:29 10 units/kg/hr .Q24H ANGELICA 8.11 mls/hr Titration Protocol 12 UNITS/KG/HR Insulin Glargine 12 unit 05/25/24 09:00 06/13/24 08:25 Insulin Glargine (Lantus) 5 Unit/0.05 Ml (Per 5 Units) SC 06/24/24 08:59 Not Given QDAY ANGELICA Insulin Human Lispro 0 unit 05/24/24 18:00 06/13/24 11:23 Insulin Lispro (Admelog) 1 Unit/0.01 Ml Unit SC 06/23/24 17:59 Not Given Q6HR [facility] Protocol Lidocaine 1 patch 05/30/24 09:16 06/01/24 19:01 Lidocaine 5% 1 Patch TOP 06/29/24 09:15 1 patch DAILY PRN Administration BACK PAIN Metoprolol Succinate 50 mg 06/11/24 14:03 Metoprolol Succinate Xl 25 Mg Tabcr PO 07/12/24 08:59 QDAY PRN Tachycardia above 150 Metoprolol Succinate 50 mg 06/12/24 15:36 06/13/24 08:07 Metoprolol Succinate Xl 25 Mg Tabcr PO 07/09/24 21:04 50 mg QDAY ANGELICA Administration Midodrine 5 mg 06/12/24 22:00 06/13/24 05:21 Midodrine 5 Mg Tablet PO 07/12/24 21:59 5 mg TID ANGELICA Administration Mirtazapine 15 mg 06/13/24 21:00 Mirtazapine 15 Mg Tablet PO 07/13/24 20:59 HS ANGELICA Pantoprazole Sodium 40 mg 05/15/24 21:00 06/13/24 08:07 Pantoprazole Inj 40 Mg Vial IVP 06/14/24 20:59 40 mg BID ANGELICA Administration Pharmacy Consult 1 each 05/16/24 10:27 Pharmacy Renal Dose Adjustment 1 Ea XX 06/15/24 10:26 PRN PRN CONSULT Pharmacy Consult 1 each 06/10/24 12:15 Vancomycin Pharmacy To Dose 1 Each Each IV 07/10/24 12:14 QDAY PRN CONSULT Polyethylene Glycol 17 gm 06/12/24 15:36 Polyethylene Glycol 17 Gm Packet PO 07/09/24 10:44 BID PRN constipation Protocol Sennosides 1 tab 06/09/24 10:45 06/13/24 08:11 Senna Tablet PO 07/09/24 10:44 1 tab QDAY ANGELICA Administration Protocol Sodium Chloride 3 ml 05/24/24 19:00 Sodium Chloride Rt Jimena 0.9% 3 Ml Nebu INH 06/23/24 18:59 PRN PRN SOLN Timolol Maleate 1 drop 05/28/24 18:15 06/13/24 08:11 Timolol Op Jimena 0.5% 5 Ml Btl BOTH EYES 06/27/24 18:14 1 drop DAILY ANGELICA Administration Plan Assessment Ms. Castellanos is a 69-year-old female with past medical history significant for hypertension, diabetes and history of gastric ulcers who presented to the ED on 05/13/2024 after she was found unconscious on the floor. Per chart reviewing prior to this unconsciousness patient was having abdominal pain and generalized weakness with diarrhea and shortness of breath for 2 days. Patient was admitted to the hospital for treatment and management of sepsis secondary to pneumonia. Patient was given 1 L normal saline and started on ceftriaxone and azithromycin. patient underwent ex lap surgery for perforated gastric ulcer. Patient remained intubated postop and was upgraded to the ICU. Patient continues to be on dialysis after downgrade, has BALAJI and accordion drain intact, completed bowel rest, was started on dysphagia 1 diet, surgery following case closely, will continue to monitor. #New onset A-fib with RVR, improving New onset of Afib, likely related to septic shock requiring pressor support and increased demand from perforated ulcer complicated by abdominal abscesses Pt appears to still be in A-fib, rate controlled, 90s to mid 100s Previous EKG shows a-fib w/RVR CHADVASC: 5 Pts 7.2 % stroke risk per year HAS-BLED score: 3, high risk of major bleeding Patient heart rate in the 100s today, it was likely to be elevated due to abscess. Will continue with current management Plan: ?Continue with Oral Amio 200 mg BID ?Continue with metoprolol XL 50 ?Adding metoprolol XL 50 as needed for heart rate above 150 and if BP is permissible. ?Continue with heparin drip, will transition to Eliquis at some point. #Acute exacerbation of HFpEF #HFpEF EF 55 to 60% #History of primary hypertension -Echo 05/16/2024 -estimated EF of 55 to 60%, stage I diastolic dysfunction noted, Moderate to severe posterior MAC Pt has new onset of ESRD requiring HD, requiring midodrine 10 mg QID to tolerate HD Not resuming home amlodipine at this time due to patient being A-fib and blood pressure eventually be controlled with beta-christian We recommend to give midodrine 5 to 10 mg 15 to 30 minutes before dialysis, can give additional 2.5 to 5 mg after dialysis as long as 3 hours after predialysis dose Half-life of midodrine is 9 to 10 hours and patient with CKD something to keep in mind Plan: ?Resume GDMT as able, metoprolol on board right now, as above ?Fluid restriction ?Daily weights ?Strict ins and outs ?Keep potassium and magnesium above 4 and 2 respectively #Hx of Diabetes Mellitus type II Most recent A1c 05/21/2024: 6.2 Plan: Management by primary team #Perforated gastric ulcer #Pneumoperitoneum #Peritonitis secondary to perforated gastric ulcer #Abdominal Abscess, s/p percutaneous drainage x3 Patient found to have tender abdomen, rigidity in the epigastrium, chest x-ray showed elevation of hemidiaphragm, CT abdomen showed pneumoperitoneum, concern for perforated viscus, general surgeon Dr. Santana was consulted for emergency laparotomy and possible repair of perforated gastric ulcer. Repeat CT abd/pel on 05/20 revealed Pneumoperitoneum, orogastric tube in the stomach, mild free fluid adjacent to the stomach and anterior to the pancreas. s/p Exploratory laparotomy & repair of perforated gastric ulcer - 05/15. 06/01/24: Overnight there was concern of wound dehiscence. Discussed with general surgeon per surgery superior aspect of the wound was dehiscent after removal of aiax.Surgery removal of BALAJI drain on 06/01. Repeat CT on 06/01- More pronounced fluid collection in the left abdomen below the spleen, 8.9 x 6.4cm, free fluid in the abdomen and pelvis, and Ascites -Abscess culture from 05/25 grew edna albicans ?Repeat CT abdomen pelvis shows abscess collection lower left abdomen has markedly decreased in size and the accordion drains have no output this morning Repeat CT A/P 06/10/2024 show multiple abscess, will need to drain Plan: Management by primary hospitalist team #Acute blood loss anemia, stable Likely related to perforated ulcer Hgb stable ~7.7 Plan: Management by primary hospitalist team #Acute tubular necrosis, requiring hemodialysis #Acute Hypoxic Respiratory failure #Acute Upper GI bleed - stable #Hyperlipidemia #Acute blood loss anemia, stable #Acute encephalopathy-resolved #Septic Shock - resolved #Hypoosmolar Hyponatremia, resolved Above managed by primary hospitalist team Patient seen and care discussed with my attending physician, Dr. Susan Mathews, PGY-1 Attending Provider Attestation/Addendum I have personally seen and examined the patient separately on the above date of service and discussed the plan of care with the resident. I reviewed the resident Dr. Hernandes consultation progress note and agree with the resident findings and plan in the note above and have also edited the documentation to reflect my findings and plan. Jalen Davis M.D. Interventional Cardiology
--- NOTE | 2024-06-13 14:51 | PD.RESPRO ---
Documentation for date of: 06/13/24 Senior resident attestation: Patient evaluated and examined at the bedside, plan of care discussed with rest of the team including my attending physician, except as noted. Protected hospital course complicated by gastric perforation status post emergent laparotomy and repair, ICU stay as well as multiple postop abscesses and pneumonia. Also developed ADILSON/ATN requiring hemodialysis, patient has made less than optimal recovery postop, continues to develop multiple abdominal abscesses, repeat cultures grew Edna, was started on fluconazole, currently completing more than 2 weeks of fluconazole but had repeat abdominal pelvic abscesses on abdominal imaging. IR CT-guided abscess drainage was ordered, pelvic abscess was not amenable to drainage, smaller abscess was drained, sent for microbiology. Noted uptrending WBC count and increased patient discomfort as well as somnolence, started on broad-spectrum antibiotics for aspiration versus hospital-acquired pneumonia IV Zosyn and vancomycin as well as micafungin for candidal abscess not respond to fluconazole. Will get infectious disease specialist Dr Horn on board, regarding continuing micafungin versus optimal duration of therapy for fluconazole. #Sepsis?secondary to?Peritonitis secondary to perforated gastric ulcer s/p repair #Postop intra-abdominal abscess s/p drainage, likely fungal #Pneumonia #A-fib RVR #NSTEMI type 2 #ATN, likely progressed to ESRD #Acute toxic encephalopathy?in the setting of sepsis?improving #Nutrition #History of diabetes mellitus #History of gastric ulcer #Acute blood loss anemia secondary to GI bleed Quresh pgy 2 Subjective Subjective Interval history: 06/13: No acute overnight events patient seen and examined at bedside this morning patient is saturating on 2 L of oxygen via nasal cannula. Patient has a productive cough she has tenderness in the abdomen patient is status post aspiration of left abdominal abscess however pelvic abscess too small to drain. An accordion drain was not placed due to the location of the abscess. Patient will continue antibiotics, amiodarone and metoprolol for A-fib and will DC fluconazole as patient had more than 20 days of fluconazole therapy and will continue with micafungin. Exam Vital Signs Temp Pulse Resp BP Pulse Ox O2 Del Method O2 Flow Rate 97.0 F 111 H 19 128/83 97 Nasal Cannula 1 06/13/24 12:00 06/13/24 14:36 06/13/24 12:00 06/13/24 14:36 06/13/24 12:00 06/13/24 12:00 06/13/24 12:00 FiO2 4 06/12/24 16:46 Narrative Exam GENERAL: A&Ox3 . Awake and alert NEURO: no focal neurological deficits HEENT: Atraumatic, Normocephalic. mucous membranes moist. Eyes open, symmetrical, & clear HEART: Normal Heart Sounds LUNGS: faint wheezing bilaterally and crackles ABDOMEN: soft, non-distended, non-tender, bowel sounds heard, no guarding or rebound tenderness, incision site is clean. SKIN: No Rash or ecchymoses EXTREMITIES: 1+ pitting edema bilaterally on LE, tenderness, able to move all 4 extremities, pedal pulses palpated Objective Labs 06/13/24 04:30 06/13/24 04:30 Labs: Laboratory Results - last 24 hr 06/12/24 06/12/24 06/13/24 15:10 17:08 02:15 WBC RBC Hgb 7.8 L Hct 24.7 L MCV MCH MCHC RDW Std Deviation Plt Count Neut % (Auto) Lymph % (Auto) Mchen[place] % (Auto) Eos % (Auto) Baso % (Auto) Neut # (Auto) Lymph # (Auto) Mchenry # (Auto) Eos # (Auto) Baso # (Auto) Immature Gran # (Auto) Absolute Nucleated RBC Immature Gran % Nucleated RBC % APTT 87.1 H D Sodium Potassium Chloride Carbon Dioxide Anion Gap BUN Creatinine Estim Creat Clear Calc eGFR BUN/Creatinine Ratio Glucose Calculated Osmolality Lactic Acid 1.5 Calcium Corrected Calcium Phosphorus Magnesium Total Bilirubin AST ALT Alkaline Phosphatase Total Protein Albumin Globulin Albumin/Globulin Ratio Random Vancomycin 06/13/24 06/13/24 04:30 10:15 WBC 21.3 H RBC 2.92 L Hgb 7.7 L Hct 24.2 L MCV 83 MCH 26.4 MCHC 31.8 RDW Std Deviation 56.5 H Plt Count 300 Neut % (Auto) 67 Lymph % (Auto) 18 [place]hen[place] % (Auto) 8 Eos % (Auto) 5 Baso % (Auto) 1 Neut # (Auto) 14.2 H Lymph # (Auto) 3.9 [place]henry # (Auto) 1.7 H Eos # (Auto) 1.1 H Baso # (Auto) 0.1 Immature Gran # (Auto) 0.21 H Absolute Nucleated RBC 0.20 H Immature Gran % 1 H Nucleated RBC % 1 H APTT 52.7 H D Sodium 134 L Potassium 5.2 H Chloride 95 L Carbon Dioxide 21.0 Anion Gap 18 H BUN 84 H Creatinine 7.5 H* D Estim Creat Clear Calc 6.1 L eGFR 5 L* BUN/Creatinine Ratio 11 L Glucose 86 Calculated Osmolality 292 Lactic Acid Calcium 9.4 Corrected Calcium 9.8 Phosphorus 8.3 H Magnesium 2.5 Total Bilirubin 0.7 AST 13 ALT < 7 L Alkaline Phosphatase 110 Total Protein 7.2 Albumin 3.5 Globulin 3.7 H Albumin/Globulin Ratio 0.9 L Random Vancomycin 30.1 ABG Interpretation ABG results: 05/13/24 05/15/24 05/15/24 08:29 15:28 16:03 ABG pH 7.39 7.05 L* D 7.17 L* D ABG pCO2 31 L 63 H D 45 D ABG pO2 78 L 38 L* D 84 D ABG HCO3 19 L 18 L 16 L ABG O2 Saturation 96 59 L 96 ABG Base Excess -5 L -12 L -11 L VBG pH VBG pCO2 VBG pO2 VBG Base Excess 05/16/24 05/17/24 05/18/24 04:38 04:03 04:20 ABG pH 7.28 L D 7.38 D 7.49 H D ABG pCO2 34 D 28 L 30 L ABG pO2 96 85 66 L ABG HCO3 16 L 17 L 23 ABG O2 Saturation 98 97 94 ABG Base Excess -10 L -8 L 0 VBG pH VBG pCO2 VBG pO2 VBG Base Excess 05/19/24 05/20/24 05/21/24 09:05 06:05 22:35 ABG pH 7.30 L D 7.41 D ABG pCO2 49 H D 42 ABG pO2 63 L 63 L ABG HCO3 24 27 H ABG O2 Saturation 91 93 ABG Base Excess -3 2 VBG pH 7.31 L VBG pCO2 50 VBG pO2 39 VBG Base Excess -2 05/26/24 05/29/24 04:17 12:28 ABG pH 7.38 7.42 ABG pCO2 42 35 ABG pO2 81 L 67 L ABG HCO3 25 23 ABG O2 Saturation 97 95 ABG Base Excess 0 -2 VBG pH VBG pCO2 VBG pO2 VBG Base Excess Quality Measures Quality Measures none Advance care planning discussed with:: patient and child Assessment & Plan Assessment Current Active Medications: Generic Name Dose Route Start Last Admin Trade Name Jooq PRN Reason Stop Dose Admin Acetaminophen 650 mg 06/09/24 14:11 06/12/24 17:42 Acetaminophen 325 Mg Tablet PO 07/09/24 14:10 650 mg Q6HR PRN Administration Fever >101 and pain 1-3 Hydrocodone Bitart/Acetaminophen 1 tab 06/09/24 14:11 06/11/24 16:32 Hydrocodone/Apap 5/325 Tablet PO 06/14/24 14:10 1 tab Q4HR PRN Administration PAIN SCALE 4-10(Mod-Sev Albuterol/Ipratropium 3 ml 05/27/24 18:08 06/10/24 21:12 Albuterol/Ipratropium (Duoneb) Rt Jimena 3 Ml Nebu INH 06/26/24 18:07 3 ml Q2HR PRN Administration SHORTNESS OF BREATH OR WHEEZE Amiodarone HCl 200 mg 05/29/24 15:00 06/13/24 08:07 Amiodarone Hcl 200 Mg Tablet PO 06/28/24 14:59 200 mg BID ANGELICA Administration Benzocaine 1 lozenge 05/31/24 11:53 06/09/24 23:07 Benzocaine/Menthol 1 Lozenge PO 06/30/24 11:52 1 lozenge Q4HR PRN Administration Sore throat Dextrose 25 ml 05/24/24 15:43 Dextrose 50%-Water Inj 50 Ml Syringe IV 06/23/24 15:42 Q15MIN PRN BG 50-70 responsive npo pt Dextrose 50 ml 05/24/24 15:43 Dextrose 50%-Water Inj 50 Ml Syringe IV 06/23/24 15:42 Q15MIN PRN BG <50 OR BG <70 & pt unresponsive Dronabinol 5 mg 06/07/24 10:40 06/13/24 08:06 Dronabinol 2.5 Mg Capsule PO 07/07/24 10:39 5 mg BIDAC ANGELICA Administration Furosemide 40 mg 06/09/24 10:15 06/13/24 08:08 Furosemide Inj 10 Mg/Ml 4ml Vial IVP 07/09/24 10:14 40 mg QDAY ANGELICA Administration Glucagon 1 mg 05/24/24 15:43 Glucagon Inj 1 Mg Vial IM Q15MIN PRN BG <70, and no IV access Guaifenesin 200 mg 06/10/24 08:30 06/13/24 11:23 Guaifenesin Syrup 200 Mg/10 Ml Udc PO 07/10/24 08:29 200 mg QID ANGELICA Administration Protocol Heparin Sodium (Porcine) 3,500 unit 06/07/24 18:06 06/10/24 20:38 Heparin Sod Inj 1000 Unit/Ml Vial 10 Ml INDWELLCAT 06/21/24 18:05 3,500 unit PRN PRN Administration DIALYSIS Piperacillin/Tazobactam/Dextrose 2.25 gm in 50 mls @ 100 mls/hr 06/10/24 12:10 06/13/24 14:34 Zosyn IV 06/17/24 12:09 100 mls/hr Q8HR ANGELICA Administration Micafungin Sodium 100 mg/ 100 mls @ 100 mls/hr 06/10/24 13:56 06/13/24 09:45 Sodium Chloride IV 06/25/24 13:55 100 mls/hr QDAY ANGELICA Administration Albumin Human 25 gm in 100 mls @ 100 mls/hr 06/12/24 16:40 Albuminar-25 Ivpb IV PRN PRN DIALYSIS Heparin Sodium/Dextrose 25,000 unit in 250 mls @ 9.732 mls/hr 06/12/24 19:30 06/13/24 11:58 Heparin In D5w Ivpb IV 06/26/24 19:29 10 units/kg/hr .Q24H ANGELICA 8.11 mls/hr Titration Protocol 12 UNITS/KG/HR Insulin Glargine 12 unit 05/25/24 09:00 06/13/24 08:25 Insulin Glargine (Lantus) 5 Unit/0.05 Ml (Per 5 Units) SC 06/24/24 08:59 Not Given QDAY ANGELICA Insulin Human Lispro 0 unit 05/24/24 18:00 06/13/24 11:23 Insulin Lispro (Admelog) 1 Unit/0.01 Ml Unit SC 06/23/24 17:59 Not Given Q6HR [facility] Protocol Lidocaine 1 patch 05/30/24 09:16 06/01/24 19:01 Lidocaine 5% 1 Patch TOP 06/29/24 09:15 1 patch DAILY PRN Administration BACK PAIN Metoprolol Succinate 50 mg 06/11/24 14:03 Metoprolol Succinate Xl 25 Mg Tabcr PO 07/12/24 08:59 QDAY PRN Tachycardia above 150 Metoprolol Succinate 50 mg 06/12/24 15:36 06/13/24 08:07 Metoprolol Succinate Xl 25 Mg Tabcr PO 07/09/24 21:04 50 mg QDAY ANGELICA Administration Midodrine 5 mg 06/12/24 22:00 06/13/24 14:36 Midodrine 5 Mg Tablet PO 07/12/24 21:59 Not Given TID ANGELICA Mirtazapine 15 mg 06/13/24 21:00 Mirtazapine 15 Mg Tablet PO 07/13/24 20:59 HS ANGELICA Pantoprazole Sodium 40 mg 05/15/24 21:00 06/13/24 08:07 Pantoprazole Inj 40 Mg Vial IVP 06/14/24 20:59 40 mg BID ANGELICA Administration Pharmacy Consult 1 each 05/16/24 10:27 Pharmacy Renal Dose Adjustment 1 Ea XX 06/15/24 10:26 PRN PRN CONSULT Pharmacy Consult 1 each 06/10/24 12:15 Vancomycin Pharmacy To Dose 1 Each Each IV 07/10/24 12:14 QDAY PRN CONSULT Polyethylene Glycol 17 gm 06/12/24 15:36 Polyethylene Glycol 17 Gm Packet PO 07/09/24 10:44 BID PRN constipation Protocol Sennosides 1 tab 06/09/24 10:45 06/13/24 08:11 Senna Tablet PO 07/09/24 10:44 1 tab QDAY ANGELICA Administration Protocol Sodium Chloride 3 ml 05/24/24 19:00 Sodium Chloride Rt Jimena 0.9% 3 Ml Nebu INH 06/23/24 18:59 PRN PRN SOLN Timolol Maleate 1 drop 05/28/24 18:15 06/13/24 08:11 Timolol Op Jimena 0.5% 5 Ml Btl BOTH EYES 06/27/24 18:14 1 drop DAILY ANGELICA Administration Plan Ms. Castellanos is a 69-year-old female with past medical history significant for hypertension, diabetes and history of gastric ulcers who presented to the ED on 05/13/2024 after she was found unconscious on the floor. Per chart reviewing prior to this unconsciousness patient was having abdominal pain and generalized weakness with diarrhea and shortness of breath for 2 days. Patient was admitted to the hospital for treatment and management of sepsis secondary to pneumonia. Patient was given 1 L normal saline and started on ceftriaxone and azithromycin. patient underwent ex lap surgery for perforated gastric ulcer. Patient remained intubated postop and was upgraded to the ICU. Patient continues to be on dialysis after downgrade, has BALAJI and accordion drain intact, completed bowel rest, was started on dysphagia 1 diet, surgery following case closely, will continue to monitor. #Abdominal pelvic abscess?likely Edna Repeat CT on 06/10 shows multiple abdominal and pelvic abscesses and pneumonia left base ? IV micafungin, in addition to fluconazole, increase fluconazole to 400 mg daily. ? IR CT guided abscess drainage ordered after talking to surgeon Dr. Santana. Likely to be scheduled for Wednesday. ? abscess culture on 06/02 is positive for edna albicans- will continue flucanazole -CT guided IR drainage placed today 06/12 #Perforated gastric ulcer #Hx of gastric ulcers #Pneumoperitoneum #Peritonitis secondary to perforated gastric ulcer - s/p ex lap #Abdominal Abscess, s/p percutaneous drainage x2- removed #Leukocytosis- resolved Patient found to have tender abdomen, rigidity in the epigastrium, chest x-ray showed elevation of hemidiaphragm, CT abdomen showed pneumoperitoneum, concern for perforated viscus, general surgeon Dr. Santana was consulted for emergency laparotomy and possible repair of perforated gastric ulcer. Repeat CT abd/pel on 05/20 revealed Pneumoperitoneum, orogastric tube in the stomach, mild free fluid adjacent to the stomach and anterior to the pancreas. s/p Exploratory laparotomy & repair of perforated gastric ulcer - 05/15. 06/01/24: Overnight there was concern of wound dehiscence. Discussed with general surgeon per surgery superior aspect of the wound was dehiscent after removal of aixa.Surgery removal of BALAJI drain on 06/01. Repeat CT on 06/01- More pronounced fluid collection in the left abdomen below the spleen, 8.9 x 6.4cm, free fluid in the abdomen and pelvis, and Ascites -Abscess culture from 05/25 grew edna albicans -Repeat CT A/P 06/05: abscess collection in the left lower abdomen has markedly decreased in size. the accordions drains have no output this morning. Plan: ?Patient completed antibiotic therapy, Meropenem, discontinued per ID Recommendations -repeat culture sensitivity grew yeast, patient is currently on antifungal will be continued -percutaneous abscess drain catheter placed 06/02 -Pending Abscess Culture from drain 06/02 ?Pain control Fentanyl 25 mcg every 6 hours as needed. And scheduled Union 5 mg every 6 hours ?disontinue with TPN 06/05 . Patient's diet is advanced to dysphagia 1 and have encouraged family members to bring home-cooked meals that patient would eat ?Continue dronabinol as appetite stimulator ?June 03, 2024: Patient was made n.p.o. by overnight team due to abdominal distention but we resumed her diet and p.o. medications. -Patient is status post abdominal abscess drained on 06/12/2024 -accordian drains removed on 06/05 #New onset A-fib with RVR #NSTEMI type 2 -Likely secondary to shock in the setting of abdominal surgery -EKG findings consistent with A-fib -Was on Amiodarone 200 twice daily for new onset Afib, but as she was in AFib with RVR. Plan: ?Cardiology consulted, appreciate recs -Currently on oral amiodarone 200mg and metoprolol ? Holding eliquis 5mg BID for anticoagulation, in anticipation of procedure, will start heparin drip #Nutrition ?Patient noted to have poor appetite, is finishing less than 50% of her meals, was initially on TPN which is discontinued. -Added dronabinol as appetite stimulator #Acute tubular necrosis likely progressed to ESRD #Anuria -2/2 septic shock -Patient had small amount of urine production on 06/08 however this morning no urine yet -Baseline Cr appears to be 0.7 Plan: ?Patient underwent HD fluid removal and removed 2.1 L on 05/18 and 1.5 L on 05/19, 2L fluid removed 05/21, 2.5 L fluid removed on 05/22 , 3L fluid removed on 05/23, 3L fluid removed 05/25, 2L removed 05/26, 1 L removed 05/29, 1.5 L removed 05/30, 06/01 2L fluid removed. -permanent hemodialysis cath placed on 06/02/24 -Patient will require outpatient hemodialysis, dialysis chair secured by case management - Hemodialysis as per schedule. -Started on midodrine 10 mg BID as patient has difficulty tolerating dialysis, blood pressure drops. -Renally dose medications and avoid nephrotoxic agents -repeat labs in am -lasix 40mg daily -Nephrology following #Acute exacerbation of HFpEF # HFpEF EF 55 to 60% -echo 05/16 -estimated EF of 55 to 60%, stage I diastolic dysfunction noted, Moderate to severe posterior MAC -Pt presented with SOB and 2+ edema in LE -elevated BNP from 304 --> 1110 -HD in the setting of anuria -holding guideline directed medical therapy due to shock, will resume when able -Continue dialysis, as per nephrology recommendations #Acute Hypoxic Respiratory failure #fluid overload in the setting of ATN likely multifactorial -2/2 to pulmonary edema in the setting of volume overload 2/2 ATN due to shock leading to oligoanuria versus bibasilar pneumonia -Further complicated by bilateral lung atelectasis in the setting of recent abdominal surgery and sedatives use -Patient was intubated and on mechanical ventilation (05/15) and extubated 05/18/2024, currently saturating 95-97 % on 5 L NC -Duonebs prn -chest physiotherapy ordered -mucolytics ordered #Acute Upper GI bleed - stable -Most likely secondary to perforated gastric ulcer -Patient had a single episode of black tarry stool today-likely setting of recent abdominal surgery -Continue iv Protonix. -Will monitor for alarm signs of active bleeding with melena or hematochezia #Hx of Diabetes Mellitus type II - A1C 6.3 % 05/21/2024 - Hold home glipizide and januvia - Plan: Continue to monitor blood sugars - Insulin sliding scale ordered with lantus 12 units #Hyperlipidemia -Unclear if patient takes any medications as a statin is not on list of home meds #Primary Hypertension Holding on resuming home blood pressure medicines at this time #Acute blood loss anemia, stable 2/2 perforated ulcer- S/P surgical repair Hgb stable 9.6 Hct 28.3 patient received 2 units of pRBC 05/18 due to acutely drop in Hgb below 7. No signs of active bleeding. Plan: -Continue to monitor daily CBC. transfuse for hemoglobin less than 7. # Acute encephalopathy-resolved -Likely multifactorial secondary to sepsis versus metabolic versus neurologic versus medication -Patient is awake and alert and follows commands. Patient is able to respond to yes or no questions verbally #Shock - resolved #Hypoosmolar Hyponatremia, resolved Disposition: Telemetry DVT prophylaxis: Eliquis 5 mg twice daily anticoagulation for A-fib GI prophylaxis:Protonix 40 BID Diet: Dysphagia 1 diet CODE STATUS: Full Assessment and plan discussed with my senior resident physician Dr. Quiñonez and my Attending physician Dr. Luis Enrique Rivera ([id number])- Internal medicine resident Attending Provider Attestation/Addendum I reviewed labs, imaging, EKG, home medications and prior available records. Face to face evaluation was performed by me. I have personally examined the patient and discussed assessment and plan with the IM team. I reviewed the resident note and agree with the plan with exceptions as below. Hospital-acquired pneumonia Sepsis due to pneumonia Perforated gastric ulcer Intra-abdominal abscess status post drain X2 ADILSON reaching hemodialysis point, dialysis dependent Atrial fibrillation with controlled ventricular rhythm Acute hypotension WBC is uptrending and patient is tachycardic. Ordered chest x-ray that showed bibasilar pneumonia. Restarted vancomycin/cefepime given the uptrending WBC Changed antifungal to micafungin. Appreciate ID recommendations Discussed with general surgery: Recommended IR guided drainage to rule out recurrence of abdominal abscess. IR consulted to drain the abscess Continue PPI. Not a candidate for PEG tube placement given her recent surgery Continue hemodialysis per nephrology schedule Continue amiodarone and Eliquis Encourage oral intake as TPN is weaned off. Ordered Marinol for appetite stimulation Held antihypertensive treatment given borderline BP
[2024-06-13] MEDS: ALBUTEROL/IPRATROPIUM (Duoneb) RT SOL 3 ML NEBU INH (19:20)
[2024-06-13] MEDS: APIXABAN 2.5 MG TABLET 5 MG PO (21:10)
[2024-06-13] MEDS: MIRTAZAPINE 15 MG TABLET PO (21:10)
--- NOTE | 2024-06-13 21:35 | ESPR_ITS ---
Documentation for date of: 06/13/24 Subjective Subjective Interval history: Patient evaluated Hemoglobin hematocrit 7.7 and 24.2 Exam Vital Signs Temp Pulse Resp BP Pulse Ox O2 Del Method O2 Flow Rate 97.0 F 102 H 20 119/79 99 Nasal Cannula 1 06/13/24 20:00 06/13/24 21:11 06/13/24 20:00 06/13/24 21:11 06/13/24 20:00 06/13/24 20:00 06/13/24 20:00 FiO2 4 06/12/24 16:46 Objective Labs 06/13/24 04:30 06/13/24 04:30 Labs: Laboratory Results - last 24 hr 06/13/24 06/13/24 06/13/24 02:15 04:30 10:15 WBC 21.3 H RBC 2.92 L Hgb 7.7 L Hct 24.2 L MCV 83 MCH 26.4 MCHC 31.8 RDW Std Deviation 56.5 H Plt Count 300 Neut % (Auto) 67 Lymph % (Auto) 18 [place] % (Auto) 8 Eos % (Auto) 5 Baso % (Auto) 1 Neut # (Auto) 14.2 H Lymph # (Auto) 3.9 [place] # (Auto) 1.7 H Eos # (Auto) 1.1 H Baso # (Auto) 0.1 Immature Gran # (Auto) 0.21 H Absolute Nucleated RBC 0.20 H Immature Gran % 1 H Nucleated RBC % 1 H APTT 87.1 H D 52.7 H D Sodium 134 L Potassium 5.2 H Chloride 95 L Carbon Dioxide 21.0 Anion Gap 18 H BUN 84 H Creatinine 7.5 H* D Estim Creat Clear Calc 6.1 L eGFR 5 L* BUN/Creatinine Ratio 11 L Glucose 86 Calculated Osmolality 292 Calcium 9.4 Corrected Calcium 9.8 Phosphorus 8.3 H Magnesium 2.5 Total Bilirubin 0.7 AST 13 ALT < 7 L Alkaline Phosphatase 110 Total Protein 7.2 Albumin 3.5 Globulin 3.7 H Albumin/Globulin Ratio 0.9 L Random Vancomycin 30.1 06/13/24 17:52 WBC RBC Hgb Hct MCV MCH MCHC RDW Std Deviation Plt Count Neut % (Auto) Lymph % (Auto) [place] % (Auto) Eos % (Auto) Baso % (Auto) Neut # (Auto) Lymph # (Auto) [place] # (Auto) Eos # (Auto) Baso # (Auto) Immature Gran # (Auto) Absolute Nucleated RBC Immature Gran % Nucleated RBC % APTT 77.0 H D Sodium Potassium Chloride Carbon Dioxide Anion Gap BUN Creatinine Estim Creat Clear Calc eGFR BUN/Creatinine Ratio Glucose Calculated Osmolality Calcium Corrected Calcium Phosphorus Magnesium Total Bilirubin AST ALT Alkaline Phosphatase Total Protein Albumin Globulin Albumin/Globulin Ratio Random Vancomycin Impressions Impression: # Poor p.o. intake # End-stage renal disease on hemodialysis # Status post exploratory laparotomy status post gastric perforation from gastric ulcer ABG Interpretation ABG results: 05/13/24 05/15/24 05/15/24 08:29 15:28 16:03 ABG pH 7.39 7.05 L* D 7.17 L* D ABG pCO2 31 L 63 H D 45 D ABG pO2 78 L 38 L* D 84 D ABG HCO3 19 L 18 L 16 L ABG O2 Saturation 96 59 L 96 ABG Base Excess -5 L -12 L -11 L VBG pH VBG pCO2 VBG pO2 VBG Base Excess 05/16/24 05/17/24 05/18/24 04:38 04:03 04:20 ABG pH 7.28 L D 7.38 D 7.49 H D ABG pCO2 34 D 28 L 30 L ABG pO2 96 85 66 L ABG HCO3 16 L 17 L 23 ABG O2 Saturation 98 97 94 ABG Base Excess -10 L -8 L 0 VBG pH VBG pCO2 VBG pO2 VBG Base Excess 05/19/24 05/20/24 05/21/24 09:05 06:05 22:35 ABG pH 7.30 L D 7.41 D ABG pCO2 49 H D 42 ABG pO2 63 L 63 L ABG HCO3 24 27 H ABG O2 Saturation 91 93 ABG Base Excess -3 2 VBG pH 7.31 L VBG pCO2 50 VBG pO2 39 VBG Base Excess -2 05/26/24 05/29/24 04:17 12:28 ABG pH 7.38 7.42 ABG pCO2 42 35 ABG pO2 81 L 67 L ABG HCO3 25 23 ABG O2 Saturation 97 95 ABG Base Excess 0 -2 VBG pH VBG pCO2 VBG pO2 VBG Base Excess Assessment & Plan A&P Narrative abd abscess, stain neg. later grew c albicans so on flucon now here since 05/13.usual rx for most things is 7d. left on merrem thru weekend but collection in abd eventually grew a yeast, so ok for another 7d rx will see again if requested Time Spent With Patient Time: Total time spent is greater than 50% in coordination of care (as documented) at patient's floor/unit and/or counseling patient:
--- NOTE | 2024-06-13 23:13 | PD.NEUROPROG ---
Documentation for date of: 06/13/24 Subjective Subjective Interval history: Patient was seen in telemetry today at the bedside, not much respiratory distress noted today as she had dialysis today. Exam - Neurology Vital Signs Temp Pulse Resp BP Pulse Ox O2 Del Method O2 Flow Rate 97.0 F 102 H 20 119/79 99 Nasal Cannula 1 06/13/24 20:00 06/13/24 21:11 06/13/24 20:00 06/13/24 21:11 06/13/24 20:00 06/13/24 20:00 06/13/24 20:00 FiO2 4 06/12/24 16:46 Narrative Exam GENERAL APPEARANCE: Well-developed, obese built female in mild distress HEENT: Normocephalic, atraumatic, extraocular movements intact. Pupils: Equal reacting to light NECK: Supple, no JVD or bruits. CARDIOVASULAR: Heart: S1, S2 heard, irregular without S3-S4 or murmur no rubs or gallops. LUNGS/CHEST: Bilateral Rales and rhonchi heard. ABDOMEN: Soft, nontender, with normal bowel sounds. No pulsatile masses. No rebound, rigidity, or guarding. Normal inspection and palpation. EXTREMITIES: Significant edema in both upper and lower extremities. SKIN: Warm and dry without rashes. Normal inspection. MUSCULOSKELETAL: No cervical, thoracic, lumbar or midline bony tenderness. Normal inspection. NEURO: Alert, awake, follows commands consistently. Brainstem function: Intact. Moves all 4 extremities but significantly weak all over, no signs of meningeal irritation noted. PSYCHIATRIC: Mood and affect: Normal Objective Labs 06/13/24 04:30 06/13/24 04:30 Labs: Laboratory Results - last 24 hr 06/13/24 06/13/24 06/13/24 02:15 04:30 10:15 WBC 21.3 H RBC 2.92 L Hgb 7.7 L Hct 24.2 L MCV 83 MCH 26.4 MCHC 31.8 RDW Std Deviation 56.5 H Plt Count 300 Neut % (Auto) 67 Lymph % (Auto) 18 [place] % (Auto) 8 Eos % (Auto) 5 Baso % (Auto) 1 Neut # (Auto) 14.2 H Lymph # (Auto) 3.9 [place] # (Auto) 1.7 H Eos # (Auto) 1.1 H Baso # (Auto) 0.1 Immature Gran # (Auto) 0.21 H Absolute Nucleated RBC 0.20 H Immature Gran % 1 H Nucleated RBC % 1 H APTT 87.1 H D 52.7 H D Sodium 134 L Potassium 5.2 H Chloride 95 L Carbon Dioxide 21.0 Anion Gap 18 H BUN 84 H Creatinine 7.5 H* D Estim Creat Clear Calc 6.1 L eGFR 5 L* BUN/Creatinine Ratio 11 L Glucose 86 Calculated Osmolality 292 Calcium 9.4 Corrected Calcium 9.8 Phosphorus 8.3 H Magnesium 2.5 Total Bilirubin 0.7 AST 13 ALT < 7 L Alkaline Phosphatase 110 Total Protein 7.2 Albumin 3.5 Globulin 3.7 H Albumin/Globulin Ratio 0.9 L Random Vancomycin 30.1 06/13/24 17:52 WBC RBC Hgb Hct MCV MCH MCHC RDW Std Deviation Plt Count Neut % (Auto) Lymph % (Auto) [place] % (Auto) Eos % (Auto) Baso % (Auto) Neut # (Auto) Lymph # (Auto) [place] # (Auto) Eos # (Auto) Baso # (Auto) Immature Gran # (Auto) Absolute Nucleated RBC Immature Gran % Nucleated RBC % APTT 77.0 H D Sodium Potassium Chloride Carbon Dioxide Anion Gap BUN Creatinine Estim Creat Clear Calc eGFR BUN/Creatinine Ratio Glucose Calculated Osmolality Calcium Corrected Calcium Phosphorus Magnesium Total Bilirubin AST ALT Alkaline Phosphatase Total Protein Albumin Globulin Albumin/Globulin Ratio Random Vancomycin ABG Interpretation ABG results: 05/13/24 05/15/24 05/15/24 08:29 15:28 16:03 ABG pH 7.39 7.05 L* D 7.17 L* D ABG pCO2 31 L 63 H D 45 D ABG pO2 78 L 38 L* D 84 D ABG HCO3 19 L 18 L 16 L ABG O2 Saturation 96 59 L 96 ABG Base Excess -5 L -12 L -11 L VBG pH VBG pCO2 VBG pO2 VBG Base Excess 05/16/24 05/17/24 05/18/24 04:38 04:03 04:20 ABG pH 7.28 L D 7.38 D 7.49 H D ABG pCO2 34 D 28 L 30 L ABG pO2 96 85 66 L ABG HCO3 16 L 17 L 23 ABG O2 Saturation 98 97 94 ABG Base Excess -10 L -8 L 0 VBG pH VBG pCO2 VBG pO2 VBG Base Excess 05/19/24 05/20/24 05/21/24 09:05 06:05 22:35 ABG pH 7.30 L D 7.41 D ABG pCO2 49 H D 42 ABG pO2 63 L 63 L ABG HCO3 24 27 H ABG O2 Saturation 91 93 ABG Base Excess -3 2 VBG pH 7.31 L VBG pCO2 50 VBG pO2 39 VBG Base Excess -2 05/26/24 05/29/24 04:17 12:28 ABG pH 7.38 7.42 ABG pCO2 42 35 ABG pO2 81 L 67 L ABG HCO3 25 23 ABG O2 Saturation 97 95 ABG Base Excess 0 -2 VBG pH VBG pCO2 VBG pO2 VBG Base Excess Assessment & Plan Additional Assessment & Plan Additional Plan: 69-year-old female with past medical history of CKD stage III, prediabetes, hypertension who was found unconscious in her room. As well as diarrhea and shortness of breath. Admitted for sepsis secondary to pneumonia and acute metabolic encephalopathy #Acute metabolic encephalopathy- currently in telemetry, significant improvement noted, close to baseline #Generalized weakness --Brain MRI with MRA shows significant stenoses in posterior cerebral artery, no acute infarction noted -Will continue with the current management as per primary team Continue with the passive range of motion exercises prevent contracture Physical therapy as she tolerates. Noted that she has been accepted to inpatient rehab. She will be transferred to [place] after being cleared by surgery team with regards to the abscess sites
[2024-06-14] VITALS (29 sets, daily range): BP systolic 78–142; BP diastolic 45–96; PULSE 59–131; RESP 2–22; TEMP 36–36.6; O2SAT 93–100; BMI 35.1
[2024-06-14] MEDS: ALBUTEROL/IPRATROPIUM (Duoneb) RT SOL 3 ML NEBU INH ×2 (01:18→23:56)
[2024-06-14] MEDS: guaiFENesin SYRUP 200 MG/10 ML UDC PO ×3 (05:54→21:26)
[2024-06-14] MEDS: PIPER/TAZO 2.25 GM 2.25 GM/50 ML BAG IV ×3 (05:54→21:26)
[2024-06-14 06:39] LABS: Vancomycin,Random 27.7 mcg/mL
[2024-06-14 06:51] LABS: INR 1.4 (0.9-1.3); Prothrombin Time 15.2 Seconds (9.0-12.2)
[2024-06-14 07:05] LABS: Basophils # (Auto) 0.2 Thou/mm3 (0.0-0.2); Basophils % (Auto) 1 % (0-2.5); Eosinophils # (Auto) 0.8 Thou/mm3 (0.0-0.5); Eosinophils % (Auto) 4 % (0-10); Hematocrit 23.9 % (36.0-46.0); Immature Granulocytes % (Auto) 2 % (0-0); Immature Granulocytes Auto 0.36 Thou/mm3 (0.00-0.00); Lymphocytes # (Auto) 3.9 Thou/mm3 (1.0-4.8); Lymphocytes % (Auto) 20 % (10-50); Mean Corpuscular HGB Conc 32.2 g/dl (31.0-37.0); Mean Corpuscular Hemoglobin 26.1 pg (25.0-35.0); Mean Corpuscular Volume 81 fL (80-100); Monocytes # (Auto) 1.6 Thou/mm3 (0.0-0.8); Monocytes % (Auto) 8 % (0-12); Neutrophils # (Auto) 12.9 Thou/mm3 (1.8-7.7); Neutrophils % (Auto) 65 % (37-80); Nucleated Red Blood Cell # 0.27 Thou/mm3 (0.00-0.00); Nucleated Red Blood Cell % 1 /100 WBC (0); Platelet Count 360 Thou/mm3 (140-440); RDW Standard Deviation 55.8 fL (36.4-46.3); Red Blood Count 2.95 Miln/mm3 (4.00-5.20); White Blood Count 19.8 Thou/mm3 (3.6-11.0)
[2024-06-14] MEDS: droNABinol 2.5 MG CAPSULE 5 MG PO ×2 (07:41→17:03)
[2024-06-14 07:42] LABS: Alanine Aminotransferase < 7 U/L (10-49); Albumin, Serum 3.6 gm/dL (3.4-4.8); Albumin/Globulin Ratio 0.9 (1.2-2.2); Alkaline Phosphatase 109 U/L (46-116); Anion Gap 21 (7-16); Aspartate Amino Transferase 16 U/L (0-34); BUN/Creatinine Ratio 12 Ratio (12-20); Bilirubin,Total 0.6 mg/dL (0.3-1.2); Blood Urea Nitrogen 98 mg/dL (9-23); Calcium 9.5 mg/dL (8.3-10.6); Calcium (Corrected) 9.8 mg/dL (8.5-10.1); Carbon Dioxide 18.5 mMol/L (20.0-31.0); Chloride 94 mMol/L (98-107); Creatinine (Component) 8.3 mg/dL (0.6-1.3); Estimated Creatinine Clearance 5.5 mL/min (>60); Globulin 3.9 gm/dL (2.3-3.5); Glucose 84 mg/dL (74-106); Osmolality,Calculated 295 (275-295); Sodium 133 mMol/L (136-145); Total Protein 7.5 gm/dL (5.7-8.2); eGFR 5 See Note
[2024-06-14 07:43] LABS: Hemoglobin 7.7 g/dL (12.0-16.0)
[2024-06-14] MEDS: AMIODARONE HCL 200 MG TABLET PO ×2 (08:07→21:30)
[2024-06-14 08:31] LABS: Magnesium 2.7 mg/dL (1.6-2.6)
[2024-06-14 08:54] LABS: Phosphorous 9.8 mg/dL (2.4-5.1)
[2024-06-14] MEDS: ALBUMIN HUMAN 25% IVPB 25 GM/100 ML BTL IV (10:19)
[2024-06-14] MEDS: EPOETIN ALFA-EPBX INJ 40,000 UNIT/ML VIAL (ESRD) 10000 UNIT SC (10:19)
[2024-06-14] MEDS: HEPARIN SOD INJ 1000 UNIT/ML VIAL 10 ML 1500 UNIT INDWELLCAT (10:20)
--- NOTE | 2024-06-14 10:51 | ESPR_ITS ---
Documentation for date of: 06/14/24 Subjective Subjective Interval history: Mr. Castellanos is a [id number] with past medical history of prediabetes, CKD, hypertension, history of ulcers who was admitted to [facility] for sepsis secondary to pneumonia and acute metabolic encephalopathy. Patient was BIBA to the ED after being found unconscious on the floor. According to the son on admission patient's daughter found the patient at 3 AM passed out on the floor and unresponsive. Family is unaware along the patient was on the floor. 2 days ago patient started to develop abdominal pain and weakness all over her body associated with some diarrhea and shortness of breath. Patient's abdominal pain comes and goes from right side to left side of the abdomen. ED course patient was hypertensive tachycardic tachypneic and was saturating 92% on 5 L nasal cannula ED labs significant for WBCs 24.3, bicarb 19.6, glucose 259, lactic acid 2.2, BNP 304, troponin 0.09. 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, colonic diverticulosis, Cervical spine CT showed 3 mm radiolucency in C3 vertebral body Chest CTA showed mild aneurysmal dilatation ascending thoracic aorta AP dimension 4.3 cm and pulmonary artery hypertension with moderate vascular congestion Face CT shows no acute facial fracture, Lumbar spine CT shows no acute lumbar fracture severe acquired spinal stenosis L4-L5, Thoracic spine CT showed no acute fracture Brain MRI with MRA showed equally focal restricted diffusion brainstem medullary level significant stenosis of right P1 P2 segment posterior cerebral artery Postadmission, cardiology was consulted on admission because of elevated troponins, suspicion of NSTEMI type II, patient has acute decompensated heart failure per cardiology evaluation, neurology consulted because of patient's acute metabolic encephalopathy and GI was consulted for suspicion of GI bleed. Eventually on 05/15 rapid response was called for worsening chest pain, patient's map was consistently in 70s, was tachycardic tachypneic. CT angiogram showed pneumoperitoneum multiple air droplets adjacent to and within wall of stomach with suspicion of gastric perforation. General surgery was consulted for emergency surgery and patient had exploratory laparotomy with repair of perforated gastric ulcer with an omental patch. Patient was upgraded to ICU postop for further management patient currently on Levophed and vasopressor due to distributive shock, currently sedated and intubated on mechanical ventilation. Nephrology consulted due to concern of ADILSON. 06/10/2024 patient currently seen in telemetry. Patient complaining of abdominal pain. Scheduled for dialysis today. Although did have some trouble with catheter before. tPA was placed. Catheter could not be exchanged yesterday. Will monitor catheter function closely. Unfortunately IR not available until Wednesday. 06/11/2024 patient currently seen in telemetry. Sick looking. Did receive dialysis yesterday. Still having some abdominal discomfort.WBC 28.7, hemoglobin 7.8, platelets 261. Sodium 134, potassium 4.8, BUN 53, creatinine 5.6, magnesium 2.4, LFTs normal, albumin 4.0 chest x-ray showed pneumonia/mild heart failure. CT abdomen repeat showed multiple abdominal and pelvic abscesses. Prognosis remains guarded. 06/12/2024 patient was seen and examined at bedside. Patient appears to be fluid overloaded, saturating 97% on 2 L of oxygen, blood pressure of 93/67, pulse rate of 97. her WBC downtrended from 28.7-22.9, CT scan was repeated on the and it showed multiple intra-abdominal abscesses. Hemoglobin stable at 8.1, serum sodium 134, calcium 5.1, BUN of 74 uptrending, serum creatinine increased from 5.67, glucose 99, calcium 9.5, phosphate 8.1. Urine output documented as 0. Today patient is scheduled for dialysis. 06/13/2024 Patient was seen and examined at bedside. No overnight incidents patient saturating 94 on 2 L of oxygen. Patient still require daily dialysis. Treatment team repeated CT scan showed multiple abscesses that believe that most likely secondary to fungal infection, there are pending Dr Horn's recommendations to escalate treatment. Today her WBCs 21.3 yesterday it was 22.9, hemoglobin stable at 7.7, sodium 134, potassium 5.2, chloride 95, serum BUN is 83 and creatinine 7.5. Patient seems to be overloaded next dialysis is going to be tomorrow as per her schedule. 06/14/2024, patient was seen and examined at bedside. Patient today seems to be a little bit more in distress.Her vital signs shows blood pressure of 133/88, pulse rate of 65, she is saturating 96 on 2 L of oxygen. Hemoglobin stable at 7.7, today her potassium is 6.0 patient will undergo dialysis today. Serum creatinine 8.3, BUN of 98. Primary team started the patient on doxepin and hope to improve her appetite, at this time patient is on micafungin. 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 Exam Vital Signs Temp Pulse Resp BP Pulse Ox O2 Del Method O2 Flow Rate 97.8 F 120 H 21 H 87/54 L 98 Nasal Cannula 1 06/14/24 09:40 06/14/24 10:45 06/14/24 09:40 06/14/24 10:45 06/14/24 09:40 06/14/24 08:00 06/14/24 09:40 FiO2 4 06/14/24 09:40 Narrative Exam PatientGEN: AOx3, flat mood and affect, in semi-sitting position HEENT: NC/AC, oral mucosa moist, neck supple CVS: RRR, S1-S2 present, no murmurs appreciated RESP: faint wheezing on the right side, diffuse fine crepitations bilaterally more on the basal area. GI: soft, non distended, non tender, NBS MSK: able to move all 4 limbs however significant generalized weakness, +2 on the right side, lower extremity edema +2 of the left side. SKIN: warm and dry [employer]: CN II-XII and Sensation grossly intact. Objective Labs 06/15/24 06:18 06/15/24 06:18 Labs: Laboratory Results - last 24 hr 06/13/24 06/13/24 06/14/24 10:15 17:52 05:48 WBC 19.8 H RBC 2.95 L Hgb 7.7 L Hct 23.9 L MCV 81 MCH 26.1 MCHC 32.2 RDW Std Deviation 55.8 H Plt Count 360 D Neut % (Auto) 65 Lymph % (Auto) 20 [place] % (Auto) 8 Eos % (Auto) 4 Baso % (Auto) 1 Neut # (Auto) 12.9 H Lymph # (Auto) 3.9 [place] # (Auto) 1.6 H Eos # (Auto) 0.8 H Baso # (Auto) 0.2 Immature Gran # (Auto) 0.36 H Absolute Nucleated RBC 0.27 H Immature Gran % 2 H Nucleated RBC % 1 H PT 15.2 H INR 1.4 H APTT 52.7 H D 77.0 H D 43.0 H D Sodium 133 L Potassium 6.0 H D Chloride 94 L Carbon Dioxide 18.5 L Anion Gap 21 H BUN 98 H Creatinine 8.3 H* D Estim Creat Clear Calc 5.5 L eGFR 5 L* BUN/Creatinine Ratio 12 Glucose 84 Calculated Osmolality 295 Calcium 9.5 Corrected Calcium 9.8 Phosphorus 9.8 H Magnesium 2.7 H Total Bilirubin 0.6 AST 16 ALT < 7 L Alkaline Phosphatase 109 Total Protein 7.5 Albumin 3.6 Globulin 3.9 H Albumin/Globulin Ratio 0.9 L Random Vancomycin 27.7 ABG Interpretation ABG results: 05/13/24 05/15/24 05/15/24 08:29 15:28 16:03 ABG pH 7.39 7.05 L* D 7.17 L* D ABG pCO2 31 L 63 H D 45 D ABG pO2 78 L 38 L* D 84 D ABG HCO3 19 L 18 L 16 L ABG O2 Saturation 96 59 L 96 ABG Base Excess -5 L -12 L -11 L VBG pH VBG pCO2 VBG pO2 VBG Base Excess 05/16/24 05/17/24 05/18/24 04:38 04:03 04:20 ABG pH 7.28 L D 7.38 D 7.49 H D ABG pCO2 34 D 28 L 30 L ABG pO2 96 85 66 L ABG HCO3 16 L 17 L 23 ABG O2 Saturation 98 97 94 ABG Base Excess -10 L -8 L 0 VBG pH VBG pCO2 VBG pO2 VBG Base Excess 05/19/24 05/20/24 05/21/24 09:05 06:05 22:35 ABG pH 7.30 L D 7.41 D ABG pCO2 49 H D 42 ABG pO2 63 L 63 L ABG HCO3 24 27 H ABG O2 Saturation 91 93 ABG Base Excess -3 2 VBG pH 7.31 L VBG pCO2 50 VBG pO2 39 VBG Base Excess -2 05/26/24 05/29/24 04:17 12:28 ABG pH 7.38 7.42 ABG pCO2 42 35 ABG pO2 81 L 67 L ABG HCO3 25 23 ABG O2 Saturation 97 95 ABG Base Excess 0 -2 VBG pH VBG pCO2 VBG pO2 VBG Base Excess Quality Measures Quality Measures none Advance care planning discussed with:: patient Assessment & Plan Assessment Current Active Medications: Generic Name Dose Route Start Last Admin Trade Name Freq PRN Reason Stop Dose Admin Acetaminophen 650 mg 06/09/24 14:11 06/12/24 17:42 Acetaminophen 325 Mg Tablet PO 07/09/24 14:10 650 mg Q6HR PRN Administration Fever >101 and pain 1-3 Hydrocodone Bitart/Acetaminophen 1 tab 06/09/24 14:11 06/11/24 16:32 Hydrocodone/Apap 5/325 Tablet PO 06/14/24 14:10 1 tab Q4HR PRN Administration PAIN SCALE 4-10(Mod-Sev Albuterol/Ipratropium 3 ml 05/27/24 18:08 06/14/24 01:18 Albuterol/Ipratropium (Duoneb) Rt Jimena 3 Ml Nebu INH 06/26/24 18:07 3 ml Q2HR PRN Administration SHORTNESS OF BREATH OR WHEEZE Amiodarone HCl 200 mg 05/29/24 15:00 06/14/24 08:07 Amiodarone Hcl 200 Mg Tablet PO 06/28/24 14:59 200 mg BID ANGELICA Administration Apixaban 5 mg 06/13/24 21:00 06/14/24 09:45 Apixaban 2.5 Mg Tablet PO 07/13/24 20:59 Not Given BID ANGELICA Benzocaine 1 lozenge 05/31/24 11:53 06/09/24 23:07 Benzocaine/Menthol 1 Lozenge PO 06/30/24 11:52 1 lozenge Q4HR PRN Administration Sore throat Dextrose 25 ml 05/24/24 15:43 Dextrose 50%-Water Inj 50 Ml Syringe IV 06/23/24 15:42 Q15MIN PRN BG 50-70 responsive npo pt Dextrose 50 ml 05/24/24 15:43 Dextrose 50%-Water Inj 50 Ml Syringe IV 06/23/24 15:42 Q15MIN PRN BG <50 OR BG <70 & pt unresponsive Dronabinol 5 mg 06/07/24 10:40 06/14/24 07:41 Dronabinol 2.5 Mg Capsule PO 07/07/24 10:39 5 mg BIDAC ANGELICA Administration Epoetin Chang 10,000 unit 06/14/24 14:00 06/14/24 10:19 Epoetin Chang-Epbx Inj 40,000 Unit/Ml Vial (Esrd) SC 06/14/24 14:01 10,000 unit X1 ONE Administration Furosemide 40 mg 06/09/24 10:15 06/14/24 09:45 Furosemide Inj 10 Mg/Ml 4ml Vial IVP 07/09/24 10:14 Not Given QDAY ANGELICA Glucagon 1 mg 05/24/24 15:43 Glucagon Inj 1 Mg Vial IM Q15MIN PRN BG <70, and no IV access Guaifenesin 200 mg 06/10/24 08:30 06/14/24 05:54 Guaifenesin Syrup 200 Mg/10 Ml Udc PO 07/10/24 08:29 200 mg QID ANGELICA Administration Protocol Heparin Sodium (Porcine) 3,500 unit 06/07/24 18:06 06/10/24 20:38 Heparin Sod Inj 1000 Unit/Ml Vial 10 Ml INDWELLCAT 06/21/24 18:05 3,500 unit PRN PRN Administration DIALYSIS Piperacillin/Tazobactam/Dextrose 2.25 gm in 50 mls @ 100 mls/hr 06/10/24 12:10 06/14/24 05:54 Zosyn IV 06/17/24 12:09 100 mls/hr Q8HR ANGELICA Administration Micafungin Sodium 100 mg/ 100 mls @ 100 mls/hr 06/10/24 13:56 06/13/24 10:45 Sodium Chloride IV 06/25/24 13:55 Infused QDAY ANGELICA Infusion Albumin Human 25 gm in 100 mls @ 100 mls/hr 06/12/24 16:40 06/14/24 10:19 Albuminar-25 Ivpb IV 100 mls/hr PRN PRN Administration DIALYSIS Insulin Glargine 12 unit 05/25/24 09:00 06/14/24 09:45 Insulin Glargine (Lantus) 5 Unit/0.05 Ml (Per 5 Units) SC 06/24/24 08:59 Not Given QDAY ANGELICA Insulin Human Lispro 0 unit 05/24/24 18:00 06/14/24 05:54 Insulin Lispro (Admelog) 1 Unit/0.01 Ml Unit SC 06/23/24 17:59 Not Given Q6HR [facility] Protocol Lidocaine 1 patch 05/30/24 09:16 06/01/24 19:01 Lidocaine 5% 1 Patch TOP 06/29/24 09:15 1 patch DAILY PRN Administration BACK PAIN Metoprolol Succinate 50 mg 06/12/24 15:36 06/14/24 09:45 Metoprolol Succinate Xl 25 Mg Tabcr PO 07/09/24 21:04 Not Given QDAY ANGELICA Metoprolol Tartrate 50 mg 06/14/24 08:37 Metoprolol Tartrate 25 Mg Tablet PO 07/12/24 08:59 QDAY PRN Tachycardia above 150 Midodrine 5 mg 06/12/24 22:00 06/14/24 05:56 Midodrine 5 Mg Tablet PO 07/12/24 21:59 Not Given TID ANGELICA Mirtazapine 15 mg 06/13/24 21:00 06/13/24 21:10 Mirtazapine 15 Mg Tablet PO 07/13/24 20:59 15 mg HS ANGELICA Administration Pantoprazole Sodium 40 mg 05/15/24 21:00 06/13/24 21:10 Pantoprazole Inj 40 Mg Vial IVP 06/14/24 20:59 40 mg BID ANGELICA Administration Pharmacy Consult 1 each 05/16/24 10:27 Pharmacy Renal Dose Adjustment 1 Ea XX 06/15/24 10:26 PRN PRN CONSULT Pharmacy Consult 1 each 06/10/24 12:15 Vancomycin Pharmacy To Dose 1 Each Each IV 07/10/24 12:14 QDAY PRN CONSULT Polyethylene Glycol 17 gm 06/12/24 15:36 Polyethylene Glycol 17 Gm Packet PO 07/09/24 10:44 BID PRN constipation Protocol Sennosides 1 tab 06/09/24 10:45 06/13/24 08:11 Senna Tablet PO 07/09/24 10:44 1 tab QDAY ANGELICA Administration Protocol Sodium Chloride 3 ml 05/24/24 19:00 Sodium Chloride Rt Jimena 0.9% 3 Ml Nebu INH 06/23/24 18:59 PRN PRN SOLN Timolol Maleate 1 drop 05/28/24 18:15 06/13/24 08:11 Timolol Op Jimena 0.5% 5 Ml Btl BOTH EYES 06/27/24 18:14 1 drop DAILY ANGELICA Administration Plan Mr. Castellanos is a [id number] with past medical history of prediabetes, CKD, hypertension, history of ulcers who was admitted to [facility] for sepsis secondary to pneumonia and acute metabolic encephalopathy. Patient is currently sedated intubated in ICU status post exploratory laparotomy with repair of perforated gastric ulcer with an omental patch. Nephrology consulted for acute kidney injury. Assessment and plan #Acute kidney injury on dialysis M/W/F #Acute Tubular Necrosis 2/2 shock # Fluid overload Patient currently seems to be in ATN probably ischemic from fluctuations in blood pressure and underlying shock- started her on dialysis. Plan ? Dialysis today?to remove 2 L today. ? Pharmacy to dose medications ? Avoid nephrotoxic medications ? Continue strict in and out ? Recommend to monitor fluid that was brought from home as it may contain high salt which may worsen her fluid overload. #Acute ischemic stroke #Acute decompensated HF #Hyperlipidemia #Primary Hypertension #Acute Hypoxic Respiratory failure #Peritonitis secondary to perforated gastric ulcer- s/p sx, drains removed #Acute Upper GI bleed #Diabetes Mellitus type II #Acute anemia Plan ? Follow-up with the primary team recommendations Thank you for your consultation, please do not hesitate to reach out if you have any concerns or questions. All above problems per primary team. Prognosis remains guarded. - Patient's plan and care discussed with my attending, Dr. Mata Sifuentes MD Internal Medicine PGY-2 Attending Provider Attestation/Addendum Seen and examined with resident physician Dr. Barton. Note reviewed, agree with findings and recommendations. Patient currently seen on dialysis. Tolerating dialysis without any problems. Hemodialysis for 3 hours, 2K, ultrafiltration 2-3 L, Epogen 6000, no heparin ordered. Plan of care discussed with the dialysis nurse. Please see dialysis flowsheet for further details.
--- NOTE | 2024-06-14 11:23 | PC.SS ---
Follow up note: Pt is on 2 liters of O2. Dialysis chair time has been provided to [facility] Wednesday and Wednesday at 10:15am at [facility]. Per Monie at [facility] new dialysis patients are unable to start 1st dialysis sessions on weekend. Pt is still on IV antibiotic.
[2024-06-14] MEDS: HEPARIN SOD INJ 1000 UNIT/ML VIAL 10 ML 3500 UNIT INDWELLCAT (12:37)
[2024-06-14] MEDS: MICAFUNGIN SODIUM INJ 100 MG in SODIUM CHLORIDE 0.9% 100 ML IV (13:22)
--- NOTE | 2024-06-14 13:48 | ESPR_ITS ---
Documentation for date of: 06/14/24 Subjective Subjective Interval history: 06/11/2024: Patient examined at bedside today. Telemetry reviewed and patient seems to be in 120s and 130s still in A-fib. Patient reports that she still experiencing some pain in her abdomen. Patient is likely going in higher heart rate because of uncontrolled pain, drainage to be done tomorrow. Patient's white count is 29 today, was started on Zosyn and Vanco. Patient's BUN/creatinine 53 and 5.6 respectively, will do dialysis tomorrow, dialysis yesterday at 1.5 L removed. Will continue to to try to control patient's pain and patient will need drainage with a goal of procedure to be tomorrow. Will add metoprolol as needed if patient's heart rate goes to the 150s. 06/12/2024: Pt examined at bedside today. Telemetry reviewed and pt appears to still be in fib, rate controlled in 120s. Pt reports she is still experiencing some abdominal pain, however it has been relatively controlled. I adjusted her positioning in her bed. She is agreeable with continuing abscess drainage. Her WBC count is going down, 23 today. BUN/Cr 74 and 7.0 respectively, potassium 5.1, Mg 2.4, dialysis should be done today, will touch base with nephrology team. Will continue current medicines with Amio, metoprolol, hep drip to be stopped before procedure. 06/13/2024: Patient examined bedside today. Telemetry reviewed and patient still appears to be in A-fib, rate in the 90s to 100. Patient says she is doing okay today, she is not experiencing any abdominal pain at this time. Hemoglobin around 8 today, BUN/creatinine of 84 and 7.5 respectively. Will continue with Amio and metoprolol 50 XL. Blood pressure little soft today 94/74. Patient still on heparin drip, will transition to Eliquis at some point. 06/14/2024: Patient examined at bedside. Telemetry reviewed and patient still appears to be in A-fib, rate controlled in the 90s to 100s. Patient says she is doing better, improved pain. She is aware that she is going to get dialysis today. Potassium of 6 today hemoglobin around 8, BUN and creatinine of 90 and 8.3 respectively. Patient got dialysis had 1.9 L removed and is improving. Will continue with current management of metoprolol and Amio. Exam Vital Signs Temp Pulse Resp BP Pulse Ox O2 Del Method O2 Flow Rate 97.8 F 131 H 21 H 125/67 98 Nasal Cannula 1 06/14/24 12:54 06/14/24 12:54 06/14/24 12:54 06/14/24 12:54 06/14/24 12:54 06/14/24 08:00 06/14/24 12:54 FiO2 4 06/14/24 12:54 Narrative Exam General: AAOx3, obese female, patient appears to be comfortable sitting up right HEENT: Moist mucous membranes, conjunctiva clear, EOMI, PERRLA, Cardiovascular: S1, S2, radial pulses +2 bilat, irregularly irregular rhythm, tachycardic Pulmonary: Wheezing heard in lungs bilat, congestion and cough GI: Bandages present, no ascites, mildly distended, tenderness upon palpitation in L quadrant Extremities: SCDs present, pitting edema in LE +1 bilat Neuro: AAOx3, no focal motor or sensory deficits in the UE or LE bilat Psych: Cooperative. Objective Labs 06/14/24 05:48 06/14/24 05:48 Labs: Laboratory Results - last 24 hr 06/13/24 06/14/24 17:52 05:48 WBC 19.8 H RBC 2.95 L Hgb 7.7 L Hct 23.9 L MCV 81 MCH 26.1 MCHC 32.2 RDW Std Deviation 55.8 H Plt Count 360 D Neut % (Auto) 65 Lymph % (Auto) 20 Mcintosh % (Auto) 8 Eos % (Auto) 4 Baso % (Auto) 1 Neut # (Auto) 12.9 H Lymph # (Auto) 3.9 Mcintosh # (Auto) 1.6 H Eos # (Auto) 0.8 H Baso # (Auto) 0.2 Immature Gran # (Auto) 0.36 H Absolute Nucleated RBC 0.27 H Immature Gran % 2 H Nucleated RBC % 1 H PT 15.2 H INR 1.4 H APTT 77.0 H D 43.0 H D Sodium 133 L Potassium 6.0 H D Chloride 94 L Carbon Dioxide 18.5 L Anion Gap 21 H BUN 98 H Creatinine 8.3 H* D Estim Creat Clear Calc 5.5 L eGFR 5 L* BUN/Creatinine Ratio 12 Glucose 84 Calculated Osmolality 295 Calcium 9.5 Corrected Calcium 9.8 Phosphorus 9.8 H Magnesium 2.7 H Total Bilirubin 0.6 AST 16 ALT < 7 L Alkaline Phosphatase 109 Total Protein 7.5 Albumin 3.6 Globulin 3.9 H Albumin/Globulin Ratio 0.9 L Random Vancomycin 27.7 ABG Interpretation ABG results: 05/13/24 05/15/24 05/15/24 08:29 15:28 16:03 ABG pH 7.39 7.05 L* D 7.17 L* D ABG pCO2 31 L 63 H D 45 D ABG pO2 78 L 38 L* D 84 D ABG HCO3 19 L 18 L 16 L ABG O2 Saturation 96 59 L 96 ABG Base Excess -5 L -12 L -11 L VBG pH VBG pCO2 VBG pO2 VBG Base Excess 05/16/24 05/17/24 05/18/24 04:38 04:03 04:20 ABG pH 7.28 L D 7.38 D 7.49 H D ABG pCO2 34 D 28 L 30 L ABG pO2 96 85 66 L ABG HCO3 16 L 17 L 23 ABG O2 Saturation 98 97 94 ABG Base Excess -10 L -8 L 0 VBG pH VBG pCO2 VBG pO2 VBG Base Excess 05/19/24 05/20/24 05/21/24 09:05 06:05 22:35 ABG pH 7.30 L D 7.41 D ABG pCO2 49 H D 42 ABG pO2 63 L 63 L ABG HCO3 24 27 H ABG O2 Saturation 91 93 ABG Base Excess -3 2 VBG pH 7.31 L VBG pCO2 50 VBG pO2 39 VBG Base Excess -2 05/26/24 05/29/24 04:17 12:28 ABG pH 7.38 7.42 ABG pCO2 42 35 ABG pO2 81 L 67 L ABG HCO3 25 23 ABG O2 Saturation 97 95 ABG Base Excess 0 -2 VBG pH VBG pCO2 VBG pO2 VBG Base Excess Quality Measures Quality Measures none Advance care planning discussed with:: patient Assessment & Plan Assessment Current Active Medications: Generic Name Dose Route Start Last Admin Trade Name Freq PRN Reason Stop Dose Admin Acetaminophen 650 mg 06/09/24 14:11 06/12/24 17:42 Acetaminophen 325 Mg Tablet PO 07/09/24 14:10 650 mg Q6HR PRN Administration Fever >101 and pain 1-3 Hydrocodone Bitart/Acetaminophen 1 tab 06/09/24 14:11 06/11/24 16:32 Hydrocodone/Apap 5/325 Tablet PO 06/14/24 14:10 1 tab Q4HR PRN Administration PAIN SCALE 4-10(Mod-Sev Albuterol/Ipratropium 3 ml 05/27/24 18:08 06/14/24 01:18 Albuterol/Ipratropium (Duoneb) Rt Jimena 3 Ml Nebu INH 06/26/24 18:07 3 ml Q2HR PRN Administration SHORTNESS OF BREATH OR WHEEZE Amiodarone HCl 200 mg 05/29/24 15:00 06/14/24 08:07 Amiodarone Hcl 200 Mg Tablet PO 06/28/24 14:59 200 mg BID ANGELICA Administration Apixaban 5 mg 06/13/24 21:00 06/14/24 09:45 Apixaban 2.5 Mg Tablet PO 07/13/24 20:59 Not Given BID ANGELICA Benzocaine 1 lozenge 05/31/24 11:53 06/09/24 23:07 Benzocaine/Menthol 1 Lozenge PO 06/30/24 11:52 1 lozenge Q4HR PRN Administration Sore throat Dextrose 25 ml 05/24/24 15:43 Dextrose 50%-Water Inj 50 Ml Syringe IV 06/23/24 15:42 Q15MIN PRN BG 50-70 responsive npo pt Dextrose 50 ml 05/24/24 15:43 Dextrose 50%-Water Inj 50 Ml Syringe IV 06/23/24 15:42 Q15MIN PRN BG <50 OR BG <70 & pt unresponsive Dronabinol 5 mg 06/07/24 10:40 06/14/24 07:41 Dronabinol 2.5 Mg Capsule PO 07/07/24 10:39 5 mg BIDAC ANGELICA Administration Epoetin Chang 10,000 unit 06/14/24 14:00 06/14/24 10:19 Epoetin Chang-Epbx Inj 40,000 Unit/Ml Vial (Esrd) SC 06/14/24 14:01 10,000 unit X1 ONE Administration Furosemide 40 mg 06/09/24 10:15 06/14/24 09:45 Furosemide Inj 10 Mg/Ml 4ml Vial IVP 07/09/24 10:14 Not Given QDAY ANGELICA Glucagon 1 mg 05/24/24 15:43 Glucagon Inj 1 Mg Vial IM Q15MIN PRN BG <70, and no IV access Guaifenesin 200 mg 06/10/24 08:30 06/14/24 05:54 Guaifenesin Syrup 200 Mg/10 Ml Udc PO 07/10/24 08:29 200 mg QID ANGELICA Administration Protocol Heparin Sodium (Porcine) 3,500 unit 06/07/24 18:06 06/14/24 12:37 Heparin Sod Inj 1000 Unit/Ml Vial 10 Ml INDWELLCAT 06/21/24 18:05 3,500 unit PRN PRN Administration DIALYSIS Piperacillin/Tazobactam/Dextrose 2.25 gm in 50 mls @ 100 mls/hr 06/10/24 12:10 06/14/24 05:54 Zosyn IV 06/17/24 12:09 100 mls/hr Q8HR ANGELICA Administration Micafungin Sodium 100 mg/ 100 mls @ 100 mls/hr 06/10/24 13:56 06/14/24 13:22 Sodium Chloride IV 06/25/24 13:55 100 mls/hr QDAY ANGELICA Administration Albumin Human 25 gm in 100 mls @ 100 mls/hr 06/12/24 16:40 06/14/24 10:19 Albuminar-25 Ivpb IV 100 mls/hr PRN PRN Administration DIALYSIS Insulin Glargine 12 unit 05/25/24 09:00 06/14/24 09:45 Insulin Glargine (Lantus) 5 Unit/0.05 Ml (Per 5 Units) SC 06/24/24 08:59 Not Given QDAY [facility] Insulin Human Lispro 0 unit 05/24/24 18:00 06/14/24 05:54 Insulin Lispro (Admelog) 1 Unit/0.01 Ml Unit SC 06/23/24 17:59 Not Given Q6HR [facility] Protocol Lidocaine 1 patch 05/30/24 09:16 06/01/24 19:01 Lidocaine 5% 1 Patch TOP 06/29/24 09:15 1 patch DAILY PRN Administration BACK PAIN Metoprolol Succinate 50 mg 06/12/24 15:36 06/14/24 09:45 Metoprolol Succinate Xl 25 Mg Tabcr PO 07/09/24 21:04 Not Given QDAY ANGELICA Metoprolol Tartrate 50 mg 06/14/24 08:37 Metoprolol Tartrate 25 Mg Tablet PO 07/12/24 08:59 QDAY PRN Tachycardia above 150 Midodrine 5 mg 06/12/24 22:00 06/14/24 05:56 Midodrine 5 Mg Tablet PO 07/12/24 21:59 Not Given TID ANGLEICA Mirtazapine 15 mg 06/13/24 21:00 06/13/24 21:10 Mirtazapine 15 Mg Tablet PO 07/13/24 20:59 15 mg HS ANGELICA Administration Pantoprazole Sodium 40 mg 05/15/24 21:00 06/13/24 21:10 Pantoprazole Inj 40 Mg Vial IVP 06/14/24 20:59 40 mg BID ANGELICA Administration Pharmacy Consult 1 each 05/16/24 10:27 Pharmacy Renal Dose Adjustment 1 Ea XX 06/15/24 10:26 PRN PRN CONSULT Pharmacy Consult 1 each 06/10/24 12:15 Vancomycin Pharmacy To Dose 1 Each Each IV 07/10/24 12:14 QDAY PRN CONSULT Polyethylene Glycol 17 gm 06/12/24 15:36 Polyethylene Glycol 17 Gm Packet PO 07/09/24 10:44 BID PRN constipation Protocol Sennosides 1 tab 06/09/24 10:45 06/13/24 08:11 Senna Tablet PO 07/09/24 10:44 1 tab QDAY ANGELICA Administration Protocol Sodium Chloride 3 ml 05/24/24 19:00 Sodium Chloride Rt Jimena 0.9% 3 Ml Nebu INH 06/23/24 18:59 PRN PRN SOLN Timolol Maleate 1 drop 05/28/24 18:15 06/13/24 08:11 Timolol Op Jimena 0.5% 5 Ml Btl BOTH EYES 06/27/24 18:14 1 drop DAILY ANGELICA Administration Plan Assessment Ms. Castellanos is a 69-year-old female with past medical history significant for hypertension, diabetes and history of gastric ulcers who presented to the ED on 05/13/2024 after she was found unconscious on the floor. Per chart reviewing prior to this unconsciousness patient was having abdominal pain and generalized weakness with diarrhea and shortness of breath for 2 days. Patient was admitted to the hospital for treatment and management of sepsis secondary to pneumonia. Patient was given 1 L normal saline and started on ceftriaxone and azithromycin. patient underwent ex lap surgery for perforated gastric ulcer. Patient remained intubated postop and was upgraded to the ICU. Patient continues to be on dialysis after downgrade, has BALAJI and accordion drain intact, completed bowel rest, was started on dysphagia 1 diet, surgery following case closely, will continue to monitor. #New onset A-fib with RVR, improving New onset of Afib, likely related to septic shock requiring pressor support and increased demand from perforated ulcer complicated by abdominal abscesses Pt appears to still be in A-fib, rate controlled, 90s to mid 100s Previous EKG shows a-fib w/RVR CHADVASC: 5 Pts 7.2 % stroke risk per year HAS-BLED score: 3, high risk of major bleeding Plan: ?Continue with Oral Amio 200 mg BID ?Continue with metoprolol XL 50 ?Adding metoprolol XL 50 as needed for heart rate above 150 and if BP is permissible. ?Continue with heparin drip, will transition to Eliquis at some point. #Acute exacerbation of HFpEF #HFpEF EF 55 to 60% #History of primary hypertension -Echo 05/16/2024 -estimated EF of 55 to 60%, stage I diastolic dysfunction noted, Moderate to severe posterior MAC Pt has new onset of ESRD requiring HD, requiring midodrine 10 mg QID to tolerate HD Not resuming home amlodipine at this time due to patient being A-fib and blood pressure eventually be controlled with beta-christian We recommend to give midodrine 5 to 10 mg 15 to 30 minutes before dialysis, can give additional 2.5 to 5 mg after dialysis as long as 3 hours after predialysis dose Half-life of midodrine is 9 to 10 hours and patient with CKD something to keep in mind Plan: ?Resume GDMT as able, metoprolol on board right now, as above ?Fluid restriction ?Daily weights ?Strict ins and outs ?Keep potassium and magnesium above 4 and 2 respectively #Hx of Diabetes Mellitus type II Most recent A1c 05/21/2024: 6.2 Plan: Management by primary team #Perforated gastric ulcer #Pneumoperitoneum #Peritonitis secondary to perforated gastric ulcer #Abdominal Abscess, s/p percutaneous drainage x3 Patient found to have tender abdomen, rigidity in the epigastrium, chest x-ray showed elevation of hemidiaphragm, CT abdomen showed pneumoperitoneum, concern for perforated viscus, general surgeon Dr. Santana was consulted for emergency laparotomy and possible repair of perforated gastric ulcer. Repeat CT abd/pel on 05/20 revealed Pneumoperitoneum, orogastric tube in the stomach, mild free fluid adjacent to the stomach and anterior to the pancreas. s/p Exploratory laparotomy & repair of perforated gastric ulcer - 05/15. 06/01/24: Overnight there was concern of wound dehiscence. Discussed with general surgeon per surgery superior aspect of the wound was dehiscent after removal of aixa.Surgery removal of BALAJI drain on 06/01. Repeat CT on 06/01- More pronounced fluid collection in the left abdomen below the spleen, 8.9 x 6.4cm, free fluid in the abdomen and pelvis, and Ascites -Abscess culture from 05/25 grew edna albicans ?Repeat CT abdomen pelvis shows abscess collection lower left abdomen has markedly decreased in size and the accordion drains have no output this morning Plan: Management by primary hospitalist team #Acute blood loss anemia, stable Likely related to perforated ulcer Hgb stable ~7.7 Plan: Management by primary hospitalist team #Acute tubular necrosis, requiring hemodialysis #Acute Hypoxic Respiratory failure #Acute Upper GI bleed - stable #Hyperlipidemia #Acute blood loss anemia, stable #Acute encephalopathy-resolved #Septic Shock - resolved #Hypoosmolar Hyponatremia, resolved Above managed by primary hospitalist team Patient seen and care discussed with my attending physician, Dr. Susan Mathews, PGY-1 Attending Provider Attestation/Addendum I reviewed the resident Dr. Hernandes consultation progress note and agree with the resident findings and plan in the note above and have also edited the documentation to reflect my findings and plan. Jalen Davis M.D. Interventional Cardiology
--- NOTE | 2024-06-14 13:53 | ESPR_ITS ---
Documentation for date of: 06/14/24 Senior resident attestation: Patient evaluated and examined at the bedside, plan of care discussed with rest of the team including my attending physician, except as noted. Protected hospital course complicated by gastric perforation status post emergent laparotomy and repair, ICU stay as well as multiple postop abscesses and pneumonia. Also developed ADILSON/ATN requiring hemodialysis, patient has made less than optimal recovery postop, continues to develop multiple abdominal abscesses, repeat cultures grew Edna, was started on fluconazole, currently completing more than 2 weeks of fluconazole but had repeat abdominal pelvic abscesses on abdominal imaging. IR CT-guided abscess drainage was ordered, pelvic abscess was not amenable to drainage, smaller abscess was drained, sent for microbiology. Noted uptrending WBC count and increased patient discomfort as well as somnolence, started on broad-spectrum antibiotics for aspiration versus hospital-acquired pneumonia IV Zosyn and vancomycin as well as micafungin for candidal abscess not respond to fluconazole. Will get infectious disease specialist Dr Horn on board, regarding continuing micafungin versus optimal duration of therapy for fluconazole. Patient received emergency hemodialysis today due to hyperkalemia and volume overload, will continue with antibiotics and micafungin pending abscess culture. And ID recommendations. #Sepsis?secondary to?Peritonitis secondary to perforated gastric ulcer s/p repair #Postop intra-abdominal abscess s/p drainage, likely fungal #Pneumonia #A-fib RVR #NSTEMI type 2 #ATN, likely progressed to ESRD #Acute toxic encephalopathy?in the setting of sepsis?improving #Nutrition #History of diabetes mellitus #History of gastric ulcer #Acute blood loss anemia secondary to GI bleed Quresh pgy 2 Subjective Subjective Interval history: 06/14: No acute overnight events patient seen and examined at bedside this morning. Patient is saturating at 98% on 2 L of oxygen. Patient is heavily breathing and and moaning in discomfort but denies abdominal pain. Patient has scheduled hemodialysis today as she appears to be in fluid overload with loose Julia Dustin crackles breath sounds. Patient is no longer on heparin drip and is switched to Eliquis twice daily for anticoagulation, patient is on amiodarone and metoprolol for a-fib. Patient has completed more than 20 days of fluconazole for abdominal abscess containing Edna and patient is switched to micafungin. Leukocytosis is downtrending patient is on Zosyn. Patient has no other complaints. Exam Vital Signs Temp Pulse Resp BP Pulse Ox O2 Del Method O2 Flow Rate 97.8 F 131 H 21 H 125/67 98 Nasal Cannula 1 06/14/24 12:54 06/14/24 12:54 06/14/24 12:54 06/14/24 12:54 06/14/24 12:54 06/14/24 08:00 06/14/24 12:54 FiO2 4 06/14/24 12:54 Narrative Exam GENERAL: A&Ox3 . Awake and alert, heavily breathing and moaning in discomfort NEURO: no focal neurological deficits HEENT: Atraumatic, Normocephalic. mucous membranes moist. Eyes open, symmetrical, & clear HEART: Normal Heart Sounds LUNGS: faint wheezing bilaterally and crackles on auscultation ABDOMEN: soft, non-distended, non-tender, bowel sounds heard, no guarding or rebound tenderness, incision site is clean. SKIN: No Rash or ecchymoses EXTREMITIES: 2+ pitting edema bilaterally on LE, tenderness, able to move all 4 extremities, pedal pulses palpated Objective Labs 06/15/24 06:18 06/15/24 06:18 Labs: Laboratory Results - last 24 hr 06/13/24 06/14/24 17:52 05:48 WBC 19.8 H RBC 2.95 L Hgb 7.7 L Hct 23.9 L MCV 81 MCH 26.1 MCHC 32.2 RDW Std Deviation 55.8 H Plt Count 360 D Neut % (Auto) 65 Lymph % (Auto) 20 [place] % (Auto) 8 Eos % (Auto) 4 Baso % (Auto) 1 Neut # (Auto) 12.9 H Lymph # (Auto) 3.9 [place] # (Auto) 1.6 H Eos # (Auto) 0.8 H Baso # (Auto) 0.2 Immature Gran # (Auto) 0.36 H Absolute Nucleated RBC 0.27 H Immature Gran % 2 H Nucleated RBC % 1 H PT 15.2 H INR 1.4 H APTT 77.0 H D 43.0 H D Sodium 133 L Potassium 6.0 H D Chloride 94 L Carbon Dioxide 18.5 L Anion Gap 21 H BUN 98 H Creatinine 8.3 H* D Estim Creat Clear Calc 5.5 L eGFR 5 L* BUN/Creatinine Ratio 12 Glucose 84 Calculated Osmolality 295 Calcium 9.5 Corrected Calcium 9.8 Phosphorus 9.8 H Magnesium 2.7 H Total Bilirubin 0.6 AST 16 ALT < 7 L Alkaline Phosphatase 109 Total Protein 7.5 Albumin 3.6 Globulin 3.9 H Albumin/Globulin Ratio 0.9 L Random Vancomycin 27.7 ABG Interpretation ABG results: 05/13/24 05/15/24 05/15/24 08:29 15:28 16:03 ABG pH 7.39 7.05 L* D 7.17 L* D ABG pCO2 31 L 63 H D 45 D ABG pO2 78 L 38 L* D 84 D ABG HCO3 19 L 18 L 16 L ABG O2 Saturation 96 59 L 96 ABG Base Excess -5 L -12 L -11 L VBG pH VBG pCO2 VBG pO2 VBG Base Excess 05/16/24 05/17/24 05/18/24 04:38 04:03 04:20 ABG pH 7.28 L D 7.38 D 7.49 H D ABG pCO2 34 D 28 L 30 L ABG pO2 96 85 66 L ABG HCO3 16 L 17 L 23 ABG O2 Saturation 98 97 94 ABG Base Excess -10 L -8 L 0 VBG pH VBG pCO2 VBG pO2 VBG Base Excess 05/19/24 05/20/24 05/21/24 09:05 06:05 22:35 ABG pH 7.30 L D 7.41 D ABG pCO2 49 H D 42 ABG pO2 63 L 63 L ABG HCO3 24 27 H ABG O2 Saturation 91 93 ABG Base Excess -3 2 VBG pH 7.31 L VBG pCO2 50 VBG pO2 39 VBG Base Excess -2 05/26/24 05/29/24 04:17 12:28 ABG pH 7.38 7.42 ABG pCO2 42 35 ABG pO2 81 L 67 L ABG HCO3 25 23 ABG O2 Saturation 97 95 ABG Base Excess 0 -2 VBG pH VBG pCO2 VBG pO2 VBG Base Excess Quality Measures Quality Measures none Advance care planning discussed with:: patient and child Assessment & Plan Assessment Current Active Medications: Generic Name Dose Route Start Last Admin Trade Name Freq PRN Reason Stop Dose Admin Acetaminophen 650 mg 06/09/24 14:11 06/12/24 17:42 Acetaminophen 325 Mg Tablet PO 07/09/24 14:10 650 mg Q6HR PRN Administration Fever >101 and pain 1-3 Hydrocodone Bitart/Acetaminophen 1 tab 06/09/24 14:11 06/11/24 16:32 Hydrocodone/Apap 5/325 Tablet PO 06/14/24 14:10 1 tab Q4HR PRN Administration PAIN SCALE 4-10(Mod-Sev Albuterol/Ipratropium 3 ml 05/27/24 18:08 06/14/24 01:18 Albuterol/Ipratropium (Duoneb) Rt Jimena 3 Ml Nebu INH 06/26/24 18:07 3 ml Q2HR PRN Administration SHORTNESS OF BREATH OR WHEEZE Amiodarone HCl 200 mg 05/29/24 15:00 06/14/24 08:07 Amiodarone Hcl 200 Mg Tablet PO 06/28/24 14:59 200 mg BID ANGELICA Administration Apixaban 5 mg 06/13/24 21:00 06/14/24 09:45 Apixaban 2.5 Mg Tablet PO 07/13/24 20:59 Not Given BID ANGELICA Benzocaine 1 lozenge 05/31/24 11:53 06/09/24 23:07 Benzocaine/Menthol 1 Lozenge PO 06/30/24 11:52 1 lozenge Q4HR PRN Administration Sore throat Dextrose 25 ml 05/24/24 15:43 Dextrose 50%-Water Inj 50 Ml Syringe IV 06/23/24 15:42 Q15MIN PRN BG 50-70 responsive npo pt Dextrose 50 ml 05/24/24 15:43 Dextrose 50%-Water Inj 50 Ml Syringe IV 06/23/24 15:42 Q15MIN PRN BG <50 OR BG <70 & pt unresponsive Dronabinol 5 mg 06/07/24 10:40 06/14/24 07:41 Dronabinol 2.5 Mg Capsule PO 07/07/24 10:39 5 mg BIDAC ANGELICA Administration Epoetin Chang 10,000 unit 06/14/24 14:00 06/14/24 10:19 Epoetin Chang-Epbx Inj 40,000 Unit/Ml Vial (Esrd) SC 06/14/24 14:01 10,000 unit X1 ONE Administration Furosemide 40 mg 06/09/24 10:15 06/14/24 09:45 Furosemide Inj 10 Mg/Ml 4ml Vial IVP 07/09/24 10:14 Not Given QDAY ANGELICA Glucagon 1 mg 05/24/24 15:43 Glucagon Inj 1 Mg Vial IM Q15MIN PRN BG <70, and no IV access Guaifenesin 200 mg 06/10/24 08:30 06/14/24 05:54 Guaifenesin Syrup 200 Mg/10 Ml Udc PO 07/10/24 08:29 200 mg QID ANGELICA Administration Protocol Heparin Sodium (Porcine) 3,500 unit 06/07/24 18:06 06/14/24 12:37 Heparin Sod Inj 1000 Unit/Ml Vial 10 Ml INDWELLCAT 06/21/24 18:05 3,500 unit PRN PRN Administration DIALYSIS Piperacillin/Tazobactam/Dextrose 2.25 gm in 50 mls @ 100 mls/hr 06/10/24 12:10 06/14/24 05:54 Zosyn IV 06/17/24 12:09 100 mls/hr Q8HR ANGELICA Administration Micafungin Sodium 100 mg/ 100 mls @ 100 mls/hr 06/10/24 13:56 06/14/24 13:22 Sodium Chloride IV 06/25/24 13:55 100 mls/hr QDAY ANGELICA Administration Albumin Human 25 gm in 100 mls @ 100 mls/hr 06/12/24 16:40 06/14/24 10:19 Albuminar-25 Ivpb IV 100 mls/hr PRN PRN Administration DIALYSIS Insulin Glargine 12 unit 05/25/24 09:00 06/14/24 09:45 Insulin Glargine (Lantus) 5 Unit/0.05 Ml (Per 5 Units) SC 06/24/24 08:59 Not Given QDAY ANGELICA Insulin Human Lispro 0 unit 05/24/24 18:00 06/14/24 05:54 Insulin Lispro (Admelog) 1 Unit/0.01 Ml Unit SC 06/23/24 17:59 Not Given Q6HR [facility] Protocol Lidocaine 1 patch 05/30/24 09:16 06/01/24 19:01 Lidocaine 5% 1 Patch TOP 06/29/24 09:15 1 patch DAILY PRN Administration BACK PAIN Metoprolol Succinate 50 mg 06/12/24 15:36 06/14/24 09:45 Metoprolol Succinate Xl 25 Mg Tabcr PO 07/09/24 21:04 Not Given QDAY ANGELICA Metoprolol Tartrate 50 mg 06/14/24 08:37 Metoprolol Tartrate 25 Mg Tablet PO 07/12/24 08:59 QDAY PRN Tachycardia above 150 Midodrine 5 mg 06/12/24 22:00 06/14/24 05:56 Midodrine 5 Mg Tablet PO 07/12/24 21:59 Not Given TID ANGELICA Mirtazapine 15 mg 06/13/24 21:00 06/13/24 21:10 Mirtazapine 15 Mg Tablet PO 07/13/24 20:59 15 mg HS ANGELICA Administration Pantoprazole Sodium 40 mg 05/15/24 21:00 06/13/24 21:10 Pantoprazole Inj 40 Mg Vial IVP 06/14/24 20:59 40 mg BID ANGELICA Administration Pharmacy Consult 1 each 05/16/24 10:27 Pharmacy Renal Dose Adjustment 1 Ea XX 06/15/24 10:26 PRN PRN CONSULT Pharmacy Consult 1 each 06/10/24 12:15 Vancomycin Pharmacy To Dose 1 Each Each IV 07/10/24 12:14 QDAY PRN CONSULT Polyethylene Glycol 17 gm 06/12/24 15:36 Polyethylene Glycol 17 Gm Packet PO 07/09/24 10:44 BID PRN constipation Protocol Sennosides 1 tab 06/09/24 10:45 06/13/24 08:11 Senna Tablet PO 07/09/24 10:44 1 tab QDAY ANGELICA Administration Protocol Sodium Chloride 3 ml 05/24/24 19:00 Sodium Chloride Rt Jimena 0.9% 3 Ml Nebu INH 06/23/24 18:59 PRN PRN SOLN Timolol Maleate 1 drop 05/28/24 18:15 06/13/24 08:11 Timolol Op Jimena 0.5% 5 Ml Btl BOTH EYES 06/27/24 18:14 1 drop DAILY ANGELICA Administration Plan Ms. Castellanos is a 69-year-old female with past medical history significant for hypertension, diabetes and history of gastric ulcers who presented to the ED on 05/13/2024 after she was found unconscious on the floor. Per chart reviewing prior to this unconsciousness patient was having abdominal pain and generalized weakness with diarrhea and shortness of breath for 2 days. Patient was admitted to the hospital for treatment and management of sepsis secondary to pneumonia. Patient was given 1 L normal saline and started on ceftriaxone and azithromycin. patient underwent ex lap surgery for perforated gastric ulcer. Patient remained intubated postop and was upgraded to the ICU. Patient continues to be on dialysis after downgrade, has BALAJI and accordion drain intact, completed bowel rest, was started on dysphagia 1 diet, surgery following case closely, will continue to monitor. #Perforated gastric ulcer #Hx of gastric ulcers #Pneumoperitoneum #Peritonitis secondary to perforated gastric ulcer - s/p ex lap #Abdominal Abscess, s/p percutaneous drainage x2- removed #Abdominal and pelvic abscesses #Leukocytosis-improving Patient found to have tender abdomen, rigidity in the epigastrium, chest x-ray showed elevation of hemidiaphragm, CT abdomen showed pneumoperitoneum, concern for perforated viscus, general surgeon Dr. Santana was consulted for emergency laparotomy and possible repair of perforated gastric ulcer. Repeat CT abd/pel on 05/20 revealed Pneumoperitoneum, orogastric tube in the stomach, mild free fluid adjacent to the stomach and anterior to the pancreas. s/p Exploratory laparotomy & repair of perforated gastric ulcer - 05/15. 06/01/24: Overnight there was concern of wound dehiscence. Discussed with general surgeon per surgery superior aspect of the wound was dehiscent after removal of aixa.Surgery removal of BALAJI drain on 06/01. Repeat CT on 06/01- More pronounced fluid collection in the left abdomen below the spleen, 8.9 x 6.4cm, free fluid in the abdomen and pelvis, and Ascites -Repeat CT A/P 06/05: abscess collection in the left lower abdomen has markedly decreased in size. the accordions drains have no output this morning. Repeat CT on 06/10 shows multiple abdominal and pelvic abscesses and pneumonia left base Plan: ?Patient completed antibiotic therapy, Meropenem, discontinued per ID Recommendations -percutaneous abscess drain catheter placed 06/02 ?disontinue with TPN 06/05 . Patient's diet is advanced to dysphagia 1 and have encouraged family members to bring home-cooked meals that patient would eat ?Continue dronabinol and mirtazapine as appetite stimulator -accordian drains removed on 06/05 -Patient is status post abdominal abscess drained on 06/12/2024 and the pelvic abscess is too small to be drained -Abscess culture from 05/25 and 06/02 grew edna albicans -[place] PRN for pain ordered -Patient completed 20 days of fluconazole and is now switched to micafungin started on 06/10- #New onset A-fib with RVR #NSTEMI type 2 -Likely secondary to shock in the setting of abdominal surgery -EKG findings consistent with A-fib -Was on Amiodarone 200 twice daily for new onset Afib, but as she was in AFib with RVR. Plan: ?Cardiology consulted, appreciate recs -Currently on oral amiodarone 200mg and metoprolol ? Resumed eliquis 5mg BID for anticoagulation #Protein calorie malnutrition ?Patient noted to have poor appetite, is finishing less than 50% of her meals, was initially on TPN which is discontinued. -Added dronabinol and mirtazapine as appetite stimulator #Acute tubular necrosis likely progressed to ESRD #Anuria -2/2 septic shock -Patient had small amount of urine production on 06/08 however this morning no urine yet -Baseline Cr appears to be 0.7 Plan: ?Patient underwent HD fluid removal and removed 2.1 L on 05/18 and 1.5 L on 05/19, 2L fluid removed 05/21, 2.5 L fluid removed on 05/22 , 3L fluid removed on 05/23, 3L fluid removed 05/25, 2L removed 05/26, 1 L removed 05/29, 1.5 L removed 05/30, 06/01 2L fluid removed. -permanent hemodialysis cath placed on 06/02/24 -Patient will require outpatient hemodialysis, dialysis chair secured by case management - Hemodialysis as per schedule. -Started on midodrine 10 mg BID as patient has difficulty tolerating dialysis, blood pressure drops. -Renally dose medications and avoid nephrotoxic agents -repeat labs in am -lasix 40mg daily -Nephrology following #Acute exacerbation of HFpEF # HFpEF EF 55 to 60% -echo 05/16 -estimated EF of 55 to 60%, stage I diastolic dysfunction noted, Moderate to severe posterior MAC -Pt presented with SOB and 2+ edema in LE -elevated BNP from 304 --> 1110 -HD in the setting of anuria -holding guideline directed medical therapy due to shock, will resume when able -Continue dialysis, as per nephrology recommendations #Acute Hypoxic Respiratory failure #fluid overload in the setting of ATN likely multifactorial -2/2 to pulmonary edema in the setting of volume overload 2/2 ATN due to shock leading to oligoanuria versus bibasilar pneumonia -Further complicated by bilateral lung atelectasis in the setting of recent abdominal surgery and sedatives use -Patient was intubated and on mechanical ventilation (05/15) and extubated 05/18/2024, currently saturating 95-97 % on 5 L NC -Duonebs prn -chest physiotherapy ordered -mucolytics ordered #Acute Upper GI bleed - stable -Most likely secondary to perforated gastric ulcer -Patient had a single episode of black tarry stool today-likely setting of recent abdominal surgery -Continue iv Protonix. -Will monitor for alarm signs of active bleeding with melena or hematochezia #Hx of Diabetes Mellitus type II - A1C 6.3 % 05/21/2024 - Hold home glipizide and januvia - Plan: Continue to monitor blood sugars - Insulin sliding scale ordered with lantus 12 units #Hyperlipidemia -Unclear if patient takes any medications as a statin is not on list of home meds #Primary Hypertension Holding on resuming home blood pressure medicines at this time #Acute blood loss anemia, stable 2/2 perforated ulcer- S/P surgical repair Hgb stable 9.6 Hct 28.3 patient received 2 units of pRBC 05/18 due to acutely drop in Hgb below 7. No signs of active bleeding. Plan: -Continue to monitor daily CBC. transfuse for hemoglobin less than 7. # Acute encephalopathy-resolved -Likely multifactorial secondary to sepsis versus metabolic versus neurologic versus medication -Patient is awake and alert and follows commands. Patient is able to respond to yes or no questions verbally #Shock - resolved #Hypoosmolar Hyponatremia, resolved Disposition: Telemetry DVT prophylaxis: Eliquis 5 mg twice daily anticoagulation for A-fib GI prophylaxis:Protonix 40 BID Diet: Dysphagia 1 diet CODE STATUS: Full Assessment and plan discussed with my senior resident physician Dr. Quiñonez and my Attending physician Dr. Anusha Rivera ([id number]-[id number])- Internal medicine resident Attending Provider Attestation/Addendum Janel Gaffney DO, attest that I was physically present for the donnelly portions of the service and evaluated the patient with the resident and I reviewed and discussed the case with the resident and agree with the resident's findings and plans of care as documented above Patient seen and eval this a.m. during dialysis. Patient appears to have a chronic cough and is very weak. Patient has no acute complaints at this time. She remains on micafungin for abscesses that are too small to drain. Will follow-up with ID recommendations. Patient appears to be at baseline mental status per nursing at bedside.
--- NOTE | 2024-06-14 15:49 | PD.IMPROG ---
Documentation for date of: 06/14/24 Subjective Subjective Interval history: Poor p.o. intake remains an issue On micafungin for intra-abdominal abscesses Exam Vital Signs Temp Pulse Resp BP Pulse Ox O2 Del Method O2 Flow Rate 97.8 F 128 H 18 132/82 H 100 Nasal Cannula 2 06/14/24 13:20 06/14/24 14:47 06/14/24 13:20 06/14/24 14:47 06/14/24 13:20 06/14/24 13:20 06/14/24 13:20 FiO2 4 06/14/24 12:54 Constitutional Comments: Chronically ill-appearing Routine Respiratory Exam Comments: Basal crepitations Routine Abdominal Exam Comments: Positive bowel sounds Objective Labs 06/14/24 05:48 06/14/24 05:48 Labs: Laboratory Results - last 24 hr 06/13/24 06/14/24 17:52 05:48 WBC 19.8 H RBC 2.95 L Hgb 7.7 L Hct 23.9 L MCV 81 MCH 26.1 MCHC 32.2 RDW Std Deviation 55.8 H Plt Count 360 D Neut % (Auto) 65 Lymph % (Auto) 20 [place] % (Auto) 8 Eos % (Auto) 4 Baso % (Auto) 1 Neut # (Auto) 12.9 H Lymph # (Auto) 3.9 [place] # (Auto) 1.6 H Eos # (Auto) 0.8 H Baso # (Auto) 0.2 Immature Gran # (Auto) 0.36 H Absolute Nucleated RBC 0.27 H Immature Gran % 2 H Nucleated RBC % 1 H PT 15.2 H INR 1.4 H APTT 77.0 H D 43.0 H D Sodium 133 L Potassium 6.0 H D Chloride 94 L Carbon Dioxide 18.5 L Anion Gap 21 H BUN 98 H Creatinine 8.3 H* D Estim Creat Clear Calc 5.5 L eGFR 5 L* BUN/Creatinine Ratio 12 Glucose 84 Calculated Osmolality 295 Calcium 9.5 Corrected Calcium 9.8 Phosphorus 9.8 H Magnesium 2.7 H Total Bilirubin 0.6 AST 16 ALT < 7 L Alkaline Phosphatase 109 Total Protein 7.5 Albumin 3.6 Globulin 3.9 H Albumin/Globulin Ratio 0.9 L Random Vancomycin 27.7 Impressions Impression: # Poor p.o. intake encourage p.o. intake spoke with the family # End-stage renal disease on hemodialysis # Status post exploratory laparotomy for perforated gastric ulcer # Intra-abdominal abscesses requiring IR drainage and on micafungin ABG Interpretation ABG results: 05/13/24 05/15/24 05/15/24 08:29 15:28 16:03 ABG pH 7.39 7.05 L* D 7.17 L* D ABG pCO2 31 L 63 H D 45 D ABG pO2 78 L 38 L* D 84 D ABG HCO3 19 L 18 L 16 L ABG O2 Saturation 96 59 L 96 ABG Base Excess -5 L -12 L -11 L VBG pH VBG pCO2 VBG pO2 VBG Base Excess 05/16/24 05/17/24 05/18/24 04:38 04:03 04:20 ABG pH 7.28 L D 7.38 D 7.49 H D ABG pCO2 34 D 28 L 30 L ABG pO2 96 85 66 L ABG HCO3 16 L 17 L 23 ABG O2 Saturation 98 97 94 ABG Base Excess -10 L -8 L 0 VBG pH VBG pCO2 VBG pO2 VBG Base Excess 05/19/24 05/20/24 05/21/24 09:05 06:05 22:35 ABG pH 7.30 L D 7.41 D ABG pCO2 49 H D 42 ABG pO2 63 L 63 L ABG HCO3 24 27 H ABG O2 Saturation 91 93 ABG Base Excess -3 2 VBG pH 7.31 L VBG pCO2 50 VBG pO2 39 VBG Base Excess -2 05/26/24 05/29/24 04:17 12:28 ABG pH 7.38 7.42 ABG pCO2 42 35 ABG pO2 81 L 67 L ABG HCO3 25 23 ABG O2 Saturation 97 95 ABG Base Excess 0 -2 VBG pH VBG pCO2 VBG pO2 VBG Base Excess Assessment & Plan A&P Narrative abd abscess, stain neg. later grew c albicans so on flucon now here since 05/13.usual rx for most things is 7d. left on merrem thru weekend but collection in abd eventually grew a yeast, so ok for another 7d rx will see again if requested Time Spent With Patient Time: Total time spent is greater than 50% in coordination of care (as documented) at patient's floor/unit and/or counseling patient:
[2024-06-14] MEDS: MIRTAZAPINE 15 MG TABLET PO (21:26)
[2024-06-14] MEDS: APIXABAN 2.5 MG TABLET 5 MG PO (21:26)
[2024-06-14] MEDS: MIDODRINE 5 MG TABLET PO (21:30)
--- NOTE | 2024-06-14 23:46 | ESPR_ITS ---
Documentation for date of: 06/14/24 Subjective Subjective Interval history: Patient was seen in telemetry today at the bedside, not much respiratory distress noted today as she had dialysis today. Exam - Neurology Vital Signs Temp Pulse Resp BP Pulse Ox O2 Del Method O2 Flow Rate 96.8 F 117 H 22 H 100/75 98 Nasal Cannula 1 06/14/24 20:00 06/14/24 21:30 06/14/24 20:00 06/14/24 21:30 06/14/24 20:00 06/14/24 20:00 06/14/24 20:00 FiO2 4 06/14/24 12:54 Narrative Exam GENERAL APPEARANCE: Well-developed, obese built female in mild distress HEENT: Normocephalic, atraumatic, extraocular movements intact. Pupils: Equal reacting to light NECK: Supple, no JVD or bruits. CARDIOVASULAR: Heart: S1, S2 heard, irregular without S3-S4 or murmur no rubs or gallops. LUNGS/CHEST: Bilateral Rales and rhonchi heard. ABDOMEN: Soft, nontender, with normal bowel sounds. No pulsatile masses. No rebound, rigidity, or guarding. Normal inspection and palpation. EXTREMITIES: Significant edema in both upper and lower extremities. SKIN: Warm and dry without rashes. Normal inspection. MUSCULOSKELETAL: No cervical, thoracic, lumbar or midline bony tenderness. Normal inspection. NEURO: Alert, awake, follows commands consistently. Brainstem function: Intact. Moves all 4 extremities but significantly weak all over, no signs of meningeal irritation noted. PSYCHIATRIC: Mood and affect: Normal Objective Labs 06/14/24 05:48 06/14/24 05:48 Labs: Laboratory Results - last 24 hr 06/14/24 05:48 WBC 19.8 H RBC 2.95 L Hgb 7.7 L Hct 23.9 L MCV 81 MCH 26.1 MCHC 32.2 RDW Std Deviation 55.8 H Plt Count 360 D Neut % (Auto) 65 Lymph % (Auto) 20 [place] % (Auto) 8 Eos % (Auto) 4 Baso % (Auto) 1 Neut # (Auto) 12.9 H Lymph # (Auto) 3.9 [place] # (Auto) 1.6 H Eos # (Auto) 0.8 H Baso # (Auto) 0.2 Immature Gran # (Auto) 0.36 H Absolute Nucleated RBC 0.27 H Immature Gran % 2 H Nucleated RBC % 1 H PT 15.2 H INR 1.4 H APTT 43.0 H D Sodium 133 L Potassium 6.0 H D Chloride 94 L Carbon Dioxide 18.5 L Anion Gap 21 H BUN 98 H Creatinine 8.3 H* D Estim Creat Clear Calc 5.5 L eGFR 5 L* BUN/Creatinine Ratio 12 Glucose 84 Calculated Osmolality 295 Calcium 9.5 Corrected Calcium 9.8 Phosphorus 9.8 H Magnesium 2.7 H Total Bilirubin 0.6 AST 16 ALT < 7 L Alkaline Phosphatase 109 Total Protein 7.5 Albumin 3.6 Globulin 3.9 H Albumin/Globulin Ratio 0.9 L Random Vancomycin 27.7 ABG Interpretation ABG results: 05/13/24 05/15/24 05/15/24 08:29 15:28 16:03 ABG pH 7.39 7.05 L* D 7.17 L* D ABG pCO2 31 L 63 H D 45 D ABG pO2 78 L 38 L* D 84 D ABG HCO3 19 L 18 L 16 L ABG O2 Saturation 96 59 L 96 ABG Base Excess -5 L -12 L -11 L VBG pH VBG pCO2 VBG pO2 VBG Base Excess 05/16/24 05/17/24 05/18/24 04:38 04:03 04:20 ABG pH 7.28 L D 7.38 D 7.49 H D ABG pCO2 34 D 28 L 30 L ABG pO2 96 85 66 L ABG HCO3 16 L 17 L 23 ABG O2 Saturation 98 97 94 ABG Base Excess -10 L -8 L 0 VBG pH VBG pCO2 VBG pO2 VBG Base Excess 05/19/24 05/20/24 05/21/24 09:05 06:05 22:35 ABG pH 7.30 L D 7.41 D ABG pCO2 49 H D 42 ABG pO2 63 L 63 L ABG HCO3 24 27 H ABG O2 Saturation 91 93 ABG Base Excess -3 2 VBG pH 7.31 L VBG pCO2 50 VBG pO2 39 VBG Base Excess -2 05/26/24 05/29/24 04:17 12:28 ABG pH 7.38 7.42 ABG pCO2 42 35 ABG pO2 81 L 67 L ABG HCO3 25 23 ABG O2 Saturation 97 95 ABG Base Excess 0 -2 VBG pH VBG pCO2 VBG pO2 VBG Base Excess Assessment & Plan Additional Assessment & Plan Additional Plan: 69-year-old female with past medical history of CKD stage III, prediabetes, hypertension who was found unconscious in her room. As well as diarrhea and shortness of breath. Admitted for sepsis secondary to pneumonia and acute metabolic encephalopathy #Acute metabolic encephalopathy- currently in telemetry, significant improvement noted, close to baseline #Generalized weakness --Brain MRI with MRA shows significant stenoses in posterior cerebral artery, no acute infarction noted -Will continue with the current management as per primary team Continue with the passive range of motion exercises prevent contracture Physical therapy as she tolerates. Noted that she has been accepted to inpatient rehab. She will be transferred to [facility] after being cleared by surgery team with regards to the abscess sites
[2024-06-15] VITALS (13 sets, daily range): BP systolic 92–112; BP diastolic 52–90; PULSE 78–132; RESP 13–27; TEMP 36–37.1; O2SAT 96–100; BMI 36.0
[2024-06-15] MEDS: ACETAMINOPHEN 325 MG TABLET 650 MG PO (01:03)
[2024-06-15] MEDS: PIPER/TAZO 2.25 GM 2.25 GM/50 ML BAG IV ×3 (05:35→21:31)
[2024-06-15] MEDS: MIDODRINE 5 MG TABLET PO ×3 (05:36→21:28)
[2024-06-15] MEDS: guaiFENesin SYRUP 200 MG/10 ML UDC PO ×4 (05:36→21:28)
[2024-06-15 07:28] LABS: Alanine Aminotransferase < 7 U/L (10-49); Albumin, Serum 3.9 gm/dL (3.4-4.8); Alkaline Phosphatase 108 U/L (46-116); Anion Gap 18 (7-16); Aspartate Amino Transferase 15 U/L (0-34); BUN/Creatinine Ratio 11 Ratio (12-20); Bilirubin,Total 0.8 mg/dL (0.3-1.2); Blood Urea Nitrogen 60 mg/dL (9-23); Calcium 9.7 mg/dL (8.3-10.6); Calcium (Corrected) 9.8 mg/dL (8.5-10.1); Carbon Dioxide 24.6 mMol/L (20.0-31.0); Chloride 94 mMol/L (98-107); Creatinine (Component) 5.7 mg/dL (0.6-1.3); Estimated Creatinine Clearance 8.1 mL/min (>60); Globulin 3.9 gm/dL (2.3-3.5); Glucose 108 mg/dL (74-106); Magnesium 2.2 mg/dL (1.6-2.6); Osmolality,Calculated 291 (275-295); Phosphorous 7.2 mg/dL (2.4-5.1); Potassium 4.3 mMol/L (3.4-5.1); Sodium 137 mMol/L (136-145); Total Protein 7.8 gm/dL (5.7-8.2); Vancomycin,Random 22.4 mcg/mL; eGFR 8 See Note
--- NOTE | 2024-06-15 07:40 | XR_ITS ---
Examination: AP chest single view Technique one AP portable upright chest single view Exam date and time: June 15, 2024 0751 hours Comparison June 10, 2024 INDICATIONS: Shortness of breath today. FINDINGS: Significant pneumonia right base Small right pleural effusion Left internal jugular dialysis catheter tip satisfactory position Mild heart failure with cardiomegaly and prominent vascular congestion IMPRESSION: Mild heart failure Significant pneumonia right base
[2024-06-15] MEDS: APIXABAN 2.5 MG TABLET 5 MG PO ×2 (09:02→21:27)
[2024-06-15] MEDS: AMIODARONE HCL 200 MG TABLET PO ×2 (09:02→21:28)
[2024-06-15] MEDS: METOPROLOL SUCCINATE XL 25 MG TABCR 50 MG PO (09:03)
[2024-06-15] MEDS: SENNA TABLET 1 TAB PO (09:03)
--- NOTE | 2024-06-15 09:09 | PC.SS ---
SS spoke yosi Stock at [facility] who informed SS that outpt HD can not do the new pt HD on weekends therefore bt will stay until Saturdays HD session then DC to [facility]. Pts first outpt HD will be Wednesday at 0945
[2024-06-15] MEDS: MICAFUNGIN SODIUM INJ 100 MG in SODIUM CHLORIDE 0.9% 100 ML IV (09:21)
[2024-06-15] MEDS: droNABinol 2.5 MG CAPSULE 5 MG PO ×2 (09:21→17:18)
[2024-06-15] MEDS: TIMOLOL OP SOL 0.5% 5 ML BTL 1 DROP BOTH EYES (09:30)
[2024-06-15 11:33] LABS: Basophils # (Auto) 0.1 Thou/mm3 (0.0-0.2); Basophils % (Auto) 1 % (0-2.5); Eosinophils # (Auto) 0.6 Thou/mm3 (0.0-0.5); Eosinophils % (Auto) 3 % (0-10); Hematocrit 24.9 % (36.0-46.0); Immature Granulocytes % (Auto) 2 % (0-0); Immature Granulocytes Auto 0.42 Thou/mm3 (0.00-0.00); Lymphocytes # (Auto) 3.8 Thou/mm3 (1.0-4.8); Lymphocytes % (Auto) 20 % (10-50); Mean Corpuscular HGB Conc 30.9 g/dl (31.0-37.0); Mean Corpuscular Hemoglobin 26.3 pg (25.0-35.0); Mean Corpuscular Volume 85 fL (80-100); Monocytes # (Auto) 1.7 Thou/mm3 (0.0-0.8); Monocytes % (Auto) 9 % (0-12); Neutrophils # (Auto) 11.9 Thou/mm3 (1.8-7.7); Neutrophils % (Auto) 64 % (37-80); Nucleated Red Blood Cell # 0.31 Thou/mm3 (0.00-0.00); Nucleated Red Blood Cell % 2 /100 WBC (0); Platelet Count 290 Thou/mm3 (140-440); RDW Standard Deviation 57.3 fL (36.4-46.3); Red Blood Count 2.93 Miln/mm3 (4.00-5.20); White Blood Count 18.6 Thou/mm3 (3.6-11.0)
--- NOTE | 2024-06-15 11:52 | PD.RESPRO ---
Documentation for date of: 06/15/24 Subjective Subjective Interval history: Mr. Castellanos is a [id number] with past medical history of prediabetes, CKD, hypertension, history of ulcers who was admitted to [facility] for sepsis secondary to pneumonia and acute metabolic encephalopathy. Patient was BIBA to the ED after being found unconscious on the floor. According to the son on admission patient's daughter found the patient at 3 AM passed out on the floor and unresponsive. Family is unaware along the patient was on the floor. 2 days ago patient started to develop abdominal pain and weakness all over her body associated with some diarrhea and shortness of breath. Patient's abdominal pain comes and goes from right side to left side of the abdomen. ED course patient was hypertensive tachycardic tachypneic and was saturating 92% on 5 L nasal cannula ED labs significant for WBCs 24.3, bicarb 19.6, glucose 259, lactic acid 2.2, BNP 304, troponin 0.09. 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, colonic diverticulosis, Cervical spine CT showed 3 mm radiolucency in C3 vertebral body Chest CTA showed mild aneurysmal dilatation ascending thoracic aorta AP dimension 4.3 cm and pulmonary artery hypertension with moderate vascular congestion Face CT shows no acute facial fracture, Lumbar spine CT shows no acute lumbar fracture severe acquired spinal stenosis L4-L5, Thoracic spine CT showed no acute fracture Brain MRI with MRA showed equally focal restricted diffusion brainstem medullary level significant stenosis of right P1 P2 segment posterior cerebral artery Postadmission, cardiology was consulted on admission because of elevated troponins, suspicion of NSTEMI type II, patient has acute decompensated heart failure per cardiology evaluation, neurology consulted because of patient's acute metabolic encephalopathy and GI was consulted for suspicion of GI bleed. Eventually on 05/15 rapid response was called for worsening chest pain, patient's map was consistently in 70s, was tachycardic tachypneic. CT angiogram showed pneumoperitoneum multiple air droplets adjacent to and within wall of stomach with suspicion of gastric perforation. General surgery was consulted for emergency surgery and patient had exploratory laparotomy with repair of perforated gastric ulcer with an omental patch. Patient was upgraded to ICU postop for further management patient currently on Levophed and vasopressor due to distributive shock, currently sedated and intubated on mechanical ventilation. Nephrology consulted due to concern of ADILSON. 06/10/2024 patient currently seen in telemetry. Patient complaining of abdominal pain. Scheduled for dialysis today. Although did have some trouble with catheter before. tPA was placed. Catheter could not be exchanged yesterday. Will monitor catheter function closely. Unfortunately IR not available until Wednesday. 06/11/2024 patient currently seen in telemetry. Sick looking. Did receive dialysis yesterday. Still having some abdominal discomfort.WBC 28.7, hemoglobin 7.8, platelets 261. Sodium 134, potassium 4.8, BUN 53, creatinine 5.6, magnesium 2.4, LFTs normal, albumin 4.0 chest x-ray showed pneumonia/mild heart failure. CT abdomen repeat showed multiple abdominal and pelvic abscesses. Prognosis remains guarded. 06/12/2024 patient was seen and examined at bedside. Patient appears to be fluid overloaded, saturating 97% on 2 L of oxygen, blood pressure of 93/67, pulse rate of 97. her WBC downtrended from 28.7-22.9, CT scan was repeated on the and it showed multiple intra-abdominal abscesses. Hemoglobin stable at 8.1, serum sodium 134, calcium 5.1, BUN of 74 uptrending, serum creatinine increased from 5.67, glucose 99, calcium 9.5, phosphate 8.1. Urine output documented as 0. Today patient is scheduled for dialysis. 06/13/2024 Patient was seen and examined at bedside. No overnight incidents patient saturating 94 on 2 L of oxygen. Patient still require daily dialysis. Treatment team repeated CT scan showed multiple abscesses that believe that most likely secondary to fungal infection, there are pending Dr Horn's recommendations to escalate treatment. Today her WBCs 21.3 yesterday it was 22.9, hemoglobin stable at 7.7, sodium 134, potassium 5.2, chloride 95, serum BUN is 83 and creatinine 7.5. Patient seems to be overloaded next dialysis is going to be tomorrow as per her schedule. 06/14/2024, patient was seen and examined at bedside. Patient today seems to be a little bit more in distress.Her vital signs shows blood pressure of 133/88, pulse rate of 65, she is saturating 96 on 2 L of oxygen. Hemoglobin stable at 7.7, today her potassium is 6.0 patient will undergo dialysis today. Serum creatinine 8.3, BUN of 98. Primary team started the patient on doxepin and hope to improve her appetite, at this time patient is on micafungin. 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 06/15/2024, patient was seen and examined at bedside. Patient denied any new symptoms today. She is saturating 96 on 2 L of oxygen. She appears to be mildly overloaded. Primary team continuing the patient on micafungin and waiting for the fungal culture results. Dialysis tomorrow Exam Vital Signs Temp Pulse Resp BP Pulse Ox O2 Del Method O2 Flow Rate 96.8 F 119 H 21 H 92/52 L 99 Nasal Cannula 1 06/15/24 08:00 06/15/24 09:03 06/15/24 08:00 06/15/24 09:03 06/15/24 08:00 06/15/24 08:00 06/15/24 08:00 FiO2 4 06/14/24 12:54 Narrative Exam PatientGEN: AOx3, flat mood and affect, in semi-sitting position HEENT: NC/AC, oral mucosa moist, neck supple CVS: RRR, S1-S2 present, no murmurs appreciated RESP: faint wheezing on the right side, diffuse coarse crepitations bilaterally more on the basal area. GI: soft, non distended, non tender, NBS MSK: able to move all 4 limbs however significant generalized weakness, +2 lower limb SKIN: warm and dry [employer]: CN II-XII and Sensation grossly intact. Objective Labs 06/15/24 06:18 06/15/24 06:18 Labs: Laboratory Results - last 24 hr 06/12/24 06/15/24 14:35 06:18 Sodium 137 Potassium 4.3 D Chloride 94 L Carbon Dioxide 24.6 Anion Gap 18 H BUN 60 H Creatinine 5.7 H* D Estim Creat Clear Calc 8.1 L eGFR 8 L* BUN/Creatinine Ratio 11 L Glucose 108 H Calculated Osmolality 291 Calcium 9.7 Corrected Calcium 9.8 Phosphorus 7.2 H Magnesium 2.2 Total Bilirubin 0.8 AST 15 ALT < 7 L Alkaline Phosphatase 108 Total Protein 7.8 Albumin 3.9 Globulin 3.9 H Albumin/Globulin Ratio 1.0 L Random Vancomycin 22.4 Mycobacterial Culture See Sep Rpt ABG Interpretation ABG results: 05/13/24 05/15/24 05/15/24 08:29 15:28 16:03 ABG pH 7.39 7.05 L* D 7.17 L* D ABG pCO2 31 L 63 H D 45 D ABG pO2 78 L 38 L* D 84 D ABG HCO3 19 L 18 L 16 L ABG O2 Saturation 96 59 L 96 ABG Base Excess -5 L -12 L -11 L VBG pH VBG pCO2 VBG pO2 VBG Base Excess 05/16/24 05/17/24 05/18/24 04:38 04:03 04:20 ABG pH 7.28 L D 7.38 D 7.49 H D ABG pCO2 34 D 28 L 30 L ABG pO2 96 85 66 L ABG HCO3 16 L 17 L 23 ABG O2 Saturation 98 97 94 ABG Base Excess -10 L -8 L 0 VBG pH VBG pCO2 VBG pO2 VBG Base Excess 05/19/24 05/20/24 05/21/24 09:05 06:05 22:35 ABG pH 7.30 L D 7.41 D ABG pCO2 49 H D 42 ABG pO2 63 L 63 L ABG HCO3 24 27 H ABG O2 Saturation 91 93 ABG Base Excess -3 2 VBG pH 7.31 L VBG pCO2 50 VBG pO2 39 VBG Base Excess -2 05/26/24 05/29/24 04:17 12:28 ABG pH 7.38 7.42 ABG pCO2 42 35 ABG pO2 81 L 67 L ABG HCO3 25 23 ABG O2 Saturation 97 95 ABG Base Excess 0 -2 VBG pH VBG pCO2 VBG pO2 VBG Base Excess Quality Measures Quality Measures none Advance care planning discussed with:: patient and child Assessment & Plan Assessment Current Active Medications: Generic Name Dose Route Start Last Admin Trade Name Freq PRN Reason Stop Dose Admin Acetaminophen 650 mg 06/09/24 14:11 06/15/24 01:03 Acetaminophen 325 Mg Tablet PO 07/09/24 14:10 650 mg Q6HR PRN Administration Fever >101 and pain 1-3 Albuterol/Ipratropium 3 ml 05/27/24 18:08 06/14/24 23:56 Albuterol/Ipratropium (Duoneb) Rt Jimena 3 Ml Nebu INH 06/26/24 18:07 3 ml Q2HR PRN Administration SHORTNESS OF BREATH OR WHEEZE Amiodarone HCl 200 mg 05/29/24 15:00 06/15/24 09:02 Amiodarone Hcl 200 Mg Tablet PO 06/28/24 14:59 200 mg BID ANGELICA Administration Apixaban 5 mg 06/13/24 21:00 06/15/24 09:02 Apixaban 2.5 Mg Tablet PO 07/13/24 20:59 5 mg BID ANGELICA Administration Benzocaine 1 lozenge 05/31/24 11:53 06/09/24 23:07 Benzocaine/Menthol 1 Lozenge PO 06/30/24 11:52 1 lozenge Q4HR PRN Administration Sore throat Dextrose 25 ml 05/24/24 15:43 Dextrose 50%-Water Inj 50 Ml Syringe IV 06/23/24 15:42 Q15MIN PRN BG 50-70 responsive npo pt Dextrose 50 ml 05/24/24 15:43 Dextrose 50%-Water Inj 50 Ml Syringe IV 06/23/24 15:42 Q15MIN PRN BG <50 OR BG <70 & pt unresponsive Dronabinol 5 mg 06/07/24 10:40 06/15/24 09:21 Dronabinol 2.5 Mg Capsule PO 07/07/24 10:39 5 mg BIDAC AGNELICA Administration Furosemide 40 mg 06/09/24 10:15 06/15/24 09:20 Furosemide Inj 10 Mg/Ml 4ml Vial IVP 07/09/24 10:14 Not Given QDAY ANGELICA Glucagon 1 mg 05/24/24 15:43 Glucagon Inj 1 Mg Vial IM Q15MIN PRN BG <70, and no IV access Guaifenesin 200 mg 06/10/24 08:30 06/15/24 05:36 Guaifenesin Syrup 200 Mg/10 Ml Udc PO 07/10/24 08:29 200 mg QID ANGELICA Administration Protocol Heparin Sodium (Porcine) 3,500 unit 06/07/24 18:06 06/14/24 12:37 Heparin Sod Inj 1000 Unit/Ml Vial 10 Ml INDWELLCAT 06/21/24 18:05 3,500 unit PRN PRN Administration DIALYSIS Piperacillin/Tazobactam/Dextrose 2.25 gm in 50 mls @ 100 mls/hr 06/10/24 12:10 06/15/24 05:35 Zosyn IV 06/17/24 12:09 100 mls/hr Q8HR ANGELICA Administration Micafungin Sodium 100 mg/ 100 mls @ 100 mls/hr 06/10/24 13:56 06/15/24 09:21 Sodium Chloride IV 06/25/24 13:55 100 mls/hr QDAY ANGELICA Administration Albumin Human 25 gm in 100 mls @ 100 mls/hr 06/12/24 16:40 06/14/24 10:19 Albuminar-25 Ivpb IV 100 mls/hr PRN PRN Administration DIALYSIS Insulin Glargine 12 unit 05/25/24 09:00 06/15/24 09:08 Insulin Glargine (Lantus) 5 Unit/0.05 Ml (Per 5 Units) SC 06/24/24 08:59 Not Given QDAY ANGELICA Insulin Human Lispro 0 unit 05/24/24 18:00 06/15/24 05:43 Insulin Lispro (Admelog) 1 Unit/0.01 Ml Unit SC 06/23/24 17:59 Not Given Q6HR [facility] Protocol Lidocaine 1 patch 05/30/24 09:16 06/01/24 19:01 Lidocaine 5% 1 Patch TOP 06/29/24 09:15 1 patch DAILY PRN Administration BACK PAIN Metoprolol Succinate 50 mg 06/12/24 15:36 06/15/24 09:03 Metoprolol Succinate Xl 25 Mg Tabcr PO 07/09/24 21:04 50 mg QDAY ANGELICA Administration Metoprolol Tartrate 50 mg 06/14/24 08:37 Metoprolol Tartrate 25 Mg Tablet PO 07/12/24 08:59 QDAY PRN Tachycardia above 150 Midodrine 5 mg 06/12/24 22:00 06/15/24 05:36 Midodrine 5 Mg Tablet PO 07/12/24 21:59 5 mg TID ANGELICA Administration Mirtazapine 15 mg 06/13/24 21:00 06/14/24 21:26 Mirtazapine 15 Mg Tablet PO 07/13/24 20:59 15 mg HS ANGEILCA Administration Pharmacy Consult 1 each 06/10/24 12:15 Vancomycin Pharmacy To Dose 1 Each Each IV 07/10/24 12:14 QDAY PRN CONSULT Polyethylene Glycol 17 gm 06/12/24 15:36 Polyethylene Glycol 17 Gm Packet PO 07/09/24 10:44 BID PRN constipation Protocol Sennosides 1 tab 06/09/24 10:45 06/15/24 09:03 Senna Tablet PO 07/09/24 10:44 1 tab QDAY ANGELICA Administration Protocol Sodium Chloride 3 ml 05/24/24 19:00 Sodium Chloride Rt Jimena 0.9% 3 Ml Nebu INH 06/23/24 18:59 PRN PRN SOLN Timolol Maleate 1 drop 05/28/24 18:15 06/14/24 14:35 Timolol Op Jimena 0.5% 5 Ml Btl BOTH EYES 06/27/24 18:14 Not Given DAILY ANGELICA Plan Mr. Castellanos is a [id number] with past medical history of prediabetes, CKD, hypertension, history of ulcers who was admitted to [facility] for sepsis secondary to pneumonia and acute metabolic encephalopathy. Patient is currently sedated intubated in ICU status post exploratory laparotomy with repair of perforated gastric ulcer with an omental patch. Nephrology consulted for acute kidney injury. Assessment and plan #Acute kidney injury on dialysis M/W/F #Acute Tubular Necrosis 2/2 shock # Fluid overload Patient currently seems to be in ATN probably ischemic from fluctuations in blood pressure and underlying shock- started her on dialysis. Plan ? Dialysis tomorrow as per schedule. ? Pharmacy to dose medications ? Avoid nephrotoxic medications ? Continue strict in and out ? Recommend to monitor fluid that was brought from home as it may contain high salt which may worsen her fluid overload. #Acute ischemic stroke #Acute decompensated HF #Hyperlipidemia #Primary Hypertension #Acute Hypoxic Respiratory failure #Peritonitis secondary to perforated gastric ulcer- s/p sx, drains removed #Acute Upper GI bleed #Diabetes Mellitus type II #Acute anemia Plan ? Follow-up with the primary team recommendations Thank you for your consultation, please do not hesitate to reach out if you have any concerns or questions. All above problems per primary team. Prognosis remains guarded. - Patient's plan and care discussed with my attending, Dr. Mata Sifuentes MD Internal Medicine PGY-2 Attending Provider Attestation/Addendum patient seen and examined with resident physician Dr. Barton. Note reviewed, agree with findings and recommendations. Had a long conversation with the daughter-currently on micafungin for fungal abdominal abscesses Prognosis remains Guarded Long-term Next dialysis scheduled for tomorrow
[2024-06-15 11:53] LABS: Hemoglobin 7.7 g/dL (12.0-16.0)
--- NOTE | 2024-06-15 13:14 | ESPR_ITS ---
Documentation for date of: 06/15/24 Subjective Subjective Interval history: 06/11/2024: Patient examined at bedside today. Telemetry reviewed and patient seems to be in 120s and 130s still in A-fib. Patient reports that she still experiencing some pain in her abdomen. Patient is likely going in higher heart rate because of uncontrolled pain, drainage to be done tomorrow. Patient's white count is 29 today, was started on Zosyn and Vanco. Patient's BUN/creatinine 53 and 5.6 respectively, will do dialysis tomorrow, dialysis yesterday at 1.5 L removed. Will continue to to try to control patient's pain and patient will need drainage with a goal of procedure to be tomorrow. Will add metoprolol as needed if patient's heart rate goes to the 150s. 06/12/2024: Pt examined at bedside today. Telemetry reviewed and pt appears to still be in fib, rate controlled in 120s. Pt reports she is still experiencing some abdominal pain, however it has been relatively controlled. I adjusted her positioning in her bed. She is agreeable with continuing abscess drainage. Her WBC count is going down, 23 today. BUN/Cr 74 and 7.0 respectively, potassium 5.1, Mg 2.4, dialysis should be done today, will touch base with nephrology team. Will continue current medicines with Amio, metoprolol, hep drip to be stopped before procedure. 06/13/2024: Patient examined bedside today. Telemetry reviewed and patient still appears to be in A-fib, rate in the 90s to 100. Patient says she is doing okay today, she is not experiencing any abdominal pain at this time. Hemoglobin around 8 today, BUN/creatinine of 84 and 7.5 respectively. Will continue with Amio and metoprolol 50 XL. Blood pressure little soft today 94/74. Patient still on heparin drip, will transition to Eliquis at some point. 06/14/2024: Patient examined at bedside. Telemetry reviewed and patient still appears to be in A-fib, rate controlled in the 90s to 100s. Patient says she is doing better, improved pain. She is aware that she is going to get dialysis today. Potassium of 6 today hemoglobin around 8, BUN and creatinine of 90 and 8.3 respectively. Patient got dialysis had 1.9 L removed and is improving. Will continue with current management of metoprolol and Amio. 06/15/2024: Patient will have lipids today. Telemetry reviewed and patient still appears to be in A-fib, however rate controlled 90s. Patient says she is doing better and her pain is not controlled. Patient's magnesium 2.2 phosphorus 7.2 potassium 4.3. Patient's hemoglobin at 7.7. Dialysis tomorrow. Exam Vital Signs Temp Pulse Resp BP Pulse Ox O2 Del Method O2 Flow Rate 96.9 F 95 20 112/65 100 Nasal Cannula 2 06/15/24 12:00 06/15/24 13:11 06/15/24 12:00 06/15/24 13:11 06/15/24 12:00 06/15/24 12:06/15/24 12:00 FiO2 4 06/14/24 12:54 Narrative Exam General: AAOx3, obese female, patient appears to be comfortable sitting up right HEENT: Moist mucous membranes, conjunctiva clear, EOMI, PERRLA, Cardiovascular: S1, S2, radial pulses +2 bilat, irregularly irregular rhythm, tachycardic Pulmonary: Wheezing heard in lungs bilat, congestion and cough GI: Bandages present, no ascites, mildly distended in RUQ, minimal pain to palpation of the abdomen Extremities: SCDs present, pitting edema in LE +1 bilat Neuro: AAOx3, no focal motor or sensory deficits in the UE or LE bilat Psych: Cooperative. Objective Labs 06/16/24 05:08 06/16/24 05:08 Labs: Laboratory Results - last 24 hr 06/12/24 06/15/24 14:35 06:18 WBC 18.6 H RBC 2.93 L Hgb 7.7 L Hct 24.9 L MCV 85 MCH 26.3 MCHC 30.9 L RDW Std Deviation 57.3 H Plt Count 290 D Neut % (Auto) 64 Lymph % (Auto) 20 [place] % (Auto) 9 Eos % (Auto) 3 Baso % (Auto) 1 Neut # (Auto) 11.9 H Lymph # (Auto) 3.8 [place] # (Auto) 1.7 H Eos # (Auto) 0.6 H Baso # (Auto) 0.1 Immature Gran # (Auto) 0.42 H Absolute Nucleated RBC 0.31 H Immature Gran % 2 H Nucleated RBC % 2 H Sodium 137 Potassium 4.3 D Chloride 94 L Carbon Dioxide 24.6 Anion Gap 18 H BUN 60 H Creatinine 5.7 H* D Estim Creat Clear Calc 8.1 L eGFR 8 L* BUN/Creatinine Ratio 11 L Glucose 108 H Calculated Osmolality 291 Calcium 9.7 Corrected Calcium 9.8 Phosphorus 7.2 H Magnesium 2.2 Total Bilirubin 0.8 AST 15 ALT < 7 L Alkaline Phosphatase 108 Total Protein 7.8 Albumin 3.9 Globulin 3.9 H Albumin/Globulin Ratio 1.0 L Random Vancomycin 22.4 Mycobacterial Culture See Sep Rpt ABG Interpretation ABG results: 05/13/24 05/15/24 05/15/24 08:29 15:28 16:03 ABG pH 7.39 7.05 L* D 7.17 L* D ABG pCO2 31 L 63 H D 45 D ABG pO2 78 L 38 L* D 84 D ABG HCO3 19 L 18 L 16 L ABG O2 Saturation 96 59 L 96 ABG Base Excess -5 L -12 L -11 L VBG pH VBG pCO2 VBG pO2 VBG Base Excess 05/16/24 05/17/24 05/18/24 04:38 04:03 04:20 ABG pH 7.28 L D 7.38 D 7.49 H D ABG pCO2 34 D 28 L 30 L ABG pO2 96 85 66 L ABG HCO3 16 L 17 L 23 ABG O2 Saturation 98 97 94 ABG Base Excess -10 L -8 L 0 VBG pH VBG pCO2 VBG pO2 VBG Base Excess 05/19/24 05/20/24 05/21/24 09:05 06:05 22:35 ABG pH 7.30 L D 7.41 D ABG pCO2 49 H D 42 ABG pO2 63 L 63 L ABG HCO3 24 27 H ABG O2 Saturation 91 93 ABG Base Excess -3 2 VBG pH 7.31 L VBG pCO2 50 VBG pO2 39 VBG Base Excess -2 05/26/24 05/29/24 04:17 12:28 ABG pH 7.38 7.42 ABG pCO2 42 35 ABG pO2 81 L 67 L ABG HCO3 25 23 ABG O2 Saturation 97 95 ABG Base Excess 0 -2 VBG pH VBG pCO2 VBG pO2 VBG Base Excess Quality Measures Quality Measures none Advance care planning discussed with:: patient Assessment & Plan Assessment Current Active Medications: Generic Name Dose Route Start Last Admin Trade Name Freq PRN Reason Stop Dose Admin Acetaminophen 650 mg 06/09/24 14:11 06/15/24 01:03 Acetaminophen 325 Mg Tablet PO 07/09/24 14:10 650 mg Q6HR PRN Administration Fever >101 and pain 1-3 Albuterol/Ipratropium 3 ml 05/27/24 18:08 06/14/24 23:56 Albuterol/Ipratropium (Duoneb) Rt Jimena 3 Ml Nebu INH 06/26/24 18:07 3 ml Q2HR PRN Administration SHORTNESS OF BREATH OR WHEEZE Amiodarone HCl 200 mg 05/29/24 15:00 06/15/24 09:02 Amiodarone Hcl 200 Mg Tablet PO 06/28/24 14:59 200 mg BID ANGELICA Administration Apixaban 5 mg 06/13/24 21:00 06/15/24 09:02 Apixaban 2.5 Mg Tablet PO 07/13/24 20:59 5 mg BID ANGELICA Administration Benzocaine 1 lozenge 05/31/24 11:53 06/09/24 23:07 Benzocaine/Menthol 1 Lozenge PO 06/30/24 11:52 1 lozenge Q4HR PRN Administration Sore throat Dextrose 25 ml 05/24/24 15:43 Dextrose 50%-Water Inj 50 Ml Syringe IV 06/23/24 15:42 Q15MIN PRN BG 50-70 responsive npo pt Dextrose 50 ml 05/24/24 15:43 Dextrose 50%-Water Inj 50 Ml Syringe IV 06/23/24 15:42 Q15MIN PRN BG <50 OR BG <70 & pt unresponsive Dronabinol 5 mg 06/07/24 10:40 06/15/24 09:21 Dronabinol 2.5 Mg Capsule PO 07/07/24 10:39 5 mg BIDAC ANGELICA Administration Furosemide 40 mg 06/09/24 10:15 06/15/24 09:20 Furosemide Inj 10 Mg/Ml 4ml Vial IVP 07/09/24 10:14 Not Given QDAY ANGELICA Glucagon 1 mg 05/24/24 15:43 Glucagon Inj 1 Mg Vial IM Q15MIN PRN BG <70, and no IV access Guaifenesin 200 mg 06/10/24 08:30 06/15/24 12:06 Guaifenesin Syrup 200 Mg/10 Ml Udc PO 07/10/24 08:29 200 mg QID ANGELICA Administration Protocol Heparin Sodium (Porcine) 3,500 unit 06/07/24 18:06 06/14/24 12:37 Heparin Sod Inj 1000 Unit/Ml Vial 10 Ml INDWELLCAT 06/21/24 18:05 3,500 unit PRN PRN Administration DIALYSIS Piperacillin/Tazobactam/Dextrose 2.25 gm in 50 mls @ 100 mls/hr 06/10/24 12:10 06/15/24 13:12 Zosyn IV 06/17/24 12:09 100 mls/hr Q8HR ANGELICA Administration Micafungin Sodium 100 mg/ 100 mls @ 100 mls/hr 06/10/24 13:56 06/15/24 09:21 Sodium Chloride IV 06/25/24 13:55 100 mls/hr QDAY ANGELICA Administration Albumin Human 25 gm in 100 mls @ 100 mls/hr 06/12/24 16:40 06/14/24 10:19 Albuminar-25 Ivpb IV 100 mls/hr PRN PRN Administration DIALYSIS Insulin Glargine 12 unit 05/25/24 09:00 06/15/24 09:08 Insulin Glargine (Lantus) 5 Unit/0.05 Ml (Per 5 Units) SC 06/24/24 08:59 Not Given QDAY ANGELICA Insulin Human Lispro 0 unit 05/24/24 18:00 06/15/24 12:01 Insulin Lispro (Admelog) 1 Unit/0.01 Ml Unit SC 06/23/24 17:59 Not Given Q6HR [facility] Protocol Lidocaine 1 patch 05/30/24 09:16 06/01/24 19:01 Lidocaine 5% 1 Patch TOP 06/29/24 09:15 1 patch DAILY PRN Administration BACK PAIN Metoprolol Succinate 50 mg 06/12/24 15:36 06/15/24 09:03 Metoprolol Succinate Xl 25 Mg Tabcr PO 07/09/24 21:04 50 mg QDAY ANGELICA Administration Metoprolol Tartrate 50 mg 06/14/24 08:37 Metoprolol Tartrate 25 Mg Tablet PO 07/12/24 08:59 QDAY PRN Tachycardia above 150 Midodrine 5 mg 06/12/24 22:00 06/15/24 13:11 Midodrine 5 Mg Tablet PO 07/12/24 21:59 5 mg TID ANGELICA Administration Mirtazapine 15 mg 06/13/24 21:00 06/14/24 21:26 Mirtazapine 15 Mg Tablet PO 07/13/24 20:59 15 mg HS ANGELICA Administration Pharmacy Consult 1 each 06/10/24 12:15 Vancomycin Pharmacy To Dose 1 Each Each IV 07/10/24 12:14 QDAY PRN CONSULT Polyethylene Glycol 17 gm 06/12/24 15:36 Polyethylene Glycol 17 Gm Packet PO 07/09/24 10:44 BID PRN constipation Protocol Sennosides 1 tab 06/09/24 10:45 06/15/24 09:03 Senna Tablet PO 07/09/24 10:44 1 tab QDAY ANGELICA Administration Protocol Sodium Chloride 3 ml 05/24/24 19:00 Sodium Chloride Rt Jimena 0.9% 3 Ml Nebu INH 06/23/24 18:59 PRN PRN SOLN Timolol Maleate 1 drop 05/28/24 18:15 06/15/24 09:30 Timolol Op Jimena 0.5% 5 Ml Btl BOTH EYES 06/27/24 18:14 1 drop DAILY ANGELICA Administration Plan Assessment Ms. Castellanos is a 69-year-old female with past medical history significant for hypertension, diabetes and history of gastric ulcers who presented to the ED on 05/13/2024 after she was found unconscious on the floor. Per chart reviewing prior to this unconsciousness patient was having abdominal pain and generalized weakness with diarrhea and shortness of breath for 2 days. Patient was admitted to the hospital for treatment and management of sepsis secondary to pneumonia. Patient was given 1 L normal saline and started on ceftriaxone and azithromycin. patient underwent ex lap surgery for perforated gastric ulcer. Patient remained intubated postop and was upgraded to the ICU. Patient continues to be on dialysis after downgrade, has BALAJI and accordion drain intact, completed bowel rest, was started on dysphagia 1 diet, surgery following case closely, will continue to monitor. #New onset A-fib with RVR, improving, rate controlled New onset of Afib, likely related to septic shock requiring pressor support and increased demand from perforated ulcer complicated by abdominal abscesses Pt appears to still be in A-fib, rate controlled, 90s to mid 100s Previous EKG shows a-fib w/RVR CHADVASC: 5 Pts 7.2 % stroke risk per year HAS-BLED score: 3, high risk of major bleeding Patient continues to be rate controlled, rate in the 90s Plan: ?Continue with Oral Amio 200 mg BID ?Continue with metoprolol XL 50 ?Continue with Eliquis 5 mg twice daily #Acute exacerbation of HFpEF #HFpEF EF 55 to 60% #History of primary hypertension -Echo 05/16/2024 -estimated EF of 55 to 60%, stage I diastolic dysfunction noted, Moderate to severe posterior MAC Pt has new onset of ESRD requiring HD, requiring midodrine 10 mg QID to tolerate HD Not resuming home amlodipine at this time due to patient being A-fib and blood pressure eventually be controlled with beta-christian We recommend to give midodrine 5 to 10 mg 15 to 30 minutes before dialysis, can give additional 2.5 to 5 mg after dialysis as long as 3 hours after predialysis dose Half-life of midodrine is 9 to 10 hours and patient with CKD something to keep in mind Plan: ?Resume GDMT as able, metoprolol on board right now, as above ?Fluid restriction ?Daily weights ?Strict ins and outs ?Keep potassium and magnesium above 4 and 2 respectively #Hx of Diabetes Mellitus type II Most recent A1c 05/21/2024: 6.2 Plan: Management by primary team #Perforated gastric ulcer #Pneumoperitoneum #Peritonitis secondary to perforated gastric ulcer #Abdominal Abscess, s/p percutaneous drainage x3 Patient found to have tender abdomen, rigidity in the epigastrium, chest x-ray showed elevation of hemidiaphragm, CT abdomen showed pneumoperitoneum, concern for perforated viscus, general surgeon Dr. Santana was consulted for emergency laparotomy and possible repair of perforated gastric ulcer. Repeat CT abd/pel on 05/20 revealed Pneumoperitoneum, orogastric tube in the stomach, mild free fluid adjacent to the stomach and anterior to the pancreas. s/p Exploratory laparotomy & repair of perforated gastric ulcer - 05/15. 06/01/24: Overnight there was concern of wound dehiscence. Discussed with general surgeon per surgery superior aspect of the wound was dehiscent after removal of aixa.Surgery removal of BALAJI drain on 06/01. Repeat CT on 06/01- More pronounced fluid collection in the left abdomen below the spleen, 8.9 x 6.4cm, free fluid in the abdomen and pelvis, and Ascites -Abscess culture from 05/25 grew edna albicans ?Repeat CT abdomen pelvis shows abscess collection lower left abdomen has markedly decreased in size and the accordion drains have no output this morning Plan: Management by primary hospitalist team #Acute blood loss anemia, stable Likely related to perforated ulcer Hgb stable ~7.7 Plan: Management by primary hospitalist team #Acute tubular necrosis, requiring hemodialysis #Acute Hypoxic Respiratory failure #Acute Upper GI bleed - stable #Hyperlipidemia #Acute blood loss anemia, stable #Acute encephalopathy-resolved #Septic Shock - resolved #Hypoosmolar Hyponatremia, resolved Above managed by primary hospitalist team Patient seen and care discussed with my attending physician, Dr. Susan Mathews, PGY-1 Attending Provider Attestation/Addendum I have personally seen and examined the patient separately on the above date of service and discussed the plan of care with the resident. I reviewed the resident Dr. Hernandes consultation progress note and agree with the resident findings and plan in the note above and have also edited the documentation to reflect my findings and plan. Jalen Davis M.D. Interventional Cardiology
--- NOTE | 2024-06-15 14:20 | PD.RESPRO ---
Documentation for date of: 06/15/24 Senior resident attestation: Patient evaluated and examined at the bedside, plan of care discussed with rest of the team including my attending physician, except as noted. Protected hospital course complicated by gastric perforation status post emergent laparotomy and repair, ICU stay as well as multiple postop abscesses and pneumonia. Also developed ADILSON/ATN requiring hemodialysis, patient has made less than optimal recovery postop, continues to develop multiple abdominal abscesses, repeat cultures grew Edna, was started on fluconazole, currently completing more than 2 weeks of fluconazole but had repeat abdominal pelvic abscesses on abdominal imaging. IR CT-guided abscess drainage was ordered, pelvic abscess was not amenable to drainage, smaller abscess was drained, sent for microbiology. Noted uptrending WBC count and increased patient discomfort as well as somnolence, started on broad-spectrum antibiotics for aspiration versus hospital-acquired pneumonia IV Zosyn and vancomycin as well as micafungin for candidal abscess not respond to fluconazole. Will get infectious disease specialist Dr Horn on board, regarding continuing micafungin versus optimal duration of therapy for fluconazole. #Sepsis?secondary to?Peritonitis secondary to perforated gastric ulcer s/p repair #Postop intra-abdominal abscess s/p drainage, likely fungal- will continue with antibiotics and micafungin pending abscess culture. And ID recommendations. daily PT , mobilize patient. #Pneumonia, HCAP - on zosyn and vanc, cultures negative to date , but was started after worsening leucocytosis and pneumonic infiltrates on cxr, now improving. #A-fib RVR - on eliquis and po amiodarone #NSTEMI type 2 #ATN, likely progressed to ESRD- HD wed,nita,sat , dailysis chair secured, but to establish outpatient dialysis pt may need to stay until wednesday and get inpt HD then discarged and can get outpt HD on wednesday #Acute toxic encephalopathy?in the setting of sepsis?improving #Protein calorie malnutrition as well as general deconditioning due to poor diet, #History of diabetes mellitus- #History of gastric ulcer- BID protonix #Acute blood loss anemia secondary to GI bleed - resolved Quresh pgy 2 Patient evaluated and examined at the bedside, plan of care discussed with rest of the team including my attending physician, except as noted. Quresh PGY2 Subjective Subjective Interval history: 06/15: no acute overnight events, pt is seen and examined at bedside with daughter at bedside and another daughter on the phone. Explained to them that pt. is unable to be discharged as her dialysis schedule is , and wed. and since she will be undergoing dialysis today and outpatient dialysis does not accept new patients on Saturdays. Pt. continues to require oxygen and has a productive cough. Family is asked to encourage the patient in participating in coughing, eating, talking. If pt likes home cooked meals to be encouraged to bring food from home. Pt is not making any urine therefore will discontinue lasix. Leukocytosis is slowly downtrending. repeat chest xray show Significant pneumonia right base and Small right pleural effusion. Pt is on zoyn. Exam Vital Signs Temp Pulse Resp BP Pulse Ox O2 Del Method O2 Flow Rate 96.9 F 95 20 112/65 100 Nasal Cannula 2 06/15/24 12:00 06/15/24 13:11 06/15/24 12:00 06/15/24 13:11 06/15/24 12:00 06/15/24 12:00 06/15/24 12:00 FiO2 4 06/14/24 12:54 Narrative Exam GENERAL: A&Ox3 . Awake and alert, Pt. is on 2L oxygen via nasal cannula NEURO: no focal neurological deficits HEENT: Atraumatic, Normocephalic. mucous membranes moist. Eyes open, symmetrical, & clear HEART: Normal Heart Sounds LUNGS: faint wheezing bilaterally and crackles on auscultation ABDOMEN: soft, non-distended, non-tender, bowel sounds heard, no guarding or rebound tenderness, incision site is clean. SKIN: No Rash or ecchymoses EXTREMITIES: 2+ pitting edema bilaterally on LE, tenderness, able to move all 4 extremities, pedal pulses palpated Objective Labs 06/16/24 05:08 06/16/24 05:08 Labs: Laboratory Results - last 24 hr 06/12/24 06/15/24 14:35 06:18 WBC 18.6 H RBC 2.93 L Hgb 7.7 L Hct 24.9 L MCV 85 MCH 26.3 MCHC 30.9 L RDW Std Deviation 57.3 H Plt Count 290 D Neut % (Auto) 64 Lymph % (Auto) 20 [place] % (Auto) 9 Eos % (Auto) 3 Baso % (Auto) 1 Neut # (Auto) 11.9 H Lymph # (Auto) 3.8 [place] # (Auto) 1.7 H Eos # (Auto) 0.6 H Baso # (Auto) 0.1 Immature Gran # (Auto) 0.42 H Absolute Nucleated RBC 0.31 H Immature Gran % 2 H Nucleated RBC % 2 H Sodium 137 Potassium 4.3 D Chloride 94 L Carbon Dioxide 24.6 Anion Gap 18 H BUN 60 H Creatinine 5.7 H* D Estim Creat Clear Calc 8.1 L eGFR 8 L* BUN/Creatinine Ratio 11 L Glucose 108 H Calculated Osmolality 291 Calcium 9.7 Corrected Calcium 9.8 Phosphorus 7.2 H Magnesium 2.2 Total Bilirubin 0.8 AST 15 ALT < 7 L Alkaline Phosphatase 108 Total Protein 7.8 Albumin 3.9 Globulin 3.9 H Albumin/Globulin Ratio 1.0 L Random Vancomycin 22.4 Mycobacterial Culture See Jan Rpt ABG Interpretation ABG results: 05/13/24 05/15/24 05/15/24 08:29 15:28 16:03 ABG pH 7.39 7.05 L* D 7.17 L* D ABG pCO2 31 L 63 H D 45 D ABG pO2 78 L 38 L* D 84 D ABG HCO3 19 L 18 L 16 L ABG O2 Saturation 96 59 L 96 ABG Base Excess -5 L -12 L -11 L VBG pH VBG pCO2 VBG pO2 VBG Base Excess 05/16/24 05/17/24 05/18/24 04:38 04:03 04:20 ABG pH 7.28 L D 7.38 D 7.49 H D ABG pCO2 34 D 28 L 30 L ABG pO2 96 85 66 L ABG HCO3 16 L 17 L 23 ABG O2 Saturation 98 97 94 ABG Base Excess -10 L -8 L 0 VBG pH VBG pCO2 VBG pO2 VBG Base Excess 05/19/24 05/20/24 05/21/24 09:05 06:05 22:35 ABG pH 7.30 L D 7.41 D ABG pCO2 49 H D 42 ABG pO2 63 L 63 L ABG HCO3 24 27 H ABG O2 Saturation 91 93 ABG Base Excess -3 2 VBG pH 7.31 L VBG pCO2 50 VBG pO2 39 VBG Base Excess -2 05/26/24 05/29/24 04:17 12:28 ABG pH 7.38 7.42 ABG pCO2 42 35 ABG pO2 81 L 67 L ABG HCO3 25 23 ABG O2 Saturation 97 95 ABG Base Excess 0 -2 VBG pH VBG pCO2 VBG pO2 VBG Base Excess Quality Measures Quality Measures none Advance care planning discussed with:: patient and child Assessment & Plan Assessment Current Active Medications: Generic Name Dose Route Start Last Admin Trade Name Freq PRN Reason Stop Dose Admin Acetaminophen 650 mg 06/09/24 14:11 06/15/24 01:03 Acetaminophen 325 Mg Tablet PO 07/09/24 14:10 650 mg Q6HR PRN Administration Fever >101 and pain 1-3 Albuterol/Ipratropium 3 ml 05/27/24 18:08 06/14/24 23:56 Albuterol/Ipratropium (Duoneb) Rt Jimena 3 Ml Nebu INH 06/26/24 18:07 3 ml Q2HR PRN Administration SHORTNESS OF BREATH OR WHEEZE Amiodarone HCl 200 mg 05/29/24 15:00 06/15/24 09:02 Amiodarone Hcl 200 Mg Tablet PO 06/28/24 14:59 200 mg BID ANGELICA Administration Apixaban 5 mg 06/13/24 21:00 06/15/24 09:02 Apixaban 2.5 Mg Tablet PO 07/13/24 20:59 5 mg BID ANGELICA Administration Benzocaine 1 lozenge 05/31/24 11:53 06/09/24 23:07 Benzocaine/Menthol 1 Lozenge PO 06/30/24 11:52 1 lozenge Q4HR PRN Administration Sore throat Dextrose 25 ml 05/24/24 15:43 Dextrose 50%-Water Inj 50 Ml Syringe IV 06/23/24 15:42 Q15MIN PRN BG 50-70 responsive npo pt Dextrose 50 ml 05/24/24 15:43 Dextrose 50%-Water Inj 50 Ml Syringe IV 06/23/24 15:42 Q15MIN PRN BG <50 OR BG <70 & pt unresponsive Dronabinol 5 mg 06/07/24 10:40 06/15/24 09:21 Dronabinol 2.5 Mg Capsule PO 07/07/24 10:39 5 mg BIDAC ANGELICA Administration Furosemide 40 mg 06/09/24 10:15 06/15/24 09:20 Furosemide Inj 10 Mg/Ml 4ml Vial IVP 07/09/24 10:14 Not Given QDAY ANGELICA Glucagon 1 mg 05/24/24 15:43 Glucagon Inj 1 Mg Vial IM Q15MIN PRN BG <70, and no IV access Guaifenesin 200 mg 06/10/24 08:30 06/15/24 12:06 Guaifenesin Syrup 200 Mg/10 Ml Udc PO 07/10/24 08:29 200 mg QID ANGELICA Administration Protocol Heparin Sodium (Porcine) 3,500 unit 06/07/24 18:06 06/14/24 12:37 Heparin Sod Inj 1000 Unit/Ml Vial 10 Ml INDWELLCAT 06/21/24 18:05 3,500 unit PRN PRN Administration DIALYSIS Piperacillin/Tazobactam/Dextrose 2.25 gm in 50 mls @ 100 mls/hr 06/10/24 12:10 06/15/24 13:12 Zosyn IV 06/17/24 12:09 100 mls/hr Q8HR ANGELICA Administration Micafungin Sodium 100 mg/ 100 mls @ 100 mls/hr 06/10/24 13:56 06/15/24 09:21 Sodium Chloride IV 06/25/24 13:55 100 mls/hr QDAY ANGELICA Administration Albumin Human 25 gm in 100 mls @ 100 mls/hr 06/12/24 16:40 06/14/24 10:19 Albuminar-25 Ivpb IV 100 mls/hr PRN PRN Administration DIALYSIS Insulin Glargine 12 unit 05/25/24 09:00 06/15/24 09:08 Insulin Glargine (Lantus) 5 Unit/0.05 Ml (Per 5 Units) SC 06/24/24 08:59 Not Given QDAY ANGELICA Insulin Human Lispro 0 unit 05/24/24 18:00 06/15/24 12:01 Insulin Lispro (Admelog) 1 Unit/0.01 Ml Unit SC 06/23/24 17:59 Not Given Q6HR PENDING SALE TO [facility] Protocol Lidocaine 1 patch 05/30/24 09:16 06/01/24 19:01 Lidocaine 5% 1 Patch TOP 06/29/24 09:15 1 patch DAILY PRN Administration BACK PAIN Metoprolol Succinate 50 mg 06/12/24 15:36 06/15/24 09:03 Metoprolol Succinate Xl 25 Mg Tabcr PO 07/09/24 21:04 50 mg QDAY ANGELICA Administration Metoprolol Tartrate 50 mg 06/14/24 08:37 Metoprolol Tartrate 25 Mg Tablet PO 07/12/24 08:59 QDAY PRN Tachycardia above 150 Midodrine 5 mg 06/12/24 22:00 06/15/24 13:11 Midodrine 5 Mg Tablet PO 07/12/24 21:59 5 mg TID ANGELICA Administration Mirtazapine 15 mg 06/13/24 21:00 06/14/24 21:26 Mirtazapine 15 Mg Tablet PO 07/13/24 20:59 15 mg HS ANGELICA Administration Pharmacy Consult 1 each 06/10/24 12:15 Vancomycin Pharmacy To Dose 1 Each Each IV 07/10/24 12:14 QDAY PRN CONSULT Polyethylene Glycol 17 gm 06/12/24 15:36 Polyethylene Glycol 17 Gm Packet PO 07/09/24 10:44 BID PRN constipation Protocol Sennosides 1 tab 06/09/24 10:45 06/15/24 09:03 Senna Tablet PO 07/09/24 10:44 1 tab QDAY ANGELICA Administration Protocol Sodium Chloride 3 ml 05/24/24 19:00 Sodium Chloride Rt Jimena 0.9% 3 Ml Nebu INH 06/23/24 18:59 PRN PRN SOLN Timolol Maleate 1 drop 05/28/24 18:15 06/15/24 09:30 Timolol Op Jimena 0.5% 5 Ml Btl BOTH EYES 06/27/24 18:14 1 drop DAILY ANGELICA Administration Plan Ms. Castellanos is a 69-year-old female with past medical history significant for hypertension, diabetes and history of gastric ulcers who presented to the ED on 05/13/2024 after she was found unconscious on the floor. Per chart reviewing prior to this unconsciousness patient was having abdominal pain and generalized weakness with diarrhea and shortness of breath for 2 days. Patient was admitted to the hospital for treatment and management of sepsis secondary to pneumonia. Patient was given 1 L normal saline and started on ceftriaxone and azithromycin. patient underwent ex lap surgery for perforated gastric ulcer. Patient remained intubated postop and was upgraded to the ICU. Patient continues to be on dialysis after downgrade, has BALAJI and accordion drain intact, completed bowel rest, was started on dysphagia 1 diet, surgery following case closely, will continue to monitor. #Perforated gastric ulcer #Hx of gastric ulcers #Pneumoperitoneum #Peritonitis secondary to perforated gastric ulcer - s/p ex lap #Abdominal Abscess, s/p percutaneous drainage x2- removed #Abdominal and pelvic abscesses #Leukocytosis-improving Patient found to have tender abdomen, rigidity in the epigastrium, chest x-ray showed elevation of hemidiaphragm, CT abdomen showed pneumoperitoneum, concern for perforated viscus, general surgeon Dr. Santana was consulted for emergency laparotomy and possible repair of perforated gastric ulcer. Repeat CT abd/pel on 05/20 revealed Pneumoperitoneum, orogastric tube in the stomach, mild free fluid adjacent to the stomach and anterior to the pancreas. s/p Exploratory laparotomy & repair of perforated gastric ulcer - 05/15. 06/01/24: Overnight there was concern of wound dehiscence. Discussed with general surgeon per surgery superior aspect of the wound was dehiscent after removal of aixa.Surgery removal of BALAJI drain on 06/01. Repeat CT on 06/01- More pronounced fluid collection in the left abdomen below the spleen, 8.9 x 6.4cm, free fluid in the abdomen and pelvis, and Ascites -Repeat CT A/P 06/05: abscess collection in the left lower abdomen has markedly decreased in size. the accordions drains have no output this morning. Repeat CT on 06/10 shows multiple abdominal and pelvic abscesses and pneumonia left base Plan: ?Patient completed antibiotic therapy, Meropenem, discontinued per ID Recommendations -percutaneous abscess drain catheter placed 06/02 ?disontinue with TPN 06/05 . Patient's diet is advanced to dysphagia 1 and have encouraged family members to bring home-cooked meals that patient would eat ?Continue dronabinol and mirtazapine as appetite stimulator -accordian drains removed on 06/05 -Patient is status post abdominal abscess drained on 06/12/2024 and the pelvic abscess is too small to be drained -Abscess culture from 05/25 and 06/02 grew edna albicans -[place] PRN for pain ordered -Patient completed 20 days of fluconazole and is now switched to micafungin started on 06/10- #Hospital aquired pneumonia #right pleural effusions -Pt has a productive cough, leukocytosis -Chest xray 06/15- Significant pneumonia right base, Small right pleural effusion plan: -Duonebs prn -mucolytics ordered -chest physiotherapy -continue zosyn (started 06/10- #New onset A-fib with RVR #NSTEMI type 2 -Likely secondary to shock in the setting of abdominal surgery -EKG findings consistent with A-fib -Was on Amiodarone 200 twice daily for new onset Afib, but as she was in AFib with RVR. Plan: ?Cardiology consulted, appreciate recs -Currently on oral amiodarone 200mg and metoprolol ? Resumed eliquis 5mg BID for anticoagulation #Protein Calorie malnutrition ?Patient noted to have poor appetite, is finishing less than 50% of her meals, was initially on TPN which is discontinued. -Added dronabinol and mirtazapine as appetite stimulator -Dysphagia 1 diet order, Pts family is encouraged to bring home cooked meals that pt mayb interested in #Acute tubular necrosis likely progressed to ESRD #Anuria -2/2 septic shock -Patient had small amount of urine production on 06/08 however this morning no urine yet -Baseline Cr appears to be 0.7 Plan: ?Patient underwent HD fluid removal and removed 2.1 L on 05/18 and 1.5 L on 05/19, 2L fluid removed 05/21, 2.5 L fluid removed on 05/22 , 3L fluid removed on 05/23, 3L fluid removed 05/25, 2L removed 05/26, 1 L removed 05/29, 1.5 L removed 05/30, 06/01 2L fluid removed. -permanent hemodialysis cath placed on 06/02/24 -Patient will require outpatient hemodialysis, dialysis chair secured by case management - Hemodialysis as per schedule of , Wed -Started on midodrine 10 mg BID as patient has difficulty tolerating dialysis, blood pressure drops. -Renally dose medications and avoid nephrotoxic agents -repeat labs in am -Nephrology following #Acute exacerbation of HFpEF # HFpEF EF 55 to 60% -echo 05/16 -estimated EF of 55 to 60%, stage I diastolic dysfunction noted, Moderate to severe posterior MAC -Pt presented with SOB and 2+ edema in LE -elevated BNP from 304 --> 1110 -HD in the setting of anuria -holding guideline directed medical therapy due to shock, will resume when able -Continue dialysis, as per nephrology recommendations #Acute Hypoxic Respiratory failure #fluid overload in the setting of ATN likely multifactorial -2/2 to pulmonary edema in the setting of volume overload 2/2 ATN due to shock leading to oligoanuria versus bibasilar pneumonia -Further complicated by bilateral lung atelectasis in the setting of recent abdominal surgery and sedatives use -Patient was intubated and on mechanical ventilation (05/15) and extubated 05/18/2024, currently saturating 95-97 % on 5 L NC -Duonebs prn -chest physiotherapy ordered -mucolytics ordered #Acute Upper GI bleed - stable -Most likely secondary to perforated gastric ulcer -Patient had a single episode of black tarry stool today-likely setting of recent abdominal surgery -Continue iv Protonix. -Will monitor for alarm signs of active bleeding with melena or hematochezia #Hx of Diabetes Mellitus type II - A1C 6.3 % 05/21/2024 - Hold home glipizide and januvia - Plan: Continue to monitor blood sugars - Insulin sliding scale ordered with lantus 12 units #Hyperlipidemia -Unclear if patient takes any medications as a statin is not on list of home meds #Primary Hypertension Holding on resuming home blood pressure medicines at this time #Acute blood loss anemia, stable 2/2 perforated ulcer- S/P surgical repair Hgb stable 9.6 Hct 28.3 patient received 2 units of pRBC 05/18 due to acutely drop in Hgb below 7. No signs of active bleeding. Plan: -Continue to monitor daily CBC. transfuse for hemoglobin less than 7. # Acute encephalopathy-resolved -Likely multifactorial secondary to sepsis versus metabolic versus neurologic versus medication -Patient is awake and alert and follows commands. Patient is able to respond to yes or no questions verbally #Shock - resolved #Hypoosmolar Hyponatremia, resolved Disposition: Telemetry DVT prophylaxis: Eliquis 5 mg twice daily anticoagulation for A-fib GI prophylaxis:Protonix 40 BID Diet: Dysphagia 1 diet CODE STATUS: Full Assessment and plan discussed with my senior resident physician Dr. Quiñonez and my Attending physician Dr. Anusha Rivera (PGY-1)- Internal medicine resident Attending Provider Attestation/Addendum Janel Gaffney, , attest that I was physically present for the donnelly portions of the service and evaluated the patient with the resident and I reviewed and discussed the case with the resident and agree with the resident's findings and plans of care as documented above Patient seen and evaluated this AM. She is resting comfortably. Per nursing, patient has no active complaints. continue with abx and antifungals. DC lasix as patient does not produce urine and is dialysis dependent. Continue to have patient's family to encourage PO intake and work with physical therapy.
--- NOTE | 2024-06-15 20:47 | PD.IMPROG ---
Documentation for date of: 06/15/24 Subjective Subjective Interval history: Poor p.o. intake is the issue Leukocytosis is trending downwards Encouraged the family to bring food from home of her choice hopefully she will have more calories Exam Vital Signs Temp Pulse Resp BP Pulse Ox O2 Del Method O2 Flow Rate 96.9 F 110 H 27 H 95/54 L 99 Nasal Cannula 1 06/15/24 16:00 06/15/24 19:40 06/15/24 19:40 06/15/24 16:00 06/15/24 19:40 06/15/24 16:00 06/15/24 19:40 FiO2 4 06/14/24 12:54 Constitutional Comments: Chronically ill Routine Respiratory Exam Comments: Scattered rhonchi at the bases Routine Abdominal Exam Comments: Positive bowel sounds Objective Labs 06/15/24 06:18 06/15/24 06:18 Labs: Laboratory Results - last 24 hr 06/12/24 06/15/24 14:35 06:18 WBC 18.6 H RBC 2.93 L Hgb 7.7 L Hct 24.9 L MCV 85 MCH 26.3 MCHC 30.9 L RDW Std Deviation 57.3 H Plt Count 290 D Neut % (Auto) 64 Lymph % (Auto) 20 [place] % (Auto) 9 Eos % (Auto) 3 Baso % (Auto) 1 Neut # (Auto) 11.9 H Lymph # (Auto) 3.8 [place] # (Auto) 1.7 H Eos # (Auto) 0.6 H Baso # (Auto) 0.1 Immature Gran # (Auto) 0.42 H Absolute Nucleated RBC 0.31 H Immature Gran % 2 H Nucleated RBC % 2 H Sodium 137 Potassium 4.3 D Chloride 94 L Carbon Dioxide 24.6 Anion Gap 18 H BUN 60 H Creatinine 5.7 H* D Estim Creat Clear Calc 8.1 L eGFR 8 L* BUN/Creatinine Ratio 11 L Glucose 108 H Calculated Osmolality 291 Calcium 9.7 Corrected Calcium 9.8 Phosphorus 7.2 H Magnesium 2.2 Total Bilirubin 0.8 AST 15 ALT < 7 L Alkaline Phosphatase 108 Total Protein 7.8 Albumin 3.9 Globulin 3.9 H Albumin/Globulin Ratio 1.0 L Random Vancomycin 22.4 Mycobacterial Culture See Sep Rpt Impressions Impression: # Perforated gastric ulcer status post surgical intervention # End-stage renal disease on hemodialysis # Poor p.o. intake Encouraged home foot ABG Interpretation ABG results: 05/13/24 05/15/24 05/15/24 08:29 15:28 16:03 ABG pH 7.39 7.05 L* D 7.17 L* D ABG pCO2 31 L 63 H D 45 D ABG pO2 78 L 38 L* D 84 D ABG HCO3 19 L 18 L 16 L ABG O2 Saturation 96 59 L 96 ABG Base Excess -5 L -12 L -11 L VBG pH VBG pCO2 VBG pO2 VBG Base Excess 05/16/24 05/17/24 05/18/24 04:38 04:03 04:20 ABG pH 7.28 L D 7.38 D 7.49 H D ABG pCO2 34 D 28 L 30 L ABG pO2 96 85 66 L ABG HCO3 16 L 17 L 23 ABG O2 Saturation 98 97 94 ABG Base Excess -10 L -8 L 0 VBG pH VBG pCO2 VBG pO2 VBG Base Excess 05/19/24 05/20/24 05/21/24 09:05 06:05 22:35 ABG pH 7.30 L D 7.41 D ABG pCO2 49 H D 42 ABG pO2 63 L 63 L ABG HCO3 24 27 H ABG O2 Saturation 91 93 ABG Base Excess -3 2 VBG pH 7.31 L VBG pCO2 50 VBG pO2 39 VBG Base Excess -2 05/26/24 05/29/24 04:17 12:28 ABG pH 7.38 7.42 ABG pCO2 42 35 ABG pO2 81 L 67 L ABG HCO3 25 23 ABG O2 Saturation 97 95 ABG Base Excess 0 -2 VBG pH VBG pCO2 VBG pO2 VBG Base Excess Assessment & Plan A&P Narrative abd abscess, stain neg. later grew c albicans so on flucon now here since 05/13.usual rx for most things is 7d. left on merrem thru weekend but collection in abd eventually grew a yeast, so ok for another 7d rx will see again if requested Time Spent With Patient Time: Total time spent is greater than 50% in coordination of care (as documented) at patient's floor/unit and/or counseling patient:
[2024-06-15] MEDS: MIRTAZAPINE 15 MG TABLET PO (21:27)
--- NOTE | 2024-06-15 23:51 | ESPR_ITS ---
Documentation for date of: 06/15/24 Subjective Subjective Interval history: Patient was seen in telemetry today at the bedside, not much respiratory distress noted today. She is resting Exam - Neurology Vital Signs Temp Pulse Resp BP Pulse Ox O2 Del Method O2 Flow Rate 97.7 F 93 18 95/63 99 Nasal Cannula 1 06/15/24 20:00 06/15/24 21:28 06/15/24 20:00 06/15/24 21:28 06/15/24 20:00 06/15/24 20:00 06/15/24 20:00 FiO2 4 06/14/24 12:54 Narrative Exam GENERAL APPEARANCE: Well-developed, obese built female in mild distress HEENT: Normocephalic, atraumatic, extraocular movements intact. Pupils: Equal reacting to light NECK: Supple, no JVD or bruits. CARDIOVASULAR: Heart: S1, S2 heard, irregular without S3-S4 or murmur no rubs or gallops. LUNGS/CHEST: Bilateral Rales and rhonchi heard. ABDOMEN: Soft, nontender, with normal bowel sounds. No pulsatile masses. No rebound, rigidity, or guarding. Normal inspection and palpation. EXTREMITIES: Significant edema in both upper and lower extremities. SKIN: Warm and dry without rashes. Normal inspection. MUSCULOSKELETAL: No cervical, thoracic, lumbar or midline bony tenderness. Normal inspection. NEURO: Resting. Brainstem function: Intact. Moves all 4 extremities but significantly weak all over, no signs of meningeal irritation noted. PSYCHIATRIC: Mood and affect: Limited Objective Labs 06/15/24 06:18 06/15/24 06:18 Labs: Laboratory Results - last 24 hr 06/12/24 06/15/24 14:35 06:18 WBC 18.6 H RBC 2.93 L Hgb 7.7 L Hct 24.9 L MCV 85 MCH 26.3 MCHC 30.9 L RDW Std Deviation 57.3 H Plt Count 290 D Neut % (Auto) 64 Lymph % (Auto) 20 [place] % (Auto) 9 Eos % (Auto) 3 Baso % (Auto) 1 Neut # (Auto) 11.9 H Lymph # (Auto) 3.8 [place] # (Auto) 1.7 H Eos # (Auto) 0.6 H Baso # (Auto) 0.1 Immature Gran # (Auto) 0.42 H Absolute Nucleated RBC 0.31 H Immature Gran % 2 H Nucleated RBC % 2 H Sodium 137 Potassium 4.3 D Chloride 94 L Carbon Dioxide 24.6 Anion Gap 18 H BUN 60 H Creatinine 5.7 H* D Estim Creat Clear Calc 8.1 L eGFR 8 L* BUN/Creatinine Ratio 11 L Glucose 108 H Calculated Osmolality 291 Calcium 9.7 Corrected Calcium 9.8 Phosphorus 7.2 H Magnesium 2.2 Total Bilirubin 0.8 AST 15 ALT < 7 L Alkaline Phosphatase 108 Total Protein 7.8 Albumin 3.9 Globulin 3.9 H Albumin/Globulin Ratio 1.0 L Random Vancomycin 22.4 Mycobacterial Culture See Sep Rpt ABG Interpretation ABG results: 05/13/24 05/15/24 05/15/24 08:29 15:28 16:03 ABG pH 7.39 7.05 L* D 7.17 L* D ABG pCO2 31 L 63 H D 45 D ABG pO2 78 L 38 L* D 84 D ABG HCO3 19 L 18 L 16 L ABG O2 Saturation 96 59 L 96 ABG Base Excess -5 L -12 L -11 L VBG pH VBG pCO2 VBG pO2 VBG Base Excess 05/16/24 05/17/24 05/18/24 04:38 04:03 04:20 ABG pH 7.28 L D 7.38 D 7.49 H D ABG pCO2 34 D 28 L 30 L ABG pO2 96 85 66 L ABG HCO3 16 L 17 L 23 ABG O2 Saturation 98 97 94 ABG Base Excess -10 L -8 L 0 VBG pH VBG pCO2 VBG pO2 VBG Base Excess 05/19/24 05/20/24 05/21/24 09:05 06:05 22:35 ABG pH 7.30 L D 7.41 D ABG pCO2 49 H D 42 ABG pO2 63 L 63 L ABG HCO3 24 27 H ABG O2 Saturation 91 93 ABG Base Excess -3 2 VBG pH 7.31 L VBG pCO2 50 VBG pO2 39 VBG Base Excess -2 05/26/24 05/29/24 04:17 12:28 ABG pH 7.38 7.42 ABG pCO2 42 35 ABG pO2 81 L 67 L ABG HCO3 25 23 ABG O2 Saturation 97 95 ABG Base Excess 0 -2 VBG pH VBG pCO2 VBG pO2 VBG Base Excess Assessment & Plan Additional Assessment & Plan Additional Plan: 69-year-old female with past medical history of CKD stage III, prediabetes, hypertension who was found unconscious in her room. As well as diarrhea and shortness of breath. Admitted for sepsis secondary to pneumonia and acute metabolic encephalopathy #Acute metabolic encephalopathy- currently in telemetry, significant improvement noted, close to baseline #Generalized weakness --Brain MRI with MRA shows significant stenoses in posterior cerebral artery, no acute infarction noted -Will continue with the current management as per primary team Continue with the passive range of motion exercises prevent contracture Physical therapy as she tolerates. Noted that she has been accepted to inpatient rehab. She will be transferred to [facility] after being cleared by surgery team with regards to the abscess sites
[2024-06-16] VITALS (28 sets, daily range): BP systolic 89–185; BP diastolic 46–84; PULSE 54–142; RESP 16–24; TEMP 36.1–36.6; O2SAT 93–100; BMI 36.0; BMI 12.0
[2024-06-16] MEDS: MIDODRINE 5 MG TABLET PO ×3 (05:32→21:16)
[2024-06-16] MEDS: guaiFENesin SYRUP 200 MG/10 ML UDC PO ×4 (05:32→21:17)
[2024-06-16] MEDS: PIPER/TAZO 2.25 GM 2.25 GM/50 ML BAG IV ×3 (05:33→21:17)
[2024-06-16 06:05] LABS: Basophils # (Auto) 0.1 Thou/mm3 (0.0-0.2); Basophils % (Auto) 1 % (0-2.5); Eosinophils # (Auto) 1.2 Thou/mm3 (0.0-0.5); Eosinophils % (Auto) 7 % (0-10); Hematocrit 23.9 % (36.0-46.0); Immature Granulocytes % (Auto) 2 % (0-0); Immature Granulocytes Auto 0.33 Thou/mm3 (0.00-0.00); Lymphocytes # (Auto) 3.1 Thou/mm3 (1.0-4.8); Lymphocytes % (Auto) 19 % (10-50); Mean Corpuscular HGB Conc 31.8 g/dl (31.0-37.0); Mean Corpuscular Hemoglobin 26.6 pg (25.0-35.0); Mean Corpuscular Volume 84 fL (80-100); Monocytes # (Auto) 1.4 Thou/mm3 (0.0-0.8); Monocytes % (Auto) 9 % (0-12); Neutrophils # (Auto) 9.9 Thou/mm3 (1.8-7.7); Neutrophils % (Auto) 62 % (37-80); Nucleated Red Blood Cell # 0.25 Thou/mm3 (0.00-0.00); Nucleated Red Blood Cell % 2 /100 WBC (0); Platelet Count 310 Thou/mm3 (140-440); RDW Standard Deviation 57.4 fL (36.4-46.3); Red Blood Count 2.86 Miln/mm3 (4.00-5.20); White Blood Count 15.9 Thou/mm3 (3.6-11.0)
[2024-06-16 06:06] LABS: Hemoglobin 7.6 g/dL (12.0-16.0)
[2024-06-16 06:49] LABS: Alanine Aminotransferase < 7 U/L (10-49); Albumin, Serum 3.6 gm/dL (3.4-4.8); Albumin/Globulin Ratio 0.9 (1.2-2.2); Alkaline Phosphatase 103 U/L (46-116); Anion Gap 18 (7-16); Aspartate Amino Transferase 18 U/L (0-34); BUN/Creatinine Ratio 11 Ratio (12-20); Bilirubin,Total 0.7 mg/dL (0.3-1.2); Blood Urea Nitrogen 71 mg/dL (9-23); Calcium 9.6 mg/dL (8.3-10.6); Calcium (Corrected) 9.9 mg/dL (8.5-10.1); Carbon Dioxide 23.1 mMol/L (20.0-31.0); Chloride 95 mMol/L (98-107); Creatinine (Component) 6.6 mg/dL (0.6-1.3); Globulin 3.8 gm/dL (2.3-3.5); Glucose 80 mg/dL (74-106); Magnesium 2.3 mg/dL (1.6-2.6); Osmolality,Calculated 291 (275-295); Potassium 4.4 mMol/L (3.4-5.1); Sodium 136 mMol/L (136-145); Total Protein 7.4 gm/dL (5.7-8.2); eGFR 6 See Note
--- NOTE | 2024-06-16 08:05 | PD.RESPRO ---
Documentation for date of: 06/16/24 Subjective Subjective Interval history: 06/11/2024: Patient examined at bedside today. Telemetry reviewed and patient seems to be in 120s and 130s still in A-fib. Patient reports that she still experiencing some pain in her abdomen. Patient is likely going in higher heart rate because of uncontrolled pain, drainage to be done tomorrow. Patient's white count is 29 today, was started on Zosyn and Vanco. Patient's BUN/creatinine 53 and 5.6 respectively, will do dialysis tomorrow, dialysis yesterday at 1.5 L removed. Will continue to to try to control patient's pain and patient will need drainage with a goal of procedure to be tomorrow. Will add metoprolol as needed if patient's heart rate goes to the 150s. 06/12/2024: Pt examined at bedside today. Telemetry reviewed and pt appears to still be in fib, rate controlled in 120s. Pt reports she is still experiencing some abdominal pain, however it has been relatively controlled. I adjusted her positioning in her bed. She is agreeable with continuing abscess drainage. Her WBC count is going down, 23 today. BUN/Cr 74 and 7.0 respectively, potassium 5.1, Mg 2.4, dialysis should be done today, will touch base with nephrology team. Will continue current medicines with Amio, metoprolol, hep drip to be stopped before procedure. 06/13/2024: Patient examined bedside today. Telemetry reviewed and patient still appears to be in A-fib, rate in the 90s to 100. Patient says she is doing okay today, she is not experiencing any abdominal pain at this time. Hemoglobin around 8 today, BUN/creatinine of 84 and 7.5 respectively. Will continue with Amio and metoprolol 50 XL. Blood pressure little soft today 94/74. Patient still on heparin drip, will transition to Eliquis at some point. 06/14/2024: Patient examined at bedside. Telemetry reviewed and patient still appears to be in A-fib, rate controlled in the 90s to 100s. Patient says she is doing better, improved pain. She is aware that she is going to get dialysis today. Potassium of 6 today hemoglobin around 8, BUN and creatinine of 90 and 8.3 respectively. Patient got dialysis had 1.9 L removed and is improving. Will continue with current management of metoprolol and Amio. 06/15/2024: Patient examined at bedside. Telemetry reviewed and patient still appears to be in A-fib, however rate controlled 90s. Patient says she is doing better and her pain is not controlled. Patient's magnesium 2.2 phosphorus 7.2 potassium 4.3. Patient's hemoglobin at 7.7. Dialysis tomorrow. 06/16/2024: Pt examined at bedside dialysis today. Telemetry reviewed and patient still appears to be in A-fib rate 100s, max rate 120. Patient reports she is doing better and is in much pain. Patient's phosphorus this morning was 8, magnesium 2.3, potassium 4.4. Patient is currently getting dialysis. Patient had an x-ray done yesterday which showed significant right base pneumonia. Patient is still continue with metoprolol and Eliquis 5 mg twice daily. Exam Vital Signs Temp Pulse Resp BP Pulse Ox O2 Del Method O2 Flow Rate 97.7 F 103 H 24 H 93/66 99 Nasal Cannula 1 06/16/24 04:00 06/16/24 05:32 06/16/24 04:00 06/16/24 05:32 06/16/24 04:00 06/16/24 04:00 06/16/24 04:00 FiO2 4 06/16/24 00:00 Narrative Exam General: AAOx3, obese female, patient in dialysis bed HEENT: Moist mucous membranes, conjunctiva clear, EOMI, PERRLA, Cardiovascular: S1, S2, radial pulses +2 bilat, irregularly irregular rhythm, tachycardic Pulmonary: Wheezing heard in lungs bilat, congestion and cough GI: Bandages present, no ascites, minimal pain to palpation of the abdomen Extremities: SCDs present, pitting edema in LE +1 bilat Neuro: AAOx3, no focal motor or sensory deficits in the UE or LE bilat Psych: Cooperative. Objective Labs 06/16/24 05:08 06/16/24 05:08 Labs: Laboratory Results - last 24 hr 06/15/24 06/16/24 06:18 05:08 WBC 18.6 H 15.9 H RBC 2.93 L 2.86 L Hgb 7.7 L 7.6 L Hct 24.9 L 23.9 L MCV 85 84 MCH 26.3 26.6 MCHC 30.9 L 31.8 RDW Std Deviation 57.3 H 57.4 H Plt Count 290 D 310 Neut % (Auto) 64 62 Lymph % (Auto) 20 19 [place] % (Auto) 9 9 Eos % (Auto) 3 7 Baso % (Auto) 1 1 Neut # (Auto) 11.9 H 9.9 H Lymph # (Auto) 3.8 3.1 [place] # (Auto) 1.7 H 1.4 H Eos # (Auto) 0.6 H 1.2 H Baso # (Auto) 0.1 0.1 Immature Gran # (Auto) 0.42 H 0.33 H Absolute Nucleated RBC 0.31 H 0.25 H Immature Gran % 2 H 2 H Nucleated RBC % 2 H 2 H Sodium 136 Potassium 4.4 Chloride 95 L Carbon Dioxide 23.1 Anion Gap 18 H BUN 71 H Creatinine 6.6 H* D Estim Creat Clear Calc 7.0 L eGFR 6 L* BUN/Creatinine Ratio 11 L Glucose 80 Calculated Osmolality 291 Calcium 9.6 Corrected Calcium 9.9 Phosphorus 8.0 H Magnesium 2.3 Total Bilirubin 0.7 AST 18 ALT < 7 L Alkaline Phosphatase 103 Total Protein 7.4 Albumin 3.6 Globulin 3.8 H Albumin/Globulin Ratio 0.9 L ABG Interpretation ABG results: 05/13/24 05/15/24 05/15/24 08:29 15:28 16:03 ABG pH 7.39 7.05 L* D 7.17 L* D ABG pCO2 31 L 63 H D 45 D ABG pO2 78 L 38 L* D 84 D ABG HCO3 19 L 18 L 16 L ABG O2 Saturation 96 59 L 96 ABG Base Excess -5 L -12 L -11 L VBG pH VBG pCO2 VBG pO2 VBG Base Excess 05/16/24 05/17/24 05/18/24 04:38 04:03 04:20 ABG pH 7.28 L D 7.38 D 7.49 H D ABG pCO2 34 D 28 L 30 L ABG pO2 96 85 66 L ABG HCO3 16 L 17 L 23 ABG O2 Saturation 98 97 94 ABG Base Excess -10 L -8 L 0 VBG pH VBG pCO2 VBG pO2 VBG Base Excess 05/19/24 05/20/24 05/21/24 09:05 06:05 22:35 ABG pH 7.30 L D 7.41 D ABG pCO2 49 H D 42 ABG pO2 63 L 63 L ABG HCO3 24 27 H ABG O2 Saturation 91 93 ABG Base Excess -3 2 VBG pH 7.31 L VBG pCO2 50 VBG pO2 39 VBG Base Excess -2 05/26/24 05/29/24 04:17 12:28 ABG pH 7.38 7.42 ABG pCO2 42 35 ABG pO2 81 L 67 L ABG HCO3 25 23 ABG O2 Saturation 97 95 ABG Base Excess 0 -2 VBG pH VBG pCO2 VBG pO2 VBG Base Excess Quality Measures Quality Measures none Advance care planning discussed with:: patient Assessment & Plan Assessment Current Active Medications: Generic Name Dose Route Start Last Admin Trade Name Freq PRN Reason Stop Dose Admin Acetaminophen 650 mg 06/09/24 14:11 06/15/24 01:03 Acetaminophen 325 Mg Tablet PO 07/09/24 14:10 650 mg Q6HR PRN Administration Fever >101 and pain 1-3 Albuterol/Ipratropium 3 ml 05/27/24 18:08 06/14/24 23:56 Albuterol/Ipratropium (Duoneb) Rt Jimena 3 Ml Nebu INH 06/26/24 18:07 3 ml Q2HR PRN Administration SHORTNESS OF BREATH OR WHEEZE Amiodarone HCl 200 mg 05/29/24 15:00 06/15/24 21:28 Amiodarone Hcl 200 Mg Tablet PO 06/28/24 14:59 200 mg BID ANGELICA Administration Apixaban 5 mg 06/13/24 21:00 06/15/24 21:27 Apixaban 2.5 Mg Tablet PO 07/13/24 20:59 5 mg BID ANGELICA Administration Benzocaine 1 lozenge 05/31/24 11:53 06/09/24 23:07 Benzocaine/Menthol 1 Lozenge PO 06/30/24 11:52 1 lozenge Q4HR PRN Administration Sore throat Dextrose 25 ml 05/24/24 15:43 Dextrose 50%-Water Inj 50 Ml Syringe IV 06/23/24 15:42 Q15MIN PRN BG 50-70 responsive npo pt Dextrose 50 ml 05/24/24 15:43 Dextrose 50%-Water Inj 50 Ml Syringe IV 06/23/24 15:42 Q15MIN PRN BG <50 OR BG <70 & pt unresponsive Dronabinol 5 mg 06/07/24 10:40 06/15/24 17:18 Dronabinol 2.5 Mg Capsule PO 07/07/24 10:39 5 mg BIDAC ANGELICA Administration Glucagon 1 mg 05/24/24 15:43 Glucagon Inj 1 Mg Vial IM Q15MIN PRN BG <70, and no IV access Guaifenesin 200 mg 06/10/24 08:30 06/16/24 05:32 Guaifenesin Syrup 200 Mg/10 Ml Udc PO 07/10/24 08:29 200 mg QID ANGELICA Administration Protocol Heparin Sodium (Porcine) 3,500 unit 06/07/24 18:06 06/14/24 12:37 Heparin Sod Inj 1000 Unit/Ml Vial 10 Ml INDWELLCAT 06/21/24 18:05 3,500 unit PRN PRN Administration DIALYSIS Piperacillin/Tazobactam/Dextrose 2.25 gm in 50 mls @ 100 mls/hr 06/10/24 12:10 06/16/24 05:33 Zosyn IV 06/17/24 12:09 100 mls/hr Q8HR ANGELICA Administration Micafungin Sodium 100 mg/ 100 mls @ 100 mls/hr 06/10/24 13:56 06/15/24 09:21 Sodium Chloride IV 06/25/24 13:55 100 mls/hr QDAY ANGELICA Administration Albumin Human 25 gm in 100 mls @ 100 mls/hr 06/12/24 16:40 06/14/24 10:19 Albuminar-25 Ivpb IV 100 mls/hr PRN PRN Administration DIALYSIS Insulin Glargine 12 unit 05/25/24 09:00 06/15/24 09:08 Insulin Glargine (Lantus) 5 Unit/0.05 Ml (Per 5 Units) SC 06/24/24 08:59 Not Given QDAY ANGELICA Insulin Human Lispro 0 unit 06/16/24 07:30 Insulin Lispro (Admelog) 1 Unit/0.01 Ml Unit SC 07/16/24 07:29 AC ANGELICA Protocol Lidocaine 1 patch 05/30/24 09:16 06/01/24 19:01 Lidocaine 5% 1 Patch TOP 06/29/24 09:15 1 patch DAILY PRN Administration BACK PAIN Metoprolol Succinate 50 mg 06/12/24 15:36 06/15/24 09:03 Metoprolol Succinate Xl 25 Mg Tabcr PO 07/09/24 21:04 50 mg QDAY ANGELICA Administration Metoprolol Tartrate 50 mg 06/14/24 08:37 Metoprolol Tartrate 25 Mg Tablet PO 07/12/24 08:59 QDAY PRN Tachycardia above 150 Midodrine 5 mg 06/12/24 22:00 06/16/24 05:32 Midodrine 5 Mg Tablet PO 07/12/24 21:59 5 mg TID ANGELICA Administration Mirtazapine 15 mg 06/13/24 21:00 06/15/24 21:27 Mirtazapine 15 Mg Tablet PO 07/13/24 20:59 15 mg HS ANGELICA Administration Pharmacy Consult 1 each 06/10/24 12:15 Vancomycin Pharmacy To Dose 1 Each Each IV 07/10/24 12:14 QDAY PRN CONSULT Polyethylene Glycol 17 gm 06/12/24 15:36 Polyethylene Glycol 17 Gm Packet PO 07/09/24 10:44 BID PRN constipation Protocol Sennosides 1 tab 06/09/24 10:45 06/15/24 09:03 Senna Tablet PO 07/09/24 10:44 1 tab QDAY ANGELICA Administration Protocol Sodium Chloride 3 ml 05/24/24 19:00 Sodium Chloride Rt Jimena 0.9% 3 Ml Nebu INH 06/23/24 18:59 PRN PRN SOLN Timolol Maleate 1 drop 05/28/24 18:15 06/15/24 09:30 Timolol Op Jimena 0.5% 5 Ml Btl BOTH EYES 06/27/24 18:14 1 drop DAILY ANGELICA Administration Plan Assessment Ms. Castellanos is a 69-year-old female with past medical history significant for hypertension, diabetes and history of gastric ulcers who presented to the ED on 05/13/2024 after she was found unconscious on the floor. Per chart reviewing prior to this unconsciousness patient was having abdominal pain and generalized weakness with diarrhea and shortness of breath for 2 days. Patient was admitted to the hospital for treatment and management of sepsis secondary to pneumonia. Patient was given 1 L normal saline and started on ceftriaxone and azithromycin. patient underwent ex lap surgery for perforated gastric ulcer. Patient remained intubated postop and was upgraded to the ICU. Patient continues to be on dialysis after downgrade, has BALAJI and accordion drain intact, completed bowel rest, was started on dysphagia 1 diet, surgery following case closely, will continue to monitor. Patient continue with dialysis, white count coming down, may want to reconsider adjusting antibiotics. Follow-up with ID recommendations. #New onset A-fib with RVR, improving, rate controlled New onset of Afib, likely related to septic shock requiring pressor support and increased demand from perforated ulcer complicated by abdominal abscesses Pt appears to still be in A-fib, rate controlled, 90s to mid 100s Previous EKG shows a-fib w/RVR CHADVASC: 5 Pts 7.2 % stroke risk per year HAS-BLED score: 3, high risk of major bleeding Patient continues to be rate controlled, rate in the 90s Plan: ?Continue with Oral Amio 200 mg BID ?Continue with metoprolol XL 50 ?Continue with Eliquis 5 mg twice daily #Acute exacerbation of HFpEF #HFpEF EF 55 to 60% #History of primary hypertension -Echo 05/16/2024 -estimated EF of 55 to 60%, stage I diastolic dysfunction noted, Moderate to severe posterior MAC Pt has new onset of ESRD requiring HD, requiring midodrine 10 mg QID to tolerate HD Not resuming home amlodipine at this time due to patient being A-fib and blood pressure eventually be controlled with beta-christian We recommend to give midodrine 5 to 10 mg 15 to 30 minutes before dialysis, can give additional 2.5 to 5 mg after dialysis as long as 3 hours after predialysis dose Half-life of midodrine is 9 to 10 hours and patient with CKD something to keep in mind Patient to continue with dialysis as electrolytes are abnormal including phosphorus. Plan: ?Resume GDMT as able, metoprolol on board right now, as above ?Fluid restriction ?Daily weights ?Strict ins and outs ?Keep potassium and magnesium above 4 and 2 respectively #Hx of Diabetes Mellitus type II Most recent A1c 05/21/2024: 6.2 Plan: Management by primary team #Perforated gastric ulcer #Pneumoperitoneum #Peritonitis secondary to perforated gastric ulcer #Abdominal Abscess, s/p percutaneous drainage x3 Patient found to have tender abdomen, rigidity in the epigastrium, chest x-ray showed elevation of hemidiaphragm, CT abdomen showed pneumoperitoneum, concern for perforated viscus, general surgeon Dr. Santana was consulted for emergency laparotomy and possible repair of perforated gastric ulcer. Repeat CT abd/pel on 05/20 revealed Pneumoperitoneum, orogastric tube in the stomach, mild free fluid adjacent to the stomach and anterior to the pancreas. s/p Exploratory laparotomy & repair of perforated gastric ulcer - 05/15. 06/01/24: Overnight there was concern of wound dehiscence. Discussed with general surgeon per surgery superior aspect of the wound was dehiscent after removal of aixa.Surgery removal of BALAJI drain on 06/01. Repeat CT on 06/01- More pronounced fluid collection in the left abdomen below the spleen, 8.9 x 6.4cm, free fluid in the abdomen and pelvis, and Ascites -Abscess culture from 05/25 grew edna albicans ?Repeat CT abdomen pelvis shows abscess collection lower left abdomen has markedly decreased in size and the accordion drains have no output this morning Plan: Management by primary hospitalist team #Acute blood loss anemia, stable Likely related to perforated ulcer Hgb stable ~7.7 Plan: Management by primary hospitalist team #Acute tubular necrosis, requiring hemodialysis #Acute Hypoxic Respiratory failure #Acute Upper GI bleed - stable #Hyperlipidemia #Acute blood loss anemia, stable #Acute encephalopathy-resolved #Septic Shock - resolved #Hypoosmolar Hyponatremia, resolved Above managed by primary hospitalist team Patient seen and care discussed with my attending physician, Dr. Susan Mathews, PGY-1 Attending Provider Attestation/Addendum I have personally seen and examined the patient separately on the above date of service and discussed the plan of care with the resident. I reviewed the resident Dr. Hernandes consultation progress note and agree with the resident findings and plan in the note above and have also edited the documentation to reflect my findings and plan. Jalen Davis M.D. Interventional Cardiology
--- NOTE | 2024-06-16 08:53 | PD.RESPRO ---
Documentation for date of: 06/16/24 Subjective Subjective Interval history: Mr. Castellanos is a [id number] with past medical history of prediabetes, CKD, hypertension, history of ulcers who was admitted to [facility] for sepsis secondary to pneumonia and acute metabolic encephalopathy. Patient was BIBA to the ED after being found unconscious on the floor. According to the son on admission patient's daughter found the patient at 3 AM passed out on the floor and unresponsive. Family is unaware along the patient was on the floor. 2 days ago patient started to develop abdominal pain and weakness all over her body associated with some diarrhea and shortness of breath. Patient's abdominal pain comes and goes from right side to left side of the abdomen. ED course patient was hypertensive tachycardic tachypneic and was saturating 92% on 5 L nasal cannula ED labs significant for WBCs 24.3, bicarb 19.6, glucose 259, lactic acid 2.2, BNP 304, troponin 0.09. 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, colonic diverticulosis, Cervical spine CT showed 3 mm radiolucency in C3 vertebral body Chest CTA showed mild aneurysmal dilatation ascending thoracic aorta AP dimension 4.3 cm and pulmonary artery hypertension with moderate vascular congestion Face CT shows no acute facial fracture, Lumbar spine CT shows no acute lumbar fracture severe acquired spinal stenosis L4-L5, Thoracic spine CT showed no acute fracture Brain MRI with MRA showed equally focal restricted diffusion brainstem medullary level significant stenosis of right P1 P2 segment posterior cerebral artery Postadmission, cardiology was consulted on admission because of elevated troponins, suspicion of NSTEMI type II, patient has acute decompensated heart failure per cardiology evaluation, neurology consulted because of patient's acute metabolic encephalopathy and GI was consulted for suspicion of GI bleed. Eventually on 05/15 rapid response was called for worsening chest pain, patient's map was consistently in 70s, was tachycardic tachypneic. CT angiogram showed pneumoperitoneum multiple air droplets adjacent to and within wall of stomach with suspicion of gastric perforation. General surgery was consulted for emergency surgery and patient had exploratory laparotomy with repair of perforated gastric ulcer with an omental patch. Patient was upgraded to ICU postop for further management patient currently on Levophed and vasopressor due to distributive shock, currently sedated and intubated on mechanical ventilation. Nephrology consulted due to concern of ADILSON. 06/10/2024 patient currently seen in telemetry. Patient complaining of abdominal pain. Scheduled for dialysis today. Although did have some trouble with catheter before. tPA was placed. Catheter could not be exchanged yesterday. Will monitor catheter function closely. Unfortunately IR not available until Wednesday. 06/11/2024 patient currently seen in telemetry. Sick looking. Did receive dialysis yesterday. Still having some abdominal discomfort.WBC 28.7, hemoglobin 7.8, platelets 261. Sodium 134, potassium 4.8, BUN 53, creatinine 5.6, magnesium 2.4, LFTs normal, albumin 4.0 chest x-ray showed pneumonia/mild heart failure. CT abdomen repeat showed multiple abdominal and pelvic abscesses. Prognosis remains guarded. 06/12/2024 patient was seen and examined at bedside. Patient appears to be fluid overloaded, saturating 97% on 2 L of oxygen, blood pressure of 93/67, pulse rate of 97. her WBC downtrended from 28.7-22.9, CT scan was repeated on the and it showed multiple intra-abdominal abscesses. Hemoglobin stable at 8.1, serum sodium 134, calcium 5.1, BUN of 74 uptrending, serum creatinine increased from 5.67, glucose 99, calcium 9.5, phosphate 8.1. Urine output documented as 0. Today patient is scheduled for dialysis. 06/13/2024 Patient was seen and examined at bedside. No overnight incidents patient saturating 94 on 2 L of oxygen. Patient still require daily dialysis. Treatment team repeated CT scan showed multiple abscesses that believe that most likely secondary to fungal infection, there are pending Dr Horn's recommendations to escalate treatment. Today her WBCs 21.3 yesterday it was 22.9, hemoglobin stable at 7.7, sodium 134, potassium 5.2, chloride 95, serum BUN is 83 and creatinine 7.5. Patient seems to be overloaded next dialysis is going to be tomorrow as per her schedule. 06/14/2024, patient was seen and examined at bedside. Patient today seems to be a little bit more in distress.Her vital signs shows blood pressure of 133/88, pulse rate of 65, she is saturating 96 on 2 L of oxygen. Hemoglobin stable at 7.7, today her potassium is 6.0 patient will undergo dialysis today. Serum creatinine 8.3, BUN of 98. Primary team started the patient on doxepin and hope to improve her appetite, at this time patient is on micafungin. 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 06/15/2024, patient was seen and examined at bedside. Patient denied any new symptoms today. She is saturating 96 on 2 L of oxygen. She appears to be mildly overloaded. Primary team continuing the patient on micafungin and waiting for the fungal culture results. Dialysis tomorrow 06/16/2024, patient was seen examined at bedside. Patient denied any new symptoms. Vitally patient is stable she is still saturating 99% on 1 L of oxygen. WBC continues to downtrend, at this time patient on micafungin by the primary team pending final fungal culture and sensitivity results. Patient is scheduled for dialysis today. Blood pressure is soft however we will keep close monitoring. Exam Vital Signs Temp Pulse Resp BP Pulse Ox O2 Del Method O2 Flow Rate 97.8 F 99 18 99/66 99 Nasal Cannula 2 06/16/24 08:04 06/16/24 08:31 06/16/24 08:04 06/16/24 08:31 06/16/24 08:04 06/16/24 04:00 06/16/24 08:04 FiO2 4 06/16/24 00:00 Narrative Exam PatientGEN: AOx3, flat mood and affect, in semi-sitting position HEENT: NC/AC, oral mucosa moist, neck supple CVS: RRR, S1-S2 present, no murmurs appreciated RESP: Pronounced wheezing on the right side more than the left side, fine crepitations bilaterally more on the basal area. GI: soft, non distended, non tender, NBS MSK: able to move all 4 limbs however significant generalized weakness, +1 lower limb SKIN: warm and dry CHIEF NUCLE[employer] MEDICINE TECHNOLOGIST: CN II-XII and Sensation grossly intact. Objective Labs 06/17/24 04:20 06/17/24 04:20 Labs: Laboratory Results - last 24 hr 06/15/24 06/16/24 06:18 05:08 WBC 18.6 H 15.9 H RBC 2.93 L 2.86 L Hgb 7.7 L 7.6 L Hct 24.9 L 23.9 L MCV 85 84 MCH 26.3 26.6 MCHC 30.9 L 31.8 RDW Std Deviation 57.3 H 57.4 H Plt Count 290 D 310 Neut % (Auto) 64 62 Lymph % (Auto) 20 19 [place]well % (Auto) 9 9 Eos % (Auto) 3 7 Baso % (Auto) 1 1 Neut # (Auto) 11.9 H 9.9 H Lymph # (Auto) 3.8 3.1 Caswell # (Auto) 1.7 H 1.4 H Eos # (Auto) 0.6 H 1.2 H Baso # (Auto) 0.1 0.1 Immature Gran # (Auto) 0.42 H 0.33 H Absolute Nucleated RBC 0.31 H 0.25 H Immature Gran % 2 H 2 H Nucleated RBC % 2 H 2 H Sodium 136 Potassium 4.4 Chloride 95 L Carbon Dioxide 23.1 Anion Gap 18 H BUN 71 H Creatinine 6.6 H* D Estim Creat Clear Calc 7.0 L eGFR 6 L* BUN/Creatinine Ratio 11 L Glucose 80 Calculated Osmolality 291 Calcium 9.6 Corrected Calcium 9.9 Phosphorus 8.0 H Magnesium 2.3 Total Bilirubin 0.7 AST 18 ALT < 7 L Alkaline Phosphatase 103 Total Protein 7.4 Albumin 3.6 Globulin 3.8 H Albumin/Globulin Ratio 0.9 L ABG Interpretation ABG results: 05/13/24 05/15/24 05/15/24 08:29 15:28 16:03 ABG pH 7.39 7.05 L* D 7.17 L* D ABG pCO2 31 L 63 H D 45 D ABG pO2 78 L 38 L* D 84 D ABG HCO3 19 L 18 L 16 L ABG O2 Saturation 96 59 L 96 ABG Base Excess -5 L -12 L -11 L VBG pH VBG pCO2 VBG pO2 VBG Base Excess 05/16/24 05/17/24 05/18/24 04:38 04:03 04:20 ABG pH 7.28 L D 7.38 D 7.49 H D ABG pCO2 34 D 28 L 30 L ABG pO2 96 85 66 L ABG HCO3 16 L 17 L 23 ABG O2 Saturation 98 97 94 ABG Base Excess -10 L -8 L 0 VBG pH VBG pCO2 VBG pO2 VBG Base Excess 05/19/24 05/20/2424 09:05 06:05 22:35 ABG pH 7.30 L D 7.41 D ABG pCO2 49 H D 42 ABG pO2 63 L 63 L ABG HCO3 24 27 H ABG O2 Saturation 91 93 ABG Base Excess -3 2 VBG pH 7.31 L VBG pCO2 50 VBG pO2 39 VBG Base Excess -2 05/26/24 05/29/24 04:17 12:28 ABG pH 7.38 7.42 ABG pCO2 42 35 ABG pO2 81 L 67 L ABG HCO3 25 23 ABG O2 Saturation 97 95 ABG Base Excess 0 -2 VBG pH VBG pCO2 VBG pO2 VBG Base Excess Quality Measures Quality Measures none Advance care planning discussed with:: patient Assessment & Plan Assessment Current Active Medications: Generic Name Dose Route Start Last Admin Trade Name Freq PRN Reason Stop Dose Admin Acetaminophen 650 mg 06/09/24 14:11 06/15/24 01:03 Acetaminophen 325 Mg Tablet PO 07/09/24 14:10 650 mg Q6HR PRN Administration Fever >101 and pain 1-3 Albuterol/Ipratropium 3 ml 05/27/24 18:08 06/14/24 23:56 Albuterol/Ipratropium (Duoneb) Rt Jimena 3 Ml Nebu INH 06/26/24 18:07 3 ml Q2HR PRN Administration SHORTNESS OF BREATH OR WHEEZE Amiodarone HCl 200 mg 05/29/24 15:00 06/15/24 21:28 Amiodarone Hcl 200 Mg Tablet PO 06/28/24 14:59 200 mg BID ANGELICA Administration Apixaban 5 mg 06/13/24 21:00 06/15/24 21:27 Apixaban 2.5 Mg Tablet PO 07/13/24 20:59 5 mg BID ANGELICA Administration Benzocaine 1 lozenge 05/31/24 11:53 06/09/24 23:07 Benzocaine/Menthol 1 Lozenge PO 06/30/24 11:52 1 lozenge Q4HR PRN Administration Sore throat Dextrose 25 ml 05/24/24 15:43 Dextrose 50%-Water Inj 50 Ml Syringe IV 06/23/24 15:42 Q15MIN PRN BG 50-70 responsive npo pt Dextrose 50 ml 12/25/24 15:43 Dextrose 50%-Water Inj 50 Ml Syringe IV 06/23/24 15:42 Q15MIN PRN BG <50 OR BG <70 & pt unresponsive Dronabinol 5 mg 06/07/24 10:40 06/15/24 17:18 Dronabinol 2.5 Mg Capsule PO 07/07/24 10:39 5 mg BIDAC ANGELICA Administration Glucagon 1 mg 05/24/24 15:43 Glucagon Inj 1 Mg Vial IM Q15MIN PRN BG <70, and no IV access Guaifenesin 200 mg 06/10/24 08:30 06/16/24 05:32 Guaifenesin Syrup 200 Mg/10 Ml Udc PO 07/10/24 08:29 200 mg QID ANGELICA Administration Protocol Heparin Sodium (Porcine) 3,500 unit 06/07/24 18:06 06/14/24 12:37 Heparin Sod Inj 1000 Unit/Ml Vial 10 Ml INDWELLCAT 06/21/24 18:05 3,500 unit PRN PRN Administration DIALYSIS Heparin Sodium (Porcine) 3,500 unit 06/16/24 08:22 Heparin Sod Inj 1000 Unit/Ml Vial 10 Ml IV 06/30/24 08:21 X1 PRN DIALYSIS Piperacillin/Tazobactam/Dextrose 2.25 gm in 50 mls @ 100 mls/hr 06/10/24 12:10 06/16/24 05:33 Zosyn IV 06/17/24 12:09 100 mls/hr Q8HR ANGELICA Administration Micafungin Sodium 100 mg/ 100 mls @ 100 mls/hr 06/10/24 13:56 06/15/24 09:21 Sodium Chloride IV 06/25/24 13:55 100 mls/hr QDAY ANGELICA Administration Albumin Human 25 gm in 100 mls @ 100 mls/hr 06/12/24 16:40 06/14/24 10:19 Albuminar-25 Ivpb IV 100 mls/hr PRN PRN Administration DIALYSIS Insulin Glargine 12 unit 05/25/24 09:00 06/15/24 09:08 Insulin Glargine (Lantus) 5 Unit/0.05 Ml (Per 5 Units) SC 06/24/24 08:59 Not Given QDAY ANGELICA Insulin Human Lispro 0 unit 06/16/24 07:30 Insulin Lispro (Admelog) 1 Unit/0.01 Ml Unit SC 07/16/24 07:29 AC ANGELICA Protocol Lidocaine 1 patch 05/30/24 09:16 06/01/24 19:01 Lidocaine 5% 1 Patch TOP 06/29/24 09:15 1 patch DAILY PRN Administration BACK PAIN Metoprolol Succinate 50 mg 06/12/24 15:36 06/15/24 09:03 Metoprolol Succinate Xl 25 Mg Tabcr PO 07/09/24 21:04 50 mg QDAY ANGELICA Administration Metoprolol Tartrate 50 mg 06/14/24 08:37 Metoprolol Tartrate 25 Mg Tablet PO 07/12/24 08:59 QDAY PRN Tachycardia above 150 Midodrine 5 mg 06/12/24 22:00 06/16/24 05:32 Midodrine 5 Mg Tablet PO 07/12/24 21:59 5 mg TID ANGELICA Administration Mirtazapine 15 mg 06/13/24 21:00 06/15/24 21:27 Mirtazapine 15 Mg Tablet PO 07/13/24 20:59 15 mg HS ANGELICA Administration Pharmacy Consult 1 each 06/10/24 12:15 Vancomycin Pharmacy To Dose 1 Each Each IV 07/10/24 12:14 QDAY PRN CONSULT Polyethylene Glycol 17 gm 06/12/24 15:36 Polyethylene Glycol 17 Gm Packet PO 07/09/24 10:44 BID PRN constipation Protocol Sennosides 1 tab 06/09/24 10:45 06/15/24 09:03 Senna Tablet PO 07/09/24 10:44 1 tab QDAY ANGELICA Administration Protocol Sodium Chloride 3 ml 05/24/24 19:00 Sodium Chloride Rt Jimena 0.9% 3 Ml Nebu INH 06/23/24 18:59 PRN PRN SOLN Timolol Maleate 1 drop 05/28/24 18:15 06/15/24 09:30 Timolol Op Jimena 0.5% 5 Ml Btl BOTH EYES 06/27/24 18:14 1 drop DAILY ANGELICA Administration Plan Mr. Castellanos is a [id number] with past medical history of prediabetes, CKD, hypertension, history of ulcers who was admitted to [facility] for sepsis secondary to pneumonia and acute metabolic encephalopathy. Patient is currently sedated intubated in ICU status post exploratory laparotomy with repair of perforated gastric ulcer with an omental patch. Nephrology consulted for acute kidney injury. Assessment and plan #Acute kidney injury on dialysis M/W/F #Acute Tubular Necrosis 2/2 shock # Fluid overload Patient currently seems to be in ATN probably ischemic from fluctuations in blood pressure and underlying shock- started her on dialysis. Plan ? Dialysis today ? Pharmacy to dose medications ? Avoid nephrotoxic medications ? Continue strict in and out ? Recommend to monitor fluid that was brought from home as it may contain high salt which may worsen her fluid overload. #Acute ischemic stroke #Acute decompensated HF #Hyperlipidemia #Primary Hypertension #Acute Hypoxic Respiratory failure #Peritonitis secondary to perforated gastric ulcer- s/p sx, drains removed #Acute Upper GI bleed #Diabetes Mellitus type II #Acute anemia Plan ? Follow-up with the primary team recommendations Thank you for your consultation, please do not hesitate to reach out if you have any concerns or questions. All above problems per primary team. Prognosis remains guarded. - Patient's plan and care discussed with my attending, Dr. Mata Sifuentes MD Internal Medicine PGY-2 Attending Provider Attestation/Addendum Patient seen and examined with resident physician Dr. Barton. Note reviewed, agree with findings and recommendations. Patient currently seen on dialysis. Tolerating dialysis without any problems. Hemodialysis for 3 hours, 2K, ultrafiltration 2-3 L, Epogen 6000, no heparin ordered. Plan of care discussed with the dialysis nurse. Please see dialysis flowsheet for further details. Patient can be discharged as outpatient dialysis arrangements are made.
--- NOTE | 2024-06-16 09:02 | PC.NURSE ---
Addendum entered by Anne Wray RN 06/16/24 09:13: Dr August called due to multiple arterial alarms. HD discontinued and cathflo ordered for HD catheter. Original Note: Multiple arterial alarms, decreased blood flow to 200
[2024-06-16] MEDS: ALBUTEROL/IPRATROPIUM (Duoneb) RT SOL 3 ML NEBU INH ×2 (09:03→23:17)
[2024-06-16] MEDS: CATHFLO (ALTEPLASE) INJ 4 MG, Sterile Water 4.4 ML INDWELLCAT (09:29)
--- NOTE | 2024-06-16 09:38 | PC.SS ---
Follow up note: Pt will have dialysis Wednesday. Patient's dialysis chair time is Wednesday, , and Wednesday at 10:15am at [facility]. First session pt has to be there at 9:45am. [facility] does not start new patients over the weekend. Patient will have to start dialysis on Wednesday at 9:45am.
--- NOTE | 2024-06-16 10:09 | PC.NURSE ---
HD restarted. Good flow from venous port, no flow from arterial port. Lines reversed.
--- NOTE | 2024-06-16 10:24 | PC.NURSE ---
Pt. moving around in bed and setting of arterial alarm. Gave benadryl 12.5 mg to help her calm down.
[2024-06-16] MEDS: DiphenhydrAMINE INJ 50 MG/ML VIAL 12.5 MG IVP (10:29)
[2024-06-16] MEDS: ALBUMIN HUMAN 25% IVPB 25 GM/100 ML BTL IV (10:35)
--- NOTE | 2024-06-16 10:38 | PC.NURSE ---
Albumin given for low BP.
[2024-06-16] MEDS: HEPARIN SOD INJ 1000 UNIT/ML VIAL 10 ML 3500 UNIT INDWELLCAT (11:43)
[2024-06-16] MEDS: HEPARIN SOD INJ 1000 UNIT/ML VIAL 10 ML 3500 UNIT IV (11:44)
[2024-06-16] MEDS: HYDROmorphone INJ 2 MG/ML VIAL 1 MG IVP (11:55)
--- NOTE | 2024-06-16 12:01 | PC.NURSE ---
Unalbe to run pt. as she keeps alarming. Rinsed pt. back as unable to run at 200. Dilaudid 1 mg IV given for pain.
[2024-06-16] MEDS: TIMOLOL OP SOL 0.5% 5 ML BTL 1 DROP BOTH EYES (14:13)
--- NOTE | 2024-06-16 14:17 | PC.CC ---
[employer] 3 Plus CGM ready to ship from [employer]. Patient may call [phone] to order if they are not contacted by [employer].
[2024-06-16] MEDS: MICAFUNGIN SODIUM INJ 100 MG in SODIUM CHLORIDE 0.9% 100 ML IV (16:57)
[2024-06-16] MEDS: droNABinol 2.5 MG CAPSULE 5 MG PO (17:33)
--- NOTE | 2024-06-16 18:22 | ESPR_ITS ---
Documentation for date of: 06/16/24 Senior resident attestation: Protected hospital course complicated by gastric perforation status post emergent laparotomy and repair, ICU stay as well as multiple postop abscesses and pneumonia. Also developed ADILSON/ATN requiring hemodialysis, patient has made less than optimal recovery postop, continues to develop multiple abdominal abscesses, repeat cultures grew Edna, was started on fluconazole, currently completing more than 2 weeks of fluconazole but had repeat abdominal pelvic abscesses on abdominal imaging. IR CT-guided abscess drainage was ordered, pelvic abscess was not amenable to drainage, smaller abscess was drained, sent for microbiology. Noted uptrending WBC count and increased patient discomfort as well as somnolence, started on broad-spectrum antibiotics for aspiration versus hospital-acquired pneumonia IV Zosyn and vancomycin as well as micafungin for candidal abscess not respond to fluconazole. Will get infectious disease specialist Dr Horn on board, regarding continuing micafungin versus optimal duration of therapy for fluconazole. #Sepsis?secondary to?Peritonitis secondary to perforated gastric ulcer s/p repair - resolved #Postop intra-abdominal abscess s/p drainage, likely fungal- will continue with antibiotics and micafungin pending abscess culture. And ID recommendations. daily PT , mobilize patient. Plan to discharge to SNF on fluconazole and PO antibiotics, once HD on wednesday is done, pt can get outpt HD on Wednesday. #Pneumonia, HCAP - on zosyn and vanc, cultures negative to date , but was started after worsening leucocytosis and pneumonic infiltrates on cxr, now improving. #A-fib RVR - on eliquis and po amiodarone #NSTEMI type 2 #ATN, likely progressed to ESRD- HD wed,nita,sat , dailysis chair secured, but to establish outpatient dialysis pt may need to stay until wednesday and get inpt HD then discarged and can get outpt HD on wednesday #Acute toxic encephalopathy?in the setting of sepsis?improving #Protein calorie malnutrition as well as general deconditioning due to poor diet, #History of diabetes mellitus- #History of gastric ulcer- BID protonix #Acute blood loss anemia secondary to GI bleed - resolved Patient evaluated and examined at the bedside, plan of care discussed with rest of the team including my attending physician, except as noted. Quresh pgy 2 Subjective Subjective Interval history: 06/16: No acute overnight events patient seen and examined in dialysis room this morning patient is on 4 L of oxygen via nasal cannula. Patient is more alert and is able to talk more however she is complaining of some abdominal pain. Patient still has a productive cough but is able to put more effort into trying to cough up the mucus. Patient leukocytosis is downtrending and patient remains afebrile, patient continues to be anuric and had 3 bowel movements today. Patient has no other complaints. Exam Vital Signs Temp Pulse Resp BP Pulse Ox O2 Del Method O2 Flow Rate 97.2 F 105 H 19 113/84 93 L Nasal Cannula 2 06/16/24 16:00 06/16/24 16:00 06/16/24 16:00 06/16/24 16:00 06/16/24 16:00 06/16/24 16:00 06/16/24 16:00 FiO2 4 06/16/24 00:00 Narrative Exam GENERAL: A&Ox3 . Awake and alert, Pt. is on 2L oxygen via nasal cannula NEURO: no focal neurological deficits HEENT: Atraumatic, Normocephalic. mucous membranes moist. Eyes open, symmetrical, & clear HEART: Normal Heart Sounds LUNGS: faint wheezing bilaterally and crackles on auscultation ABDOMEN: soft, non-distended, non-tender, bowel sounds heard, no guarding or rebound tenderness, incision site is clean. SKIN: No Rash or ecchymoses EXTREMITIES: trace pitting edema bilaterally on LE, tenderness, able to move all 4 extremities, pedal pulses palpated Objective Labs 06/17/24 04:20 06/17/24 04:20 Labs: Laboratory Results - last 24 hr 06/16/24 05:08 WBC 15.9 H RBC 2.86 L Hgb 7.6 L Hct 23.9 L MCV 84 MCH 26.6 MCHC 31.8 RDW Std Deviation 57.4 H Plt Count 310 Neut % (Auto) 62 Lymph % (Auto) 19 [place] % (Auto) 9 Eos % (Auto) 7 Baso % (Auto) 1 Neut # (Auto) 9.9 H Lymph # (Auto) 3.1 [place] # (Auto) 1.4 H Eos # (Auto) 1.2 H Baso # (Auto) 0.1 Immature Gran # (Auto) 0.33 H Absolute Nucleated RBC 0.25 H Immature Gran % 2 H Nucleated RBC % 2 H Sodium 136 Potassium 4.4 Chloride 95 L Carbon Dioxide 23.1 Anion Gap 18 H BUN 71 H Creatinine 6.6 H* D Estim Creat Clear Calc 7.0 L eGFR 6 L* BUN/Creatinine Ratio 11 L Glucose 80 Calculated Osmolality 291 Calcium 9.6 Corrected Calcium 9.9 Phosphorus 8.0 H Magnesium 2.3 Total Bilirubin 0.7 AST 18 ALT < 7 L Alkaline Phosphatase 103 Total Protein 7.4 Albumin 3.6 Globulin 3.8 H Albumin/Globulin Ratio 0.9 L ABG Interpretation ABG results: 05/13/24 05/15/24 05/15/24 08:29 15:28 16:03 ABG pH 7.39 7.05 L* D 7.17 L* D ABG pCO2 31 L 63 H D 45 D ABG pO2 78 L 38 L* D 84 D ABG HCO3 19 L 18 L 16 L ABG O2 Saturation 96 59 L 96 ABG Base Excess -5 L -12 L -11 L VBG pH VBG pCO2 VBG pO2 VBG Base Excess 05/16/24 05/17/24 05/18/24 04:38 04:03 04:20 ABG pH 7.28 L D 7.38 D 7.49 H D ABG pCO2 34 D 28 L 30 L ABG pO2 96 85 66 L ABG HCO3 16 L 17 L 23 ABG O2 Saturation 98 97 94 ABG Base Excess -10 L -8 L 0 VBG pH VBG pCO2 VBG pO2 VBG Base Excess 05/19/24 05/20/24 05/21/24 09:05 06:05 22:35 ABG pH 7.30 L D 7.41 D ABG pCO2 49 H D 42 ABG pO2 63 L 63 L ABG HCO3 24 27 H ABG O2 Saturation 91 93 ABG Base Excess -3 2 VBG pH 7.31 L VBG pCO2 50 VBG pO2 39 VBG Base Excess -2 05/26/24 05/29/24 04:17 12:28 ABG pH 7.38 7.42 ABG pCO2 42 35 ABG pO2 81 L 67 L ABG HCO3 25 23 ABG O2 Saturation 97 95 ABG Base Excess 0 -2 VBG pH VBG pCO2 VBG pO2 VBG Base Excess Quality Measures Quality Measures none Advance care planning discussed with:: patient and child Assessment & Plan Assessment Current Active Medications: Generic Name Dose Route Start Last Admin Trade Name Freq PRN Reason Stop Dose Admin Acetaminophen 650 mg 06/09/24 14:11 06/15/24 01:03 Acetaminophen 325 Mg Tablet PO 07/09/24 14:10 650 mg Q6HR PRN Administration Fever >101 and pain 1-3 Albuterol/Ipratropium 3 ml 05/27/24 18:08 06/16/24 09:03 Albuterol/Ipratropium (Duoneb) Rt Jimena 3 Ml Nebu INH 06/26/24 18:07 3 ml Q2HR PRN Administration SHORTNESS OF BREATH OR WHEEZE Amiodarone HCl 200 mg 05/29/24 15:00 06/16/24 13:54 Amiodarone Hcl 200 Mg Tablet PO 06/28/24 14:59 Not Given BID ANGELICA Apixaban 5 mg 06/13/24 21:00 06/16/24 13:54 Apixaban 2.5 Mg Tablet PO 07/13/24 20:59 Not Given BID ANGELICA Benzocaine 1 lozenge 05/31/24 11:53 06/09/24 23:07 Benzocaine/Menthol 1 Lozenge PO 06/30/24 11:52 1 lozenge Q4HR PRN Administration Sore throat Dextrose 25 ml 05/24/24 15:43 Dextrose 50%-Water Inj 50 Ml Syringe IV 06/23/24 15:42 Q15MIN PRN BG 50-70 responsive npo pt Dextrose 50 ml 05/24/24 15:43 Dextrose 50%-Water Inj 50 Ml Syringe IV 06/23/24 15:42 Q15MIN PRN BG <50 OR BG <70 & pt unresponsive Dronabinol 5 mg 06/07/24 10:40 06/16/24 17:33 Dronabinol 2.5 Mg Capsule PO 07/07/24 10:39 5 mg BIDAC ANGELICA Administration Glucagon 1 mg 05/24/24 15:43 Glucagon Inj 1 Mg Vial IM Q15MIN PRN BG <70, and no IV access Guaifenesin 200 mg 06/10/24 08:30 06/16/24 17:33 Guaifenesin Syrup 200 Mg/10 Ml Udc PO 07/10/24 08:29 200 mg QID ANGELICA Administration Protocol Heparin Sodium (Porcine) 3,500 unit 06/07/24 18:06 06/16/24 11:43 Heparin Sod Inj 1000 Unit/Ml Vial 10 Ml INDWELLCAT 06/21/24 18:05 3,500 unit PRN PRN Administration DIALYSIS Heparin Sodium (Porcine) 3,500 unit 06/16/24 08:22 06/16/24 11:44 Heparin Sod Inj 1000 Unit/Ml Vial 10 Ml IV 06/30/24 08:21 3,500 unit X1 PRN Administration DIALYSIS Piperacillin/Tazobactam/Dextrose 2.25 gm in 50 mls @ 100 mls/hr 06/10/24 12:10 06/16/24 13:59 Zosyn IV 06/17/24 12:09 100 mls/hr Q8HR ANGELICA Administration Micafungin Sodium 100 mg/ 100 mls @ 100 mls/hr 06/10/24 13:56 06/16/24 16:57 Sodium Chloride IV 06/25/24 13:55 100 mls/hr QDAY ANGELICA Administration Albumin Human 25 gm in 100 mls @ 100 mls/hr 06/12/24 16:40 06/16/24 10:35 Albuminar-25 Ivpb IV 100 mls/hr PRN PRN Administration DIALYSIS Insulin Glargine 12 unit 05/25/24 09:00 06/16/24 08:57 Insulin Glargine (Lantus) 5 Unit/0.05 Ml (Per 5 Units) SC 06/24/24 08:59 Not Given QDAY ANGELICA Insulin Human Lispro 0 unit 06/16/24 07:30 06/16/24 13:49 Insulin Lispro (Admelog) 1 Unit/0.01 Ml Unit SC 07/16/24 07:29 Not Given [facility] Protocol Lidocaine 1 patch 05/30/24 09:16 06/01/24 19:01 Lidocaine 5% 1 Patch TOP 06/29/24 09:15 1 patch DAILY PRN Administration BACK PAIN Metoprolol Succinate 50 mg 06/12/24 15:36 06/16/24 13:55 Metoprolol Succinate Xl 25 Mg Tabcr PO 07/09/24 21:04 Not Given QDAY ANGELICA Metoprolol Tartrate 50 mg 06/14/24 08:37 Metoprolol Tartrate 25 Mg Tablet PO 07/12/24 08:59 QDAY PRN Tachycardia above 150 Midodrine 5 mg 06/12/24 22:00 06/16/24 13:58 Midodrine 5 Mg Tablet PO 07/12/24 21:59 5 mg TID ANGELICA Administration Mirtazapine 15 mg 06/13/24 21:00 06/15/24 21:27 Mirtazapine 15 Mg Tablet PO 07/13/24 20:59 15 mg HS ANGELICA Administration Pharmacy Consult 1 each 06/10/24 12:15 Vancomycin Pharmacy To Dose 1 Each Each IV 07/10/24 12:14 QDAY PRN CONSULT Polyethylene Glycol 17 gm 06/12/24 15:36 Polyethylene Glycol 17 Gm Packet PO 07/09/24 10:44 BID PRN constipation Protocol Sennosides 1 tab 06/09/24 10:45 06/16/24 13:56 Senna Tablet PO 07/09/24 10:44 Not Given QDAY ANGELICA Protocol Sodium Chloride 3 ml 05/24/24 19:00 Sodium Chloride Rt Jimena 0.9% 3 Ml Nebu INH 06/23/24 18:59 PRN PRN SOLN Timolol Maleate 1 drop 05/28/24 18:15 06/16/24 14:13 Timolol Op Jimena 0.5% 5 Ml Btl BOTH EYES 06/27/24 18:14 1 drop DAILY ANGELICA Administration Plan Ms. Castellanos is a 69-year-old female with past medical history significant for hypertension, diabetes and history of gastric ulcers who presented to the ED on 05/13/2024 after she was found unconscious on the floor. Per chart reviewing prior to this unconsciousness patient was having abdominal pain and generalized weakness with diarrhea and shortness of breath for 2 days. Patient was admitted to the hospital for treatment and management of sepsis secondary to pneumonia. Patient was given 1 L normal saline and started on ceftriaxone and azithromycin. patient underwent ex lap surgery for perforated gastric ulcer. Patient remained intubated postop and was upgraded to the ICU. Patient continues to be on dialysis after downgrade, has BALAJI and accordion drain intact, completed bowel rest, was started on dysphagia 1 diet, surgery following case closely, will continue to monitor. #Perforated gastric ulcer #Hx of gastric ulcers #Pneumoperitoneum #Peritonitis secondary to perforated gastric ulcer - s/p ex lap #Abdominal Abscess, s/p percutaneous drainage x2- removed #Abdominal and pelvic abscesses #Leukocytosis-improving Patient found to have tender abdomen, rigidity in the epigastrium, chest x-ray showed elevation of hemidiaphragm, CT abdomen showed pneumoperitoneum, concern for perforated viscus, general surgeon Dr. Santana was consulted for emergency laparotomy and possible repair of perforated gastric ulcer. Repeat CT abd/pel on 05/20 revealed Pneumoperitoneum, orogastric tube in the stomach, mild free fluid adjacent to the stomach and anterior to the pancreas. s/p Exploratory laparotomy & repair of perforated gastric ulcer - 05/15. 06/01/24: Overnight there was concern of wound dehiscence. Discussed with general surgeon per surgery superior aspect of the wound was dehiscent after removal of aixa.Surgery removal of BALAJI drain on 06/01. Repeat CT on 06/01- More pronounced fluid collection in the left abdomen below the spleen, 8.9 x 6.4cm, free fluid in the abdomen and pelvis, and Ascites -Repeat CT A/P 06/05: abscess collection in the left lower abdomen has markedly decreased in size. the accordions drains have no output this morning. Repeat CT on 06/10 shows multiple abdominal and pelvic abscesses and pneumonia left base Plan: ?Patient completed antibiotic therapy, Meropenem, discontinued per ID Recommendations -percutaneous abscess drain catheter placed 06/02 ?disontinue with TPN 06/05 . Patient's diet is advanced to dysphagia 1 and have encouraged family members to bring home-cooked meals that patient would eat ?Continue dronabinol and mirtazapine as appetite stimulator -accordian drains removed on 06/05 -Patient is status post abdominal abscess drained on 06/12/2024 and the pelvic abscess is too small to be drained -Abscess culture from 05/25 and 06/02 grew edna albicans -[place] PRN for pain ordered -Patient completed 20 days of fluconazole and is now switched to micafungin started on 06/10- #Hospital aquired pneumonia #right pleural effusions -Pt has a productive cough, leukocytosis -Chest xray 06/15- Significant pneumonia right base, Small right pleural effusion plan: -Duonebs prn -mucolytics ordered -chest physiotherapy -continue zosyn (started 06/10- #New onset A-fib with RVR #NSTEMI type 2 -Likely secondary to shock in the setting of abdominal surgery -EKG findings consistent with A-fib -Was on Amiodarone 200 twice daily for new onset Afib, but as she was in AFib with RVR. Plan: ?Cardiology consulted, appreciate recs -Currently on oral amiodarone 200mg and metoprolol ? Resumed eliquis 5mg BID for anticoagulation #Protein Calorie malnutrition ?Patient noted to have poor appetite, is finishing less than 50% of her meals, was initially on TPN which is discontinued. -Added dronabinol and mirtazapine as appetite stimulator -Dysphagia 1 diet order, Pts family is encouraged to bring home cooked meals that pt mayb interested in #Acute tubular necrosis likely progressed to ESRD #Anuria -2/2 septic shock -Patient had small amount of urine production on 06/08 however this morning no urine yet -Baseline Cr appears to be 0.7 Plan: ?Patient underwent HD fluid removal and removed 2.1 L on 05/18 and 1.5 L on 05/19, 2L fluid removed 05/21, 2.5 L fluid removed on 05/22 , 3L fluid removed on 05/23, 3L fluid removed 05/25, 2L removed 05/26, 1 L removed 05/29, 1.5 L removed 05/30, 06/01 2L fluid removed. -permanent hemodialysis cath placed on 06/02/24 -Patient will require outpatient hemodialysis, dialysis chair secured by case management - Hemodialysis as per schedule of Elina Das Sat -Started on midodrine 10 mg BID as patient has difficulty tolerating dialysis, blood pressure drops. -Renally dose medications and avoid nephrotoxic agents -repeat labs in am -Nephrology following #Acute exacerbation of HFpEF # HFpEF EF 55 to 60% -echo 05/16 -estimated EF of 55 to 60%, stage I diastolic dysfunction noted, Moderate to severe posterior MAC -Pt presented with SOB and 2+ edema in LE -elevated BNP from 304 --> 1110 -HD in the setting of anuria -holding guideline directed medical therapy due to shock, will resume when able -Continue dialysis, as per nephrology recommendations #Acute Hypoxic Respiratory failure #fluid overload in the setting of ATN likely multifactorial -2/2 to pulmonary edema in the setting of volume overload 2/2 ATN due to shock leading to oligoanuria versus bibasilar pneumonia -Further complicated by bilateral lung atelectasis in the setting of recent abdominal surgery and sedatives use -Patient was intubated and on mechanical ventilation (05/15) and extubated 05/18/2024, currently saturating 95-97 % on 5 L NC -Duonebs prn -chest physiotherapy ordered -mucolytics ordered #Acute Upper GI bleed - stable -Most likely secondary to perforated gastric ulcer -Patient had a single episode of black tarry stool today-likely setting of recent abdominal surgery -Continue iv Protonix. -Will monitor for alarm signs of active bleeding with melena or hematochezia #Hx of Diabetes Mellitus type II - A1C 6.3 % 05/21/2024 - Hold home glipizide and januvia - Plan: Continue to monitor blood sugars - Insulin sliding scale ordered with lantus 12 units #Hyperlipidemia -Unclear if patient takes any medications as a statin is not on list of home meds #Primary Hypertension Holding on resuming home blood pressure medicines at this time #Acute blood loss anemia, stable 2/2 perforated ulcer- S/P surgical repair Hgb stable 9.6 Hct 28.3 patient received 2 units of pRBC 05/18 due to acutely drop in Hgb below 7. No signs of active bleeding. Plan: -Continue to monitor daily CBC. transfuse for hemoglobin less than 7. # Acute encephalopathy-resolved -Likely multifactorial secondary to sepsis versus metabolic versus neurologic versus medication -Patient is awake and alert and follows commands. Patient is able to respond to yes or no questions verbally #Shock - resolved #Hypoosmolar Hyponatremia, resolved Disposition: Telemetry DVT prophylaxis: Eliquis 5 mg twice daily anticoagulation for A-fib GI prophylaxis:Protonix 40 BID Diet: Dysphagia 1 diet CODE STATUS: Full Assessment and plan discussed with my senior resident physician Dr. Quiñonez and my Attending physician Dr. Anusha Rivera ([id number]-[id number])- Internal medicine resident Attending Provider Attestation/Addendum Janel Gaffney, DO, attest that I was physically present for the donnelly portions of the service and evaluated the patient with the resident and I reviewed and discussed the case with the resident and agree with the resident's findings and plans of care as documented above Patient seen and evaluated this AM. Patient is very alert and reports some abdominal discomfort. Patient undergoing dialysis at time of evaluation. Lungs appear to have mild b/l rhonchi. Abdomen is nondistended and soft. HR fluctuating, suspect due to pain. Will dilaudid for pain control.
--- NOTE | 2024-06-16 18:54 | PD.IMPROG ---
Documentation for date of: 06/16/24 Subjective Subjective Interval history: Downward trending WBC count to 15.9 Hemoglobin hematocrit stabilizing around 7.6 and 23.9 No signs of any active bleeding Exam Vital Signs Temp Pulse Resp BP Pulse Ox O2 Del Method O2 Flow Rate 97.2 F 105 H 19 113/84 93 L Nasal Cannula 2 06/16/24 16:00 06/16/24 16:00 06/16/24 16:00 06/16/24 16:00 06/16/24 16:00 06/16/24 16:00 06/16/24 16:00 FiO2 4 06/16/24 00:00 Constitutional Comments: Chronically ill-appearing Routine Respiratory Exam Comments: Normal to auscultation Routine Abdominal Exam Comments: Positive bowel sounds Objective Labs 06/16/24 05:08 06/16/24 05:08 Labs: Laboratory Results - last 24 hr 06/16/24 05:08 WBC 15.9 H RBC 2.86 L Hgb 7.6 L Hct 23.9 L MCV 84 MCH 26.6 MCHC 31.8 RDW Std Deviation 57.4 H Plt Count 310 Neut % (Auto) 62 Lymph % (Auto) 19 [place] % (Auto) 9 Eos % (Auto) 7 Baso % (Auto) 1 Neut # (Auto) 9.9 H Lymph # (Auto) 3.1 [place] # (Auto) 1.4 H Eos # (Auto) 1.2 H Baso # (Auto) 0.1 Immature Gran # (Auto) 0.33 H Absolute Nucleated RBC 0.25 H Immature Gran % 2 H Nucleated RBC % 2 H Sodium 136 Potassium 4.4 Chloride 95 L Carbon Dioxide 23.1 Anion Gap 18 H BUN 71 H Creatinine 6.6 H* D Estim Creat Clear Calc 7.0 L eGFR 6 L* BUN/Creatinine Ratio 11 L Glucose 80 Calculated Osmolality 291 Calcium 9.6 Corrected Calcium 9.9 Phosphorus 8.0 H Magnesium 2.3 Total Bilirubin 0.7 AST 18 ALT < 7 L Alkaline Phosphatase 103 Total Protein 7.4 Albumin 3.6 Globulin 3.8 H Albumin/Globulin Ratio 0.9 L Impressions Impression: # Intra-abdominal abscesses requiring catheter drainage by the IR Status post repair of the perforated gastric ulcer # End-stage renal disease on hemodialysis # Poor p.o. intake ABG Interpretation ABG results: 05/13/24 05/15/24 05/15/24 08:29 15:28 16:03 ABG pH 7.39 7.05 L* D 7.17 L* D ABG pCO2 31 L 63 H D 45 D ABG pO2 78 L 38 L* D 84 D ABG HCO3 19 L 18 L 16 L ABG O2 Saturation 96 59 L 96 ABG Base Excess -5 L -12 L -11 L VBG pH VBG pCO2 VBG pO2 VBG Base Excess 05/16/24 05/17/24 05/18/24 04:38 04:03 04:20 ABG pH 7.28 L D 7.38 D 7.49 H D ABG pCO2 34 D 28 L 30 L ABG pO2 96 85 66 L ABG HCO3 16 L 17 L 23 ABG O2 Saturation 98 97 94 ABG Base Excess -10 L -8 L 0 VBG pH VBG pCO2 VBG pO2 VBG Base Excess 05/19/24 05/20/24 05/21/24 09:05 06:05 22:35 ABG pH 7.30 L D 7.41 D ABG pCO2 49 H D 42 ABG pO2 63 L 63 L ABG HCO3 24 27 H ABG O2 Saturation 91 93 ABG Base Excess -3 2 VBG pH 7.31 L VBG pCO2 50 VBG pO2 39 VBG Base Excess -2 05/26/24 05/29/24 04:17 12:28 ABG pH 7.38 7.42 ABG pCO2 42 35 ABG pO2 81 L 67 L ABG HCO3 25 23 ABG O2 Saturation 97 95 ABG Base Excess 0 -2 VBG pH VBG pCO2 VBG pO2 VBG Base Excess Assessment & Plan A&P Narrative abd abscess, stain neg. later grew c albicans so on flucon now here since 05/13.usual rx for most things is 7d. left on merrem thru weekend but collection in abd eventually grew a yeast, so ok for another 7d rx will see again if requested Time Spent With Patient Time: Total time spent is greater than 50% in coordination of care (as documented) at patient's floor/unit and/or counseling patient:
[2024-06-16] MEDS: ACETAMINOPHEN 325 MG TABLET 650 MG PO (21:16)
[2024-06-16] MEDS: AMIODARONE HCL 200 MG TABLET PO (21:16)
[2024-06-16] MEDS: APIXABAN 2.5 MG TABLET 5 MG PO (21:16)
[2024-06-16] MEDS: MIRTAZAPINE 15 MG TABLET PO (21:17)
[2024-06-17] VITALS (20 sets, daily range): BP systolic 71–127; BP diastolic 36–86; PULSE 52–114; RESP 13–28; TEMP 35.9–36.8; O2SAT 95–100; BMI 34.5
[2024-06-17] MEDS: MIDODRINE 5 MG TABLET PO (05:00)
[2024-06-17] MEDS: HYDROcodone/APAP 5/325 TABLET 1 TAB PO (05:00)
[2024-06-17] MEDS: PIPER/TAZO 2.25 GM 2.25 GM/50 ML BAG IV (05:01)
[2024-06-17] MEDS: guaiFENesin SYRUP 200 MG/10 ML UDC PO ×4 (05:01→20:58)
[2024-06-17 05:36] LABS: Basophils # (Auto) 0.1 Thou/mm3 (0.0-0.2); Basophils % (Auto) 1 % (0-2.5); Eosinophils # (Auto) 0.8 Thou/mm3 (0.0-0.5); Eosinophils % (Auto) 7 % (0-10); Hematocrit 25.7 % (36.0-46.0); Immature Granulocytes % (Auto) 4 % (0-0); Immature Granulocytes Auto 0.41 Thou/mm3 (0.00-0.00); Lymphocytes # (Auto) 2.7 Thou/mm3 (1.0-4.8); Lymphocytes % (Auto) 25 % (10-50); Mean Corpuscular HGB Conc 30.7 g/dl (31.0-37.0); Mean Corpuscular Volume 85 fL (80-100); Monocytes % (Auto) 9 % (0-12); Neutrophils # (Auto) 6.1 Thou/mm3 (1.8-7.7); Neutrophils % (Auto) 55 % (37-80); Nucleated Red Blood Cell # 0.39 Thou/mm3 (0.00-0.00); Nucleated Red Blood Cell % 4 /100 WBC (0); Platelet Count 256 Thou/mm3 (140-440); Red Blood Count 3.04 Miln/mm3 (4.00-5.20); White Blood Count 11.1 Thou/mm3 (3.6-11.0)
[2024-06-17 05:44] LABS: Hemoglobin 7.9 g/dL (12.0-16.0)
[2024-06-17 06:19] LABS: Alanine Aminotransferase < 7 U/L (10-49); Albumin, Serum 3.9 gm/dL (3.4-4.8); Alkaline Phosphatase 110 U/L (46-116); Anion Gap 16 (7-16); Aspartate Amino Transferase 27 U/L (0-34); BUN/Creatinine Ratio 10 Ratio (12-20); Bilirubin,Total 0.9 mg/dL (0.3-1.2); Blood Urea Nitrogen 48 mg/dL (9-23); Calcium 9.5 mg/dL (8.3-10.6); Calcium (Corrected) 9.6 mg/dL (8.5-10.1); Carbon Dioxide 24.6 mMol/L (20.0-31.0); Chloride 93 mMol/L (98-107); Creatinine (Component) 4.9 mg/dL (0.6-1.3); Estimated Creatinine Clearance 9.2 mL/min (>60); Glucose 89 mg/dL (74-106); Magnesium 2.2 mg/dL (1.6-2.6); Osmolality,Calculated 279 (275-295); Phosphorous 6.2 mg/dL (2.4-5.1); Potassium 3.3 mMol/L (3.4-5.1); Sodium 134 mMol/L (136-145); Total Protein 7.9 gm/dL (5.7-8.2); Vancomycin,Random 15.7 mcg/mL; eGFR 9 See Note
--- NOTE | 2024-06-17 08:03 | ESPR_ITS ---
Documentation for date of: 06/17/24 Subjective Subjective Interval history: Interval history: Mr. Castellanos is a [id number] with past medical history of prediabetes, CKD, hypertension, history of ulcers who was admitted to [facility] for sepsis secondary to pneumonia and acute metabolic encephalopathy. Patient was BIBA to the ED after being found unconscious on the floor. According to the son on admission patient's daughter found the patient at 3 AM passed out on the floor and unresponsive. Family is unaware along the patient was on the floor. 2 days ago patient started to develop abdominal pain and weakness all over her body associated with some diarrhea and shortness of breath. Patient's abdominal pain comes and goes from right side to left side of the abdomen. ED course patient was hypertensive tachycardic tachypneic and was saturating 92% on 5 L nasal cannula ED labs significant for WBCs 24.3, bicarb 19.6, glucose 259, lactic acid 2.2, BNP 304, troponin 0.09. 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, colonic diverticulosis, Cervical spine CT showed 3 mm radiolucency in C3 vertebral body Chest CTA showed mild aneurysmal dilatation ascending thoracic aorta AP dimension 4.3 cm and pulmonary artery hypertension with moderate vascular congestion Face CT shows no acute facial fracture, Lumbar spine CT shows no acute lumbar fracture severe acquired spinal stenosis L4-L5, Thoracic spine CT showed no acute fracture Brain MRI with MRA showed equally focal restricted diffusion brainstem medullary level significant stenosis of right P1 P2 segment posterior cerebral artery Postadmission, cardiology was consulted on admission because of elevated troponins, suspicion of NSTEMI type II, patient has acute decompensated heart failure per cardiology evaluation, neurology consulted because of patient's acute metabolic encephalopathy and GI was consulted for suspicion of GI bleed. Eventually on 05/15 rapid response was called for worsening chest pain, patient's map was consistently in 70s, was tachycardic tachypneic. CT angiogram showed pneumoperitoneum multiple air droplets adjacent to and within wall of stomach with suspicion of gastric perforation. General surgery was consulted for emergency surgery and patient had exploratory laparotomy with repair of perforated gastric ulcer with an omental patch. Patient was upgraded to ICU postop for further management patient currently on Levophed and vasopressor due to distributive shock, currently sedated and intubated on mechanical ventilation. Nephrology consulted due to concern of ADILSON. 06/10/2024 patient currently seen in telemetry. Patient complaining of abdominal pain. Scheduled for dialysis today. Although did have some trouble with catheter before. tPA was placed. Catheter could not be exchanged yesterday. Will monitor catheter function closely. Unfortunately IR not available until Wednesday. 06/11/2024 patient currently seen in telemetry. Sick looking. Did receive dialysis yesterday. Still having some abdominal discomfort.WBC 28.7, hemoglobin 7.8, platelets 261. Sodium 134, potassium 4.8, BUN 53, creatinine 5.6, magnesium 2.4, LFTs normal, albumin 4.0 chest x-ray showed pneumonia/mild heart failure. CT abdomen repeat showed multiple abdominal and pelvic abscesses. Prognosis remains guarded. 06/17/2024 patient supposed to be discharged to rehab today. Alert and awake. Daughter at bedside. Outpatient dialysis TTS schedule done. Try to do short run of dialysis today however patient had an significant hypotension I had to stop dialysis. After giving 200 cc fluid her blood pressure returned back to normal. Discharge planning per primary team. Review of Systems Review of Systems Narrative Review of Systems: Denies any chest pain. ++ Cough, shortness of breath with wheezing-much better c/o mild Abdominal pain. No nausea, vomiting. Significant functional decline. Exam Vital Signs Temp Pulse Resp BP Pulse Ox O2 Del Method O2 Flow Rate 35.9 C L 108 H 22 H 105/58 L 99 Nasal Cannula 2 06/17/24 04:00 06/17/24 07:47 06/17/24 07:47 06/17/24 05:00 06/17/24 07:47 06/17/24 04:00 06/17/24 07:47 FiO2 4 06/16/24 00:00 Narrative Exam GENERAL APPEARANCE: Patient currently seen in telemetry. NECK: Neck supple, no JVD or bruit CARDIOVASCULAR: Heart regular, no murmurs LUNGS/CHEST: few rhonchi and wheezing noted ABDOMEN: Mild discomfort in the lower abdomen s/p surgery EXTREMITIES: 2+ edema in the lower extremities SKIN: Abdominal surgery MUSCULOSKELETAL: In bed NEUROLOGICAL : Alert and awake. Objective Labs 06/17/24 04:20 06/17/24 04:20 Labs: Laboratory Results - last 24 hr 06/17/24 04:20 WBC 11.1 H RBC 3.04 L Hgb 7.9 L Hct 25.7 L MCV 85 MCH 26.0 MCHC 30.7 L RDW Std Deviation 59.0 H Plt Count 256 D Neut % (Auto) 55 Lymph % (Auto) 25 Mccreary % (Auto) 9 Eos % (Auto) 7 Baso % (Auto) 1 Neut # (Auto) 6.1 Lymph # (Auto) 2.7 Mccreary # (Auto) 1.0 H Eos # (Auto) 0.8 H Baso # (Auto) 0.1 Immature Gran # (Auto) 0.41 H Absolute Nucleated RBC 0.39 H Immature Gran % 4 H Nucleated RBC % 4 H Sodium 134 L Potassium 3.3 L D Chloride 93 L Carbon Dioxide 24.6 Anion Gap 16 BUN 48 H Creatinine 4.9 H* D Estim Creat Clear Calc 9.2 L eGFR 9 L* BUN/Creatinine Ratio 10 L Glucose 89 Calculated Osmolality 279 Calcium 9.5 Corrected Calcium 9.6 Phosphorus 6.2 H Magnesium 2.2 Total Bilirubin 0.9 AST 27 ALT < 7 L Alkaline Phosphatase 110 Total Protein 7.9 Albumin 3.9 Globulin 4.0 H Albumin/Globulin Ratio 1.0 L Random Vancomycin 15.7 ABG Interpretation ABG results: 05/13/24 05/15/24 05/15/24 08:29 15:28 16:03 ABG pH 7.39 7.05 L* D 7.17 L* D ABG pCO2 31 L 63 H D 45 D ABG pO2 78 L 38 L* D 84 D ABG HCO3 19 L 18 L 16 L ABG O2 Saturation 96 59 L 96 ABG Base Excess -5 L -12 L -11 L VBG pH VBG pCO2 VBG pO2 VBG Base Excess 05/16/24 05/17/24 05/18/24 04:38 04:03 04:20 ABG pH 7.28 L D 7.38 D 7.49 H D ABG pCO2 34 D 28 L 30 L ABG pO2 96 85 66 L ABG HCO3 16 L 17 L 23 ABG O2 Saturation 98 97 94 ABG Base Excess -10 L -8 L 0 VBG pH VBG pCO2 VBG pO2 VBG Base Excess 12/20/24 12/21/24 12/22/24 09:05 06:05 22:35 ABG pH 7.30 L D 7.41 D ABG pCO2 49 H D 42 ABG pO2 63 L 63 L ABG HCO3 24 27 H ABG O2 Saturation 91 93 ABG Base Excess -3 2 VBG pH 7.31 L VBG pCO2 50 VBG pO2 39 VBG Base Excess -2 05/26/24 05/29/24 04:17 12:28 ABG pH 7.38 7.42 ABG pCO2 42 35 ABG pO2 81 L 67 L ABG HCO3 25 23 ABG O2 Saturation 97 95 ABG Base Excess 0 -2 VBG pH VBG pCO2 VBG pO2 VBG Base Excess Assessment & Plan Additional Assessment & Plan Additional Plan: Mr. Castellanos is a [id number] with past medical history of prediabetes, CKD, hypertension, history of ulcers who was admitted to [facility] for sepsis secondary to pneumonia and acute metabolic encephalopathy. Patient is currently sedated intubated in ICU status post exploratory laparotomy with repair of perforated gastric ulcer with an omental patch. Nephrology consulted for acute kidney injury. #Acute kidney injury #Acute Tubular Necrosis 2/2 shock #Anasarca Patient currentlyin ATN probably ischemic from fluctuations in blood pressure and underlying shock- started her on dialysis. Patient has left IJ PermCath Hemodialysis for 2 hours, 2K, ultrafiltration 1 L, Epogen 6000, no heparin ordered. Plan of care discussed with the dialysis nurse. Please see dialysis flowsheet for further details. Patient had hypotensive episodes during dialysis and had to stop dialysis. With 200 cc bolus she recovered her blood pressure. Plan discussed with primary team--discharge planning per primary team. #Acute ischemic stroke #Acute decompensated HF #Hyperlipidemia #Primary Hypertension #Acute Hypoxic Respiratory failure #Peritonitis secondary to perforated gastric ulcer- s/p sx, drains removed #Acute Upper GI bleed #Diabetes Mellitus type II #Acute anemia All above problems per primary team. Prognosis remains guarded.
[2024-06-17] MEDS: SENNA TABLET 1 TAB PO (09:22)
[2024-06-17] MEDS: droNABinol 2.5 MG CAPSULE 5 MG PO ×2 (09:22→18:11)
[2024-06-17] MEDS: APIXABAN 2.5 MG TABLET 5 MG PO ×2 (09:22→20:57)
[2024-06-17] MEDS: LIDOCAINE 5% 1 PATCH TOP (09:23)
[2024-06-17] MEDS: MICAFUNGIN SODIUM INJ 100 MG in SODIUM CHLORIDE 0.9% 100 ML IV (09:23)
[2024-06-17] MEDS: TIMOLOL OP SOL 0.5% 5 ML BTL 1 DROP BOTH EYES (09:24)
[2024-06-17] MEDS: VANCOMYCIN/NS 500 MG IVPB 100 ML 120 MG IV (10:56)
[2024-06-17] MEDS: ALBUMIN HUMAN 25% IVPB 25 GM/100 ML BTL IV (11:50)
--- NOTE | 2024-06-17 11:51 | PC.NURSE ---
Unable to aspirate from arterial port, lines reversed. BP low, albumin 25% given.
--- NOTE | 2024-06-17 12:04 | PC.NURSE ---
BP low, UF off.
--- NOTE | 2024-06-17 12:30 | PC.NURSE ---
Rapid called due to low BP. Given 250 cc NS bolus and BP came up to 116/65. Dr August called and she instructed to stop HD. Next BP was 87/65. Then 90/54.
[2024-06-17] MEDS: HEPARIN SOD INJ 1000 UNIT/ML VIAL 10 ML 3500 UNIT INDWELLCAT (12:43)
[2024-06-17] MEDS: MIDODRINE 5 MG TABLET 10 MG PO (13:50)
--- NOTE | 2024-06-17 14:02 | PC.SS ---
[employer] (MICAELA) met with patient's son, Casa to discuss discharge plan. SW provided [facility]'s address and phone number. SW provided dialysis schedule (days and time). At the time, [facility] reported not having a female bed until Wednesday, 06/19. [facility] is requesting that patient not be transferred to another facility that is not [facility]. MICAELA updated Dr. Tavares.
--- NOTE | 2024-06-17 15:26 | ESPR_ITS ---
Documentation for date of: 06/17/24 Subjective Subjective Interval history: Poor p.o. intake WBC count is trending downward down to 11.1 Low hemoglobin hematocrit 7.9 and 25.7 but stable Exam Vital Signs Temp Pulse Resp BP Pulse Ox O2 Del Method O2 Flow Rate 96.8 F 87 18 90/54 L 95 Nasal Cannula 2 06/17/24 12:46 06/17/24 13:50 06/17/24 12:46 06/17/24 13:50 06/17/24 12:46 06/17/24 12:00 06/17/24 12:46 FiO2 4 06/17/24 12:00 Constitutional Comments: Chronically ill Routine Respiratory Exam Comments: Normal to auscultation Routine Abdominal Exam Comments: Positive bowel sounds Objective Labs 06/17/24 04:20 06/17/24 04:20 Labs: Laboratory Results - last 24 hr 06/17/24 04:20 WBC 11.1 H RBC 3.04 L Hgb 7.9 L Hct 25.7 L MCV 85 MCH 26.0 MCHC 30.7 L RDW Std Deviation 59.0 H Plt Count 256 D Neut % (Auto) 55 Lymph % (Auto) 25 Glenn % (Auto) 9 Eos % (Auto) 7 Baso % (Auto) 1 Neut # (Auto) 6.1 Lymph # (Auto) 2.7 Glenn # (Auto) 1.0 H Eos # (Auto) 0.8 H Baso # (Auto) 0.1 Immature Gran # (Auto) 0.41 H Absolute Nucleated RBC 0.39 H Immature Gran % 4 H Nucleated RBC % 4 H Sodium 134 L Potassium 3.3 L D Chloride 93 L Carbon Dioxide 24.6 Anion Gap 16 BUN 48 H Creatinine 4.9 H* D Estim Creat Clear Calc 9.2 L eGFR 9 L* BUN/Creatinine Ratio 10 L Glucose 89 Calculated Osmolality 279 Calcium 9.5 Corrected Calcium 9.6 Phosphorus 6.2 H Magnesium 2.2 Total Bilirubin 0.9 AST 27 ALT < 7 L Alkaline Phosphatase 110 Total Protein 7.9 Albumin 3.9 Globulin 4.0 H Albumin/Globulin Ratio 1.0 L Random Vancomycin 15.7 Impressions Impression: # Failure to thrive poor p.o. intake # Downtrending leukocytosis stable hemoglobin hematocrit although low Encourage p.o. intake ABG Interpretation ABG results: 12/05/15/24 05/15/24 08:29 15:28 16:03 ABG pH 7.39 7.05 L* D 7.17 L* D ABG pCO2 31 L 63 H D 45 D ABG pO2 78 L 38 L* D 84 D ABG HCO3 19 L 18 L 16 L ABG O2 Saturation 96 59 L 96 ABG Base Excess -5 L -12 L -11 L VBG pH VBG pCO2 VBG pO2 VBG Base Excess 05/16/24 05/17/24 05/18/24 04:38 04:03 04:20 ABG pH 7.28 L D 7.38 D 7.49 H D ABG pCO2 34 D 28 L 30 L ABG pO2 96 85 66 L ABG HCO3 16 L 17 L 23 ABG O2 Saturation 98 97 94 ABG Base Excess -10 L -8 L 0 VBG pH VBG pCO2 VBG pO2 VBG Base Excess 05/19/24 05/20/24 05/21/24 09:05 06:05 22:35 ABG pH 7.30 L D 7.41 D ABG pCO2 49 H D 42 ABG pO2 63 L 63 L ABG HCO3 24 27 H ABG O2 Saturation 91 93 ABG Base Excess -3 2 VBG pH 7.31 L VBG pCO2 50 VBG pO2 39 VBG Base Excess -2 05/26/24 05/29/24 04:17 12:28 ABG pH 7.38 7.42 ABG pCO2 42 35 ABG pO2 81 L 67 L ABG HCO3 25 23 ABG O2 Saturation 97 95 ABG Base Excess 0 -2 VBG pH VBG pCO2 VBG pO2 VBG Base Excess Assessment & Plan A&P Narrative abd abscess, stain neg. later grew c albicans so on flucon now here since 05/13.usual rx for most things is 7d. left on merrem thru weekend but collection in abd eventually grew a yeast, so ok for another 7d rx will see again if requested Time Spent With Patient Time: Total time spent is greater than 50% in coordination of care (as documented) at patient's floor/unit and/or counseling patient:
--- NOTE | 2024-06-17 18:04 | ESPR_ITS ---
Documentation for date of: 06/17/24 Subjective Subjective Interval history: Patient is evaluated at the bedside, daughter is present, who asked the patient in her three affiliated language about pain, patient reported she is having back pain, patient does seem more active today, she is more alert, plan to discharge today, Dr August saw the patient today who recommended getting another session of show dialysis before discharge. #Rapid response was called, while patient was in dialysis, as soon as dialysis was initiated patient became hypotensive, blood pressure trending down into the 70s, IV albumin was given, hemodialysis was stopped, volume was returned and blood pressure improved to the 100s, of note patient had not received her metoprolol and amiodarone prior to dialysis. Continue to monitor blood pressure, which stayed stable. Spoke to charcoal burner [employer]ehive kil[employer], who recommended holding off on dialysis, but patient is still okay to be discharged and follow-up on outpatient dialysis. Case management reported later in the day that [facility] is not accepting the patient anymore as they do not have bed availability, stating that it has been over 2 weeks since they accepted the patient, they recommended trying other nursing facilities. Will continue the patient on IV antibiotics and IV antifungals for now, unlikely to be discharged on the weekend. Will order repeat speech language evaluation, as patient was started on dysphagia 1 diet following extubation 2 weeks ago, since is more alert now, will ask speech pathologist if advancing diet is possible. Probably non pur?ed food would also help with appetite. Exam Vital Signs Temp Pulse Resp BP Pulse Ox O2 Del Method O2 Flow Rate 97.6 F 88 21 H 118/77 100 Nasal Cannula 2 06/17/24 16:00 06/17/24 16:06/17/24 16:06/17/24 16:00 06/17/24 16:00 06/17/24 16:06/17/24 16:00 FiO2 4 06/17/24 16:00 Narrative Exam GENERAL: A&Ox3 . Awake and alert, Pt. is on 2L oxygen via nasal cannula NEURO: no focal neurological deficits HEENT: Atraumatic, Normocephalic. mucous membranes moist. Eyes open, symmetrical, & clear HEART: Normal Heart Sounds LUNGS: faint wheezing bilaterally and crackles on auscultation ABDOMEN: soft, non-distended, non-tender, bowel sounds heard, no guarding or rebound tenderness, incision site is clean. SKIN: No Rash or ecchymoses EXTREMITIES: trace pitting edema bilaterally on LE, tenderness, able to move all 4 extremities, pedal pulses palpated Objective Labs 06/18/24 05:50 06/18/24 05:50 Labs: Laboratory Results - last 24 hr 06/17/24 04:20 WBC 11.1 H RBC 3.04 L Hgb 7.9 L Hct 25.7 L MCV 85 MCH 26.0 MCHC 30.7 L RDW Std Deviation 59.0 H Plt Count 256 D Neut % (Auto) 55 Lymph % (Auto) 25 [place] % (Auto) 9 Eos % (Auto) 7 Baso % (Auto) 1 Neut # (Auto) 6.1 Lymph # (Auto) 2.7 [place] # (Auto) 1.0 H Eos # (Auto) 0.8 H Baso # (Auto) 0.1 Immature Gran # (Auto) 0.41 H Absolute Nucleated RBC 0.39 H Immature Gran % 4 H Nucleated RBC % 4 H Sodium 134 L Potassium 3.3 L D Chloride 93 L Carbon Dioxide 24.6 Anion Gap 16 BUN 48 H Creatinine 4.9 H* D Estim Creat Clear Calc 9.2 L eGFR 9 L* BUN/Creatinine Ratio 10 L Glucose 89 Calculated Osmolality 279 Calcium 9.5 Corrected Calcium 9.6 Phosphorus 6.2 H Magnesium 2.2 Total Bilirubin 0.9 AST 27 ALT < 7 L Alkaline Phosphatase 110 Total Protein 7.9 Albumin 3.9 Globulin 4.0 H Albumin/Globulin Ratio 1.0 L Random Vancomycin 15.7 ABG Interpretation ABG results: 05/13/24 05/15/24 05/15/24 08:29 15:28 16:03 ABG pH 7.39 7.05 L* D 7.17 L* D ABG pCO2 31 L 63 H D 45 D ABG pO2 78 L 38 L* D 84 D ABG HCO3 19 L 18 L 16 L ABG O2 Saturation 96 59 L 96 ABG Base Excess -5 L -12 L -11 L VBG pH VBG pCO2 VBG pO2 VBG Base Excess 05/16/24 05/17/24 05/18/24 04:38 04:03 04:20 ABG pH 7.28 L D 7.38 D 7.49 H D ABG pCO2 34 D 28 L 30 L ABG pO2 96 85 66 L ABG HCO3 16 L 17 L 23 ABG O2 Saturation 98 97 94 ABG Base Excess -10 L -8 L 0 VBG pH VBG pCO2 VBG pO2 VBG Base Excess 05/19/24 05/20/24 05/21/24 09:05 06:05 22:35 ABG pH 7.30 L D 7.41 D ABG pCO2 49 H D 42 ABG pO2 63 L 63 L ABG HCO3 24 27 H ABG O2 Saturation 91 93 ABG Base Excess -3 2 VBG pH 7.31 L VBG pCO2 50 VBG pO2 39 VBG Base Excess -2 05/26/24 05/29/24 04:17 12:28 ABG pH 7.38 7.42 ABG pCO2 42 35 ABG pO2 81 L 67 L ABG HCO3 25 23 ABG O2 Saturation 97 95 ABG Base Excess 0 -2 VBG pH VBG pCO2 VBG pO2 VBG Base Excess Quality Measures Quality Measures none Advance care planning discussed with:: patient and child Assessment & Plan Assessment Current Active Medications: Generic Name Dose Route Start Last Admin Trade Name Freq PRN Reason Stop Dose Admin Acetaminophen 650 mg 06/09/24 14:11 06/16/24 21:16 Acetaminophen 325 Mg Tablet PO 07/09/24 14:10 650 mg Q6HR PRN Administration Fever >101 and pain 1-3 Albuterol/Ipratropium 3 ml 05/27/24 18:08 06/16/24 23:17 Albuterol/Ipratropium (Duoneb) Rt Jimena 3 Ml Nebu INH 06/26/24 18:07 3 ml Q2HR PRN Administration SHORTNESS OF BREATH OR WHEEZE Amiodarone HCl 200 mg 05/29/24 15:00 06/17/24 09:41 Amiodarone Hcl 200 Mg Tablet PO 06/28/24 14:59 Not Given BID ANGELICA Apixaban 5 mg 06/13/24 21:00 06/17/24 09:22 Apixaban 2.5 Mg Tablet PO 07/13/24 20:59 5 mg BID ANGELICA Administration Benzocaine 1 lozenge 05/31/24 11:53 06/09/24 23:07 Benzocaine/Menthol 1 Lozenge PO 06/30/24 11:52 1 lozenge Q4HR PRN Administration Sore throat Dextrose 25 ml 05/24/24 15:43 Dextrose 50%-Water Inj 50 Ml Syringe IV 06/23/24 15:42 Q15MIN PRN BG 50-70 responsive npo pt Dextrose 50 ml 05/24/24 15:43 Dextrose 50%-Water Inj 50 Ml Syringe IV 06/23/24 15:42 Q15MIN PRN BG <50 OR BG <70 & pt unresponsive Dronabinol 5 mg 06/07/24 10:40 06/17/24 09:22 Dronabinol 2.5 Mg Capsule PO 07/07/24 10:39 5 mg BIDAC ANGELICA Administration Glucagon 1 mg 05/24/24 15:43 Glucagon Inj 1 Mg Vial IM Q15MIN PRN BG <70, and no IV access Guaifenesin 200 mg 06/10/24 08:30 06/17/24 11:23 Guaifenesin Syrup 200 Mg/10 Ml Udc PO 07/10/24 08:29 200 mg QID ANGELICA Administration Protocol Heparin Sodium (Porcine) 3,500 unit 06/07/24 18:06 06/17/24 12:43 Heparin Sod Inj 1000 Unit/Ml Vial 10 Ml INDWELLCAT 06/21/24 18:05 3,500 unit PRN PRN Administration DIALYSIS Heparin Sodium (Porcine) 3,500 unit 06/16/24 08:22 06/16/24 11:44 Heparin Sod Inj 1000 Unit/Ml Vial 10 Ml IV 06/30/24 08:21 3,500 unit X1 PRN Administration DIALYSIS Micafungin Sodium 100 mg/ 100 mls @ 100 mls/hr 06/10/24 13:56 06/17/24 09:23 Sodium Chloride IV 06/25/24 13:55 100 mls/hr QDAY ANGELICA Administration Albumin Human 25 gm in 100 mls @ 100 mls/hr 06/12/24 16:40 06/17/24 11:50 Albuminar-25 Ivpb IV 100 mls/hr PRN PRN Administration DIALYSIS Insulin Glargine 12 unit 05/25/24 09:00 06/17/24 09:14 Insulin Glargine (Lantus) 5 Unit/0.05 Ml (Per 5 Units) SC 06/24/24 08:59 Not Given QDAY [facility] Insulin Human Lispro 0 unit 06/16/24 07:30 06/17/24 17:46 Insulin Lispro (Admelog) 1 Unit/0.01 Ml Unit SC 07/16/24 07:29 Not Given AC ANGELICA Protocol Lidocaine 1 patch 05/30/24 09:16 06/17/24 09:23 Lidocaine 5% 1 Patch TOP 06/29/24 09:15 1 patch DAILY PRN Administration BACK PAIN Metoprolol Succinate 50 mg 06/12/24 15:36 06/17/24 09:41 Metoprolol Succinate Xl 25 Mg Tabcr PO 07/09/24 21:04 Not Given QDAY ANGELICA Metoprolol Tartrate 50 mg 06/14/24 08:37 Metoprolol Tartrate 25 Mg Tablet PO 07/12/24 08:59 QDAY PRN Tachycardia above 150 Midodrine 10 mg 06/17/24 14:00 06/17/24 13:50 Midodrine 5 Mg Tablet PO 07/17/24 13:59 10 mg TID ANGELICA Administration Mirtazapine 15 mg 06/13/24 21:00 06/16/24 21:17 Mirtazapine 15 Mg Tablet PO 07/13/24 20:59 15 mg HS ANGELICA Administration Pharmacy Consult 1 each 06/10/24 12:15 Vancomycin Pharmacy To Dose 1 Each Each IV 07/10/24 12:14 QDAY PRN CONSULT Polyethylene Glycol 17 gm 06/12/24 15:36 Polyethylene Glycol 17 Gm Packet PO 07/09/24 10:44 BID PRN constipation Protocol Sennosides 1 tab 06/09/24 10:45 06/17/24 09:22 Senna Tablet PO 07/09/24 10:44 1 tab QDAY ANGELICA Administration Protocol Sodium Chloride 3 ml 05/24/24 19:00 Sodium Chloride Rt Jimena 0.9% 3 Ml Nebu INH 06/23/24 18:59 PRN PRN SOLN Timolol Maleate 1 drop 05/28/24 18:15 06/17/24 09:24 Timolol Op Jimena 0.5% 5 Ml Btl BOTH EYES 06/27/24 18:14 1 drop DAILY ANGELICA Administration Plan Ms. Castellanos is a 69-year-old female with past medical history significant for hypertension, diabetes and history of gastric ulcers who presented to the ED on 05/13/2024 after she was found unconscious on the floor. Per chart reviewing prior to this unconsciousness patient was having abdominal pain and generalized weakness with diarrhea and shortness of breath for 2 days. Patient was admitted to the hospital for treatment and management of sepsis secondary to pneumonia. Patient was given 1 L normal saline and started on ceftriaxone and azithromycin. patient underwent ex lap surgery for perforated gastric ulcer. Patient remained intubated postop and was upgraded to the ICU. Patient continues to be on dialysis after downgrade, has BALAJI and accordion drain intact, completed bowel rest, was started on dysphagia 1 diet, surgery following case closely, will continue to monitor. #Perforated gastric ulcer #Hx of gastric ulcers #Pneumoperitoneum #Peritonitis secondary to perforated gastric ulcer - s/p ex lap #Abdominal Abscess, s/p percutaneous drainage x2- removed #Abdominal and pelvic abscesses #Leukocytosis-improving Patient found to have tender abdomen, rigidity in the epigastrium, chest x-ray showed elevation of hemidiaphragm, CT abdomen showed pneumoperitoneum, concern for perforated viscus, general surgeon Dr. Santana was consulted for emergency laparotomy and possible repair of perforated gastric ulcer. Repeat CT abd/pel on 05/20 revealed Pneumoperitoneum, orogastric tube in the stomach, mild free fluid adjacent to the stomach and anterior to the pancreas. s/p Exploratory laparotomy & repair of perforated gastric ulcer - 05/15. 06/01/24: Overnight there was concern of wound dehiscence. Discussed with general surgeon per surgery superior aspect of the wound was dehiscent after removal of aixa.Surgery removal of BALAJI drain on 06/01. Repeat CT on 06/01- More pronounced fluid collection in the left abdomen below the spleen, 8.9 x 6.4cm, free fluid in the abdomen and pelvis, and Ascites -Repeat CT A/P 06/05: abscess collection in the left lower abdomen has markedly decreased in size. the accordions drains have no output this morning. Repeat CT on 06/10 shows multiple abdominal and pelvic abscesses and pneumonia left base Plan: ?Patient completed antibiotic therapy, Meropenem, discontinued per ID Recommendations -percutaneous abscess drain catheter placed 06/02 ?disontinue with TPN 06/05 . Patient's diet is advanced to dysphagia 1 and have encouraged family members to bring home-cooked meals that patient would eat ?Continue dronabinol and mirtazapine as appetite stimulator -accordian drains removed on 06/05 -Patient is status post abdominal abscess drained on 06/12/2024 and the pelvic abscess is too small to be drained -Abscess culture from 05/25 and 06/02 grew edna albicans -[place] PRN for pain ordered -Patient completed 20 days of fluconazole and is now switched to micafungin started on 06/10- #Hospital aquired pneumonia #right pleural effusions -Pt has a productive cough, leukocytosis -Chest xray 06/15- Significant pneumonia right base, Small right pleural effusion plan: -Duonebs prn -mucolytics ordered -chest physiotherapy -continue zosyn (started 06/10- #New onset A-fib with RVR #NSTEMI type 2 -Likely secondary to shock in the setting of abdominal surgery -EKG findings consistent with A-fib -Was on Amiodarone 200 twice daily for new onset Afib, but as she was in AFib with RVR. Plan: ?Cardiology consulted, appreciate recs -Currently on oral amiodarone 200mg and metoprolol ? Resumed eliquis 5mg BID for anticoagulation #Protein Calorie malnutrition ?Patient noted to have poor appetite, is finishing less than 50% of her meals, was initially on TPN which is discontinued. -Added dronabinol and mirtazapine as appetite stimulator -Dysphagia 1 diet order, Pts family is encouraged to bring home cooked meals that pt mayb interested in #Acute tubular necrosis likely progressed to ESRD #Anuria -2/2 septic shock -Patient had small amount of urine production on 06/08 however this morning no urine yet -Baseline Cr appears to be 0.7 Plan: ?Patient underwent HD fluid removal and removed 2.1 L on 05/18 and 1.5 L on 05/19, 2L fluid removed 05/21, 2.5 L fluid removed on 05/22 , 3L fluid removed on 05/23, 3L fluid removed 05/25, 2L removed 05/26, 1 L removed 05/29, 1.5 L removed 05/30, 06/01 2L fluid removed. -permanent hemodialysis cath placed on 06/02/24 -Patient will require outpatient hemodialysis, dialysis chair secured by case management - Hemodialysis as per schedule of , , Wed -Started on midodrine 10 mg BID as patient has difficulty tolerating dialysis, blood pressure drops. -Renally dose medications and avoid nephrotoxic agents -repeat labs in am -Nephrology following #Acute exacerbation of HFpEF # HFpEF EF 55 to 60% -echo 05/16 -estimated EF of 55 to 60%, stage I diastolic dysfunction noted, Moderate to severe posterior MAC -Pt presented with SOB and 2+ edema in LE -elevated BNP from 304 --> 1110 -HD in the setting of anuria -holding guideline directed medical therapy due to shock, will resume when able -Continue dialysis, as per nephrology recommendations #Acute Hypoxic Respiratory failure #fluid overload in the setting of ATN likely multifactorial -2/2 to pulmonary edema in the setting of volume overload 2/2 ATN due to shock leading to oligoanuria versus bibasilar pneumonia -Further complicated by bilateral lung atelectasis in the setting of recent abdominal surgery and sedatives use -Patient was intubated and on mechanical ventilation (05/15) and extubated 05/18/2024, currently saturating 95-97 % on 5 L NC -Duonebs prn -chest physiotherapy ordered -mucolytics ordered #Acute Upper GI bleed - stable -Most likely secondary to perforated gastric ulcer -Patient had a single episode of black tarry stool today-likely setting of recent abdominal surgery -Continue iv Protonix. -Will monitor for alarm signs of active bleeding with melena or hematochezia #Hx of Diabetes Mellitus type II - A1C 6.3 % 05/21/2024 - Hold home glipizide and januvia - Plan: Continue to monitor blood sugars - Insulin sliding scale ordered with lantus 12 units #Hyperlipidemia -Unclear if patient takes any medications as a statin is not on list of home meds #Primary Hypertension Holding on resuming home blood pressure medicines at this time #Acute blood loss anemia, stable 2/2 perforated ulcer- S/P surgical repair Hgb stable 9.6 Hct 28.3 patient received 2 units of pRBC 05/18 due to acutely drop in Hgb below 7. No signs of active bleeding. Plan: -Continue to monitor daily CBC. transfuse for hemoglobin less than 7. # Acute encephalopathy-resolved -Likely multifactorial secondary to sepsis versus metabolic versus neurologic versus medication -Patient is awake and alert and follows commands. Patient is able to respond to yes or no questions verbally #Shock - resolved #Hypoosmolar Hyponatremia, resolved Disposition: Telemetry DVT prophylaxis: Eliquis 5 mg twice daily anticoagulation for A-fib GI prophylaxis:Protonix 40 BID Diet: Dysphagia 1 diet CODE STATUS: Full The plan of care was discussed with my attending physician DO Saw Pierson MD PGY2 This document was completed utilizing speech recognition software. Grammatical errors, random word insertions, pronoun errors, and incomplete sentences are an occasional consequence of this system due to software limitations, ambient noise, and hardware issues. Any formal questions or concerns about the content, text or information contained within the body of this dictation should be directly addressed to the provider for clarification. Attending Provider Attestation/Addendum I, Janel Tavares DO, attest that I was physically present for the donnelly portions of the service and evaluated the patient with the resident and I reviewed and discussed the case with the resident and agree with the resident's findings and plans of care as documented above Patient seen and evaluated this AM. Patient underwent dialysis this morning, but noted to have hypotension and dialysis was discontinued. BP improved once dialysis was discontinued. Patient remains alert and at baseline. Encourged PO intake. Anticipate DC on Wednesday to SNF once bed available.
--- NOTE | 2024-06-17 18:22 | PC.NURSE ---
Patient having lots of wheezing, Dr. Quiñonez notified
--- NOTE | 2024-06-17 20:00 | PD.IMPROG ---
Documentation for date of: 06/18/24 Subjective Subjective Interval history: Patient seen and examined at the bedside. Patient did have an rapid response today during dialysis with hypotension dialysis was held. Nephrology team following and will plan the next session of dialysis. Patient apparently did not receive her metoprolol today and amiodarone. Recommend to continue with amiodarone for now and hold off on the metoprolol. Telemetry reviewed and heart rate is optimally controlled with 101-120 bpm. Patient has significant wheezing during the examination and also patient is active infection for which she is on antibiotics as well as antifungals since the surgery which is contributing to the A-fib with RVR. Primary team planning to discharge the patient when stable and awaiting SNF placement. Exam Vital Signs Temp Pulse Resp BP Pulse Ox O2 Del Method O2 Flow Rate 97.4 F 87 18 124/70 100 Nasal Cannula 2 06/18/24 16:00 06/18/24 16:00 06/18/24 16:00 06/18/24 16:00 06/18/24 16:00 06/18/24 16:00 06/18/24 16:00 FiO2 4 06/18/24 16:00 Narrative Exam General: AAOx3, obese female, patient in dialysis bed HEENT: Moist mucous membranes, conjunctiva clear, EOMI, PERRLA, Cardiovascular: S1, S2, radial pulses +2 bilat, irregularly irregular rhythm, tachycardic Pulmonary: Wheezing heard in lungs bilat, congestion and cough GI: Bandages present, no ascites, minimal pain to palpation of the abdomen Extremities: SCDs present, pitting edema in LE +1 bilat Neuro: AAOx3, no focal motor or sensory deficits in the UE or LE bilat Psych: Cooperative. Objective Labs 06/18/24 05:50 06/18/24 05:50 Labs: Laboratory Results - last 24 hr 06/18/24 05:50 WBC 8.7 RBC 2.85 L Hgb 7.7 L Hct 24.3 L MCV 85 MCH 27.0 MCHC 31.7 RDW Std Deviation 64.3 H Plt Count 230 Neut % (Auto) 43 Lymph % (Auto) 37 [place] % (Auto) 11 Eos % (Auto) 6 Baso % (Auto) 1 Neut # (Auto) 3.8 Lymph # (Auto) 3.2 [place] # (Auto) 0.9 H Eos # (Auto) 0.5 Baso # (Auto) 0.1 Immature Gran # (Auto) 0.15 H Absolute Nucleated RBC 0.22 H Immature Gran % 2 H Nucleated RBC % 3 H Sodium 134 L Potassium 3.6 Chloride 94 L Carbon Dioxide 23.9 Anion Gap 16 BUN 51 H Creatinine 5.4 H* D Estim Creat Clear Calc 8.3 L eGFR 8 L* BUN/Creatinine Ratio 9 L Glucose 94 Calculated Osmolality 281 Calcium 9.6 Corrected Calcium 9.8 Phosphorus 7.6 H Magnesium 2.2 Total Bilirubin 0.7 AST 35 H ALT < 7 L Alkaline Phosphatase 117 H Total Protein 7.5 Albumin 3.8 Globulin 3.7 H Albumin/Globulin Ratio 1.0 L ABG Interpretation ABG results: 05/13/24 05/15/24 05/15/24 08:29 15:28 16:03 ABG pH 7.39 7.05 L* D 7.17 L* D ABG pCO2 31 L 63 H D 45 D ABG pO2 78 L 38 L* D 84 D ABG HCO3 19 L 18 L 16 L ABG O2 Saturation 96 59 L 96 ABG Base Excess -5 L -12 L -11 L VBG pH VBG pCO2 VBG pO2 VBG Base Excess 05/16/24 05/17/24 05/18/24 04:38 04:03 04:20 ABG pH 7.28 L D 7.38 D 7.49 H D ABG pCO2 34 D 28 L 30 L ABG pO2 96 85 66 L ABG HCO3 16 L 17 L 23 ABG O2 Saturation 98 97 94 ABG Base Excess -10 L -8 L 0 VBG pH VBG pCO2 VBG pO2 VBG Base Excess 05/19/24 05/20/24 05/21/24 09:05 06:05 22:35 ABG pH 7.30 L D 7.41 D ABG pCO2 49 H D 42 ABG pO2 63 L 63 L ABG HCO3 24 27 H ABG O2 Saturation 91 93 ABG Base Excess -3 2 VBG pH 7.31 L VBG pCO2 50 VBG pO2 39 VBG Base Excess -2 05/26/24 05/29/24 04:17 12:28 ABG pH 7.38 7.42 ABG pCO2 42 35 ABG pO2 81 L 67 L ABG HCO3 25 23 ABG O2 Saturation 97 95 ABG Base Excess 0 -2 VBG pH VBG pCO2 VBG pO2 VBG Base Excess Assessment & Plan A&P Narrative Ms. Castellanos is a 69-year-old female with past medical history significant for hypertension, diabetes and history of gastric ulcers who presented to the ED on 05/13/2024 after she was found unconscious on the floor. Per chart reviewing prior to this unconsciousness patient was having abdominal pain and generalized weakness with diarrhea and shortness of breath for 2 days. Patient was admitted to the hospital for treatment and management of sepsis secondary to pneumonia. Patient was given 1 L normal saline and started on ceftriaxone and azithromycin. patient underwent ex lap surgery for perforated gastric ulcer. Patient remained intubated postop and was upgraded to the ICU. Patient continues to be on dialysis after downgrade, has BALAJI and accordion drain intact, completed bowel rest, was started on dysphagia 1 diet, surgery following case closely, will continue to monitor. Patient continue with dialysis, white count coming down, may want to reconsider adjusting antibiotics. Follow-up with ID recommendations. #New onset A-fib with RVR, improving, rate controlled New onset of Afib, likely related to septic shock requiring pressor support and increased demand from perforated ulcer complicated by abdominal abscesses Pt appears to still be in A-fib, rate controlled, 90s to mid 100s Previous EKG shows a-fib w/RVR CHADVASC: 5 Pts 7.2 % stroke risk per year HAS-BLED score: 3, high risk of major bleeding Patient continues to be rate controlled, rate in the 90s Plan: ?Continue with Oral Amio 200 mg BID ?Continue with Eliquis 5 mg twice daily 06/17/2024: Patient did have an rapid response today during dialysis with hypotension dialysis was held. Nephrology team following and will plan the next session of dialysis. Patient apparently did not receive her metoprolol today and amiodarone. Recommend to continue with amiodarone for now and hold off on the metoprolol. Telemetry reviewed and heart rate is optimally controlled with 101-120 bpm. Patient has significant wheezing during the examination and also patient is active infection for which she is on antibiotics as well as antifungals since the surgery which is contributing to the A-fib with RVR. Primary team planning to discharge the patient when stable and awaiting SNF placement. #Acute exacerbation of HFpEF #HFpEF EF 55 to 60% #History of primary hypertension -Echo 05/16/2024 -estimated EF of 55 to 60%, stage I diastolic dysfunction noted, Moderate to severe posterior MAC Pt has new onset of ESRD requiring HD, requiring midodrine 10 mg QID to tolerate HD Not resuming home amlodipine at this time due to patient being A-fib and blood pressure eventually be controlled with beta-christian We recommend to give midodrine 5 to 10 mg 15 to 30 minutes before dialysis, can give additional 2.5 to 5 mg after dialysis as long as 3 hours after predialysis dose Half-life of midodrine is 9 to 10 hours and patient with CKD something to keep in mind Patient to continue with dialysis as electrolytes are abnormal including phosphorus. Plan: ?Resume GDMT as able, metoprolol on board right now, as above ?Fluid restriction ?Daily weights ?Strict ins and outs ?Keep potassium and magnesium above 4 and 2 respectively #Hx of Diabetes Mellitus type II Most recent A1c 05/21/2024: 6.2 Plan: Management by primary team #Perforated gastric ulcer #Pneumoperitoneum #Peritonitis secondary to perforated gastric ulcer #Abdominal Abscess, s/p percutaneous drainage x3 Patient found to have tender abdomen, rigidity in the epigastrium, chest x-ray showed elevation of hemidiaphragm, CT abdomen showed pneumoperitoneum, concern for perforated viscus, general surgeon Dr. Santana was consulted for emergency laparotomy and possible repair of perforated gastric ulcer. Repeat CT abd/pel on 05/20 revealed Pneumoperitoneum, orogastric tube in the stomach, mild free fluid adjacent to the stomach and anterior to the pancreas. s/p Exploratory laparotomy & repair of perforated gastric ulcer - 05/15. 06/01/24: Overnight there was concern of wound dehiscence. Discussed with general surgeon per surgery superior aspect of the wound was dehiscent after removal of aixa.Surgery removal of BALAJI drain on 06/01. Repeat CT on 06/01- More pronounced fluid collection in the left abdomen below the spleen, 8.9 x 6.4cm, free fluid in the abdomen and pelvis, and Ascites -Abscess culture from 05/25 grew edna albicans ?Repeat CT abdomen pelvis shows abscess collection lower left abdomen has markedly decreased in size and the accordion drains have no output this morning Plan: Management by primary hospitalist team #Acute blood loss anemia, stable Likely related to perforated ulcer Hgb stable ~7.7 Plan: Management by primary hospitalist team #Acute tubular necrosis, requiring hemodialysis #Acute Hypoxic Respiratory failure #Acute Upper GI bleed - stable #Hyperlipidemia #Acute blood loss anemia, stable #Acute encephalopathy-resolved #Septic Shock - resolved #Hypoosmolar Hyponatremia, resolved Management of rest of the medical conditions as per primary team and other consultants. Thank you for the consult and allowing me to participate in the care of the patient. Cardiology will continue to follow. Jalen Davis M.D. Interventional Cardiology Time Spent With Patient Time: Total time spent is greater than 50% in coordination of care (as documented) at patient's floor/unit and/or counseling patient:
[2024-06-17] MEDS: AMIODARONE HCL 200 MG TABLET PO (20:57)
[2024-06-17] MEDS: MIRTAZAPINE 15 MG TABLET PO (20:58)
[2024-06-17] MEDS: ALBUTEROL/IPRATROPIUM (Duoneb) RT SOL 3 ML NEBU INH (21:07)
[2024-06-17] MEDS: ACETAMINOPHEN 325 MG TABLET 650 MG PO (23:57)
[2024-06-18] VITALS (17 sets, daily range): BP systolic 93–149; BP diastolic 61–85; PULSE 79–124; RESP 18–30; TEMP 36.3–37; O2SAT 95–100; BMI 34.0
[2024-06-18] MEDS: ALBUTEROL/IPRATROPIUM (Duoneb) RT SOL 3 ML NEBU INH ×4 (04:43→23:11)
[2024-06-18] MEDS: guaiFENesin SYRUP 200 MG/10 ML UDC PO ×4 (05:36→20:41)
[2024-06-18 06:33] LABS: Basophils # (Auto) 0.1 Thou/mm3 (0.0-0.2); Basophils % (Auto) 1 % (0-2.5); Eosinophils # (Auto) 0.5 Thou/mm3 (0.0-0.5); Eosinophils % (Auto) 6 % (0-10); Hematocrit 24.3 % (36.0-46.0); Immature Granulocytes % (Auto) 2 % (0-0); Immature Granulocytes Auto 0.15 Thou/mm3 (0.00-0.00); Lymphocytes # (Auto) 3.2 Thou/mm3 (1.0-4.8); Lymphocytes % (Auto) 37 % (10-50); Mean Corpuscular HGB Conc 31.7 g/dl (31.0-37.0); Mean Corpuscular Volume 85 fL (80-100); Monocytes # (Auto) 0.9 Thou/mm3 (0.0-0.8); Monocytes % (Auto) 11 % (0-12); Neutrophils # (Auto) 3.8 Thou/mm3 (1.8-7.7); Neutrophils % (Auto) 43 % (37-80); Nucleated Red Blood Cell # 0.22 Thou/mm3 (0.00-0.00); Nucleated Red Blood Cell % 3 /100 WBC (0); Platelet Count 230 Thou/mm3 (140-440); RDW Standard Deviation 64.3 fL (36.4-46.3); Red Blood Count 2.85 Miln/mm3 (4.00-5.20); White Blood Count 8.7 Thou/mm3 (3.6-11.0)
[2024-06-18 06:37] LABS: Hemoglobin 7.7 g/dL (12.0-16.0)
[2024-06-18 07:03] LABS: Alanine Aminotransferase < 7 U/L (10-49); Albumin, Serum 3.8 gm/dL (3.4-4.8); Alkaline Phosphatase 117 U/L (46-116); Anion Gap 16 (7-16); Aspartate Amino Transferase 35 U/L (0-34); BUN/Creatinine Ratio 9 Ratio (12-20); Bilirubin,Total 0.7 mg/dL (0.3-1.2); Blood Urea Nitrogen 51 mg/dL (9-23); Calcium 9.6 mg/dL (8.3-10.6); Calcium (Corrected) 9.8 mg/dL (8.5-10.1); Carbon Dioxide 23.9 mMol/L (20.0-31.0); Chloride 94 mMol/L (98-107); Creatinine (Component) 5.4 mg/dL (0.6-1.3); Estimated Creatinine Clearance 8.3 mL/min (>60); Globulin 3.7 gm/dL (2.3-3.5); Glucose 94 mg/dL (74-106); Magnesium 2.2 mg/dL (1.6-2.6); Osmolality,Calculated 281 (275-295); Phosphorous 7.6 mg/dL (2.4-5.1); Potassium 3.6 mMol/L (3.4-5.1); Sodium 134 mMol/L (136-145); Total Protein 7.5 gm/dL (5.7-8.2); eGFR 8 See Note
--- NOTE | 2024-06-18 07:48 | ESPR_ITS ---
Documentation for date of: 06/18/24 Subjective Subjective Interval history: Interval history: Mr. Castellanos is a [id number] with past medical history of prediabetes, CKD, hypertension, history of ulcers who was admitted to [facility]3] for sepsis secondary to pneumonia and acute metabolic encephalopathy. Patient was BIBA to the ED after being found unconscious on the floor. According to the son on admission patient's daughter found the patient at 3 AM passed out on the floor and unresponsive. Family is unaware along the patient was on the floor. 2 days ago patient started to develop abdominal pain and weakness all over her body associated with some diarrhea and shortness of breath. Patient's abdominal pain comes and goes from right side to left side of the abdomen. ED course patient was hypertensive tachycardic tachypneic and was saturating 92% on 5 L nasal cannula ED labs significant for WBCs 24.3, bicarb 19.6, glucose 259, lactic acid 2.2, BNP 304, troponin 0.09. 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, colonic diverticulosis, Cervical spine CT showed 3 mm radiolucency in C3 vertebral body Chest CTA showed mild aneurysmal dilatation ascending thoracic aorta AP dimension 4.3 cm and pulmonary artery hypertension with moderate vascular congestion Face CT shows no acute facial fracture, Lumbar spine CT shows no acute lumbar fracture severe acquired spinal stenosis L4-L5, Thoracic spine CT showed no acute fracture Brain MRI with MRA showed equally focal restricted diffusion brainstem medullary level significant stenosis of right P1 P2 segment posterior cerebral artery Postadmission, cardiology was consulted on admission because of elevated troponins, suspicion of NSTEMI type II, patient has acute decompensated heart failure per cardiology evaluation, neurology consulted because of patient's acute metabolic encephalopathy and GI was consulted for suspicion of GI bleed. Eventually on 05/15 rapid response was called for worsening chest pain, patient's map was consistently in 70s, was tachycardic tachypneic. CT angiogram showed pneumoperitoneum multiple air droplets adjacent to and within wall of stomach with suspicion of gastric perforation. General surgery was consulted for emergency surgery and patient had exploratory laparotomy with repair of perforated gastric ulcer with an omental patch. Patient was upgraded to ICU postop for further management patient currently on Levophed and vasopressor due to distributive shock, currently sedated and intubated on mechanical ventilation. Nephrology consulted due to concern of ADILSON. 06/10/2024 patient currently seen in telemetry. Patient complaining of abdominal pain. Scheduled for dialysis today. Although did have some trouble with catheter before. tPA was placed. Catheter could not be exchanged yesterday. Will monitor catheter function closely. Unfortunately IR not available until Wednesday. 06/11/2024 patient currently seen in telemetry. Sick looking. Did receive dialysis yesterday. Still having some abdominal discomfort.WBC 28.7, hemoglobin 7.8, platelets 261. Sodium 134, potassium 4.8, BUN 53, creatinine 5.6, magnesium 2.4, LFTs normal, albumin 4.0 chest x-ray showed pneumonia/mild heart failure. CT abdomen repeat showed multiple abdominal and pelvic abscesses. Prognosis remains guarded. 06/17/2024 patient supposed to be discharged to rehab today. Alert and awake. Daughter at bedside. Outpatient dialysis TTS schedule done. Try to do short run of dialysis today however patient had an significant hypotension I had to stop dialysis. After giving 200 cc fluid her blood pressure returned back to normal. Discharge planning per primary team. 06/18/2024 patient currently seen in telemetry. She is more alert and awake today. Denies any chest pain. Still having some cough and shortness of breath with wheezing. Significant functional decline. Denies any abdominal pain today. Labs, medications reviewed. She did have a hypotensive episode at dialysis yesterday and currently on midodrine. Discharge planning to rehab once stable. plan of care discussed with primary team. Review of Systems Review of Systems Narrative Review of Systems: Denies any chest pain. ++ Cough, shortness of breath with wheezing-much better c/o mild Abdominal pain. No nausea, vomiting. Significant functional decline. Exam Vital Signs Temp Pulse Resp BP Pulse Ox O2 Del Method O2 Flow Rate 36.3 C 100 20 119/63 100 Nasal Cannula 3 06/18/24 04:00 06/18/24 07:08 06/18/24 07:08 06/18/24 05:32 06/18/24 07:08 06/18/24 04:00 06/18/24 07:08 FiO2 4 06/17/24 16:00 Narrative Exam GENERAL APPEARANCE: Patient currently seen in telemetry. NECK: Neck supple, no JVD or bruit CARDIOVASCULAR: Heart regular, no murmurs LUNGS/CHEST: few rhonchi and wheezing noted ABDOMEN: Mild discomfort in the lower abdomen s/p surgery EXTREMITIES: 2+ edema in the lower extremities SKIN: Abdominal surgery MUSCULOSKELETAL: In bed NEUROLOGICAL : Alert and awake. Objective Labs 06/18/24 05:50 06/18/24 05:50 Labs: Laboratory Results - last 24 hr 06/18/24 05:50 WBC 8.7 RBC 2.85 L Hgb 7.7 L Hct 24.3 L MCV 85 MCH 27.0 MCHC 31.7 RDW Std Deviation 64.3 H Plt Count 230 Neut % (Auto) 43 Lymph % (Auto) 37 [place] % (Auto) 11 Eos % (Auto) 6 Baso % (Auto) 1 Neut # (Auto) 3.8 Lymph # (Auto) 3.2 [place] # (Auto) 0.9 H Eos # (Auto) 0.5 Baso # (Auto) 0.1 Immature Gran # (Auto) 0.15 H Absolute Nucleated RBC 0.22 H Immature Gran % 2 H Nucleated RBC % 3 H Sodium 134 L Potassium 3.6 Chloride 94 L Carbon Dioxide 23.9 Anion Gap 16 BUN 51 H Creatinine 5.4 H* D Estim Creat Clear Calc 8.3 L eGFR 8 L* BUN/Creatinine Ratio 9 L Glucose 94 Calculated Osmolality 281 Calcium 9.6 Corrected Calcium 9.8 Phosphorus 7.6 H Magnesium 2.2 Total Bilirubin 0.7 AST 35 H ALT < 7 L Alkaline Phosphatase 117 H Total Protein 7.5 Albumin 3.8 Globulin 3.7 H Albumin/Globulin Ratio 1.0 L ABG Interpretation ABG results: 05/13/24 05/15/24 05/15/24 08:29 15:28 16:03 ABG pH 7.39 7.05 L* D 7.17 L* D ABG pCO2 31 L 63 H D 45 D ABG pO2 78 L 38 L* D 84 D ABG HCO3 19 L 18 L 16 L ABG O2 Saturation 96 59 L 96 ABG Base Excess -5 L -12 L -11 L VBG pH VBG pCO2 VBG pO2 VBG Base Excess 05/16/24 05/17/24 05/18/24 04:38 04:03 04:20 ABG pH 7.28 L D 7.38 D 7.49 H D ABG pCO2 34 D 28 L 30 L ABG pO2 96 85 66 L ABG HCO3 16 L 17 L 23 ABG O2 Saturation 98 97 94 ABG Base Excess -10 L -8 L 0 VBG pH VBG pCO2 VBG pO2 VBG Base Excess 05/19/24 05/20/24 05/21/24 09:05 06:05 22:35 ABG pH 7.30 L D 7.41 D ABG pCO2 49 H D 42 ABG pO2 63 L 63 L ABG HCO3 24 27 H ABG O2 Saturation 91 93 ABG Base Excess -3 2 VBG pH 7.31 L VBG pCO2 50 VBG pO2 39 VBG Base Excess -2 05/26/24 05/29/24 04:17 12:28 ABG pH 7.38 7.42 ABG pCO2 42 35 ABG pO2 81 L 67 L ABG HCO3 25 23 ABG O2 Saturation 97 95 ABG Base Excess 0 -2 VBG pH VBG pCO2 VBG pO2 VBG Base Excess Assessment & Plan Additional Assessment & Plan Additional Plan: Mr. Castellanos is a [id number] with past medical history of prediabetes, CKD, hypertension, history of ulcers who was admitted to [facility] ([facility]3] for sepsis secondary to pneumonia and acute metabolic encephalopathy. Patient is currently sedated intubated in ICU status post exploratory laparotomy with repair of perforated gastric ulcer with an omental patch. Nephrology consulted for acute kidney injury. #Acute kidney injury #Acute Tubular Necrosis 2/2 shock #Anasarca Patient currentlyin ATN probably ischemic from fluctuations in blood pressure and underlying shock- started her on dialysis. Patient has left [facility] Patient had dialysis yesterday. However had to be stopped due to low blood pressure at the end. Currently on midodrine. Next dialysis will be Wednesday. Plan discussed with primary team--discharge planning per primary team. #Acute ischemic stroke #Acute decompensated HF # afib #Hyperlipidemia #Primary Hypertension -patient currently on metoprolol and midodrine. #Acute Hypoxic Respiratory failure #Peritonitis secondary to perforated gastric ulcer- s/p sx, drains removed #Acute Upper GI bleed #Diabetes Mellitus type II #Acute anemia All above problems per primary team. Prognosis remains guarded.
[2024-06-18] MEDS: APIXABAN 2.5 MG TABLET 5 MG PO ×2 (09:55→20:41)
[2024-06-18] MEDS: droNABinol 2.5 MG CAPSULE 5 MG PO ×2 (09:55→17:02)
[2024-06-18] MEDS: SENNA TABLET 1 TAB PO (09:56)
[2024-06-18] MEDS: MICAFUNGIN SODIUM INJ 100 MG in SODIUM CHLORIDE 0.9% 100 ML IV (09:56)
[2024-06-18] MEDS: TIMOLOL OP SOL 0.5% 5 ML BTL 1 DROP BOTH EYES (10:00)
[2024-06-18] MEDS: AMIODARONE HCL 200 MG TABLET PO ×2 (10:00→20:41)
[2024-06-18] MEDS: POTASSIUM CHL 10 mEq IVPB 10 MEQ/100 ML BAG 100 MEQ IV ×2 (11:27→12:27)
--- NOTE | 2024-06-18 12:08 | PCS.ST ---
continue D1 and tsp/cup sips thin liquids. Recommend modified barium swallow study Axel
--- NOTE | 2024-06-18 12:19 | PD.IMPROG ---
Documentation for date of: 06/18/24 Subjective Subjective Interval history: Poor p.o. intake remains one of the issues Hemoglobin hematocrit 7.7 and 24.3 Encourage p.o. intake Exam Vital Signs Temp Pulse Resp BP Pulse Ox O2 Del Method O2 Flow Rate 97.6 F 79 20 93/61 99 Nasal Cannula 2 06/18/24 08:00 06/18/24 11:24 06/18/24 08:00 06/18/24 11:24 06/18/24 08:00 06/18/24 08:00 06/18/24 08:00 FiO2 4 06/18/24 08:00 Objective Labs 06/18/24 05:50 06/18/24 05:50 Labs: Laboratory Results - last 24 hr 06/18/24 05:50 WBC 8.7 RBC 2.85 L Hgb 7.7 L Hct 24.3 L MCV 85 MCH 27.0 MCHC 31.7 RDW Std Deviation 64.3 H Plt Count 230 Neut % (Auto) 43 Lymph % (Auto) 37 [place] % (Auto) 11 Eos % (Auto) 6 Baso % (Auto) 1 Neut # (Auto) 3.8 Lymph # (Auto) 3.2 [place] # (Auto) 0.9 H Eos # (Auto) 0.5 Baso # (Auto) 0.1 Immature Gran # (Auto) 0.15 H Absolute Nucleated RBC 0.22 H Immature Gran % 2 H Nucleated RBC % 3 H Sodium 134 L Potassium 3.6 Chloride 94 L Carbon Dioxide 23.9 Anion Gap 16 BUN 51 H Creatinine 5.4 H* D Estim Creat Clear Calc 8.3 L eGFR 8 L* BUN/Creatinine Ratio 9 L Glucose 94 Calculated Osmolality 281 Calcium 9.6 Corrected Calcium 9.8 Phosphorus 7.6 H Magnesium 2.2 Total Bilirubin 0.7 AST 35 H ALT < 7 L Alkaline Phosphatase 117 H Total Protein 7.5 Albumin 3.8 Globulin 3.7 H Albumin/Globulin Ratio 1.0 L Impressions Impression: # Intra-abdominal abscesses postsurgery requiring IR drainage in the setting of perforated gastric ulcer # End-stage renal disease on hemodialysis # Poor p.o. intake Encourage p.o. intake ABG Interpretation ABG results: 05/13/24 05/15/24 05/15/24 08:29 15:28 16:03 ABG pH 7.39 7.05 L* D 7.17 L* D ABG pCO2 31 L 63 H D 45 D ABG pO2 78 L 38 L* D 84 D ABG HCO3 19 L 18 L 16 L ABG O2 Saturation 96 59 L 96 ABG Base Excess -5 L -12 L -11 L VBG pH VBG pCO2 VBG pO2 VBG Base Excess 05/16/24 05/17/24 05/18/24 04:38 04:03 04:20 ABG pH 7.28 L D 7.38 D 7.49 H D ABG pCO2 34 D 28 L 30 L ABG pO2 96 85 66 L ABG HCO3 16 L 17 L 23 ABG O2 Saturation 98 97 94 ABG Base Excess -10 L -8 L 0 VBG pH VBG pCO2 VBG pO2 VBG Base Excess 05/19/24 05/20/24 05/21/24 09:05 06:05 22:35 ABG pH 7.30 L D 7.41 D ABG pCO2 49 H D 42 ABG pO2 63 L 63 L ABG HCO3 24 27 H ABG O2 Saturation 91 93 ABG Base Excess -3 2 VBG pH 7.31 L VBG pCO2 50 VBG pO2 39 VBG Base Excess -2 05/26/24 05/29/24 04:17 12:28 ABG pH 7.38 7.42 ABG pCO2 42 35 ABG pO2 81 L 67 L ABG HCO3 25 23 ABG O2 Saturation 97 95 ABG Base Excess 0 -2 VBG pH VBG pCO2 VBG pO2 VBG Base Excess Assessment & Plan A&P Narrative abd abscess, stain neg. later grew c albicans so on flucon now here since 05/13.usual rx for most things is 7d. left on merrem thru weekend but collection in abd eventually grew a yeast, so ok for another 7d rx will see again if requested Time Spent With Patient Time: Total time spent is greater than 50% in coordination of care (as documented) at patient's floor/unit and/or counseling patient:
--- NOTE | 2024-06-18 12:39 | ESPR_ITS ---
Documentation for date of: 06/18/24 Subjective Subjective Interval history: 06/18: no acute overnight events. Pt is seen and examined at bedside this morning, patient is much more alert and awake than her usual she is talking more patient denies any chest pain or abdominal pain. Patient is attempting to put more effort to cough up phlegm. she is still wheezing. She is able to consume oral diet, family brought food from home. Patient states that she did not like the hospital food. patient remains afebrile. Patient was awaiting to be cleared for discharge to SNF, however she lost her bed there so we will continue to wait for SNF placement. Otherwise patient is stable and has no complaints. Exam Vital Signs Temp Pulse Resp BP Pulse Ox O2 Del Method O2 Flow Rate 97.6 F 79 20 93/61 99 Nasal Cannula 2 06/18/24 08:00 06/18/24 11:24 06/18/24 08:00 06/18/24 11:24 06/18/24 08:00 06/18/24 08:00 06/18/24 08:00 FiO2 4 06/18/24 08:00 Narrative Exam GENERAL: A&Ox3 . Awake and alert, Pt. is on 1L oxygen via nasal cannula NEURO: no focal neurological deficits HEENT: Atraumatic, Normocephalic. mucous membranes moist. Eyes open, symmetrical, & clear HEART: Normal Heart Sounds LUNGS: wheezing bilaterally and crackles on auscultation ABDOMEN: soft, non-distended, non-tender, bowel sounds heard, no guarding or rebound tenderness, incision site is clean. SKIN: No Rash or ecchymoses EXTREMITIES: trace pitting edema bilaterally on LE, tenderness, able to move all 4 extremities, pedal pulses palpated Objective Labs 06/18/24 05:50 06/19/24 03:57 Labs: Laboratory Results - last 24 hr 06/18/24 05:50 WBC 8.7 RBC 2.85 L Hgb 7.7 L Hct 24.3 L MCV 85 MCH 27.0 MCHC 31.7 RDW Std Deviation 64.3 H Plt Count 230 Neut % (Auto) 43 Lymph % (Auto) 37 [place] % (Auto) 11 Eos % (Auto) 6 Baso % (Auto) 1 Neut # (Auto) 3.8 Lymph # (Auto) 3.2 [place] # (Auto) 0.9 H Eos # (Auto) 0.5 Baso # (Auto) 0.1 Immature Gran # (Auto) 0.15 H Absolute Nucleated RBC 0.22 H Immature Gran % 2 H Nucleated RBC % 3 H Sodium 134 L Potassium 3.6 Chloride 94 L Carbon Dioxide 23.9 Anion Gap 16 BUN 51 H Creatinine 5.4 H* D Estim Creat Clear Calc 8.3 L eGFR 8 L* BUN/Creatinine Ratio 9 L Glucose 94 Calculated Osmolality 281 Calcium 9.6 Corrected Calcium 9.8 Phosphorus 7.6 H Magnesium 2.2 Total Bilirubin 0.7 AST 35 H ALT < 7 L Alkaline Phosphatase 117 H Total Protein 7.5 Albumin 3.8 Globulin 3.7 H Albumin/Globulin Ratio 1.0 L ABG Interpretation ABG results: 05/13/24 05/15/24 05/15/24 08:29 15:28 16:03 ABG pH 7.39 7.05 L* D 7.17 L* D ABG pCO2 31 L 63 H D 45 D ABG pO2 78 L 38 L* D 84 D ABG HCO3 19 L 18 L 16 L ABG O2 Saturation 96 59 L 96 ABG Base Excess -5 L -12 L -11 L VBG pH VBG pCO2 VBG pO2 VBG Base Excess 05/16/24 05/17/24 05/18/24 04:38 04:03 04:20 ABG pH 7.28 L D 7.38 D 7.49 H D ABG pCO2 34 D 28 L 30 L ABG pO2 96 85 66 L ABG HCO3 16 L 17 L 23 ABG O2 Saturation 98 97 94 ABG Base Excess -10 L -8 L 0 VBG pH VBG pCO2 VBG pO2 VBG Base Excess 05/19/24 05/20/24 05/21/24 09:05 06:05 22:35 ABG pH 7.30 L D 7.41 D ABG pCO2 49 H D 42 ABG pO2 63 L 63 L ABG HCO3 24 27 H ABG O2 Saturation 91 93 ABG Base Excess -3 2 VBG pH 7.31 L VBG pCO2 50 VBG pO2 39 VBG Base Excess -2 05/26/24 05/29/24 04:17 12:28 ABG pH 7.38 7.42 ABG pCO2 42 35 ABG pO2 81 L 67 L ABG HCO3 25 23 ABG O2 Saturation 97 95 ABG Base Excess 0 -2 VBG pH VBG pCO2 VBG pO2 VBG Base Excess Quality Measures Quality Measures none Advance care planning discussed with:: patient and child Assessment & Plan Assessment Current Active Medications: Generic Name Dose Route Start Last Admin Trade Name Freq PRN Reason Stop Dose Admin Acetaminophen 650 mg 06/09/24 14:11 06/17/24 23:57 Acetaminophen 325 Mg Tablet PO 07/09/24 14:10 650 mg Q6HR PRN Administration Fever >101 and pain 1-3 Albuterol/Ipratropium 3 ml 05/27/24 18:08 06/18/24 04:43 Albuterol/Ipratropium (Duoneb) Rt Jimena 3 Ml Nebu INH 06/26/24 18:07 3 ml Q2HR PRN Administration SHORTNESS OF BREATH OR WHEEZE Amiodarone HCl 200 mg 05/29/24 15:00 06/18/24 10:00 Amiodarone Hcl 200 Mg Tablet PO 06/28/24 14:59 200 mg BID ANGELICA Administration Apixaban 5 mg 06/13/24 21:00 06/18/24 09:55 Apixaban 2.5 Mg Tablet PO 07/13/24 20:59 5 mg BID ANGELICA Administration Benzocaine 1 lozenge 05/31/24 11:53 06/09/24 23:07 Benzocaine/Menthol 1 Lozenge PO 06/30/24 11:52 1 lozenge Q4HR PRN Administration Sore throat Dextrose 25 ml 05/24/24 15:43 Dextrose 50%-Water Inj 50 Ml Syringe IV 06/23/24 15:42 Q15MIN PRN BG 50-70 responsive npo pt Dextrose 50 ml 05/24/24 15:43 Dextrose 50%-Water Inj 50 Ml Syringe IV 06/23/24 15:42 Q15MIN PRN BG <50 OR BG <70 & pt unresponsive Dronabinol 5 mg 06/07/24 10:40 06/18/24 09:55 Dronabinol 2.5 Mg Capsule PO 07/07/24 10:39 5 mg BIDAC ANGELICA Administration Glucagon 1 mg 05/24/24 15:43 Glucagon Inj 1 Mg Vial IM Q15MIN PRN BG <70, and no IV access Guaifenesin 200 mg 06/10/24 08:30 06/18/24 12:28 Guaifenesin Syrup 200 Mg/10 Ml Udc PO 07/10/24 08:29 200 mg QID [facility] Administration Protocol Heparin Sodium (Porcine) 3,500 unit 06/16/24 08:22 06/16/24 11:44 Heparin Sod Inj 1000 Unit/Ml Vial 10 Ml IV 06/30/24 08:21 3,500 unit X1 PRN Administration DIALYSIS Micafungin Sodium 100 mg/ 100 mls @ 100 mls/hr 06/10/24 13:56 06/18/24 09:56 Sodium Chloride IV 06/25/24 13:55 100 mls/hr QDAY [facility] Administration Albumin Human 25 gm in 100 mls @ 100 mls/hr 06/12/24 16:40 06/17/24 11:50 Albuminar-25 Ivpb IV 100 mls/hr PRN PRN Administration DIALYSIS Insulin Glargine 12 unit 05/25/24 09:00 06/18/24 10:01 Insulin Glargine (Lantus) 5 Unit/0.05 Ml (Per 5 Units) SC 06/24/24 08:59 Not Given QDAY [facility] Insulin Human Lispro 0 unit 06/16/24 07:30 06/18/24 11:35 Insulin Lispro (Admelog) 1 Unit/0.01 Ml Unit SC 07/16/24 07:29 Not Given [facility] Protocol Lidocaine 1 patch 05/30/24 09:16 06/17/24 09:23 Lidocaine 5% 1 Patch TOP 06/29/24 09:15 1 patch DAILY PRN Administration BACK PAIN Metoprolol Tartrate 50 mg 06/14/24 08:37 Metoprolol Tartrate 25 Mg Tablet PO 07/12/24 08:59 QDAY PRN Tachycardia above 150 Metoprolol Tartrate 50 mg 06/18/24 10:00 06/18/24 11:24 Metoprolol Tartrate 25 Mg Tablet PO 07/18/24 09:59 Not Given DAILY [facility] Midodrine 10 mg 06/17/24 14:00 06/18/24 05:32 Midodrine 5 Mg Tablet PO 07/17/24 13:59 Not Given TID [facility] Mirtazapine 15 mg 06/13/24 21:00 06/17/24 20:58 Mirtazapine 15 Mg Tablet PO 07/13/24 20:59 15 mg HS ANGELICA Administration Pharmacy Consult 1 each 06/10/24 12:15 Vancomycin Pharmacy To Dose 1 Each Each IV 07/10/24 12:14 QDAY PRN CONSULT Polyethylene Glycol 17 gm 06/12/24 15:36 Polyethylene Glycol 17 Gm Packet PO 07/09/24 10:44 BID PRN constipation Protocol Sennosides 1 tab 06/09/24 10:45 06/18/24 09:56 Senna Tablet PO 07/09/24 10:44 1 tab QDAY ANGELICA Administration Protocol Sodium Chloride 3 ml 05/24/24 19:00 Sodium Chloride Rt Jimena 0.9% 3 Ml Nebu INH 06/23/24 18:59 PRN PRN SOLN Timolol Maleate 1 drop 05/28/24 18:15 06/18/24 10:00 Timolol Op Jimena 0.5% 5 Ml Btl BOTH EYES 06/27/24 18:14 1 drop DAILY ANGELICA Administration Plan Ms. Castellanos is a 69-year-old female with past medical history significant for hypertension, diabetes and history of gastric ulcers who presented to the ED on 05/13/2024 after she was found unconscious on the floor. Per chart reviewing prior to this unconsciousness patient was having abdominal pain and generalized weakness with diarrhea and shortness of breath for 2 days. Patient was admitted to the hospital for treatment and management of sepsis secondary to pneumonia. Patient was given 1 L normal saline and started on ceftriaxone and azithromycin. patient underwent ex lap surgery for perforated gastric ulcer. Patient remained intubated postop and was upgraded to the ICU. Patient continues to be on dialysis after downgrade, has BALAJI and accordion drain intact, completed bowel rest, was started on dysphagia 1 diet, surgery following case closely, will continue to monitor. #recurrent Abdominal and pelvic abscesses - Pt had acoordian drains placed on 05/25, 06/02 and both drains were removed on 06/05 -Abscess culture from 05/25 and 06/02 grew edna albicans -repeat CT on 06/12 - Abscess in the left lower abdomen is noted, measuring 4.3 cm in dimension, Much smaller pelvic abscess on this study, 24 mm not amenable to catheter placement (larger abscess was directly aspirated by IR) -Patient completed 20 days of fluconazole and is now switched to micafungin started on 06/10- -[place] PRN for pain ordered #Hospital aquired pneumonia vs. 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 to work with physical therapy -will need rehab placement on discharge #Protein Calorie malnutrition ?Patient noted to have poor appetite, is finishing less than 50% of her meals, was initially on TPN which is discontinued. -Added dronabinol and mirtazapine as appetite stimulator -Dysphagia 1 diet order, Pts family is encouraged to bring home cooked meals that pt mayb interested in #Perforated gastric ulcer -resolved #Pneumoperitoneum- resolved #Peritonitis secondary to perforated gastric ulcer - s/p ex lap Patient found to have tender abdomen, rigidity in the epigastrium, chest x-ray showed elevation of hemidiaphragm, CT abdomen showed pneumoperitoneum, concern for perforated viscus, general surgeon Dr. Santana was consulted for emergency laparotomy and repair of perforated gastric ulcer on 05/[address] abd/pel on 05/20 revealed Pneumoperitoneum, orogastric tube in the stomach, mild free fluid adjacent to the stomach and anterior to the pancreas. 06/01/24: Overnight there was concern of wound dehiscence. Discussed with general surgeon per surgery superior aspect of the wound was dehiscent after removal of aixa.Surgery removal of BALAJI drain on 06/01. Repeat CT on 06/01- More pronounced fluid collection in the left abdomen below the spleen, 8.9 x 6.4cm, free fluid in the abdomen and pelvis, and Ascites -Repeat CT A/P 06/05: abscess collection in the left lower abdomen has markedly decreased in size. the accordions drains have no output this morning. Repeat CT on 06/10 shows multiple abdominal and pelvic abscesses and pneumonia left base Plan: ?Patient completed antibiotic therapy, Meropenem, discontinued per ID Recommendations -Pt completed two rounds of zosyn (05/15-05/24) and (06/10-06/17) ?Pt was on TPN 05/21-06/05 . Patient's diet is advanced to dysphagia 1 and have encouraged family members to bring home-cooked meals that patient would eat ?Continue dronabinol and mirtazapine as appetite stimulator #Acute Hypoxic Respiratory failure, likely multifactorial- improving -2/2 to pulmonary edema in the setting of volume overload 2/2 ATN due to shock leading to oligoanuria versus bibasilar pneumonia -Further complicated by bilateral lung atelectasis in the setting of recent abdominal surgery and sedatives use -Patient was intubated and on mechanical ventilation (05/15) and extubated 05/18/2024, -currently saturating 99 % on 2L NC -Duonebs prn -chest physiotherapy ordered -mucolytics ordered #New onset A-fib with RVR #NSTEMI type 2 -Likely secondary to shock in the setting of abdominal surgery -EKG findings consistent with A-fib -Was on Amiodarone 200 twice daily for new onset Afib, but as she was in AFib with RVR. Plan: ?Cardiology consulted, appreciate recs -Currently on oral amiodarone 200mg and metoprolol ? Resumed eliquis 5mg BID for anticoagulation # ESRD secondary to Acute tubular necrosis -2/2 septic shock Plan: -permanent hemodialysis cath placed on 06/02/24 - Hemodialysis as per schedule of ene, Elina, Sat -Patient is dialysis to be arranged by social services manager -Started on midodrine 10 mg BID as patient has difficulty tolerating dialysis, blood pressure drops. -Renally dose medications and avoid nephrotoxic agents -Nephrology following #Acute exacerbation of HFpEF- resolved # HFpEF EF 55 to 60% -echo 05/16 -estimated EF of 55 to 60%, stage I diastolic dysfunction noted, Moderate to severe posterior MAC -Continue dialysis, as per nephrology recommendations #Acute Upper GI bleed - resolved -Most likely secondary to perforated gastric ulcer -Continue iv Protonix. Pt's Hgb is stable and hemodynamically stable -Will monitor for alarm signs of active bleeding with melena or hematochezia #Acute blood loss anemia, resolved 2/2 perforated ulcer- S/P surgical repair Hgb stable 9.6 Hct 28.3 patient received 2 units of pRBC 05/18 due to acutely drop in Hgb below 7. No signs of active bleeding. Plan: -Continue to monitor daily CBC. transfuse for hemoglobin less than 7. #non- insulin dependent Diabetes Mellitus type II - A1C 6.3 % 05/21/2024 - Hold home glipizide and januvia - Plan: Continue to monitor blood sugars - Insulin sliding scale ordered with lantus 12 units #Hyperlipidemia -Unclear if patient takes any medications as a statin is not on list of home meds #essential Hypertension Holding on resuming home blood pressure medicines at this time # Acute encephalopathy-resolved -Likely multifactorial secondary to sepsis versus metabolic versus neurologic versus medication -Patient is awake and alert and follows commands. Patient is able to respond to yes or no questions verbally # Distributive shock - resolved #Hypoosmolar Hyponatremia, resolved Disposition: Telemetry DVT prophylaxis: Eliquis 5 mg twice daily anticoagulation for A-fib GI prophylaxis:Protonix 40 BID Diet: Dysphagia 1 diet CODE STATUS: Full Assessment and plan discussed with my Attending physician Dr. Anusha Rivera ([id number]-[id number])- Internal medicine resident Attending Provider Attestation/Addendum Janel Gaffney DO, attest that I was physically present for the donnelly portions of the service and evaluated the patient with the resident and I reviewed and discussed the case with the resident and agree with the resident's findings and plans of care as documented above Patient seen and evaluated this AM. No acute events overnight. Patient noted to have wheezing, will continue with breathing treatments and encourage patient to cough. Will add mucolytic and require frequent suctioning. Anticipate DC within next 24-48h. Due for HD tomorrow.
--- NOTE | 2024-06-18 18:37 | ESPR_ITS ---
Documentation for date of: 06/18/24 Subjective Subjective Interval history: Patient seen and examined at the bedside. Telemetry reviewed and heart rate is well-controlled between 90-110 bpm. Continue with amiodarone 200 mg twice daily. Discontinue the metoprolol completely as she had hypotension with dialysis yesterday. Continue with midodrine 10 mg 3 times a day if patient is hypotensive and use it especially before the dialysis even if the blood pressure is normal. Nephrology team following and will plan the next session of dialysis. Patient has significant wheezing during the examination and discussed with the nurse to give stat nebulizations and also to inform the primary team to do long- acting bronchodilator. Patient has active infection for which she is on antibiotics as well as antifungals since the surgery which is contributing to the A-fib with RVR. Primary team planning to discharge the patient when stable and awaiting SNF placement. Exam Vital Signs Temp Pulse Resp BP Pulse Ox O2 Del Method O2 Flow Rate 97.4 F 87 18 124/70 100 Nasal Cannula 2 06/18/24 16:00 06/18/24 16:00 06/18/24 16:00 06/18/24 16:00 06/18/24 16:00 06/18/24 16:00 06/18/24 16:00 FiO2 4 06/18/24 16:00 Narrative Exam General: AAOx3, obese female, patient in dialysis bed HEENT: Moist mucous membranes, conjunctiva clear, EOMI, PERRLA, Cardiovascular: S1, S2, radial pulses +2 bilat, irregularly irregular rhythm, tachycardic Pulmonary: Wheezing heard in lungs bilat, congestion and cough GI: Bandages present, no ascites, minimal pain to palpation of the abdomen Extremities: SCDs present, pitting edema in LE +1 bilat Neuro: AAOx3, no focal motor or sensory deficits in the UE or LE bilat Psych: Cooperative. Objective Labs 06/18/24 05:50 06/18/24 05:50 Labs: Laboratory Results - last 24 hr 06/18/24 05:50 WBC 8.7 RBC 2.85 L Hgb 7.7 L Hct 24.3 L MCV 85 MCH 27.0 MCHC 31.7 RDW Std Deviation 64.3 H Plt Count 230 Neut % (Auto) 43 Lymph % (Auto) 37 [place] % (Auto) 11 Eos % (Auto) 6 Baso % (Auto) 1 Neut # (Auto) 3.8 Lymph # (Auto) 3.2 [place] # (Auto) 0.9 H Eos # (Auto) 0.5 Baso # (Auto) 0.1 Immature Gran # (Auto) 0.15 H Absolute Nucleated RBC 0.22 H Immature Gran % 2 H Nucleated RBC % 3 H Sodium 134 L Potassium 3.6 Chloride 94 L Carbon Dioxide 23.9 Anion Gap 16 BUN 51 H Creatinine 5.4 H* D Estim Creat Clear Calc 8.3 L eGFR 8 L* BUN/Creatinine Ratio 9 L Glucose 94 Calculated Osmolality 281 Calcium 9.6 Corrected Calcium 9.8 Phosphorus 7.6 H Magnesium 2.2 Total Bilirubin 0.7 AST 35 H ALT < 7 L Alkaline Phosphatase 117 H Total Protein 7.5 Albumin 3.8 Globulin 3.7 H Albumin/Globulin Ratio 1.0 L ABG Interpretation ABG results: 05/13/24 05/15/24 05/15/24 08:29 15:28 16:03 ABG pH 7.39 7.05 L* D 7.17 L* D ABG pCO2 31 L 63 H D 45 D ABG pO2 78 L 38 L* D 84 D ABG HCO3 19 L 18 L 16 L ABG O2 Saturation 96 59 L 96 ABG Base Excess -5 L -12 L -11 L VBG pH VBG pCO2 VBG pO2 VBG Base Excess 05/16/24 05/17/24 05/18/24 04:38 04:03 04:20 ABG pH 7.28 L D 7.38 D 7.49 H D ABG pCO2 34 D 28 L 30 L ABG pO2 96 85 66 L ABG HCO3 16 L 17 L 23 ABG O2 Saturation 98 97 94 ABG Base Excess -10 L -8 L 0 VBG pH VBG pCO2 VBG pO2 VBG Base Excess 05/19/24 05/20/24 05/21/24 09:05 06:05 22:35 ABG pH 7.30 L D 7.41 D ABG pCO2 49 H D 42 ABG pO2 63 L 63 L ABG HCO3 24 27 H ABG O2 Saturation 91 93 ABG Base Excess -3 2 VBG pH 7.31 L VBG pCO2 50 VBG pO2 39 VBG Base Excess -2 05/26/24 05/29/24 04:17 12:28 ABG pH 7.38 7.42 ABG pCO2 42 35 ABG pO2 81 L 67 L ABG HCO3 25 23 ABG O2 Saturation 97 95 ABG Base Excess 0 -2 VBG pH VBG pCO2 VBG pO2 VBG Base Excess Assessment & Plan A&P Narrative Ms. Castellanos is a 69-year-old female with past medical history significant for hypertension, diabetes and history of gastric ulcers who presented to the ED on 05/13/2024 after she was found unconscious on the floor. Per chart reviewing prior to this unconsciousness patient was having abdominal pain and generalized weakness with diarrhea and shortness of breath for 2 days. Patient was admitted to the hospital for treatment and management of sepsis secondary to pneumonia. Patient was given 1 L normal saline and started on ceftriaxone and azithromycin. patient underwent ex lap surgery for perforated gastric ulcer. Patient remained intubated postop and was upgraded to the ICU. Patient continues to be on dialysis after downgrade, has BALAJI and accordion drain intact, completed bowel rest, was started on dysphagia 1 diet, surgery following case closely, will continue to monitor. Patient continue with dialysis, white count coming down, may want to reconsider adjusting antibiotics. Follow-up with ID recommendations. #New onset A-fib with RVR, improving, rate controlled New onset of Afib, likely related to septic shock requiring pressor support and increased demand from perforated ulcer complicated by abdominal abscesses Pt appears to still be in A-fib, rate controlled, 90s to mid 100s Previous EKG shows a-fib w/RVR CHADVASC: 5 Pts 7.2 % stroke risk per year HAS-BLED score: 3, high risk of major bleeding Patient continues to be rate controlled, rate in the 90s Plan: ?Continue with Oral Amio 200 mg BID ?Continue with Eliquis 5 mg twice daily 06/18/2024: Telemetry reviewed and heart rate is well-controlled between 90-110 bpm. Continue with amiodarone 200 mg twice daily. Discontinue the metoprolol completely as she had hypotension with dialysis yesterday. Continue with midodrine 10 mg 3 times a day if patient is hypotensive and use it especially before the dialysis even if the blood pressure is normal. Nephrology team following and will plan the next session of dialysis. Patient has significant wheezing during the examination and discussed with the nurse to give stat nebulizations and also to inform the primary team to do long- acting bronchodilator. Patient has active infection for which she is on antibiotics as well as antifungals since the surgery which is contributing to the A-fib with RVR. Primary team planning to discharge the patient when stable and awaiting SNF placement. #Acute exacerbation of HFpEF #HFpEF EF 55 to 60% #History of primary hypertension -Echo 05/16/2024 -estimated EF of 55 to 60%, stage I diastolic dysfunction noted, Moderate to severe posterior MAC Pt has new onset of ESRD requiring HD, requiring midodrine 10 mg QID to tolerate HD Not resuming home amlodipine at this time due to patient being A-fib and blood pressure eventually be controlled with beta-christian We recommend to give midodrine 5 to 10 mg 15 to 30 minutes before dialysis, can give additional 2.5 to 5 mg after dialysis as long as 3 hours after predialysis dose Half-life of midodrine is 9 to 10 hours and patient with CKD something to keep in mind Patient to continue with dialysis as electrolytes are abnormal including phosphorus. Plan: ?Resume GDMT as able, metoprolol on board right now, as above ?Fluid restriction ?Daily weights ?Strict ins and outs ?Keep potassium and magnesium above 4 and 2 respectively #Hx of Diabetes Mellitus type II Most recent A1c 05/21/2024: 6.2 Plan: Management by primary team #Perforated gastric ulcer #Pneumoperitoneum #Peritonitis secondary to perforated gastric ulcer #Abdominal Abscess, s/p percutaneous drainage x3 Patient found to have tender abdomen, rigidity in the epigastrium, chest x-ray showed elevation of hemidiaphragm, CT abdomen showed pneumoperitoneum, concern for perforated viscus, general surgeon Dr. Santana was consulted for emergency laparotomy and possible repair of perforated gastric ulcer. Repeat CT abd/pel on 05/20 revealed Pneumoperitoneum, orogastric tube in the stomach, mild free fluid adjacent to the stomach and anterior to the pancreas. s/p Exploratory laparotomy & repair of perforated gastric ulcer - 05/15. 06/01/24: Overnight there was concern of wound dehiscence. Discussed with general surgeon per surgery superior aspect of the wound was dehiscent after removal of aixa.Surgery removal of BALAJI drain on 06/01. Repeat CT on 06/01- More pronounced fluid collection in the left abdomen below the spleen, 8.9 x 6.4cm, free fluid in the abdomen and pelvis, and Ascites -Abscess culture from 05/25 grew edna albicans ?Repeat CT abdomen pelvis shows abscess collection lower left abdomen has markedly decreased in size and the accordion drains have no output this morning Plan: Management by primary hospitalist team #Acute blood loss anemia, stable Likely related to perforated ulcer Hgb stable ~7.7 Plan: Management by primary hospitalist team #Acute tubular necrosis, requiring hemodialysis #Acute Hypoxic Respiratory failure #Acute Upper GI bleed - stable #Hyperlipidemia #Acute blood loss anemia, stable #Acute encephalopathy-resolved #Septic Shock - resolved #Hypoosmolar Hyponatremia, resolved Management of rest of the medical conditions as per primary team and other consultants. Thank you for the consult and allowing me to participate in the care of the patient. Cardiology will continue to follow. Jalen Davis M.D. Interventional Cardiology Time Spent With Patient Time: Total time spent is greater than 50% in coordination of care (as documented) at patient's floor/unit and/or counseling patient:
[2024-06-18] MEDS: MIRTAZAPINE 15 MG TABLET PO (20:41)
[2024-06-19] VITALS (40 sets, daily range): BP systolic 74–183; BP diastolic 46–108; PULSE 60–122; RESP 17–28; TEMP 36.3–36.7; O2SAT 91–100; BMI 34.9
[2024-06-19] MEDS: MELATONIN 3 MG TABLET PO (02:10)
--- NOTE | 2024-06-19 03:45 | PC.NURSE ---
SPOKE WITH DR. SALAZAR IN REGARDS TO PT'S RESPIRATORY STATUS-CRACKLES, WHEEZING, CONTINUOUS COUGH, PT IS RESTLESS. EXPLAINED THAT PT RECEIVED MELATONIN TONIGHT, COUGH MEDICINE AND RT TX ARE INEFFECTIVE IN TREATING BILATERAL LUNG WHEEZING AND COUGH. MD TO PLACE ORDER FOR RT TX FOR LONGER DURATION, EXPLAINED THAT SHE WILL RELAY TO DAY TEAM THAT PT WOULD BENEFIT FROM HD TODAY SINCE LAST HD ATTEMPT WAS UNSUCCESSFUL.
[2024-06-19] MEDS: ALBUTEROL/IPRATROPIUM (Duoneb) RT SOL 3 ML NEBU INH ×2 (04:33→07:03)
[2024-06-19] MEDS: SODIUM CL RT SOL 3% 4 ML NEBU (NON-FORMULARY) INH (04:33)
[2024-06-19] MEDS: guaiFENesin SYRUP 200 MG/10 ML UDC PO ×4 (05:15→21:10)
[2024-06-19] MEDS: ACETAMINOPHEN 325 MG TABLET 650 MG PO (05:19)
[2024-06-19 05:31] LABS: Albumin, Serum 3.7 gm/dL (3.4-4.8); Anion Gap 17 (7-16); BUN/Creatinine Ratio 9 Ratio (12-20); Blood Urea Nitrogen 54 mg/dL (9-23); Calcium 9.3 mg/dL (8.3-10.6); Calcium (Corrected) 9.5 mg/dL (8.5-10.1); Carbon Dioxide 18.9 mMol/L (20.0-31.0); Chloride 96 mMol/L (98-107); Creatinine (Component) 6.2 mg/dL (0.6-1.3); Estimated Creatinine Clearance 7.2 mL/min (>60); Glucose 83 mg/dL (74-106); Osmolality,Calculated 278 (275-295); Potassium 4.9 mMol/L (3.4-5.1); Sodium 132 mMol/L (136-145); Vancomycin,Random 20.5 mcg/mL; eGFR 7 See Note
[2024-06-19 05:33] LABS: Phosphorous 9.6 mg/dL (2.4-5.1)
--- NOTE | 2024-06-19 07:42 | PD.RESPRO ---
Documentation for date of: 06/19/24 Senior resident attestation: Protected hospital course complicated by gastric perforation status post emergent laparotomy and repair, ICU stay as well as multiple postop abscesses and pneumonia. Also developed ADILSON/ATN requiring hemodialysis, patient has made less than optimal recovery postop, continues to develop multiple abdominal abscesses, repeat cultures grew Edna, was started on fluconazole, currently completing more than 2 weeks of fluconazole but had repeat abdominal pelvic abscesses on abdominal imaging. IR CT-guided abscess drainage was ordered, pelvic abscess was not amenable to drainage, smaller abscess was drained, sent for microbiology. Noted uptrending WBC count and increased patient discomfort as well as somnolence, started on broad-spectrum antibiotics for aspiration versus hospital-acquired pneumonia IV Zosyn and vancomycin as well as micafungin for candidal abscess not respond to fluconazole. Antibiotics were discontinued following resolution of pneumonia. #Sepsis?secondary to?Peritonitis secondary to perforated gastric ulcer s/p repair - resolved #Postop intra-abdominal abscess s/p drainage, likely fungal- will continue with antibiotics and micafungin pending abscess culture. And ID recommendations. daily PT , mobilize patient. Plan to discharge to SNF on fluconazole once patient has placement. #Pneumonia, HCAP - cultures negative to date , but was started after worsening leucocytosis and pneumonic infiltrates on cxr, antibiotics discontinued following completion of treatment, now improving. #A-fib RVR - on eliquis and po amiodarone #NSTEMI type 2 #ATN, likely progressed to ESRD- HD tue,nita,sat , dailysis chair secured, but to establish outpatient dialysis pt may need to stay until wednesday and get inpt HD then discarged and can get outpt HD on wednesday #Acute toxic encephalopathy?in the setting of sepsis?improving #Protein calorie malnutrition as well as general deconditioning due to poor diet, #History of diabetes mellitus- #History of gastric ulcer- BID protonix #Acute blood loss anemia secondary to GI bleed - resolved Patient evaluated and examined at the bedside, plan of care discussed with rest of the team including my attending physician, except as noted. Quresh pgy 2 Subjective Subjective Interval history: 06/19: overight team reported pt was unable to sleep therefore melatonin x1 was given. Pt is seen and examined at bedside th morning. Pt tried sitting on a chair as preparation to be able to sit at dialysis chair outpatient. Pt did well. Pt is still wheezing and is on 1L oxygen saturating at 98%. She is more alert and able to communicate more. She is denying chest and abdominal pain. Exam Vital Signs Temp Pulse Resp BP Pulse Ox O2 Del Method O2 Flow Rate 98.1 F 104 H 27 H 153/87 H 97 Nasal Cannula 1 06/19/24 04:00 06/19/24 07:07 06/19/24 07:07 06/19/24 05:14 06/19/24 07:07 06/19/24 04:00 06/19/24 07:07 FiO2 4 06/18/24 16:00 Narrative Exam GENERAL: A&Ox3 . Awake and alert, Pt. is on 1L oxygen via nasal cannula NEURO: no focal neurological deficits HEENT: Atraumatic, Normocephalic. mucous membranes moist. Eyes open, symmetrical, & clear HEART: Normal Heart Sounds LUNGS: wheezing bilaterally and crackles on auscultation ABDOMEN: soft, non-distended, non-tender, bowel sounds heard, no guarding or rebound tenderness, incision site is clean. SKIN: No Rash or ecchymoses EXTREMITIES: trace edema bilaterally on LE, tenderness, able to move all 4 extremities, pedal pulses palpated Objective Labs 06/20/24 05:54 06/20/24 05:54 Labs: Laboratory Results - last 24 hr 06/19/24 03:57 Sodium 132 L Potassium 4.9 D Chloride 96 L Carbon Dioxide 18.9 L Anion Gap 17 H BUN 54 H Creatinine 6.2 H* D Estim Creat Clear Calc 7.2 L eGFR 7 L* BUN/Creatinine Ratio 9 L Glucose 83 Calculated Osmolality 278 Calcium 9.3 Corrected Calcium 9.5 Phosphorus 9.6 H Albumin 3.7 Random Vancomycin 20.5 ABG Interpretation ABG results: 05/13/24 05/15/24 05/15/24 08:29 15:28 16:03 ABG pH 7.39 7.05 L* D 7.17 L* D ABG pCO2 31 L 63 H D 45 D ABG pO2 78 L 38 L* D 84 D ABG HCO3 19 L 18 L 16 L ABG O2 Saturation 96 59 L 96 ABG Base Excess -5 L -12 L -11 L VBG pH VBG pCO2 VBG pO2 VBG Base Excess 05/16/24 05/17/2405/18/24 04:38 04:03 04:20 ABG pH 7.28 L D 7.38 D 7.49 H D ABG pCO2 34 D 28 L 30 L ABG pO2 96 85 66 L ABG HCO3 16 L 17 L 23 ABG O2 Saturation 98 97 94 ABG Base Excess -10 L -8 L 0 VBG pH VBG pCO2 VBG pO2 VBG Base Excess 05/19/24 05/20/24 05/21/24 09:05 06:05 22:35 ABG pH 7.30 L D 7.41 D ABG pCO2 49 H D 42 ABG pO2 63 L 63 L ABG HCO3 24 27 H ABG O2 Saturation 91 93 ABG Base Excess -3 2 VBG pH 7.31 L VBG pCO2 50 VBG pO2 39 VBG Base Excess -2 05/26/24 05/29/24 04:17 12:28 ABG pH 7.38 7.42 ABG pCO2 42 35 ABG pO2 81 L 67 L ABG HCO3 25 23 ABG O2 Saturation 97 95 ABG Base Excess 0 -2 VBG pH VBG pCO2 VBG pO2 VBG Base Excess Quality Measures Quality Measures none Advance care planning discussed with:: patient and child Assessment & Plan Assessment Current Active Medications: Generic Name Dose Route Start Last Admin Trade Name Freq PRN Reason Stop Dose Admin Acetaminophen 650 mg 06/09/24 14:11 06/19/24 05:19 Acetaminophen 325 Mg Tablet PO 07/09/24 14:10 650 mg Q6HR PRN Administration Fever >101 and pain 1-3 Albuterol/Ipratropium 3 ml 05/27/24 18:08 06/19/24 07:03 Albuterol/Ipratropium (Duoneb) Rt Jimena 3 Ml Nebu INH 06/26/24 18:07 3 ml Q2HR PRN Administration SHORTNESS OF BREATH OR WHEEZE Amiodarone HCl 200 mg 05/29/24 15:00 06/18/24 20:41 Amiodarone Hcl 200 Mg Tablet PO 06/28/24 14:59 200 mg BID ANGELICA Administration Apixaban 5 mg 06/13/24 21:00 06/18/24 20:41 Apixaban 2.5 Mg Tablet PO 07/13/24 20:59 5 mg BID ANGELICA Administration Benzocaine 1 lozenge 05/31/24 11:53 06/09/24 23:07 Benzocaine/Menthol 1 Lozenge PO 06/30/24 11:52 1 lozenge Q4HR PRN Administration Sore throat Dextrose 25 ml 05/24/24 15:43 Dextrose 50%-Water Inj 50 Ml Syringe IV 06/23/24 15:42 Q15MIN PRN BG 50-70 responsive npo pt Dextrose 50 ml 05/24/24 15:43 Dextrose 50%-Water Inj 50 Ml Syringe IV 06/23/24 15:42 Q15MIN PRN BG <50 OR BG <70 & pt unresponsive Dronabinol 5 mg 06/07/24 10:40 06/18/24 17:02 Dronabinol 2.5 Mg Capsule PO 07/07/24 10:39 5 mg BIDAC ANGELICA Administration Glucagon 1 mg 05/24/24 15:43 Glucagon Inj 1 Mg Vial IM Q15MIN PRN BG <70, and no IV access Guaifenesin 200 mg 06/10/24 08:30 06/19/24 05:15 Guaifenesin Syrup 200 Mg/10 Ml Udc PO 07/10/24 08:29 200 mg QID ANGELICA Administration Protocol Heparin Sodium (Porcine) 3,500 unit 06/16/24 08:22 06/16/24 11:44 Heparin Sod Inj 1000 Unit/Ml Vial 10 Ml IV 06/30/24 08:21 3,500 unit X1 PRN Administration DIALYSIS Micafungin Sodium 100 mg/ 100 mls @ 100 mls/hr 06/10/24 13:56 06/18/24 09:56 Sodium Chloride IV 06/25/24 13:55 100 mls/hr QDAY ANGELICA Administration Albumin Human 25 gm in 100 mls @ 100 mls/hr 06/12/24 16:40 06/17/24 11:50 Albuminar-25 Ivpb IV 100 mls/hr PRN PRN Administration DIALYSIS Insulin Glargine 12 unit 05/25/24 09:00 06/18/24 10:01 Insulin Glargine (Lantus) 5 Unit/0.05 Ml (Per 5 Units) SC 06/24/24 08:59 Not Given QDAY ANGELICA Insulin Human Lispro 0 unit 06/16/24 07:30 06/18/24 16:57 Insulin Lispro (Admelog) 1 Unit/0.01 Ml Unit SC 07/16/24 07:29 Not Given AC ANGELICA Protocol Lidocaine 1 patch 05/30/24 09:16 06/17/24 09:23 Lidocaine 5% 1 Patch TOP 06/29/24 09:15 1 patch DAILY PRN Administration BACK PAIN Midodrine 10 mg 06/17/24 14:00 06/19/24 05:14 Midodrine 5 Mg Tablet PO 07/17/24 13:59 Not Given TID ANGELICA Mirtazapine 15 mg 06/13/24 21:00 06/18/24 20:41 Mirtazapine 15 Mg Tablet PO 07/13/24 20:59 15 mg HS ANGELICA Administration Pharmacy Consult 1 each 06/10/24 12:15 Vancomycin Pharmacy To Dose 1 Each Each IV 07/10/24 12:14 QDAY PRN CONSULT Polyethylene Glycol 17 gm 06/12/24 15:36 Polyethylene Glycol 17 Gm Packet PO 07/09/24 10:44 BID PRN constipation Protocol Sennosides 1 tab 06/09/24 10:45 06/18/24 09:56 Senna Tablet PO 07/09/24 10:44 1 tab QDAY ANGELICA Administration Protocol Sodium Chloride 3 ml 05/24/24 19:00 Sodium Chloride Rt Jimena 0.9% 3 Ml Nebu INH 06/23/24 18:59 PRN PRN SOLN Timolol Maleate 1 drop 05/28/24 18:15 06/18/24 10:00 Timolol Op Jimena 0.5% 5 Ml Btl BOTH EYES 06/27/24 18:14 1 drop DAILY ANGELICA Administration Plan Ms. Castellanos is a 69-year-old female with past medical history significant for hypertension, diabetes and history of gastric ulcers who presented to the ED on 05/13/2024 after she was found unconscious on the floor. Per chart reviewing prior to this unconsciousness patient was having abdominal pain and generalized weakness with diarrhea and shortness of breath for 2 days. Patient was admitted to the hospital for treatment and management of sepsis secondary to pneumonia. Patient was given 1 L normal saline and started on ceftriaxone and azithromycin. patient underwent ex lap surgery for perforated gastric ulcer. Patient remained intubated postop and was upgraded to the ICU. Patient continues to be on dialysis after downgrade, has BALAJI and accordion drain intact, completed bowel rest, was started on dysphagia 1 diet, surgery following case closely, will continue to monitor. #recurrent Abdominal and pelvic abscesses - Pt had acoordian drains placed on 05/25, 06/02 and both drains were removed on 06/05 -Abscess culture from 05/25 and 06/02 grew edna albicans -repeat CT on 06/12 - Abscess in the left lower abdomen is noted, measuring 4.3 cm in dimension, Much smaller pelvic abscess on this study, 24 mm not amenable to catheter placement (larger abscess was directly aspirated by IR) -Patient completed 20 days of fluconazole and is now switched to micafungin started on 06/10- -[place] PRN for pain ordered #Hospital aquired pneumonia vs. aspiration pneumonia #right pleural effusions -Pt has a productive cough, leukocytosis -Chest xray 06/15- Significant pneumonia right base, Small right pleural effusion plan: -Duonebs prn -mucolytics ordered -chest physiotherapy -continue zosyn (06/10-06/17) -Patient is scheduled for videofluoroscopy for 06/19 #Protein Calorie malnutrition ?Patient noted to have poor appetite, is finishing less than 50% of her meals, was initially on TPN which is discontinued. 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 cerebellar hemisphere -no aspirin given at this time due to hx. 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 to work with physical therapy -will need rehab placement on discharge #Perforated gastric ulcer -resolved #Pneumoperitoneum- resolved #Peritonitis secondary to perforated gastric ulcer - s/p ex lap Patient found to have tender abdomen, rigidity in the epigastrium, chest x-ray showed elevation of hemidiaphragm, CT abdomen showed pneumoperitoneum, concern for perforated viscus, general surgeon Dr. Santana was consulted for emergency laparotomy and repair of perforated gastric ulcer on 05/[address] abd/pel on 05/20 revealed Pneumoperitoneum, orogastric tube in the stomach, mild free fluid adjacent to the stomach and anterior to the pancreas. 06/01/24: Overnight there was concern of wound dehiscence. Discussed with general surgeon per surgery superior aspect of the wound was dehiscent after removal of aixa.Surgery removal of BALAJI drain on 06/01. Repeat CT on 06/01- More pronounced fluid collection in the left abdomen below the spleen, 8.9 x 6.4cm, free fluid in the abdomen and pelvis, and Ascites -Repeat CT A/P 06/05: abscess collection in the left lower abdomen has markedly decreased in size. the accordions drains have no output this morning. Repeat CT on 06/10 shows multiple abdominal and pelvic abscesses and pneumonia left base Plan: ?Patient completed antibiotic therapy, Meropenem, discontinued per ID Recommendations -Pt completed two rounds of zosyn (05/15-05/24) and (06/10-06/17) ?Pt was on TPN 05/21-06/05 . Patient's diet is advanced to dysphagia 1 and have encouraged family members to bring home-cooked meals that patient would eat ?Continue dronabinol and mirtazapine as appetite stimulator #Acute Hypoxic Respiratory failure, likely multifactorial- improving -2/2 to pulmonary edema in the setting of volume overload 2/2 ATN due to shock leading to oligoanuria versus bibasilar pneumonia -Further complicated by bilateral lung atelectasis in the setting of recent abdominal surgery and sedatives use -Patient was intubated and on mechanical ventilation (05/15) and extubated 05/18/2024, -currently saturating 99 % on 2L NC -Ipratropium every 4 hours -Levalbuterol every 4 hours -chest physiotherapy ordered -mucolytics ordered #New onset A-fib with RVR #NSTEMI type 2 -Likely secondary to shock in the setting of abdominal surgery -EKG findings consistent with A-fib -Was on Amiodarone 200 twice daily for new onset Afib, but as she was in AFib with RVR. Plan: ?Cardiology consulted, appreciate recs -Currently on oral amiodarone 200mg and metoprolol ? Resumed eliquis 5mg BID for anticoagulation # ESRD secondary to Acute tubular necrosis -2/2 septic shock Plan: -permanent hemodialysis cath placed on 06/02/24 - Hemodialysis as per schedule of , , Wed -Patient is dialysis to be arranged by [employer] -Started on midodrine 10 mg BID as patient has difficulty tolerating dialysis, blood pressure drops. -Renally dose medications and avoid nephrotoxic agents -Nephrology following #Acute exacerbation of HFpEF- resolved # HFpEF EF 55 to 60% -echo 05/16 -estimated EF of 55 to 60%, stage I diastolic dysfunction noted, Moderate to severe posterior MAC -Continue dialysis, as per nephrology recommendations #Acute Upper GI bleed - resolved -Most likely secondary to perforated gastric ulcer -Continue iv Protonix. Pt's Hgb is stable and hemodynamically stable -Will monitor for alarm signs of active bleeding with melena or hematochezia #Acute blood loss anemia, resolved 2/2 perforated ulcer- S/P surgical repair Hgb stable 9.6 Hct 28.3 patient received 2 units of pRBC 05/18 due to acutely drop in Hgb below 7. No signs of active bleeding. Plan: -Continue to monitor daily CBC. transfuse for hemoglobin less than 7. #non- insulin dependent Diabetes Mellitus type II - A1C 6.3 % 05/21/2024 - Hold home glipizide and januvia - Plan: Continue to monitor blood sugars - Insulin sliding scale ordered with lantus 12 units #Hyperlipidemia -Unclear if patient takes any medications as a statin is not on list of home meds #essential Hypertension Holding on resuming home blood pressure medicines at this time # Acute encephalopathy-resolved -Likely multifactorial secondary to sepsis versus metabolic versus neurologic versus medication -Patient is awake and alert and follows commands. Patient is able to respond to yes or no questions verbally # Distributive shock - resolved #Hypoosmolar Hyponatremia, resolved Disposition: Telemetry DVT prophylaxis: Eliquis 5 mg twice daily anticoagulation for A-fib GI prophylaxis:Protonix 40 BID Diet: Dysphagia 1 diet CODE STATUS: Full Assessment and plan discussed with my senior resident physician Dr. Quiñonez and attending physician Dr. Anusha Rivera ([id number])- Internal medicine resident Attending Provider Attestation/Addendum I, Janel Tavares, , attest that I was physically present for the donnelly portions of the service and evaluated the patient with the resident and I reviewed and discussed the case with the resident and agree with the resident's findings and plans of care as documented above Patient seen and evaluated this AM. No acute events overnight. However, patient continues to have wheezing., concerning for aspiration. Will order videofluorscopy as wheezing and rhonchi have not improved. Patient undergoing dialysis at time of evaluation and has no complaints. Will continue with current management and breathing treatments. Chest PT ordered.
[2024-06-19] MEDS: SENNA TABLET 1 TAB PO (08:38)
[2024-06-19] MEDS: APIXABAN 2.5 MG TABLET 5 MG PO ×2 (08:39→21:10)
[2024-06-19] MEDS: droNABinol 2.5 MG CAPSULE 5 MG PO ×2 (08:39→17:10)
[2024-06-19] MEDS: AMIODARONE HCL 200 MG TABLET PO ×2 (08:40→21:08)
[2024-06-19] MEDS: MICAFUNGIN SODIUM INJ 100 MG in SODIUM CHLORIDE 0.9% 100 ML IV (08:42)
[2024-06-19] MEDS: INSULIN GLARGINE (Lantus) 5 UNIT/0.05 ML (PER 5 UNITS) 12 UNIT SC (08:42)
[2024-06-19] MEDS: TIMOLOL OP SOL 0.5% 5 ML BTL 1 DROP BOTH EYES (08:43)
[2024-06-19] MEDS: ALBUTEROL RT 2.5 MG/0.5 ML NEBU 10 MG INH (08:43)
[2024-06-19] MEDS: SODIUM CHLORIDE RT SOL 0.9% 3 ML NEBU INH (08:44)
--- NOTE | 2024-06-19 09:16 | PC.SS ---
Addendum entered by Yolande Montes 06/19/24 10:32: SS has communicated with Ebony at [facility] who states they are unable to accept pt today. SS met with patient's son, Roberto and provided him with verbal choices to [facility], [facility], [facility], and [facility]. Son's 2nd choice is [facility] & 3rd is [facility]. SS spoke to Adelina at [facility] they do not have female beds available. SS has re sent inquiry to the local SNF using [facility]. Original Note: SS followed up with Ebony at [facility] who explained they are full but will contact SS around 9:30 to follow up with bed availability. SS has spoken to patient's son, Roberto who is aware. SS has explained pt is ready for d/c and inquiry will be re sent to other SNF if [facility] is unable to accept.
--- NOTE | 2024-06-19 09:22 | PD.RESPRO ---
Documentation for date of: 06/19/24 Subjective Subjective Interval history: 06/19/2024: Pt examined at bedside today. Telemetry reviewed, pt's max HR 120, rate controlled 90s-100s. Patient reports she is doing well. She is sitting upright in her chair and is improving. Patient is scheduled to get dialysis today phosphorous 9.6, BUN 54, Cr 6.2. Pt denies CP, palpitations and SOB. Denies having a hx of smoking or COPD. No other complaints at this time. Exam Vital Signs Temp Pulse Resp BP Pulse Ox O2 Del Method O2 Flow Rate 97.3 F 71 20 183/82 H 100 Room Air 1 06/19/24 09:04 06/19/24 09:17 06/19/24 09:04 06/19/24 09:17 06/19/24 09:04 06/19/24 08:00 06/19/24 08:46 FiO2 4 06/18/24 16:00 Narrative Exam General: AAOx3, NAD, sitting up right, HEENT: Moist mucous membranes, conjunctiva clear, EOMI, PERRLA, Cardiovascular: S1, S2, radial pulses +2 bilat, irregularly irregular rhythm Pulmonary: Crackles in lobes heard, some wheezing on exam GI: No tenderness to light or deep palpitation, no guarding, rigidity, Extremities: Trace edema in lower extremities bilaterally, dorsalis pedis pulses +2 bilaterally Neuro: AAOx3, no focal motor or sensory deficits in the UE or LE bilat Psych: Cooperative Objective Labs 06/18/24 05:50 06/19/24 03:57 Labs: Laboratory Results - last 24 hr 06/19/24 06/19/24 03:57 08:41 Sodium 132 L Potassium 4.9 D Chloride 96 L Carbon Dioxide 18.9 L Anion Gap 17 H BUN 54 H Creatinine 6.2 H* D Estim Creat Clear Calc 7.2 L eGFR 7 L* BUN/Creatinine Ratio 9 L Glucose 83 Calculated Osmolality 278 Calcium 9.3 Corrected Calcium 9.5 Phosphorus 9.6 H Albumin 3.7 Random Vancomycin 20.5 Crossmatch See Detail ABG Interpretation ABG results: 05/13/24 05/15/24 05/15/24 08:29 15:28 16:03 ABG pH 7.39 7.05 L* D 7.17 L* D ABG pCO2 31 L 63 H D 45 D ABG pO2 78 L 38 L* D 84 D ABG HCO3 19 L 18 L 16 L ABG O2 Saturation 96 59 L 96 ABG Base Excess -5 L -12 L -11 L VBG pH VBG pCO2 VBG pO2 VBG Base Excess 05/16/24 05/17/24 05/18/24 04:38 04:03 04:20 ABG pH 7.28 L D 7.38 D 7.49 H D ABG pCO2 34 D 28 L 30 L ABG pO2 96 85 66 L ABG HCO3 16 L 17 L 23 ABG O2 Saturation 98 97 94 ABG Base Excess -10 L -8 L 0 VBG pH VBG pCO2 VBG pO2 VBG Base Excess 05/19/24 05/20/24 05/21/24 09:05 06:05 22:35 ABG pH 7.30 L D 7.41 D ABG pCO2 49 H D 42 ABG pO2 63 L 63 L ABG HCO3 24 27 H ABG O2 Saturation 91 93 ABG Base Excess -3 2 VBG pH 7.31 L VBG pCO2 50 VBG pO2 39 VBG Base Excess -2 05/26/24 05/29/24 04:17 12:28 ABG pH 7.38 7.42 ABG pCO2 42 35 ABG pO2 81 L 67 L ABG HCO3 25 23 ABG O2 Saturation 97 95 ABG Base Excess 0 -2 VBG pH VBG pCO2 VBG pO2 VBG Base Excess Quality Measures Quality Measures none Advance care planning discussed with:: patient Assessment & Plan Assessment Current Active Medications: Generic Name Dose Route Start Last Admin Trade Name Freq PRN Reason Stop Dose Admin Acetaminophen 650 mg 06/09/24 14:11 06/19/24 05:19 Acetaminophen 325 Mg Tablet PO 07/09/24 14:10 650 mg Q6HR PRN Administration Fever >101 and pain 1-3 Albuterol/Ipratropium 3 ml 05/27/24 18:08 06/19/24 07:03 Albuterol/Ipratropium (Duoneb) Rt Jimena 3 Ml Nebu INH 06/26/24 18:07 3 ml Q2HR PRN Administration SHORTNESS OF BREATH OR WHEEZE Amiodarone HCl 200 mg 05/29/24 15:00 06/19/24 08:40 Amiodarone Hcl 200 Mg Tablet PO 06/28/24 14:59 200 mg BID ANGELICA Administration Apixaban 5 mg 06/13/24 21:00 06/19/24 08:39 Apixaban 2.5 Mg Tablet PO 07/13/24 20:59 5 mg BID ANGELICA Administration Benzocaine 1 lozenge 05/31/24 11:53 06/09/24 23:07 Benzocaine/Menthol 1 Lozenge PO 06/30/24 11:52 1 lozenge Q4HR PRN Administration Sore throat Dextrose 25 ml 05/24/24 15:43 Dextrose 50%-Water Inj 50 Ml Syringe IV 06/23/24 15:42 Q15MIN PRN BG 50-70 responsive npo pt Dextrose 50 ml 05/24/24 15:43 Dextrose 50%-Water Inj 50 Ml Syringe IV 06/23/24 15:42 Q15MIN PRN BG <50 OR BG <70 & pt unresponsive Dronabinol 5 mg 06/07/24 10:40 06/19/24 08:39 Dronabinol 2.5 Mg Capsule PO 07/07/24 10:39 5 mg BIDAC ANGELICA Administration Glucagon 1 mg 05/24/24 15:43 Glucagon Inj 1 Mg Vial IM Q15MIN PRN BG <70, and no IV access Guaifenesin 200 mg 06/10/24 08:30 06/19/24 05:15 Guaifenesin Syrup 200 Mg/10 Ml Udc PO 07/10/24 08:29 200 mg QID ANGELICA Administration Protocol Heparin Sodium (Porcine) 3,500 unit 06/16/24 08:22 06/16/24 11:44 Heparin Sod Inj 1000 Unit/Ml Vial 10 Ml IV 06/30/24 08:21 3,500 unit X1 PRN Administration DIALYSIS Micafungin Sodium 100 mg/ 100 mls @ 100 mls/hr 06/10/24 13:56 06/19/24 08:42 Sodium Chloride IV 06/25/24 13:55 100 mls/hr QDAY ANGELICA Administration Albumin Human 25 gm in 100 mls @ 100 mls/hr 06/12/24 16:40 06/17/24 11:50 Albuminar-25 Ivpb IV 100 mls/hr PRN PRN Administration DIALYSIS Insulin Glargine 12 unit 05/25/24 09:00 06/19/24 08:42 Insulin Glargine (Lantus) 5 Unit/0.05 Ml (Per 5 Units) SC 06/24/24 08:59 12 unit QDAY ANGELICA Administration Insulin Human Lispro 0 unit 06/16/24 07:30 06/19/24 07:54 Insulin Lispro (Admelog) 1 Unit/0.01 Ml Unit SC 07/16/24 07:29 Not Given AC ANGELICA Protocol Lidocaine 1 patch 05/30/24 09:16 06/17/24 09:23 Lidocaine 5% 1 Patch TOP 06/29/24 09:15 1 patch DAILY PRN Administration BACK PAIN Midodrine 10 mg 06/17/24 14:00 06/19/24 05:14 Midodrine 5 Mg Tablet PO 07/17/24 13:59 Not Given TID ANGELICA Mirtazapine 15 mg 06/13/24 21:00 06/18/24 20:41 Mirtazapine 15 Mg Tablet PO 07/13/24 20:59 15 mg HS ANGELICA Administration Pharmacy Consult 1 each 06/10/24 12:15 Vancomycin Pharmacy To Dose 1 Each Each IV 07/10/24 12:14 QDAY PRN CONSULT Polyethylene Glycol 17 gm 06/12/24 15:36 Polyethylene Glycol 17 Gm Packet PO 07/09/24 10:44 BID PRN constipation Protocol Sennosides 1 tab 06/09/24 10:45 06/19/24 08:38 Senna Tablet PO 07/09/24 10:44 1 tab QDAY ANGELICA Administration Protocol Sodium Bicarbonate 325 mg 06/19/24 09:00 Sodium Bicarbonate 650 Mg Tablet PO 07/19/24 08:59 QDAY ANGELICA Sodium Chloride 3 ml 05/24/24 19:00 06/19/24 08:44 Sodium Chloride Rt Jimena 0.9% 3 Ml Nebu INH 06/23/24 18:59 3 ml PRN PRN Administration SOLN Timolol Maleate 1 drop 05/28/24 18:15 06/19/24 08:43 Timolol Op Jimena 0.5% 5 Ml Btl BOTH EYES 06/27/24 18:14 1 drop DAILY ANGELICA Administration Plan Assessment Ms. Castellanos is a 69-year-old female with past medical history significant for hypertension, diabetes and history of gastric ulcers who presented to the ED on 05/13/2024 after she was found unconscious on the floor. Per chart reviewing prior to this unconsciousness patient was having abdominal pain and generalized weakness with diarrhea and shortness of breath for 2 days. Patient was admitted to the hospital for treatment and management of sepsis secondary to pneumonia. Patient was given 1 L normal saline and started on ceftriaxone and azithromycin. patient underwent ex lap surgery for perforated gastric ulcer. Patient remained intubated postop and was upgraded to the ICU. Patient continues to be on dialysis after downgrade, has BALJAI and accordion drain intact, completed bowel rest, was started on dysphagia 1 diet, surgery following case closely, will continue to monitor. Patient continue with dialysis, white count coming down, may want to reconsider adjusting antibiotics. Follow-up with ID recommendations. #New onset A-fib with RVR, improving, rate controlled New onset of Afib, likely related to septic shock requiring pressor support and increased demand from perforated ulcer complicated by abdominal abscesses Pt appears to still be in A-fib, rate controlled, 90s to mid 100s Previous EKG shows a-fib w/RVR CHADVASC: 5 Pts 7.2 % stroke risk per year HAS-BLED score: 3, high risk of major bleeding Patient continues to be rate controlled, rate in the 90s-100s We discontinued metoprolol yesterday, b/c of hypotension with dialysis, will continue Amio We recommend continuing levalbuterol for wheezing/doing so, and we recommend primary team to start LABA Plan: ?Continue with Oral Amio 200 mg BID ?Continue with Eliquis 5 mg twice daily #Acute exacerbation of HFpEF #HFpEF EF 55 to 60% #History of primary hypertension -Echo 05/16/2024 -estimated EF of 55 to 60%, stage I diastolic dysfunction noted, Moderate to severe posterior MAC We recommend to give midodrine 5 to 10 mg 15 to 30 minutes before dialysis, can give additional 2.5 to 5 mg after dialysis as long as 3 hours after predialysis dose Half-life of midodrine is 9 to 10 hours and patient with CKD something to keep in mind Patient to continue with dialysis as electrolytes are abnormal including phosphorus. Plan: ?Resume GDMT as able, metoprolol on board right now, as above ?Fluid restriction ?Daily weights ?Strict ins and outs ?Keep potassium and magnesium above 4 and 2 respectively #Hx of Diabetes Mellitus type II Most recent A1c 05/21/2024: 6.2 Plan: Management by primary team #Perforated gastric ulcer #Pneumoperitoneum #Peritonitis secondary to perforated gastric ulcer #Abdominal Abscess, s/p percutaneous drainage x3 Patient found to have tender abdomen, rigidity in the epigastrium, chest x-ray showed elevation of hemidiaphragm, CT abdomen showed pneumoperitoneum, concern for perforated viscus, general surgeon Dr. Santana was consulted for emergency laparotomy and possible repair of perforated gastric ulcer. Repeat CT abd/pel on 05/20 revealed Pneumoperitoneum, orogastric tube in the stomach, mild free fluid adjacent to the stomach and anterior to the pancreas. s/p Exploratory laparotomy & repair of perforated gastric ulcer - 05/15. 06/01/24: Overnight there was concern of wound dehiscence. Discussed with general surgeon per surgery superior aspect of the wound was dehiscent after removal of aixa.Surgery removal of BALAJI drain on 06/01. Repeat CT on 06/01- More pronounced fluid collection in the left abdomen below the spleen, 8.9 x 6.4cm, free fluid in the abdomen and pelvis, and Ascites -Abscess culture from 05/25 grew edna albicans ?Repeat CT abdomen pelvis shows abscess collection lower left abdomen has markedly decreased in size and the accordion drains have no output this morning Plan: Management by primary hospitalist team #Acute blood loss anemia, stable Likely related to perforated ulcer Hgb stable ~7.7 Plan: Management by primary hospitalist team #Acute tubular necrosis, requiring hemodialysis #Acute Hypoxic Respiratory failure #Acute Upper GI bleed - stable #Hyperlipidemia #Acute blood loss anemia, stable #Acute encephalopathy-resolved #Septic Shock - resolved #Hypoosmolar Hyponatremia, resolved Patient seen and care discussed with my attending physician, Dr. Susan Mathews, PGY-1 Attending Provider Attestation/Addendum I have personally seen and examined the patient separately on the above date of service and discussed the plan of care with the resident. I reviewed the resident Dr. Hernandes consultation progress note and agree with the resident findings and plan in the note above and have also edited the documentation to reflect my findings and plan. Jalen Davis M.D. Interventional Cardiology
[2024-06-19 09:37] LABS: Magnesium 2.3 mg/dL (1.6-2.6)
[2024-06-19] MEDS: ALBUMIN HUMAN 25% IVPB 25 GM/100 ML BTL IV (10:00)
--- NOTE | 2024-06-19 10:18 | PC.NURSE ---
bp trending back up, pt remains w/o distress noted and denies all s/s of hypotension. UF goal lowered to 1l as tolerated will monitor
--- NOTE | 2024-06-19 10:27 | PC.NURSE ---
bp low, uf off, pt remains awake and denies all s/s of hypotension, will admin prn albumin and cont. to monitor
--- NOTE | 2024-06-19 10:32 | PC.NURSE ---
bp trending low again ,pt remains asymptomatic, uf off will cont. to monitor
--- NOTE | 2024-06-19 10:35 | PC.NURSE ---
bp trending back up ,UF goal lowered to 0.5L as tolerated will cont. to monitor
[2024-06-19] MEDS: EPOETIN ALFA-EPBX INJ 10,000 UNIT/ML VIAL (ESRD) 10000 UNIT SC (10:55)
--- NOTE | 2024-06-19 11:01 | PC.NURSE ---
pt tolerating tx ,uf goal increased to 0.6L as tolerated will cont. to monitor
--- NOTE | 2024-06-19 11:47 | PC.NURSE ---
pt tolerating tx, blood product being administered in amount of 700ml, uf goal increased to accodate.
[2024-06-19] MEDS: MethylPREDNISolone SOD SUCC 62.5 MG/ML 2ML VIAL 125 MG IVP (13:25)
[2024-06-19] MEDS: SODIUM BICARBONATE 650 MG TABLET 325 MG PO (13:26)
[2024-06-19] MEDS: HEPARIN SOD INJ 1000 UNIT/ML VIAL 10 ML 3500 UNIT IV (13:31)
--- NOTE | 2024-06-19 13:49 | ESPR_ITS ---
Documentation for date of: 06/19/24 Subjective Subjective Interval history: Mr. Castellanos is a [id number] with past medical history of prediabetes, CKD, hypertension, history of ulcers who was admitted to [facility] for sepsis secondary to pneumonia and acute metabolic encephalopathy. Patient was BIBA to the ED after being found unconscious on the floor. According to the son on admission patient's daughter found the patient at 3 AM passed out on the floor and unresponsive. Family is unaware along the patient was on the floor. 2 days ago patient started to develop abdominal pain and weakness all over her body associated with some diarrhea and shortness of breath. Patient's abdominal pain comes and goes from right side to left side of the abdomen. ED course patient was hypertensive tachycardic tachypneic and was saturating 92% on 5 L nasal cannula ED labs significant for WBCs 24.3, bicarb 19.6, glucose 259, lactic acid 2.2, BNP 304, troponin 0.09. 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, colonic diverticulosis, Cervical spine CT showed 3 mm radiolucency in C3 vertebral body Chest CTA showed mild aneurysmal dilatation ascending thoracic aorta AP dimension 4.3 cm and pulmonary artery hypertension with moderate vascular congestion Face CT shows no acute facial fracture, Lumbar spine CT shows no acute lumbar fracture severe acquired spinal stenosis L4-L5, Thoracic spine CT showed no acute fracture Brain MRI with MRA showed equally focal restricted diffusion brainstem medullary level significant stenosis of right P1 P2 segment posterior cerebral artery Postadmission, cardiology was consulted on admission because of elevated troponins, suspicion of NSTEMI type II, patient has acute decompensated heart failure per cardiology evaluation, neurology consulted because of patient's acute metabolic encephalopathy and GI was consulted for suspicion of GI bleed. Eventually on 05/15 rapid response was called for worsening chest pain, patient's map was consistently in 70s, was tachycardic tachypneic. CT angiogram showed pneumoperitoneum multiple air droplets adjacent to and within wall of stomach with suspicion of gastric perforation. General surgery was consulted for emergency surgery and patient had exploratory laparotomy with repair of perforated gastric ulcer with an omental patch. Patient was upgraded to ICU postop for further management patient currently on Levophed and vasopressor due to distributive shock, currently sedated and intubated on mechanical ventilation. Nephrology consulted due to concern of ADILSON. 06/10/2024 patient currently seen in telemetry. Patient complaining of abdominal pain. Scheduled for dialysis today. Although did have some trouble with catheter before. tPA was placed. Catheter could not be exchanged yesterday. Will monitor catheter function closely. Unfortunately IR not available until Wednesday. 06/11/2024 patient currently seen in telemetry. Sick looking. Did receive dialysis yesterday. Still having some abdominal discomfort.WBC 28.7, hemoglobin 7.8, platelets 261. Sodium 134, potassium 4.8, BUN 53, creatinine 5.6, magnesium 2.4, LFTs normal, albumin 4.0 chest x-ray showed pneumonia/mild heart failure. CT abdomen repeat showed multiple abdominal and pelvic abscesses. Prognosis remains guarded. 06/17/2024 patient supposed to be discharged to rehab today. Alert and awake. Daughter at bedside. Outpatient dialysis TTS schedule done. Try to do short run of dialysis today however patient had an significant hypotension I had to stop dialysis. After giving 200 cc fluid her blood pressure returned back to normal. Discharge planning per primary team. 06/18/2024 patient currently seen in telemetry. She is more alert and awake today. Denies any chest pain. Still having some cough and shortness of breath with wheezing. Significant functional decline. Denies any abdominal pain today. Labs, medications reviewed. She did have a hypotensive episode at dialysis yesterday and currently on midodrine. Discharge planning to rehab once stable. plan of care discussed with primary team. 06/19/2024, patient was seen and examined at bedside. Patient was awake and alert however she was little bit anxious. Denied any chest pain. On auscultation patient was found to be having wheezing, and also coarse crepitations bilaterally. Yesterday dialysis was stopped because the patient became hypotensive. Today her blood pressure is good to resume another session of dialysis. Exam Vital Signs Temp Pulse Resp BP Pulse Ox O2 Del Method O2 Flow Rate 97.7 F 104 H 20 116/80 97 Nasal Cannula 1 06/19/24 12:34 06/19/24 13:12 06/19/24 12:34 06/19/24 13:12 06/19/24 12:34 06/19/24 12:00 06/19/24 12:34 FiO2 4 06/18/24 16:00 Narrative Exam PatientGEN: AOx3, flat mood and affect, in semi-sitting position HEENT: NC/AC, oral mucosa moist, neck supple CVS: RRR, S1-S2 present, no murmurs appreciated RESP: Diffuse crepitations bilaterally, wheezing on the right side(faint) GI: soft, non distended, non tender, NBS MSK: able to move all 4 limbs however significant generalized weakness, +1 lower limb SKIN: warm and dry ACADEMIC INTERVENTIONIST: CN II-XII and Sensation grossly intact. Objective Labs 06/18/24 05:50 06/19/24 03:57 Labs: Laboratory Results - last 24 hr 06/03/24 06/19/24 06/19/24 13:00 03:57 08:19 Sodium 132 L Potassium 4.9 D Chloride 96 L Carbon Dioxide 18.9 L Anion Gap 17 H BUN 54 H Creatinine 6.2 H* D Estim Creat Clear Calc 7.2 L eGFR 7 L* BUN/Creatinine Ratio 9 L Glucose 83 Calculated Osmolality 278 Calcium 9.3 Corrected Calcium 9.5 Phosphorus 9.6 H Magnesium 2.3 Albumin 3.7 Random Vancomycin 20.5 Blood Type Antibody Screen Crossmatch See Detail Blood Bank Wristband ID 06/19/24 08:41 Sodium Potassium Chloride Carbon Dioxide Anion Gap BUN Creatinine Estim Creat Clear Calc eGFR BUN/Creatinine Ratio Glucose Calculated Osmolality Calcium Corrected Calcium Phosphorus Magnesium Albumin Random Vancomycin Blood Type O Positive Antibody Screen NEGATIVE Crossmatch See Detail Blood Bank Wristband ID Yes ABG Interpretation ABG results: 05/13/24 05/15/24 05/15/24 08:29 15:28 16:03 ABG pH 7.39 7.05 L* D 7.17 L* D ABG pCO2 31 L 63 H D 45 D ABG pO2 78 L 38 L* D 84 D ABG HCO3 19 L 18 L 16 L ABG O2 Saturation 96 59 L 96 ABG Base Excess -5 L -12 L -11 L VBG pH VBG pCO2 VBG pO2 VBG Base Excess 05/16/24 05/17/24 05/18/24 04:38 04:03 04:20 ABG pH 7.28 L D 7.38 D 7.49 H D ABG pCO2 34 D 28 L 30 L ABG pO2 96 85 66 L ABG HCO3 16 L 17 L 23 ABG O2 Saturation 98 97 94 ABG Base Excess -10 L -8 L 0 VBG pH VBG pCO2 VBG pO2 VBG Base Excess 05/19/24 05/20/24 05/21/24 09:05 06:05 22:35 ABG pH 7.30 L D 7.41 D ABG pCO2 49 H D 42 ABG pO2 63 L 63 L ABG HCO3 24 27 H ABG O2 Saturation 91 93 ABG Base Excess -3 2 VBG pH 7.31 L VBG pCO2 50 VBG pO2 39 VBG Base Excess -2 05/26/24 05/29/24 04:17 12:28 ABG pH 7.38 7.42 ABG pCO2 42 35 ABG pO2 81 L 67 L ABG HCO3 25 23 ABG O2 Saturation 97 95 ABG Base Excess 0 -2 VBG pH VBG pCO2 VBG pO2 VBG Base Excess Quality Measures Quality Measures none Advance care planning discussed with:: patient Assessment & Plan Assessment Current Active Medications: Generic Name Dose Route Start Last Admin Trade Name Freq PRN Reason Stop Dose Admin Acetaminophen 650 mg 06/09/24 14:11 06/19/24 05:19 Acetaminophen 325 Mg Tablet PO 07/09/24 14:10 650 mg Q6HR PRN Administration Fever >101 and pain 1-3 Amiodarone HCl 200 mg 05/29/24 15:00 06/19/24 08:40 Amiodarone Hcl 200 Mg Tablet PO 06/28/24 14:59 200 mg BID ANGELICA Administration Apixaban 5 mg 06/13/24 21:00 06/19/24 08:39 Apixaban 2.5 Mg Tablet PO 07/13/24 20:59 5 mg BID ANGELICA Administration Benzocaine 1 lozenge 05/31/24 11:53 06/09/24 23:07 Benzocaine/Menthol 1 Lozenge PO 06/30/24 11:52 1 lozenge Q4HR PRN Administration Sore throat Dextrose 25 ml 05/24/24 15:43 Dextrose 50%-Water Inj 50 Ml Syringe IV 06/23/24 15:42 Q15MIN PRN BG 50-70 responsive npo pt Dextrose 50 ml 05/24/24 15:43 Dextrose 50%-Water Inj 50 Ml Syringe IV 06/23/24 15:42 Q15MIN PRN BG <50 OR BG <70 & pt unresponsive Dronabinol 5 mg 06/07/24 10:40 06/19/24 08:39 Dronabinol 2.5 Mg Capsule PO 07/07/24 10:39 5 mg BIDAC ANGELICA Administration Glucagon 1 mg 05/24/24 15:43 Glucagon Inj 1 Mg Vial IM Q15MIN PRN BG <70, and no IV access Guaifenesin 200 mg 06/10/24 08:30 06/19/24 13:26 Guaifenesin Syrup 200 Mg/10 Ml Udc PO 07/10/24 08:29 200 mg QID ANGELICA Administration Protocol Heparin Sodium (Porcine) 3,500 unit 06/16/24 08:22 06/19/24 13:31 Heparin Sod Inj 1000 Unit/Ml Vial 10 Ml IV 06/30/24 08:21 3,500 unit X1 PRN Administration DIALYSIS Micafungin Sodium 100 mg/ 100 mls @ 100 mls/hr 06/10/24 13:56 06/19/24 08:42 Sodium Chloride IV 06/25/24 13:55 100 mls/hr QDAY ANGELICA Administration Insulin Glargine 12 unit 05/25/24 09:00 06/19/24 08:42 Insulin Glargine (Lantus) 5 Unit/0.05 Ml (Per 5 Units) SC 06/24/24 08:59 12 unit QDAY ANGELICA Administration Insulin Human Lispro 0 unit 06/16/24 07:30 06/19/24 13:26 Insulin Lispro (Admelog) 1 Unit/0.01 Ml Unit SC 07/16/24 07:29 Not Given AC [facility] Protocol Ipratropium [place] 0.5 mg 06/19/24 11:00 06/19/24 11:03 Ipratropium Rt 0.5 Mg/ 2.5 Ml Nebu INH 07/19/24 10:59 Not Given Q4HRRT ANGELICA Levalbuterol HCl 0.63 mg 06/19/24 09:25 Levalbuterol Rt 0.63 Mg/3 Ml Nebu INH 07/19/24 10:59 Q4HRRT PRN wheezing Lidocaine 1 patch 05/30/24 09:16 06/17/24 09:23 Lidocaine 5% 1 Patch TOP 06/29/24 09:15 1 patch DAILY PRN Administration BACK PAIN Midodrine 10 mg 06/17/24 14:00 06/19/24 13:12 Midodrine 5 Mg Tablet PO 07/17/24 13:59 Not Given TID ANGELICA Mirtazapine 15 mg 06/13/24 21:00 06/18/24 20:41 Mirtazapine 15 Mg Tablet PO 07/13/24 20:59 15 mg HS ANGELICA Administration Pharmacy Consult 1 each 06/10/24 12:15 Vancomycin Pharmacy To Dose 1 Each Each IV 07/10/24 12:14 QDAY PRN CONSULT Polyethylene Glycol 17 gm 06/12/24 15:36 Polyethylene Glycol 17 Gm Packet PO 07/09/24 10:44 BID PRN constipation Protocol Sennosides 1 tab 06/09/24 10:45 06/19/24 08:38 Senna Tablet PO 07/09/24 10:44 1 tab QDAY ANGELICA Administration Protocol Sodium Bicarbonate 325 mg 06/19/24 09:00 06/19/24 13:26 Sodium Bicarbonate 650 Mg Tablet PO 07/19/24 08:59 325 mg QDAY ANGELICA Administration Sodium Chloride 3 ml 05/24/24 19:00 06/19/24 08:44 Sodium Chloride Rt Jimena 0.9% 3 Ml Nebu INH 06/23/24 18:59 3 ml PRN PRN Administration SOLN Timolol Maleate 1 drop 05/28/24 18:15 06/19/24 08:43 Timolol Op Jimena 0.5% 5 Ml Btl BOTH EYES 06/27/24 18:14 1 drop DAILY ANGELICA Administration Plan Mr. Castellanos is a [id number] with past medical history of prediabetes, CKD, hypertension, history of ulcers who was admitted to [facility] for sepsis secondary to pneumonia and acute metabolic encephalopathy. Patient is currently sedated intubated in ICU status post exploratory laparotomy with repair of perforated gastric ulcer with an omental patch. Nephrology consulted for acute kidney injury. Assessment and plan #Acute kidney injury on dialysis M/W/F #Acute Tubular Necrosis 2/2 shock # Fluid overload Patient currently seems to be in ATN probably ischemic from fluctuations in blood pressure and underlying shock- started her on dialysis. Plan ? Dialysis today ? Pharmacy to dose medications ? Avoid nephrotoxic medications ? Continue strict in and out ? Recommend to monitor fluid that was brought from home as it may contain high salt which may worsen her fluid overload. #Acute ischemic stroke #Acute decompensated HF #Hyperlipidemia #Primary Hypertension #Acute Hypoxic Respiratory failure #Peritonitis secondary to perforated gastric ulcer- s/p sx, drains removed #Acute Upper GI bleed #Diabetes Mellitus type II #Acute anemia Plan ? Follow-up with the primary team recommendations Thank you for your consultation, please do not hesitate to reach out if you have any concerns or questions. All above problems per primary team. Prognosis remains guarded. - Patient's plan and care discussed with my attending, Dr. Mata Sifuentes MD Internal Medicine PGY-2 Attending Provider Attestation/Addendum Patient seen and examined with resident physician Dr. Barton. Note reviewed, agree with findings and recommendations. Patient noted to be anemic. 2 units of blood transfusion ordered. Due to her fluid overload decided to do extra dialysis today. Blood pressure still remains on the lower side. Metoprolol was discontinued by cardiology. Currently on amiodarone. Patient currently on dialysis. Tolerating dialysis without any problems. Hemodialysis for 3 hours, 2K, ultrafiltration 2 L, Epogen 6000, no heparin ordered. 2 units PRBC ordered with dialysis Plan of care discussed with the dialysis nurse. Please see dialysis flowsheet for further details.
[2024-06-19] MEDS: IPRATROPIUM RT 0.5 MG/ 2.5 ML NEBU INH ×3 (14:18→23:54)
[2024-06-19] MEDS: LEVALBUTEROL RT 0.63 MG/3 ML NEBU INH ×3 (14:19→23:53)
--- NOTE | 2024-06-19 15:27 | PC.SS ---
Follow up note: SS spoke to Monie who explained the dialysis chair time provided (T,Th, & Sat at 10am) is not available and pt is requrieng a new dialysis chair time. Dialysis chair time is pending. Pt will have swallow study tomorrow.
--- NOTE | 2024-06-19 17:06 | PD.IMPROG ---
Documentation for date of: 06/19/24 Subjective Subjective Interval history: On dialysis for end-stage renal disease P.o. intake remains poor Hemoglobin hematocrit 7.7 and 24.3 with an INR of 1.4 Exam Vital Signs Temp Pulse Resp BP Pulse Ox O2 Del Method O2 Flow Rate 97.7 F 108 H 19 116/80 100 Nasal Cannula 2 06/19/24 12:34 06/19/24 14:26 06/19/24 14:26 06/19/24 13:12 06/19/24 14:26 06/19/24 12:00 06/19/24 14:26 FiO2 4 06/18/24 16:00 Constitutional Comments: Chronically ill-appearing Routine Respiratory Exam Comments: Decreased breath sounds and crepitations Objective Labs 06/18/24 05:50 06/19/24 03:57 Labs: Laboratory Results - last 24 hr 06/03/24 06/19/24 06/19/24 13:00 03:57 08:19 Sodium 132 L Potassium 4.9 D Chloride 96 L Carbon Dioxide 18.9 L Anion Gap 17 H BUN 54 H Creatinine 6.2 H* D Estim Creat Clear Calc 7.2 L eGFR 7 L* BUN/Creatinine Ratio 9 L Glucose 83 Calculated Osmolality 278 Calcium 9.3 Corrected Calcium 9.5 Phosphorus 9.6 H Magnesium 2.3 Albumin 3.7 Random Vancomycin 20.5 Blood Type Antibody Screen Crossmatch See Detail Blood Bank Wristband ID 06/19/24 08:41 Sodium Potassium Chloride Carbon Dioxide Anion Gap BUN Creatinine Estim Creat Clear Calc eGFR BUN/Creatinine Ratio Glucose Calculated Osmolality Calcium Corrected Calcium Phosphorus Magnesium Albumin Random Vancomycin Blood Type O Positive Antibody Screen NEGATIVE Crossmatch See Detail Blood Bank Wristband ID Yes Impressions Impression: # Failure to thrive # Poor p.o. intake encourage p.o. intake # End-stage renal disease on hemodialysis # Intra-abdominal abscesses requiring IR drainage ABG Interpretation ABG results: 05/13/24 05/15/24 05/15/24 08:29 15:28 16:03 ABG pH 7.39 7.05 L* D 7.17 L* D ABG pCO2 31 L 63 H D 45 D ABG pO2 78 L 38 L* D 84 D ABG HCO3 19 L 18 L 16 L ABG O2 Saturation 96 59 L 96 ABG Base Excess -5 L -12 L -11 L VBG pH VBG pCO2 VBG pO2 VBG Base Excess 05/16/24 05/17/24 05/18/24 04:38 04:03 04:20 ABG pH 7.28 L D 7.38 D 7.49 H D ABG pCO2 34 D 28 L 30 L ABG pO2 96 85 66 L ABG HCO3 16 L 17 L 23 ABG O2 Saturation 98 97 94 ABG Base Excess -10 L -8 L 0 VBG pH VBG pCO2 VBG pO2 VBG Base Excess 05/19/24 05/20/24 05/21/24 09:05 06:05 22:35 ABG pH 7.30 L D 7.41 D ABG pCO2 49 H D 42 ABG pO2 63 L 63 L ABG HCO3 24 27 H ABG O2 Saturation 91 93 ABG Base Excess -3 2 VBG pH 7.31 L VBG pCO2 50 VBG pO2 39 VBG Base Excess -2 05/26/24 05/29/24 04:17 12:28 ABG pH 7.38 7.42 ABG pCO2 42 35 ABG pO2 81 L 67 L ABG HCO3 25 23 ABG O2 Saturation 97 95 ABG Base Excess 0 -2 VBG pH VBG pCO2 VBG pO2 VBG Base Excess Assessment & Plan A&P Narrative Ms. Castellanos is a 69-year-old female with past medical history significant for hypertension, diabetes and history of gastric ulcers who presented to the ED on 05/13/2024 after she was found unconscious on the floor. Per chart reviewing prior to this unconsciousness patient was having abdominal pain and generalized weakness with diarrhea and shortness of breath for 2 days. Patient was admitted to the hospital for treatment and management of sepsis secondary to pneumonia. Patient was given 1 L normal saline and started on ceftriaxone and azithromycin. patient underwent ex lap surgery for perforated gastric ulcer. Patient remained intubated postop and was upgraded to the ICU. Patient continues to be on dialysis after downgrade, has BALAJI and accordion drain intact, completed bowel rest, was started on dysphagia 1 diet, surgery following case closely, will continue to monitor. Patient continue with dialysis, white count coming down, may want to reconsider adjusting antibiotics. Follow-up with ID recommendations. #New onset A-fib with RVR, improving, rate controlled New onset of Afib, likely related to septic shock requiring pressor support and increased demand from perforated ulcer complicated by abdominal abscesses Pt appears to still be in A-fib, rate controlled, 90s to mid 100s Previous EKG shows a-fib w/RVR CHADVASC: 5 Pts 7.2 % stroke risk per year HAS-BLED score: 3, high risk of major bleeding Patient continues to be rate controlled, rate in the 90s Plan: ?Continue with Oral Amio 200 mg BID ?Continue with Eliquis 5 mg twice daily 06/17/2024: Patient did have an rapid response today during dialysis with hypotension dialysis was held. Nephrology team following and will plan the next session of dialysis. Patient apparently did not receive her metoprolol today and amiodarone. Recommend to continue with amiodarone for now and hold off on the metoprolol. Telemetry reviewed and heart rate is optimally controlled with 101-120 bpm. Patient has significant wheezing during the examination and also patient is active infection for which she is on antibiotics as well as antifungals since the surgery which is contributing to the A-fib with RVR. Primary team planning to discharge the patient when stable and awaiting SNF placement. #Acute exacerbation of HFpEF #HFpEF EF 55 to 60% #History of primary hypertension -Echo 05/16/2024 -estimated EF of 55 to 60%, stage I diastolic dysfunction noted, Moderate to severe posterior MAC Pt has new onset of ESRD requiring HD, requiring midodrine 10 mg QID to tolerate HD Not resuming home amlodipine at this time due to patient being A-fib and blood pressure eventually be controlled with beta-christian We recommend to give midodrine 5 to 10 mg 15 to 30 minutes before dialysis, can give additional 2.5 to 5 mg after dialysis as long as 3 hours after predialysis dose Half-life of midodrine is 9 to 10 hours and patient with CKD something to keep in mind Patient to continue with dialysis as electrolytes are abnormal including phosphorus. Plan: ?Resume GDMT as able, metoprolol on board right now, as above ?Fluid restriction ?Daily weights ?Strict ins and outs ?Keep potassium and magnesium above 4 and 2 respectively #Hx of Diabetes Mellitus type II Most recent A1c 05/21/2024: 6.2 Plan: Management by primary team #Perforated gastric ulcer #Pneumoperitoneum #Peritonitis secondary to perforated gastric ulcer #Abdominal Abscess, s/p percutaneous drainage x3 Patient found to have tender abdomen, rigidity in the epigastrium, chest x-ray showed elevation of hemidiaphragm, CT abdomen showed pneumoperitoneum, concern for perforated viscus, general surgeon Dr. Santana was consulted for emergency laparotomy and possible repair of perforated gastric ulcer. Repeat CT abd/pel on 05/20 revealed Pneumoperitoneum, orogastric tube in the stomach, mild free fluid adjacent to the stomach and anterior to the pancreas. s/p Exploratory laparotomy & repair of perforated gastric ulcer - 05/15. 06/01/24: Overnight there was concern of wound dehiscence. Discussed with general surgeon per surgery superior aspect of the wound was dehiscent after removal of aixa.Surgery removal of BALAJI drain on 06/01. Repeat CT on 06/01- More pronounced fluid collection in the left abdomen below the spleen, 8.9 x 6.4cm, free fluid in the abdomen and pelvis, and Ascites -Abscess culture from 05/25 grew edna albicans ?Repeat CT abdomen pelvis shows abscess collection lower left abdomen has markedly decreased in size and the accordion drains have no output this morning Plan: Management by primary hospitalist team #Acute blood loss anemia, stable Likely related to perforated ulcer Hgb stable ~7.7 Plan: Management by primary hospitalist team #Acute tubular necrosis, requiring hemodialysis #Acute Hypoxic Respiratory failure #Acute Upper GI bleed - stable #Hyperlipidemia #Acute blood loss anemia, stable #Acute encephalopathy-resolved #Septic Shock - resolved #Hypoosmolar Hyponatremia, resolved Management of rest of the medical conditions as per primary team and other consultants. Thank you for the consult and allowing me to participate in the care of the patient. Cardiology will continue to follow. Jalen Davis M.D. Interventional Cardiology Time Spent With Patient Time: Total time spent is greater than 50% in coordination of care (as documented) at patient's floor/unit and/or counseling patient:
[2024-06-19] MEDS: MIRTAZAPINE 15 MG TABLET PO (21:10)
--- NOTE | 2024-06-19 22:29 | PD.NEUROPROG ---
Documentation for date of: 06/19/24 Subjective Subjective Interval history: Patient was seen in telemetry today at the bedside, not much respiratory distress noted today. She is resting at present Exam - Neurology Vital Signs Temp Pulse Resp BP Pulse Ox O2 Del Method O2 Flow Rate 97.4 F 101 H 26 H 141/94 H 98 Nasal Cannula 1 06/19/24 20:00 06/19/24 21:08 06/19/24 20:00 06/19/24 21:08 06/19/24 20:00 06/19/24 20:00 06/19/24 20:00 FiO2 4 06/18/24 16:00 Narrative Exam GENERAL APPEARANCE: Well-developed, obese built female in mild distress HEENT: Normocephalic, atraumatic, extraocular movements intact. Pupils: Equal reacting to light NECK: Supple, no JVD or bruits. CARDIOVASULAR: Heart: S1, S2 heard, irregular without S3-S4 or murmur no rubs or gallops. LUNGS/CHEST: Bilateral Rales and rhonchi heard. ABDOMEN: Soft, nontender, with normal bowel sounds. No pulsatile masses. No rebound, rigidity, or guarding. Normal inspection and palpation. EXTREMITIES: Significant edema in both upper and lower extremities. SKIN: Warm and dry without rashes. Normal inspection. MUSCULOSKELETAL: No cervical, thoracic, lumbar or midline bony tenderness. Normal inspection. NEURO: Resting, exam is limited. PSYCHIATRIC: Mood and affect: Limited Objective Labs 06/20/24 05:54 06/20/24 05:54 Labs: Laboratory Results - last 24 hr 06/03/24 06/19/24 06/19/24 13:00 03:57 08:19 Sodium 132 L Potassium 4.9 D Chloride 96 L Carbon Dioxide 18.9 L Anion Gap 17 H BUN 54 H Creatinine 6.2 H* D Estim Creat Clear Calc 7.2 L eGFR 7 L* BUN/Creatinine Ratio 9 L Glucose 83 Calculated Osmolality 278 Calcium 9.3 Corrected Calcium 9.5 Phosphorus 9.6 H Magnesium 2.3 Albumin 3.7 Random Vancomycin 20.5 Blood Type Antibody Screen Crossmatch See Detail Blood Bank Wristband ID 06/19/24 08:41 Sodium Potassium Chloride Carbon Dioxide Anion Gap BUN Creatinine Estim Creat Clear Calc eGFR BUN/Creatinine Ratio Glucose Calculated Osmolality Calcium Corrected Calcium Phosphorus Magnesium Albumin Random Vancomycin Blood Type O Positive Antibody Screen NEGATIVE Crossmatch See Detail Blood Bank Wristband ID Yes ABG Interpretation ABG results: 05/13/24 05/15/24 05/15/24 08:29 15:28 16:03 ABG pH 7.39 7.05 L* D 7.17 L* D ABG pCO2 31 L 63 H D 45 D ABG pO2 78 L 38 L* D 84 D ABG HCO3 19 L 18 L 16 L ABG O2 Saturation 96 59 L 96 ABG Base Excess -5 L -12 L -11 L VBG pH VBG pCO2 VBG pO2 VBG Base Excess 05/16/24 05/17/24 05/18/24 04:38 04:03 04:20 ABG pH 7.28 L D 7.38 D 7.49 H D ABG pCO2 34 D 28 L 30 L ABG pO2 96 85 66 L ABG HCO3 16 L 17 L 23 ABG O2 Saturation 98 97 94 ABG Base Excess -10 L -8 L 0 VBG pH VBG pCO2 VBG pO2 VBG Base Excess 05/19/24 05/20/24 05/21/24 09:05 06:05 22:35 ABG pH 7.30 L D 7.41 D ABG pCO2 49 H D 42 ABG pO2 63 L 63 L ABG HCO3 24 27 H ABG O2 Saturation 91 93 ABG Base Excess -3 2 VBG pH 7.31 L VBG pCO2 50 VBG pO2 39 VBG Base Excess -2 05/26/24 05/29/24 04:17 12:28 ABG pH 7.38 7.42 ABG pCO2 42 35 ABG pO2 81 L 67 L ABG HCO3 25 23 ABG O2 Saturation 97 95 ABG Base Excess 0 -2 VBG pH VBG pCO2 VBG pO2 VBG Base Excess Assessment & Plan Additional Assessment & Plan Additional Plan: 69-year-old female with past medical history of CKD stage III, prediabetes, hypertension who was found unconscious in her room. As well as diarrhea and shortness of breath. Admitted for sepsis secondary to pneumonia and acute metabolic encephalopathy #Acute metabolic encephalopathy- currently in telemetry, significant improvement noted, close to baseline #Generalized weakness --Brain MRI with MRA shows significant stenoses in posterior cerebral artery, no acute infarction noted -Will continue with Eliquis -No need to repeat MRI even though the head CT from 05/20/2024 showed left cerebellar hypodensity as the management does not change. Continue with the passive range of motion exercises prevent contracture Physical therapy as she tolerates. Patient is on dialysis every other day.
[2024-06-20] VITALS (31 sets, daily range): BP systolic 92–179; BP diastolic 51–113; PULSE 53–133; RESP 15–27; TEMP 35.9–36.4; O2SAT 95–100; BMI 34.8
[2024-06-20] MEDS: IPRATROPIUM RT 0.5 MG/ 2.5 ML NEBU INH ×5 (03:25→23:21)
[2024-06-20] MEDS: LEVALBUTEROL RT 0.63 MG/3 ML NEBU INH ×3 (03:25→23:21)
[2024-06-20 06:09] LABS: Basophils % (Auto) 1 % (0-2.5); Eosinophils % (Auto) 0 % (0-10); Hematocrit 32.4 % (36.0-46.0); Hemoglobin 10.6 g/dL (12.0-16.0); Immature Granulocytes % (Auto) 1 % (0-0); Immature Granulocytes Auto 0.03 Thou/mm3 (0.00-0.00); Lymphocytes # (Auto) 2.1 Thou/mm3 (1.0-4.8); Lymphocytes % (Auto) 47 % (10-50); Mean Corpuscular HGB Conc 32.7 g/dl (31.0-37.0); Mean Corpuscular Hemoglobin 26.9 pg (25.0-35.0); Mean Corpuscular Volume 82 fL (80-100); Monocytes # (Auto) 0.1 Thou/mm3 (0.0-0.8); Monocytes % (Auto) 2 % (0-12); Neutrophils # (Auto) 2.3 Thou/mm3 (1.8-7.7); Neutrophils % (Auto) 50 % (37-80); Nucleated Red Blood Cell # 0.12 Thou/mm3 (0.00-0.00); Nucleated Red Blood Cell % 3 /100 WBC (0); Platelet Count 256 Thou/mm3 (140-440); RDW Standard Deviation 58.2 fL (36.4-46.3); Red Blood Count 3.94 Miln/mm3 (4.00-5.20); White Blood Count 4.6 Thou/mm3 (3.6-11.0)
[2024-06-20] MEDS: ACETAMINOPHEN 325 MG TABLET 650 MG PO ×2 (06:28→19:38)
[2024-06-20 06:38] LABS: Alanine Aminotransferase 12 U/L (10-49); Albumin, Serum 4.1 gm/dL (3.4-4.8); Albumin/Globulin Ratio 1.1 (1.2-2.2); Alkaline Phosphatase 164 U/L (46-116); Anion Gap 15 (7-16); Aspartate Amino Transferase 68 U/L (0-34); BUN/Creatinine Ratio 10 Ratio (12-20); Bilirubin,Total 0.9 mg/dL (0.3-1.2); Blood Urea Nitrogen 44 mg/dL (9-23); Calcium 9.5 mg/dL (8.3-10.6); Calcium (Corrected) 9.5 mg/dL (8.5-10.1); Carbon Dioxide 26.7 mMol/L (20.0-31.0); Chloride 95 mMol/L (98-107); Creatinine (Component) 4.2 mg/dL (0.6-1.3); Estimated Creatinine Clearance 10.8 mL/min (>60); Globulin 3.8 gm/dL (2.3-3.5); Glucose 167 mg/dL (74-106); Osmolality,Calculated 289 (275-295); Phosphorous 7.5 mg/dL (2.4-5.1); Potassium 3.5 mMol/L (3.4-5.1); Sodium 137 mMol/L (136-145); Total Protein 7.9 gm/dL (5.7-8.2); Vancomycin,Random 14.9 mcg/mL; eGFR 11 See Note
[2024-06-20] MEDS: droNABinol 2.5 MG CAPSULE 5 MG PO ×2 (08:00→18:11)
[2024-06-20] MEDS: INSULIN LISPRO (AdmeLOG) 1 UNIT/0.01 ML UNIT SC ×2 (08:01→18:11)
--- NOTE | 2024-06-20 08:58 | PC.SS ---
Follow up note: SS followed up with Monie at [facility] who explained patient's dialysis chair time is still pending. SS confirmed with sonRoberto pt will be going to [facility] [place]. Pt is waiting for a swallow study.
--- NOTE | 2024-06-20 09:27 | PD.RESPRO ---
Documentation for date of: 06/20/24 Subjective Subjective Interval history: 06/19/2024: Pt examined at bedside today. Telemetry reviewed, pt's max HR 120, rate controlled 90s-100s. Patient reports she is doing well. She is sitting upright in her chair and is improving. Patient is scheduled to get dialysis today phosphorous 9.6, BUN 54, Cr 6.2. Pt denies CP, palpitations and SOB. Denies having a hx of smoking or COPD. No other complaints at this time. 06/20/2024: Pt examined while in dialysis chair today. No acute overnight events on telemetry, rate seems to be controlled in the 100s to 110s, max rate 150. Patient reports she is doing well but is requesting some pain medicine for her abdomen and back. She seems much more awake and less lethargic from yesterday. There was concern for aspiration or patient as patient will cough up frequently after she eats or drinks therefore a videofluoroscopy was ordered. Her BUN/creatinine is 44 and 4.2 respectively, mag and potassium 2.0 and 3.5 respectively, phosphorus 7.5, white count of 4.6, hemoglobin of 10.6. Hematology panel looks to be elevated, patient most likely has hemoconcentrated sample. Will follow-up with videofluoroscopy results continue with breathing treatments, patient is improving. No other complaints at this time Exam Vital Signs Temp Pulse Resp BP Pulse Ox O2 Del Method O2 Flow Rate 97.6 F 89 22 H 174/103 H 97 Nasal Cannula 3 06/20/24 08:28 06/20/24 09:00 06/20/24 08:28 06/20/24 09:00 06/20/24 08:28 06/20/24 04:00 06/20/24 08:28 FiO2 4 06/20/24 08:28 Narrative Exam General: AAOx3, NAD, in dialysis chair, very awake this morning HEENT: Moist mucous membranes, conjunctiva clear, EOMI, PERRLA, Cardiovascular: S1, S2, radial pulses +2 bilat, irregularly irregular rhythm Pulmonary: Crackles in lobes heard GI: No tenderness to light or deep palpitation, no guarding, rigidity, Extremities: Trace edema in lower extremities bilaterally, dorsalis pedis pulses +2 bilaterally Neuro: AAOx3, no focal motor or sensory deficits in the UE or LE bilat Psych: Cooperative Objective Labs 06/20/24 05:54 06/20/24 05:54 Labs: Laboratory Results - last 24 hr 06/03/24 06/19/24 06/19/24 13:00 08:19 08:41 WBC RBC Hgb Hct MCV MCH MCHC RDW Std Deviation Plt Count Neut % (Auto) Lymph % (Auto) [place] % (Auto) Eos % (Auto) Baso % (Auto) Neut # (Auto) Lymph # (Auto) [place] # (Auto) Eos # (Auto) Baso # (Auto) Immature Gran # (Auto) Absolute Nucleated RBC Immature Gran % Nucleated RBC % Sodium Potassium Chloride Carbon Dioxide Anion Gap BUN Creatinine Estim Creat Clear Calc eGFR BUN/Creatinine Ratio Glucose Calculated Osmolality Calcium Corrected Calcium Phosphorus Magnesium 2.3 Total Bilirubin AST ALT Alkaline Phosphatase Total Protein Albumin Globulin Albumin/Globulin Ratio Random Vancomycin Blood Type O Positive Antibody Screen NEGATIVE Crossmatch See Detail See Detail Blood Bank Wristband ID Yes 06/20/24 05:54 WBC 4.6 D RBC 3.94 L Hgb 10.6 L D Hct 32.4 L MCV 82 MCH 26.9 MCHC 32.7 RDW Std Deviation 58.2 H Plt Count 256 Neut % (Auto) 50 Lymph % (Auto) 47 [place] % (Auto) 2 Eos % (Auto) 0 Baso % (Auto) 1 Neut # (Auto) 2.3 Lymph # (Auto) 2.1 [place] # (Auto) 0.1 Eos # (Auto) 0.0 Baso # (Auto) 0.0 Immature Gran # (Auto) 0.03 H Absolute Nucleated RBC 0.12 H Immature Gran % 1 H Nucleated RBC % 3 H Sodium 137 Potassium 3.5 D Chloride 95 L Carbon Dioxide 26.7 Anion Gap 15 BUN 44 H Creatinine 4.2 H* D Estim Creat Clear Calc 10.8 L eGFR 11 L* BUN/Creatinine Ratio 10 L Glucose 167 H D Calculated Osmolality 289 Calcium 9.5 Corrected Calcium 9.5 Phosphorus 7.5 H Magnesium 2.0 Total Bilirubin 0.9 AST 68 H ALT 12 Alkaline Phosphatase 164 H D Total Protein 7.9 Albumin 4.1 Globulin 3.8 H Albumin/Globulin Ratio 1.1 L Random Vancomycin 14.9 Blood Type Antibody Screen Crossmatch Blood Bank Wristband ID ABG Interpretation ABG results: 05/13/24 05/15/24 05/15/24 08:29 15:28 16:03 ABG pH 7.39 7.05 L* D 7.17 L* D ABG pCO2 31 L 63 H D 45 D ABG pO2 78 L 38 L* D 84 D ABG HCO3 19 L 18 L 16 L ABG O2 Saturation 96 59 L 96 ABG Base Excess -5 L -12 L -11 L VBG pH VBG pCO2 VBG pO2 VBG Base Excess 05/16/24 05/17/24 05/18/24 04:38 04:03 04:20 ABG pH 7.28 L D 7.38 D 7.49 H D ABG pCO2 34 D 28 L 30 L ABG pO2 96 85 66 L ABG HCO3 16 L 17 L 23 ABG O2 Saturation 98 97 94 ABG Base Excess -10 L -8 L 0 VBG pH VBG pCO2 VBG pO2 VBG Base Excess 05/19/24 05/20/24 05/21/24 09:05 06:05 22:35 ABG pH 7.30 L D 7.41 D ABG pCO2 49 H D 42 ABG pO2 63 L 63 L ABG HCO3 24 27 H ABG O2 Saturation 91 93 ABG Base Excess -3 2 VBG pH 7.31 L VBG pCO2 50 VBG pO2 39 VBG Base Excess -2 05/26/24 05/29/24 04:17 12:28 ABG pH 7.38 7.42 ABG pCO2 42 35 ABG pO2 81 L 67 L ABG HCO3 25 23 ABG O2 Saturation 97 95 ABG Base Excess 0 -2 VBG pH VBG pCO2 VBG pO2 VBG Base Excess Quality Measures Quality Measures none Advance care planning discussed with:: patient Assessment & Plan Assessment Current Active Medications: Generic Name Dose Route Start Last Admin Trade Name Freq PRN Reason Stop Dose Admin Acetaminophen 650 mg 06/09/24 14:11 06/20/24 06:28 Acetaminophen 325 Mg Tablet PO 07/09/24 14:10 650 mg Q6HR PRN Administration Fever >101 and pain 1-3 Amiodarone HCl 200 mg 05/29/24 15:00 06/19/24 21:08 Amiodarone Hcl 200 Mg Tablet PO 06/28/24 14:59 200 mg BID ANGELICA Administration Apixaban 5 mg 06/13/24 21:00 06/19/24 21:10 Apixaban 2.5 Mg Tablet PO 07/13/24 20:59 5 mg BID ANGELICA Administration Benzocaine 1 lozenge 05/31/24 11:53 06/09/24 23:07 Benzocaine/Menthol 1 Lozenge PO 06/30/24 11:52 1 lozenge Q4HR PRN Administration Sore throat Dextrose 25 ml 05/24/24 15:43 Dextrose 50%-Water Inj 50 Ml Syringe IV 06/23/24 15:42 Q15MIN PRN BG 50-70 responsive npo pt Dextrose 50 ml 05/24/24 15:43 Dextrose 50%-Water Inj 50 Ml Syringe IV 06/23/24 15:42 Q15MIN PRN BG <50 OR BG <70 & pt unresponsive Dronabinol 5 mg 06/07/24 10:40 06/20/24 08:00 Dronabinol 2.5 Mg Capsule PO 07/07/24 10:39 5 mg BIDAC ANGELICA Administration Epoetin Chang 10,000 unit 06/20/24 10:00 Epoetin Chang-Epbx Inj 10,000 Unit/Ml Vial (Esrd) SC 06/20/24 10:01 X1 ONE Glucagon 1 mg 05/24/24 15:43 Glucagon Inj 1 Mg Vial IM Q15MIN PRN BG <70, and no IV access Guaifenesin 200 mg 06/10/24 08:30 06/20/24 05:35 Guaifenesin Syrup 200 Mg/10 Ml Udc PO 07/10/24 08:29 Not Given QID [facility] Protocol Heparin Sodium (Porcine) 3,500 unit 06/16/24 08:22 06/19/24 13:31 Heparin Sod Inj 1000 Unit/Ml Vial 10 Ml IV 06/30/24 08:21 3,500 unit X1 PRN Administration DIALYSIS Micafungin Sodium 100 mg/ 100 mls @ 100 mls/hr 06/10/24 13:56 06/19/24 08:42 Sodium Chloride IV 06/25/24 13:55 100 mls/hr QDAY ANGELICA Administration Vancomycin/Sodium Chloride 100 mls @ 120 mls/hr 06/20/24 10:00 Vancomycin/Ns 500 Mg Ivpb IV 06/20/24 10:49 X1 ONE Insulin Glargine 12 unit 05/25/24 09:00 06/19/24 08:42 Insulin Glargine (Lantus) 5 Unit/0.05 Ml (Per 5 Units) SC 06/24/24 08:59 12 unit QDAY ANGELICA Administration Insulin Human Lispro 0 unit 06/16/24 07:30 06/20/24 08:01 Insulin Lispro (Admelog) 1 Unit/0.01 Ml Unit SC 07/16/24 07:29 2 unit AC ANGELICA Administration Protocol Ipratropium [place] 0.5 mg 06/19/24 11:00 06/20/24 06:55 Ipratropium Rt 0.5 Mg/ 2.5 Ml Nebu INH 07/19/24 10:59 0.5 mg Q4HRRT ANGELICA Administration Levalbuterol HCl 0.63 mg 06/19/24 09:25 06/20/24 03:25 Levalbuterol Rt 0.63 Mg/3 Ml Nebu INH 07/19/24 10:59 0.63 mg Q4HRRT PRN Administration wheezing Lidocaine 1 patch 05/30/24 09:16 06/17/24 09:23 Lidocaine 5% 1 Patch TOP 06/29/24 09:15 1 patch DAILY PRN Administration BACK PAIN Midodrine 10 mg 06/17/24 14:00 06/20/24 05:36 Midodrine 5 Mg Tablet PO 07/17/24 13:59 Not Given TID ANGELICA Mirtazapine 15 mg 06/13/24 21:00 06/19/24 21:10 Mirtazapine 15 Mg Tablet PO 07/13/24 20:59 15 mg HS ANGELICA Administration Pharmacy Consult 1 each 06/10/24 12:15 Vancomycin Pharmacy To Dose 1 Each Each IV 07/10/24 12:14 QDAY PRN CONSULT Polyethylene Glycol 17 gm 06/12/24 15:36 Polyethylene Glycol 17 Gm Packet PO 07/09/24 10:44 BID PRN constipation Protocol Sennosides 1 tab 06/09/24 10:45 06/19/24 08:38 Senna Tablet PO 07/09/24 10:44 1 tab QDAY ANGELICA Administration Protocol Sodium Bicarbonate 325 mg 06/19/24 09:00 06/19/24 13:26 Sodium Bicarbonate 650 Mg Tablet PO 07/19/24 08:59 325 mg QDAY ANGELICA Administration Sodium Chloride 3 ml 05/24/24 19:00 06/19/24 08:44 Sodium Chloride Rt Jimena 0.9% 3 Ml Nebu INH 06/23/24 18:59 3 ml PRN PRN Administration SOLN Timolol Maleate 1 drop 05/28/24 18:15 06/19/24 08:43 Timolol Op [place] 0.5% 5 Ml Btl BOTH EYES 06/27/24 18:14 1 drop DAILY ANGELICA Administration Plan Assessment Ms. Castellanos is a 69-year-old female with past medical history significant for hypertension, diabetes and history of gastric ulcers who presented to the ED on 05/13/2024 after she was found unconscious on the floor. Per chart reviewing prior to this unconsciousness patient was having abdominal pain and generalized weakness with diarrhea and shortness of breath for 2 days. Patient was admitted to the hospital for treatment and management of sepsis secondary to pneumonia. Patient was given 1 L normal saline and started on ceftriaxone and azithromycin. patient underwent ex lap surgery for perforated gastric ulcer. Patient remained intubated postop and was upgraded to the ICU. Patient continues to be on dialysis after downgrade, has BALAJI and accordion drain intact, completed bowel rest, was started on dysphagia 1 diet, surgery following case closely, will continue to monitor. Patient continue with dialysis, white count coming down, may want to reconsider adjusting antibiotics. Follow-up with ID recommendations. #New onset A-fib with RVR, improving, rate controlled New onset of Afib, likely related to septic shock requiring pressor support and increased demand from perforated ulcer complicated by abdominal abscesses Pt appears to still be in A-fib, rate controlled, 90s to mid 100s Previous EKG shows a-fib w/RVR CHADVASC: 5 Pts 7.2 % stroke risk per year HAS-BLED score: 3, high risk of major bleeding Patient continues to be rate controlled, rate in the 90s-100s We recommend continuing levalbuterol for wheezing/doing so, and we recommend primary team to start LABA Pt may be able to resume BB at some point as blood pressure is starting to become higher, pt remains to be rate controlled with amio Plan: ?Continue with Oral Amio 200 mg BID ?Continue with Eliquis 5 mg twice daily #Acute exacerbation of HFpEF #HFpEF EF 55 to 60% #History of primary hypertension -Echo 05/16/2024 -estimated EF of 55 to 60%, stage I diastolic dysfunction noted, Moderate to severe posterior MAC We recommend to give midodrine 5 to 10 mg 15 to 30 minutes before dialysis, can give additional 2.5 to 5 mg after dialysis as long as 3 hours after predialysis dose Half-life of midodrine is 9 to 10 hours and patient with CKD something to keep in mind Patient to continue with dialysis Plan: ?Resume GDMT as able ?Fluid restriction ?Daily weights ?Strict ins and outs ?Keep potassium and magnesium above 4 and 2 respectively #? Aspiration pneumonia Concern with patient as she is wheezing, coughs frequently with oral ingestion Patient has not spiked a fever Plan: ?*Videofluoroscopy ? Speech therapy #Hx of Diabetes Mellitus type II Most recent A1c 05/21/2024: 6.2 Plan: Management by primary team #Perforated gastric ulcer #Pneumoperitoneum #Peritonitis secondary to perforated gastric ulcer #Abdominal Abscess, s/p percutaneous drainage x3 Patient found to have tender abdomen, rigidity in the epigastrium, chest x-ray showed elevation of hemidiaphragm, CT abdomen showed pneumoperitoneum, concern for perforated viscus, general surgeon Dr. Santana was consulted for emergency laparotomy and possible repair of perforated gastric ulcer. Repeat CT abd/pel on 05/20 revealed Pneumoperitoneum, orogastric tube in the stomach, mild free fluid adjacent to the stomach and anterior to the pancreas. s/p Exploratory laparotomy & repair of perforated gastric ulcer - 05/15. 06/01/24: Overnight there was concern of wound dehiscence. Discussed with general surgeon per surgery superior aspect of the wound was dehiscent after removal of aixa.Surgery removal of BALAJI drain on 06/01. Repeat CT on 06/01- More pronounced fluid collection in the left abdomen below the spleen, 8.9 x 6.4cm, free fluid in the abdomen and pelvis, and Ascites -Abscess culture from 05/25 grew edna albicans ?Repeat CT abdomen pelvis shows abscess collection lower left abdomen has markedly decreased in size and the accordion drains have no output this morning Plan: Management by primary hospitalist team #Acute blood loss anemia, stable Likely related to perforated ulcer Hgb stable ~10.7 Plan: Management by primary hospitalist team #Acute tubular necrosis, requiring hemodialysis #Acute Hypoxic Respiratory failure #Acute Upper GI bleed - stable #Hyperlipidemia #Acute blood loss anemia, stable #Acute encephalopathy-resolved #Septic Shock - resolved #Hypoosmolar Hyponatremia, resolved Patient seen and care discussed with my attending physician, Dr. Susan Mathews, PGY-1 Attending Provider Attestation/Addendum I reviewed the resident Dr. Hernandes consultation progress note and agree with the resident findings and plan in the note above and have also edited the documentation to reflect my findings and plan. Jalen Davis M.D. Interventional Cardiology
[2024-06-20] MEDS: EPOETIN ALFA-EPBX INJ 10,000 UNIT/ML VIAL (ESRD) 10000 UNIT SC (10:39)
[2024-06-20] MEDS: ALBUMIN HUMAN 25% IVPB 25 GM/100 ML BTL IV (11:05)
--- NOTE | 2024-06-20 13:16 | PC.NURSE ---
Dialysis completed for 3 hrs, tolerated well. Pt no complaints. Respiration even and unlabored. Saturating at 99% on O2 at 3L/min via NC. Able to removed 1900 ml of fluid net. Post tx BP 114/69, HR 85, Temp 97.1. Pt back in her room. Call light within reached. Report given to Sarah SPARKS
--- NOTE | 2024-06-20 14:05 | PCS.ST ---
Video-Swallow completed. See Speech Modified Barium Swallow report for details. No aspiration. Advance diet Dysphagia 3/Reg liquids.
--- NOTE | 2024-06-20 15:42 | ESPR_ITS ---
Documentation for date of: 06/20/24 Senior resident attestation: Protected hospital course complicated by gastric perforation status post emergent laparotomy and repair, ICU stay as well as multiple postop abscesses and pneumonia. Also developed ADILSON/ATN requiring hemodialysis, patient has made less than optimal recovery postop, continues to develop multiple abdominal abscesses, repeat cultures grew Ed[place], was started on fluconazole, currently completing more than 2 weeks of fluconazole but had repeat abdominal pelvic abscesses on abdominal imaging. IR CT-guided abscess drainage was ordered, pelvic abscess was not amenable to drainage, smaller abscess was drained, sent for microbiology. Noted uptrending WBC count and increased patient discomfort as well as somnolence, started on broad-spectrum antibiotics for aspiration versus hospital-acquired pneumonia IV Zosyn and vancomycin as well as micafungin for candidal abscess not respond to fluconazole. Antibiotics were discontinued following resolution of pneumonia. Repeat speech evaluation was ordered as prior speech eval was following extubation last month in ICU, concern for poor swallow and aspiration leading to recurrent pneumonias during hospitalization. Video fluoroscopic swallow was ordered, pending read, speech pathologist recommendations to follow. Per case management, patient lost her place at [facility], likely placement at [facility] , also need to secure outpatient dialysis chair. #Sepsis?secondary to?Peritonitis secondary to perforated gastric ulcer s/p repair - resolved #Postop intra-abdominal abscess s/p drainage, likely fungal- will continue with antibiotics and micafungin pending abscess culture. And ID recommendations. daily PT , mobilize patient. Plan to discharge to SNF on fluconazole once patient has placement. #Pneumonia, HCAP -now resolved, cultures negative to date , but was started after worsening leucocytosis and pneumonic infiltrates on cxr, antibiotics discontinued following completion of treatment, now improving. Patient has a hard time coughing up secretions, chest physiotherapy ordered. #A-fib RVR - on eliquis and po amiodarone #NSTEMI type 2 #ATN, likely progressed to ESRD- HD wed,nita,sat , dailysis chair secured, but to establish outpatient dialysis pt may need to stay until wednesday and get inpt HD then discarged and can get outpt HD on wednesday #Acute toxic encephalopathy?in the setting of sepsis?improving #Protein calorie malnutrition as well as general deconditioning due to poor diet, #History of diabetes mellitus- #History of gastric ulcer- BID protonix #Acute blood loss anemia secondary to GI bleed - resolved, hemoglobin downtrending 7.7, per Dr. Mackey patient would need blood transfusion and hemoglobin more than 8 to be accepted at dialysis center 1 PRBC transfused. Patient evaluated and examined at the bedside, plan of care discussed with rest of the team including my attending physician, except as noted. Quresh pgy 2 Subjective Subjective Interval history: 06/20: No acute overnight events. Patient seen and examined during dialysis. Patient appears to be much better not in acute distress she is on oxygen via nasal cannula. Patient is hurting a lot more effort into coughing up phlegm. Patient is tolerating some oral diet she is putting more effort into eating as well . patient denies any chest pain or abdominal pain. Patient underwent videofluoroscopy to assess for swallow study however reading is pending we will follow-up. Patient has no complaints. Exam Vital Signs Temp Pulse Resp BP Pulse Ox O2 Del Method O2 Flow Rate 97.1 F 107 H 23 H 149/77 H 100 Nasal Cannula 2 06/20/24 12:00 06/20/24 14:15 06/20/24 14:15 06/20/24 12:00 06/20/24 14:15 06/20/24 12:00 06/20/24 14:15 FiO2 4 06/20/24 11:51 Narrative Exam GENERAL: A&Ox3 . Awake and alert, Pt. is on 1L oxygen via nasal cannula NEURO: no focal neurological deficits HEENT: Atraumatic, Normocephalic. mucous membranes moist. Eyes open, symmetrical, & clear HEART: Normal Heart Sounds LUNGS: wheezing bilaterally and crackles on auscultation ABDOMEN: soft, non-distended, non-tender, bowel sounds heard, no guarding or rebound tenderness, incision site is clean. SKIN: No Rash or ecchymoses EXTREMITIES: trace edema bilaterally on LE, tenderness, able to move all 4 extremities, pedal pulses palpated Objective Labs 06/21/24 05:35 06/21/24 05:35 Labs: Laboratory Results - last 24 hr 06/20/24 05:54 WBC 4.6 D RBC 3.94 L Hgb 10.6 L D Hct 32.4 L MCV 82 MCH 26.9 MCHC 32.7 RDW Std Deviation 58.2 H Plt Count 256 Neut % (Auto) 50 Lymph % (Auto) 47 Douglas % (Auto) 2 Eos % (Auto) 0 Baso % (Auto) 1 Neut # (Auto) 2.3 Lymph # (Auto) 2.1 Douglas # (Auto) 0.1 Eos # (Auto) 0.0 Baso # (Auto) 0.0 Immature Gran # (Auto) 0.03 H Absolute Nucleated RBC 0.12 H Immature Gran % 1 H Nucleated RBC % 3 H Sodium 137 Potassium 3.5 D Chloride 95 L Carbon Dioxide 26.7 Anion Gap 15 BUN 44 H Creatinine 4.2 H* D Estim Creat Clear Calc 10.8 L eGFR 11 L* BUN/Creatinine Ratio 10 L Glucose 167 H D Calculated Osmolality 289 Calcium 9.5 Corrected Calcium 9.5 Phosphorus 7.5 H Magnesium 2.0 Total Bilirubin 0.9 AST 68 H ALT 12 Alkaline Phosphatase 164 H D Total Protein 7.9 Albumin 4.1 Globulin 3.8 H Albumin/Globulin Ratio 1.1 L Random Vancomycin 14.9 ABG Interpretation ABG results: 05/13/24 05/15/24 05/15/24 08:29 15:28 16:03 ABG pH 7.39 7.05 L* D 7.17 L* D ABG pCO2 31 L 63 H D 45 D ABG pO2 78 L 38 L* D 84 D ABG HCO3 19 L 18 L 16 L ABG O2 Saturation 96 59 L 96 ABG Base Excess -5 L -12 L -11 L VBG pH VBG pCO2 VBG pO2 VBG Base Excess 05/16/24 05/17/24 05/18/24 04:38 04:03 04:20 ABG pH 7.28 L D 7.38 D 7.49 H D ABG pCO2 34 D 28 L 30 L ABG pO2 96 85 66 L ABG HCO3 16 L 17 L 23 ABG O2 Saturation 98 97 94 ABG Base Excess -10 L -8 L 0 VBG pH VBG pCO2 VBG pO2 VBG Base Excess 05/19/24 05/20/24 05/21/24 09:05 06:05 22:35 ABG pH 7.30 L D 7.41 D ABG pCO2 49 H D 42 ABG pO2 63 L 63 L ABG HCO3 24 27 H ABG O2 Saturation 91 93 ABG Base Excess -3 2 VBG pH 7.31 L VBG pCO2 50 VBG pO2 39 VBG Base Excess -2 05/26/24 05/29/24 04:17 12:28 ABG pH 7.38 7.42 ABG pCO2 42 35 ABG pO2 81 L 67 L ABG HCO3 25 23 ABG O2 Saturation 97 95 ABG Base Excess 0 -2 VBG pH VBG pCO2 VBG pO2 VBG Base Excess Quality Measures Quality Measures none Advance care planning discussed with:: patient and child Assessment & Plan Assessment Current Active Medications: Generic Name Dose Route Start Last Admin Trade Name Freq PRN Reason Stop Dose Admin Acetaminophen 650 mg 06/09/24 14:11 06/20/24 06:28 Acetaminophen 325 Mg Tablet PO 07/09/24 14:10 650 mg Q6HR PRN Administration Fever >101 and pain 1-3 Amiodarone HCl 200 mg 05/29/24 15:00 06/20/24 11:28 Amiodarone Hcl 200 Mg Tablet PO 06/28/24 14:59 Not Given BID ANGELICA Apixaban 5 mg 06/13/24 21:00 06/20/24 13:23 Apixaban 2.5 Mg Tablet PO 07/13/24 20:59 Not Given BID ANGELICA Benzocaine 1 lozenge 05/31/24 11:53 06/09/24 23:07 Benzocaine/Menthol 1 Lozenge PO 06/30/24 11:52 1 lozenge Q4HR PRN Administration Sore throat Budesonide 1 mg 06/20/24 10:15 06/20/24 11:16 Budesonide Rt 0.5 Mg/2 Ml Nebu INH 07/20/24 10:14 Not Given BIDRT ANGELICA Dextrose 25 ml 05/24/24 15:43 Dextrose 50%-Water Inj 50 Ml Syringe IV 06/23/24 15:42 Q15MIN PRN BG 50-70 responsive npo pt Dextrose 50 ml 05/24/24 15:43 Dextrose 50%-Water Inj 50 Ml Syringe IV 06/23/24 15:42 Q15MIN PRN BG <50 OR BG <70 & pt unresponsive Dronabinol 5 mg 06/07/24 10:40 06/20/24 08:00 Dronabinol 2.5 Mg Capsule PO 07/07/24 10:39 5 mg BIDAC ANGELICA Administration Glucagon 1 mg 05/24/24 15:43 Glucagon Inj 1 Mg Vial IM Q15MIN PRN BG <70, and no IV access Guaifenesin 200 mg 06/10/24 08:30 06/20/24 13:24 Guaifenesin Syrup 200 Mg/10 Ml Udc PO 07/10/24 08:29 Not Given QID ON LICENSE OF [facility] Protocol Heparin Sodium (Porcine) 3,500 unit 06/16/24 08:22 06/19/24 13:31 Heparin Sod Inj 1000 Unit/Ml Vial 10 Ml IV 06/30/24 08:21 3,500 unit X1 PRN Administration DIALYSIS Micafungin Sodium 100 mg/ 100 mls @ 100 mls/hr 06/10/24 13:56 06/19/24 08:42 Sodium Chloride IV 06/25/24 13:55 100 mls/hr QDAY ANGELICA Administration Albumin Human 25 gm in 100 mls @ 100 mls/hr 06/20/24 11:03 06/20/24 11:05 Albuminar-25 Ivpb IV 100 mls/hr PRN PRN Administration DIALYSIS Insulin Glargine 12 unit 05/25/24 09:00 06/20/24 11:29 Insulin Glargine (Lantus) 5 Unit/0.05 Ml (Per 5 Units) SC 06/24/24 08:59 Not Given QDAY ANGELICA Insulin Human Lispro 0 unit 06/16/24 07:30 06/20/24 13:25 Insulin Lispro (Admelog) 1 Unit/0.01 Ml Unit SC 07/16/24 07:29 Not Given AC ON LICENSE OF [facility] Protocol Ipratropium [place] 0.5 mg 06/19/24 11:00 06/20/24 14:13 Ipratropium Rt 0.5 Mg/ 2.5 Ml Nebu INH 07/19/24 10:59 0.5 mg Q4HRRT ANGELICA Administration Levalbuterol HCl 0.63 mg 06/19/24 09:25 06/20/24 03:25 Levalbuterol Rt 0.63 Mg/3 Ml Nebu INH 07/19/24 10:59 0.63 mg Q4HRRT PRN Administration wheezing Lidocaine 1 patch 05/30/24 09:16 06/17/24 09:23 Lidocaine 5% 1 Patch TOP 06/29/24 09:15 1 patch DAILY PRN Administration BACK PAIN Midodrine 10 mg 06/17/24 14:00 06/20/24 05:36 Midodrine 5 Mg Tablet PO 07/17/24 13:59 Not Given TID ANGELICA Mirtazapine 15 mg 06/13/24 21:00 06/19/24 21:10 Mirtazapine 15 Mg Tablet PO 07/13/24 20:59 15 mg HS ANGELICA Administration Polyethylene Glycol 17 gm 06/12/24 15:36 Polyethylene Glycol 17 Gm Packet PO 07/09/24 10:44 BID PRN constipation Protocol Sennosides 1 tab 06/09/24 10:45 06/20/24 13:23 Senna Tablet PO 07/09/24 10:44 Not Given QDAY ANGELICA Protocol Sodium Bicarbonate 325 mg 06/19/24 09:00 06/20/24 13:24 Sodium Bicarbonate 650 Mg Tablet PO 07/19/24 08:59 Not Given QDAY ANGELICA Sodium Chloride 3 ml 05/24/24 19:00 06/19/24 08:44 Sodium Chloride Rt [place] 0.9% 3 Ml Nebu INH 06/23/24 18:59 3 ml PRN PRN Administration SOLN Timolol Maleate 1 drop 05/28/24 18:15 06/20/24 13:24 Timolol Op Jimena 0.5% 5 Ml Btl BOTH EYES 06/27/24 18:14 Not Given DAILY ANGELICA Plan Ms. Castellanos is a 69-year-old female with past medical history significant for hypertension, diabetes and history of gastric ulcers who presented to the ED on 05/13/2024 after she was found unconscious on the floor. Per chart reviewing prior to this unconsciousness patient was having abdominal pain and generalized weakness with diarrhea and shortness of breath for 2 days. Patient was admitted to the hospital for treatment and management of sepsis secondary to pneumonia. Patient was given 1 L normal saline and started on ceftriaxone and azithromycin. patient underwent ex lap surgery for perforated gastric ulcer. Patient remained intubated postop and was upgraded to the ICU. Patient continues to be on dialysis after downgrade, has BALAJI and accordion drain intact, completed bowel rest, was started on dysphagia 1 diet, surgery following case closely, will continue to monitor. #recurrent Abdominal and pelvic abscesses - Pt had acoordian drains placed on 05/25, 06/02 and both drains were removed on 06/05 -Abscess culture from 05/25 and 06/02 grew edna albicans -repeat CT on 06/12 - Abscess in the left lower abdomen is noted, measuring 4.3 cm in dimension, Much smaller pelvic abscess on this study, 24 mm not amenable to catheter placement (larger abscess was directly aspirated by IR) -Patient completed 20 days of fluconazole and is now switched to micafungin started on 06/10- -[place] PRN for pain ordered #Hospital aquired pneumonia vs. aspiration pneumonia #right pleural effusions -Pt has a productive cough, leukocytosis -Chest xray 06/15- Significant pneumonia right base, Small right pleural effusion plan: -Duonebs prn -mucolytics ordered -chest physiotherapy -continue zosyn (06/10-06/17) -Patient is scheduled for videofluoroscopy for 06/20 #Protein Calorie malnutrition ?Patient noted to have poor appetite, is finishing less than 50% of her meals, was initially on TPN which is discontinued. 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 cerebellar hemisphere -no aspirin given at this time due to hx. 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 to work with physical therapy -will need rehab placement on discharge #Perforated gastric ulcer -resolved #Pneumoperitoneum- resolved #Peritonitis secondary to perforated gastric ulcer - s/p ex lap Patient found to have tender abdomen, rigidity in the epigastrium, chest x-ray showed elevation of hemidiaphragm, CT abdomen showed pneumoperitoneum, concern for perforated viscus, general surgeon Dr. Santana was consulted for emergency laparotomy and repair of perforated gastric ulcer on 05/[address] abd/pel on 05/20 revealed Pneumoperitoneum, orogastric tube in the stomach, mild free fluid adjacent to the stomach and anterior to the pancreas. 06/01/24: Overnight there was concern of wound dehiscence. Discussed with general surgeon per surgery superior aspect of the wound was dehiscent after removal of aixa.Surgery removal of BALAJI drain on 06/01. Repeat CT on 06/01- More pronounced fluid collection in the left abdomen below the spleen, 8.9 x 6.4cm, free fluid in the abdomen and pelvis, and Ascites -Repeat CT A/P 06/05: abscess collection in the left lower abdomen has markedly decreased in size. the accordions drains have no output this morning. Repeat CT on 06/10 shows multiple abdominal and pelvic abscesses and pneumonia left base Plan: ?Patient completed antibiotic therapy, Meropenem, discontinued per ID Recommendations -Pt completed two rounds of zosyn (05/15-05/24) and (06/10-06/17) ?Pt was on TPN 05/21-06/05 . Patient's diet is advanced to dysphagia 1 and have encouraged family members to bring home-cooked meals that patient would eat ?Continue dronabinol and mirtazapine as appetite stimulator #Acute Hypoxic Respiratory failure, likely multifactorial- improving -2/2 to pulmonary edema in the setting of volume overload 2/2 ATN due to shock leading to oligoanuria versus bibasilar pneumonia -Further complicated by bilateral lung atelectasis in the setting of recent abdominal surgery and sedatives use -Patient was intubated and on mechanical ventilation (05/15) and extubated 05/18/2024, -currently saturating 99 % on 2L NC -Ipratropium every 4 hours -Levalbuterol every 4 hours -chest physiotherapy ordered -mucolytics ordered #New onset A-fib with RVR #NSTEMI type 2 -Likely secondary to shock in the setting of abdominal surgery -EKG findings consistent with A-fib -Was on Amiodarone 200 twice daily for new onset Afib, but as she was in AFib with RVR. Plan: ?Cardiology consulted, appreciate recs -Currently on oral amiodarone 200mg and metoprolol ? Resumed eliquis 5mg BID for anticoagulation # ESRD secondary to Acute tubular necrosis -2/2 septic shock Plan: -permanent hemodialysis cath placed on 06/02/24 - Hemodialysis as per schedule of , , Wed -Patient is dialysis to be arranged by social media project manager -Started on midodrine 10 mg BID as patient has difficulty tolerating dialysis, blood pressure drops. -Renally dose medications and avoid nephrotoxic agents -Nephrology following #Acute exacerbation of HFpEF- resolved # HFpEF EF 55 to 60% -echo 05/16 -estimated EF of 55 to 60%, stage I diastolic dysfunction noted, Moderate to severe posterior MAC -Continue dialysis, as per nephrology recommendations #Acute Upper GI bleed - resolved -Most likely secondary to perforated gastric ulcer -Continue iv Protonix. Pt's Hgb is stable and hemodynamically stable -Will monitor for alarm signs of active bleeding with melena or hematochezia #Acute blood loss anemia, resolved 2/2 perforated ulcer- S/P surgical repair Hgb stable 9.6 Hct 28.3 patient received 2 units of pRBC 05/18 due to acutely drop in Hgb below 7. No signs of active bleeding. Plan: -Continue to monitor daily CBC. transfuse for hemoglobin less than 7. #non- insulin dependent Diabetes Mellitus type II - A1C 6.3 % 05/21/2024 - Hold home glipizide and januvia - Plan: Continue to monitor blood sugars - Insulin sliding scale ordered with lantus 12 units #Hyperlipidemia -Unclear if patient takes any medications as a statin is not on list of home meds #essential Hypertension Holding on resuming home blood pressure medicines at this time # Acute encephalopathy-resolved -Likely multifactorial secondary to sepsis versus metabolic versus neurologic versus medication -Patient is awake and alert and follows commands. Patient is able to respond to yes or no questions verbally # Distributive shock - resolved #Hypoosmolar Hyponatremia, resolved Disposition: Telemetry DVT prophylaxis: Eliquis 5 mg twice daily anticoagulation for A-fib GI prophylaxis:Protonix 40 BID Diet: Dysphagia 1 diet CODE STATUS: Full Assessment and plan discussed with my senior resident physician Dr. Quiñonez and attending physician Dr. Anusha Rivera ([id number]-[id number])- Internal medicine resident Attending Provider Attestation/Addendum Janel Gaffney DO, attest that I was physically present for the donnelly portions of the service and evaluated the patient with the resident and I reviewed and discussed the case with the resident and agree with the resident's findings and plans of care as documented above Patient seen and evaluated this AM in dialysis. Patient alertness improving and has a stronger cough. She has no acute complaints at this time. Pending outpatient chair time. Patient can be discharged once outpatient HD is arranged.
[2024-06-20] MEDS: MICAFUNGIN SODIUM INJ 100 MG in SODIUM CHLORIDE 0.9% 100 ML IV (15:50)
--- NOTE | 2024-06-20 16:57 | PD.RESPRO ---
Documentation for date of: 06/20/24 Subjective Subjective Interval history: Mr. Castellanos is a [id number] with past medical history of prediabetes, CKD, hypertension, history of ulcers who was admitted to [facility] for sepsis secondary to pneumonia and acute metabolic encephalopathy. Patient was BIBA to the ED after being found unconscious on the floor. According to the son on admission patient's daughter found the patient at 3 AM passed out on the floor and unresponsive. Family is unaware along the patient was on the floor. 2 days ago patient started to develop abdominal pain and weakness all over her body associated with some diarrhea and shortness of breath. Patient's abdominal pain comes and goes from right side to left side of the abdomen. ED course patient was hypertensive tachycardic tachypneic and was saturating 92% on 5 L nasal cannula ED labs significant for WBCs 24.3, bicarb 19.6, glucose 259, lactic acid 2.2, BNP 304, troponin 0.09. 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, colonic diverticulosis, Cervical spine CT showed 3 mm radiolucency in C3 vertebral body Chest CTA showed mild aneurysmal dilatation ascending thoracic aorta AP dimension 4.3 cm and pulmonary artery hypertension with moderate vascular congestion Face CT shows no acute facial fracture, Lumbar spine CT shows no acute lumbar fracture severe acquired spinal stenosis L4-L5, Thoracic spine CT showed no acute fracture Brain MRI with MRA showed equally focal restricted diffusion brainstem medullary level significant stenosis of right P1 P2 segment posterior cerebral artery Postadmission, cardiology was consulted on admission because of elevated troponins, suspicion of NSTEMI type II, patient has acute decompensated heart failure per cardiology evaluation, neurology consulted because of patient's acute metabolic encephalopathy and GI was consulted for suspicion of GI bleed. Eventually on 05/15 rapid response was called for worsening chest pain, patient's map was consistently in 70s, was tachycardic tachypneic. CT angiogram showed pneumoperitoneum multiple air droplets adjacent to and within wall of stomach with suspicion of gastric perforation. General surgery was consulted for emergency surgery and patient had exploratory laparotomy with repair of perforated gastric ulcer with an omental patch. Patient was upgraded to ICU postop for further management patient currently on Levophed and vasopressor due to distributive shock, currently sedated and intubated on mechanical ventilation. Nephrology consulted due to concern of ADILSON. 06/10/2024 patient currently seen in telemetry. Patient complaining of abdominal pain. Scheduled for dialysis today. Although did have some trouble with catheter before. tPA was placed. Catheter could not be exchanged yesterday. Will monitor catheter function closely. Unfortunately IR not available until Wednesday. 06/11/2024 patient currently seen in telemetry. Sick looking. Did receive dialysis yesterday. Still having some abdominal discomfort.WBC 28.7, hemoglobin 7.8, platelets 261. Sodium 134, potassium 4.8, BUN 53, creatinine 5.6, magnesium 2.4, LFTs normal, albumin 4.0 chest x-ray showed pneumonia/mild heart failure. CT abdomen repeat showed multiple abdominal and pelvic abscesses. Prognosis remains guarded. 06/17/2024 patient supposed to be discharged to rehab today. Alert and awake. Daughter at bedside. Outpatient dialysis TTS schedule done. Try to do short run of dialysis today however patient had an significant hypotension I had to stop dialysis. After giving 200 cc fluid her blood pressure returned back to normal. Discharge planning per primary team. 06/18/2024 patient currently seen in telemetry. She is more alert and awake today. Denies any chest pain. Still having some cough and shortness of breath with wheezing. Significant functional decline. Denies any abdominal pain today. Labs, medications reviewed. She did have a hypotensive episode at dialysis yesterday and currently on midodrine. Discharge planning to rehab once stable. plan of care discussed with primary team. 06/19/2024, patient was seen and examined at bedside. Patient was awake and alert however she was little bit anxious. Denied any chest pain. On auscultation patient was found to be having wheezing, and also coarse crepitations bilaterally. Yesterday dialysis was stopped because the patient became hypotensive. Today her blood pressure is good to resume another session of dialysis. 12/18/2024, patient is seen and examined at bedside. Patient was awake and alert and did not oriented she was having dialysis at that time. He seems a little bit anxious however she was saturating well on 2 L of oxygen. Her heart rate was 110, blood pressure during dialysis was elevated 178/95. Patient is pending videofluoroscopy reads for her persistent cough and wheezing. Exam Vital Signs Temp Pulse Resp BP Pulse Ox O2 Del Method O2 Flow Rate 97.1 F 107 H 23 H 146/94 H 100 Nasal Cannula 2 06/20/24 12:00 06/20/24 14:15 06/20/24 14:15 06/20/24 15:47 06/20/24 14:15 06/20/24 12:00 06/20/24 14:15 FiO2 4 06/20/24 11:51 Narrative Exam PatientGEN: AOx3, anxious, in semi-sitting position having dialysis. HEENT: NC/AC, oral mucosa dry, neck supple CVS: RRR, S1-S2 present, no murmurs appreciated RESP: Diffuse crepitations bilaterally, wheezing on the right side(faint) GI: soft, non distended, non tender, NBS MSK: able to move all 4 limbs however significant generalized weakness, +1 lower limb SKIN: warm and dry ROTARY DRUM TANNER: CN II-XII and Sensation grossly intact. Objective Labs 06/21/24 05:35 06/21/24 05:35 Labs: Laboratory Results - last 24 hr 06/20/24 05:54 WBC 4.6 D RBC 3.94 L Hgb 10.6 L D Hct 32.4 L MCV 82 MCH 26.9 MCHC 32.7 RDW Std Deviation 58.2 H Plt Count 256 Neut % (Auto) 50 Lymph % (Auto) 47 [place] % (Auto) 2 Eos % (Auto) 0 Baso % (Auto) 1 Neut # (Auto) 2.3 Lymph # (Auto) 2.1 [place] # (Auto) 0.1 Eos # (Auto) 0.0 Baso # (Auto) 0.0 Immature Gran # (Auto) 0.03 H Absolute Nucleated RBC 0.12 H Immature Gran % 1 H Nucleated RBC % 3 H Sodium 137 Potassium 3.5 D Chloride 95 L Carbon Dioxide 26.7 Anion Gap 15 BUN 44 H Creatinine 4.2 H* D Estim Creat Clear Calc 10.8 L eGFR 11 L* BUN/Creatinine Ratio 10 L Glucose 167 H D Calculated Osmolality 289 Calcium 9.5 Corrected Calcium 9.5 Phosphorus 7.5 H Magnesium 2.0 Total Bilirubin 0.9 AST 68 H ALT 12 Alkaline Phosphatase 164 H D Total Protein 7.9 Albumin 4.1 Globulin 3.8 H Albumin/Globulin Ratio 1.1 L Random Vancomycin 14.9 ABG Interpretation ABG results: 05/13/24 05/15/24 05/15/24 08:29 15:28 16:03 ABG pH 7.39 7.05 L* D 7.17 L* D ABG pCO2 31 L 63 H D 45 D ABG pO2 78 L 38 L* D 84 D ABG HCO3 19 L 18 L 16 L ABG O2 Saturation 96 59 L 96 ABG Base Excess -5 L -12 L -11 L VBG pH VBG pCO2 VBG pO2 VBG Base Excess 05/16/24 05/17/24 05/18/24 04:38 04:03 04:20 ABG pH 7.28 L D 7.38 D 7.49 H D ABG pCO2 34 D 28 L 30 L ABG pO2 96 85 66 L ABG HCO3 16 L 17 L 23 ABG O2 Saturation 98 97 94 ABG Base Excess -10 L -8 L 0 VBG pH VBG pCO2 VBG pO2 VBG Base Excess 05/19/24 05/20/24 05/21/24 09:05 06:05 22:35 ABG pH 7.30 L D 7.41 D ABG pCO2 49 H D 42 ABG pO2 63 L 63 L ABG HCO3 24 27 H ABG O2 Saturation 91 93 ABG Base Excess -3 2 VBG pH 7.31 L VBG pCO2 50 VBG pO2 39 VBG Base Excess -2 05/26/24 05/29/24 04:17 12:28 ABG pH 7.38 7.42 ABG pCO2 42 35 ABG pO2 81 L 67 L ABG HCO3 25 23 ABG O2 Saturation 97 95 ABG Base Excess 0 -2 VBG pH VBG pCO2 VBG pO2 VBG Base Excess Quality Measures Quality Measures none Advance care planning discussed with:: patient Assessment & Plan Assessment Current Active Medications: Generic Name Dose Route Start Last Admin Trade Name Freq PRN Reason Stop Dose Admin Acetaminophen 650 mg 06/09/24 14:11 06/20/24 06:28 Acetaminophen 325 Mg Tablet PO 07/09/24 14:10 650 mg Q6HR PRN Administration Fever >101 and pain 1-3 Amiodarone HCl 200 mg 05/29/24 15:00 06/20/24 11:28 Amiodarone Hcl 200 Mg Tablet PO 06/28/24 14:59 Not Given BID ANGELICA Apixaban 5 mg 06/13/24 21:00 06/20/24 13:23 Apixaban 2.5 Mg Tablet PO 07/13/24 20:59 Not Given BID ANGELICA Balsam Dong/Louisa Oil 0 gm 06/20/24 16:45 Balsam [place]/Louisa Oil (Venelex) 60 Gm Tube TOP 07/20/24 16:44 BID ANGELICA Benzocaine 1 lozenge 05/31/24 11:53 06/09/24 23:07 Benzocaine/Menthol 1 Lozenge PO 06/30/24 11:52 1 lozenge Q4HR PRN Administration Sore throat Budesonide 1 mg 06/20/24 10:15 06/20/24 11:16 Budesonide Rt 0.5 Mg/2 Ml Nebu INH 07/20/24 10:14 Not Given BIDRT ANGELICA Dextrose 25 ml 05/24/24 15:43 Dextrose 50%-Water Inj 50 Ml Syringe IV 06/23/24 15:42 Q15MIN PRN BG 50-70 responsive npo pt Dextrose 50 ml 05/24/24 15:43 Dextrose 50%-Water Inj 50 Ml Syringe IV 06/23/24 15:42 Q15MIN PRN BG <50 OR BG <70 & pt unresponsive Dronabinol 5 mg 06/07/24 10:40 06/20/24 08:00 Dronabinol 2.5 Mg Capsule PO 07/07/24 10:39 5 mg BIDAC ANGELICA Administration Glucagon 1 mg 05/24/24 15:43 Glucagon Inj 1 Mg Vial IM Q15MIN PRN BG <70, and no IV access Guaifenesin 200 mg 06/10/24 08:30 06/20/24 13:24 Guaifenesin Syrup 200 Mg/10 Ml Udc PO 07/10/24 08:29 Not Given QID [facility] Protocol Heparin Sodium (Porcine) 3,500 unit 06/16/24 08:22 06/19/24 13:31 Heparin Sod Inj 1000 Unit/Ml Vial 10 Ml IV 06/30/24 08:21 3,500 unit X1 PRN Administration DIALYSIS Micafungin Sodium 100 mg/ 100 mls @ 100 mls/hr 06/10/24 13:56 06/20/24 15:50 Sodium Chloride IV 06/25/24 13:55 100 mls/hr QDAY ANGELICA Administration Albumin Human 25 gm in 100 mls @ 100 mls/hr 06/20/24 11:03 06/20/24 11:05 Albuminar-25 Ivpb IV 100 mls/hr PRN PRN Administration DIALYSIS Insulin Glargine 12 unit 05/25/24 09:00 06/20/24 11:29 Insulin Glargine (Lantus) 5 Unit/0.05 Ml (Per 5 Units) SC 06/24/24 08:59 Not Given QDAY ANGELICA Insulin Human Lispro 0 unit 06/16/24 07:30 06/20/24 13:25 Insulin Lispro (Admelog) 1 Unit/0.01 Ml Unit SC 07/16/24 07:29 Not Given AC [facility] Protocol Ipratropium [place] 0.5 mg 06/19/24 11:00 06/20/24 14:13 Ipratropium Rt 0.5 Mg/ 2.5 Ml Nebu INH 07/19/24 10:59 0.5 mg Q4HRRT ANGELICA Administration Levalbuterol HCl 0.63 mg 06/19/24 09:25 06/20/24 03:25 Levalbuterol Rt 0.63 Mg/3 Ml Nebu INH 07/19/24 10:59 0.63 mg Q4HRRT PRN Administration wheezing Lidocaine 1 patch 05/30/24 09:16 06/17/24 09:23 Lidocaine 5% 1 Patch TOP 06/29/24 09:15 1 patch DAILY PRN Administration BACK PAIN Midodrine 10 mg 06/17/24 14:00 06/20/24 15:47 Midodrine 5 Mg Tablet PO 07/17/24 13:59 Not Given TID ANGELICA Mirtazapine 15 mg 06/13/24 21:00 06/19/24 21:10 Mirtazapine 15 Mg Tablet PO 07/13/24 20:59 15 mg HS ANGELICA Administration Polyethylene Glycol 17 gm 06/12/24 15:36 Polyethylene Glycol 17 Gm Packet PO 07/09/24 10:44 BID PRN constipation Protocol Sennosides 1 tab 06/09/24 10:45 06/20/24 13:23 Senna Tablet PO 07/09/24 10:44 Not Given QDAY [facility] Protocol Sodium Bicarbonate 325 mg 06/19/24 09:00 06/20/24 13:24 Sodium Bicarbonate 650 Mg Tablet PO 07/19/24 08:59 Not Given QDAY ANGELICA Sodium Chloride 3 ml 05/24/24 19:00 06/19/24 08:44 Sodium Chloride Rt [place] 0.9% 3 Ml Nebu INH 06/23/24 18:59 3 ml PRN PRN Administration SOLN Timolol Maleate 1 drop 05/28/24 18:15 06/20/24 13:24 Timolol Op [place]ena 0.5% 5 Ml Btl BOTH EYES 06/27/24 18:14 Not Given DAILY ANGELICA Plan Mr. Castellanos is a [id number] with past medical history of prediabetes, CKD, hypertension, history of ulcers who was admitted to [facility] for sepsis secondary to pneumonia and acute metabolic encephalopathy. Patient is currently sedated intubated in ICU status post exploratory laparotomy with repair of perforated gastric ulcer with an omental patch. Nephrology consulted for acute kidney injury. Assessment and plan #Acute kidney injury on dialysis T/TH/S #Acute Tubular Necrosis 2/2 shock # Fluid overload Patient currently seems to be in ATN probably ischemic from fluctuations in blood pressure and underlying shock- started her on dialysis. Plan ? Dialysis today ? Pharmacy to dose medications ? Avoid nephrotoxic medications ? Continue strict in and out ? Recommend to monitor fluid that was brought from home as it may contain high salt which may worsen her fluid overload. #Acute ischemic stroke #Acute decompensated HF #Hyperlipidemia #Primary Hypertension #Acute Hypoxic Respiratory failure #Peritonitis secondary to perforated gastric ulcer- s/p sx, drains removed #Acute Upper GI bleed #Diabetes Mellitus type II #Acute anemia Plan ? Follow-up with the primary team recommendations Thank you for your consultation, please do not hesitate to reach out if you have any concerns or questions. All above problems per primary team. Prognosis remains guarded. - Patient's plan and care discussed with my attending, Dr. Mata Sifuentes MD Internal Medicine PGY-2 Attending Provider Attestation/Addendum Patient seen and examined with resident physician Dr. Barton. Note reviewed, agree with findings and recommendations. Next dialysis scheduled for tomorrow. Overall her prognosis still remains guarded with significant wheezing.
[2024-06-20] MEDS: guaiFENesin SYRUP 200 MG/10 ML UDC PO ×2 (18:11→21:15)
[2024-06-20] MEDS: BALSAM PERU/CASTOR OIL (Venelex) 60 GM TUBE TOP (18:12)
[2024-06-20] MEDS: BUDESONIDE RT 0.5 MG/2 ML NEBU 1 MG INH (18:27)
--- NOTE | 2024-06-20 20:06 | PD.IMPROG ---
Documentation for date of: 06/20/24 Subjective Subjective Interval history: Some improvement in oral intake underwent dialysis today Exam Vital Signs Temp Pulse Resp BP Pulse Ox O2 Del Method O2 Flow Rate 97.6 F 98 20 146/94 H 97 Nasal Cannula 2 06/20/24 16:00 06/20/24 18:33 06/20/24 18:33 06/20/24 16:00 06/20/24 18:33 06/20/24 16:00 06/20/24 18:33 FiO2 4 06/20/24 11:51 Constitutional Comments: Chronically ill-appearing but improving Routine Respiratory Exam Comments: Decreased breath sounds Routine Abdominal Exam Comments: Soft nontender Objective Labs 06/20/24 05:54 06/20/24 05:54 Labs: Laboratory Results - last 24 hr 06/20/24 05:54 WBC 4.6 D RBC 3.94 L Hgb 10.6 L D Hct 32.4 L MCV 82 MCH 26.9 MCHC 32.7 RDW Std Deviation 58.2 H Plt Count 256 Neut % (Auto) 50 Lymph % (Auto) 47 [place] % (Auto) 2 Eos % (Auto) 0 Baso % (Auto) 1 Neut # (Auto) 2.3 Lymph # (Auto) 2.1 [place] # (Auto) 0.1 Eos # (Auto) 0.0 Baso # (Auto) 0.0 Immature Gran # (Auto) 0.03 H Absolute Nucleated RBC 0.12 H Immature Gran % 1 H Nucleated RBC % 3 H Sodium 137 Potassium 3.5 D Chloride 95 L Carbon Dioxide 26.7 Anion Gap 15 BUN 44 H Creatinine 4.2 H* D Estim Creat Clear Calc 10.8 L eGFR 11 L* BUN/Creatinine Ratio 10 L Glucose 167 H D Calculated Osmolality 289 Calcium 9.5 Corrected Calcium 9.5 Phosphorus 7.5 H Magnesium 2.0 Total Bilirubin 0.9 AST 68 H ALT 12 Alkaline Phosphatase 164 H D Total Protein 7.9 Albumin 4.1 Globulin 3.8 H Albumin/Globulin Ratio 1.1 L Random Vancomycin 14.9 Impressions Impression: # Poor oral intake # Status post gastric surgery for gastric ulcer perforation end-stage renal disease on hemodialysis # ABG Interpretation ABG results: 05/13/24 05/15/24 05/15/24 08:29 15:28 16:03 ABG pH 7.39 7.05 L* D 7.17 L* D ABG pCO2 31 L 63 H D 45 D ABG pO2 78 L 38 L* D 84 D ABG HCO3 19 L 18 L 16 L ABG O2 Saturation 96 59 L 96 ABG Base Excess -5 L -12 L -11 L VBG pH VBG pCO2 VBG pO2 VBG Base Excess 05/16/24 05/17/24 05/18/24 04:38 04:03 04:20 ABG pH 7.28 L D 7.38 D 7.49 H D ABG pCO2 34 D 28 L 30 L ABG pO2 96 85 66 L ABG HCO3 16 L 17 L 23 ABG O2 Saturation 98 97 94 ABG Base Excess -10 L -8 L 0 VBG pH VBG pCO2 VBG pO2 VBG Base Excess 05/19/24 05/20/24 05/21/24 09:05 06:05 22:35 ABG pH 7.30 L D 7.41 D ABG pCO2 49 H D 42 ABG pO2 63 L 63 L ABG HCO3 24 27 H ABG O2 Saturation 91 93 ABG Base Excess -3 2 VBG pH 7.31 L VBG pCO2 50 VBG pO2 39 VBG Base Excess -2 05/26/24 05/29/24 04:17 12:28 ABG pH 7.38 7.42 ABG pCO2 42 35 ABG pO2 81 L 67 L ABG HCO3 25 23 ABG O2 Saturation 97 95 ABG Base Excess 0 -2 VBG pH VBG pCO2 VBG pO2 VBG Base Excess Assessment & Plan A&P Narrative Ms. Castellanos is a 69-year-old female with past medical history significant for hypertension, diabetes and history of gastric ulcers who presented to the ED on 05/13/2024 after she was found unconscious on the floor. Per chart reviewing prior to this unconsciousness patient was having abdominal pain and generalized weakness with diarrhea and shortness of breath for 2 days. Patient was admitted to the hospital for treatment and management of sepsis secondary to pneumonia. Patient was given 1 L normal saline and started on ceftriaxone and azithromycin. patient underwent ex lap surgery for perforated gastric ulcer. Patient remained intubated postop and was upgraded to the ICU. Patient continues to be on dialysis after downgrade, has BALAJI and accordion drain intact, completed bowel rest, was started on dysphagia 1 diet, surgery following case closely, will continue to monitor. Patient continue with dialysis, white count coming down, may want to reconsider adjusting antibiotics. Follow-up with ID recommendations. #New onset A-fib with RVR, improving, rate controlled New onset of Afib, likely related to septic shock requiring pressor support and increased demand from perforated ulcer complicated by abdominal abscesses Pt appears to still be in A-fib, rate controlled, 90s to mid 100s Previous EKG shows a-fib w/RVR CHADVASC: 5 Pts 7.2 % stroke risk per year HAS-BLED score: 3, high risk of major bleeding Patient continues to be rate controlled, rate in the 90s Plan: ?Continue with Oral Amio 200 mg BID ?Continue with Eliquis 5 mg twice daily 06/17/2024: Patient did have an rapid response today during dialysis with hypotension dialysis was held. Nephrology team following and will plan the next session of dialysis. Patient apparently did not receive her metoprolol today and amiodarone. Recommend to continue with amiodarone for now and hold off on the metoprolol. Telemetry reviewed and heart rate is optimally controlled with 101-120 bpm. Patient has significant wheezing during the examination and also patient is active infection for which she is on antibiotics as well as antifungals since the surgery which is contributing to the A-fib with RVR. Primary team planning to discharge the patient when stable and awaiting SNF placement. #Acute exacerbation of HFpEF #HFpEF EF 55 to 60% #History of primary hypertension -Echo 05/16/2024 -estimated EF of 55 to 60%, stage I diastolic dysfunction noted, Moderate to severe posterior MAC Pt has new onset of ESRD requiring HD, requiring midodrine 10 mg QID to tolerate HD Not resuming home amlodipine at this time due to patient being A-fib and blood pressure eventually be controlled with beta-christian We recommend to give midodrine 5 to 10 mg 15 to 30 minutes before dialysis, can give additional 2.5 to 5 mg after dialysis as long as 3 hours after predialysis dose Half-life of midodrine is 9 to 10 hours and patient with CKD something to keep in mind Patient to continue with dialysis as electrolytes are abnormal including phosphorus. Plan: ?Resume GDMT as able, metoprolol on board right now, as above ?Fluid restriction ?Daily weights ?Strict ins and outs ?Keep potassium and magnesium above 4 and 2 respectively #Hx of Diabetes Mellitus type II Most recent A1c 05/21/2024: 6.2 Plan: Management by primary team #Perforated gastric ulcer #Pneumoperitoneum #Peritonitis secondary to perforated gastric ulcer #Abdominal Abscess, s/p percutaneous drainage x3 Patient found to have tender abdomen, rigidity in the epigastrium, chest x-ray showed elevation of hemidiaphragm, CT abdomen showed pneumoperitoneum, concern for perforated viscus, general surgeon Dr. Santana was consulted for emergency laparotomy and possible repair of perforated gastric ulcer. Repeat CT abd/pel on 05/20 revealed Pneumoperitoneum, orogastric tube in the stomach, mild free fluid adjacent to the stomach and anterior to the pancreas. s/p Exploratory laparotomy & repair of perforated gastric ulcer - 05/15. 06/01/24: Overnight there was concern of wound dehiscence. Discussed with general surgeon per surgery superior aspect of the wound was dehiscent after removal of aixa.Surgery removal of BALAJI drain on 06/01. Repeat CT on 06/01- More pronounced fluid collection in the left abdomen below the spleen, 8.9 x 6.4cm, free fluid in the abdomen and pelvis, and Ascites -Abscess culture from 05/25 grew edna albicans ?Repeat CT abdomen pelvis shows abscess collection lower left abdomen has markedly decreased in size and the accordion drains have no output this morning Plan: Management by primary hospitalist team #Acute blood loss anemia, stable Likely related to perforated ulcer Hgb stable ~7.7 Plan: Management by primary hospitalist team #Acute tubular necrosis, requiring hemodialysis #Acute Hypoxic Respiratory failure #Acute Upper GI bleed - stable #Hyperlipidemia #Acute blood loss anemia, stable #Acute encephalopathy-resolved #Septic Shock - resolved #Hypoosmolar Hyponatremia, resolved Management of rest of the medical conditions as per primary team and other consultants. Thank you for the consult and allowing me to participate in the care of the patient. Cardiology will continue to follow. Jalen Davis M.D. Interventional Cardiology Time Spent With Patient Time: Total time spent is greater than 50% in coordination of care (as documented) at patient's floor/unit and/or counseling patient:
[2024-06-20] MEDS: AMIODARONE HCL 200 MG TABLET PO (21:15)
[2024-06-20] MEDS: APIXABAN 2.5 MG TABLET 5 MG PO (21:16)
[2024-06-20] MEDS: MIRTAZAPINE 15 MG TABLET PO (21:17)
[2024-06-20] MEDS: PRAMIPEXOLE 0.25 MG TABLET PO (21:17)
--- NOTE | 2024-06-20 22:59 | PD.NEUROPROG ---
Documentation for date of: 06/20/24 Subjective Subjective Interval history: Patient was seen in telemetry today at the bedside, not much respiratory distress noted today. She is restless and is not olimpia to sleep. Exam - Neurology Vital Signs Temp Pulse Resp BP Pulse Ox O2 Del Method O2 Flow Rate 96.7 F L 103 H 19 145/93 H 97 Nasal Cannula 2 06/20/24 20:00 06/20/24 21:17 06/20/24 20:00 06/20/24 21:17 06/20/24 20:00 06/20/24 20:00 06/20/24 20:00 FiO2 4 06/20/24 11:51 Narrative Exam GENERAL APPEARANCE: Well-developed, obese built female in mild distress HEENT: Normocephalic, atraumatic, extraocular movements intact. Pupils: Equal reacting to light NECK: Supple, no JVD or bruits. CARDIOVASULAR: Heart: S1, S2 heard, irregular without S3-S4 or murmur no rubs or gallops. LUNGS/CHEST: Bilateral Rales and rhonchi heard. ABDOMEN: Soft, nontender, with normal bowel sounds. No pulsatile masses. No rebound, rigidity, or guarding. Normal inspection and palpation. EXTREMITIES: Significant edema in both upper and lower extremities. SKIN: Warm and dry without rashes. Normal inspection. MUSCULOSKELETAL: No cervical, thoracic, lumbar or midline bony tenderness. Normal inspection. NEURO: awake, alert, and restless. Brainstem function: Intact. Moves all 4 extremities but significantly weak all over, no signs of meningeal irritation noted. PSYCHIATRIC: Mood and affect: Limited Objective Labs 06/20/24 05:54 06/20/24 05:54 Labs: Laboratory Results - last 24 hr 06/20/24 05:54 WBC 4.6 D RBC 3.94 L Hgb 10.6 L D Hct 32.4 L MCV 82 MCH 26.9 MCHC 32.7 RDW Std Deviation 58.2 H Plt Count 256 Neut % (Auto) 50 Lymph % (Auto) 47 [place] % (Auto) 2 Eos % (Auto) 0 Baso % (Auto) 1 Neut # (Auto) 2.3 Lymph # (Auto) 2.1 [place] # (Auto) 0.1 Eos # (Auto) 0.0 Baso # (Auto) 0.0 Immature Gran # (Auto) 0.03 H Absolute Nucleated RBC 0.12 H Immature Gran % 1 H Nucleated RBC % 3 H Sodium 137 Potassium 3.5 D Chloride 95 L Carbon Dioxide 26.7 Anion Gap 15 BUN 44 H Creatinine 4.2 H* D Estim Creat Clear Calc 10.8 L eGFR 11 L* BUN/Creatinine Ratio 10 L Glucose 167 H D Calculated Osmolality 289 Calcium 9.5 Corrected Calcium 9.5 Phosphorus 7.5 H Magnesium 2.0 Total Bilirubin 0.9 AST 68 H ALT 12 Alkaline Phosphatase 164 H D Total Protein 7.9 Albumin 4.1 Globulin 3.8 H Albumin/Globulin Ratio 1.1 L Random Vancomycin 14.9 ABG Interpretation ABG results: 05/13/24 05/15/24 05/15/24 08:29 15:28 16:03 ABG pH 7.39 7.05 L* D 7.17 L* D ABG pCO2 31 L 63 H D 45 D ABG pO2 78 L 38 L* D 84 D ABG HCO3 19 L 18 L 16 L ABG O2 Saturation 96 59 L 96 ABG Base Excess -5 L -12 L -11 L VBG pH VBG pCO2 VBG pO2 VBG Base Excess 05/16/24 05/17/24 05/18/24 04:38 04:03 04:20 ABG pH 7.28 L D 7.38 D 7.49 H D ABG pCO2 34 D 28 L 30 L ABG pO2 96 85 66 L ABG HCO3 16 L 17 L 23 ABG O2 Saturation 98 97 94 ABG Base Excess -10 L -8 L 0 VBG pH VBG pCO2 VBG pO2 VBG Base Excess 05/19/24 05/20/24 05/21/24 09:05 06:05 22:35 ABG pH 7.30 L D 7.41 D ABG pCO2 49 H D 42 ABG pO2 63 L 63 L ABG HCO3 24 27 H ABG O2 Saturation 91 93 ABG Base Excess -3 2 VBG pH 7.31 L VBG pCO2 50 VBG pO2 39 VBG Base Excess -2 05/26/24 05/29/24 04:17 12:28 ABG pH 7.38 7.42 ABG pCO2 42 35 ABG pO2 81 L 67 L ABG HCO3 25 23 ABG O2 Saturation 97 95 ABG Base Excess 0 -2 VBG pH VBG pCO2 VBG pO2 VBG Base Excess Assessment & Plan Additional Assessment & Plan Additional Plan: 69-year-old female with past medical history of CKD stage III, prediabetes, hypertension who was found unconscious in her room. As well as diarrhea and shortness of breath. Admitted for sepsis secondary to pneumonia and acute metabolic encephalopathy #Acute metabolic encephalopathy- currently in telemetry, significant improvement noted, close to baseline #Generalized weakness --Brain MRI with MRA shows significant stenoses in posterior cerebral artery, no acute infarction noted -Will continue with the current management as per primary team Physical therapy as she tolerates. #RLS: will start Pramipexole 0.25 mg at bedtime
[2024-06-21] VITALS (13 sets, daily range): BP systolic 100–153; BP diastolic 63–92; PULSE 66–117; RESP 13–34; TEMP 36.2–36.6; O2SAT 94–100; BMI 31.5; BMI 12.0
[2024-06-21] MEDS: LEVALBUTEROL RT 0.63 MG/3 ML NEBU INH ×4 (03:51→15:00)
[2024-06-21] MEDS: IPRATROPIUM RT 0.5 MG/ 2.5 ML NEBU INH ×4 (03:51→15:00)
[2024-06-21] MEDS: guaiFENesin SYRUP 200 MG/10 ML UDC PO ×2 (05:32→12:15)
[2024-06-21 06:11] LABS: Basophils % (Auto) 0 % (0-2.5); Eosinophils % (Auto) 0 % (0-10); Hematocrit 34.5 % (36.0-46.0); Hemoglobin 11.1 g/dL (12.0-16.0); Immature Granulocytes % (Auto) 1 % (0-0); Immature Granulocytes Auto 0.05 Thou/mm3 (0.00-0.00); Lymphocytes # (Auto) 2.3 Thou/mm3 (1.0-4.8); Lymphocytes % (Auto) 27 % (10-50); Mean Corpuscular HGB Conc 32.2 g/dl (31.0-37.0); Mean Corpuscular Volume 84 fL (80-100); Monocytes # (Auto) 0.8 Thou/mm3 (0.0-0.8); Monocytes % (Auto) 9 % (0-12); Neutrophils # (Auto) 5.2 Thou/mm3 (1.8-7.7); Neutrophils % (Auto) 63 % (37-80); Nucleated Red Blood Cell # 0.09 Thou/mm3 (0.00-0.00); Nucleated Red Blood Cell % 1 /100 WBC (0); Platelet Count 235 Thou/mm3 (140-440); RDW Standard Deviation 63.1 fL (36.4-46.3); Red Blood Count 4.11 Miln/mm3 (4.00-5.20); White Blood Count 8.4 Thou/mm3 (3.6-11.0)
[2024-06-21 06:39] LABS: Alanine Aminotransferase 13 U/L (10-49); Albumin, Serum 4.5 gm/dL (3.4-4.8); Anion Gap 14 (7-16); Aspartate Amino Transferase 58 U/L (0-34); BUN/Creatinine Ratio 11 Ratio (12-20); Blood Urea Nitrogen 40 mg/dL (9-23); Calcium 9.9 mg/dL (8.3-10.6); Carbon Dioxide 26.5 mMol/L (20.0-31.0); Chloride 97 mMol/L (98-107); Creatinine (Component) 3.5 mg/dL (0.6-1.3); Estimated Creatinine Clearance 12.2 mL/min (>60); Glucose 98 mg/dL (74-106); Osmolality,Calculated 283 (275-295); Phosphorous 5.4 mg/dL (2.4-5.1); Sodium 137 mMol/L (136-145); Total Protein 8.3 gm/dL (5.7-8.2); eGFR 14 See Note
[2024-06-21 06:40] LABS: Albumin/Globulin Ratio 1.2 (1.2-2.2); Alkaline Phosphatase 152 U/L (46-116); Calcium (Corrected) 9.9 mg/dL (8.5-10.1); Globulin 3.8 gm/dL (2.3-3.5)
[2024-06-21] MEDS: BUDESONIDE RT 0.5 MG/2 ML NEBU 1 MG INH (07:13)
--- NOTE | 2024-06-21 09:10 | PC.SS ---
Follow up note: ADLEITA called Monie at [facility] and chair time is still pending. SS has informed Davida from [facility] pt will be dc today.
--- NOTE | 2024-06-21 10:13 | PD.RESPRO ---
Documentation for date of: 06/21/24 Subjective Subjective Interval history: Mr. Castellanos is a [id number] with past medical history of prediabetes, CKD, hypertension, history of ulcers who was admitted to [facility] for sepsis secondary to pneumonia and acute metabolic encephalopathy. Patient was BIBA to the ED after being found unconscious on the floor. According to the son on admission patient's daughter found the patient at 3 AM passed out on the floor and unresponsive. Family is unaware along the patient was on the floor. 2 days ago patient started to develop abdominal pain and weakness all over her body associated with some diarrhea and shortness of breath. Patient's abdominal pain comes and goes from right side to left side of the abdomen. ED course patient was hypertensive tachycardic tachypneic and was saturating 92% on 5 L nasal cannula ED labs significant for WBCs 24.3, bicarb 19.6, glucose 259, lactic acid 2.2, BNP 304, troponin 0.09. 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, colonic diverticulosis, Cervical spine CT showed 3 mm radiolucency in C3 vertebral body Chest CTA showed mild aneurysmal dilatation ascending thoracic aorta AP dimension 4.3 cm and pulmonary artery hypertension with moderate vascular congestion Face CT shows no acute facial fracture, Lumbar spine CT shows no acute lumbar fracture severe acquired spinal stenosis L4-L5, Thoracic spine CT showed no acute fracture Brain MRI with MRA showed equally focal restricted diffusion brainstem medullary level significant stenosis of right P1 P2 segment posterior cerebral artery Postadmission, cardiology was consulted on admission because of elevated troponins, suspicion of NSTEMI type II, patient has acute decompensated heart failure per cardiology evaluation, neurology consulted because of patient's acute metabolic encephalopathy and GI was consulted for suspicion of GI bleed. Eventually on 05/15 rapid response was called for worsening chest pain, patient's map was consistently in 70s, was tachycardic tachypneic. CT angiogram showed pneumoperitoneum multiple air droplets adjacent to and within wall of stomach with suspicion of gastric perforation. General surgery was consulted for emergency surgery and patient had exploratory laparotomy with repair of perforated gastric ulcer with an omental patch. Patient was upgraded to ICU postop for further management patient currently on Levophed and vasopressor due to distributive shock, currently sedated and intubated on mechanical ventilation. Nephrology consulted due to concern of ADILSON. 06/10/2024 patient currently seen in telemetry. Patient complaining of abdominal pain. Scheduled for dialysis today. Although did have some trouble with catheter before. tPA was placed. Catheter could not be exchanged yesterday. Will monitor catheter function closely. Unfortunately IR not available until Wednesday. 06/11/2024 patient currently seen in telemetry. Sick looking. Did receive dialysis yesterday. Still having some abdominal discomfort.WBC 28.7, hemoglobin 7.8, platelets 261. Sodium 134, potassium 4.8, BUN 53, creatinine 5.6, magnesium 2.4, LFTs normal, albumin 4.0 chest x-ray showed pneumonia/mild heart failure. CT abdomen repeat showed multiple abdominal and pelvic abscesses. Prognosis remains guarded. 06/17/2024 patient supposed to be discharged to rehab today. Alert and awake. Daughter at bedside. Outpatient dialysis TTS schedule done. Try to do short run of dialysis today however patient had an significant hypotension I had to stop dialysis. After giving 200 cc fluid her blood pressure returned back to normal. Discharge planning per primary team. 06/18/2024 patient currently seen in telemetry. She is more alert and awake today. Denies any chest pain. Still having some cough and shortness of breath with wheezing. Significant functional decline. Denies any abdominal pain today. Labs, medications reviewed. She did have a hypotensive episode at dialysis yesterday and currently on midodrine. Discharge planning to rehab once stable. plan of care discussed with primary team. 06/19/2024, patient was seen and examined at bedside. Patient was awake and alert however she was little bit anxious. Denied any chest pain. On auscultation patient was found to be having wheezing, and also coarse crepitations bilaterally. Yesterday dialysis was stopped because the patient became hypotensive. Today her blood pressure is good to resume another session of dialysis. 06/20/2024, patient is seen and examined at bedside. Patient was awake and alert and did not oriented she was having dialysis at that time. He seems a little bit anxious however she was saturating well on 2 L of oxygen. Her heart rate was 110, blood pressure during dialysis was elevated 178/95. Patient is pending videofluoroscopy reads for her persistent cough and wheezing. 06/21/2024, patient was seen and examined at bedside. Patient was sleeping in semisitting position. Coarse crepitation can be heard without stethoscope. Patient denied any chest pain, her anxiety has decreased since yesterday. She is now on 2 L of oxygen saturating 96%. Yesterday patient underwent hemodialysis as per her schedule. Today no dialysis patient does not seem to be overloaded. Exam Vital Signs Temp Pulse Resp BP Pulse Ox O2 Del Method O2 Flow Rate 97.1 F 98 20 146/74 H 99 Nasal Cannula 2 06/21/24 08:00 06/21/24 08:00 06/21/24 08:00 06/21/24 08:00 06/21/24 08:00 06/21/24 08:00 06/21/24 08:00 FiO2 4 06/20/24 11:51 Narrative Exam PatientGEN: AOx3, sleepy n semi-sitting position CVS: RRR, S1-S2 present, no murmurs appreciated RESP: Diffuse crepitations bilaterally, bilateral wheezing GI: soft, non distended, non tender, NBS MSK: able to move all 4 limbs however significant generalized weakness, no lower limb edema SKIN: warm and dry TECHNOLOGY RISK INTERN: CN II-XII and Sensation grossly intact. Objective Labs 06/21/24 05:35 06/21/24 05:35 Labs: Laboratory Results - last 24 hr 06/21/24 05:35 WBC 8.4 D RBC 4.11 Hgb 11.1 L Hct 34.5 L MCV 84 MCH 27.0 MCHC 32.2 RDW Std Deviation 63.1 H Plt Count 235 Neut % (Auto) 63 Lymph % (Auto) 27 [place] % (Auto) 9 Eos % (Auto) 0 Baso % (Auto) 0 Neut # (Auto) 5.2 Lymph # (Auto) 2.3 [place] # (Auto) 0.8 Eos # (Auto) 0.0 Baso # (Auto) 0.0 Immature Gran # (Auto) 0.05 H Absolute Nucleated RBC 0.09 H Immature Gran % 1 H Nucleated RBC % 1 H Sodium 137 Potassium 3.0 L D Chloride 97 L Carbon Dioxide 26.5 Anion Gap 14 BUN 40 H Creatinine 3.5 H D Estim Creat Clear Calc 12.2 L eGFR 14 L* BUN/Creatinine Ratio 11 L Glucose 98 D Calculated Osmolality 283 Calcium 9.9 Corrected Calcium 9.9 Phosphorus 5.4 H Magnesium 2.0 Total Bilirubin 1.0 AST 58 H ALT 13 Alkaline Phosphatase 152 H Total Protein 8.3 H Albumin 4.5 Globulin 3.8 H Albumin/Globulin Ratio 1.2 ABG Interpretation ABG results: 05/13/24 05/15/24 05/15/24 08:29 15:28 16:03 ABG pH 7.39 7.05 L* D 7.17 L* D ABG pCO2 31 L 63 H D 45 D ABG pO2 78 L 38 L* D 84 D ABG HCO3 19 L 18 L 16 L ABG O2 Saturation 96 59 L 96 ABG Base Excess -5 L -12 L -11 L VBG pH VBG pCO2 VBG pO2 VBG Base Excess 05/16/24 05/17/24 05/18/24 04:38 04:03 04:20 ABG pH 7.28 L D 7.38 D 7.49 H D ABG pCO2 34 D 28 L 30 L ABG pO2 96 85 66 L ABG HCO3 16 L 17 L 23 ABG O2 Saturation 98 97 94 ABG Base Excess -10 L -8 L 0 VBG pH VBG pCO2 VBG pO2 VBG Base Excess 05/19/24 05/20/24 05/21/24 09:05 06:05 22:35 ABG pH 7.30 L D 7.41 D ABG pCO2 49 H D 42 ABG pO2 63 L 63 L ABG HCO3 24 27 H ABG O2 Saturation 91 93 ABG Base Excess -3 2 VBG pH 7.31 L VBG pCO2 50 VBG pO2 39 VBG Base Excess -2 05/26/24 05/29/24 04:17 12:28 ABG pH 7.38 7.42 ABG pCO2 42 35 ABG pO2 81 L 67 L ABG HCO3 25 23 ABG O2 Saturation 97 95 ABG Base Excess 0 -2 VBG pH VBG pCO2 VBG pO2 VBG Base Excess Quality Measures Quality Measures none Advance care planning discussed with:: patient and child Assessment & Plan Assessment Current Active Medications: Generic Name Dose Route Start Last Admin Trade Name Freq PRN Reason Stop Dose Admin Acetaminophen 650 mg 06/09/24 14:11 06/20/24 19:38 Acetaminophen 325 Mg Tablet PO 07/09/24 14:10 650 mg Q6HR PRN Administration Fever >101 and pain 1-3 Amiodarone HCl 200 mg 05/29/24 15:00 06/20/24 21:15 Amiodarone Hcl 200 Mg Tablet PO 06/28/24 14:59 200 mg BID ANGELICA Administration Apixaban 5 mg 06/13/24 21:00 06/20/24 21:16 Apixaban 2.5 Mg Tablet PO 07/13/24 20:59 5 mg BID ANGELICA Administration Balsam [place] Oil 0 gm 06/20/24 16:45 06/20/24 18:12 Balsam [place] Oil (Venelex) 60 Gm Tube TOP 07/20/24 16:44 1 applicatio BID ANGELICA Administration Benzocaine 1 lozenge 05/31/24 11:53 06/09/24 23:07 Benzocaine/Menthol 1 Lozenge PO 06/30/24 11:52 1 lozenge Q4HR PRN Administration Sore throat Budesonide 1 mg 06/20/24 10:15 06/21/24 07:13 Budesonide Rt 0.5 Mg/2 Ml Nebu INH 07/20/24 10:14 1 mg BIDRT ANGELICA Administration Dextrose 25 ml 05/24/24 15:43 Dextrose 50%-Water Inj 50 Ml Syringe IV 06/23/24 15:42 Q15MIN PRN BG 50-70 responsive npo pt Dextrose 50 ml 05/24/24 15:43 Dextrose 50%-Water Inj 50 Ml Syringe IV 06/23/24 15:42 Q15MIN PRN BG <50 OR BG <70 & pt unresponsive Dronabinol 5 mg 06/07/24 10:40 06/20/24 18:11 Dronabinol 2.5 Mg Capsule PO 07/07/24 10:39 5 mg BIDAC ANGELICA Administration Glucagon 1 mg 05/24/24 15:43 Glucagon Inj 1 Mg Vial IM Q15MIN PRN BG <70, and no IV access Guaifenesin 200 mg 06/10/24 08:30 06/21/24 05:32 Guaifenesin Syrup 200 Mg/10 Ml Udc PO 07/10/24 08:29 200 mg QID ANGELICA Administration Protocol Heparin Sodium (Porcine) 3,500 unit 06/16/24 08:22 06/19/24 13:31 Heparin Sod Inj 1000 Unit/Ml Vial 10 Ml IV 06/30/24 08:21 3,500 unit X1 PRN Administration DIALYSIS Micafungin Sodium 100 mg/ 100 mls @ 100 mls/hr 06/10/24 13:56 06/20/24 15:50 Sodium Chloride IV 06/25/24 13:55 100 mls/hr QDAY ANGELICA Administration Albumin Human 25 gm in 100 mls @ 100 mls/hr 06/20/24 11:03 06/20/24 11:05 Albuminar-25 Ivpb IV 100 mls/hr PRN PRN Administration DIALYSIS Potassium Chloride 10 meq in 100 mls @ 100 mls/hr 06/21/24 07:58 Kcl Ivpb IV 06/21/24 11:57 Q1H [facility] Insulin Glargine 12 unit 05/25/24 09:00 06/20/24 11:29 Insulin Glargine (Lantus) 5 Unit/0.05 Ml (Per 5 Units) SC 06/24/24 08:59 Not Given QDAY ANGELICA Insulin Human Lispro 0 unit 06/16/24 07:30 06/21/24 07:37 Insulin Lispro (Admelog) 1 Unit/0.01 Ml Unit SC 07/16/24 07:29 Not Given AC [facility] Protocol Ipratropium [place] 0.5 mg 06/19/24 11:00 06/21/24 07:13 Ipratropium Rt 0.5 Mg/ 2.5 Ml Nebu INH 07/19/24 10:59 0.5 mg Q4HRRT ANGELICA Administration Levalbuterol HCl 0.63 mg 06/19/24 09:25 06/21/24 07:13 Levalbuterol Rt 0.63 Mg/3 Ml Nebu INH 07/19/24 10:59 0.63 mg Q4HRRT PRN Administration wheezing Lidocaine 1 patch 05/30/24 09:16 06/17/24 09:23 Lidocaine 5% 1 Patch TOP 06/29/24 09:15 1 patch DAILY PRN Administration BACK PAIN Midodrine 10 mg 06/17/24 14:00 06/21/24 05:27 Midodrine 5 Mg Tablet PO 07/17/24 13:59 Not Given TID ANGELICA Mirtazapine 15 mg 06/13/24 21:00 06/20/24 21:17 Mirtazapine 15 Mg Tablet PO 07/13/24 20:59 15 mg HS ANGELICA Administration Polyethylene Glycol 17 gm 06/12/24 15:36 Polyethylene Glycol 17 Gm Packet PO 07/09/24 10:44 BID PRN constipation Protocol Pramipexole Dihydrochloride 0.25 mg 06/20/24 21:00 06/20/24 21:17 Pramipexole 0.25 Mg Tablet PO 07/20/24 20:59 0.25 mg HS ANGELICA Administration Sennosides 1 tab 06/09/24 10:45 06/20/24 13:23 Senna Tablet PO 07/09/24 10:44 Not Given QDAY ANGELICA Protocol Sodium Bicarbonate 325 mg 06/19/24 09:00 06/20/24 13:24 Sodium Bicarbonate 650 Mg Tablet PO 07/19/24 08:59 Not Given QDAY ANGELICA Sodium Chloride 3 ml 05/24/24 19:00 06/19/24 08:44 Sodium Chloride Rt [place] 0.9% 3 Ml Nebu INH 06/23/24 18:59 3 ml PRN PRN Administration SOLN Timolol Maleate 1 drop 05/28/24 18:15 06/20/24 13:24 Timolol Op [place] 0.5% 5 Ml Btl BOTH EYES 06/27/24 18:14 Not Given DAILY ANGELICA Plan Mr. Castellanos is a [id number] with past medical history of prediabetes, CKD, hypertension, history of ulcers who was admitted to [facility] for sepsis secondary to pneumonia and acute metabolic encephalopathy. Patient is currently sedated intubated in ICU status post exploratory laparotomy with repair of perforated gastric ulcer with an omental patch. Nephrology consulted for acute kidney injury. Assessment and plan #Acute kidney injury on dialysis T/Th/S #Acute Tubular Necrosis 2/2 shock # Fluid overload Patient currently seems to be in ATN probably ischemic from fluctuations in blood pressure and underlying shock- started her on dialysis. Plan ? Dialysis tomorrow as per schedule no signs of fluid overload. ? Pharmacy to dose medications ? Avoid nephrotoxic medications ? Continue strict in and out ? Recommend to monitor fluid that was brought from home as it may contain high salt which may worsen her fluid overload #Acute ischemic stroke #Acute decompensated HF #Hyperlipidemia #Primary Hypertension #Acute Hypoxic Respiratory failure #Peritonitis secondary to perforated gastric ulcer- s/p sx, drains removed #Acute Upper GI bleed #Diabetes Mellitus type II #Acute anemia Plan ? Follow-up with the primary team recommendations Thank you for your consultation, please do not hesitate to reach out if you have any concerns or questions. All above problems per primary team. Prognosis remains guarded. - Patient's plan and care discussed with my attending, Dr. Mata Sifuentes MD Internal Medicine PGY-2 Attending Provider Attestation/Addendum Patient seen and examined with resident physician Dr. Batron. Note reviewed, agree with findings and recommendations. Patient did receive dialysis yesterday. Seems to be still having significant wheezing. video swallow was done. Suspected aspiration Next dialysis scheduled for tomorrow. Patient should be able to sit in a chair to come to dialysis unit. Plan of care discussed with the daughter. Physical therapy ordered.
--- NOTE | 2024-06-21 10:40 | PD.RESPRO ---
Documentation for date of: 06/21/24 Subjective Subjective Interval history: 06/19/2024: Pt examined at bedside today. Telemetry reviewed, pt's max HR 120, rate controlled 90s-100s. Patient reports she is doing well. She is sitting upright in her chair and is improving. Patient is scheduled to get dialysis today phosphorous 9.6, BUN 54, Cr 6.2. Pt denies CP, palpitations and SOB. Denies having a hx of smoking or COPD. No other complaints at this time. 06/20/2024: Pt examined while in dialysis chair today. No acute overnight events on telemetry, rate seems to be controlled in the 100s to 110s, max rate 150. Patient reports she is doing well but is requesting some pain medicine for her abdomen and back. She seems much more awake and less lethargic from yesterday. There was concern for aspiration or patient as patient will cough up frequently after she eats or drinks therefore a videofluoroscopy was ordered. Her BUN/creatinine is 44 and 4.2 respectively, mag and potassium 2.0 and 3.5 respectively, phosphorus 7.5, white count of 4.6, hemoglobin of 10.6. Hematology panel looks to be elevated, patient most likely has hemoconcentrated sample. Will follow-up with videofluoroscopy results continue with breathing treatments, patient is improving. No other complaints at this time 06/21/2024: Patient examined bedside today. No overnight events on telemetry, rate controlled in 100s 110s. Patient to have videofluoroscopy done yesterday, will follow-up with her court. She is off oxygen at this time and saturating well. She reports that she is doing well, and slept well last night. BUN/creatinine today is 43.5 respectively, potassium 3, repleted with 40 mEq IV, white count 8.4, hemoglobin of 11.1. Magnesium 2.0 and phosphorus 5.4. Patient to continue with breathing treatments as she is still wheezing. No other complaints this time Exam Vital Signs Temp Pulse Resp BP Pulse Ox O2 Del Method O2 Flow Rate 97.1 F 98 20 146/74 H 99 Nasal Cannula 2 06/21/24 08:00 06/21/24 08:00 06/21/24 08:00 06/21/24 08:00 06/21/24 08:00 06/21/24 08:00 06/21/24 08:00 FiO2 4 06/20/24 11:51 Narrative Exam General: AAOx3, NAD, a bit sleepy this morning HEENT: Moist mucous membranes, conjunctiva clear, EOMI, PERRLA, Cardiovascular: S1, S2, radial pulses +2 bilat, irregularly irregular rhythm Pulmonary: Wheezing heard diffusely GI: No tenderness to light or deep palpitation, no guarding, rigidity, Extremities: Trace edema in lower extremities bilaterally, dorsalis pedis pulses +2 bilaterally Neuro: AAOx3, no focal motor or sensory deficits in the UE or LE bilat Psych: Cooperative Objective Labs 06/21/24 05:35 06/21/24 05:35 Labs: Laboratory Results - last 24 hr 06/21/24 05:35 WBC 8.4 D RBC 4.11 Hgb 11.1 L Hct 34.5 L MCV 84 MCH 27.0 MCHC 32.2 RDW Std Deviation 63.1 H Plt Count 235 Neut % (Auto) 63 Lymph % (Auto) 27 [place] % (Auto) 9 Eos % (Auto) 0 Baso % (Auto) 0 Neut # (Auto) 5.2 Lymph # (Auto) 2.3 [place] # (Auto) 0.8 Eos # (Auto) 0.0 Baso # (Auto) 0.0 Immature Gran # (Auto) 0.05 H Absolute Nucleated RBC 0.09 H Immature Gran % 1 H Nucleated RBC % 1 H Sodium 137 Potassium 3.0 L D Chloride 97 L Carbon Dioxide 26.5 Anion Gap 14 BUN 40 H Creatinine 3.5 H D Estim Creat Clear Calc 12.2 L eGFR 14 L* BUN/Creatinine Ratio 11 L Glucose 98 D Calculated Osmolality 283 Calcium 9.9 Corrected Calcium 9.9 Phosphorus 5.4 H Magnesium 2.0 Total Bilirubin 1.0 AST 58 H ALT 13 Alkaline Phosphatase 152 H Total Protein 8.3 H Albumin 4.5 Globulin 3.8 H Albumin/Globulin Ratio 1.2 ABG Interpretation ABG results: 05/13/24 05/15/24 05/15/24 08:29 15:28 16:03 ABG pH 7.39 7.05 L* D 7.17 L* D ABG pCO2 31 L 63 H D 45 D ABG pO2 78 L 38 L* D 84 D ABG HCO3 19 L 18 L 16 L ABG O2 Saturation 96 59 L 96 ABG Base Excess -5 L -12 L -11 L VBG pH VBG pCO2 VBG pO2 VBG Base Excess 05/16/24 05/17/24 05/18/24 04:38 04:03 04:20 ABG pH 7.28 L D 7.38 D 7.49 H D ABG pCO2 34 D 28 L 30 L ABG pO2 96 85 66 L ABG HCO3 16 L 17 L 23 ABG O2 Saturation 98 97 94 ABG Base Excess -10 L -8 L 0 VBG pH VBG pCO2 VBG pO2 VBG Base Excess 05/19/24 05/20/24 05/21/24 09:05 06:05 22:35 ABG pH 7.30 L D 7.41 D ABG pCO2 49 H D 42 ABG pO2 63 L 63 L ABG HCO3 24 27 H ABG O2 Saturation 91 93 ABG Base Excess -3 2 VBG pH 7.31 L VBG pCO2 50 VBG pO2 39 VBG Base Excess -2 05/26/24 05/29/24 04:17 12:28 ABG pH 7.38 7.42 ABG pCO2 42 35 ABG pO2 81 L 67 L ABG HCO3 25 23 ABG O2 Saturation 97 95 ABG Base Excess 0 -2 VBG pH VBG pCO2 VBG pO2 VBG Base Excess Quality Measures Quality Measures none Advance care planning discussed with:: patient Assessment & Plan Assessment Current Active Medications: Generic Name Dose Route Start Last Admin Trade Name Freq PRN Reason Stop Dose Admin Acetaminophen 650 mg 06/09/24 14:11 06/20/24 19:38 Acetaminophen 325 Mg Tablet PO 07/09/24 14:10 650 mg Q6HR PRN Administration Fever >101 and pain 1-3 Amiodarone HCl 200 mg 05/29/24 15:00 06/20/24 21:15 Amiodarone Hcl 200 Mg Tablet PO 06/28/24 14:59 200 mg BID ANGELICA Administration Apixaban 5 mg 06/13/24 21:00 06/20/24 21:16 Apixaban 2.5 Mg Tablet PO 07/13/24 20:59 5 mg BID ANGELICA Administration Balsam [place] Oil 0 gm 06/20/24 16:45 06/20/24 18:12 Balsam [place] Oil (Venelex) 60 Gm Tube TOP 07/20/24 16:44 1 applicatio BID ANGELICA Administration Benzocaine 1 lozenge 05/31/24 11:53 06/09/24 23:07 Benzocaine/Menthol 1 Lozenge PO 06/30/24 11:52 1 lozenge Q4HR PRN Administration Sore throat Budesonide 1 mg 06/20/24 10:15 06/21/24 07:13 Budesonide Rt 0.5 Mg/2 Ml Nebu INH 07/20/24 10:14 1 mg BIDRT ANGELICA Administration Dextrose 25 ml 05/24/24 15:43 Dextrose 50%-Water Inj 50 Ml Syringe IV 06/23/24 15:42 Q15MIN PRN BG 50-70 responsive npo pt Dextrose 50 ml 05/24/24 15:43 Dextrose 50%-Water Inj 50 Ml Syringe IV 06/23/24 15:42 Q15MIN PRN BG <50 OR BG <70 & pt unresponsive Dronabinol 5 mg 06/07/24 10:40 06/20/24 18:11 Dronabinol 2.5 Mg Capsule PO 07/07/24 10:39 5 mg BIDAC ANGELICA Administration Glucagon 1 mg 05/24/24 15:43 Glucagon Inj 1 Mg Vial IM Q15MIN PRN BG <70, and no IV access Guaifenesin 200 mg 06/10/24 08:30 06/21/24 05:32 Guaifenesin Syrup 200 Mg/10 Ml Udc PO 07/10/24 08:29 200 mg QID ANGELICA Administration Protocol Heparin Sodium (Porcine) 3,500 unit 06/16/24 08:22 06/19/24 13:31 Heparin Sod Inj 1000 Unit/Ml Vial 10 Ml IV 06/30/24 08:21 3,500 unit X1 PRN Administration DIALYSIS Micafungin Sodium 100 mg/ 100 mls @ 100 mls/hr 06/10/24 13:56 06/20/24 15:50 Sodium Chloride IV 06/25/24 13:55 100 mls/hr QDAY ANGELICA Administration Albumin Human 25 gm in 100 mls @ 100 mls/hr 06/20/24 11:03 06/20/24 11:05 Albuminar-25 Ivpb IV 100 mls/hr PRN PRN Administration DIALYSIS Potassium Chloride 10 meq in 100 mls @ 100 mls/hr 06/21/24 07:58 Kcl Ivpb IV 06/21/24 11:57 Q1H ANGELICA Insulin Glargine 12 unit 05/25/24 09:00 06/20/24 11:29 Insulin Glargine (Lantus) 5 Unit/0.05 Ml (Per 5 Units) SC 06/24/24 08:59 Not Given QDAY ANGELICA Insulin Human Lispro 0 unit 06/16/24 07:30 06/21/24 07:37 Insulin Lispro (Admelog) 1 Unit/0.01 Ml Unit SC 07/16/24 07:29 Not Given AC ANGELICA Protocol Ipratropium [place] 0.5 mg 06/19/24 11:00 06/21/24 07:13 Ipratropium Rt 0.5 Mg/ 2.5 Ml Nebu INH 07/19/24 10:59 0.5 mg Q4HRRT ANGELICA Administration Levalbuterol HCl 0.63 mg 06/19/24 09:25 06/21/24 07:13 Levalbuterol Rt 0.63 Mg/3 Ml Nebu INH 07/19/24 10:59 0.63 mg Q4HRRT PRN Administration wheezing Lidocaine 1 patch 05/30/24 09:16 06/17/24 09:23 Lidocaine 5% 1 Patch TOP 06/29/24 09:15 1 patch DAILY PRN Administration BACK PAIN Midodrine 10 mg 06/17/24 14:00 06/21/24 05:27 Midodrine 5 Mg Tablet PO 07/17/24 13:59 Not Given TID ANGELICA Mirtazapine 15 mg 06/13/24 21:00 06/20/24 21:17 Mirtazapine 15 Mg Tablet PO 07/13/24 20:59 15 mg HS ANGELICA Administration Polyethylene Glycol 17 gm 06/12/24 15:36 Polyethylene Glycol 17 Gm Packet PO 07/09/24 10:44 BID PRN constipation Protocol Pramipexole Dihydrochloride 0.25 mg 06/20/24 21:00 06/20/24 21:17 Pramipexole 0.25 Mg Tablet PO 07/20/24 20:59 0.25 mg HS ANGELICA Administration Sennosides 1 tab 06/09/24 10:45 06/20/24 13:23 Senna Tablet PO 07/09/24 10:44 Not Given QDAY ANGELICA Protocol Sodium Bicarbonate 325 mg 06/19/24 09:00 06/20/24 13:24 Sodium Bicarbonate 650 Mg Tablet PO 07/19/24 08:59 Not Given QDAY ANGELICA Sodium Chloride 3 ml 05/24/24 19:00 06/19/24 08:44 Sodium Chloride Rt [place] 0.9% 3 Ml Nebu INH 06/23/24 18:59 3 ml PRN PRN Administration SOLN Timolol Maleate 1 drop 05/28/24 18:15 06/20/24 13:24 Timolol Op [place] 0.5% 5 Ml Btl BOTH EYES 06/27/24 18:14 Not Given DAILY ANGELICA Plan Assessment Ms. Castellanos is a 69-year-old female with past medical history significant for hypertension, diabetes and history of gastric ulcers who presented to the ED on 05/13/2024 after she was found unconscious on the floor. Per chart reviewing prior to this unconsciousness patient was having abdominal pain and generalized weakness with diarrhea and shortness of breath for 2 days. Patient was admitted to the hospital for treatment and management of sepsis secondary to pneumonia. Patient was given 1 L normal saline and started on ceftriaxone and azithromycin. patient underwent ex lap surgery for perforated gastric ulcer. Patient remained intubated postop and was upgraded to the ICU. Patient continues to be on dialysis after downgrade, has BALAJI and accordion drain intact, completed bowel rest, was started on dysphagia 1 diet, surgery following case closely, will continue to monitor. Patient continue with dialysis, white count coming down, may want to reconsider adjusting antibiotics. Follow-up with ID recommendations. #New onset A-fib with RVR, improving, rate controlled New onset of Afib, likely related to septic shock requiring pressor support and increased demand from perforated ulcer complicated by abdominal abscesses Pt appears to still be in A-fib, rate controlled, 90s to mid 100s Previous EKG shows a-fib w/RVR CHADVASC: 5 Pts 7.2 % stroke risk per year HAS-BLED score: 3, high risk of major bleeding Patient continues to be rate controlled, rate in the 90s-100s We recommend continuing levalbuterol for wheezing/doing so, and we recommend primary team to start LABA Pt may be able to resume BB at some point as blood pressure is starting to become higher, pt remains to be rate controlled with amio Plan: ?Continue with Oral Amio 200 mg BID ?Continue with Eliquis 5 mg twice daily #Acute exacerbation of HFpEF #HFpEF EF 55 to 60% #History of primary hypertension -Echo 05/16/2024 -estimated EF of 55 to 60%, stage I diastolic dysfunction noted, Moderate to severe posterior MAC We recommend to give midodrine 5 to 10 mg 15 to 30 minutes before dialysis, can give additional 2.5 to 5 mg after dialysis as long as 3 hours after predialysis dose Half-life of midodrine is 9 to 10 hours and patient with CKD something to keep in mind Patient to continue with dialysis Plan: ?Resume GDMT as able ?Fluid restriction ?Daily weights ?Strict ins and outs ?Keep potassium and magnesium above 4 and 2 respectively #? Aspiration pneumonia Concern with patient as she is wheezing, coughs frequently with oral ingestion Patient has not spiked a fever Plan: ?Follow-up videofluoroscopy ?Speech therapy ?Continue with breathing treatments #Hx of Diabetes Mellitus type II Most recent A1c 05/21/2024: 6.2 Plan: Management by primary team #Perforated gastric ulcer #Pneumoperitoneum #Peritonitis secondary to perforated gastric ulcer #Abdominal Abscess, s/p percutaneous drainage x3 Patient found to have tender abdomen, rigidity in the epigastrium, chest x-ray showed elevation of hemidiaphragm, CT abdomen showed pneumoperitoneum, concern for perforated viscus, general surgeon Dr. Santana was consulted for emergency laparotomy and possible repair of perforated gastric ulcer. Repeat CT abd/pel on 05/20 revealed Pneumoperitoneum, orogastric tube in the stomach, mild free fluid adjacent to the stomach and anterior to the pancreas. s/p Exploratory laparotomy & repair of perforated gastric ulcer - 05/15. 06/01/24: Overnight there was concern of wound dehiscence. Discussed with general surgeon per surgery superior aspect of the wound was dehiscent after removal of aixa.Surgery removal of BALAJI drain on 06/01. Repeat CT on 06/01- More pronounced fluid collection in the left abdomen below the spleen, 8.9 x 6.4cm, free fluid in the abdomen and pelvis, and Ascites -Abscess culture from 05/25 grew edna albicans ?Repeat CT abdomen pelvis shows abscess collection lower left abdomen has markedly decreased in size and the accordion drains have no output this morning Plan: Management by primary hospitalist team #Acute blood loss anemia, stable Likely related to perforated ulcer Hgb stable ~11.1 Plan: Management by primary hospitalist team #Acute tubular necrosis, requiring hemodialysis #Acute Hypoxic Respiratory failure #Acute Upper GI bleed - stable #Hyperlipidemia #Acute blood loss anemia, stable #Acute encephalopathy-resolved #Septic Shock - resolved #Hypoosmolar Hyponatremia, resolved Patient seen and care discussed with my attending physician, Dr. Susan Mathews, PGY-1 Attending Provider Attestation/Addendum I have personally seen and examined the patient separately on the above date of service and discussed the plan of care with the resident. I reviewed the resident Dr. Hernandes consultation progress note and agree with the resident findings and plan in the note above and have also edited the documentation to reflect my findings and plan. Jalen Davis M.D. Interventional Cardiology
[2024-06-21] MEDS: droNABinol 2.5 MG CAPSULE 5 MG PO (10:42)
[2024-06-21] MEDS: APIXABAN 2.5 MG TABLET 5 MG PO (10:42)
[2024-06-21] MEDS: SODIUM BICARBONATE 650 MG TABLET 325 MG PO (10:43)
[2024-06-21] MEDS: SENNA TABLET 1 TAB PO (10:43)
[2024-06-21] MEDS: AMIODARONE HCL 200 MG TABLET PO (10:43)
[2024-06-21] MEDS: MICAFUNGIN SODIUM INJ 100 MG in SODIUM CHLORIDE 0.9% 100 ML IV (10:44)
[2024-06-21] MEDS: BALSAM PERU/CASTOR OIL (Venelex) 60 GM TUBE TOP (10:45)
[2024-06-21] MEDS: TIMOLOL OP SOL 0.5% 5 ML BTL 1 DROP BOTH EYES (10:45)
[2024-06-21] MEDS: POTASSIUM CHLORIDE 10% 20 MEQ/15 ML UDC 40 MEQ PO (11:04)
--- NOTE | 2024-06-21 11:27 | PC.SS ---
Addendum entered by Yolande Montes 06/21/24 11:52: SS has sent updated information (labs and last physician progress notes) to Dialysis. SS called Aileen, Charge Nurse who is aware and explained she also has access to the system. Original Note: SS spoke to Aileen, Charge Nurse at [facility] about pt being d/c to SNF and still requiring a dialysis chair time. SS was asked to call back after 12pm. Aileen explained they have communicated with Dr. August their concerns about pt not being stable for dc. SS has informed Dr. Tavares. Dialysis chair time is still pending.
[2024-06-21] MEDS: POTASSIUM CHL 10 mEq IVPB 10 MEQ/100 ML BAG 100 MEQ IV ×3 (12:15→14:44)
--- NOTE | 2024-06-21 14:34 | PC.SS ---
Addendum entered by Yolande Montes 06/21/24 14:41: SS received call from Aileen at [facility] and lizeth's chair time is Wednesday and Wednesday at 2:15. Patient's 1st session is Sunday June 23, 2024 at 1:45pm. Davida at [facility] [[email or web address]] is aware. SonRoberto is aware. PASRR has been sent through [employer] [facility] and file exchange, Davida at [facility] [[email or web address]] is aware. Original Note: SS setup gurney transportation with K at [facility] [phone] and requested [facility]. Ref# [id number]. Per K, [facility] is not guaranteed but they will attempt. SS has confirmed with Davida at [facility] they are still accepting pt. Per K at [facility] transportation est time is 3-4 hours. SS requested time of 4pm. SS has sent patient's facesheet and ambulance form to [facility] using [facility]. SS has spoken to Ana at [facility] they have been notified by [facility] and transport time is 5pm to [facility] [[email or web address] Per Herminio, bedside nurse pt is receiving IV Potassium. SS has spoken to physician residents who state they are switching Potassium to oral. [employer] is aware and she is covering bedside nurse, Herminio. [employer] is aware of transport time. Davida at [facility] [[email or web address]] is aware. Patient's sonRoberto is aware.
--- NOTE | 2024-06-21 14:58 | PC.NURSE ---
Dr. Quiñonez notified that patient not tolerating spoonful of potassium liquid, Dr. Quiñonez ok to discharge patient with only 2 bags of IV potassium.
--- NOTE | 2024-06-21 15:48 | ESDS_ITS ---
<Statement entered by Janel Tavares DO - 06/22/24 09:20> I, Janel Tavares DO, attest that I was physically present for the donnelly portions of the service and evaluated the patient with the resident and I reviewed and discussed the case with the resident and agree with the resident's findings and plans of care as documented above Planned Discharge Date 06/21/24 DS: Providers Provider Date of admission: 05/13/24 11:58 Primary care physician: Gagan Catherine Admitting Provider: Michel See MD Attending Provider on Admission: Janel Tavares DO Consults: 05/13/24 11:26 Referral Speech Therapy Routine Comment: Failed nurse swallow screen, concern for asp pna 05/13/24 16:14 Referral Physical Therapy Routine Comment: Physician Instructions: Referral Respiratory Therapy Routine Comment: 05/14/24 07:58 Consult to Gastroenterology Routine Comment: anemia, FOBT + Consulting Provider: Bulmaro Christianson 05/14/24 08:16 Consult to Neurology / Tele-Neurology Stat Comment: Consulting Provider: Berto Woodall 05/14/24 08:31 Consult to Cardiology Stat Comment: Consulting Provider: Jalen Davis 05/15/24 07:12 Consult to General Surgery Stat Comment: Consulting Provider: Emily Santana 05/15/24 07:26 Consult to Hoop Flaring Machine Operator Stat Comment: Consulting Provider: Sinan Robles 05/16/24 12:51 Consult to Nephrology Routine Comment: ATN Consulting Provider: Murphy August 05/19/24 10:34 Referral Speech Therapy Routine Comment: swalllow evalulation post extubation 05/22/24 09:33 Referral Registered Dietitian Routine Comment: 05/25/24 10:58 Consult to Infectious Diseases Urgent Comment: Consulting Provider: Lonnie Horn Instructions: MEROPENEM RESTRICTED ANTIBIOTIC 05/30/24 09:17 Referral Physical Therapy Routine Comment: Physician Instructions: 05/30/24 12:04 Referral Speech Therapy Routine Comment: 06/06/24 04:31 Referral Registered Dietitian Routine Comment: Surgical wound, two area dehiscence noted. Referral Wound Care Routine Comment: Surgical wound, two area dehiscence noted. 06/13/24 14:13 Consult to Infectious Diseases Urgent Comment: Consulting Provider: Lonnie Horn 06/17/24 18:12 Referral Speech Therapy Routine Comment: 06/17/24 19:47 Referral Wound Care Routine Comment: Skin tear to mid upper back and buttocks not POA Attending Provider on DC: Karol Rivera MD Discharging Provider: Karol Rivera MD DS: Diagnosis Problem List Completed Was Problem List Reviewed/Reconciled?: Yes Hospital Course Hospital Course Hospital course: Ms. Castellanos is a 69-year-old female with past medical history of prediabetes, CKD stage III A, hypertension, history of gastric ulcers was brought to the [facility] ED 05/13/25 after being found unconscious on the floor by family members , patient complained of abdominal pain and weakness all over her body associated with some diarrhea and shortness of breath. Patient will be admitted for sepsis secondary to pneumonia, gastric ulcer workup and altered mental status. Patient's hospitalization was complicated by perforated gastric ulcer on the second day of admission patient underwent emergent exploratory laparotomy. Postsurgery patient was unable to be extubated and was sent to ICU where patient was found to be in septic shock and was placed on pressor support. Patient then developed A-fib and was placed on amiodarone drip. Patient was successfully extubated however remained in the ICU due to continued pressor support. Over the course of her days in ICU patient developed recurrent abdominal abscesses which were positive for Edna and patient was started on broad-spectrum antibiotic coverage as well as fluconazole therapy. Multiple drains were placed to remove the abdominal abscesses. Patient also developed acute tubular necrosis leading to end-stage renal disease patient was started on hemodialysis. Her outpatient dialysis schedule is Wednesday, Wednesday, Wednesday. Patient had workup completed for stroke with no acute findings were noted, neurology was consulted. Patient also underwent videofluoroscopy with normal findings, no evidence of aspiration. Patient is hemodynamically stable and cleared for discharge to assisted facility. Patient is advised if her symptoms recur or worsen to promptly return to the ED. Discharge Recommendations Please follow-up with the primary doctor within 1 week of discharge from hospital, please follow-up with wound care and general surgery Dr. Santana within 1 week of discharge from hospital. Continue with Protonix 40mg twice daily and follow up with Gastroenterology Dr Christianson on outpatient basis. Please continue fluconazole for 8 more days for intra-abdominal yeast infection and continue antibiotic amoxicillin clavulanic acid twice daily for 3 more days. Recommend to take midodrine 5 mg 3 times daily if blood pressure is on the lower side is less than 90 systolic. Hold midodrine if blood pressure is within normal limits. In case of worsening symptoms, please turn to the emergency room. Dialysis chair time is Wednesday and Wednesday at 2:15. Patient's 1st session is Sunday June 23, 2024 at 1:45pm [facility] Dialysis Hospitalization Diagnosis #recurrent Abdominal and pelvic abscesses - Pt had acoordian drains placed on 05/25, 06/02 and both drains were removed on 06/05 -Abscess culture from 05/25 and 06/02 grew edna albicans -repeat CT on 06/12 - Abscess in the left lower abdomen is noted, measuring 4.3 cm in dimension, Much smaller pelvic abscess on this study, 24 mm not amenable to catheter placement (larger abscess was directly aspirated by IR) -Patient completed 20 days of fluconazole and is now switched to micafungin started on 06/10- -Bono PRN for pain ordered #Hospital aquired pneumonia vs. aspiration pneumonia #right pleural effusions -Pt has a productive cough, leukocytosis -Chest xray 06/15- Significant pneumonia right base, Small right pleural effusion plan: -Duonebs prn -mucolytics ordered -chest physiotherapy -continue zosyn (06/10-06/17) - videofluoroscopy for 06/20 showed no evidence of aspiration, advanced to dysphagia 3 diet #Protein Calorie malnutrition ?Patient noted to have poor appetite, is finishing less than 50% of her meals, was initially on TPN which is discontinued. 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 cerebellar hemisphere -no aspirin given at this time due to hx. 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 to work with physical therapy -will need rehab placement on discharge #Perforated gastric ulcer -resolved #Pneumoperitoneum- resolved #Peritonitis secondary to perforated gastric ulcer - s/p ex lap Patient found to have tender abdomen, rigidity in the epigastrium, chest x-ray showed elevation of hemidiaphragm, CT abdomen showed pneumoperitoneum, concern for perforated viscus, general surgeon Dr. Santana was consulted for emergency laparotomy and repair of perforated gastric ulcer on 05/[address] abd/pel on 05/20 revealed Pneumoperitoneum, orogastric tube in the stomach, mild free fluid adjacent to the stomach and anterior to the pancreas. 06/01/24: Overnight there was concern of wound dehiscence. Discussed with general surgeon per surgery superior aspect of the wound was dehiscent after removal of aixa.Surgery removal of BALAJI drain on 06/01. Repeat CT on 06/01- More pronounced fluid collection in the left abdomen below the spleen, 8.9 x 6.4cm, free fluid in the abdomen and pelvis, and Ascites -Repeat CT A/P 06/05: abscess collection in the left lower abdomen has markedly decreased in size. the accordions drains have no output this morning. Repeat CT on 06/10 shows multiple abdominal and pelvic abscesses and pneumonia left base Plan: ?Patient completed antibiotic therapy, Meropenem, discontinued per ID Recommendations -Pt completed two rounds of zosyn (05/15-05/24) and (06/10-06/17) ?Pt was on TPN 05/21-06/05 . Patient's diet is advanced to dysphagia 1 and have encouraged family members to bring home-cooked meals that patient would eat ?Continue dronabinol and mirtazapine as appetite stimulator #Acute Hypoxic Respiratory failure, likely multifactorial- improving -2/2 to pulmonary edema in the setting of volume overload 2/2 ATN due to shock leading to oligoanuria versus bibasilar pneumonia -Further complicated by bilateral lung atelectasis in the setting of recent abdominal surgery and sedatives use -Patient was intubated and on mechanical ventilation (05/15) and extubated 05/18/2024, -currently saturating 99 % on 2L NC -Ipratropium every 4 hours -Levalbuterol every 4 hours -chest physiotherapy ordered -mucolytics ordered #New onset A-fib with RVR #NSTEMI type 2 -Likely secondary to shock in the setting of abdominal surgery -EKG findings consistent with A-fib -Was on Amiodarone 200 twice daily for new onset Afib, but as she was in AFib with RVR. Plan: ?Cardiology consulted, appreciate recs -Currently on oral amiodarone 200mg and metoprolol ? Resumed eliquis 5mg BID for anticoagulation # ESRD secondary to Acute tubular necrosis -2/2 septic shock Plan: -permanent hemodialysis cath placed on 06/02/24 - Hemodialysis as per schedule of Elina Das Sat -Patient is dialysis to be arranged by social media assistant -Started on midodrine 10 mg BID as patient has difficulty tolerating dialysis, blood pressure drops. -Renally dose medications and avoid nephrotoxic agents -Nephrology following #Acute exacerbation of HFpEF- resolved # HFpEF EF 55 to 60% -echo 05/16 -estimated EF of 55 to 60%, stage I diastolic dysfunction noted, Moderate to severe posterior MAC -Continue dialysis, as per nephrology recommendations #Acute Upper GI bleed - resolved -Most likely secondary to perforated gastric ulcer -Continue iv Protonix. Pt's Hgb is stable and hemodynamically stable -Will monitor for alarm signs of active bleeding with melena or hematochezia #Acute blood loss anemia, resolved 2/2 perforated ulcer- S/P surgical repair Hgb stable 9.6 Hct 28.3 patient received 2 units of pRBC 05/18 due to acutely drop in Hgb below 7. No signs of active bleeding. Plan: -Continue to monitor daily CBC. transfuse for hemoglobin less than 7. #non- insulin dependent Diabetes Mellitus type II - A1C 6.3 % 05/21/2024 - Hold home glipizide and januvia - Plan: Continue to monitor blood sugars - Insulin sliding scale ordered with lantus 12 units #Hyperlipidemia -Unclear if patient takes any medications as a statin is not on list of home meds #essential Hypertension Holding on resuming home blood pressure medicines at this time # Acute encephalopathy-resolved -Likely multifactorial secondary to sepsis versus metabolic versus neurologic versus medication -Patient is awake and alert and follows commands. Patient is able to respond to yes or no questions verbally # Distributive shock - resolved #Hypoosmolar Hyponatremia, resolved Assessment and plan discussed with my attending physician Dr. Anusha Rivera (PGY-1)- Internal medicine resident Time Spent with Patient Time attestation: Total time spent providing and/or coordinating discharge services: >35min Exam Vital Signs Temp Pulse Resp BP Pulse Ox O2 Del Method O2 Flow Rate 97.2 F 108 H 20 153/87 H 98 Room Air 2 06/21/24 12:00 06/21/24 15:06/21/24 15:01 06/21/24 13:49 06/21/24 15:01 06/21/24 12:00 06/21/24 10:56 FiO2 4 06/20/24 11:51 Narrative Exam GENERAL: A&Ox3 . Awake and alert, Pt. is on 1L oxygen via nasal cannula NEURO: no focal neurological deficits HEENT: Atraumatic, Normocephalic. mucous membranes moist. Eyes open, symmetrical, & clear HEART: Normal Heart Sounds LUNGS: faint wheezing bilaterally and no crackles on auscultation ABDOMEN: soft, non-distended, non-tender, bowel sounds heard, no guarding or rebound tenderness, incision site is clean. SKIN: No Rash or ecchymoses EXTREMITIES: trace edema bilaterally on LE, tenderness, able to move all 4 extremities, pedal pulses palpated Discharge Plan Plan Patient Disposition: Xfer Skilled Nsg Fac (SNF) Patient condition on transfer: Stable Care Plan Goals: Please follow-up with the primary doctor within 1 week of discharge from hospital, please follow-up with wound care and general surgery Dr. Santana within 1 week of discharge from hospital. Continue with Protonix 40mg twice daily and follow up with Gastroenterology Dr Christianson on outpatient basis. Also recommend following up with neurologist Dr Woodall within 2 weeks of discharge from the hospital. Please continue fluconazole for 8 more days for intra-abdominal yeast infection and continue antibiotic amoxicillin-clavulanic acid twice daily for 3 more days. Recommend to take midodrine 5 mg 3 times daily if blood pressure is on the lower side is less than 90 systolic. Hold midodrine if blood pressure is within normal limits. In case of worsening symptoms, please turn to the emergency room. Dialysis chair time is Wednesday and Wednesday at 2:15. Patient's 1st session is Sunday June 23, 2024 at 1:45pm [facility] Dialysis Prescriptions/Referrals Prescriptions/Med Rec: New amiodarone 200 mg tablet 200 mg PO BID 30 Days Qty: 60 0RF Eliquis 5 mg tablet 5 mg PO BID 30 Days Qty: 60 0RF hydrocodone-acetaminophen 5-325 mg tablet 1 tab PO Q8H MDD 3 pills PRN (Reason: pain) Qty: 14 0RF pantoprazole [Protonix] 40 mg tablet,delayed release (DR/EC) 40 mg PO BID Qty: 60 0RF midodrine 5 mg tablet 5 mg PO TID 30 Days Qty: 90 0RF Rx Instructions: do not give last dose of day after 6PM or within 4 hrs of bedtime, HOLD if BP is > 110 systolic. insulin glargine-yfgn 100 unit/mL (3 mL) insulin pen 12 unit subcut QDAY Qty: 15 0RF (DME) pen needle, diabetic [1st Tier Unifine Pentips] 29 gauge x 1/2 needle See Rx Instructions .ROUTE Qty: 100 0RF Rx Instructions: As directed dronabinol 10 mg capsule 10 mg PO BIDAC 30 Days Qty: 60 0RF guaifenesin 100 mg/5 mL Liquid 200 mg PO QID 14 Days Qty: 560 0RF sennosides [Senna Lax] 8.6 mg Tablet 8.6 mg PO QDAY Qty: 14 0RF polyethylene glycol 3350 [HealthyLax] 17 gram Powder In Packet 17 g PO BID PRN (Reason: constipation) 30 Days Qty: 5 0RF fluconazole 200 mg tablet 200 mg PO QDAY Qty: 8 0RF sodium bicarbonate 650 mg Tablet 325 mg PO QDAY 30 Days Qty: 15 0RF pramipexole 0.25 mg tablet 0.25 mg PO QPM Qty: 30 3RF Rx Instructions: administer 2 - 3 hours before bedtime Discontinued folic acid 1 mg Tablet 1 mg PO QDAY timolol maleate 0.5 % drops 1 drp OPHTHALMIC (EYE) DAILY Patient Comments: instill 1 drop into both eyes every morning Rx Instructions: one drop in both eye QD atorvastatin 80 mg Tablet 80 mg PO QPM ergocalciferol (vitamin D2) [Vitamin D2] 1,250 mcg (50,000 unit) Capsule 1,250 mcg PO QWEEK Januvia 100 mg Tablet 100 mg PO QDAY glipizide 2.5 mg Tablet 2.5 mg PO QDAY amlodipine 10 mg tablet 10 mg PO QDAY Patient Comments: take 1 tablet by mouth once daily pantoprazole [Protonix] 40 mg tablet,delayed release (DR/EC) 40 mg PO BID Qty: 60 0RF Referrals: Gagan Catherine [Primary Care Provider] - Bulmaro Christianson MD [Physician] - Emily Santana MD [Physician] - (You will receive a phone call to confirm a follow-up appointment with me within 3 weeks) Saw Quiñonez MD [Resident] - Murphy August MD [Physician] - Patient/Caregiver Discharge Instructions Other Discharge Activity Instructions:: Change wet-dry abdominal dressing once daily Place gauze moistened with saline gently into superior and inferior aspects of wound Cover with dry gauze and secure with paper tape Change more often as needed for soiling Education Materials: Surgery Anesthesia After, Exploratory Laparotomy, Preventing Surgical Site Infections Print Language: Slovenian Stand Alone Forms: Kristi Award Info., Patient Portal Info Letter Discharge Order Discharge Orders: Discharge (Routine); Ordered 06/21/24 Ordered By: Saw Quiñonez Quality Discharge Quality Measures VTE prophylaxis
--- NOTE | 2024-06-21 19:21 | VVPN_ITS ---
Telemedicine visit statement This visit was conducted with the use of phone was obtained on 06/21/24 at 1921. Documentation for date of: 06/21/24 Subjective Subjective Interval history: Patient is in telemetry today, no changes or overnight events noted. Reportedly slept well last night, restless legs was much better on Pramipexole. Virtual exam Vital Signs Temp Pulse Resp BP Pulse Ox O2 Del Method O2 Flow Rate 97.8 F 91 20 120/90 H 94 L Room Air 2 06/21/24 16:00 06/21/24 16:00 06/21/24 16:00 06/21/24 16:00 06/21/24 16:00 06/21/24 16:00 06/21/24 10:56 FiO2 4 06/20/24 11:51 Objective Labs 06/21/24 05:35 06/21/24 05:35 Labs: Laboratory Results - last 24 hr 06/21/24 05:35 WBC 8.4 D RBC 4.11 Hgb 11.1 L Hct 34.5 L MCV 84 MCH 27.0 MCHC 32.2 RDW Std Deviation 63.1 H Plt Count 235 Neut % (Auto) 63 Lymph % (Auto) 27 [place] % (Auto) 9 Eos % (Auto) 0 Baso % (Auto) 0 Neut # (Auto) 5.2 Lymph # (Auto) 2.3 [place] # (Auto) 0.8 Eos # (Auto) 0.0 Baso # (Auto) 0.0 Immature Gran # (Auto) 0.05 H Absolute Nucleated RBC 0.09 H Immature Gran % 1 H Nucleated RBC % 1 H Sodium 137 Potassium 3.0 L D Chloride 97 L Carbon Dioxide 26.5 Anion Gap 14 BUN 40 H Creatinine 3.5 H D Estim Creat Clear Calc 12.2 L eGFR 14 L* BUN/Creatinine Ratio 11 L Glucose 98 D Calculated Osmolality 283 Calcium 9.9 Corrected Calcium 9.9 Phosphorus 5.4 H Magnesium 2.0 Total Bilirubin 1.0 AST 58 H ALT 13 Alkaline Phosphatase 152 H Total Protein 8.3 H Albumin 4.5 Globulin 3.8 H Albumin/Globulin Ratio 1.2 ABG Interpretation ABG results: 05/13/24 05/15/24 05/15/24 08:29 15:28 16:03 ABG pH 7.39 7.05 L* D 7.17 L* D ABG pCO2 31 L 63 H D 45 D ABG pO2 78 L 38 L* D 84 D ABG HCO3 19 L 18 L 16 L ABG O2 Saturation 96 59 L 96 ABG Base Excess -5 L -12 L -11 L VBG pH VBG pCO2 VBG pO2 VBG Base Excess 05/16/24 05/17/24 05/18/24 04:38 04:03 04:20 ABG pH 7.28 L D 7.38 D 7.49 H D ABG pCO2 34 D 28 L 30 L ABG pO2 96 85 66 L ABG HCO3 16 L 17 L 23 ABG O2 Saturation 98 97 94 ABG Base Excess -10 L -8 L 0 VBG pH VBG pCO2 VBG pO2 VBG Base Excess 05/19/24 05/20/24 05/21/24 09:05 06:05 22:35 ABG pH 7.30 L D 7.41 D ABG pCO2 49 H D 42 ABG pO2 63 L 63 L ABG HCO3 24 27 H ABG O2 Saturation 91 93 ABG Base Excess -3 2 VBG pH 7.31 L VBG pCO2 50 VBG pO2 39 VBG Base Excess -2 05/26/24 05/29/24 04:17 12:28 ABG pH 7.38 7.42 ABG pCO2 42 35 ABG pO2 81 L 67 L ABG HCO3 25 23 ABG O2 Saturation 97 95 ABG Base Excess 0 -2 VBG pH VBG pCO2 VBG pO2 VBG Base Excess Assessment & Plan Assessment 69-year-old female with past medical history of CKD stage III, prediabetes, hypertension who was found unconscious in her room. As well as diarrhea and shortness of breath. Admitted for sepsis secondary to pneumonia and acute metabolic encephalopathy #Acute metabolic encephalopathy- currently in telemetry, significant improvement noted, close to baseline #Generalized weakness --Brain MRI with MRA shows significant stenoses in posterior cerebral artery, no acute infarction noted -Will continue with the current management as per primary team Continue with Physical therapy as she tolerates. #RLS: will continue Pramipexole 0.25 mg at bedtime D/C Mirtazapine. Stable for dc to Rehab.
--- NOTE | 2024-06-21 20:09 | PC.NURSE ---
Family given discharge instructions and educated on follow up appointments. The numbers for Dr. Christianson, Dr. Santana, and Dr. Montanez given for faimly to set up follow up apointments. Educated family on when patient will be going to dialysis with date and time of next appt.
--- NOTE | 2024-06-21 20:14 | PD.IMPROG ---
Documentation for date of: 06/21/24 Subjective Subjective Interval history: Patient evaluated Exam Vital Signs Temp Pulse Resp BP Pulse Ox O2 Del Method O2 Flow Rate 97.7 F 102 H 19 143/86 H 97 Room Air 2 06/21/24 17:00 06/21/24 17:00 06/21/24 17:00 06/21/24 17:00 06/21/24 17:00 06/21/24 17:00 06/21/24 10:56 FiO2 4 06/20/24 11:51 Objective Labs 06/21/24 05:35 06/21/24 05:35 Labs: Laboratory Results - last 24 hr 06/21/24 05:35 WBC 8.4 D RBC 4.11 Hgb 11.1 L Hct 34.5 L MCV 84 MCH 27.0 MCHC 32.2 RDW Std Deviation 63.1 H Plt Count 235 Neut % (Auto) 63 Lymph % (Auto) 27 [place] % (Auto) 9 Eos % (Auto) 0 Baso % (Auto) 0 Neut # (Auto) 5.2 Lymph # (Auto) 2.3 [place] # (Auto) 0.8 Eos # (Auto) 0.0 Baso # (Auto) 0.0 Immature Gran # (Auto) 0.05 H Absolute Nucleated RBC 0.09 H Immature Gran % 1 H Nucleated RBC % 1 H Sodium 137 Potassium 3.0 L D Chloride 97 L Carbon Dioxide 26.5 Anion Gap 14 BUN 40 H Creatinine 3.5 H D Estim Creat Clear Calc 12.2 L eGFR 14 L* BUN/Creatinine Ratio 11 L Glucose 98 D Calculated Osmolality 283 Calcium 9.9 Corrected Calcium 9.9 Phosphorus 5.4 H Magnesium 2.0 Total Bilirubin 1.0 AST 58 H ALT 13 Alkaline Phosphatase 152 H Total Protein 8.3 H Albumin 4.5 Globulin 3.8 H Albumin/Globulin Ratio 1.2 Impressions Impression: # Failure to thrive poor p.o. intake # Intra-abdominal fluid collections requiring IR drainage # End-stage renal disease on hemodialysis Continue current management ABG Interpretation ABG results: 05/13/24 05/15/24 05/15/24 08:29 15:28 16:03 ABG pH 7.39 7.05 L* D 7.17 L* D ABG pCO2 31 L 63 H D 45 D ABG pO2 78 L 38 L* D 84 D ABG HCO3 19 L 18 L 16 L ABG O2 Saturation 96 59 L 96 ABG Base Excess -5 L -12 L -11 L VBG pH VBG pCO2 VBG pO2 VBG Base Excess 05/16/24 05/17/24 05/18/24 04:38 04:03 04:20 ABG pH 7.28 L D 7.38 D 7.49 H D ABG pCO2 34 D 28 L 30 L ABG pO2 96 85 66 L ABG HCO3 16 L 17 L 23 ABG O2 Saturation 98 97 94 ABG Base Excess -10 L -8 L 0 VBG pH VBG pCO2 VBG pO2 VBG Base Excess 05/19/24 05/20/24 05/21/24 09:05 06:05 22:35 ABG pH 7.30 L D 7.41 D ABG pCO2 49 H D 42 ABG pO2 63 L 63 L ABG HCO3 24 27 H ABG O2 Saturation 91 93 ABG Base Excess -3 2 VBG pH 7.31 L VBG pCO2 50 VBG pO2 39 VBG Base Excess -2 05/26/24 05/29/24 04:17 12:28 ABG pH 7.38 7.42 ABG pCO2 42 35 ABG pO2 81 L 67 L ABG HCO3 25 23 ABG O2 Saturation 97 95 ABG Base Excess 0 -2 VBG pH VBG pCO2 VBG pO2 VBG Base Excess Assessment & Plan A&P Narrative Ms. Castellanos is a 69-year-old female with past medical history significant for hypertension, diabetes and history of gastric ulcers who presented to the ED on 05/13/2024 after she was found unconscious on the floor. Per chart reviewing prior to this unconsciousness patient was having abdominal pain and generalized weakness with diarrhea and shortness of breath for 2 days. Patient was admitted to the hospital for treatment and management of sepsis secondary to pneumonia. Patient was given 1 L normal saline and started on ceftriaxone and azithromycin. patient underwent ex lap surgery for perforated gastric ulcer. Patient remained intubated postop and was upgraded to the ICU. Patient continues to be on dialysis after downgrade, has BALAJI and accordion drain intact, completed bowel rest, was started on dysphagia 1 diet, surgery following case closely, will continue to monitor. Patient continue with dialysis, white count coming down, may want to reconsider adjusting antibiotics. Follow-up with ID recommendations. #New onset A-fib with RVR, improving, rate controlled New onset of Afib, likely related to septic shock requiring pressor support and increased demand from perforated ulcer complicated by abdominal abscesses Pt appears to still be in A-fib, rate controlled, 90s to mid 100s Previous EKG shows a-fib w/RVR CHADVASC: 5 Pts 7.2 % stroke risk per year HAS-BLED score: 3, high risk of major bleeding Patient continues to be rate controlled, rate in the 90s Plan: ?Continue with Oral Amio 200 mg BID ?Continue with Eliquis 5 mg twice daily 06/17/2024: Patient did have an rapid response today during dialysis with hypotension dialysis was held. Nephrology team following and will plan the next session of dialysis. Patient apparently did not receive her metoprolol today and amiodarone. Recommend to continue with amiodarone for now and hold off on the metoprolol. Telemetry reviewed and heart rate is optimally controlled with 101-120 bpm. Patient has significant wheezing during the examination and also patient is active infection for which she is on antibiotics as well as antifungals since the surgery which is contributing to the A-fib with RVR. Primary team planning to discharge the patient when stable and awaiting SNF placement. #Acute exacerbation of HFpEF #HFpEF EF 55 to 60% #History of primary hypertension -Echo 05/16/2024 -estimated EF of 55 to 60%, stage I diastolic dysfunction noted, Moderate to severe posterior MAC Pt has new onset of ESRD requiring HD, requiring midodrine 10 mg QID to tolerate HD Not resuming home amlodipine at this time due to patient being A-fib and blood pressure eventually be controlled with beta-christian We recommend to give midodrine 5 to 10 mg 15 to 30 minutes before dialysis, can give additional 2.5 to 5 mg after dialysis as long as 3 hours after predialysis dose Half-life of midodrine is 9 to 10 hours and patient with CKD something to keep in mind Patient to continue with dialysis as electrolytes are abnormal including phosphorus. Plan: ?Resume GDMT as able, metoprolol on board right now, as above ?Fluid restriction ?Daily weights ?Strict ins and outs ?Keep potassium and magnesium above 4 and 2 respectively #Hx of Diabetes Mellitus type II Most recent A1c 05/21/2024: 6.2 Plan: Management by primary team #Perforated gastric ulcer #Pneumoperitoneum #Peritonitis secondary to perforated gastric ulcer #Abdominal Abscess, s/p percutaneous drainage x3 Patient found to have tender abdomen, rigidity in the epigastrium, chest x-ray showed elevation of hemidiaphragm, CT abdomen showed pneumoperitoneum, concern for perforated viscus, general surgeon Dr. Santana was consulted for emergency laparotomy and possible repair of perforated gastric ulcer. Repeat CT abd/pel on 05/20 revealed Pneumoperitoneum, orogastric tube in the stomach, mild free fluid adjacent to the stomach and anterior to the pancreas. s/p Exploratory laparotomy & repair of perforated gastric ulcer - 05/15. 06/01/24: Overnight there was concern of wound dehiscence. Discussed with general surgeon per surgery superior aspect of the wound was dehiscent after removal of aixa.Surgery removal of BALAJI drain on 06/01. Repeat CT on 06/01- More pronounced fluid collection in the left abdomen below the spleen, 8.9 x 6.4cm, free fluid in the abdomen and pelvis, and Ascites -Abscess culture from 05/25 grew edna albicans ?Repeat CT abdomen pelvis shows abscess collection lower left abdomen has markedly decreased in size and the accordion drains have no output this morning Plan: Management by primary hospitalist team #Acute blood loss anemia, stable Likely related to perforated ulcer Hgb stable ~7.7 Plan: Management by primary hospitalist team #Acute tubular necrosis, requiring hemodialysis #Acute Hypoxic Respiratory failure #Acute Upper GI bleed - stable #Hyperlipidemia #Acute blood loss anemia, stable #Acute encephalopathy-resolved #Septic Shock - resolved #Hypoosmolar Hyponatremia, resolved Management of rest of the medical conditions as per primary team and other consultants. Thank you for the consult and allowing me to participate in the care of the patient. Cardiology will continue to follow. Jalen Davis M.D. Interventional Cardiology Time Spent With Patient Time: Total time spent is greater than 50% in coordination of care (as documented) at patient's floor/unit and/or counseling patient:
== END 2024-06-21 17:11 | disposition skilled nursing facility (03) | DRG 853 ==
LOC: SERX 10:16 → SERHOLD 12:36 → S3NX 05-15 07:04 → S2SX 05-17 07:09 → S3NX 05-18 08:10 → S2SX 05-18 08:10 → S2NX 05-19 16:05 → S2SX 05-20 06:26 → S2NX 05-29 12:12 → S2SX 05-29 12:12
PROVIDERS: Emergency Medicine; Internal Medicine; Internal Medicine Cardiovascular Disease; Internal Medicine Critical Care Medicine; Internal Medicine Infectious Disease; Psychiatry & Neurology Neurology; Radiology Diagnostic Radiology; Student in an Organized Health Care Education/Training Program; Surgery; Admitting Provider Internal Medicine; Emergency Provider Emergency Medicine; PCP Internal Medicine; Visit Provider Internal Medicine
PROC: 0DQ60ZZ Repair Stomach, Open Approach (ICD-10-PCS; CPT 49000; principal; 2024-05-15 08:00)
DX: A41.9 Sepsis, unspecified organism (principal); G92.8 Other toxic encephalopathy; J18.9 Pneumonia, unspecified organism; J96.01 Acute respiratory failure with hypoxia; I50.33 Acute on chronic diastolic (congestive) heart failure; I21.A1 Myocardial infarction type 2; N18.6 End stage renal disease; R65.21 Severe sepsis with septic shock; K25.6 Chronic or unspecified gastric ulcer with both hemorrhage and perforation; N17.0 Acute kidney failure with tubular necrosis; K65.1 Peritoneal abscess; I48.19 Other persistent atrial fibrillation; I13.2 Hypertensive heart and chronic kidney disease with heart failure and with stage 5 chronic kidney disease, or end stage renal disease; E46 Unspecified protein-calorie malnutrition; D62 Acute posthemorrhagic anemia; R18.8 Other ascites; J98.11 Atelectasis; I95.9 Hypotension, unspecified; I71.20 Thoracic aortic aneurysm, without rupture, unspecified; I27.21 Secondary pulmonary arterial hypertension; M48.061 Spinal stenosis, lumbar region without neurogenic claudication; I08.0 Rheumatic disorders of both mitral and aortic valves; I66.29 Occlusion and stenosis of unspecified posterior cerebral artery; E78.5 Hyperlipidemia, unspecified; I71.21 Aneurysm of the ascending aorta, without rupture; N73.9 Female pelvic inflammatory disease, unspecified; E11.22 Type 2 diabetes mellitus with diabetic chronic kidney disease; E11.649 Type 2 diabetes mellitus with hypoglycemia without coma; E87.5 Hyperkalemia
CPT/HCPCS: 36415; 36600; 70450; 70486; 70544; 71045; 71275; 72125; 72128; 72131; 74018; 74150; 74174; 74176; 74177; 74230; 75989; 76937; 77001; 80048; 80053; 80061; 80069; 80074; 80162; 80202; 81001; 82140; 82150; 82270; 82570; 82607; 82746; 82803; 83036; 83540; 83550; 83605; 83690; 83735; 83880; 84100; 84145; 84295; 84300; 84439; 84443; 84484; 85014; 85018; 85025; 85379; 85610; 85730; 86580; 86703; 86706; 86780; 86850; 86900; 86901; 86923; 87040; 87070; 87075; 87081; 87086; 87102; 87106; 87116; 87205; 87206; 87400; 87634; 87811; 92526; 92610; 93005; 93225; 93306; 94002; 94003; 94640; 94644; 94664; 94667; 96361; 96365; 96375; 97161; 99285; A4216; A4217; A4649; A9270; B4185; C1729; C1750; C1751; C1769; C1894; J0131; J0283; J0456; J0692; J0696; J1200; J1450; J1642; J1643; J1644; J1815; J1940; J2060; J2185; J2247; J2371; J2405; J2470; J2543; J2598; J2704; J2919; J2997; J3010; J3370; J3411; J3475; J3480; J3490; J7030; J7040; J7050; J7120; J7131; P9016; P9047; Q0167; Q5105; Q5106; Q9967; Q9968; C1725; J1836

== ENCOUNTER 2024-06-24 19:09 | Observation (INO) | payer MEDICARE, MEDICAID, SELFPAY ==
[2024-06-24 19:14] VITALS: BP 135/56; PULSE 98; RESP 19; TEMP 36.4; O2SAT 96
[2024-06-24 19:25] VITALS: PULSE 98
--- NOTE | 2024-06-24 19:25 | XR_ITS ---
Examination: AP chest single view Technique one AP portable semiupright chest single view Exam date and time: June 24, 2019 0529 hrs. Comparison June 15, 2024 Indications: Shortness of breath today. Findings: Mild CHF Moderate enlargement cardiac contour Prominent vascular congestion with perihilar basilar edema Prominent osteopenia Satisfactory position left internal jugular dialysis catheter Impression: Mild CHF
--- NOTE | 2024-06-24 19:25 | EKG_ITS ---
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: : [id number] Requested By: Arabella Urban Order Number: [id number] Reading MD: Arabella Urban Measurements Intervals [place] Rate: 111 P: [place]: QRS: -38 QRSD: 96 T: 130 QT: 364 QTc: 495 Interpretive Statements ATRIAL FIBRILLATION WITH RAPID VENTRICULAR RESPONSE MARKED LEFT AXIS DEVIATION [QRS AXIS < -30] PATTERN CONSISTENT WITH PULMONARY DISEASE ST DEVIATION AND MODERATE T-WAVE ABNORMALITY, CONSIDER LATERAL ISCHEMIA [-0.1+ mV T WAVE IN I/aVL/V5/V6] Compared to ECG 05/21/2024 22:27:27 Sinus rhythm no longer present T-wave abnormality still present Possible ischemia still present /store/S0/[id number]/[id number]
--- NOTE | 2024-06-24 19:52 | EDNOTE_ITS ---
Altered Mental Status RME/HPI General Chief Complaint: Altered Mental Status Stated Complaint: AMS Time Seen by Provider: 06/24/24 19:25 Source: EMS Arrival date/time: 06/24/24 19:09 Mode of arrival: EMS RME / HPI RME / HPI narrative: DR. FERNANDEZ MAIN ED EVALUATION: 69-year-old female with a past medical history of chronic kidney disease (CKD) stage III, prediabetes, and hypertension, presents to the Emergency Department from [facility] with complaints of headache, neck pain, back pain, and abdominal pain following a fall from her bed. According to her daughter, the patient was being assisted back into bed by nursing staff when she arrived at the bedside. The daughter did not witness the fall itself. Related Data Home Medications ?Medication ?Instructions ?Recorded ?Confirmed bisacodyl 10 mg rectal suppository 10 mg PA QDAY PRN Constipation 06/25/2406/25 (Dulcolax (bisacodyl)) mirtazapine 15 mg tablet 15 mg PO HS 06/25/24 06/25/24 sodium bicarbonate 650 mg tablet 650 mg PO QDAY 06/25/24 06/25/24 sodium phosphates 19 gram-7 118 ml PA QDAY 06/25/24 06/25/24 gram/118 mL enema (Fleet Enema) Previous Rx's ?Medication ?Instructions ?Recorded amiodarone 200 mg tablet 200 mg PO BID 30 days #60 tabs 06/08/24 apixaban 5 mg tablet (Eliquis) 5 mg PO BID 30 days #60 tabs 06/08/24 insulin glargine-yfgn 100 unit/mL 12 unit (0.12 mL) subcut QDAY #15 06/08/24 (3 mL) subcutaneous pen mL midodrine 5 mg tablet 5 mg PO TID 30 days #90 tabs 06/08/24 pantoprazole 40 mg tablet,delayed 40 mg PO BID #60 tabs 06/08/24 release (Protonix) pen needle, diabetic 29 gauge x #100 ea 06/08/2406/01 (1st Tier Unifine Pentips) dronabinol 10 mg capsule 10 mg PO BIDAC 30 days #60 caps 06/16/24 guaifenesin 100 mg/5 mL oral liquid 200 mg (10 mL) PO QID 14 days #560 06/16/24 mL fluconazole 200 mg tablet 200 mg PO QDAY #8 tabs 06/17/24 polyethylene glycol 3350 17 gram 17 g PO BID PRN constipation 30 06/17/24 oral powder packet (HealthyLax) days #5 ea sennosides 8.6 mg tablet (Senna 8.6 mg PO QDAY #14 tabs 06/17/24 Lax) Allergies Allergy/AdvReac Type Severity Reaction Status Date / Time No Known Allergies Allergy Verified 05/28/24 22:16 Review of Systems Review of Systems Systems Reviewed: All systems reviewed, normal except as documented Past Medical History Past Medical History NEUROLOGIC: Negative Seizures CARDIAC: Positive Cardiac Disorders, Hypercholesterolemia and Hypertension; Negative Congestive Heart Failure RESPIRATORY: Negative Chronic Obstructive Pulmonary Disease (COPD) or Asthma GASTROINTESTINAL: Positive Ulcer GENITOURINARY: Positive Genitourinary Disorders, Renal Disease and Dialysis MUSCULOSKELETAL: Positive Musculoskeletal Disorders ENDOCRINE: Positive Endocrine Disorders and Diabetes Mellitus Type 2; Negative Diabetes Mellitus Type 1 HEMATOLOGIC: Negative Sickle Cell Disease OTHER HISTORY: Negative Blood Transfusions, Blood Transfusion Reaction, Anesthesia Reactions or Cancer Surgical History SURGICAL: Positive Abdominal Surgery Social History SMOKING STATUS: Unknown if ever smoked SUBSTANCE USE: does not use ALCOHOL: Never ED Exam Narrative Physical exam: GENERAL APPEARANCE: slight grimace VITALS: All vitals were reviewed. HEENT: Normocephalic, atraumatic; pupils equal, round, reactive to light; EOMI; mucous membranes pink, moist; oropharynx clear NECK: Supple LUNGS: CTABL; no wheezes, no rales, no rhonchi HEART: Regular rate, regular rhythm; normal S1, S2; no murmurs ABDOMEN: non distended; normal BS; soft, no tenderness, no guarding, no rebound; no masses, no organomegaly, no hernia BACK: no CVA tenderness EXTREMITIES: atraumatic; no edema NEUROLOGIC: awake; cranial nerves II-XII grossly intact; no focal sensory or motor deficits PSYCHIATRIC: appropriate mood and affect SKIN: warm, dry, normal color; no rashes Course Course Course Narrative: CXR is ordered for determining etiology of chest discomfort. The athletic monitor revealed aFib as interpreted by me. The athletic monitor was ordered to monitor for dysrhythmia. Heart rate 98 bpm. Quality Measures none Orders Category Date Time Status Linderman Operator NOW Care 06/24/24 19:25 Active EKG (ED ONLY) *Do not use* NOW Care 06/24/24 19:25 Completed In and Out Catheter X1 Care 06/25/24 02:[address] cervical spine wo con Stat Exams 06/24/24 20:[address] chest abdomen pelvis wo Stat Exams 06/24/24 20:[address] head/brain wo con Stat Exams 06/24/24 20:19 Completed EKG (ED Only) Stat Exams 06/24/24 19:25 Draft XR chest 1V portable Stat Exams 06/24/24 19:25 Completed B-Type Natriuretic Peptide Stat Lab 06/24/24 21:32 Completed Blood Culture (Lab) Stat Lab 06/24/24 21:32 Received CBC Stat Lab 06/24/24 21:32 Completed Comprehensive Metabolic Panel Stat Lab 06/24/24 21:32 Completed Lactate (Lactic Acid) Stat Lab 06/24/24 21:32 Completed Lactic Acid, 3 HR Stat Lab 06/25/24 00:54 Completed Lipase Stat Lab 06/24/24 21:32 Completed Magnesium Stat Lab 06/24/24 21:32 Completed Partial Thromboplastin Time Stat Lab 06/24/24 21:32 Completed Procalcitonin Stat Lab 06/24/24 21:32 Completed Prothrombin Time with INR Stat Lab 06/24/24 21:32 Completed Troponin I Stat Lab 06/24/24 21:32 Completed Urinalysis Stat Lab 06/25/24 01:35 Completed Urine Culture Stat Lab 06/25/24 01:35 Received Vital Signs Vital signs: Vital Signs Temperature 97.6 F 06/24/24 19:14 Pulse Rate 98 06/24/24 19:14 Respiratory Rate 19 06/24/24 19:14 Blood Pressure 135/56 H 06/24/24 19:14 Pulse Oximetry (%) 96 06/24/24 19:14 Oxygen Delivery Method Room Air 06/24/24 19:14 Procedures -ED Procedure Comment EKG manual reading, my interpretation 06/24/241936: aFib with RVR, rate: 111 bpm, left axis deviation, no ST elevation, no acute ischemic changes, interpreted as aFib with RVR Altered Mental Status MDM Narrative MDM Narrative:: I, Tabatha Guardado, am scribing for and in the presence of Dr. Fernandez. Patient data External records reviewed:: [facility] previous records (Reviewed neurology note by Dr. Woodall, dated 06/21/24.) Clinical information provided by:: patient and EMS Social determinants that could affect healthcare access:: housing ([facility]) Patient has the following chronic illnesses:: CKD stage III, prediabetes, hypertension How is presenting disease/condition affected by chronic disease/condition?: exacerbated by Evaluation data The following diagnostics were reviewed and interpreted by me:: lab results, radiology exam(s) and EKG tracing(s) (atrial fibrillation, rate 111, left axis deviation) Lab and/or radiology exams considered but not ordered:: none Interpretation Summary: Examination: CT cervical spine without contrast 2-D sagittal reconstructions 2-D coronal reconstructions 3-D reconstructions. Exam date and time:June 24, 20242053 hrs. Indications: Patient fell today with into the neck, neck pain Findings: Axial sections demonstrate intact base of the skull. C1 exhibit satisfactory relationship to the odontoid. No acute cervical vertebral body fracture seen. Alignment posterior spinous processes satisfactory. Partial visualization bilateral pleural fluid Impression: No acute cervical fracture. Dictated By: Ronald Bond MD Examination: AP chest single view Technique one AP portable semiupright chest single view Exam date and time: June 24, 2019 0529 hrs. Comparison June 15, 2024 Indications: Shortness of breath today. Findings: Mild CHF Moderate enlargement cardiac contour Prominent vascular congestion with perihilar basilar edema Prominent osteopenia Satisfactory position left internal jugular dialysis catheter Impression: Mild CHF Dictated By: Ronald Bond MD Examination: CT brain head without contrast. 2-D sagittal coronal reconstructions Date and time of exam:June 24, 20242053 hrs. Indications: Patient fell today with injury to the head, head pain Findings: No significant ventricular enlargement. 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 Bilateral foreign bodies extending from the medial leonardo of the orbits to the nasal airways, perhaps drains No mass effect or midline shift Basal cisterns are not remarkable. Fourth ventricle is midline. Cranial vault intact. Impression: Negative for acute hemorrhage, mass effect or midline shift Advise clinical correlation follow-up accordingly Dictated By: Ronald Bond MD Examination: CT chest, without intravenous contrast. CT abdomen, without intravenous contrast. CT pelvis, without intravenous contrast. 2-D sagittal and coronal reconstructions. 3-D reconstructions. Date and time of exam:June 24, 20242056 hrs. Indications: Patient fell today with injury to the chest and abdomen, chest pain abdomen pain Comparison: CT abdomen pelvis June 12, 2024 Findings: Mild aneurysmal dilatation ascending thoracic aorta AP dimension 4.3 cm Thoracic aorta pulmonary arteries appear intact, no hemopericardium Significant calcification left main left anterior descending left circumflex right coronary arteries Microvascular calcification No hemopericardium Mild heart failure, moderate cardiomegaly with prominent vascular congestion and subtle edema in the lung art with small to moderate right pleural effusion No pneumothorax The manubrium the body the sternum intact as well as thoracic vertebral bodies Ribs appear intact No liver splenic or renal laceration, 4.3 cm left renal cyst Increased density in the gallbladder No pancreatic mass Small cystic mass posterior to the stomach again noted, 23 mm Small abscess in the left lower abdomen noted 42 x 16 mm Abdominal aorta intact Postsurgical changes anterior abdominal wall Atrophic uterus Urinary bladder intact No lumbar or sacral fracture Advanced degenerative disc disease L3-L4 Hips appear intact Impression: Mild aneurysmal dilatation ascending thoracic aorta Thoracic aorta pulmonary arteries intact Mild heart failure No pneumothorax No abdominal parenchymal laceration Abdominal aorta intact Dictated By: Ronald Bond MD Medications / Prescriptions Medications or Prescriptions considered but not ordered:: none Medication administrations:: Medication Administration History Acetaminophen (Acetaminophen 325 Mg Tablet) 650 mg PO Q6H PRN PRN Reason: Fever >101.5 Stop: 07/25/24 03:24 Amiodarone HCl (Amiodarone Hcl 200 Mg Tablet) 200 mg PO BID [facility] Stop: 07/25/24 08:59 Last Admin: 06/25/24 10:03 Dose: 200 mg Documented By: SWAPNA Apixaban (Apixaban 2.5 Mg Tablet) 5 mg PO BID [facility] Stop: 07/25/24 08:59 Last Admin: 06/25/24 10:05 Dose: 5 mg Documented By: SWAPNA Dextrose (Dextrose 50%-Water Inj 50 Ml Syringe) 25 ml IV Q15MIN PRN PRN Reason: BG 50-70 responsive npo pt Stop: 07/25/24 03:28 Dextrose (Dextrose 50%-Water Inj 50 Ml Syringe) 50 ml IV Q15MIN PRN PRN Reason: BG <50 OR BG <70 & pt unresponsive Stop: 07/25/24 03:28 Dronabinol (Dronabinol 2.5 Mg Capsule) 10 mg PO BIDAC [facility] Stop: 07/25/24 07:29 Last Admin: 06/25/24 10:01 Dose: Not Given Documented By: SWAPNA Non-Admin Reason: Patient Refused Fluconazole (Fluconazole 100 Mg Tablet) 200 mg PO QDAY [facility] Stop: 07/02/24 08:59 Last Admin: 06/25/24 12:11 Dose: 200 mg Documented By: AA Glucagon (Glucagon Inj 1 Mg Vial) 1 mg IM Q15MIN PRN PRN Reason: BG <70, and no IV access Guaifenesin (Guaifenesin Syrup 200 Mg/10 Ml Udc) 200 mg PO QID [facility]; Protocol Stop: 07/25/24 05:59 Last Admin: 06/25/24 06:40 Dose: 200 mg Documented By: CCT Insulin Glargine (Insulin Glargine (Lantus) 5 Unit/0.05 Ml (Per 5 Units)) 12 unit SC QDAY [facility] Stop: 07/25/24 08:59 Last Admin: 06/25/24 09:58 Dose: Not Given Documented By: AA Non-Admin Reason: Cancelled by Provider Insulin Human Lispro (Insulin Lispro (Admelog) 1 Unit/0.01 Ml Unit) 0 unit SC ACHS [facility]; Protocol Stop: 07/25/24 07:29 Last Admin: 06/25/24 12:30 Dose: Not Given Documented By: AA Non-Admin Reason: Per Protocol Admin: 06/25/24 07:44 Dose: Not Given Documented By: AA Non-Admin Reason: Per Protocol Magnesium Hydroxide (Milk Of Magnesia Susp 30 Ml Udc) 30 ml PO QDAY PRN; Protocol PRN Reason: CONSTIPATION Stop: 07/25/24 03:24 Midodrine (Midodrine 5 Mg Tablet) 5 mg PO TID [facility] Stop: 07/25/24 05:59 Last Admin: 06/25/24 06:22 Dose: Not Given Documented By: CCT Non-Admin Reason: Per Protocol Mirtazapine (Mirtazapine 15 Mg Tablet) 15 mg PO [facility] Stop: 07/25/24 20:59 Home Medication- Please Speak With Patient Caregiver To Have Rx Brought To [facility] 118 ml PA QDAY [facility] Stop: 07/25/24 08:59 Last Admin: 06/25/24 12:17 Dose: Not Given Documented By: AA Non-Admin Reason: Patient Refused Ondansetron HCl (Ondansetron Inj 2 Mg/Ml Inj 2 Ml) 4 mg IV Q6H PRN; Protocol PRN Reason: NAUSEA OR VOMITING Stop: 07/25/24 03:24 Polyethylene Glycol (Polyethylene Glycol 17 Gm Packet) 17 gm PO BID PRN; Protocol PRN Reason: constipation Stop: 02/25/25 05:50 Sodium Bicarbonate (Sodium Bicarbonate 650 Mg Tablet) 650 mg PO QDAY [facility] Stop: 07/25/24 08:59 Last Admin: 06/25/24 12:18 Dose: Not Given Documented By: SWAPNA Non-Admin Reason: Medication Not Available Discontinued Medications Amiodarone HCl (Amiodarone Hcl 200 Mg Tablet) 200 mg PO BID [facility] Stop: 07/25/24 08:59 Apixaban (Apixaban 2.5 Mg Tablet) 5 mg PO BID [facility] Stop: 07/25/24 08:59 Carvedilol (Carvedilol 3.125 Mg Tablet) 6.25 mg PO X1 ONE Stop: 06/25/24 03:32 Last Admin: 06/25/24 03:49 Dose: 6.25 mg Documented By: CCT see above if any Consultations Consultation(s) initiated? (list below): Yes Consultation #1 (Physician, Specialty, Details): Hospitalist made aware of the patient?s HPI, PMHx, lab and/or radiology results. Treatment plan was discussed. Accepts patient for admission. Diagnosis Differential diagnosis altered mental status: dementia, subarachnoid hemorrhage and sepsis Most likely diagnosis given after review of the tests above:: Inta-abdominal abscess Fall Headache Neck pain Admission Indicated Admission indicated?: indicated Admission Request Was there a request for admission?: Yes Admission Attestation Admission request attestation: Discussed case with [] from Hospitalist service regarding admission. Discussed patients ED course, exam findings, labs, and radiology results. The Hospitalist [agrees,declines] to accept the patient for admission. Disposition Plan Disposition Plan: Admit Critical Care Time Critical Care Time Critical Care Time: Yes Total Critical Care Time (min.): 35 Attestation: The high probability of sudden, clinically significant deterioration in the patient?s condition required the highest level of my preparedness to intervene urgently. ? The services I provided to this patient were to treat and/or prevent clinically significant deterioration. Services included the following: chart data review, reviewing nursing notes and/or old charts, documentation time, credit consultant collaboration regarding findings and treatment options, medication orders and management, direct patient care, vital sign assessments and ordering, interpreting and reviewing diagnostic studies and lab tests. ? Aggregate critical care time includes only time during which I was engaged in work directly related to the patient?s care, as described above, whether at bedside or elsewhere in the Emergency Department. It did not include time spent performing other reported procedures or the services of residents, students, nurses or physician assistants. Discharge Plan Plan Patient Disposition: Admit Acute Care w/in Hospital Disposition Comment: Dr. Singleton, observation Problem List Clinical Impression: Intra-abdominal abscess, Fall, Headache, Neck pain
[2024-06-24 19:58] VITALS: TEMP 37.4
--- NOTE | 2024-06-24 20:19 | XR_ITS ---
Examination: CT chest, without intravenous contrast. CT abdomen, without intravenous contrast. CT pelvis, without intravenous contrast. 2-D sagittal and coronal reconstructions. 3-D reconstructions. Date and time of exam:June 24, 2024 2057 hrs. Indications: Patient fell today with injury to the chest and abdomen, chest pain abdomen pain Comparison: CT abdomen pelvis June 12, 2024 CTDI vol (mgy) 14.3 DLP (MGycm)951 Technique: Multiple CT images, 3.0 mm slice thickness, obtained chest, abdomen, pelvis, with the high-resolution 64 slice scanner.. Sagittal and coronal 2-D reconstructions are obtained. 3-D reconstructions Low dose protocols were performed. One or more of the following dose reduction techniques were used; automated exposure control, adjustment of the mA and/or KV according to patient size, use of iterative reconstruction technique. Findings: Mild aneurysmal dilatation ascending thoracic aorta AP dimension 4.3 cm Thoracic aorta pulmonary arteries appear intact, no hemopericardium Significant calcification left main left anterior descending left circumflex right coronary arteries Microvascular calcification No hemopericardium Mild heart failure, moderate cardiomegaly with prominent vascular congestion and subtle edema in the lung art with small to moderate right pleural effusion No pneumothorax The manubrium the body the sternum intact as well as thoracic vertebral bodies Ribs appear intact No liver splenic or renal laceration, 4.3 cm left renal cyst Increased density in the gallbladder No pancreatic mass Small cystic mass posterior to the stomach again noted, 23 mm Small abscess in the left lower abdomen noted 42 x 16 mm Abdominal aorta intact Postsurgical changes anterior abdominal wall Atrophic uterus Urinary bladder intact No lumbar or sacral fracture Advanced degenerative disc disease L3-L4 Hips appear intact Impression: Mild aneurysmal dilatation ascending thoracic aorta Thoracic aorta pulmonary arteries intact Mild heart failure No pneumothorax No abdominal parenchymal laceration Abdominal aorta intact
--- NOTE | 2024-06-24 20:19 | XR_ITS ---
Examination: CT brain head without contrast. 2-D sagittal coronal reconstructions Date and time of exam:June 24, 20242053 hrs. Indications: Patient fell today with injury to the head, head pain CTDI: vol (mGy):48.8 DLP: (mGycm):917 Technique: Multiple CT axial sections of the brain have been obtained, 5 mm slice thickness. Contrast has not been administered. 2-D sagittal, coronal reconstructions have been obtained Low dose protocols were performed. One or more of the following dose reduction techniques were used; automated exposure control, adjustment of the mA and/or KV according to patient size, use of iterative reconstruction technique. Findings: No significant ventricular enlargement. 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 Bilateral foreign bodies extending from the medial leonardo of the orbits to the nasal airways, perhaps drains No mass effect or midline shift Basal cisterns are not remarkable. Fourth ventricle is midline. Cranial vault intact. Impression: Negative for acute hemorrhage, mass effect or midline shift Advise clinical correlation follow-up accordingly
--- NOTE | 2024-06-24 20:30 | XR_ITS ---
Examination: CT cervical spine without contrast 2-D sagittal reconstructions 2-D coronal reconstructions 3-D reconstructions. Exam date and time:June 24, 20242053 hrs. Indications: Patient fell today with into the neck, neck pain CTDI:vol (mGy) 8.83 DLP: (mGycm) 178 Technique: Multiple 2 mm axial sections of the cervical spine have been obtained. The coronal and sagittal reconstructions have been obtained. 3-D reconstructions have been obtained. Low dose protocols were performed. One or more of the following dose reduction techniques were used; automated exposure control, adjustment of the mA and/or KV according to patient size, use of iterative reconstruction technique. Findings: Axial sections demonstrate intact base of the skull. C1 exhibit satisfactory relationship to the odontoid. No acute cervical vertebral body fracture seen. Alignment posterior spinous processes satisfactory. Partial visualization bilateral pleural fluid Impression: No acute cervical fracture.
--- NOTE | 2024-06-24 20:49 | PC.NURSE ---
Pt taken to CT via sandeep
[2024-06-24 21:15] VITALS: PULSE 115
[2024-06-24 21:46] LABS: Lactate (Lactic Acid) 2.2 mMol/L (0.4-2.0)
[2024-06-24 21:53] LABS: Basophils # (Auto) 0.1 Thou/mm3 (0.0-0.2); Basophils % (Auto) 1 % (0-2.5); Eosinophils # (Auto) 0.1 Thou/mm3 (0.0-0.5); Eosinophils % (Auto) 1 % (0-10); Hematocrit 38.6 % (36.0-46.0); Hemoglobin 12.1 g/dL (12.0-16.0); Immature Granulocytes % (Auto) 0 % (0-0); Immature Granulocytes Auto 0.02 Thou/mm3 (0.00-0.00); Lymphocytes # (Auto) 3.2 Thou/mm3 (1.0-4.8); Lymphocytes % (Auto) 41 % (10-50); Mean Corpuscular HGB Conc 31.3 g/dl (31.0-37.0); Mean Corpuscular Hemoglobin 27.2 pg (25.0-35.0); Mean Corpuscular Volume 87 fL (80-100); Monocytes % (Auto) 12 % (0-12); Neutrophils # (Auto) 3.6 Thou/mm3 (1.8-7.7); Neutrophils % (Auto) 46 % (37-80); Nucleated Red Blood Cell # 0.02 Thou/mm3 (0.00-0.00); Nucleated Red Blood Cell % 0 /100 WBC (0); Platelet Count 240 Thou/mm3 (140-440); RDW Standard Deviation 70.1 fL (36.4-46.3); Red Blood Count 4.45 Miln/mm3 (4.00-5.20); White Blood Count 7.9 Thou/mm3 (3.6-11.0)
[2024-06-24 22:08] LABS: INR 1.3 (0.9-1.3); Partial Thromboplastin Time 28.5 Seconds (22.0-36.0); Prothrombin Time 13.6 Seconds (9.0-12.2)
[2024-06-24 22:19] LABS: Alanine Aminotransferase < 7 U/L (10-49); Albumin, Serum 3.9 gm/dL (3.4-4.8); Albumin/Globulin Ratio 1.1 (1.2-2.2); Alkaline Phosphatase 117 U/L (46-116); Anion Gap 19 (7-16); Aspartate Amino Transferase 21 U/L (0-34); BUN/Creatinine Ratio 17 Ratio (12-20); Bilirubin,Total 1.2 mg/dL (0.3-1.2); Blood Urea Nitrogen 77 mg/dL (9-23); Calcium 10.2 mg/dL (8.3-10.6); Calcium (Corrected) 10.3 mg/dL (8.5-10.1); Carbon Dioxide 22.4 mMol/L (20.0-31.0); Chloride 102 mMol/L (98-107); Creatinine (Component) 4.5 mg/dL (0.6-1.3); Globulin 3.4 gm/dL (2.3-3.5); Glucose 110 mg/dL (74-106); Lipase 206 U/L (12-53); Magnesium 2.1 mg/dL (1.6-2.6); Osmolality,Calculated 308 (275-295); Potassium 3.5 mMol/L (3.4-5.1); Procalcitonin 0.73 ng/ml (0.0-0.49); Sodium 143 mMol/L (136-145); Total Protein 7.3 gm/dL (5.7-8.2); Troponin I 0.043 ng/mL (0.0-0.045); eGFR 10 See Note
[2024-06-24 22:35] LABS: B-Type Natriuretic Peptide 1081 pg/mL (0-100)
[2024-06-24 23:00] VITALS: BP 155/92; PULSE 100; RESP 20; O2SAT 96
[2024-06-25] VITALS (25 sets, daily range): BP systolic 97–169; BP diastolic 44–120; PULSE 51–124; RESP 18–22; TEMP 35.8–37; O2SAT 94–98
[2024-06-25 00:42] LABS: Reflex Lactate? Y
[2024-06-25 00:57] LABS: Lactic Acid, 3 HR 2.4 mMol/L (0.4-2.0)
--- NOTE | 2024-06-25 01:30 | PC.NURSE ---
Pt is awake/oriented to self and place. Daughter Patel at bedside. Pt given water, okayed by Dr. Fernandez.
[2024-06-25 01:46] LABS: Collection Type, Urine Clean Catch
[2024-06-25 01:54] LABS: Bilirubin,Urine Negative (Negative); Blood,Urine Trace (Negative); Clarity,Urine Clear (Clear/Hazy); Color,Urine Yellow (Lt Yel-Yel); Glucose, Urine Negative (Negative); Ketones,Urine Negative (Negative); Leukocyte Esterase,Urine Negative (Negative); Nitrite,Urine Negative (Negative); PH,Urine 5.5 (5.0-7.0); Protein,Urine 1+ (Neg - Trace); RBC,Urine 3 /hpf (0-3); Specific Gravity,Urine 1.018 (1.001-1.035); Squamous Epithelial Cell,Urine < 1 /hpf (0-5); Urobilinogen,Urine Negative mg/dL (0.0-1.0); WBC,Urine 4 /hpf (0-5)
--- NOTE | 2024-06-25 03:20 | PC.NURSE ---
Dr. Bond at bedside. Md aware of cardiac rhythm a-fib; rate fluctuating from 100-120s, occasionally 130s,however does not sustain. Dr. Bond also aware BP has been elevated SBP 150s/DBP >100. Per MD, will look thru chart and put in orders.
--- NOTE | 2024-06-25 03:34 | PD.RESHP ---
Documentation for date of: 06/25/24 HPI History of Present Illness Chief complaint: Fall and generalized weakness History of present illness: Most of the history was taken from her daughter who was at bedside as patient is weak A 69-year-old female with significant past medical history of diabetes, hypertension, atrial fibrillation on Eliquis, ESRD on HD [3 times per week, unsure of the dates] since 2 months, missed dialysis on last Wednesday, gastric ulcer, recent hospitalization in [facility] for recurrent abdominal and pelvic abscesses, pneumonia for 2 months and discharged to rehabilitation center was brought to the hospital with chief complaints of fall and generalized weakness since 2 days. Patient was apparently normal and at her baseline bedridden with waning and waxing of her mental status, 2 days before admission patient was found on the floor asking for help and the staff in the facility came for help and patient answered that she fell from the bed after trying to go to the bathroom. At the time of fall, patient did not have any history of loss of consciousness, involuntary movements, bowel or bladder incontinence, trauma to the head or back, bruises. Since the fall patient was found to have generalized weakness and decline in her mental status for which patient was brought to the hospital. Denies fever, chest pain, shortness of breath, palpitations, burning micturition. But endorsed that the patient is having cough which was not new onset and present from 2 months with gurgling sound Patient was supposed to have dialysis on 23/06/2024 but missed the dialysis session due to fall, when questioned about the frequency of dialysis sessions, the patient's daughter was not aware of it ED Course: -Initial vitals were blood pressure 135/56 mmHg, pulse rate 98 bpm, respiratory rate 19/min, SpO2 96% with room air, temperature 97.6 ?F -Labs significant for BUN 77, creatinine 4.5, glucose 110, lactate 2.4, BNP 1081, procalcitonin 0.73, lipase 206. Urinalysis showed 1+ proteinuria -Chest x-ray showed bilateral moderate vascular congestion. EKG showed atrial fibrillation with rapid ventricular rate. CT chest/abdomen/pelvis showed mild heart failure, mild aneurysmal dilatation of ascending thoracic aorta. CT head is negative for acute hemorrhage, mass effect or midline shift. Cervical spine CT showed no acute fractures -Patient was admitted for fall Past medical history: diabetes, hypertension, atrial fibrillation on Eliquis, ESRD on HD [3 times per week, unsure of the dates] since 2 months, missed dialysis on last Wednesday, gastric ulcer, recent hospitalization in [facility] for recurrent abdominal and pelvic abscesses, Past surgical history: Not significant Social history: Denies smoking, alcohol, other illicit drug abuse. Review of Systems Review of Systems ROS Unobtainable: unobtainable due to mental status Past Medical History Past Medical History NEUROLOGIC: Negative Seizures CARDIAC: Positive Cardiac Disorders, Hypercholesterolemia and Hypertension; Negative Congestive Heart Failure RESPIRATORY: Negative Chronic Obstructive Pulmonary Disease (COPD) or Asthma GASTROINTESTINAL: Positive Ulcer GENITOURINARY: Positive Genitourinary Disorders, Renal Disease and Dialysis MUSCULOSKELETAL: Positive Musculoskeletal Disorders ENDOCRINE: Positive Endocrine Disorders and Diabetes Mellitus Type 2; Negative Diabetes Mellitus Type 1 HEMATOLOGIC: Negative Sickle Cell Disease OTHER HISTORY: Negative Blood Transfusions, Blood Transfusion Reaction, Anesthesia Reactions or Cancer Surgical History SURGICAL: Positive Abdominal Surgery Social History SMOKING STATUS: Unknown if ever smoked SUBSTANCE USE: does not use ALCOHOL: Never Exam Vital Signs Temp Pulse Resp BP Pulse Ox O2 Del Method 97.4 F 114 H 18 148/104 H 94 L Room Air 06/25/24 00:57 06/25/24 02:20 06/25/24 02:20 06/25/24 02:20 06/25/24 02:20 06/25/24 02:20 Narrative Exam General: Awake. HEENT: Normocephalic, atraumatic, mucous membranes dry. Heart: Irregular rate and rhythm, no murmurs. Lungs: Clear to auscultation with no wheezing or crackles. Abdomen: Soft, nondistended, nontender, positive bowel sounds. ?No guarding or rebound tenderness. Neurologic: Alert and oriented x2, no gross neurological deficit, and patient able to move all 4 extremities. Extremities: No edema. Skin: No rash or ecchymoses. Stage I decubitus ulcer noted on left gluteal region Results: Labs 06/25/24 05:07 06/25/24 05:07 Labs: Short CBC 06/24/24 Range/Units 21:32 WBC 7.9 (3.6-11.0) Thou/mm3 Hgb 12.1 (12.0-16.0) g/dL Hct 38.6 (36.0-46.0) % Plt Count 240 (140-440) Thou/mm3 BMP 06/24/24 21:32 Sodium 143 Potassium 3.5 Chloride 102 Carbon Dioxide 22.4 BUN 77 H Creatinine 4.5 H* D Glucose 110 H Calcium 10.2 Cardiac Enzymes 06/24/24 Range/Units 21:32 Troponin I 0.043 (0.0-0.045) ng/mL Liver Function 06/24/24 Range/Units 21:32 Total Bilirubin 1.2 (0.3-1.2) mg/dL AST 21 (0-34) U/L ALT < 7 L (10-49) U/L Alkaline Phosphatase 117 H (46-116) U/L Albumin 3.9 (3.4-4.8) gm/dL Urine 06/25/24 Range/Units 01:35 Urine Color Yellow (Lt Yel-Yel) Urine Clarity Clear (Clear/Hazy) Urine pH 5.5 (5.0-7.0) Ur Specific [place] 1.018 (1.001-1.035) Urine Protein 1+ A (Neg - Trace) Urine Glucose (UA) Negative (Negative) Quality Measures Quality Measures none Advance care planning discussed with:: legal surragate Medications Home Medications and Allergies Home Medications ?Medication ?Instructions ?Recorded ?Confirmed ?Type bisacodyl 10 mg rectal suppository 10 mg SC QDAY PRN Constipation 06/25/24 06/29/24 History (Dulcolax (bisacodyl)) mirtazapine 15 mg tablet 15 mg PO HS 06/25/24 06/29/24 History sodium bicarbonate 650 mg tablet 650 mg PO QDAY 06/25/24 06/29/24 History sodium phosphates 19 gram-7 118 ml SC QDAY 06/25/24 06/29/24 History gram/118 mL enema (Fleet Enema) Allergies Allergy/AdvReac Type Severity Reaction Status Date / Time No Known Allergies Allergy Verified 06/29/24 11:35 Visit Medications Acetaminophen (Acetaminophen 325 Mg Tablet) 650 mg PO Q6H PRN PRN Reason: Fever >101.5 Stop: 07/25/24 03:24 Amiodarone HCl (Amiodarone Hcl 200 Mg Tablet) 200 mg PO BID ANGELICA Stop: 07/25/24 08:59 Apixaban (Apixaban 2.5 Mg Tablet) 5 mg PO BID ANGELICA Stop: 07/25/24 08:59 Dextrose (Dextrose 50%-Water Inj 50 Ml Syringe) 25 ml IV Q15MIN PRN PRN Reason: BG 50-70 responsive npo pt Stop: 07/25/24 03:28 Dextrose (Dextrose 50%-Water Inj 50 Ml Syringe) 50 ml IV Q15MIN PRN PRN Reason: BG <50 OR BG <70 & pt unresponsive Stop: 07/25/24 03:28 Glucagon (Glucagon Inj 1 Mg Vial) 1 mg IM Q15MIN PRN PRN Reason: BG <70, and no IV access Insulin Human Lispro (Insulin Lispro (Admelog) 1 Unit/0.01 Ml Unit) 0 unit SC ACHS [facility]; Protocol Stop: 07/25/24 07:29 Magnesium Hydroxide (Milk Of Magnesia Susp 30 Ml Udc) 30 ml PO QDAY PRN; Protocol PRN Reason: CONSTIPATION Stop: 07/25/24 03:24 Ondansetron HCl (Ondansetron Inj 2 Mg/Ml Inj 2 Ml) 4 mg IV Q6H PRN; Protocol PRN Reason: NAUSEA OR VOMITING Stop: 07/25/24 03:24 Discontinued Medications Carvedilol (Carvedilol 3.125 Mg Tablet) 6.25 mg PO X1 ONE Stop: 06/25/24 03:32 Assessment & Plan Plan A 69-year-old female with significant past medical history of diabetes, hypertension, atrial fibrillation on Eliquis, ESRD on HD [3 times per week, unsure of the dates] since 2 months, missed dialysis on last Wednesday, gastric ulcer, recent hospitalization in [facility] for recurrent abdominal and pelvic abscesses, pneumonia for 2 months and discharged to rehabilitation center was brought to the hospital with chief complaints of fall and generalized weakness since 2 days and admitted for observation in view of recent fall # Fall # Likely mechanical -Patient was bedridden since 2 months after prolonged hospitalization -Tried to get up from the bed and had a fall which was unwitnessed 2 days before the day of admission -Denies trauma to the head, involuntary movements, bowel or bladder incontinence, bruises -No further episodes noted -Denies palpitations, syncopal episodes, fever, chest pain, shortness of breath -Vitals at the time of admission showed blood pressure 135/56 mmHg, pulse rate 98/min -EKG showed atrial fibrillation with rapid ventricular rate -CT head is negative for hemorrhage and a cervical spine CT is negative for acute fractures Plan -Will monitor vitals -Admitted for observation # ESRD on HD -Patient was started on dialysis during the last admission 2 months ago -At the time of admission BUN is 77, creatinine is 4.5 -Patient was supposed to have dialysis on 06/23/2024, missed the dialysis episode as the patient had a fall at the time -Consulted Dr. August, pending recommendations -Resumed sodium bicarbonate tablets # Stage I decubitus ulcer -Patient had stage I decubitus ulcer on left gluteal region -Wound care referral done # Atrial fibrillation with rapid ventricular rate, resolved -Patient had history of atrial fibrillation with rapid ventricular rate and is on amiodarone and Eliquis -Heart rate in the ED was found to be between 130-140 and blood pressures are elevated in 140s/110s -Administered a dose of carvedilol 6.25 Mg -EF is 55 to 60% in 04/2024 Plan -Resumed her amiodarone and Eliquis # Diabetes -A1c is 6.3 on 05/21/2024 -Patient is on glargine 12 units at home -Started on insulin sliding scale -Resumed her insulin glargine # Hypertension -Patient is found to be hypotensive during the previous admission and was started on midodrine -Midodrine was held for now in view of adequate blood pressures # History of abdominal abscess -Resumed her fluconazole Hospital Maintenance: Dispo: observation, medsurg DVT ppx: eliquis GI ppx: not needed Diet: renal IV lines: peripheral Code status: Full Patient plan of care was discussed with the attending physician, Dr. Areli Bond, PGY1 Attending Provider Attestation/Addendum I have discussed and was present for the essential components of the history, physical examination, diagnosis, and treatment plan with the resident. I agree with the patient's care as documented by the resident and amended herein by me. Nato Singleton DO. Although this document has been carefully reviewed, there may still be some phonetic and other typographical errors. These errors are purely grammatical due to imperfections in the software program and should not be construed in any way to compromise the substance of the patient's medical care during this visit.
[2024-06-25] MEDS: carVEDILOL 3.125 MG TABLET 6.25 MG PO (03:49)
--- NOTE | 2024-06-25 04:40 | PC.NURSE ---
Called hospitalist spoke to resident Dr. Solis. Pt currently needs med-surg service. 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 Per Dr. Solis will put in orders to change services to Med-tele.
[2024-06-25 05:53] LABS: Basophils % (Auto) 1 % (0-2.5); Eosinophils % (Auto) 0 % (0-10); Hematocrit 38.4 % (36.0-46.0); Hemoglobin 11.8 g/dL (12.0-16.0); Immature Granulocytes % (Auto) 1 % (0-0); Immature Granulocytes Auto 0.05 Thou/mm3 (0.00-0.00); Lymphocytes # (Auto) 3.3 Thou/mm3 (1.0-4.8); Lymphocytes % (Auto) 45 % (10-50); Mean Corpuscular HGB Conc 30.7 g/dl (31.0-37.0); Mean Corpuscular Hemoglobin 27.1 pg (25.0-35.0); Mean Corpuscular Volume 88 fL (80-100); Monocytes # (Auto) 0.8 Thou/mm3 (0.0-0.8); Monocytes % (Auto) 11 % (0-12); Neutrophils # (Auto) 3.2 Thou/mm3 (1.8-7.7); Neutrophils % (Auto) 43 % (37-80); Nucleated Red Blood Cell % 0 /100 WBC (0); Platelet Count 250 Thou/mm3 (140-440); Red Blood Count 4.36 Miln/mm3 (4.00-5.20); White Blood Count 7.4 Thou/mm3 (3.6-11.0)
[2024-06-25 06:26] LABS: Anion Gap 19 (7-16); BUN/Creatinine Ratio 17 Ratio (12-20); Blood Urea Nitrogen 73 mg/dL (9-23); Calcium 9.9 mg/dL (8.3-10.6); Chloride 104 mMol/L (98-107); Creatinine (Component) 4.3 mg/dL (0.6-1.3); Glucose 114 mg/dL (74-106); Osmolality,Calculated 307 (275-295); Potassium 3.6 mMol/L (3.4-5.1); Sodium 143 mMol/L (136-145); eGFR 11 See Note
[2024-06-25] MEDS: guaiFENesin SYRUP 200 MG/10 ML UDC PO (06:40)
--- NOTE | 2024-06-25 09:38 | PC.NURSE ---
RN spoke with Dr Rivera to verify Lantus sq, informed of blood sugar and per MD coronado to skip Lantus at this time.
[2024-06-25] MEDS: AMIODARONE HCL 200 MG TABLET PO (10:03)
[2024-06-25] MEDS: APIXABAN 2.5 MG TABLET 5 MG PO (10:05)
--- NOTE | 2024-06-25 10:37 | ESCONSULT_ITS ---
History of Present Illness Data of Consult Consult date: 06/25/24 Requesting Physician: Elio Singleton DO Primary Care Provider: Jaxon Mosley MD Consult Narrative Reason for consult: ADILSON-need for dialysis History of present illness: Chart review done. Spoke to daughter who is the informant Ms. Castellanos is a 69-year-old female who is well-known to me from recent prolonged admission has significant past medical history of diabetes, hypertension, atrial fibrillation on Eliquis, ADILSON/ATN on HD [3 times per week, MWF] since 2 months, missed dialysis on last Wednesday, gastric ulcer, recent hospitalization in [facility] for recurrent abdominal and pelvic abscesses, pneumonia for 2 months and discharged to rehabilitation center last week was brought to the hospital with chief complaints of fall and generalized weakness since 2 days. Patient was apparently normal and at her baseline bedridden with waning and waxing of her mental status, 2 days before admission patient was found on the floor asking for help and the staff in the facility came for help and patient answered that she fell from the bed after trying to go to the bathroom. At the time of fall, patient did not have any history of loss of consciousness, involuntary movements, bowel or bladder incontinence, trauma to the head or back, bruises. Since the fall patient was found to have generalized weakness and decline in her mental status for which patient was brought to the hospital. Denies fever, chest pain, shortness of breath, palpitations, burning micturition. Patient was having cough for the last 2 months. In the emergency department blood pressure 134/56, heart rate 98, O2 sat 96% on room air. Afebrile. BUN 77, creatinine 4.5, WBC 7.4, hemoglobin 11.8, platelets 250. Sodium 143, potassium 3.6, bicarbonate 20, calcium 9.9, LFTs normal, BNP 1081, albumin 3.9, Pro-Se 0.73. Urinalysis shows 1+ protein. Patient had a chest x-ray which showed mild CHF CT chest abdomen and pelvis showed mild heart failure. Head CT negative cervical spinal CT no acute fracture. Patient admitted by medical team status post fall and shortness of breath and need for dialysis. Nephrology consultation was requested for need for dialysis. cc:: cc: Elio Singleton DO Review of Systems Review of Systems Narrative Review of Systems: Complaining of shortness of breath, cough. Denies any nausea, vomiting. Significant leg weakness Mild abdominal pain Past Medical History Past Medical History NEUROLOGIC: Negative Seizures CARDIAC: Positive Cardiac Disorders, Hypercholesterolemia and Hypertension; Negative Congestive Heart Failure RESPIRATORY: Negative Chronic Obstructive Pulmonary Disease (COPD) or Asthma GASTROINTESTINAL: Positive Ulcer GENITOURINARY: Positive Genitourinary Disorders, Renal Disease and Dialysis MUSCULOSKELETAL: Positive Musculoskeletal Disorders ENDOCRINE: Positive Endocrine Disorders and Diabetes Mellitus Type 2; Negative Diabetes Mellitus Type 1 HEMATOLOGIC: Negative Sickle Cell Disease OTHER HISTORY: Negative Blood Transfusions, Blood Transfusion Reaction, Anesthesia Reactions or Cancer Surgical History SURGICAL: Positive Abdominal Surgery Social History SMOKING STATUS: Unknown if ever smoked SUBSTANCE USE: does not use Meds Home Medications and Allergies Home Medications ?Medication ?Instructions ?Recorded ?Confirmed ?Type bisacodyl 10 mg rectal suppository 10 mg CO QDAY PRN Constipation 06/25/24 06/25/24 History (Dulcolax (bisacodyl)) mirtazapine 15 mg tablet 15 mg PO HS 06/25/24 06/25/24 History sodium bicarbonate 650 mg tablet 650 mg PO QDAY 06/25/24 06/25/24 History sodium phosphates 19 gram-7 118 ml CO QDAY 06/25/24 06/25/24 History gram/118 mL enema (Fleet Enema) Allergies Allergy/AdvReac Type Severity Reaction Status Date / Time No Known Allergies Allergy Verified 05/28/24 22:16 Exam Vital Signs Temp Pulse Resp BP Pulse Ox O2 Del Method 36.6 C 102 H 19 108/64 95 Room Air 06/25/24 05:40 06/25/24 10:03 06/25/24 06:10 06/25/24 10:03 06/25/24 06:10 06/25/24 06:10 Narrative Exam GENERAL APPEARANCE: Patient currently seen in her dialysis. Comfortable. NECK: Neck supple, no JVD or bruit CARDIOVASCULAR: Heart regular, no murmurs LUNGS/CHEST: Rhonchi bilaterally ABDOMEN: S/p abdominal surgery EXTREMITIES: 2+ edema in the lower extremities SKIN: Skin exam normal without any rashes. IJ dialysis catheter MUSCULOSKELETAL: In bed NEUROLOGICAL : Alert and awake Results Labs 06/25/24 05:07 06/25/24 05:07 Labs: Short CBC 06/24/24 06/25/24 Range/Units 21:32 05:07 WBC 7.9 7.4 (3.6-11.0) Thou/mm3 Hgb 12.1 11.8 L (12.0-16.0) g/dL Hct 38.6 38.4 (36.0-46.0) % Plt Count 240 250 (140-440) Thou/mm3 BMP 06/24/24 06/25/24 21:32 05:07 Sodium 143 143 Potassium 3.5 3.6 Chloride 102 104 Carbon Dioxide 22.4 20.0 BUN 77 H 73 H Creatinine 4.5 H* D 4.3 H* Glucose 110 H 114 H Calcium 10.2 9.9 Cardiac Enzymes 06/24/24 Range/Units 21:32 Troponin I 0.043 (0.0-0.045) ng/mL Liver Function 06/24/24 Range/Units 21:32 Total Bilirubin 1.2 (0.3-1.2) mg/dL AST 21 (0-34) U/L ALT < 7 L (10-49) U/L Alkaline Phosphatase 117 H (46-116) U/L Albumin 3.9 (3.4-4.8) gm/dL Urine 06/25/24 Range/Units 01:35 Urine Color Yellow (Lt Yel-Yel) Urine Clarity Clear (Clear/Hazy) Urine pH 5.5 (5.0-7.0) Ur Specific [place] 1.018 (1.001-1.035) Urine Protein 1+ A (Neg - Trace) Urine Glucose (UA) Negative (Negative) Assessment & Plan Additional Assessment & Plan Additional Plan: Mr. Castellanos is a [id number] with past medical history of prediabetes, CKD, hypertension, history of ulcers who was admitted to [facility] for sepsis secondary to pneumonia and acute metabolic encephalopathy. Patient is currently sedated intubated in ICU status post exploratory laparotomy with repair of perforated gastric ulcer with an omental patch. Nephrology consulted for acute kidney injury. #Acute kidney injury #Acute Tubular Necrosis #Anasarca Patient currentlyin ATN probably ischemic from fluctuations in blood pressure and underlying shock- started her on dialysis-2 months ago Patient has left IJ PermCath Patient currently seen on dialysis. Tolerating dialysis without any problems. Hemodialysis for 3 2.5 hours, 2K, ultrafiltration 2-3 L, Epogen 6000, no heparin ordered. Plan of care discussed with the dialysis nurse. Please see dialysis flowsheet for further details. Plan discussed with primary team--discharge planning per primary team. # Recent ischemic stroke # decompensated HF # afib #Hyperlipidemia #Primary Hypertension -patient currently on metoprolol and midodrine. #Acute Hypoxic Respiratory failure #Peritonitis secondary to perforated gastric ulcer- s/p sx, on antibiotics//antifungal # Recent acute Upper GI bleed #Diabetes Mellitus type II # Anemia of chronic renal insufficiency All above problems per primary team. Thank you Dr. See for allowing me to participate in the care of Mr. Le
[2024-06-25] MEDS: FLUCONAZOLE 100 MG TABLET 200 MG PO (12:11)
--- NOTE | 2024-06-25 12:33 | PC.NURSE ---
Patient to HD via gurney with Wire Strander, per RN will currently run for x2hrs.
--- NOTE | 2024-06-25 15:31 | PC.NURSE ---
Dialysis completed for 2.5 hrs, pt no complaints. Respiration even and unlabored, sating at 98% on O2 at 2L/min via nc. Able to removed 1400 ml of fluid net. Post tx BP 107/64, HR 66, Temp 96.5. Report given to Bettina SPARKS
--- NOTE | 2024-06-25 16:01 | PC.NURSE ---
Report recieved from Satya marine insulator 1.4L removed, BPP 107/64, HR 59 T 96.5, 98% 2LNC. Patient returned to room 9 via [place] with PIT MANAGER. Patient on panel monitor, updated with plan of care, call light within reach.
--- NOTE | 2024-06-25 17:00 | PC.CC ---
ASWJoi was informed that patient has discharge orders in to be discharged. ASW made contact with [facility] to arrange transportation [phone].
[2024-06-25] MEDS: INSULIN LISPRO (AdmeLOG) 1 UNIT/0.01 ML UNIT SC (17:03)
[2024-06-25] MEDS: droNABinol 2.5 MG CAPSULE 10 MG PO (17:04)
--- NOTE | 2024-06-25 18:20 | ESDS_ITS ---
<Statement entered by Michel See MD - 07/01/24 13:41> I reviewed above note and agree with findings and plans. I have also personally examined the patient with medicine team and went over assessment and plan with medical team including mechanical intern and resident physician. Planned Discharge Date 06/25/24 DS: Providers Provider Date of admission: 06/25/24 03:25 Primary care physician: Jaxon Mosley MD Admitting Provider: Elio Singleton DO Attending Provider on Admission: Elio Singleton DO Consults: 06/25/24 05:32 Consult to Nephrology Stat Comment: esrd Consulting Provider: Murphy August Attending Provider on DC: Karol Rivera MD Discharging Provider: Karol Rivera MD DS: Diagnosis Problem List Completed Was Problem List Reviewed/Reconciled?: Yes Hospital Course Hospital Course Hospital course: Ms. Castellanos is a 69-year-old female with significant past medical history of diabetes, hypertension, atrial fibrillation on Eliquis, ESRD on HD [MWF] since 2 months, missed dialysis on last Friday 06/23, history of gastric ulcer, recent hospitalization in [facility] for perforated gastric ulcer patient is status post exploratory laparotomy and her previous hospitalization was complicated by recurrent abdominal and pelvic abscesses, pneumonia for 2 months and discharged to rehabilitation center on 06/21 was brought to the hospital with chief complaints of fall and generalized weakness since discharge. On arrival patient had waxing and waning mental status for 2 days before admission patient was found on the floor asking for help and the staff in the facility came for help and patient answered that she fell from the bed after trying to go to the bathroom. At the time of fall, patient did not have any history of loss of consciousness, involuntary movements, bowel or bladder incontinence, trauma to the head or back, bruises. Since the fall patient was found to have generalized weakness and decline in her mental status for which patient was brought to the hospital. On examination patient appeared to be fluid overloaded therefore associate software development engineer was consulted for urgent dialysis session. Patient underwent 2-hour dialysis session. Patient is clinically and hemodynamically stable to be discharged to SNF. patient is saturating on room air she is able to converse and states she is ready to go back to the rehab facility so she can continue physical therapy. patient denies any chest pain or shortness of breath. Patient is strongly advised if her patient worsen or recur to promptly return to the ED. Images -Chest x-ray showed bilateral moderate vascular congestion. EKG showed atrial fibrillation with rapid ventricular rate. -CT chest/abdomen/pelvis showed mild heart failure, mild aneurysmal dilatation of ascending thoracic aorta. -CT head is negative for acute hemorrhage, mass effect or midline shift. -Cervical spine CT showed no acute cervical fracture Discharge Recommendations Recommend to continue fluconazole for fungal abdominal abscesses through July 01, 2024. Recommend to continue Eliquis and amiodarone for atrial fibrillation, will start patient on metoprolol succinate 25 mg/day, with holding parameters, hold if systolic blood pressure less than 100 or heart rate less than 65/min. Recommend discontinuing midodrine as patient's blood pressure has been > 140 during his hospital visit. Recommend following up with primary doctor if continued need for midodrine due to low blood pressure. Please follow-up with general surgeon Dr. Santana within 1 week of discharge from hospital. Recommend continuing aggressive physical therapy and fall precautions as patient is on anticoagulation and risk of bleeding. In case of worsening symptoms please turn to the emergency room. Hospitalization Diagnosis # Fall # Likely mechanical # ESRD on HD # Stage I decubitus ulcer # Atrial fibrillation with rapid ventricular rate, resolved # Diabetes # Hypertension # History of ex lap- recurrent abdominal abscess Assessment and plan discussed with my attending physician Dr. Esa Rivera (PGY-1)- Internal medicine resident Time Spent with Patient Time attestation: Total time spent providing and/or coordinating discharge services: Exam Vital Signs Temp Pulse Resp BP Pulse Ox O2 Del Method O2 Flow Rate 96.5 F L 66 19 107/64 98 Nasal Cannula 2 06/25/24 15:13 06/25/24 15:13 06/25/24 15:13 06/25/24 15:13 06/25/24 15:13 06/25/24 12:32 06/25/24 15:13 Narrative Exam GENERAL: A&Ox3 . Awake, Not in acute distress NEURO: no focal neurological deficits HEENT: Atraumatic, Normocephalic. mucous membranes moist. Eyes open, symmetrical, & clear HEART: Normal Heart Sounds LUNGS: Clear to auscultation with no wheezing or crackles. ABDOMEN: soft, non-distended, non-tender, bowel sounds heard, no guarding or rebound tenderness SKIN: No Rash or ecchymoses, Stage I decubitus ulcer noted on left gluteal region EXTREMITIES: trace pitting edema, no tenderness, able to move all 4 extremities, pedal pulses palpated Discharge Plan Problem List Was Problem List Reviewed/Reconciled?: Yes Plan Patient Disposition: Xfer Skilled Nsg Fac (SNF) Care Plan Goals: Recommend to continue fluconazole for fungal abdominal abscesses through July 01, 2024. Recommend to continue Eliquis and amiodarone for atrial fibrillation, will start patient on metoprolol succinate 25 mg/day, with holding parameters, hold if systolic blood pressure less than 100 or heart rate less than 65/min. Recommend discontinuing midodrine as patient's blood pressure has been > 140 during his hospital visit. Recommend following up with primary doctor if continued need for midodrine due to low blood pressure. Please follow-up with general surgeon Dr. Santana within 1 week of discharge from hospital. Recommend continuing aggressive physical therapy and fall precautions as patient is on anticoagulation and risk of bleeding. In case of worsening symptoms please turn to the emergency room. Prescriptions/Referrals Prescriptions/Med Rec: New metoprolol succinate 25 mg capsule,sprinkle,ER 24hr 25 mg PO QDAY Qty: 30 0RF Rx Instructions: Hold if blood pressure less than 100 systolic or heart rate less than 65/min midodrine 5 mg tablet 5 mg PO TID PRN (Reason: hypotension) Qty: 10 0RF Rx Instructions: Currently blood pressure stable, may require midodrine if systolic blood pressure less than 100, hold if blood pressure more than 100 or heart rate less than 60. Continued amiodarone 200 mg tablet 200 mg PO BID 30 Days Qty: 60 0RF Rx Instructions: Hold for SBP <110 or HR<60 Eliquis 5 mg tablet 5 mg PO BID 30 Days Qty: 60 0RF pantoprazole [Protonix] 40 mg tablet,delayed release (DR/EC) 40 mg PO BID Qty: 60 0RF insulin glargine-yfgn 100 unit/mL (3 mL) insulin pen 12 unit subcut QDAY Qty: 15 0RF (DME) pen needle, diabetic [1st Tier Unifine Pentips] 29 gauge x 1/2 needle See Rx Instructions .ROUTE Qty: 100 0RF Rx Instructions: As directed dronabinol 10 mg capsule 10 mg PO BIDAC 30 Days Qty: 60 0RF guaifenesin 100 mg/5 mL Liquid 200 mg PO QID 14 Days Qty: 560 0RF sennosides [Senna Lax] 8.6 mg Tablet 8.6 mg PO QDAY Qty: 14 0RF polyethylene glycol 3350 [HealthyLax] 17 gram Powder In Packet 17 g PO BID PRN (Reason: constipation) 30 Days Qty: 5 0RF fluconazole 200 mg tablet 200 mg PO QDAY Qty: 8 0RF Rx Instructions: End Date 07/01/24 bisacodyl [Dulcolax (bisacodyl)] 10 mg Suppository 10 mg IA QDAY PRN (Reason: Constipation) Rx Instructions: To be administered the following shift if MOM is ineffective Fleet Enema 19-7 gram/118 mL Enema 118 ml IA QDAY mirtazapine 15 mg Tablet 15 mg PO HS sodium bicarbonate 650 mg tablet 650 mg PO QDAY Discontinued midodrine 5 mg tablet 5 mg PO TID 30 Days Qty: 90 0RF Rx Instructions: HOLD if SBP is > 110 systolic. Referrals: Jaxon Mosley MD [Primary Care Provider] - Emily Santana MD [Physician] - Murphy August MD [Physician] - Patient/Caregiver Discharge Instructions Education Materials: Preventing Falls: Staying Active Print Language: Hmong Stand Alone Forms: Kristi Award Info., Patient Portal Info Letter Discharge Order Discharge Orders: Discharge (Routine); Ordered 06/25/24 Ordered By: Saw Quiñonez Quality Discharge Quality Measures none
--- NOTE | 2024-06-25 18:55 | PC.NURSE ---
Report given to Marcia Rn at [facility] with D/C care plan and eta update transport via ambulance.
--- NOTE | 2024-06-26 10:06 | ESPR_ITS ---
Documentation for date of: 06/26/24 Subjective Subjective Interval history: Chart review done. Spoke to daughter who is the informant Ms. Castellanos is a 69-year-old female who is well-known to me from recent prolonged admission has significant past medical history of diabetes, hypertension, atrial fibrillation on Eliquis, ADILSON/ATN on HD [3 times per week, MWF] since 2 months, missed dialysis on last Wednesday, gastric ulcer, recent hospitalization in [facility]3] for recurrent abdominal and pelvic abscesses, pneumonia for 2 months and discharged to rehabilitation center last week was brought to the hospital with chief complaints of fall and generalized weakness since 2 days. Patient was apparently normal and at her baseline bedridden with waning and waxing of her mental status, 2 days before admission patient was found on the floor asking for help and the staff in the facility came for help and patient answered that she fell from the bed after trying to go to the bathroom. At the time of fall, patient did not have any history of loss of consciousness, involuntary movements, bowel or bladder incontinence, trauma to the head or back, bruises. Since the fall patient was found to have generalized weakness and decline in her mental status for which patient was brought to the hospital. Denies fever, chest pain, shortness of breath, palpitations, burning micturition. Patient was having cough for the last 2 months. In the emergency department blood pressure 134/56, heart rate 98, O2 sat 96% on room air. Afebrile. BUN 77, creatinine 4.5, WBC 7.4, hemoglobin 11.8, platelets 250. Sodium 143, potassium 3.6, bicarbonate 20, calcium 9.9, LFTs normal, BNP 1081, albumin 3.9, Pro-Se 0.73. Urinalysis shows 1+ protein. Patient had a chest x-ray which showed mild CHF CT chest abdomen and pelvis showed mild heart failure. Head CT negative cervical spinal CT no acute fracture. Patient admitted by medical team status post fall and shortness of breath and need for dialysis. Nephrology consultation was requested for need for dialysis. 06/26/2024 patient currently seen on dialysis. Noted to have significant fluid overload. Last dialysis she missed on Wednesday. Labs, medications reviewed. Review of Systems Review of Systems Narrative Review of Systems: Complaining of shortness of breath, cough. Denies any nausea, vomiting. Significant leg weakness Mild abdominal pain Exam Vital Signs Temp Pulse Resp BP Pulse Ox O2 Del Method O2 Flow Rate 37.0 C 109 H 19 97/64 97 Nasal Cannula 2 06/25/24 18:55 06/25/24 18:55 06/25/24 18:55 06/25/24 18:55 06/25/24 18:55 06/25/24 12:32 06/25/24 15:13 Narrative Exam GENERAL APPEARANCE: Patient currently seen in her dialysis. Seems short of breath NECK: Neck supple, no JVD or bruit CARDIOVASCULAR: Heart regular, no murmurs LUNGS/CHEST: Rhonchi bilaterally ABDOMEN: S/p abdominal surgery EXTREMITIES: 2+ edema in the lower extremities SKIN: Skin exam normal without any rashes. IJ dialysis catheter MUSCULOSKELETAL: In bed NEUROLOGICAL : Alert and awake Objective Labs 06/25/24 05:07 06/25/24 05:07 Assessment & Plan Additional Assessment & Plan Additional Plan: Mr. Castellanos is a [id number] with past medical history of prediabetes, CKD, hypertension, history of ulcers who was admitted to [facility]3] for sepsis secondary to pneumonia and acute metabolic encephalopathy. Patient is currently sedated intubated in ICU status post exploratory laparotomy with repair of perforated gastric ulcer with an omental patch. Nephrology consulted for acute kidney injury. #Acute kidney injury #Acute Tubular Necrosis #Anasarca Patient currentlyin ATN probably ischemic from fluctuations in blood pressure and underlying shock- started her on dialysis-2 months ago Patient has left IJ PermCath Patient currently seen on dialysis. Tolerating dialysis without any problems. Hemodialysis for 2.5 hours, 2K, ultrafiltration 2-3 L, Epogen 6000, no heparin ordered. Plan of care discussed with the dialysis nurse. Please see dialysis flowsheet for further details. Plan discussed with primary team--discharge planning per primary team. # Recent ischemic stroke # decompensated HF # afib #Hyperlipidemia #Primary Hypertension -patient currently on metoprolol and midodrine. #Acute Hypoxic Respiratory failure #Peritonitis secondary to perforated gastric ulcer- s/p sx, on antibiotics//antifungal # Recent acute Upper GI bleed #Diabetes Mellitus type II # Anemia of chronic renal insufficiency All above problems per primary team. Overall her prognosis remains poor. If no improvement and with recurrent hospitalization. family to consider comfort care Thank you Dr. See for allowing me to participate in the care of Mr. Castellanos Quality - progress note Quality Measures Quality Measures: VTE prophylaxis Reason for Continued Stay Reason for Continued Stay: further monitoring
== END 2024-06-25 18:56 | disposition skilled nursing facility (03) ==
LOC: SERX 22:23 → SERHOLD 06-25 05:06
PROVIDERS: Admitting Provider Student in an Organized Health Care Education/Training Program; Emergency Provider Emergency Medicine; PCP Student in an Organized Health Care Education/Training Program; Visit Provider Student in an Organized Health Care Education/Training Program
DX: N17.0 Acute kidney failure with tubular necrosis (principal); J96.01 Acute respiratory failure with hypoxia; I71.21 Aneurysm of the ascending aorta, without rupture; I50.9 Heart failure, unspecified; I48.91 Unspecified atrial fibrillation; K25.5 Chronic or unspecified gastric ulcer with perforation; K59.00 Constipation, unspecified; K65.1 Peritoneal abscess; N18.6 End stage renal disease; I13.2 Hypertensive heart and chronic kidney disease with heart failure and with stage 5 chronic kidney disease, or end stage renal disease; G93.41 Metabolic encephalopathy; G44.309 Post-traumatic headache, unspecified, not intractable; Z99.2 Dependence on renal dialysis; Z86.73 Personal history of transient ischemic attack (TIA), and cerebral infarction without residual deficits; Z91.158 Patient's noncompliance with renal dialysis for other reason; W06.XXXA Fall from bed, initial encounter; E78.00 Pure hypercholesterolemia, unspecified; E11.22 Type 2 diabetes mellitus with diabetic chronic kidney disease; D63.1 Anemia in chronic kidney disease; L89.91 Pressure ulcer of unspecified site, stage 1; Z74.01 Bed confinement status
CPT/HCPCS: 51701; 36415; 70450; 71045; 71250; 72125; 74176; 80048; 80053; 81001; 83605; 83690; 83735; 83880; 84145; 84484; 85025; 85610; 85730; 87040; 87086; 87811; 90935; 93005; 99285; G0378; J1815; Q0167; A9270; G0257

== ENCOUNTER 2024-06-26 16:01 | Emergency (ER) | payer MEDICARE, MEDICAID, SELFPAY ==
[2024-06-26] VITALS (10 sets, daily range): BP systolic 105–158; BP diastolic 54–90; PULSE 92–125; RESP 18–29; TEMP 35.7–38; O2SAT 97–100
--- NOTE | 2024-06-26 16:05 | XR_ITS ---
Examination: AP chest single view Technique one AP portable sitting chest single view Exam date and time: June 26, 2019 0518 hours Comparison June 24, 2024 INDICATIONS: Shortness of breath today. FINDINGS: Mild CHF Mild enlargement cardiac contour Prominent vascular congestion including early basilar edema Left internal jugular dialysis catheter tips satisfactory position IMPRESSION: Mild CHF
--- NOTE | 2024-06-26 16:05 | EDNOTE_ITS ---
ED General RME/HPI General Chief complaint: Shortness of Breath/Dyspnea Stated complaint: SHORTNESS OF BREATH Time Seen by Provider: 06/26/24 16:04 Arrival date/time: 06/26/24 16:01 CC: Shortness of breath HPI patient presents the ER via EMS from dialysis center after only 1-1/2 hours of dialysis the patient complaining of shortness of breath recent admission to this emergency room diagnosed with pneumonia. EMS report oxygen saturations of 100% on 4 L nasal cannula which she was on at dialysis and was maintained through the transport. Related Data Home Medications ?Medication ?Instructions ?Recorded ?Confirmed bisacodyl 10 mg rectal suppository 10 mg MT QDAY PRN Constipation 06/25/24 06/25/24 (Dulcolax (bisacodyl)) mirtazapine 15 mg tablet 15 mg PO HS 06/25/24 06/25/24 sodium bicarbonate 650 mg tablet 650 mg PO QDAY 06/25/24 06/25/24 sodium phosphates 19 gram-7 118 ml MT QDAY 06/25/24 06/25/24 gram/118 mL enema (Fleet Enema) Previous Rx's ?Medication ?Instructions ?Recorded amiodarone 200 mg tablet 200 mg PO BID 30 days #60 tabs 06/08/24 apixaban 5 mg tablet (Eliquis) 5 mg PO BID 30 days #60 tabs 06/08/24 insulin glargine-yfgn 100 unit/mL 12 unit (0.12 mL) subcut QDAY #15 06/08/24 (3 mL) subcutaneous pen mL pantoprazole 40 mg tablet,delayed 40 mg PO BID #60 tabs 06/08/24 release (Protonix) pen needle, diabetic 29 gauge x #100 ea 06/08/24 1/2 (1st Tier Unifine Pentips) dronabinol 10 mg capsule 10 mg PO BIDAC 30 days #60 caps 06/16/24 guaifenesin 100 mg/5 mL oral liquid 200 mg (10 mL) PO QID 14 days #560 06/16/24 mL fluconazole 200 mg tablet 200 mg PO QDAY #8 tabs 06/17/24 polyethylene glycol 3350 17 gram 17 g PO BID PRN constipation 30 06/17/24 oral powder packet (HealthyLax) days #5 ea sennosides 8.6 mg tablet (Senna 8.6 mg PO QDAY #14 tabs 06/17/24 Lax) metoprolol succinate 25 mg capsule 25 mg PO QDAY #30 ea 06/25/24 sprinkle, ext. release 24 hr midodrine 5 mg tablet 5 mg PO TID PRN hypotension #10 06/25/24 tabs Allergies Allergy/AdvReac Type Severity Reaction Status Date / Time No Known Allergies Allergy Verified 05/28/24 22:16 Review of Systems Review of Systems Narrative Review of Systems: GEN: No fever, no chills, no weight loss EYES: No discharge, no visual changes, no pain HEENT: No ear pain, no congestion, no sore throat PULM: + shortness of breath, no cough, no congestion CV: No chest pain, no dyspnea on exertion, no palpitations GI: No nausea, no vomiting, no diarrhea, no pain, no constipation : No frequency, no urgency, no dysuria MUSC/SKEL: No joint pain, no back pain SKIN: No rash PSYCH: No hallucinations, no depression HEME/LYMPH: No easy bleeding or bruising tendencies NEURO: No weakness, no headache Past Medical History Past Medical History NEUROLOGIC: Negative Seizures CARDIAC: Positive Cardiac Disorders, Hypercholesterolemia and Hypertension; Negative Congestive Heart Failure RESPIRATORY: Negative Chronic Obstructive Pulmonary Disease (COPD) or Asthma GASTROINTESTINAL: Positive Ulcer GENITOURINARY: Positive Genitourinary Disorders, Renal Disease and Dialysis MUSCULOSKELETAL: Positive Musculoskeletal Disorders ENDOCRINE: Positive Endocrine Disorders and Diabetes Mellitus Type 2; Negative Diabetes Mellitus Type 1 HEMATOLOGIC: Negative Sickle Cell Disease OTHER HISTORY: Negative Blood Transfusions, Blood Transfusion Reaction, Anesthesia Reactions or Cancer Surgical History SURGICAL: Positive Abdominal Surgery Social History SMOKING STATUS: Unknown if ever smoked SUBSTANCE USE: does not use ED Exam Narrative Physical exam: [General: Mild discomfort but not in any acute distress Head normocephalic HEENT: Within acceptable limits Neck is supple nontender Chest equal chest rise nontender to palpation Respiratory: Coarse bibasilar crackles, wet nonproductive cough CV: Rate rhythm is irregular, accelerated, no murmurs rubs or clicks Abdomen is soft nontender no masses positive bowel sounds all 4 quadrants Back: No CVA tenderness no spinous process tenderness from cervical spine thoracic and lumbar spine Skin: Intact no petechiae rash induration ulceration or crepitus Extremities: Moving all extremity against resistance cap refill less than 2 seconds neurosensory intact Neuro: Awake alert oriented x2, person and place, Glascow coma 15 no focal deficits] Course Course Course Narrative: I was informed by the nursing at 1849 that the patient had a rectal temp of 102.4. Quality Measures none Orders Category Date Time Status Bedside COVID-19 Antigen Test NOW Care 06/26/24 18:48 Completed Bedside Influenza A&B Antigen Test NOW Care 06/26/24 18:48 Completed EKG (ED ONLY) *Do not use* NOW Care 06/26/24 16:05 Completed EKG (ED Only) Stat Exams 06/26/24 16:05 Ordered US gall bladder Stat Exams 06/26/24 20:22 Completed XR chest 1V Stat Exams 06/26/24 16:05 Completed B-Type Natriuretic Peptide Stat Lab 06/26/24 16:40 Completed Blood Culture (Lab) Stat Lab 06/26/24 18:56 Received CBC Stat Lab 06/26/24 16:40 Completed Comprehensive Metabolic Panel Stat Lab 06/26/24 16:40 Completed Drug Screen,Urine Stat Lab 06/26/24 20:26 Completed LDH (Lactate Dehydrogenase) Stat Lab 06/26/24 16:40 Completed Lactic Acid [Lactate (Lactic Acid)] Stat Lab 06/26/24 18:56 Completed Lactic Acid, 3 HR Stat Lab 06/26/24 22:01 Ordered Magnesium Stat Lab 06/26/24 16:40 Completed Partial Thromboplastin Time Stat Lab 06/26/24 16:40 Completed Procalcitonin Stat Lab 06/26/24 18:56 Completed Prothrombin Time with INR Stat Lab 06/26/24 16:40 Completed Troponin I Stat Lab 06/26/24 16:40 Completed Acetaminophen Tab [Tylenol ES Tab] Med 06/26/24 18:48 Discontinued 1,000 mg PO X1 ONE Metoprolol Tartrate Inj [Lopressor Inj] Med 06/26/24 17:37 Discontinued 2 mg IVP X1 ONE Vital Signs Vital signs: Vital Signs Temperature 96.3 F L 06/26/24 16:17 Pulse Rate 92 06/26/24 16:17 Respiratory Rate 20 06/26/24 16:17 Blood Pressure 138/79 H 06/26/24 16:17 Pulse Oximetry (%) 100 06/26/24 16:17 Oxygen Delivery Method Nasal Cannula 06/26/24 16:17 Oxygen Flow Rate 4 06/26/24 16:17 MDM Patient data External records reviewed:: [facility] previous records and EMS form Clinical information provided by:: patient and EMS Social determinants that could affect healthcare access:: none Patient has the following chronic illnesses:: ESRD dialysis multiple abdominal abscesses A-fib How is presenting disease/condition affected by chronic disease/condition?: u neffected by Evaluation data The following diagnostics were reviewed and interpreted by me:: lab results and radiology exam(s) Lab and/or radiology exams considered but not ordered:: EKG performed at 1713 shows a ventricular rate 130 QRS of 8 7 QTc of 400 is A- fib RVR. CBC shows no acute leukocytosis anemia thrombocytopenia Coags show PT of 21.4 with an INR of 2.1 and a PTT greater than 139 CMP shows BUN of 25 creatinine of 2.5 no other significant electrolyte imbalances Lactic of 2.1 Total bili of 1.6 mild transaminitis elevation BNP of 686 Pro-Es of 1.55 UA is positive for opiates and THC Interpretation Summary: Patient had a core temp of 100.2, and the A-fib RVR has been mediated with Lopressor, and a little bit of fluid. Patient is awake alert. Patient actually assessed by Dr. Solis who discharged the patient recently and is familiar with the patient's case completely, there is no new finding, the patient has maintain oxygen saturations at 94 to 95% on room air without tachypnea. At this time I am comfortable discharging the patient home to continue with rehab and follow-up with dialysis. Medications Medications considered but not ordered:: None Medication administrations:: Medication Administration History Discontinued Medications Acetaminophen (Acetaminophen 500 Mg Tablet) 1,000 mg PO X1 ONE Stop: 06/26/24 18:49 Last Admin: 06/26/24 19:31 Dose: 1,000 mg Documented By: DUNIA Metoprolol Tartrate (Metoprolol Tartrate Inj 1 Mg/Ml Amp 5 Ml) 2 mg IVP X1 ONE Stop: 06/26/24 17:38 Last Admin: 06/26/24 18:27 Dose: 2 mg Documented By: RD None Consultations Consultation(s) initiated? (list below): No Diagnosis Differential Diagnosis ED Complaint MDM: Pneumonia fluid overload anxiety Most likely diagnosis given after review of the tests above:: Shortness of breath Admission Indicated Admission indicated?: not indicated Explain why admission is indicated or not indicated:: Stable for discharge Admission Request Was there a request for admission?: No Disposition Plan Disposition Plan: Discharge Discharge Attestation Discharge Attestation: The patient and all family members were given an opportunity to ask questions and understood the discharge instructions. Discharge instructions specifically effects, indications for sooner follow up or return to the emergency department, and the expected course of current diagnosis. Patient condition: Stable Medical Decision Making Differential Diagnosis Differential Diagnosis: Pneumonia fluid overload anxiety Lab Data 06/26/24 16:40 06/26/24 16:40 Labs: Lab Results 06/26/24 06/26/24 06/26/24 Range/Units 16:40 18:56 20:26 WBC 6.4 (3.6-11.0) Thou/mm3 RBC 4.65 (4.00-5.20) Miln/mm3 Hgb 12.7 (12.0-16.0) g/dL Hct 41.2 (36.0-46.0) % MCV 89 (80-100) fL MCH 27.3 (25.0-35.0) pg MCHC 30.8 L (31.0-37.0) g/dl RDW Std Deviation 73.5 H (36.4-46.3) fL Plt Count 235 (140-440) Thou/mm3 Neut % (Auto) 17 L (37-80) % Lymph % (Auto) 62 H (10-50) % [place] % (Auto) 19 H (0-12) % Eos % (Auto) 0 (0-10) % Baso % (Auto) 1 (0-2.5) % Neut # (Auto) 1.1 L (1.8-7.7) Thou/mm3 Lymph # (Auto) 3.9 (1.0-4.8) Thou/mm3 [place] # (Auto) 1.2 H (0.0-0.8) Thou/mm3 Eos # (Auto) 0.0 (0.0-0.5) Thou/mm3 Baso # (Auto) 0.1 (0.0-0.2) Thou/mm3 Immature Gran # (Auto) 0.05 H (0.00-0.00) Thou/mm3 Absolute Nucleated RBC 0.02 H (0.00-0.00) Thou/mm3 Immature Gran % 1 H (0-0) % Nucleated RBC % 0 (0) /100 WBC PT 21.4 H D (9.0-12.2) Seconds INR 2.1 H (0.9-1.3) APTT > 139.0 H* D (22.0-36.0) Seconds Sodium 138 (136-145) mMol/L Potassium 3.7 (3.4-5.1) mMol/L Chloride 100 (98-107) mMol/L Carbon Dioxide 21.5 (20.0-31.0) mMol/L Anion Gap 17 H (7-16) BUN 25 H (9-23) mg/dL Creatinine 2.5 H D (0.6-1.3) mg/dL Estim Creat Clear Calc Not Performed. eGFR 20 L (60 - ) See Note BUN/Creatinine Ratio 10 L (12-20) Ratio Glucose 109 H (74-106) mg/dL Calculated Osmolality 281 (275-295) Lactic Acid 2.1 H (0.4-2.0) mMol/L Calcium 9.6 (8.3-10.6) mg/dL Corrected Calcium 9.6 (8.5-10.1) mg/dL Magnesium 2.0 (1.6-2.6) mg/dL Total Bilirubin 1.6 H (0.3-1.2) mg/dL AST 32 (0-34) U/L ALT 7 L (10-49) U/L Alkaline Phosphatase 122 H (46-116) U/L Lactate Dehydrogenase 353 H (120-246) U/L Troponin I 0.044 (0.0-0.045) ng/mL B-Natriuretic Peptide 686 H* (0-100) pg/mL Total Protein 8.1 (5.7-8.2) gm/dL Albumin 4.2 (3.4-4.8) gm/dL Globulin 3.9 H (2.3-3.5) gm/dL Albumin/Globulin Ratio 1.1 L (1.2-2.2) Procalcitonin 1.55 H (0.0-0.49) ng/ml Urine Opiates Screen Positive A (Negative) Urine Fentanyl Screen Negative (Negative) Ur Barbiturates Screen Negative (Negative) U Amphetamin/Meth Scrn Negative (Negative) U Benzodiazepines Scrn Negative (Negative) U Cocaine Metab Screen Negative (Negative) U Marijuana (THC) Screen Positive A (Negative) Discharge Plan Plan Patient Disposition: HOME (Self Care) Patient condition on transfer: Stable Prescriptions/Referrals Prescriptions/Med Rec: No Action amiodarone 200 mg tablet 200 mg PO BID 30 Days Qty: 60 0RF Rx Instructions: Hold for SBP <110 or HR<60 Eliquis 5 mg tablet 5 mg PO BID 30 Days Qty: 60 0RF pantoprazole [Protonix] 40 mg tablet,delayed release (DR/EC) 40 mg PO BID Qty: 60 0RF insulin glargine-yfgn 100 unit/mL (3 mL) insulin pen 12 unit subcut QDAY Qty: 15 0RF (DME) pen needle, diabetic [1st Tier Unifine Pentips] 29 gauge x 1/2 needle See Rx Instructions .ROUTE Qty: 100 0RF Rx Instructions: As directed dronabinol 10 mg capsule 10 mg PO BIDAC 30 Days Qty: 60 0RF guaifenesin 100 mg/5 mL Liquid 200 mg PO QID 14 Days Qty: 560 0RF sennosides [Senna Lax] 8.6 mg Tablet 8.6 mg PO QDAY Qty: 14 0RF polyethylene glycol 3350 [HealthyLax] 17 gram Powder In Packet 17 g PO BID PRN (Reason: constipation) 30 Days Qty: 5 0RF fluconazole 200 mg tablet 200 mg PO QDAY Qty: 8 0RF Rx Instructions: End Date 07/01/24 bisacodyl [Dulcolax (bisacodyl)] 10 mg Suppository 10 mg MT QDAY PRN (Reason: Constipation) Rx Instructions: To be administered the following shift if MOM is ineffective Fleet Enema 19-7 gram/118 mL Enema 118 ml MT QDAY mirtazapine 15 mg Tablet 15 mg PO HS sodium bicarbonate 650 mg tablet 650 mg PO QDAY metoprolol succinate 25 mg capsule,sprinkle,ER 24hr 25 mg PO QDAY Qty: 30 0RF Rx Instructions: Hold if blood pressure less than 100 systolic or heart rate less than 65/min midodrine 5 mg tablet 5 mg PO TID PRN (Reason: hypotension) Qty: 10 0RF Rx Instructions: Currently blood pressure stable, may require midodrine if systolic blood pressure less than 100, hold if blood pressure more than 100 or heart rate less than 60. Referrals: Chuy Soria MD [Physician] - In 1 week No Primary/Family,Physician [Primary Care Provider] - In 1 week Problem List Clinical Impression: Shortness of breath Patient/Caregiver Discharge Instructions Education Materials: ED Shortness of Breath (Dyspnea) Additional Instructions: Contacted dialysis physician for completion of dialysis that was missed today. Print Language: [employer] Stand Alone Forms: Kristi Award Info., Patient Portal Info Letter PA/ACCOUNTANT BOOKKEEPER Supervising Physician PA/ACCOUNTANT BOOKKEEPER Supervising Physician: Colt Durham ENP
[2024-06-26 16:51] LABS: Basophils # (Auto) 0.1 Thou/mm3 (0.0-0.2); Basophils % (Auto) 1 % (0-2.5); Eosinophils % (Auto) 0 % (0-10); Hematocrit 41.2 % (36.0-46.0); Hemoglobin 12.7 g/dL (12.0-16.0); Immature Granulocytes % (Auto) 1 % (0-0); Immature Granulocytes Auto 0.05 Thou/mm3 (0.00-0.00); Lymphocytes # (Auto) 3.9 Thou/mm3 (1.0-4.8); Lymphocytes % (Auto) 62 % (10-50); Mean Corpuscular HGB Conc 30.8 g/dl (31.0-37.0); Mean Corpuscular Hemoglobin 27.3 pg (25.0-35.0); Mean Corpuscular Volume 89 fL (80-100); Monocytes # (Auto) 1.2 Thou/mm3 (0.0-0.8); Monocytes % (Auto) 19 % (0-12); Neutrophils # (Auto) 1.1 Thou/mm3 (1.8-7.7); Neutrophils % (Auto) 17 % (37-80); Nucleated Red Blood Cell # 0.02 Thou/mm3 (0.00-0.00); Nucleated Red Blood Cell % 0 /100 WBC (0); Platelet Count 235 Thou/mm3 (140-440); RDW Standard Deviation 73.5 fL (36.4-46.3); Red Blood Count 4.65 Miln/mm3 (4.00-5.20); White Blood Count 6.4 Thou/mm3 (3.6-11.0)
[2024-06-26 17:24] LABS: Alanine Aminotransferase 7 U/L (10-49); Albumin, Serum 4.2 gm/dL (3.4-4.8); Albumin/Globulin Ratio 1.1 (1.2-2.2); Alkaline Phosphatase 122 U/L (46-116); Anion Gap 17 (7-16); Aspartate Amino Transferase 32 U/L (0-34); BUN/Creatinine Ratio 10 Ratio (12-20); Bilirubin,Total 1.6 mg/dL (0.3-1.2); Blood Urea Nitrogen 25 mg/dL (9-23); Calcium 9.6 mg/dL (8.3-10.6); Calcium (Corrected) 9.6 mg/dL (8.5-10.1); Carbon Dioxide 21.5 mMol/L (20.0-31.0); Chloride 100 mMol/L (98-107); Creatinine (Component) 2.5 mg/dL (0.6-1.3); Globulin 3.9 gm/dL (2.3-3.5); Glucose 109 mg/dL (74-106); LDH (Lactate Dehydrogenase) 353 U/L (120-246); Osmolality,Calculated 281 (275-295); Potassium 3.7 mMol/L (3.4-5.1); Sodium 138 mMol/L (136-145); Total Protein 8.1 gm/dL (5.7-8.2); Troponin I 0.044 ng/mL (0.0-0.045); eGFR 20 See Note
[2024-06-26 17:46] LABS: B-Type Natriuretic Peptide 686 pg/mL (0-100)
[2024-06-26 18:13] LABS: INR 2.1 (0.9-1.3); Prothrombin Time 21.4 Seconds (9.0-12.2)
[2024-06-26 18:17] LABS: Partial Thromboplastin Time > 139.0 Seconds (22.0-36.0)
[2024-06-26] MEDS: METOPROLOL TARTRATE INJ 1 MG/ML AMP 5 ML 2 MG IVP (18:27)
[2024-06-26 19:01] LABS: Lactate (Lactic Acid) 2.1 mMol/L (0.4-2.0)
[2024-06-26] MEDS: ACETAMINOPHEN 500 MG TABLET 1000 MG PO (19:31)
[2024-06-26 19:32] LABS: Procalcitonin 1.55 ng/ml (0.0-0.49)
--- NOTE | 2024-06-26 20:22 | XR_ITS ---
Examination: Abdomen sonogram, Limited Date and time of exam: June 26, 2024 2033 hours INDICATIONS: Elevated liver function tests on laboratory examination today Technique: Real-time cortez scale transabdominal sonographic images of the upper abdomen obtained. Findings: Gallbladder sludge Negative for gallstones Gallbladder wall 0.2 cm Common bile duct 0.4 cm Pancreatic head 2.3 cm Liver 11.5 cm fatty infiltration lobular contour Normal hepatopedal portal venous flow Patent IVC IMPRESSION: Gallbladder sludge Negative for cholelithiasis, negative for cholecystitis Primary hepatocellular disease
--- NOTE | 2024-06-26 20:33 | PC.NURSE ---
Pt's daughter arrived to bedside.
[2024-06-26 21:06] LABS: Amphetamine/Methamp Scrn,U Negative (Negative); Barbiturate Screen,Urine Negative (Negative); Benzodiazepines Screen,Urine Negative (Negative); Benzoylecgonine Screen, Ur Negative (Negative); Fentanyl Screen,Urine Negative (Negative); Opiate Screen,Urine Positive (Negative); THC Screen,Urine Positive (Negative)
[2024-06-26 22:01] LABS: Reflex Lactate? Y
== END 2024-06-26 21:48 | disposition home or self-care (01) ==
PROVIDERS: Registered Nurse General Practice; Emergency Provider Emergency Medicine
DX: R06.02 Shortness of breath (principal); I48.91 Unspecified atrial fibrillation; I44.4 Left anterior fascicular block; E78.00 Pure hypercholesterolemia, unspecified; Z99.2 Dependence on renal dialysis; Z79.01 Long term (current) use of anticoagulants; E11.22 Type 2 diabetes mellitus with diabetic chronic kidney disease; I12.0 Hypertensive chronic kidney disease with stage 5 chronic kidney disease or end stage renal disease; N18.6 End stage renal disease; Z79.4 Long term (current) use of insulin
CPT/HCPCS: 36415; 71045; 76705; 80053; 80307; 83605; 83615; 83735; 83880; 84145; 84484; 85025; 85610; 85730; 87040; 87400; 87811; 93005; 99284; J3490; A9270

== ENCOUNTER 2024-06-29 11:06 | Outpatient (AMB) | payer MEDICARE, MEDICAID, SELFPAY ==
--- NOTE | 2024-06-29 11:29 | PD.GSCLVISIT ---
Vital Signs - [facility] 06/29/24 11:30 06/29/24 11:35 BP 128/83 128/83 Blood Pressure Source Automatic Cuff Automatic Cuff Blood Pressure Location Right Upper Arm Left Upper Arm Position Sitting Sitting Respiration 20 18 Pulse 144 H 144 H Pulse Source Monitor Monitor Temp 97.7 F 97.1 F Temp Source Temporal Artery Scan Temporal Artery Scan Pulse Oximetry (%) 98 95 Oxygen Delivery Method Room Air Room Air Med/Allergies Allergies & Medications Allergies No Known Allergies Allergy (Verified 06/29/24 11:35) Medication Reconciliation amiodarone 200 mg tablet 200 mg PO BID 30 days #60 tabs 06/08/24 [Rx Confirmed 06/29/24] apixaban 5 mg tablet (Eliquis) 5 mg PO BID 30 days #60 tabs 06/08/24 [Rx Confirmed 06/29/24] insulin glargine-yfgn 100 unit/mL (3 mL) subcutaneous pen 12 unit (0.12 mL) subcut QDAY #15 mL 06/08/24 [Rx Confirmed 06/29/24] pantoprazole 40 mg tablet,delayed release (Protonix) 40 mg PO BID #60 tabs 06/08/24 [Rx Confirmed 06/29/24] pen needle, diabetic 29 gauge x 1/2 (1st Tier Unifine Pentips) #100 ea 06/08/24 [Rx Confirmed 06/29/24] dronabinol 10 mg capsule 10 mg PO BIDAC 30 days #60 caps 06/16/24 [Rx Confirmed 06/29/24] guaifenesin 100 mg/5 mL oral liquid 200 mg (10 mL) PO QID 14 days #560 mL 06/16/24 [Rx Confirmed 06/29/24] fluconazole 200 mg tablet 200 mg PO QDAY #8 tabs 06/17/24 [Rx Confirmed 06/29/24] polyethylene glycol 3350 17 gram oral powder packet (HealthyLax) 17 g PO BID PRN constipation 30 days #5 ea 06/17/24 [Rx Confirmed 06/29/24] sennosides 8.6 mg tablet (Senna Lax) 8.6 mg PO QDAY #14 tabs 06/17/24 [Rx Confirmed 06/29/24] bisacodyl 10 mg rectal suppository (Dulcolax (bisacodyl)) 10 mg TN QDAY PRN Constipation 06/25/24 [History Confirmed 06/29/24] metoprolol succinate 25 mg capsule sprinkle, ext. release 24 hr 25 mg PO QDAY #30 ea 06/25/24 [Rx Confirmed 06/29/24] midodrine 5 mg tablet 5 mg PO TID PRN hypotension #10 tabs 06/25/24 [Rx Confirmed 06/29/24] mirtazapine 15 mg tablet 15 mg PO HS 06/25/24 [History Confirmed 06/29/24] sodium bicarbonate 650 mg tablet 650 mg PO QDAY 06/25/24 [History Confirmed 06/29/24] sodium phosphates 19 gram-7 gram/118 mL enema (Fleet Enema) 118 ml TN QDAY 06/25/24 [History Confirmed 06/29/24] MA Intake Visit Data Collection New Patient or Established: Established Patient (seen at [facility] within 3 years) Seen by Clinical Staff ONLY (RN/MA): No Reason for Visit:: F/U SEPSIS Pain Present Currently: No Pain Scale Used: Lundberg-Canas/Numerical Director Life Required: No PCP or OBGYN visit in last 3 months: Yes Hx Now: No Do You Feel Safe at Home: Yes Authorities Contacted: N/A Smoking Status Smoking Status: Never smoker Immunization / Flu Flu Vaccine in the Last 12 Months: No Flu Vaccine Exclusion Criteria: No Exclusion Criteria Past Medical History Past Medical History NEUROLOGIC: Negative Seizures CARDIAC: Positive Cardiac Disorders, Hypercholesterolemia and Hypertension; Negative Congestive Heart Failure RESPIRATORY: Negative Chronic Obstructive Pulmonary Disease (COPD) or Asthma GASTROINTESTINAL: Positive Ulcer GENITOURINARY: Positive Genitourinary Disorders, Renal Disease and Dialysis MUSCULOSKELETAL: Positive Musculoskeletal Disorders ENDOCRINE: Positive Endocrine Disorders and Diabetes Mellitus Type 2; Negative Diabetes Mellitus Type 1 HEMATOLOGIC: Negative Sickle Cell Disease OTHER HISTORY: Negative Blood Transfusions, Blood Transfusion Reaction, Anesthesia Reactions or Cancer Surgical History SURGICAL: Positive Abdominal Surgery Social History SMOKING STATUS: Smoking status: Never smoker SUBSTANCE USE: Substance use type: does not use ALCOHOL: Alcohol Intake: Never HOUSING: Housing: House LIVES WITH: Lives With: Family Travel Risk Travel Hx Recent Travel: No HPI HPI Narrative 69F s/p laparotomy for perforated gastric ulcer 05/14 here for planned follow up. Pt is accompanied by her daughter as well as a caregiver from [facility]. Pt has had two recent ER visits, one after a fall and one for shortness of breath but she did not require hospitalization. Pt has been reporting back pain, no abdominal pain, is eating minimally and having regular BMs. Today her HR is irregular, pt denies any chest pain or shortness of breath but is feeling weak. She is working with PT but has not yet been able to stand ROS Review of Systems Systems Reviewed: All systems reviewed, normal except as documented Objective/Exam General General Appearance: alert, cooperative and well groomed Resp Respiratory exam: Absent respiratory distress Abdominal Abdominal exam: Present soft and incision (midline incision with dehiscences superiorly and inferiorly. Superior aspect of wound with beefy red granulation tissue, no drainage, no surrounding erythema; inferior aspect of wound with serosanguinous drainage, no erythema or fluctuance. Inferior aspect of wound packed with gauze); Absent distention or tenderness Assessment & Plan Diagnosis / Problem List (1) Perforated gastric ulcer: Status: Acute Assessment & Plan: 69F s/p laparotomy for perforated gastric ulcer 05/14 here for planned follow up, gradually recovering. I provided wound care instructions to the facility and will follow up in 3 weeks Advanced Care Planning Advance care planning discussed with:: patient, child and other Office Procedures GNS Level of Care Nursing/Assessment Patient Status: Established Patient Nursing Assessment/Reassesment: Medication Reconciliation, Update PMH in EMR and Vital Signs Coordination of Care: Complex Care and Chronic Disease 1-5, Education Complex Pt/Fam, Consent,records obtained, informed consent, Results/Orders obtained and Staff clarify orders Established Patient Charge Established Patient Point Assignment: 95 Established Patient Point Charge: EP Level 3 (80-115) Patient Portal Questionaires Social History Living Situation History Housing: House Tobacco History Smoking Status: Never smoker Alcohol History Alcohol Intake: Never Domestic Abuse History Do You Feel Safe at Home: Yes Review of Systems Report any current symptoms Only answer those that you have currently: Past Medical History Past Medical History Have you ever been diagnosed with any of the following: Neurological Problems Seizures: No Cardiology Problems Hypercholesterolemia: Yes Congestive Heart Failure: No Hypertension: Yes Respiratory Problems Chronic Obstructive Pulmonary Disease (COPD): No Asthma: No Stomache/Intestinal Problems Ulcer: Yes Genital/Urinary Problems Renal Disease: Yes Dialysis: Yes Endocrine Problems Diabetes Mellitus Type 1: No Diabetes Mellitus Type 2: Yes Blood Problems Sickle Cell Disease: No Other Problems Blood Transfusions: No Blood Transfusion Reaction: No Anesthesia Reactions: No Cancer: No
[2024-06-29 11:30] VITALS: BP 128/83; PULSE 144; RESP 20; TEMP 36.5; O2SAT 98
[2024-06-29 11:35] VITALS: BP 128/83; PULSE 144; RESP 18; TEMP 36.2; O2SAT 95
== END 2024-06-29 11:49 | disposition home or self-care (01) ==
LOC: HODSRG 11:06
PROVIDERS: PCP Student in an Organized Health Care Education/Training Program; Referring Provider Student in an Organized Health Care Education/Training Program; Supervising Provider Surgery; Visit Provider Surgery
DX: K25.5 Chronic or unspecified gastric ulcer with perforation (principal)
CPT/HCPCS: 99213; G0463

== ENCOUNTER 2024-07-07 20:21 | Emergency (ER) | payer MEDICARE, MEDICAID, SELFPAY ==
--- NOTE | 2024-07-07 20:47 | EDNOTE_ITS ---
ED General RME/HPI General Chief complaint: Skin/Abscess/Foreign Body Stated complaint: RASH Time Seen by Provider: 07/07/24 20:46 Arrival date/time: 07/07/24 20:21 RME / HPI RME / HPI narrative: 69-year-old female patient with significant history of hypertension and end- stage renal disease, on hemodialysis, was sent to us by dialysis center for erythematous rashes. Onset of symptoms for several minutes, as erythematous rash noted on the back, spreading to the anterior chest, with itchiness. Severity of symptoms moderate. Patient denies any shortness of breath or difficulty swallowing. According to EMS,they had to stop the dialysis due to a rash. No medication was given prior to arrival. Related Data Home Medications ?Medication ?Instructions ?Recorded ?Confirmed bisacodyl 10 mg rectal suppository 10 mg NV QDAY PRN C onstipation 06/25/24 06/29/24 (Dulcolax (bisacodyl)) mirtazapine 15 mg tablet 15 mg PO HS 06/25/24 5 sodium bicarbonate 650 mg tablet 650 mg PO QDAY 06/29/24 sodium phosphates 19 gram-7 118 ml NV QDAY 06/25/24 gram/118 mL enema (Fleet Enema) Previous Rx's ?Medication ?Instructions ?Recorded amiodarone 200 mg tablet 200 mg PO BID 30 days #60 ta bs 06/08/24 apixaban 5 mg tablet (Eliquis) 5 mg PO BID 30 days #60 tabs 06/08/24 insulin glargine-yfgn 100 unit/mL 12 unit (0.12 mL) aguayo bcut QDAY #15 06/08/24 (3 mL) subcutaneous pen mL pantoprazole 40 mg tablet,delayed 40 mg PO BID #60 tab s 06/08/24 release (Protonix) pen needle, diabetic 29 gauge x #100 ea 06/08/2406/01 (1st Tier Unifine Pentips) dronabinol 10 mg capsule 10 mg PO BIDAC 30 days #60 c aps 06/16/24 fluconazole 200 mg tablet 200 mg PO QDAY #8 tabs 06/17 polyethylene glycol 3350 17 gram 17 g PO BID PRN const ipation 30 06/17/24 oral powder packet (HealthyLax) days #5 ea sennosides 8.6 mg tablet (Senna 8.6 mg PO QDAY #14 tab s 06/17/24 Lax) metoprolol succinate 25 mg capsule 25 mg PO QDAY #30 e a 06/25/24 sprinkle, ext. release 24 hr midodrine 5 mg tablet 5 mg PO TID PRN hypotension #10 06/25/24 tabs Allergies Allergy/AdvReac Type Severity Reaction Status Date / Time No Known Allergies Allergy Verified 06/29/24 11:35 Review of Systems Review of Systems Narrative Review of Systems: Review of system reviewed and within normal limits except mentioned in HPI ED Exam Narrative Physical exam: VITAL SIGNS: Reviewed. GENERAL APPEARANCE: Alert and interactive, follows commands, no acute distress, HEAD AND FACE: Non-traumatic. ENT: PERRL, pink conjunctivitis, eyelid no trauma, Mucous membrane moist. NECK: Supple, nontender, no nuchal rigidity. CHEST: No tenderness, no crepitus, no paradoxical movement, no retractions. LUNGS: Clear, well ventilated, symmetric, no rales, no wheezing, no ronchi, no stridor, good breath sounds bilaterally. HEART: Regular rate, regular rhythm, no murmur, no gallops. ABDOMEN: Soft, positive bowel sounds, nondistended, no guarding, nontender, no rebound, no masses, RECTAL: Deferred. GENITAL: Deferred. NEUROLOGICAL: Gross motor function intact sensory function intact, Appropriate for age. MUSCULOSKELETAL: low back nontender, full range of motion. EXTREMITIES: Nontender, full range of motion. SKIN: Color pink, dry, erythematous maculopapular rash scattered all over, no lacerations, no abrasions, no contusions. LYMPHATICS: Deferred. Course Quality Measures none Orders Category Date Time Status DiphenhydrAMINE INJ [Benadryl Inj] Med 07/07/24 20:46 Active 25 mg IV Q2HR PRN Famotidine Inj [Pepcid Inj] Med 07/07/24 20:46 Discontinued 20 mg IVP X1 ONE MethylPREDNISolone.* [SoluMEDROL Inj] Med 07/07/24 20:46 Discontinued 125 mg IVP X1 ONE Vital Signs Vital signs: Vital Signs Temperature 98.2 F 07/07/24 21:49 Pulse Rate 97 07/07/24 21:49 Respiratory Rate 24 H 07/07/24 21:49 Blood Pressure 122/76 07/07/24 21:49 Pulse Oximetry (%) 95 07/07/24 21:49 Oxygen Delivery Method Room Air 07/07/24 21:49 [facility] Patient data External records reviewed:: [facility] previous records Clinical information provided by:: patient and family Social determinants that could affect healthcare access:: none Patient has the following chronic illnesses:: End-stage renal disease on hemodialysis hypertension diabetes mellitus How is presenting disease/condition affected by chronic disease/condition?: exacerbated by Evaluation data The following diagnostics were reviewed and interpreted by me:: other (specify) Lab and/or radiology exams considered but not ordered:: None Interpretation Summary: None Medications Medications considered but not ordered:: None Medication administrations:: Medication Administration History Diphenhydramine HCl (Diphenhydramine Inj 50 Mg/Ml Vial) 25 mg IV Q2HR PRN PRN Reason: ITCHING Stop: 08/06/24 20:45 Last Admin: 07/07/24 21:54 Dose: 25 mg Documented By: ALEKSANDRA Discontinued Medications Famotidine (Famotidine Inj 10 Mg/Ml Vial 2 Ml) 20 mg IVP X1 ONE Stop: 07/07/24 20:47 Last Admin: 07/07/24 21:54 Dose: 20 mg Documented By: ALEKSANDRA Methylprednisolone Sodium Succinate (Methylprednisolone Sod Succ 62.5 Mg/Ml 2ml Vial) 125 mg IVP X1 ONE Stop: 07/07/24 20:47 Last Admin: 07/07/24 21:54 Dose: 125 mg Documented By: ALEKSANDRA Solu-Medrol IV, Pepcid and Benadryl Consultations Consultation(s) initiated? (list below): Yes Diagnosis Differential Diagnosis ED Complaint MDM: Viral exanthem, drug rash, rash secondary to allergy Most likely diagnosis given after review of the tests above:: Right secondary to allergy Admission Indicated Admission indicated?: not indicated Explain why admission is indicated or not indicated:: Stable Admission Request Was there a request for admission?: No Disposition Plan Disposition Plan: Discharge Discharge Attestation Discharge Attestation: The patient and all family members were given an opportunity to ask questions and understood the discharge instructions. Discharge instructions specifically effects, indications for sooner follow up or return to the emergency department, and the expected course of current diagnosis. Patient condition: Stable Medical Decision Making MDM Narrative MDM Narrative: 69-year-old female patient with significant history of hypertension and end- stage renal disease, on hemodialysis, was sent to us by dialysis center for erythematous rashes. Onset of symptoms for several minutes, as erythematous rash noted on the back, spreading to the anterior chest, with itchiness. Severity of symptoms moderate. Patient denies any shortness of breath or difficulty swallowing. According to EMS,they had to stop the dialysis due to a rash. No medication was given prior to arrival. Patient received IV Solu-Medrol, Benadryl and Pepcid on multiple reevaluation, significant improvement of breast noted. Patient stable for discharge back to care home Differential Diagnosis Differential Diagnosis: Viral exanthem, drug rash, rash secondary to allergy Discharge Plan Plan Patient Disposition: HOME (Self Care) Disposition Comment: Stable Prescriptions/Referrals Prescriptions/Med Rec: No Action amiodarone 200 mg tablet 200 mg PO BID 30 Days Qty: 60 0RF Rx Instructions: Hold for SBP <110 or HR<60 Eliquis 5 mg tablet 5 mg PO BID 30 Days Qty: 60 0RF pantoprazole [Protonix] 40 mg tablet,delayed release (DR/EC) 40 mg PO BID Qty: 60 0RF insulin glargine-yfgn 100 unit/mL (3 mL) insulin pen 12 unit subcut QDAY Qty: 15 0RF (DME) pen needle, diabetic [1st Tier Unifine Pentips] 29 gauge x 1/2 needle See Rx Instructions .Route Qty: 100 0RF Rx Instructions: As directed dronabinol 10 mg capsule 10 mg PO BIDAC 30 Days Qty: 60 0RF sennosides [Senna Lax] 8.6 mg Tablet 8.6 mg PO QDAY Qty: 14 0RF polyethylene glycol 3350 [HealthyLax] 17 gram Powder In Packet 17 g PO BID PRN (Reason: constipation) 30 Days Qty: 5 0RF fluconazole 200 mg tablet 200 mg PO QDAY Qty: 8 0RF Rx Instructions: End Date 07/01/24 bisacodyl [Dulcolax (bisacodyl)] 10 mg Suppository 10 mg NV QDAY PRN (Reason: Constipation) Rx Instructions: To be administered the following shift if MOM is ineffective Fleet Enema 19-7 gram/118 mL Enema 118 ml NV QDAY mirtazapine 15 mg Tablet 15 mg PO HS sodium bicarbonate 650 mg tablet 650 mg PO QDAY metoprolol succinate 25 mg capsule,sprinkle,ER 24hr 25 mg PO QDAY Qty: 30 0RF Rx Instructions: Hold if blood pressure less than 100 systolic or heart rate less than 65/min midodrine 5 mg tablet 5 mg PO TID PRN (Reason: hypotension) Qty: 10 0RF Rx Instructions: Currently blood pressure stable, may require midodrine if systolic blood pressure less than 100, hold if blood pressure more than 100 or heart rate less than 60. Referrals: Jaxon Mosley MD [Primary Care Provider] - In 1 week Problem List Clinical Impression: Rash Patient/Caregiver Discharge Instructions Discharge Activity: activity as tolerated Education Materials: ED Drug Reaction, Other Additional Instructions: Thank you for the opportunity for serving you today. You are stable for discharged . You are advised to: Follow-up with your PCP in 1 to 2 days Return to ED for worsening of symptoms Increase oral fluids Continue giving Benadryl as needed. Print Language: Hmong Stand Alone Forms: Kristi Award Info., Patient Portal Info Letter PA/COOK 3 PASTRY Supervising Physician PA/COOK 3 PASTRY Supervising Physician: MD Los
[2024-07-07 21:17] VITALS: PULSE 94; RESP 16; O2SAT 97
[2024-07-07 21:49] VITALS: BP 122/76; PULSE 97; RESP 24; TEMP 36.8; O2SAT 95; BMI 32.4
[2024-07-07] MEDS: DiphenhydrAMINE INJ 50 MG/ML VIAL 25 MG IV (21:54)
[2024-07-07] MEDS: MethylPREDNISolone SOD SUCC 62.5 MG/ML 2ML VIAL 125 MG IVP (21:54)
[2024-07-07] MEDS: FAMOTIDINE INJ 10 MG/ML VIAL 2 ML 20 MG IVP (21:54)
--- NOTE | 2024-07-08 00:50 | PC.NURSE ---
REPORT GIVEN TO [facility].
== END 2024-07-08 00:53 | disposition skilled nursing facility (03) ==
PROVIDERS: Emergency Provider Emergency Medicine; PCP Student in an Organized Health Care Education/Training Program
DX: R21 Rash and other nonspecific skin eruption (principal); I12.0 Hypertensive chronic kidney disease with stage 5 chronic kidney disease or end stage renal disease; N18.6 End stage renal disease; E11.22 Type 2 diabetes mellitus with diabetic chronic kidney disease; Z99.2 Dependence on renal dialysis
CPT/HCPCS: 96374; 96375; 99284; J1200; J2919; J3490

== ENCOUNTER 2024-07-12 14:58 | Inpatient (IN) | payer MEDICARE, MEDICAID, SELFPAY ==
[2024-07-12] VITALS (11 sets, daily range): BP systolic 105–137; BP diastolic 56–88; PULSE 79–117; RESP 18–96; TEMP 36.4–37.5; O2SAT 94–99
--- NOTE | 2024-07-12 15:52 | PD.EDNV ---
Nausea/Vomit./Diarrhea-RME/HPI General Chief complaint: Abdominal Pain Stated complaint: ABD PAIN Time Seen by Provider: 07/12/24 15:34 Arrival date/time: 07/12/24 14:58 RME / HPI RME / HPI Narrative: DR. FERNANDEZ MAIN ED EVALUATION: 69 year old female presents to the Emergency Department [facility] with complaint of vomiting. Patient vomits every time she eats. Patient also eating very little, 2-3 bites only. No diarrhea or constipation. No other symptoms reported. PMHx: Hypertension and chronic kidney disease. Laparotomy by Dr. Santana for perforated gastric ulcer 05/14/2024. Social Hx: No tobacco, alcohol, or substance use. Related Data Home Medications ?Medication ?Instructions ?Recorded ?Confirmed bisacodyl 10 mg rectal suppository 10 mg VA QDAY PRN Constipation 06/25/24 06/29/24 (Dulcolax (bisacodyl)) mirtazapine 15 mg tablet 15 mg PO HS 06/25/24 06/29/24 sodium bicarbonate 650 mg tablet 650 mg PO QDAY 06/25/24 06/29/24 sodium phosphates 19 gram-7 118 ml VA QDAY 06/25/24 06/29/24 gram/118 mL enema (Fleet Enema) Previous Rx's ?Medication ?Instructions ?Recorded insulin glargine-yfgn 100 unit/mL 12 unit (0.12 mL) subcut QDAY #15 06/08/24 (3 mL) subcutaneous pen mL pantoprazole 40 mg tablet,delayed 40 mg PO BID #60 tabs 06/08/24 release (Protonix) pen needle, diabetic 29 gauge x #100 ea 06/08/24 1/2 (1st Tier Unifine Pentips) dronabinol 10 mg capsule 10 mg PO BIDAC 30 days #60 caps 06/16/24 fluconazole 200 mg tablet 200 mg PO QDAY #8 tabs 06/17/24 polyethylene glycol 3350 17 gram 17 g PO BID PRN constipation 30 06/17/24 oral powder packet (HealthyLax) days #5 ea sennosides 8.6 mg tablet (Senna 8.6 mg PO QDAY #14 tabs 06/17/24 Lax) metoprolol succinate 25 mg capsule 25 mg PO QDAY #30 ea 01/26/25 sprinkle, ext. release 24 hr midodrine 5 mg tablet 5 mg PO TID PRN hypotension #10 06/25/24 tabs Allergies Allergy/AdvReac Type Severity Reaction Status Date / Time No Known Allergies Allergy Verified 07/12/24 16:03 Review of Systems Review of Systems Systems Reviewed: All systems reviewed, normal except as documented Narrative Review of Systems: GEN: No fever, no chills, no weight loss, + decreased appetite EYES: No discharge, no visual changes, no pain HEENT: No ear pain, no congestion, no sore throat PULM: No shortness of breath, no cough, no congestion CV: No chest pain, no dyspnea on exertion, no palpitations GI: no nausea, + vomiting, no diarrhea, no pain, no constipation : No frequency, no urgency and no dysuria MUSC/SKEL: No joint pain, no back pain SKIN: No rash PSYCH: No hallucinations, no depression HEME/LYMPH: No easy bleeding or bruising tendencies NEURO: No weakness, no headache Past Medical History Past Medical History CARDIAC: Positive Cardiac Disorders, Hypercholesterolemia and Hypertension GASTROINTESTINAL: Positive Ulcer GENITOURINARY: Positive Genitourinary Disorders, Renal Disease and Dialysis MUSCULOSKELETAL: Positive Musculoskeletal Disorders ENDOCRINE: Positive Endocrine Disorders and Diabetes Mellitus Type 2 Surgical History SURGICAL: Positive Abdominal Surgery Social History SMOKING STATUS: Never smoker SUBSTANCE USE: does not use ALCOHOL: Never ED Exam Narrative Physical exam: GENERAL APPEARANCE: alert and oriented x 4, well-developed, well-nourished, no acute distress VITALS: All vitals were reviewed and the pulse ox is 95% on room air, which is normal according to my interpretation. HEENT: Normocephalic, atraumatic; pupils equal, round, reactive to light; EOMI; mucous membranes pink, moist; oropharynx clear NECK: Supple LUNGS: CTABL; no wheezes, no rales, no rhonchi HEART: Regular rate, regular rhythm; normal S1, S2; no murmurs ABDOMEN: mildly distended; normal BS; mild diffuse tenderness, no guarding, no rebound; no masses, no organomegaly, no hernia BACK: no CVA tenderness EXTREMITIES: atraumatic; no edema NEUROLOGIC: awake; alert and oriented x4; cranial nerves II-XII grossly intact; no focal sensory or motor deficits PSYCHIATRIC: appropriate mood and affect SKIN: warm, dry, normal color; diffuse maculopapular rash on the abdomen that is chronic Course Course Course Narrative: 1800: Patient was signed out to Dr. Ivey. Past medical, surgical, social and family history reviewed. Vitals and home medications reviewed. Results and treatment plan discussed. They will assume the care of the patient at this time and will follow the patient, pending EKG, abdomen/pelvis CT, remainder of labs, and final disposition. Quality Measures none Orders Category Date Time Status COVID-19 Screening Questionnaire NOW Care 07/12/24 19:43 Active Assembly Leader NOW Care 07/12/24 16:35 Active Decision to Admit X1 Care 07/12/24 19:43 Active EKG (ED ONLY) *Do not use* NOW Care 07/12/24 16:35 Completed Consult to Gastroenterology Stat Cons 07/12/24 19:[address] abdomen pelvis wo con Stat Exams 07/12/24 16:39 Completed EKG (ED Only) Stat Exams 07/12/24 16:35 Ordered XR chest 1V portable Stat Exams 07/12/24 16:35 Completed B-Type Natriuretic Peptide Stat Lab 07/12/24 16:58 Completed Blood Culture (Lab) Stat Lab 07/12/24 17:05 Received CBC Stat Lab 07/12/24 16:58 Completed Comprehensive Metabolic Panel Stat Lab 07/12/24 16:58 Completed Lactate (Lactic Acid) Stat Lab 07/12/24 16:58 Completed Lactic Acid, 3 HR Stat Lab 07/12/24 20:30 Completed Lipase Stat Lab 07/12/24 16:58 Completed Magnesium Stat Lab 07/12/24 16:58 Completed Partial Thromboplastin Time Stat Lab 07/12/24 16:58 Completed Procalcitonin Stat Lab 07/12/24 16:58 Completed Prothrombin Time with INR Stat Lab 07/12/24 16:58 Completed Troponin I Stat Lab 07/12/24 16:58 Completed UA, C/S IF [Urinalysis, C/S if Indicated] Stat Lab 07/13/24 01:50 Completed Urine Culture Stat Lab 07/13/24 01:50 Received DILTIAZEM in D5W 125 MG Med 07/12/24 18:31 Discontinued 125 mg in 125 ml IV 5 mg/hr DILTIAZEM in D5W 125 MG Med 07/12/24 19:00 Discontinued 125 mg in 125 ml IV 5 mg/hr Diltiazem Inj [Cardizem Inj] Med 07/12/24 18:26 Discontinued 125 mg IV .STK-MED ONE Diltiazem Inj [Cardizem Inj] Med 07/12/24 18:17 Discontinued 20 mg IV X1 ONE Famotidine Inj [Pepcid Inj] Med 07/12/24 19:42 Discontinued 20 mg IVP X1 ONE KCL 10% Liq UDC 15 ML Med 07/12/24 19:04 Discontinued 40 meq PO X1 ONE MethylPREDNISolone.* [SoluMEDROL Inj] Med 07/12/24 19:45 Discontinued 125 mg IVP X1 ONE Ondansetron Inj [Zofran Inj] Med 07/12/24 19:42 Discontinued 4 mg IV X1 ONE Pantoprazole Inj [Protonix Inj] Med 07/12/24 19:42 Discontinued 40 mg IV X1 ONE Vital Signs Vital signs: Vital Signs Temperature 98.0 F 07/12/24 15:13 Pulse Rate 103 H 07/12/24 15:13 Respiratory Rate 20 07/12/24 15:13 Blood Pressure 106/56 L 07/12/24 15:13 Pulse Oximetry (%) 95 07/12/24 15:13 Oxygen Delivery Method Room Air 07/12/24 15:13 Nausea/Vomiting/Diarrhea MDM Narrative MDM Narrative:: ITabatha am scribing for and in the presence of Dr. Fernandez. Patient data External records reviewed:: [facility] previous records (Reviewed last admission record from 05/13/24 through 06/21/24, patient admitted for the following: AMS (altered mental status), Sepsis, Acute respiratory failure with hypoxia, Pneumonia, Elevated troponin, Elevated brain natriuretic peptide (BNP) level) and EMS form Clinical information provided by:: patient and EMS Social determinants that could affect healthcare access:: none Patient has the following chronic illnesses:: Hypertension and chronic kidney disease. Laparotomy by Dr. Santana for perforated gastric ulcer 05/14/2024. How is presenting disease/condition affected by chronic disease/condition?: exacerbated by Evaluation data The following diagnostics were reviewed and interpreted by me:: lab results, radiology exam(s) and EKG tracing(s) Lab and/or radiology exams considered but not ordered:: none Interpretation Summary: Pending diagnostic tests. Medications / Prescriptions Medications / Prescriptions considered but not ordered:: none Medication administrations:: Medication Administration History Acetaminophen (Acetaminophen 325 Mg Tablet) 650 mg PO Q6H PRN PRN Reason: Fever >101.5 Stop: 08/11/24 20:32 Al Hydrox/Mg Hydrox/Simethicone (Mg Hyd/Al Hyd/Ronald (Maalox Reg) Susp 30 Ml Udc) 30 ml PO QID PRN PRN Reason: UPSET STOMACH/INDIGESTION Stop: 08/11/24 20:50 Amiodarone HCl (Amiodarone Hcl 200 Mg Tablet) 200 mg PO BID [facility] Stop: 08/11/24 20:59 Last Admin: 07/12/24 22:17 Dose: 200 mg Documented By: LB Apixaban (Apixaban 2.5 Mg Tablet) 5 mg PO BID [facility] Stop: 08/12/24 08:59 Dextrose (Dextrose 50%-Water Inj 50 Ml Syringe) 25 ml IV Q15MIN PRN PRN Reason: BG 50-70 responsive npo pt Stop: 08/11/24 21:10 Dextrose (Dextrose 50%-Water Inj 50 Ml Syringe) 50 ml IV Q15MIN PRN PRN Reason: BG <50 OR BG <70 & pt unresponsive Stop: 08/11/24 21:10 Dronabinol (Dronabinol 2.5 Mg Capsule) 10 mg PO BIDAC [facility] Stop: 08/12/24 07:29 Glucagon (Glucagon Inj 1 Mg Vial) 1 mg IM Q15MIN PRN PRN Reason: BG <70, and no IV access Lactated Ringer's (Lactated Ringers) 500 mls @ 75 mls/hr IV .Q6H40M [facility] Stop: 08/11/24 23:57 Last Admin: 07/13/24 00:13 Dose: 75 mls/hr Documented By: LB Insulin Glargine (Insulin Glargine (Lantus) 5 Unit/0.05 Ml (Per 5 Units)) 12 unit SC QDAY [facility] Stop: 08/12/24 08:59 Insulin Human Lispro (Insulin Lispro (Admelog) 1 Unit/0.01 Ml Unit) 0 unit SC AC [facility]; Protocol Stop: 08/12/24 07:29 Metoprolol Succinate (Metoprolol Succinate Xl 25 Mg Tabcr) 25 mg PO QDAY [facility] Stop: 08/12/24 08:59 Midodrine (Midodrine 5 Mg Tablet) 5 mg PO TID [facility] Stop: 08/11/24 21:59 Last Admin: 07/12/24 22:00 Dose: 5 mg Documented By: OPAL Mirtazapine (Mirtazapine 15 Mg Tablet) 15 mg PO QDAY [facility] Stop: 08/12/24 08:59 Ondansetron HCl (Ondansetron Inj 2 Mg/Ml Inj 2 Ml) 4 mg IV Q6H PRN; Protocol PRN Reason: NAUSEA OR VOMITING Stop: 08/11/24 20:32 Pantoprazole Sodium (Pantoprazole Inj 40 Mg Vial) 40 mg IVP QDAY [facility] Stop: 08/12/24 08:59 Sennosides (Senna Tablet) 1 tab PO QDAY PRN; Protocol PRN Reason: CONSTIPATION Stop: 08/11/24 20:43 Sodium Bicarbonate (Sodium Bicarbonate 650 Mg Tablet) 650 mg PO QDAY [facility] Stop: 08/12/24 08:59 Discontinued Medications Apixaban (Apixaban 2.5 Mg Tablet) 5 mg PO X1 ONE Stop: 07/12/24 21:01 Last Admin: 07/12/24 22:16 Dose: 5 mg Documented By: OPAL Diltiazem HCl (Diltiazem Inj 5 Mg/Ml Vial 5 Ml) 20 mg IV X1 ONE Stop: 07/12/24 18:18 Last Admin: 07/12/24 18:50 Dose: 20 mg Documented By: THOMAS Diltiazem HCl (Diltiazem Inj 5 Mg/Ml Vial 25 Ml) Confirm Administered Dose 125 mg IV .STK-MED ONE Stop: 07/12/24 18:27 Last Admin: 07/12/24 19:12 Dose: Not Given Documented By: THOMAS Non-Admin Reason: Duplicate Medication on eMAR Diphenhydramine HCl (Diphenhydramine Inj 50 Mg/Ml Vial) 12.5 mg IVP X1 ONE Stop: 07/12/24 20:39 Last Admin: 07/12/24 22:14 Dose: 12.5 mg Documented By: OPAL Famotidine (Famotidine Inj 10 Mg/Ml Vial 2 Ml) 20 mg IVP X1 ONE Stop: 07/12/24 19:43 Last Admin: 07/12/24 19:55 Dose: 20 mg Documented By: OPAL Diltiazem HCl (Diltiazem In D5w 125 Mg) 125 mg in 125 mls @ 5 mls/hr IV .Q24H ANGELICA; Protocol Stop: 08/11/24 18:29 Last Admin: 07/12/24 19:11 Dose: Not Given Documented By: RD Non-Admin Reason: Discontinued Diltiazem HCl (Diltiazem In D5w 125 Mg) 125 mg in 125 mls @ 5 mls/hr IV .Q24H ANGELICA; Protocol Stop: 08/11/24 18:59 Last Admin: 07/12/24 20:03 Dose: Not Given Documented By: LB Non-Admin Reason: Other, see note Comments: hold per Hospitalist. Lactated Ringer's (Lactated Ringers) 500 mls @ 75 mls/hr IV .Q6H40M [facility] Stop: 07/13/24 03:49 Last Admin: 07/12/24 22:35 Dose: Not Given Documented By: LB Non-Admin Reason: Medication Not Available Lactated Ringer's (Lactated Ringers) 1,000 mls @ 75 mls/hr IV .[id number] [facility] Stop: 07/13/24 05:10 Last Admin: 07/12/24 23:00 Dose: Not Given Documented By: LB Non-Admin Reason: Discontinued Methylprednisolone Sodium Succinate (Methylprednisolone Sod Succ 62.5 Mg/Ml 2ml Vial) 125 mg IVP X1 ONE Stop: 07/12/24 19:46 Last Admin: 07/12/24 19:54 Dose: 125 mg Documented By: OPAL Midodrine (Midodrine 5 Mg Tablet) 5 mg PO TID PRN PRN Reason: Hypotention SBP <100 Stop: 08/11/24 21:59 Ondansetron HCl (Ondansetron Inj 2 Mg/Ml Inj 2 Ml) 4 mg IV X1 ONE; Protocol Stop: 07/12/24 19:43 Last Admin: 07/12/24 22:12 Dose: 4 mg Documented By: LB Pantoprazole Sodium (Pantoprazole Inj 40 Mg Vial) 40 mg IV X1 ONE Stop: 07/12/24 19:43 Last Admin: 07/12/24 19:51 Dose: 40 mg Documented By: LB Potassium Chloride (Potassium Chloride 10% 20 Meq/15 Ml Udc) 40 meq PO X1 ONE Stop: 07/12/24 19:05 Last Admin: 07/12/24 22:33 Dose: Not Given Documented By: LB Non-Admin Reason: Patient Refused Potassium Chloride (Potassium Chloride 20 Meq Tabcr) 40 meq PO X1 ONE Stop: 07/12/24 22:31 Last Admin: 07/12/24 22:40 Dose: 40 meq Documented By: OPAL see above if any Consultations Consultation(s) initiated? (list below): No Diagnosis Nausea Differential Diagnosis: gastroenteritis, dehydration and other (perforated bowel, ADILSON) Most likely diagnosis given after review of the tests above:: No official diagnoses at this time, still pending diagnostic tests. Patient signout to the shift lab technician provider. Admission Indicated Admission indicated?: not indicated Explain why admission is indicated or not indicated:: No final disposition plan at this time, still pending diagnostic tests. Patient signout to the shift lab technician provider. Admission Request Was there a request for admission?: No Disposition Plan Disposition Plan: other (specify) (Patient signout to the shift lab technician provider.) Discharge Plan Plan Patient Disposition: Other Care w/in Hosp ([facility]) Problem List Clinical Impression: Atrial fibrillation with RVR, Gastritis Attestation Attestation See my separate notes. Ishan Ivey MD
--- NOTE | 2024-07-12 16:35 | EKG_ITS ---
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
--- NOTE | 2024-07-12 16:35 | XR_ITS ---
Examination: AP chest single view Technique one AP portable semiupright chest single view Exam date and time: July 12, 2024 1713 hrs. Comparison June 26, 2024 Indications: Chest pain today. Findings: Mild heart failure Mild to moderate enlargement cardiac contour Prominent vascular congestion early basilar edema Left internal jugular dialysis catheter tips SVC satisfactory position Impression: Mild heart failure
--- NOTE | 2024-07-12 16:39 | XR_ITS ---
Examination: CT abdomen and pelvis without contrast. Coronal 3-D reconstructions. Sagittal 2-D reconstructions. Date and time of exam:July 12, 2024 7043 hours Comparison June 24, 2024 Indications: Generalized abdominal pain and vomiting today CTDI: vol (mGy): 9.56 DLP: (mGycm): 510 Technique: Axial images of the abdomen have been obtained, 3 mm slice thickness Intravenous contrast material has not been administered. Low dose protocols were performed. One or more of the following dose reduction techniques were used; automated exposure control, adjustment of the mA and/or KV according to patient size, use of iterative reconstruction technique. Findings: Minimal pericardial effusion Mitral valvular calcification Liver is irregular in contour Spleen is not enlarged Hyperdense gallbladder Gastric mucosa thickened and there is considerable perigastric inflammatory change There is possible edema around the pancreas in addition Left renal arterial calcification Lower pole left renal cyst 4.5 cm No hydronephrosis No bowel obstruction No diverticulitis Atrophic anteverted uterus Bladder intact Advanced degenerative disc disease L3-L4 Impression: Severe gastritis pattern Hyperdense gallbladder Possible pancreatitis, consider MRCP follow-up
[2024-07-12 17:10] LABS: Lactate (Lactic Acid) 2.4 mMol/L (0.4-2.0)
[2024-07-12 17:11] LABS: Basophils # (Auto) 0.1 Thou/mm3 (0.0-0.2); Basophils % (Auto) 1 % (0-2.5); Eosinophils % (Auto) 0 % (0-10); Hematocrit 41.2 % (36.0-46.0); Hemoglobin 12.8 g/dL (12.0-16.0); Immature Granulocytes % (Auto) 2 % (0-0); Immature Granulocytes Auto 0.23 Thou/mm3 (0.00-0.00); Lymphocytes # (Auto) 2.2 Thou/mm3 (1.0-4.8); Lymphocytes % (Auto) 17 % (10-50); Mean Corpuscular HGB Conc 31.1 g/dl (31.0-37.0); Mean Corpuscular Hemoglobin 26.1 pg (25.0-35.0); Mean Corpuscular Volume 84 fL (80-100); Monocytes # (Auto) 0.9 Thou/mm3 (0.0-0.8); Monocytes % (Auto) 7 % (0-12); Neutrophils # (Auto) 9.6 Thou/mm3 (1.8-7.7); Neutrophils % (Auto) 74 % (37-80); Nucleated Red Blood Cell % 0 /100 WBC (0); Platelet Count 283 Thou/mm3 (140-440); White Blood Count 13.1 Thou/mm3 (3.6-11.0)
[2024-07-12 17:29] LABS: INR 1.5 (0.9-1.3); Partial Thromboplastin Time 36.3 Seconds (22.0-36.0); Prothrombin Time 15.8 Seconds (9.0-12.2)
[2024-07-12 17:38] LABS: Alanine Aminotransferase 12 U/L (10-49); Albumin, Serum 3.3 gm/dL (3.4-4.8); Albumin/Globulin Ratio 1.1 (1.2-2.2); Alkaline Phosphatase 117 U/L (46-116); Anion Gap 10 (7-16); Aspartate Amino Transferase 24 U/L (0-34); B-Type Natriuretic Peptide 862 pg/mL (0-100); BUN/Creatinine Ratio 16 Ratio (12-20); Bilirubin,Total 0.7 mg/dL (0.3-1.2); Blood Urea Nitrogen 29 mg/dL (9-23); Calcium 9.6 mg/dL (8.3-10.6); Calcium (Corrected) 10.2 mg/dL (8.5-10.1); Carbon Dioxide 24.6 mMol/L (20.0-31.0); Chloride 102 mMol/L (98-107); Creatinine (Component) 1.8 mg/dL (0.6-1.3); Globulin 2.9 gm/dL (2.3-3.5); Glucose 92 mg/dL (74-106); Lipase 49 U/L (12-53); Magnesium 1.9 mg/dL (1.6-2.6); Osmolality,Calculated 279 (275-295); Procalcitonin 0.48 ng/ml (0.0-0.49); Sodium 137 mMol/L (136-145); Total Protein 6.2 gm/dL (5.7-8.2); Troponin I < 0.020 ng/mL (0.0-0.045); eGFR 30 See Note
--- NOTE | 2024-07-12 17:58 | PD.EDADDENDU ---
Emergency Room Addendum <Leia Soria - Last Filed: 07/12/24 19:40> Addendum Narrative: I took over the care from Dr. Fernandez at 6 PM on 07/12/2024, see her notes for complete H&P and ED course. I reviewed all diagnostic test results. At this point, diagnoses include Treatment here included Significant improvement My interpretation of the EKG is: Atrial fibrillation with RVR (120 bpm) with nonspecific ST-T changes. Ishan Ivey MD At 1931, I spoke with Dr. Christianson from , who agrees to consult. I discussed the case with our hospitalist. About the presentation and exam and diagnostics and treatments here. And need of further care in the hospital. Will accept the patient. <Ishan Ivey MD - Last Filed: 07/12/24 19:44> Addendum Narrative: I took over the care from Dr. Fernandez at 6 PM on 07/12/2024, see her notes for complete H&P and ED course. I reviewed all diagnostic test results. At this point, diagnoses include atrial fibrillation with RVR and gastritis. Treatment here included Cardizem bolus and drip and Zofran and famotidine and Protonix. My interpretation of the EKG is: Atrial fibrillation with RVR (120 bpm) with nonspecific ST-T changes. Ishan Ivey MD At 1931, I spoke with Dr. Christianson from , who agrees to consult. I discussed the case with our hospitalist. About the presentation and exam and diagnostics and treatments here. And need of further care in the hospital. Will accept the patient.
[2024-07-12] MEDS: DILTIAZEM INJ 5 MG/ML VIAL 5 ML 20 MG IV (18:50)
[2024-07-12] MEDS: PANTOPRAZOLE INJ 40 MG VIAL IV (19:51)
[2024-07-12] MEDS: MethylPREDNISolone SOD SUCC 62.5 MG/ML 2ML VIAL 125 MG IVP (19:54)
[2024-07-12] MEDS: FAMOTIDINE INJ 10 MG/ML VIAL 2 ML 20 MG IVP (19:55)
[2024-07-12 20:08] LABS: Reflex Lactate? Y
--- NOTE | 2024-07-12 20:12 | PC.NURSE ---
HBS in room seeing pt, dtr at bedside.
--- NOTE | 2024-07-12 20:24 | PC.NURSE ---
Hold [facility] gtt per Dr. Mahmood. discussed with dtr regarding code status. Dtr/pt wishes for DNR.
--- NOTE | 2024-07-12 20:27 | PC.NURSE ---
Call MD if HR >120, per Dr. Mahmood.
--- NOTE | 2024-07-12 20:36 | EKG_ITS ---
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: : 1955 Requested By: Geovani Mahmood Order Number: [id number] Reading MD: Geovani Mahmood Measurements Intervals [place] Rate: 120 P: RI: QRS: -44 QRSD: 89 T: 143 QT: 343 QTc: 486 Interpretive Statements ATRIAL FIBRILLATION WITH RAPID VENTRICULAR RESPONSE MARKED LEFT AXIS DEVIATION [QRS AXIS < -30] PATTERN CONSISTENT WITH PULMONARY DISEASE ST DEVIATION AND MODERATE T-WAVE ABNORMALITY, CONSIDER LATERAL ISCHEMIA [-0.1+ mV T WAVE IN I/aVL/V5/V6] Compared to ECG 07/12/2024 18:07:11 Left-axis deviation now present Left anterior fascicular block no longer present T-wave abnormality still present Possible ischemia still present /store/S0/[id number]/[id number].pdf
[2024-07-12 20:45] LABS: Lactic Acid, 3 HR 2.6 mMol/L (0.4-2.0)
--- NOTE | 2024-07-12 20:57 | ESHP_ITS ---
Documentation for date of: 07/12/24 [facility] History of Present Illness Chief complaint: Dysphagia, poor p.o. intake History of present illness: Ms. Castellanos is a 69-year-old female with past medical history of diabetes mellitus, hypertension, atrial fibrillation on Eliquis, end-stage renal disease on hemodialysis (MWF), history of gastric ulcers, recent hospitalization [facility] for perforated gastric ulcer status post exploratory laparotomy complicated by recurrent abdominal and pelvic abscesses who presented from rehab with a chief complaint of vomiting. According to the daughter at bedside patient vomits every time she eats, patient has very poor p.o. intake, only able to eat 2-3 bites. Patient has significantly poor intake per chart review history, patient has been unable to maintain an appetite. Per patient's facility, there is high concern of poor p.o. intake as well. Otherwise patient was noted to be in A-fib with RVR in the emergency department, patient was given diltiazem 20 mg IV x 1 in ED, patient's heart rate improved. Patient's daughter also informed that patient gets allergic reaction postdialysis. Patient did receive dialysis treatment today. ED Course: ED Vitals: On presentation BP 106/56, P103, RR 20, temp 98.0, O2 sat 95 on room air ED Labs: ED labs significant for WBC 13.1, PT 15.8, INR 1.5, APTT 36.3, potassium 3, BUN 29, creatinine 1.8, GFR 30, lactate 2.4, corrected calcium 10.2, alk phos 117, BNP 862, albumin 3.3. ED Imaging: Chest x-ray in ED significant for mild heart failure, CT abdomen pelvis shows severe gastritis patent hyperdense gallbladder and possible pancreatitis. ED Treatment:Patient was given detailed 20 IV x 1, Protonix 40 IV x 1, methylprednisolone 125 IV x 1, famotidine 20 IV x 1. Review of Systems Review of Systems Narrative Review of Systems: ROS: -CONSTITUTIONAL: Positive for weight loss, denies fever and chills. -HEENT: Denies changes in vision and hearing. -RESPIRATORY: Denies SOB and cough. -CV: Denies palpitations and Chest Pain. -GI: Positive for abdominal pain, nausea, vomiting, denies constipation and diarrhea. -: Denies dysuria and urinary frequency. -MSK: Denies myalgia and joint pain. -SKIN: Denies rash and pruritus. -NEUROLOGICAL: Denies headache and syncope. -PSYCHIATRIC: Denies recent changes in mood. Denies anxiety and depression. Past Medical History Past Medical History Comments PMH COMMENT: PMH: Positive for diabetes mellitus, hypertension, atrial fibrillation on Eliquis, end-stage renal disease on hemodialysis (MWF), history of gastric ulcers PSHx: Perforated gastric ulcer status post exploratory laparotomy complicated by recurrent abdominal and pelvic abscesses Allergies: No known allergies Social history: -Smoking: Denies -Alcohol Use: Denies -Illicit Drug Use: Denies Family History: Denies any pertinent family history. Exam Vital Signs Temp Pulse Resp BP Pulse Ox O2 Del Method 97.8 F 94 20 105/88 H 96 Room Air 07/12/24 19:43 07/12/24 20:52 07/12/24 20:52 07/12/24 19:43 07/12/24 19:43 07/12/24 19:43 Narrative Exam Physical Exam General: Awake and in no acute distress. Conversational and non-toxic appearing. HEENT: Normocephalic, atraumatic, mucous membranes moist. Heart: Regular rate and rhythm, no murmurs. Lungs: Clear to auscultation with no wheezing or crackles. Abdomen: Soft, nondistended, nontender, positive bowel sounds. ?No guarding or rebound tenderness. Neurologic: Alert and oriented x3, no gross neurological deficit, and patient able to move all 4 extremities. Extremities: No edema. Skin: No rash or ecchymoses. Results: Labs 07/12/24 16:58 07/12/24 16:58 Labs: Short CBC 07/12/24 Range/Units 16:58 WBC 13.1 H (3.6-11.0) Thou/mm3 Hgb 12.8 (12.0-16.0) g/dL Hct 41.2 (36.0-46.0) % Plt Count 283 D (140-440) Thou/mm3 BMP 07/12/24 16:58 Sodium 137 Potassium 3.0 L Chloride 102 Carbon Dioxide 24.6 BUN 29 H Creatinine 1.8 H Glucose 92 Calcium 9.6 Cardiac Enzymes 07/12/24 Range/Units 16:58 Troponin I < 0.020 (0.0-0.045) ng/mL Liver Function 07/12/24 Range/Units 16:58 Total Bilirubin 0.7 (0.3-1.2) mg/dL AST 24 (0-34) U/L ALT 12 (10-49) U/L Alkaline Phosphatase 117 H (46-116) U/L Albumin 3.3 L (3.4-4.8) gm/dL Quality Measures Quality Measures VTE prophylaxis and none Advance care planning discussed with:: patient and child Medications Home Medications and Allergies Home Medications ?Medication ?Instructions ?Recorded ?Confirmed ?Type bisacodyl 10 mg rectal suppository [address] QDAY PRN C onstipation 06/25/24 06/29/24 History (Dulcolax (bisacodyl)) mirtazapine 15 mg tablet 15 mg PO HS 06/25/24 5 History sodium bicarbonate 650 mg tablet 650 mg PO QDAY 06/29/24 History sodium phosphates 19 gram-[address] QDAY 06/25/24 History gram/118 mL enema (Fleet Enema) Allergies Allergy/AdvReac Type Severity Reaction Status Date / Time No Known Allergies Allergy Verified 07/12/24 16:03 Visit Medications Acetaminophen (Acetaminophen 325 Mg Tablet) 650 mg PO Q6H PRN PRN Reason: Fever >101.5 Stop: 08/11/24 20:32 Al Hydrox/Mg Hydrox/Simethicone (Mg Hyd/Al Hyd/Ronald (Maalox Reg) Susp 30 Ml Udc) 30 ml PO QID PRN PRN Reason: UPSET STOMACH/INDIGESTION Stop: 08/11/24 20:50 Amiodarone HCl (Amiodarone Hcl 200 Mg Tablet) 200 mg PO BID ANGELICA Stop: 08/11/24 20:59 Apixaban (Apixaban 2.5 Mg Tablet) 5 mg PO BID ANGELICA Stop: 08/11/24 20:59 Apixaban (Apixaban 2.5 Mg Tablet) 5 mg PO X1 ONE Stop: 07/12/24 21:01 Dronabinol (Dronabinol 2.5 Mg Capsule) 10 mg PO BIDAC ANGELICA Stop: 08/12/24 07:29 Insulin Glargine (Insulin Glargine (Lantus) 5 Unit/0.05 Ml (Per 5 Units)) 12 unit SC QDAY [facility] Stop: 08/12/24 08:59 Metoprolol Succinate (Metoprolol Succinate Xl 25 Mg Tabcr) 25 mg PO QDAY [facility] Stop: 08/12/24 08:59 Midodrine (Midodrine 5 Mg Tablet) 5 mg PO TID [facility] Stop: 08/11/24 21:59 Mirtazapine (Mirtazapine 15 Mg Tablet) 15 mg PO QDAY [facility] Stop: 08/12/24 08:59 Ondansetron HCl (Ondansetron Inj 2 Mg/Ml Inj 2 Ml) 4 mg IV Q6H PRN; Protocol PRN Reason: NAUSEA OR VOMITING Stop: 08/11/24 20:32 Pantoprazole Sodium (Pantoprazole Inj 40 Mg Vial) 40 mg IVP QDAY [facility] Stop: 08/12/24 08:59 Sennosides (Senna Tablet) 1 tab PO QDAY PRN; Protocol PRN Reason: CONSTIPATION Stop: 08/11/24 20:43 Sodium Bicarbonate (Sodium Bicarbonate 650 Mg Tablet) 650 mg PO QDAY [facility] Stop: 08/12/24 08:59 Discontinued Medications Diltiazem HCl (Diltiazem Inj 5 Mg/Ml Vial 5 Ml) 20 mg IV X1 ONE Stop: 07/12/24 18:18 Last Admin: 07/12/24 18:50 Dose: 20 mg Diphenhydramine HCl (Diphenhydramine Inj 50 Mg/Ml Vial) 12.5 mg IVP X1 ONE Stop: 07/12/24 20:39 Famotidine (Famotidine Inj 10 Mg/Ml Vial 2 Ml) 20 mg IVP X1 ONE Stop: 07/12/24 19:43 Last Admin: 07/12/24 19:55 Dose: 20 mg Diltiazem HCl (Diltiazem In D5w 125 Mg) 125 mg in 125 mls @ 5 mls/hr IV .Q24H [facility]; Protocol Stop: 08/11/24 18:29 Last Admin: 07/12/24 19:11 Dose: Not Given Diltiazem HCl (Diltiazem In D5w 125 Mg) 125 mg in 125 mls @ 5 mls/hr IV .Q24H [facility]; Protocol Stop: 08/11/24 18:59 Last Admin: 07/12/24 20:03 Dose: Not Given Methylprednisolone Sodium Succinate (Methylprednisolone Sod Succ 62.5 Mg/Ml 2ml Vial) 125 mg IVP X1 ONE Stop: 07/12/24 19:46 Last Admin: 07/12/24 19:54 Dose: 125 mg Midodrine (Midodrine 5 Mg Tablet) 5 mg PO TID PRN PRN Reason: Hypotention SBP <100 Stop: 08/11/24 21:59 Ondansetron HCl (Ondansetron Inj 2 Mg/Ml Inj 2 Ml) 4 mg IV X1 ONE; Protocol Stop: 07/12/24 19:43 Pantoprazole Sodium (Pantoprazole Inj 40 Mg Vial) 40 mg IV X1 ONE Stop: 07/12/24 19:43 Last Admin: 07/12/24 19:51 Dose: 40 mg Potassium Chloride (Potassium Chloride 10% 20 Meq/15 Ml Udc) 40 meq PO X1 ONE Stop: 07/12/24 19:05 Last Admin: 07/12/24 19:57 Dose: 40 meq Assessment & Plan Plan Assessment and Plan: Summary: Ms. Castellanos is a 69-year-old female with past medical history of diabetes mellitus, hypertension, atrial fibrillation on Eliquis, end-stage renal disease on hemodialysis (MWF), history of gastric ulcers, recent hospitalization [facility] for perforated gastric ulcer status post exploratory laparotomy complicated by recurrent abdominal and pelvic abscesses who presented from rehab with a chief complaint of vomiting. Patient admitted to hospital for further workup for dysphagia poor p.o. intake and possible intervention for adequate nutrition. #Gastritis #Dysphagia #Poor p.o. intake #Nausea and vomiting #History of gastric ulcers Per patient's daughter on medical staff physician of senior care home patient has significantly poor p.o. intake, takes only 2-3 bites, unable to maintain a normal appetite. Patient does complain of mild epigastric pain, patient does have history of gastric ulcers recently was admitted to hospital for complicated perforated gastric ulcer. Plan: ? GI consulted, appreciate recommendations ? Protonix daily ? Maalox as needed ? Patient on dronabinol, resumed, mirtazapine resumed ? Referral to dietitian ? Referral to speech therapy ? Extensive counseling of family and patient on different options of enteral and parenteral nutrition. #A-fib with RVR Patient was noted to be in A-fib with RVR in ED, was given diltiazem 20 IV x 1, plan was to start patient on diltiazem drip. Patient's heart rate fluctuating in 90s to 110, no rapid ventricular response noted. Patient does have a history of atrial fibrillation, currently on amiodarone 200 twice daily, metoprolol succinate 25 p.o. daily and Eliquis 5 mg twice daily. Patient's last echo 05/16/2024 shows normal LV size and function, EF 55 to 60%, mild LVH stage I diastolic dysfunction. 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 Mild AV Sclerosis without stenosis. Plan: ?Resumed home dose amiodarone 200 twice daily, metoprolol succinate 25 mg p.o. daily ?Resumed Eliquis 5 mg twice daily ?Telemonitoring ?Consult cardio consult in a.m. #Diabetes mellitus Patient has history of diabetes mellitus, last hemoglobin A1c was 6.3. Plan: ?Sliding scale insulin ?Resumed home dose Lantus 12 units daily ?Fingerstick blood glucose, blood glucose goal 140-180 ?Hypoglycemia protocol #End-stage renal disease, on hemodialysis MWF Patient received dialysis treatment today, reports of allergic rash postdialysis. Plan: -Continue inpatient dialysis, nephrology consulted ?IV diphenhydramine x 1 ?Resume home dose midodrine DVT prophylaxis: Eliquis GI prophylaxis: IV Protonix Diet: N.p.o. Lines: Peripheral IV Code status: DNR/DNI Case discussed with Attending Dr. Vivian Mahmood PGY1 Internal medicine Disclaimer: This note was dictated by speech recognition. Minor errors in discount clerk may be present due to voice recognition software. Attending Provider Attestation/Addendum 69-year-old female from senior care facility with history of perforated gastric ulcer, atrial fibrillation, diabetes mellitus was admitted for vomiting. The patient is unable to keep anything by mouth. She vomits every time she is being fed. The patient is on hemodialysis. Of note she has history of perforated gastric ulcer. The patient is being admitted for further evaluation by GI. Dr. Christianson was consulted. In the ER this afternoon she was in rapid atrial fibrillation that was controlled with the dose of diltiazem IV. Diltiazem drip was discontinued. Discussed with housestaff
[2024-07-12] MEDS: MIDODRINE 5 MG TABLET PO (22:00)
[2024-07-12] MEDS: ONDANSETRON INJ 2 MG/ML INJ 2 ML 4 MG IV (22:12)
[2024-07-12] MEDS: DiphenhydrAMINE INJ 50 MG/ML VIAL 12.5 MG IVP (22:14)
[2024-07-12] MEDS: APIXABAN 2.5 MG TABLET 5 MG PO (22:16)
[2024-07-12] MEDS: AMIODARONE HCL 200 MG TABLET PO (22:17)
--- NOTE | 2024-07-12 22:30 | PC.NURSE ---
pt refused to drink Kcl po. Dr. Mahmood informed.
[2024-07-12] MEDS: POTASSIUM CHLORIDE 20 mEq TABCR 40 MEQ PO (22:40)
--- NOTE | 2024-07-12 23:10 | PD.IMCONS ---
HPI Data of Consult Requesting Physician: Mike Park MD Primary Care Provider: Physician No Primary/Family Consult Narrative Reason for consult: Failure to thrive History of present illness: 69 years of female being evaluated request of the emergency room physician According to family patient has not been eating She does have a history of perforated gastric ulcer requiring Ramsey's patch and suturing Postoperatively she developed some diaphragmatic abscesses requiring IR catheter drainage During the hospitalization she also developed end-stage renal disease on hemodialysis MWF She does have A-fib on Eliquis diabetes mellitus type 2 essential hypertension cc:: cc: Mike Park MD Review of Systems Review of Systems ROS Unobtainable: unobtainable due to medical condition Past Medical History Surgical History OTHER SURGICAL HX: As under HPI Meds Home Medications and Allergies Home Medications ?Medication ?Instructions ?Recorded ?Confirmed ?Type bisacodyl 10 mg rectal suppository 10 mg ND QDAY PRN Constipation 06/25/24 06/29/24 History (Dulcolax (bisacodyl)) mirtazapine 15 mg tablet 15 mg PO HS 06/25/24 06/29/24 History sodium bicarbonate 650 mg tablet 650 mg PO QDAY 06/25/24 06/29/24 History sodium phosphates 19 gram-7 118 ml ND QDAY 06/25/24 06/29/24 History gram/118 mL enema (Fleet Enema) Allergies Allergy/AdvReac Type Severity Reaction Status Date / Time No Known Allergies Allergy Verified 07/12/24 16:03 Exam Vital Signs Temp Pulse Resp BP Pulse Ox O2 Del Method 97.9 F 107 H 18 108/70 97 Room Air 07/12/24 22:31 07/12/24 22:31 07/12/24 22:31 07/12/24 22:31 07/12/24 22:31 07/12/24 22:31 Constitutional Comments: Chronically sick appearing Routine Respiratory Exam Comments: Normal to auscultation Routine Abdominal Exam Comments: Soft nontender positive bowel sounds Results Labs 07/13/24 04:30 07/13/24 04:30 Labs: Short CBC 07/12/24 Range/Units 16:58 WBC 13.1 H (3.6-11.0) Thou/mm3 Hgb 12.8 (12.0-16.0) g/dL Hct 41.2 (36.0-46.0) % Plt Count 283 D (140-440) Thou/mm3 BMP 07/12/24 16:58 Sodium 137 Potassium 3.0 L Chloride 102 Carbon Dioxide 24.6 BUN 29 H Creatinine 1.8 H Glucose 92 Calcium 9.6 Cardiac Enzymes 07/12/24 Range/Units 16:58 Troponin I < 0.020 (0.0-0.045) ng/mL Liver Function 07/12/24 Range/Units 16:58 Total Bilirubin 0.7 (0.3-1.2) mg/dL AST 24 (0-34) U/L ALT 12 (10-49) U/L Alkaline Phosphatase 117 H (46-116) U/L Albumin 3.3 L (3.4-4.8) gm/dL Assessment and Plan Additional Assessment & Plan Additional Plan: # Failure to thrive Plan Case discussed in detail with the ER physician Difficult to put a PEG tube for further management of failure to thrive however will discuss with the family And attempt should be made if they agree To sustain appropriate nutrition for the patient by placement of a PEG tube Other medical problems include 1 end-stage renal disease hemodialysis MWF 2 chronic A-fib on Eliquis 3 status post exploratory laparotomy for perforated gastric ulcer Ramsey's patch and drainage of the subphrenic abscesses by IR drainage Thank you very much for the opportunity to participate in care of this patient
[2024-07-13] VITALS (15 sets, daily range): BP systolic 96–110; BP diastolic 53–80; PULSE 62–105; RESP 16–98; TEMP 36.2–36.7; O2SAT 93–96; BMI 35.3; BMI 27.7
[2024-07-13] MEDS: RINGERS LACTATED 500 ML 500 ML 75 ML IV (00:13)
[2024-07-13 02:00] LABS: Collection Type, Urine Catheter; RBC,Urine 0 /hpf (0-3)
[2024-07-13 02:18] LABS: Bacteria,Urine 3+; Bilirubin,Urine 1+ (Negative); Blood,Urine Negative (Negative); Clarity,Urine Turbid (Clear/Hazy); Color,Urine Yellow (Lt Yel-Yel); Glucose, Urine Negative (Negative); Hyaline Casts,Urine < 1 /hpf (0-1); Ketones,Urine Trace (Negative); Leukocyte Esterase,Urine Positive (Negative); Nitrite,Urine Negative (Negative); PH,Urine 5.5 (5.0-7.0); Protein,Urine 1+ (Neg - Trace); Specific Gravity,Urine 1.021 (1.001-1.035); Squamous Epithelial Cell,Urine < 1 /hpf (0-5); WBC,Urine 84 /hpf (0-5)
[2024-07-13 02:20] LABS: Culture Indicated,Urine Yes
--- NOTE | 2024-07-13 05:30 | PC.NURSE ---
Pt. BP is 96/74 and Heart Rate of 95. Pt is NPO and said okay to give PO meds.
[2024-07-13] MEDS: MIDODRINE 5 MG TABLET PO ×3 (05:34→22:35)
[2024-07-13 06:03] LABS: Basophils % (Auto) 0 % (0-2.5); Eosinophils % (Auto) 0 % (0-10); Hemoglobin 11.8 g/dL (12.0-16.0); Immature Granulocytes % (Auto) 1 % (0-0); Immature Granulocytes Auto 0.15 Thou/mm3 (0.00-0.00); Lymphocytes # (Auto) 1.8 Thou/mm3 (1.0-4.8); Lymphocytes % (Auto) 13 % (10-50); Mean Corpuscular HGB Conc 31.1 g/dl (31.0-37.0); Mean Corpuscular Hemoglobin 26.1 pg (25.0-35.0); Mean Corpuscular Volume 84 fL (80-100); Monocytes # (Auto) 0.1 Thou/mm3 (0.0-0.8); Monocytes % (Auto) 1 % (0-12); Neutrophils # (Auto) 11.6 Thou/mm3 (1.8-7.7); Neutrophils % (Auto) 85 % (37-80); Nucleated Red Blood Cell # 0.03 Thou/mm3 (0.00-0.00); Nucleated Red Blood Cell % 0 /100 WBC (0); Platelet Count 288 Thou/mm3 (140-440); RDW Standard Deviation 60.3 fL (36.4-46.3); Red Blood Count 4.52 Miln/mm3 (4.00-5.20); White Blood Count 13.6 Thou/mm3 (3.6-11.0)
[2024-07-13 06:36] LABS: Alanine Aminotransferase 12 U/L (10-49); Albumin, Serum 3.1 gm/dL (3.4-4.8); Albumin/Globulin Ratio 1.1 (1.2-2.2); Alkaline Phosphatase 109 U/L (46-116); Anion Gap 15 (7-16); Aspartate Amino Transferase 19 U/L (0-34); BUN/Creatinine Ratio 19 Ratio (12-20); Bilirubin,Total 0.6 mg/dL (0.3-1.2); Blood Urea Nitrogen 35 mg/dL (9-23); Calcium 9.5 mg/dL (8.3-10.6); Calcium (Corrected) 10.2 mg/dL (8.5-10.1); Carbon Dioxide 21.7 mMol/L (20.0-31.0); Chloride 102 mMol/L (98-107); Creatinine (Component) 1.8 mg/dL (0.6-1.3); Globulin 2.8 gm/dL (2.3-3.5); Glucose 129 mg/dL (74-106); Magnesium 1.9 mg/dL (1.6-2.6); Osmolality,Calculated 287 (275-295); Phosphorous 4.1 mg/dL (2.4-5.1); Potassium 4.4 mMol/L (3.4-5.1); Sodium 139 mMol/L (136-145); Total Protein 5.9 gm/dL (5.7-8.2); eGFR 30 See Note
[2024-07-13 06:49] LABS: Glucose Estimated Average 94 mg/dL (80-131); Hemoglobin A1C 4.9 % Hgb (4.8-6.0)
[2024-07-13 07:21] LABS: Lactate (Lactic Acid) 1.8 mMol/L (0.4-2.0)
[2024-07-13] MEDS: droNABinol 2.5 MG CAPSULE 10 MG PO (07:43)
--- NOTE | 2024-07-13 08:48 | PD.RESCONSUL ---
HPI Data of Consult Consult date: 07/13/24 Requesting Physician: Ventura Dudley MD Admitting Provider: Mike Park MD Attending Provider: Ventura Dudley MD Primary Care Provider: Physician No Primary/Family Consult Narrative Reason for consult: ADILSON History of present illness: Ms. Castellanos is a 69-year-old female with significant past medical history of diabetes mellitus, hypertension, A-fib on Eliquis, ADILSON on hemodialysis( MWF), history of gastric ulcers, recent hospitalization in [facility] for perforated gastric ulcer s/p exploratory laparotomy complicated by recurrent abdominal and pelvic abscesses presented from rehab with chief complaint of vomiting. Vomiting is further aggravated by trying to eat, as after taking 2-3 bites she starts vomiting. Denies any fever or chills, headache, chest pain, abdominal pain, any leg swelling. The last hemodialysis and was 1 day ago. During our evaluation, her vitals were stable with soft blood pressure, saturating 92 to 95% on room air. Labs are significant for white count 13.6, hemoglobin 11.8, sodium 139, potassium 4.4, BUN 35, creatinine 1.8, GFR 40, A1c 4.9, corrected calcium 10.2. UA revealed turbid urine, protein 1+, bilirubin 1+, leukocyte esterase positive, WBC 84, bacteria 3+. Chest x-ray significant for mild heart failure pattern. Abdomen/pelvis CT significant for severe gastritis pattern, hyperdense gallbladder with possible pancreatitis. PMH: As mentioned above SHX: S/p exploratory laparotomy secondary to perforated gastric ulcer further complicated by recurrent abdominal and pelvic abscesses Social history: Denies smoking, alcohol use or any illicit drug use Family history: Unremarkable Medications: To be reconciled Nephrology consultation was done for further management of ADILSON , ?? need for hemodialysis. cc:: cc: Ventura Dudley MD Review of Systems Review of Systems Systems Reviewed: All systems reviewed, normal except as documented Past Medical History Past Medical History NEUROLOGIC: Negative Seizures CARDIAC: Positive Cardiac Disorders, Hypercholesterolemia, Congestive Heart Failure and Hypertension RESPIRATORY: Negative Chronic Obstructive Pulmonary Disease (COPD) or Asthma GASTROINTESTINAL: Positive Gastrointestinal Disorders (PERFORATED BOWEL) and Ulcer GENITOURINARY: Positive Genitourinary Disorders, Renal Disease and Dialysis MUSCULOSKELETAL: Positive Musculoskeletal Disorders ENDOCRINE: Positive Endocrine Disorders and Diabetes Mellitus Type 2; Negative Diabetes Mellitus Type 1 HEMATOLOGIC: Negative Sickle Cell Disease OTHER HISTORY: Negative Blood Transfusions, Blood Transfusion Reaction, Anesthesia Reactions or Cancer Surgical History SURGICAL: Positive Abdominal Surgery OTHER SURGICAL HX: As under HPI Social History SMOKING STATUS: Never smoker SUBSTANCE USE: does not use Past Medical History Comments PMH COMMENT: PMH: Positive for diabetes mellitus, hypertension, atrial fibrillation on Eliquis, end-stage renal disease on hemodialysis (MWF), history of gastric ulcers PSHx: Perforated gastric ulcer status post exploratory laparotomy complicated by recurrent abdominal and pelvic abscesses Allergies: No known allergies Social history: -Smoking: Denies -Alcohol Use: Denies -Illicit Drug Use: Denies Family History: Denies any pertinent family history. Exam Vital Signs Temp Pulse Resp BP Pulse Ox O2 Del Method 97.2 F 66 17 110/61 96 Room Air 07/13/24 08:00 07/13/24 08:00 07/13/24 08:00 07/13/24 08:00 07/13/24 08:00 07/13/24 08:00 Narrative Exam General: No acute distress, Alert and Oriented x 3 HEENT: Moist mucous membranes, oropharynx clear Neck: Supple, No masses, No JVD CVS: S1S2 Regular rate and rhythm, No murmurs, rubs or gallops Lungs: Clear to auscultation with no accessory use, no wheeze no rhonchi Abd: Soft, NT/ND, +BS, no organomegaly Ext: No edema, warm and well perfused. IJ dialysis catheter Skin: No rash Psych: Appropriate mood and affect Results Labs 07/14/24 04:27 07/14/24 04:27 Labs: Short CBC 07/12/24 07/13/24 Range/Units 16:58 04:30 WBC 13.1 H 13.6 H (3.6-11.0) Thou/mm3 Hgb 12.8 11.8 L (12.0-16.0) g/dL Hct 41.2 38.0 (36.0-46.0) % Plt Count 283 D 288 (140-440) Thou/mm3 BMP 07/12/24 07/13/24 16:58 04:30 Sodium 137 139 Potassium 3.0 L 4.4 D Chloride 102 102 Carbon Dioxide 24.6 21.7 BUN 29 H 35 H Creatinine 1.8 H 1.8 H Glucose 92 129 H Calcium 9.6 9.5 Cardiac Enzymes 07/12/24 Range/Units 16:58 Troponin I < 0.020 (0.0-0.045) ng/mL Liver Function 07/12/24 07/13/24 Range/Units 16:58 04:30 Total Bilirubin 0.7 0.6 (0.3-1.2) mg/dL AST 24 19 (0-34) U/L ALT 12 12 (10-49) U/L Alkaline Phosphatase 117 H 109 (46-116) U/L Albumin 3.3 L 3.1 L (3.4-4.8) gm/dL Urine 07/13/24 Range/Units 01:50 Urine Color Yellow (Lt Yel-Yel) Urine Clarity Turbid A (Clear/Hazy) Urine pH 5.5 (5.0-7.0) Ur Specific [place] 1.021 (1.001-1.035) Urine Protein 1+ A (Neg - Trace) Urine Glucose (UA) Negative (Negative) Quality Measures Quality Measures VTE prophylaxis and none Advance care planning discussed with:: patient Medications Home Medications and Allergies Home Medications ?Medication ?Instructions ?Recorded ?Confirmed ?Type bisacodyl 10 mg rectal suppository 10 mg NM QDAY PRN Constipation 06/25/24 06/29/24 History (Dulcolax (bisacodyl)) mirtazapine 15 mg tablet 15 mg PO HS 06/25/24 06/29/24 History sodium bicarbonate 650 mg tablet 650 mg PO QDAY 06/25/24 06/29/24 History sodium phosphates 19 gram-7 118 ml NM QDAY 06/25/24 06/29/24 History gram/118 mL enema (Fleet Enema) Allergies Allergy/AdvReac Type Severity Reaction Status Date / Time No Known Allergies Allergy Verified 07/12/24 16:03 Visit Medications Acetaminophen (Acetaminophen 325 Mg Tablet) 650 mg PO Q6H PRN PRN Reason: Fever >101.5 Stop: 08/11/24 20:32 Al Hydrox/Mg Hydrox/Simethicone (Mg Hyd/Al Hyd/Ronald (Maalox Reg) Susp 30 Ml Udc) 30 ml PO QID PRN PRN Reason: UPSET STOMACH/INDIGESTION Stop: 08/11/24 20:50 Amiodarone HCl (Amiodarone Hcl 200 Mg Tablet) 200 mg PO BID ANGELICA Stop: 08/11/24 20:59 Last Admin: 07/12/24 22:17 Dose: 200 mg Apixaban (Apixaban 2.5 Mg Tablet) 5 mg PO BID [facility] Stop: 08/12/24 08:59 Dextrose (Dextrose 50%-Water Inj 50 Ml Syringe) 25 ml IV Q15MIN PRN PRN Reason: BG 50-70 responsive npo pt Stop: 08/11/24 21:10 Dextrose (Dextrose 50%-Water Inj 50 Ml Syringe) 50 ml IV Q15MIN PRN PRN Reason: BG <50 OR BG <70 & pt unresponsive Stop: 08/11/24 21:10 Dronabinol (Dronabinol 2.5 Mg Capsule) 10 mg PO BIDAC [facility] Stop: 08/12/24 07:29 Last Admin: 07/13/24 07:43 Dose: 10 mg Glucagon (Glucagon Inj 1 Mg Vial) 1 mg IM Q15MIN PRN PRN Reason: BG <70, and no IV access Lactated Ringer's (Lactated Ringers) 1,000 mls @ 75 mls/hr IV .[id number] [facility] Stop: 08/12/24 07:35 Insulin Glargine (Insulin Glargine (Lantus) 5 Unit/0.05 Ml (Per 5 Units)) 12 unit SC QDAY [facility] Stop: 08/12/24 08:59 Insulin Human Lispro (Insulin Lispro (Admelog) 1 Unit/0.01 Ml Unit) 0 unit SC AC [facility]; Protocol Stop: 08/12/24 07:29 Last Admin: 07/13/24 07:36 Dose: Not Given Metoprolol Succinate (Metoprolol Succinate Xl 25 Mg Tabcr) 25 mg PO QDAY [facility] Stop: 08/12/24 08:59 Midodrine (Midodrine 5 Mg Tablet) 5 mg PO TID [facility] Stop: 08/11/24 21:59 Last Admin: 07/13/24 05:34 Dose: 5 mg Mirtazapine (Mirtazapine 15 Mg Tablet) 15 mg PO QDAY [facility] Stop: 08/12/24 08:59 Ondansetron HCl (Ondansetron Inj 2 Mg/Ml Inj 2 Ml) 4 mg IV Q6H PRN; Protocol PRN Reason: NAUSEA OR VOMITING Stop: 08/11/24 20:32 Pantoprazole Sodium (Pantoprazole Inj 40 Mg Vial) 40 mg IVP QDAY [facility] Stop: 08/12/24 08:59 Sennosides (Senna Tablet) 1 tab PO QDAY PRN; Protocol PRN Reason: CONSTIPATION Stop: 08/11/24 20:43 Sodium Bicarbonate (Sodium Bicarbonate 650 Mg Tablet) 650 mg PO QDAY [facility] Stop: 08/12/24 08:59 Discontinued Medications Apixaban (Apixaban 2.5 Mg Tablet) 5 mg PO X1 ONE Stop: 07/12/24 21:01 Last Admin: 07/12/24 22:16 Dose: 5 mg Diltiazem HCl (Diltiazem Inj 5 Mg/Ml Vial 5 Ml) 20 mg IV X1 ONE Stop: 07/12/24 18:18 Last Admin: 07/12/24 18:50 Dose: 20 mg Diphenhydramine HCl (Diphenhydramine Inj 50 Mg/Ml Vial) 12.5 mg IVP X1 ONE Stop: 07/12/24 20:39 Last Admin: 07/12/24 22:14 Dose: 12.5 mg Famotidine (Famotidine Inj 10 Mg/Ml Vial 2 Ml) 20 mg IVP X1 ONE Stop: 07/12/24 19:43 Last Admin: 07/12/24 19:55 Dose: 20 mg Diltiazem HCl (Diltiazem In D5w 125 Mg) 125 mg in 125 mls @ 5 mls/hr IV .Q24H ANGELICA; Protocol Stop: 08/11/24 18:29 Last Admin: 07/12/24 19:11 Dose: Not Given Diltiazem HCl (Diltiazem In D5w 125 Mg) 125 mg in 125 mls @ 5 mls/hr IV .Q24H ANGELICA; Protocol Stop: 08/11/24 18:59 Last Admin: 07/12/24 20:03 Dose: Not Given Lactated Ringer's (Lactated Ringers) 500 mls @ 75 mls/hr IV .Q6H40M [facility] Stop: 07/13/24 03:49 Last Admin: 07/12/24 22:35 Dose: Not Given Lactated Ringer's (Lactated Ringers) 1,000 mls @ 75 mls/hr IV .[id number] [facility] Stop: 07/13/24 05:10 Last Admin: 07/12/24 23:00 Dose: Not Given Lactated Ringer's (Lactated Ringers) 500 mls @ 75 mls/hr IV .Q6H40M ANGELICA Stop: 08/11/24 23:57 Last Admin: 07/13/24 00:13 Dose: 75 mls/hr Methylprednisolone Sodium Succinate (Methylprednisolone Sod Succ 62.5 Mg/Ml 2ml Vial) 125 mg IVP X1 ONE Stop: 07/12/24 19:46 Last Admin: 07/12/24 19:54 Dose: 125 mg Midodrine (Midodrine 5 Mg Tablet) 5 mg PO TID PRN PRN Reason: Hypotention SBP <100 Stop: 08/11/24 21:59 Ondansetron HCl (Ondansetron Inj 2 Mg/Ml Inj 2 Ml) 4 mg IV X1 ONE; Protocol Stop: 07/12/24 19:43 Last Admin: 07/12/24 22:12 Dose: 4 mg Pantoprazole Sodium (Pantoprazole Inj 40 Mg Vial) 40 mg IV X1 ONE Stop: 07/12/24 19:43 Last Admin: 07/12/24 19:51 Dose: 40 mg Potassium Chloride (Potassium Chloride 10% 20 Meq/15 Ml Udc) 40 meq PO X1 ONE Stop: 07/12/24 19:05 Last Admin: 07/12/24 22:33 Dose: Not Given Potassium Chloride (Potassium Chloride 20 Meq Tabcr) 40 meq PO X1 ONE Stop: 07/12/24 22:31 Last Admin: 07/12/24 22:40 Dose: 40 meq Assessment & Plan Plan The patient is a 69-year-old female with significant past medical history of diabetes mellitus, hypertension, A-fib on Eliquis, ADILSON on hemodialysis MWF, history of gastric ulcers, recent hospitalization in [facility] for perforated gastric ulcer s/p exploratory laparotomy complicated by recurrent abdominal and pelvic abscesses presented from rehab with chief complaint of vomiting. Nephrology consultation was done for further management of ADILSON on hemodialysis. #ADILSON secondary to ATN on hemodialysis MWF Patient had ATN while she was admitted to ICU for soft blood pressure on 05/14/2024. Later she was started on hemodialysis for volume overload and oliguria. Presented with BUN 29, creatinine 1.8 and GFR 30, but within the last 3 months or GFR was worsened, gradually has been improving. 07/13/2024: BUN 35, creatinine 1.8 and GFR 30 -Avoid nephrotoxic drugs -Renal dose modifications -Hold off on hemodialysis today, may proceed with hemodialysis tomorrow morning if required--suspect renal recovery -Daily a.m. renal panel #Mild hypercalcemia Likely secondary to dehydration in the setting of poor oral intake, nausea and vomiting further complicated by aggressive ultrafiltration during hemodialysis -Encouraged oral rehydration -Monitor calcium level daily in the a.m. #Gastritis #Dysphagia #Intractable nausea and vomiting #History of gastric ulcers #A-fib with RVR #Diabetes mellitus type II -Management deferred to primary hospitalist team Thank you for your opportunity to participate nephrology team in this patient care. The patient's management plan was discussed with my attending physician MD Sameer Roman MD, PGY2 Attending Provider Attestation/Addendum Patient seen and examined with resident physician Dr. Corcoran. Note reviewed, agree with findings and recommendations. Patient with ADILSON secondary to ATN from the previous admission. Patient was on dialysis twice weekly and comes with decreased p.o. intake. Noted creatinine 1.8. Patient stated she is making good urine. Hold off on dialysis. Suspect renal recovery. If creatinine continues to improve will plan for discontinuing dialysis and catheter. No family around. Thank you Dr. Narvaez for allowing me to participate in the care of Ms. Castellanos
--- NOTE | 2024-07-13 09:22 | PCS.ST ---
Swallow Evaluation completed. See report for details. NO s/s of aspiration. Diet per medical team.
[2024-07-13] MEDS: PANTOPRAZOLE INJ 40 MG VIAL IVP ×2 (09:35→20:24)
[2024-07-13] MEDS: METOPROLOL SUCCINATE XL 25 MG TABCR PO (09:40)
[2024-07-13] MEDS: AMIODARONE HCL 200 MG TABLET PO ×2 (09:41→20:25)
[2024-07-13] MEDS: cefTRIAXone 1,000 MG in SODIUM CHLORIDE 0.9% (P) 50 ML 100 MG IV (09:46)
--- NOTE | 2024-07-13 13:31 | PC.NURSE ---
Son Casa Mejia Cha at bedside, requested that his sister Debbie Castellanos by made point of contact and from this point on the person to obtain consent from. Sister with multiple questions for Dr. Christianson regarding procedure and plan of care. Dr. Christianson made aware and states he will make contact with family this evening. Contact number for Debbie Castellanos: [phone]
[2024-07-13] MEDS: RINGERS LACTATED 1000 ML 1,000 ML 75 ML IV (13:52)
--- NOTE | 2024-07-13 14:32 | PD.ADDPROG ---
Addendum Progress Note Addendum Date of report being addended: 07/13/24 Narrative: Attending's attestation: I reviewed labs, imaging, EKG, home medications and prior available records. Face to face evaluation was performed by me. I have personally examined the patient and discussed assessment and plan with the IM team. I reviewed the resident note and agree with the plan with exceptions as below. Intractable nausea and vomiting Acute gastritis Atrial fibrillation with RVR ESRD on hemodialysis Acute UTI Patient continues to have decreased oral intake, nausea, and vomiting. Likely in the setting of gastritis and multiple ulcers. Discussed with GI: Will plan for PEG tube insertion. N.p.o. prior to the procedure Continue IV PPI Continue IV fluids Management of nausea/vomiting as needed Continue amiodarone and Eliquis. Monitor heart rate Started IV ceftriaxone for the possible UTI. Follow-up urine culture
--- NOTE | 2024-07-13 14:51 | PD.RESPRO ---
Documentation for date of: 07/13/24 Subjective Subjective Interval history: Patient seen at bedside. No acute overnight events. She is a 69-year-old female who with a past medical history of hypertension, diabetes, A-fib on Eliquis, ESRD on dialysis, history of gastric ulcer status post ex lap presented to the ED on 07/12/2024 with nausea, vomiting and poor oral intake. Additionally, patient was seen to be in A-fib RVR on the ED and was given Dilt 20 mg x 1 after which heart rate improved. Patient is able to take a few bites but GI Dr. Christianson was consulted, will possibly plan patient for PEG tube if family consents. Exam Vital Signs Temp Pulse Resp BP Pulse Ox O2 Del Method 97.4 F 80 18 109/74 93 L Room Air 07/13/24 12:00 07/13/24 13:45 07/13/24 12:00 07/13/24 13:45 07/13/24 12:00 07/13/24 12:00 Narrative Exam GENERAL: AAOX3 NEURO: LAST PUTTER AWAY grossly intact, moves extremities x4 HEENT: Moist mucosa. Eyes open, symmetrical, & clear CARDIO: No chest pain on palpation. Heart RRR, no obvious murmurs PULM: No noted coughing/dyspnea. Lungs CTA B/L GI: Abdomen soft, nondistended, no pain on palpation. BSx4 URO/SOLUTION DESIGNER:: No further abnormalities noted. SKIN/MSK/EXT: No wounds/rashes/edema/amputations, no pain on palpation. Pedal pulses present B/L Objective Labs 07/14/24 04:27 07/14/24 04:27 Labs: Laboratory Results - last 24 hr 07/12/24 07/12/24 07/13/24 16:58 20:30 01:50 WBC 13.1 H RBC 4.90 Hgb 12.8 Hct 41.2 MCV 84 MCH 26.1 MCHC 31.1 RDW Std Deviation 61.0 H Plt Count 283 D Neut % (Auto) 74 Lymph % (Auto) 17 [place] % (Auto) 7 Eos % (Auto) 0 Baso % (Auto) 1 Neut # (Auto) 9.6 H Lymph # (Auto) 2.2 [place] # (Auto) 0.9 H Eos # (Auto) 0.0 Baso # (Auto) 0.1 Immature Gran # (Auto) 0.23 H Absolute Nucleated RBC 0.00 Immature Gran % 2 H Nucleated RBC % 0 PT 15.8 H D INR 1.5 H APTT 36.3 H D Sodium 137 Potassium 3.0 L Chloride 102 Carbon Dioxide 24.6 Anion Gap 10 BUN 29 H Creatinine 1.8 H Estim Creat Clear Calc Not Performed. eGFR 30 L BUN/Creatinine Ratio [address] Glu mg/dL Hemoglobin A1c Calculated Osmolality 279 Lactic Acid 2.4 H 2.6 H Calcium 9.6 Corrected Calcium 10.2 H Phosphorus Magnesium 1.9 Total Bilirubin 0.7 AST 24 ALT 12 Alkaline Phosphatase 117 H Troponin I < 0.020 B-Natriuretic Peptide 862 H* Total Protein 6.2 Albumin 3.3 L Globulin 2.9 Albumin/Globulin Ratio 1.1 L Lipase 49 Procalcitonin 0.48 Ur Collection Type Catheter Urine Color Yellow Urine Clarity Turbid A Urine pH 5.5 Ur Specific [place] 1.021 Urine Protein 1+ A Urine Glucose (UA) Negative Urine Ketones Trace Urine Blood Negative Urine Nitrite Negative Urine Bilirubin 1+ A Urine Urobilinogen (Auto) 3.0 Ur Leukocyte Esterase Positive Urine RBC 0 Urine WBC 84 H Ur Squamous Epith Cells < 1 Urine Bacteria 3+ A Hyaline Casts < 1 Ur Culture Indicated? Yes 07/13/24 07/13/24 04:30 07:09 WBC 13.6 H RBC 4.52 Hgb 11.8 L Hct 38.0 MCV 84 MCH 26.1 MCHC 31.1 RDW Std Deviation 60.3 H Plt Count 288 Neut % (Auto) 85 H Lymph % (Auto) 13 [place] % (Auto) 1 Eos % (Auto) 0 Baso % (Auto) 0 Neut # (Auto) 11.6 H Lymph # (Auto) 1.8 [place] # (Auto) 0.1 Eos # (Auto) 0.0 Baso # (Auto) 0.0 Immature Gran # (Auto) 0.15 H Absolute Nucleated RBC 0.03 H Immature Gran % 1 H Nucleated RBC % 0 PT INR APTT Sodium 139 Potassium 4.4 D Chloride 102 Carbon Dioxide 21.7 Anion Gap 15 BUN 35 H Creatinine 1.8 H Estim Creat Clear Calc 24.0 L eGFR 30 L BUN/Creatinine Ratio 19 [address]ucose [address] Glu mg/dL 94 Hemoglobin A1c 4.9 Calculated Osmolality 287 Lactic Acid 1.8 Calcium 9.5 Corrected Calcium 10.2 H Phosphorus 4.1 Magnesium 1.9 Total Bilirubin 0.6 AST 19 ALT 12 Alkaline Phosphatase 109 Troponin I B-Natriuretic Peptide Total Protein 5.9 Albumin 3.1 L Globulin 2.8 Albumin/Globulin Ratio 1.1 L Lipase Procalcitonin Ur Collection Type Urine Color Urine Clarity Urine pH Ur Specific [place] Urine Protein Urine Glucose (UA) Urine Ketones Urine Blood Urine Nitrite Urine Bilirubin Urine Urobilinogen (Auto) Ur Leukocyte Esterase Urine RBC Urine WBC Ur Squamous Epith Cells Urine Bacteria Hyaline Casts Ur Culture Indicated? Quality Measures Quality Measures VTE prophylaxis and none Advance care planning discussed with:: patient Assessment & Plan Assessment Current Active Medications: Generic Name Dose Route Start Last Admin Trade Name Freq PRN Reason Stop Dose Admin Acetaminophen 650 mg 07/12/24 20:33 Acetaminophen 325 Mg Tablet PO 08/11/24 20:32 Q6H PRN Fever >101.5 Al Hydrox/Mg Hydrox/Simethicone 30 ml 07/12/24 20:51 Mg Hyd/Al Hyd/Ronald (Maalox Reg) Susp 30 Ml Udc PO 08/11/24 20:50 QID PRN UPSET STOMACH/INDIGESTION Amiodarone HCl 200 mg 07/12/24 21:00 07/13/24 09:41 Amiodarone Hcl 200 Mg Tablet PO 08/11/24 20:59 200 mg BID ANGELICA Administration Apixaban 5 mg 07/13/24 09:00 07/13/24 09:47 Apixaban 2.5 Mg Tablet PO 08/12/24 08:59 Not Given BID ANGELICA Dextrose 25 ml 07/12/24 21:11 Dextrose 50%-Water Inj 50 Ml Syringe IV 08/11/24 21:10 Q15MIN PRN BG 50-70 responsive npo pt Dextrose 50 ml 07/12/24 21:11 Dextrose 50%-Water Inj 50 Ml Syringe IV 08/11/24 21:10 Q15MIN PRN BG <50 OR BG <70 & pt unresponsive Dronabinol 10 mg 07/13/24 07:30 07/13/24 07:43 Dronabinol 2.5 Mg Capsule PO 08/12/24 07:29 10 mg BIDAC ANGELICA Administration Glucagon 1 mg 07/12/24 21:11 Glucagon Inj 1 Mg Vial IM Q15MIN PRN BG <70, and no IV access Ceftriaxone Sodium 1,000 mg/ 50 mls @ 100 mls/hr 07/13/24 09:30 07/13/24 09:46 Sodium Chloride IV 07/20/24 09:13 100 mls/hr QDAY ANGELICA Administration Lactated Ringer's 1,000 mls @ 75 mls/hr 07/13/24 14:00 07/13/24 13:52 Lactated Ringers IV 08/12/24 07:35 75 mls/hr .[id number] ANGELICA Administration Insulin Glargine 12 unit 07/13/24 09:00 07/13/24 09:34 Insulin Glargine (Lantus) 5 Unit/0.05 Ml (Per 5 Units) SC 08/12/24 08:59 Not Given QDAY ANGELICA Insulin Human Lispro 0 unit 07/13/24 07:30 07/13/24 12:52 Insulin Lispro (Admelog) 1 Unit/0.01 Ml Unit SC 08/12/24 07:29 Not Given AC [facility] Protocol Metoprolol Succinate 25 mg 07/13/24 09:00 07/13/24 09:40 Metoprolol Succinate Xl 25 Mg Tabcr PO 08/12/24 08:59 25 mg QDAY ANGELICA Administration Midodrine 5 mg 07/12/24 22:00 07/13/24 13:45 Midodrine 5 Mg Tablet PO 08/11/24 21:59 5 mg TID ANGELICA Administration Mirtazapine 15 mg 07/13/24 21:00 Mirtazapine 15 Mg Tablet PO 08/12/24 20:59 HS [facility] Ondansetron HCl 4 mg 07/12/24 20:33 Ondansetron Inj 2 Mg/Ml Inj 2 Ml IV 08/11/24 20:32 Q6H PRN NAUSEA OR VOMITING Protocol Pantoprazole Sodium 40 mg 07/13/24 09:30 07/13/24 09:35 Pantoprazole Inj 40 Mg Vial IVP 08/12/24 09:29 40 mg BID ANGELICA Administration Sennosides 1 tab 07/12/24 20:44 Senna Tablet PO 08/11/24 20:43 QDAY PRN CONSTIPATION Protocol Sodium Bicarbonate 650 mg 07/13/24 09:00 07/13/24 09:47 Sodium Bicarbonate 650 Mg Tablet PO 08/12/24 08:59 Not Given QDAY ANGELICA Sucralfate 1 gm 07/13/24 11:30 07/13/24 12:51 Sucralfate Susp 1 Gm/10 Ml Udc PO 08/12/24 11:29 Not Given AC ANGELICA Plan Summary: The patient is a 69-year-old female with past medical history of diabetes mellitus, hypertension, atrial fibrillation on Eliquis, end-stage renal disease on hemodialysis (MWF), history of gastric ulcers, recent hospitalization [facility] for perforated gastric ulcer status post exploratory laparotomy complicated by recurrent abdominal and pelvic abscesses who presented from rehab with a chief complaint of vomiting. Patient admitted to hospital for further workup for dysphagia poor p.o. intake and possible intervention for adequate nutrition. #Gastritis #Dysphagia #Poor p.o. intake #Nausea and vomiting #History of gastric ulcers Per patient's daughter on medical record librarians teacher of [facility] patient has significantly poor p.o. intake, takes only 2-3 bites, unable to maintain a normal appetite. Patient does complain of mild epigastric pain, patient does have history of gastric ulcers recently was admitted to hospital for complicated perforated gastric ulcer. Patient is able to take a few bites but GI Dr. Christianson was consulted, will possibly plan patient for PEG tube if family consents. Plan: ? GI consulted, appreciate recommendations ? Protonix 40mg BID ? Maalox as needed ? Patient on dronabinol, resumed, mirtazapine resumed #A-fib with RVR Patient was noted to be in A-fib with RVR in ED, was given diltiazem 20 IV x 1, plan was to start patient on diltiazem drip. Patient's heart rate fluctuating in 90s to 110, no rapid ventricular response noted. Patient does have a history of atrial fibrillation, currently on amiodarone 200 twice daily, metoprolol succinate 25 p.o. daily and Eliquis 5 mg twice daily. Patient's last echo 05/16/2024 shows normal LV size and function, EF 55 to 60%, mild LVH stage I diastolic dysfunction. 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 Mild AV Sclerosis without stenosis. Plan: ?Resumed home dose amiodarone 200 twice daily, metoprolol succinate 25 mg p.o. daily ?Resumed Eliquis 5 mg twice daily ?Telemonitoring ?Consult cardio consult in a.m. #Diabetes mellitus Patient has history of diabetes mellitus, last hemoglobin A1c was 6.3. Plan: ?Sliding scale insulin ?Resumed home dose Lantus 12 units daily ?Fingerstick blood glucose, blood glucose goal 140-180 ?Hypoglycemia protocol #End-stage renal disease, on hemodialysis MWF Patient received dialysis treatment yesterday, reports of allergic rash postdialysis. Received Benadryl Plan: -Continue inpatient dialysis, nephrology consulted ?Resume home dose midodrine DVT prophylaxis: Eliquis GI prophylaxis: IV Protonix Diet: N.p.o. Lines: Peripheral IV Code status: DNR/DNI Case was discussed with Dr Peraza PGY-2 and attending physician, Dr Luis Enrique Stanley MD PGY-1 Disclaimer: This note was dictated by speech recognition. Minor errors in swimming coach or instructor may be present due to voice recognition software. Attending Provider Attestation/Addendum I reviewed labs, imaging, EKG, home medications and prior available records. Face to face evaluation was performed by me. I have personally examined the patient and discussed assessment and plan with the IM team. I reviewed the resident note and agree with the plan with exceptions as below. See my addendum in a separate addendum note
--- NOTE | 2024-07-13 15:55 | PC.DIETICIAN ---
Nutrition prescription If EN is indicated, consider: Nepro at 20 ml/hr via PEG/PEJ tube by pump. Advance 10 ml every 8 hrs to goal rate of 38 ml/hr x 24 hrs. If no IV fluids, water flushes of 25 ml/hr (or per MD).
--- NOTE | 2024-07-13 19:29 | PC.NURSE ---
MD Christianson speak with HUGH SIMON ([phone]) daughter of the pt regarding the procedure PEG Tube insertion and all HUGH SIMON's question were answered. MD Christianson will hold the procedure for now and ordered a diet for the pt.
[2024-07-13] MEDS: APIXABAN 2.5 MG TABLET 5 MG PO (20:25)
[2024-07-13] MEDS: MIRTAZAPINE 15 MG TABLET PO (20:25)
--- NOTE | 2024-07-13 22:14 | PD.IMPROG ---
Documentation for date of: 07/13/24 Subjective Subjective Interval history: Spoke with the family today they want to wait for PEG insertion as the patient asked for food Swallowing evaluation done Patient will be on dysphagia 3 diet Exam Vital Signs Temp Pulse Resp BP Pulse Ox O2 Del Method 97.4 F 82 20 99/57 L 93 L Room Air 07/13/24 20:00 07/13/24 21:51 07/13/24 21:51 07/13/24 20:25 07/13/24 20:00 07/13/24 20:00 Objective Labs 07/13/24 04:30 07/13/24 04:30 Labs: Laboratory Results - last 24 hr 07/13/24 07/13/24 07/13/24 01:50 04:30 07:09 WBC 13.6 H RBC 4.52 Hgb 11.8 L Hct 38.0 MCV 84 MCH 26.1 MCHC 31.1 RDW Std Deviation 60.3 H Plt Count 288 Neut % (Auto) 85 H Lymph % (Auto) 13 [place] % (Auto) 1 Eos % (Auto) 0 Baso % (Auto) 0 Neut # (Auto) 11.6 H Lymph # (Auto) 1.8 [place] # (Auto) 0.1 Eos # (Auto) 0.0 Baso # (Auto) 0.0 Immature Gran # (Auto) 0.15 H Absolute Nucleated RBC 0.03 H Immature Gran % 1 H Nucleated RBC % 0 Sodium 139 Potassium 4.4 D Chloride 102 Carbon Dioxide 21.7 Anion Gap 15 BUN 35 H Creatinine 1.8 H Estim Creat Clear Calc 24.0 L eGFR 30 L BUN/Creatinine Ratio 19 [address] Glu mg/dL 94 Hemoglobin A1c 4.9 Calculated Osmolality 287 Lactic Acid 1.8 Calcium 9.5 Corrected Calcium 10.2 H Phosphorus 4.1 Magnesium 1.9 Total Bilirubin 0.6 AST 19 ALT 12 Alkaline Phosphatase 109 Total Protein 5.9 Albumin 3.1 L Globulin 2.8 Albumin/Globulin Ratio 1.1 L Ur Collection Type Catheter Urine Color Yellow Urine Clarity Turbid A Urine pH 5.5 Ur Specific [place] 1.021 Urine Protein 1+ A Urine Glucose (UA) Negative Urine Ketones Trace Urine Blood Negative Urine Nitrite Negative Urine Bilirubin 1+ A Urine Urobilinogen (Auto) 3.0 Ur Leukocyte Esterase Positive Urine RBC 0 Urine WBC 84 H Ur Squamous Epith Cells < 1 Urine Bacteria 3+ A Hyaline Casts < 1 Ur Culture Indicated? Yes Impressions Impression: 1 failure to thrive I will wait for the family's decision Will wait for PEG placement Dysphagia 3 diet Assessment & Plan A&P Narrative # Failure to thrive Plan Case discussed in detail with the ER physician Difficult to put a PEG tube for further management of failure to thrive however will discuss with the family And attempt should be made if they agree To sustain appropriate nutrition for the patient by placement of a PEG tube Other medical problems include 1 end-stage renal disease hemodialysis MWF 2 chronic A-fib on Eliquis 3 status post exploratory laparotomy for perforated gastric ulcer Ramsey's patch and drainage of the subphrenic abscesses by IR drainage Thank you very much for the opportunity to participate in care of this patient Time Spent With Patient Time: Total time spent is greater than 50% in coordination of care (as documented) at patient's floor/unit and/or counseling patient:
[2024-07-14] VITALS (13 sets, daily range): BP systolic 100–135; BP diastolic 59–87; PULSE 19–115; RESP 15–95; TEMP 36.1–36.6; O2SAT 91–99
[2024-07-14] MEDS: DiphenhydrAMINE INJ 50 MG/ML VIAL 12.5 MG IVP (01:29)
[2024-07-14] MEDS: MIDODRINE 5 MG TABLET PO ×2 (05:22→21:36)
[2024-07-14] MEDS: RINGERS LACTATED 1000 ML 1,000 ML 75 ML IV (05:26)
[2024-07-14 05:42] LABS: Basophils % (Auto) 0 % (0-2.5); Eosinophils % (Auto) 0 % (0-10); Hematocrit 33.5 % (36.0-46.0); Hemoglobin 10.6 g/dL (12.0-16.0); Immature Granulocytes % (Auto) 1 % (0-0); Immature Granulocytes Auto 0.15 Thou/mm3 (0.00-0.00); Lymphocytes # (Auto) 1.7 Thou/mm3 (1.0-4.8); Lymphocytes % (Auto) 16 % (10-50); Mean Corpuscular HGB Conc 31.6 g/dl (31.0-37.0); Mean Corpuscular Hemoglobin 26.2 pg (25.0-35.0); Mean Corpuscular Volume 83 fL (80-100); Monocytes # (Auto) 0.7 Thou/mm3 (0.0-0.8); Monocytes % (Auto) 7 % (0-12); Neutrophils # (Auto) 8.2 Thou/mm3 (1.8-7.7); Neutrophils % (Auto) 76 % (37-80); Nucleated Red Blood Cell # 0.02 Thou/mm3 (0.00-0.00); Nucleated Red Blood Cell % 0 /100 WBC (0); Platelet Count 274 Thou/mm3 (140-440); RDW Standard Deviation 59.6 fL (36.4-46.3); Red Blood Count 4.04 Miln/mm3 (4.00-5.20); White Blood Count 10.8 Thou/mm3 (3.6-11.0)
[2024-07-14 06:20] LABS: Alanine Aminotransferase 12 U/L (10-49); Albumin, Serum 2.9 gm/dL (3.4-4.8); Albumin/Globulin Ratio 1.1 (1.2-2.2); Alkaline Phosphatase 87 U/L (46-116); Anion Gap 11 (7-16); Aspartate Amino Transferase 26 U/L (0-34); BUN/Creatinine Ratio 22 Ratio (12-20); Bilirubin,Total 0.4 mg/dL (0.3-1.2); Blood Urea Nitrogen 38 mg/dL (9-23); Calcium 9.3 mg/dL (8.3-10.6); Calcium (Corrected) 10.2 mg/dL (8.5-10.1); Carbon Dioxide 24.1 mMol/L (20.0-31.0); Chloride 105 mMol/L (98-107); Creatinine (Component) 1.7 mg/dL (0.6-1.3); Estimated Creatinine Clearance 25.4 mL/min (>60); Globulin 2.6 gm/dL (2.3-3.5); Glucose 86 mg/dL (74-106); Magnesium 1.8 mg/dL (1.6-2.6); Osmolality,Calculated 287 (275-295); Phosphorous 3.2 mg/dL (2.4-5.1); Potassium 4.3 mMol/L (3.4-5.1); Sodium 140 mMol/L (136-145); Total Protein 5.5 gm/dL (5.7-8.2); eGFR 32 See Note
[2024-07-14] MEDS: SUCRALFATE SUSP 1 GM/10 ML UDC PO ×3 (07:36→17:52)
[2024-07-14] MEDS: droNABinol 2.5 MG CAPSULE 10 MG PO ×2 (07:36→17:52)
[2024-07-14] MEDS: cefTRIAXone 1,000 MG in SODIUM CHLORIDE 0.9% (P) 50 ML 100 MG IV (08:48)
[2024-07-14] MEDS: PANTOPRAZOLE INJ 40 MG VIAL IVP ×2 (08:50→21:32)
[2024-07-14] MEDS: SODIUM BICARBONATE 650 MG TABLET PO (08:51)
[2024-07-14] MEDS: METOPROLOL SUCCINATE XL 25 MG TABCR PO (08:51)
[2024-07-14] MEDS: AMIODARONE HCL 200 MG TABLET PO ×2 (08:51→21:33)
[2024-07-14] MEDS: APIXABAN 2.5 MG TABLET 5 MG PO ×2 (08:52→21:33)
--- NOTE | 2024-07-14 10:21 | PC.SS ---
Patient is alert/oriented. Patient is a resident of [facility]. She has been at facility for the last 3-4 weeks. Daughter, Jorge, is at bedside and provided a brief update. She states her other sister, Debbie Castellanos, daughter of patient, is the new [facility] medical decision maker. Debbie, daughter, . Patient will return to facility. Patient's daughter is requesting a PT evaluation. She wants patient to be working with PT daily. Patient is on dialysis every M/F @ 2p.m. with Dr. August on [facility]. Patient PCP: Dr. August. Family states if patient can tolerate eating, they would rather not do a peg tube. Patient is bed bound and will need gurney transport.
--- NOTE | 2024-07-14 14:37 | ESPR_ITS ---
<Statement entered by Miguel Peraza MD - 07/15/24 15:38> Senior Resident Attestation: I supervised/discussed management plan with internet sales director physician Dr. Stanley, and was involved in the care of this patient. I personally saw and examined the patient and discussed the assessment and plan with the entire medicine team, including my attending. I agree with the assessment and plan as documented. Patient's care was discussed with attending physician, Dr. See. Miguel Peraza MD PGY-2. Documentation for date of: 07/14/24 Subjective Subjective Interval history: Patient seen at bedside. No acute overnight events. She was initially scheduled for PEG tube insertion to be done yesterday, however the family reported that she was requesting for food and wanted to hold off on that and try oral diet. At bedside today, nurse and daughter confirms that she has only had few bites of her food. Will monitor intake today and talk to family about further options. Otherwise, labs reviewed and ADILSON seems to be improving, nephrology is not scheduling a dialysis session today. Exam Vital Signs Temp Pulse Resp BP Pulse Ox O2 Del Method 97.4 F 115 H 18 131/80 H 95 Room Air 07/14/24 11:30 07/14/24 11:30 07/14/24 11:30 07/14/24 11:30 07/14/24 11:30 07/14/24 11:30 Narrative Exam GENERAL: AAOX3 NEURO: [employer] INS[employer]OR grossly intact, moves extremities x4 HEENT: Moist mucosa. Eyes open, symmetrical, & clear CARDIO: No chest pain on palpation. Normal rate, irregular rhythm no obvious murmurs PULM: No noted coughing/dyspnea. Lungs CTA B/L GI: Abdomen soft, nondistended, no pain on palpation. BSx4 URO/RAILWAY SIGNAL ELECTRICIAN:: No further abnormalities noted. SKIN/MSK/EXT: No wounds/rashes/edema/amputations, no pain on palpation. Pedal pulses present B/L Objective Labs 07/17/24 05:05 07/17/24 05:05 Labs: Laboratory Results - last 24 hr 07/14/24 04:27 WBC 10.8 RBC 4.04 Hgb 10.6 L Hct 33.5 L MCV 83 MCH 26.2 MCHC 31.6 RDW Std Deviation 59.6 H Plt Count 274 Neut % (Auto) 76 Lymph % (Auto) 16 [place] % (Auto) 7 Eos % (Auto) 0 Baso % (Auto) 0 Neut # (Auto) 8.2 H Lymph # (Auto) 1.7 [place] # (Auto) 0.7 Eos # (Auto) 0.0 Baso # (Auto) 0.0 Immature Gran # (Auto) 0.15 H Absolute Nucleated RBC 0.02 H Immature Gran % 1 H Nucleated RBC % 0 Sodium 140 Potassium 4.3 Chloride 105 Carbon Dioxide 24.1 Anion Gap 11 BUN 38 H Creatinine 1.7 H Estim Creat Clear Calc 25.4 L eGFR 32 L BUN/Creatinine Ratio 22 H Glucose 86 Calculated Osmolality 287 Calcium 9.3 Corrected Calcium 10.2 H Phosphorus 3.2 Magnesium 1.8 Total Bilirubin 0.4 AST 26 ALT 12 Alkaline Phosphatase 87 D Total Protein 5.5 L Albumin 2.9 L Globulin 2.6 Albumin/Globulin Ratio 1.1 L Quality Measures Quality Measures VTE prophylaxis and none Advance care planning discussed with:: child Assessment & Plan Assessment Current Active Medications: Generic Name Dose Route Start Last Admin Trade Name Freq PRN Reason Stop Dose Admin Acetaminophen 650 mg 07/12/24 20:33 Acetaminophen 325 Mg Tablet PO 08/11/24 20:32 Q6H PRN Fever >101.5 Al Hydrox/Mg Hydrox/Simethicone 30 ml 07/12/24 20:51 Mg Hyd/Al Hyd/Ronald (Maalox Reg) Susp 30 Ml Udc PO 08/11/24 20:50 QID PRN UPSET STOMACH/INDIGESTION Amiodarone HCl 200 mg 07/12/24 21:00 07/14/24 08:51 Amiodarone Hcl 200 Mg Tablet PO 08/11/24 20:59 200 mg BID ANGELICA Administration Apixaban 5 mg 07/13/24 09:00 07/14/24 08:52 Apixaban 2.5 Mg Tablet PO 08/12/24 08:59 5 mg BID ANGELICA Administration Dextrose 25 ml 07/12/24 21:11 Dextrose 50%-Water Inj 50 Ml Syringe IV 08/11/24 21:10 Q15MIN PRN BG 50-70 responsive npo pt Dextrose 50 ml 07/12/24 21:11 Dextrose 50%-Water Inj 50 Ml Syringe IV 08/11/24 21:10 Q15MIN PRN BG <50 OR BG <70 & pt unresponsive Dronabinol 10 mg 07/13/24 07:30 07/14/24 07:36 Dronabinol 2.5 Mg Capsule PO 08/12/24 07:29 10 mg BIDAC ANGELICA Administration Glucagon 1 mg 07/12/24 21:11 Glucagon Inj 1 Mg Vial IM Q15MIN PRN BG <70, and no IV access Ceftriaxone Sodium 1,000 mg/ 50 mls @ 100 mls/hr 07/13/24 09:30 07/14/24 08:48 Sodium Chloride IV 07/20/24 09:13 100 mls/hr QDAY ANGELICA Administration Lactated Ringer's 1,000 mls @ 75 mls/hr 07/13/24 14:00 07/14/24 05:26 Lactated Ringers IV 08/12/24 07:35 75 mls/hr .[id number] ANGELICA Administration Insulin Glargine 12 unit 07/13/24 09:00 07/14/24 08:52 Insulin Glargine (Lantus) 5 Unit/0.05 Ml (Per 5 Units) SC 08/12/24 08:59 Not Given QDAY ANGELICA Insulin Human Lispro 0 unit 07/13/24 07:30 07/14/24 12:02 Insulin Lispro (Admelog) 1 Unit/0.01 Ml Unit SC 08/12/24 07:29 Not Given AC [facility] Protocol Metoprolol Succinate 25 mg 07/13/24 09:00 07/14/24 08:51 Metoprolol Succinate Xl 25 Mg Tabcr PO 08/12/24 08:59 25 mg QDAY ANGELICA Administration Midodrine 5 mg 07/12/24 22:00 07/14/24 13:47 Midodrine 5 Mg Tablet PO 08/11/24 21:59 Not Given TID ANGELICA Mirtazapine 15 mg 07/13/24 21:00 07/13/24 20:25 Mirtazapine 15 Mg Tablet PO 08/12/24 20:59 15 mg HS ANGELICA Administration Ondansetron HCl 4 mg 07/12/24 20:33 Ondansetron Inj 2 Mg/Ml Inj 2 Ml IV 08/11/24 20:32 Q6H PRN NAUSEA OR VOMITING Protocol Pantoprazole Sodium 40 mg 07/13/24 09:30 07/14/24 08:50 Pantoprazole Inj 40 Mg Vial IVP 08/12/24 09:29 40 mg BID ANGELICA Administration Sennosides 1 tab 07/12/24 20:44 Senna Tablet PO 08/11/24 20:43 QDAY PRN CONSTIPATION Protocol Sodium Bicarbonate 650 mg 07/13/24 09:00 07/14/24 08:51 Sodium Bicarbonate 650 Mg Tablet PO 08/12/24 08:59 650 mg QDAY ANGELICA Administration Sucralfate 1 gm 07/13/24 11:30 07/14/24 12:01 Sucralfate Susp 1 Gm/10 Ml Udc PO 08/12/24 11:29 1 gm AC ANGELICA Administration Plan Summary: The patient is a 69-year-old female with past medical history of diabetes mellitus, hypertension, atrial fibrillation on Eliquis, end-stage renal disease on hemodialysis (MWF), history of gastric ulcers, recent hospitalization [facility] for perforated gastric ulcer status post exploratory laparotomy complicated by recurrent abdominal and pelvic abscesses who presented from rehab with a chief complaint of vomiting. Patient admitted to hospital for further workup for dysphagia poor p.o. intake and possible intervention for adequate nutrition. #Failure to thrive #Nausea and vomiting #History of gastric ulcers Per patient's daughter on director of graduate medical education of [facility] home patient has significantly poor p.o. intake, takes only 2-3 bites, unable to maintain a normal appetite. Patient does complain of mild epigastric pain, patient does have history of gastric ulcers recently was admitted to hospital for complicated perforated gastric ulcer. Patient is able to take a few bites but GI Dr. Christianson was consulted, will possibly plan patient for PEG tube if family consents. 07/14/2024- She was initially scheduled for PEG tube insertion to be done yesterday, however the family reported that she was requesting for food and wanted to hold off on that and try oral diet. At bedside today, nurse and daughter confirms that she has only had few bites of her food. Will monitor intake today and talk to family about further options. Plan: ? GI consulted, appreciate recommendations - For possible PEG tube placement ? Protonix 40mg BID ? Maalox as needed ? Patient on dronabinol, resumed, mirtazapine resumed #A-fib with RVR Patient was noted to be in A-fib with RVR in ED, was given diltiazem 20 IV x 1, plan was to start patient on diltiazem drip. Patient's heart rate fluctuating in 90s to 110, no rapid ventricular response noted. Patient does have a history of atrial fibrillation, currently on amiodarone 200 twice daily, metoprolol succinate 25 p.o. daily and Eliquis 5 mg twice daily. Patient's last echo 05/16/2024 shows normal LV size and function, EF 55 to 60%, mild LVH stage I diastolic dysfunction. 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 Mild AV Sclerosis without stenosis. Plan: ?Resumed home dose amiodarone 200 twice daily, metoprolol succinate 25 mg p.o. daily ?Resumed Eliquis 5 mg twice daily ?Telemonitoring ?Consult cardio consult in a.m. #Diabetes mellitus Patient has history of diabetes mellitus, last hemoglobin A1c was 6.3. Plan: ?Sliding scale insulin ?Resumed home dose Lantus 12 units daily ?Fingerstick blood glucose, blood glucose goal 140-180 ?Hypoglycemia protocol #ADILSON on hemodialysis MWF Patient received dialysis treatment yesterday, reports of allergic rash postdialysis. Received Benadryl Plan: -Continue inpatient dialysis, nephrology consulted ?Resume home dose midodrine DVT prophylaxis: Eliquis GI prophylaxis: IV Protonix Diet: N.p.o. Lines: Peripheral IV Code status: DNR/DNI Case was discussed with Dr Peraza PGY-2 and attending physician, Dr Esa Stanley MD PGY-1 Disclaimer: This note was dictated by speech recognition. Minor errors in hospital unit coordinator may be present due to voice recognition software. Attending Provider Attestation/Addendum 69-year-old female with multiple comorbidities including hypertension, hyperlipidemia, atrial fibrillation on Eliquis, gastric ulceration with perforation status post expiratory laparotomy complicated by pelvic abscesses status post drainage and end-stage renal disease on hemodialysis Wednesday, Wednesday and Wednesday who presented to the ER with failure to thrive. Furthermore, patient has been having decreased p.o. intake discussed with family regarding need for motivation for food intake. Also discussed that if patient does not have adequate food intake she might need further workup and possibly a PEG tube placement.I reviewed above note and agree with findings and plans. I have also personally examined the patient with medicine team and went over assessment and plan with medical team including internet sales director and resident physician.
--- NOTE | 2024-07-14 14:40 | ESPR_ITS ---
Documentation for date of: 07/14/24 Subjective Subjective Interval history: The patient is a 69-year-old female with significant past medical history of diabetes mellitus, hypertension, A-fib on Eliquis, ADILSON on hemodialysis, history of gastric ulcers, recent hospitalization in [facility] for perforated gastric ulcer s/p exploratory laparotomy complicated by recurrent abdominal and pelvic abscesses presented from rehab with chief complaint of vomiting. Vomiting is further aggravated by trying to eat, as after taking 2-3 bites she starts vomiting. Denies any fever or chills, headache, chest pain, abdominal pain, any leg swelling. The last hemodialysis and was 1 day ago. During our evaluation, her vitals were stable with soft blood pressure, saturating 92 to 95% on room air. Labs are significant for white count 13.6, hemoglobin 11.8, sodium 139, potassium 4.4, BUN 35, creatinine 1.8, GFR 40, A1c 4.9, corrected calcium 10.2. UA revealed turbid urine, protein 1+, bilirubin 1+, leukocyte esterase positive, WBC 84, bacteria 3+. Chest x-ray significant for mild heart failure pattern. Abdomen/pelvis CT significant for severe gastritis pattern, hyperdense gallbladder with possible pancreatitis. PMH: As mentioned above SHX: S/p exploratory laparotomy secondary to perforated gastric ulcer further complicated by recurrent abdominal and pelvic abscesses Social history: Denies smoking, alcohol use or any illicit drug use Family history: Unremarkable Medications: To be reconciled 05/13/2025: The patient was interviewed and examined at the bedside this morning. She reported doing okay. Her vitals were stable with mild tachycardia with heart rate 115. CBC fairly at baseline, chemistry panel revealed sodium 140, potassium 4.3, BUN 38, creatinine 1.7, GFR 32 and corrected calcium 10.2. We will continue to hold off on hemodialysis, and continue to monitor renal panel. Exam Vital Signs Temp Pulse Resp BP Pulse Ox O2 Del Method 97.4 F 115 H 18 131/80 H 95 Room Air 07/14/24 11:30 07/14/24 11:30 07/14/24 11:30 07/14/24 11:30 07/14/24 11:30 07/14/24 11:30 Narrative Exam General: No acute distress, Alert and Oriented x 3 HEENT: Moist mucous membranes, oropharynx clear Neck: Supple, No masses, No JVD CVS: S1S2 Regular rate and rhythm, No murmurs, rubs or gallops Lungs: Clear to auscultation with no accessory use, no wheeze no rhonchi Abd: Soft, NT/ND, +BS, no organomegaly Ext: No edema, warm and well perfused Skin: No rash Psych: Appropriate mood and affect Objective Labs 07/14/24 04:27 07/14/24 04:27 Labs: Laboratory Results - last 24 hr 07/14/24 04:27 WBC 10.8 RBC 4.04 Hgb 10.6 L Hct 33.5 L MCV 83 MCH 26.2 MCHC 31.6 RDW Std Deviation 59.6 H Plt Count 274 Neut % (Auto) 76 Lymph % (Auto) 16 [place] % (Auto) 7 Eos % (Auto) 0 Baso % (Auto) 0 Neut # (Auto) 8.2 H Lymph # (Auto) 1.7 [place] # (Auto) 0.7 Eos # (Auto) 0.0 Baso # (Auto) 0.0 Immature Gran # (Auto) 0.15 H Absolute Nucleated RBC 0.02 H Immature Gran % 1 H Nucleated RBC % 0 Sodium 140 Potassium 4.3 Chloride 105 Carbon Dioxide 24.1 Anion Gap 11 BUN 38 H Creatinine 1.7 H Estim Creat Clear Calc 25.4 L eGFR 32 L BUN/Creatinine Ratio 22 H Glucose 86 Calculated Osmolality 287 Calcium 9.3 Corrected Calcium 10.2 H Phosphorus 3.2 Magnesium 1.8 Total Bilirubin 0.4 AST 26 ALT 12 Alkaline Phosphatase 87 D Total Protein 5.5 L Albumin 2.9 L Globulin 2.6 Albumin/Globulin Ratio 1.1 L Quality Measures Quality Measures VTE prophylaxis and none Advance care planning discussed with:: patient and other (Primary hospitalist team ) Assessment & Plan Assessment Current Active Medications: Generic Name Dose Route Start Last Admin Trade Name Freq PRN Reason Stop Dose Admin Acetaminophen 650 mg 07/12/24 20:33 Acetaminophen 325 Mg Tablet PO 08/11/24 20:32 Q6H PRN Fever >101.5 Al Hydrox/Mg Hydrox/Simethicone 30 ml 07/12/24 20:51 Mg Hyd/Al Hyd/Ronald (Maalox Reg) Susp 30 Ml Udc PO 08/11/24 20:50 QID PRN UPSET STOMACH/INDIGESTION Amiodarone HCl 200 mg 07/12/24 21:00 07/14/24 08:51 Amiodarone Hcl 200 Mg Tablet PO 08/11/24 20:59 200 mg BID ANGELICA Administration Apixaban 5 mg 07/13/24 09:00 07/14/24 08:52 Apixaban 2.5 Mg Tablet PO 08/12/24 08:59 5 mg BID ANGELICA Administration Dextrose 25 ml 07/12/24 21:11 Dextrose 50%-Water Inj 50 Ml Syringe IV 08/11/24 21:10 Q15MIN PRN BG 50-70 responsive npo pt Dextrose 50 ml 07/12/24 21:11 Dextrose 50%-Water Inj 50 Ml Syringe IV 08/11/24 21:10 Q15MIN PRN BG <50 OR BG <70 & pt unresponsive Dronabinol 10 mg 07/13/24 07:30 07/14/24 07:36 Dronabinol 2.5 Mg Capsule PO 08/12/24 07:29 10 mg BIDAC ANGELICA Administration Glucagon 1 mg 07/12/24 21:11 Glucagon Inj 1 Mg Vial IM Q15MIN PRN BG <70, and no IV access Ceftriaxone Sodium 1,000 mg/ 50 mls @ 100 mls/hr 07/13/24 09:30 07/14/24 08:48 Sodium Chloride IV 07/20/24 09:13 100 mls/hr QDAY ANGELIAC Administration Lactated Ringer's 1,000 mls @ 75 mls/hr 07/13/24 14:00 07/14/24 05:26 Lactated Ringers IV 08/12/24 07:35 75 mls/hr .[id number] ANGELICA Administration Insulin Glargine 12 unit 07/13/24 09:00 07/14/24 08:52 Insulin Glargine (Lantus) 5 Unit/0.05 Ml (Per 5 Units) SC 08/12/24 08:59 Not Given QDAY ANGELICA Insulin Human Lispro 0 unit 07/13/24 07:30 07/14/24 12:02 Insulin Lispro (Admelog) 1 Unit/0.01 Ml Unit SC 08/12/24 07:29 Not Given AC [facility] Protocol Metoprolol Succinate 25 mg 07/13/24 09:00 07/14/24 08:51 Metoprolol Succinate Xl 25 Mg Tabcr PO 08/12/24 08:59 25 mg QDAY ANGELICA Administration Midodrine 5 mg 07/12/24 22:00 07/14/24 13:47 Midodrine 5 Mg Tablet PO 08/11/24 21:59 Not Given TID ANGELICA Mirtazapine 15 mg 07/13/24 21:00 07/13/24 20:25 Mirtazapine 15 Mg Tablet PO 08/12/24 20:59 15 mg HS ANGELICA Administration Ondansetron HCl 4 mg 07/12/24 20:33 Ondansetron Inj 2 Mg/Ml Inj 2 Ml IV 08/11/24 20:32 Q6H PRN NAUSEA OR VOMITING Protocol Pantoprazole Sodium 40 mg 07/13/24 09:30 07/14/24 08:50 Pantoprazole Inj 40 Mg Vial IVP 08/12/24 09:29 40 mg BID ANGELICA Administration Sennosides 1 tab 07/12/24 20:44 Senna Tablet PO 08/11/24 20:43 QDAY PRN CONSTIPATION Protocol Sodium Bicarbonate 650 mg 07/13/24 09:00 07/14/24 08:51 Sodium Bicarbonate 650 Mg Tablet PO 08/12/24 08:59 650 mg QDAY ANGELICA Administration Sucralfate 1 gm 07/13/24 11:30 07/14/24 12:01 Sucralfate Susp 1 Gm/10 Ml Udc PO 08/12/24 11:29 1 gm AC ANGELICA Administration Plan The patient is a 69-year-old female with significant past medical history of diabetes mellitus, hypertension, A-fib on Eliquis, ADILSON on hemodialysis MWF, history of gastric ulcers, recent hospitalization in [facility] for perforated gastric ulcer s/p exploratory laparotomy complicated by recurrent abdominal and pelvic abscesses presented from rehab with chief complaint of vomiting. Nephrology consultation was done for further management of ADILSON on hemodialysis. #ADILSON on hemodialysis MWF, improving Patient had ATN while she was admitted to ICU for soft blood pressure on 05/14/2024. Later she was started on hemodialysis for volume overload and oliguria. Presented with BUN 29, creatinine 1.8 and GFR 30, but within the last 3 months or GFR was worsened, gradually has been improving. 07/14/2024: BUN 35, creatinine 1.8 and GFR 30 -Avoid nephrotoxic drugs -Renal dose modifications -Hold off on hemodialysis today, may proceed with hemodialysis tomorrow morning if required, currently seems to be euvolemic and doing okay. -Daily a.m. renal panel #Mild hypercalcemia Likely secondary to dehydration in the setting of poor oral intake, nausea and vomiting further complicated by aggressive ultrafiltration during hemodialysis -Encouraged oral rehydration -Monitor calcium level daily in the a.m. #Gastritis #Dysphagia #Intractable nausea and vomiting #History of gastric ulcers #A-fib with RVR #Diabetes mellitus type II -Management deferred to primary hospitalist team Thank you for your opportunity to participate nephrology team in this patient care. The patient's management plan was discussed with my attending physician MD Sameer Roman MD, PGY2 Attending Provider Attestation/Addendum Patient seen and examined with resident physician Dr. Corcoran. Note reviewed, agree with findings and recommendations. Patient with ADILSON secondary to ATN from the previous admission. Patient was on dialysis twice weekly and comes with decreased p.o. intake. Noted creatinine 1.7. Patient stated she is making good urine. Hold off on dialysis. Suspect renal recovery. If creatinine continues to improve will plan for discontinuing dialysis and catheter in am--off dialysis for 72 hours. Strict I&O's ordered.. No family around. Thank you Dr. Narvaez for allowing me to participate in the care of Ms. Castellanos
--- NOTE | 2024-07-14 20:33 | ESPR_ITS ---
Documentation for date of: 07/14/24 Subjective Subjective Interval history: Patient evaluated Episode of rectal bleeding No need for any invasive GI workup such as colonoscopy Case discussed with internal medicine team Patient eating somewhat food from home Family still wants to hold off placing a gastrostomy tube Exam Vital Signs Temp Pulse Resp BP Pulse Ox O2 Del Method 97.4 F 111 H 94 H 114/84 94 L Room Air 07/14/24 16:00 07/14/24 20:00 07/14/24 16:00 07/14/24 16:00 07/14/24 16:00 07/14/24 16:00 Objective Labs 07/14/24 04:27 07/14/24 04:27 Labs: Laboratory Results - last 24 hr 07/14/24 04:27 WBC 10.8 RBC 4.04 Hgb 10.6 L Hct 33.5 L MCV 83 MCH 26.2 MCHC 31.6 RDW Std Deviation 59.6 H Plt Count 274 Neut % (Auto) 76 Lymph % (Auto) 16 [place] % (Auto) 7 Eos % (Auto) 0 Baso % (Auto) 0 Neut # (Auto) 8.2 H Lymph # (Auto) 1.7 [place] # (Auto) 0.7 Eos # (Auto) 0.0 Baso # (Auto) 0.0 Immature Gran # (Auto) 0.15 H Absolute Nucleated RBC 0.02 H Immature Gran % 1 H Nucleated RBC % 0 Sodium 140 Potassium 4.3 Chloride 105 Carbon Dioxide 24.1 Anion Gap 11 BUN 38 H Creatinine 1.7 H Estim Creat Clear Calc 25.4 L eGFR 32 L BUN/Creatinine Ratio 22 H Glucose 86 Calculated Osmolality 287 Calcium 9.3 Corrected Calcium 10.2 H Phosphorus 3.2 Magnesium 1.8 Total Bilirubin 0.4 AST 26 ALT 12 Alkaline Phosphatase 87 D Total Protein 5.5 L Albumin 2.9 L Globulin 2.6 Albumin/Globulin Ratio 1.1 L Impressions Impression: # Failure to thrive # Rectal bleeding monitor CBC Assessment & Plan A&P Narrative # Failure to thrive Plan Case discussed in detail with the ER physician Difficult to put a PEG tube for further management of failure to thrive however will discuss with the family And attempt should be made if they agree To sustain appropriate nutrition for the patient by placement of a PEG tube Other medical problems include 1 end-stage renal disease hemodialysis MWF 2 chronic A-fib on Eliquis 3 status post exploratory laparotomy for perforated gastric ulcer Ramsey's patch and drainage of the subphrenic abscesses by IR drainage Thank you very much for the opportunity to participate in care of this patient Time Spent With Patient Time: Total time spent is greater than 50% in coordination of care (as documented) at patient's floor/unit and/or counseling patient:
[2024-07-14] MEDS: MIRTAZAPINE 15 MG TABLET PO (21:33)
[2024-07-15] VITALS (13 sets, daily range): BP systolic 94–129; BP diastolic 57–95; PULSE 19–108; RESP 17–93; TEMP 36.1–36.8; O2SAT 91–96
[2024-07-15] MEDS: RINGERS LACTATED 1000 ML 1,000 ML 75 ML IV ×2 (02:34→17:22)
[2024-07-15] MEDS: MIDODRINE 5 MG TABLET PO (05:31)
[2024-07-15 05:41] LABS: Basophils % (Auto) 1 % (0-2.5); Eosinophils % (Auto) 0 % (0-10); Hematocrit 34.9 % (36.0-46.0); Hemoglobin 10.7 g/dL (12.0-16.0); Immature Granulocytes % (Auto) 2 % (0-0); Immature Granulocytes Auto 0.14 Thou/mm3 (0.00-0.00); Lymphocytes # (Auto) 0.9 Thou/mm3 (1.0-4.8); Lymphocytes % (Auto) 14 % (10-50); Mean Corpuscular HGB Conc 30.7 g/dl (31.0-37.0); Mean Corpuscular Hemoglobin 25.8 pg (25.0-35.0); Mean Corpuscular Volume 84 fL (80-100); Monocytes # (Auto) 0.5 Thou/mm3 (0.0-0.8); Monocytes % (Auto) 8 % (0-12); Neutrophils # (Auto) 5.2 Thou/mm3 (1.8-7.7); Neutrophils % (Auto) 76 % (37-80); Nucleated Red Blood Cell % 0 /100 WBC (0); Platelet Count 259 Thou/mm3 (140-440); RDW Standard Deviation 60.7 fL (36.4-46.3); Red Blood Count 4.15 Miln/mm3 (4.00-5.20); White Blood Count 6.8 Thou/mm3 (3.6-11.0)
[2024-07-15 06:40] LABS: Alanine Aminotransferase 10 U/L (10-49); Albumin, Serum 2.7 gm/dL (3.4-4.8); Albumin/Globulin Ratio 1.2 (1.2-2.2); Alkaline Phosphatase 90 U/L (46-116); Anion Gap 9 (7-16); Aspartate Amino Transferase 23 U/L (0-34); BUN/Creatinine Ratio 23 Ratio (12-20); Bilirubin,Total 0.6 mg/dL (0.3-1.2); Blood Urea Nitrogen 32 mg/dL (9-23); Calcium 9.2 mg/dL (8.3-10.6); Calcium (Corrected) 10.2 mg/dL (8.5-10.1); Carbon Dioxide 25.5 mMol/L (20.0-31.0); Chloride 107 mMol/L (98-107); Creatinine (Component) 1.4 mg/dL (0.6-1.3); Estimated Creatinine Clearance 30.9 mL/min (>60); Globulin 2.3 gm/dL (2.3-3.5); Glucose 65 mg/dL (74-106); Magnesium 1.6 mg/dL (1.6-2.6); Osmolality,Calculated 286 (275-295); Phosphorous 2.4 mg/dL (2.4-5.1); Potassium 3.6 mMol/L (3.4-5.1); Sodium 141 mMol/L (136-145); eGFR 41 See Note
[2024-07-15] MEDS: PANTOPRAZOLE INJ 40 MG VIAL IVP ×2 (08:02→20:33)
[2024-07-15] MEDS: cefTRIAXone 1,000 MG in SODIUM CHLORIDE 0.9% (P) 50 ML 100 MG IV (08:02)
[2024-07-15] MEDS: droNABinol 2.5 MG CAPSULE 10 MG PO ×2 (08:03→17:22)
[2024-07-15] MEDS: METOPROLOL SUCCINATE XL 25 MG TABCR PO (08:03)
[2024-07-15] MEDS: AMIODARONE HCL 200 MG TABLET PO ×2 (08:03→20:32)
[2024-07-15] MEDS: APIXABAN 2.5 MG TABLET 5 MG PO ×2 (08:03→20:33)
[2024-07-15] MEDS: SUCRALFATE SUSP 1 GM/10 ML UDC PO ×3 (08:04→17:22)
--- NOTE | 2024-07-15 13:24 | PD.RESPRO ---
Documentation for date of: 07/15/24 Subjective Subjective Interval history: Patient seen at bedside. No acute overnight events. Daughter at bedside and mention yesterday that she saw some bright red blood in patient's stool. GI Dr. Christianson updated on possible rectal bleeding, does not recommend any invasive workup like colonoscopy right now, continue to monitor Hgb. Otherwise, patient is somewhat eating some food from home, family still wants to hold off on PEG tube and see how much of that she is able to do. Labs reviewed, creatinine improving-1.4 today. 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 Eyes open, symmetrical, & clear CARDIO: No chest pain on palpation. Normal rate, irregular, no murmurs PULM: No noted coughing/dyspnea. Lungs CTA B/L GI: Abdomen soft, nondistended, no pain on palpation. BSx4 URO/LAB HEAD:: No further abnormalities noted. SKIN/MSK/EXT: No wounds/rashes/edema/amputations, no pain on palpation. Pedal pulses present B/L Objective Labs 07/17/24 05:05 07/17/24 05:05 Labs: Laboratory Results - last 24 hr 07/15/24 04:51 WBC 6.8 RBC 4.15 Hgb 10.7 L Hct 34.9 L MCV 84 MCH 25.8 MCHC 30.7 L RDW Std Deviation 60.7 H Plt Count 259 Neut % (Auto) 76 Lymph % (Auto) 14 [place] % (Auto) 8 Eos % (Auto) 0 Baso % (Auto) 1 Neut # (Auto) 5.2 Lymph # (Auto) 0.9 L [place] # (Auto) 0.5 Eos # (Auto) 0.0 Baso # (Auto) 0.0 Immature Gran # (Auto) 0.14 H Absolute Nucleated RBC 0.00 Immature Gran % 2 H Nucleated RBC % 0 Sodium 141 Potassium 3.6 D Chloride 107 Carbon Dioxide 25.5 Anion Gap 9 BUN 32 H Creatinine 1.4 H Estim Creat Clear Calc 30.9 L eGFR 41 L BUN/Creatinine Ratio 23 H Glucose 65 L Calculated Osmolality 286 Calcium 9.2 Corrected Calcium 10.2 H Phosphorus 2.4 Magnesium 1.6 Total Bilirubin 0.6 AST 23 ALT 10 Alkaline Phosphatase 90 Total Protein 5.0 L Albumin 2.7 L Globulin 2.3 Albumin/Globulin Ratio 1.2 Quality Measures Quality Measures VTE prophylaxis and none Advance care planning discussed with:: child Assessment & Plan Assessment Current Active Medications: Generic Name Dose Route Start Last Admin Trade Name Freq PRN Reason Stop Dose Admin Acetaminophen 650 mg 07/12/24 20:33 Acetaminophen 325 Mg Tablet PO 08/11/24 20:32 Q6H PRN Fever >101.5 Al Hydrox/Mg Hydrox/Simethicone 30 ml 07/12/24 20:51 Mg Hyd/Al Hyd/Ronald (Maalox Reg) Susp 30 Ml Udc PO 08/11/24 20:50 QID PRN UPSET STOMACH/INDIGESTION Amiodarone HCl 200 mg 07/12/24 21:00 07/15/24 08:03 Amiodarone Hcl 200 Mg Tablet PO 08/11/24 20:59 200 mg BID ANGELICA Administration Apixaban 5 mg 07/13/24 09:00 07/15/24 08:03 Apixaban 2.5 Mg Tablet PO 08/12/24 08:59 5 mg BID ANGELICA Administration Dextrose 25 ml 07/12/24 21:11 Dextrose 50%-Water Inj 50 Ml Syringe IV 08/11/24 21:10 Q15MIN PRN BG 50-70 responsive npo pt Dextrose 50 ml 07/12/24 21:11 Dextrose 50%-Water Inj 50 Ml Syringe IV 08/11/24 21:10 Q15MIN PRN BG <50 OR BG <70 & pt unresponsive Dronabinol 10 mg 07/13/24 07:30 07/15/24 08:03 Dronabinol 2.5 Mg Capsule PO 08/12/24 07:29 10 mg BIDAC ANGELICA Administration Glucagon 1 mg 07/12/24 21:11 Glucagon Inj 1 Mg Vial IM Q15MIN PRN BG <70, and no IV access Ceftriaxone Sodium 1,000 mg/ 50 mls @ 100 mls/hr 07/13/24 09:30 07/15/24 08:02 Sodium Chloride IV 07/20/24 09:13 100 mls/hr QDAY ANGELICA Administration Lactated Ringer's 1,000 mls @ 75 mls/hr 07/13/24 14:00 07/15/24 02:34 Lactated Ringers IV 08/12/24 07:35 75 mls/hr .[id number] ANGELICA Administration Insulin Glargine 12 unit 07/13/24 09:00 07/14/24 08:52 Insulin Glargine (Lantus) 5 Unit/0.05 Ml (Per 5 Units) SC 08/12/24 08:59 Not Given QDAY ANGELICA Insulin Human Lispro 0 unit 07/13/24 07:30 07/15/24 11:43 Insulin Lispro (Admelog) 1 Unit/0.01 Ml Unit SC 08/12/24 07:29 Not Given AC ANGELICA Protocol Metoprolol Succinate 25 mg 07/13/24 09:00 07/15/24 08:03 Metoprolol Succinate Xl 25 Mg Tabcr PO 08/12/24 08:59 25 mg QDAY ANGELICA Administration Midodrine 5 mg 07/12/24 22:00 07/15/24 13:02 Midodrine 5 Mg Tablet PO 08/11/24 21:59 Not Given TID ANGELICA Mirtazapine 15 mg 07/13/24 21:00 07/14/24 21:33 Mirtazapine 15 Mg Tablet PO 08/12/24 20:59 15 mg HS ANGELICA Administration Ondansetron HCl 4 mg 07/12/24 20:33 Ondansetron Inj 2 Mg/Ml Inj 2 Ml IV 08/11/24 20:32 Q6H PRN NAUSEA OR VOMITING Protocol Pantoprazole Sodium 40 mg 07/13/24 09:30 07/15/24 08:02 Pantoprazole Inj 40 Mg Vial IVP 08/12/24 09:29 40 mg BID ANGELICA Administration Sennosides 1 tab 07/12/24 20:44 Senna Tablet PO 08/11/24 20:43 QDAY PRN CONSTIPATION Protocol Sucralfate 1 gm 07/13/24 11:30 07/15/24 11:49 Sucralfate Susp 1 Gm/10 Ml Udc PO 08/12/24 11:29 1 gm AC ANGELICA Administration Plan Summary: The patient is a 69-year-old female with past medical history of diabetes mellitus, hypertension, atrial fibrillation on Eliquis, end-stage renal disease on hemodialysis (MWF), history of gastric ulcers, recent hospitalization [facility] for perforated gastric ulcer status post exploratory laparotomy complicated by recurrent abdominal and pelvic abscesses who presented from rehab with a chief complaint of vomiting. Patient admitted to hospital for further workup for dysphagia poor p.o. intake and possible intervention for adequate nutrition. #Failure to thrive #Nausea and vomiting #History of gastric ulcers Per patient's daughter on medical referral coordinator of jail home patient has significantly poor p.o. intake, takes only 2-3 bites, unable to maintain a normal appetite. Patient does complain of mild epigastric pain, patient does have history of gastric ulcers recently was admitted to hospital for complicated perforated gastric ulcer. Patient is able to take a few bites but GI Dr. Christianson was consulted, will possibly plan patient for PEG tube if family consents. 07/15/2024- Daughter at bedside and mention yesterday that she saw some bright red blood in patient's stool. GI Dr. Christianson updated on possible rectal bleeding, does not recommend any invasive workup like colonoscopy right now, continue to monitor Hgb. Otherwise, patient is somewhat eating some food from home, family still wants to hold off on PEG tube and see how much of that she is able to do. Plan: ? GI consulted, appreciate recommendations - For possible PEG tube placement, holding off for now ? Protonix 40mg BID ? Maalox as needed ? Patient on dronabinol, resumed, mirtazapine resumed #A-fib with RVR Patient was noted to be in A-fib with RVR in ED, was given diltiazem 20 IV x 1, plan was to start patient on diltiazem drip. Patient's heart rate fluctuating in 90s to 110, no rapid ventricular response noted. Patient does have a history of atrial fibrillation, currently on amiodarone 200 twice daily, metoprolol succinate 25 p.o. daily and Eliquis 5 mg twice daily. Patient's last echo 05/16/2024 shows normal LV size and function, EF 55 to 60%, mild LVH stage I diastolic dysfunction. 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 Mild AV Sclerosis without stenosis. Plan: ?Resumed home dose amiodarone 200 twice daily, metoprolol succinate 25 mg p.o. daily ?Resumed Eliquis 5 mg twice daily ?Telemonitoring ?Consult cardio consult in a.m. #Diabetes mellitus Patient has history of diabetes mellitus, last hemoglobin A1c was 6.3. Plan: ?Sliding scale insulin ?Resumed home dose Lantus 12 units daily ?Fingerstick blood glucose, blood glucose goal 140-180 ?Hypoglycemia protocol #ADILSON on hemodialysis MWF Patient received dialysis treatment yesterday, reports of allergic rash postdialysis. Received Benadryl Plan: -Continue inpatient dialysis, nephrology consulted ?Resume home dose midodrine DVT prophylaxis: Eliquis GI prophylaxis: IV Protonix Diet: N.p.o. Lines: Peripheral IV Code status: DNR/DNI Case was discussed with attending physician, Dr Esa Stanley MD PGY-1 Disclaimer: This note was dictated by speech recognition. Minor errors in tank driver may be present due to voice recognition software. Attending Provider Attestation/Addendum 69-year-old female with multiple comorbidities including hypertension, hyperlipidemia, atrial fibrillation on Eliquis, gastric ulceration with perforation status post expiratory laparotomy complicated by pelvic abscesses status post drainage and end-stage renal disease on hemodialysis Wednesday, Wednesday and Wednesday who presented to the ER with failure to thrive. Furthermore, patient has been having decreased p.o. intake discussed with family regarding need for motivation for food intake. Also discussed that if patient does not have adequate food intake she might need further workup and possibly a PEG tube placement.I reviewed above note and agree with findings and plans. I have also personally examined the patient with medicine team and went over assessment and plan with medical team including general internist and resident physician.
--- NOTE | 2024-07-15 13:41 | PD.RESPRO ---
Documentation for date of: 07/15/24 Subjective Subjective Interval history: The patient is a 69-year-old female with significant past medical history of diabetes mellitus, hypertension, A-fib on Eliquis, ADILSON on hemodialysis, history of gastric ulcers, recent hospitalization in [facility] for perforated gastric ulcer s/p exploratory laparotomy complicated by recurrent abdominal and pelvic abscesses presented from rehab with chief complaint of vomiting. Vomiting is further aggravated by trying to eat, as after taking 2-3 bites she starts vomiting. Denies any fever or chills, headache, chest pain, abdominal pain, any leg swelling. The last hemodialysis and was 1 day ago. During our evaluation, her vitals were stable with soft blood pressure, saturating 92 to 95% on room air. Labs are significant for white count 13.6, hemoglobin 11.8, sodium 139, potassium 4.4, BUN 35, creatinine 1.8, GFR 40, A1c 4.9, corrected calcium 10.2. UA revealed turbid urine, protein 1+, bilirubin 1+, leukocyte esterase positive, WBC 84, bacteria 3+. Chest x-ray significant for mild heart failure pattern. Abdomen/pelvis CT significant for severe gastritis pattern, hyperdense gallbladder with possible pancreatitis. PMH: As mentioned above SHX: S/p exploratory laparotomy secondary to perforated gastric ulcer further complicated by recurrent abdominal and pelvic abscesses Social history: Denies smoking, alcohol use or any illicit drug use Family history: Unremarkable Medications: To be reconciled 05/13/2025: The patient was interviewed and examined at the bedside this morning. She reported doing okay. Her vitals were stable with mild tachycardia with heart rate 115. CBC fairly at baseline, chemistry panel revealed sodium 140, potassium 4.3, BUN 38, creatinine 1.7, GFR 32 and corrected calcium 10.2. We will continue to hold off on hemodialysis, and continue to monitor renal panel. 07/15/2024: The patient was interviewed and examined at the bedside this morning along with her son. She reported doing well. She denied any headache, chest pain or SOB, or any leg swelling. Her vitals were fairly stable. CBC at baseline, sodium 141, potassium 3.6, BUN 32, creatinine improving to 1.4, GFR 41, corrected calcium 10.2. We will hold off on hemodialysis, and continue to monitor renal panel. Exam Vital Signs Temp Pulse Resp BP Pulse Ox O2 Del Method 97.3 F 75 18 108/78 95 Room Air 07/15/24 12:00 07/15/24 13:02 07/15/24 12:00 07/15/24 13:02 07/15/24 12:00 07/15/24 12:00 Narrative Exam General: No acute distress, Alert and Oriented x 3 HEENT: Moist mucous membranes, oropharynx clear Neck: Supple, No masses, No JVD CVS: S1S2 Regular rate and rhythm, No murmurs, rubs or gallops Lungs: Clear to auscultation with no accessory use, no wheeze no rhonchi Abd: Soft, NT/ND, +BS, no organomegaly Ext: No edema, warm and well perfused Skin: No rash Psych: Appropriate mood and affect Objective Labs 07/16/24 04:16 07/16/24 04:16 Labs: Laboratory Results - last 24 hr 07/15/24 04:51 WBC 6.8 RBC 4.15 Hgb 10.7 L Hct 34.9 L MCV 84 MCH 25.8 MCHC 30.7 L RDW Std Deviation 60.7 H Plt Count 259 Neut % (Auto) 76 Lymph % (Auto) 14 [place] % (Auto) 8 Eos % (Auto) 0 Baso % (Auto) 1 Neut # (Auto) 5.2 Lymph # (Auto) 0.9 L [place] # (Auto) 0.5 Eos # (Auto) 0.0 Baso # (Auto) 0.0 Immature Gran # (Auto) 0.14 H Absolute Nucleated RBC 0.00 Immature Gran % 2 H Nucleated RBC % 0 Sodium 141 Potassium 3.6 D Chloride 107 Carbon Dioxide 25.5 Anion Gap 9 BUN 32 H Creatinine 1.4 H Estim Creat Clear Calc 30.9 L eGFR 41 L BUN/Creatinine Ratio 23 H Glucose 65 L Calculated Osmolality 286 Calcium 9.2 Corrected Calcium 10.2 H Phosphorus 2.4 Magnesium 1.6 Total Bilirubin 0.6 AST 23 ALT 10 Alkaline Phosphatase 90 Total Protein 5.0 L Albumin 2.7 L Globulin 2.3 Albumin/Globulin Ratio 1.2 Quality Measures Quality Measures VTE prophylaxis and none Advance care planning discussed with:: patient and child Assessment & Plan Assessment Current Active Medications: Generic Name Dose Route Start Last Admin Trade Name Freq PRN Reason Stop Dose Admin Acetaminophen 650 mg 07/12/24 20:33 Acetaminophen 325 Mg Tablet PO 08/11/24 20:32 Q6H PRN Fever >101.5 Al Hydrox/Mg Hydrox/Simethicone 30 ml 07/12/24 20:51 Mg Hyd/Al Hyd/Ronald (Maalox Reg) Susp 30 Ml Udc PO 08/11/24 20:50 QID PRN UPSET STOMACH/INDIGESTION Amiodarone HCl 200 mg 07/12/24 21:00 07/15/24 08:03 Amiodarone Hcl 200 Mg Tablet PO 08/11/24 20:59 200 mg BID ANGELICA Administration Apixaban 5 mg 07/13/24 09:00 07/15/24 08:03 Apixaban 2.5 Mg Tablet PO 08/12/24 08:59 5 mg BID ANGELICA Administration Dextrose 25 ml 07/12/24 21:11 Dextrose 50%-Water Inj 50 Ml Syringe IV 08/11/24 21:10 Q15MIN PRN BG 50-70 responsive npo pt Dextrose 50 ml 07/12/24 21:11 Dextrose 50%-Water Inj 50 Ml Syringe IV 08/11/24 21:10 Q15MIN PRN BG <50 OR BG <70 & pt unresponsive Dronabinol 10 mg 07/13/24 07:30 07/15/24 08:03 Dronabinol 2.5 Mg Capsule PO 08/12/24 07:29 10 mg BIDAC ANGELICA Administration Glucagon 1 mg 07/12/24 21:11 Glucagon Inj 1 Mg Vial IM Q15MIN PRN BG <70, and no IV access Ceftriaxone Sodium 1,000 mg/ 50 mls @ 100 mls/hr 07/13/24 09:30 07/15/24 08:02 Sodium Chloride IV 07/20/24 09:13 100 mls/hr QDAY ANGELICA Administration Lactated Ringer's 1,000 mls @ 75 mls/hr 07/13/24 14:00 07/15/24 02:34 Lactated Ringers IV 08/12/24 07:35 75 mls/hr .[id number] ANGELICA Administration Insulin Glargine 12 unit 07/13/24 09:00 07/14/24 08:52 Insulin Glargine (Lantus) 5 Unit/0.05 Ml (Per 5 Units) SC 08/12/24 08:59 Not Given QDAY ANGELICA Insulin Human Lispro 0 unit 07/13/24 07:30 07/15/24 11:43 Insulin Lispro (Admelog) 1 Unit/0.01 Ml Unit SC 08/12/24 07:29 Not Given AC ANGELICA Protocol Metoprolol Succinate 25 mg 07/13/24 09:00 07/15/24 08:03 Metoprolol Succinate Xl 25 Mg Tabcr PO 08/12/24 08:59 25 mg QDAY ANGELICA Administration Midodrine 5 mg 07/12/24 22:00 07/15/24 13:02 Midodrine 5 Mg Tablet PO 08/11/24 21:59 Not Given TID ANGELICA Mirtazapine 15 mg 07/13/24 21:00 07/14/24 21:33 Mirtazapine 15 Mg Tablet PO 08/12/24 20:59 15 mg HS ANGELICA Administration Ondansetron HCl 4 mg 07/12/24 20:33 Ondansetron Inj 2 Mg/Ml Inj 2 Ml IV 08/11/24 20:32 Q6H PRN NAUSEA OR VOMITING Protocol Pantoprazole Sodium 40 mg 07/13/24 09:30 07/15/24 08:02 Pantoprazole Inj 40 Mg Vial IVP 08/12/24 09:29 40 mg BID ANGELICA Administration Sennosides 1 tab 07/12/24 20:44 Senna Tablet PO 08/11/24 20:43 QDAY PRN CONSTIPATION Protocol Sucralfate 1 gm 07/13/24 11:30 07/15/24 11:49 Sucralfate Susp 1 Gm/10 Ml Udc PO 08/12/24 11:29 1 gm AC ANGELICA Administration Plan The patient is a 69-year-old female with significant past medical history of diabetes mellitus, hypertension, A-fib on Eliquis, ADILSON on hemodialysis MWF, history of gastric ulcers, recent hospitalization in [facility] for perforated gastric ulcer s/p exploratory laparotomy complicated by recurrent abdominal and pelvic abscesses presented from rehab with chief complaint of vomiting. Nephrology consultation was done for further management of ADILSON on hemodialysis. #ADILSON on hemodialysis MWF, improving Patient had ATN while she was admitted to ICU for soft blood pressure on 05/14/2024. Later she was started on hemodialysis for volume overload and oliguria. Presented with BUN 29, creatinine 1.8 and GFR 30, but within the last 3 months or GFR was worsened, gradually has been improving. 07/14/2024: BUN 35, creatinine 1.8 and GFR 30 07/15/2024: BUN 32, creatinine improved to 1.4 and GFR 41 -Avoid nephrotoxic drugs -Renal dose modifications -Hold off on hemodialysis today, may proceed with hemodialysis tomorrow morning if required, currently seems to be euvolemic and doing okay. -Daily a.m. renal panel #Mild hypercalcemia Likely secondary to immobilization and possible dehydration in the setting of poor oral intake, nausea and vomiting further complicated by aggressive ultrafiltration during hemodialysis -Encouraged oral rehydration -May consider adding calcitonin, as there is significant immobility -Monitor calcium level daily in the a.m. #Gastritis #Dysphagia #Intractable nausea and vomiting #History of gastric ulcers #A-fib with RVR #Diabetes mellitus type II -Management deferred to primary hospitalist team Thank you for your opportunity to participate nephrology team in this patient care. The patient's management plan was discussed with my attending physician MD Sameer Roman MD, PGY2 Attending Provider Attestation/Addendum Patient seen and examined with resident physician Dr. Corcoran. Note reviewed, agree with findings and recommendations. Patient with ADILSON secondary to ATN from the previous admission. Patient was on dialysis twice weekly and comes with decreased p.o. intake. Noted creatinine 1.7. Patient stated she is making good urine. Hold off on dialysis. Suspect renal recovery. If creatinine continues to improve will plan for discontinuing dialysis and catheter in am--off dialysis for 72 hours. Strict I&O's ordered.. No family around. 07/15/2024 Patient currently seen in medical floor. Family at bedside. Creatinine markedly improved to 1.4. Decided to discontinue dialysis and dialysis catheter. Family seems to be very happy. Suspect patient recovering her kidney function. Replace electrolytes.
[2024-07-15] MEDS: ONDANSETRON INJ 2 MG/ML INJ 2 ML 4 MG IV (17:37)
[2024-07-15] MEDS: DEXTROSE 50%-WATER INJ 50 ML SYRINGE 25 ML IV (17:37)
--- NOTE | 2024-07-15 18:10 | PD.IMPROG ---
Documentation for date of: 07/15/24 Subjective Subjective Interval history: Patient evaluated family has been bringing food from home she has been eating a little bit better Exam Vital Signs Temp Pulse Resp BP Pulse Ox O2 Del Method 97.2 F 99 20 94/64 92 L Room Air 07/15/24 16:00 07/15/24 16:00 07/15/24 16:00 07/15/24 16:00 07/15/24 16:00 07/15/24 16:00 Objective Labs 07/15/24 04:51 07/15/24 04:51 Labs: Laboratory Results - last 24 hr 07/15/24 04:51 WBC 6.8 RBC 4.15 Hgb 10.7 L Hct 34.9 L MCV 84 MCH 25.8 MCHC 30.7 L RDW Std Deviation 60.7 H Plt Count 259 Neut % (Auto) 76 Lymph % (Auto) 14 [place] % (Auto) 8 Eos % (Auto) 0 Baso % (Auto) 1 Neut # (Auto) 5.2 Lymph # (Auto) 0.9 L [place] # (Auto) 0.5 Eos # (Auto) 0.0 Baso # (Auto) 0.0 Immature Gran # (Auto) 0.14 H Absolute Nucleated RBC 0.00 Immature Gran % 2 H Nucleated RBC % 0 Sodium 141 Potassium 3.6 D Chloride 107 Carbon Dioxide 25.5 Anion Gap 9 BUN 32 H Creatinine 1.4 H Estim Creat Clear Calc 30.9 L eGFR 41 L BUN/Creatinine Ratio 23 H Glucose 65 L Calculated Osmolality 286 Calcium 9.2 Corrected Calcium 10.2 H Phosphorus 2.4 Magnesium 1.6 Total Bilirubin 0.6 AST 23 ALT 10 Alkaline Phosphatase 90 Total Protein 5.0 L Albumin 2.7 L Globulin 2.3 Albumin/Globulin Ratio 1.2 Impressions Impression: # Hypoalbuminemia # failure to thrive continue current management Assessment & Plan A&P Narrative # Failure to thrive Plan Case discussed in detail with the ER physician Difficult to put a PEG tube for further management of failure to thrive however will discuss with the family And attempt should be made if they agree To sustain appropriate nutrition for the patient by placement of a PEG tube Other medical problems include 1 end-stage renal disease hemodialysis MWF 2 chronic A-fib on Eliquis 3 status post exploratory laparotomy for perforated gastric ulcer Ramsey's patch and drainage of the subphrenic abscesses by IR drainage Thank you very much for the opportunity to participate in care of this patient Time Spent With Patient Time: Total time spent is greater than 50% in coordination of care (as documented) at patient's floor/unit and/or counseling patient:
[2024-07-15] MEDS: MIRTAZAPINE 15 MG TABLET PO (20:33)
[2024-07-16] VITALS (11 sets, daily range): BP systolic 104–145; BP diastolic 54–97; PULSE 84–110; RESP 14–94; TEMP 36.2–36.8; O2SAT 90–94
[2024-07-16 05:49] LABS: Basophils # (Auto) 0.1 Thou/mm3 (0.0-0.2); Basophils % (Auto) 1 % (0-2.5); Eosinophils % (Auto) 0 % (0-10); Hemoglobin 10.7 g/dL (12.0-16.0); Immature Granulocytes % (Auto) 2 % (0-0); Immature Granulocytes Auto 0.18 Thou/mm3 (0.00-0.00); Lymphocytes # (Auto) 1.4 Thou/mm3 (1.0-4.8); Lymphocytes % (Auto) 18 % (10-50); Mean Corpuscular HGB Conc 30.6 g/dl (31.0-37.0); Mean Corpuscular Hemoglobin 26.4 pg (25.0-35.0); Mean Corpuscular Volume 86 fL (80-100); Monocytes # (Auto) 0.6 Thou/mm3 (0.0-0.8); Monocytes % (Auto) 7 % (0-12); Neutrophils # (Auto) 5.8 Thou/mm3 (1.8-7.7); Neutrophils % (Auto) 72 % (37-80); Nucleated Red Blood Cell % 0 /100 WBC (0); Platelet Count 381 Thou/mm3 (140-440); RDW Standard Deviation 63.1 fL (36.4-46.3); Red Blood Count 4.05 Miln/mm3 (4.00-5.20); White Blood Count 8.1 Thou/mm3 (3.6-11.0)
[2024-07-16 06:22] LABS: Alanine Aminotransferase 12 U/L (10-49); Albumin, Serum 2.6 gm/dL (3.4-4.8); Albumin/Globulin Ratio 1.1 (1.2-2.2); Alkaline Phosphatase 89 U/L (46-116); Anion Gap 10 (7-16); Aspartate Amino Transferase 26 U/L (0-34); BUN/Creatinine Ratio 20 Ratio (12-20); Bilirubin,Total 0.5 mg/dL (0.3-1.2); Blood Urea Nitrogen 24 mg/dL (9-23); Calcium 8.9 mg/dL (8.3-10.6); Carbon Dioxide 25.8 mMol/L (20.0-31.0); Chloride 108 mMol/L (98-107); Creatinine (Component) 1.2 mg/dL (0.6-1.3); Globulin 2.4 gm/dL (2.3-3.5); Glucose 68 mg/dL (74-106); Magnesium 1.4 mg/dL (1.6-2.6); Osmolality,Calculated 288 (275-295); Phosphorous 2.2 mg/dL (2.4-5.1); Potassium 3.4 mMol/L (3.4-5.1); Sodium 144 mMol/L (136-145); eGFR 49 See Note
[2024-07-16] MEDS: RINGERS LACTATED 1000 ML 1,000 ML 75 ML IV (07:07)
--- NOTE | 2024-07-16 07:44 | EKG_ITS ---
[facility] Test Date: 2024-07-16 Pat Name: SALEEM SIMON Department: Room: S350A Gender: Female A And P Technician: JULIO : [id number] Requested By: Juan Stanley Order Number: [id number] Reading MD: Juan Stanley Measurements Intervals [place] Rate: 106 P: MT: QRS: -41 QRSD: 93 T: 88 QT: 354 QTc: 471 Interpretive Statements ATRIAL FIBRILLATION WITH RAPID VENTRICULAR RESPONSE MARKED LEFT AXIS DEVIATION [QRS AXIS < -30] PATTERN CONSISTENT WITH PULMONARY DISEASE NONSPECIFIC ST & T-WAVE ABNORMALITY Compared to ECG 07/12/2024 18:07:36 Possible ischemia no longer present T-wave abnormality still present /store/S0/[id number]
[2024-07-16] MEDS: droNABinol 2.5 MG CAPSULE 10 MG PO (07:45)
[2024-07-16] MEDS: PANTOPRAZOLE INJ 40 MG VIAL IVP ×2 (09:28→20:29)
[2024-07-16] MEDS: LEVOFLOXACIN/D5W 250MG IVPB 250 MG/50 ML BAG 50 MG IV (09:28)
[2024-07-16] MEDS: POTASSIUM CHLORIDE 20 mEq TABCR 40 MEQ PO (09:49)
[2024-07-16] MEDS: ONDANSETRON INJ 2 MG/ML INJ 2 ML 4 MG IV (10:13)
--- NOTE | 2024-07-16 10:25 | PD.NEPHPROG ---
Documentation for date of: 07/16/24 Subjective Subjective Interval history: patient is a 69-year-old female with significant past medical history of diabetes mellitus, hypertension, A-fib on Eliquis, ADILSON on hemodialysis, history of gastric ulcers, recent hospitalization in [facility] for perforated gastric ulcer s/p exploratory laparotomy complicated by recurrent abdominal and pelvic abscesses presented from rehab with chief complaint of vomiting. Vomiting is further aggravated by trying to eat, as after taking 2-3 bites she starts vomiting. Denies any fever or chills, headache, chest pain, abdominal pain, any leg swelling. The last hemodialysis and was 1 day ago. During our evaluation, her vitals were stable with soft blood pressure, saturating 92 to 95% on room air. Labs are significant for white count 13.6, hemoglobin 11.8, sodium 139, potassium 4.4, BUN 35, creatinine 1.8, GFR 40, A1c 4.9, corrected calcium 10.2. UA revealed turbid urine, protein 1+, bilirubin 1+, leukocyte esterase positive, WBC 84, bacteria 3+. Chest x-ray significant for mild heart failure pattern. Abdomen/pelvis CT significant for severe gastritis pattern, hyperdense gallbladder with possible pancreatitis. 07/14/2024: The patient was interviewed and examined at the bedside this morning. She reported doing okay. Her vitals were stable with mild tachycardia with heart rate 115. CBC fairly at baseline, chemistry panel revealed sodium 140, potassium 4.3, BUN 38, creatinine 1.7, GFR 32 and corrected calcium 10.2. We will continue to hold off on hemodialysis, and continue to monitor renal panel. 07/15/2024: The patient was interviewed and examined at the bedside this morning along with her son. She reported doing well. She denied any headache, chest pain or SOB, or any leg swelling. Her vitals were fairly stable. CBC at baseline, sodium 141, potassium 3.6, BUN 32, creatinine improving to 1.4, GFR 41, corrected calcium 10.2. We will hold off on hemodialysis, and continue to monitor renal panel. 07/16/2024 doing faily ok. Appetite still low. CR 1.2 dc dialysis cath in am Review of Systems Review of Systems Narrative Review of Systems: No cp, sob. No nausea, vomiting Exam Vital Signs Temp Pulse Resp BP Pulse Ox O2 Del Method 36.2 C 84 19 125/89 H 94 L Room Air 07/16/24 08:00 07/16/24 08:00 07/16/24 08:00 07/16/24 08:00 07/16/24 08:00 07/16/24 08:00 Narrative Exam General: No acute distress, Alert and Oriented x 3 HEENT: Moist mucous membranes, oropharynx clear Neck: Supple, No masses, No JVD CVS: S1S2 Regular rate and rhythm, No murmurs, rubs or gallops Lungs: Clear to auscultation with no accessory use, no wheeze no rhonchi + IJ cath Abd: Soft, NT/ND, +BS, no organomegaly Ext: trace edema, warm and well perfused Skin: No rash Psych: Appropriate mood and affect Objective Labs 07/16/24 04:16 07/16/24 04:16 Labs: Laboratory Results - last 24 hr 07/16/24 04:16 WBC 8.1 RBC 4.05 Hgb 10.7 L Hct 35.0 L MCV 86 MCH 26.4 MCHC 30.6 L RDW Std Deviation 63.1 H Plt Count 381 D Neut % (Auto) 72 Lymph % (Auto) 18 [place] % (Auto) 7 Eos % (Auto) 0 Baso % (Auto) 1 Neut # (Auto) 5.8 Lymph # (Auto) 1.4 [place] # (Auto) 0.6 Eos # (Auto) 0.0 Baso # (Auto) 0.1 Immature Gran # (Auto) 0.18 H Absolute Nucleated RBC 0.00 Immature Gran % 2 H Nucleated RBC % 0 Sodium 144 Potassium 3.4 Chloride 108 H Carbon Dioxide 25.8 Anion Gap 10 BUN 24 H Creatinine 1.2 Estim Creat Clear Calc 36.0 L eGFR 49 L BUN/Creatinine Ratio 20 Glucose 68 L Calculated Osmolality 288 Calcium 8.9 Corrected Calcium 10.0 Phosphorus 2.2 L Magnesium 1.4 L Total Bilirubin 0.5 AST 26 ALT 12 Alkaline Phosphatase 89 Total Protein 5.0 L Albumin 2.6 L Globulin 2.4 Albumin/Globulin Ratio 1.1 L Assessment & Plan Additional Assessment & Plan Additional Plan: patient is a 69-year-old female with significant past medical history of diabetes mellitus, hypertension, A-fib on Eliquis, ADILSON on hemodialysis MWF, history of gastric ulcers, recent hospitalization in [facility] for perforated gastric ulcer s/p exploratory laparotomy complicated by recurrent abdominal and pelvic abscesses presented from rehab with chief complaint of vomiting. Nephrology consultation was done for further management of ADILSON on hemodialysis. #ADILSON -- was on hemodialysis MWF, improving Patient had ATN while she was admitted to ICU for soft blood pressure on 05/14/2024. Later she was started on hemodialysis for volume overload and oliguria. Presented with BUN 29, creatinine 1.8 and GFR 30, but within the last 3 months or GFR was worsened, gradually has been improving. 07/14/2024: BUN 35, creatinine 1.8 and GFR 30 07/15/2024: BUN 32, creatinine improved to 1.4 and GFR 41 07/16/2024 creatinine 1.4-will DC with dialysis, dialysis catheter. -Avoid nephrotoxic drugs -Renal dose modifications -Hold off on hemodialysis today, may proceed with hemodialysis cath removal on Wednesday -Daily a.m. renal panel #Mild hypercalcemia Likely secondary to immobilization and possible dehydration in the setting of poor oral intake, nausea and vomiting further complicated by aggressive ultrafiltration during hemodialysis -Encouraged oral rehydration Better -Monitor calcium level daily in the a.m. #Gastritis #Dysphagia #Intractable nausea and vomiting #History of gastric ulcers #A-fib with RVR #Diabetes mellitus type II -Management deferred to primary hospitalist team
--- NOTE | 2024-07-16 12:49 | ESPR_ITS ---
<Statement entered by Miguel Peraza MD - 07/17/24 11:36> Senior Resident Attestation: I supervised/discussed management plan with manager internship physician Dr. Stanley, and was involved in the care of this patient. I personally saw and examined the patient and discussed the assessment and plan with the entire medicine team, including my attending. I agree with the assessment and plan as documented. Patient's care was discussed with attending physician, Dr. See. Miguel Peraza MD PGY-2. Documentation for date of: 07/16/24 Subjective Subjective Interval history: Patient seen at bedside. No acute overnight events. Per nurse this morning, the patient had 1 episode of vomiting after she tried to give her some juice due to hypoglycemia. Labs were reviewed and potassium was attempted to be repleted, but patient had another episode of vomiting. Family still wanting to hold off on PEG tube placement, will touch base with them again as patient is unable to tolerate oral intake at this time. Creatinine back within normal, per nephrology will remove dialysis catheter. In the interim, we will continue IV fluids Urine culture returned positive for ESBL, will DC IV ceftriaxone and commence IV levofloxacin. Exam Vital Signs Temp Pulse Resp BP Pulse Ox O2 Del Method 97.1 F 84 19 125/89 H 94 L Room Air 07/16/24 08:00 07/16/24 08:00 07/16/24 08:00 07/16/24 08:00 07/16/24 08:00 07/16/24 08:00 Narrative Exam GENERAL: AAOX3, lethargic NEURO: MACH[employer]ER [employer]PER[employer]OR grossly intact, moves extremities x4 HEENT: Moist mucosa. Eyes open, symmetrical, & clear CARDIO: No chest pain on palpation. Heart RRR, no obvious murmurs PULM: No noted coughing/dyspnea. Lungs CTA B/L, no R/W/R GI: Abdomen soft, nondistended, no pain on palpation. BSx4 URO/CARDER BLANKETS:: No further abnormalities noted. Guajardo catheter/cannister _ SKIN/MSK/EXT: No wounds/rashes/edema/amputations, no pain on palpation. Pedal pulses present B/L Objective Labs 07/17/24 05:05 07/17/24 05:05 Labs: Laboratory Results - last 24 hr 07/16/24 04:16 WBC 8.1 RBC 4.05 Hgb 10.7 L Hct 35.0 L MCV 86 MCH 26.4 MCHC 30.6 L RDW Std Deviation 63.1 H Plt Count 381 D Neut % (Auto) 72 Lymph % (Auto) 18 [place] % (Auto) 7 Eos % (Auto) 0 Baso % (Auto) 1 Neut # (Auto) 5.8 Lymph # (Auto) 1.4 [place] # (Auto) 0.6 Eos # (Auto) 0.0 Baso # (Auto) 0.1 Immature Gran # (Auto) 0.18 H Absolute Nucleated RBC 0.00 Immature Gran % 2 H Nucleated RBC % 0 Sodium 144 Potassium 3.4 Chloride 108 H Carbon Dioxide 25.8 Anion Gap 10 BUN 24 H Creatinine 1.2 Estim Creat Clear Calc 36.0 L eGFR 49 L BUN/Creatinine Ratio 20 Glucose 68 L Calculated Osmolality 288 Calcium 8.9 Corrected Calcium 10.0 Phosphorus 2.2 L Magnesium 1.4 L Total Bilirubin 0.5 AST 26 ALT 12 Alkaline Phosphatase 89 Total Protein 5.0 L Albumin 2.6 L Globulin 2.4 Albumin/Globulin Ratio 1.1 L Quality Measures Quality Measures VTE prophylaxis and none Advance care planning discussed with:: other Assessment & Plan Assessment Current Active Medications: Generic Name Dose Route Start Last Admin Trade Name Freq PRN Reason Stop Dose Admin Acetaminophen 650 mg 07/12/24 20:33 Acetaminophen 325 Mg Tablet PO 08/11/24 20:32 Q6H PRN Fever >101.5 Al Hydrox/Mg Hydrox/Simethicone 30 ml 07/12/24 20:51 Mg Hyd/Al Hyd/Ronald (Maalox Reg) Susp 30 Ml Udc PO 08/11/24 20:50 QID PRN UPSET STOMACH/INDIGESTION Amiodarone HCl 200 mg 07/12/24 21:00 07/16/24 10:17 Amiodarone Hcl 200 Mg Tablet PO 08/11/24 20:59 Not Given BID ANGELICA Apixaban 5 mg 07/13/24 09:00 07/16/24 10:17 Apixaban 2.5 Mg Tablet PO 08/12/24 08:59 Not Given BID ANGELICA Dextrose 25 ml 07/12/24 21:11 07/15/24 17:37 Dextrose 50%-Water Inj 50 Ml Syringe IV 08/11/24 21:10 25 ml Q15MIN PRN Administration BG 50-70 responsive npo pt Dextrose 50 ml 07/12/24 21:11 Dextrose 50%-Water Inj 50 Ml Syringe IV 08/11/24 21:10 Q15MIN PRN BG <50 OR BG <70 & pt unresponsive Dronabinol 10 mg 07/13/24 07:30 07/16/24 10:17 Dronabinol 2.5 Mg Capsule PO 08/12/24 07:29 Not Given BIDAC ANGELICA Glucagon 1 mg 07/12/24 21:11 Glucagon Inj 1 Mg Vial IM Q15MIN PRN BG <70, and no IV access Levofloxacin/Dextrose 250 mg in 50 mls @ 50 mls/hr 07/16/24 09:00 07/16/24 09:28 Levaquin Ivpb IV 07/23/24 08:59 50 mls/hr QDAY ANGELICA Administration Insulin Glargine 12 unit 07/13/24 09:00 07/14/24 08:52 Insulin Glargine (Lantus) 5 Unit/0.05 Ml (Per 5 Units) SC 08/12/24 08:59 Not Given QDAY [facility] Insulin Human Lispro 0 unit 07/13/24 07:30 07/16/24 07:40 Insulin Lispro (Admelog) 1 Unit/0.01 Ml Unit SC 08/12/24 07:29 Not Given AC [facility] Protocol Metoprolol Succinate 25 mg 07/13/24 09:00 07/16/24 10:16 Metoprolol Succinate Xl 25 Mg Tabcr PO 08/12/24 08:59 Not Given QDAY [facility] Midodrine 5 mg 07/12/24 22:00 07/16/24 05:20 Midodrine 5 Mg Tablet PO 08/11/24 21:59 Not Given TID ANGELICA Mirtazapine 15 mg 07/13/24 21:00 07/15/24 20:33 Mirtazapine 15 Mg Tablet PO 08/12/24 20:59 15 mg HS ANGELICA Administration Ondansetron HCl 4 mg 07/12/24 20:33 07/16/24 10:13 Ondansetron Inj 2 Mg/Ml Inj 2 Ml IV 08/11/24 20:32 4 mg Q6H PRN Administration NAUSEA OR VOMITING Protocol Pantoprazole Sodium 40 mg 07/13/24 09:30 07/16/24 09:28 Pantoprazole Inj 40 Mg Vial IVP 08/12/24 09:29 40 mg BID ANGELICA Administration Potassium Phos/Sodium Phos 1 packet 07/16/24 10:45 Naph,[facility] 1 Packet (1.5 Gm) PO 07/18/24 10:44 BID ANGELICA Sennosides 1 tab 07/12/24 20:44 Senna Tablet PO 08/11/24 20:43 QDAY PRN CONSTIPATION Protocol Sucralfate 1 gm 07/13/24 11:30 07/16/24 09:27 Sucralfate Susp 1 Gm/10 Ml Udc PO 08/12/24 11:29 Not Given AC ANGELICA Plan Summary: The patient is a 69-year-old female with past medical history of diabetes mellitus, hypertension, atrial fibrillation on Eliquis, end-stage renal disease on hemodialysis (MWF), history of gastric ulcers, recent hospitalization [facility] for perforated gastric ulcer status post exploratory laparotomy complicated by recurrent abdominal and pelvic abscesses who presented from rehab with a chief complaint of vomiting. Patient admitted to hospital for further workup for dysphagia poor p.o. intake and possible intervention for adequate nutrition. #Failure to thrive #Nausea and vomiting #History of gastric ulcers Per patient's daughter on medical collections representative of longterm home patient has significantly poor p.o. intake, takes only 2-3 bites, unable to maintain a normal appetite. Patient does complain of mild epigastric pain, patient does have history of gastric ulcers recently was admitted to hospital for complicated perforated gastric ulcer. Patient is able to take a few bites but GI Dr. Christianson was consulted, will possibly plan patient for PEG tube if family consents. 07/16/2024- Per nurse this morning, the patient had 1 episode of vomiting after she tried to give her some juice due to hypoglycemia. Labs were reviewed and potassium was attempted to be repleted, but patient had another episode of vomiting. Family still wanting to hold off on PEG tube placement, will touch base with them again as patient is unable to tolerate oral intake at this time Plan: ? GI consulted, appreciate recommendations - For possible PEG tube placement, holding off for now ? Protonix 40mg BID ? Maalox as needed ? Patient on dronabinol, resumed, mirtazapine resumed #A-fib with RVR Patient was noted to be in A-fib with RVR in ED, was given diltiazem 20 IV x 1, plan was to start patient on diltiazem drip. Patient's heart rate fluctuating in 90s to 110, no rapid ventricular response noted. Patient does have a history of atrial fibrillation, currently on amiodarone 200 twice daily, metoprolol succinate 25 p.o. daily and Eliquis 5 mg twice daily. Patient's last echo 05/16/2024 shows normal LV size and function, EF 55 to 60%, mild LVH stage I diastolic dysfunction. 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 Mild AV Sclerosis without stenosis. Plan: ?Resumed home dose amiodarone 200 twice daily, metoprolol succinate 25 mg p.o. daily ?Holding Eliquis for IR cath removal ?Telemonitoring ?Consult cardio consult in a.m. #Diabetes mellitus Patient has history of diabetes mellitus, last hemoglobin A1c was 6.3. Plan: ?Sliding scale insulin ?Resumed home dose Lantus 12 units daily ?Fingerstick blood glucose, blood glucose goal 140-180 ?Hypoglycemia protocol #ADILSON on hemodialysis MWF Patient received dialysis treatment yesterday, reports of allergic rash postdialysis. Received Benadryl Plan: -Continue inpatient dialysis, nephrology consulted ?Resume home dose midodrine DVT prophylaxis: Eliquis (holding for cath removal and possible PEG) GI prophylaxis: IV Protonix Diet: Dysphagia 3 plus Nepro Lines: Peripheral IV Code status: DNR/DNI Case was discussed with Dr Peraza PGY-2 and attending physician, Dr Esa Stanley MD PGY-1 Disclaimer: This note was dictated by speech recognition. Minor errors in public affairs director may be present due to voice recognition software. Attending Provider Attestation/Addendum 69-year-old female with multiple comorbidities including hypertension, hyperlipidemia, atrial fibrillation on Eliquis, gastric ulceration with perforation status post expiratory laparotomy complicated by pelvic abscesses status post drainage and end-stage renal disease on hemodialysis Wednesday, Wednesday and Wednesday who presented to the ER with failure to thrive. Furthermore, patient has been having decreased p.o. intake discussed with family regarding need for motivation for food intake. Also discussed that if patient does not have adequate food intake she might need further workup and possibly a PEG tube placement.I reviewed above note and agree with findings and plans. I have also personally examined the patient with medicine team and went over assessment and plan with medical team including manager internship and resident physician.
[2024-07-16] MEDS: SODIUM CHLORIDE 0.9% 1000 ML 1,000 ML 75 ML IV (13:08)
[2024-07-16] MEDS: Magnesium Sulfate 2 GM Ivpb 2 GM/50 ML BAG IV (13:08)
[2024-07-16] MEDS: DEXTROSE 5%-NS 1,000 ML 75 ML IV (16:17)
--- NOTE | 2024-07-16 19:14 | PD.IMPROG ---
Documentation for date of: 07/16/24 Subjective Subjective Interval history: Patient not eating well Family still wants to hold off placement of a PEG tube Exam Vital Signs Temp Pulse Resp BP Pulse Ox O2 Del Method 97.3 F 98 27 H 104/54 L 92 L Room Air 07/16/24 16:00 07/16/24 16:00 07/16/24 16:00 07/16/24 16:00 07/16/24 16:00 07/16/24 16:00 Objective Labs 07/16/24 04:16 07/16/24 04:16 Labs: Laboratory Results - last 24 hr 07/16/24 04:16 WBC 8.1 RBC 4.05 Hgb 10.7 L Hct 35.0 L MCV 86 MCH 26.4 MCHC 30.6 L RDW Std Deviation 63.1 H Plt Count 381 D Neut % (Auto) 72 Lymph % (Auto) 18 [place] % (Auto) 7 Eos % (Auto) 0 Baso % (Auto) 1 Neut # (Auto) 5.8 Lymph # (Auto) 1.4 [place] # (Auto) 0.6 Eos # (Auto) 0.0 Baso # (Auto) 0.1 Immature Gran # (Auto) 0.18 H Absolute Nucleated RBC 0.00 Immature Gran % 2 H Nucleated RBC % 0 Sodium 144 Potassium 3.4 Chloride 108 H Carbon Dioxide 25.8 Anion Gap 10 BUN 24 H Creatinine 1.2 Estim Creat Clear Calc 36.0 L eGFR 49 L BUN/Creatinine Ratio 20 Glucose 68 L Calculated Osmolality 288 Calcium 8.9 Corrected Calcium 10.0 Phosphorus 2.2 L Magnesium 1.4 L Total Bilirubin 0.5 AST 26 ALT 12 Alkaline Phosphatase 89 Total Protein 5.0 L Albumin 2.6 L Globulin 2.4 Albumin/Globulin Ratio 1.1 L Impressions Impression: Failure to thrive patient family still wants to hold off putting a PEG tube Encourage p.o. intake Assessment & Plan A&P Narrative # Failure to thrive Plan Case discussed in detail with the ER physician Difficult to put a PEG tube for further management of failure to thrive however will discuss with the family And attempt should be made if they agree To sustain appropriate nutrition for the patient by placement of a PEG tube Other medical problems include 1 end-stage renal disease hemodialysis MWF 2 chronic A-fib on Eliquis 3 status post exploratory laparotomy for perforated gastric ulcer Ramsey's patch and drainage of the subphrenic abscesses by IR drainage Thank you very much for the opportunity to participate in care of this patient Time Spent With Patient Time: Total time spent is greater than 50% in coordination of care (as documented) at patient's floor/unit and/or counseling patient:
--- NOTE | 2024-07-16 19:31 | PC.NURSE ---
re nepro supplement- Per inlaw at bedside pt refused to take it because with just the smell of nepro it makes pt vomit. Per family if it can be changed to a different supplement.
[2024-07-16] MEDS: MIRTAZAPINE 15 MG TABLET PO (20:32)
[2024-07-16] MEDS: AMIODARONE HCL 200 MG TABLET PO (20:32)
[2024-07-17] VITALS (10 sets, daily range): BP systolic 116–147; BP diastolic 74–89; PULSE 85–111; RESP 17–95; TEMP 36–36.4; O2SAT 91–94; BMI 27.6
[2024-07-17 06:54] LABS: Basophils # (Auto) 0.1 Thou/mm3 (0.0-0.2); Basophils % (Auto) 1 % (0-2.5); Eosinophils % (Auto) 0 % (0-10); Hematocrit 36.6 % (36.0-46.0); Hemoglobin 10.8 g/dL (12.0-16.0); Immature Granulocytes % (Auto) 2 % (0-0); Immature Granulocytes Auto 0.16 Thou/mm3 (0.00-0.00); Lymphocytes # (Auto) 1.9 Thou/mm3 (1.0-4.8); Lymphocytes % (Auto) 27 % (10-50); Mean Corpuscular HGB Conc 29.5 g/dl (31.0-37.0); Mean Corpuscular Hemoglobin 25.5 pg (25.0-35.0); Mean Corpuscular Volume 87 fL (80-100); Monocytes # (Auto) 0.6 Thou/mm3 (0.0-0.8); Monocytes % (Auto) 8 % (0-12); Neutrophils # (Auto) 4.5 Thou/mm3 (1.8-7.7); Neutrophils % (Auto) 62 % (37-80); Nucleated Red Blood Cell % 0 /100 WBC (0); Platelet Count 213 Thou/mm3 (140-440); RDW Standard Deviation 64.8 fL (36.4-46.3); Red Blood Count 4.23 Miln/mm3 (4.00-5.20); White Blood Count 7.2 Thou/mm3 (3.6-11.0)
[2024-07-17 07:04] LABS: Vitamin D 25 Hydroxy Total 72.9 ng/mL (7.3-40.2)
[2024-07-17 07:05] LABS: Alanine Aminotransferase 15 U/L (10-49); Albumin, Serum 2.4 gm/dL (3.4-4.8); Alkaline Phosphatase 90 U/L (46-116); Anion Gap 11 (7-16); Aspartate Amino Transferase 27 U/L (0-34); BUN/Creatinine Ratio 17 Ratio (12-20); Bilirubin,Total 0.6 mg/dL (0.3-1.2); Blood Urea Nitrogen 17 mg/dL (9-23); Calcium 8.6 mg/dL (8.3-10.6); Calcium (Corrected) 9.9 mg/dL (8.5-10.1); Carbon Dioxide 22.9 mMol/L (20.0-31.0); Chloride 108 mMol/L (98-107); Estimated Creatinine Clearance 43.2 mL/min (>60); Globulin 2.5 gm/dL (2.3-3.5); Glucose 108 mg/dL (74-106); Magnesium 1.8 mg/dL (1.6-2.6); Osmolality,Calculated 285 (275-295); Phosphorous 2.1 mg/dL (2.4-5.1); Sodium 142 mMol/L (136-145); Total Protein 4.9 gm/dL (5.7-8.2); eGFR > 60 See Note
[2024-07-17 08:07] LABS: Parathyroid Hormone Intact 66.7 pg/ml (18.5-88.0)
[2024-07-17] MEDS: PANTOPRAZOLE INJ 40 MG VIAL IVP ×2 (08:39→20:09)
[2024-07-17] MEDS: POTASSIUM CHLORIDE 20 mEq TABCR 40 MEQ PO (08:40)
[2024-07-17] MEDS: LEVOFLOXACIN/D5W 250MG IVPB 250 MG/50 ML BAG 50 MG IV (08:41)
[2024-07-17] MEDS: Magnesium Sulfate 2 GM Ivpb 2 GM/50 ML BAG IV (08:41)
--- NOTE | 2024-07-17 09:10 | PC.NURSE ---
pt was unable to tolerate any PO medications and refused PO intake, Dr. Peraza made aware.
--- NOTE | 2024-07-17 09:57 | PD.NEPHPROG ---
Documentation for date of: 07/17/24 Subjective Subjective Interval history: patient is a 69-year-old female with significant past medical history of diabetes mellitus, hypertension, A-fib on Eliquis, ADILSON on hemodialysis, history of gastric ulcers, recent hospitalization in [facility] for perforated gastric ulcer s/p exploratory laparotomy complicated by recurrent abdominal and pelvic abscesses presented from rehab with chief complaint of vomiting. Vomiting is further aggravated by trying to eat, as after taking 2-3 bites she starts vomiting. Denies any fever or chills, headache, chest pain, abdominal pain, any leg swelling. The last hemodialysis and was 1 day ago. During our evaluation, her vitals were stable with soft blood pressure, saturating 92 to 95% on room air. Labs are significant for white count 13.6, hemoglobin 11.8, sodium 139, potassium 4.4, BUN 35, creatinine 1.8, GFR 40, A1c 4.9, corrected calcium 10.2. UA revealed turbid urine, protein 1+, bilirubin 1+, leukocyte esterase positive, WBC 84, bacteria 3+. Chest x-ray significant for mild heart failure pattern. Abdomen/pelvis CT significant for severe gastritis pattern, hyperdense gallbladder with possible pancreatitis. 07/14/2024: The patient was interviewed and examined at the bedside this morning. She reported doing okay. Her vitals were stable with mild tachycardia with heart rate 115. CBC fairly at baseline, chemistry panel revealed sodium 140, potassium 4.3, BUN 38, creatinine 1.7, GFR 32 and corrected calcium 10.2. We will continue to hold off on hemodialysis, and continue to monitor renal panel. 07/15/2024: The patient was interviewed and examined at the bedside this morning along with her son. She reported doing well. She denied any headache, chest pain or SOB, or any leg swelling. Her vitals were fairly stable. CBC at baseline, sodium 141, potassium 3.6, BUN 32, creatinine improving to 1.4, GFR 41, corrected calcium 10.2. We will hold off on hemodialysis, and continue to monitor renal panel. 07/17/2024 doing faily ok. Appetite still low. CR 1.2 Blood sugar 83. Blood pressure 116/89, heart rate 111. Hemoglobin 10.8. Sodium 142, potassium 3, BUN 17, creatinine 1.0, LFTs normal, phosphorus 2.1, magnesium 1.8, albumin 2.4, vitamin D72.9, PTH 66.7 dc dialysis cath in am Review of Systems Review of Systems Narrative Review of Systems: No cp, sob. No nausea, vomiting Denies any urinary symptoms of burning or frequency. Patient has a diaper pad Exam Vital Signs Temp Pulse Resp BP Pulse Ox O2 Del Method 36.2 C 91 17 132/76 H 91 L Room Air 07/17/24 07:47 07/17/24 07:47 07/17/24 07:47 07/17/24 07:47 07/17/24 07:47 07/17/24 07:47 Narrative Exam General: No acute distress, Alert and Oriented x 3 HEENT: Moist mucous membranes, oropharynx clear Neck: Supple, No masses, No JVD CVS: S1S2 Regular rate and rhythm, No murmurs, rubs or gallops Lungs: Clear to auscultation with no accessory use, no wheeze no rhonchi + IJ cath Abd: Soft, NT/ND, +BS, no organomegaly Ext: trace edema, warm and well perfused Skin: No rash Psych: Appropriate mood and affect Objective Labs 07/17/24 05:05 07/17/24 05:05 Labs: Laboratory Results - last 24 hr 07/17/24 05:05 WBC 7.2 RBC 4.23 Hgb 10.8 L Hct 36.6 MCV 87 MCH 25.5 MCHC 29.5 L RDW Std Deviation 64.8 H Plt Count 213 D Neut % (Auto) 62 Lymph % (Auto) 27 [place] % (Auto) 8 Eos % (Auto) 0 Baso % (Auto) 1 Neut # (Auto) 4.5 Lymph # (Auto) 1.9 [place] # (Auto) 0.6 Eos # (Auto) 0.0 Baso # (Auto) 0.1 Immature Gran # (Auto) 0.16 H Absolute Nucleated RBC 0.00 Immature Gran % 2 H Nucleated RBC % 0 Sodium 142 Potassium 3.0 L Chloride 108 H Carbon Dioxide 22.9 Anion Gap 11 BUN 17 Creatinine 1.0 Estim Creat Clear Calc 43.2 L eGFR > 60 BUN/Creatinine Ratio 17 Glucose 108 H D Calculated Osmolality 285 Calcium 8.6 Corrected Calcium 9.9 Phosphorus 2.1 L Magnesium 1.8 Total Bilirubin 0.6 AST 27 ALT 15 Alkaline Phosphatase 90 Total Protein 4.9 L Albumin 2.4 L Globulin 2.5 Albumin/Globulin Ratio 1.0 L 25-OH Vitamin D Total 72.9 H PTH Intact 66.7 Assessment & Plan Additional Assessment & Plan Additional Plan: patient is a 69-year-old female with significant past medical history of diabetes mellitus, hypertension, A-fib on Eliquis, ADILSON on hemodialysis MWF, history of gastric ulcers, recent hospitalization in [facility] for perforated gastric ulcer s/p exploratory laparotomy complicated by recurrent abdominal and pelvic abscesses presented from rehab with chief complaint of vomiting. Nephrology consultation was done for further management of ADILSON on hemodialysis. #ADILSON -- was on hemodialysis MWF, improving Patient had ATN while she was admitted to ICU for soft blood pressure on 05/14/2024. Later she was started on hemodialysis for volume overload and oliguria. Presented with BUN 29, creatinine 1.8 and GFR 30, but within the last 3 months or GFR was worsened, gradually has been improving. 07/14/2024: BUN 35, creatinine 1.8 and GFR 30 07/15/2024: BUN 32, creatinine improved to 1.4 and GFR 41 07/17/2024 creatinine 1.0-will DC with dialysis, dialysis catheter. -Avoid nephrotoxic drugs -Renal dose modifications proceed with hemodialysis cath removal in a.m. replace potassium, phosphorus -Daily a.m. renal panel #Mild hypercalcemia Likely secondary to immobilization and possible dehydration in the setting of poor oral intake, nausea and vomiting further complicated by aggressive ultrafiltration during hemodialysis -Encouraged oral rehydration Better -Monitor calcium level daily in the a.m. #Gastritis #Dysphagia #Intractable nausea and vomiting #History of gastric ulcers #A-fib with RVR #Diabetes mellitus type II -Management deferred to primary hospitalist team Quality - progress note Quality Measures Quality Measures: VTE prophylaxis Reason for Continued Stay Reason for Continued Stay: further monitoring
[2024-07-17] MEDS: ONDANSETRON INJ 2 MG/ML INJ 2 ML 4 MG IV (11:02)
--- NOTE | 2024-07-17 13:14 | PD.RESPRO ---
Documentation for date of: 07/17/24 Subjective Subjective Interval history: Pt examined at bedside today. Pt is a bit sleepy at this point in time. Family present at bedside. Pt continues to report nausea after eating. Pt and family have not made decision if they want to pursue PEG tube at this time. No other complaints at this time. Exam Vital Signs Temp Pulse Resp BP Pulse Ox O2 Del Method 97.1 F 85 19 123/74 94 L Room Air 07/17/24 12:00 07/17/24 12:00 07/17/24 12:00 07/17/24 12:00 07/17/24 12:00 07/17/24 12:00 Narrative Exam General: AAOx3, NAD, a bit sleepy this morning HEENT: Moist mucous membranes, conjunctiva clear, EOMI, PERRLA, Dialysis cath present in RIJ Cardiovascular: S1, S2, radial pulses +2 bilat, irregularly irregular rhythm Pulmonary: Some crackes appreciated GI: No tenderness to light or deep palpitation, no guarding, rigidity, Extremities: Trace edema in lower extremities bilaterally, dorsalis pedis pulses +2 bilaterally Neuro: AAOx3, no focal motor or sensory deficits in the UE or LE bilat Psych: Cooperative Objective Labs 07/17/24 05:05 07/17/24 05:05 Labs: Laboratory Results - last 24 hr 07/17/24 05:05 WBC 7.2 RBC 4.23 Hgb 10.8 L Hct 36.6 MCV 87 MCH 25.5 MCHC 29.5 L RDW Std Deviation 64.8 H Plt Count 213 D Neut % (Auto) 62 Lymph % (Auto) 27 [place] % (Auto) 8 Eos % (Auto) 0 Baso % (Auto) 1 Neut # (Auto) 4.5 Lymph # (Auto) 1.9 [place] # (Auto) 0.6 Eos # (Auto) 0.0 Baso # (Auto) 0.1 Immature Gran # (Auto) 0.16 H Absolute Nucleated RBC 0.00 Immature Gran % 2 H Nucleated RBC % 0 Sodium 142 Potassium 3.0 L Chloride 108 H Carbon Dioxide 22.9 Anion Gap 11 BUN 17 Creatinine 1.0 Estim Creat Clear Calc 43.2 L eGFR > 60 BUN/Creatinine Ratio 17 Glucose 108 H D Calculated Osmolality 285 Calcium 8.6 Corrected Calcium 9.9 Phosphorus 2.1 L Magnesium 1.8 Total Bilirubin 0.6 AST 27 ALT 15 Alkaline Phosphatase 90 Total Protein 4.9 L Albumin 2.4 L Globulin 2.5 Albumin/Globulin Ratio 1.0 L 25-OH Vitamin D Total 72.9 H PTH Intact 66.7 Quality Measures Quality Measures VTE prophylaxis and none Advance care planning discussed with:: patient Assessment & Plan Assessment Current Active Medications: Generic Name Dose Route Start Last Admin Trade Name Freq PRN Reason Stop Dose Admin Acetaminophen 650 mg 07/12/24 20:33 Acetaminophen 325 Mg Tablet PO 08/11/24 20:32 Q6H PRN Fever >101.5 Al Hydrox/Mg Hydrox/Simethicone 30 ml 07/12/24 20:51 Mg Hyd/Al Hyd/Ronald (Maalox Reg) Susp 30 Ml Udc PO 08/11/24 20:50 QID PRN UPSET STOMACH/INDIGESTION Amiodarone HCl 200 mg 07/12/24 21:00 07/17/24 09:09 Amiodarone Hcl 200 Mg Tablet PO 08/11/24 20:59 Not Given BID ANGELICA Apixaban 5 mg 07/13/24 09:00 07/16/24 10:17 Apixaban 2.5 Mg Tablet PO 08/12/24 08:59 Not Given BID ANGELICA Dextrose 50 ml 07/12/24 21:11 Dextrose 50%-Water Inj 50 Ml Syringe IV 08/11/24 21:10 Q15MIN PRN BG <50 OR BG <70 & pt unresponsive Dronabinol 10 mg 07/13/24 07:30 07/17/24 09:09 Dronabinol 2.5 Mg Capsule PO 08/12/24 07:29 Not Given BIDAC ANGELICA Glucagon 1 mg 07/12/24 21:11 Glucagon Inj 1 Mg Vial IM Q15MIN PRN BG <70, and no IV access Levofloxacin/Dextrose 250 mg in 50 mls @ 50 mls/hr 07/16/24 09:00 07/17/24 08:41 Levaquin Ivpb IV 07/23/24 08:59 50 mls/hr QDAY ANGELICA Administration Insulin Glargine 12 unit 07/13/24 09:00 07/14/24 08:52 Insulin Glargine (Lantus) 5 Unit/0.05 Ml (Per 5 Units) SC 08/12/24 08:59 Not Given QDAY ANGELICA Insulin Human Lispro 0 unit 07/13/24 07:30 07/17/24 12:53 Insulin Lispro (Admelog) 1 Unit/0.01 Ml Unit SC 08/12/24 07:29 Not Given AC ANGELICA Protocol Metoprolol Succinate 25 mg 07/13/24 09:00 07/17/24 09:09 Metoprolol Succinate Xl 25 Mg Tabcr PO 08/12/24 08:59 Not Given QDAY ANGELICA Midodrine 5 mg 07/12/24 22:00 07/17/24 06:02 Midodrine 5 Mg Tablet PO 08/11/24 21:59 Not Given TID ANGELICA Mirtazapine 15 mg 07/13/24 21:00 07/16/24 20:32 Mirtazapine 15 Mg Tablet PO 08/12/24 20:59 15 mg HS ANGELICA Administration Ondansetron HCl 4 mg 07/12/24 20:33 07/17/24 11:02 Ondansetron Inj 2 Mg/Ml Inj 2 Ml IV 08/11/24 20:32 4 mg Q6H PRN Administration NAUSEA OR VOMITING Protocol Pantoprazole Sodium 40 mg 07/13/24 09:30 07/17/24 08:39 Pantoprazole Inj 40 Mg Vial IVP 08/12/24 09:29 40 mg BID ANGELICA Administration Potassium Chloride 40 meq 07/17/24 15:00 Potassium Chloride 20 Meq Tabcr PO 07/17/24 15:01 X1 ONE Potassium Phos/Sodium Phos 1 packet 07/16/24 10:45 07/17/24 09:10 Naph,[facility] Mbdb 1 Packet (1.5 Gm) PO 07/18/24 10:44 Not Given BID ANGELICA Sennosides 1 tab 07/12/24 20:44 Senna Tablet PO 08/11/24 20:43 QDAY PRN CONSTIPATION Protocol Sucralfate 1 gm 07/13/24 11:30 07/17/24 12:56 Sucralfate Susp 1 Gm/10 Ml Udc PO 08/12/24 11:29 Not Given AC ANGELICA Plan Summary: The patient is a 69-year-old female with past medical history of diabetes mellitus, hypertension, atrial fibrillation on Eliquis, end-stage renal disease on hemodialysis (MWF), history of gastric ulcers, recent hospitalization [facility] for perforated gastric ulcer status post exploratory laparotomy complicated by recurrent abdominal and pelvic abscesses who presented from rehab with a chief complaint of vomiting. Patient admitted to hospital for further workup for dysphagia poor p.o. intake and possible intervention for adequate nutrition. #Failure to thrive #Nausea and vomiting #History of gastric ulcers Per patient's daughter on [facility] patient has significantly poor p.o. intake, takes only 2-3 bites, unable to maintain a normal appetite. Patient does complain of mild epigastric pain, patient does have history of gastric ulcers recently was admitted to hospital for complicated perforated gastric ulcer. Patient is able to take a few bites but GI Dr. Christianson was consulted, will possibly plan patient for PEG tube if family consents. 07/16/2024- Per nurse this morning, the patient had 1 episode of vomiting after she tried to give her some juice due to hypoglycemia. Labs were reviewed and potassium was attempted to be repleted, but patient had another episode of vomiting. Family still wanting to hold off on PEG tube placement, will touch base with them again as patient is unable to tolerate oral intake at this time 07/17/2024: Pt continues to have nausea with eating, including taking pills. Pt and family will have to make decision with goals of care including PEG tube at this time. Plan: ? GI consulted, appreciate recommendations - For possible PEG tube placement, holding off for now ? Protonix 40mg BID ? Maalox as needed ? Patient on dronabinol, resumed, mirtazapine resumed #Hx of afib with RVR, rate controlled Patient was noted to be in A-fib with RVR in ED, was given diltiazem 20 IV x 1, plan was to start patient on diltiazem drip. Patient's heart rate fluctuating in 90s to 110, no rapid ventricular response noted. Patient does have a history of atrial fibrillation, currently on amiodarone 200 twice daily, metoprolol succinate 25 p.o. daily and Eliquis 5 mg twice daily. Patient's last echo 05/16/2024 shows normal LV size and function, EF 55 to 60%, mild LVH stage I diastolic dysfunction. 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 Mild AV Sclerosis without stenosis. Plan: ?Resumed home dose amiodarone 200 twice daily, metoprolol succinate 25 mg p.o. daily ?Resume Eliquis after line removal ?Telemonitoring #Diabetes mellitus Patient has history of diabetes mellitus, last hemoglobin A1c was 6.3. Plan: ?Sliding scale insulin ?Resumed home dose Lantus 12 units daily ?Fingerstick blood glucose, blood glucose goal 140-180 ?Hypoglycemia protocol #ADILSON on hemodialysis MWF Patient received dialysis treatment yesterday, reports of allergic rash postdialysis. Received Benadryl Plan: -Continue inpatient dialysis, nephrology consulted ?Resume home dose midodrine #Health maintenance DVT prophylaxis: Eliquis (holding for cath removal and possible PEG) GI prophylaxis: IV Protonix Diet: Dysphagia 3 plus Nepro Lines: Peripheral IV Code status: DNR/DNI Patient seen and care discussed with my senior resident, Dr. Robertson, and my attending physician, Dr. Esa Mathews, PGY-1 Attending Provider Attestation/Addendum 69-year-old female with multiple comorbidities including hypertension, hyperlipidemia, atrial fibrillation on Eliquis, gastric ulceration with perforation status post expiratory laparotomy complicated by pelvic abscesses status post drainage and end-stage renal disease on hemodialysis Wednesday, Wednesday and Wednesday who presented to the ER with failure to thrive. Furthermore, patient has been having decreased p.o. intake discussed with family regarding need for motivation for food intake. Also discussed that if patient does not have adequate food intake she might need further workup and possibly a PEG tube placement.I reviewed above note and agree with findings and plans. I have also personally examined the patient with medicine team and went over assessment and plan with medical team including internal investigator and resident physician.
--- NOTE | 2024-07-17 16:00 | PC.NURSE ---
per Dr. See, hold discontinuation of dialysis catheter, to follow up with neurologist.
--- NOTE | 2024-07-17 17:49 | PD.IMPROG ---
Documentation for date of: 07/17/24 Subjective Subjective Interval history: Oral intake remains poor patient's family still wants to hold off putting a gastrostomy tube Exam Vital Signs Temp Pulse Resp BP Pulse Ox O2 Del Method 97.5 F 103 H 18 142/80 H 93 L Room Air 07/17/24 15:48 07/17/24 15:48 07/17/24 15:48 07/17/24 15:48 07/17/24 15:48 07/17/24 15:48 Objective Labs 07/17/24 05:05 07/17/24 05:05 Labs: Laboratory Results - last 24 hr 07/17/24 05:05 WBC 7.2 RBC 4.23 Hgb 10.8 L Hct 36.6 MCV 87 MCH 25.5 MCHC 29.5 L RDW Std Deviation 64.8 H Plt Count 213 D Neut % (Auto) 62 Lymph % (Auto) 27 [place] % (Auto) 8 Eos % (Auto) 0 Baso % (Auto) 1 Neut # (Auto) 4.5 Lymph # (Auto) 1.9 [place] # (Auto) 0.6 Eos # (Auto) 0.0 Baso # (Auto) 0.1 Immature Gran # (Auto) 0.16 H Absolute Nucleated RBC 0.00 Immature Gran % 2 H Nucleated RBC % 0 Sodium 142 Potassium 3.0 L Chloride 108 H Carbon Dioxide 22.9 Anion Gap 11 BUN 17 Creatinine 1.0 Estim Creat Clear Calc 43.2 L eGFR > 60 BUN/Creatinine Ratio 17 Glucose 108 H D Calculated Osmolality 285 Calcium 8.6 Corrected Calcium 9.9 Phosphorus 2.1 L Magnesium 1.8 Total Bilirubin 0.6 AST 27 ALT 15 Alkaline Phosphatase 90 Total Protein 4.9 L Albumin 2.4 L Globulin 2.5 Albumin/Globulin Ratio 1.0 L 25-OH Vitamin D Total 72.9 H PTH Intact 66.7 Impressions Impression: # Failure to thrive Continue to monitor oral intake and calorie count Assessment & Plan A&P Narrative # Failure to thrive Plan Case discussed in detail with the ER physician Difficult to put a PEG tube for further management of failure to thrive however will discuss with the family And attempt should be made if they agree To sustain appropriate nutrition for the patient by placement of a PEG tube Other medical problems include 1 end-stage renal disease hemodialysis MWF 2 chronic A-fib on Eliquis 3 status post exploratory laparotomy for perforated gastric ulcer Ramsey's patch and drainage of the subphrenic abscesses by IR drainage Thank you very much for the opportunity to participate in care of this patient Time Spent With Patient Time: Total time spent is greater than 50% in coordination of care (as documented) at patient's floor/unit and/or counseling patient:
[2024-07-18] VITALS (9 sets, daily range): BP systolic 119–143; BP diastolic 66–90; PULSE 74–112; RESP 16–93; TEMP 36.1–36.4; O2SAT 90–95
[2024-07-18 05:39] LABS: Basophils # (Auto) 0.1 Thou/mm3 (0.0-0.2); Basophils % (Auto) 1 % (0-2.5); Eosinophils % (Auto) 0 % (0-10); Hematocrit 38.4 % (36.0-46.0); Hemoglobin 11.8 g/dL (12.0-16.0); Immature Granulocytes % (Auto) 2 % (0-0); Immature Granulocytes Auto 0.18 Thou/mm3 (0.00-0.00); Lymphocytes # (Auto) 2.7 Thou/mm3 (1.0-4.8); Lymphocytes % (Auto) 29 % (10-50); Mean Corpuscular HGB Conc 30.7 g/dl (31.0-37.0); Mean Corpuscular Hemoglobin 26.1 pg (25.0-35.0); Mean Corpuscular Volume 85 fL (80-100); Monocytes # (Auto) 1.1 Thou/mm3 (0.0-0.8); Monocytes % (Auto) 12 % (0-12); Neutrophils # (Auto) 5.1 Thou/mm3 (1.8-7.7); Neutrophils % (Auto) 55 % (37-80); Nucleated Red Blood Cell % 0 /100 WBC (0); Platelet Count 210 Thou/mm3 (140-440); RDW Standard Deviation 63.2 fL (36.4-46.3); Red Blood Count 4.52 Miln/mm3 (4.00-5.20); White Blood Count 9.2 Thou/mm3 (3.6-11.0)
[2024-07-18 05:58] LABS: Alanine Aminotransferase 16 U/L (10-49); Albumin, Serum 2.5 gm/dL (3.4-4.8); Alkaline Phosphatase 94 U/L (46-116); Anion Gap 10 (7-16); Aspartate Amino Transferase 26 U/L (0-34); BUN/Creatinine Ratio 17 Ratio (12-20); Bilirubin,Total 0.6 mg/dL (0.3-1.2); Blood Urea Nitrogen 17 mg/dL (9-23); Calcium 8.6 mg/dL (8.3-10.6); Calcium (Corrected) 9.8 mg/dL (8.5-10.1); Carbon Dioxide 23.4 mMol/L (20.0-31.0); Chloride 107 mMol/L (98-107); Estimated Creatinine Clearance 43.2 mL/min (>60); Globulin 2.4 gm/dL (2.3-3.5); Glucose 80 mg/dL (74-106); Osmolality,Calculated 279 (275-295); Potassium 3.2 mMol/L (3.4-5.1); Sodium 140 mMol/L (136-145); Total Protein 4.9 gm/dL (5.7-8.2); eGFR > 60 See Note
[2024-07-18] MEDS: LEVOFLOXACIN/D5W 250MG IVPB 250 MG/50 ML BAG 50 MG IV (07:42)
[2024-07-18] MEDS: PANTOPRAZOLE INJ 40 MG VIAL IVP ×2 (07:42→20:39)
--- NOTE | 2024-07-18 10:19 | PD.NEPHPROG ---
Documentation for date of: 07/18/24 Subjective Subjective Interval history: patient is a 69-year-old female with significant past medical history of diabetes mellitus, hypertension, A-fib on Eliquis, ADILSON on hemodialysis, history of gastric ulcers, recent hospitalization in [facility] for perforated gastric ulcer s/p exploratory laparotomy complicated by recurrent abdominal and pelvic abscesses presented from rehab with chief complaint of vomiting. Vomiting is further aggravated by trying to eat, as after taking 2-3 bites she starts vomiting. Denies any fever or chills, headache, chest pain, abdominal pain, any leg swelling. The last hemodialysis and was 1 day ago. During our evaluation, her vitals were stable with soft blood pressure, saturating 92 to 95% on room air. Labs are significant for white count 13.6, hemoglobin 11.8, sodium 139, potassium 4.4, BUN 35, creatinine 1.8, GFR 40, A1c 4.9, corrected calcium 10.2. UA revealed turbid urine, protein 1+, bilirubin 1+, leukocyte esterase positive, WBC 84, bacteria 3+. Chest x-ray significant for mild heart failure pattern. Abdomen/pelvis CT significant for severe gastritis pattern, hyperdense gallbladder with possible pancreatitis. 07/14/2024: The patient was interviewed and examined at the bedside this morning. She reported doing okay. Her vitals were stable with mild tachycardia with heart rate 115. CBC fairly at baseline, chemistry panel revealed sodium 140, potassium 4.3, BUN 38, creatinine 1.7, GFR 32 and corrected calcium 10.2. We will continue to hold off on hemodialysis, and continue to monitor renal panel. 07/15/2024: The patient was interviewed and examined at the bedside this morning along with her son. She reported doing well. She denied any headache, chest pain or SOB, or any leg swelling. Her vitals were fairly stable. CBC at baseline, sodium 141, potassium 3.6, BUN 32, creatinine improving to 1.4, GFR 41, corrected calcium 10.2. We will hold off on hemodialysis, and continue to monitor renal panel. 07/17/2024 doing faily ok. Appetite still low. CR 1.2 Blood sugar 83. Blood pressure 116/89, heart rate 111. Hemoglobin 10.8. Sodium 142, potassium 3, BUN 17, creatinine 1.0, LFTs normal, phosphorus 2.1, magnesium 1.8, albumin 2.4, vitamin D72.9, PTH 66.7 dc dialysis cath in am 07/18/2024 patient currently seen in medical floor. Resting comfortably. LFTs normal. Albumin 2.5. Creatinine markedly improved to 1.0. Potassium 3.2.Patient and family refusing feeding tube. Patient came off dialysis. Pending catheter removal. Review of Systems Review of Systems Narrative Review of Systems: No cp, sob. No nausea, vomiting Denies any urinary symptoms of burning or frequency. Patient has a diaper pad Decreased appetite. Exam Vital Signs Temp Pulse Resp BP Pulse Ox O2 Del Method 36.4 C 74 18 142/66 H 90 L Room Air 07/18/24 08:00 07/18/24 08:00 07/18/24 08:00 07/18/24 08:00 07/18/24 08:00 07/18/24 04:00 Narrative Exam General: No acute distress, Alert and Oriented x 3 HEENT: Moist mucous membranes, oropharynx clear Neck: Supple, No masses, No JVD CVS: S1S2 Regular rate and rhythm, No murmurs, rubs or gallops Lungs: Clear to auscultation with no accessory use, no wheeze no rhonchi + IJ cath Abd: Soft, NT/ND, +BS, no organomegaly Ext: trace edema, warm and well perfused Skin: No rash Psych: Appropriate mood and affect Objective Labs 07/18/24 05:06 07/18/24 05:06 Labs: Laboratory Results - last 24 hr 07/18/24 05:06 WBC 9.2 RBC 4.52 Hgb 11.8 L Hct 38.4 MCV 85 MCH 26.1 MCHC 30.7 L RDW Std Deviation 63.2 H Plt Count 210 Neut % (Auto) 55 Lymph % (Auto) 29 [place] % (Auto) 12 Eos % (Auto) 0 Baso % (Auto) 1 Neut # (Auto) 5.1 Lymph # (Auto) 2.7 [place] # (Auto) 1.1 H Eos # (Auto) 0.0 Baso # (Auto) 0.1 Immature Gran # (Auto) 0.18 H Absolute Nucleated RBC 0.00 Immature Gran % 2 H Nucleated RBC % 0 Sodium 140 Potassium 3.2 L Chloride 107 Carbon Dioxide 23.4 Anion Gap 10 BUN 17 Creatinine 1.0 Estim Creat Clear Calc 43.2 L eGFR > 60 BUN/Creatinine Ratio 17 Glucose 80 Calculated Osmolality 279 Calcium 8.6 Corrected Calcium 9.8 Total Bilirubin 0.6 AST 26 ALT 16 Alkaline Phosphatase 94 Total Protein 4.9 L Albumin 2.5 L Globulin 2.4 Albumin/Globulin Ratio 1.0 L Assessment & Plan Additional Assessment & Plan Additional Plan: patient is a 69-year-old female with significant past medical history of diabetes mellitus, hypertension, A-fib on Eliquis, ADILSON on hemodialysis MWF, history of gastric ulcers, recent hospitalization in [facility] for perforated gastric ulcer s/p exploratory laparotomy complicated by recurrent abdominal and pelvic abscesses presented from rehab with chief complaint of vomiting. Nephrology consultation was done for further management of ADILSON on hemodialysis. #ADILSON -- was on hemodialysis MWF, improving Patient had ATN while she was admitted to ICU for soft blood pressure on 05/14/2024. Later she was started on hemodialysis for volume overload and oliguria. Presented with BUN 29, creatinine 1.8 and GFR 30, but within the last 3 months or GFR was worsened, gradually has been improving. 07/14/2024: BUN 35, creatinine 1.8 and GFR 30 07/15/2024: BUN 32, creatinine improved to 1.4 and GFR 41 07/18/2024 creatinine 1.0-will DC with dialysis, dialysis catheter. -Avoid nephrotoxic drugs -Renal dose modifications proceed with hemodialysis cath removal today replace potassium, phosphorus -Daily a.m. renal panel #Mild hypercalcemia Likely secondary to immobilization and possible dehydration in the setting of poor oral intake, nausea and vomiting further complicated by aggressive ultrafiltration during hemodialysis -Encouraged oral rehydration Better -Monitor calcium level daily in the a.m. #Gastritis #Dysphagia #Intractable nausea and vomiting #History of gastric ulcers #A-fib with RVR #Diabetes mellitus type II -Management deferred to primary hospitalist team Quality - progress note Quality Measures Quality Measures: VTE prophylaxis Reason for Continued Stay Reason for Continued Stay: further monitoring
[2024-07-18] MEDS: ACETAMINOPHEN 325 MG TABLET 650 MG PO (10:34)
[2024-07-18] MEDS: POTASSIUM CHL 10 mEq IVPB 10 MEQ/100 ML BAG 100 MEQ IV ×4 (10:40→14:46)
--- NOTE | 2024-07-18 10:43 | XR_ITS ---
Examination: Nuclear medicine gastric emptying study Exam date and time: July 18, 2024 1043 hours INDICATIONS: History gastric ulcers, vomiting abdominal pain months TECHNIQUE AND FINDINGS: Patient received 1.8 mCi technetium 99m sulfur colloid but vomited the material, no imaging IMPRESSION: Patient vomited the isotope, no imaging obtained
--- NOTE | 2024-07-18 12:24 | ESPR_ITS ---
Documentation for date of: 07/18/24 Subjective Subjective Interval history: Patient was seen and examined at bedside. No acute overnight events. Patient continues to experience food regurgitation after meals. Family is refusing PEG tube. Gastric emptying study is ordered today. Will discuss with GI possible EGD. Will continue current management and monitor patient. Electrolytes were repleted. Exam Vital Signs Temp Pulse Resp BP Pulse Ox O2 Del Method 97.6 F 74 18 142/66 H 90 L Room Air 07/18/24 08:00 07/18/24 08:00 07/18/24 08:00 07/18/24 08:00 07/18/24 08:00 07/18/24 04:00 Narrative Exam Gen: Well-developed and well-nourished female. HEENT: NCAT, PERRLA, EOMI, MMM, anicteric conjunctivae. CVS: normal S1 and S2. Irregularly irregular. No M/R/G. Resp: minimal crackles B/L. No rhonchi, rales or wheezing. Abd: soft, non-tender, non-distended. BS+ in all 4 quadrants. Well healing abdominal scar. MSK: Good ROM in BUE & BLE. No rash. Trace edema BLE. Neuro: CN II-XII grossly intact. Strength 5/5 in BUE & BLE. Alert and oriented x3. Psych: appropriate mood and affect. Objective Labs 07/19/24 04:53 07/19/24 04:53 Labs: Laboratory Results - last 24 hr 07/18/24 05:06 WBC 9.2 RBC 4.52 Hgb 11.8 L Hct 38.4 MCV 85 MCH 26.1 MCHC 30.7 L RDW Std Deviation 63.2 H Plt Count 210 Neut % (Auto) 55 Lymph % (Auto) 29 [place] % (Auto) 12 Eos % (Auto) 0 Baso % (Auto) 1 Neut # (Auto) 5.1 Lymph # (Auto) 2.7 [place] # (Auto) 1.1 H Eos # (Auto) 0.0 Baso # (Auto) 0.1 Immature Gran # (Auto) 0.18 H Absolute Nucleated RBC 0.00 Immature Gran % 2 H Nucleated RBC % 0 Sodium 140 Potassium 3.2 L Chloride 107 Carbon Dioxide 23.4 Anion Gap 10 BUN 17 Creatinine 1.0 Estim Creat Clear Calc 43.2 L eGFR > 60 BUN/Creatinine Ratio 17 Glucose 80 Calculated Osmolality 279 Calcium 8.6 Corrected Calcium 9.8 Total Bilirubin 0.6 AST 26 ALT 16 Alkaline Phosphatase 94 Total Protein 4.9 L Albumin 2.5 L Globulin 2.4 Albumin/Globulin Ratio 1.0 L Quality Measures Quality Measures VTE prophylaxis Advance care planning discussed with:: patient Assessment & Plan Assessment Current Active Medications: Generic Name Dose Route Start Last Admin Trade Name Freq PRN Reason Stop Dose Admin Acetaminophen 650 mg 07/12/24 20:33 07/18/24 10:34 Acetaminophen 325 Mg Tablet PO 08/11/24 20:32 650 mg Q6H PRN Administration Fever >101.5 Al Hydrox/Mg Hydrox/Simethicone 30 ml 07/12/24 20:51 Mg Hyd/Al Hyd/Ronald (Maalox Reg) Susp 30 Ml Udc PO 08/11/24 20:50 QID PRN UPSET STOMACH/INDIGESTION Amiodarone HCl 200 mg 07/12/24 21:00 07/18/24 08:01 Amiodarone Hcl 200 Mg Tablet PO 08/11/24 20:59 Not Given BID ANGELICA Apixaban 5 mg 07/13/24 09:00 07/16/24 10:17 Apixaban 2.5 Mg Tablet PO 08/12/24 08:59 Not Given BID ANGELICA Dextrose 50 ml 07/12/24 21:11 Dextrose 50%-Water Inj 50 Ml Syringe IV 08/11/24 21:10 Q15MIN PRN BG <50 OR BG <70 & pt unresponsive Dronabinol 10 mg 07/13/24 07:30 07/18/24 07:58 Dronabinol 2.5 Mg Capsule PO 08/12/24 07:29 Not Given BIDAC ANGELICA Glucagon 1 mg 07/12/24 21:11 Glucagon Inj 1 Mg Vial IM Q15MIN PRN BG <70, and no IV access Levofloxacin/Dextrose 250 mg in 50 mls @ 50 mls/hr 07/16/24 09:00 07/18/24 07:42 Levaquin Ivpb IV 07/23/24 08:59 50 mls/hr QDAY ANGELICA Administration Potassium Chloride 10 meq in 100 mls @ 100 mls/hr 07/18/24 08:06 07/18/24 12:13 Kcl Ivpb IV 07/18/24 14:05 100 mls/hr Q1H ANGELICA Administration Insulin Glargine 12 unit 07/13/24 09:00 07/14/24 08:52 Insulin Glargine (Lantus) 5 Unit/0.05 Ml (Per 5 Units) SC 08/12/24 08:59 Not Given QDAY ANGELICA Insulin Human Lispro 0 unit 07/13/24 07:30 07/18/24 12:01 Insulin Lispro (Admelog) 1 Unit/0.01 Ml Unit SC 08/12/24 07:29 Not Given AC ANGELICA Protocol Metoprolol Succinate 25 mg 07/13/24 09:00 07/18/24 08:01 Metoprolol Succinate Xl 25 Mg Tabcr PO 08/12/24 08:59 Not Given QDAY ANGELICA Midodrine 5 mg 07/12/24 22:00 07/18/24 05:06 Midodrine 5 Mg Tablet PO 08/11/24 21:59 Not Given TID ANGELICA Mirtazapine 15 mg 07/13/24 21:00 07/17/24 20:09 Mirtazapine 15 Mg Tablet PO 08/12/24 20:59 Not Given HS ANGELICA Ondansetron HCl 4 mg 07/12/24 20:33 07/17/24 11:02 Ondansetron Inj 2 Mg/Ml Inj 2 Ml IV 08/11/24 20:32 4 mg Q6H PRN Administration NAUSEA OR VOMITING Protocol Pantoprazole Sodium 40 mg 07/13/24 09:30 07/18/24 07:42 Pantoprazole Inj 40 Mg Vial IVP 08/12/24 09:29 40 mg BID ANGELICA Administration Sennosides 1 tab 07/12/24 20:44 Senna Tablet PO 08/11/24 20:43 QDAY PRN CONSTIPATION Protocol Sucralfate 1 gm 07/13/24 11:30 07/18/24 12:15 Sucralfate Susp 1 Gm/10 Ml Udc PO 08/12/24 11:29 Not Given AC ANGELICA Plan The patient is a 69-year-old female with past medical history of diabetes mellitus, hypertension, atrial fibrillation on Eliquis, end-stage renal disease on hemodialysis (MWF), history of gastric ulcers, recent hospitalization [facility] for perforated gastric ulcer status post exploratory laparotomy complicated by recurrent abdominal and pelvic abscesses who presented from rehab with a chief complaint of vomiting. Patient admitted to hospital for further workup for dysphagia poor p.o. intake and possible intervention for adequate nutrition. #Failure to thrive. #Nausea and vomiting. #History of gastric ulcers. #Severe gastritis, unspecified. Per patient's daughter on medical claims analyst of halfway home patient has significantly poor p.o. intake, takes only 2-3 bites, unable to maintain a normal appetite. Patient does complain of mild epigastric pain, patient does have history of gastric ulcers recently was admitted to hospital for complicated perforated gastric ulcer. Patient is able to take a few bites but GI Dr. Christianson was consulted, will possibly plan patient for PEG tube if family consents. 07/16/2024- Per nurse this morning, the patient had 1 episode of vomiting after she tried to give her some juice due to hypoglycemia. Labs were reviewed and potassium was attempted to be repleted, but patient had another episode of vomiting. Family still wanting to hold off on PEG tube placement, will touch base with them again as patient is unable to tolerate oral intake at this time 07/17/2024: Pt continues to have nausea with eating, including taking pills. Pt and family will have to make decision with goals of care including PEG tube at this time. Plan: ? GI consulted, appreciate recommendations. - Eliquis on hold for possible PEG tube placement. ? Protonix 40mg BID. ? Maalox as needed. ? Patient on dronabinol, resumed, mirtazapine resumed. - gastric emptying study ordered. #Hx of afib with RVR, rate controlled. Patient was noted to be in A-fib with RVR in ED, was given diltiazem 20 IV x 1, plan was to start patient on diltiazem drip. Patient's heart rate fluctuating in 90s to 110, no rapid ventricular response noted. Patient does have a history of atrial fibrillation, currently on amiodarone 200 twice daily, metoprolol succinate 25 p.o. daily and Eliquis 5 mg twice daily. Patient's last echo 05/16/2024 shows normal LV size and function, EF 55 to 60%, mild LVH stage I diastolic dysfunction. 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 Mild AV Sclerosis without stenosis. Plan: ? Resumed home dose amiodarone 200 twice daily, metoprolol succinate 25 mg p.o. daily. ? Eliquis on hold. ? Telemonitoring. #Diabetes mellitus. Patient has history of diabetes mellitus, last hemoglobin A1c was 6.3. Plan: ? Sliding scale insulin. ? Resumed home dose Lantus 12 units daily. ? Fingerstick blood glucose, blood glucose goal 140-180. ? Hypoglycemia protocol. #ADILSON on hemodialysis MWF. Patient received dialysis treatment yesterday, reports of allergic rash postdialysis. Received Benadryl Plan: - Continue inpatient dialysis, nephrology consulted. ? Resume home dose midodrine. Health maintenance: DVT prophylaxis: Eliquis (holding for cath removal and possible PEG) GI prophylaxis: IV Protonix Diet: Dysphagia 3 plus Nepro Lines: Peripheral IV Code status: DNR/DNI Plan of care discussed with attending Dr. Curry. Miguel Peraza MD, PGY 2. Disclaimer: This note was dictated by speech recognition. Minor errors in aboriginal liaison officer may be present due to voice recognition software. Attending Provider Attestation/Addendum I have examined the patient, reviewed labs and imaging findings, discussed the case with the resident(s), and reviewed entered orders. I agree with the plan of care as outlined in this note, with these additional summaries/recommendations: Patient seen at bedside. No acute overnight events. Patient continues to have failure to to thrive with intractable postprandial nausea and vomiting. Patient denies any difficulty initiating swallowing. She states the only thing she can keep down is water and reports she has no appetite. Unknown etiology for intractable nausea and vomiting. Possible etiologies are gastroparesis versus outlet obstruction versus previous abdominal surgeries. We will order gastric emptying study for today and see if patient can tolerate. Gastroenterology following. There have been ongoing discussions about PEG tube placement and family will defer for now. Continue appetite stimulant. Patient has history of A-fib and continue home amiodarone and metoprolol. Eliquis currently on hold and if no plans for PEG tube then we will resume. Continue insulin sliding scale for diabetes mellitus type 2. Previous A1c 6.3%. Patient was requiring hemodialysis on previous admission although urine output is appropriate and electrolytes are stable. Nephrology following and we will discontinue dialysis catheter. Continue midodrine as needed for history of hypotension. Repeat hematology and chemistry panel in AM. Dr. Curry
--- NOTE | 2024-07-18 16:03 | PC.SS ---
Patient remains on med/surg. She is on contact precautions. SS spoke to family who had questions about DME. They are contemplating taking patient home from hospital. They are considering a second opinion at [facility]. SS will follow up with family for any further questions/needs.
[2024-07-18] MEDS: DEXTROSE 50%-WATER INJ 50 ML SYRINGE IV (17:21)
[2024-07-18] MEDS: DEXTROSE 10%-WATER 500 ML 50 ML IV (18:28)
[2024-07-18] MEDS: MIRTAZAPINE 15 MG TABLET PO (20:38)
[2024-07-18] MEDS: AMIODARONE HCL 200 MG TABLET PO (20:38)
[2024-07-18] MEDS: MELATONIN 3 MG TABLET 6 MG PO (20:39)
--- NOTE | 2024-07-18 21:49 | PD.IMPROG ---
Documentation for date of: 07/18/24 Subjective Subjective Interval history: Patient evaluated Case discussed with internal medicine team Gastrostomy tube Family still does not want Exam Vital Signs Temp Pulse Resp BP Pulse Ox O2 Del Method 97.1 F 99 19 140/72 H 93 L Room Air 07/18/24 20:00 07/18/24 20:38 07/18/24 20:00 07/18/24 20:38 07/18/24 20:00 07/18/24 20:00 Objective Labs 07/18/24 05:06 07/18/24 05:06 Labs: Laboratory Results - last 24 hr 07/18/24 05:06 WBC 9.2 RBC 4.52 Hgb 11.8 L Hct 38.4 MCV 85 MCH 26.1 MCHC 30.7 L RDW Std Deviation 63.2 H Plt Count 210 Neut % (Auto) 55 Lymph % (Auto) 29 [place] % (Auto) 12 Eos % (Auto) 0 Baso % (Auto) 1 Neut # (Auto) 5.1 Lymph # (Auto) 2.7 [place] # (Auto) 1.1 H Eos # (Auto) 0.0 Baso # (Auto) 0.1 Immature Gran # (Auto) 0.18 H Absolute Nucleated RBC 0.00 Immature Gran % 2 H Nucleated RBC % 0 Sodium 140 Potassium 3.2 L Chloride 107 Carbon Dioxide 23.4 Anion Gap 10 BUN 17 Creatinine 1.0 Estim Creat Clear Calc 43.2 L eGFR > 60 BUN/Creatinine Ratio 17 Glucose 80 Calculated Osmolality 279 Calcium 8.6 Corrected Calcium 9.8 Total Bilirubin 0.6 AST 26 ALT 16 Alkaline Phosphatase 94 Total Protein 4.9 L Albumin 2.5 L Globulin 2.4 Albumin/Globulin Ratio 1.0 L Impressions Impression: # Failure to thrive Continue p.o. food and encouragement and was the family changes her mind I will be happy to attempt at least 2+ a gastrostomy tube Assessment & Plan A&P Narrative # Failure to thrive Plan Case discussed in detail with the ER physician Difficult to put a PEG tube for further management of failure to thrive however will discuss with the family And attempt should be made if they agree To sustain appropriate nutrition for the patient by placement of a PEG tube Other medical problems include 1 end-stage renal disease hemodialysis MWF 2 chronic A-fib on Eliquis 3 status post exploratory laparotomy for perforated gastric ulcer Ramsey's patch and drainage of the subphrenic abscesses by IR drainage Thank you very much for the opportunity to participate in care of this patient Time Spent With Patient Time: Total time spent is greater than 50% in coordination of care (as documented) at patient's floor/unit and/or counseling patient:
[2024-07-19] VITALS (10 sets, daily range): BP systolic 100–155; BP diastolic 60–92; PULSE 63–110; RESP 14–91; TEMP 35.6–36.7; O2SAT 90–94
[2024-07-19 05:20] LABS: Basophils # (Auto) 0.1 Thou/mm3 (0.0-0.2); Basophils % (Auto) 1 % (0-2.5); Eosinophils % (Auto) 0 % (0-10); Hematocrit 34.6 % (36.0-46.0); Hemoglobin 10.8 g/dL (12.0-16.0); Immature Granulocytes % (Auto) 2 % (0-0); Immature Granulocytes Auto 0.16 Thou/mm3 (0.00-0.00); Lymphocytes # (Auto) 2.7 Thou/mm3 (1.0-4.8); Lymphocytes % (Auto) 33 % (10-50); Mean Corpuscular HGB Conc 31.2 g/dl (31.0-37.0); Mean Corpuscular Hemoglobin 26.3 pg (25.0-35.0); Mean Corpuscular Volume 84 fL (80-100); Monocytes % (Auto) 13 % (0-12); Neutrophils # (Auto) 4.2 Thou/mm3 (1.8-7.7); Neutrophils % (Auto) 51 % (37-80); Nucleated Red Blood Cell % 0 /100 WBC (0); Platelet Count 222 Thou/mm3 (140-440); Red Blood Count 4.11 Miln/mm3 (4.00-5.20); White Blood Count 8.2 Thou/mm3 (3.6-11.0)
[2024-07-19 05:41] LABS: Alanine Aminotransferase 17 U/L (10-49); Albumin, Serum 2.3 gm/dL (3.4-4.8); Alkaline Phosphatase 88 U/L (46-116); Anion Gap 9 (7-16); Aspartate Amino Transferase 27 U/L (0-34); BUN/Creatinine Ratio 16 Ratio (12-20); Bilirubin,Total 0.7 mg/dL (0.3-1.2); Blood Urea Nitrogen 13 mg/dL (9-23); Calcium 8.2 mg/dL (8.3-10.6); Calcium (Corrected) 9.6 mg/dL (8.5-10.1); Carbon Dioxide 22.3 mMol/L (20.0-31.0); Chloride 107 mMol/L (98-107); Creatinine (Component) 0.8 mg/dL (0.6-1.3); Estimated Creatinine Clearance 56.9 mL/min (>60); Globulin 2.2 gm/dL (2.3-3.5); Glucose 99 mg/dL (74-106); Magnesium 1.6 mg/dL (1.6-2.6); Osmolality,Calculated 275 (275-295); Phosphorous 1.6 mg/dL (2.4-5.1); Potassium 3.4 mMol/L (3.4-5.1); Sodium 138 mMol/L (136-145); Total Protein 4.5 gm/dL (5.7-8.2); eGFR > 60 See Note
[2024-07-19] MEDS: DEXTROSE 10%-WATER 500 ML 50 ML IV (06:05)
--- NOTE | 2024-07-19 07:19 | ESPR_ITS ---
Documentation for date of: 07/19/24 Subjective Subjective Interval history: patient is a 69-year-old female with significant past medical history of diabetes mellitus, hypertension, A-fib on Eliquis, ADILSON on hemodialysis, history of gastric ulcers, recent hospitalization in [facility] for perforated gastric ulcer s/p exploratory laparotomy complicated by recurrent abdominal and pelvic abscesses presented from rehab with chief complaint of vomiting. Vomiting is further aggravated by trying to eat, as after taking 2-3 bites she starts vomiting. Denies any fever or chills, headache, chest pain, abdominal pain, any leg swelling. The last hemodialysis and was 1 day ago. During our evaluation, her vitals were stable with soft blood pressure, saturating 92 to 95% on room air. Labs are significant for white count 13.6, hemoglobin 11.8, sodium 139, potassium 4.4, BUN 35, creatinine 1.8, GFR 40, A1c 4.9, corrected calcium 10.2. UA revealed turbid urine, protein 1+, bilirubin 1+, leukocyte esterase positive, WBC 84, bacteria 3+. Chest x-ray significant for mild heart failure pattern. Abdomen/pelvis CT significant for severe gastritis pattern, hyperdense gallbladder with possible pancreatitis. 07/14/2024: The patient was interviewed and examined at the bedside this morning. She reported doing okay. Her vitals were stable with mild tachycardia with heart rate 115. CBC fairly at baseline, chemistry panel revealed sodium 140, potassium 4.3, BUN 38, creatinine 1.7, GFR 32 and corrected calcium 10.2. We will continue to hold off on hemodialysis, and continue to monitor renal panel. 07/15/2024: The patient was interviewed and examined at the bedside this morning along with her son. She reported doing well. She denied any headache, chest pain or SOB, or any leg swelling. Her vitals were fairly stable. CBC at baseline, sodium 141, potassium 3.6, BUN 32, creatinine improving to 1.4, GFR 41, corrected calcium 10.2. We will hold off on hemodialysis, and continue to monitor renal panel. 07/17/2024 doing faily ok. Appetite still low. CR 1.2 Blood sugar 83. Blood pressure 116/89, heart rate 111. Hemoglobin 10.8. Sodium 142, potassium 3, BUN 17, creatinine 1.0, LFTs normal, phosphorus 2.1, magnesium 1.8, albumin 2.4, vitamin D72.9, PTH 66.7 dc dialysis cath in am 07/18/2024 patient currently seen in medical floor. Resting comfortably. LFTs normal. Albumin 2.5. Creatinine markedly improved to 1.0. Potassium 3.2.Patient and family refusing feeding tube. Patient came off dialysis. Pending catheter removal. 07/19/2024 patient currently seen in medical floor. In contact isolation room. Still did not get the dialysis catheter removed. Hopefully can be done today. Replaced all electrolytes. Patient came off dialysis. Appetite still remains poor. Noted family did not want feeding tube. Hemoglobin 10.8, platelets 222. Sodium 138, potassium 3.4, creatinine 0.8, calcium 9.6, phosphorus 1.6, magnesium 1.6, LFTs normal, albumin 2.3, PTH 66.7 Review of Systems Review of Systems Narrative Review of Systems: No cp, sob. No nausea, vomiting Denies any urinary symptoms of burning or frequency. Patient has a diaper pad Decreased appetite. Patient feeling very fatigued and tired Exam Vital Signs Temp Pulse Resp BP Pulse Ox O2 Del Method 36.3 C 63 18 100/68 90 L Room Air 07/19/24 04:00 07/19/24 04:00 07/19/24 04:00 07/19/24 04:00 07/19/24 04:00 07/19/24 04:00 Narrative Exam General: No acute distress, Alert and Oriented x 3 HEENT: Moist mucous membranes, oropharynx clear Neck: Supple, No masses, No JVD CVS: S1S2 Regular rate and rhythm, No murmurs, rubs or gallops Lungs: Clear to auscultation with no accessory use, no wheeze no rhonchi + IJ cath Abd: Soft, NT/ND, +BS, no organomegaly Ext: trace edema, warm and well perfused Skin: No rash Psych: Seems to be sad Objective Labs 07/19/24 04:53 07/19/24 04:53 Labs: Laboratory Results - last 24 hr 07/19/24 04:53 WBC 8.2 RBC 4.11 Hgb 10.8 L Hct 34.6 L MCV 84 MCH 26.3 MCHC 31.2 RDW Std Deviation 62.0 H Plt Count 222 Neut % (Auto) 51 Lymph % (Auto) 33 [place] % (Auto) 13 H Eos % (Auto) 0 Baso % (Auto) 1 Neut # (Auto) 4.2 Lymph # (Auto) 2.7 [place] # (Auto) 1.0 H Eos # (Auto) 0.0 Baso # (Auto) 0.1 Immature Gran # (Auto) 0.16 H Absolute Nucleated RBC 0.00 Immature Gran % 2 H Nucleated RBC % 0 Sodium 138 Potassium 3.4 Chloride 107 Carbon Dioxide 22.3 Anion Gap 9 BUN 13 Creatinine 0.8 Estim Creat Clear Calc 56.9 L eGFR > 60 BUN/Creatinine Ratio 16 Glucose 99 Calculated Osmolality 275 Calcium 8.2 L Corrected Calcium 9.6 Phosphorus 1.6 L Magnesium 1.6 Total Bilirubin 0.7 AST 27 ALT 17 Alkaline Phosphatase 88 Total Protein 4.5 L Albumin 2.3 L Globulin 2.2 L Albumin/Globulin Ratio 1.0 L Assessment & Plan Additional Assessment & Plan Additional Plan: patient is a 69-year-old female with significant past medical history of diabetes mellitus, hypertension, A-fib on Eliquis, ADILSON on hemodialysis MWF, history of gastric ulcers, recent hospitalization in [facility] for perforated gastric ulcer s/p exploratory laparotomy complicated by recurrent abdominal and pelvic abscesses presented from rehab with chief complaint of vomiting. Nephrology consultation was done for further management of ADILSON on hemodialysis. #ADILSON -- was on hemodialysis MWF, improving Patient had ATN while she was admitted to ICU for soft blood pressure on 05/14/2024. Later she was started on hemodialysis for volume overload and oliguria. Presented with BUN 29, creatinine 1.8 and GFR 30, but within the last 3 months or GFR was worsened, gradually has been improving. 07/19/2024 creatinine 0.8-will DC with dialysis, dialysis catheter. -Avoid nephrotoxic drugs -Renal dose modifications proceed with hemodialysis cath removal today replace potassium, phosphorus -Daily a.m. renal panel #Mild hypercalcemia Likely secondary to immobilization and possible dehydration in the setting of poor oral intake, nausea and vomiting further complicated by aggressive ultrafiltration during hemodialysis -Encouraged oral rehydration Better -Monitor calcium level daily in the a.m. #Gastritis #Dysphagia #Intractable nausea and vomiting #History of gastric ulcers #A-fib with RVR #Diabetes mellitus type II -Management deferred to primary hospitalist team Quality - progress note Quality Measures Quality Measures: VTE prophylaxis Reason for Continued Stay Reason for Continued Stay: further monitoring
[2024-07-19] MEDS: SUCRALFATE SUSP 1 GM/10 ML UDC PO ×3 (07:42→17:15)
[2024-07-19] MEDS: droNABinol 2.5 MG CAPSULE 10 MG PO ×2 (07:42→17:15)
--- NOTE | 2024-07-19 07:55 | PC.NURSE ---
Gave patient morning medications she started vomiting a few minutes later
[2024-07-19] MEDS: Magnesium Sulfate 4 GM Ivpb 4 GM/50 ML BAG IV (09:24)
[2024-07-19] MEDS: AMIODARONE HCL 200 MG TABLET PO ×2 (09:41→21:16)
[2024-07-19] MEDS: PANTOPRAZOLE INJ 40 MG VIAL IVP ×2 (09:41→21:16)
[2024-07-19] MEDS: METOPROLOL SUCCINATE XL 25 MG TABCR PO (09:41)
[2024-07-19] MEDS: LEVOFLOXACIN/D5W 250MG IVPB 250 MG/50 ML BAG 50 MG IV (09:42)
--- NOTE | 2024-07-19 10:00 | PD.IMPROG ---
Documentation for date of: 07/19/24 Subjective Subjective Interval history: Patient vomited this morning Nuclear medicine gastric emptying study would be unreliable in the setting of recent gastric surgery Exam Vital Signs Temp Pulse Resp BP Pulse Ox O2 Del Method 97.2 F 75 19 125/60 94 L Room Air 07/19/24 08:00 07/19/24 09:41 07/19/24 08:00 07/19/24 09:41 07/19/24 08:00 07/19/24 08:00 Routine Abdominal Exam Comments: Soft nontender positive bowel sounds Objective Labs 07/19/24 04:53 07/19/24 04:53 Labs: Laboratory Results - last 24 hr 07/19/24 04:53 WBC 8.2 RBC 4.11 Hgb 10.8 L Hct 34.6 L MCV 84 MCH 26.3 MCHC 31.2 RDW Std Deviation 62.0 H Plt Count 222 Neut % (Auto) 51 Lymph % (Auto) 33 [place] % (Auto) 13 H Eos % (Auto) 0 Baso % (Auto) 1 Neut # (Auto) 4.2 Lymph # (Auto) 2.7 [place] # (Auto) 1.0 H Eos # (Auto) 0.0 Baso # (Auto) 0.1 Immature Gran # (Auto) 0.16 H Absolute Nucleated RBC 0.00 Immature Gran % 2 H Nucleated RBC % 0 Sodium 138 Potassium 3.4 Chloride 107 Carbon Dioxide 22.3 Anion Gap 9 BUN 13 Creatinine 0.8 Estim Creat Clear Calc 56.9 L eGFR > 60 BUN/Creatinine Ratio 16 Glucose 99 Calculated Osmolality 275 Calcium 8.2 L Corrected Calcium 9.6 Phosphorus 1.6 L Magnesium 1.6 Total Bilirubin 0.7 AST 27 ALT 17 Alkaline Phosphatase 88 Total Protein 4.5 L Albumin 2.3 L Globulin 2.2 L Albumin/Globulin Ratio 1.0 L Impressions Impression: # Failure to thrive # Poor p.o. intake Family still reluctant for having a PEG tube placement Assessment & Plan A&P Narrative # Failure to thrive Plan Case discussed in detail with the ER physician Difficult to put a PEG tube for further management of failure to thrive however will discuss with the family And attempt should be made if they agree To sustain appropriate nutrition for the patient by placement of a PEG tube Other medical problems include 1 end-stage renal disease hemodialysis MWF 2 chronic A-fib on Eliquis 3 status post exploratory laparotomy for perforated gastric ulcer Ramsey's patch and drainage of the subphrenic abscesses by IR drainage Thank you very much for the opportunity to participate in care of this patient Time Spent With Patient Time: Total time spent is greater than 50% in coordination of care (as documented) at patient's floor/unit and/or counseling patient:
[2024-07-19] MEDS: POTASSIUM PHOS 22.5 MMOL in SODIUM CHLORIDE 0.9% 500 ML 500 ML 82.778 MMOL IV (11:17)
--- NOTE | 2024-07-19 15:24 | ESPR_ITS ---
<Statement entered by Miguel Peraza MD - 07/19/24 18:18> Senior Resident Attestation: I supervised/discussed management plan with procurement intern physician Dr. Stanley, and was involved in the care of this patient. I personally saw and examined the patient and discussed the assessment and plan with the entire medicine team, including my attending. I agree with the assessment and plan as documented. Patient's care was discussed with attending physician, Dr. Curry. Miguel Peraza MD PGY-2. Documentation for date of: 07/19/24 Subjective Subjective Interval history: Patient seen at bedside. No acute overnight events. She was scheduled to have nuclear medicine gastric emptying scan yesterday, however was scheduled for today. Patient is reported to have vomited this morning and has been rescheduled for tomorrow. Exam Vital Signs Temp Pulse Resp BP Pulse Ox O2 Del Method 96.3 F L 80 17 125/78 92 L Room Air 07/19/24 12:00 07/19/24 14:37 07/19/24 12:00 07/19/24 14:37 07/19/24 12:00 07/19/24 12:00 Narrative Exam GENERAL: AAOX3 NEURO: LOCATION MANAGER grossly intact, moves extremities x4 HEENT: Moist mucosa. Eyes open, symmetrical, & clear CARDIO: No chest pain on palpation. Heart RRR, no obvious murmurs PULM: No noted coughing/dyspnea. Lungs CTA B/L GI: Abdomen soft, nondistended, no pain on palpation. BSx4 URO/SENIOR QUALITY METHODS SPECIALIST:: No further abnormalities noted. SKIN/MSK/EXT: No wounds/rashes/edema/amputations, no pain on palpation. Pedal pulses present B/L Objective Labs 07/20/24 04:59 07/20/24 04:59 Labs: Laboratory Results - last 24 hr 07/19/24 04:53 WBC 8.2 RBC 4.11 Hgb 10.8 L Hct 34.6 L MCV 84 MCH 26.3 MCHC 31.2 RDW Std Deviation 62.0 H Plt Count 222 Neut % (Auto) 51 Lymph % (Auto) 33 Mcmullen % (Auto) 13 H Eos % (Auto) 0 Baso % (Auto) 1 Neut # (Auto) 4.2 Lymph # (Auto) 2.7 Mcmullen # (Auto) 1.0 H Eos # (Auto) 0.0 Baso # (Auto) 0.1 Immature Gran # (Auto) 0.16 H Absolute Nucleated RBC 0.00 Immature Gran % 2 H Nucleated RBC % 0 Sodium 138 Potassium 3.4 Chloride 107 Carbon Dioxide 22.3 Anion Gap 9 BUN 13 Creatinine 0.8 Estim Creat Clear Calc 56.9 L eGFR > 60 BUN/Creatinine Ratio 16 Glucose 99 Calculated Osmolality 275 Calcium 8.2 L Corrected Calcium 9.6 Phosphorus 1.6 L Magnesium 1.6 Total Bilirubin 0.7 AST 27 ALT 17 Alkaline Phosphatase 88 Total Protein 4.5 L Albumin 2.3 L Globulin 2.2 L Albumin/Globulin Ratio 1.0 L Quality Measures Quality Measures VTE prophylaxis Advance care planning discussed with:: other Assessment & Plan Assessment Current Active Medications: Generic Name Dose Route Start Last Admin Trade Name Freq PRN Reason Stop Dose Admin Acetaminophen 650 mg 07/12/24 20:33 07/18/24 10:34 Acetaminophen 325 Mg Tablet PO 08/11/24 20:32 650 mg Q6H PRN Administration Fever >101.5 Al Hydrox/Mg Hydrox/Simethicone 30 ml 07/12/24 20:51 Mg Hyd/Al Hyd/Ronald (Maalox Reg) Susp 30 Ml Udc PO 08/11/24 20:50 QID PRN UPSET STOMACH/INDIGESTION Amiodarone HCl 200 mg 07/12/24 21:00 07/19/24 09:41 Amiodarone Hcl 200 Mg Tablet PO 08/11/24 20:59 200 mg BID ANGELICA Administration Apixaban 5 mg 07/13/24 09:00 07/16/24 10:17 Apixaban 2.5 Mg Tablet PO 08/12/24 08:59 Not Given BID ANGELICA Dextrose 50 ml 07/12/24 21:11 07/18/24 17:21 Dextrose 50%-Water Inj 50 Ml Syringe IV 08/11/24 21:10 50 ml Q15MIN PRN Administration BG <50 OR BG <70 & pt unresponsive Dronabinol 10 mg 07/13/24 07:30 07/19/24 07:42 Dronabinol 2.5 Mg Capsule PO 08/12/24 07:29 10 mg BIDAC ANGELICA Administration Glucagon 1 mg 07/12/24 21:11 Glucagon Inj 1 Mg Vial IM Q15MIN PRN BG <70, and no IV access Levofloxacin/Dextrose 250 mg in 50 mls @ 50 mls/hr 07/16/24 09:00 07/19/24 09:42 Levaquin Ivpb IV 07/23/24 08:59 50 mls/hr QDAY ANGLEICA Administration Insulin Glargine 12 unit 07/13/24 09:00 07/14/24 08:52 Insulin Glargine (Lantus) 5 Unit/0.05 Ml (Per 5 Units) SC 08/12/24 08:59 Not Given QDAY ANGELICA Insulin Human Lispro 0 unit 07/13/24 07:30 07/19/24 11:15 Insulin Lispro (Admelog) 1 Unit/0.01 Ml Unit SC 08/12/24 07:29 Not Given AC [facility] Protocol Melatonin 6 mg 07/19/24 21:00 Melatonin 3 Mg Tablet PO 08/18/24 20:59 HS ANGELICA Metoprolol Succinate 25 mg 07/13/24 09:00 07/19/24 09:41 Metoprolol Succinate Xl 25 Mg Tabcr PO 08/12/24 08:59 25 mg QDAY ANGELICA Administration Midodrine 5 mg 07/12/24 22:00 07/19/24 14:37 Midodrine 5 Mg Tablet PO 08/11/24 21:59 Not Given TID ANGELICA Mirtazapine 15 mg 07/13/24 21:00 07/18/24 20:38 Mirtazapine 15 Mg Tablet PO 08/12/24 20:59 15 mg HS ANGELICA Administration Ondansetron HCl 4 mg 07/12/24 20:33 07/17/24 11:02 Ondansetron Inj 2 Mg/Ml Inj 2 Ml IV 08/11/24 20:32 4 mg Q6H PRN Administration NAUSEA OR VOMITING Protocol Pantoprazole Sodium 40 mg 07/13/24 09:30 07/19/24 09:41 Pantoprazole Inj 40 Mg Vial IVP 08/12/24 09:29 40 mg BID ANGELICA Administration Sennosides 1 tab 07/12/24 20:44 Senna Tablet PO 08/11/24 20:43 QDAY PRN CONSTIPATION Protocol Sucralfate 1 gm 07/13/24 11:30 07/19/24 11:38 Sucralfate Susp 1 Gm/10 Ml Udc PO 03/15/25 11:29 1 gm AC ANGELICA Administration Plan Summary: The patient is a 69-year-old female with past medical history of diabetes mellitus, hypertension, atrial fibrillation on Eliquis, end-stage renal disease on hemodialysis (MWF), history of gastric ulcers, recent hospitalization [facility] for perforated gastric ulcer status post exploratory laparotomy complicated by recurrent abdominal and pelvic abscesses who presented from rehab with a chief complaint of vomiting. Patient admitted to hospital for further workup for dysphagia poor p.o. intake and possible intervention for adequate nutrition. #Failure to thrive. #Nausea and vomiting. #History of gastric ulcers. #Severe gastritis, unspecified. Per patient's daughter on medical science liaison of snf home patient has significantly poor p.o. intake, takes only 2-3 bites, unable to maintain a normal appetite. Patient does complain of mild epigastric pain, patient does have history of gastric ulcers recently was admitted to hospital for complicated perforated gastric ulcer. Patient is able to take a few bites but GI Dr. Christianson was consulted, will possibly plan patient for PEG tube if family consents. 07/16/2024- Per nurse this morning, the patient had 1 episode of vomiting after she tried to give her some juice due to hypoglycemia. Labs were reviewed and potassium was attempted to be repleted, but patient had another episode of vomiting. Family still wanting to hold off on PEG tube placement, will touch base with them again as patient is unable to tolerate oral intake at this time 07/17/2024: Pt continues to have nausea with eating, including taking pills. Pt and family will have to make decision with goals of care including PEG tube at this time. 07/19/2024: Patient's family still keeping PEG tube on hold. She was scheduled to have nuclear medicine gastric emptying scan yesterday, however was scheduled for today. Patient is reported to have vomited this morning and has been rescheduled for tomorrow. Plan: ? GI consulted, appreciate recommendations. - Eliquis on hold for possible PEG tube placement. ? Protonix 40mg BID. ? Maalox as needed. ? Patient on dronabinol, resumed, mirtazapine resumed. - Pending gastric emptying study ordered. #Hx of afib with RVR, rate controlled. Patient was noted to be in A-fib with RVR in ED, was given diltiazem 20 IV x 1, plan was to start patient on diltiazem drip. Patient's heart rate fluctuating in 90s to 110, no rapid ventricular response noted. Patient does have a history of atrial fibrillation, currently on amiodarone 200 twice daily, metoprolol succinate 25 p.o. daily and Eliquis 5 mg twice daily. Patient's last echo 05/16/2024 shows normal LV size and function, EF 55 to 60%, mild LVH stage I diastolic dysfunction. 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 Mild AV Sclerosis without stenosis. Plan: ? Resumed home dose amiodarone 200 twice daily, metoprolol succinate 25 mg p.o. daily. ? Eliquis on hold. ? Telemonitoring. #Diabetes mellitus. Patient has history of diabetes mellitus, last hemoglobin A1c was 6.3. Plan: ? Sliding scale insulin. ? Resumed home dose Lantus 12 units daily. ? Fingerstick blood glucose, blood glucose goal 140-180. ? Hypoglycemia protocol. #ADILSON on hemodialysis MWF-resolved Patient received dialysis treatment yesterday, reports of allergic rash postdialysis. Received Benadryl BUN and creatinine within normal limits. Patient is now off dialysis Plan: - Dialysis discontinued ? Resume home dose midodrine. Health maintenance: DVT prophylaxis: Eliquis (holding for cath removal and possible PEG) GI prophylaxis: IV Protonix Diet: Dysphagia 3 plus Nepro Lines: Peripheral IV Code status: DNR/DNI Case was discussed with Dr Marie PGY-2 and attending physician, Dr Curry Disclaimer: This note was dictated by speech recognition. Minor errors in sterilization technician may be present due to voice recognition software. Attending Provider Attestation/Addendum I have examined the patient, reviewed labs and imaging findings, discussed the case with the resident(s), and reviewed entered orders. I agree with the plan of care as outlined in this note, with these additional summaries/recommendations: Patient seen at bedside. No acute overnight events. Patient continues to have failure to thrive with intractable postprandial nausea and vomiting. Documentation reveals she has not had any oral intake in the last 24 hours although family frequently at bedside and appears to be giving her some sort of oral intake throughout the day. Continue D10W, Dronabinol, & Maalox. Patient denies any difficulty initiating swallowing. She states the only thing she can keep down is water and reports she has no appetite. Unknown etiology for intractable nausea and vomiting. Possible etiologies are gastroparesis versus outlet obstruction versus previous abdominal surgeries. Pending gastric emptying study and will see if patient can tolerate. Gastroenterology following. There have been ongoing discussions about PEG tube placement and family will defer for now although appears to be trending towards requiring artificial nutrition if no improvement. Patient has history of A-fib and continue home amiodarone and metoprolol. Eliquis currently on hold and if no plans for PEG tube then we will resume. Continue insulin sliding scale for diabetes mellitus type 2. Previous A1c 6.3%. Patient was requiring hemodialysis on previous admission although urine output is appropriate and electrolytes are stable. Nephrology following and we will discontinue dialysis catheter. Continue midodrine as needed for history of hypotension. Continue levofloxacin for urinary tract infection. Repeat hematology and chemistry panel in AM. Dr. Antoinette MD
[2024-07-19] MEDS: MIRTAZAPINE 15 MG TABLET PO (21:15)
[2024-07-19] MEDS: MELATONIN 3 MG TABLET 6 MG PO (21:16)
[2024-07-20] VITALS (14 sets, daily range): BP systolic 98–150; BP diastolic 79–99; PULSE 64–119; RESP 18–92; TEMP 35.7–36.7; O2SAT 91–100; BMI 27.6; BMI 12.0
[2024-07-20] MEDS: ALBUTEROL/IPRATROPIUM (Duoneb) RT SOL 3 ML NEBU INH ×2 (00:37→17:25)
[2024-07-20 05:30] LABS: Basophils # (Auto) 0.1 Thou/mm3 (0.0-0.2); Basophils % (Auto) 1 % (0-2.5); Eosinophils % (Auto) 1 % (0-10); Hematocrit 33.4 % (36.0-46.0); Hemoglobin 10.5 g/dL (12.0-16.0); Immature Granulocytes % (Auto) 2 % (0-0); Immature Granulocytes Auto 0.12 Thou/mm3 (0.00-0.00); Lymphocytes # (Auto) 2.7 Thou/mm3 (1.0-4.8); Lymphocytes % (Auto) 34 % (10-50); Mean Corpuscular HGB Conc 31.4 g/dl (31.0-37.0); Mean Corpuscular Hemoglobin 26.1 pg (25.0-35.0); Mean Corpuscular Volume 83 fL (80-100); Monocytes # (Auto) 0.9 Thou/mm3 (0.0-0.8); Monocytes % (Auto) 11 % (0-12); Neutrophils # (Auto) 4.2 Thou/mm3 (1.8-7.7); Neutrophils % (Auto) 52 % (37-80); Nucleated Red Blood Cell % 0 /100 WBC (0); Platelet Count 230 Thou/mm3 (140-440); RDW Standard Deviation 60.9 fL (36.4-46.3); Red Blood Count 4.03 Miln/mm3 (4.00-5.20)
[2024-07-20 06:32] LABS: Alanine Aminotransferase 17 U/L (10-49); Albumin, Serum 2.3 gm/dL (3.4-4.8); Alkaline Phosphatase 94 U/L (46-116); Anion Gap 12 (7-16); Aspartate Amino Transferase 31 U/L (0-34); BUN/Creatinine Ratio 13 Ratio (12-20); Bilirubin,Total 0.6 mg/dL (0.3-1.2); Blood Urea Nitrogen 10 mg/dL (9-23); Calcium 8.4 mg/dL (8.3-10.6); Calcium (Corrected) 9.8 mg/dL (8.5-10.1); Carbon Dioxide 18.1 mMol/L (20.0-31.0); Chloride 107 mMol/L (98-107); Creatinine (Component) 0.8 mg/dL (0.6-1.3); Estimated Creatinine Clearance 56.9 mL/min (>60); Globulin 2.3 gm/dL (2.3-3.5); Glucose 93 mg/dL (74-106); Magnesium 1.9 mg/dL (1.6-2.6); Osmolality,Calculated 272 (275-295); Phosphorous 2.8 mg/dL (2.4-5.1); Potassium 3.7 mMol/L (3.4-5.1); Sodium 137 mMol/L (136-145); Total Protein 4.6 gm/dL (5.7-8.2); eGFR > 60 See Note
--- NOTE | 2024-07-20 09:12 | PC.NURSE ---
received order for removal of dialysis catheter, called daughter Debbie Castellanos to obtain telephone consent, daughter refused to give consent at this time states that patient Doris Castellanos has fluid in her feet, she wants to do more testing before removing dialysis catheter because she does not want to remove it and then having to come back to IR to put the dialysis catheter back again. Dr August made aware of family decision, procedure placed on hold at this time, MD will talk to family and make a decision after talking to family.
--- NOTE | 2024-07-20 09:52 | XR_ITS ---
Examination: CT chest, without intravenous contrast. CT abdomen, without intravenous contrast. 2-D sagittal and coronal reconstructions. 3-D reconstructions. Date and time of exam:July 20, 2024 at 10:36 AM Comparison July 12, 2024 INDICATIONS: Onset intractable vomiting today CTDI vol (mgy) 9.95 DLP (MGycm)533 Technique: Multiple CT images, 3.0 mm slice thickness, obtained chest, abdomen, pelvis, with the high-resolution 64 slice scanner.. Sagittal and coronal 2-D reconstructions are obtained. 3-D reconstructions Low dose protocols were performed. One or more of the following dose reduction techniques were used; automated exposure control, adjustment of the mA and/or KV according to patient size, use of iterative reconstruction technique. Findings: Mild aneurysmal dilatation ascending thoracic aorta 4.1 cm AP dimension No pulmonary artery significant enlargement No paratracheal tracheobronchial or bronchopulmonary adenopathy Moderate enlargement cardiac contour, mitral valvular calcification Prominent vascular congestion with subtle perihilar edema Moderate right mild left pleural fluid No focal liver lesions Hyperdense gallbladder Marked mucosal edema in the stomach Findings most consistent with penetrating gastric ulcer along the greater curvature with localized perforation axial image 165 Marked edema surrounding the stomach No pancreatic mass Benign left renal cyst no hydronephrosis Heavy abdominal aortic calcification No bowel obstruction IMPRESSION: Findings most consistent with gastric ulcer with localized perforation and severe gastritis, recommend surgical consultation
[2024-07-20] MEDS: LEVOFLOXACIN/D5W 250MG IVPB 250 MG/50 ML BAG 50 MG IV (10:00)
[2024-07-20] MEDS: PANTOPRAZOLE INJ 40 MG VIAL IVP ×2 (10:00→21:00)
[2024-07-20 10:27] LABS: INR 1.4 (0.9-1.3); Partial Thromboplastin Time 29.9 Seconds (22.0-36.0); Prothrombin Time 14.5 Seconds (9.0-12.2)
--- NOTE | 2024-07-20 10:57 | PC.SS ---
Follow up note: SS spoke to Samantha, daughter and alt medical decision maker regarding final d/c plans. SS inquired if family wanted patient to return to [facility] or were they considering services. Daughter states they need to discuss this as a family. They were contemplating a second opinion in [place]. Daughter will contact me back with response. SS will update [facility]. Staff from facility was here yesterday to speak with family and do an on site eval of patient. Patient bed hold was up as of yesterday.
--- NOTE | 2024-07-20 13:36 | ESPR_ITS ---
Documentation for date of: 07/20/24 Subjective Subjective Interval history: patient is a 69-year-old female with significant past medical history of diabetes mellitus, hypertension, A-fib on Eliquis, ADILSON on hemodialysis, history of gastric ulcers, recent hospitalization in [facility] for perforated gastric ulcer s/p exploratory laparotomy complicated by recurrent abdominal and pelvic abscesses presented from rehab with chief complaint of vomiting. Vomiting is further aggravated by trying to eat, as after taking 2-3 bites she starts vomiting. Denies any fever or chills, headache, chest pain, abdominal pain, any leg swelling. The last hemodialysis and was 1 day ago. During our evaluation, her vitals were stable with soft blood pressure, saturating 92 to 95% on room air. Labs are significant for white count 13.6, hemoglobin 11.8, sodium 139, potassium 4.4, BUN 35, creatinine 1.8, GFR 40, A1c 4.9, corrected calcium 10.2. UA revealed turbid urine, protein 1+, bilirubin 1+, leukocyte esterase positive, WBC 84, bacteria 3+. Chest x-ray significant for mild heart failure pattern. Abdomen/pelvis CT significant for severe gastritis pattern, hyperdense gallbladder with possible pancreatitis. 07/14/2024: The patient was interviewed and examined at the bedside this morning. She reported doing okay. Her vitals were stable with mild tachycardia with heart rate 115. CBC fairly at baseline, chemistry panel revealed sodium 140, potassium 4.3, BUN 38, creatinine 1.7, GFR 32 and corrected calcium 10.2. We will continue to hold off on hemodialysis, and continue to monitor renal panel. 07/15/2024: The patient was interviewed and examined at the bedside this morning along with her son. She reported doing well. She denied any headache, chest pain or SOB, or any leg swelling. Her vitals were fairly stable. CBC at baseline, sodium 141, potassium 3.6, BUN 32, creatinine improving to 1.4, GFR 41, corrected calcium 10.2. We will hold off on hemodialysis, and continue to monitor renal panel. 07/17/2024 doing faily ok. Appetite still low. CR 1.2 Blood sugar 83. Blood pressure 116/89, heart rate 111. Hemoglobin 10.8. Sodium 142, potassium 3, BUN 17, creatinine 1.0, LFTs normal, phosphorus 2.1, magnesium 1.8, albumin 2.4, vitamin D72.9, PTH 66.7 dc dialysis cath in am 07/18/2024 patient currently seen in medical floor. Resting comfortably. LFTs normal. Albumin 2.5. Creatinine markedly improved to 1.0. Potassium 3.2.Patient and family refusing feeding tube. Patient came off dialysis. Pending catheter removal. 07/20/2024 patient currently seen in medical floor. In contact isolation room. Still did not get the dialysis catheter removed. Apparently daughter wanted to hold off for dialysis catheter removal due to edema. Tried to reach the daughter but could not today. Will retry tomorrow. Labs showed creatinine 0.8. Albumin significantly low could be causing third spacing. Review of Systems Review of Systems Narrative Review of Systems: No cp, sob. No nausea, vomiting Denies any urinary symptoms of burning or frequency. Patient has a diaper pad Decreased appetite. Patient feeling very fatigued and tired Exam Vital Signs Temp Pulse Resp BP Pulse Ox O2 Del Method 35.9 C L 64 24 H 150/99 H 97 Room Air 07/20/24 12:00 07/20/24 12:00 07/20/24 12:00 07/20/24 12:00 07/20/24 12:07/20/24 12:00 Narrative Exam General: No acute distress, Alert and Oriented x 3 HEENT: Moist mucous membranes, oropharynx clear Neck: Supple, No masses, No JVD CVS: S1S2 Regular rate and rhythm, No murmurs, rubs or gallops Lungs: Clear to auscultation with no accessory use, no wheeze no rhonchi + IJ cath Abd: Soft, NT/ND, +BS, no organomegaly Ext: 1+ edema in the lower extremities Skin: No rash Neurological-alert and awake Objective Labs 07/22/24 06:38 07/22/24 06:38 Labs: Laboratory Results - last 24 hr 07/20/24 07/20/24 04:59 09:34 WBC 8.0 RBC 4.03 Hgb 10.5 L Hct 33.4 L MCV 83 MCH 26.1 MCHC 31.4 RDW Std Deviation 60.9 H Plt Count 230 Neut % (Auto) 52 Lymph % (Auto) 34 [place] % (Auto) 11 Eos % (Auto) 1 Baso % (Auto) 1 Neut # (Auto) 4.2 Lymph # (Auto) 2.7 [place]ah # (Auto) 0.9 H Eos # (Auto) 0.0 Baso # (Auto) 0.1 Immature Gran # (Auto) 0.12 H Absolute Nucleated RBC 0.00 Immature Gran % 2 H Nucleated RBC % 0 PT 14.5 H INR 1.4 H APTT 29.9 Sodium 137 Potassium 3.7 Chloride 107 Carbon Dioxide 18.1 L Anion Gap 12 BUN 10 Creatinine 0.8 Estim Creat Clear Calc 56.9 L eGFR > 60 BUN/Creatinine Ratio 13 Glucose 93 Calculated Osmolality 272 L Calcium 8.4 Corrected Calcium 9.8 Phosphorus 2.8 Magnesium 1.9 Total Bilirubin 0.6 AST 31 ALT 17 Alkaline Phosphatase 94 Total Protein 4.6 L Albumin 2.3 L Globulin 2.3 Albumin/Globulin Ratio 1.0 L Assessment & Plan Additional Assessment & Plan Additional Plan: patient is a 69-year-old female with significant past medical history of diabetes mellitus, hypertension, A-fib on Eliquis, ADILSON on hemodialysis MWF, history of gastric ulcers, recent hospitalization in [facility] for perforated gastric ulcer s/p exploratory laparotomy complicated by recurrent abdominal and pelvic abscesses presented from rehab with chief complaint of vomiting. Nephrology consultation was done for further management of ADILSON on hemodialysis. #ADILSON -- was on hemodialysis MWF, improving Patient had ATN while she was admitted to ICU for soft blood pressure on 05/14/2024. Later she was started on hemodialysis for volume overload and oliguria. Presented with BUN 29, creatinine 1.8 and GFR 30, but within the last 3 months or GFR was worsened, gradually has been improving. 07/20/2024 creatinine 0.8-will DC dialysis catheter. Apparently daughter refused to sign the consent. Will discuss with her and ease her concerns. Left message -Avoid nephrotoxic drugs -Renal dose modifications replace potassium, phosphorus -Daily a.m. renal panel #Mild hypercalcemia Likely secondary to immobilization and possible dehydration in the setting of poor oral intake, nausea and vomiting further complicated by aggressive ultrafiltration during hemodialysis -Encouraged oral rehydration Better -Monitor calcium level daily in the a.m. #Gastritis #Dysphagia #Intractable nausea and vomiting #History of gastric ulcers #A-fib with RVR #Diabetes mellitus type II -Management deferred to primary hospitalist team Quality - progress note Quality Measures Quality Measures: VTE prophylaxis Reason for Continued Stay Reason for Continued Stay: further monitoring
--- NOTE | 2024-07-20 15:14 | PC.DIETICIAN ---
Nutrition prescription 1) PPN standard @ 50: start PPN D5% AA 4.25% at 30ml/hr x8hrs, then 50ml/hr goal rate to provide with 500ml 20% IL 3x/week to provide: 1200ml total vol, 837total kcal, 50g AA, 60g dextrose, 100gm iv fat emulsion, GIR 1.9, LIR 0.7. 2) Daily labs for P, K, and Mg; replace as needed. 3) Daily weights while on PPN.
--- NOTE | 2024-07-20 15:29 | ESPR_ITS ---
Documentation for date of: 07/20/24 Subjective Subjective Interval history: Patient seen at bedside. No acute overnight events. Scheduled to have nuclear medicine gastric emptying scan today, procedure was unable to be done as patient vomited the isotope and no imaging was obtained. We followed up with CT abdomen which showed findings are consistent with gastric ulcer/localized perforation and severe gastritis. General surgeon Dr. Santana consulted, will evaluate the patient. In the interim, we will start the patient on PPN and get consent for likely TPN. Will continue levofloxacin for 1 more day and discontinue tomorrow. Also DC dialysis catheter, consent obtained from family. Exam Vital Signs Temp Pulse Resp BP Pulse Ox O2 Del Method 96.7 F L 89 24 H 145/88 H 97 Room Air 07/20/24 12:00 07/20/24 14:21 07/20/24 12:00 07/20/24 14:21 07/20/24 12:00 07/20/24 12:00 Narrative Exam GENERAL: AAOX3, lethargic NEURO: WIRELESS COMMUNICATIONS ENGINEER grossly intact, moves extremities x4 HEENT: Moist mucosa. Eyes open, symmetrical, & clear CARDIO: No chest pain on palpation. Heart RRR, no obvious murmurs PULM: No noted coughing/dyspnea. Lungs CTA B/L GI: Abdomen soft, nondistended, no pain on palpation. BSx4 URO/FLOOR COVERER APPRENTICE:: No further abnormalities noted. SKIN/MSK/EXT: Trace pedal edema, likely dependent Objective Labs 07/21/24 04:36 07/21/24 04:36 Labs: Laboratory Results - last 24 hr 07/20/24 07/20/24 04:59 09:34 WBC 8.0 RBC 4.03 Hgb 10.5 L Hct 33.4 L MCV 83 MCH 26.1 MCHC 31.4 RDW Std Deviation 60.9 H Plt Count 230 Neut % (Auto) 52 Lymph % (Auto) 34 Clinch % (Auto) 11 Eos % (Auto) 1 Baso % (Auto) 1 Neut # (Auto) 4.2 Lymph # (Auto) 2.7 Clinch # (Auto) 0.9 H Eos # (Auto) 0.0 Baso # (Auto) 0.1 Immature Gran # (Auto) 0.12 H Absolute Nucleated RBC 0.00 Immature Gran % 2 H Nucleated RBC % 0 PT 14.5 H INR 1.4 H APTT 29.9 Sodium 137 Potassium 3.7 Chloride 107 Carbon Dioxide 18.1 L Anion Gap 12 BUN 10 Creatinine 0.8 Estim Creat Clear Calc 56.9 L eGFR > 60 BUN/Creatinine Ratio 13 Glucose 93 Calculated Osmolality 272 L Calcium 8.4 Corrected Calcium 9.8 Phosphorus 2.8 Magnesium 1.9 Total Bilirubin 0.6 AST 31 ALT 17 Alkaline Phosphatase 94 Total Protein 4.6 L Albumin 2.3 L Globulin 2.3 Albumin/Globulin Ratio 1.0 L Quality Measures Quality Measures VTE prophylaxis Advance care planning discussed with:: child Assessment & Plan Assessment Current Active Medications: Generic Name Dose Route Start Last Admin Trade Name Freq PRN Reason Stop Dose Admin Acetaminophen 650 mg 07/12/24 20:33 07/18/24 10:34 Acetaminophen 325 Mg Tablet PO 08/11/24 20:32 650 mg Q6H PRN Administration Fever >101.5 Al Hydrox/Mg Hydrox/Simethicone 30 ml 07/12/24 20:51 Mg Hyd/Al Hyd/Ronald (Maalox Reg) Susp 30 Ml Udc PO 08/11/24 20:50 QID PRN UPSET STOMACH/INDIGESTION Albuterol/Ipratropium 3 ml 07/20/24 00:09 07/20/24 00:37 Albuterol/Ipratropium (Duoneb) Rt Jimena 3 Ml Nebu INH 08/19/24 00:08 3 ml Q6HRRT PRN Administration SHORTNESS OF BREATH OR WHEEZE Amiodarone HCl 200 mg 07/12/24 21:00 07/20/24 09:56 Amiodarone Hcl 200 Mg Tablet PO 08/11/24 20:59 Not Given BID ANGELICA Apixaban 5 mg 07/13/24 09:00 07/16/24 10:17 Apixaban 2.5 Mg Tablet PO 08/12/24 08:59 Not Given BID ANGELICA Dextrose 50 ml 07/12/24 21:11 07/18/24 17:21 Dextrose 50%-Water Inj 50 Ml Syringe IV 08/11/24 21:10 50 ml Q15MIN PRN Administration BG <50 OR BG <70 & pt unresponsive Dronabinol 10 mg 07/13/24 07:30 07/20/24 07:34 Dronabinol 2.5 Mg Capsule PO 08/12/24 07:29 Not Given BIDAC ANGELICA Glucagon 1 mg 07/12/24 21:11 Glucagon Inj 1 Mg Vial IM Q15MIN PRN BG <70, and no IV access Levofloxacin/Dextrose 250 mg in 50 mls @ 50 mls/hr 07/16/24 09:00 07/20/24 10:00 Levaquin Ivpb IV 07/23/24 08:59 50 mls/hr QDAY ANGELICA Administration Insulin Glargine 12 unit 07/13/24 09:00 07/14/24 08:52 Insulin Glargine (Lantus) 5 Unit/0.05 Ml (Per 5 Units) SC 08/12/24 08:59 Not Given QDAY ANGELICA Insulin Human Lispro 0 unit 07/20/24 06:00 07/20/24 12:00 Insulin Lispro (Admelog) 1 Unit/0.01 Ml Unit SC 08/19/24 05:59 Not Given Q6HR [facility] Protocol Melatonin 6 mg 07/19/24 21:00 07/19/24 21:16 Melatonin 3 Mg Tablet PO 08/18/24 20:59 6 mg HS ANGELICA Administration Metoprolol Succinate 25 mg 07/13/24 09:00 07/20/24 09:56 Metoprolol Succinate Xl 25 Mg Tabcr PO 08/12/24 08:59 Not Given QDAY [facility] Midodrine 5 mg 07/12/24 22:00 07/20/24 14:21 Midodrine 5 Mg Tablet PO 08/11/24 21:59 Not Given TID [facility] Ondansetron HCl 4 mg 07/12/24 20:33 07/17/24 11:02 Ondansetron Inj 2 Mg/Ml Inj 2 Ml IV 08/11/24 20:32 4 mg Q6H PRN Administration NAUSEA OR VOMITING Protocol Pantoprazole Sodium 40 mg 07/13/24 09:30 07/20/24 10:00 Pantoprazole Inj 40 Mg Vial IVP 08/12/24 09:29 40 mg BID ANGELICA Administration Sennosides 1 tab 07/12/24 20:44 Senna Tablet PO 08/11/24 20:43 QDAY PRN CONSTIPATION Protocol Sucralfate 1 gm 07/13/24 11:30 07/20/24 11:30 Sucralfate Susp 1 Gm/10 Ml Udc PO 08/12/24 11:29 Not Given AC [facility] Plan Summary: The patient is a 69-year-old female with past medical history of diabetes mellitus, hypertension, atrial fibrillation on Eliquis, end-stage renal disease on hemodialysis (MWF), history of gastric ulcers, recent hospitalization [facility] for perforated gastric ulcer status post exploratory laparotomy complicated by recurrent abdominal and pelvic abscesses who presented from rehab with a chief complaint of vomiting. Patient admitted to hospital for further workup for dysphagia poor p.o. intake and possible intervention for adequate nutrition. #Failure to thrive. #Nausea and vomiting. #History of gastric ulcers. #Severe gastritis, unspecified. #?Gastric perforation Per patient's daughter on biomedical repair technician of group home home patient has significantly poor p.o. intake, takes only 2-3 bites, unable to maintain a normal appetite. Patient does complain of mild epigastric pain, patient does have history of gastric ulcers recently was admitted to hospital for complicated perforated gastric ulcer. Patient is able to take a few bites but GI Dr. Christianson was consulted, will possibly plan patient for PEG tube if family consents. 07/16/2024- Per nurse this morning, the patient had 1 episode of vomiting after she tried to give her some juice due to hypoglycemia. Labs were reviewed and potassium was attempted to be repleted, but patient had another episode of vomiting. Family still wanting to hold off on PEG tube placement, will touch base with them again as patient is unable to tolerate oral intake at this time 07/17/2024: Pt continues to have nausea with eating, including taking pills. Pt and family will have to make decision with goals of care including PEG tube at this time. 07/19/2024: Patient's family still keeping PEG tube on hold. She was scheduled to have nuclear medicine gastric emptying scan yesterday, however was scheduled for today. Patient is reported to have vomited this morning and has been rescheduled for tomorrow. 07/20/2024- Scheduled to have nuclear medicine gastric emptying scan today, procedure was unable to be done as patient vomited the isotope and no imaging was obtained. We followed up with CT abdomen which showed findings are consistent with gastric ulcer/localized perforation and severe gastritis. General surgeon Dr. Santana consulted, will evaluate the patient. In the interim, we will start the patient on PPN and get consent for likely TPN Plan: ? GI consulted, appreciate recommendations. - DC Mirtazapine ? Protonix 40mg BID. ? Maalox as needed. ? Patient on dronabinol - General surgery consulted, appreciate recommendations #Hx of afib with RVR, rate controlled. Patient was noted to be in A-fib with RVR in ED, was given diltiazem 20 IV x 1, plan was to start patient on diltiazem drip. Patient's heart rate fluctuating in 90s to 110, no rapid ventricular response noted. Patient does have a history of atrial fibrillation, currently on amiodarone 200 twice daily, metoprolol succinate 25 p.o. daily and Eliquis 5 mg twice daily. Patient's last echo 05/16/2024 shows normal LV size and function, EF 55 to 60%, mild LVH stage I diastolic dysfunction. 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 Mild AV Sclerosis without stenosis. Plan: ? Resumed home dose amiodarone 200 twice daily, metoprolol succinate 25 mg p.o. daily. ? Eliquis on hold. ? Telemonitoring. #Diabetes mellitus. Patient has history of diabetes mellitus, last hemoglobin A1c was 6.3. Plan: ? Sliding scale insulin. ? Resumed home dose Lantus 12 units daily. ? Fingerstick blood glucose, blood glucose goal 140-180. ? Hypoglycemia protocol. #ADILSON on hemodialysis MWF-resolved Patient received dialysis treatment yesterday, reports of allergic rash postdialysis. Received Benadryl BUN and creatinine within normal limits. Patient is now off dialysis Plan: - Dialysis discontinued ? Resume home dose midodrine. Health maintenance: DVT prophylaxis: Lovenox GI prophylaxis: IV Protonix Diet: Dysphagia 3 plus Nepro Lines: Peripheral IV Code status: DNR/DNI Case was discussed with Dr Robertson PGY-2 and attending physician, Dr Curry Disclaimer: This note was dictated by speech recognition. Minor errors in information technology instructor may be present due to voice recognition software. LPatient examined and case discussed with the team including attending physician. Note reviewed, I agree with the care plan as documented. Plan: CT abdomen shows possible gastric perforation. GI following. General surgery Dr Santana consulted for further recommendations, will evaluate patient in the am. Strict NPO ordered, PPn will be started on 6 pm as per dietary recommendations. We will continue to monitor closely. Family updated. - Bharath Robertson MD, PGY 2 L Attending Provider Attestation/Addendum I have examined the patient, reviewed labs and imaging findings, discussed the case with the resident(s), and reviewed entered orders. I agree with the plan of care as outlined in this note, with these additional summaries/recommendations: Patient seen at bedside. No acute overnight events. Patient's daughter at bedside and updated on patient's clinical status. Patient went for gastric emptying study yesterday although was unable to complete as she immediately vomited the isotope and no imaging was able to be obtained. Patient has continued to have close to [address] chest/abdomen was obtained today with findings most consistent with gastric ulcer with localized perforation and severe gastritis. Case was discussed with general surgery and findings possibly related to previous gastric perforation. Patient is currently clinically stable and we will monitor for now. We will follow patient closely and notify surgery of any acute change in hemodynamic status. Patient made n.p.o. again. We will start artificial nutrition. Continue IV Protonix 40 mg twice daily & carafate. Hold home Eliquis for atrial fibrillation. Continue IV levofloxacin for urinary tract infection. Patient given Lasix x 1 for bilateral lower extremity swelling likely secondary to dependent edema. Repeat hematology and chemistry panel in AM. Daughter updated on the plan and in agreement. Dr. Antoinette MD
[2024-07-20 16:10] LABS: Triglycerides 161 mg/dL (30-150)
[2024-07-20] MEDS: ENOXAPARIN SOD INJ 40 MG/0.4 ML SYRINGE SC (16:33)
--- NOTE | 2024-07-20 17:15 | PC.NURSE ---
Pt SOB with wheezes bilaterally. Sp02 94% RA. Notified RT for PRN Duoneb
[2024-07-20] MEDS: MAGNESIUM SULF IV (17:33)
[2024-07-20] MEDS: [UNRECOGNIZED DRUG - OTHER] IV (17:33)
[2024-07-20] MEDS: POTASSIUM ACET IV (17:33)
[2024-07-20] MEDS: POTASSIUM PHOS IV (17:33)
--- NOTE | 2024-07-20 19:22 | ESPR_ITS ---
Documentation for date of: 07/20/24 Subjective Subjective Interval history: Patient evaluated Her abdomen is very soft nontender active bowel sounds The CT scan findings show a localized perforation with edema The clinical picture does not match the CT scan findings Patient already on levofloxacin which I will continue on I do not feel patient has a surgical abdomen but nonetheless we will consult the surgical supplies sterilizer Continue IV antibiotics And keep the patient n.p.o. Met with the family Hold off any invasive procedure Exam Vital Signs Temp Pulse Resp BP Pulse Ox O2 Del Method 98.1 F 110 H 18 137/90 H 100 Room Air 07/20/24 16:00 07/20/24 17:25 07/20/24 17:25 07/20/24 16:00 07/20/24 17:25 07/20/24 16:00 Objective Labs 07/20/24 04:59 07/20/24 04:59 Labs: Laboratory Results - last 24 hr 07/20/24 07/20/24 07/20/24 04:59 09:34 15:20 WBC 8.0 RBC 4.03 Hgb 10.5 L Hct 33.4 L MCV 83 MCH 26.1 MCHC 31.4 RDW Std Deviation 60.9 H Plt Count 230 Neut % (Auto) 52 Lymph % (Auto) 34 Glynn % (Auto) 11 Eos % (Auto) 1 Baso % (Auto) 1 Neut # (Auto) 4.2 Lymph # (Auto) 2.7 Glynn # (Auto) 0.9 H Eos # (Auto) 0.0 Baso # (Auto) 0.1 Immature Gran # (Auto) 0.12 H Absolute Nucleated RBC 0.00 Immature Gran % 2 H Nucleated RBC % 0 PT 14.5 H INR 1.4 H APTT 29.9 Sodium 137 Potassium 3.7 Chloride 107 Carbon Dioxide 18.1 L Anion Gap 12 BUN 10 Creatinine 0.8 Estim Creat Clear Calc 56.9 L eGFR > 60 BUN/Creatinine Ratio 13 Glucose 93 Calculated Osmolality 272 L Calcium 8.4 Corrected Calcium 9.8 Phosphorus 2.8 Magnesium 1.9 Total Bilirubin 0.6 AST 31 ALT 17 Alkaline Phosphatase 94 Total Protein 4.6 L Albumin 2.3 L Globulin 2.3 Albumin/Globulin Ratio 1.0 L Triglycerides 161 H Impressions Impression: # Gastric ulcer No clinical evidence of acute abdomen Continue conservative management Recommend surgery Assessment & Plan A&P Narrative # Failure to thrive Plan Case discussed in detail with the ER physician Difficult to put a PEG tube for further management of failure to thrive however will discuss with the family And attempt should be made if they agree To sustain appropriate nutrition for the patient by placement of a PEG tube Other medical problems include 1 end-stage renal disease hemodialysis MWF 2 chronic A-fib on Eliquis 3 status post exploratory laparotomy for perforated gastric ulcer Ramsey's patch and drainage of the subphrenic abscesses by IR drainage Thank you very much for the opportunity to participate in care of this patient Time Spent With Patient Time: Total time spent is greater than 50% in coordination of care (as documented) at patient's floor/unit and/or counseling patient:
[2024-07-20] MEDS: AMIODARONE HCL 200 MG TABLET PO (21:04)
[2024-07-20] MEDS: MELATONIN 3 MG TABLET 6 MG PO (21:04)
[2024-07-21] VITALS (19 sets, daily range): BP systolic 106–146; BP diastolic 64–98; PULSE 90–128; RESP 14–25; TEMP 36.1–36.7; O2SAT 95–100; BMI 12.0
[2024-07-21] MEDS: ALBUTEROL/IPRATROPIUM (Duoneb) RT SOL 3 ML NEBU INH (03:50)
[2024-07-21 05:04] LABS: Basophils # (Auto) 0.1 Thou/mm3 (0.0-0.2); Basophils % (Auto) 1 % (0-2.5); Eosinophils # (Auto) 0.1 Thou/mm3 (0.0-0.5); Eosinophils % (Auto) 1 % (0-10); Hematocrit 32.9 % (36.0-46.0); Hemoglobin 10.2 g/dL (12.0-16.0); Immature Granulocytes % (Auto) 2 % (0-0); Immature Granulocytes Auto 0.13 Thou/mm3 (0.00-0.00); Lymphocytes # (Auto) 3.9 Thou/mm3 (1.0-4.8); Lymphocytes % (Auto) 49 % (10-50); Mean Corpuscular Volume 84 fL (80-100); Monocytes % (Auto) 13 % (0-12); Neutrophils # (Auto) 2.8 Thou/mm3 (1.8-7.7); Neutrophils % (Auto) 35 % (37-80); Nucleated Red Blood Cell % 0 /100 WBC (0); Platelet Count 268 Thou/mm3 (140-440); RDW Standard Deviation 62.2 fL (36.4-46.3); Red Blood Count 3.93 Miln/mm3 (4.00-5.20); White Blood Count 7.9 Thou/mm3 (3.6-11.0)
[2024-07-21 05:29] LABS: Alanine Aminotransferase 15 U/L (10-49); Albumin, Serum 2.3 gm/dL (3.4-4.8); Alkaline Phosphatase 101 U/L (46-116); Anion Gap 9 (7-16); Aspartate Amino Transferase 19 U/L (0-34); BUN/Creatinine Ratio 14 Ratio (12-20); Bilirubin,Total 0.7 mg/dL (0.3-1.2); Blood Urea Nitrogen 13 mg/dL (9-23); Calcium 8.4 mg/dL (8.3-10.6); Calcium (Corrected) 9.8 mg/dL (8.5-10.1); Carbon Dioxide 24.1 mMol/L (20.0-31.0); Chloride 106 mMol/L (98-107); Creatinine (Component) 0.9 mg/dL (0.6-1.3); Globulin 2.3 gm/dL (2.3-3.5); Glucose 108 mg/dL (74-106); Magnesium 1.8 mg/dL (1.6-2.6); Osmolality,Calculated 278 (275-295); Phosphorous 2.3 mg/dL (2.4-5.1); Potassium 3.6 mMol/L (3.4-5.1); Sodium 139 mMol/L (136-145); Total Protein 4.6 gm/dL (5.7-8.2); eGFR > 60 See Note
[2024-07-21] MEDS: droNABinol 2.5 MG CAPSULE 10 MG PO ×2 (08:36→17:04)
[2024-07-21] MEDS: SUCRALFATE SUSP 1 GM/10 ML UDC PO ×2 (08:36→17:04)
[2024-07-21] MEDS: METOPROLOL SUCCINATE XL 25 MG TABCR PO (08:37)
[2024-07-21] MEDS: AMIODARONE HCL 200 MG TABLET PO ×2 (08:37→21:55)
[2024-07-21] MEDS: ALBUMIN HUMAN 25% IVPB 25 GM/100 ML BTL IV ×2 (08:37→21:55)
[2024-07-21] MEDS: ENOXAPARIN SOD INJ 40 MG/0.4 ML SYRINGE SC (08:38)
[2024-07-21] MEDS: FUROSEMIDE INJ 10 MG/ML VIAL 2 ML 20 MG IVP (08:38)
[2024-07-21] MEDS: PANTOPRAZOLE INJ 40 MG VIAL IVP ×2 (08:39→21:54)
[2024-07-21] MEDS: LEVOFLOXACIN/D5W 250MG IVPB 250 MG/50 ML BAG 50 MG IV (08:39)
--- NOTE | 2024-07-21 09:10 | PD.NEPHPROG ---
Documentation for date of: 07/21/24 Subjective Subjective Interval history: patient is a 69-year-old female with significant past medical history of diabetes mellitus, hypertension, A-fib on Eliquis, ADILSON on hemodialysis, history of gastric ulcers, recent hospitalization in [facility] for perforated gastric ulcer s/p exploratory laparotomy complicated by recurrent abdominal and pelvic abscesses presented from rehab with chief complaint of vomiting. Vomiting is further aggravated by trying to eat, as after taking 2-3 bites she starts vomiting. Denies any fever or chills, headache, chest pain, abdominal pain, any leg swelling. The last hemodialysis and was 1 day ago. During our evaluation, her vitals were stable with soft blood pressure, saturating 92 to 95% on room air. Labs are significant for white count 13.6, hemoglobin 11.8, sodium 139, potassium 4.4, BUN 35, creatinine 1.8, GFR 40, A1c 4.9, corrected calcium 10.2. UA revealed turbid urine, protein 1+, bilirubin 1+, leukocyte esterase positive, WBC 84, bacteria 3+. Chest x-ray significant for mild heart failure pattern. Abdomen/pelvis CT significant for severe gastritis pattern, hyperdense gallbladder with possible pancreatitis. 07/14/2024: The patient was interviewed and examined at the bedside this morning. She reported doing okay. Her vitals were stable with mild tachycardia with heart rate 115. CBC fairly at baseline, chemistry panel revealed sodium 140, potassium 4.3, BUN 38, creatinine 1.7, GFR 32 and corrected calcium 10.2. We will continue to hold off on hemodialysis, and continue to monitor renal panel. 07/15/2024: The patient was interviewed and examined at the bedside this morning along with her son. She reported doing well. She denied any headache, chest pain or SOB, or any leg swelling. Her vitals were fairly stable. CBC at baseline, sodium 141, potassium 3.6, BUN 32, creatinine improving to 1.4, GFR 41, corrected calcium 10.2. We will hold off on hemodialysis, and continue to monitor renal panel. 07/17/2024 doing faily ok. Appetite still low. CR 1.2 Blood sugar 83. Blood pressure 116/89, heart rate 111. Hemoglobin 10.8. Sodium 142, potassium 3, BUN 17, creatinine 1.0, LFTs normal, phosphorus 2.1, magnesium 1.8, albumin 2.4, vitamin D72.9, PTH 66.7 dc dialysis cath in am 07/18/2024 patient currently seen in medical floor. Resting comfortably. LFTs normal. Albumin 2.5. Creatinine markedly improved to 1.0. Potassium 3.2.Patient and family refusing feeding tube. Patient came off dialysis. Pending catheter removal. 07/19/2024 patient currently seen in medical floor. In contact isolation room. Still did not get the dialysis catheter removed. Hopefully can be done today. Replaced all electrolytes. Patient came off dialysis. Appetite still remains poor. Noted family did not want feeding tube. Hemoglobin 10.8, platelets 222. Sodium 138, potassium 3.4, creatinine 0.8, calcium 9.6, phosphorus 1.6, magnesium 1.6, LFTs normal, albumin 2.3, PTH 66.7 07/20/2024 patient currently seen in medical floor. In contact isolation room. Still did not get the dialysis catheter removed. Apparently daughter wanted to hold off for dialysis catheter removal due to edema. Tried to reach the daughter but could not today. Will retry tomorrow. Labs showed creatinine 0.8. Albumin significantly low could be causing third spacing. 07/21/2024 Long conversation with the daughter at bedside-patient needs to have aggressive physical therapy and needs to improve nutritional support. Albumin is extremely low causing third spacing and edema. Added a low-dose diuretic with albumin. She consented for dialysis catheter removal which is a source of infection. Review of Systems Review of Systems Narrative Review of Systems: No cp, sob. No nausea, vomiting Denies any urinary symptoms of burning or frequency. Patient has a diaper pad Decreased appetite. Patient feeling very fatigued and tired ++ edema Exam Vital Signs Temp Pulse Resp BP Pulse Ox O2 Del Method O2 Flow Rate 36.1 C 128 H 19 136/78 H 97 Nasal Cannula 2 07/21/24 08:00 07/21/24 08:38 07/21/24 08:00 07/21/24 08:38 07/21/24 08:00 07/21/24 08:00 07/21/24 08:00 Narrative Exam General: No acute distress, Alert and Oriented x 3 HEENT: Moist mucous membranes, oropharynx clear Neck: Supple, No masses, No JVD CVS: S1S2 Regular rate and rhythm, No murmurs, rubs or gallops Lungs: Clear to auscultation with no accessory use, no wheeze no rhonchi + IJ cath Abd: Soft, NT/ND, +BS, no organomegaly Ext: 2+ edema in the lower extremities Skin: No rash Psych: Seems to be sad Objective Labs 07/22/24 06:38 07/22/24 06:38 Labs: Laboratory Results - last 24 hr 07/20/24 07/20/24 07/21/24 09:34 15:20 04:36 WBC 7.9 RBC 3.93 L Hgb 10.2 L Hct 32.9 L MCV 84 MCH 26.0 MCHC 31.0 RDW Std Deviation 62.2 H Plt Count 268 D Neut % (Auto) 35 L Lymph % (Auto) 49 Rock % (Auto) 13 H Eos % (Auto) 1 Baso % (Auto) 1 Neut # (Auto) 2.8 Lymph # (Auto) 3.9 Rock # (Auto) 1.0 H Eos # (Auto) 0.1 Baso # (Auto) 0.1 Immature Gran # (Auto) 0.13 H Absolute Nucleated RBC 0.00 Immature Gran % 2 H Nucleated RBC % 0 PT 14.5 H INR 1.4 H APTT 29.9 Sodium 139 Potassium 3.6 Chloride 106 Carbon Dioxide 24.1 Anion Gap 9 BUN 13 Creatinine 0.9 Estim Creat Clear Calc 48.0 L eGFR > 60 BUN/Creatinine Ratio 14 Glucose 108 H Calculated Osmolality 278 Calcium 8.4 Corrected Calcium 9.8 Phosphorus 2.3 L Magnesium 1.8 Total Bilirubin 0.7 AST 19 ALT 15 Alkaline Phosphatase 101 Total Protein 4.6 L Albumin 2.3 L Globulin 2.3 Albumin/Globulin Ratio 1.0 L Triglycerides 161 H Assessment & Plan Additional Assessment & Plan Additional Plan: patient is a 69-year-old female with significant past medical history of diabetes mellitus, hypertension, A-fib on Eliquis, ADILSON on hemodialysis MWF, history of gastric ulcers, recent hospitalization in [facility] for perforated gastric ulcer s/p exploratory laparotomy complicated by recurrent abdominal and pelvic abscesses presented from rehab with chief complaint of vomiting. Nephrology consultation was done for further management of ADILSON on hemodialysis. #ADILSON -- was on hemodialysis MWF, improving Patient had ATN while she was admitted to ICU for soft blood pressure on 05/14/2024. Later she was started on hemodialysis for volume overload and oliguria. Presented with BUN 29, creatinine 1.8 and GFR 30, but within the last 3 months or GFR was worsened, gradually has been improving. 07/21/2024 creatinine 0.8-will DC dialysis catheter. Daughter agreed. -Avoid nephrotoxic drugs -Renal dose modifications proceed with Lasix/albumin to improve edema. replace potassium, phosphorus -Daily a.m. renal panel #Mild hypercalcemia Likely secondary to immobilization and possible dehydration in the setting of poor oral intake, nausea and vomiting further complicated by aggressive ultrafiltration during hemodialysis -Encouraged oral rehydration Better -Monitor calcium level daily in the a.m. #Gastritis #Dysphagia #Intractable nausea and vomiting #History of gastric ulcers #A-fib with RVR #Diabetes mellitus type II -Management deferred to primary hospitalist team Quality - progress note Quality Measures Quality Measures: VTE prophylaxis Reason for Continued Stay Reason for Continued Stay: further monitoring
--- NOTE | 2024-07-21 09:25 | XR_ITS ---
Examination: IR venous assess removal permanent left internal jugular tunneled dialysis catheter Fluoroscopy AP chest 2 views Exam date and time: July 21, 2024 0921 hours INDICATIONS: Restored kidney function no longer needed for dialysis TECHNIQUE AND FINDINGS: Informed consent provided. Timeout performed. Skin prepped over the entrance site of the internal jugular dialysis catheter sterile drape maximum barrier sterile technique hand hygiene 1% lidocaine administered for local anesthesia Careful dissection around a permanent tunneled dialysis catheter was successful removal Estimated blood loss 2 cc Fluoroscopy 0.1 minute radiation dose 1.00 milligray 2 spot fluoroscopic chest films IMPRESSION: Successful IR venous access removal permanent internal jugular tunneled dialysis catheter
--- NOTE | 2024-07-21 10:31 | PC.SS ---
Addendum entered by Genet Andrews 07/21/24 11:20: SS spoke to [facility] and they will deliver a manual wheelchair to bedside. They are aware patient will not d/c home today. Original Note: Follow up note: SS spoke to Debbie Castellanos, daughter, re: final d/c plans. Daughter states they spoke as a family and decided upon taking patient home. Patient will reside in [place] and family will rotate care with her. Daughter states all they need is a wheelchair for home. They also want home health services. D/c address: [address], [address] [facility] [address]
--- NOTE | 2024-07-21 10:33 | PC.SS ---
Patient needs a manual standard wheelchair for home. The patient and her family are requesting a wheel chair. Patients diagnosis creates mobility limitations that significantly impairs ability to participate in the patient?s activities of daily living either in their entirety or in a reasonable timeframe in the home and the patient?s mobility limitations cannot be sufficiently resolved with an appropriately fitted cane or walker. Also, the use of a manual wheelchair will sufficiently improve patients ability to participate in the activities of daily living in the home and the patient is willing to use the wheelchair that is provided in the home. The patient has some one in the home that is available, willing and able to provide assistance with the wheelchair.
--- NOTE | 2024-07-21 10:43 | PD.SURPROG ---
Documentation for date of: 07/21/24 Subjective Subjective Narrative: Pt underwent CT yesterday read as possible localized gastric perforation with marked edema, however has remained hemodynamically normal (aside from atrial fibrillation) without fever and this morning denies pain. Her WBC remains normal and she was started on PPN yesterday, noted by RD to have decrease in Phos Exam Vital Signs Temp Pulse Resp BP Pulse Ox O2 Del Method O2 Flow Rate 97.0 F 128 H 19 136/78 H 97 Nasal Cannula 2 07/21/24 08:00 07/21/24 08:38 07/21/24 08:00 07/21/24 08:38 07/21/24 08:00 07/21/24 08:00 07/21/24 08:00 Constitutional Constitutional: no acute distress Routine Respiratory Exam Respiratory: Present no resp distress Routine Abdominal Exam Abdominal: Present soft and wound (midline wound well-healed with no erythema, fluctuance or tenderness); Absent tenderness or distended Results Results: Laboratory Laboratory results: results reviewed Results: Imaging CT scan - abdomen: report reviewed and image reviewed Assessment & Plan Plan 69F with atrial fibrillation, CHF, peptic ulcer s/p laparotomy for repair of perforated peptic ulcer 05/14, with poor appetite since then remaining hospitalized due to need for nutrition. I spoke to pt's daughter and son today about the possibility of post-pyloric feeding with a naso-duodenal/nasojejunal tube, they expressed understanding and would like to proceed if possible
--- NOTE | 2024-07-21 12:20 | PC.NURSE ---
patient alert. transferred to room via gurney. hand off report given to evelio nova. Evelio and I assess dressing. dressing is clean dry and intact
[2024-07-21] MEDS: THIAMINE INJ 100 MG/ML VIAL 2 ML IVP (12:36)
--- NOTE | 2024-07-21 13:55 | PD.RESPRO ---
Documentation for date of: 07/21/24 Subjective Subjective Interval history: Patient seen at bedside. No acute overnight events. Still has minimal oral intake. She was evaluated by surgeon Dr. Santana this morning who recommends postpyloric feeding with nasoduodenal/nasojejunal tube and family is agreeable. Will consult IR/GI for possible placement. Otherwise, she is still on PPN and clinical condition has remained stable. Dialysis catheter removed. IV Lasix 20 mg added for bilateral pitting edema, albumin also added. Will continue IV levofloxacin for ESBL UTI treatment. Exam Vital Signs Temp Pulse Resp BP Pulse Ox O2 Del Method O2 Flow Rate 97.3 F 118 H 18 146/96 H 100 Room Air 3 07/21/24 12:00 07/21/24 12:00 07/21/24 12:00 07/21/24 12:00 07/21/24 12:00 07/21/24 12:00 07/21/24 11:55 Narrative Exam GENERAL: AAOX3, little lethargic NEURO: FOREIGN EXCHANGE DEALER grossly intact, moves extremities x4 HEENT: Moist mucosa. Eyes open, symmetrical, & clear CARDIO: No chest pain on palpation. Heart RRR, no obvious murmurs PULM: No noted coughing/dyspnea. Lungs CTA B/L GI: Abdomen soft, nondistended, no pain on palpation. BSx4 URO/DIRECTOR OF TRAUMA:: No further abnormalities noted. SKIN/MSK/EXT: Bilateral pitting edema 1+ Objective Labs 07/22/24 06:38 07/22/24 06:38 Labs: Laboratory Results - last 24 hr 07/20/24 07/21/24 15:20 04:36 WBC 7.9 RBC 3.93 L Hgb 10.2 L Hct 32.9 L MCV 84 MCH 26.0 MCHC 31.0 RDW Std Deviation 62.2 H Plt Count 268 D Neut % (Auto) 35 L Lymph % (Auto) 49 [place] % (Auto) 13 H Eos % (Auto) 1 Baso % (Auto) 1 Neut # (Auto) 2.8 Lymph # (Auto) 3.9 [place] # (Auto) 1.0 H Eos # (Auto) 0.1 Baso # (Auto) 0.1 Immature Gran # (Auto) 0.13 H Absolute Nucleated RBC 0.00 Immature Gran % 2 H Nucleated RBC % 0 Sodium 139 Potassium 3.6 Chloride 106 Carbon Dioxide 24.1 Anion Gap 9 BUN 13 Creatinine 0.9 Estim Creat Clear Calc 48.0 L eGFR > 60 BUN/Creatinine Ratio 14 Glucose 108 H Calculated Osmolality 278 Calcium 8.4 Corrected Calcium 9.8 Phosphorus 2.3 L Magnesium 1.8 Total Bilirubin 0.7 AST 19 ALT 15 Alkaline Phosphatase 101 Total Protein 4.6 L Albumin 2.3 L Globulin 2.3 Albumin/Globulin Ratio 1.0 L Triglycerides 161 H Quality Measures Quality Measures VTE prophylaxis Advance care planning discussed with:: child Assessment & Plan Assessment Current Active Medications: Generic Name Dose Route Start Last Admin Trade Name Freq PRN Reason Stop Dose Admin Acetaminophen 650 mg 07/12/24 20:33 07/18/24 10:34 Acetaminophen 325 Mg Tablet PO 08/11/24 20:32 650 mg Q6H PRN Administration Fever >101.5 Al Hydrox/Mg Hydrox/Simethicone 30 ml 07/12/24 20:51 Mg Hyd/Al Hyd/Ronald (Maalox Reg) Susp 30 Ml Udc PO 08/11/24 20:50 QID PRN UPSET STOMACH/INDIGESTION Albuterol/Ipratropium 3 ml 07/20/24 00:09 07/21/24 03:50 Albuterol/Ipratropium (Duoneb) Rt Jimena 3 Ml Nebu INH 08/19/24 00:08 3 ml Q6HRRT PRN Administration SHORTNESS OF BREATH OR WHEEZE Amiodarone HCl 200 mg 07/12/24 21:00 07/21/24 08:37 Amiodarone Hcl 200 Mg Tablet PO 08/11/24 20:59 200 mg BID ANGELICA Administration Apixaban 5 mg 07/13/24 09:00 07/16/24 10:17 Apixaban 2.5 Mg Tablet PO 08/12/24 08:59 Not Given BID ANGELICA Dextrose 50 ml 07/12/24 21:11 07/18/24 17:21 Dextrose 50%-Water Inj 50 Ml Syringe IV 08/11/24 21:10 50 ml Q15MIN PRN Administration BG <50 OR BG <70 & pt unresponsive Dronabinol 10 mg 07/13/24 07:30 07/21/24 08:36 Dronabinol 2.5 Mg Capsule PO 08/12/24 07:29 10 mg BIDAC ANGELICA Administration Enoxaparin Sodium 40 mg 07/20/24 15:45 07/21/24 08:38 Enoxaparin Sod Inj 40 Mg/0.4 Ml Syringe SC 08/03/24 15:44 40 mg QDAY ANGELICA Administration Furosemide 20 mg 07/21/24 09:00 07/21/24 08:38 Furosemide Inj 10 Mg/Ml Vial 2 Ml IVP 08/20/24 08:59 20 mg QDAY ANGELICA Administration Glucagon 1 mg 07/12/24 21:11 Glucagon Inj 1 Mg Vial IM Q15MIN PRN BG <70, and no IV access Levofloxacin/Dextrose 250 mg in 50 mls @ 50 mls/hr 07/16/24 09:00 07/21/24 08:39 Levaquin Ivpb IV 07/23/24 08:59 50 mls/hr QDAY ANGELICA Administration Potassium Acetate 40 meq/ 1,028 mls @ 30 mls/hr 07/20/24 18:00 07/21/24 02:29 Potassium Phosphate 9 mmol/ IV 07/21/24 17:59 50 mls/hr Magnesium Sulfate 2 gm/ QDAY@1800 ANGELICA Infusion Thiamine HCl 100 mg/ Amino Acids Fat Emulsion Intravenous 500 mls @ 32 mls/hr 07/21/24 18:00 Intralipid 20% Iv IV 08/20/24 17:59 MoWeFr@1800 ANGELICA Albumin Human 25 gm in 100 mls @ 100 mls/hr 07/21/24 09:00 07/21/24 08:37 Albuminar-25 Ivpb IV 07/24/24 08:59 100 mls/hr BID ANGELICA Administration Potassium Chloride 40 meq/ 1,040 mls @ 50 mls/hr 07/21/24 18:00 Potassium Phosphate 15 mmol/ IV 07/22/24 14:47 Magnesium Sulfate 2 gm/ .[id number] [facility] Multivitamins/Minerals 10 ml/ Thiamine HCl 100 mg/ Amino Acids Insulin Glargine 12 unit 07/13/24 09:00 07/14/24 08:52 Insulin Glargine (Lantus) 5 Unit/0.05 Ml (Per 5 Units) SC 08/12/24 08:59 Not Given QDAY [facility] Insulin Human Lispro 0 unit 07/20/24 06:00 07/21/24 12:33 Insulin Lispro (Admelog) 1 Unit/0.01 Ml Unit SC 08/19/24 05:59 Not Given Q6HR ANGELICA Protocol Melatonin 6 mg 07/19/24 21:00 07/20/24 21:04 Melatonin 3 Mg Tablet PO 08/18/24 20:59 6 mg HS ANGELICA Administration Metoprolol Succinate 25 mg 07/13/24 09:00 07/21/24 08:37 Metoprolol Succinate Xl 25 Mg Tabcr PO 08/12/24 08:59 25 mg QDAY ANGELICA Administration Midodrine 5 mg 07/12/24 22:00 07/21/24 05:55 Midodrine 5 Mg Tablet PO 08/11/24 21:59 Not Given TID ANGELICA Ondansetron HCl 4 mg 07/12/24 20:33 07/17/24 11:02 Ondansetron Inj 2 Mg/Ml Inj 2 Ml IV 08/11/24 20:32 4 mg Q6H PRN Administration NAUSEA OR VOMITING Protocol Pantoprazole Sodium 40 mg 07/13/24 09:30 07/21/24 08:39 Pantoprazole Inj 40 Mg Vial IVP 08/12/24 09:29 40 mg BID ANGELICA Administration Pharmacy Consult 1 each 07/20/24 15:56 Pha To Consult Parenteral Nutr 1 Each Each XX 08/19/24 15:55 PRN PRN CONSULT Sennosides 1 tab 07/12/24 20:44 Senna Tablet PO 08/11/24 20:43 QDAY PRN CONSTIPATION Protocol Sucralfate 1 gm 07/13/24 11:30 07/21/24 12:28 Sucralfate Susp 1 Gm/10 Ml Udc PO 08/12/24 11:29 Not Given AC ANGELICA Thiamine HCl 100 mg 07/21/24 11:30 07/21/24 12:36 Thiamine Inj 100 Mg/Ml Vial 2 Ml IVP 07/27/24 11:29 100 mg QDAY ANGELICA Administration Plan Summary: The patient is a 69-year-old female with past medical history of diabetes mellitus, hypertension, atrial fibrillation on Eliquis, end-stage renal disease on hemodialysis (MWF), history of gastric ulcers, recent hospitalization [facility] for perforated gastric ulcer status post exploratory laparotomy complicated by recurrent abdominal and pelvic abscesses who presented from rehab with a chief complaint of vomiting. Patient admitted to hospital for further workup for dysphagia poor p.o. intake and possible intervention for adequate nutrition. #Failure to thrive. #Nausea and vomiting. #History of gastric ulcers. #Severe gastritis, unspecified. #?Gastric perforation Per patient's daughter on biomedical instrument technician of half-way home patient has significantly poor p.o. intake, takes only 2-3 bites, unable to maintain a normal appetite. Patient does complain of mild epigastric pain, patient does have history of gastric ulcers recently was admitted to hospital for complicated perforated gastric ulcer. Patient is able to take a few bites but GI Dr. Christianson was consulted, will possibly plan patient for PEG tube if family consents. 07/16/2024- Per nurse this morning, the patient had 1 episode of vomiting after she tried to give her some juice due to hypoglycemia. Labs were reviewed and potassium was attempted to be repleted, but patient had another episode of vomiting. Family still wanting to hold off on PEG tube placement, will touch base with them again as patient is unable to tolerate oral intake at this time 07/17/2024: Pt continues to have nausea with eating, including taking pills. Pt and family will have to make decision with goals of care including PEG tube at this time. 07/19/2024: Patient's family still keeping PEG tube on hold. She was scheduled to have nuclear medicine gastric emptying scan yesterday, however was scheduled for today. Patient is reported to have vomited this morning and has been rescheduled for tomorrow. 07/20/2024- Scheduled to have nuclear medicine gastric emptying scan today, procedure was unable to be done as patient vomited the isotope and no imaging was obtained. We followed up with CT abdomen which showed findings are consistent with gastric ulcer/localized perforation and severe gastritis. General surgeon Dr. Santana consulted, will evaluate the patient. In the interim, we will start the patient on PPN and get consent for likely TPN 07/21/2024- Still has minimal oral intake. She was evaluated by surgeon Dr. Santana this morning who recommends postpyloric feeding with nasoduodenal/nasojejunal tube and family is agreeable. Will consult IR/GI for possible placement. Otherwise, she is still on PPN and clinical condition has remained stable. Plan: ? GI consulted, appreciate recommendations. ? Protonix 40mg BID. ? Maalox as needed. ? Patient on dronabinol - General surgery consulted, appreciate recommendations #ESBL UTI On admission, UA was positive for 3+ bacteria and 84 WBCs. Although the patient had no complaints, she was started on IV ceftriaxone for prophylaxis. Urine culture returned positive for ESBL UTI sensitive to IV levofloxacin. Plan: -Continue IV levofloxacin #Hx of afib with RVR, rate controlled. Patient was noted to be in A-fib with RVR in ED, was given diltiazem 20 IV x 1, plan was to start patient on diltiazem drip. Patient's heart rate fluctuating in 90s to 110, no rapid ventricular response noted. Patient does have a history of atrial fibrillation, currently on amiodarone 200 twice daily, metoprolol succinate 25 p.o. daily and Eliquis 5 mg twice daily. Patient's last echo 05/16/2024 shows normal LV size and function, EF 55 to 60%, mild LVH stage I diastolic dysfunction. 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 Mild AV Sclerosis without stenosis. Plan: ? Resumed home dose amiodarone 200 twice daily, metoprolol succinate 25 mg p.o. daily. ? Eliquis on hold. ? Telemonitoring. #Diabetes mellitus. Patient has history of diabetes mellitus, last hemoglobin A1c was 6.3. Plan: ? Sliding scale insulin. ? Resumed home dose Lantus 12 units daily. ? Fingerstick blood glucose, blood glucose goal 140-180. ? Hypoglycemia protocol. #[facility] on hemodialysis MWF-resolved Patient received dialysis treatment yesterday, reports of allergic rash postdialysis. Received Benadryl BUN and creatinine within normal limits. Patient is now off dialysis Plan: - Dialysis discontinued ? Resume home dose midodrine. Health maintenance: DVT prophylaxis: Lovenox GI prophylaxis: IV Protonix Diet: Dysphagia 3 plus Nepro Lines: Peripheral IV Code status: DNR/DNI Case was discussed with Dr Robertson PGY-2 and attending physician, Dr Antoinette Stanley MD PGY1 Disclaimer: This note was dictated by speech recognition. Minor errors in appeals reviewer veteran may be present due to voice recognition software. Patient examined and case discussed with the team including attending physician. Note reviewed, I agree with the care plan as documented. Patient admitted after gastric surgery, CT abdomen shows possible gastric perforation. GI following, recommend [place] tube. IR consulted, but unable to place a jejunal tube. General surgery Dr Santana consulted for further recommendations, counseled the family. Plan: Continue diet as well as PPN until further recommendations from GI and general surgery. Dr Christianson will consult tertiary centers for [place] tube placement, will follow up. Greatly appreciate Dr Christianson's input. - Bharath Robertson MD, PGY 2 Disclaimer: The document bellow may not be free of grammatical/phonetic/typographic errors due to use of voice recognition software. This does not dissuade from the commitment to providing health care with the patient's best interest in mind. Attending Provider Attestation/Addendum I have examined the patient, reviewed labs and imaging findings, discussed the case with the resident(s), and reviewed entered orders. I agree with the plan of care as outlined in this note, with these additional summaries/recommendations: Patient seen at bedside. No acute overnight events. Patient will go for dialysis catheter removal today. Patient was evaluated by general surgery who recommends NG tube past pylorus. IR unable to place NG tube past pylorus and we will discuss with gastroenterology. Patient cleared to start dysphagia diet and family okay to give patient porridge. We will continue IV Protonix 40 mg twice daily & carafate for gastric ulcer. Patient still has intractable nausea and vomiting and as needed Zofran. Continue to hold home Eliquis for atrial fibrillation for now as patient is high risk for life-threatening GI bleed. Continue amiodarone. Continue levofloxacin for urinary tract infection. As needed midodrine for hypotension. Patient and daughter updated on the plan and in agreement. Repeat hematology and chemistry panel in AM. Dr. Antoinette MD
[2024-07-21] MEDS: FAT EMULSIONS 20% IV 500 ML 32 ML IV (17:06)
[2024-07-21] MEDS: [UNRECOGNIZED DRUG - OTHER] IV (17:27)
[2024-07-21] MEDS: MAGNESIUM SULF IV (17:27)
[2024-07-21] MEDS: POTASSIUM PHOS IV (17:27)
[2024-07-21] MEDS: POT CHL ADDITIVE IV (17:27)
--- NOTE | 2024-07-21 19:46 | ESPR_ITS ---
Documentation for date of: 07/21/24 Subjective Subjective Interval history: No family present in the room I will reach out to a tertiary center for placement of a jejunostomy feeding tube by IR as our local IR percent can do it Exam Vital Signs Temp Pulse Resp BP Pulse Ox O2 Del Method O2 Flow Rate 97.6 F 90 18 140/90 H 96 Room Air 3 07/21/24 16:00 07/21/24 16:00 07/21/24 16:00 07/21/24 16:00 07/21/24 16:00 07/21/24 16:00 07/21/24 11:55 Objective Labs 07/21/24 04:36 07/21/24 04:36 Labs: Laboratory Results - last 24 hr 07/21/24 04:36 WBC 7.9 RBC 3.93 L Hgb 10.2 L Hct 32.9 L MCV 84 MCH 26.0 MCHC 31.0 RDW Std Deviation 62.2 H Plt Count 268 D Neut % (Auto) 35 L Lymph % (Auto) 49 [place] % (Auto) 13 H Eos % (Auto) 1 Baso % (Auto) 1 Neut # (Auto) 2.8 Lymph # (Auto) 3.9 [place] # (Auto) 1.0 H Eos # (Auto) 0.1 Baso # (Auto) 0.1 Immature Gran # (Auto) 0.13 H Absolute Nucleated RBC 0.00 Immature Gran % 2 H Nucleated RBC % 0 Sodium 139 Potassium 3.6 Chloride 106 Carbon Dioxide 24.1 Anion Gap 9 BUN 13 Creatinine 0.9 Estim Creat Clear Calc 48.0 L eGFR > 60 BUN/Creatinine Ratio 14 Glucose 108 H Calculated Osmolality 278 Calcium 8.4 Corrected Calcium 9.8 Phosphorus 2.3 L Magnesium 1.8 Total Bilirubin 0.7 AST 19 ALT 15 Alkaline Phosphatase 101 Total Protein 4.6 L Albumin 2.3 L Globulin 2.3 Albumin/Globulin Ratio 1.0 L Impressions Impression: Perforated gastric ulcer status post exploratory laparotomy Failure to thrive Continue current management Assessment & Plan A&P Narrative # Failure to thrive Plan Case discussed in detail with the ER physician Difficult to put a PEG tube for further management of failure to thrive however will discuss with the family And attempt should be made if they agree To sustain appropriate nutrition for the patient by placement of a PEG tube Other medical problems include 1 end-stage renal disease hemodialysis MWF 2 chronic A-fib on Eliquis 3 status post exploratory laparotomy for perforated gastric ulcer Ramsey's patch and drainage of the subphrenic abscesses by IR drainage Thank you very much for the opportunity to participate in care of this patient Time Spent With Patient Time: Total time spent is greater than 50% in coordination of care (as documented) at patient's floor/unit and/or counseling patient:
[2024-07-21] MEDS: MELATONIN 3 MG TABLET 6 MG PO (21:54)
[2024-07-21] MEDS: MIDODRINE 5 MG TABLET PO (21:55)
[2024-07-22] VITALS (17 sets, daily range): BP systolic 103–147; BP diastolic 60–89; PULSE 68–103; RESP 18–20; TEMP 36.3–36.8; O2SAT 96–100; BMI 27.6
[2024-07-22 07:01] LABS: Basophils # (Auto) 0.1 Thou/mm3 (0.0-0.2); Basophils % (Auto) 2 % (0-2.5); Eosinophils # (Auto) 0.1 Thou/mm3 (0.0-0.5); Eosinophils % (Auto) 3 % (0-10); Hematocrit 30.3 % (36.0-46.0); Hemoglobin 9.4 g/dL (12.0-16.0); Immature Granulocytes % (Auto) 2 % (0-0); Lymphocytes # (Auto) 1.3 Thou/mm3 (1.0-4.8); Lymphocytes % (Auto) 27 % (10-50); Mean Corpuscular Hemoglobin 26.7 pg (25.0-35.0); Mean Corpuscular Volume 86 fL (80-100); Monocytes # (Auto) 0.6 Thou/mm3 (0.0-0.8); Monocytes % (Auto) 12 % (0-12); Neutrophils # (Auto) 2.5 Thou/mm3 (1.8-7.7); Neutrophils % (Auto) 53 % (37-80); Nucleated Red Blood Cell % 0 /100 WBC (0); Platelet Count 225 Thou/mm3 (140-440); RDW Standard Deviation 62.8 fL (36.4-46.3); Red Blood Count 3.52 Miln/mm3 (4.00-5.20); White Blood Count 4.7 Thou/mm3 (3.6-11.0)
[2024-07-22 07:23] LABS: Alanine Aminotransferase 12 U/L (10-49); Albumin, Serum 2.9 gm/dL (3.4-4.8); Albumin/Globulin Ratio 1.9 (1.2-2.2); Alkaline Phosphatase 79 U/L (46-116); Anion Gap 9 (7-16); Aspartate Amino Transferase 18 U/L (0-34); BUN/Creatinine Ratio 18 Ratio (12-20); Bilirubin,Total 0.6 mg/dL (0.3-1.2); Blood Urea Nitrogen 14 mg/dL (9-23); Calcium 8.7 mg/dL (8.3-10.6); Calcium (Corrected) 9.6 mg/dL (8.5-10.1); Carbon Dioxide 21.6 mMol/L (20.0-31.0); Chloride 105 mMol/L (98-107); Creatinine (Component) 0.8 mg/dL (0.6-1.3); Estimated Creatinine Clearance 58.4 mL/min (>60); Globulin 1.5 gm/dL (2.3-3.5); Glucose 105 mg/dL (74-106); Magnesium 1.9 mg/dL (1.6-2.6); Osmolality,Calculated 272 (275-295); Phosphorous 1.9 mg/dL (2.4-5.1); Potassium 4.2 mMol/L (3.4-5.1); Sodium 136 mMol/L (136-145); Total Protein 4.4 gm/dL (5.7-8.2); eGFR > 60 See Note
[2024-07-22] MEDS: droNABinol 2.5 MG CAPSULE 10 MG PO ×2 (09:02→16:56)
[2024-07-22] MEDS: METOPROLOL SUCCINATE XL 25 MG TABCR PO (09:02)
[2024-07-22] MEDS: ALBUMIN HUMAN 25% IVPB 25 GM/100 ML BTL IV ×2 (09:02→20:02)
[2024-07-22] MEDS: AMIODARONE HCL 200 MG TABLET PO ×2 (09:03→20:11)
[2024-07-22] MEDS: PANTOPRAZOLE INJ 40 MG VIAL IVP ×2 (09:03→20:02)
[2024-07-22] MEDS: FUROSEMIDE INJ 10 MG/ML VIAL 2 ML 20 MG IVP (09:03)
[2024-07-22] MEDS: THIAMINE INJ 100 MG/ML VIAL 2 ML IVP (09:04)
[2024-07-22] MEDS: ENOXAPARIN SOD INJ 40 MG/0.4 ML SYRINGE SC (09:04)
[2024-07-22] MEDS: SUCRALFATE SUSP 1 GM/10 ML UDC PO ×3 (09:04→16:56)
[2024-07-22] MEDS: LEVOFLOXACIN/D5W 250MG IVPB 250 MG/50 ML BAG 50 MG IV (09:04)
[2024-07-22] MEDS: SOD PHOS ADDITIVE 22.5 MMOL in SODIUM CHLORIDE 0.9% 500 ML 500 ML 82.778 MMOL IV (09:35)
--- NOTE | 2024-07-22 09:46 | PD.NEPHPROG ---
Documentation for date of: 07/22/24 Subjective Subjective Interval history: patient is a 69-year-old female with significant past medical history of diabetes mellitus, hypertension, A-fib on Eliquis, ADILSON on hemodialysis, history of gastric ulcers, recent hospitalization in [facility] for perforated gastric ulcer s/p exploratory laparotomy complicated by recurrent abdominal and pelvic abscesses presented from rehab with chief complaint of vomiting. Vomiting is further aggravated by trying to eat, as after taking 2-3 bites she starts vomiting. Denies any fever or chills, headache, chest pain, abdominal pain, any leg swelling. The last hemodialysis and was 1 day ago. During our evaluation, her vitals were stable with soft blood pressure, saturating 92 to 95% on room air. Labs are significant for white count 13.6, hemoglobin 11.8, sodium 139, potassium 4.4, BUN 35, creatinine 1.8, GFR 40, A1c 4.9, corrected calcium 10.2. UA revealed turbid urine, protein 1+, bilirubin 1+, leukocyte esterase positive, WBC 84, bacteria 3+. Chest x-ray significant for mild heart failure pattern. Abdomen/pelvis CT significant for severe gastritis pattern, hyperdense gallbladder with possible pancreatitis. 07/14/2024: The patient was interviewed and examined at the bedside this morning. She reported doing okay. Her vitals were stable with mild tachycardia with heart rate 115. CBC fairly at baseline, chemistry panel revealed sodium 140, potassium 4.3, BUN 38, creatinine 1.7, GFR 32 and corrected calcium 10.2. We will continue to hold off on hemodialysis, and continue to monitor renal panel. 07/15/2024: The patient was interviewed and examined at the bedside this morning along with her son. She reported doing well. She denied any headache, chest pain or SOB, or any leg swelling. Her vitals were fairly stable. CBC at baseline, sodium 141, potassium 3.6, BUN 32, creatinine improving to 1.4, GFR 41, corrected calcium 10.2. We will hold off on hemodialysis, and continue to monitor renal panel. 07/17/2024 doing faily ok. Appetite still low. CR 1.2 Blood sugar 83. Blood pressure 116/89, heart rate 111. Hemoglobin 10.8. Sodium 142, potassium 3, BUN 17, creatinine 1.0, LFTs normal, phosphorus 2.1, magnesium 1.8, albumin 2.4, vitamin D72.9, PTH 66.7 dc dialysis cath in am 07/18/2024 patient currently seen in medical floor. Resting comfortably. LFTs normal. Albumin 2.5. Creatinine markedly improved to 1.0. Potassium 3.2.Patient and family refusing feeding tube. Patient came off dialysis. Pending catheter removal. 07/19/2024 patient currently seen in medical floor. In contact isolation room. Still did not get the dialysis catheter removed. Hopefully can be done today. Replaced all electrolytes. Patient came off dialysis. Appetite still remains poor. Noted family did not want feeding tube. Hemoglobin 10.8, platelets 222. Sodium 138, potassium 3.4, creatinine 0.8, calcium 9.6, phosphorus 1.6, magnesium 1.6, LFTs normal, albumin 2.3, PTH 66.7 07/20/2024 patient currently seen in medical floor. In contact isolation room. Still did not get the dialysis catheter removed. Apparently daughter wanted to hold off for dialysis catheter removal due to edema. Tried to reach the daughter but could not today. Will retry tomorrow. Labs showed creatinine 0.8. Albumin significantly low could be causing third spacing. 07/22/2024 Long conversation with the daughter at bedside-patient needs to have aggressive physical therapy and needs to improve nutritional support. Albumin is extremely low causing third spacing and edema. Added a low-dose diuretic with albumin. Patient has dialysis catheter removal. Noted patient was given Review of Systems Review of Systems Narrative Review of Systems: No cp, sob. No nausea, vomiting Denies any urinary symptoms of burning or frequency. Patient has a diaper pad Decreased appetite. Patient feeling very fatigued and tired ++ edema Exam Vital Signs Temp Pulse Resp BP Pulse Ox O2 Del Method O2 Flow Rate 36.4 C 90 18 114/60 97 Room Air 3 07/22/24 07:33 07/22/24 09:03 07/22/24 07:33 07/22/24 09:03 07/22/24 07:33 07/22/24 07:33 07/22/24 00:00 Narrative Exam General: No acute distress, Alert and Oriented x 3 HEENT: Moist mucous membranes, oropharynx clear Neck: Supple, No masses, No JVD CVS: S1S2 Regular rate and rhythm, No murmurs, rubs or gallops Lungs: Clear to auscultation with no accessory use, no wheeze no rhonchi + IJ cath Abd: Soft, NT/ND, +BS, no organomegaly Ext: 2+ edema in the lower extremities Skin: No rash Objective Labs 07/23/24 05:23 07/23/24 05:23 Labs: Laboratory Results - last 24 hr 07/22/24 06:38 WBC 4.7 D RBC 3.52 L Hgb 9.4 L Hct 30.3 L MCV 86 MCH 26.7 MCHC 31.0 RDW Std Deviation 62.8 H Plt Count 225 D Neut % (Auto) 53 Lymph % (Auto) 27 [place] % (Auto) 12 Eos % (Auto) 3 Baso % (Auto) 2 Neut # (Auto) 2.5 Lymph # (Auto) 1.3 [place] # (Auto) 0.6 Eos # (Auto) 0.1 Baso # (Auto) 0.1 Immature Gran # (Auto) 0.10 H Absolute Nucleated RBC 0.00 Immature Gran % 2 H Nucleated RBC % 0 Sodium 136 Potassium 4.2 D Chloride 105 Carbon Dioxide 21.6 Anion Gap 9 BUN 14 Creatinine 0.8 Estim Creat Clear Calc 58.4 L eGFR > 60 BUN/Creatinine Ratio 18 Glucose 105 Calculated Osmolality 272 L Calcium 8.7 Corrected Calcium 9.6 Phosphorus 1.9 L Magnesium 1.9 Total Bilirubin 0.6 AST 18 ALT 12 Alkaline Phosphatase 79 D Total Protein 4.4 L Albumin 2.9 L D Globulin 1.5 L Albumin/Globulin Ratio 1.9 Assessment & Plan Additional Assessment & Plan Additional Plan: patient is a 69-year-old female with significant past medical history of diabetes mellitus, hypertension, A-fib on Eliquis, ADILSON on hemodialysis MWF, history of gastric ulcers, recent hospitalization in [facility] for perforated gastric ulcer s/p exploratory laparotomy complicated by recurrent abdominal and pelvic abscesses presented from rehab with chief complaint of vomiting. Nephrology consultation was done for further management of ADLISON on hemodialysis. #ADILSON -- was on hemodialysis MWF, improving Patient had ATN while she was admitted to ICU for soft blood pressure on 05/14/2024. Later she was started on hemodialysis for volume overload and oliguria. Presented with BUN 29, creatinine 1.8 and GFR 30, but within the last 3 months or GFR was worsened, gradually has been improving. 07/22/2024 creatinine 0.8- DCed dialysis catheter. Daughter agreed for diuretics -Avoid nephrotoxic drugs -Renal dose modifications proceed with Lasix/albumin to improve edema. replace potassium, phosphorus -Daily a.m. renal panel #Mild hypercalcemia Likely secondary to immobilization and possible dehydration in the setting of poor oral intake, nausea and vomiting further complicated by aggressive ultrafiltration during hemodialysis -Encouraged oral rehydration Better -Monitor calcium level daily in the a.m. #Gastritis #Dysphagia #Intractable nausea and vomiting #History of gastric ulcers #A-fib with RVR #Diabetes mellitus type II -Management deferred to primary hospitalist team
[2024-07-22] MEDS: METOCLOPRAMIDE INJ 5 MG/ML VIAL 2 ML 10 MG IVP (13:45)
--- NOTE | 2024-07-22 13:46 | PD.RESPRO ---
Documentation for date of: 07/22/24 Subjective Subjective Interval history: Patient seen at bedside. No acute overnight events. Nurse and family at bedside states that she is eating a little better, no vomiting. She does report intermittent abdominal pain about 8/10 in severity. Postpyloric feeding tube is yet to be done, will follow-up with GI and surgery on other options for placement. In the interim, we will continue IV albumin, PPN and replete electrolytes. Exam Vital Signs Temp Pulse Resp BP Pulse Ox O2 Del Method O2 Flow Rate 97.3 F 80 18 111/67 100 Nasal Cannula 2 07/22/24 11:44 07/22/24 12:13 07/22/24 12:13 07/22/24 11:44 07/22/24 12:13 07/22/24 11:44 07/22/24 11:44 Narrative Exam GENERAL: AAOX3 NEURO: CAPACITY ANALYST grossly intact, moves extremities x4 HEENT: Moist mucosa. Eyes open, symmetrical, & clear CARDIO: No chest pain on palpation. Heart RRR, no obvious murmurs PULM: No noted coughing/dyspnea. Lungs CTA B/L GI: Abdomen soft, nondistended, no pain on palpation. BSx4 URO/EXCAVATION LABORER:: No further abnormalities noted. SKIN/MSK/EXT: Bilateral pitting edema 2+ Objective Labs 07/23/24 05:23 07/23/24 05:23 Labs: Laboratory Results - last 24 hr 07/22/24 06:38 WBC 4.7 D RBC 3.52 L Hgb 9.4 L Hct 30.3 L MCV 86 MCH 26.7 MCHC 31.0 RDW Std Deviation 62.8 H Plt Count 225 D Neut % (Auto) 53 Lymph % (Auto) 27 [place] % (Auto) 12 Eos % (Auto) 3 Baso % (Auto) 2 Neut # (Auto) 2.5 Lymph # (Auto) 1.3 [place] # (Auto) 0.6 Eos # (Auto) 0.1 Baso # (Auto) 0.1 Immature Gran # (Auto) 0.10 H Absolute Nucleated RBC 0.00 Immature Gran % 2 H Nucleated RBC % 0 Sodium 136 Potassium 4.2 D Chloride 105 Carbon Dioxide 21.6 Anion Gap 9 BUN 14 Creatinine 0.8 Estim Creat Clear Calc 58.4 L eGFR > 60 BUN/Creatinine Ratio 18 Glucose 105 Calculated Osmolality 272 L Calcium 8.7 Corrected Calcium 9.6 Phosphorus 1.9 L Magnesium 1.9 Total Bilirubin 0.6 AST 18 ALT 12 Alkaline Phosphatase 79 D Total Protein 4.4 L Albumin 2.9 L D Globulin 1.5 L Albumin/Globulin Ratio 1.9 Quality Measures Quality Measures VTE prophylaxis Advance care planning discussed with:: child Assessment & Plan Assessment Current Active Medications: Generic Name Dose Route Start Last Admin Trade Name Freq PRN Reason Stop Dose Admin Acetaminophen 650 mg 07/12/24 20:33 07/18/24 10:34 Acetaminophen 325 Mg Tablet PO 08/11/24 20:32 650 mg Q6H PRN Administration Fever >101.5 Al Hydrox/Mg Hydrox/Simethicone 30 ml 07/12/24 20:51 Mg Hyd/Al Hyd/Ronald (Maalox Reg) Susp 30 Ml Udc PO 08/11/24 20:50 QID PRN UPSET STOMACH/INDIGESTION Albuterol/Ipratropium 3 ml 07/20/24 00:09 07/21/24 03:50 Albuterol/Ipratropium (Duoneb) Rt Jimena 3 Ml Nebu INH 08/19/24 00:08 3 ml Q6HRRT PRN Administration SHORTNESS OF BREATH OR WHEEZE Amiodarone HCl 200 mg 07/12/24 21:00 07/22/24 09:03 Amiodarone Hcl 200 Mg Tablet PO 08/11/24 20:59 200 mg BID ANGELICA Administration Dextrose 50 ml 07/12/24 21:11 07/18/24 17:21 Dextrose 50%-Water Inj 50 Ml Syringe IV 08/11/24 21:10 50 ml Q15MIN PRN Administration BG <50 OR BG <70 & pt unresponsive Dronabinol 10 mg 07/13/24 07:30 07/22/24 09:02 Dronabinol 2.5 Mg Capsule PO 08/12/24 07:29 10 mg BIDAC ANGELICA Administration Enoxaparin Sodium 40 mg 07/20/24 15:45 07/22/24 09:04 Enoxaparin Sod Inj 40 Mg/0.4 Ml Syringe SC 08/03/24 15:44 40 mg QDAY ANGELICA Administration Furosemide 20 mg 07/21/24 09:00 07/22/24 09:03 Furosemide Inj 10 Mg/Ml Vial 2 Ml IVP 08/20/24 08:59 20 mg QDAY ANGELICA Administration Glucagon 1 mg 07/12/24 21:11 Glucagon Inj 1 Mg Vial IM Q15MIN PRN BG <70, and no IV access Levofloxacin/Dextrose 250 mg in 50 mls @ 50 mls/hr 07/16/24 09:00 07/22/24 09:04 Levaquin Ivpb IV 07/23/24 08:59 50 mls/hr QDAY ANGELICA Administration Fat Emulsion Intravenous 500 mls @ 32 mls/hr 07/21/24 18:00 07/21/24 17:06 Intralipid 20% Iv IV 08/20/24 17:59 32 mls/hr [id number] ANGELICA Administration Albumin Human 25 gm in 100 mls @ 100 mls/hr 07/21/24 09:00 07/22/24 09:02 Albuminar-25 Ivpb IV 07/24/24 08:59 100 mls/hr BID ANGELICA Administration Potassium Chloride 40 meq/ 1,040 mls @ 50 mls/hr 07/21/24 18:00 07/21/24 17:27 Potassium Phosphate 15 mmol/ IV 07/22/24 14:47 50 mls/hr Magnesium Sulfate 2 gm/ .[id number] ANGELICA Administration Multivitamins/Minerals 10 ml/ Thiamine HCl 100 mg/ Amino Acids Sodium Phosphate 15 mmol/ 1,019 mls @ 50 mls/hr 07/22/24 14:48 Magnesium Sulfate 2 gm/ IV 07/23/24 11:10 Multivitamins/Minerals 10 ml/ .[id number] ANGELICA Amino Acids Insulin Human Lispro 0 unit 07/20/24 06:00 07/22/24 11:14 Insulin Lispro (Admelog) 1 Unit/0.01 Ml Unit SC 08/19/24 05:59 Not Given Q6HR [facility] Protocol Melatonin 6 mg 07/19/24 21:00 07/21/24 21:54 Melatonin 3 Mg Tablet PO 08/18/24 20:59 6 mg HS ANGELICA Administration Metoprolol Succinate 25 mg 07/13/24 09:00 07/22/24 09:02 Metoprolol Succinate Xl 25 Mg Tabcr PO 08/12/24 08:59 25 mg QDAY ANGELICA Administration Midodrine 5 mg 07/12/24 22:00 07/22/24 05:33 Midodrine 5 Mg Tablet PO 08/11/24 21:59 Not Given TID [facility] Ondansetron HCl 4 mg 07/12/24 20:33 07/17/24 11:02 Ondansetron Inj 2 Mg/Ml Inj 2 Ml IV 08/11/24 20:32 4 mg Q6H PRN Administration NAUSEA OR VOMITING Protocol Pantoprazole Sodium 40 mg 07/13/24 09:30 07/22/24 09:03 Pantoprazole Inj 40 Mg Vial IVP 08/12/24 09:29 40 mg BID ANGELICA Administration Pharmacy Consult 1 each 07/20/24 15:56 Pha To Consult Parenteral Nutr 1 Each Each XX 08/19/24 15:55 PRN PRN CONSULT Sennosides 1 tab 07/12/24 20:44 Senna Tablet PO 08/11/24 20:43 QDAY PRN CONSTIPATION Protocol Sucralfate 1 gm 07/13/24 11:30 07/22/24 11:23 Sucralfate Susp 1 Gm/10 Ml Udc PO 08/12/24 11:29 1 gm AC ANGELICA Administration Thiamine HCl 100 mg 07/21/24 11:30 07/22/24 09:04 Thiamine Inj 100 Mg/Ml Vial 2 Ml IVP 07/27/24 11:29 100 mg QDAY ANGELICA Administration Plan Summary: The patient is a 69-year-old female with past medical history of diabetes mellitus, hypertension, atrial fibrillation on Eliquis, end-stage renal disease on hemodialysis (MWF), history of gastric ulcers, recent hospitalization [facility] for perforated gastric ulcer status post exploratory laparotomy complicated by recurrent abdominal and pelvic abscesses who presented from rehab with a chief complaint of vomiting. Patient admitted to hospital for further workup for dysphagia poor p.o. intake and possible intervention for adequate nutrition. #Failure to thrive. #Protein Calorie Malnutrition #Nausea and vomiting. #History of gastric ulcers. #Severe gastritis, unspecified. #History of ex lap- recurrent abdominal abscess #?Gastric perforation #Hypophosphatemia Per patient's daughter on medical billing coder of intermediate home patient has significantly poor p.o. intake, takes only 2-3 bites, unable to maintain a normal appetite. Patient does complain of mild epigastric pain, patient does have history of gastric ulcers recently was admitted to hospital for complicated perforated gastric ulcer. Patient is able to take a few bites but GI Dr. Christianson was consulted, will possibly plan patient for PEG tube if family consents. 07/16/2024- Per nurse this morning, the patient had 1 episode of vomiting after she tried to give her some juice due to hypoglycemia. Labs were reviewed and potassium was attempted to be repleted, but patient had another episode of vomiting. Family still wanting to hold off on PEG tube placement, will touch base with them again as patient is unable to tolerate oral intake at this time 07/17/2024: Pt continues to have nausea with eating, including taking pills. Pt and family will have to make decision with goals of care including PEG tube at this time. 07/19/2024: Patient's family still keeping PEG tube on hold. She was scheduled to have nuclear medicine gastric emptying scan yesterday, however was scheduled for today. Patient is reported to have vomited this morning and has been rescheduled for tomorrow. 07/20/2024- Scheduled to have nuclear medicine gastric emptying scan today, procedure was unable to be done as patient vomited the isotope and no imaging was obtained. We followed up with CT abdomen which showed findings are consistent with gastric ulcer/localized perforation and severe gastritis. General surgeon Dr. Santana consulted, will evaluate the patient. In the interim, we will start the patient on PPN and get consent for likely TPN 07/21/2024- Still has minimal oral intake. She was evaluated by surgeon Dr. Santana this morning who recommends postpyloric feeding with nasoduodenal/nasojejunal tube and family is agreeable. Will consult IR/GI for possible placement. Otherwise, she is still on PPN and clinical condition has remained stable. 07/22/2024- Nurse and family at bedside states that she is eating a little better, no vomiting. She does report intermittent abdominal pain about 8/10 in severity. Postpyloric feeding tube is yet to be done, will follow-up with GI and surgery on other options for placement. In the interim, we will continue IV albumin, PPN and replete electrolytes. Plan: - Continue IV albumin and PPN - Replete electrolytes as needed ? GI consulted, appreciate recommendations. ? Protonix 40mg BID. ? Maalox as needed. ? Patient on dronabinol - General surgery consulted, appreciate recommendations #ESBL UTI On admission, UA was positive for 3+ bacteria and 84 WBCs. Although the patient had no complaints, she was started on IV ceftriaxone for prophylaxis. Urine culture returned positive for ESBL UTI sensitive to IV levofloxacin. Plan: -Continue IV levofloxacin #Hx of afib with RVR, rate controlled. Patient was noted to be in A-fib with RVR in ED, was given diltiazem 20 IV x 1, plan was to start patient on diltiazem drip. Patient's heart rate fluctuating in 90s to 110, no rapid ventricular response noted. Patient does have a history of atrial fibrillation, currently on amiodarone 200 twice daily, metoprolol succinate 25 p.o. daily and Eliquis 5 mg twice daily. Patient's last echo 05/16/2024 shows normal LV size and function, EF 55 to 60%, mild LVH stage I diastolic dysfunction. 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 Mild AV Sclerosis without stenosis. Plan: ? Resumed home dose amiodarone 200 twice daily, metoprolol succinate 25 mg p.o. daily. ? Eliquis on hold. ? Telemonitoring. #Diabetes mellitus. Patient has history of diabetes mellitus, last hemoglobin A1c was 6.3. Plan: ? Sliding scale insulin. ? Resumed home dose Lantus 12 units daily. ? Fingerstick blood glucose, blood glucose goal 140-180. ? Hypoglycemia protocol. #ADILSON on hemodialysis MWF-resolved Patient received dialysis treatment yesterday, reports of allergic rash postdialysis. Received Benadryl BUN and creatinine within normal limits. Patient is now off dialysis Plan: - Dialysis discontinued ? Resume home dose midodrine. Health maintenance: DVT prophylaxis: Lovenox GI prophylaxis: IV Protonix Diet: Dysphagia 3 plus Nepro Lines: Peripheral IV Code status: DNR/DNI Case was discussed with Dr Robertson PGY-2 and attending physician, Dr Antoinette Stanley MD PGY-1 Disclaimer: This note was dictated by speech recognition. Minor errors in burglar alarm mechanic may be present due to voice recognition software. Patient examined and case discussed with the team including attending physician. Note reviewed, I agree with the care plan as documented. Patient admitted after gastric surgery, CT abdomen shows possible gastric perforation. GI following, recommend NJ tube. IR consulted, but unable to place a jejunal tube. General surgery Dr Santana consulted for further recommendations, counseled the family. Dr Christianson will consult tertiary centers for [place] tube placement, will follow up. Greatly appreciate Dr Christianson's input. Patient is tolerating PO intake and has minimal abdominal discomfort. Plan: Continue diet as well as PPN until further recommendations from GI. General surgery to attempt placement of naso-jejunal tube, as per Dr Atkinson. - Bharath Robertson MD, PGY 2 Disclaimer: The document below may not be free of grammatical/phonetic/typographic errors due to use of voice recognition software. This does not dissuade from the commitment to providing health care with the patient's best interest in mind. Attending Provider Attestation/Addendum I have examined the patient, reviewed labs and imaging findings, discussed the case with the resident(s), and reviewed entered orders. I agree with the plan of care as outlined in this note, with these additional summaries/recommendations: Patient seen at bedside. No acute overnight events. Patient was seen swallowing one of her crushed medications today and immediately endorsed postprandial pain after swallowing the medication. Pain quickly subsided without intervention. IR unable to place NG tube past pylorus and we will discuss with gastroenterology and surgery to see if this can be completed in house. Patient cleared to start dysphagia diet and family okay to give food. Advise patient and nurse to record all oral intake for adequate evaluation. We will continue IV Protonix 40 mg twice daily & carafate for gastric ulcer and gastric perf?. Patient still has intractable nausea and vomiting and as needed Zofran. Continue to hold home Eliquis for atrial fibrillation for now as patient is high risk for life-threatening GI bleed. Continue amiodarone. Continue levofloxacin for urinary tract infection. As needed midodrine for hypotension. Patient and daughter updated on the plan and in agreement. Repeat hematology and chemistry panel in AM. Dr. Antoinette MD
[2024-07-22] MEDS: MIDODRINE 5 MG TABLET PO (13:50)
--- NOTE | 2024-07-22 14:06 | XR_ITS ---
Examination: AP chest single view Technique one AP portable supine chest single view Exam date and time: July 22, 2024 1427 hrs. Comparison July 12, 2024 Indications: Post orogastric tube placement. Findings: Orogastric tube is in the stomach, the tip is below the level of the film [id number] chronic heart failure, mild to moderate enlargement cardiac contour prominent vascular congestion perihilar basilar edema Likely superimposed pneumonia at the lung bases No pneumothorax Impression: The orogastric tube is in the stomach, the tip is below the level of the film
--- NOTE | 2024-07-22 14:33 | XR_ITS ---
Examination: Abdomen AP single view Technique: AP portable supine abdomen, single view Exam date and time: July 22, 2024 1447 hrs. Comparison June 02, 2024 Indications: Orogastric tube placement Findings: Orogastric tube distal body the stomach satisfactory position Nonobstructive bowel gas pattern No free air Heavy mitral valvular calcification Impression: Orogastric tube in stomach satisfactory position
--- NOTE | 2024-07-22 14:41 | PD.SURPROG ---
Documentation for date of: 07/22/24 Subjective Subjective Narrative: No acute changes since yesterday Exam Vital Signs Temp Pulse Resp BP Pulse Ox O2 Del Method O2 Flow Rate 97.3 F 99 18 105/77 100 Nasal Cannula 2 07/22/24 11:44 07/22/24 13:50 07/22/24 12:13 07/22/24 13:50 07/22/24 12:13 07/22/24 11:44 07/22/24 11:44 Constitutional Constitutional: no acute distress Routine Respiratory Exam Respiratory: Present no resp distress Routine Abdominal Exam Abdominal: Present soft; Absent tenderness or distended Results Results: Laboratory Laboratory results: results reviewed Assessment & Plan Plan 69F with atrial fibrillation, CHF, peptic ulcer s/p laparotomy for repair of perforated peptic ulcer 05/14, with poor appetite since then remaining hospitalized due to need for nutrition. Pt was considered for transfer for placement of NG past pylorus but I explained to pt and familiy that I can attempt at bedside. They expressed understanding and are agreeable to this plan Will attempt feeding tube placement at bedside Reglan x1 before procedure
--- NOTE | 2024-07-22 14:58 | PC.DIETICIAN ---
Nutrition prescription: If EN is indicated, consider: ?Nepro at 20 ml/hr x 24 hrs (do not advance) via NG-tube. If no IV fluids, water flushes 25 ml/hr (or per MD). If no electrolytes disturbances and pt is tolerating EN after 24 hrs, advance 10 ml every 12 hrs to goal rate of 38 ml/hr x 24 hrs. Continue with water flushes 25 ml/hr (or per MD).
--- NOTE | 2024-07-22 15:04 | PC.DIETICIAN ---
Addendum entered by Akhil Oh, THOMAS 07/22/24 15:18: If EN is indicated, consider: 1) ?Nepro at 20 ml/hr x 24 hrs (do not advance) via NG-tube. If no IV fluids, water flushes 25 ml/hr (or per MD). If no electrolytes disturbances and pt is tolerating EN after 24 hrs, advance 10 ml every 12 hrs to goal rate of 38 ml/hr x 24 hrs. 2) Thiamine 100mg/day for 7 days; provide first dose at least 30 minutes before starting nutrition. 3) Multivitamins/Minerals. 4) Daily labs for P, K, and Mg; replace as needed. Original Note: If EN is indicated, consider: ?Nepro at 20 ml/hr x 24 hrs (do not advance) via NG-tube. If no IV fluids, water flushes 25 ml/hr (or per MD). If no electrolytes disturbances and pt is tolerating EN after 24 hrs, advance 10 ml every 12 hrs to goal rate of 38 ml/hr x 24 hrs.
--- NOTE | 2024-07-22 15:16 | XR_ITS ---
Examination: Abdomen AP single view Technique: AP portable supine abdomen, single view Exam date and time: July 22, 2024 1525 hrs. Indications: Status post reinsertion orogastric tube Findings: Orogastric tube tip projects in the second portion of the duodenum No free air Impression: Orogastric tube tip projects in the second portion duodenum
--- NOTE | 2024-07-22 18:30 | PD.IMPROG ---
Documentation for date of: 07/22/24 Subjective Subjective Interval history: Patient evaluated Spoke with the internal medicine team My advice is involve the transfer center for hospital to get the patient transferred IR is available for jejunostomy tube placement Exam Vital Signs Temp Pulse Resp BP Pulse Ox O2 Del Method O2 Flow Rate 97.3 F 103 H 18 104/68 100 Nasal Cannula 2 07/22/24 16:00 07/22/24 16:00 07/22/24 16:00 07/22/24 16:00 07/22/24 16:00 07/22/24 16:00 07/22/24 16:00 Objective Labs 07/22/24 06:38 07/22/24 06:38 Labs: Laboratory Results - last 24 hr 07/22/24 06:38 WBC 4.7 D RBC 3.52 L Hgb 9.4 L Hct 30.3 L MCV 86 MCH 26.7 MCHC 31.0 RDW Std Deviation 62.8 H Plt Count 225 D Neut % (Auto) 53 Lymph % (Auto) 27 [place] % (Auto) 12 Eos % (Auto) 3 Baso % (Auto) 2 Neut # (Auto) 2.5 Lymph # (Auto) 1.3 [place] # (Auto) 0.6 Eos # (Auto) 0.1 Baso # (Auto) 0.1 Immature Gran # (Auto) 0.10 H Absolute Nucleated RBC 0.00 Immature Gran % 2 H Nucleated RBC % 0 Sodium 136 Potassium 4.2 D Chloride 105 Carbon Dioxide 21.6 Anion Gap 9 BUN 14 Creatinine 0.8 Estim Creat Clear Calc 58.4 L eGFR > 60 BUN/Creatinine Ratio 18 Glucose 105 Calculated Osmolality 272 L Calcium 8.7 Corrected Calcium 9.6 Phosphorus 1.9 L Magnesium 1.9 Total Bilirubin 0.6 AST 18 ALT 12 Alkaline Phosphatase 79 D Total Protein 4.4 L Albumin 2.9 L D Globulin 1.5 L Albumin/Globulin Ratio 1.9 Impressions Impression: # Failure to thrive Transfer the patient to an institution where IR is available to do jejunostomy I will try to contact my contacts at tertiary centers Assessment & Plan A&P Narrative # Failure to thrive Plan Case discussed in detail with the ER physician Difficult to put a PEG tube for further management of failure to thrive however will discuss with the family And attempt should be made if they agree To sustain appropriate nutrition for the patient by placement of a PEG tube Other medical problems include 1 end-stage renal disease hemodialysis MWF 2 chronic A-fib on Eliquis 3 status post exploratory laparotomy for perforated gastric ulcer Ramsey's patch and drainage of the subphrenic abscesses by IR drainage Thank you very much for the opportunity to participate in care of this patient Time Spent With Patient Time: Total time spent is greater than 50% in coordination of care (as documented) at patient's floor/unit and/or counseling patient:
[2024-07-22] MEDS: MELATONIN 3 MG TABLET 6 MG PO (20:02)
[2024-07-22] MEDS: ACETAMINOPHEN 325 MG TABLET 650 MG PO (23:38)
[2024-07-23] VITALS (15 sets, daily range): BP systolic 98–152; BP diastolic 60–92; PULSE 74–100; RESP 16–22; TEMP 36.1–36.6; O2SAT 96–100
[2024-07-23] MEDS: HYDROcodone/APAP 5/325 TABLET 1 TAB PO (01:03)
[2024-07-23] MEDS: MIDODRINE 5 MG TABLET PO ×3 (05:24→22:19)
[2024-07-23 06:01] LABS: Basophils # (Auto) 0.1 Thou/mm3 (0.0-0.2); Basophils % (Auto) 1 % (0-2.5); Eosinophils # (Auto) 0.1 Thou/mm3 (0.0-0.5); Eosinophils % (Auto) 2 % (0-10); Hematocrit 29.3 % (36.0-46.0); Immature Granulocytes % (Auto) 2 % (0-0); Immature Granulocytes Auto 0.12 Thou/mm3 (0.00-0.00); Lymphocytes # (Auto) 1.5 Thou/mm3 (1.0-4.8); Lymphocytes % (Auto) 28 % (10-50); Mean Corpuscular HGB Conc 30.7 g/dl (31.0-37.0); Mean Corpuscular Volume 85 fL (80-100); Monocytes # (Auto) 0.5 Thou/mm3 (0.0-0.8); Monocytes % (Auto) 10 % (0-12); Neutrophils # (Auto) 3.1 Thou/mm3 (1.8-7.7); Neutrophils % (Auto) 57 % (37-80); Nucleated Red Blood Cell % 0 /100 WBC (0); Platelet Count 229 Thou/mm3 (140-440); RDW Standard Deviation 62.2 fL (36.4-46.3); Red Blood Count 3.46 Miln/mm3 (4.00-5.20); White Blood Count 5.4 Thou/mm3 (3.6-11.0)
[2024-07-23 06:21] LABS: Alanine Aminotransferase 11 U/L (10-49); Albumin, Serum 3.3 gm/dL (3.4-4.8); Albumin/Globulin Ratio 1.8 (1.2-2.2); Alkaline Phosphatase 93 U/L (46-116); Anion Gap 9 (7-16); Aspartate Amino Transferase 16 U/L (0-34); BUN/Creatinine Ratio 17 Ratio (12-20); Bilirubin,Total 0.7 mg/dL (0.3-1.2); Blood Urea Nitrogen 15 mg/dL (9-23); Calcium 8.7 mg/dL (8.3-10.6); Calcium (Corrected) 9.3 mg/dL (8.5-10.1); Carbon Dioxide 24.7 mMol/L (20.0-31.0); Chloride 105 mMol/L (98-107); Creatinine (Component) 0.9 mg/dL (0.6-1.3); Estimated Creatinine Clearance 6.6 mL/min (>60); Globulin 1.8 gm/dL (2.3-3.5); Glucose 96 mg/dL (74-106); Magnesium 1.6 mg/dL (1.6-2.6); Osmolality,Calculated 278 (275-295); Potassium 3.3 mMol/L (3.4-5.1); Sodium 139 mMol/L (136-145); Total Protein 5.1 gm/dL (5.7-8.2); eGFR > 60 See Note
[2024-07-23] MEDS: SUCRALFATE SUSP 1 GM/10 ML UDC PO ×3 (07:47→16:25)
[2024-07-23] MEDS: ALBUMIN HUMAN 25% IVPB 25 GM/100 ML BTL IV ×2 (09:05→20:33)
[2024-07-23] MEDS: POTASSIUM CHLORIDE 10% 20 MEQ/15 ML UDC 40 MEQ GT (09:05)
[2024-07-23] MEDS: ENOXAPARIN SOD INJ 40 MG/0.4 ML SYRINGE SC (09:05)
[2024-07-23] MEDS: METOPROLOL SUCCINATE XL 25 MG TABCR PO (09:06)
[2024-07-23] MEDS: AMIODARONE HCL 200 MG TABLET PO ×2 (09:06→20:26)
[2024-07-23] MEDS: PANTOPRAZOLE INJ 40 MG VIAL IVP ×2 (09:06→20:31)
[2024-07-23] MEDS: THIAMINE INJ 100 MG/ML VIAL 2 ML IVP (09:07)
[2024-07-23] MEDS: droNABinol 2.5 MG CAPSULE 10 MG PO ×2 (09:08→16:25)
[2024-07-23] MEDS: FUROSEMIDE INJ 10 MG/ML VIAL 2 ML 20 MG IVP (10:21)
--- NOTE | 2024-07-23 12:37 | ESPR_ITS ---
Documentation for date of: 07/23/24 Subjective Subjective Interval history: Patient was seen and examined at the bedside. No acute overnight events. Patient received NJ tube yesterday and started tube feeds, currently on 20 cc/h with water flushes, tolerates well so far, will continue advancing rate of feeding and monitor patient. Electrolytes were repleted, family was updated. Exam Vital Signs Temp Pulse Resp BP Pulse Ox O2 Del Method O2 Flow Rate 97.6 F 81 16 99/64 98 Nasal Cannula 2 07/23/24 11:58 07/23/24 12:00 07/23/24 11:58 07/23/24 11:58 07/23/24 07:50 07/23/24 07:50 07/23/24 07:50 Narrative Exam Gen: Well-developed and well-nourished female. HEENT: NCAT, PERRLA, EOMI, MMM, anicteric conjunctivae. NJ in place. CVS: normal S1 and S2. Irregularly irregular. No M/R/G. Resp: minimal crackles B/L. No rhonchi, rales or wheezing. Abd: soft, non-tender, non-distended. BS+ in all 4 quadrants. Well healing abdominal scar. MSK: Good ROM in BUE & BLE. No rash. Trace edema BLE. Neuro: CN II-XII grossly intact. Strength 5/5 in BUE & BLE. Alert and oriented x3. Psych: appropriate mood and affect. Objective Labs 07/23/24 05:23 07/23/24 05:23 Labs: Laboratory Results - last 24 hr 07/23/24 05:23 WBC 5.4 RBC 3.46 L Hgb 9.0 L Hct 29.3 L MCV 85 MCH 26.0 MCHC 30.7 L RDW Std Deviation 62.2 H Plt Count 229 Neut % (Auto) 57 Lymph % (Auto) 28 [place] % (Auto) 10 Eos % (Auto) 2 Baso % (Auto) 1 Neut # (Auto) 3.1 Lymph # (Auto) 1.5 [place] # (Auto) 0.5 Eos # (Auto) 0.1 Baso # (Auto) 0.1 Immature Gran # (Auto) 0.12 H Absolute Nucleated RBC 0.00 Immature Gran % 2 H Nucleated RBC % 0 Sodium 139 Potassium 3.3 L D Chloride 105 Carbon Dioxide 24.7 Anion Gap 9 BUN 15 Creatinine 0.9 Estim Creat Clear Calc 6.6 L eGFR > 60 BUN/Creatinine Ratio 17 Glucose 96 Calculated Osmolality 278 Calcium 8.7 Corrected Calcium 9.3 Phosphorus 3.0 Magnesium 1.6 Total Bilirubin 0.7 AST 16 ALT 11 Alkaline Phosphatase 93 Total Protein 5.1 L Albumin 3.3 L Globulin 1.8 L Albumin/Globulin Ratio 1.8 Quality Measures Quality Measures VTE prophylaxis Advance care planning discussed with:: patient and child Assessment & Plan Assessment Current Active Medications: Generic Name Dose Route Start Last Admin Trade Name Freq PRN Reason Stop Dose Admin Acetaminophen 650 mg 07/23/24 00:02 Acetaminophen 325 Mg Tablet PO 08/11/24 20:32 Q6H PRN Pain 1-3 Or Fever > 101 Hydrocodone Bitart/Acetaminophen 1 tab 07/22/24 23:26 07/23/24 01:03 Hydrocodone/Apap 5/325 Tablet PO 07/27/24 23:25 1 tab Q8H PRN Administration PAIN SCALE 4-10(Mod-Sev Al Hydrox/Mg Hydrox/Simethicone 30 ml 07/12/24 20:51 Mg Hyd/Al Hyd/Ronald (Maalox Reg) Susp 30 Ml Udc PO 08/11/24 20:50 QID PRN UPSET STOMACH/INDIGESTION Albuterol/Ipratropium 3 ml 07/20/24 00:09 07/21/24 03:50 Albuterol/Ipratropium (Duoneb) Rt Jimena 3 Ml Nebu INH 08/19/24 00:08 3 ml Q6HRRT PRN Administration SHORTNESS OF BREATH OR WHEEZE Amiodarone HCl 200 mg 07/12/24 21:00 07/23/24 09:06 Amiodarone Hcl 200 Mg Tablet PO 08/11/24 20:59 200 mg BID ANGELICA Administration Dextrose 50 ml 07/12/24 21:11 07/18/24 17:21 Dextrose 50%-Water Inj 50 Ml Syringe IV 08/11/24 21:10 50 ml Q15MIN PRN Administration BG <50 OR BG <70 & pt unresponsive Dronabinol 10 mg 07/13/24 07:30 07/23/24 09:08 Dronabinol 2.5 Mg Capsule PO 08/12/24 07:29 10 mg BIDAC ANGELICA Administration Enoxaparin Sodium 40 mg 07/20/24 15:45 07/23/24 09:05 Enoxaparin Sod Inj 40 Mg/0.4 Ml Syringe SC 08/03/24 15:44 40 mg QDAY ANGELICA Administration Furosemide 20 mg 07/21/24 09:00 07/23/24 10:21 Furosemide Inj 10 Mg/Ml Vial 2 Ml IVP 08/20/24 08:59 20 mg QDAY ANGELICA Administration Glucagon 1 mg 07/12/24 21:11 Glucagon Inj 1 Mg Vial IM Q15MIN PRN BG <70, and no IV access Albumin Human 25 gm in 100 mls @ 100 mls/hr 07/21/24 09:00 07/23/24 09:05 Albuminar-25 Ivpb IV 07/24/24 08:59 100 mls/hr BID ANGELICA Administration Insulin Human Lispro 0 unit 07/20/24 06:00 07/23/24 11:36 Insulin Lispro (Admelog) 1 Unit/0.01 Ml Unit SC 08/19/24 05:59 Not Given Q6HR ANGELICA Protocol Melatonin 6 mg 07/19/24 21:00 07/22/24 20:02 Melatonin 3 Mg Tablet PO 08/18/24 20:59 6 mg HS ANGELICA Administration Metoprolol Succinate 25 mg 07/13/24 09:00 07/23/24 09:06 Metoprolol Succinate Xl 25 Mg Tabcr PO 08/12/24 08:59 25 mg QDAY ANGELICA Administration Midodrine 5 mg 07/12/24 22:00 07/23/24 05:24 Midodrine 5 Mg Tablet PO 08/11/24 21:59 5 mg TID ANGELICA Administration Ondansetron HCl 4 mg 07/12/24 20:33 07/17/24 11:02 Ondansetron Inj 2 Mg/Ml Inj 2 Ml IV 08/11/24 20:32 4 mg Q6H PRN Administration NAUSEA OR VOMITING Protocol Pantoprazole Sodium 40 mg 07/13/24 09:30 07/23/24 09:06 Pantoprazole Inj 40 Mg Vial IVP 08/12/24 09:29 40 mg BID ANGELICA Administration Pharmacy Consult 1 each 07/20/24 15:56 Pha To Consult Parenteral Nutr 1 Each Each XX 08/19/24 15:55 PRN PRN CONSULT Sennosides 1 tab 07/12/24 20:44 Senna Tablet PO 08/11/24 20:43 QDAY PRN CONSTIPATION Protocol Sucralfate 1 gm 07/13/24 11:30 07/23/24 11:33 Sucralfate Susp 1 Gm/10 Ml Udc PO 08/12/24 11:29 1 gm AC ANGELICA Administration Thiamine HCl 100 mg 07/21/24 11:30 07/23/24 09:07 Thiamine Inj 100 Mg/Ml Vial 2 Ml IVP 07/27/24 11:29 100 mg QDAY ANGELICA Administration Plan Summary: The patient is a 69-year-old female with past medical history of diabetes mellitus, hypertension, atrial fibrillation on Eliquis, end-stage renal disease on hemodialysis (MWF), history of gastric ulcers, recent hospitalization [facility] for perforated gastric ulcer status post exploratory laparotomy complicated by recurrent abdominal and pelvic abscesses who presented from rehab with a chief complaint of vomiting. Patient admitted to hospital for further workup for dysphagia poor p.o. intake and possible intervention for adequate nutrition. #Failure to thrive. #Protein Calorie Malnutrition #Nausea and vomiting. #History of gastric ulcers. #Severe gastritis, unspecified. #History of ex lap- recurrent abdominal abscess #?Gastric perforation #Hypophosphatemia, resolved. #s/p NJ tube placement. Per patient's daughter on center medical specialist of assisted home patient has significantly poor p.o. intake, takes only 2-3 bites, unable to maintain a normal appetite. Patient does complain of mild epigastric pain, patient does have history of gastric ulcers recently was admitted to hospital for complicated perforated gastric ulcer. Patient is able to take a few bites but GI Dr. Christianson was consulted, will possibly plan patient for PEG tube if family consents. 07/16/2024- Per nurse this morning, the patient had 1 episode of vomiting after she tried to give her some juice due to hypoglycemia. Labs were reviewed and potassium was attempted to be repleted, but patient had another episode of vomiting. Family still wanting to hold off on PEG tube placement, will touch base with them again as patient is unable to tolerate oral intake at this time 07/17/2024: Pt continues to have nausea with eating, including taking pills. Pt and family will have to make decision with goals of care including PEG tube at this time. 07/19/2024: Patient's family still keeping PEG tube on hold. She was scheduled to have nuclear medicine gastric emptying scan yesterday, however was scheduled for today. Patient is reported to have vomited this morning and has been rescheduled for tomorrow. 07/20/2024- Scheduled to have nuclear medicine gastric emptying scan today, procedure was unable to be done as patient vomited the isotope and no imaging was obtained. We followed up with CT abdomen which showed findings are consistent with gastric ulcer/localized perforation and severe gastritis. General surgeon Dr. Santana consulted, will evaluate the patient. In the interim, we will start the patient on PPN and get consent for likely TPN 07/21/2024- Still has minimal oral intake. She was evaluated by surgeon Dr. Santana this morning who recommends postpyloric feeding with nasoduodenal/nasojejunal tube and family is agreeable. Will consult IR/GI for possible placement. Otherwise, she is still on PPN and clinical condition has remained stable. 07/22/2024- Nurse and family at bedside states that she is eating a little better, no vomiting. She does report intermittent abdominal pain about 8/10 in severity. Postpyloric feeding tube is yet to be done, will follow-up with GI and surgery on other options for placement. In the interim, we will continue IV albumin, PPN and replete electrolytes. 07/22 NJ tube was placed. Plan: - Continue IV albumin. - Replete electrolytes as needed. ? GI consulted, appreciate recommendations. ? Protonix 40mg BID. ? Maalox as needed. ? Patient on dronabinol - General surgery consulted, appreciate recommendations - continue advancing NJ tube feeds. #ESBL UTI. On admission, UA was positive for 3+ bacteria and 84 WBCs. Although the patient had no complaints, she was started on IV ceftriaxone for prophylaxis. Urine culture returned positive for ESBL UTI sensitive to IV levofloxacin. Plan: -completed IV levofloxacin. #Hx of afib with RVR, rate controlled. Patient was noted to be in A-fib with RVR in ED, was given diltiazem 20 IV x 1, plan was to start patient on diltiazem drip. Patient's heart rate fluctuating in 90s to 110, no rapid ventricular response noted. Patient does have a history of atrial fibrillation, currently on amiodarone 200 twice daily, metoprolol succinate 25 p.o. daily and Eliquis 5 mg twice daily. Patient's last echo 05/16/2024 shows normal LV size and function, EF 55 to 60%, mild LVH stage I diastolic dysfunction. 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 Mild AV Sclerosis without stenosis. Plan: ? Resumed home dose amiodarone 200 twice daily, metoprolol succinate 25 mg p.o. daily. ? Eliquis on hold. ? Telemonitoring. #Diabetes mellitus. Patient has history of diabetes mellitus, last hemoglobin A1c was 6.3. Plan: ? Sliding scale insulin. ? Resumed home dose Lantus 12 units daily. ? Fingerstick blood glucose, blood glucose goal 140-180. ? Hypoglycemia protocol. #ADILSON on hemodialysis MWF-resolved. Patient received dialysis treatment yesterday, reports of allergic rash postdialysis. Received Benadryl BUN and creatinine within normal limits. Patient is now off dialysis Plan: - Dialysis discontinued ? Resume home dose midodrine. Health maintenance: DVT prophylaxis: Lovenox GI prophylaxis: IV Protonix Diet: NJ feeds, rate 20cc/hr. Lines: Peripheral IV Code status: DNR/DNI Plan of care discussed with attending Dr. Curry. Miguel Peraza MD, PGY 2. Disclaimer: This note was dictated by speech recognition. Minor errors in civil celebrant may be present due to voice recognition software. Attending Provider Attestation/Addendum I have examined the patient, reviewed labs and imaging findings, discussed the case with the resident(s), and reviewed entered orders. I agree with the plan of care as outlined in this note, with these additional summaries/recommendations: Patient seen at bedside. No acute overnight events. Patient seen resting comfortably in bed and apparently did have some bites of eggs this morning. Patient had NG tube placed to duodenum yesterday for failure to thrive/malnutrition and was started on artificial nutrition which she appears to be tolerating well. This supports the diagnosis that gastric ulcers likely contributing to patient's failure to thrive, intractable nausea/vomiting, and intermittent abdominal pain. Continue to monitor and record all oral intake for adequate evaluation. We will continue IV Protonix 40 mg twice daily & carafate for gastric ulcer. Previous CT was indicative of possible gastric perforation although does not match clinical findings. Continue as needed Zofran. Continue to hold home Eliquis for atrial fibrillation for now as patient is high risk for life-threatening GI bleed. Continue amiodarone. S/P levofloxacin for urinary tract infection. As needed midodrine for hypotension. Repeat hematology and chemistry panel in AM. Dr. Antoinette MD
--- NOTE | 2024-07-23 13:12 | PD.SURPROG ---
Documentation for date of: 07/23/24 Subjective Subjective Narrative: Tolerating tube feeds at 20cc/hr Exam Vital Signs Temp Pulse Resp BP Pulse Ox O2 Del Method O2 Flow Rate 97.6 F 81 16 99/64 98 Nasal Cannula 2 07/23/24 11:58 07/23/24 12:00 07/23/24 11:58 07/23/24 11:58 07/23/24 07:50 07/23/24 07:50 07/23/24 07:50 Constitutional Constitutional: no acute distress Routine Respiratory Exam Respiratory: Present no resp distress Results Results: Laboratory Laboratory results: results reviewed Assessment & Plan Plan 69F with atrial fibrillation, CHF, peptic ulcer s/p laparotomy for repair of perforated peptic ulcer 05/14, with poor appetite since then remaining hospitalized due to need for nutrition now s/p NG placement past pylorus, tolerating tube feeds Advance as tolerated per RD recs
--- NOTE | 2024-07-23 19:07 | PD.IMPROG ---
Documentation for date of: 07/23/24 Subjective Subjective Interval history: Poor p.o. intake and failure to thrive remains an issue with this patient discussed case with internal medicine team Case management will work and get involved To get the patient to a tertiary center where IR is available for jejunostomy tube placement Exam Vital Signs Temp Pulse Resp BP Pulse Ox O2 Del Method O2 Flow Rate 97.2 F 97 17 152/92 H 100 Nasal Cannula 2 07/23/24 16:00 07/23/24 16:00 07/23/24 16:00 07/23/24 16:00 07/23/24 16:00 07/23/24 16:00 07/23/24 16:00 Objective Labs 07/23/24 05:23 07/23/24 05:23 Labs: Laboratory Results - last 24 hr 07/23/24 05:23 WBC 5.4 RBC 3.46 L Hgb 9.0 L Hct 29.3 L MCV 85 MCH 26.0 MCHC 30.7 L RDW Std Deviation 62.2 H Plt Count 229 Neut % (Auto) 57 Lymph % (Auto) 28 [place] % (Auto) 10 Eos % (Auto) 2 Baso % (Auto) 1 Neut # (Auto) 3.1 Lymph # (Auto) 1.5 [place] # (Auto) 0.5 Eos # (Auto) 0.1 Baso # (Auto) 0.1 Immature Gran # (Auto) 0.12 H Absolute Nucleated RBC 0.00 Immature Gran % 2 H Nucleated RBC % 0 Sodium 139 Potassium 3.3 L D Chloride 105 Carbon Dioxide 24.7 Anion Gap 9 BUN 15 Creatinine 0.9 Estim Creat Clear Calc 6.6 L eGFR > 60 BUN/Creatinine Ratio 17 Glucose 96 Calculated Osmolality 278 Calcium 8.7 Corrected Calcium 9.3 Phosphorus 3.0 Magnesium 1.6 Total Bilirubin 0.7 AST 16 ALT 11 Alkaline Phosphatase 93 Total Protein 5.1 L Albumin 3.3 L Globulin 1.8 L Albumin/Globulin Ratio 1.8 Impressions Impression: Failure to thrive Plan as under HPI Assessment & Plan A&P Narrative # Failure to thrive Plan Case discussed in detail with the ER physician Difficult to put a PEG tube for further management of failure to thrive however will discuss with the family And attempt should be made if they agree To sustain appropriate nutrition for the patient by placement of a PEG tube Other medical problems include 1 end-stage renal disease hemodialysis MWF 2 chronic A-fib on Eliquis 3 status post exploratory laparotomy for perforated gastric ulcer Ramsey's patch and drainage of the subphrenic abscesses by IR drainage Thank you very much for the opportunity to participate in care of this patient Time Spent With Patient Time: Total time spent is greater than 50% in coordination of care (as documented) at patient's floor/unit and/or counseling patient:
--- NOTE | 2024-07-23 19:48 | PD.NEPHPROG ---
Documentation for date of: 07/23/24 Subjective Subjective Interval history: patient is a 69-year-old female with significant past medical history of diabetes mellitus, hypertension, A-fib on Eliquis, ADILSON on hemodialysis, history of gastric ulcers, recent hospitalization in [facility] for perforated gastric ulcer s/p exploratory laparotomy complicated by recurrent abdominal and pelvic abscesses presented from rehab with chief complaint of vomiting. Vomiting is further aggravated by trying to eat, as after taking 2-3 bites she starts vomiting. Denies any fever or chills, headache, chest pain, abdominal pain, any leg swelling. The last hemodialysis and was 1 day ago. During our evaluation, her vitals were stable with soft blood pressure, saturating 92 to 95% on room air. Labs are significant for white count 13.6, hemoglobin 11.8, sodium 139, potassium 4.4, BUN 35, creatinine 1.8, GFR 40, A1c 4.9, corrected calcium 10.2. UA revealed turbid urine, protein 1+, bilirubin 1+, leukocyte esterase positive, WBC 84, bacteria 3+. Chest x-ray significant for mild heart failure pattern. Abdomen/pelvis CT significant for severe gastritis pattern, hyperdense gallbladder with possible pancreatitis. 07/14/2024: The patient was interviewed and examined at the bedside this morning. She reported doing okay. Her vitals were stable with mild tachycardia with heart rate 115. CBC fairly at baseline, chemistry panel revealed sodium 140, potassium 4.3, BUN 38, creatinine 1.7, GFR 32 and corrected calcium 10.2. We will continue to hold off on hemodialysis, and continue to monitor renal panel. 07/15/2024: The patient was interviewed and examined at the bedside this morning along with her son. She reported doing well. She denied any headache, chest pain or SOB, or any leg swelling. Her vitals were fairly stable. CBC at baseline, sodium 141, potassium 3.6, BUN 32, creatinine improving to 1.4, GFR 41, corrected calcium 10.2. We will hold off on hemodialysis, and continue to monitor renal panel. 07/17/2024 doing faily ok. Appetite still low. CR 1.2 Blood sugar 83. Blood pressure 116/89, heart rate 111. Hemoglobin 10.8. Sodium 142, potassium 3, BUN 17, creatinine 1.0, LFTs normal, phosphorus 2.1, magnesium 1.8, albumin 2.4, vitamin D72.9, PTH 66.7 dc dialysis cath in am 07/18/2024 patient currently seen in medical floor. Resting comfortably. LFTs normal. Albumin 2.5. Creatinine markedly improved to 1.0. Potassium 3.2.Patient and family refusing feeding tube. Patient came off dialysis. Pending catheter removal. 07/19/2024 patient currently seen in medical floor. In contact isolation room. Still did not get the dialysis catheter removed. Hopefully can be done today. Replaced all electrolytes. Patient came off dialysis. Appetite still remains poor. Noted family did not want feeding tube. Hemoglobin 10.8, platelets 222. Sodium 138, potassium 3.4, creatinine 0.8, calcium 9.6, phosphorus 1.6, magnesium 1.6, LFTs normal, albumin 2.3, PTH 66.7 07/20/2024 patient currently seen in medical floor. In contact isolation room. Still did not get the dialysis catheter removed. Apparently daughter wanted to hold off for dialysis catheter removal due to edema. Tried to reach the daughter but could not today. Will retry tomorrow. Labs showed creatinine 0.8. Albumin significantly low could be causing third spacing. 07/23/2024 patient currently seen in medical floor. Seems to be more sleepy. Had a long conversation with the daughter yesterday-patient needs to have aggressive physical therapy and needs to improve nutritional support. Albumin is extremely low causing third spacing and edema. Added a low-dose diuretic with albumin. Patient has dialysis catheter removal. Noted patient was started on tube feeds via NG tube. Creatinine 0.9. Review of Systems Review of Systems Narrative Review of Systems: Limited due to her mentation. Denies any chest pain, shortness of breath. Appetite is very poor Exam Vital Signs Temp Pulse Resp BP Pulse Ox O2 Del Method O2 Flow Rate 36.2 C 97 17 152/92 H 100 Nasal Cannula 2 07/23/24 16:00 07/23/24 16:07/23/24 16:07/23/24 16:07/23/24 16:00 07/23/24 16:07/23/24 16:00 Narrative Exam General: No acute distress, patient very sleepy HEENT: Moist mucous membranes, oropharynx clear Neck: Supple, No masses, No JVD CVS: S1S2 Regular rate and rhythm, No murmurs, rubs or gallops Lungs: Clear to auscultation with no accessory use, no wheeze no rhonchi + IJ cath Abd: Soft, NT/ND, +BS, no organomegaly Ext: 2+ edema in the lower extremities Skin: No rash Objective Labs 07/23/24 05:23 07/23/24 05:23 Labs: Laboratory Results - last 24 hr 07/23/24 05:23 WBC 5.4 RBC 3.46 L Hgb 9.0 L Hct 29.3 L MCV 85 MCH 26.0 MCHC 30.7 L RDW Std Deviation 62.2 H Plt Count 229 Neut % (Auto) 57 Lymph % (Auto) 28 [place] % (Auto) 10 Eos % (Auto) 2 Baso % (Auto) 1 Neut # (Auto) 3.1 Lymph # (Auto) 1.5 [place] # (Auto) 0.5 Eos # (Auto) 0.1 Baso # (Auto) 0.1 Immature Gran # (Auto) 0.12 H Absolute Nucleated RBC 0.00 Immature Gran % 2 H Nucleated RBC % 0 Sodium 139 Potassium 3.3 L D Chloride 105 Carbon Dioxide 24.7 Anion Gap 9 BUN 15 Creatinine 0.9 Estim Creat Clear Calc 6.6 L eGFR > 60 BUN/Creatinine Ratio 17 Glucose 96 Calculated Osmolality 278 Calcium 8.7 Corrected Calcium 9.3 Phosphorus 3.0 Magnesium 1.6 Total Bilirubin 0.7 AST 16 ALT 11 Alkaline Phosphatase 93 Total Protein 5.1 L Albumin 3.3 L Globulin 1.8 L Albumin/Globulin Ratio 1.8 Assessment & Plan Additional Assessment & Plan Additional Plan: patient is a 69-year-old female with significant past medical history of diabetes mellitus, hypertension, A-fib on Eliquis, [facility]ILSON on hemodialysis MWF, history of gastric ulcers, recent hospitalization in [facility] for perforated gastric ulcer s/p exploratory laparotomy complicated by recurrent abdominal and pelvic abscesses presented from rehab with chief complaint of vomiting. Nephrology consultation was done for further management of ADILSON on hemodialysis. #ADILSON -- was on hemodialysis MWF, improving Patient had ATN while she was admitted to ICU for soft blood pressure on 05/14/2024. Later she was started on hemodialysis for volume overload and oliguria. Presented with BUN 29, creatinine 1.8 and GFR 30, but within the last 3 months or GFR was worsened, gradually has been improving. 07/23/2024 creatinine 0.9- DCed dialysis catheter. Daughter agreed for diuretics -Avoid nephrotoxic drugs -Renal dose modifications proceed with Lasix/albumin to improve edema. replace potassium, phosphorus -Daily a.m. renal panel #Mild hypercalcemia Likely secondary to immobilization and possible dehydration in the setting of poor oral intake, nausea and vomiting further complicated by aggressive ultrafiltration during hemodialysis -Encouraged oral rehydration Better -Monitor calcium level daily in the a.m. #Gastritis #Dysphagia #Intractable nausea and vomiting #History of gastric ulcers #A-fib with RVR #Diabetes mellitus type II -Management deferred to primary hospitalist team Noted she has NG tube now for tube feeds.
[2024-07-23] MEDS: MELATONIN 3 MG TABLET 6 MG PO (20:26)
[2024-07-24] VITALS (16 sets, daily range): BP systolic 94–136; BP diastolic 63–81; PULSE 72–112; RESP 12–20; TEMP 36.1–36.9; O2SAT 90–98; BMI 33.0; BMI 12.0
[2024-07-24] MEDS: MIDODRINE 5 MG TABLET PO ×2 (05:24→13:30)
[2024-07-24 08:03] LABS: Basophils # (Auto) 0.1 Thou/mm3 (0.0-0.2); Basophils % (Auto) 2 % (0-2.5); Eosinophils # (Auto) 0.2 Thou/mm3 (0.0-0.5); Eosinophils % (Auto) 3 % (0-10); Hemoglobin 9.3 g/dL (12.0-16.0); Immature Granulocytes % (Auto) 2 % (0-0); Immature Granulocytes Auto 0.12 Thou/mm3 (0.00-0.00); Lymphocytes # (Auto) 1.9 Thou/mm3 (1.0-4.8); Lymphocytes % (Auto) 32 % (10-50); Mean Corpuscular Hemoglobin 26.1 pg (25.0-35.0); Mean Corpuscular Volume 87 fL (80-100); Monocytes # (Auto) 0.6 Thou/mm3 (0.0-0.8); Monocytes % (Auto) 10 % (0-12); Neutrophils # (Auto) 3.2 Thou/mm3 (1.8-7.7); Neutrophils % (Auto) 52 % (37-80); Nucleated Red Blood Cell % 0 /100 WBC (0); Platelet Count 243 Thou/mm3 (140-440); RDW Standard Deviation 64.9 fL (36.4-46.3); Red Blood Count 3.57 Miln/mm3 (4.00-5.20); White Blood Count 6.1 Thou/mm3 (3.6-11.0)
[2024-07-24] MEDS: AMIODARONE HCL 200 MG TABLET PO ×2 (08:27→20:27)
[2024-07-24] MEDS: METOPROLOL SUCCINATE XL 25 MG TABCR PO (08:27)
[2024-07-24] MEDS: THIAMINE INJ 100 MG/ML VIAL 2 ML IVP (08:28)
[2024-07-24] MEDS: SUCRALFATE SUSP 1 GM/10 ML UDC PO ×3 (08:28→17:29)
[2024-07-24] MEDS: PANTOPRAZOLE INJ 40 MG VIAL IVP ×2 (08:28→20:27)
[2024-07-24] MEDS: FUROSEMIDE INJ 10 MG/ML VIAL 2 ML 20 MG IVP (08:29)
[2024-07-24] MEDS: ENOXAPARIN SOD INJ 40 MG/0.4 ML SYRINGE SC (08:29)
[2024-07-24 08:55] LABS: Alanine Aminotransferase 11 U/L (10-49); Albumin, Serum 3.5 gm/dL (3.4-4.8); Albumin/Globulin Ratio 1.9 (1.2-2.2); Anion Gap 8 (7-16); Aspartate Amino Transferase 19 U/L (0-34); BUN/Creatinine Ratio 16 Ratio (12-20); Bilirubin,Total 0.7 mg/dL (0.3-1.2); Blood Urea Nitrogen 14 mg/dL (9-23); Calcium (Corrected) 9.4 mg/dL (8.5-10.1); Carbon Dioxide 25.8 mMol/L (20.0-31.0); Chloride 105 mMol/L (98-107); Creatinine (Component) 0.9 mg/dL (0.6-1.3); Estimated Creatinine Clearance 52.5 mL/min (>60); Globulin 1.8 gm/dL (2.3-3.5); Glucose 116 mg/dL (74-106); Osmolality,Calculated 279 (275-295); Potassium 3.2 mMol/L (3.4-5.1); Sodium 139 mMol/L (136-145); Total Protein 5.3 gm/dL (5.7-8.2); eGFR > 60 See Note
[2024-07-24 08:56] LABS: Alkaline Phosphatase 126 U/L (46-116)
[2024-07-24] MEDS: droNABinol 2.5 MG CAPSULE 10 MG PO ×2 (10:34→17:29)
[2024-07-24] MEDS: POTASSIUM CHLORIDE 10% 20 MEQ/15 ML UDC 40 MEQ GT (10:35)
--- NOTE | 2024-07-24 13:29 | PD.NEPHPROG ---
Documentation for date of: 07/24/24 Subjective Subjective Interval history: patient is a 69-year-old female with significant past medical history of diabetes mellitus, hypertension, A-fib on Eliquis, ADILSON on hemodialysis, history of gastric ulcers, recent hospitalization in [facility] for perforated gastric ulcer s/p exploratory laparotomy complicated by recurrent abdominal and pelvic abscesses presented from rehab with chief complaint of vomiting. Vomiting is further aggravated by trying to eat, as after taking 2-3 bites she starts vomiting. Denies any fever or chills, headache, chest pain, abdominal pain, any leg swelling. The last hemodialysis and was 1 day ago. During our evaluation, her vitals were stable with soft blood pressure, saturating 92 to 95% on room air. Labs are significant for white count 13.6, hemoglobin 11.8, sodium 139, potassium 4.4, BUN 35, creatinine 1.8, GFR 40, A1c 4.9, corrected calcium 10.2. UA revealed turbid urine, protein 1+, bilirubin 1+, leukocyte esterase positive, WBC 84, bacteria 3+. Chest x-ray significant for mild heart failure pattern. Abdomen/pelvis CT significant for severe gastritis pattern, hyperdense gallbladder with possible pancreatitis. 07/14/2024: The patient was interviewed and examined at the bedside this morning. She reported doing okay. Her vitals were stable with mild tachycardia with heart rate 115. CBC fairly at baseline, chemistry panel revealed sodium 140, potassium 4.3, BUN 38, creatinine 1.7, GFR 32 and corrected calcium 10.2. We will continue to hold off on hemodialysis, and continue to monitor renal panel. 07/15/2024: The patient was interviewed and examined at the bedside this morning along with her son. She reported doing well. She denied any headache, chest pain or SOB, or any leg swelling. Her vitals were fairly stable. CBC at baseline, sodium 141, potassium 3.6, BUN 32, creatinine improving to 1.4, GFR 41, corrected calcium 10.2. We will hold off on hemodialysis, and continue to monitor renal panel. 07/17/2024 doing faily ok. Appetite still low. CR 1.2 Blood sugar 83. Blood pressure 116/89, heart rate 111. Hemoglobin 10.8. Sodium 142, potassium 3, BUN 17, creatinine 1.0, LFTs normal, phosphorus 2.1, magnesium 1.8, albumin 2.4, vitamin D72.9, PTH 66.7 dc dialysis cath in am 07/18/2024 patient currently seen in medical floor. Resting comfortably. LFTs normal. Albumin 2.5. Creatinine markedly improved to 1.0. Potassium 3.2.Patient and family refusing feeding tube. Patient came off dialysis. Pending catheter removal. 07/19/2024 patient currently seen in medical floor. In contact isolation room. Still did not get the dialysis catheter removed. Hopefully can be done today. Replaced all electrolytes. Patient came off dialysis. Appetite still remains poor. Noted family did not want feeding tube. Hemoglobin 10.8, platelets 222. Sodium 138, potassium 3.4, creatinine 0.8, calcium 9.6, phosphorus 1.6, magnesium 1.6, LFTs normal, albumin 2.3, PTH 66.7 07/20/2024 patient currently seen in medical floor. In contact isolation room. Still did not get the dialysis catheter removed. Apparently daughter wanted to hold off for dialysis catheter removal due to edema. Tried to reach the daughter but could not today. Will retry tomorrow. Labs showed creatinine 0.8. Albumin significantly low could be causing third spacing. 07/24/2024 patient currently seen in medical floor. Seems to be more sleepy. Had a long conversation with the daughter yesterday-patient needs to have aggressive physical therapy and needs to improve nutritional support. Albumin is extremely low causing third spacing and edema. Added a low-dose diuretic. Patient had dialysis catheter removal. Noted patient was started on tube feeds via NG tube. Creatinine 0.9. Review of Systems Review of Systems Narrative Review of Systems: Limited due to her mentation. Denies any chest pain, shortness of breath. Appetite is very poor Exam Vital Signs Temp Pulse Resp BP Pulse Ox O2 Del Method O2 Flow Rate 36.5 C 101 H 16 100/77 93 L Room Air 2 07/24/24 12:07/24/24 12:07/24/24 12:07/24/24 12:07/24/24 12:07/24/24 12:07/24/24 07:30 Narrative Exam General: No acute distress, patient very sleepy HEENT: Moist mucous membranes, oropharynx clear Neck: Supple, No masses, No JVD CVS: S1S2 Regular rate and rhythm, No murmurs, rubs or gallops Lungs: Clear to auscultation with no accessory use, no wheeze no rhonchi Abd: Soft, NT/ND, +BS, no organomegaly Ext: 1+ edema in the lower extremities Skin: No rash Objective Labs 07/24/24 07:49 07/24/24 07:49 Labs: Laboratory Results - last 24 hr 07/24/24 07:49 WBC 6.1 RBC 3.57 L Hgb 9.3 L Hct 31.0 L MCV 87 MCH 26.1 MCHC 30.0 L RDW Std Deviation 64.9 H Plt Count 243 Neut % (Auto) 52 Lymph % (Auto) 32 [place] % (Auto) 10 Eos % (Auto) 3 Baso % (Auto) 2 Neut # (Auto) 3.2 Lymph # (Auto) 1.9 [place] # (Auto) 0.6 Eos # (Auto) 0.2 Baso # (Auto) 0.1 Immature Gran # (Auto) 0.12 H Absolute Nucleated RBC 0.00 Immature Gran % 2 H Nucleated RBC % 0 Sodium 139 Potassium 3.2 L Chloride 105 Carbon Dioxide 25.8 Anion Gap 8 BUN 14 Creatinine 0.9 Estim Creat Clear Calc 52.5 L eGFR > 60 BUN/Creatinine Ratio 16 Glucose 116 H Calculated Osmolality 279 Calcium 9.0 Corrected Calcium 9.4 Total Bilirubin 0.7 AST 19 ALT 11 Alkaline Phosphatase 126 H D Total Protein 5.3 L Albumin 3.5 Globulin 1.8 L Albumin/Globulin Ratio 1.9 Assessment & Plan Additional Assessment & Plan Additional Plan: patient is a 69-year-old female with significant past medical history of diabetes mellitus, hypertension, A-fib on Eliquis, ADILSON on hemodialysis MWF, history of gastric ulcers, recent hospitalization in [facility] for perforated gastric ulcer s/p exploratory laparotomy complicated by recurrent abdominal and pelvic abscesses presented from rehab with chief complaint of vomiting. Nephrology consultation was done for further management of ADILSON on hemodialysis. #ADILSON -- was on hemodialysis MWF, improving Patient had ATN while she was admitted to ICU for soft blood pressure on 05/14/2024. Later she was started on hemodialysis for volume overload and oliguria. Presented with BUN 29, creatinine 1.8 and GFR 30, but within the last 3 months or GFR was worsened, gradually has been improving. 07/24/2024 creatinine 0.9- DCed dialysis catheter. Daughter agreed for diuretics -Avoid nephrotoxic drugs -Renal dose modifications proceed with Lasix to improve edema. replace potassium, phosphorus -Daily a.m. renal panel #Mild hypercalcemia Likely secondary to immobilization and possible dehydration in the setting of poor oral intake, nausea and vomiting further complicated by aggressive ultrafiltration during hemodialysis -Encouraged oral rehydration Better -Monitor calcium level daily in the a.m. #Gastritis #Dysphagia #Intractable nausea and vomiting #History of gastric ulcers #A-fib with RVR #Diabetes mellitus type II -Management deferred to primary hospitalist team Noted she has NG tube now for tube feeds. Quality - progress note Quality Measures Quality Measures: VTE prophylaxis Reason for Continued Stay Reason for Continued Stay: further monitoring
--- NOTE | 2024-07-24 14:07 | ESPR_ITS ---
Documentation for date of: 07/24/24 Subjective Subjective Interval history: Patient seen at bedside. No acute overnight events. She complains of some abdominal pain today, nurse at bedside also reports 4 large bowel movements, watery/loose. Tube feeds now at goal, no nausea or vomiting. Labs reviewed, hypokalemia 3.2, will replete. Albumin within normal limits today. Will touch base with GI and general surgery and anticipate discharge within the next 24 to 48 hours. Exam Vital Signs Temp Pulse Resp BP Pulse Ox O2 Del Method O2 Flow Rate 97.7 F 112 H 16 100/77 93 L Room Air 2 07/24/24 12:00 07/24/24 13:30 07/24/24 12:00 07/24/24 13:30 07/24/24 12:00 07/24/24 12:00 07/24/24 07:30 Narrative Exam GENERAL: AAOX3 NEURO: PULMONARY PHYSICAL THERAPIST grossly intact, moves extremities x4 HEENT: Moist mucosa. Eyes open, symmetrical, & clear CARDIO: No chest pain on palpation. Heart RRR, no obvious murmurs PULM: No noted coughing/dyspnea. Lungs CTA B/L GI: Abdomen soft, nondistended, no pain on palpation. BSx4. Nasoduodenal tube in-situ URO/AGRICULTURAL EQUIPMENT MECHANIC:: No further abnormalities noted. SKIN/MSK/EXT: Bilateral pitting edema- resolving Objective Labs 07/24/24 07:49 07/25/24 14:36 Labs: Laboratory Results - last 24 hr 07/24/24 07:49 WBC 6.1 RBC 3.57 L Hgb 9.3 L Hct 31.0 L MCV 87 MCH 26.1 MCHC 30.0 L RDW Std Deviation 64.9 H Plt Count 243 Neut % (Auto) 52 Lymph % (Auto) 32 Mills % (Auto) 10 Eos % (Auto) 3 Baso % (Auto) 2 Neut # (Auto) 3.2 Lymph # (Auto) 1.9 Mills # (Auto) 0.6 Eos # (Auto) 0.2 Baso # (Auto) 0.1 Immature Gran # (Auto) 0.12 H Absolute Nucleated RBC 0.00 Immature Gran % 2 H Nucleated RBC % 0 Sodium 139 Potassium 3.2 L Chloride 105 Carbon Dioxide 25.8 Anion Gap 8 BUN 14 Creatinine 0.9 Estim Creat Clear Calc 52.5 L eGFR > 60 BUN/Creatinine Ratio 16 Glucose 116 H Calculated Osmolality 279 Calcium 9.0 Corrected Calcium 9.4 Total Bilirubin 0.7 AST 19 ALT 11 Alkaline Phosphatase 126 H D Total Protein 5.3 L Albumin 3.5 Globulin 1.8 L Albumin/Globulin Ratio 1.9 Quality Measures Quality Measures VTE prophylaxis Advance care planning discussed with:: other Assessment & Plan Assessment Current Active Medications: Generic Name Dose Route Start Last Admin Trade Name Freq PRN Reason Stop Dose Admin Acetaminophen 650 mg 07/23/24 00:02 Acetaminophen 325 Mg Tablet PO 08/11/24 20:32 Q6H PRN Pain 1-3 Or Fever > 101 Hydrocodone Bitart/Acetaminophen 1 tab 07/22/24 23:26 07/23/24 01:03 Hydrocodone/Apap 5/325 Tablet PO 07/27/24 23:25 1 tab Q8H PRN Administration PAIN SCALE 4-10(Mod-Sev Al Hydrox/Mg Hydrox/Simethicone 30 ml 07/12/24 20:51 Mg Hyd/Al Hyd/Ronald (Maalox Reg) Susp 30 Ml Udc PO 08/11/24 20:50 QID PRN UPSET STOMACH/INDIGESTION Albuterol/Ipratropium 3 ml 07/20/24 00:09 07/21/24 03:50 Albuterol/Ipratropium (Duoneb) Rt Jimena 3 Ml Nebu INH 08/19/24 00:08 3 ml Q6HRRT PRN Administration SHORTNESS OF BREATH OR WHEEZE Amiodarone HCl 200 mg 07/12/24 21:00 07/24/24 08:27 Amiodarone Hcl 200 Mg Tablet PO 08/11/24 20:59 200 mg BID ANGELICA Administration Dextrose 50 ml 07/12/24 21:11 07/18/24 17:21 Dextrose 50%-Water Inj 50 Ml Syringe IV 08/11/24 21:10 50 ml Q15MIN PRN Administration BG <50 OR BG <70 & pt unresponsive Dronabinol 10 mg 07/13/24 07:30 07/24/24 10:34 Dronabinol 2.5 Mg Capsule PO 08/12/24 07:29 10 mg BIDAC ANGELICA Administration Enoxaparin Sodium 40 mg 07/20/24 15:45 07/24/24 08:29 Enoxaparin Sod Inj 40 Mg/0.4 Ml Syringe SC 08/03/24 15:44 40 mg QDAY ANGELICA Administration Furosemide 20 mg 07/21/24 09:00 07/24/24 08:29 Furosemide Inj 10 Mg/Ml Vial 2 Ml IVP 08/20/24 08:59 20 mg QDAY ANGELICA Administration Glucagon 1 mg 07/12/24 21:11 Glucagon Inj 1 Mg Vial IM Q15MIN PRN BG <70, and no IV access Insulin Human Lispro 0 unit 07/20/24 06:00 07/24/24 13:29 Insulin Lispro (Admelog) 1 Unit/0.01 Ml Unit SC 08/19/24 05:59 Not Given Q6HR ANGELICA Protocol Melatonin 6 mg 07/19/24 21:00 07/23/24 20:26 Melatonin 3 Mg Tablet PO 08/18/24 20:59 6 mg HS ANGELICA Administration Metoprolol Succinate 25 mg 07/13/24 09:00 07/24/24 08:27 Metoprolol Succinate Xl 25 Mg Tabcr PO 08/12/24 08:59 25 mg QDAY ANGELICA Administration Midodrine 5 mg 07/12/24 22:00 07/24/24 13:30 Midodrine 5 Mg Tablet PO 08/11/24 21:59 5 mg TID ANGELICA Administration Ondansetron HCl 4 mg 07/12/24 20:33 07/17/24 11:02 Ondansetron Inj 2 Mg/Ml Inj 2 Ml IV 08/11/24 20:32 4 mg Q6H PRN Administration NAUSEA OR VOMITING Protocol Pantoprazole Sodium 40 mg 07/13/24 09:30 07/24/24 08:28 Pantoprazole Inj 40 Mg Vial IVP 08/12/24 09:29 40 mg BID ANGELICA Administration Pharmacy Consult 1 each 07/20/24 15:56 Pha To Consult Parenteral Nutr 1 Each Each XX 08/19/24 15:55 PRN PRN CONSULT Sennosides 1 tab 07/12/24 20:44 Senna Tablet PO 08/11/24 20:43 QDAY PRN CONSTIPATION Protocol Sucralfate 1 gm 07/13/24 11:30 07/24/24 13:30 Sucralfate Susp 1 Gm/10 Ml Udc PO 08/12/24 11:29 1 gm AC ANGELICA Administration Thiamine HCl 100 mg 07/21/24 11:30 07/24/24 08:28 Thiamine Inj 100 Mg/Ml Vial 2 Ml IVP 07/27/24 11:29 100 mg QDAY ANGELICA Administration Plan Summary: The patient is a 69-year-old female with past medical history of diabetes mellitus, hypertension, atrial fibrillation on Eliquis, end-stage renal disease on hemodialysis (MWF), history of gastric ulcers, recent hospitalization [facility] for perforated gastric ulcer status post exploratory laparotomy complicated by recurrent abdominal and pelvic abscesses who presented from rehab with a chief complaint of vomiting. Patient admitted to hospital for further workup for dysphagia poor p.o. intake and possible intervention for adequate nutrition. #Failure to thrive. #Protein Calorie Malnutrition #Nausea and vomiting. #History of gastric ulcers. #Severe gastritis, unspecified. #History of ex lap- recurrent abdominal abscess #?Gastric perforation #Hypophosphatemia, resolved. #Hypokalemia #s/p NJ tube placement. Per patient's daughter on claim review medical director of halfway home patient has significantly poor p.o. intake, takes only 2-3 bites, unable to maintain a normal appetite. Patient does complain of mild epigastric pain, patient does have history of gastric ulcers recently was admitted to hospital for complicated perforated gastric ulcer. Patient is able to take a few bites but GI Dr. Christianson was consulted, will possibly plan patient for PEG tube if family consents. 07/16/2024- Per nurse this morning, the patient had 1 episode of vomiting after she tried to give her some juice due to hypoglycemia. Labs were reviewed and potassium was attempted to be repleted, but patient had another episode of vomiting. Family still wanting to hold off on PEG tube placement, will touch base with them again as patient is unable to tolerate oral intake at this time 07/17/2024: Pt continues to have nausea with eating, including taking pills. Pt and family will have to make decision with goals of care including PEG tube at this time. 07/19/2024: Patient's family still keeping PEG tube on hold. She was scheduled to have nuclear medicine gastric emptying scan yesterday, however was scheduled for today. Patient is reported to have vomited this morning and has been rescheduled for tomorrow. 07/20/2024- Scheduled to have nuclear medicine gastric emptying scan today, procedure was unable to be done as patient vomited the isotope and no imaging was obtained. We followed up with CT abdomen which showed findings are consistent with gastric ulcer/localized perforation and severe gastritis. General surgeon Dr. Santana consulted, will evaluate the patient. In the interim, we will start the patient on PPN and get consent for likely TPN 07/21/2024- Still has minimal oral intake. She was evaluated by surgeon Dr. Santana this morning who recommends postpyloric feeding with nasoduodenal/nasojejunal tube and family is agreeable. Will consult IR/GI for possible placement. Otherwise, she is still on PPN and clinical condition has remained stable. 07/22/2024- Nurse and family at bedside states that she is eating a little better, no vomiting. She does report intermittent abdominal pain about 8/10 in severity. Postpyloric feeding tube is yet to be done, will follow-up with GI and surgery on other options for placement. In the interim, we will continue IV albumin, PPN and replete electrolytes. 07/24/2024- She complains of some abdominal pain today, nurse at bedside also reports 4 large bowel movements, watery/loose. Tube feeds now at goal, no nausea or vomiting. Labs reviewed, hypokalemia 3.2, will replete. Albumin within normal limits today. Plan: - Replete electrolytes as needed. ? GI consulted, appreciate recommendations. ? Protonix 40mg BID. ? Maalox as needed. ? Patient on dronabinol - General surgery consulted, appreciate recommendations #ESBL UTI- treated On admission, UA was positive for 3+ bacteria and 84 WBCs. Although the patient had no complaints, she was started on IV ceftriaxone for prophylaxis. Urine culture returned positive for ESBL UTI sensitive to IV levofloxacin. Completed a course of IV Levofloxacin #Hx of afib with RVR, rate controlled. Patient was noted to be in A-fib with RVR in ED, was given diltiazem 20 IV x 1, plan was to start patient on diltiazem drip. Patient's heart rate fluctuating in 90s to 110, no rapid ventricular response noted. Patient does have a history of atrial fibrillation, currently on amiodarone 200 twice daily, metoprolol succinate 25 p.o. daily and Eliquis 5 mg twice daily. Patient's last echo 05/16/2024 shows normal LV size and function, EF 55 to 60%, mild LVH stage I diastolic dysfunction. 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 Mild AV Sclerosis without stenosis. Plan: ? Resumed home dose amiodarone 200 twice daily, metoprolol succinate 25 mg p.o. daily. ? Eliquis on hold. ? Telemonitoring. #Diabetes mellitus. Patient has history of diabetes mellitus, last hemoglobin A1c was 6.3. Plan: ? Sliding scale insulin. ? Resumed home dose Lantus 12 units daily. ? Fingerstick blood glucose, blood glucose goal 140-180. ? Hypoglycemia protocol. #ADILSON on hemodialysis MWF-resolved. Patient received dialysis treatment yesterday, reports of allergic rash postdialysis. Received Benadryl BUN and creatinine within normal limits. Patient is now off dialysis Plan: - Dialysis discontinued ? Resume home dose midodrine. Health maintenance: DVT prophylaxis: Lovenox GI prophylaxis: IV Protonix Diet: ND feeds, rate 38cc/hr. Lines: Peripheral IV Code status: DNR/DNI Case was discussed with Dr Robertson PGY-2 and attending physician, Dr Antoinette Stanley MD PGY-1 Disclaimer: This note was dictated by speech recognition. Minor errors in management accounts manager may be present due to voice recognition software. LPatient examined and case discussed with the team including attending physician. Note reviewed, I agree with the care plan as documented. Patient admitted after gastric surgery, CT abdomen shows possible gastric perforation. GI following, recommend NJ tube. IR consulted, but unable to place a jejunal tube. General surgery Dr Santana consulted for further recommendations, counseled the family. Dr Christianson will consult tertiary centers for NJ tube placement, will follow up. Greatly appreciate Dr Christianson's input. Plan: Patient is tolerating TF but has some abdominal discomfort. Continue TF via NJ tube. Discussed with SNF PCP Dr Yang , who requested to talk to Dr Christianson to discuss prognosis and DC plan. - Bharath Robertson MD, PGY 2 Disclaimer: The document below may not be free of grammatical/phonetic/typographic errors due to use of voice recognition software. This does not dissuade from the commitment to providing health care with the patient's best interest in mind. L Attending Provider Attestation/Addendum I have examined the patient, reviewed labs and imaging findings, discussed the case with the resident(s), and reviewed entered orders. I agree with the plan of care as outlined in this note, with these additional summaries/recommendations: Patient seen at bedside. No acute overnight events. Patient seen resting in bed. Patient seen talking her crushed morning am pills and endorses immediate abdominal pain after intake. Patient had NG tube placed to duodenum yesterday for failure to thrive/malnutrition and was started on artificial nutrition which she appears to be tolerating well. This supports the diagnosis that gastric ulcer likely contributing to patient's failure to thrive, intractable nausea/vomiting, and intermittent abdominal pain. Continue to monitor and record all oral intake for adequate evaluation. We will continue IV Protonix 40 mg twice daily & carafate for gastric ulcer. Family has previously denied PEG tube and discussed half-way nutrition goals with family. Previous CT was indicative of possible gastric perforation although does not match clinical findings. Continue as needed Zofran. Continue to hold home Eliquis for atrial fibrillation for now as patient is high risk for life-threatening GI bleed. Continue amiodarone. S/P levofloxacin for urinary tract infection. As needed midodrine for hypotension. Repeat hematology and chemistry panel in AM. Dr. Antoinette MD
--- NOTE | 2024-07-24 18:10 | PC.NURSE ---
TC to MD Griffith) to let them know about pt's diarrhea and frequent stools. stated to continue to monitor, believes it is related to the fact that the pt has not been eating well for a while.
[2024-07-24] MEDS: MELATONIN 3 MG TABLET 6 MG PO (20:27)
[2024-07-24] MEDS: ONDANSETRON INJ 2 MG/ML INJ 2 ML 4 MG IV (20:35)
[2024-07-25] VITALS (17 sets, daily range): BP systolic 94–119; BP diastolic 53–80; PULSE 73–959; RESP 16–94; TEMP 36.3–36.9; O2SAT 91–99; BMI 12.0
[2024-07-25] MEDS: METOPROLOL SUCCINATE XL 25 MG TABCR PO (08:11)
[2024-07-25] MEDS: SUCRALFATE SUSP 1 GM/10 ML UDC PO ×3 (08:12→17:46)
[2024-07-25] MEDS: PANTOPRAZOLE INJ 40 MG VIAL IVP ×2 (08:12→21:50)
[2024-07-25] MEDS: AMIODARONE HCL 200 MG TABLET PO ×2 (08:12→21:59)
[2024-07-25] MEDS: THIAMINE INJ 100 MG/ML VIAL 2 ML IVP (08:13)
[2024-07-25] MEDS: FUROSEMIDE INJ 10 MG/ML VIAL 2 ML 20 MG IVP (08:13)
[2024-07-25] MEDS: ENOXAPARIN SOD INJ 40 MG/0.4 ML SYRINGE SC (08:44)
[2024-07-25 09:16] LABS: Albumin, Serum 3.3 gm/dL (3.4-4.8); Anion Gap 7 (7-16); BUN/Creatinine Ratio 21 Ratio (12-20); Blood Urea Nitrogen 19 mg/dL (9-23); Calcium (Corrected) 9.6 mg/dL (8.5-10.1); Carbon Dioxide 26.6 mMol/L (20.0-31.0); Chloride 105 mMol/L (98-107); Creatinine (Component) 0.9 mg/dL (0.6-1.3); Estimated Creatinine Clearance 52.5 mL/min (>60); Glucose 125 mg/dL (74-106); Magnesium 1.4 mg/dL (1.6-2.6); Osmolality,Calculated 280 (275-295); Potassium 3.4 mMol/L (3.4-5.1); Sodium 139 mMol/L (136-145); eGFR > 60 See Note
[2024-07-25 09:18] LABS: Phosphorous 0.9 mg/dL (2.4-5.1)
[2024-07-25] MEDS: droNABinol 2.5 MG CAPSULE 10 MG PO ×2 (10:16→17:38)
[2024-07-25] MEDS: NAPH,KPH MBDB 1 PACKET (1.5 GM) 2 PACKET NG (10:16)
[2024-07-25] MEDS: Magnesium Sulfate 4 GM Ivpb 4 GM/50 ML BAG IV (10:16)
[2024-07-25] MEDS: POT PHOS 15 mMol in NS 250 ML 15 MMOL/250 ML BAG 62.5 MMOL IV ×2 (10:30→15:16)
--- NOTE | 2024-07-25 13:24 | PC.SS ---
Addendum entered by Genet Andrews 07/25/24 16:24: SS spoke to Jennifer @ [facility] and their facility will need to know what the plan is with patient feeding tube. Original Note: Follow up note: SS spoke to daughter, Debbie, who confirmed they now would like patient to d/c to SNF. Preference is either [facility] or [facility]. SS will start process. Patient no longer needs dialysis.
--- NOTE | 2024-07-25 13:53 | PD.NEPHPROG ---
Documentation for date of: 07/25/24 Subjective Subjective Interval history: patient is a 69-year-old female with significant past medical history of diabetes mellitus, hypertension, A-fib on Eliquis, ADILSON on hemodialysis, history of gastric ulcers, recent hospitalization in [facility] for perforated gastric ulcer s/p exploratory laparotomy complicated by recurrent abdominal and pelvic abscesses presented from rehab with chief complaint of vomiting. Vomiting is further aggravated by trying to eat, as after taking 2-3 bites she starts vomiting. Denies any fever or chills, headache, chest pain, abdominal pain, any leg swelling. The last hemodialysis and was 1 day ago. During our evaluation, her vitals were stable with soft blood pressure, saturating 92 to 95% on room air. Labs are significant for white count 13.6, hemoglobin 11.8, sodium 139, potassium 4.4, BUN 35, creatinine 1.8, GFR 40, A1c 4.9, corrected calcium 10.2. UA revealed turbid urine, protein 1+, bilirubin 1+, leukocyte esterase positive, WBC 84, bacteria 3+. Chest x-ray significant for mild heart failure pattern. Abdomen/pelvis CT significant for severe gastritis pattern, hyperdense gallbladder with possible pancreatitis. 07/14/2024: The patient was interviewed and examined at the bedside this morning. She reported doing okay. Her vitals were stable with mild tachycardia with heart rate 115. CBC fairly at baseline, chemistry panel revealed sodium 140, potassium 4.3, BUN 38, creatinine 1.7, GFR 32 and corrected calcium 10.2. We will continue to hold off on hemodialysis, and continue to monitor renal panel. 07/15/2024: The patient was interviewed and examined at the bedside this morning along with her son. She reported doing well. She denied any headache, chest pain or SOB, or any leg swelling. Her vitals were fairly stable. CBC at baseline, sodium 141, potassium 3.6, BUN 32, creatinine improving to 1.4, GFR 41, corrected calcium 10.2. We will hold off on hemodialysis, and continue to monitor renal panel. 07/17/2024 doing faily ok. Appetite still low. CR 1.2 Blood sugar 83. Blood pressure 116/89, heart rate 111. Hemoglobin 10.8. Sodium 142, potassium 3, BUN 17, creatinine 1.0, LFTs normal, phosphorus 2.1, magnesium 1.8, albumin 2.4, vitamin D72.9, PTH 66.7 dc dialysis cath in am 07/18/2024 patient currently seen in medical floor. Resting comfortably. LFTs normal. Albumin 2.5. Creatinine markedly improved to 1.0. Potassium 3.2.Patient and family refusing feeding tube. Patient came off dialysis. Pending catheter removal. 07/19/2024 patient currently seen in medical floor. In contact isolation room. Still did not get the dialysis catheter removed. Hopefully can be done today. Replaced all electrolytes. Patient came off dialysis. Appetite still remains poor. Noted family did not want feeding tube. Hemoglobin 10.8, platelets 222. Sodium 138, potassium 3.4, creatinine 0.8, calcium 9.6, phosphorus 1.6, magnesium 1.6, LFTs normal, albumin 2.3, PTH 66.7 07/20/2024 patient currently seen in medical floor. In contact isolation room. Still did not get the dialysis catheter removed. Apparently daughter wanted to hold off for dialysis catheter removal due to edema. Tried to reach the daughter but could not today. Will retry tomorrow. Labs showed creatinine 0.8. Albumin significantly low could be causing third spacing. 07/25/2024 patient currently seen in medical floor. Seems to be more sleepy. Had a long conversation with the daughter yesterday-patient needs to have aggressive physical therapy and needs to improve nutritional support. Albumin is extremely low causing third spacing and edema. Added a low-dose diuretic. Patient had dialysis catheter removal. Noted patient was started on tube feeds via NG tube. Creatinine 0.9. Patient might be transferred to [facility] for jejunostomy tube placement per Dr. Christianson. Review of Systems Review of Systems Narrative Review of Systems: Limited due to her mentation. Denies any chest pain, shortness of breath. Appetite is very poor Exam Vital Signs Temp Pulse Resp BP Pulse Ox O2 Del Method O2 Flow Rate 36.5 C 94 26 H 98/75 92 L Room Air 2 07/25/24 12:00 07/25/24 12:00 07/25/24 12:07/25/24 12:07/25/24 12:00 07/25/24 12:07/25/24 00:55 Narrative Exam General: No acute distress, patient very sleepy HEENT: Moist mucous membranes, oropharynx clear Neck: Supple, No masses, No JVD CVS: S1S2 Regular rate and rhythm, No murmurs, rubs or gallops Lungs: Clear to auscultation with no accessory use, no wheeze no rhonchi Abd: Soft, NT/ND, +BS, no organomegaly Ext: 1+ edema in the lower extremities Skin: No rash Objective Labs 07/26/24 05:30 07/26/24 05:30 Labs: Laboratory Results - last 24 hr 07/25/24 08:00 Sodium 139 Potassium 3.4 Chloride 105 Carbon Dioxide 26.6 Anion Gap 7 BUN 19 Creatinine 0.9 Estim Creat Clear Calc 52.5 L eGFR > 60 BUN/Creatinine Ratio 21 H Glucose 125 H Calculated Osmolality 280 Calcium 9.0 Corrected Calcium 9.6 Phosphorus 0.9 L* Magnesium 1.4 L Albumin 3.3 L Assessment & Plan Additional Assessment & Plan Additional Plan: patient is a 69-year-old female with significant past medical history of diabetes mellitus, hypertension, A-fib on Eliquis, ADILSON on hemodialysis MWF, history of gastric ulcers, recent hospitalization in [facility] for perforated gastric ulcer s/p exploratory laparotomy complicated by recurrent abdominal and pelvic abscesses presented from rehab with chief complaint of vomiting. Nephrology consultation was done for further management of ADILSON on hemodialysis. #ADILSON -- was on hemodialysis MWF, improving Patient had ATN while she was admitted to ICU for soft blood pressure on 05/14/2024. Later she was started on hemodialysis for volume overload and oliguria. Presented with BUN 29, creatinine 1.8 and GFR 30, but within the last 3 months or GFR was worsened, gradually has been improving. 07/24/2024 creatinine 0.9- DCed dialysis catheter. Daughter agreed for diuretics -Avoid nephrotoxic drugs -Renal dose modifications proceed with Lasix to improve edema. replace potassium, phosphorus -Daily a.m. renal panel #Mild hypercalcemia Likely secondary to immobilization and possible dehydration in the setting of poor oral intake, nausea and vomiting further complicated by aggressive ultrafiltration during hemodialysis -Encouraged oral rehydration Better -Monitor calcium level daily in the a.m. #Gastritis #Dysphagia #Intractable nausea and vomiting #History of gastric ulcers #A-fib with RVR #Diabetes mellitus type II -Management deferred to primary hospitalist team Noted she has NG tube now for tube feeds. Quality - progress note Quality Measures Quality Measures: VTE prophylaxis Reason for Continued Stay Reason for Continued Stay: further monitoring
[2024-07-25] MEDS: MIDODRINE 5 MG TABLET PO ×2 (13:56→21:57)
--- NOTE | 2024-07-25 14:32 | PD.RESPRO ---
Documentation for date of: 07/25/24 Subjective Subjective Interval history: Patient seen at bedside. No acute overnight events. The patient is seems to be tolerating tube feeds, denies abdominal pain today, no nausea or vomiting. She did have a couple episodes of diarrhea, probably due to new feeds. On examination, abdomen is soft and nontender to palpation. Labs reviewed, hypophosphatemia and hypomagnesemia. Pending GI and surgery recommendations on disposition per tube feeds/nutrition. Exam Vital Signs Temp Pulse Resp BP Pulse Ox O2 Del Method O2 Flow Rate 97.7 F 91 26 H 94/61 92 L Room Air 2 07/25/24 12:00 07/25/24 13:56 07/25/24 12:00 07/25/24 13:56 07/25/24 12:00 07/25/24 12:00 07/25/24 00:55 Narrative Exam GENERAL: AAOX3 NEURO: HOSPITAL PLAN ADMINISTRATOR grossly intact, moves extremities x4 HEENT: Moist mucosa. Eyes open, symmetrical, & clear CARDIO: No chest pain on palpation. Heart RRR, no obvious murmurs PULM: No noted coughing/dyspnea. Lungs CTA B/L GI: Abdomen soft, nondistended, no pain on palpation. BSx4. Nasoduodenal tube in-situ URO/FIGURE REFINISHER AND REPAIRER:: No further abnormalities noted. SKIN/MSK/EXT: Bilateral pitting edema 1+ Objective Labs 07/24/24 07:49 07/25/24 14:36 Labs: Laboratory Results - last 24 hr 07/25/24 08:00 Sodium 139 Potassium 3.4 Chloride 105 Carbon Dioxide 26.6 Anion Gap 7 BUN 19 Creatinine 0.9 Estim Creat Clear Calc 52.5 L eGFR > 60 BUN/Creatinine Ratio 21 H Glucose 125 H Calculated Osmolality 280 Calcium 9.0 Corrected Calcium 9.6 Phosphorus 0.9 L* Magnesium 1.4 L Albumin 3.3 L Quality Measures Quality Measures VTE prophylaxis Advance care planning discussed with:: other Assessment & Plan Assessment Current Active Medications: Generic Name Dose Route Start Last Admin Trade Name Freq PRN Reason Stop Dose Admin Acetaminophen 650 mg 07/23/24 00:02 Acetaminophen 325 Mg Tablet PO 08/11/24 20:32 Q6H PRN Pain 1-3 Or Fever > 101 Hydrocodone Bitart/Acetaminophen 1 tab 07/22/24 23:26 07/23/24 01:03 Hydrocodone/Apap 5/325 Tablet PO 07/27/24 23:25 1 tab Q8H PRN Administration PAIN SCALE 4-10(Mod-Sev Al Hydrox/Mg Hydrox/Simethicone 30 ml 07/12/24 20:51 Mg Hyd/Al Hyd/Ronald (Maalox Reg) Susp 30 Ml Udc PO 08/11/24 20:50 QID PRN UPSET STOMACH/INDIGESTION Albuterol/Ipratropium 3 ml 07/20/24 00:09 07/21/24 03:50 Albuterol/Ipratropium (Duoneb) Rt Jimena 3 Ml Nebu INH 08/19/24 00:08 3 ml Q6HRRT PRN Administration SHORTNESS OF BREATH OR WHEEZE Amiodarone HCl 200 mg 07/12/24 21:00 07/25/24 08:12 Amiodarone Hcl 200 Mg Tablet PO 08/11/24 20:59 200 mg BID ANGELICA Administration Dextrose 50 ml 07/12/24 21:11 07/18/24 17:21 Dextrose 50%-Water Inj 50 Ml Syringe IV 08/11/24 21:10 50 ml Q15MIN PRN Administration BG <50 OR BG <70 & pt unresponsive Dronabinol 10 mg 07/13/24 07:30 07/25/24 10:16 Dronabinol 2.5 Mg Capsule PO 08/12/24 07:29 10 mg BIDAC ANGELICA Administration Enoxaparin Sodium 40 mg 07/20/24 15:45 07/25/24 08:44 Enoxaparin Sod Inj 40 Mg/0.4 Ml Syringe SC 08/03/24 15:44 40 mg QDAY ANGELICA Administration Furosemide 20 mg 07/21/24 09:00 07/25/24 08:13 Furosemide Inj 10 Mg/Ml Vial 2 Ml IVP 08/20/24 08:59 20 mg QDAY ANGELICA Administration Glucagon 1 mg 07/12/24 21:11 Glucagon Inj 1 Mg Vial IM Q15MIN PRN BG <70, and no IV access Potassium Phosphate 15 mmol in 250 mls @ 62.5 mls/hr 07/25/24 09:40 07/25/24 10:30 Pot Phos 15 Mmol In Ns 250 Ml IV 07/25/24 17:39 62.5 mls/hr Q4H ANGELICA Administration Insulin Human Lispro 0 unit 02/20/25 06:00 07/25/24 11:27 Insulin Lispro (Admelog) 1 Unit/0.01 Ml Unit SC 08/19/24 05:59 Not Given Q6HR ANGELICA Protocol Melatonin 6 mg 07/19/24 21:00 07/24/24 20:27 Melatonin 3 Mg Tablet PO 08/18/24 20:59 6 mg HS ANGELICA Administration Metoprolol Succinate 25 mg 07/13/24 09:00 07/25/24 08:11 Metoprolol Succinate Xl 25 Mg Tabcr PO 08/12/24 08:59 25 mg QDAY ANGELICA Administration Midodrine 5 mg 07/12/24 22:00 07/25/24 13:56 Midodrine 5 Mg Tablet PO 08/11/24 21:59 5 mg TID ANGELICA Administration Ondansetron HCl 4 mg 07/12/24 20:33 07/24/24 20:35 Ondansetron Inj 2 Mg/Ml Inj 2 Ml IV 08/11/24 20:32 4 mg Q6H PRN Administration NAUSEA OR VOMITING Protocol Pantoprazole Sodium 40 mg 07/13/24 09:30 07/25/24 08:12 Pantoprazole Inj 40 Mg Vial IVP 08/12/24 09:29 40 mg BID ANGELICA Administration Pharmacy Consult 1 each 07/20/24 15:56 Pha To Consult Parenteral Nutr 1 Each Each XX 08/19/24 15:55 PRN PRN CONSULT Sennosides 1 tab 07/12/24 20:44 Senna Tablet PO 08/11/24 20:43 QDAY PRN CONSTIPATION Protocol Sucralfate 1 gm 07/13/24 11:30 07/25/24 11:56 Sucralfate Susp 1 Gm/10 Ml Udc PO 08/12/24 11:29 1 gm AC ANGELICA Administration Thiamine HCl 100 mg 07/21/24 11:30 07/25/24 08:13 Thiamine Inj 100 Mg/Ml Vial 2 Ml IVP 07/27/24 11:29 100 mg QDAY ANGELICA Administration Plan Summary: The patient is a 69-year-old female with past medical history of diabetes mellitus, hypertension, atrial fibrillation on Eliquis, end-stage renal disease on hemodialysis (MWF), history of gastric ulcers, recent hospitalization [facility] for perforated gastric ulcer status post exploratory laparotomy complicated by recurrent abdominal and pelvic abscesses who presented from rehab with a chief complaint of vomiting. Patient admitted to hospital for further workup for dysphagia poor p.o. intake and possible intervention for adequate nutrition. #Failure to thrive. #Protein Calorie Malnutrition #Nausea and vomiting. #History of gastric ulcers. #Severe gastritis, unspecified. #History of ex lap- recurrent abdominal abscess #?Gastric perforation #Hypophosphatemia, resolved. #Hypokalemia #s/p NJ tube placement. Per patient's daughter on medical office technology instructor of intermediate home patient has significantly poor p.o. intake, takes only 2-3 bites, unable to maintain a normal appetite. Patient does complain of mild epigastric pain, patient does have history of gastric ulcers recently was admitted to hospital for complicated perforated gastric ulcer. Patient is able to take a few bites but GI Dr. Christianson was consulted, will possibly plan patient for PEG tube if family consents. 07/16/2024- Per nurse this morning, the patient had 1 episode of vomiting after she tried to give her some juice due to hypoglycemia. Labs were reviewed and potassium was attempted to be repleted, but patient had another episode of vomiting. Family still wanting to hold off on PEG tube placement, will touch base with them again as patient is unable to tolerate oral intake at this time 07/17/2024: Pt continues to have nausea with eating, including taking pills. Pt and family will have to make decision with goals of care including PEG tube at this time. 07/19/2024: Patient's family still keeping PEG tube on hold. She was scheduled to have nuclear medicine gastric emptying scan yesterday, however was scheduled for today. Patient is reported to have vomited this morning and has been rescheduled for tomorrow. 07/20/2024- Scheduled to have nuclear medicine gastric emptying scan today, procedure was unable to be done as patient vomited the isotope and no imaging was obtained. We followed up with CT abdomen which showed findings are consistent with gastric ulcer/localized perforation and severe gastritis. General surgeon Dr. Santana consulted, will evaluate the patient. In the interim, we will start the patient on PPN and get consent for likely TPN 07/21/2024- Still has minimal oral intake. She was evaluated by surgeon Dr. Santana this morning who recommends postpyloric feeding with nasoduodenal/nasojejunal tube and family is agreeable. Will consult IR/GI for possible placement. Otherwise, she is still on PPN and clinical condition has remained stable. 07/22/2024- Nurse and family at bedside states that she is eating a little better, no vomiting. She does report intermittent abdominal pain about 8/10 in severity. Postpyloric feeding tube is yet to be done, will follow-up with GI and surgery on other options for placement. In the interim, we will continue IV albumin, PPN and replete electrolytes. 07/24/2024- She complains of some abdominal pain today, nurse at bedside also reports 4 large bowel movements, watery/loose. Tube feeds now at goal, no nausea or vomiting. Labs reviewed, hypokalemia 3.2, will replete. Albumin within normal limits today. 07/25/2024- The patient is seems to be tolerating tube feeds, denies abdominal pain today, no nausea or vomiting. She did have a couple episodes of diarrhea, probably due to new feeds. On examination, abdomen is soft and nontender to palpation. Plan: - Continue tube feeds ? GI consulted, appreciate recommendations. ? Protonix 40mg BID. ? Maalox as needed. ? Patient on dronabinol - General surgery consulted, appreciate recommendations #Possible refeeding syndrome Tube feeds running at 38 cc/h which is goal per dietitian. Labs reviewed, hypophosphatemia and hypomagnesemia. Plan: -Replete electrolytes #ESBL UTI- treated On admission, UA was positive for 3+ bacteria and 84 WBCs. Although the patient had no complaints, she was started on IV ceftriaxone for prophylaxis. Urine culture returned positive for ESBL UTI sensitive to IV levofloxacin. Completed a course of IV Levofloxacin #Hx of afib with RVR, rate controlled. Patient was noted to be in A-fib with RVR in ED, was given diltiazem 20 IV x 1, plan was to start patient on diltiazem drip. Patient's heart rate fluctuating in 90s to 110, no rapid ventricular response noted. Patient does have a history of atrial fibrillation, currently on amiodarone 200 twice daily, metoprolol succinate 25 p.o. daily and Eliquis 5 mg twice daily. Patient's last echo 05/16/2024 shows normal LV size and function, EF 55 to 60%, mild LVH stage I diastolic dysfunction. 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 Mild AV Sclerosis without stenosis. Plan: ? Resumed home dose amiodarone 200 twice daily, metoprolol succinate 25 mg p.o. daily. ? Eliquis on hold. ? Telemonitoring. #Diabetes mellitus. Patient has history of diabetes mellitus, last hemoglobin A1c was 6.3. Plan: ? Sliding scale insulin. ? Resumed home dose Lantus 12 units daily. ? Fingerstick blood glucose, blood glucose goal 140-180. ? Hypoglycemia protocol. #ADILSON on hemodialysis MWF-resolved. Patient received dialysis treatment yesterday, reports of allergic rash postdialysis. Received Benadryl BUN and creatinine within normal limits. Patient is now off dialysis Plan: - Dialysis discontinued ? Resume home dose midodrine. Health maintenance: DVT prophylaxis: Lovenox GI prophylaxis: IV Protonix Diet: ND feeds, rate 38cc/hr. Lines: Peripheral IV Code status: DNR/DNI Case was discussed with Dr Robertson PGY-2 and attending physician, Dr Antoinette Stanley MD PGY-1 Disclaimer: This note was dictated by speech recognition. Minor errors in container washer machine may be present due to voice recognition software. Patient examined and case discussed with the team including attending physician. Note reviewed, I agree with the care plan as documented. Patient admitted after gastric surgery, CT abdomen shows possible gastric perforation. GI following, recommend NJ tube. IR consulted, but unable to place a jejunal tube. General surgery Dr Santana consulted for further recommendations, counseled the family. Dr Christianson will consult tertiary centers for NJ tube placement, will follow up. Greatly appreciate Dr Christianson's input. Plan: Patient is tolerating TF but has some abdominal discomfort. Continue TF via NJ tube. Discussed with SNF PCP Dr Yang , who requested to talk to Dr Christianson to discuss prognosis and DC plan. - Bharath Robertson MD, PGY 2 Disclaimer: The document below may not be free of grammatical/phonetic/typographic errors due to use of voice recognition software. This does not dissuade from the commitment to providing health care with the patient's best interest in mind. Attending Provider Attestation/Addendum I have examined the patient, reviewed labs and imaging findings, discussed the case with the resident(s), and reviewed entered orders. I agree with the plan of care as outlined in this note, with these additional summaries/recommendations: Patient seen at bedside. No acute overnight events. Patient seen sitting up in bed and answering questions appropriately. Patient was given 1 spoon full of watery rice and appeared to tolerate well with no complaint of acute abdominal pain after eating which is a significant change for the patient. Patient has NG tube to duodenum for failure to thrive/malnutrition secondary to gastric ulcer and was started on artificial nutrition which she appears to be tolerating well. This supports the diagnosis that gastric ulcer likely contributing to patient's failure to thrive, intractable nausea/vomiting, and intermittent abdominal pain. Continue to monitor and record all oral intake for adequate evaluation. We will follow-up with gastroenterology for additional recommendations in regards to possible transfer for nasogastric jejunal tube. Does not appear discharging with current NG tube is a viable option. We will continue IV Protonix 40 mg twice daily & carafate for gastric ulcer. Family has previously denied PEG tube and discussed correction nutrition goals with family. Previous CT was indicative of possible gastric perforation although does not match clinical findings. Continue as needed Zofran. Continue to hold home Eliquis for atrial fibrillation for now as patient is high risk for life-threatening GI bleed. Continue amiodarone. S/P levofloxacin for urinary tract infection. As needed midodrine for hypotension. Repeat hematology and chemistry panel in AM. Dr. Antoinette MD
[2024-07-25 15:12] LABS: Albumin, Serum 3.5 gm/dL (3.4-4.8); Anion Gap 10 (7-16); BUN/Creatinine Ratio 22 Ratio (12-20); Blood Urea Nitrogen 20 mg/dL (9-23); Calcium 9.3 mg/dL (8.3-10.6); Calcium (Corrected) 9.7 mg/dL (8.5-10.1); Carbon Dioxide 26.6 mMol/L (20.0-31.0); Chloride 106 mMol/L (98-107); Creatinine (Component) 0.9 mg/dL (0.6-1.3); Estimated Creatinine Clearance 52.5 mL/min (>60); Glucose 110 mg/dL (74-106); Magnesium 2.9 mg/dL (1.6-2.6); Osmolality,Calculated 288 (275-295); Phosphorous 3.6 mg/dL (2.4-5.1); Potassium 3.7 mMol/L (3.4-5.1); Sodium 143 mMol/L (136-145); eGFR > 60 See Note
--- NOTE | 2024-07-25 20:19 | PD.IMPROG ---
Documentation for date of: 07/25/24 Subjective Subjective Interval history: Patient evaluated spoke with the son will recommend to the case management to transfer the patient for IR placement of a jejunostomy tube [facility] 120% capacity Exam Vital Signs Temp Pulse Resp BP Pulse Ox O2 Del Method O2 Flow Rate 98.4 F 101 H 16 108/66 96 Room Air 2 07/25/24 16:00 07/25/24 19:54 07/25/24 16:00 07/25/24 16:00 07/25/24 16:00 07/25/24 16:00 07/25/24 00:55 Objective Labs 07/24/24 07:49 07/25/24 14:36 Labs: Laboratory Results - last 24 hr 07/25/24 07/25/24 08:00 14:36 Sodium 139 143 Potassium 3.4 3.7 Chloride 105 106 Carbon Dioxide 26.6 26.6 Anion Gap 7 10 BUN 19 20 Creatinine 0.9 0.9 Estim Creat Clear Calc 52.5 L 52.5 L eGFR > 60 > 60 BUN/Creatinine Ratio 21 H 22 H Glucose 125 H 110 H Calculated Osmolality 280 288 Calcium 9.0 9.3 Corrected Calcium 9.6 9.7 Phosphorus 0.9 L* 3.6 Magnesium 1.4 L 2.9 H Albumin 3.3 L 3.5 Impressions Impression: # Failure to thrive continue NGT feeding. Case management try to transfer the patient to a place where IR can place a jejunostomy tube Assessment & Plan A&P Narrative # Failure to thrive Plan Case discussed in detail with the ER physician Difficult to put a PEG tube for further management of failure to thrive however will discuss with the family And attempt should be made if they agree To sustain appropriate nutrition for the patient by placement of a PEG tube Other medical problems include 1 end-stage renal disease hemodialysis MWF 2 chronic A-fib on Eliquis 3 status post exploratory laparotomy for perforated gastric ulcer Ramsey's patch and drainage of the subphrenic abscesses by IR drainage Thank you very much for the opportunity to participate in care of this patient Time Spent With Patient Time: Total time spent is greater than 50% in coordination of care (as documented) at patient's floor/unit and/or counseling patient:
[2024-07-25] MEDS: MELATONIN 3 MG TABLET 6 MG PO (21:58)
[2024-07-26] VITALS (17 sets, daily range): BP systolic 94–138; BP diastolic 56–80; PULSE 70–117; RESP 16–94; TEMP 36.1–36.6; O2SAT 92–95; BMI 12.0
[2024-07-26 06:24] LABS: Albumin, Serum 3.3 gm/dL (3.4-4.8); Anion Gap 11 (7-16); BUN/Creatinine Ratio 26 Ratio (12-20); Blood Urea Nitrogen 21 mg/dL (9-23); Calcium 9.3 mg/dL (8.3-10.6); Calcium (Corrected) 9.9 mg/dL (8.5-10.1); Carbon Dioxide 24.1 mMol/L (20.0-31.0); Chloride 106 mMol/L (98-107); Creatinine (Component) 0.8 mg/dL (0.6-1.3); Estimated Creatinine Clearance 59.1 mL/min (>60); Glucose 133 mg/dL (74-106); Osmolality,Calculated 286 (275-295); Phosphorous 3.4 mg/dL (2.4-5.1); Potassium 3.6 mMol/L (3.4-5.1); Sodium 141 mMol/L (136-145); eGFR > 60 See Note
[2024-07-26 06:29] LABS: Basophils # (Auto) 0.1 Thou/mm3 (0.0-0.2); Basophils % (Auto) 1 % (0-2.5); Eosinophils # (Auto) 0.2 Thou/mm3 (0.0-0.5); Eosinophils % (Auto) 2 % (0-10); Hematocrit 30.6 % (36.0-46.0); Hemoglobin 9.6 g/dL (12.0-16.0); Immature Granulocytes % (Auto) 1 % (0-0); Immature Granulocytes Auto 0.08 Thou/mm3 (0.00-0.00); Lymphocytes # (Auto) 3.2 Thou/mm3 (1.0-4.8); Lymphocytes % (Auto) 33 % (10-50); Mean Corpuscular HGB Conc 31.4 g/dl (31.0-37.0); Mean Corpuscular Hemoglobin 26.2 pg (25.0-35.0); Mean Corpuscular Volume 84 fL (80-100); Monocytes # (Auto) 0.9 Thou/mm3 (0.0-0.8); Monocytes % (Auto) 10 % (0-12); Neutrophils # (Auto) 5.1 Thou/mm3 (1.8-7.7); Neutrophils % (Auto) 53 % (37-80); Nucleated Red Blood Cell # 0.02 Thou/mm3 (0.00-0.00); Nucleated Red Blood Cell % 0 /100 WBC (0); Platelet Count 297 Thou/mm3 (140-440); RDW Standard Deviation 61.8 fL (36.4-46.3); Red Blood Count 3.66 Miln/mm3 (4.00-5.20); White Blood Count 9.7 Thou/mm3 (3.6-11.0)
[2024-07-26] MEDS: SUCRALFATE SUSP 1 GM/10 ML UDC PO ×3 (08:39→18:21)
[2024-07-26] MEDS: droNABinol 2.5 MG CAPSULE 10 MG PO (08:39)
[2024-07-26] MEDS: ENOXAPARIN SOD INJ 40 MG/0.4 ML SYRINGE SC (08:39)
[2024-07-26] MEDS: METOPROLOL SUCCINATE XL 25 MG TABCR PO (08:39)
[2024-07-26] MEDS: THIAMINE INJ 100 MG/ML VIAL 2 ML IVP (08:40)
[2024-07-26] MEDS: FUROSEMIDE INJ 10 MG/ML VIAL 2 ML 20 MG IVP (08:41)
[2024-07-26] MEDS: AMIODARONE HCL 200 MG TABLET PO ×2 (08:41→21:50)
[2024-07-26] MEDS: PANTOPRAZOLE INJ 40 MG VIAL IVP ×2 (09:45→21:50)
--- NOTE | 2024-07-26 13:02 | ESPR_ITS ---
Documentation for date of: 07/26/24 Subjective Subjective Interval history: Patient evaluated Long talk with rehab physician Who agreed to take the patient with the NGT in place If it comes out I told her we will bring the patient back to the emergency room and put a tube at that point Case discussed with internal medicine team Exam Vital Signs Temp Pulse Resp BP Pulse Ox O2 Del Method O2 Flow Rate 97.6 F 89 16 122/64 95 Room Air 2 07/26/24 11:34 07/26/24 11:34 07/26/24 11:34 07/26/24 11:34 07/26/24 11:34 07/26/24 11:34 07/26/24 04:00 Objective Labs 07/26/24 05:30 07/26/24 05:30 Labs: Laboratory Results - last 24 hr 07/25/24 07/26/24 14:36 05:30 WBC 9.7 D RBC 3.66 L Hgb 9.6 L Hct 30.6 L MCV 84 MCH 26.2 MCHC 31.4 RDW Std Deviation 61.8 H Plt Count 297 D Neut % (Auto) 53 Lymph % (Auto) 33 [place] % (Auto) 10 Eos % (Auto) 2 Baso % (Auto) 1 Neut # (Auto) 5.1 Lymph # (Auto) 3.2 [place] # (Auto) 0.9 H Eos # (Auto) 0.2 Baso # (Auto) 0.1 Immature Gran # (Auto) 0.08 H Absolute Nucleated RBC 0.02 H Immature Gran % 1 H Nucleated RBC % 0 Sodium 143 141 Potassium 3.7 3.6 Chloride 106 106 Carbon Dioxide 26.6 24.1 Anion Gap 10 11 BUN 20 21 Creatinine 0.9 0.8 Estim Creat Clear Calc 52.5 L 59.1 L eGFR > 60 > 60 BUN/Creatinine Ratio 22 H 26 H Glucose 110 H 133 H Calculated Osmolality 288 286 Calcium 9.3 9.3 Corrected Calcium 9.7 9.9 Phosphorus 3.6 3.4 Magnesium 2.9 H 2.0 Albumin 3.5 3.3 L Impressions Impression: # Failure to thrive # Status post exploratory laparotomy for perforated gastric ulcer Plan Case discussed with internal medicine team for discharge planning Assessment & Plan A&P Narrative # Failure to thrive Plan Case discussed in detail with the ER physician Difficult to put a PEG tube for further management of failure to thrive however will discuss with the family And attempt should be made if they agree To sustain appropriate nutrition for the patient by placement of a PEG tube Other medical problems include 1 end-stage renal disease hemodialysis MWF 2 chronic A-fib on Eliquis 3 status post exploratory laparotomy for perforated gastric ulcer Ramsey's patch and drainage of the subphrenic abscesses by IR drainage Thank you very much for the opportunity to participate in care of this patient Time Spent With Patient Time: Total time spent is greater than 50% in coordination of care (as documented) at patient's floor/unit and/or counseling patient:
[2024-07-26] MEDS: HYDROcodone/APAP 5/325 TABLET 1 TAB PO (14:25)
--- NOTE | 2024-07-26 14:57 | PD.NEPHPROG ---
Documentation for date of: 07/26/24 Subjective Subjective Interval history: patient is a 69-year-old female with significant past medical history of diabetes mellitus, hypertension, A-fib on Eliquis, ADILSON on hemodialysis, history of gastric ulcers, recent hospitalization in [facility] for perforated gastric ulcer s/p exploratory laparotomy complicated by recurrent abdominal and pelvic abscesses presented from rehab with chief complaint of vomiting. Vomiting is further aggravated by trying to eat, as after taking 2-3 bites she starts vomiting. Denies any fever or chills, headache, chest pain, abdominal pain, any leg swelling. The last hemodialysis and was 1 day ago. During our evaluation, her vitals were stable with soft blood pressure, saturating 92 to 95% on room air. Labs are significant for white count 13.6, hemoglobin 11.8, sodium 139, potassium 4.4, BUN 35, creatinine 1.8, GFR 40, A1c 4.9, corrected calcium 10.2. UA revealed turbid urine, protein 1+, bilirubin 1+, leukocyte esterase positive, WBC 84, bacteria 3+. Chest x-ray significant for mild heart failure pattern. Abdomen/pelvis CT significant for severe gastritis pattern, hyperdense gallbladder with possible pancreatitis. 07/14/2024: The patient was interviewed and examined at the bedside this morning. She reported doing okay. Her vitals were stable with mild tachycardia with heart rate 115. CBC fairly at baseline, chemistry panel revealed sodium 140, potassium 4.3, BUN 38, creatinine 1.7, GFR 32 and corrected calcium 10.2. We will continue to hold off on hemodialysis, and continue to monitor renal panel. 07/15/2024: The patient was interviewed and examined at the bedside this morning along with her son. She reported doing well. She denied any headache, chest pain or SOB, or any leg swelling. Her vitals were fairly stable. CBC at baseline, sodium 141, potassium 3.6, BUN 32, creatinine improving to 1.4, GFR 41, corrected calcium 10.2. We will hold off on hemodialysis, and continue to monitor renal panel. 07/17/2024 doing faily ok. Appetite still low. CR 1.2 Blood sugar 83. Blood pressure 116/89, heart rate 111. Hemoglobin 10.8. Sodium 142, potassium 3, BUN 17, creatinine 1.0, LFTs normal, phosphorus 2.1, magnesium 1.8, albumin 2.4, vitamin D72.9, PTH 66.7 dc dialysis cath in am 07/18/2024 patient currently seen in medical floor. Resting comfortably. LFTs normal. Albumin 2.5. Creatinine markedly improved to 1.0. Potassium 3.2.Patient and family refusing feeding tube. Patient came off dialysis. Pending catheter removal. 07/19/2024 patient currently seen in medical floor. In contact isolation room. Still did not get the dialysis catheter removed. Hopefully can be done today. Replaced all electrolytes. Patient came off dialysis. Appetite still remains poor. Noted family did not want feeding tube. Hemoglobin 10.8, platelets 222. Sodium 138, potassium 3.4, creatinine 0.8, calcium 9.6, phosphorus 1.6, magnesium 1.6, LFTs normal, albumin 2.3, PTH 66.7 07/20/2024 patient currently seen in medical floor. In contact isolation room. Still did not get the dialysis catheter removed. Apparently daughter wanted to hold off for dialysis catheter removal due to edema. Tried to reach the daughter but could not today. Will retry tomorrow. Labs showed creatinine 0.8. Albumin significantly low could be causing third spacing. 07/26/2024 patient currently seen in medical floor. Patient seems to be more alert and awake today.-patient needs to have aggressive physical therapy and needs to improve nutritional support. Albumin is extremely low causing third spacing and edema. Added a low-dose diuretic. Patient had dialysis catheter removal. Noted patient was started on tube feeds via NG tube. Creatinine 0.9. Patient might be transferred to [facility] for jejunostomy tube placement per Dr. Christianson. 3 seems to have dysphagia and unable to eat. Replace electrolytes. Edema improving. Review of Systems Review of Systems Narrative Review of Systems: Patient more alert and awake. Denies any chest pain, shortness of breath. Appetite is very poor. Currently has NG tube. Exam Vital Signs Temp Pulse Resp BP Pulse Ox O2 Del Method O2 Flow Rate 36.4 C 115 H 16 122/64 95 Room Air 2 07/26/24 11:34 07/26/24 14:20 07/26/24 11:34 07/26/24 14:20 07/26/24 11:34 07/26/24 11:34 07/26/24 04:00 Narrative Exam General: No acute distress, patient alert and awake HEENT: Moist mucous membranes, oropharynx clear Neck: Supple, No masses, No JVD CVS: S1S2 Regular rate and rhythm, No murmurs, rubs or gallops Lungs: Clear to auscultation with no accessory use, no wheeze no rhonchi Abd: Soft, NT/ND, +BS, no organomegaly Ext: 1+ edema in the lower extremities Skin: No rash Objective Labs 07/27/24 04:39 07/27/24 04:39 Labs: Laboratory Results - last 24 hr 07/25/24 07/26/24 14:36 05:30 WBC 9.7 D RBC 3.66 L Hgb 9.6 L Hct 30.6 L MCV 84 MCH 26.2 MCHC 31.4 RDW Std Deviation 61.8 H Plt Count 297 D Neut % (Auto) 53 Lymph % (Auto) 33 [place] % (Auto) 10 Eos % (Auto) 2 Baso % (Auto) 1 Neut # (Auto) 5.1 Lymph # (Auto) 3.2 [place] # (Auto) 0.9 H Eos # (Auto) 0.2 Baso # (Auto) 0.1 Immature Gran # (Auto) 0.08 H Absolute Nucleated RBC 0.02 H Immature Gran % 1 H Nucleated RBC % 0 Sodium 143 141 Potassium 3.7 3.6 Chloride 106 106 Carbon Dioxide 26.6 24.1 Anion Gap 10 11 BUN 20 21 Creatinine 0.9 0.8 Estim Creat Clear Calc 52.5 L 59.1 L eGFR > 60 > 60 BUN/Creatinine Ratio 22 H 26 H Glucose 110 H 133 H Calculated Osmolality 288 286 Calcium 9.3 9.3 Corrected Calcium 9.7 9.9 Phosphorus 3.6 3.4 Magnesium 2.9 H 2.0 Albumin 3.5 3.3 L Assessment & Plan Additional Assessment & Plan Additional Plan: patient is a 69-year-old female with significant past medical history of diabetes mellitus, hypertension, A-fib on Eliquis, ADILSON on hemodialysis MWF, history of gastric ulcers, recent hospitalization in [facility] for perforated gastric ulcer s/p exploratory laparotomy complicated by recurrent abdominal and pelvic abscesses presented from rehab with chief complaint of vomiting. Nephrology consultation was done for further management of ADILSON on hemodialysis. #ADILSON -- was on hemodialysis MWF, improving Patient had ATN while she was admitted to ICU for soft blood pressure on 05/14/2024. Later she was started on hemodialysis for volume overload and oliguria. Presented with BUN 29, creatinine 1.8 and GFR 30, but within the last 3 months or GFR was worsened, gradually has been improving. 07/26/2024 creatinine 0.9- DCed dialysis catheter. Continue with diuretics. Edema improved. -Avoid nephrotoxic drugs -Renal dose modifications proceed with Lasix to improve edema. replace potassium, phosphorus -Daily a.m. renal panel #Gastritis #Dysphagia-pending J-tube #Intractable nausea and vomiting #History of gastric ulcers #A-fib with RVR #Diabetes mellitus type II -Management deferred to primary hospitalist team Noted she has NG tube now for tube feeds. Quality - progress note Quality Measures Quality Measures: VTE prophylaxis Reason for Continued Stay Reason for Continued Stay: further monitoring
--- NOTE | 2024-07-26 15:15 | PC.SS ---
Addendum entered by Genet Andrews 07/26/24 15:24: SS spoke to Davida [facility] and she confirmed patient's physician that has been following her at facility is Dr. Delacruz. Original Note: Follow up note: SS spoke to Jennifer [facility] and inquired if they are in agreement with patient being discharged to them on ng tube. [facility] stated they cannot take a patient on an ng tube. Peg only. SS relayed information to hospitalist team.
--- NOTE | 2024-07-26 16:10 | ESPR_ITS ---
<Statement entered by Miguel Peraza MD - 07/27/24 07:30> Senior Resident Attestation: I supervised/discussed management plan with senior internal auditor physician Dr. Stanley, and was involved in the care of this patient. I personally saw and examined the patient and discussed the assessment and plan with the entire medicine team, including my attending. I agree with the assessment and plan as documented. Patient's care was discussed with attending physician, Dr. Singleton. Miguel Peraza MD PGY-2. Documentation for date of: 07/26/24 Subjective Subjective Interval history: Patient seen at bedside. No acute overnight events. At bedside today, denies pain, has had no episodes of vomiting. Patient is still running on tube feeds, currently at goal. Conferred with GI as well as rehab physician on plan for dispo, family included. At this time, the patient is unable to be discharged with the NG tube, will continue to monitor her for a few days and see improvements and then reevaluate plan. Labs and vitals reviewed, within normal limits. Exam Vital Signs Temp Pulse Resp BP Pulse Ox O2 Del Method O2 Flow Rate 97.6 F 115 H 16 122/64 95 Room Air 2 07/26/24 11:34 07/26/24 14:20 07/26/24 11:34 07/26/24 14:20 07/26/24 11:34 07/26/24 11:34 07/26/24 04:00 Objective Labs 07/27/24 04:39 07/27/24 04:39 Labs: Laboratory Results - last 24 hr 07/26/24 05:30 WBC 9.7 D RBC 3.66 L Hgb 9.6 L Hct 30.6 L MCV 84 MCH 26.2 MCHC 31.4 RDW Std Deviation 61.8 H Plt Count 297 D Neut % (Auto) 53 Lymph % (Auto) 33 [place] % (Auto) 10 Eos % (Auto) 2 Baso % (Auto) 1 Neut # (Auto) 5.1 Lymph # (Auto) 3.2 [place] # (Auto) 0.9 H Eos # (Auto) 0.2 Baso # (Auto) 0.1 Immature Gran # (Auto) 0.08 H Absolute Nucleated RBC 0.02 H Immature Gran % 1 H Nucleated RBC % 0 Sodium 141 Potassium 3.6 Chloride 106 Carbon Dioxide 24.1 Anion Gap 11 BUN 21 Creatinine 0.8 Estim Creat Clear Calc 59.1 L eGFR > 60 BUN/Creatinine Ratio 26 H Glucose 133 H Calculated Osmolality 286 Calcium 9.3 Corrected Calcium 9.9 Phosphorus 3.4 Magnesium 2.0 Albumin 3.3 L Quality Measures Quality Measures VTE prophylaxis Advance care planning discussed with:: child and other Assessment & Plan Assessment Current Active Medications: Generic Name Dose Route Start Last Admin Trade Name Freq PRN Reason Stop Dose Admin Acetaminophen 650 mg 07/23/24 00:02 Acetaminophen 325 Mg Tablet PO 08/11/24 20:32 Q6H PRN Pain 1-3 Or Fever > 101 Hydrocodone Bitart/Acetaminophen 1 tab 07/22/24 23:26 07/26/24 14:25 Hydrocodone/Apap 5/325 Tablet PO 07/27/24 23:25 1 tab Q8H PRN Administration PAIN SCALE 4-10(Mod-Sev Al Hydrox/Mg Hydrox/Simethicone 30 ml 07/12/24 20:51 Mg Hyd/Al Hyd/Ronald (Maalox Reg) Susp 30 Ml Udc PO 08/11/24 20:50 QID PRN UPSET STOMACH/INDIGESTION Albuterol/Ipratropium 3 ml 07/20/24 00:09 07/21/24 03:50 Albuterol/Ipratropium (Duoneb) Rt Jimena 3 Ml Nebu INH 08/19/24 00:08 3 ml Q6HRRT PRN Administration SHORTNESS OF BREATH OR WHEEZE Amiodarone HCl 200 mg 07/12/24 21:00 07/26/24 08:41 Amiodarone Hcl 200 Mg Tablet PO 08/11/24 20:59 200 mg BID ANGELICA Administration Dextrose 50 ml 07/12/24 21:11 07/18/24 17:21 Dextrose 50%-Water Inj 50 Ml Syringe IV 08/11/24 21:10 50 ml Q15MIN PRN Administration BG <50 OR BG <70 & pt unresponsive Dronabinol 10 mg 07/13/24 07:30 07/26/24 08:39 Dronabinol 2.5 Mg Capsule PO 08/12/24 07:29 10 mg BIDAC ANGELICA Administration Enoxaparin Sodium 40 mg 07/20/24 15:45 07/26/24 08:39 Enoxaparin Sod Inj 40 Mg/0.4 Ml Syringe SC 08/03/24 15:44 40 mg QDAY ANGELICA Administration Furosemide 20 mg 07/21/24 09:00 07/26/24 08:41 Furosemide Inj 10 Mg/Ml Vial 2 Ml IVP 08/20/24 08:59 20 mg QDAY ANGELICA Administration Glucagon 1 mg 07/12/24 21:11 Glucagon Inj 1 Mg Vial IM Q15MIN PRN BG <70, and no IV access Insulin Human Lispro 0 unit 07/20/24 06:00 07/26/24 05:33 Insulin Lispro (Admelog) 1 Unit/0.01 Ml Unit SC 08/19/24 05:59 Not Given Q6HR ANGELICA Protocol Melatonin 6 mg 07/19/24 21:00 07/25/24 21:58 Melatonin 3 Mg Tablet PO 08/18/24 20:59 6 mg HS ANGELICA Administration Metoprolol Succinate 25 mg 07/13/24 09:00 07/26/24 08:39 Metoprolol Succinate Xl 25 Mg Tabcr PO 08/12/24 08:59 25 mg QDAY ANGELICA Administration Midodrine 5 mg 07/12/24 22:00 07/26/24 14:20 Midodrine 5 Mg Tablet PO 08/11/24 21:59 Not Given TID ANGELICA Ondansetron HCl 4 mg 07/12/24 20:33 07/24/24 20:35 Ondansetron Inj 2 Mg/Ml Inj 2 Ml IV 08/11/24 20:32 4 mg Q6H PRN Administration NAUSEA OR VOMITING Protocol Pantoprazole Sodium 40 mg 07/13/24 09:30 07/26/24 09:45 Pantoprazole Inj 40 Mg Vial IVP 08/12/24 09:29 40 mg BID ANGELICA Administration Pharmacy Consult 1 each 07/20/24 15:56 Pha To Consult Parenteral Nutr 1 Each Each XX 08/19/24 15:55 PRN PRN CONSULT Sennosides 1 tab 07/12/24 20:44 Senna Tablet PO 08/11/24 20:43 QDAY PRN CONSTIPATION Protocol Sucralfate 1 gm 07/13/24 11:30 07/26/24 14:25 Sucralfate Susp 1 Gm/10 Ml Udc PO 08/12/24 11:29 1 gm AC ANGELICA Administration Thiamine HCl 100 mg 07/21/24 11:30 07/26/24 08:40 Thiamine Inj 100 Mg/Ml Vial 2 Ml IVP 07/27/24 11:29 100 mg QDAY [facility] Administration Plan Summary: The patient is a 69-year-old female with past medical history of diabetes mellitus, hypertension, atrial fibrillation on Eliquis, end-stage renal disease on hemodialysis (MWF), history of gastric ulcers, recent hospitalization [facility] for perforated gastric ulcer status post exploratory laparotomy complicated by recurrent abdominal and pelvic abscesses who presented from rehab with a chief complaint of vomiting. Patient admitted to hospital for further workup for dysphagia poor p.o. intake and possible intervention for adequate nutrition. #Failure to thrive. #Protein Calorie Malnutrition #Nausea and vomiting. #History of gastric ulcers. #Severe gastritis, unspecified. #History of ex lap- recurrent abdominal abscess #?Gastric perforation #Hypophosphatemia, resolved. #Hypokalemia #s/p [place] tube placement. Per patient's daughter on biomedical equipment specialist of care home home patient has significantly poor p.o. intake, takes only 2-3 bites, unable to maintain a normal appetite. Patient does complain of mild epigastric pain, patient does have history of gastric ulcers recently was admitted to hospital for complicated perforated gastric ulcer. Patient is able to take a few bites but GI Dr. Christianson was consulted, will possibly plan patient for PEG tube if family consents. 07/16/2024- Per nurse this morning, the patient had 1 episode of vomiting after she tried to give her some juice due to hypoglycemia. Labs were reviewed and potassium was attempted to be repleted, but patient had another episode of vomiting. Family still wanting to hold off on PEG tube placement, will touch base with them again as patient is unable to tolerate oral intake at this time 07/17/2024: Pt continues to have nausea with eating, including taking pills. Pt and family will have to make decision with goals of care including PEG tube at this time. 07/19/2024: Patient's family still keeping PEG tube on hold. She was scheduled to have nuclear medicine gastric emptying scan yesterday, however was scheduled for today. Patient is reported to have vomited this morning and has been rescheduled for tomorrow. 07/20/2024- Scheduled to have nuclear medicine gastric emptying scan today, procedure was unable to be done as patient vomited the isotope and no imaging was obtained. We followed up with CT abdomen which showed findings are consistent with gastric ulcer/localized perforation and severe gastritis. General surgeon Dr. Santana consulted, will evaluate the patient. In the interim, we will start the patient on PPN and get consent for likely TPN 07/21/2024- Still has minimal oral intake. She was evaluated by surgeon Dr. Santana this morning who recommends postpyloric feeding with nasoduodenal/nasojejunal tube and family is agreeable. Will consult IR/GI for possible placement. Otherwise, she is still on PPN and clinical condition has remained stable. 07/22/2024- Nurse and family at bedside states that she is eating a little better, no vomiting. She does report intermittent abdominal pain about 8/10 in severity. Postpyloric feeding tube is yet to be done, will follow-up with GI and surgery on other options for placement. In the interim, we will continue IV albumin, PPN and replete electrolytes. 07/24/2024- She complains of some abdominal pain today, nurse at bedside also reports 4 large bowel movements, watery/loose. Tube feeds now at goal, no nausea or vomiting. Labs reviewed, hypokalemia 3.2, will replete. Albumin within normal limits today. 07/25/2024- The patient is seems to be tolerating tube feeds, denies abdominal pain today, no nausea or vomiting. She did have a couple episodes of diarrhea, probably due to new feeds. On examination, abdomen is soft and nontender to palpation. 07/26/2024- No acute overnight events. At bedside today, denies pain, has had no episodes of vomiting. Patient is still running on tube feeds, currently at goal. Conferred with GI as well as rehab physician on plan for dispo, family included. At this time, the patient is unable to be discharged with the NG tube, will continue to monitor her for a few days and see improvements and then reevaluate plan. Plan: - Continue tube feeds ? GI consulted, appreciate recommendations. ? Protonix 40mg BID. ? Maalox as needed. ? Patient on dronabinol - General surgery consulted, appreciate recommendations #Possible refeeding syndrome- resolved Tube feeds running at 38 cc/h which is goal per dietitian. Labs reviewed, hypophosphatemia and hypomagnesemia. Plan: -Replete electrolytes as needed #ESBL UTI- treated On admission, UA was positive for 3+ bacteria and 84 WBCs. Although the patient had no complaints, she was started on IV ceftriaxone for prophylaxis. Urine culture returned positive for ESBL UTI sensitive to IV levofloxacin. Completed a course of IV Levofloxacin #Hx of afib with RVR, rate controlled. Patient was noted to be in A-fib with RVR in ED, was given diltiazem 20 IV x 1, plan was to start patient on diltiazem drip. Patient's heart rate fluctuating in 90s to 110, no rapid ventricular response noted. Patient does have a history of atrial fibrillation, currently on amiodarone 200 twice daily, metoprolol succinate 25 p.o. daily and Eliquis 5 mg twice daily. Patient's last echo 05/16/2024 shows normal LV size and function, EF 55 to 60%, mild LVH stage I diastolic dysfunction. 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 Mild AV Sclerosis without stenosis. Plan: ? Resumed home dose amiodarone 200 twice daily, metoprolol succinate 25 mg p.o. daily. ? Eliquis on hold. ? Telemonitoring. #Diabetes mellitus. Patient has history of diabetes mellitus, last hemoglobin A1c was 6.3. Plan: ? Sliding scale insulin. ? Resumed home dose Lantus 12 units daily. ? Fingerstick blood glucose, blood glucose goal 140-180. ? Hypoglycemia protocol. #ADILSON on hemodialysis MWF-resolved. Patient received dialysis treatment yesterday, reports of allergic rash postdialysis. Received Benadryl BUN and creatinine within normal limits. Patient is now off dialysis Plan: - Dialysis discontinued ? Resume home dose midodrine. Health maintenance: DVT prophylaxis: Lovenox GI prophylaxis: IV Protonix Diet: ND feeds, rate 38cc/hr. Lines: Peripheral IV Code status: DNR/DNI Case was discussed with Dr Peraza PGY-2 and attending physician, Dr Areli Stanley MD PGY-1 Disclaimer: This note was dictated by speech recognition. Minor errors in migratory worker may be present due to voice recognition software. Attending Provider Attestation/Addendum I have discussed and was present for the essential components of the history, physical examination, diagnosis, and treatment plan with the resident. I agree with the patient's care as documented by the resident and amended herein by me. Nato Singleton DO. Although this document has been carefully reviewed, there may still be some phonetic and other typographical errors. These errors are purely grammatical due to imperfections in the software program and should not be construed in any way to compromise the substance of the patient's medical care during this visit.
--- NOTE | 2024-07-26 19:49 | PC.NURSE ---
Addendum entered by Oscar Kirby RN 07/26/24 21:44: Dr. Mahmood assesed patient. Pt was itching at NG tube so Dr. Mahmood ordered Benadryl. RN went to go change tape on NG tube but patient not complaining of any pain or itching. Dr. Mahmood cancelled Benadryl. Addendum entered by Oscar Kirby RN 07/26/24 19:53: Dr. Mahmood will come assess patient. Original Note: Pt complaining of pain at NG tube site. RN assessed, but did not notice any issues. RN will contact hospitalists.
[2024-07-26] MEDS: MELATONIN 3 MG TABLET 6 MG PO (21:49)
[2024-07-27] VITALS (14 sets, daily range): BP systolic 98–130; BP diastolic 60–94; PULSE 75–121; RESP 16–98; TEMP 36.1–36.5; O2SAT 91–98; BMI 30.1; BMI 12.0
[2024-07-27 05:43] LABS: Basophils # (Auto) 0.1 Thou/mm3 (0.0-0.2); Basophils % (Auto) 2 % (0-2.5); Eosinophils # (Auto) 0.3 Thou/mm3 (0.0-0.5); Eosinophils % (Auto) 4 % (0-10); Hematocrit 32.8 % (36.0-46.0); Hemoglobin 10.1 g/dL (12.0-16.0); Immature Granulocytes % (Auto) 1 % (0-0); Immature Granulocytes Auto 0.05 Thou/mm3 (0.00-0.00); Lymphocytes # (Auto) 3.1 Thou/mm3 (1.0-4.8); Lymphocytes % (Auto) 40 % (10-50); Mean Corpuscular HGB Conc 30.8 g/dl (31.0-37.0); Mean Corpuscular Hemoglobin 25.9 pg (25.0-35.0); Mean Corpuscular Volume 84 fL (80-100); Monocytes # (Auto) 0.8 Thou/mm3 (0.0-0.8); Monocytes % (Auto) 11 % (0-12); Neutrophils # (Auto) 3.4 Thou/mm3 (1.8-7.7); Neutrophils % (Auto) 44 % (37-80); Nucleated Red Blood Cell # 0.03 Thou/mm3 (0.00-0.00); Nucleated Red Blood Cell % 0 /100 WBC (0); Platelet Count 291 Thou/mm3 (140-440); RDW Standard Deviation 61.9 fL (36.4-46.3); White Blood Count 7.7 Thou/mm3 (3.6-11.0)
[2024-07-27 06:09] LABS: Albumin, Serum 3.4 gm/dL (3.4-4.8); Anion Gap 9 (7-16); BUN/Creatinine Ratio 28 Ratio (12-20); Blood Urea Nitrogen 25 mg/dL (9-23); Calcium 9.5 mg/dL (8.3-10.6); Carbon Dioxide 27.1 mMol/L (20.0-31.0); Chloride 105 mMol/L (98-107); Creatinine (Component) 0.9 mg/dL (0.6-1.3); Estimated Creatinine Clearance 50.1 mL/min (>60); Glucose 116 mg/dL (74-106); Magnesium 1.7 mg/dL (1.6-2.6); Osmolality,Calculated 286 (275-295); Phosphorous 3.1 mg/dL (2.4-5.1); Potassium 3.1 mMol/L (3.4-5.1); Sodium 141 mMol/L (136-145); eGFR > 60 See Note
--- NOTE | 2024-07-27 09:32 | ESPR_ITS ---
Documentation for date of: 07/27/24 Subjective Subjective Interval history: patient is a 69-year-old female with significant past medical history of diabetes mellitus, hypertension, A-fib on Eliquis, ADILSON on hemodialysis, history of gastric ulcers, recent hospitalization in [facility] ([facility]) for perforated gastric ulcer s/p exploratory laparotomy complicated by recurrent abdominal and pelvic abscesses presented from rehab with chief complaint of vomiting. Vomiting is further aggravated by trying to eat, as after taking 2-3 bites she starts vomiting. Denies any fever or chills, headache, chest pain, abdominal pain, any leg swelling. The last hemodialysis and was 1 day ago. During our evaluation, her vitals were stable with soft blood pressure, saturating 92 to 95% on room air. Labs are significant for white count 13.6, hemoglobin 11.8, sodium 139, potassium 4.4, BUN 35, creatinine 1.8, GFR 40, A1c 4.9, corrected calcium 10.2. UA revealed turbid urine, protein 1+, bilirubin 1+, leukocyte esterase positive, WBC 84, bacteria 3+. Chest x-ray significant for mild heart failure pattern. Abdomen/pelvis CT significant for severe gastritis pattern, hyperdense gallbladder with possible pancreatitis. 07/19/2024 patient currently seen in medical floor. In contact isolation room. Still did not get the dialysis catheter removed. Hopefully can be done today. Replaced all electrolytes. Patient came off dialysis. Appetite still remains poor. Noted family did not want feeding tube. Hemoglobin 10.8, platelets 222. Sodium 138, potassium 3.4, creatinine 0.8, calcium 9.6, phosphorus 1.6, magnesium 1.6, LFTs normal, albumin 2.3, PTH 66.7 07/20/2024 patient currently seen in medical floor. In contact isolation room. Still did not get the dialysis catheter removed. Apparently daughter wanted to hold off for dialysis catheter removal due to edema. Tried to reach the daughter but could not today. Will retry tomorrow. Labs showed creatinine 0.8. Albumin significantly low could be causing third spacing. 07/27/2024 patient currently seen in medical floor. Patient seems to be more alert and awake today.-patient needs to have aggressive physical therapy and needs to improve nutritional support. Albumin is extremely low causing third spacing and edema. Added a low-dose diuretic. Patient had dialysis catheter removal. Noted patient was started on tube feeds via NG tube. Potassium 3.1, bicarbonate 27.1, phosphorus 3.1, magnesium 1.7 creatinine 0.9. Patient might be transferred to [facility] for jejunostomy tube placement per Dr. Christianson. 3 seems to have dysphagia and unable to eat. Replace electrolytes. Edema improving. Review of Systems Review of Systems Narrative Review of Systems: Patient more alert and awake. Denies any chest pain, shortness of breath. Appetite is very poor. Currently has NG tube. Exam Vital Signs Temp Pulse Resp BP Pulse Ox O2 Del Method O2 Flow Rate 36.2 C 105 H 19 114/70 91 L Room Air 2 07/27/24 08:00 07/27/24 08:00 07/27/24 08:00 07/27/24 08:00 07/27/24 08:00 07/27/24 08:00 07/26/24 04:00 Narrative Exam General: No acute distress, patient alert and awake HEENT: Moist mucous membranes, oropharynx clear Neck: Supple, No masses, No JVD CVS: S1S2 Regular rate and rhythm, No murmurs, rubs or gallops Lungs: Clear to auscultation with no accessory use, no wheeze no rhonchi Abd: Soft, NT/ND, +BS, no organomegaly Ext: 1+ edema in the lower extremities Skin: No rash Objective Labs 07/27/24 04:39 07/27/24 04:39 Labs: Laboratory Results - last 24 hr 07/27/24 04:39 WBC 7.7 RBC 3.90 L Hgb 10.1 L Hct 32.8 L MCV 84 MCH 25.9 MCHC 30.8 L RDW Std Deviation 61.9 H Plt Count 291 Neut % (Auto) 44 Lymph % (Auto) 40 [place] % (Auto) 11 Eos % (Auto) 4 Baso % (Auto) 2 Neut # (Auto) 3.4 Lymph # (Auto) 3.1 [place] # (Auto) 0.8 Eos # (Auto) 0.3 Baso # (Auto) 0.1 Immature Gran # (Auto) 0.05 H Absolute Nucleated RBC 0.03 H Immature Gran % 1 H Nucleated RBC % 0 Sodium 141 Potassium 3.1 L D Chloride 105 Carbon Dioxide 27.1 Anion Gap 9 BUN 25 H Creatinine 0.9 Estim Creat Clear Calc 50.1 L eGFR > 60 BUN/Creatinine Ratio 28 H Glucose 116 H Calculated Osmolality 286 Calcium 9.5 Corrected Calcium 10.0 Phosphorus 3.1 Magnesium 1.7 Albumin 3.4 Assessment & Plan Additional Assessment & Plan Additional Plan: patient is a 69-year-old female with significant past medical history of diabetes mellitus, hypertension, A-fib on Eliquis, ADILSON on hemodialysis MWF, history of gastric ulcers, recent hospitalization in [facility] ([facility]) for perforated gastric ulcer s/p exploratory laparotomy complicated by recurrent abdominal and pelvic abscesses presented from rehab with chief complaint of vomiting. Nephrology consultation was done for further management of ADILSON on hemodialysis. #ADILSON -- was on hemodialysis MWF, improving Patient had ATN while she was admitted to ICU for soft blood pressure on 05/14/2024. Later she was started on hemodialysis for volume overload and oliguria. Presented with BUN 29, creatinine 1.8 and GFR 30, but within the last 3 months or GFR was worsened, gradually has been improving. 07/27/2024 creatinine 0.9- DCed dialysis catheter. Continue with diuretics. Edema improved. -Avoid nephrotoxic drugs -Renal dose modifications proceed with Lasix to improve edema. replace potassium, phosphorus -Daily a.m. renal panel #Gastritis #Dysphagia-pending J-tube #Intractable nausea and vomiting #History of gastric ulcers #A-fib with RVR #Diabetes mellitus type II -Management deferred to primary hospitalist team Noted she has NG tube now for tube feeds. Quality - progress note Quality Measures Quality Measures: VTE prophylaxis Reason for Continued Stay Reason for Continued Stay: further monitoring
[2024-07-27] MEDS: METOPROLOL SUCCINATE XL 25 MG TABCR 50 MG PO (09:41)
[2024-07-27] MEDS: AMIODARONE HCL 200 MG TABLET PO ×2 (09:41→20:59)
[2024-07-27] MEDS: ENOXAPARIN SOD INJ 40 MG/0.4 ML SYRINGE SC (09:41)
[2024-07-27] MEDS: SUCRALFATE SUSP 1 GM/10 ML UDC PO ×4 (09:41→20:58)
[2024-07-27] MEDS: FUROSEMIDE INJ 10 MG/ML VIAL 2 ML 20 MG IVP (09:42)
[2024-07-27] MEDS: PANTOPRAZOLE INJ 40 MG VIAL IVP ×2 (09:42→20:58)
[2024-07-27] MEDS: THIAMINE INJ 100 MG/ML VIAL 2 ML IVP (09:43)
--- NOTE | 2024-07-27 12:09 | PC.SS ---
Follow up note: SS referred patient to LTAC facilities as an alternate option. They are all reviewing information Spoke to hospitalist and they are discussing transfer for higher level of care. Transfer nurse will be updated.
--- NOTE | 2024-07-27 12:54 | PC.CC ---
Addendum entered by Angela Salazar RN 07/27/24 14:28: [id number] Singleton to hold the transfer for now. He stated he will call me if there is any need for transfer. Addendum entered by Angela Salazar RN 07/27/24 13:25: [id number] Singleton and asked if Dr. Santana can do the peg tube since she did the surgery of perforated stomach due to GI ulcer in [facility]. Dr. Singleton stated he will speak to Dr. Santana and call me back. Original Note: [id number] Singleton that pt needs to be transferred for J-tube placement need IR services. Dr. Singleton stated per GI it's complex placement because pt have the history of perforation of stomach due to GI ulcer in [facility] and repair.
--- NOTE | 2024-07-27 15:21 | PC.SS ---
Follow up note: SS sent inquiry to the acute rehab facilities in area as an alternate option. Response pending.
[2024-07-27] MEDS: POTASSIUM CHLORIDE 10% 20 MEQ/15 ML UDC 40 MEQ GT (15:28)
[2024-07-27] MEDS: MIDODRINE 5 MG TABLET PO ×2 (15:29→20:59)
--- NOTE | 2024-07-27 16:01 | ESPR_ITS ---
Documentation for date of: 07/27/24 Subjective Subjective Interval history: Patient was seen and examined at bedside. No acute overnight events. Patient continues to receive nutrition via NG tube. Attempt to discharge patient with NG tube yesterday has failed due to SNF policy. With started placement patient to LTAC. Will continue current management and monitor patient. Exam Vital Signs Temp Pulse Resp BP Pulse Ox O2 Del Method O2 Flow Rate 97.2 F 92 18 98/60 98 Room Air 2 07/27/24 12:00 07/27/24 15:29 07/27/24 12:49 07/27/24 15:29 07/27/24 12:49 07/27/24 12:00 07/26/24 04:00 Narrative Exam Gen: Well-developed and well-nourished female. HEENT: NCAT, PERRLA, EOMI, MMM, anicteric conjunctivae. NJ in place. CVS: normal S1 and S2. Irregularly irregular. No M/R/G. Resp: minimal crackles B/L. No rhonchi, rales or wheezing. Abd: soft, non-tender, non-distended. BS+ in all 4 quadrants. Well healing abdominal scar. MSK: Good ROM in BUE & BLE. No rash. Trace edema BLE. Neuro: CN II-XII grossly intact. Strength 5/5 in BUE & BLE. Alert and oriented x3. Psych: appropriate mood and affect. Objective Labs 07/27/24 04:39 07/27/24 04:39 Labs: Laboratory Results - last 24 hr 07/27/24 04:39 WBC 7.7 RBC 3.90 L Hgb 10.1 L Hct 32.8 L MCV 84 MCH 25.9 MCHC 30.8 L RDW Std Deviation 61.9 H Plt Count 291 Neut % (Auto) 44 Lymph % (Auto) 40 [place] % (Auto) 11 Eos % (Auto) 4 Baso % (Auto) 2 Neut # (Auto) 3.4 Lymph # (Auto) 3.1 [place] # (Auto) 0.8 Eos # (Auto) 0.3 Baso # (Auto) 0.1 Immature Gran # (Auto) 0.05 H Absolute Nucleated RBC 0.03 H Immature Gran % 1 H Nucleated RBC % 0 Sodium 141 Potassium 3.1 L D Chloride 105 Carbon Dioxide 27.1 Anion Gap 9 BUN 25 H Creatinine 0.9 Estim Creat Clear Calc 50.1 L eGFR > 60 BUN/Creatinine Ratio 28 H Glucose 116 H Calculated Osmolality 286 Calcium 9.5 Corrected Calcium 10.0 Phosphorus 3.1 Magnesium 1.7 Albumin 3.4 Quality Measures Quality Measures VTE prophylaxis Advance care planning discussed with:: patient and child Assessment & Plan Assessment Current Active Medications: Generic Name Dose Route Start Last Admin Trade Name Freq PRN Reason Stop Dose Admin Acetaminophen 650 mg 07/23/24 00:02 Acetaminophen 325 Mg Tablet PO 08/11/24 20:32 Q6H PRN Pain 1-3 Or Fever > 101 Hydrocodone Bitart/Acetaminophen 1 tab 07/22/24 23:26 07/26/24 14:25 Hydrocodone/Apap 5/325 Tablet PO 07/27/24 23:25 1 tab Q8H PRN Administration PAIN SCALE 4-10(Mod-Sev Al Hydrox/Mg Hydrox/Simethicone 30 ml 07/12/24 20:51 Mg Hyd/Al Hyd/Ronald (Maalox Reg) Susp 30 Ml Udc PO 08/11/24 20:50 QID PRN UPSET STOMACH/INDIGESTION Albuterol/Ipratropium 3 ml 07/20/24 00:09 07/21/24 03:50 Albuterol/Ipratropium (Duoneb) Rt Jimena 3 Ml Nebu INH 08/19/24 00:08 3 ml Q6HRRT PRN Administration SHORTNESS OF BREATH OR WHEEZE Amiodarone HCl 200 mg 07/12/24 21:00 07/27/24 09:41 Amiodarone Hcl 200 Mg Tablet PO 08/11/24 20:59 200 mg BID ANGELICA Administration Dextrose 50 ml 07/12/24 21:11 07/18/24 17:21 Dextrose 50%-Water Inj 50 Ml Syringe IV 08/11/24 21:10 50 ml Q15MIN PRN Administration BG <50 OR BG <70 & pt unresponsive Enoxaparin Sodium 40 mg 07/20/24 15:45 07/27/24 09:41 Enoxaparin Sod Inj 40 Mg/0.4 Ml Syringe SC 08/03/24 15:44 40 mg QDAY ANGELICA Administration Furosemide 20 mg 07/21/24 09:00 07/27/24 09:42 Furosemide Inj 10 Mg/Ml Vial 2 Ml IVP 08/20/24 08:59 20 mg QDAY ANGELICA Administration Glucagon 1 mg 07/12/24 21:11 Glucagon Inj 1 Mg Vial IM Q15MIN PRN BG <70, and no IV access Insulin Human Lispro 0 unit 07/20/24 06:00 07/27/24 06:13 Insulin Lispro (Admelog) 1 Unit/0.01 Ml Unit SC 08/19/24 05:59 Not Given Q6HR ANGELICA Protocol Melatonin 6 mg 07/19/24 21:00 07/26/24 21:49 Melatonin 3 Mg Tablet PO 08/18/24 20:59 6 mg HS ANGELICA Administration Metoprolol Succinate 50 mg 07/27/24 09:00 07/27/24 09:41 Metoprolol Succinate Xl 25 Mg Tabcr PO 08/26/24 08:59 50 mg QDAY ANGELICA Administration Midodrine 5 mg 07/12/24 22:00 07/27/24 15:29 Midodrine 5 Mg Tablet PO 08/11/24 21:59 5 mg TID ANGELICA Administration Ondansetron HCl 4 mg 07/12/24 20:33 07/24/24 20:35 Ondansetron Inj 2 Mg/Ml Inj 2 Ml IV 08/11/24 20:32 4 mg Q6H PRN Administration NAUSEA OR VOMITING Protocol Pantoprazole Sodium 40 mg 07/13/24 09:30 07/27/24 09:42 Pantoprazole Inj 40 Mg Vial IVP 08/12/24 09:29 40 mg BID ANGELICA Administration Pharmacy Consult 1 each 07/20/24 15:56 Pha To Consult Parenteral Nutr 1 Each Each XX 08/19/24 15:55 PRN PRN CONSULT Sennosides 1 tab 07/12/24 20:44 Senna Tablet PO 08/11/24 20:43 QDAY PRN CONSTIPATION Protocol Sucralfate 1 gm 07/27/24 14:30 07/27/24 15:28 Sucralfate Susp 1 Gm/10 Ml Udc PO 08/26/24 14:29 1 gm QID ANGELICA Administration Plan Summary: The patient is a 69-year-old female with past medical history of diabetes mellitus, hypertension, atrial fibrillation on Eliquis, end-stage renal disease on hemodialysis (MWF), history of gastric ulcers, recent hospitalization [facility] for perforated gastric ulcer status post exploratory laparotomy complicated by recurrent abdominal and pelvic abscesses who presented from rehab with a chief complaint of vomiting. Patient admitted to hospital for further workup for dysphagia poor p.o. intake and possible intervention for adequate nutrition. #Failure to thrive. #Protein Calorie Malnutrition #Nausea and vomiting. #History of gastric ulcers. #Severe gastritis, unspecified. #History of ex lap- recurrent abdominal abscess #?Gastric perforation #Hypophosphatemia, resolved. #Hypokalemia. #s/p NJ tube placement. Per patient's daughter on biomedical photographer of long term home patient has significantly poor p.o. intake, takes only 2-3 bites, unable to maintain a normal appetite. Patient does complain of mild epigastric pain, patient does have history of gastric ulcers recently was admitted to hospital for complicated perforated gastric ulcer. Patient is able to take a few bites but GI Dr. Christianson was consulted, will possibly plan patient for PEG tube if family consents. 07/16/2024- Per nurse this morning, the patient had 1 episode of vomiting after she tried to give her some juice due to hypoglycemia. Labs were reviewed and potassium was attempted to be repleted, but patient had another episode of vomiting. Family still wanting to hold off on PEG tube placement, will touch base with them again as patient is unable to tolerate oral intake at this time 07/17/2024: Pt continues to have nausea with eating, including taking pills. Pt and family will have to make decision with goals of care including PEG tube at this time. 07/19/2024: Patient's family still keeping PEG tube on hold. She was scheduled to have nuclear medicine gastric emptying scan yesterday, however was scheduled for today. Patient is reported to have vomited this morning and has been rescheduled for tomorrow. 07/20/2024- Scheduled to have nuclear medicine gastric emptying scan today, procedure was unable to be done as patient vomited the isotope and no imaging was obtained. We followed up with CT abdomen which showed findings are consistent with gastric ulcer/localized perforation and severe gastritis. General surgeon Dr. Santana consulted, will evaluate the patient. In the interim, we will start the patient on PPN and get consent for likely TPN 07/21/2024- Still has minimal oral intake. She was evaluated by surgeon Dr. Santana this morning who recommends postpyloric feeding with nasoduodenal/nasojejunal tube and family is agreeable. Will consult IR/GI for possible placement. Otherwise, she is still on PPN and clinical condition has remained stable. 07/22/2024- Nurse and family at bedside states that she is eating a little better, no vomiting. She does report intermittent abdominal pain about 8/10 in severity. Postpyloric feeding tube is yet to be done, will follow-up with GI and surgery on other options for placement. In the interim, we will continue IV albumin, PPN and replete electrolytes. 07/24/2024- She complains of some abdominal pain today, nurse at bedside also reports 4 large bowel movements, watery/loose. Tube feeds now at goal, no nausea or vomiting. Labs reviewed, hypokalemia 3.2, will replete. Albumin within normal limits today. 07/25/2024- The patient is seems to be tolerating tube feeds, denies abdominal pain today, no nausea or vomiting. She did have a couple episodes of diarrhea, probably due to new feeds. On examination, abdomen is soft and nontender to palpation. 07/26/2024- No acute overnight events. At bedside today, denies pain, has had no episodes of vomiting. Patient is still running on tube feeds, currently at goal. Conferred with GI as well as rehab physician on plan for dispo, family included. At this time, the patient is unable to be discharged with the NG tube, will continue to monitor her for a few days and see improvements and then reevaluate plan. Plan: - Continue tube feeds. ? GI consulted, appreciate recommendations. ? Protonix 40mg BID. ? Maalox as needed. ? Patient on dronabinol. - General surgery consulted, appreciate recommendations. #Possible refeeding syndrome- resolved. Tube feeds running at 38 cc/h which is goal per dietitian. Labs reviewed, hypophosphatemia and hypomagnesemia. Plan: -Replete electrolytes as needed. #ESBL UTI- treated. On admission, UA was positive for 3+ bacteria and 84 WBCs. Although the patient had no complaints, she was started on IV ceftriaxone for prophylaxis. Urine culture returned positive for ESBL UTI sensitive to IV levofloxacin. Completed a course of IV Levofloxacin. #Hx of afib with RVR, rate controlled. Patient was noted to be in A-fib with RVR in ED, was given diltiazem 20 IV x 1, plan was to start patient on diltiazem drip. Patient's heart rate fluctuating in 90s to 110, no rapid ventricular response noted. Patient does have a history of atrial fibrillation, currently on amiodarone 200 twice daily, metoprolol succinate 25 p.o. daily and Eliquis 5 mg twice daily. Patient's last echo 05/16/2024 shows normal LV size and function, EF 55 to 60%, mild LVH stage I diastolic dysfunction. 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 Mild AV Sclerosis without stenosis. Plan: ? Resumed home dose amiodarone 200 twice daily, metoprolol succinate 25 mg p.o. daily. ? Eliquis on hold. ? Telemonitoring. #Diabetes mellitus. Patient has history of diabetes mellitus, last hemoglobin A1c was 6.3. Plan: ? Sliding scale insulin. ? Resumed home dose Lantus 12 units daily. ? Fingerstick blood glucose, blood glucose goal 140-180. ? Hypoglycemia protocol. #ADILSON on hemodialysis MWF-resolved. Patient received dialysis treatment yesterday, reports of allergic rash postdialysis. Received Benadryl. BUN and creatinine within normal limits. Patient is now off dialysis. Plan: - Dialysis discontinued. ? Resume home dose midodrine. Health maintenance: DVT prophylaxis: Lovenox. GI prophylaxis: IV Protonix. Diet: ND feeds, rate 38cc/hr. Lines: Peripheral IV. Code status: DNR/DNI. Plan of care discussed with attending Dr. Singleton. Miguel Peraza MD, PGY 2. Disclaimer: This note was dictated by speech recognition. Minor errors in bobbin cleaner hand may be present due to voice recognition software. Attending Provider Attestation/Addendum I have discussed and was present for the essential components of the history, physical examination, diagnosis, and treatment plan with the resident. I agree with the patient's care as documented by the resident and amended herein by me. Nato Singleton DO. Although this document has been carefully reviewed, there may still be some phonetic and other typographical errors. These errors are purely grammatical due to imperfections in the software program and should not be construed in any way to compromise the substance of the patient's medical care during this visit.
[2024-07-27] MEDS: MELATONIN 3 MG TABLET 6 MG PO (20:59)
--- NOTE | 2024-07-27 22:22 | ESPR_ITS ---
Documentation for date of: 07/27/24 Subjective Subjective Interval history: group home refused to accept the patient because of the NGT feeding They would like to have a jejunostomy placement without the NGT Case discussed with internal medicine team Transfer center involved to get the patient to a center where IR can do a jejunostomy tube Exam Vital Signs Temp Pulse Resp BP Pulse Ox O2 Del Method O2 Flow Rate 97.1 F 86 18 123/94 H 95 Room Air 2 07/27/24 20:00 07/27/24 20:59 07/27/24 20:00 07/27/24 20:59 07/27/24 20:00 07/27/24 20:00 07/26/24 04:00 Objective Labs 07/27/24 04:39 07/27/24 04:39 Labs: Laboratory Results - last 24 hr 07/27/24 04:39 WBC 7.7 RBC 3.90 L Hgb 10.1 L Hct 32.8 L MCV 84 MCH 25.9 MCHC 30.8 L RDW Std Deviation 61.9 H Plt Count 291 Neut % (Auto) 44 Lymph % (Auto) 40 [place] % (Auto) 11 Eos % (Auto) 4 Baso % (Auto) 2 Neut # (Auto) 3.4 Lymph # (Auto) 3.1 [place] # (Auto) 0.8 Eos # (Auto) 0.3 Baso # (Auto) 0.1 Immature Gran # (Auto) 0.05 H Absolute Nucleated RBC 0.03 H Immature Gran % 1 H Nucleated RBC % 0 Sodium 141 Potassium 3.1 L D Chloride 105 Carbon Dioxide 27.1 Anion Gap 9 BUN 25 H Creatinine 0.9 Estim Creat Clear Calc 50.1 L eGFR > 60 BUN/Creatinine Ratio 28 H Glucose 116 H Calculated Osmolality 286 Calcium 9.5 Corrected Calcium 10.0 Phosphorus 3.1 Magnesium 1.7 Albumin 3.4 Impressions Impression: # Failure to thrive Will work with the transfer center to get patient to a place for IR intervention for placement of a jejunostomy tube Assessment & Plan A&P Narrative # Failure to thrive Plan Case discussed in detail with the ER physician Difficult to put a PEG tube for further management of failure to thrive however will discuss with the family And attempt should be made if they agree To sustain appropriate nutrition for the patient by placement of a PEG tube Other medical problems include 1 end-stage renal disease hemodialysis MWF 2 chronic A-fib on Eliquis 3 status post exploratory laparotomy for perforated gastric ulcer Ramsey's patch and drainage of the subphrenic abscesses by IR drainage Thank you very much for the opportunity to participate in care of this patient Time Spent With Patient Time: Total time spent is greater than 50% in coordination of care (as documented) at patient's floor/unit and/or counseling patient:
[2024-07-28] VITALS (13 sets, daily range): BP systolic 96–131; BP diastolic 43–88; PULSE 64–114; RESP 15–99; TEMP 36.2–36.9; O2SAT 94–99; BMI 12.0
[2024-07-28] MEDS: SUCRALFATE SUSP 1 GM/10 ML UDC PO ×2 (05:45→11:38)
[2024-07-28 06:09] LABS: Magnesium 1.6 mg/dL (1.6-2.6)
[2024-07-28] MEDS: ALBUTEROL/IPRATROPIUM (Duoneb) RT SOL 3 ML NEBU INH (07:12)
[2024-07-28 08:37] LABS: Alanine Aminotransferase 16 U/L (10-49); Albumin, Serum 3.3 gm/dL (3.4-4.8); Albumin/Globulin Ratio 1.7 (1.2-2.2); Alkaline Phosphatase 150 U/L (46-116); Anion Gap 10 (7-16); Aspartate Amino Transferase 34 U/L (0-34); BUN/Creatinine Ratio 34 Ratio (12-20); Bilirubin,Total 0.5 mg/dL (0.3-1.2); Blood Urea Nitrogen 27 mg/dL (9-23); Calcium 9.4 mg/dL (8.3-10.6); Carbon Dioxide 27.5 mMol/L (20.0-31.0); Chloride 106 mMol/L (98-107); Creatinine (Component) 0.8 mg/dL (0.6-1.3); Estimated Creatinine Clearance 56.4 mL/min (>60); Globulin 1.9 gm/dL (2.3-3.5); Glucose 116 mg/dL (74-106); Osmolality,Calculated 291 (275-295); Potassium 4.3 mMol/L (3.4-5.1); Sodium 143 mMol/L (136-145); Total Protein 5.2 gm/dL (5.7-8.2); eGFR > 60 See Note
[2024-07-28] MEDS: FUROSEMIDE INJ 10 MG/ML VIAL 2 ML 20 MG IVP (09:25)
[2024-07-28 09:26] LABS: Basophils # (Auto) 0.1 Thou/mm3 (0.0-0.2); Basophils % (Auto) 1 % (0-2.5); Eosinophils # (Auto) 0.2 Thou/mm3 (0.0-0.5); Eosinophils % (Auto) 2 % (0-10); Hematocrit 32.2 % (36.0-46.0); Hemoglobin 9.8 g/dL (12.0-16.0); Immature Granulocytes % (Auto) 1 % (0-0); Immature Granulocytes Auto 0.04 Thou/mm3 (0.00-0.00); Lymphocytes # (Auto) 3.7 Thou/mm3 (1.0-4.8); Lymphocytes % (Auto) 48 % (10-50); Mean Corpuscular HGB Conc 30.4 g/dl (31.0-37.0); Mean Corpuscular Hemoglobin 25.7 pg (25.0-35.0); Mean Corpuscular Volume 85 fL (80-100); Monocytes # (Auto) 0.7 Thou/mm3 (0.0-0.8); Monocytes % (Auto) 9 % (0-12); Neutrophils % (Auto) 39 % (37-80); Nucleated Red Blood Cell # 0.02 Thou/mm3 (0.00-0.00); Nucleated Red Blood Cell % 0 /100 WBC (0); Platelet Count 280 Thou/mm3 (140-440); RDW Standard Deviation 63.7 fL (36.4-46.3); Red Blood Count 3.81 Miln/mm3 (4.00-5.20); White Blood Count 7.7 Thou/mm3 (3.6-11.0)
[2024-07-28] MEDS: AMIODARONE HCL 200 MG TABLET PO (09:26)
[2024-07-28] MEDS: PANTOPRAZOLE INJ 40 MG VIAL IVP (09:27)
[2024-07-28] MEDS: METOPROLOL SUCCINATE XL 25 MG TABCR 50 MG PO (09:27)
[2024-07-28] MEDS: ENOXAPARIN SOD INJ 40 MG/0.4 ML SYRINGE SC (09:27)
--- NOTE | 2024-07-28 09:44 | PC.SS ---
Addendum entered by Genet Andrews 07/28/24 11:29: SS spoke to physician who had another conversation with family. Family declined home health and now wants to take patient AMA. Family to sign AMA papers Original Note: Follow up note: All LTAC facilities declined. All acute rehab facilities in this area declined. All SnF facilities in area declined. SS spoke to transfer nurse who states that [facility] has agreed to accommodate. SS went in to speak with Jorge cooper, at bedside. Explained that [facility] cannot accommodate in the [place] area as family had originally discussed. Daughter seemed confused about why patient isn't eating. Daughter mentioned that maybe it's all mental. SS explained that physician team will discuss with her again patient's medical status.Daughter confirmed they already received a manual wheelchair that we ordered last week. Daughter to discuss with family. Physician team to update patient and family.
--- NOTE | 2024-07-28 10:33 | ESDS_ITS ---
<Statement entered by Bharath Robertson MD - 07/28/24 10:36> Patient was examined with the team including attending physician. Note reviewed, I agree with the discharge plan as documented. - Bharath Robertson MD PGY2 Disclaimer: The document may contain phonetic/typographic errors due to voice recognition software. These errors are purely due to imperfections in the software program and should not be misconstrued in any way to compromise the substance of the patient's medical care during this visit. Planned Discharge Date 07/28/24 DS: Providers Provider Date of admission: 07/14/24 14:37 Primary care physician: Physician No Primary/Family Admitting Provider: Mike Park MD Attending Provider on Admission: Elio Singleton DO Consults: 07/12/24 19:41 Consult to Gastroenterology Stat Comment: Gastritis Consulting Provider: Bulmaro Christianson 07/12/24 20:40 Referral Speech Therapy Stat Comment: 07/12/24 20:50 Referral Registered Dietitian Stat Comment: 07/12/24 21:22 Consult to Nephrology Routine Comment: Consulting Provider: Murphy August 07/16/24 03:45 Referral Wound Care Routine Comment: bilateral buttocks stage 2 pressure injury 07/20/24 09:54 Referral Physical Therapy Routine Comment: Physician Instructions: 07/20/24 13:47 Consult to General Surgery Routine Comment: Consulting Provider: Emily Santana Attending Provider on DC: Juan Stanley MD Discharging Provider: Juan Stanley MD DS: Diagnosis Problem List Completed Was Problem List Reviewed/Reconciled?: Yes Hospital Course Hospital Course Hospital course: The patient is a 69-year-old female with a past medical history of hypertension, diabetes, A-fib on Eliquis, ADILSON started on hemodialysis, and gastric ulcer status post ex lap ligation, and with a recurrent abdominal and pelvic abscesses who presented from [facility] on 07/12/2024 with complaints of nausea and vomiting as well as poor oral intake. Per facility, the patient had had poor oral intake since discharge and has been unable to maintain an appetite, complicated by nausea and vomiting with every meal. The patient was admitted for further evaluation and management of failure to thrive with protein calorie malnutrition based on low protein and albumin on labs. BUN and creatinine significantly improved and dialysis catheter was discontinued. Patient had ESBL UTI which was treated with a course of levofloxacin. She was initially planned for PEG tube but family declined and wanted to hold off as she was intermittently eating homemade meal. During the course of hospitalization, the patient was tried on multiple diets was unable to tolerate, continue to have occasional vomiting even with homemade meals. Patient complained of abdominal pain and a CT abdomen was done which showed some concern for gastric perforation with edema. GI and surgery were consulted, recommended no surgical intervention. Eventually, the patient had a nasoduodenal tube inserted for feeding and tube feeds are currently at goal rate. Patient has been tolerating tube feeds without nausea or vomiting and has been having regular bowel movements. There was some concern for refeeding syndrome initially and electrolyte abnormalities were corrected. However, as no long-term solution has been forthcoming, family has decided to leave AMA to explore other options with a different facility. #Failure to thrive #Protein caloric malnutrition #History of gastric ulcer status post ex lap #ESBL UTI-treated #History of A-fib with RVR, rate controlled #ADILSON on hemodialysis-resolved Case was discussed with Dr Robertson PGY-2 and attending physician, Dr Areli Stanley MD PGY-1 Disclaimer: This note was dictated by speech recognition. Minor errors in mechanic insulator may be present due to voice recognition software. Status at Discharge Overall status at discharge: patient is not back to baseline Time Spent with Patient Time attestation: Total time spent providing and/or coordinating discharge services:45mins Time spent: Greater than 30 minutes Exam Vital Signs Temp Pulse Resp BP Pulse Ox O2 Del Method O2 Flow Rate 97.7 F 65 17 110/61 99 Room Air 2 07/28/24 07:40 07/28/24 09:27 07/28/24 07:40 07/28/24 09:27 07/28/24 07:40 07/28/24 04:00 07/26/24 04:00 Narrative Exam GENERAL: AAOX3 NEURO: PARK RANGER grossly intact, moves extremities x4 HEENT: Moist mucosa. Eyes open, symmetrical, & clear CARDIO: No chest pain on palpation. Heart RRR, no obvious murmurs PULM: No noted coughing/dyspnea. Lungs CTA B/L GI: Abdomen soft,very minimally distended, no pain on palpation. BSx4. URO/ACADEMIC COUNSELOR:: No further abnormalities noted. SKIN/MSK/EXT: Bilateral pitting edema- resolving Discharge Plan Plan Patient Disposition: Xfer Skilled Nsg Fac (SNF) Care Plan Goals: Follow up with your PCP within 1 week of discharge Continue all medications as prescribed Return to the ED if your symptoms worsen Prescriptions/Referrals Prescriptions/Med Rec: Continued pantoprazole [Protonix] 40 mg tablet,delayed release (DR/EC) 40 mg PO BID Qty: 60 0RF insulin glargine-yfgn 100 unit/mL (3 mL) insulin pen 12 unit subcut QDAY Qty: 15 0RF (DME) pen needle, diabetic [1st Tier Unifine Pentips] 29 gauge x 1/2 needle See Rx Instructions .Route Qty: 100 0RF Rx Instructions: As directed dronabinol 10 mg capsule 10 mg PO BIDAC 30 Days Qty: 60 0RF polyethylene glycol 3350 [HealthyLax] 17 gram Powder In Packet 17 g PO BID PRN (Reason: constipation) 30 Days Qty: 5 0RF hydroxyzine HCl 25 mg tablet 25 mg PO Q8H PRN (Reason: itching) ipratropium-albuterol 0.5 mg-3 mg(2.5 mg base)/3 mL solution for nebulization 3 ml inhalation Q4H PRN (Reason: shortness of breath or wheezing) hydrocodone-acetaminophen 5-325 mg tablet 1 tab PO Q8H PRN (Reason: pain) Rx Instructions: Pain Mod/Severe 5-10 ondansetron HCl 4 mg tablet 4 mg PO Q6H PRN (Reason: nausea and vomiting) amiodarone 200 mg tablet 200 mg PO BID Rx Instructions: Hold if HR <60, Hold on Dialysis days M/F Eliquis 5 mg tablet 5 mg PO BID sennosides [Senna Lax] 8.6 mg Tablet 8.6 mg PO QDAY PRN (Reason: constipation) midodrine 5 mg tablet 5 mg PO TID PRN (Reason: hypotension) Rx Instructions: hold if SBP blood pressure more than 110 acetaminophen 325 mg capsule 650 mg PO Q6H PRN (Reason: pain) guaifenesin [Adult Tussin Chest Congestion] 100 mg/5 mL liquid 200 mg PO Q6H PRN (Reason: cough) bisacodyl [Dulcolax (bisacodyl)] 10 mg Suppository 10 mg MO QDAY PRN (Reason: Constipation) Rx Instructions: To be administered the following shift if MOM is ineffective mirtazapine 15 mg Tablet 15 mg PO HS sodium bicarbonate 650 mg tablet 650 mg PO QDAY Referrals: No Primary/Family,Physician [Primary Care Provider] - Patient/Caregiver Discharge Instructions Other Discharge Activity Instructions:: Follow up with your PCP within 1 week of discharge Continue all medications as prescribed Return to the ED if your symptoms worsen Print Language: Hmong Stand Alone Forms: Kristi Award Info., Patient Portal Info Letter Quality Discharge Quality Measures VTE prophylaxis MD Attestestation Attestation I have discussed and was present for the essential components of the history, physical examination, diagnosis, and treatment plan with the resident. I agree with the patient's care as documented by the resident and amended herein by me. Nato Singleton DO. Per the patient, her designated decision-maker is her daughter Debbie Castellanos, who subsequently has decided to leave with the patient AGAINST MEDICAL ADVICE. In short, in addition to resident note above, patient did have a gastric ulcer and subsequent perforation which was repaired in April 2024 and was aguayo bsequently admitted this visit on 07/12/24 from SNF for nausea, vomiting and poor oral intake overall. CT chest abdomen pelvis on 07/20/2024 demonstrated a gastric ulcer with a localized perforation with associated severe gastritis however general surgeon, Dr. Santana who performed the original exploratory laparotomy with subsequent repair of a perforated gastric ulcer on 05/15/2024, disagreed that there was an actual perforation. Gastroenterology, Dr. Christianson was consulted who initially recommended PEG tube placement and possible transfer to tertiary center for IR placement of a jejunostomy feeding tube due to the fact our interventional radiologist stated he could not do the procedure. Dr. Christianson was also not comfortable performing this procedure in the setting of the complex nature of the patient's ulcers and possible perforation. The family however declined any surgical procedures, further however Dr. Christianson did reach out to [facility] however due to the fact they were at 120% capacity, they would not take the patient regardless. General surgeon, Dr. Santana was able to place an NG tube reaching down to the patient's duodenum which has been in place up to the present time. Considering the family initially did not want any surgical intervention, the decision was made with general surgery and gastroenterology to discharge the patient with the NG tube in place back to SNF at least for a limited time until her stomach had time to heal however no outside facility we have contacted thus far would take the patient with an NGT, to include the nursing facility she came from, acute rehab, or LTAC facilities in the area. We did consider sending the patient on home health with close follow-up with general surgery, however the patient's family was not amenable to that idea considering it was not / care. The family was worried that there may be complications which they may not be equipped to deal with. With the family's permission, I again attempted to pursue transfer to other tertiary facilities for possible jejunostomy tube placement as the patient's decision maker was now amenable to that, however general surgeon, Dr. Santana thought it may be best not to attempt a jejunostomy tube placement at this time considering the inflammation already present in the patient's stomach. She preferred to keep the patient with the NG tube in place, which she stated could be done for up to 6 weeks. Patient has been tolerating tube feeds well and has been tolerating a minimal amount of oral intake as well. The patient has been on sucralfate 1 g p.o. 4 times daily as well as pantoprazole 40 mg IV twice daily. Physical therapy also evaluated the patient and recommended daily physical therapy at SNF to include their exercise, therapy activity, neuromuscular reeducation, gait training and patient and caregiver education. Due to running up against several barriers to discharge and placement issues, I did offer the family the opportunity for a lateral transfer to a tertiary center of their choice however they would need to find an accepting physician themselves as well as pay for the cost of transportation however the patient's daughter and decision maker, Debbie Castellanos decided to take the patient and leave AGAINST MEDICAL ADVICE despite the medical team advising her against this action and the associated risks to include possible of such actions. Patient's family understood the risks and decided to proceed regardless. The patient's current NG tube was removed prior to leaving the hospital.
--- NOTE | 2024-07-28 11:44 | PC.NURSE ---
Notified Dr. Singleton of patient's condition. NGT is plugged and not working. --JA
--- NOTE | 2024-07-28 11:46 | ESPR_ITS ---
Documentation for date of: 07/28/24 Subjective Subjective Interval history: patient is a 69-year-old female with significant past medical history of diabetes mellitus, hypertension, A-fib on Eliquis, ADILSON on hemodialysis, history of gastric ulcers, recent hospitalization in [facility] for perforated gastric ulcer s/p exploratory laparotomy complicated by recurrent abdominal and pelvic abscesses presented from rehab with chief complaint of vomiting. Vomiting is further aggravated by trying to eat, as after taking 2-3 bites she starts vomiting. Denies any fever or chills, headache, chest pain, abdominal pain, any leg swelling. The last hemodialysis and was 1 day ago. During our evaluation, her vitals were stable with soft blood pressure, saturating 92 to 95% on room air. Labs are significant for white count 13.6, hemoglobin 11.8, sodium 139, potassium 4.4, BUN 35, creatinine 1.8, GFR 40, A1c 4.9, corrected calcium 10.2. UA revealed turbid urine, protein 1+, bilirubin 1+, leukocyte esterase positive, WBC 84, bacteria 3+. Chest x-ray significant for mild heart failure pattern. Abdomen/pelvis CT significant for severe gastritis pattern, hyperdense gallbladder with possible pancreatitis. 07/19/2024 patient currently seen in medical floor. In contact isolation room. Still did not get the dialysis catheter removed. Hopefully can be done today. Replaced all electrolytes. Patient came off dialysis. Appetite still remains poor. Noted family did not want feeding tube. Hemoglobin 10.8, platelets 222. Sodium 138, potassium 3.4, creatinine 0.8, calcium 9.6, phosphorus 1.6, magnesium 1.6, LFTs normal, albumin 2.3, PTH 66.7 07/20/2024 patient currently seen in medical floor. In contact isolation room. Still did not get the dialysis catheter removed. Apparently daughter wanted to hold off for dialysis catheter removal due to edema. Tried to reach the daughter but could not today. Will retry tomorrow. Labs showed creatinine 0.8. Albumin significantly low could be causing third spacing. 07/27/2024 patient currently seen in medical floor. Patient seems to be more alert and awake today.-patient needs to have aggressive physical therapy and needs to improve nutritional support. Albumin is extremely low causing third spacing and edema. Added a low-dose diuretic. Patient had dialysis catheter removal. Noted patient was started on tube feeds via NG tube. Potassium 3.1, bicarbonate 27.1, phosphorus 3.1, magnesium 1.7 creatinine 0.9. Patient might be transferred to [facility] for jejunostomy tube placement per Dr. Christianson. 3 seems to have dysphagia and unable to eat. Replace electrolytes. Edema improving. 07/28/2024 patient currently is in medical floor. Remains on NG tube feeds. Awaiting higher level of care. Daughter requesting for her to go to [facility]. Will defer the decision to primary care. Patient's creatinine seems to be better. Will sign off. Thank you for the consult. Review of Systems Review of Systems Narrative Review of Systems: Patient more alert and awake. Denies any chest pain, shortness of breath. Appetite is very poor. Currently has NG tube. Exam Vital Signs Temp Pulse Resp BP Pulse Ox O2 Del Method O2 Flow Rate 36.5 C 65 17 110/61 99 Room Air 2 07/28/24 07:40 07/28/24 09:27 07/28/24 07:40 07/28/24 09:27 07/28/24 07:40 07/28/24 04:00 07/26/24 04:00 Narrative Exam General: No acute distress, patient alert and awake HEENT: Moist mucous membranes, oropharynx clear Neck: Supple, No masses, No JVD CVS: S1S2 Regular rate and rhythm, No murmurs, rubs or gallops Lungs: Clear to auscultation with no accessory use, no wheeze no rhonchi Abd: Soft, NT/ND, +BS, no organomegaly Ext: 1+ edema in the lower extremities Skin: No rash Objective Labs 07/28/24 09:02 07/28/24 04:30 Labs: Laboratory Results - last 24 hr 07/28/24 07/28/24 04:30 09:02 WBC 7.7 RBC 3.81 L Hgb 9.8 L Hct 32.2 L MCV 85 MCH 25.7 MCHC 30.4 L RDW Std Deviation 63.7 H Plt Count 280 Neut % (Auto) 39 Lymph % (Auto) 48 Sampson % (Auto) 9 Eos % (Auto) 2 Baso % (Auto) 1 Neut # (Auto) 3.0 Lymph # (Auto) 3.7 Sampson # (Auto) 0.7 Eos # (Auto) 0.2 Baso # (Auto) 0.1 Immature Gran # (Auto) 0.04 H Absolute Nucleated RBC 0.02 H Immature Gran % 1 H Nucleated RBC % 0 Sodium 143 Potassium 4.3 D Chloride 106 Carbon Dioxide 27.5 Anion Gap 10 BUN 27 H Creatinine 0.8 Estim Creat Clear Calc 56.4 L eGFR > 60 BUN/Creatinine Ratio 34 H Glucose 116 H Calculated Osmolality 291 Calcium 9.4 Corrected Calcium 10.0 Magnesium 1.6 Total Bilirubin 0.5 AST 34 ALT 16 Alkaline Phosphatase 150 H Total Protein 5.2 L Albumin 3.3 L Globulin 1.9 L Albumin/Globulin Ratio 1.7 Assessment & Plan Additional Assessment & Plan Additional Plan: patient is a 69-year-old female with significant past medical history of diabetes mellitus, hypertension, A-fib on Eliquis, ADILSON on hemodialysis MWF, history of gastric ulcers, recent hospitalization in [facility] for perforated gastric ulcer s/p exploratory laparotomy complicated by recurrent abdominal and pelvic abscesses presented from rehab with chief complaint of vomiting. Nephrology consultation was done for further management of ADILSON on hemodialysis. #ADILSON -- was on hemodialysis MWF, improving Patient had ATN while she was admitted to ICU for soft blood pressure on 05/14/2024. Later she was started on hemodialysis for volume overload and oliguria. Presented with BUN 29, creatinine 1.8 and GFR 30, but within the last 3 months or GFR was worsened, gradually has been improving. 07/28/2024 creatinine 0.9- DCed dialysis catheter. Continue with diuretics. Edema improved. -Avoid nephrotoxic drugs -Renal dose modifications proceed with Lasix to improve edema. replace potassium, phosphorus Renal will sign off. #Gastritis #Dysphagia-pending J-tube #Intractable nausea and vomiting #History of gastric ulcers #A-fib with RVR #Diabetes mellitus type II -Management deferred to primary hospitalist team Noted she has NG tube now for tube feeds. Quality - progress note Quality Measures Quality Measures: VTE prophylaxis Reason for Continued Stay Reason for Continued Stay: further monitoring
[2024-07-28] MEDS: MIDODRINE 5 MG TABLET PO (14:32)
--- NOTE | 2024-07-28 16:56 | PC.NURSE ---
DAUGHTER SIGNED AMA PAPER.PATIENT LEFT AMA.
== END 2024-07-28 16:55 | disposition left against medical advice (07) | DRG 391 ==
LOC: SERX 19:43 → SERHOLD 07-13 01:40 → S3NX 07-13 07:04 → SERHOLD 07-14 07:40
PROVIDERS: Emergency Medicine; Internal Medicine; Radiology Diagnostic Radiology; Student in an Organized Health Care Education/Training Program; Admitting Provider Internal Medicine; Emergency Provider Emergency Medicine; Visit Provider Student in an Organized Health Care Education/Training Program
DX: K29.00 Acute gastritis without bleeding (principal); N18.6 End stage renal disease; N17.9 Acute kidney failure, unspecified; E46 Unspecified protein-calorie malnutrition; I13.2 Hypertensive heart and chronic kidney disease with heart failure and with stage 5 chronic kidney disease, or end stage renal disease; I48.20 Chronic atrial fibrillation, unspecified; N39.0 Urinary tract infection, site not specified; Z16.12 Extended spectrum beta lactamase (ESBL) resistance; K62.5 Hemorrhage of anus and rectum; R13.10 Dysphagia, unspecified; E11.649 Type 2 diabetes mellitus with hypoglycemia without coma; R62.7 Adult failure to thrive; E83.42 Hypomagnesemia; E83.39 Other disorders of phosphorus metabolism; E87.6 Hypokalemia; E86.0 Dehydration; E78.5 Hyperlipidemia, unspecified; E88.09 Other disorders of plasma-protein metabolism, not elsewhere classified; E83.52 Hypercalcemia; E11.22 Type 2 diabetes mellitus with diabetic chronic kidney disease; Z79.01 Long term (current) use of anticoagulants; Z87.11 Personal history of peptic ulcer disease; Z99.2 Dependence on renal dialysis; Z68.27 Body mass index [BMI] 27.0-27.9, adult; T78.40XA Allergy, unspecified, initial encounter; R21 Rash and other nonspecific skin eruption; Z66 Do not resuscitate; Z78.9 Other specified health status; Z53.29 Procedure and treatment not carried out because of patient's decision for other reasons; Z79.4 Long term (current) use of insulin; Z98.890 Other specified postprocedural states
CPT/HCPCS: 36415; 71045; 71250; 74018; 74150; 74176; 77001; 78264; 80053; 80069; 81001; 82306; 83036; 83605; 83690; 83735; 83880; 83970; 84100; 84145; 84478; 84484; 85025; 85610; 85730; 87040; 87077; 87081; 87086; 87186; 92526; 92610; 93005; 94640; 94762; 96374; 96375; 97162; 99285; A4649; A9270; A9541; G0378; J0696; J1200; J1650; J1940; J1956; J2405; J2470; J2765; J2919; J3411; J3475; J3480; J3490; J7030; J7040; J7042; J7050; J7120; J7999; P9047; Q0167